=== PATIENT | male | born 1955 | race Caucasian/White ===

== ENCOUNTER 2023-04-03 13:41 | Emergency (ER) | payer OTHER, MEDICARE, SELFPAY ==
[2023-04-03 13:55] VITALS: BP 111/74; PULSE 86; RESP 26; TEMP 36.7; O2SAT 94; BMI 28.8
--- NOTE | 2023-04-03 14:08 | ECG_ITS ---
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1955 Requested By: Order Number: [id number] Reading MD: LOUISE MAURER Measurements Intervals [place] Rate: 92 P: 45 OK: 224 QRS: -87 QRSD: 134 T: 36 QT: 374 QTc: 424 Interpretive Statements 1100 Sinus rhythm 72030 Cannot rule out atrial flutter 2231 First degree AV block 2450 Right bundle branch block 2630 Left anterior fascicular block 5220 Possible left ventricular hypertrophy 6220 Possible left atrial enlargement Consistent with trifascicular block 0102 ARTIFACT PRESENT 9150 abnormal ECG No previous ECG available for comparison Electronically Signed On 04-03-2023 22:50:52 EDT by LOUISE MAURER
--- NOTE | 2023-04-03 14:08 | XR_ITS ---
The [address] [address] Patient Name: EVGENY DELGADO MRN: [id number] date: 1955 Sex: M Assigned Patient Location: ER Current Patient Location: ER Accession/Order Number: [id number] Exam Date: 04/03/2023 14:18 Report Date: 04/03/2023 14:58 At the request of: ANALY YOU Procedure: XR chest 1V EXAMINATION: XR chest 1V HISTORY: Shortness of breath COMPARISON: No relevant comparison available. TECHNIQUE: AP portable FINDINGS: LUNGS: No significant pulmonary parenchymal abnormalities. VASCULATURE: No increased pulmonary vasculature. PLEURA: No pneumothorax, effusion, or pleural thickening. Moderate elevation the right hemidiaphragm CARDIAC: No cardiomegaly or cardiac silhouette abnormality. MEDIASTINUM: No visible mass or adenopathy. BONES: No fracture or visible bone lesion. OTHER: Negative. IMPRESSION: Stable elevation of the right hemidiaphragm Clear lungs Electronically authenticated by: NAIMA VANEGAS Date: 04/03/2023 14:58
--- NOTE | 2023-04-03 14:11 | ED.SOB1 ---
Documented by User: RAUL Vincent 04/03/23 15:59 HPI - SOB/Dyspnea General Chief Complaint: Shortness of Breath/Dyspnea Stated Complaint: SHORTNESS OF BREATH Time Seen by Provider: 04/03/23 13:57 Source: patient and family Mode of arrival: walk-in Limitations: no limitations History of Present Illness HPI Narrative: Patient is a 68-year-old male history of muscular dystrophy, congestive heart failure who presents to the emergency department with his for a four day history of shortness of breath, chest congestion and sputum production. He was started on an antibiotic by his PCP without being seen in the office and has been taking doxycycline twice a day for last three days. He denies fevers, chest pain. He has had yellow sputum production with coughing and minimal soreness in the chest with coughing only. No sick contacts in the home. He states he has no appointment with a screwhead stoner and polisher in [place] at [facility] in two days for evaluation of his aortic valve which was recently diagnosed as severe stenosis. He had a heart catheterization last fall that was unremarkable. His feels his legs are swollen in the last several days. He takes 20 mg of Lasix daily. Related Data Home Medications Medication Instructions Recorded Confirmed allopurinol 300 mg tablet mg 04/03/23 aspirin 81 mg tablet,delayed mg 04/03/23 release atorvastatin 40 mg tablet mg 04/03/23 doxycycline hyclate 100 mg capsule mg 04/03/23 furosemide 20 mg tablet mg 04/03/23 glyburide micronized 3 mg tablet mg 04/03/23 metformin 500 mg tablet mg 04/03/23 metoprolol succinate 50 mg mg PO 04/03/23 tablet,extended release 24 hr omeprazole 20 mg capsule,delayed mg 04/03/23 release sacubitril 24 mg-valsartan 26 mg 1 tab PO BID 04/03/23 04/03/23 tablet (Entresto) Allergies Allergy/AdvReac Type Severity Reaction Status Date / Time acetaminophen [From Vicodin] Allergy Verified 04/03/23 14:14 Cephalosporins Allergy Verified 04/03/23 14:14 ciprofloxacin [From Cipro] Allergy Verified 04/03/23 14:14 hydrocodone [From Vicodin] Allergy Verified 04/03/23 14:14 levofloxacin Allergy Verified 04/03/23 14:14 oseltamivir [From Tamiflu] Allergy Verified 04/03/23 14:14 oxycodone Allergy Verified 04/03/23 14:14 Penicillins Allergy Verified 04/03/23 14:14 sitagliptin [From Januvia] Allergy Verified 04/03/23 14:14 Review of Systems ROS Constitutional Denies: fever or chills Cardiovascular Denies: chest pain Respiratory Reports: shortness of breath and cough Gastrointestinal Denies: nausea or vomiting Integumentary/Breast Denies: rash PFSH PFSH Social History Smoking status: Former smoker Exam Constitutional Vital Signs - 24 hr 04/03/23 13:55 Temperature 98.1 F Pulse Rate [Monitor] 86 Respiratory Rate 26 H Blood Pressure [Left Arm] 111/74 Pulse Oximetry 94 L Oxygen Delivery Method Room Air Common normals: no apparent distress Orientation/consciousness: Yes awake HENMT Common normals: normocephalic Respiratory Common normals: normal respiratory effort (Patient in no respiratory distress, breathing and speaking easily) Effort & inspection: able to speak in complete sentences (Scattered rhonchi, no wheezing) Cardio Common normals: regular rate and regular rhythm GI Common normals: soft to palpation and non-tender Extremity General: atrophy (Atrophy bilaterally of the legs with splints in place) and edema (1+ pitting pedal edema to the bilateral legs) Neuro Common normals: no focal motor deficits Psych Common normals: mental status grossly normal and thought process normal Course Vital Signs Vital signs: Vital Signs Temperature 98.1 F 04/03/23 13:55 Pulse Rate 86 04/03/23 13:55 Respiratory Rate 26 H 04/03/23 13:55 Blood Pressure 111/74 04/03/23 13:55 Pulse Oximetry 94 L 04/03/23 13:55 Oxygen Delivery Method Room Air 04/03/23 13:55 Temperature 98.1 F 04/03/23 13:55 Pulse Rate 86 04/03/23 13:55 Respiratory Rate 26 H 04/03/23 13:55 Blood Pressure 111/74 04/03/23 13:55 Pulse Oximetry 94 L 04/03/23 13:55 Oxygen Delivery Method Room Air 04/03/23 13:55 MDM - SOB/Dyspnea MDM Narrative Medical decision making narrative: Patient had no complaints of pain or nausea in the Emergency Room with stable oxygen saturation. Full cardiac workup with BNP, chest x-ray was ordered and the patient was not found to have any type of acute cardiopulmonary process, BUN is stable, improved from previous. BNP is normal. No EKG changes noted at this time. Patient was reevaluated by attending physician, chest x-ray shows no evidence of acute process, patient with no tachycardia or hypoxia in the Emergency Room. Was recommended that he increase his Lasix to 40 mg daily for the next three days and follow-up with cardiology as scheduled. Return to the emergency department if symptoms change or worsen Medical Records Attestation: I reviewed the patient's medical records. Lab Data Attestation: I reviewed the patient's lab results. Labs: Lab Results 04/03/23 04/03/23 Range/Units 14:10 14:30 WBC 9.8 (4.0-11.0) 10^3/uL RBC 4.69 L (4.70-6.10) 10^6/uL Hgb 15.1 (14.0-18.0) g/dL Hct 47.8 (42.0-54.0) % MCV 101.9 H (80.0-94.0) fL MCH 32.2 (25.9-34.0) pg MCHC 31.6 (29.9-35.2) g/dL RDW 13.6 (11.0-15.0) % Plt Count 195 (150-450) 10^3/uL MPV 10.5 (9.5-13.5) fL Neut % (Auto) 74.3 (43.0-75.0) % Lymph % (Auto) 18.2 L (20.5-60.0) % [place] % (Auto) 6.0 (1.7-12.0) % Eos % (Auto) 1.0 (0.9-7.0) % Baso % (Auto) 0.2 (0.2-2.0) % Neut # (Auto) 7.3 H (1.4-6.5) 10^3/uL Lymph # (Auto) 1.8 (1.2-3.8) 10^3/uL [place] # (Auto) 0.6 (0.3-0.8) 10^3/uL Eos # (Auto) 0.1 (0.0-0.7) 10^3/uL Baso # (Auto) 0.0 (0.0-0.1) 10^3/uL Abs Immat Gran (auto) 0.03 (0.00-0.03) 10^3/uL Imm/Tot Granulo (auto) 0.3 (0.0-0.5) % PT 10.7 (9.0-11.6) sec INR 1.01 APTT 29.0 (22.3-36.2) sec Sodium 139 (136-145) mmol/L Potassium 4.1 (3.5-5.1) mmol/L Chloride 98 (98-107) mmol/L Carbon Dioxide 33.2 H (21.0-32.0) mmol/L Anion Gap 11.9 BUN 28.0 H (7.0-18.0) mg/dL Creatinine 0.75 (0.70-1.30) mg/dL Est GFR ( Amer) >60 (>=60) Est GFR (Non-Af Amer) >60 (>=60) BUN/Creatinine Ratio 37.3 Glucose 176 H (74-106) mg/dL Calcium 9.2 (8.5-10.1) mg/dL Total Bilirubin 0.8 (0.2-1.0) mg/dL AST 21 (15-37) U/L ALT 33 (16-63) U/L Alkaline Phosphatase 112 (46-116) U/L Troponin I High Sens 8.7 (4.0-76.1) pg/mL NT-Pro-B Natriuret Pep 147.0 (<=900.0) pg/mL Total Protein 7.9 (6.4-8.2) g/dL Albumin 3.5 (3.4-5.0) g/dL Globulin 4.4 g/dL Albumin/Globulin Ratio 0.8 Urine Color Lt. yellow (YELLOW) Urine Clarity Clear (CLEAR) Urine pH 5.5 (5.0-9.0) Ur Specific [place] 1.020 (1.005-1.025) Urine Protein Negative (NEG/TRACE) mg/dL Urine Glucose (UA) Negative (NEGATIVE) mg/dL Urine Ketones Negative (NEGATIVE) mg/dL Urine Occult Blood Negative (NEGATIVE) Urine Nitrite Negative (NEGATIVE) Urine Bilirubin Negative (NEGATIVE) Urine Urobilinogen 0.2 (0.2-1.0) EU/dL Ur Leukocyte Esterase Negative (NEGATIVE) Imaging Data Chest x-ray: Attestation: I personally reviewed and interpreted this imaging study as follows: Radiologist's impression: EVGENY DELGADO MRN: [id number] date: 1955 Sex: M Assigned Patient Location: ER Current Patient Location: ER Accession/Order Number: [id number] Exam Date: 04/03/2023 14:18 Report Date: 04/03/2023 14:58 At the request of: ANALY YOU Procedure: XR chest 1V EXAMINATION: XR chest 1V HISTORY: Shortness of breath COMPARISON: No relevant comparison available. TECHNIQUE: AP portable FINDINGS: LUNGS: No significant pulmonary parenchymal abnormalities. VASCULATURE: No increased pulmonary vasculature. PLEURA: No pneumothorax, effusion, or pleural thickening. Moderate elevation the right hemidiaphragm CARDIAC: No cardiomegaly or cardiac silhouette abnormality. MEDIASTINUM: No visible mass or adenopathy. BONES: No fracture or visible bone lesion. OTHER: Negative. IMPRESSION: Stable elevation of the right hemidiaphragm Clear lungs Electronically authenticated by: NAIMA VANEGAS Date: 04/03/2023 14:58 ECG Data Attestation: I personally reviewed and interpreted this ECG as follows: (Normal sinus rhythm at a rate of ninety-two, first-degree AV block and no acute ST elevation. No ectopy. EKG compared to 06/25/22 with no change. EKG reviewed by attending physician) ECG interpretation date: 04/03/23 ECG interpretation time: 15:57 Discharge Plan Discharge Chief Complaint: Shortness of Breath/Dyspnea Clinical Impression: Acute dyspnea Time of Disposition Decision: 15:58 Condition: Good Prescriptions / Home Meds: No Action atorvastatin 40 mg tablet metformin 500 mg tablet doxycycline hyclate 100 mg capsule metoprolol succinate 50 mg tablet extended release 24 hr PO aspirin 81 mg tablet,delayed release (DR/EC) omeprazole 20 mg capsule,delayed release(DR/EC) allopurinol 300 mg tablet furosemide 20 mg tablet glyburide micronized 3 mg tablet Entresto 24-26 mg tablet 1 tab PO BID Additional Instructions: Take 40mg of Lasix for 3 days Stand Alone Forms: Portal Instructions Referrals: MARCO JOSEPH [Primary Care Provider] - 1 week Documented by User: Ian Ruelas 04/03/23 16:04 HPI - SOB/Dyspnea General Chief Complaint: Shortness of Breath/Dyspnea Stated Complaint: SHORTNESS OF BREATH Time Seen by Provider: 04/03/23 13:57 Related Data Home Medications Medication Instructions Recorded Confirmed allopurinol 300 mg tablet mg 04/03/23 aspirin 81 mg tablet,delayed mg 04/03/23 release atorvastatin 40 mg tablet mg 04/03/23 doxycycline hyclate 100 mg capsule mg 04/03/23 furosemide 20 mg tablet mg 04/03/23 glyburide micronized 3 mg tablet mg 04/03/23 metformin 500 mg tablet mg 04/03/23 metoprolol succinate 50 mg mg PO 04/03/23 tablet,extended release 24 hr omeprazole 20 mg capsule,delayed mg 04/03/23 release sacubitril 24 mg-valsartan 26 mg 1 tab PO BID 04/03/23 04/03/23 tablet (Entresto) Allergies Allergy/AdvReac Type Severity Reaction Status Date / Time acetaminophen [From Vicodin] Allergy Verified 04/03/23 14:14 Cephalosporins Allergy Verified 04/03/23 14:14 ciprofloxacin [From Cipro] Allergy Verified 04/03/23 14:14 hydrocodone [From Vicodin] Allergy Verified 04/03/23 14:14 levofloxacin Allergy Verified 04/03/23 14:14 oseltamivir [From Tamiflu] Allergy Verified 04/03/23 14:14 oxycodone Allergy Verified 04/03/23 14:14 Penicillins Allergy Verified 04/03/23 14:14 sitagliptin [From Januvia] Allergy Verified 04/03/23 14:14 PFSH PFSH Social History Smoking status: Former smoker Exam Constitutional Vital Signs - 24 hr 04/03/23 13:55 Temperature 98.1 F Pulse Rate [Monitor] 86 Respiratory Rate 26 H Blood Pressure [Left Arm] 111/74 Pulse Oximetry 94 L Oxygen Delivery Method Room Air Course Vital Signs Vital signs: Vital Signs Temperature 98.1 F 04/03/23 13:55 Pulse Rate 86 04/03/23 13:55 Respiratory Rate 26 H 04/03/23 13:55 Blood Pressure 111/74 04/03/23 13:55 Pulse Oximetry 94 L 04/03/23 13:55 Oxygen Delivery Method Room Air 04/03/23 13:55 Temperature 98.1 F 04/03/23 13:55 Pulse Rate 86 04/03/23 13:55 Respiratory Rate 26 H 04/03/23 13:55 Blood Pressure 111/74 04/03/23 13:55 Pulse Oximetry 94 L 04/03/23 13:55 Oxygen Delivery Method Room Air 04/03/23 13:55 MDM - SOB/Dyspnea MDM Narrative Medical decision making narrative: Patient had no complaints of pain or nausea in the Emergency Room with stable oxygen saturation. Full cardiac workup with BNP, chest x-ray was ordered and the patient was not found to have any type of acute cardiopulmonary process, BUN is stable, improved from previous. BNP is normal. No EKG changes noted at this time. Patient was reevaluated by attending physician, chest x-ray shows no evidence of acute process, patient with no tachycardia or hypoxia in the Emergency Room. Was recommended that he increase his Lasix to 40 mg daily for the next three days and follow-up with cardiology as scheduled. Return to the emergency department if symptoms change or worsen For this patient encounter I reviewed the mid-level provider?s documentation, medical decision-making and treatment plan, and I personally spent time with this patient. Shared APC visit, physician attestation: [id number]: This visit was performed by both a physician and an APC. I personally evaluated and examined the patient. I performed all aspects of MDM as documented. Lab Data Labs: Lab Results 04/03/23 04/03/23 Range/Units 14:10 14:30 WBC 9.8 (4.0-11.0) 10^3/uL RBC 4.69 L (4.70-6.10) 10^6/uL Hgb 15.1 (14.0-18.0) g/dL Hct 47.8 (42.0-54.0) % MCV 101.9 H (80.0-94.0) fL MCH 32.2 (25.9-34.0) pg MCHC 31.6 (29.9-35.2) g/dL RDW 13.6 (11.0-15.0) % Plt Count 195 (150-450) 10^3/uL MPV 10.5 (9.5-13.5) fL Neut % (Auto) 74.3 (43.0-75.0) % Lymph % (Auto) 18.2 L (20.5-60.0) % [place] % (Auto) 6.0 (1.7-12.0) % Eos % (Auto) 1.0 (0.9-7.0) % Baso % (Auto) 0.2 (0.2-2.0) % Neut # (Auto) 7.3 H (1.4-6.5) 10^3/uL Lymph # (Auto) 1.8 (1.2-3.8) 10^3/uL [place] # (Auto) 0.6 (0.3-0.8) 10^3/uL Eos # (Auto) 0.1 (0.0-0.7) 10^3/uL Baso # (Auto) 0.0 (0.0-0.1) 10^3/uL Abs Immat Gran (auto) 0.03 (0.00-0.03) 10^3/uL Imm/Tot Granulo (auto) 0.3 (0.0-0.5) % PT 10.7 (9.0-11.6) sec INR 1.01 APTT 29.0 (22.3-36.2) sec Sodium 139 (136-145) mmol/L Potassium 4.1 (3.5-5.1) mmol/L Chloride 98 (98-107) mmol/L Carbon Dioxide 33.2 H (21.0-32.0) mmol/L Anion Gap 11.9 BUN 28.0 H (7.0-18.0) mg/dL Creatinine 0.75 (0.70-1.30) mg/dL Est GFR ( Amer) >60 (>=60) Est GFR (Non-Af Amer) >60 (>=60) BUN/Creatinine Ratio 37.3 Glucose 176 H (74-106) mg/dL Calcium 9.2 (8.5-10.1) mg/dL Total Bilirubin 0.8 (0.2-1.0) mg/dL AST 21 (15-37) U/L ALT 33 (16-63) U/L Alkaline Phosphatase 112 (46-116) U/L Troponin I High Sens 8.7 (4.0-76.1) pg/mL NT-Pro-B Natriuret Pep 147.0 (<=900.0) pg/mL Total Protein 7.9 (6.4-8.2) g/dL Albumin 3.5 (3.4-5.0) g/dL Globulin 4.4 g/dL Albumin/Globulin Ratio 0.8 Urine Color Lt. yellow (YELLOW) Urine Clarity Clear (CLEAR) Urine pH 5.5 (5.0-9.0) Ur Specific [place] 1.020 (1.005-1.025) Urine Protein Negative (NEG/TRACE) mg/dL Urine Glucose (UA) Negative (NEGATIVE) mg/dL Urine Ketones Negative (NEGATIVE) mg/dL Urine Occult Blood Negative (NEGATIVE) Urine Nitrite Negative (NEGATIVE) Urine Bilirubin Negative (NEGATIVE) Urine Urobilinogen 0.2 (0.2-1.0) EU/dL Ur Leukocyte Esterase Negative (NEGATIVE) Discharge Plan Discharge Chief Complaint: Shortness of Breath/Dyspnea Clinical Impression: Acute dyspnea Time of Disposition Decision: 15:58 Condition: Good Prescriptions / Home Meds: No Action atorvastatin 40 mg tablet metformin 500 mg tablet doxycycline hyclate 100 mg capsule metoprolol succinate 50 mg tablet extended release 24 hr PO aspirin 81 mg tablet,delayed release (DR/EC) omeprazole 20 mg capsule,delayed release(DR/EC) allopurinol 300 mg tablet furosemide 20 mg tablet glyburide micronized 3 mg tablet Entresto 24-26 mg tablet 1 tab PO BID Additional Instructions: Take 40mg of Lasix for 3 days Stand Alone Forms: Portal Instructions Referrals: MARCO JOSEPH [Primary Care Provider] - 1 week
[2023-04-03 14:21] LABS: Basophils Percent Auto 0.2 % (0.2-2.0); Eosinophils Absolute Auto 0.1 10^3/uL (0.0-0.7); Hematocrit 47.8 % (42.0-54.0); Hemoglobin 15.1 g/dL (14.0-18.0); Immature Granulocytes Abs Auto 0.03 10^3/uL (0.00-0.03); Immature Granulocytes Pct Auto 0.3 % (0.0-0.5); Lymphocytes Absolute Auto 1.8 10^3/uL (1.2-3.8); Lymphocytes Percent Auto 18.2 % (20.5-60.0); Mean Corpuscular HGB Conc 31.6 g/dL (29.9-35.2); Mean Corpuscular Hemoglobin 32.2 pg (25.9-34.0); Mean Corpuscular Volume 101.9 fL (80.0-94.0); Mean Platelet Volume 10.5 fL (9.5-13.5); Monocytes Absolute Auto 0.6 10^3/uL (0.3-0.8); Neutrophils Absolute Auto 7.3 10^3/uL (1.4-6.5); Neutrophils Percent Auto 74.3 % (43.0-75.0); Platelet Count 195 10^3/uL (150-450); Red Blood Count 4.69 10^6/uL (4.70-6.10); Red Cell Distribution Width 13.6 % (11.0-15.0); White Blood Count 9.8 10^3/uL (4.0-11.0)
[2023-04-03 14:41] LABS: Alanine Aminotransferase 33 U/L (16-63); Albumin Globulin Ratio 0.8; Albumin Level 3.5 g/dL (3.4-5.0); Alkaline Phosphatase 112 U/L (46-116); Anion Gap 11.9; Aspartate Amino Transferase 21 U/L (15-37); BUN Creatinine Ratio 37.3; Bilirubin Total 0.8 mg/dL (0.2-1.0); Calcium 9.2 mg/dL (8.5-10.1); Carbon Dioxide 33.2 mmol/L (21.0-32.0); Chloride 98 mmol/L (98-107); Estimated GFR (African America >60 (>=60); Estimated GFR (Non-African Ame >60 (>=60); Globulin 4.4 g/dL; Glucose 176 mg/dL (74-106); Potassium 4.1 mmol/L (3.5-5.1); Sodium 139 mmol/L (136-145); Total Protein 7.9 g/dL (6.4-8.2); Troponin I High Sensitivity 8.7 pg/mL (4.0-76.1)
[2023-04-03 14:47] LABS: Bilirubin Urine NEGATIVE (NEGATIVE); Blood Urine NEGATIVE (NEGATIVE); Clarity Urine CLEAR (CLEAR); Color Urine LT. YELLOW (YELLOW); Glucose Urine UA NEGATIVE (NEGATIVE); Ketones Urine NEGATIVE (NEGATIVE); Leukocyte Esterase Urine NEGATIVE (NEGATIVE); Nitrite Urine NEGATIVE (NEGATIVE); Protein Urine NEGATIVE (NEG/TRACE); Urobilinogen Urine 0.2 EU/dL (0.2-1.0); pH Urine 5.5 (5.0-9.0)
[2023-04-03 14:51] LABS: Urine Microscopic Indicated NO
[2023-04-03 14:55] LABS: INR 1.01; Prothrombin Time 10.7 sec (9.0-11.6)
== END 2023-04-03 16:28 | disposition home or self-care (01) ==
PROVIDERS: Physician Assistant; Emergency Provider Emergency Medicine; PCP Family Medicine
DX: R06.00 Dyspnea, unspecified (principal); G71.00 Muscular dystrophy, unspecified; I50.9 Heart failure, unspecified; I35.0 Nonrheumatic aortic (valve) stenosis; Z79.899 Other long term (current) drug therapy; Z79.82 Long term (current) use of aspirin; Z79.84 Long term (current) use of oral hypoglycemic drugs; Z87.891 Personal history of nicotine dependence
CPT/HCPCS: 36415; 71045; 80053; 81003; 83880; 84484; 85025; 85610; 85730; 93005; 99285

== ENCOUNTER 2023-04-26 16:21 | Outpatient (OUT) | payer OTHER, MEDICARE, SELFPAY ==
--- NOTE | 2023-04-26 16:23 | XR_ITS ---
The [address] [address] Patient Name: EVGENY DELGADO MRN: [id number] date: 1955 Sex: M Assigned Patient Location: RAD Current Patient Location: RAD Accession/Order Number: [id number] Exam Date: 04/26/2023 16:30 Report Date: 04/26/2023 16:44 At the request of: NON-STAFF PHYSICIAN Procedure: XR chest 2V EXAM: XR chest 2V HISTORY: Decreased breath sounds R06.89 COMPARISON: 06/25/2022 TECHNIQUE: Upright PA and lateral chest x-ray FINDINGS: The heart is not enlarged and the vasculature is not distended. A small amount of atelectasis or scarring is seen at the left lung base. There is been interval clearing of the right lung base. No acute infiltrate, effusion or pneumothorax is identified. The osseous structures are grossly intact. XR/XR chest 2V IMPRESSION: No apparent acute infiltrate or evidence of cardiac decompensation. There has been interval improvement of aeration at the right lung base, and interval development of linear atelectasis or scarring at the left lung base. Electronically authenticated by: ASHKAN SANCHEZ Date: 04/26/2023 16:44
== END 2023-04-26 16:22 | disposition home or self-care (01) ==
LOC: RAD 16:21
PROVIDERS: PCP Family Medicine
DX: R06.89 Other abnormalities of breathing (principal)
CPT/HCPCS: 71046

== ENCOUNTER 2023-05-26 13:06 | Outpatient (OUT) | payer OTHER, MEDICARE, SELFPAY ==
--- NOTE | 2023-05-26 13:12 | FL_ITS ---
The [address] [address] Patient Name: EVGENY DELGADO MRN: [id number] date: 1955 Sex: M [facility] Accession/Order Number: [id number] Exam Date: 05/26/2023 13:20 Report Date: 05/26/2023 15:04 At the request of: FIDE MOORE Procedure: FL fluoroscopy <1hr EXAMINATION: FL fluoroscopy <1hr HISTORY: J98.6 ; elevated right hemidiaphragm, decreased breath sounds COMPARISON: XR chest 04/26/2023 FLUOROSCOPY TIME: Fluoro time measures 35 seconds and 1 images were obtained. TECHNIQUE: Standard level fluoroscopic mode of operation utilized. FINDINGS: Very little movement of either diaphragm during rapid inspiration (sniff), but there does appear to be abnormal paradoxical movement of the right diaphragm. FL/FL fluoroscopy <1hr IMPRESSION: 1. Very little movement of either diaphragm, but suspect abnormal movement of right diaphragm which would suggest paralysis. Electronically authenticated by: MARCO CHA Date: 05/26/2023 15:04
== END 2023-05-26 13:07 | disposition home or self-care (01) ==
LOC: FL 13:07
PROVIDERS: PCP Family Medicine; Visit Provider Internal Medicine
DX: J98.6 Disorders of diaphragm (principal)
CPT/HCPCS: 76000

== ENCOUNTER 2023-05-30 11:09 | Outpatient (OUT) | payer OTHER, MEDICARE, SELFPAY ==
--- NOTE | 2023-05-18 | RT_ITS ---
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 Findings were considered accurate and reproducible. Both pre- and post-bronchodilator values utilized for spirometry. Spirometry and DLCO were done at [place] [facility] in [facility] 04/19/2023 and are available for comparison. Spirometry (based on pre-bronchodilator values): -FEV1/FVC: Normal @ 88% -FEV1: Moderately reduced @ 54% (1.69L) -FVC: Very severely reduced @ 46% (1.92L) -There is no significant bronchodilator response. -MVV: Reduced @ 48% Lung volumes by plethysmography: -RV: Normal @ 87% -TLC: Severely reduced @ 58% Diffusion capacity: -DLCO: Severe reduction @ 47% when corrected for Hb 15.1g/dL Flow-volume loop: -Severe restrictive pattern Comparison from 04/19/2023 @ [place]: -Spirometry: FEV1 40% (1.34L) and FVC 37% (1.64L) -DLCO: 46% Impressions: -Severe restriction on spirometry, confirmed with severely reduced TLC. Reduced MVV suggests neuromuscular fatigue. Severe diffusion impairment. When compared to prior spirometry 1 month ago, there is mild improvement; DLCO unchanged. Overall study would correlate with history of muscular dystrophy - reduced DLCO may indicate concomitant cardiopulmonary vascular or interstitial lung component. Clinical correlation required. Electronically Signed On 05-18-2023 15:27:56 EDT by Nelson Church
[2023-05-18 13:20] LABS: ABG PCO2 49.9 mmHg (35.0-45.0); Allen Test POSITIVE (POSITIVE); HCO3 ABG 32.5 mmol/L (22.0-26.0); O2 Mode RA; Oxygen Saturation ABG 91.1 %; PO2 ABG 59.6 mmHg (80.0-100.0); Puncture Site RR; pH ABG 7.422 (7.350-7.450)
[2023-05-18 14:20] VITALS: PULSE 92; O2SAT 96
[2023-05-18] MEDS: ALBUTEROL SULFATE 2.5 MG/3 ML VIAL NEB IH (14:20)
== END 2023-05-30 11:10 | disposition home or self-care (01) ==
LOC: CARD 11:09
PROVIDERS: PCP Family Medicine; Visit Provider Internal Medicine
DX: J96.12 Chronic respiratory failure with hypercapnia (principal); J96.11 Chronic respiratory failure with hypoxia; R06.02 Shortness of breath; G71.02 Facioscapulohumeral muscular dystrophy
CPT/HCPCS: 36600; 82805; 94060; 94726; 94729

== ENCOUNTER 2023-11-07 14:22 | Outpatient (OUT) | payer OTHER, MEDICARE, SELFPAY ==
[2023-11-07 15:28] LABS: Estimated Average Glucose 180 mg/dL; Glycohemoglobin A1C 7.9 % (4.5-6.2)
== END 2023-11-07 14:23 | disposition home or self-care (01) ==
LOC: LAB 14:22
PROVIDERS: PCP Family Medicine; Visit Provider Family Medicine
DX: E11.8 Type 2 diabetes mellitus with unspecified complications (principal)
CPT/HCPCS: 36415; 83036

== ENCOUNTER 2024-03-07 10:42 | Outpatient (OUT) | payer OTHER, MEDICARE, SELFPAY ==
[2024-03-07 12:21] LABS: Estimated Average Glucose 183 mg/dL
== END 2024-03-07 10:43 | disposition home or self-care (01) ==
LOC: LAB 10:42
PROVIDERS: PCP Family Medicine; Visit Provider Family Medicine
DX: E11.8 Type 2 diabetes mellitus with unspecified complications (principal)
CPT/HCPCS: 36415; 83036

== ENCOUNTER 2024-07-17 10:43 | Outpatient (OUT) | payer OTHER, MEDICARE, SELFPAY ==
--- OUTSIDE RECORDS SUMMARY | 2024-07-17 11:00 | XMS_ITS | CCD ---
Author Organization [facility] Care Team Providers Care Well Puller Name Role Phone Unavailable Primary Care Provider UnavailPAYAL Garcia Attending Unavailable MARCO BOSCH Primary Care Unavailable GEORGE NIETO Referring Unavailable ANDI LICEA Admitting Unavailable DO Marco Bosch Primary Care Provider MD George Nieto Attending Provider HIRO, DR LARA Primary Care Unavailable GAURAV, DR FABIAN Parada Consulting Unavailable LAMBERTO ., DR PLEITEZ Attending Unavailable LAMBERTO ., DR PLEITEZ Admitting Unavailable HOY ., DR PLEITEZ Consulting Unavailable GUERITA MAJOR Consulting Unavailable FALVO, JULIOCESAR Consulting Unavailable HIRO, DR LARA Primary Care Unavailable AYNA, DR CAROL Alcaraz Attending Unavailable KWAME ., DR GEORGE Angel Consulting Unavailable ANYA, DR CAROL Alcaraz Admitting Unavailable STARLA, DR MARCO Parada Consulting Unavailable ANYA, DR CAROL Alcaraz Consulting Unavailable SYLVIA ., DR SANCHEZ Consulting Unavailable DEVYN AGUILAR Consulting Unavailable BETHANY SHAW Consulting Unavailable HIRO, DR LARA Primary Care Unavailable STEPHEN KENNEDY Consulting Unavailable STEPHEN KENNEDY Attending Unavailable STEPHEN KENNEDY Admitting Unavailable HIRO, DR LARA Primary Care Unavailable MOHAN CAM Consulting Unavailable MOHAN CAM Attending Unavailable MOHAN CAM Admitting Unavailable HIRO, DR LARA Attending Unavailable HIRO, DR LARA Admitting Unavailable HIRO, DR LARA Primary Care Unavailable OKLAUNION, DR NAIMA Resendiz Consulting Unavailable HIRO, DR LARA Consulting Unavailable HIRO, DR LARA Primary Care Unavailable MISC, DR RYAN Admitting Unavailable MISC, DR RYAN Consulting Unavailable MISC, DR RYAN Attending Unavailable HIRO, DR LARA Primary Care Unavailable HIRO, DR LARA Consulting Unavailable IHRO, DR LARA Attending Unavailable HIRO, DR LARA Admitting Unavailable HIRO, DR LARA Primary Care Unavailable HIRO, DR LARA Consulting Unavailable HIRO, DR LARA Attending Unavailable HIRO, DR LARA Admitting Unavailable HIRO, DR LARA Primary Care Unavailable MOUKARBEL, DR WHITE Admitting Unavailable MOUKARBEL, DR WHITE Consulting Unavailable MOUKARBEL, DR WHITE Attending Unavailable HIRO, DR LARA Consulting Unavailable HIRO, DR LARA Attending Unavailable HIRO, DR LARA Admitting Unavailable HIRO, DR LARA Primary Care Unavailable DORINA, MOHAN Attending Unavailable GISELLE, STEPHEN Attending Unavailable RENE, CHRISTOPHER Attending Unavailable STEPHEN KENNEDY Attending Unavailable DORINA, MOHAN Admitting Unavailable DORINA, MOHAN Attending Unavailable DORINA, MOHAN Referring Unavailable DORINA, MOHAN Referring Unavailable HIRO, MARCO Primary Care Unavailable LOUISA CAICEDO Referring Unavailable HIRO, MARCO Primary Care Unavailable KIRILL, CHUCHO Referring Unavailable HIRO, MARCO Primary Care Unavailable KVNG ALEMAN Consulting Unavailable OFELIA, RATIKA Admitting Unavailable OFELIA, RATIKA Attending Unavailable MONE CASILLAS Consulting Unavailable BALJINDER HUNG Consulting Unavailable CODY BOURNE Consulting Unavailable CHARLY TOWNSEND Consulting Unavailable SUMANTH PERKINS Consulting Unavailable OFELIA, RATIKA Consulting Unavailable HUSEINI, LOO Consulting Unavailable JESSIE MOHYODIT Admitting Unavailable ASHANTI BENITEZ Attending Unavailable HIRO, MARCO Primary Care Unavailable NELLY MELGOZA Consulting Unavaila ble CHARLY TOWNSEND Consulting Unavailable KIRILL, AMTHERESER Consulting Unavailable Hiro, Marco Primary Care Unavailable Triston Perez Attending Unavailable Triston Perez Admitting Unavailable Marco Bosch Attending Unavailable Marco Bosch P Primary Care Unavailable Hiro, Marco P Attending Unavailable Hiro, Marco P Primary Care Unavailable Hiro, Marco P Primary Care Unavailable Hiro, Marco P Attending Unavailable Hiro, Marco P Attending Unavailable Hiro, Marco P Primary Care Unavailable Hiro, Marco P Attending Unavailable Hiro, Marco P Primary Care Unavailable Hiro, Marco P Attending Unavailable Hiro, Marco P Primary Care Unavailable Allergies Allergy Classification Reported Allergen(s) Allergy Type Date of Onset Reaction(s) Facility (2 sources) Acetaminophen / HYDROcodone; Translations: [HYDROCODONE-ACETAM INOPHEN] Drug Allergy 5 Unknown [facility] Work Phone: (3 sources) acetohydroxamic acid Drug Allergy 3 Unknown [facility] Work Phone: [phone] (3 sources) Cephalosporins (Antibiotic); Translations: [CEPHALOSPORINS] Drug Allergy 3 Shortness of Breath [facility] Work Phone: [phone] (1 source) cyclobenzaprine Drug Allergy 7 Unknown [facility] Work Phone: [phone] (2 sources) levoFLOXacin; Translations: [LEVOFLOXACIN] Drug Allergy 7 Hives [facility] Work Phone: [phone] (2 sources) loracarbef; Translations: [LORACARBEF] Drug Allergy 3 Shortness of Breath [facility] Work Phone: [phone] (2 sources) Oseltamivir; Translations: [OSELTAMIVIR] Drug Allergy 7 Unknown [facility] Work Phone: [phone] (2 sources) oxyCODONE; Translations: [OXYCODONE] Drug Allergy 3 Shortness of Breath [facility] Work Phone: [phone] (3 sources) Penicillins; Translations: [PENICILLINS] Drug Allergy 3 Shortness of Breath [facility] Work Phone: [phone] (2 sources) SITagliptin; Translations: [SITAGLIPTIN] Drug Allergy 7 [facility] Work Phone: [phone] (1 source) traMADol Drug Allergy 7 Other: See Comments [facility] Work Phone: [phone] (2 sources) Acetaminophen / HYDROcodone Drug Allergy 5 [facility] Repository (2 sources) Cephalosporins (Antibiotic) Drug allergy (disorder) 3 [facility] Repository (1 source) Ciprofloxacin Drug Allergy 2 [facility] Repository (2 sources) guaiFENesin; Translations: [Mucinex] Drug Allergy 2 [facility] Repository (2 sources) levoFLOXacin Drug Allergy 2 [facility] Repository (2 sources) loracarbef Drug Allergy 3 [facility] Repository (2 sources) oxyCODONE Drug Allergy 3 [facility] Repository (2 sources) Penicillins Drug allergy (disorder) 3 [facility] Repository (3 sources) SITagliptin; Translations: [Januvia] Drug Allergy 1 [facility] Repository (1 source) Acetaminophen Drug Allergy 3 [facility] Repository (1 source) acetoHEXAMIDE Drug Allergy 3 [facility] Repository (1 source) Cephalosporins (Antibiotic) Drug allergy (disorder) 3 [facility] Repository (1 source) cyclobenzaprine Drug Allergy 3 [facility] Repository (1 source) guaiFENesin Drug Allergy 3 [facility] Repository (2 sources) hydroCHLOROthiazide ; Translations: [hydroCHLOROthiazid e] Drug Allergy 3 [facility] Repository (1 source) HYDROcodone Drug Allergy 3 [facility] Repository (1 source) levoFLOXacin Drug Allergy 3 [facility] Repository (1 source) loracarbef Drug Allergy 3 [facility] Repository (1 source) Oseltamivir Drug Allergy 3 [facility] Repository (1 source) oxyCODONE Drug Allergy 3 [facility] Repository (1 source) Penicillins Drug allergy (disorder) 3 [facility] Repository (1 source) SITagliptin Drug Allergy 3 [facility] Repository (1 source) traMADol Drug Allergy 3 [facility] Repository (1 source) cyclobenzaprine; Translations: [Flexeril] Drug Allergy [facility] Repository (1 source) levoFLOXacin; Translations: [Levaquin] Drug Allergy [facility] Repository (1 source) Oseltamivir; Translations: [Tamiflu] Drug Allergy [facility] Repository (1 source) oxyCODONE; Translations: [OxyCODONE Hydrochloride] Drug Allergy [facility] Repository (1 source) traMADol; Translations: [Ultram] Drug Allergy [facility] Repository Medications Current Medications Medication Drug Class(es) Dates Sig (Normalized) Sig (Original) azelastine hydrochloride 0.137 mg/actuat metered dose nasal spray (1 source) Histamine-1 Receptor Antagonist Start: 02-09-2022 End: 02-16-2022 take 1 spray(s) nasal route twice daily azelastine (ASTELIN) 0.1% nasal spray Indications: URI, acute Use 1 [place] in each nostril twice daily for 7 days. 30 mL 0 02/09/2022 02/16/2022 Active Comment on above: Use 1 [place] in each nostril twice daily for 7 days. fluticasone propionate 0.05 mg/actuat metered dose nasal spray (1 source) Corticosteroid Start: 02-09-2022 End: 2022 take 1 spray(s) nasal route once daily at bedtime fluticasone (FLONASE) 50 mcg/actuation nasal spray Indications: URI, acute Use 1 [place] in each nostril daily at bedtime for 10 days. 9.9 mL 0 02/09/2022 2022 Active Comment on above: Use 1 [place] in each nostril daily at bedtime for 10 days. Completed/Discontinued Medications Medication Drug Class(es) Dates Sig (Normalized) Sig (Original) allopurinol 300 mg oral tablet (1 source) Xanthine Oxidase Inhibitor Start: 12-01-2021 allopurinol (ZYLOPRIM) 300 mg tablet aspirin 81 mg delayed release oral tablet (1 source) Platelet Aggregation Inhibitor, Nonsteroidal Anti-inflammatory Drug aspirin, enteric coated (ASPIRIN, ENTERIC COATED) 81 mg EC tablet Take 81 mg by mouth. 0 Active Comment on above: Take 81 mg by mouth. benzonatate 100 mg oral capsule (1 source) Non-narcotic Antitussive Start: 12-20-2021 take 1-2 capsules by mouth three times daily as needed for cough benzonatate (TESSALON PERLES) 100 mg capsule Indications: Acute respiratory infection Take 1-2 capsules by mouth three times daily as needed for cough. 20 capsule 0 12/20/2021 Active Comment on above: Take 1-2 capsules by mouth three times daily as needed for cough. chondroitin sulfates 400 mg / glucosamine hydrochloride 500 mg oral tablet (1 source) Glucosamine-Clark d roitin 500-400 mg tablet Take 1 tablet by mouth. 0 Active Comment on above: Take 1 tablet by liz th. Dextromethorphan / guaiFENesin (1 source) Uncompetitive S-srqnoh-W-aspartat e Receptor Antagonist, Sigma-1 Agonist Start: 02-09-2022 DM-GG/chlorph-DM- acetaminophen (CORICIDIN HBP DAY-NIGHT) 10-200 mg(dy)/2 -15-500 mg(nt) TCSq Indications: cough , nasal congestion , rhinorrhea Per box instructions 0 02/09/2022 Active Comment on above: Per box instructions glyBURIDE 1.5 mg oral tablet (1 source) Sulfonylurea glyBURIDE micronized (GLYNASE) 1.5 mg tablet Take 1.5 mg by mouth. 0 Active Comment on above: Take 1.5 mg by mouth . losartan potassium 50 mg oral tablet (1 source) Angiotensin 2 Receptor Trish Start: 12-06-2021 losartan (COZAAR) 50 mg tablet metFORMIN hydrochloride 500 mg oral tablet (1 source) Biguanide Start: 12-13-2021 metFORMIN (GLUCOPHAGE) 500 mg tablet Multivitamin capsule (1 source) take 1 capsule by mouth once daily Multivitamin capsule Take 1 capsule by mouth once daily. 0 Active Comment on above: Take 1 capsule by mo [facility] once daily. omeprazole 20 mg delayed release oral capsule (1 source) Proton Pump Inhibitor Start: 12-09-2021 omeprazole (PRILOSEC) 20 mg capsule potassium citrate 10 meq extended release oral tablet (1 source) Start: 10-31-2021 potassium citrate ER (UROCIT-K) 10 mEq (1,080 mg) simvastatin 40 mg oral tablet (1 source) HMG-CoA Reductase Inhibitor Start: 12-06-2021 simvastatin (ZOCOR) 40 mg tablet sulfamethoxazole 800 mg / trimethoprim 160 mg oral tablet (1 source) Dihydrofolate Reductase Inhibitor Antibacterial, Sulfonamide Antimicrobial Start: 10-27-2021 take 1 tablet by mouth twice daily sulfamethoxazole- trimethoprim (BACTRIM DS,SEPTRA DS) 800-160 mg per tablet Take 1 tablet by mouth twice daily. 0 10/27/2021 Active Comment on above: Take 1 tablet by liz th twice daily. Problems Active Problems Problem Classification Problem Date Documented Date Episodic/Chronic Acute myocardial infarction (1 source) Non-ST elevation (NSTEMI) myocardial infarction; Translations: [Non-ST elevation (NSTEMI) myocardial infarction] Onset: 3 Chronic Anxiety disorders (1 source) Anxiety disorder, unspecified; Translations: [Anxiety disorder, unspecified] Onset: 3 Chronic Cancer of prostate (1 source) Malignant tumor of prostate; Translations: [Malignant neoplasm of prostate] Onset: 7 12-20-2021 Chronic Cardiac and circulatory congenital anomalies (3 sources) Congenital insufficiency of aortic valve; Translations: [CONGENITAL INSUFFICNCY AORTIC VALVE] Onset: 2 Chronic Cardiac dysrhythmias (3 sources) Unspecified atrial fibrillation; Translations: [Ventricular tachycardia] Onset: 2 Chronic Congestive heart failure; nonhypertensive (10 sources) Chronic systolic (congestive) heart failure; Translations: [Chronic combined systolic (congestive) and diastolic (congestive) heart failure] Onset: 2 Chronic Coronary atherosclerosis and other heart disease (4 sources) Atherosclerotic heart disease of [place] coronary artery without angina pectoris; Translations: [Coronary arteriosclerosis] Onset: 3 Chronic Diabetes mellitus without complication (6 sources) Type 2 diabetes mellitus; Translations: [Type 2 diabetes mellitus without complications] Onset: 1 12-20-2021 Chronic Diseases of white blood cells (1 source) Elevated white blood cell count, unspecified; Translations: [ELEVATED WHITE BLOOD CELL COUNT UNS] Onset: 2 Chronic Disorders of lipid metabolism (1 source) Pure hypercholesterolemia; Translations: [Pure hypercholesterolemia, unspecified] Onset: 1 12-20-2021 Chronic Esophageal disorders (2 sources) Gastroesophageal reflux disease; Translations: [Gastro-esophageal reflux disease without esophagitis] Onset: 1 12-20-2021 Chronic Essential hypertension (5 sources) Essential hypertension; Translations: [Essential (primary) hypertension] Onset: 1 12-20-2021 Chronic Heart valve disorders (6 sources) Nonrheumatic aortic (valve) stenosis; Translations: [Rheumatic disorders of both mitral and aortic valves] Onset: 2 Chronic Hypertension with complications and secondary hypertension (4 sources) Hypertensive heart disease with heart failure; Translations: [HTN HEART DISEASE W/HEART FAIL] Onset: 2 Chronic Other lower respiratory disease (5 sources) Dyspnea, unspecified; Translations: [DYSPNEA UNSPECIFIED] Onset: 2 Episodic Other lower respiratory disease (1 source) Other abnormalities of breathing; Translations: [Other abnormalities of breathing] Onset: 3 Episodic Other lower respiratory disease (1 source) Shortness of breath; Translations: [Shortness of breath] Onset: 3 Episodic Other nervous system disorders (1 source) Facioscapulohumeral muscular dystrophy; 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] Onset: 1 12-20-2021 Chronic Other nervous system disorders (2 sources) Muscular dystrophy, unspecified; Translations: [MUSCULAR DYSTROPHY UNSPECIFIED] Onset: 2 Chronic Other nervous system disorders (1 source) Facioscapulohumeral muscular dystrophy; 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 MUSC DYSTROPHY] Onset: 2 Chronic Other nutritional; endocrine; and metabolic disorders (1 source) Hypomagnesemia; Translations: [Hypomagnesemia] Onset: 3 Chronic Other upper respiratory infections (1 source) Acute upper respiratory infection; Translations: [Acute upper respiratory infection, unspecified] Episodic Heidi-; endo-; and myocarditis; cardiomyopathy (except that caused by tuberculosis or sexually transmitted disease) (4 sources) Other cardiomyopathies; Translations: [Dilated cardiomyopathy] Onset: 2 Chronic Residual codes; unclassified (1 source) Localized edema; Translations: [Localized edema] Onset: 3 Episodic Respiratory failure; insufficiency; arrest (adult) (3 sources) Chronic respiratory failure, unspecified whether with hypoxia or hypercapnia; Translations: [Chronic respiratory failure with hypoxia] Onset: 3 Chronic Transient cerebral ischemia (1 source) Cerebral ischemia; Translations: [Transient cerebral ischemic attack, unspecified] Onset: 1 12-20-2021 Chronic Unclassified (1 source) CONTACT W/AND (SUSP) EXPOS COVID-19; Translations: [CONTACT W/AND (SUSP) EXPOS COVID-19] Onset: 2 Unclassified (1 source) VENTRICULAR TACHYCARDIA UNSPECIFIED; Translations: [VENTRICULAR TACHYCARDIA UNSPECIFIED] Onset: 2 Unclassified (1 source) PERSONAL HISTORY OF COVID-19; Translations: [PERSONAL HISTORY OF COVID-19] Onset: 2 Unclassified (3 sources) COUGH, UNSPECIFIED; Translations: [COUGH, UNSPECIFIED] Onset: 2 Unclassified (2 sources) Valve Disorder; Translations: [Valve Disorder] Onset: 3 Unclassified (1 source) Other ventricular tachycardia; Translations: [Other ventricular tachycardia] Onset: 2 Past or Other Problems Problem Classification Problem Date Documented Da te Episodic/Chronic Acute and unspecified renal failure (1 source) Acute kidney failure, unspecified; Translations: [ACUTE KIDNEY FAILURE UNSPECIFIED] Onset: 07-01-2022 Episodic Blindness and vision defects (1 source) Diplopia; Translations: [Diplopia] Onset: 05-23-2021 12-20-2021 Episodic Calculus of urinary tract (1 source) Kidney stone; Translations: [Calculus of kidney] Onset: 12-12-2016 12-20-2021 Episodic Fluid and electrolyte disorders (11 sources) Dehydration; Translations: [Hypo-osmolality and hyponatremia] Onset: 05-10-2022 Episodic Other aftercare (1 source) Long-term current use of aspirin; Translations: [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 aspirin] Onset: 05-25-2021 12-20-2021 Episodic Other aftercare (1 source) Long-term current use of oral hypoglycemic medication; Translations: [[facility] (current) use of oral hypoglycemic drugs] Onset: 05-25-2021 12-20-2021 Episodic Other aftercare (1 source) Long-term current use of drug therapy; Translations: [Other [facility] (current) drug therapy] Onset: 05-25-2021 12-20-2021 Episodic Other aftercare (1 source) [facility] (current) use of aspirin; Translations: [BACON SLICER CURRENT USE OF ASPIRIN] Onset: 07-01-2022 Episodic Other aftercare (1 source) [facility] (current) use of insulin; Translations: [JAIL CURRENT USE OF INSULIN] Onset: 07-01-2022 Episodic Other aftercare (1 source) 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 oral hypoglycemic drugs; Translations: [JAIL USE ORAL HYPOGLYCEMIC DX] Onset: 07-01-2022 Episodic Other aftercare (1 source) Other middle or intermediate school principal (current) drug therapy; Translations: [OTH BACON SLICER CURRENT DRUG THERAPY] Onset: 07-01-2022 Episodic Other circulatory disease (1 source) Hypotension, unspecified; Translations: [HYPOTENSION UNSPECIFIED] Onset: 05-25-2022 Episodic Other lower respiratory disease (1 source) Disorders of diaphragm; Translations: [DISORDERS OF DIAPHRAGM] Onset: 05-25-2022 Episodic Other screening for suspected conditions (not mental disorders or infectious disease) (1 source) Raised prostate specific antigen; Translations: [Elevated prostate specific antigen [PSA]] Onset: 03-07-2018 12-20-2021 Episodic Respiratory failure; insufficiency; arrest (adult) (1 source) Acute respiratory failure with hypoxia; Translations: [ACUTE RESPIRATORY FAIL W/HYPOXIA] Onset: 05-25-2022 Episodic Screening and history of mental health and substance abuse codes (2 sources) H/O: drug dependency; Translations: [Personal history of nicotine dependence] Onset: 05-25-2021 12-20-2021 Episodic Unclassified (1 source) COUGH, UNSPECIFIED; Translations: [COUGH, UNSPECIFIED] Onset: 06-22-2022 Unclassified (1 source) Other ventricular tachycardia; Translations: [Other ventricular tachycardia] Onset: 09-01-2022 Results Test Name Value Interpretation Reference Range Facility Patient Provided Health Data on 04-26-2024 Patient Provided Health Data [id number]#[id number] [facility] - Other Lab [facility] - Other Lab Results [id number] [facility] Outside Records [id number] [facility] - Other Lab Results [id number]. 00OTGTIFF Normal [facility] 09-13-2023 Outside Records [id number]#1.0 0[facility] B-Type Natriuretic Peptideon 06-20-2023 Natriuretic peptide B (Bld) [Mass/Vol] 14.0 pg/mL Normal 5-100 [facility] Comment on above: Result Comment: PERF ORMED BY: [place] [address] PATHOLOGIST ROLLER SETTER LUIS KHANNA M.D. Performed By: #### P TT, BNP, BMP, PT, HS TROP, HEPATIC, CK, CBC #### [facility] [address] [place] [address] Basic Metabolic Panelon Anion gap [Moles/Vol] 11.4 mmol/L Normal 6.0-15.0 [facility] Comment on above: Performed By: #### P TT, BNP, BMP, PT, HS TROP, HEPATIC, CK, CBC #### [facility] [address] [place] [address] Calcium [Mass/Vol] 9.3 mg/dL Normal 8.6-10.[address] [facility] Comment on above: Performed By: #### P TT, BNP, BMP, PT, HS TROP, HEPATIC, CK, CBC #### [facility] [address] [place] [address] [place] Chloride [Moles/Vol] 97 mmol/L Low 98-107 [facility] Comment on above: Performed By: #### P TT, BNP, BMP, PT, HS TROP, HEPATIC, CK, CBC #### [address] CO2 [Moles/Vol] 35.5 mmol/L High 21.0-31.0 [facility] Comment on above: Performed By: #### P TT, BNP, BMP, PT, HS TROP, HEPATIC, CK, CBC #### [facility] [address] Creatinine [Mass/Vol] 0.46 mg/dL Low 0.70-1.30 [facility] Comment on above: Performed By: #### P TT, BNP, BMP, PT, HS TROP, HEPATIC, CK, CBC #### [facility] [address] Creatinine Clr Calc Pharmacy 95.70 [facility] Comment on above: Result Comment: PERF ORMED BY: [place] [address] PATHOLOGIST ROLLER SETTER LUIS KHANNA M.D. Performed By: #### P TT, BNP, BMP, PT, HS TROP, HEPATIC, CK, CBC #### [address] GFR/1.73 sq M.predicted MDRD (S/P/Bld) [Vol rate/Area] mL/min/{1.73_m2} [facility] Comment on above: Performed By: #### P TT, BNP, BMP, PT, HS TROP, HEPATIC, CK, CBC #### [address] Glucose [Mass/Vol] 225 mg/dL High 70-[address] [facility] Comment on above: Result Comment: [place] Glucose Reference Range is dependent on time and content of last meal. Glucose of more than 200 mg/dL in a nonstressed, ambulatory subject supports the diagnosis of Diabetes Mellitus. ADA recommended reference range Performed By: #### P TT, BNP, BMP, PT, HS TROP, HEPATIC, CK, CBC #### [facility] [address] Potassium [Moles/Vol] 3.9 mmol/L Normal 3.5-5.1 [facility] Comment on above: Performed By: #### P TT, BNP, BMP, PT, HS TROP, HEPATIC, CK, CBC #### [address] Sodium [Moles/Vol] 140 mmol/L Normal 136-[address] [facility] Comment on above: Performed By: #### P TT, BNP, BMP, PT, HS TROP, HEPATIC, CK, CBC #### [address] Urea nitrogen [Mass/Vol] 15 mg/dL Normal 7-25 [facility] Comment on above: Performed By: #### P TT, BNP, BMP, PT, HS TROP, HEPATIC, CK, CBC #### [address] Complete Blood Count Auto Di ffon 06-20-2023 Basophils (Bld) [#/Vol] 0.1 10*3/uL Normal 0.0-0.2 [facility] Comment on above: Result Comment: PERF ORMED BY: [place] [address] PATHOLOGIST ROLLER SETTER LUIS KHANNA M.D. Performed By: #### P TT, BNP, BMP, PT, HS TROP, HEPATIC, CK, CBC #### [address] Basophils/100 WBC (Bld) 0.6 % Normal . [facility] Comment on above: Performed By: #### P TT, BNP, BMP, PT, HS TROP, HEPATIC, CK, CBC #### [address] Eosinophils (Bld) [#/Vol] 0.1 10*3/uL Normal 0.0-0.45 [facility] Comment on above: Performed By: #### P TT, BNP, BMP, PT, HS TROP, HEPATIC, CK, CBC #### [address] Eosinophils/100 WBC (Bld) 0.7 % Normal . [facility] Comment on above: Performed By: #### P TT, BNP, BMP, PT, HS TROP, HEPATIC, CK, CBC #### [address] Erythrocyte distribution width (RBC) [Ratio] 15.7 % High 12.0-14.8 [facility] Comment on above: Performed By: #### P TT, BNP, BMP, PT, HS TROP, HEPATIC, CK, CBC #### [address] Hematocrit (Bld) [Volume fraction] 44.3 % Normal 38.8-50.0 [facility] Comment on above: Performed By: #### P TT, BNP, BMP, PT, HS TROP, HEPATIC, CK, CBC #### [address] Hemoglobin (Bld) [Mass/Vol] 14.2 g/dL Normal 13.0-17.0 [facility] Comment on above: Performed By: #### P TT, BNP, BMP, PT, HS TROP, HEPATIC, CK, CBC #### [address] Lymphocytes (Bld) [#/Vol] 1.5 10*3/uL Normal 1.00-4.8 [facility] Comment on above: Performed By: #### P TT, BNP, BMP, PT, HS TROP, HEPATIC, CK, CBC #### [address] Lymphocytes/100 WBC (Bld) 15.8 % Normal . [facility] Comment on above: Performed By: #### P TT, BNP, BMP, PT, HS TROP, HEPATIC, CK, CBC #### [address] MCH (RBC) [Entitic mass] 30.2 pg Normal 27.5-35.2 [facility] Comment on above: Performed By: #### P TT, BNP, BMP, PT, HS TROP, HEPATIC, CK, CBC #### [address] MCV (RBC) [Entitic vol] 94.3 fL Normal 83.5-101 [facility] Comment on above: Performed By: #### P TT, BNP, BMP, PT, HS TROP, HEPATIC, CK, CBC #### [address] Mean Corpuscular HGB Conc 32.1 g/dL Low 32.5-35.6 [facility] Comment on above: Performed By: #### P TT, BNP, BMP, PT, HS TROP, HEPATIC, CK, CBC #### [address] Monocytes (Bld) [#/Vol] 0.6 10*3/uL Normal 0.0-0.8 [facility] Comment on above: Performed By: #### P TT, BNP, BMP, PT, HS TROP, HEPATIC, CK, CBC #### [address] Monocytes/100 WBC (Bld) 18.00 % Normal 0.00-20.00 [facility] Comment on above: Performed By: #### P TT, BNP, BMP, PT, HS TROP, HEPATIC, CK, CBC #### [address] Monocytes/100 WBC (Bld) 6.2 % Normal . [facility] Comment on above: Performed By: #### P TT, BNP, BMP, PT, HS TROP, HEPATIC, CK, CBC #### [address] Neutrophils (Bld) [#/Vol] 7.1 10*3/uL Normal 1.8-7.7 [facility] Comment on above: Performed By: #### P TT, BNP, BMP, PT, HS TROP, HEPATIC, CK, CBC #### [address] Neutrophils/100 WBC (Bld) 76.7 % Normal . [facility] Comment on above: Performed By: #### P TT, BNP, BMP, PT, HS TROP, HEPATIC, CK, CBC #### [address] NRBC% 0.1 /100{WBC} Normal 0-0.5 [facility] Comment on above: Performed By: #### P TT, BNP, BMP, PT, HS TROP, HEPATIC, CK, CBC #### [facility] [address] Platelet mean volume (Bld) [Entitic vol] 8.4 fL Normal 6.6-10.1 [facility] Comment on above: Performed By: #### P TT, BNP, BMP, PT, HS TROP, HEPATIC, CK, CBC #### [facility] [address] Platelets (Bld) [#/Vol] 260 10*3/uL Normal 150-450 [facility] Comment on above: Performed By: #### P TT, BNP, BMP, PT, HS TROP, HEPATIC, CK, CBC #### [address] RBC (Bld) [#/Vol] 4.70 10*6/uL Normal 3.90-5.60 [facility] Comment on above: Performed By: #### P TT, BNP, BMP, PT, HS TROP, HEPATIC, CK, CBC #### [address] WBC (Bld) [#/Vol] 9.3 10*3/uL Normal 4.1-10.[address] [facility] Comment on above: Performed By: #### P TT, BNP, BMP, PT, HS TROP, HEPATIC, CK, CBC #### [address] Creatine Kinaseon 06-20-2023 CK [Catalytic activity/Vol] 76 U/L Normal 30-223 [facility] Comment on above: Performed By: #### P TT, BNP, BMP, PT, HS TROP, HEPATIC, CK, CBC #### [address] ECG 12 lead ECGon 06-20-2023 ECG 12 lead ECG [facility] Main [place] [address] [place] [address] Electrocardiograph Report Signed Patient: Evgeny Delgado MR#: [id number] : 1955 Acct:[id number] Age/Sex: 68 / M ADM Date: 06/20/23 Loc: ER Room: Type: [facility] ER Attending Dr: Ordering Provider: Triston Perez DO Date of Service: 06/20/2303/07/1601 ECG/ECG 12 lead ECG: Shortness of Breath/Dyspnea Copies to: Test Reason : Blood Pressure : 142/076 mmHG Vent. Rate : 089 BPM Atrial Rate : 089 BPM P-R Int : 210 ms QRS Dur : 142 ms QT Int : 388 ms P-R-T Axes : 047 -79 055 degrees QTc Int : 472 ms Sinus rhythm with 1st degree AV block Right bundle branch block Left anterior fascicular block Bifascicular block Left ventricular hypertrophy with repolarization abnormality Possible Lateral infarct , age undetermined Abnormal ECG No previous ECGs available Confirmed by Triston Perez DO ([id number]) on 06/20/2023 6:51:22 PM Referred By: Electronically Signed By:Triston Perez DO Transcribed By: MUS Signed By Triston Perez DO 3 1851 [facility] Hepatic Panelon 06-20-2023 Albumin [Mass/Vol] 3.8 g/dL Normal 3.5-5.[address] [facility] Comment on above: Performed By: #### P TT, BNP, BMP, PT, HS TROP, HEPATIC, CK, CBC #### [facility] [address] Albumin/Globulin [Mass ratio] 1.4 {ratio} Normal [facility] Comment on above: Performed By: #### P TT, BNP, BMP, PT, HS TROP, HEPATIC, CK, CBC #### [facility] [address] [place] [id number] [place] ALP [Catalytic activity/Vol] 84 U/L Normal 34-104 [facility] Comment on above: Performed By: #### P TT, BNP, BMP, PT, HS TROP, HEPATIC, CK, CBC #### [facility] [address] [place] [id number] [place] ALT [Catalytic activity/Vol] 21 U/L Normal 7-52 [facility] Comment on above: Performed By: #### P TT, BNP, BMP, PT, HS TROP, HEPATIC, CK, CBC #### [facility] [address] AST [Catalytic activity/Vol] 20 U/L Normal 13-39 [facility] Comment on above: Performed By: #### P TT, BNP, BMP, PT, HS TROP, HEPATIC, CK, CBC #### [facility] [address] Bilirubin [Mass/Vol] 0.7 mg/dL Normal 0.3-1.0 [facility] Comment on above: Performed By: #### P TT, BNP, BMP, PT, HS TROP, HEPATIC, CK, CBC #### [address] Bilirubin,Indirect 0.5 mg/dL Normal [facility] Comment on above: Performed By: #### P TT, BNP, BMP, PT, HS TROP, HEPATIC, CK, CBC #### [address] Bilirubin.indirect [Mass/Vol] 0.20 mg/dL High 0.03-0.18 [facility] Comment on above: Performed By: #### P TT, BNP, BMP, PT, HS TROP, HEPATIC, CK, CBC #### [address] Globulin (S) [Mass/Vol] 2.7 g/dL Normal [facility] Comment on above: Performed By: #### P TT, BNP, BMP, PT, HS TROP, HEPATIC, CK, CBC #### [address] Protein [Mass/Vol] 6.5 g/dL Normal 6.4-8.[address] [facility] Comment on above: Performed By: #### P TT, BNP, BMP, PT, HS TROP, HEPATIC, CK, CBC #### [address] Partial Thromboplastin Timeo n 06-20-2023 aPTT Coag (Bld) [Time] 28.3 s Normal 25.1-36.5 [facility] Comment on above: Result Comment: PERF ORMED BY: [place] [address] PATHOLOGIST ROLLER SETTER LUIS KHANNA M.D. Performed By: #### P TT, BNP, BMP, PT, HS TROP, HEPATIC, CK, CBC #### [facility] [address] [place] [address] [place] Prothrombin Time INRon 06-20 INR Coag (PPP) [Relative time] 1.0 {INR} Normal [facility] Comment on above: Result Comment: INR Therapeutic Range A) Pre- and Peroperative OAT started two weeks before surgery. NOT HIP SURGERY: 1.5 - 2.5 HIP SURGERY: 2 - 3 B) Primary and secondary prevention of venous THROMBOSIS: 2 - 3 C) Active venous thrombosis, pulmonary embolism and prevention of recurrent venous thrombosis: 2 - 3 D) Prevention of arterial thromboembolism including patients with mechanical heart valves: 3 - 4.5 Performed By: #### P TT, BNP, BMP, PT, HS TROP, HEPATIC, CK, CBC #### [facility] [address] PT Coag (PPP) [Time] 11.9 s Normal 9.0-12.9 [facility] Comment on above: Performed By: #### P TT, BNP, BMP, PT, HS TROP, HEPATIC, CK, CBC #### [place] [id number] [facility] Troponin I High Sensitivityo n 06-20-2023 Troponin I High Sensitivity 6.9 pg/mL Normal 0.0-20.0 [facility] Comment on above: Result Comment: PERF ORMED BY: [place] [address] PATHOLOGIST ROLLER SETTER LUIS KHANNA M.D. Performed By: #### P TT, BNP, BMP, PT, HS TROP, HEPATIC, CK, CBC #### [address] [address] [facility] XR chest 1V portableon 06-20 XR chest 1V portable [facility] Main [place] [address] [place] [id number] XRay Report Signed Patient: Evgeny Delgado MR#: [id number] : 1955 Acct:[id number] Age/Sex: 68 / M ADM Date: 06/20/23 Loc: ER Room: Type: PRE ER Attending Dr: Copies to: Triston Perez DO Ordering Provider: Triston Perez DO Date of Service: 06/20/23 XR/XR chest 1V portable: Shortness of Breath/Dyspnea SINGLE VIEW CHEST CLINICAL HISTORY: Shortness of breath and weakness. COMPARISON: None FINDINGS: Heart appears normal in size. Right middle lobe atelectasis/scarring. No consolidation pneumothorax pleural effusion or free air. XR/XR chest 1V portable IMPRESSION: RIGHT MIDDLE LOBE ATELECTASIS/SCARRING. NO CONSOLIDATION TO SUGGEST PNEUMONIA. Impression dictated by: Chirag Best Jr.OIndy06/20/2023 5:23 PM Dictation Location: [facility] Transcribed By: [facility] 06/20/23 172 Dictated By: Quinn Manuel Jr, DO 06/20/23 1722 Signed By: 06/20/23 1723 [facility] PULMONARY FUNCTIONon 023 [address] [id number] PULMONARY FUNCTION PATIENT NAME: EVGENY DELGADO : 1955 MED REC NO: [id number] ROOM: 2007 ACCOUNT NO: [id number] ADMIT DATE: 04/09/2023 PROVIDER: Sumanth Perkins DATE OF PROCEDURE: 04/19/2023 Spirometry does not show any obstructive ventilatory defect and has an FEV1 of 1.34 liters and FVC of 1.64 liters. Lung volumes show slow vital capacity that is decreased at 31% predicted. Diffusion capacity is normal at 114% predicted. Flow-volume loop does not show any obstructive ventilatory pattern. IMPRESSION: The patient does not have any obstructive ventilatory defect and it is possible the patient may have a restrictive ventilatory defect, but lung volumes were not done. The patient's FEV1 is 1.34 liters and FVC is 1.64 liters. SUMANTH PERKINS [id number] Doc#: [id number] CC: Normal [facility] Basic Metab w/rfx MGon 04-20 Anion gap [Moles/Vol] 10 mmol/L Normal 9-17 [facility] Comment on above: Performed By: #### Cooper MEDINA, HEPXA #### [address] [address] Clerical Office: Reggie Chavez MD Calcium [Mass/Vol] 9.0 mg/dL Normal 8.6-10.4 [facility] Comment on above: Performed By: #### Cooper MEDINA, HEPXA #### [address] [address] Clerical Office: Reggie Chavez MD Chloride [Moles/Vol] 93 mmol/L Low 98-107 [facility] Comment on above: Performed By: #### Cooper MEDINA, HEPXA #### [address] [address] Clerical Office: Reggie Chavez MD CO2 [Moles/Vol] 30 mmol/L Normal 20-31 [facility] Comment on above: Performed By: #### Cooper MEDINA, HEPXA #### [facility] [employer] [address] [place] [address] Clerical Office: Reggie Chavez MD Creatinine [Mass/Vol] 0.45 mg/dL Low 0.70-1.20 [facility] Comment on above: Performed By: #### Cooper KWANE, HEPXA #### [facility] [employer] [address] [place] [address] Clerical Office: Reggie Chavez MD GFR/1.73 sq M.predicted among non-blacks MDRD (S/P/Bld) [Vol rate/Area] mL/min/{1.73_m2} Normal >60 [facility] Comment on above: Result Comment: These results are not intended for use in patients <18 years of age. eGFR results are calculated without a race factor using the 2020 CKD-EPI equation. Careful clinical correlation is recommended, particularly when comparing to results calculated using previous equations. The CKD-EPI equation is less accurate in patients with extremes of muscle mass, extra-renal metabolism of creatine, excessive creatine ingestion, or following therapy that affects renal tubular secretion. Performed By: #### D ADAM HEPXA #### [facility] [address] [place] [address] Clerical Office: Reggie Chavez MD Glucose [Mass/Vol] 161 mg/dL High 70-99 [facility] Comment on above: Performed By: #### Cooper ADAM HEPXA #### [facility] [employer] [address] [place] [address] Clerical Office: Reggie Chavez MD Potassium [Moles/Vol] 5.5 mmol/L High 3.7-5.3 [facility] Comment on above: Result Comment: SPEC IMEN MODERATELY HEMOLYZED, RESULTS MAY BE ADVERSELY AFFECTED Performed By: #### Cooper ADAM, HEPXA #### [facility] [employer] [address] [place] [address] Clerical Office: Reggie Chavez MD Sodium [Moles/Vol] 133 mmol/L Low 135-144 [facility] Comment on above: Performed By: #### Cooper ADAM HEPXA #### [facility] [employer] [address] [place] [address] Clerical Office: Reggie Chavez MD Urea nitrogen [Mass/Vol] 20 mg/dL Normal 8-23 [facility] Comment on above: Performed By: #### Cooper ADAM, HEPXA #### [facility] [address] [place] [address] Clerical Office: Reggie Chavez MD CBC with Diffon 04-20-2023 Abs. Basophil 0.04 k/uL Normal 0.00-0.20 [facility] Comment on above: Performed By: #### Cooper ADAM, HEPXA #### [address] [address] Clerical Office: Reggie Chavez MD Abs.Imm.Granulocyte 0.12 k/uL Normal 0.00-0.30 [facility] Comment on above: Performed By: #### D ADAM, HEPXA #### [place] [address] Clerical Office: Reggie Chavez MD Abs.Neutrophil (Seg) 6.32 k/uL Normal 1.50-8.10 [facility] Comment on above: Performed By: #### Cooper ADAM, HEPXA #### [place] [address] Clerical Office: Reggie Chavez MD Basophils/100 WBC (Bld) 0 % Normal 0-2 [facility] Comment on above: Performed By: #### Cooper ADAM, HEPXA #### [address] [address] Clerical Office: Reggie Chavez MD Eosinophils (Bld) [#/Vol] 0.13 10*3/uL Normal 0.00-0.44 [facility] Comment on above: Performed By: #### Cooper KWANE, HEPXA #### [address] [address] Clerical Office: Reggie Chavez MD Eosinophils/100 WBC (Bld) 1 % Normal 1-4 [facility] Comment on above: Performed By: #### Cooper ADAM, HEPXA #### [address] [address] Clerical Office: Reggie Chavez MD Erythrocyte distribution width (RBC) [Ratio] 13.4 % Normal 11.8-14.4 [facility] Comment on above: Performed By: #### D ADAM, HEPXA #### [facility] [address] [place] [address] Clerical Office: Reggie Chavez MD Hematocrit (Bld) [Volume fraction] 38.6 % Low 40.7-50.3 [facility] Comment on above: Performed By: #### D ADAM, HEPXA #### [facility] [address] [place] [address] Clerical Office: Reggie Chavez MD Hemoglobin (Bld) [Mass/Vol] 12.8 g/dL Low 13.0-17.0 [facility] Comment on above: Performed By: #### D ADAM, HEPXA #### [facility] [employer] [address] [place] [address] Clerical Office: Reggie Chavez MD Immature granulocytes/100 WBC (Bld) 1 % High 0 [facility] Comment on above: Performed By: #### D ADAM, HEPXA #### [address] [address] Clerical Office: Reggie Chavez MD Lymphocytes (Bld) [#/Vol] 1.66 10*3/uL Normal 1.10-3.70 [facility] Comment on above: Performed By: #### Cooper ADAM, HEPXA #### [address] [address] Clerical Office: Reggie Chavez MD Lymphocytes/100 WBC (Bld) 18 % Low 24-43 [facility] Comment on above: Performed By: #### D ADAM, HEPXA #### [facility] [employer] [address] [place] [address] Clerical Office: Reggie Chavez MD MCH (RBC) [Entitic mass] 33.0 pg Normal 25.2-33.5 [facility] Comment on above: Performed By: #### D ADAM, HEPXA #### [address] [address] Clerical Office: Reggie Chavez MD MCHC (RBC) [Mass/Vol] 33.2 g/dL Normal 28.4-34.8 [facility] Comment on above: Performed By: #### D ADAM, HEPXA #### [address] [address] Clerical Office: Reggie Chavez MD MCV (RBC) [Entitic vol] 99.5 fL Normal 82.6-102.9 [facility] Comment on above: Performed By: #### D ADAM, HEPXA #### [address] [address] Clerical Office: Reggie Chavez MD Monocytes (Bld) [#/Vol] 0.73 10*3/uL Normal 0.10-1.20 [facility] Comment on above: Performed By: #### D ADAM, HEPXA #### [address] [address] Clerical Office: Reggie Chavez MD Monocytes/100 WBC (Bld) 8 % Normal 3-12 [facility] Comment on above: Performed By: #### D ADAM, HEPXA #### [address] [address] Clerical Office: Reggie Chavez MD Neutrophil (Seg) 70 % High 36-65 [facility] Comment on above: Performed By: #### D ADAM, HEPXA #### [address] [address] Clerical Office: Reggie Chavez MD NRBC Automated 0.0 per 100 WBC Normal 0.0 [facility] Comment on above: Performed By: #### D ADAM, HEPXA #### [address] [address] Clerical Office: Reggie Chavez MD Platelet mean volume (Bld) [Entitic vol] 11.1 fL Normal 8.1-13.5 [facility] Comment on above: Performed By: #### Cooper MEDINA, HEPXA #### [facility] [address] [place] [address] Clerical Office: Reggie Chavez MD Platelets (Bld) [#/Vol] 192 10*3/uL Normal 138-453 [facility] Comment on above: Performed By: #### Cooper MEDINA, HEPXA #### [address] [address] Clerical Office: Reggie Chavez MD RBC (Bld) [#/Vol] 3.88 10*6/uL Low 4.21-5.77 [facility] Comment on above: Performed By: #### Cooper MEDINA HEPXA #### [address] [address] Clerical Office: Reggie Chavez MD WBC (Bld) [#/Vol] 9.0 10*3/uL Normal 3.5-11.3 [facility] Comment on above: Performed By: #### Cooper MEDINA, HEPXA #### [address] [address] Clerical Office: Reggie Chavez MD K (Potassium)/rfx MGon 04-20 Potassium [Moles/Vol] 4.5 mmol/L Normal 3.7-5.3 [facility] Comment on above: Performed By: #### R EJEC #### [address] [address] Clerical Office: Reggie Chavez MD Basic Metab w/rfx MGon 04-19 Anion gap [Moles/Vol] 13 mmol/L Normal 9-17 [facility] Comment on above: Performed By: #### U JV, UAX #### [facility] [employer] [address] [place] [address] Clerical Office: Reggie Chavez MD Calcium [Mass/Vol] 9.5 mg/dL Normal 8.6-10.4 [facility] Comment on above: Performed By: #### U JV, UAX #### [facility] [address] [place] [address] Clerical Office: Reggie Chavez MD Chloride [Moles/Vol] 93 mmol/L Low 98-107 [facility] Comment on above: Performed By: #### U VJ, UAX #### [facility] [employer] [address] [place] [address] Clerical Office: Reggie Chavez MD CO2 [Moles/Vol] 29 mmol/L Normal 20-31 [facility] Comment on above: Performed By: #### U JV, UAX #### [facility] [employer] [address] [place] [address] Clerical Office: Reggie Chavez MD Creatinine [Mass/Vol] 0.51 mg/dL Low 0.70-1.20 [facility] Comment on above: Performed By: #### U JV, UAX #### [address] [address] Clerical Office: Reggie Chavez MD GFR/1.73 sq M.predicted among non-blacks MDRD (S/P/Bld) [Vol rate/Area] mL/min/{1.73_m2} Normal >60 [facility] Comment on above: Result Comment: These results are not intended for use in patients <18 years of age. eGFR results are calculated without a race factor using the 2020 CKD-EPI equation. Careful clinical correlation is recommended, particularly when comparing to results calculated using previous equations. The CKD-EPI equation is less accurate in patients with extremes of muscle mass, extra-renal metabolism of creatine, excessive creatine ingestion, or following therapy that affects renal tubular secretion. Performed By: #### U JV, UAX #### [facility] [employer] [address] [place] [address] Clerical Office: Reggie Chavez MD Glucose [Mass/Vol] 225 mg/dL High 70-99 [facility] Comment on above: Performed By: #### U JV, UAX #### [facility] [address] [place] [address] Clerical Office: Reggie Chavez MD Potassium [Moles/Vol] 4.4 mmol/L Normal 3.7-5.3 [facility] Comment on above: Performed By: #### U JV, UAX #### [facility] [address] [place] [address] Clerical Office: Reggie Chavez MD Sodium [Moles/Vol] 135 mmol/L Normal 135-144 [facility] Comment on above: Performed By: #### U JV, UAX #### [facility] [address] [place] [address] Clerical Office: Reggie Chavez MD Urea nitrogen [Mass/Vol] 17 mg/dL Normal 8-23 [facility] Comment on above: Performed By: #### U JV, UAX #### [facility] [address] [place] [address] Clerical Office: Reggie Chavez MD FL ESOPHAGRAMon 04-19-2023 [place] ESOPHAGRAM EXAMINATION: DOUBLE CONTRAST ESOPHAGRAM 04/19/2023 1:52 pm TECHNIQUE: Double contrast esophagram was performed with barium and air contrast. FLUOROSCOPY DOSE AND TYPE: Radiation Exposure Index: DAP [id number], COMPARISON: None HISTORY: ORDERING SYSTEM PROVIDED HISTORY: esophageal reflux r/o stricture TECHNOLOGIST PROVIDED HISTORY: esophageal reflux r/o stricture Should a barium tablet be used, if available?->Yes Reason for Exam: R/O STRICTURE 1.3MINFT FINDINGS: The esophagus is of normal caliber. Diffuse tertiary contractions. No focal lesions. No evidence for stricture. Barium pill was given. 1 swallowed this passes promptly into the stomach. The gastroesophageal junction is normal. There is no evidence for reflux seen. IMPRESSION: Diffuse tertiary contractions. No evidence for esophageal stricture. Interpreted by: Charly Johnson MD Signed by: Charly Johnson MD 04/19/23 Final result Normal [facility] XR CHEST PORTABLEon 04-19-20 XR CHEST PORTABLE EXAMINATION: ONE XRAY VIEW OF THE CHEST 04/19/2023 1:52 pm COMPARISON: Two-view chest from 04/09/2023 HISTORY: ORDERING SYSTEM PROVIDED HISTORY: cough TECHNOLOGIST PROVIDED HISTORY: cough Reason for Exam: cough/ AP erect FINDINGS: Overlying ECG monitor leads and gown snaps. Residual contrast in the stomach. Elevated right hemidiaphragm. Cardiomediastinal shadow stable. Some basilar atelectasis or scarring, improved on the left. No new pulmonary or large pleural abnormality. No pneumothorax. Bones unchanged. IMPRESSION: Contrast in the stomach, likely from recent modified barium swallow. Improved atelectasis left base. Persistent elevation right hemidiaphragm. No acute finding. Interpreted by: Venancio Barcenas MD Signed by: Venancio Barcenas MD 04/19/23 Final result Normal [facility] Troponinon 04-18-2023 Troponin, High Sens 147 ng/L Critically high 0-22 [facility] [facility] Comment on above: Result Comment: High Sensitivity Troponin values cannot be compared with other Troponin methodologies. Previous Alert Value Reported Performed By: #### R EJEC #### [facility] [employer] [address] [place] [address] [phone] Clerical Office: Reggie Chavez MD UA w/Reflex Cultureon 2022 Bilirubin, SemiQt,Ur Negative Normal NEG [facility] Comment on above: Performed By: #### U JV, UAX #### [facility] [employer] [address] [place] [address] [phone] Clerical Office: Reggie Chavez MD Blood, Urine Negative Normal NEG [facility] Comment on above: Performed By: #### U JV, UAX #### [facility] [employer] [address] [place] [address] [phone] Clerical Office: Reggie Chavez MD Clarity (U) Clear Normal CLEAR [facility] Comment on above: Performed By: #### U JV, UAX #### [facility] [address] [place] [phone] Clerical Office: Reggie Chavez MD Color (U) Yellow Normal YEL [facility] Comment on above: Performed By: #### U JV, UAX #### [facility] [address] [place] [phone] Clerical Office: Reggie Chavez MD Comment Microscopic exam not performed based on chemical results unless requested in Normal [facility] Comment on above: Result Comment: orig inal order. Performed By: #### U JV, UAX #### [facility] [address] [place] [address] Clerical Office: Reggie Chavez MD Glucose Ql (U) Negative Normal NEG [facility] Comment on above: Performed By: #### U JV, UAX #### [facility] [employer] [address] [place] [phone] Clerical Office: Reggie Chavez MD Ketones Ql (U) Negative Normal NEG [facility] Comment on above: Performed By: #### U JV, UAX #### [facility] [employer] [address] [place] [address] Clerical Office: Reggie Chavez MD Leukocyte esterase Test strip Ql (U) Negative Normal NEG [facility] Comment on above: Performed By: #### U JV, UAX #### [facility] [employer] [address] [place] [phone] Clerical Office: Reggie Chavez MD Nitrite,Ur Negative Normal NEG [facility] Comment on above: Performed By: #### U JV, UAX #### [facility] [employer] [address] [place] [phone] Clerical Office: Reggie Chavez MD PH,Ur 7.0 Normal 5.0-8.0 [facility] Comment on above: Performed By: #### U JV, UAX #### [address] [address] Clerical Office: Reggie Chavez MD Protein Ql (U) Negative Normal NEG [facility] Comment on above: Performed By: #### U JV, UAX #### [address] [address] Clerical Office: Reggie Chavez MD Spec. [place],Ur 1.010 Normal 1.005-1.030 [facility] Comment on above: Performed By: #### U JV, UAX #### [address] [address] Clerical Office: Reggie Chavez MD Urobilinogen,Ur Normal Normal NORM [facility] Comment on above: Performed By: #### U JV, UAX #### [address] [address] Clerical Office: Reggie Chavez MD Urinalysis,Microon 3 Casts 0 TO 2 HYALINE Normal 0-8 [facility] Comment on above: Result Comment: Refe rence range defined for non-centrifuged specimen. Performed By: #### U JV, UAX #### [address] [address] Clerical Office: Reggie Chavez MD Epithelial cells LM Ql (Urine sed) None Normal 0-5 [facility] Comment on above: Performed By: #### U JV, UAX #### [address] [address] Clerical Office: Reggie Chavez MD Urine RBC's 0 TO 2 Normal 0-4 [facility] Comment on above: Result Comment: Refe rence range defined for non-centrifuged specimen. Performed By: #### U JV, UAX #### [address] [address] Clerical Office: Reggie Chavez MD Urine WBC's None Normal 0-5 [facility] Comment on above: Performed By: #### U JV, UAX #### [address] [address] Clerical Office: Reggie Chavez MD Basic Metabolic Profon 04-17 Anion gap [Moles/Vol] 12 mmol/L Normal 9-17 [facility] Comment on above: Performed By: #### D ADAM, HEPXA #### [address] [address] Clerical Office: Reggie Chavez MD Calcium [Mass/Vol] 9.2 mg/dL Normal 8.6-10.4 [facility] Comment on above: Performed By: #### D ADAM, HEPXA #### [address] [address] Clerical Office: Reggie Chavez MD Chloride [Moles/Vol] 97 mmol/L Low 98-107 [facility] Comment on above: Performed By: #### D ADAM, HEPXA #### [address] [address] Clerical Office: Reggie Chavez MD CO2 [Moles/Vol] 29 mmol/L Normal 20-31 [facility] Comment on above: Performed By: #### D ADAM, HEPXA #### [address] [address] Clerical Office: Reggie Chavez MD Creatinine [Mass/Vol] 0.47 mg/dL Low 0.70-1.20 [facility] Comment on above: Performed By: #### D ADAM, HEPXA #### [address] [address] Clerical Office: Reggie Chavez MD GFR/1.73 sq M.predicted among non-blacks MDRD (S/P/Bld) [Vol rate/Area] mL/min/{1.73_m2} Normal >60 [facility] Comment on above: Result Comment: These results are not intended for use in patients <18 years of age. eGFR results are calculated without a race factor using the 2020 CKD-EPI equation. Careful clinical correlation is recommended, particularly when comparing to results calculated using previous equations. The CKD-EPI equation is less accurate in patients with extremes of muscle mass, extra-renal metabolism of creatine, excessive creatine ingestion, or following therapy that affects renal tubular secretion. Performed By: #### D ADAM, HEPXA #### [employer] [address] [place] [phone] Clerical Office: Reggie Chavez MD Glucose [Mass/Vol] 136 mg/dL High 70-99 [facility] Comment on above: Performed By: #### D ADAM, HEPXA #### [employer] [address] [place] [address] Clerical Office: Reggie Chavez MD Potassium [Moles/Vol] 4.8 mmol/L Normal 3.7-5.3 [facility] Comment on above: Performed By: #### D ADAM, HEPXA #### [facility] [employer] [address] [place] [address] Clerical Office: Reggie Chavez MD Sodium [Moles/Vol] 138 mmol/L Normal 135-144 [facility] Comment on above: Performed By: #### D ADAM, HEPXA #### [facility] [address] [place] [address] Clerical Office: Reggie Chavez MD Urea nitrogen [Mass/Vol] 16 mg/dL Normal 8-23 [facility] Comment on above: Performed By: #### D ADAM, HEPXA #### [facility] [address] [place] [address] Clerical Office: Reggie Chavez MD CBC with Diffon 04-17-2023 Abs. Basophil 0.04 k/uL Normal 0.00-0.20 [facility] Comment on above: Performed By: #### Cooper MEDINA, HEPXA #### [address] [address] Clerical Office: Reggie Chavez MD Abs.Imm.Granulocyte 0.10 k/uL Normal 0.00-0.30 [facility] Comment on above: Performed By: #### Cooper ADAM, HEPXA #### [address] [address] Clerical Office: Reggie Chavez MD Abs.Neutrophil (Seg) 4.20 k/uL Normal 1.50-8.10 [facility] Comment on above: Performed By: #### Cooper MEDINA, HEPXA #### [address] [address] Clerical Office: Reggie Chavez MD Basophils/100 WBC (Bld) 1 % Normal 0-2 [facility] Comment on above: Performed By: #### Cooper MEDINA, HEPXA #### [address] [address] Clerical Office: Reggie Chavez MD Eosinophils (Bld) [#/Vol] 0.12 10*3/uL Normal 0.00-0.44 [facility] Comment on above: Performed By: #### Cooper ADAM, HEPXA #### [address] [address] Clerical Office: Reggie Chavez MD Eosinophils/100 WBC (Bld) 2 % Normal 1-4 [facility] Comment on above: Performed By: #### Cooper ADAM, HEPXA #### [facility] [employer] [address] [place] [address] Clerical Office: Reggie Chavez MD Erythrocyte distribution width (RBC) [Ratio] 13.2 % Normal 11.8-14.4 [facility] Comment on above: Performed By: #### D ADAM, HEPXA #### [address] [address] Clerical Office: Reggie Chavez MD Hematocrit (Bld) [Volume fraction] 42.0 % Normal 40.7-50.3 [facility] Comment on above: Performed By: #### D ADAM, HEPXA #### [address] [address] Clerical Office: Reggie Chavez MD Hemoglobin (Bld) [Mass/Vol] 12.9 g/dL Low 13.0-17.0 [facility] Comment on above: Performed By: #### D ADAM, HEPXA #### [address] [address] Clerical Office: Reggie Chavez MD Immature granulocytes/100 WBC (Bld) 2 % High 0 [facility] Comment on above: Performed By: #### D ADAM, HEPXA #### [address] [address] Clerical Office: Reggie Chavez MD Lymphocytes (Bld) [#/Vol] 1.46 10*3/uL Normal 1.10-3.70 [facility] Comment on above: Performed By: #### D ADAM, HEPXA #### [address] [address] Clerical Office: Reggie Chavez MD Lymphocytes/100 WBC (Bld) 23 % Low 24-43 [facility] Comment on above: Performed By: #### D ADAM, HEPXA #### [address] [address] Clerical Office: Reggie Chavez MD MCH (RBC) [Entitic mass] 33.2 pg Normal 25.2-33.5 [facility] Comment on above: Performed By: #### D ADAM, HEPXA #### [address] [address] Clerical Office: Reggie Chavez MD MCHC (RBC) [Mass/Vol] 30.7 g/dL Normal 28.4-34.8 [facility] Comment on above: Performed By: #### D ADAM, HEPXA #### [address] [address] Clerical Office: Reggie Chavez MD MCV (RBC) [Entitic vol] 108.0 fL High 82.6-102.9 [facility] Comment on above: Performed By: #### D ADAM, HEPXA #### [address] [address] Clerical Office: Reggie Chavez MD Monocytes (Bld) [#/Vol] 0.43 10*3/uL Normal 0.10-1.20 [facility] Comment on above: Performed By: #### D ADAM, HEPXA #### [address] [address] Clerical Office: Reggie Chavez MD Monocytes/100 WBC (Bld) 7 % Normal 3-12 [facility] Comment on above: Performed By: #### D ADAM, HEPXA #### [address] [address] Clerical Office: Reggie Chavez MD Neutrophil (Seg) 65 % Normal 36-65 [facility] Comment on above: Performed By: #### D ADAM, HEPXA #### [address] [address] Clerical Office: Reggie Chavez MD NRBC Automated 0.0 per 100 WBC Normal 0.0 [facility] Comment on above: Performed By: #### D ADAM, HEPXA #### [address] [place] [address] Clerical Office: Reggie Chavez MD Platelet mean volume (Bld) [Entitic vol] 10.4 fL Normal 8.1-13.5 [facility] Comment on above: Performed By: #### D ADAM, HEPXA #### [address] [address] Clerical Office: Reggie Chavez MD Platelets (Bld) [#/Vol] 185 10*3/uL Normal 138-453 [facility] Comment on above: Performed By: #### D ADAM, HEPXA #### [address] [address] Clerical Office: Reggie Chavez MD RBC (Bld) [#/Vol] 3.89 10*6/uL Low 4.21-5.77 [facility] Comment on above: Performed By: #### Cooper ADAM, HEPXA #### [address] [address] Clerical Office: Reggie Chavez MD RBC morphology finding Nom (Bld) MACROCYTOSIS PRESENT Normal [facility] Comment on above: Performed By: #### Cooper ADAM, HEPXA #### [address] [address] Clerical Office: Reggie Chavez MD WBC (Bld) [#/Vol] 6.4 10*3/uL Normal 3.5-11.3 [facility] Comment on above: Performed By: #### D ADAM, HEPXA #### [address] [address] Clerical Office: Reggie Chavez MD K (Potassium)on 04-17-2023 Potassium [Moles/Vol] 4.8 mmol/L Normal 3.7-5.3 [facility] Comment on above: Performed By: #### R EJEC #### [address] [place] [address] Clerical Office: Reggie Chavez MD Magnesiumon 04-17-2023 Magnesium [Mass/Vol] 1.6 mg/dL Normal 1.6-2.6 [facility] Comment on above: Performed By: #### R EJEC #### [address] [address] Clerical Office: Reggie Chavez MD Magnesium [Mass/Vol] 1.7 mg/dL Normal 1.6-2.6 [facility] Comment on above: Performed By: #### D ADAM, HEPXA #### [address] [address] Clerical Office: Reggie Chavez MD Thyroid Stim. Horm.on 2022 Thyroid Stim. Horm. 1.83 uIU/mL Normal 0.30-5.00 [facility] Comment on above: Performed By: #### R EJEC #### [address] [address] Clerical Office: Reggie Chavez MD Troponinon 04-17-2023 Troponin, High Sens 146 ng/L Critically high 0-22 [facility] Comment on above: Result Comment: High Sensitivity Troponin values cannot be compared with other Troponin methodologies. Performed By: #### R EJEC #### [address] [address] Clerical Office: Reggie Chavez MD Basic Metabolic Profon 04-15 Anion gap [Moles/Vol] 8 mmol/L Low 9-17 [facility] Comment on above: Performed By: #### B C #### [address] [address] Clerical Office: Reggie Chavez MD Calcium [Mass/Vol] 9.3 mg/dL Normal 8.6-10.4 [facility] Comment on above: Performed By: #### B C #### [address] [address] Clerical Office: Reggie Chavez MD Chloride [Moles/Vol] 95 mmol/L Low 98-107 [facility] Comment on above: Performed By: #### B C #### [facility] [address] [place] [address] Clerical Office: Reggie Chavez MD CO2 [Moles/Vol] 34 mmol/L High 20-31 [facility] Comment on above: Performed By: #### B C #### [address] [address] Clerical Office: Reggie Chavez MD Creatinine [Mass/Vol] 0.40 mg/dL Low 0.70-1.20 [facility] Comment on above: Performed By: #### B C #### [address] [address] Clerical Office: Reggie Chavez MD GFR/1.73 sq M.predicted among non-blacks MDRD (S/P/Bld) [Vol rate/Area] mL/min/{1.73_m2} Normal >60 [facility] Comment on above: Result Comment: These results are not intended for use in patients <18 years of age. eGFR results are calculated without a race factor using the 2020 CKD-EPI equation. Careful clinical correlation is recommended, particularly when comparing to results calculated using previous equations. The CKD-EPI equation is less accurate in patients with extremes of muscle mass, extra-renal metabolism of creatine, excessive creatine ingestion, or following therapy that affects renal tubular secretion. Performed By: #### B C #### [address] [address] Clerical Office: Reggie Chavez MD Glucose [Mass/Vol] 141 mg/dL High 70-99 [facility] Comment on above: Performed By: #### B C #### [address] [address] Clerical Office: Reggie Chavez MD Potassium [Moles/Vol] 4.7 mmol/L Normal 3.7-5.3 [facility] Comment on above: Performed By: #### B C #### [address] [address] Clerical Office: Reggie Chavez MD Sodium [Moles/Vol] 137 mmol/L Normal 135-144 [facility] Comment on above: Performed By: #### B C #### [place] [address] Clerical Office: Reggie Chavez MD Urea nitrogen [Mass/Vol] 18 mg/dL Normal 8-23 [facility] Comment on above: Performed By: #### B C #### [place] [address] Clerical Office: Reggie Chavez MD CBC with Diffon 04-15-2023 Abs. Basophil <0.03 Normal 0.00-0.20 [facility] Comment on above: Performed By: #### B C #### [place] [address] Clerical Office: Reggie Chavez MD Abs.Imm.Granulocyte 0.08 k/uL Normal 0.00-0.30 [facility] Comment on above: Performed By: #### B C #### [place] [address] Clerical Office: Reggie Chavez MD Abs.Neutrophil (Seg) 4.31 k/uL Normal 1.50-8.10 [facility] Comment on above: Performed By: #### B C #### [address] [address] Clerical Office: Reggie Chavez MD Basophils/100 WBC (Bld) 0 % Normal 0-2 [facility] Comment on above: Performed By: #### B C #### [address] [address] Clerical Office: Reggie Chavez MD Eosinophils (Bld) [#/Vol] 0.09 10*3/uL Normal 0.00-0.44 [facility] Comment on above: Performed By: #### B C #### [address] [address] Clerical Office: Reggie Chavez MD Eosinophils/100 WBC (Bld) 1 % Normal 1-4 [facility] Comment on above: Performed By: #### B C #### [address] [address] Clerical Office: Reggie Chavez MD Erythrocyte distribution width (RBC) [Ratio] 13.0 % Normal 11.8-14.4 [facility] Comment on above: Performed By: #### B C #### [address] [address] Clerical Office: Reggie Chavez MD Hematocrit (Bld) [Volume fraction] 41.5 % Normal 40.7-50.3 [facility] Comment on above: Performed By: #### B C #### [address] [address] Clerical Office: Reggie Chavez MD Hemoglobin (Bld) [Mass/Vol] 13.1 g/dL Normal 13.0-17.0 [facility] Comment on above: Performed By: #### B C #### [address] [address] Clerical Office: Reggie Chavez MD Immature granulocytes/100 WBC (Bld) 1 % High 0 [facility] Comment on above: Performed By: #### B C #### [address] [address] Clerical Office: Reggie Chavez MD Lymphocytes (Bld) [#/Vol] 1.41 10*3/uL Normal 1.10-3.70 [facility] Comment on above: Performed By: #### B C #### [address] [address] Clerical Office: Reggie Chavez MD Lymphocytes/100 WBC (Bld) 22 % Low 24-43 [facility] Comment on above: Performed By: #### B C #### [address] [address] Clerical Office: Reggie Chavez MD MCH (RBC) [Entitic mass] 33.2 pg Normal 25.2-33.5 [facility] Comment on above: Performed By: #### B C #### [address] [address] Clerical Office: Reggie Chavez MD MCHC (RBC) [Mass/Vol] 31.6 g/dL Normal 28.4-34.8 [facility] Comment on above: Performed By: #### B C #### [address] [address] Clerical Office: Reggie Chavez MD MCV (RBC) [Entitic vol] 105.1 fL High 82.6-102.9 [facility] Comment on above: Performed By: #### B C #### [address] [address] Clerical Office: Reggie Chavez MD Monocytes (Bld) [#/Vol] 0.41 10*3/uL Normal 0.10-1.20 [facility] Comment on above: Performed By: #### B C #### [address] [address] Clerical Office: Reggie Chavez MD Monocytes/100 WBC (Bld) 7 % Normal 3-12 [facility] Comment on above: Performed By: #### B C #### [address] [address] Clerical Office: Reggie Chavez MD Neutrophil (Seg) 69 % High 36-65 [facility] Comment on above: Performed By: #### B C #### [address] [address] Clerical Office: Reggie Chavez MD NRBC Automated 0.0 per 100 WBC Normal 0.0 [facility] Comment on above: Performed By: #### B C #### [address] [address] Clerical Office: Reggie Chavez MD Platelet mean volume (Bld) [Entitic vol] 10.3 fL Normal 8.1-13.5 [facility] Comment on above: Performed By: #### B C #### [address] [address] Clerical Office: Reggie Chavez MD Platelets (Bld) [#/Vol] 191 10*3/uL Normal 138-453 [facility] Comment on above: Performed By: #### B C #### [address] [address] Clerical Office: Reggie Chavez MD RBC (Bld) [#/Vol] 3.95 10*6/uL Low 4.21-5.77 [facility] Comment on above: Performed By: #### B C #### [address] [address] Clerical Office: Reggie Chavez MD RBC morphology finding Nom (Bld) MACROCYTOSIS PRESENT Normal [facility] Comment on above: Performed By: #### B C #### [address] [address] Clerical Office: Reggie Chavez MD WBC (Bld) [#/Vol] 6.3 10*3/uL Normal 3.5-11.3 [facility] Comment on above: Performed By: #### B C #### [address] [address] Clerical Office: Reggie Chavez MD Magnesiumon 04-15-2023 Magnesium [Mass/Vol] 1.8 mg/dL Normal 1.6-2.6 [facility] Comment on above: Performed By: #### B C #### [address] [id number] Clerical Office: Reggie Chavez MD Cult,Bloodon 04-14-2023 Cult,Blood Specimen Description .BLOOD Special Requests RT FOREARM 10 ML Culture NO GROWTH 5 DAYS Report Status FINAL 04/14/2023 Normal [facility] Comment on above: Performed By: #### R EJEC #### [address] [address] Clerical Office: Reggie Chavez MD Cult,Blood Specimen Description .BLOOD Special Requests LEFT WRIST 10 ML Culture NO GROWTH 5 DAYS Report Status FINAL 04/14/2023 Normal [facility] Comment on above: Performed By: #### B C #### [address] [address] Clerical Office: Reggie Chavez MD FL MODIFIED BARIUM SWALLOW W VIDEOon 04-14-2023 FL MODIFIED BARIUM SWALLOW W VIDEO EXAMINATION: MODIFIED BARIUM SWALLOW WAS PERFORMED IN CONJUNCTION WITH SPEECH PATHOLOGY SERVICES TECHNIQUE: Under fluoroscopic evaluation cineradiography/videor adiography recordings were performed in conjunction with the speech-language pathologist ([employer]IC[employer] TESTING). Various liquid, solid and/or semi-solid barium preparations were used to assess swallowing function. FLUOROSCOPY DOSE AND TYPE: Radiation Exposure Index: DAP [id number], COMPARISON: None HISTORY: ORDERING SYSTEM PROVIDED HISTORY: failed bedside swallow study TECHNOLOGIST PROVIDED HISTORY: failed bedside swallow study Reason for Exam: failed bedside swallow study FINDINGS: Patient given nectar thick liquid, thin liquid, puree, soft solid and cookie. No evidence of laryngeal penetration or aspiration. Minimal pooling in the vallecula. IMPRESSION: Swallowing mechanism grossly within normal limits without evidence of aspiration. Please see separate speech pathology report for full discussion of findings and recommendations. Interpreted by: Charly Johnson MD Signed by: Charly Johnson MD 04/14/23 Final result Normal [facility] Basic Metabolic Profon 04-13 Anion gap [Moles/Vol] 9 mmol/L Normal 9-17 [facility] Comment on above: Performed By: #### V BG #### [address] [address] Clerical Office: Reggie Chavez MD Calcium [Mass/Vol] 9.2 mg/dL Normal 8.6-10.4 [facility] Comment on above: Performed By: #### V BG #### [place] [address] Clerical Office: Reggie Chavez MD Chloride [Moles/Vol] 95 mmol/L Low 98-107 [facility] Comment on above: Performed By: #### V BG #### [address] [address] Clerical Office: Reggie Chavez MD CO2 [Moles/Vol] 30 mmol/L Normal 20-31 [facility] Comment on above: Performed By: #### V BG #### [address] [address] Clerical Office: Reggie Chavez MD Creatinine [Mass/Vol] 0.43 mg/dL Low 0.70-1.20 [facility] Comment on above: Performed By: #### V BG #### [address] [address] Clerical Office: Reggie Chavez MD GFR/1.73 sq M.predicted among non-blacks MDRD (S/P/Bld) [Vol rate/Area] mL/min/{1.73_m2} Normal >60 [facility] Comment on above: Result Comment: These results are not intended for use in patients <18 years of age. eGFR results are calculated without a race factor using the 2020 CKD-EPI equation. Careful clinical correlation is recommended, particularly when comparing to results calculated using previous equations. The CKD-EPI equation is less accurate in patients with extremes of muscle mass, extra-renal metabolism of creatine, excessive creatine ingestion, or following therapy that affects renal tubular secretion. Performed By: #### V BG #### [facility] [employer] [address] [place] [address] Clerical Office: Reggie Chavez MD Glucose [Mass/Vol] 139 mg/dL High 70-99 [facility] Comment on above: Performed By: #### V BG #### [address] [address] Clerical Office: Reggie Chavez MD Potassium [Moles/Vol] 4.6 mmol/L Normal 3.7-5.3 [facility] Comment on above: Performed By: #### V BG #### [address] [address] Clerical Office: Reggie Chavez MD Sodium [Moles/Vol] 134 mmol/L Low 135-144 [facility] Comment on above: Performed By: #### V BG #### [address] [address] Clerical Office: Reggie Chavez MD Urea nitrogen [Mass/Vol] 32 mg/dL High 8-23 [facility] Comment on above: Performed By: #### V BG #### [address] [address] Clerical Office: Reggie Chavez MD CBC with Diffon 04-13-2023 Abs. Basophil 0.03 k/uL Normal 0.00-0.20 [facility] Comment on above: Performed By: #### V BG #### [address] [address] Clerical Office: Reggie Chavez MD Abs.Imm.Granulocyte 0.07 k/uL Normal 0.00-0.30 [facility] Comment on above: Performed By: #### V BG #### [address] [address] Clerical Office: Reggie Chavez MD Abs.Neutrophil (Seg) 5.52 k/uL Normal 1.50-8.10 [facility] Comment on above: Performed By: #### V BG #### [address] [address] Clerical Office: Reggie Chavez MD Basophils/100 WBC (Bld) 0 % Normal 0-2 [facility] Comment on above: Performed By: #### V BG #### [place] [address] Clerical Office: Reggie Chavez MD Eosinophils (Bld) [#/Vol] 0.12 10*3/uL Normal 0.00-0.44 [facility] Comment on above: Performed By: #### V BG #### [address] [address] Clerical Office: Reggie Chavez MD Eosinophils/100 WBC (Bld) 2 % Normal 1-4 [facility] Comment on above: Performed By: #### V BG #### [address] [address] Clerical Office: Reggie Chavez MD Erythrocyte distribution width (RBC) [Ratio] 13.2 % Normal 11.8-14.4 [facility] Comment on above: Performed By: #### V BG #### [address] [address] Clerical Office: Reggie Chavez MD Hematocrit (Bld) [Volume fraction] 43.3 % Normal 40.7-50.3 [facility] Comment on above: Performed By: #### V BG #### [address] [address] Clerical Office: Reggie Chavez MD Hemoglobin (Bld) [Mass/Vol] 13.5 g/dL Normal 13.0-17.0 [facility] Comment on above: Performed By: #### V BG #### [place] [address] Clerical Office: Reggie Chavez MD Immature granulocytes/100 WBC (Bld) 1 % High 0 [facility] Comment on above: Performed By: #### V BG #### [place] [address] Clerical Office: Reggie Chavez MD Lymphocytes (Bld) [#/Vol] 1.67 10*3/uL Normal 1.10-3.70 [facility] Comment on above: Performed By: #### V BG #### [place] [address] Clerical Office: Reggie Chavez MD Lymphocytes/100 WBC (Bld) 21 % Low 24-43 [facility] Comment on above: Performed By: #### V BG #### [place] [address] Clerical Office: Reggie Chavez MD MCH (RBC) [Entitic mass] 32.8 pg Normal 25.2-33.5 [facility] Comment on above: Performed By: #### V BG #### [place] [address] Clerical Office: Reggie Chavez MD MCHC (RBC) [Mass/Vol] 31.2 g/dL Normal 28.4-34.8 [facility] Comment on above: Performed By: #### V BG #### [address] [place] [address] Clerical Office: Reggie Chavez MD MCV (RBC) [Entitic vol] 105.4 fL High 82.6-102.9 [facility] Comment on above: Performed By: #### V BG #### [address] [address] Clerical Office: Reggie Chavez MD Monocytes (Bld) [#/Vol] 0.46 10*3/uL Normal 0.10-1.20 [facility] Comment on above: Performed By: #### V BG #### [place] [address] Clerical Office: Reggie Chavez MD Monocytes/100 WBC (Bld) 6 % Normal 3-12 [facility] Comment on above: Performed By: #### V BG #### [place] [address] Clerical Office: Reggie Chavez MD Neutrophil (Seg) 70 % High 36-65 [facility] Comment on above: Performed By: #### V BG #### [address] [address] Clerical Office: Reggie Chavez MD NRBC Automated 0.0 per 100 WBC Normal 0.0 [facility] Comment on above: Performed By: #### V BG #### [place] [address] Clerical Office: Reggie Chavez MD Platelet mean volume (Bld) [Entitic vol] 10.6 fL Normal 8.1-13.5 [facility] Comment on above: Performed By: #### V BG #### [address] [address] Clerical Office: Reggie Chavez MD Platelets (Bld) [#/Vol] 189 10*3/uL Normal 138-453 [facility] Comment on above: Performed By: #### V BG #### [address] [address] Clerical Office: Reggie Chavez MD RBC (Bld) [#/Vol] 4.11 10*6/uL Low 4.21-5.77 [facility] Comment on above: Performed By: #### V BG #### [address] [address] Clerical Office: Reggie Chavez MD RBC morphology finding Nom (Bld) MACROCYTOSIS PRESENT Normal [facility] Comment on above: Performed By: #### V BG #### [address] [address] Clerical Office: Reggie Chavez MD WBC (Bld) [#/Vol] 7.9 10*3/uL Normal 3.5-11.3 [facility] Comment on above: Performed By: #### V BG #### [address] [address] Clerical Office: Reggie Chavez MD Magnesiumon 04-13-2023 Magnesium [Mass/Vol] 1.9 mg/dL Normal 1.6-2.6 [facility] Comment on above: Performed By: #### V BG #### [address] [address] Clerical Office: Reggie Chavez MD Basic Metabolic Profon 04-12 Anion gap [Moles/Vol] 9 mmol/L Normal 9-17 [facility] Comment on above: Performed By: #### U JV, UAX #### [address] [address] Clerical Office: Reggie Chavez MD Calcium [Mass/Vol] 9.5 mg/dL Normal 8.6-10.4 [facility] Comment on above: Performed By: #### U JV, UAX #### [facility] [address] [place] [address] Clerical Office: Reggie Chavez MD Chloride [Moles/Vol] 93 mmol/L Low 98-107 [facility] Comment on above: Performed By: #### U JV, UAX #### [facility] [address] [place] [address] Clerical Office: Reggie Chavez MD CO2 [Moles/Vol] 36 mmol/L High 20-31 [facility] Comment on above: Performed By: #### U JV, UAX #### [facility] [address] [place] [address] Clerical Office: Reggie Chavez MD Creatinine [Mass/Vol] 0.61 mg/dL Low 0.70-1.20 [facility] Comment on above: Performed By: #### U JV, UAX #### [facility] [address] [place] [address] Clerical Office: Reggie Chavez MD GFR/1.73 sq M.predicted among non-blacks MDRD (S/P/Bld) [Vol rate/Area] mL/min/{1.73_m2} Normal >60 [facility] Comment on above: Result Comment: These results are not intended for use in patients <18 years of age. eGFR results are calculated without a race factor using the 2020 CKD-EPI equation. Careful clinical correlation is recommended, particularly when comparing to results calculated using previous equations. The CKD-EPI equation is less accurate in patients with extremes of muscle mass, extra-renal metabolism of creatine, excessive creatine ingestion, or following therapy that affects renal tubular secretion. Performed By: #### U JV, UAX #### [facility] [employer] [facility] [place] [address] Clerical Office: Reggie Chavez MD Glucose [Mass/Vol] 132 mg/dL High 70-99 [facility] Comment on above: Performed By: #### U JV, UAX #### [address] [address] Clerical Office: Reggie Chavez MD Potassium [Moles/Vol] 4.4 mmol/L Normal 3.7-5.3 [facility] Comment on above: Performed By: #### U JV, UAX #### [address] [address] Clerical Office: Reggie Chavez MD Sodium [Moles/Vol] 138 mmol/L Normal 135-144 [facility] Comment on above: Performed By: #### U JV, UAX #### [address] [address] Clerical Office: Reggie Chavez MD Urea nitrogen [Mass/Vol] 31 mg/dL High 8-23 [facility] Comment on above: Performed By: #### U JV, UAX #### [address] [address] Clerical Office: Reggie Chavez MD CBC with Diffon 04-12-2023 Abs. Basophil 0.03 k/uL Normal 0.00-0.20 [facility] Comment on above: Performed By: #### U JV, UAX #### [address] [address] Clerical Office: Reggie Chavez MD Abs.Imm.Granulocyte 0.09 k/uL Normal 0.00-0.30 [facility] Comment on above: Performed By: #### U JV, UAX #### [address] [address] Clerical Office: Reggie Chavez MD Abs.Neutrophil (Seg) 6.42 k/uL Normal 1.50-8.10 [facility] Comment on above: Performed By: #### U JV, UAX #### [facility] [employer] [address] [place] [address] Clerical Office: Reggie Chavez MD Basophils/100 WBC (Bld) 0 % Normal 0-2 [facility] Comment on above: Performed By: #### U JV, UAX #### [address] [address] Clerical Office: Reggie Chavez MD Eosinophils (Bld) [#/Vol] 0.14 10*3/uL Normal 0.00-0.44 [facility] Comment on above: Performed By: #### U JV, UAX #### [address] [address] Clerical Office: Reggie Chavez MD Eosinophils/100 WBC (Bld) 2 % Normal 1-4 [facility] Comment on above: Performed By: #### U JV, UAX #### [address] [address] Clerical Office: Reggie Chavez MD Erythrocyte distribution width (RBC) [Ratio] 13.2 % Normal 11.8-14.4 [facility] Comment on above: Performed By: #### U JV, UAX #### [address] [address] Clerical Office: Reggie Chavez MD Hematocrit (Bld) [Volume fraction] 44.7 % Normal 40.7-50.3 [facility] Comment on above: Performed By: #### U JV, UAX #### [facility] [employer] [address] [place] [address] Clerical Office: Reggie Chavez MD Hemoglobin (Bld) [Mass/Vol] 14.0 g/dL Normal 13.0-17.0 [facility] Comment on above: Performed By: #### U JV, UAX #### [facility] [employer] [address] [place] [address] Clerical Office: Reggie Chavez MD Immature granulocytes/100 WBC (Bld) 1 % High 0 [facility] Comment on above: Performed By: #### U JV, UAX #### [place] [address] Clerical Office: Reggie Chavez MD Lymphocytes (Bld) [#/Vol] 1.49 10*3/uL Normal 1.10-3.70 [facility] Comment on above: Performed By: #### U JV, UAX #### [place] [address] Clerical Office: Reggie Chavez MD Lymphocytes/100 WBC (Bld) 17 % Low 24-43 [facility] Comment on above: Performed By: #### U JV, UAX #### [place] [address] Clerical Office: Reggie Chavez MD MCH (RBC) [Entitic mass] 32.9 pg Normal 25.2-33.5 [facility] Comment on above: Performed By: #### U JV, UAX #### [place] [address] Clerical Office: Reggie Chavez MD MCHC (RBC) [Mass/Vol] 31.3 g/dL Normal 28.4-34.8 [facility] Comment on above: Performed By: #### U JV, UAX #### [place] [address] Clerical Office: Reggie Chavez MD MCV (RBC) [Entitic vol] 105.2 fL High 82.6-102.9 [facility] Comment on above: Performed By: #### U JV, UAX #### [place] [address] Clerical Office: Reggie Chavez MD Monocytes (Bld) [#/Vol] 0.58 10*3/uL Normal 0.10-1.20 [facility] Comment on above: Performed By: #### U JV, UAX #### [address] [address] Clerical Office: Reggie Chavez MD Monocytes/100 WBC (Bld) 7 % Normal 3-12 [facility] Comment on above: Performed By: #### U JV, UAX #### [address] [address] Clerical Office: Reggie Chavez MD Neutrophil (Seg) 73 % High 36-65 [facility] Comment on above: Performed By: #### U JV, UAX #### [address] [address] Clerical Office: Reggie Chavez MD NRBC Automated 0.0 per 100 WBC Normal 0.0 [facility] Comment on above: Performed By: #### U JV, UAX #### [address] [address] Clerical Office: Reggie Chavez MD Platelet mean volume (Bld) [Entitic vol] 10.3 fL Normal 8.1-13.5 [facility] Comment on above: Performed By: #### U JV, UAX #### [address] [address] Clerical Office: Reggie Chavez MD Platelets (Bld) [#/Vol] 186 10*3/uL Normal 138-453 [facility] Comment on above: Performed By: #### U JV, UAX #### [address] [address] Clerical Office: Reggie Chavez MD RBC (Bld) [#/Vol] 4.25 10*6/uL Normal 4.21-5.77 [facility] Comment on above: Performed By: #### U JV, UAX #### [address] [address] Clerical Office: Reggie Chavez MD RBC morphology finding Nom (Bld) MACROCYTOSIS PRESENT Normal [facility] Comment on above: Performed By: #### U JV, UAX #### [facility] [address] [place] [address] Clerical Office: Reggie Chavez MD WBC (Bld) [#/Vol] 8.8 10*3/uL Normal 3.5-11.3 [facility] Comment on above: Performed By: #### U JV, UAX #### [facility] [address] [place] [address] Clerical Office: Reggie Chavez MD Magnesiumon 04-12-2023 Magnesium [Mass/Vol] 2.1 mg/dL Normal 1.6-2.6 [facility] Comment on above: Performed By: #### U JV, UAX #### [facility] [address] [place] [address] Clerical Office: Reggie Chavez MD Basic Metabolic Profon 04-11 Anion gap [Moles/Vol] 9 mmol/L Normal 9-17 [facility] Comment on above: Performed By: #### U JV, UAX #### [facility] [address] [place] [address] Clerical Office: Reggie Chavez MD Calcium [Mass/Vol] 9.5 mg/dL Normal 8.6-10.4 [facility] Comment on above: Performed By: #### U JV, UAX #### [facility] [address] [place] [address] Clerical Office: Reggie Chavez MD Chloride [Moles/Vol] 95 mmol/L Low 98-107 [facility] Comment on above: Performed By: #### U JV, UAX #### [facility] [address] [place] [address] Clerical Office: Reggie Chavez MD CO2 [Moles/Vol] 34 mmol/L High 20-31 [facility] Comment on above: Performed By: #### U JV, UAX #### [facility] [address] [place] [address] Clerical Office: Reggie Chavez MD Creatinine [Mass/Vol] 0.47 mg/dL Low 0.70-1.20 [facility] Comment on above: Performed By: #### U JV, UAX #### [facility] [address] [place] [address] Clerical Office: Reggie Chavez MD GFR/1.73 sq M.predicted among non-blacks MDRD (S/P/Bld) [Vol rate/Area] mL/min/{1.73_m2} Normal >60 [facility] Comment on above: Result Comment: These results are not intended for use in patients <18 years of age. eGFR results are calculated without a race factor using the 2020 CKD-EPI equation. Careful clinical correlation is recommended, particularly when comparing to results calculated using previous equations. The CKD-EPI equation is less accurate in patients with extremes of muscle mass, extra-renal metabolism of creatine, excessive creatine ingestion, or following therapy that affects renal tubular secretion. Performed By: #### U JV, UAX #### [address] [address] Clerical Office: Reggie Chavez MD Glucose [Mass/Vol] 210 mg/dL High 70-99 [facility] Comment on above: Performed By: #### U JV, UAX #### [facility] [address] [place] [address] Clerical Office: Reggie Chavez MD Potassium [Moles/Vol] 4.1 mmol/L Normal 3.7-5.3 [facility] Comment on above: Performed By: #### U JV, UAX #### [facility] [address] [place] [address] Clerical Office: Reggie Chavze MD Sodium [Moles/Vol] 138 mmol/L Normal 135-144 [facility] Comment on above: Performed By: #### U JV, UAX #### [address] [address] Clerical Office: Reggie Chavez MD Urea nitrogen [Mass/Vol] 23 mg/dL Normal 8-23 [facility] Comment on above: Performed By: #### U JV, UAX #### [address] [address] Clerical Office: Reggie Chavez MD CBC with Diffon 04-11-2023 Abs. Basophil <0.03 Normal 0.00-0.20 [facility] Comment on above: Performed By: #### U JV, UAX #### [address] [address] Clerical Office: Reggie Chavez MD Abs.Imm.Granulocyte 0.08 k/uL Normal 0.00-0.30 [facility] Comment on above: Performed By: #### U JV, UAX #### [address] [address] Clerical Office: Reggie Chavez MD Abs.Neutrophil (Seg) 9.24 k/uL High 1.50-8.10 [facility] Comment on above: Performed By: #### U JV, UAX #### [address] [address] Clerical Office: Reggie Chavez MD Basophils/100 WBC (Bld) 0 % Normal 0-2 [facility] Comment on above: Performed By: #### U JV, UAX #### [address] [address] Clerical Office: Reggie Chavez MD Eosinophils (Bld) [#/Vol] 0.08 10*3/uL Normal 0.00-0.44 [facility] Comment on above: Performed By: #### U JV, UAX #### [facility] [employer] [address] [place] [address] Clerical Office: Reggie Chavez MD Eosinophils/100 WBC (Bld) 1 % Normal 1-4 [facility] Comment on above: Performed By: #### U JV, UAX #### [facility] [employer] [address] [place] [address] Clerical Office: Reggie Chavez MD Erythrocyte distribution width (RBC) [Ratio] 13.3 % Normal 11.8-14.4 [facility] Comment on above: Performed By: #### U JV, UAX #### [facility] [employer] [address] [place] [address] Clerical Office: Reggie Chavez MD Hematocrit (Bld) [Volume fraction] 43.7 % Normal 40.7-50.3 [facility] Comment on above: Performed By: #### U JV, UAX #### [facility] [employer] [address] [place] [address] Clerical Office: Reggie Chavez MD Hemoglobin (Bld) [Mass/Vol] 13.7 g/dL Normal 13.0-17.0 [facility] Comment on above: Performed By: #### U JV, UAX #### [facility] [employer] [address] [place] [address] Clerical Office: Reggie Chavez MD Immature granulocytes/100 WBC (Bld) 1 % High 0 [facility] Comment on above: Performed By: #### U JV, UAX #### [facility] [employer] [address] [place] [address] Clerical Office: Reggie Chavez MD Lymphocytes (Bld) [#/Vol] 1.17 10*3/uL Normal 1.10-3.70 [facility] Comment on above: Performed By: #### U JV, UAX #### [address] [address] Clerical Office: Reggie Chavez MD Lymphocytes/100 WBC (Bld) 11 % Low 24-43 [facility] Comment on above: Performed By: #### U JV, UAX #### [place] [address] Clerical Office: Reggie Chavez MD MCH (RBC) [Entitic mass] 32.5 pg Normal 25.2-33.5 [facility] Comment on above: Performed By: #### U JV, UAX #### [place] [address] Clerical Office: Reggie Chavez MD MCHC (RBC) [Mass/Vol] 31.4 g/dL Normal 28.4-34.8 [facility] Comment on above: Performed By: #### U JV, UAX #### [place] [address] Clerical Office: Reggie Chavez MD MCV (RBC) [Entitic vol] 103.8 fL High 82.6-102.9 [facility] Comment on above: Performed By: #### U JV, UAX #### [place] [address] Clerical Office: Reggie Chavez MD Monocytes (Bld) [#/Vol] 0.58 10*3/uL Normal 0.10-1.20 [facility] Comment on above: Performed By: #### U JV, UAX #### [place] [address] Clerical Office: Reggie Chavez MD Monocytes/100 WBC (Bld) 5 % Normal 3-12 [facility] Comment on above: Performed By: #### U JV, UAX #### [address] [address] Clerical Office: Reggie Chavez MD Neutrophil (Seg) 82 % High 36-65 [facility] Comment on above: Performed By: #### U JV, UAX #### [facility] [address] [place] [address] Clerical Office: Reggie Chavez MD NRBC Automated 0.0 per 100 WBC Normal 0.0 [facility] Comment on above: Performed By: #### U JV, UAX #### [facility] [address] [place] [address] Clerical Office: Reggie Chavez MD Platelet mean volume (Bld) [Entitic vol] 10.4 fL Normal 8.1-13.5 [facility] Comment on above: Performed By: #### U JV, UAX #### [address] [address] Clerical Office: Reggie Chavez MD Platelets (Bld) [#/Vol] 217 10*3/uL Normal 138-453 [facility] Comment on above: Performed By: #### U JV, UAX #### [address] [address] Clerical Office: Reggie Chavez MD RBC (Bld) [#/Vol] 4.21 10*6/uL Normal 4.21-5.77 [facility] Comment on above: Performed By: #### U JV, UAX #### [address] [address] Clerical Office: Reggie Chavez MD RBC morphology finding Nom (Bld) MACROCYTOSIS PRESENT Normal [facility] Comment on above: Performed By: #### U JV, UAX #### [facility] [address] [place] [address] Clerical Office: Reggie Chavez MD WBC (Bld) [#/Vol] 11.2 10*3/uL Normal 3.5-11.3 [facility] Comment on above: Performed By: #### U JV, UAX #### [address] [address] Clerical Office: Reggie Chavez MD Magnesiumon 04-11-2023 Magnesium [Mass/Vol] 1.7 mg/dL Normal 1.6-2.6 [facility] Comment on above: Performed By: #### U JV, UAX #### [address] [address] Clerical Office: Reggie Chavez MD CBCon 04-10-2023 Erythrocyte distribution width (RBC) [Ratio] 13.2 % Normal 11.8-14.4 [facility] Comment on above: Performed By: #### V BG #### [address] [address] Clerical Office: Reggie Chavez MD Hematocrit (Bld) [Volume fraction] 44.6 % Normal 40.7-50.3 [facility] Comment on above: Performed By: #### V BG #### [address] [address] Clerical Office: Reggie Chavez MD Hemoglobin (Bld) [Mass/Vol] 14.1 g/dL Normal 13.0-17.0 [facility] Comment on above: Performed By: #### V BG #### [address] [address] Clerical Office: Reggie Chavez MD MCH (RBC) [Entitic mass] 32.9 pg Normal 25.2-33.5 [facility] Comment on above: Performed By: #### V BG #### [address] [address] Clerical Office: Reggie Chavez MD MCHC (RBC) [Mass/Vol] 31.6 g/dL Normal 28.4-34.8 [facility] [facility] Comment on above: Performed By: #### V BG #### [place] [address] Clerical Office: Reggie Chavez MD MCV (RBC) [Entitic vol] 104.0 fL High 82.6-102.9 [facility] Comment on above: Performed By: #### V BG #### [place] [address] Clerical Office: Reggie Chavez MD NRBC Automated 0.0 per 100 WBC Normal 0.0 [facility] Comment on above: Performed By: #### V BG #### [place] [address] Clerical Office: Reggie Chavez MD Platelet mean volume (Bld) [Entitic vol] 10.1 fL Normal 8.1-13.5 [facility] Comment on above: Performed By: #### V BG #### [place] [address] Clerical Office: Reggie Chavez MD Platelets (Bld) [#/Vol] 198 10*3/uL Normal 138-453 [facility] Comment on above: Performed By: #### V BG #### [place] [address] Clerical Office: Reggie Chavez MD RBC (Bld) [#/Vol] 4.29 10*6/uL Normal 4.21-5.77 [facility] Comment on above: Performed By: #### V BG #### [address] [address] Clerical Office: Reggie Chavez MD WBC (Bld) [#/Vol] 8.1 10*3/uL Normal 3.5-11.3 [facility] Comment on above: Performed By: #### V BG #### [address] [address] Clerical Office: Reggie Chavez MD Comp Metabolic Pr/rfx MGon 0 - Albumin [Mass/Vol] 3.3 g/dL Low 3.5-5.2 [facility] Comment on above: Performed By: #### V BG #### [address] [address] Clerical Office: Reggie Chavez MD Albumin/Glob Ratio 1.1 Normal 1.0-2.5 [facility] Comment on above: Performed By: #### V BG #### [address] [address] Clerical Office: Reggie Chavez MD Alkaline Phos 103 U/L Normal 40-129 [facility] Comment on above: Performed By: #### V BG #### [address] [address] Clerical Office: Reggie Chavez MD ALT [Catalytic activity/Vol] 22 U/L Normal 5-41 [facility] Comment on above: Performed By: #### V BG #### [address] [address] Clerical Office: Reggie Chavez MD Anion gap [Moles/Vol] 6 mmol/L Low 9-17 [facility] Comment on above: Performed By: #### V BG #### [address] [address] Clerical Office: Reggie Chavez MD AST [Catalytic activity/Vol] 18 U/L Normal <40 [facility] Comment on above: Performed By: #### V BG #### [address] [address] Clerical Office: Reggie Chavez MD Bilirubin [Mass/Vol] 0.5 mg/dL Normal 0.3-1.2 [facility] Comment on above: Performed By: #### V BG #### [address] [address] Clerical Office: Reggie Chavez MD Calcium [Mass/Vol] 9.3 mg/dL Normal 8.6-10.4 [facility] Comment on above: Performed By: #### V BG #### [address] [address] Clerical Office: Reggie Chavez MD Chloride [Moles/Vol] 94 mmol/L Low 98-107 [facility] Comment on above: Performed By: #### V BG #### [address] [address] Clerical Office: Reggie Chavez MD CO2 [Moles/Vol] 40 mmol/L High 20-31 [facility] Comment on above: Performed By: #### V BG #### [address] [address] Clerical Office: Reggie Chavez MD Creatinine [Mass/Vol] 0.62 mg/dL Low 0.70-1.20 [facility] Comment on above: Performed By: #### V BG #### [address] [address] Clerical Office: Reggie Chavez MD GFR/1.73 sq M.predicted among non-blacks MDRD (S/P/Bld) [Vol rate/Area] mL/min/{1.73_m2} Normal >60 [facility] Comment on above: Result Comment: These results are not intended for use in patients <18 years of age. eGFR results are calculated without a race factor using the 2020 CKD-EPI equation. Careful clinical correlation is recommended, particularly when comparing to results calculated using previous equations. The CKD-EPI equation is less accurate in patients with extremes of muscle mass, extra-renal metabolism of creatine, excessive creatine ingestion, or following therapy that affects renal tubular secretion. Performed By: #### V BG #### [facility] [address] [place] [address] Clerical Office: Reggie Chavez MD Glucose [Mass/Vol] 135 mg/dL High 70-99 [facility] Comment on above: Performed By: #### V BG #### [facility] [employer] [address] [place] [address] Clerical Office: Reggie Chavez MD Potassium [Moles/Vol] 4.2 mmol/L Normal 3.7-5.3 [facility] Comment on above: Performed By: #### V BG #### [facility] [employer] [address] [place] [address] Clerical Office: Reggie Chavez MD Protein [Mass/Vol] 6.2 g/dL Low 6.4-8.3 [facility] Comment on above: Performed By: #### V BG #### [facility] [employer] [address] [place] [address] Clerical Office: Reggie Chavez MD Sodium [Moles/Vol] 140 mmol/L Normal 135-144 [facility] Comment on above: Performed By: #### V BG #### [facility] [employer] [address] [place] [address] Clerical Office: Reggie Chavez MD Urea nitrogen [Mass/Vol] 27 mg/dL High 8-23 [facility] Comment on above: Performed By: #### V BG #### [facility] [address] [place] [address] Clerical Office: Reggie Chavez MD Magnesiumon 04-10-2023 Magnesium [Mass/Vol] 1.6 mg/dL Normal 1.6-2.6 [facility] Comment on above: Performed By: #### V BG #### [facility] [employer] [address] [place] [address] Clerical Office: Reggie Chavez MD Troponinon 04-10-2023 Troponin, High Sens 133 ng/L Critically high 0-22 [facility] Comment on above: Result Comment: High Sensitivity Troponin values cannot be compared with other Troponin methodologies. Previous Alert Value Reported Performed By: #### D ADAM, HEPXA #### [address] [address] Clerical Office: Reggie Chavez MD Venous Blood Gaseson 023 Body Temp. 37.0 Normal [facility] Comment on above: Performed By: #### V BG #### [address] [address] Clerical Office: Reggie Chavez MD Carboxy Hgb 0.0 % Normal 0-5 [facility] Comment on above: Result Comment: Reference Range: Non-Smokers 0-2% Average Smoker 2-4% Heavy Smoker <10% Performed By: #### V BG #### [address] [address] Clerical Office: Reggie Chavez MD FIO2 INFORMATION NOT PROVIDED Normal [facility] Comment on above: Performed By: #### V BG #### [address] [address] Clerical Office: Reggie Chavez MD HCO3 (Bld) [Moles/Vol] 38.8 mmol/L High 24-30 [facility] Comment on above: Performed By: #### V BG #### [address] [address] Clerical Office: Reggie Chavez MD Oxygen saturation in Blood 62.6 % Normal 60.0-85.0 [facility] Comment on above: Performed By: #### V BG #### [address] [address] Clerical Office: Reggie Chavez MD pCO2 71.1 mm Hg High 39-55 [facility] Comment on above: Performed By: #### V BG #### [address] [address] Clerical Office: Reggie Chavez MD pH (Bld) 7.355 [pH] Normal 7.320-7.420 [facility] Comment on above: Performed By: #### V BG #### [address] [address] Clerical Office: Reggie Chavez MD pO2 33.4 mm Hg Normal 30-50 [facility] Comment on above: Performed By: #### V BG #### [address] [address] Clerical Office: Reggie Chavez MD Positive Base Excess 10.2 mmol/L High 0.0-2.0 [facility] Comment on above: Performed By: #### V BG #### [address] [address] Clerical Office: Reggie Chavez MD Vitamin D 25 OHon 04-10-2023 Vitamin D 25 [place] 36.7 ng/mL Normal >29.9 [facility] Comment on above: Result Comment: Reference Range: Vitamin D status Range Deficiency <20 ng/mL Mild Deficiency 20-30 ng/mL Sufficiency 30-100 ng/mL Toxicity >100 ng/mL Performed By: #### V BG #### [address] [address] Clerical Office: Reggie Chavez MD Brain Natri. Peptideon 04-09 Natriuretic peptide B (Bld) [Mass/Vol] 76 pg/mL Normal <300 [facility] Comment on above: Result Comment: An age-independent cutoff point of 300 pg/ml has a 98% negative predictive value excluding acute heart failure. Performed By: #### D ADAM, HEPXA #### [address] [address] Clerical Office: Reggie Chavez MD CBC with Diffon 04-09-2023 Abs. Basophil 0.03 k/uL Normal 0.00-0.20 [facility] Comment on above: Performed By: #### H EPXA #### [address] [address] Clerical Office: Reggie Chavez MD Abs.Imm.Granulocyte 0.10 k/uL Normal 0.00-0.30 [facility] Comment on above: Performed By: #### H EPXA #### [address] [address] Clerical Office: Reggie Chavez MD Abs.Neutrophil (Seg) 7.68 k/uL Normal 1.50-8.10 [facility] Comment on above: Performed By: #### H EPXA #### [address] [address] Clerical Office: Reggie Chavez MD Basophils/100 WBC (Bld) 0 % Normal 0-2 [facility] Comment on above: Performed By: #### H EPXA #### [address] [address] Clerical Office: Reggie Chavez MD Eosinophils (Bld) [#/Vol] 0.10 10*3/uL Normal 0.00-0.44 [facility] Comment on above: Performed By: #### H EPXA #### [address] [address] Clerical Office: Reggie Chavez MD Eosinophils/100 WBC (Bld) 1 % Normal 1-4 [facility] Comment on above: Performed By: #### H EPXA #### [address] [address] Clerical Office: Reggie Chavez MD Erythrocyte distribution width (RBC) [Ratio] 13.2 % Normal 11.8-14.4 [facility] Comment on above: Performed By: #### H EPXA #### [address] [address] Clerical Office: Reggie Chavez MD Hematocrit (Bld) [Volume fraction] 48.3 % Normal 40.7-50.3 [facility] Comment on above: Performed By: #### H EPXA #### [address] [address] Clerical Office: Reggie Chavez MD Hemoglobin (Bld) [Mass/Vol] 15.6 g/dL Normal 13.0-17.0 [facility] Comment on above: Performed By: #### H EPXA #### [address] [address] Clerical Office: Reggie Chavez MD Immature granulocytes/100 WBC (Bld) 1 % High 0 [facility] Comment on above: Performed By: #### H EPXA #### [address] [address] Clerical Office: Reggei Chavez MD Lymphocytes (Bld) [#/Vol] 1.95 10*3/uL Normal 1.10-3.70 [facility] Comment on above: Performed By: #### H EPXA #### [address] [address] Clerical Office: Reggie Chavez MD Lymphocytes/100 WBC (Bld) 19 % Low 24-43 [facility] Comment on above: Performed By: #### H EPXA #### [address] [address] Clerical Office: Reggie Chavez MD MCH (RBC) [Entitic mass] 33.0 pg Normal 25.2-33.5 [facility] Comment on above: Performed By: #### H EPXA #### [address] [address] Clerical Office: Reggie Chavez MD MCHC (RBC) [Mass/Vol] 32.3 g/dL Normal 28.4-34.8 [facility] Comment on above: Performed By: #### H EPXA #### [address] [address] Clerical Office: Reggie Chavez MD MCV (RBC) [Entitic vol] 102.1 fL Normal 82.6-102.9 [facility] Comment on above: Performed By: #### H EPXA #### [address] [address] Clerical Office: Reggie Chavez MD Monocytes (Bld) [#/Vol] 0.61 10*3/uL Normal 0.10-1.20 [facility] Comment on above: Performed By: #### H EPXA #### [address] [address] Clerical Office: Reggie Chavez MD Monocytes/100 WBC (Bld) 6 % Normal 3-12 [facility] Comment on above: Performed By: #### H EPXA #### [address] [address] Clerical Office: Reggie Chavez MD Neutrophil (Seg) 73 % High 36-65 [facility] Comment on above: Performed By: #### H EPXA #### [address] [address] Clerical Office: Reggie Chavez MD NRBC Automated 0.0 per 100 WBC Normal 0.0 [facility] Comment on above: Performed By: #### H EPXA #### [address] [address] Clerical Office: Reggie Chavez MD Platelet mean volume (Bld) [Entitic vol] 10.6 fL Normal 8.1-13.5 [facility] Comment on above: Performed By: #### H EPXA #### [address] [address] Clerical Office: Reggie Chavez MD Platelets (Bld) [#/Vol] 214 10*3/uL Normal 138-453 [facility] Comment on above: Performed By: #### H EPXA #### [address] [address] Clerical Office: Reggie Chavez MD RBC (Bld) [#/Vol] 4.73 10*6/uL Normal 4.21-5.77 [facility] Comment on above: Performed By: #### H EPXA #### [address] [address] Clerical Office: Reggie Chavez MD WBC (Bld) [#/Vol] 10.5 10*3/uL Normal 3.5-11.3 [facility] Comment on above: Performed By: #### H EPXA #### [address] [address] Clerical Office: Reggie Chavez MD Comp Metabolic Profon 2022 Albumin [Mass/Vol] 3.8 g/dL Normal 3.5-5.2 [facility] Comment on above: Performed By: #### Cooper ADAM, HEPXA #### [address] [address] Clerical Office: Reggie Chavez MD Albumin/Glob Ratio 1.2 Normal 1.0-2.5 [facility] Comment on above: Performed By: #### Cooper MEDINA, HEPXA #### [facility] [employer] [address] [place] [address] Clerical Office: Reggie Chavez MD Alkaline Phos 117 U/L Normal 40-129 [facility] Comment on above: Performed By: #### D ADAM, HEPXA #### [facility] [place] [address] Clerical Office: Reggie Chavez MD ALT [Catalytic activity/Vol] 27 U/L Normal 5-41 [facility] Comment on above: Performed By: #### D ADAM, HEPXA #### [facility] [address] [place] [address] Clerical Office: Reggie Chavez MD Anion gap [Moles/Vol] 11 mmol/L Normal 9-17 [facility] Comment on above: Performed By: #### D ADAM, HEPXA #### [facility] [address] [place] [address] Clerical Office: Reggie Chavez MD AST [Catalytic activity/Vol] 22 U/L Normal <40 [facility] Comment on above: Performed By: #### D ADAM, HEPXA #### [facility] [address] [place] [address] Clerical Office: Reggie Chavez MD Bilirubin [Mass/Vol] 0.6 mg/dL Normal 0.3-1.2 [facility] Comment on above: Performed By: #### D ADAM, HEPXA #### [facility] [address] [place] [address] Clerical Office: Reggie Chavez MD Calcium [Mass/Vol] 9.7 mg/dL Normal 8.6-10.4 [facility] Comment on above: Performed By: #### D ADAM, HEPXA #### [facility] [address] [place] [address] Clerical Office: Reggie Chavez MD Chloride [Moles/Vol] 92 mmol/L Low 98-107 [facility] Comment on above: Performed By: #### D ADAM, HEPXA #### [facility] [address] [place] [address] Clerical Office: Reggie Chavez MD CO2 [Moles/Vol] 35 mmol/L High 20-31 [facility] Comment on above: Performed By: #### Cooper MEDINA, HEPXA #### [facility] [address] [place] [address] Clerical Office: Reggie Chavez MD Creatinine [Mass/Vol] 0.55 mg/dL Low 0.70-1.20 [facility] Comment on above: Performed By: #### Cooper ADAM, HEPXA #### [facility] [address] [place] [address] Clerical Office: Reggie Chavez MD GFR/1.73 sq M.predicted among non-blacks MDRD (S/P/Bld) [Vol rate/Area] mL/min/{1.73_m2} Normal >60 [facility] Comment on above: Result Comment: These results are not intended for use in patients <18 years of age. eGFR results are calculated without a race factor using the 2020 CKD-EPI equation. Careful clinical correlation is recommended, particularly when comparing to results calculated using previous equations. The CKD-EPI equation is less accurate in patients with extremes of muscle mass, extra-renal metabolism of creatine, excessive creatine ingestion, or following therapy that affects renal tubular secretion. Performed By: #### Cooper MEDINA HEPXA #### [address] [address] Clerical Office: Reggie Chavez MD Glucose [Mass/Vol] 141 mg/dL High 70-99 [facility] Comment on above: Performed By: #### Cooper MEDINA HEPXA #### [facility] [employer] [address] [place] [address] Clerical Office: Reggie Chavez MD Potassium [Moles/Vol] 4.1 mmol/L Normal 3.7-5.3 [facility] Comment on above: Performed By: #### Cooper MEDINA HEPXA #### [facility] [employer] [address] [place] [address] Clerical Office: Reggie Chavez MD Protein [Mass/Vol] 7.0 g/dL Normal 6.4-8.3 [facility] Comment on above: Performed By: #### Cooper ADAM, HEPXA #### [facility] [address] [place] [address] Clerical Office: Reggie Chavez MD Sodium [Moles/Vol] 138 mmol/L Normal 135-144 [facility] Comment on above: Performed By: #### D ADAM, HEPXA #### [facility] [address] [place] [address] Clerical Office: Reggie Chavez MD Urea nitrogen [Mass/Vol] 33 mg/dL High 8-23 [facility] Comment on above: Performed By: #### Cooper MEDINA, HEPXA #### [facility] [address] [place] [address] Clerical Office: Reggie Chavez MD Lactate, Sepsison 04-09-2023 Lactic Acid,Sep Wbld 2.1 mmol/L High 0.5-1.9 [facility] Comment on above: Performed By: #### V BG #### [facility] [employer] [address] [place] [address] Clerical Office: Reggie Chavez MD Lactic Acid,Sep Wbld 2.5 mmol/L High 0.5-1.9 [facility] Comment on above: Performed By: #### H EPXA #### [facility] [employer] [address] [place] [address] Clerical Office: Reggie Chavez MD Magnesiumon 04-09-2023 Magnesium [Mass/Vol] 1.5 mg/dL Low 1.6-2.6 [facility] Comment on above: Performed By: #### U JV, UAX #### [facility] [address] [place] [address] Clerical Office: Reggie Chavez MD Specimen Rejectionon 023 Reason for rejection Unable to perform testing: Specimen contaminated. Normal [facility] Comment on above: Performed By: #### R EJEC #### [address] [address] Clerical Office: Reggie Chavez MD Source of sample .BLOOD Normal [facility] Comment on above: Performed By: #### R EJEC #### [address] [address] Clerical Office: Reggie Chavez MD Test ordered BNP, CP, TROPI [facility] Comment on above: Performed By: #### R EJEC #### [address] [address] Clerical Office: Reggie Chavez MD Reason for rejection Unable to perform testing: Specimen hemolyzed. Normal [facility] Comment on above: Performed By: #### H EPXA #### [address] [address] Clerical Office: Reggie Chavez MD Source of sample .BLOOD Normal [facility] Comment on above: Performed By: #### H EPXA #### [address] [address] Clerical Office: Reggie Chavez MD Test ordered BNP,CP,TROPI [facility] Comment on above: Performed By: #### H EPXA #### [address] [address] Clerical Office: Reggie Chavez MD Troponinon 04-09-2023 Troponin, High Sens 148 ng/L Critically high 0-22 [facility] Comment on above: Result Comment: High Sensitivity Troponin values cannot be compared with other Troponin methodologies. Previous Alert Value Reported Performed By: #### U JV, UAX #### [address] [address] Clerical Office: Reggie Chavez MD Troponin, High Sens 155 ng/L Critically high 0-22 [facility] Comment on above: Result Comment: High Sensitivity Troponin values cannot be compared with other Troponin methodologies. Performed By: #### D ADAM, HEPXA #### [address] [address] Clerical Office: Reggie Chavez MD UA w/Reflex Cultureon 2022 Bilirubin, SemiQt,Ur Negative Normal NEG [facility] Comment on above: Performed By: #### U JV, UAX #### [address] [address] Clerical Office: Reggie Chavez MD Blood, Urine Negative Normal NEG [facility] Comment on above: Performed By: #### U JV, UAX #### [address] [address] Clerical Office: Reggie Chavez MD Clarity (U) Clear Normal CLEAR [facility] Comment on above: Performed By: #### U JV, UAX #### [address] [address] Clerical Office: Reggie Chavez MD Color (U) Yellow Normal YEL [facility] Comment on above: Performed By: #### U JV, UAX #### [address] [address] Clerical Office: Reggie Chavez MD Comment Microscopic exam not performed based on chemical results unless requested in Normal [facility] Comment on above: Result Comment: orig inal order. Performed By: #### U JV, UAX #### [address] [address] Clerical Office: Reggie Chavez MD Glucose Ql (U) Negative Normal NEG [facility] Comment on above: Performed By: #### U JV, UAX #### [address] [address] Clerical Office: Reggie Chavez MD Ketones Ql (U) Negative Normal NEG [facility] Comment on above: Performed By: #### U JV, UAX #### [address] [address] Clerical Office: Reggie Chavez MD Leukocyte esterase Test strip Ql (U) Negative Normal NEG [facility] Comment on above: Performed By: #### U JV, UAX #### [address] [address] Clerical Office: Reggie Chavez MD Nitrite,Ur Negative Normal NEG [facility] Comment on above: Performed By: #### U JV, UAX #### [address] [address] Clerical Office: Reggie Chavez MD PH,Ur 5.5 Normal 5.0-8.0 [facility] Comment on above: Performed By: #### U JV, UAX #### [address] [address] Clerical Office: Reggie Chavez MD Protein Ql (U) Negative Normal NEG [facility] Comment on above: Performed By: #### U JV, UAX #### [address] [address] Clerical Office: Reggie Chavez MD Spec. [place],Ur 1.014 Normal 1.005-1.030 [facility] Comment on above: Performed By: #### U JV, UAX #### [address] [address] Clerical Office: Reggie Chavez MD Urobilinogen,Ur Normal Normal NORM [facility] Comment on above: Performed By: #### U JV, UAX #### [address] [place], [place] [address] Clerical Office: Reggie Chavez MD XR CHEST (2 VW)on 04-09-2023 XR CHEST (2 VW) EXAMINATION: TWO XRAY VIEWS OF THE CHEST 04/09/2023 10:17 am COMPARISON: 04/05/2033 HISTORY: ORDERING SYSTEM PROVIDED HISTORY: SOB TECHNOLOGIST PROVIDED HISTORY: SOB FINDINGS: Chronic elevation of left hemidiaphragm. Interval development of discoid atelectasis in the left lower lobe and small left pleural effusion..The cardiac size is normal.. Pulmonary vascularity appears normal. There is mild ectasia of the thoracic aorta. Compression fracture of what appears to be T7 body with 60% loss of normal height..The hilar structures are normal. IMPRESSION: Interval development of left basal atelectasis and small left pleural effusion Compression fracture of what appears to be T7 body. Interpreted by: Fred Mcgovern MD Signed by: Fred Mcgovern MD 04/09/23 Final result Normal [facility] Basic Metab w/rfx MGon 04-08 Anion gap [Moles/Vol] 11 mmol/L Normal 9-17 [facility] Comment on above: Performed By: #### H EPXA #### [facility] [employer] [address] [place] [address] Clerical Office: Reggie Chavez MD Calcium [Mass/Vol] 9.2 mg/dL Normal 8.6-10.4 [facility] Comment on above: Performed By: #### H EPXA #### [facility] [employer] [address] [place] [address] Clerical Office: Reggie Chavez MD Chloride [Moles/Vol] 97 mmol/L Low 98-107 [facility] Comment on above: Performed By: #### H EPXA #### [facility] [employer] [address] [place] [address] Clerical Office: Reggie Chavez MD CO2 [Moles/Vol] 30 mmol/L Normal 20-31 [facility] Comment on above: Performed By: #### H EPXA #### [facility] [employer] [address] [place] [address] Clerical Office: Reggie Chavez MD Creatinine [Mass/Vol] 0.58 mg/dL Low 0.70-1.20 [facility] Comment on above: Performed By: #### H EPXA #### [address] [address] Clerical Office: Reggie Chavez MD GFR/1.73 sq M.predicted among non-blacks MDRD (S/P/Bld) [Vol rate/Area] mL/min/{1.73_m2} Normal >60 [facility] Comment on above: Result Comment: These results are not intended for use in patients <18 years of age. eGFR results are calculated without a race factor using the 2020 CKD-EPI equation. Careful clinical correlation is recommended, particularly when comparing to results calculated using previous equations. The CKD-EPI equation is less accurate in patients with extremes of muscle mass, extra-renal metabolism of creatine, excessive creatine ingestion, or following therapy that affects renal tubular secretion. Performed By: #### H EPXA #### [facility] [employer] [address] [place] [address] Clerical Office: Reggie Chavez MD Glucose [Mass/Vol] 165 mg/dL High 70-99 [facility] Comment on above: Performed By: #### H EPXA #### [facility] [employer] [address] [place] [address] Clerical Office: Reggie Chavez MD Potassium [Moles/Vol] 4.3 mmol/L Normal 3.7-5.3 [facility] Comment on above: Performed By: #### H EPXA #### [facility] [employer] [address] [place] [address] Clerical Office: Reggei Chavez MD Sodium [Moles/Vol] 138 mmol/L Normal 135-144 [facility] Comment on above: Performed By: #### H EPXA #### [facility] [address] [place] [address] Clerical Office: Reggie Chavez MD Urea nitrogen [Mass/Vol] 30 mg/dL High 06-07 [facility] Comment on above: Performed By: #### H EPXA #### [facility] [employer] [address] [place] [address] Clerical Office: Reggie Chavez MD Hemoglobin A1Con 04-08-2023 Glucose [Mass/Vol] 171 mg/dL Normal [facility] Comment on above: Result Comment: The ADA and AACC recommend providing the estimated average glucose result to permit better patient understanding of their HBA1c result. Performed By: #### H EPXA #### [facility] [employer] [address] [place] [address] Clerical Office: Reggie Chavez MD HbA1c (Bld) [Mass fraction] 7.6 % High 4.0-6.0 [facility] Comment on above: Performed By: #### H EPXA #### [facility] [employer] [address] [place] [address] Clerical Office: Reggie Chavez MD CBCon 7 Erythrocyte distribution width (RBC) [Ratio] 13.2 % Normal 11.8-14.4 [facility] Comment on above: Performed By: #### H EPXA #### [facility] [employer] [address] [place] [address] Clerical Office: Reggie Chavez MD Hematocrit (Bld) [Volume fraction] 47.5 % Normal 40.7-50.3 [facility] Comment on above: Performed By: #### H EPXA #### [facility] [employer] [address] [place] [address] Clerical Office: Reggie Chavez MD Hemoglobin (Bld) [Mass/Vol] 14.4 g/dL Normal 13.0-17.0 [facility] Comment on above: Performed By: #### H EPXA #### [address] [address] Clerical Office: Reggie Chavez MD MCH (RBC) [Entitic mass] 33.1 pg Normal 25.2-33.5 [facility] Comment on above: Performed By: #### H EPXA #### [address] [address] Clerical Office: Reggie Chavez MD MCHC (RBC) [Mass/Vol] 30.3 g/dL Normal 28.4-34.8 [facility] Comment on above: Performed By: #### H EPXA #### [address] [address] Clerical Office: Reggie Chavez MD MCV (RBC) [Entitic vol] 109.2 fL High 82.6-102.9 [facility] Comment on above: Performed By: #### H EPXA #### [address] [address] Clerical Office: Reggie Chavez MD NRBC Automated 0.0 per 100 WBC Normal 0.0 [facility] Comment on above: Performed By: #### H EPXA #### [address] [address] Clerical Office: Reggie Chavez MD Platelet mean volume (Bld) [Entitic vol] 10.0 fL Normal 8.1-13.5 [facility] Comment on above: Performed By: #### H EPXA #### [address] [address] Clerical Office: Reggie Chavez MD Platelets (Bld) [#/Vol] 202 10*3/uL Normal 138-453 [facility] Comment on above: Performed By: #### H EPXA #### [address] [address] Clerical Office: Reggie Chavez MD RBC (Bld) [#/Vol] 4.35 10*6/uL Normal 4.21-5.77 [facility] Comment on above: Performed By: #### H EPXA #### [facility] [address] [place] [address] Clerical Office: Reggie Chavez MD WBC (Bld) [#/Vol] 8.5 10*3/uL Normal 3.5-11.3 [facility] Comment on above: Performed By: #### H EPXA #### [facility] [place] [address] Clerical Office: Reggie Chavez MD Creatine Kinaseon 04-07-2023 CK [Catalytic activity/Vol] 69 U/L Normal 39-308 [facility] Comment on above: Performed By: #### H EPXA #### [facility] [address] [place] [address] Clerical Office: Reggie Chavez MD D-Dimer Teston 04-07-2023 D-Dimer Test 0.27 ug/mL FEU Normal 0.00-0.57 [facility] Comment on above: Result Comment: When combined with a low clinical probability, a D dimer value of <0.50 ug/mL FEU is considered negative for DVT and PE (negative predictive value of 98%, sensitivity of 97%). If this test is not being used to help rule out DVT and PE, then the following reference range should be utilized: 0.00 - 0.57 ug/mL FEU. The D-Dimer assay is intended for use as an aid in the diagnosis of venous thromboembolism (DVT and PE) and the results should be interpreted in conjunction with the patient's medical history, clinical presentation, and other findings. Elevated levels of D-dimer activity can be seen in any state of coagulation activation and is not recommended in patients with therapeutic dose anticoagulant therapy for >24 hours, fibrinolytic therapy within the previous 7 days, trauma or surgery within the previous 4 weeks, disseminated malignancies, aortic aneurysm, sepsis, severe infections, pneumonia, severe skin infections, liver cirrhosis, advanced age, coronary disease, diabetes, and . A very low percentage of patients with DVT may yield D-dimer results below the cutoff of 0.5 ug/mL FEU. This is known to be more prevalent in patients with distal DVT. Performed By: #### D ADAM, HEPXA #### [facility] [address] [place] [address] Clerical Office: Reggie Chavez MD Hemoglobin A1Con 04-07-2023 Glucose [Mass/Vol] 180 mg/dL Normal [facility] Comment on above: Result Comment: The ADA and AACC recommend providing the estimated average glucose result to permit better patient understanding of their HBA1c result. Performed By: #### R EJEC #### [facility] [employer] [address] [place] [address] Clerical Office: Reggie Chavez MD HbA1c (Bld) [Mass fraction] 7.9 % High 4.0-6.0 [facility] Comment on above: Performed By: #### R EJEC #### [facility] [address] [place] [address] Clerical Office: Reggie Chavez MD Heparin Anti-Xaon 6 Heparin Anti-Xa <0.10 Normal [facility] Comment on above: Performed By: #### D ADAM, HEPXA #### [facility] [address] [place] [address] Clerical Office: Reggie Chavez MD Heparin Anti-Xa 0.60 IU/L Normal [facility] Comment on above: Performed By: #### U JV, UAX #### [facility] [employer] [address] [place] [address] Clerical Office: Reggie Chavez MD Heparin Anti-Xa 0.29 IU/L Normal [facility] Comment on above: Performed By: #### H EPXA #### [facility] [employer] [address] [place] [address] Clerical Office: Reggie Chavez MD CBCon 04-06-2023 Erythrocyte distribution width (RBC) [Ratio] 13.3 % Normal 11.8-14.4 [facility] Comment on above: Performed By: #### V BG #### [address] [address] Clerical Office: Reggie Chavez MD Hematocrit (Bld) [Volume fraction] 44.8 % Normal 40.7-50.3 [facility] Comment on above: Performed By: #### V BG #### [address] [address] Clerical Office: Reggie Chavez MD Hemoglobin (Bld) [Mass/Vol] 14.2 g/dL Normal 13.0-17.0 [facility] Comment on above: Performed By: #### V BG #### [address] [address] Clerical Office: Reggie Chavez MD MCH (RBC) [Entitic mass] 32.5 pg Normal 25.2-33.5 [facility] Comment on above: Performed By: #### V BG #### [address] [address] Clerical Office: Reggie Chavez MD MCHC (RBC) [Mass/Vol] 31.7 g/dL Normal 28.4-34.8 [facility] Comment on above: Performed By: #### V BG #### [address] [address] Clerical Office: Reggie Chavze MD MCV (RBC) [Entitic vol] 102.5 fL Normal 82.6-102.9 [facility] Comment on above: Performed By: #### V BG #### [address] [address] Clerical Office: Reggie Chavez MD NRBC Automated 0.0 per 100 WBC Normal 0.0 [facility] Comment on above: Performed By: #### V BG #### [address] [address] Clerical Office: Reggie Chavez MD Platelet mean volume (Bld) [Entitic vol] 10.3 fL Normal 8.1-13.5 [facility] Comment on above: Performed By: #### V BG #### [address] [address] Clerical Office: Reggie Chavez MD Platelets (Bld) [#/Vol] 188 10*3/uL Normal 138-453 [facility] Comment on above: Performed By: #### V BG #### [address] [address] Clerical Office: Reggie Chavez MD RBC (Bld) [#/Vol] 4.37 10*6/uL Normal 4.21-5.77 [facility] Comment on above: Performed By: #### V BG #### [address] [address] Clerical Office: Reggie Chavez MD WBC (Bld) [#/Vol] 8.1 10*3/uL Normal 3.5-11.3 [facility] Comment on above: Performed By: #### V BG #### [place] [address] Clerical Office: Reggie Chavez MD Erythrocyte distribution width (RBC) [Ratio] 13.2 % Normal 11.8-14.4 [facility] Comment on above: Performed By: #### R EJEC #### [address] [address] Clerical Office: Reggie Chavez MD Hematocrit (Bld) [Volume fraction] 47.4 % Normal 40.7-50.3 [facility] Comment on above: Performed By: #### R EJEC #### [address] [address] Clerical Office: Reggie Chavez MD Hemoglobin (Bld) [Mass/Vol] 15.0 g/dL Normal 13.0-17.0 [facility] Comment on above: Performed By: #### R EJEC #### [address] [address] Clerical Office: Reggie Chavez MD MCH (RBC) [Entitic mass] 32.7 pg Normal 25.2-33.5 [facility] Comment on above: Performed By: #### R EJEC #### [address] [address] Clerical Office: Reggie Chavez MD MCHC (RBC) [Mass/Vol] 31.6 g/dL Normal 28.4-34.8 [facility] Comment on above: Performed By: #### R EJEC #### [address] [address] Clerical Office: Reggie Chavez MD MCV (RBC) [Entitic vol] 103.3 fL High 82.6-102.9 [facility] Comment on above: Performed By: #### R EJEC #### [address] [address] Clerical Office: Reggie Chavez MD NRBC Automated 0.0 per 100 WBC Normal 0.0 [facility] Comment on above: Performed By: #### R EJEC #### [address] [address] Clerical Office: Reggie Chavez MD Platelet mean volume (Bld) [Entitic vol] 10.4 fL Normal 8.1-13.5 [facility] Comment on above: Performed By: #### R EJEC #### [address] [address] Clerical Office: Reggie Chavez MD Platelets (Bld) [#/Vol] 211 10*3/uL Normal 138-453 [facility] Comment on above: Performed By: #### R EJEC #### [address] [address] Clerical Office: Reggie Chavez MD RBC (Bld) [#/Vol] 4.59 10*6/uL Normal 4.21-5.77 [facility] Comment on above: Performed By: #### R EJEC #### [address] [address] Clerical Office: Reggie Chavez MD WBC (Bld) [#/Vol] 8.7 10*3/uL Normal 3.5-11.3 [facility] Comment on above: Performed By: #### R EJEC #### [address] [address] Clerical Office: Reggie Chavez MD Comp Metabolic Pr/rfx MGon 0 - Albumin [Mass/Vol] 3.7 g/dL Normal 3.5-5.2 [facility] Comment on above: Performed By: #### C MPX #### [address] [address] Clerical Office: Reggie Chavez MD Albumin/Glob Ratio 1.2 Normal 1.0-2.5 [facility] Comment on above: Performed By: #### C MPX #### [address] [address] Clerical Office: Reggie Chavez MD Alkaline Phos 107 U/L Normal 40-129 [facility] Comment on above: Performed By: #### C MPX #### [address] [address] Clerical Office: Reggie Chavez MD ALT [Catalytic activity/Vol] 22 U/L Normal 5-41 [facility] Comment on above: Performed By: #### C MPX #### [address] [address] Clerical Office: Reggie Chavez MD Bilirubin [Mass/Vol] 0.5 mg/dL Normal 0.3-1.2 [facility] Comment on above: Performed By: #### C MPX #### [address] [address] Clerical Office: Reggie Chavez MD Protein [Mass/Vol] 6.8 g/dL Normal 6.4-8.3 [facility] Comment on above: Performed By: #### C MPX #### [address] [address] Clerical Office: Reggie Chavez MD Anion gap [Moles/Vol] 12 mmol/L Normal 9-17 [facility] Comment on above: Performed By: #### C MPX #### [address] [address] Clerical Office: Reggie Chavez MD AST [Catalytic activity/Vol] 24 U/L Normal <40 [facility] Comment on above: Performed By: #### C MPX #### [address] [address] Clerical Office: Reggie Chavez MD Calcium [Mass/Vol] 8.9 mg/dL Normal 8.6-10.4 [facility] Comment on above: Performed By: #### C MPX #### [address] [address] Clerical Office: Reggie Chavez MD Chloride [Moles/Vol] 98 mmol/L Normal 98-107 [facility] Comment on above: Performed By: #### C MPX #### [address] [address] Clerical Office: Reggie Chavez MD CO2 [Moles/Vol] 30 mmol/L Normal 20-31 [facility] Comment on above: Performed By: #### C MPX #### [address] [address] Clerical Office: Reggie Chavez MD Creatinine [Mass/Vol] 0.34 mg/dL Low 0.70-1.20 [facility] Comment on above: Performed By: #### C MPX #### [address] [address] Clerical Office: Reggie Chavez MD GFR/1.73 sq M.predicted among non-blacks MDRD (S/P/Bld) [Vol rate/Area] mL/min/{1.73_m2} Normal >60 [facility] Comment on above: Result Comment: These results are not intended for use in patients <18 years of age. eGFR results are calculated without a race factor using the 2020 CKD-EPI equation. Careful clinical correlation is recommended, particularly when comparing to results calculated using previous equations. The CKD-EPI equation is less accurate in patients with extremes of muscle mass, extra-renal metabolism of creatine, excessive creatine ingestion, or following therapy that affects renal tubular secretion. Performed By: #### C MPX #### [address] [address] Clerical Office: Reggie Chavez MD Glucose [Mass/Vol] 215 mg/dL High 70-99 [facility] Comment on above: Performed By: #### C MPX #### [address] [address] Clerical Office: Reggie Chavez MD Potassium [Moles/Vol] 4.0 mmol/L Normal 3.7-5.3 [facility] Comment on above: Result Comment: SPEC IMEN SLIGHTLY HEMOLYZED, RESULTS MAY BE ADVERSELY AFFECTED. Performed By: #### C MPX #### [address] [place] [address] Clerical Office: Reggie Chavez MD Sodium [Moles/Vol] 140 mmol/L Normal 135-144 [facility] Comment on above: Performed By: #### C MPX #### [address] [address] Clerical Office: Reggie Chavez MD Urea nitrogen [Mass/Vol] 18 mg/dL Normal 8-23 [facility] Comment on above: Performed By: #### C MPX #### [address] [address] Clerical Office: Reggie Chavez MD Heparin Anti-Xaon 04-06-2023 Heparin Anti-Xa 0.36 IU/L Normal [facility] Comment on above: Performed By: #### D ADAM, HEPXA #### [address] [address] Clerical Office: Reggie Chavez MD Heparin Anti-Xa 0.46 IU/L Normal [facility] Comment on above: Performed By: #### U JV, UAX #### [address] [address] Clerical Office: Reggie Chavez MD Lactic Acidon 04-06-2023 Lactic Acid,Whole Bl 1.0 mmol/L Normal 0.7-2.1 [facility] Comment on above: Performed By: #### H EPXA #### [address] [address] Clerical Office: Reggie Chavez MD Phosphorus, Inorg.on 023 Phosphorus, Inorg. 3.2 mg/dL Normal 2.5-4.5 [facility] Comment on above: Performed By: #### H EPXA #### [address] [address] Clerical Office: Reggie Chavez MD Procalcitoninon 04-06-2023 Procalcitonin 0.06 ng/mL Normal <0.09 [facility] Comment on above: Result Comment: Suspected Sepsis: <0.50 ng/mL Low likelihood of sepsis. 0.50-2.00 ng/mL Increased likelihood of sepsis. Antibiotics encouraged. >2.00 ng/mL High risk of sepsis/shock. Antibiotics strongly encouraged. Suspected Lower Resp Tract Infections: <0.24 ng/mL Low likelihood of bacterial infection. >0.24 ng/mL Increased likelihood of bacterial infection. Antibiotics encouraged. With successful antibiotic therapy, PCT levels should decrease rapidly. (Half-life of 24 to 36 hours.) Procalcitonin values from samples collected within the first 6 hours of systemic infection may still be low. Retesting may be indicated. Values from day 1 and day 4 can be entered into the Change in Procalcitonin Calculator (www.ijtcdd-vui-rhleqmdlwk.Intelen) to determine the patient's Mortality Risk Prognosis In healthy neonates, plasma Procalcitonin (PCT) concentrations increase gradually after , reaching peak values at about 24 hours of age then decrease to normal values below 0.5 ng/mL by 48-72 hours of age. Performed By: #### R EJEC #### [employer] [address] [place] [address] Clerical Office: Reggie Chavez MD Resp Viral Panelon 3 Adenovirus Not detected Normal [facility] Comment on above: Performed By: #### U JV, UAX #### [employer] [address] [place] [address] Clerical Office: MD Percy Anderson.parapertussis Not detected Normal [facility] Comment on above: Performed By: #### U JV, UAX #### [employer] [address] [place] [address] Clerical Office: Reggie Chavez MD Bordetella pertussis Not detected Normal [facility] Comment on above: Performed By: #### U JV, UAX #### [facility] [address] [place] [address] Clerical Office: Reggie Chavez MD Chlamyd.pneumoniae Not detected Normal [facility] Comment on above: Performed By: #### U JV, UAX #### [facility] [address] [place] [address] Clerical Office: Reggie Chavez MD Coronavirus 229E Not detected Normal [facility] Comment on above: Performed By: #### U JV, UAX #### [facility] [address] [place] [address] Clerical Office: Reggie Chavez MD Coronavirus HKU1 Not detected [facility] Comment on above: Performed By: #### U JV, UAX #### [facility] [employer] [address] [place] [address] Clerical Office: Reggie Chavez MD Coronavirus NL63 Not detected [facility] Comment on above: Performed By: #### U JV, UAX #### [facility] [employer] [address] [place] [address] Clerical Office: Reggie Chavez MD Coronavirus OC43 Not detected [facility] Comment on above: Performed By: #### U JV, UAX #### [facility] [employer] [address] [place] [address] Clerical Office: Reggie Chavez MD Human Metapneumo Not detected [facility] Comment on above: Performed By: #### U JV, UAX #### [facility] [employer] [address] [place] [address] Clerical Office: Reggie Chavez MD Influenza A Not detected [facility] Comment on above: Performed By: #### U JV, UAX #### [facility] [address] [place] [address] Clerical Office: Reggie Chavez MD Influenza B Not detected Normal [facility] Comment on above: Performed By: #### U JV, UAX #### [address] [address] Clerical Office: Reggie Chavez MD Mycoplas.pneumoniae Not detected Normal [facility] Comment on above: Result Comment: Perf ormed by multiplexed nucleic acid assay. Performed By: #### U JV, UAX #### [address] [address] Clerical Office: Reggie Chavez MD Parainfluenza [address] [facility] Comment on above: Performed By: #### U JV, UAX #### [address] [address] Clerical Office: Reggie Chavez MD Parainfluenza [address] [facility] Comment on above: Performed By: #### U JV, UAX #### [address] [address] Clerical Office: Reggie Chavez MD Parainfluenza [address] [facility] Comment on above: Performed By: #### U JV, UAX #### [address] [address] Clerical Office: Reggie Chavez MD Parainfluenza [address] [facility] Comment on above: Performed By: #### U JV, UAX #### [address] [address] Clerical Office: Reggie Chavez MD Resp Syncytial Virus Not detected Normal [facility] Comment on above: Performed By: #### U JV, UAX #### [address] [address] Clerical Office: Reggie Chavez MD Rhino/Enterovirus Detected Abnormal [facility] Comment on above: Performed By: #### U JV, UAX #### [address] [address] Clerical Office: Reggie Chavez MD SARS-CoV-2 (COVID-19) RNA ZACHARIAH+probe Ql (Unsp spec) Not detected [facility] [facility] Comment on above: Performed By: #### [facility] [place] #### [address] [address] Clerical Office: Reggie Chavez MD TSH w/reflex to FT4on 2022 Thyroid Stim. Horm. 2.31 uIU/mL Normal 0.30-5.00 [facility] Comment on above: Performed By: #### H EPXA #### [address] [address] Clerical Office: Reggie Chavez MD APTTon 04-05-2023 aPTT Coag (Bld) [Time] 27.1 s Normal 23.0-36.5 [facility] Comment on above: Result Comment: IV Heparin Therapy Range: 66.0-92.0 sec Performed By: #### B C #### [address] [address] Clerical Office: Reggie Chavez MD Basic Metabolic Profon 04-05 Anion gap [Moles/Vol] 15 mmol/L Normal 9-17 [facility] Comment on above: Performed By: #### U [facility], [place] #### [address] [address] Clerical Office: Reggie Chavez MD Calcium [Mass/Vol] 9.5 mg/dL Normal 8.6-10.4 [facility] [place] Comment on above: Performed By: #### U JV, [place] #### [facility] [address] [place] [address] Clerical Office: Reggie Chavez MD Chloride [Moles/Vol] 95 mmol/L Low 98-107 [facility] Comment on above: Performed By: #### U JV, [place] #### [facility] [address] [place] [address] Clerical Office: Reggie Chavez MD CO2 [Moles/Vol] 31 mmol/L Normal 20-31 [facility] Comment on above: Performed By: #### U JV, [place] #### [facility] [address] [place] [address] Clerical Office: Reggie Chavez MD Creatinine [Mass/Vol] 0.53 mg/dL Low 0.70-1.20 [facility] Comment on above: Performed By: #### U JV, [place] #### [address] [address] Clerical Office: Reggie Chavez MD GFR/1.73 sq M.predicted among non-blacks MDRD (S/P/Bld) [Vol rate/Area] mL/min/{1.73_m2} Normal >60 [facility] [place] Comment on above: Result Comment: These results are not intended for use in patients <18 years of age. eGFR results are calculated without a race factor using the 2020 CKD-EPI equation. Careful clinical correlation is recommended, particularly when comparing to results calculated using previous equations. The CKD-EPI equation is less accurate in patients with extremes of muscle mass, extra-renal metabolism of creatine, excessive creatine ingestion, or following therapy that affects renal tubular secretion. Performed By: #### U JV, [place] #### [facility] [address] [place] [address] Clerical Office: Reggie Chavez MD Glucose [Mass/Vol] 203 mg/dL High 70-99 [facility] [place] Comment on above: Performed By: #### U JV, [place] #### [facility] [address] [place] [address] Clerical Office: Reggie Chavez MD Potassium [Moles/Vol] 4.4 mmol/L Normal 3.7-5.3 [facility] Comment on above: Performed By: #### U JV, [place] #### [facility] [address] [place] [address] Clerical Office: Reggie Chavez MD Sodium [Moles/Vol] 141 mmol/L Normal 135-144 [facility] [place] Comment on above: Performed By: #### U JV, [place] #### [facility] [address] [place] [address] Clerical Office: Reggie Chavez MD Urea nitrogen [Mass/Vol] 24 mg/dL High 8-23 [facility] Comment on above: Performed By: #### U JV, [place] #### [facility] [address] [place] [address] Clerical Office: Reggie Chavez MD Brain Natri. Peptideon 04-05 Natriuretic peptide B (Bld) [Mass/Vol] 143 pg/mL Normal <300 [facility] [place] Comment on above: Result Comment: An age-independent cutoff point of 300 pg/ml has a 98% negative predictive value excluding acute heart failure. Performed By: #### U JV, [place] #### [facility] [address] [place] [address] Clerical Office: Reggie Chavez MD CBC with Diffon 04-05-2023 Abs. Basophil 0.03 k/uL Normal 0.00-0.20 [facility] Comment on above: Performed By: #### U JV, [place] #### [facility] [address] [place] [address] Clerical Office: Reggie Chavez MD Abs.Imm.Granulocyte 0.06 k/uL Normal 0.00-0.30 [facility] Comment on above: Performed By: #### U JV, [place] #### [place] [address] Clerical Office: Reggie Chavez MD Abs.Neutrophil (Seg) 6.08 k/uL Normal 1.50-8.10 [facility] Comment on above: Performed By: #### U JV, [place] #### [place] [address] Clerical Office: Reggie Chavez MD Basophils/100 WBC (Bld) 0 % Normal 0-2 [facility] Comment on above: Performed By: #### U JV, [place] #### [place] [address] Clerical Office: Reggie Chavez MD Eosinophils (Bld) [#/Vol] 0.12 10*3/uL Normal 0.00-0.44 [facility] [place] Comment on above: Performed By: #### U JV, [place] #### [place] [address] Clerical Office: Reggie Chavez MD Eosinophils/100 WBC (Bld) 1 % Normal 1-4 [facility] [place] Comment on above: Performed By: #### U JV, [place] #### [place] [address] Clerical Office: Reggie Chavez MD Erythrocyte distribution width (RBC) [Ratio] 13.2 % Normal 11.8-14.4 [facility] [place] Comment on above: Performed By: #### U JV, [place] #### [place] [address] Clerical Office: Reggie Chavez MD Hematocrit (Bld) [Volume fraction] 48.0 % Normal 40.7-50.3 [facility] [place] Comment on above: Performed By: #### U JV, [place] #### [address] [address] Clerical Office: Reggie Chavez MD Hemoglobin (Bld) [Mass/Vol] 15.4 g/dL Normal 13.0-17.0 [facility] Comment on above: Performed By: #### U JV, [place] #### [address] [address] Clerical Office: Reggie Chavez MD Immature granulocytes/100 WBC (Bld) 1 % High 0 [facility] [place] Comment on above: Performed By: #### U JV, [place] #### [address] [address] Clerical Office: Reggie Chavez MD Lymphocytes (Bld) [#/Vol] 1.53 10*3/uL Normal 1.10-3.70 [facility] [place] Comment on above: Performed By: #### U JV, [place] #### [address] [address] Clerical Office: Reggie Chavez MD Lymphocytes/100 WBC (Bld) 18 % Low 24-43 [facility] [place] Comment on above: Performed By: #### U JV, [place] #### [address] [address] Clerical Office: Reggie Chavez MD MCH (RBC) [Entitic mass] 33.2 pg Normal 25.2-33.5 [facility] [place] Comment on above: Performed By: #### U JV, [place] #### [address] [address] Clerical Office: Reggie Chavez MD MCHC (RBC) [Mass/Vol] 32.1 g/dL Normal 28.4-34.8 [facility] Comment on above: Performed By: #### U JV, [place] #### [address] [place] [address] Clerical Office: Reggie Chavez MD MCV (RBC) [Entitic vol] 103.4 fL High 82.6-102.9 [facility] [place] Comment on above: Performed By: #### U JV, [place] #### [address] [address] Clerical Office: Reggie Chavez MD Monocytes (Bld) [#/Vol] 0.65 10*3/uL Normal 0.10-1.20 [facility] Comment on above: Performed By: #### U JV, [place] #### [address] [address] Clerical Office: Reggie Chavez MD Monocytes/100 WBC (Bld) 8 % Normal 3-12 [facility] [place] Comment on above: Performed By: #### U JV, [place] #### [address] [address] Clerical Office: Reggie Chavez MD Neutrophil (Seg) 72 % High 36-65 [facility] Comment on above: Performed By: #### U JV, [place] #### [address] [address] Clerical Office: Reggie Chavez MD NRBC Automated 0.0 per 100 WBC Normal 0.0 [facility] [place] Comment on above: Performed By: #### U JV, [place] #### [address] [address] Clerical Office: Reggie Chavez MD Platelet mean volume (Bld) [Entitic vol] 10.3 fL Normal 8.1-13.5 [facility] [place] Comment on above: Performed By: #### U JV, [place] #### [address] [address] Clerical Office: Reggie Chavez MD Platelets (Bld) [#/Vol] 219 10*3/uL Normal 138-453 [facility] [place] Comment on above: Performed By: #### U JV, U[place] #### [facility] [address] [place] [address] Clerical Office: Reggie Chavez MD RBC (Bld) [#/Vol] 4.64 10*6/uL Normal 4.21-5.77 [facility] Comment on above: Performed By: #### U JV, U[place] #### [facility] [address] [place] [address] Clerical Office: Reggie Chavez MD RBC morphology finding Nom (Bld) MACROCYTOSIS PRESENT Normal [facility] Comment on above: Performed By: #### U JV, [place] #### [facility] [facility] [address] [place] [address] Clerical Office: Reggie Chavez MD WBC (Bld) [#/Vol] 8.5 10*3/uL Normal 3.5-11.3 [facility] Comment on above: Performed By: #### U JV, [place] #### [address] [address] Clerical Office: Reggie Chavez MD Heparin Anti-Xaon 04-05-2023 Heparin Anti-Xa <0.10 Normal [facility] Comment on above: Performed By: #### B C #### [facility] [address] [place] [address] Clerical Office: Reggie Chavez MD Magnesiumon 04-05-2023 Magnesium [Mass/Vol] 1.1 mg/dL Low 1.6-2.6 [facility] Comment on above: Performed By: #### B C #### [facility] [address] [place] [address] Clerical Office: Reggie Chavez MD PTon 04-05-2023 INR Coag (PPP) [Relative time] 1.0 {INR} Normal [facility] Comment on above: Result Comment: Therapeutic Range: Moderate Anticoagulant Intensity: INR = 2.0-3.0 High Anticoagulant Intensity: INR = 2.5-3.5 Performed By: #### B C #### [address] [address] Clerical Office: Reggie Chavez MD PT Coag (PPP) [Time] 12.9 s Normal 11.7-14.9 [facility] Comment on above: Performed By: #### B C #### [facility] [address] [place] [address] Clerical Office: Reggie Chavez MD Resp Viral Panelon 3 Source: .NASOPHARYNGEAL SWAB Normal [facility] Comment on above: Performed By: #### U JV, U[place] #### [facility] [address] [place] [address] Clerical Office: eRggie Chavez MD Troponinon 04-05-2023 Troponin, High Sens 110 ng/L Critically high 0-22 [facility] [place] Comment on above: Result Comment: High Sensitivity Troponin values cannot be compared with other Troponin methodologies. Performed By: #### V BG #### [address] [address] Clerical Office: Reggie Chavez MD Troponin, High Sens 122 ng/L Critically high 0-22 [facility] Comment on above: Result Comment: High Sensitivity Troponin values cannot be compared with other Troponin methodologies. Performed By: #### B C #### [address] [address] Clerical Office: Reggie Chavez MD XR CHEST PORTABLEon 04-05-20 XR CHEST PORTABLE EXAMINATION: ONE XRAY VIEW OF THE CHEST 04/05/2023 7:20 pm COMPARISON: None. HISTORY: Acute cough and shortness of breath. FINDINGS: Normal cardiomediastinal silhouette. Mild bibasilar atelectasis. No significant pleural effusion. No pneumothorax. IMPRESSION: Mild bibasilar atelectasis. Interpreted by: Glenna Bethea MD Signed by: Glenna Bethea MD 04/05/23 Final result Normal [facility] Orders Onlyon 03-20-2023 Orders Only [id number] Evgeny Delgado 1955 M Date Provider Department Center 03/20/2023 Angel[facility]ENTONLAI [facility] Family History Problem Relation Age of Onset Other Father Family Status - Relation Status Age at Father Normal [facility] CBC AUTO DIFFon 02-27-2023 BASO # 0.0 103/ul Normal 0.0-0.1 [facility] Comment on above: Performed By: #### P OCGLUC #### [facility] [address] [address] [address] Raymond Walsh Basophils/100 WBC (Bld) 0.4 % Normal 0.2-2.0 [facility] Comment on above: Performed By: #### P OCGLUC #### [facility] [address] [address] [address] Raymond Walsh EO # 0.2 103/ul Normal 0.0-0.7 [facility] Comment on above: Performed By: #### P OCGLUC #### [facility] [address] [address] [address] Raymond Walsh Eosinophils/100 WBC (Bld) 1.7 % Normal 0.9-7.0 [facility] Comment on above: Performed By: #### P OCGLUC #### [facility] [address] [address] [address] Raymond Walsh Erythrocyte distribution width (RBC) [Ratio] 14.6 % Normal 11.0-15.0 [facility] Comment on above: Performed By: #### P OCGLUC #### [facility] [address] [address] [address] Raymond Walsh Hematocrit (Bld) [Volume fraction] 49.5 % Normal 42.0-54.0 [facility] Comment on above: Performed By: #### P OCGLUC #### [facility] [address] [address] [address] Raymond Walsh Hemoglobin (Bld) [Mass/Vol] 15.9 g/dL Normal 14.0-18.0 [facility] Comment on above: Performed By: #### P OCGLUC #### [facility] [address] [address] [address] Raymond Walsh IG # 0.06 10e3/ul Critically high 0.00-0.03 [facility] Comment on above: Performed By: #### P OCGLUC #### [facility] [address] [address] [address] Raymond Walsh IG % 0.6 % Critically high 0.0-0.5 [facility] Comment on above: Performed By: #### P OCGLUC #### [facility] [address] [address] [address] Raymond Walsh LYMPH # 1.8 103/ul Normal 1.2-3.8 [facility] Comment on above: Performed By: #### P OCGLUC #### [facility] [address] [address] [address] Raymond Walsh Lymphocytes/100 WBC (Bld) 18.8 % Critically low 20.5-60.0 [facility] Comment on above: Performed By: #### P OCGLUC #### [facility] [address] [place] [address] Dr. Raymond Walsh MANUAL DIFF REQ NO Normal [facility] Comment on above: Performed By: #### P OCGLUC #### [facility] [address] [address] [address] Raymond Walsh MCH (RBC) [Entitic mass] 32.3 pg Normal 25.9-34.0 [facility] Comment on above: Performed By: #### P OCGLUC #### [facility] [address] [address] [address] Raymond Walsh MCHC (RBC) [Mass/Vol] 32.1 g/dL Normal 29.9-35.2 [facility] Comment on above: Performed By: #### P OCGLUC #### [facility] [address] [address] [address] Raymond Walsh MCV (RBC) [Entitic vol] 100.6 fL Critically high 80.0-94.0 [facility] Comment on above: Performed By: #### P OCGLUC #### [facility] [address] [place] [address] Dr. Raymond Walsh MONO # 0.5 103/ul Normal 0.3-0.8 [facility] Comment on above: Performed By: #### P OCGLUC #### [facility] [address] [place] [address] Dr. Raymond Walsh Monocytes/100 WBC (Bld) 5.5 % Normal 1.7-12.0 [facility] Comment on above: Performed By: #### P OCGLUC #### [facility] [address] [place] [address] Dr. Raymond Walsh NEUT # 7.0 103/ul Critically high 1.4-6.5 [facility] Comment on above: Performed By: #### P OCGLUC #### [facility] [address] [place] [address] Dr. Raymond Walsh Neutrophils/100 WBC (Bld) 73.0 % Normal 43.0-75.0 [facility] Comment on above: Performed By: #### P OCGLUC #### [facility] [address] [place] [address] Dr. Raymond Walsh Platelet mean volume (Bld) [Entitic vol] 10.0 fL Normal 9.5-13.5 [facility] Comment on above: Performed By: #### P OCGLUC #### [facility] [address] [place] [address] Dr. Raymond Walsh PLT 201 103/ul Normal 150-450 [facility] Comment on above: Performed By: #### P OCGLUC #### [facility] [address] [place] [address] Dr. Raymond Walsh RBC 4.92 106/ul Normal 4.70-6.10 [facility] Comment on above: Performed By: #### P OCGLUC #### [facility] [address] [address] [address] Raymond Walsh WBC 9.6 103/ul Normal 4.0-11.0 [facility] Comment on above: Performed By: #### P OCGLUC #### [facility] [address] [address] [address] Raymond Walsh Office Visiton 02-27-2023 Follow-up visit [id number] Evgeny Delgado 1955 M Date Provider Department Center 02/27/2023 CHRISTOPHER GOLDMAN [facility] Family History Problem Relation Age of Onset Other Father Family Status - Relation Status Age at Father Level of Service:96558 AR OFFICE/OUTPATIENT ESTABLISHED HIGH MDM 40-54 MIN Reason for Visit and Comments: Coronary Artery Disease [187] Congestive Heart Failure [127] Valve Disorder [3372] Normal [facility] PROF CHEM 8 (BAS METB)on Anion gap [Moles/Vol] 11.0 mmol/L Normal [facility] Comment on above: Performed By: #### C BC #### [facility] [address] [place] [address] Dr. Raymond Walsh Calcium [Mass/Vol] 9.6 mg/dL Normal 8.5-10.1 [facility] Comment on above: Performed By: #### C BC #### [facility] [address] [address] [address] Raymond Walsh Chloride [Moles/Vol] 100 mmol/L Normal 98-107 [facility] Comment on above: Performed By: #### C BC #### [facility] [address] [address] [address] Raymond Walsh CO2 [Moles/Vol] 36.4 mmol/L Critically high 21.0-32.0 [facility] Comment on above: Performed By: #### C BC #### [facility] [address] [address] [address] Raymond Walsh Creatinine [Mass/Vol] 0.66 mg/dL Critically low 0.70-1.30 [facility] Comment on above: Performed By: #### C BC #### [facility] [address] [address] [address] Raymond Walsh EGFR-AF SAMOAN >60 Normal >=60 [facility] Comment on above: Performed By: #### C BC #### [facility] [address] [address] [address] Raymond Walsh EGFR-NON AF SAMOAN >60 Normal >=60 [facility] Comment on above: Performed By: #### C BC #### [facility] [address] [address] [address] Raymond Walsh Glucose [Mass/Vol] 160 mg/dL Critically high 74-106 [facility] Comment on above: Performed By: #### C BC #### [facility] [address] [place] [address] Dr. Raymond Walsh Potassium [Moles/Vol] 4.4 mmol/L Normal 3.5-5.1 [facility] Comment on above: Performed By: #### C BC #### [facility] [address] [address] [address] Raymond Walsh Sodium [Moles/Vol] 143 mmol/L Normal 136-145 [facility] Comment on above: Performed By: #### C BC #### [facility] [address] [place] [address] Dr. Raymond Walsh Urea nitrogen [Mass/Vol] 23.0 mg/dL Critically high 7.0-18.0 [facility] Comment on above: Performed By: #### C BC #### [facility] [address] [place] [address] Dr. Raymond Walsh Urea nitrogen/Creatinine [Mass ratio] 34.8 mg/mg Normal [facility] Comment on above: Performed By: #### C BC #### [facility] [address] [place] [address] Dr. Raymond Walsh GLYCOHEMOGLOBIN A1Con 2022 ADA RECOMMENDATION SEE BELOW Normal [facility] Comment on above: Result Comment: ADA RECOMMENDED LIMIT 4.0 - 6.0 ADA THERAPEUTIC TARGET < 7.0 ACTION SUGGESTED > 7.0 Performed By: #### C MP, BNP #### [facility] [address] [place], [place] [address] Dr. Raymond Walsh Glucose [Mass/Vol] 174 mg/dL Normal [facility] Comment on above: Performed By: #### C MP, BNP #### [facility] [address] [place], [place] [address] Dr. Raymond Walsh HbA1c (Bld) [Mass fraction] 7.7 % Critically high 4.5-6.2 [facility] Comment on above: Performed By: #### C MP, BNP #### [facility] [address] [place], [place] [address] Dr. Raymond Walsh ECHOCARDIO M/2D COMPLETEon 0 01-18-2023 ECHOCARDIO M/2D COMPLETE Patient: EVGENY DELGADO Exam Date: 01/18/2023 : 1955 Gender:M Ordering : STEPHEN KENNEDY [facility] Admission #: [id number] Family : DR MARCO BOSCH M.D. Order #: [id number] CLICK HERE TO VIEW EXAM ECHOCARDIOGRAM REPORT PROCEDURE: CARDIO PULMONARY ECHOCARDIO M/2D COMP INDICATIONS: Chronic systolic heart failure COMPARISON: None. DESCRIPTION: COMPLETE ECHOCARDIOGRAM Real-time transthoracic echocardiography with 2D, M-mode, spectral and color flow Doppler performed. QUALITY: Technical quality was adequate. 69 203# 130/78 HR 82 LEFT VENTRICLE: Normal chamber size. Mild concentric left ventricular hypertrophy. Global left ventricular systolic function is normal. No regional wall motion abnormality. LV EF: Visual estimation of left ventricular ejection fraction is 60%. DIASTOLIC: Diastolic function is indeterminate. ATRIAL SEPTUM: LEFT ATRIUM: Normal chamber size. RIGHT ATRIUM: Normal chamber size. RIGHT VENTRICLE: Normal chamber size. Normal right ventricular systolic function. TRICUSPID VALVE: Normal mobility and thickness. No stenosis with trivial regurgitation. No evidence of pulmonary hypertension. RVSP 28 mmHg MITRAL VALVE: Normal mobility and thickness. No evidence of mitral valve stenosis. No mitral regurgitation. AORTIC VALVE: Unable to rule out bicuspid aortic valve. Severely calcified aortic valve. Severely diminished mobility. Doppler velocity suggest severe aortic valve stenosis. Peak velocity 4.5 m/s, mean gradient 44.5 mmHg. DVI 0.2 LATOYA 0.9 cm?. No aortic regurgitation. AORTIC ROOT: Normal diameter and appearance. PULMONIC VALVE: Normal thickness and mobility. No stenosis. Trivial regurgitation. PERICARDIUM: No evidence of pericardial effusion. IVC: Collapses with inspirations. IVC normal in size. PLEURA: CONCLUSION: 1. Mild concentric left ventricular hypertrophy. Normal left ventricular systolic function. LVEF is 60%. 2. Normal right ventricular size and systolic function. 3. Unable to rule out bicuspid aortic valve. 4. Severe aortic valve stenosis. 5. Normal right-sided pressures. 6. A transesophageal echocardiogram can provide better assessment of the aortic valve. Adult Echocardiography Procedure Report Left Ventricle Left Atrium Mitral Valve Right Ventricle Aorta Aortic Valve AoV Area (Peak Escobar): 0.89 cm2, 1.01 cm2, 0.89 cm2, 1.01 cm2, 0.89 cm2, 0.89 cm2, 0.89 cm2, 0.89 cm2 AoV Area (VTI): 0.64 cm2, 0.78 cm2 Peak Velocity(Antegrade Flow): 4.51 m/s, 4.51 m/s Peak Gradient(Antegrade Flow): 81.36 mm[Hg], 81.36 mm[Hg] Mean Velocity(Antegrade Flow): 3.10 m/s Mean Gradient(Antegrade Flow): 44.48 mm[Hg] Velocity Time Integral: 101.96 cm Tricuspid Valve Peak Velocity (Regurgitant Flow): 2.50 m/s Peak Velocity: 0.42 m/s Pulmonic Valve Peak Velocity: 0.85 m/s, 0.85 m/s Right Atrium Dictated by: Christopher Carreon M.D. on 01/19/2023 at 18:47 Approved by: Christopher Carreon M.D. on 01/19/2023 at 18:52 Normal [facility] Office Visiton 12-21-2022 Follow-up visit [id number] Evgeny Delgado 1955 M [facility] Provider Department Center 12/21/2022 STEPHEN EWING [facility] Family History Problem Relation Age of Onset Other Father Family Status - Relation Status Age at Father Level of Service:25321 AR OFFICE/OUTPATIENT ESTABLISHED MOD MDM 30-39 MIN Reason for Visit and Comments: Coronary Artery Disease [187] Congestive Heart Failure [127] Hypertension [082770] Valve Disorder [3372] Normal [facility] Orders Onlyon 12-21-2022 Orders Only [id number] Evgeny Delgado 1955 M Date Provider Department Center 12/21/2022 895-NITA DAVIS REBECCA Barreto Family History Problem Relation Age of Onset Other Father Family Status - Relation Status Age at Father Normal [facility] Follow-Upon 09-01-2022 Follow-Up [id number] Evgeny Delgado 1955 M Date Provider Department Center 09/01/2022 Karlie-STEPHEN KENNEDY [facility] Family History Problem Relation Age of Onset Other Father Family Status - Relation Status Age at Father Level of Service:66568 AR OFFICE/OUTPATIENT ESTABLISHED MOD MDM 30-39 MIN Reason for Visit and Comments: Congestive Heart Failure [127] Normal [facility] DSon 08-08-2022 DS Admission Admitted 08/08/2022 for EP study for Paroxysmal ventricular tachycardia Discharge Diagnosis Paroxysmal ventricular tachycardia Discharge Disposition Stable Discharge Medications Your medication list CONTINUE taking these medications Instructions Last Dose Given Next Dose Due allopurinol 300 mg tablet Commonly known as: Zyloprim aspirin 81 mg EC tablet atorvastatin 40 mg tablet Commonly known as: Lipitor Entresto 24-26 mg tablet Generic drug: sacubitriL-valsartan glyBURIDE micronized 6 mg tablet Commonly known as: Glynase metFORMIN 500 mg tablet Commonly known as: Glucophage metoprolol succinate XL 25 mg 24 hr tablet Commonly known as: Toprol-XL omeprazole [address] capsule Commonly known as: PriLOSEC Activity Bed rest x 2 hrs from sheath removal. , No strenous activity x 24hrs Diet Patient currently has no discharge diet orders Allergies Cephalosporins, Januvia [sitagliptin], Levofloxacin, Lorabid [loracarbef], Oxycodone, Penicillins, Tamiflu [oseltamivir], and Vicodin [hydrocodone-acetamino phen] Hospital Course COMPREHENSIVE EP STUDY PROCEDURE NOTE DATE OF PROCEDURE: 08/08/2022 PERFORMING PHYSICIAN: Dr. Mohan Cam SUB PRIOR: None INDICATIONS FOR PROCEDURE: 1. History of NSVT. 2. Cardiomyopathy CONSENT: Patient LOCATION: EP Lab PROCEDURAL SEDATION: Versed and Fentanyl. Monitoring: Cardiac telemetry, Blood pressure, continuous pulse oxymetry. Moderate sedation was administered by the sedation nurse under my supervision. Intraprocedural face to face sedation time: 52min. FLUOROSCOPY: 6min 32sec/ 61mGray PREPARATION: Preoperative antibiotics was administered. PROCEDURES PERFORMED: 1. Ultrasound guided vascular access for 5Fx1 venous sheaths as documented below in procedure note and image stored in PACS. 2. Comprehensive EP study which includes right atrial recording and pacing, His bundle recording and right ventricular recording and pacing. INDICATION: 67 year old with past medical history of Facioscapulohumeral muscular dystrophy, nonischemic cardiomyopathy on a recent echo, bicuspid aortic valve, diabetes mellitus type 2, hypertension was recently admitted to [facility] for heart failure symptoms. He was treated with diuretics and subsequently cardiac cath was done to evaluate his low EF of 45% which did not reveal any singificant CAD. His pulmonary capillary wedge pressures was 20 mmHg and started on diuretics and subsequently discharged. He had an event monitor that was placed which revealed nonsustained ventricular tachycardia and so was brought for EP study for risk stratification. PROCEDURE NOTE: The risks, benefits and alternatives of the procedure were discussed with the patient and family who agreed to proceed. Please refer to my office consult note for details of the discussion and of indications. Patient was brought to the EP lab in the post absorptive state. A procedural pause was performed verifying the patient, the procedure. The right groin was prepped and draped in the usual sterile fashion. Preoperative antibiotics was administered. Ultrasound was used to image the right femoral veins and it was noted to be patent and this was used for vessel entry as noted below. After infiltration with 1% lidocaine, 2 venous sheath was placed in the right. Details of cathetersplaced as follows. RFV: 5Fx1 RV and then to His and then RV EP Cath: Trip Shelton/Tez Once catheter was in position, baseline intervals were noted as follows AH: 123ms, HV 57ms. 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 Baseline right ventricular programmed stimulation showed evidence of VA conduction. I performed VEST using 600ms and 400ms drive train. Singles, doubles and triple extra stimuli was introduced with no evidence of any ventricular tachycardia from RV apex as well as RVOT. Patient was noted to have sinus tachycardia and so atrial pacing was performed at 480ms drive train. No tachycardia could be induced. The patient appeared to tolerate the procedure well and was returned to his room in stable condition. No complications were immediately observed. AHms 123 HVms 57 VERPms 600/220, VA condunction+ AV Wenkebach ms 380 AH jump ms NA AVNERP ms 480/290 AERP ms 480/200 EBL: 15cc SPECIMEN REMOVED: None IMPRESSION: 1. EP study with ano no inducible VT 2. No inducible tachycardia RECOMMENDATIONS: 1 Follow up with EP as needed. Mohan Cam MD Cardiac Electrophysiology Pertinent Physical Exam At Time of Discharge Physical Exam Lab Results Labs Reviewed - No data to display Issues Requiring Follow-Up Groin precautions Outpatient Follow-Up Future Appointments Date Time Provider Department Center 08/08/2022 6:05 PM [facility] CV EKG/[facility]OM [facility] 09/01/2022 1:40 PM Stephen Kennedy NP CARD [facility] Test Results Pending At Discharge Normal [facility] CBC AUTO DIFFon 08-05-2022 BASO # 0.0 103/ul Normal 0.0-0.1 [facility] Comment on above: Performed By: #### C BC #### [facility] [address] [place] [address] Dr. Raymond Walsh Basophils/100 WBC (Bld) 0.4 % Normal 0.2-2.0 [facility] Comment on above: Performed By: #### C BC #### [facility] [address] [place] [address] Dr. Raymond Walsh EO # 0.2 103/ul Normal 0.0-0.7 [facility] Comment on above: Performed By: #### C BC #### [facility] [address] [place] [address] Dr. Raymond Walsh Eosinophils/100 WBC (Bld) 1.6 % Normal 0.9-7.0 [facility] Comment on above: Performed By: #### C BC #### [facility] [address] [place] [address] Dr. Raymond Walsh Erythrocyte distribution width (RBC) [Ratio] 18.1 % Critically high 11.0-15.0 [facility] Comment on above: Performed By: #### C BC #### [facility] [address] [place] [address] Dr. Raymond Walsh Hematocrit (Bld) [Volume fraction] 43.3 % Normal 42.0-54.0 [facility] Comment on above: Performed By: #### C BC #### [facility] [address] [place] [address] Dr. Raymond Walsh Hemoglobin (Bld) [Mass/Vol] 13.4 g/dL Critically low 14.0-18.0 [facility] Comment on above: Performed By: #### C BC #### [facility] [address] [place] [address] Dr. Raymond Walsh IG # 0.06 10e3/ul Critically high 0.00-0.03 [facility] Comment on above: Performed By: #### C BC #### [facility] [address] [place] [address] Dr. Raymond Walsh IG % 0.7 % Critically high 0.0-0.5 [facility] Comment on above: Performed By: #### C BC #### [facility] [address] [place] [address] Dr. Raymond Walsh LYMPH # 1.7 103/ul Normal 1.2-3.8 [facility] Comment on above: Performed By: #### C BC #### [facility] [address] [place] [address] Dr. Raymond Walsh Lymphocytes/100 WBC (Bld) 18.6 % Critically low 20.5-60.0 [facility] Comment on above: Performed By: #### C BC #### [facility] [address] [place] [address] Dr. Raymond Walsh MANUAL DIFF REQ NO Normal [facility] Comment on above: Performed By: #### C BC #### [facility] [address] [place] [address] Dr. Raymond Walsh MCH (RBC) [Entitic mass] 30.9 pg Normal 25.9-34.0 [facility] Comment on above: Performed By: #### C BC #### [facility] [address] [place] [address] Dr. Raymond Walsh MCHC (RBC) [Mass/Vol] 30.9 g/dL Normal 29.9-35.2 [facility] Comment on above: Performed By: #### C BC #### [facility] [address] [place] [address] Dr. Raymond Walsh MCV (RBC) [Entitic vol] 99.8 fL Critically high 80.0-94.0 [facility] Comment on above: Performed By: #### C BC #### [facility] [address] [place] [address] Dr. Raymond Walsh MONO # 0.6 103/ul Normal 0.3-0.8 [facility] Comment on above: Performed By: #### C BC #### [facility] [address] [place] [address] Dr. Raymond Walsh Monocytes/100 WBC (Bld) 6.1 % Normal 1.7-12.0 [facility] Comment on above: Performed By: #### C BC #### [facility] [address] [place] [address] Dr. Raymond Walsh NEUT # 6.6 103/ul Critically high 1.4-6.5 [facility] Comment on above: Performed By: #### C BC #### [facility] [address] [place] [address] Dr. Raymond Walsh Neutrophils/100 WBC (Bld) 72.6 % Normal 43.0-75.0 [facility] Comment on above: Performed By: #### C BC #### [facility] [address] [place] [address] Dr. Raymond Walsh Platelet mean volume (Bld) [Entitic vol] 10.2 fL Normal 9.5-13.5 [facility] Comment on above: Performed By: #### C BC #### [facility] [address] [place] [address] Dr. Raymond Walsh PLT 232 103/ul Normal 150-450 [facility] Comment on above: Performed By: #### C BC #### [facility] [address] [place] [address] Dr. Raymond Walsh RBC 4.34 106/ul Critically low 4.70-6.[address] [facility] Comment on above: Performed By: #### C BC #### [facility] [address] [place], [place] [address] Dr. Raymond Walsh WBC 9.1 103/ul Normal 4.0-11.0 [facility] Comment on above: Performed By: #### C BC #### [facility] [address] [place], [place] [address] Dr. Raymond Walsh Covid-19 PCR ([facility])on 07-17 SARS-CoV-2 (COVID-19) RNA ZACHARIAH+probe Ql (Unsp spec) Not detected Normal NOT DETECTED [facility] Comment on above: Result Comment: This test is not yet approved or cleared by the [place] FDA. When there are no FDA-approved or cleared tests available, and other criteria are met, FDA can make tests available under an emergency access mechanism called an Emergency Use Authorization (EUA). The EUA for this test is supported by the [place] of Health and Human Service's (HHS's) declaration that circumstances exist to justify the emergency use of in vitro diagnostics for the detection and/or diagnosis of the virus that causes COVID-19. This EUA will remain in effect (meaning this test can be used) for the duration of the COVID-19 declaration justifying emergency of IVDs, unless it is terminated or revoked by FDA (after which the test may no longer be used). When diagnostic testing is negative, the possibility of a false negative should be considered in the context of a patient's recent exposures and the presence of clinical signs and symptoms consistent with SARS-CoV-2. Performed By: #### C VDTBH #### [facility] [address] [place] [address] [address] [address] Raymond Walsh PROF CHEM 8 (BAS METB)on Anion gap [Moles/Vol] 9.7 mmol/L Normal [facility] Comment on above: Performed By: #### C VDTBH #### [facility] [address] [place], [place] [address] Dr. Raymond Walsh Calcium [Mass/Vol] 9.1 mg/dL Normal 8.5-10.1 [facility] Comment on above: Performed By: #### C VDTBH #### [facility] [address] [place] [address] [address] Raymond Walsh Chloride [Moles/Vol] 101 mmol/L Normal 98-107 [facility] Comment on above: Performed By: #### C VDTBH #### [facility] [address] [address] [address] Raymond Walsh CO2 [Moles/Vol] 34.0 mmol/L Critically high 21.0-32.0 [facility] Comment on above: Performed By: #### C VDTBH #### [facility] [address] [address] [address] Raymond Walsh Creatinine [Mass/Vol] 0.56 mg/dL Critically low 0.70-1.30 [facility] Comment on above: Performed By: #### C VDTBH #### [facility] [address] [place] [address] Dr. Raymond Walsh EGFR-AF SAMOAN >60 Normal >=60 [facility] Comment on above: Performed By: #### C VDTBH #### [facility] [address] [place] [address] Dr. Raymond Walsh EGFR-NON AF SAMOAN >60 Normal >=60 [facility] Comment on above: Performed By: #### C VDTBH #### [facility] [address] [place] [address] Dr. Raymond Walsh Glucose [Mass/Vol] 165 mg/dL Critically high 74-106 [facility] Comment on above: Performed By: #### C VDTBH #### [facility] [address] [place] [address] Dr. Raymond Waslh Potassium [Moles/Vol] 4.7 mmol/L Normal 3.5-5.1 [facility] Comment on above: Performed By: #### C VDTBH #### [facility] [address] [address] [address] Raymond Walsh Sodium [Moles/Vol] 140 mmol/L Normal 136-145 [facility] Comment on above: Performed By: #### C VDTBH #### [facility] [address] [address] [address] Raymond Walsh Urea nitrogen [Mass/Vol] 15.0 mg/dL Normal 7.0-18.0 [facility] Comment on above: Performed By: #### C VDTBH #### [facility] [address] [address] [address] Raymond Walsh Urea nitrogen/Creatinine [Mass ratio] 26.8 mg/mg Normal [facility] Comment on above: Performed By: #### C VDTBH #### [facility] [address] [address] [address] Raymond Walsh PROTIMEon 08-05-2022 INR Coag (PPP) [Relative time] 1.02 {INR} Normal [facility] Comment on above: Performed By: #### P OCGLUC #### [facility] [address] [place] [address] Dr. Raymond Walsh INR GUIDELINES SEE BELOW Normal [facility] Comment on above: Result Comment: EDUARDO RED INR: 2.0 - 3.0 CONDITIONS NOT LISTED BELOW 2.5 - 3.5 FOR PROSTHETIC HEART VALVE REPLACEMENT 2.5 - 3.5 RECURRENT THROMBOSIS Performed By: #### P OCGLUC #### [facility] [address] [place] [address] Dr. Raymond Walsh PT Coag (PPP) [Time] 11.0 s Normal 9.0-11.6 [facility] Comment on above: Performed By: #### P OCGLUC #### [facility] [address] [address] [address] Raymond Walsh Orders Onlyon 08-04-2022 Orders Only [id number] Evgeny Delgado 1955 M Date Provider Department Center 08/04/2022 KVNG ROMAN [facility] C Family History Problem Relation Age of Onset Other Father Family Status - Relation Status Age at Father Normal [facility] Orders Onlyon 08-03-2022 Orders Only [id number] Evgeny Delgado 1955 M Date Provider Department Center 08/03/2022 BRADY MARTINEZ [facility] Family History Problem Relation Age of Onset Other Father Family Status - Relation Status Age at Father Normal [facility] Orders Onlyon 07-29-2022 Orders Only [id number] Evgeny Delgado 1955 M Date Provider Department Center 07/29/2022 EVELIN VALDEZ [facility] C Family History Problem Relation Age of Onset Other Father Family Status - Relation Status Age at Father Normal [facility] Office Visiton 07-05-2022 Follow-up visit [id number] Evgeny Delgado 1955 M Date Provider Department Center 07/05/2022 Dipti-MOHAN CAM [facility] Family History Problem Relation Age of Onset Other Father Family Status - Relation Status Age at Father Level of Service:18325 AR OFFICE/OUTPATIENT NEW HIGH MDM 60-74 MINUTES Normal [facility] BNPon 06-27-2022 Natriuretic peptide B (Bld) [Mass/Vol] 219.0 pg/mL Normal <=900.0 [facility] Comment on above: Performed By: #### C MP, BNP #### [facility] [address] [place] [address] Dr. Raymond Walsh CBC AUTO DIFFon 06-27-2022 BASO # 0.0 103/ul Normal 0.0-0.1 [facility] Comment on above: Performed By: #### S PUTGS #### [facility] [address] [place] [address] Dr. Raymond Walsh Basophils/100 WBC (Bld) 0.4 % Normal 0.2-2.0 [facility] Comment on above: Performed By: #### S PUTGS #### [facility] [address] [place] [address] Dr. Raymond Walsh EO # 0.1 103/ul Normal 0.0-0.7 [facility] Comment on above: Performed By: #### S PUTGS #### [facility] [address] [place] [address] Dr. Raymond Walsh Eosinophils/100 WBC (Bld) 1.1 % Normal 0.9-7.0 [facility] Comment on above: Performed By: #### S PUTGS #### [facility] [address] [place] [address] Dr. Raymond Walsh Erythrocyte distribution width (RBC) [Ratio] 15.3 % Critically high 11.0-15.0 [facility] Comment on above: Performed By: #### S PUTGS #### [facility] [address] [place] [address] Dr. Raymond Walsh Hematocrit (Bld) [Volume fraction] 44.4 % Normal 42.0-54.0 [facility] Comment on above: Performed By: #### S PUTGS #### [facility] [address] [place] [address] Dr. Raymond Walsh Hemoglobin (Bld) [Mass/Vol] 14.2 g/dL Normal 14.0-18.0 [facility] Comment on above: Performed By: #### S PUTGS #### [facility] [address] [place] [address] Dr. Raymond Walsh IG # 0.24 10e3/ul Critically high 0.00-0.03 [facility] Comment on above: Performed By: #### S PUTGS #### [facility] [address] [place] [address] Dr. Raymond Walsh IG % 2.5 % Critically high 0.0-0.5 [facility] Comment on above: Performed By: #### S PUTGS #### [facility] [address] [place] [address] Dr. Raymond Walsh LYMPH # 2.7 103/ul Normal 1.2-3.8 [facility] Comment on above: Performed By: #### S PUTGS #### [facility] [address] [place] [address] Dr. Raymond Walsh Lymphocytes/100 WBC (Bld) 27.4 % Normal 20.5-60.0 [facility] Comment on above: Performed By: #### S PUTGS #### [facility] [address] [place] [address] Dr. Raymond Walsh MANUAL DIFF REQ NO Normal [facility] Comment on above: Performed By: #### S PUTGS #### [facility] [address] [address] [address] Raymond Walsh MCH (RBC) [Entitic mass] 30.8 pg Normal 25.9-34.0 [facility] Comment on above: Performed By: #### S PUTGS #### [facility] [address] [address] [address] Raymond Walsh MCHC (RBC) [Mass/Vol] 32.0 g/dL Normal 29.9-35.2 [facility] Comment on above: Performed By: #### S PUTGS #### [facility] [address] [place] [address] Dr. Raymond Walsh MCV (RBC) [Entitic vol] 96.3 fL Critically high 80.0-94.0 [facility] Comment on above: Performed By: #### S PUTGS #### [facility] [address] [place] [address] Dr. Raymond Walsh MONO # 0.7 103/ul Normal 0.3-0.8 [facility] Comment on above: Performed By: #### S PUTGS #### [facility] [address] [place] [address] Dr. Raymond Walsh Monocytes/100 WBC (Bld) 6.9 % Normal 1.7-12.0 [facility] Comment on above: Performed By: #### S PUTGS #### [facility] [address] [place] [address] Dr. Raymond Walsh NEUT # 6.0 103/ul Normal 1.4-6.5 [facility] Comment on above: Performed By: #### S PUTGS #### [facility] [address] [place] [address] Dr. Raymond Walsh Neutrophils/100 WBC (Bld) 61.7 % Normal 43.0-75.0 [facility] Comment on above: Performed By: #### S PUTGS #### [facility] [address] [place] [address] Dr. Raymond Walsh Platelet mean volume (Bld) [Entitic vol] 9.8 fL Normal 9.5-13.5 [facility] Comment on above: Performed By: #### S PUTGS #### [facility] [address] [place], [place] [address] Dr. Raymond Walsh PLT 221 103/ul Normal 150-450 [facility] Comment on above: Performed By: #### S PUTGS #### [facility] [address] [place], [place] [address] Dr. Raymond Walsh RBC 4.61 106/ul Critically low 4.70-6.10 [facility] Comment on above: Performed By: #### S PUTGS #### [facility] [address] [place], [place] [address] Dr. Raymond Walsh WBC 9.7 103/ul Normal 4.0-11.0 [facility] Comment on above: Performed By: #### S PUTGS #### [facility] [address] [place], [place] [address] HEAD WO CONon 06-27-2022 CT HEAD WO CON EXAM: CT HEAD WO CON CLINICAL INDICATION: HEADACHE COMPARISON: CT head 05/23/2021 TECHNIQUE: Axial CT images of the brain were obtained without contrast. Coronal and sagittal reformats were obtained. Dose reduction techniques were achieved by using automated exposure control and/or adjustment of mA and/or kV according to patient size and/or use of iterative reconstruction technique. FINDINGS: No intracranial hemorrhage, extra-axial fluid collection, hydrocephalus, midline shift, or acute large vessel territory infarction. No other mass effect. Minimal periventricular hypoattenuation is likely on the basis of chronic microvascular angiopathic changes. Mild symmetric global volume loss without lobar predominance. Commensurate prominence of the ventricular system. Basal cisterns are patent. No calvarial fracture. Normal soft tissues. Paranasal sinuses and mastoid air cells are well-aerated. IMPRESSION: No acute intracranial process. No substantial change since 05/23/2021. Electronically authenticated by: JULIOCESAR EUBANKS Date: 2022-06-27 09:48 Normal [facility] POINT OF CARE GLUCOSEon 06-16 Glucose [Mass/Vol] 225 mg/dL Critically high 74-106 [facility] Comment on above: Performed By: #### C MP, BNP #### [facility] [address] [place] [address] Dr. Raymond Walsh Glucose [Mass/Vol] 84 mg/dL Normal 74-106 [facility] Comment on above: Performed By: #### P OCGLUC #### [facility] [address] [place] [address] Dr. Raymond Walsh PROF 14(COMP METB)on 022 Albumin [Mass/Vol] 3.2 g/dL Critically low 3.4-5.0 [facility] Comment on above: Performed By: #### C MP, BNP #### [facility] [address] [place] [address] Dr. Raymond Walsh Albumin/Globulin [Mass ratio] 1.0 {ratio} Normal [facility] Comment on above: Performed By: #### C MP, BNP #### [facility] [address] [place] [address] Dr. Raymond Walsh ALP [Catalytic activity/Vol] 105 U/L Normal 46-116 [facility] Comment on above: Performed By: #### C MP, BNP #### [facility] [address] [place] [address] Dr. Raymond Walsh ALT [Catalytic activity/Vol] 56 U/L Normal 16-63 [facility] Comment on above: Performed By: #### C MP, BNP #### [facility] [address] [place] [address] Dr. Raymond Walsh Anion gap [Moles/Vol] 8.4 mmol/L Normal [facility] Comment on above: Performed By: #### C MP, BNP #### [facility] [address] [place] [address] Dr. Raymond Walsh AST [Catalytic activity/Vol] 25 U/L Normal 15-37 [facility] Comment on above: Performed By: #### C MP, BNP #### [facility] [address] [place] [address] Dr. Raymond Walsh Bilirubin [Mass/Vol] 0.5 mg/dL Normal 0.2-1.0 [facility] Comment on above: Performed By: #### C MP, BNP #### [facility] [address] [address] [address] Raymond Walsh Calcium [Mass/Vol] 9.3 mg/dL Normal 8.5-10.1 [facility] Comment on above: Performed By: #### C MP, BNP #### [facility] [address] [address] [address] Raymond Walsh Chloride [Moles/Vol] 97 mmol/L Critically low 98-107 [facility] Comment on above: Performed By: #### C MP, BNP #### [facility] [address] [address] [address] Raymond Walsh CO2 [Moles/Vol] 33.1 mmol/L Critically high 21.0-32.0 [facility] Comment on above: Performed By: #### C MP, BNP #### [facility] [address] [place] [address] Dr. Raymond Walsh Creatinine [Mass/Vol] 0.80 mg/dL Normal 0.70-1.30 [facility] Comment on above: Performed By: #### C MP, BNP #### [facility] [address] [place] [address] Dr. Raymond Walsh EGFR-AF SAMOAN >60 Normal >=60 [facility] Comment on above: Performed By: #### C MP, BNP #### [facility] [address] [place] [address] Dr. Raymond Walsh EGFR-NON AF SAMOAN >60 Normal >=60 [facility] Comment on above: Performed By: #### C MP, BNP #### [facility] [address] [place] [address] Dr. Raymond Walsh Globulin (S) [Mass/Vol] 3.3 g/dL Normal [facility] Comment on above: Performed By: #### C MP, BNP #### [facility] [address] [place] [address] Dr. Raymond Walsh Glucose [Mass/Vol] 98 mg/dL Normal 74-106 [facility] Comment on above: Performed By: #### C MP, BNP #### [facility] [address] [place] [address] Dr. Raymond Walsh Potassium [Moles/Vol] 4.5 mmol/L Normal 3.5-5.1 [facility] Comment on above: Performed By: #### C MP, BNP #### [facility] [address] [place] [address] Dr. Raymond Walsh Protein [Mass/Vol] 6.5 g/dL Normal 6.4-8.2 [facility] Comment on above: Performed By: #### C MP, BNP #### [facility] [address] [place] [address] Dr. Raymond Walsh Sodium [Moles/Vol] 134 mmol/L Critically low 136-145 [facility] Comment on above: Performed By: #### C MP, BNP #### [facility] [address] [place] [address] Dr. Raymond Walsh Urea nitrogen [Mass/Vol] 42.0 mg/dL Critically high 7.0-18.0 [facility] Comment on above: Performed By: #### C MP, BNP #### [facility] [address] [place] [address] Dr. Raymond Walsh Urea nitrogen/Creatinine [Mass ratio] 52.5 mg/mg Normal [facility] Comment on above: Performed By: #### C MP, BNP #### [facility] [address] [place] [address] Dr. Raymond Walsh BNPon 06-26-2022 Natriuretic peptide B (Bld) [Mass/Vol] 550.0 pg/mL Normal <=900.0 [facility] Comment on above: Performed By: #### C MP, BNP #### [facility] [address] [place] [address] Dr. Raymond Walsh Natriuretic peptide B (Bld) [Mass/Vol] 508.0 pg/mL Normal <=900.0 [facility] Comment on above: Performed By: #### S PUTGS #### [facility] [address] [place] [address] Dr. Raymond Walsh CARDIAC FABIAN 3-6on 2 CK [Catalytic activity/Vol] 138 U/L Normal 39-308 [facility] Comment on above: Performed By: #### P OCGLUC #### [facility] [address] [place] [address] Dr. Raymond Walsh CK.MB [Mass/Vol] 7.50 ng/mL Critically high <=3.60 [facility] Comment on above: Performed By: #### P OCGLUC #### [facility] [address] [place] [address] Dr. Raymond Walsh HSTROP 12.6 pg/mL Normal 4.0-76.1 [facility] Comment on above: Result Comment: CUT- OFF POINTS HAVE BEEN ESTABLISHED BASED ON THE FOURTH UNIVERSAL DEFINITIONS OF MYOCARDIAL INFARCTION. THE UPPER REFERENCE LIMIT (URL) OF TROPONIN, DEFINED THE 99TH PERCENTILE OF cTnI DISTRIBUTION IN A REFERENCE POPULATION, HAS BEEN CONFIRMED THE DECISION THRESHOLD FOR CA DIAGNOSIS. Performed By: #### P OCGLUC #### [facility] [address] [place] [address] Dr. Raymond Walsh CK [Catalytic activity/Vol] 124 U/L Normal 39-308 [facility] Comment on above: Performed By: #### P OCGLUC #### [facility] [address] [place] [address] Dr. Raymond Walsh CK.MB [Mass/Vol] 7.35 ng/mL Critically high <=3.60 [facility] Comment on above: Performed By: #### P OCGLUC #### [facility] [address] [place] [address] Dr. Raymond Walsh HSTROP 11.8 pg/mL Normal 4.0-76.1 [facility] Comment on above: Result Comment: CUT- OFF POINTS HAVE BEEN ESTABLISHED BASED ON THE FOURTH UNIVERSAL DEFINITIONS OF MYOCARDIAL INFARCTION. THE UPPER REFERENCE LIMIT (URL) OF TROPONIN, DEFINED THE 99TH PERCENTILE OF cTnI DISTRIBUTION IN A REFERENCE POPULATION, HAS BEEN CONFIRMED THE DECISION THRESHOLD FOR CA DIAGNOSIS. Performed By: #### P OCGLUC #### [facility] [address] [place] [address] Dr. Raymond Walsh CBC AUTO DIFFon 06-26-2022 BASO # 0.1 103/ul Normal 0.0-0.1 [facility] Comment on above: Performed By: #### C MP, BNP #### [facility] [address] [place] [address] Dr. Raymond Walsh Basophils/100 WBC (Bld) 0.4 % Normal 0.2-2.0 [facility] Comment on above: Performed By: #### C MP, BNP #### [facility] [address] [place] [address] Dr. Raymond Walsh EO # 0.0 103/ul Normal 0.0-0.7 [facility] Comment on above: Performed By: #### C MP, BNP #### [facility] [address] [place] [address] Dr. Raymond Walsh Eosinophils/100 WBC (Bld) 0.1 % Critically low 0.9-7.0 [facility] Comment on above: Performed By: #### C MP, BNP #### [facility] [address] [place] [address] Dr. Raymond Walsh Erythrocyte distribution width (RBC) [Ratio] 15.2 % Critically high 11.0-15.0 [facility] Comment on above: Performed By: #### C MP, BNP #### [facility] [address] [place] [address] Dr. Raymond Walsh Hematocrit (Bld) [Volume fraction] 51.6 % Normal 42.0-54.0 [facility] Comment on above: Performed By: #### C MP, BNP #### [facility] [address] [place] [address] Dr. Raymond Walsh Hemoglobin (Bld) [Mass/Vol] 16.7 g/dL Normal 14.0-18.0 [facility] Comment on above: Performed By: #### C MP, BNP #### [facility] [address] [place] [address] Dr. Raymond Walsh IG # 0.41 10e3/ul Critically high 0.00-0.03 [facility] Comment on above: Performed By: #### C MP, BNP #### [facility] [address] [place] [address] Dr. Raymond Walsh IG % 2.9 % Critically high 0.0-0.[address] [facility] Comment on above: Performed By: #### C MP, BNP #### [facility] [address] [place] [address] Dr. Raymond Walsh LYMPH # 2.3 103/ul Normal 1.2-3.8 [facility] Comment on above: Performed By: #### C MP, BNP #### [facility] [address] [place] [address] Dr. Raymond Walsh Lymphocytes/100 WBC (Bld) 16.1 % Critically low 20.5-60.0 [facility] Comment on above: Performed By: #### C MP, BNP #### [facility] [address] [place] [address] Dr. Raymond Walsh MANUAL DIFF REQ NO Normal [facility] Comment on above: Performed By: #### C MP, BNP #### [facility] [address] [place] [address] Dr. Raymond Walsh MCH (RBC) [Entitic mass] 30.4 pg Normal 25.9-34.0 [facility] Comment on above: Performed By: #### C MP, BNP #### [facility] [address] [place] [address] Dr. Raymond Walsh MCHC (RBC) [Mass/Vol] 32.4 g/dL Normal 29.9-35.2 [facility] Comment on above: Performed By: #### C MP, BNP #### [facility] [address] [place] [address] Dr. Raymond Walsh MCV (RBC) [Entitic vol] 93.8 fL Normal 80.0-94.0 [facility] Comment on above: Performed By: #### C MP, BNP #### [facility] [address] [place] [address] Dr. Raymond Walsh MONO # 1.1 103/ul Critically high 0.3-0.[address] [facility] Comment on above: Performed By: #### C MP, BNP #### [facility] [address] [place] [address] Dr. Raymond Walsh Monocytes/100 WBC (Bld) 7.5 % Normal 1.7-12.0 [facility] Comment on above: Performed By: #### C MP, BNP #### [facility] [address] [place] [address] Dr. Raymond Walsh NEUT # 10.3 103/ul Critically high 1.4-6.5 [facility] Comment on above: Performed By: #### C MP, BNP #### [facility] [address] [place] [address] Dr. Raymond Walsh Neutrophils/100 WBC (Bld) 73.0 % Normal 43.0-75.0 [facility] Comment on above: Performed By: #### C MP, BNP #### [facility] [address] [place] [address] Dr. Raymond Walsh Platelet mean volume (Bld) [Entitic vol] 9.8 fL Normal 9.5-13.5 [facility] Comment on above: Performed By: #### C MP, BNP #### [facility] [address] [place] [address] Dr. Raymond Walsh PLT 273 103/ul Normal 150-450 [facility] Comment on above: Performed By: #### C MP, BNP #### [facility] [address] [place] [address] Dr. Raymond Walsh RBC 5.50 106/ul Normal 4.70-6.10 [facility] Comment on above: Performed By: #### C MP, BNP #### [facility] [address] [place] [address] Dr. Raymond Walsh WBC 14.1 103/ul Critically high 4.0-11.0 [facility] Comment on above: Performed By: #### C MP, BNP #### [facility] [address] [place] [address] Dr. Raymond Walsh BASO # 0.0 103/ul Normal 0.0-0.1 [facility] Comment on above: Performed By: #### C MP, BNP #### [facility] [address] [place] [address] Dr. Raymond Walsh Basophils/100 WBC (Bld) 0.2 % Normal 0.2-2.0 [facility] Comment on above: Performed By: #### C MP, BNP #### [facility] [address] [place] [address] Dr. Raymond Walsh EO # 0.0 103/ul Normal 0.0-0.7 [facility] Comment on above: Performed By: #### C MP, BNP #### [facility] [address] [place] [address] Dr. Raymond Walsh Eosinophils/100 WBC (Bld) 0.0 % Critically low 0.9-7.0 [facility] Comment on above: Performed By: #### C MP, BNP #### [facility] [address] [place] [address] Dr. Raymond Walsh Erythrocyte distribution width (RBC) [Ratio] 15.3 % Critically high 11.0-15.0 [facility] Comment on above: Performed By: #### C MP, BNP #### [facility] [address] [place] [address] Dr. Raymond Walsh Hematocrit (Bld) [Volume fraction] 49.6 % Normal 42.0-54.0 [facility] Comment on above: Performed By: #### C MP, BNP #### [facility] [address] [place] [address] Dr. Raymond Walsh Hemoglobin (Bld) [Mass/Vol] 16.4 g/dL Normal 14.0-18.0 [facility] Comment on above: Performed By: #### C MP, BNP #### [facility] [address] [place] [address] Dr. Raymond Walsh IG # 0.23 10e3/ul Critically high 0.00-0.03 [facility] Comment on above: Performed By: #### C MP, BNP #### [facility] [address] [place] [address] Dr. Raymond Walsh IG % 1.8 % Critically high 0.0-0.5 [facility] Comment on above: Performed By: #### C MP, BNP #### [facility] [address] [address] [address] Raymond Walsh LYMPH # 1.2 103/ul Normal 1.2-3.8 [facility] Comment on above: Performed By: #### C MP, BNP #### [facility] [address] [place] [address] Dr. Raymond Walsh Lymphocytes/100 WBC (Bld) 9.0 % Critically low 20.5-60.0 [facility] Comment on above: Performed By: #### C MP, BNP #### [facility] [address] [place] [address] Dr. Raymond Walsh MANUAL DIFF REQ NO Normal [facility] Comment on above: Performed By: #### C MP, BNP #### [facility] [address] [place] [address] Dr. Raymond Walsh MCH (RBC) [Entitic mass] 30.4 pg Normal 25.9-34.0 [facility] Comment on above: Performed By: #### C MP, BNP #### [facility] [address] [place] [address] Dr. Raymond Walsh MCHC (RBC) [Mass/Vol] 33.1 g/dL Normal 29.9-35.2 [facility] Comment on above: Performed By: #### C MP, BNP #### [facility] [address] [place] [address] Dr. Raymond Walsh MCV (RBC) [Entitic vol] 91.9 fL Normal 80.0-94.0 [facility] Comment on above: Performed By: #### C MP, BNP #### [facility] [address] [place] [address] Dr. Raymond Walsh MONO # 0.3 103/ul Normal 0.3-0.8 [facility] Comment on above: Performed By: #### C MP, BNP #### [facility] [address] [place] [address] Dr. Raymond Walsh Monocytes/100 WBC (Bld) 2.5 % Normal 1.7-12.0 [facility] Comment on above: Performed By: #### C MP, BNP #### [facility] [address] [place] [address] Dr. Raymond Walsh NEUT # 11.3 103/ul Critically high 1.4-6.5 [facility] Comment on above: Performed By: #### C MP, BNP #### [facility] [address] [place] [address] Dr. Raymond Walsh Neutrophils/100 WBC (Bld) 86.5 % Critically high 43.0-75.0 [facility] Comment on above: Performed By: #### C MP, BNP #### [facility] [address] [place] [address] Dr. Raymond Walsh Platelet mean volume (Bld) [Entitic vol] 9.7 fL Normal 9.5-13.5 [facility] Comment on above: Performed By: #### C MP, BNP #### [facility] [address] [place] [address] Dr. Raymond Walsh PLT 278 103/ul Normal 150-450 [facility] Comment on above: Performed By: #### C MP, BNP #### [facility] [address] [place] [address] Dr. Raymond Walsh RBC 5.40 106/ul Normal 4.70-6.10 [facility] Comment on above: Performed By: #### C MP, BNP #### [facility] [address] [place] [address] Dr. Raymond Walsh WBC 13.0 103/ul Critically high 4.0-11.0 [facility] Comment on above: Performed By: #### C MP, BNP #### [facility] [address] [place] [address] Dr. Raymond Walsh CULTURE SPUTUMon 06-26-2022 CULTURE SPUTUM Culture Observations : NORMAL RESPIRATORY GEOVANNA. Normal [facility] Comment on above: Performed By: #### P OCGLUC #### [facility] [address] [place] [address] Dr. Raymond Walsh CULTURE URINEon 06-26-2022 CULTURE URINE Culture Observations : NO GROWTH. Normal [facility] Comment on above: Performed By: #### P OCGLUC #### [facility] [address] [place] [address] Dr. Raymond Walsh [facility]16 SARS-CoV-2 (COVID-19) RNA ZACHARIAH+probe Ql (Unsp spec) Not detected Normal NOT DETECTED [facility] Comment on above: Result Comment: When diagnostic testing is negative, the possibility of a false negative should be considered in the context of a patient's recent exposures and the presence of clinical signs and symptoms consistent with SARS-CoV-2. This test is not yet approved or cleared by the [place] FDA. When there are no FDA-approved or cleared tests available, and other criteria are met, FDA can make tests available under an emergency access mechanism called an Emergency Use Authorization (EUA). The EUA for this test is supported by the [place] of Health and Human Service's declaration that circumstances exist to justify the emergency use of in vitro diagnostics for the detection and/or diagnosis of the virus that causes COVID-19. This EUA will remain in effect for the duration of the COVID-19 declaration justifying emergency of IVDs, unless it is terminated or revoked by the FDA (after which the test may no longer be used). Performed By: #### C MP, BNP #### [facility] [address] [place] [address] Dr. Raymond Walsh ER URINE PROFILEon 2 Bilirubin Ql (U) Negative Normal NEGATIVE [facility] Comment on above: Performed By: #### S PUTGS #### [facility] [address] [place] [address] Dr. Raymond Walsh Clarity (U) CLEAR Normal CLEAR [facility] Comment on above: Performed By: #### S PUTGS #### [facility] [address] [place] [address] Dr. Raymond Walsh Color (U) YELLOW Normal YELLOW [facility] Comment on above: Performed By: #### S PUTGS #### [facility] [address] [place] [address] Dr. Raymond Walsh ERUAHD A micrscopic examination will be performed if indicated. Normal [facility] Comment on above: Performed By: #### S PUTGS #### [facility] [address] [address] [address] Raymond Walsh Glucose Ql (U) Negative Normal NEGATIVE [facility] Comment on above: Performed By: #### S PUTGS #### [facility] [address] [address] [address] Raymond Walsh Hemoglobin Ql (U) Negative Normal NEGATIVE [facility] Comment on above: Performed By: #### S PUTGS #### [facility] [address] [place] [address] Dr. Raymond Walsh Ketones Ql (U) 15 mg/dl Abnormal NEGATIVE [facility] Comment on above: Performed By: #### S PUTGS #### [facility] [address] [place] [address] Dr. Raymond Walsh LEUKOCYTES Negative Normal NEGATIVE [facility] Comment on above: Performed By: #### S PUTGS #### [facility] [address] [place] [address] Dr. Raymond Walsh Nitrite Ql (U) Negative Normal NEGATIVE [facility] Comment on above: Performed By: #### S PUTGS #### [facility] [address] [place] [address] Dr. Raymond Walsh pH (U) 8.0 [pH] Normal 5-9 [facility] Comment on above: Performed By: #### S PUTGS #### [facility] [address] [place] [address] Dr. Raymond Walsh SPEC GRAVITY 1.015 Normal 1.005-<=1.02 5 [facility] Comment on above: Performed By: #### S PUTGS #### [facility] [address] [place] [address] Dr. Raymond Walsh UA PROTEIN Negative Normal NEGATIVE/ TRACE [facility] Comment on above: Performed By: #### S PUTGS #### [facility] [address] [place] [address] Dr. Raymond Walsh UR MICRO IND NOT INDICATED Normal [facility] Comment on above: Performed By: #### S PUTGS #### [facility] [address] [place] [address] Dr. Raymond Walsh Urobilinogen Qn (U) 4 {Flower'U}/dL Abnormal 0.2 - 1.0 [facility] Comment on above: Performed By: #### S PUTGS #### [facility] [address] [place] [address] Dr. Raymond Walsh LACTATE/LACTIC ACIDon 2021 Lactate [Moles/Vol] 1.8 mmol/L Normal 0.4-1.9 [facility] Comment on above: Performed By: #### C BC #### [facility] [address] [place] [address] Dr. Raymond Walsh POINT OF CARE GLUCOSEon 06-16 Glucose [Mass/Vol] 180 mg/dL Critically high -106 [facility] Comment on above: Performed By: #### C MP, BNP #### [facility] [address] [place] [address] Dr. Raymond Walsh Glucose [Mass/Vol] 184 mg/dL Critically high -106 [facility] Comment on above: Performed By: #### P OCGLUC #### [facility] [address] [place] [address] Dr. Raymond Walsh Glucose [Mass/Vol] 132 mg/dL Critically high [facility]106 [facility] Comment on above: Performed By: #### C MP, BNP #### [facility] [address] [place] [address] Dr. Raymond Walsh PROF 14(COMP METB)on 022 Albumin [Mass/Vol] 3.9 g/dL Normal 3.4-5.0 [facility] Comment on above: Performed By: #### C MP, BNP #### [facility] [address] [place] [address] Dr. Raymond Walsh Albumin/Globulin [Mass ratio] 0.9 {ratio} Normal [facility] Comment on above: Performed By: #### C MP, BNP #### [facility] [address] [place] [address] Dr. Raymond Walsh ALP [Catalytic activity/Vol] 127 U/L Critically high 46-116 [facility] Comment on above: Performed By: #### C MP, BNP #### [facility] [address] [place] [address] Dr. Raymond Walsh ALT [Catalytic activity/Vol] 66 U/L Critically high 16-63 [facility] Comment on above: Performed By: #### C MP, BNP #### [facility] [address] [place] [address] Dr. Raymond Walsh Anion gap [Moles/Vol] 13.5 mmol/L Normal [facility] Comment on above: Performed By: #### C MP, BNP #### [facility] [address] [place] [address] Dr. Raymond Walsh AST [Catalytic activity/Vol] 33 U/L Normal 15-37 [facility] Comment on above: Performed By: #### C MP, BNP #### [facility] [address] [place] [address] Dr. Raymond Walsh Bilirubin [Mass/Vol] 0.6 mg/dL Normal 0.2-1.0 [facility] Comment on above: Performed By: #### C MP, BNP #### [facility] [address] [place] [address] Dr. Raymond Walsh Calcium [Mass/Vol] 10.5 mg/dL Critically high 8.5-10.1 [facility] Comment on above: Performed By: #### C MP, BNP #### [facility] [address] [place] [address] Dr. Raymond Walsh Chloride [Moles/Vol] 91 mmol/L Critically low 98-107 [facility] Comment on above: Performed By: #### C MP, BNP #### [facility] [address] [place] [address] Dr. Raymond Walsh CO2 [Moles/Vol] 34.8 mmol/L Critically high 21.0-32.0 [facility] Comment on above: Performed By: #### C MP, BNP #### [facility] [address] [place] [address] Dr. Raymond Walsh Creatinine [Mass/Vol] 1.17 mg/dL Normal 0.70-1.30 [facility] Comment on above: Performed By: #### C MP, BNP #### [facility] [address] [place] [address] Dr. Raymond Walsh EGFR-AF SAMOAN >60 Normal >=60 [facility] Comment on above: Performed By: #### C MP, BNP #### [facility] [address] [place] [address] Dr. Raymond Walsh EGFR-NON AF SAMOAN >60 Normal >=60 [facility] Comment on above: Performed By: #### C MP, BNP #### [facility] [address] [place] [address] Dr. Raymond Walsh Globulin (S) [Mass/Vol] 4.3 g/dL Normal [facility] Comment on above: Performed By: #### C MP, BNP #### [facility] [address] [place] [address] Dr. Raymond Walsh Glucose [Mass/Vol] 88 mg/dL Normal 74-106 [facility] Comment on above: Performed By: #### C MP, BNP #### [facility] [address] [place] [address] Dr. Raymond Walsh Potassium [Moles/Vol] 5.3 mmol/L Critically high 3.5-5.1 [facility] Comment on above: Performed By: #### C MP, BNP #### [facility] [address] [place] [address] Dr. Raymond Walsh Protein [Mass/Vol] 8.2 g/dL Normal 6.4-8.2 [facility] Comment on above: Performed By: #### C MP, BNP #### [facility] Laboratory [address] [place] [address] Dr. Raymond Walsh Sodium [Moles/Vol] 134 mmol/L Critically low 136-145 [facility] Comment on above: Performed By: #### C MP, BNP #### [facility] [address] [place] [address] Dr. Raymond Walsh Urea nitrogen [Mass/Vol] 60.0 mg/dL Critically high 7.0-18.0 [facility] Comment on above: Performed By: #### C MP, BNP #### [facility] [address] [place] [address] Dr. Raymond Walsh Urea nitrogen/Creatinine [Mass ratio] 51.3 mg/mg Normal [facility] Comment on above: Performed By: #### C MP, BNP #### [facility] [address] [place] [address] Dr. Raymond Walsh Albumin [Mass/Vol] 3.9 g/dL Normal 3.4-5.0 [facility] Comment on above: Performed By: #### C VDTBH #### [facility] [address] [place] [address] Dr. Raymond Walsh Albumin/Globulin [Mass ratio] 1.0 {ratio} Normal [facility] Comment on above: Performed By: #### C VDTBH #### [facility] [address] [place] [address] Dr. Raymond Walsh ALP [Catalytic activity/Vol] 129 U/L Critically high 46-116 [facility] Comment on above: Performed By: #### C VDTBH #### [facility] [address] [place] [address] Dr. Raymond Walsh ALT [Catalytic activity/Vol] 66 U/L Critically high 16-63 [facility] Comment on above: Performed By: #### C VDTBH #### [facility] [address] [place] [address] Dr. Raymond Walsh Anion gap [Moles/Vol] 14.7 mmol/L Normal [facility] Comment on above: Performed By: #### C VDTBH #### [facility] [address] [place] [address] Dr. Raymond Walsh AST [Catalytic activity/Vol] 30 U/L Normal 15-37 [facility] Comment on above: Performed By: #### C VDTBH #### [facility] [address] [place] [address] Dr. Raymond Walsh Bilirubin [Mass/Vol] 0.7 mg/dL Normal 0.2-1.0 [facility] Comment on above: Performed By: #### C VDTBH #### [facility] [address] [place] [address] Dr. Raymond Walsh Calcium [Mass/Vol] 10.2 mg/dL Critically high 8.5-10.1 [facility] Comment on above: Performed By: #### C VDTBH #### [facility] [address] [place] [address] Dr. Raymond Walsh Chloride [Moles/Vol] 87 mmol/L Critically low 98-107 [facility] Comment on above: Performed By: #### C VDTBH #### [facility] [address] [place] [address] Dr. Raymond Walsh CO2 [Moles/Vol] 31.3 mmol/L Normal 21.0-32.0 [facility] Comment on above: Performed By: #### C VDTBH #### [facility] [address] [place] [address] Dr. Raymond Walsh Creatinine [Mass/Vol] 1.40 mg/dL Critically high 0.70-1.30 [facility] Comment on above: Performed By: #### C VDTBH #### [facility] [address] [place] [address] Dr. Raymond Walsh EGFR-AF SAMOAN >60 Normal >=60 [facility] Comment on above: Performed By: #### C VDTBH #### [facility] [address] [place] [address] Dr. Raymond Walsh EGFR-NON AF SAMOAN 51 mL/min/1.73m2 Critically low >=60 [facility] Comment on above: Performed By: #### C VDTBH #### [facility] [address] [place] [address] Dr. Raymond Walsh Globulin (S) [Mass/Vol] 4.1 g/dL Normal [facility] Comment on above: Performed By: #### C VDTBH #### [facility] [address] [place] [address] Dr. Raymond Walsh Glucose [Mass/Vol] 284 mg/dL Critically high 74-106 [facility] Comment on above: Performed By: #### C VDTBH #### [facility] [address] [place] [address] Dr. Raymond Walsh Potassium [Moles/Vol] 6.0 mmol/L Critically high 3.5-5.1 [facility] Comment on above: Performed By: #### C VDTBH #### [facility] [address] [place] [address] Dr. Raymond Walsh Protein [Mass/Vol] 8.0 g/dL Normal 6.4-8.2 [facility] Comment on above: Performed By: #### C VDTBH #### [facility] [address] [place] [address] Dr. Raymond Walsh Sodium [Moles/Vol] 127 mmol/L Critically low 136-145 [facility] Comment on above: Performed By: #### C VDTBH #### [facility] [address] [place] [address] Dr. Raymond Walsh Urea nitrogen [Mass/Vol] 60.0 mg/dL Critically high 7.0-18.0 [facility] Comment on above: Performed By: #### C VDTBH #### [facility] [address] [place] [address] Dr. Raymond Walsh Urea nitrogen/Creatinine [Mass ratio] 42.9 mg/mg [facility] Comment on above: Performed By: #### C VDTBH #### [facility] [address] [place] [address] Dr. Raymond Walsh SPUTUM GRAM STAINon 06-26-20 22 COMMENTS Normal [facility] Comment on above: Performed By: #### S PUTGS #### [facility] [address] [place] [address] Dr. Raymond Walsh DIPHTHEROIDS Normal [facility] Comment on above: Performed By: #### S PUTGS #### [facility] [address] [place] [address] Dr. Raymond Walsh EPITHELIALS <25 Normal [facility] Comment on above: Performed By: #### S PUTGS #### [facility] [address] [address] [address] Raymond Walsh FUNGAL ELEMENTS Normal [facility] Comment on above: Performed By: #### S PUTGS #### [facility] [address] [address] [address] Raymond Walsh GRAM NEG BACILLI Normal [facility] Comment on above: Performed By: #### S PUTGS #### [facility] [address] [address] [address] Raymond Walsh GRAM NEG DIPPLOCOCCI Normal [facility] Comment on above: Performed By: #### S PUTGS #### [facility] [address] [address] [address] Raymond Walsh GRAM POS BACILLI Normal [facility] Comment on above: Performed By: #### S PUTGS #### [facility] [address] [address] [address] Raymond Walsh GRAM POSITIVE COCCI MANY Normal [facility] Comment on above: Performed By: #### S PUTGS #### [facility] [address] [address] [address] Raymond Walsh WBC (Bld) [#/Vol] 10*3/uL Normal [facility] Comment on above: Performed By: #### S PUTGS #### [facility] [address] [address] [address] Raymond Walsh XR CHEST 1 Von 06-26-2022 XR CHEST 1 V EXAM: XR CHEST 1 V HISTORY: COUGH COMPARISON: Chest x-ray 06/22/2022 TECHNIQUE: Single frontal view chest x-ray FINDINGS: Mild bibasilar linear lung opacities reflect atelectasis/scar, less likely infiltrates. Mild right hemidiaphragm elevation. Borderline prominent heart size. Heart monitor device, unchanged. No lobar consolidation, large pleural effusions, pneumothorax, or acute bony abnormality. IMPRESSION: Mild bibasilar linear lung opacities reflect atelectasis/scar, less likely infiltrates. Correlate clinically. Mild right hemidiaphragm elevation, similar to prior exam. Electronically authenticated by: GUERITA MAJOR Date: 2022-06-25 23:21 Normal [facility] Abstracton 06-22-2022 Abstract [id number] Evgeny Delgado 1955 M Date Provider Department Center 06/22/2022 NITA BULL [facility] Family History Problem Relation Age of Onset Other Father Family Status - Relation Status Age at Father Normal [facility] XR CHEST 2 Von 06-22-2022 XR CHEST 2 V EXAMINATION: XR CHES T 2 V HISTORY: Cough COMPARISON: 05/20/2022 TECHNIQUE: pa/lat FINDINGS: LUNGS: No significant pulmonary parenchymal abnormalities. VASCULATURE: No increased pulmonary vasculature. PLEURA: No pneumothorax, effusion, or pleural thickening. Elevated right hemidiaphragm, stable CARDIAC: No cardiomegaly or cardiac silhouette abnormality. MEDIASTINUM: No visible mass or adenopathy. Implanted electronic device BONES: No fracture or visible bone lesion. OTHER: Negative. IMPRESSION: No acute disease. Electronically authenticated by: NAIMA VANEGAS Date: 2022-06-22 18:32 Normal [facility] PROF CHEM 8 (BAS METB)on Anion gap [Moles/Vol] 12.1 mmol/L Normal [facility] Comment on above: Performed By: #### P OCGLUC #### [facility] [address] [address] [address] Raymond Walsh Calcium [Mass/Vol] 9.9 mg/dL Normal 8.5-10.1 [facility] Comment on above: Performed By: #### P OCGLUC #### [facility] [address] [address] [address] Raymond Walsh Chloride [Moles/Vol] 90 mmol/L Critically low 98-107 [facility] Comment on above: Performed By: #### P OCGLUC #### [facility] [address] [address] [address] Raymond Walsh CO2 [Moles/Vol] 37.6 mmol/L Critically high 21.0-32.0 [facility] Comment on above: Performed By: #### P OCGLUC #### [facility] [address] [address] [address] Raymond Walsh Creatinine [Mass/Vol] 1.19 mg/dL Normal 0.70-1.30 [facility] Comment on above: Performed By: #### P OCGLUC #### [facility] [address] [address] [address] Raymond Walsh EGFR-AF SAMOAN >60 Normal >=60 [facility] Comment on above: Performed By: #### P OCGLUC #### [facility] [address] [address] [address] Raymond Walsh EGFR-NON AF SAMOAN >60 Normal >=60 [facility] Comment on above: Performed By: #### P OCGLUC #### [facility] [address] [address] [address] Raymond Walsh Glucose [Mass/Vol] 141 mg/dL Critically high 74-106 [facility] Comment on above: Performed By: #### P OCGLUC #### [facility] [address] [address] [address] Raymond Walsh Potassium [Moles/Vol] 4.7 mmol/L Normal 3.5-5.1 [facility] Comment on above: Performed By: #### P OCGLUC #### [facility] [address] [address] [address] Raymond Walsh Sodium [Moles/Vol] 135 mmol/L Critically low 136-145 [facility] Comment on above: Performed By: #### P OCGLUC #### [facility] [address] [address] [address] Raymond Walsh Urea nitrogen [Mass/Vol] 41.0 mg/dL Critically high 7.0-18.0 [facility] Comment on above: Performed By: #### P OCGLUC #### [facility] [address] [address] [address] Raymond Walsh Urea nitrogen/Creatinine [Mass ratio] 34.5 mg/mg Normal [facility] Comment on above: Performed By: #### P OCGLUC #### [facility] [address] [address] [address] Raymond Walsh BASIC METABOLIC PANELon 08 Calcium [Mass/Vol] 8.6 mg/dL Normal 8.6-10.3 [facility] Comment on above: Order Comment: No: D o not add to previous draw Performed By: #### 5 0608 #### [facility] [address] [place] [address], [facility] Chloride [Moles/Vol] 89 mmol/L Low 98-107 [facility] Comment on above: Order Comment: No: D o not add to previous draw Performed By: #### 5 0608 #### [facility] [address] [place] [address], [facility] CO2 [Moles/Vol] 42 mmol/L High 21-31 [facility] Comment on above: Order Comment: No: D o not add to previous draw Performed By: #### 5 0608 #### [facility] [address] [place] [address], [facility] Creatinine [Mass/Vol] 0.66 mg/dL Low 0.70-1.30 [facility] Comment on above: Order Comment: No: D o not add to previous draw Performed By: #### 5 0608 #### [facility] [address] GFR/1.73 sq M.predicted among non-blacks MDRD (S/P/Bld) [Vol rate/Area] mL/min/{1.73_m2} Normal >60 [facility] Comment on above: Order Comment: No: D o not add to previous draw Result Comment: The [facility]'s estimated glomerular filtration rate (eGFR) will no longer include consideration of race in its calculation. The National Kid[employer]'s eGFR Task Force developed new recommendations for the estimation of the glomerular filtration rate in the [place] They recommend immediate implementation of the new equation refit without the race variable in all laboratories because the calculation does not include race. In addition to not including race in the calculation and reporting, it included diversity in its development, and has acceptable performance characteristics and potential consequences that do not disproportionately affect any one group of individuals. Performed By: #### 5 [id number] #### [facility] [address] [place] [address], [facility] Glucose [Mass/Vol] 116 mg/dL High 70-100 [facility] Comment on above: Order Comment: No: D o not add to previous draw Performed By: #### 5 0608 #### [facility] [address] [place] [address], [facility] Potassium [Moles/Vol] 4.0 mmol/L Normal 3.5-5.1 [facility] Comment on above: Order Comment: No: D o not add to previous draw Performed By: #### 5 0608 #### [facility] [address] [place] [address], [facility] Sodium [Moles/Vol] 136 mmol/L Normal 136-145 [facility] Comment on above: Order Comment: No: D o not add to previous draw Performed By: #### 5 0608 #### [facility] [address] [place] [address], [facility] Urea nitrogen [Mass/Vol] 33 mg/dL High 7-25 [facility] Comment on above: Order Comment: No: D o not add to previous draw Performed By: #### 5 0608 #### [facility] [address] [place] [address], [facility] CBC COMPLETE BLOOD COUNTon 0 - Erythrocyte distribution width (RBC) [Ratio] 14.5 % Normal 11.5-15.0 [facility] Comment on above: Order Comment: If no t done in ED No: Do not add to previous draw Performed By: #### 4 0422, [id number] #### [facility] [address] [place] [address], [facility] Hematocrit (Bld) [Volume fraction] 47.7 % Normal 39.0-50.0 [facility] Comment on above: Order Comment: If no t done in ED No: Do not add to previous draw Performed By: #### 4 [id number], [id number] #### [facility] [address] [place] [address], [facility] Hemoglobin (Bld) [Mass/Vol] 14.3 g/dL Normal 13.0-17.0 [facility] Comment on above: Order Comment: If no t done in ED No: Do not add to previous draw Performed By: #### 4 [id number], 18235 #### [facility] [address] [place] [address], [facility] MCH (RBC) [Entitic mass] 29.5 pg Normal 27.0-33.0 [facility] Comment on above: Order Comment: If no t done in ED No: Do not add to previous draw Performed By: #### 4 [id number], 86632 #### [facility] [address] [place] [address], [facility] MCHC (RBC) [Mass/Vol] 30.0 g/dL Low 32.0-35.0 [facility] Comment on above: Order Comment: If no t done in ED No: Do not add to previous draw Performed By: #### 4 [id number], [id number] #### [facility] [address] [place] [address], [facility] MCV (RBC) [Entitic vol] 98.6 fL High 82.0-98.0 [facility] Comment on above: Order Comment: If no t done in ED No: Do not add to previous draw Performed By: #### 4 [id number], 50450 #### [facility] [address] [place] [address], [facility] Nucleated RBC/100 WBC (Bld) [Ratio] 0 % Normal 0-0 [facility] Comment on above: Order Comment: If no t done in ED No: Do not add to previous draw Performed By: #### 4 4344, 61256 #### [facility] [address] [place] [address], [facility] PLAT CNT 185 10*3/uL Normal 150-400 [facility] Comment on above: Order Comment: If no t done in ED No: Do not add to previous draw Performed By: #### 4 [id number], 06229 #### [facility] [address] [place] [address], [facility] RBC (Bld) [#/Vol] 4.84 10*6/uL Normal 4.20-5.70 [facility] Comment on above: Order Comment: If no t done in ED No: Do not add to previous draw Performed By: #### 4 [id number], 74963 #### [facility] [address] [place] [address], [facility] WBC (Bld) [#/Vol] 9.31 10*3/uL Normal 4.00-10.60 [facility] Comment on above: Order Comment: If no t done in ED No: Do not add to previous draw Performed By: #### 4 [id number], 71269 #### [facility] [address] [place] [address], [facility] POC GLUCOSE LABon 05-26-2022 Glucose [Mass/Vol] 155 mg/dL High 70-100 [facility] Comment on above: Performed By: #### 0 0071 #### [facility] [address] [place] [address], [facility] Glucose [Mass/Vol] 221 mg/dL High 70-100 [facility] Comment on above: Performed By: #### 4 [id number], 71659 #### [facility] [address] [facility] [place] [address], [facility] Glucose [Mass/Vol] 118 mg/dL High 70-100 [facility] Comment on above: Performed By: #### 8 [id number] ####[facility] [facility] [place] [address], [facility] BASIC METABOLIC PANELon 05-16 Calcium [Mass/Vol] 8.7 mg/dL Normal 8.6-10.3 [facility] Comment on above: Order Comment: This order is a replacement of the rejected order with accession number [id number]. Performed By: #### 0 0071 #### [facility] [address] Chloride [Moles/Vol] 89 mmol/L Low 98-107 [facility] Comment on above: Order Comment: This order is a replacement of the rejected order with accession number [id number]. Performed By: #### 0 0071 #### [facility] [address] [facility] CO2 [Moles/Vol] 43 mmol/L High 21-31 [facility] Comment on above: Order Comment: This order is a replacement of the rejected order with accession number [id number]. Performed By: #### 0 0071 #### [facility] [address] Creatinine [Mass/Vol] 0.55 mg/dL Low 0.70-1.30 [facility] Comment on above: Order Comment: This order is a replacement of the rejected order with accession number [id number]. Performed By: #### 0 0071 #### [facility] [address] GFR/1.73 sq M.predicted among non-blacks MDRD (S/P/Bld) [Vol rate/Area] mL/min/{1.73_m2} Normal >60 [facility] Comment on above: Order Comment: This order is a replacement of the rejected order with accession number [id number]. Result Comment: The [facility]'s estimated glomerular filtration rate (eGFR) will no longer include consideration of race in its calculation. The National Kid[employer] Foundation's eGFR Task Force developed new recommendations for the estimation of the glomerular filtration rate in the [place] They recommend immediate implementation of the new equation refit without the race variable in all laboratories because the calculation does not include race. In addition to not including race in the calculation and reporting, it included diversity in its development, and has acceptable performance characteristics and potential consequences that do not disproportionately affect any one group of individuals. Performed By: #### 0 0071 #### [facility] [address] [place] [address], [facility] Glucose [Mass/Vol] 117 mg/dL High 70-100 [facility] Comment on above: Order Comment: This order is a replacement of the rejected order with accession number [id number]. Performed By: #### 0 0071 #### [facility] [address] [place] [address], [facility] Potassium [Moles/Vol] 4.2 mmol/L Normal 3.5-5.1 [facility] Comment on above: Order Comment: This order is a replacement of the rejected order with accession number [id number]. Performed By: #### 0 0071 #### [facility] [address] [place] [address], [facility] Sodium [Moles/Vol] 137 mmol/L Normal 136-145 [facility] Comment on above: Order Comment: This order is a replacement of the rejected order with accession number [id number]. Performed By: #### 0 0071 #### [facility] [address] [place] [address], [facility] Urea nitrogen [Mass/Vol] 24 mg/dL Normal 7-25 [facility] Comment on above: Order Comment: This order is a replacement of the rejected order with accession number [id number]. Performed By: #### 0 0071 #### [facility] [address] [place] [address], [facility] CBC COMPLETE BLOOD COUNTon 0 8- Erythrocyte distribution width (RBC) [Ratio] 14.4 % Normal 11.5-15.0 [facility] Comment on above: Order Comment: If no t done in ED No: Do not add to previous draw Performed By: #### 4 [id number], 81658 #### [facility] [address] [place] [id number], [facility] Hematocrit (Bld) [Volume fraction] 48.5 % Normal 39.0-50.0 [facility] Comment on above: Order Comment: If no t done in ED No: Do not add to previous draw Performed By: #### 4 [id number], [id number] #### [facility] [address] [place] [address], [facility] Hemoglobin (Bld) [Mass/Vol] 14.4 g/dL Normal 13.0-17.0 [facility] Comment on above: Order Comment: If no t done in ED No: Do not add to previous draw Performed By: #### 4 [id number], 73478 #### [facility] [address] [place] [address], [facility] MCH (RBC) [Entitic mass] 29.5 pg Normal 27.0-33.0 [facility] Comment on above: Order Comment: If no t done in ED No: Do not add to previous draw Performed By: #### 4 43, 33977 #### [facility] [address] [place] [address], [place] MCHC (RBC) [Mass/Vol] 29.7 g/dL Low 32.0-35.0 [facility] Comment on above: Order Comment: If no t done in ED No: Do not add to previous draw Performed By: #### 4 43, 13265 #### [facility] [address] [place] [address], [facility] MCV (RBC) [Entitic vol] 99.4 fL High 82.0-98.0 [facility] Comment on above: Order Comment: If no t done in ED No: Do not add to previous draw Performed By: #### 4 [id number], 01395 #### [facility] [address] [place] [address], [place] Nucleated RBC/100 WBC (Bld) [Ratio] 0 % Normal 0-0 [facility] Comment on above: Order Comment: If no t done in ED No: Do not add to previous draw Performed By: #### 4 4396, [id number] #### [facility] [address] [place] [address], [facility] PLAT CNT 190 10*3/uL Normal 150-400 [facility] Comment on above: Order Comment: If no t done in ED No: Do not add to previous draw Performed By: #### 4 4396, [id number] #### [facility] [address] [place] [address], [facility] RBC (Bld) [#/Vol] 4.88 10*6/uL Normal 4.20-5.70 [facility] Comment on above: Order Comment: If no t done in ED No: Do not add to previous draw Performed By: #### 4 4396, [id number] #### [facility] [address] [place] [address], [facility] WBC (Bld) [#/Vol] 9.95 10*3/uL Normal 4.00-10.60 [facility] Comment on above: Order Comment: If no t done in ED No: Do not add to previous draw Performed By: #### 4 4396, 51640 #### [facility] [address] [facility] [place] [address], [facility] Cardiovascular Lab Reporton 05-25-2022 Cardiovascular Lab Report [facility] Patient Name: [facility] Evgeny MR #: [id number] Department of Physician: Seun Lowe M.D. Division of Service Date: 05/24/2022 Cardiology Birthdate: 1955 Adult Cardiovascular Room #: 3AB [id number] Services [facility] [address] [place], [place] [address] Cardiovascular Laboratory Report FINAL IMPRESSION: 1. Ijym-yg-wxhbuyun three-vessel coronary artery disease. 2. Mildly reduced global left ventricular systolic function by noninvasive imaging. 3. Mildly elevated right-sided heart pressures and moderately elevated wedge pressure consistent with biventricular congestive failure. 4. Normal cardiac output/cardiac index. RECOMMENDATIONS: 1. Consider alternate etiologies for the patient's heart failure with reduced ejection fraction. 2. Aggressive cardiovascular risk factor modification. 3. Optimal medical therapy for coronary artery disease, should include aspirin, high-intensity statin therapy, beta-trish, and angiotensin-converting enzyme inhibitor. 4. For elevated filling pressures and dyspnea, would suggest diuresis, strict inputs and outputs and daily weights. 5. Further recommendations deferred to the inpatient services. PROCEDURES: Ultrasound-guided access to the right common femoral artery, ultrasound-guided access to right common femoral vein, limited femoral angiography, bilateral selective coronary angiography, right heart catheterization. METHODS: After risks, benefits, and alternatives were explained, written informed consent was obtained. The patient was prepped and draped in usual sterile fashion over the right groin. Using 1% lidocaine solution, local infiltration anesthesia was achieved. Using a modified Seldinger technique, a micropuncture kit and under ultrasound guidance access to the right common femoral artery was obtained. A 6-Tongan 11 cm sheath was inserted without difficulty. Angiography via the inner cannula of the sheaths had been performed prior to upsizing. This was repeated over the vein. A 6-Tongan 11 cm sheath was advanced in. A Stevenson catheter was used for right heart catheterization measuring pressures in the right atrium, right ventricle, pulmonary artery, and pulmonary capillary wedge positions. Oxygen saturations were obtained and cardiac output/cardiac index was calculated using the modified Elysia principle. The Stevenson catheter was removed. Bilateral selective coronary angiography was performed using JL4 and JR4 catheters. After reviewing the images, it was elected to conclude the procedure. All catheters were removed. The femoral sheath was to be removed with application of manual pressure to achieve optimal hemostasis given the high bifurcation. Overall, the patient tolerated the procedure well. There were no overt complications. He was to be transferred to the holding area in stable condition. FINDINGS: Hemodynamics. 1. AO: 110/74. 2. RA: 4. 3. RV: 42/0, 4. 4. PA: 42/16 (28). 5. PCWP: 20. 6. TPG 8. 7. Cardiac output: 6.57/cardiac index 3.19. LEFT VENTRICULOGRAPHY: This was not performed. Ejection fraction is noted to be 40% to 45% by noninvasive imaging. CORONARY ARTERIES: Left main coronary artery: This arises from the left coronary cusp. It bifurcates into the left anterior descending and left circumflex coronary arteries. It is free of significant stenosis. Left anterior descending coronary artery: It shows mild plaque and luminal irregularities throughout. There is a short vessel that stop shy of the apex. The diagonal branches show caliber reduction. Left circumflex coronary artery: This shows mild plaque and luminal irregularities. Right coronary artery: This is a large dominant vessel giving rise to the posterior descending and posterolateral branches. It shows a proximal 40% stenosis followed by significant ectasia throughout the mid and distal portion. The posterior descending shows a mid vessel 40% to 50% stenosis. The vessel extends out into the inferoapex. Limited femoral angiography: Shows a high bifurcation. Manual pressure was held for hemostasis. INDICATIONS: New onset heart failure with mid range ejection fraction. Electronically Signed by: Anuj Gracia M.D. 06/02/2022 09:56 A Anuj Gracia M.D. Date Dict: 05/24/2022/12:02 P/Anuj Gracia M.D. Date Trans: 05/25/2022 03:41 A/tonio [id number] cc: Chirag Ragsdale [address] [place] [id number] George Nieto M.D. [address] [place] [id number] Normal [facility] POC GLUCOSE LABon 05-25-2022 Glucose [Mass/Vol] 185 mg/dL High 70-100 [facility] Comment on above: Performed By: #### 8 [id number] ####[facility] [facility] [place] [address], [facility] Glucose [Mass/Vol] 184 mg/dL High 70-100 [facility] Comment on above: Performed By: #### 5 0608 #### [facility] [address] [facility] [place] [address], [place] Glucose [Mass/Vol] 171 mg/dL High 70-100 [facility] Comment on above: Performed By: #### 8 5499 ####[facility] [place] [address], [place] Glucose [Mass/Vol] 123 mg/dL High 70-100 [facility] Comment on above: Performed By: #### 0 0071 #### [facility] [address] [place] [address], [facility] BASIC METABOLIC PANELon 08-0 Calcium [Mass/Vol] 9.0 mg/dL Normal 8.6-10.3 [facility] Comment on above: Order Comment: No: D o not add to previous draw Performed By: #### 0 0071, 91420 #### [facility] [address] [place] [address], [place] Chloride [Moles/Vol] 90 mmol/L Low 98-107 [facility] Comment on above: Order Comment: No: D o not add to previous draw Performed By: #### 0 0071, 71200 #### [facility] [address] [place] [address], [place] CO2 [Moles/Vol] 43 mmol/L High 21-31 [facility] Comment on above: Order Comment: No: D o not add to previous draw Performed By: #### 0 0071, 39923 #### [facility] [address] [place] [address], [place] Creatinine [Mass/Vol] 0.51 mg/dL Low 0.70-1.30 [facility] Comment on above: Order Comment: No: D o not add to previous draw Performed By: #### 0 0071, 75375 #### [facility] [address] [place] [address], [place] GFR/1.73 sq M.predicted among non-blacks MDRD (S/P/Bld) [Vol rate/Area] mL/min/{1.73_m2} Normal >60 [facility] Comment on above: Order Comment: No: D o not add to previous draw Result Comment: [facility]'s estimated glomerular filtration rate (eGFR) will no longer include consideration of race in its calculation. The National Kid[employer]'s eGFR Task Force developed new recommendations for the estimation of the glomerular filtration rate in the [place] They recommend immediate implementation of the new equation refit without the race variable in all laboratories because the calculation does not include race. In addition to not including race in the calculation and reporting, it included diversity in its development, and has acceptable performance characteristics and potential consequences that do not disproportionately affect any one group of individuals. Performed By: #### 0 0071, 67295 #### [facility] [address] [place] [address], [facility] Glucose [Mass/Vol] 104 mg/dL High 70-100 [facility] Comment on above: Order Comment: No: D o not add to previous draw Performed By: #### 0 0071, 49400 #### [facility] [address] [place] [address], [facility] Potassium [Moles/Vol] 4.3 mmol/L Normal 3.5-5.1 [facility] Comment on above: Order Comment: No: D o not add to previous draw Performed By: #### 0 0071, 36413 #### [facility] [address] [place] [address], [facility] Sodium [Moles/Vol] 139 mmol/L Normal 136-145 [facility] Comment on above: Order Comment: No: D o not add to previous draw Performed By: #### 0 0071, 98841 #### [facility] [address] [place] [address], [facility] Urea nitrogen [Mass/Vol] 28 mg/dL High 7-25 [facility] Comment on above: Order Comment: No: D o not add to previous draw Performed By: #### 0 0071, 49140 #### [facility] [address] [place] [address], [place] CBC W/DIFFon 05-24-2022 ABS IMM GRANS 0.1 10*3/uL Normal 0.0-0.2 [facility] Comment on above: Order Comment: No: D o not add to previous draw Performed By: #### 5 0103 #### [facility] [address] [place] [address], [facility] ABS NEUTROPHILS 6.9 10*3/uL Normal 1.6-7.6 [facility] Comment on above: Order Comment: No: D o not add to previous draw Performed By: #### 5 0103 #### [facility] [address] [place] [address], [facility] Basophils (Bld) [#/Vol] 0.0 10*3/uL Normal 0.0-0.2 [facility] Comment on above: Order Comment: No: D o not add to previous draw Performed By: #### 5 0103 #### [facility] [address] [place] [address], [facility] Basophils/100 WBC (Bld) 0.4 % Normal 0.0-1.0 [facility] Comment on above: Order Comment: No: D o not add to previous draw Performed By: #### 5 0103 #### [facility] [address] [place] [address], [facility] Eosinophils (Bld) [#/Vol] 0.2 10*3/uL Normal 0.0-0.5 [facility] Comment on above: Order Comment: No: D o not add to previous draw Performed By: #### 5 0103 #### [facility] [address] [place] [id number], [facility] Eosinophils/100 WBC (Bld) 1.6 % Normal 0.0-6.0 [facility] Comment on above: Order Comment: No: D o not add to previous draw Performed By: #### 5 0103 #### [facility] [address] [place] [address], [facility] Erythrocyte distribution width (RBC) [Ratio] 14.8 % Normal 11.5-15.0 [facility] Comment on above: Order Comment: No: D o not add to previous draw Performed By: #### 5 0103 #### [facility] [address] [place] [address], [facility] Hematocrit (Bld) [Volume fraction] 48.9 % Normal 39.0-50.0 [facility] Comment on above: Order Comment: No: D o not add to previous draw Performed By: #### 5 3 #### [facility] [address] [place] [id number], [facility] Hemoglobin (Bld) [Mass/Vol] 14.6 g/dL Normal 13.0-17.0 [facility] Comment on above: Order Comment: No: D o not add to previous draw Performed By: #### 5 3 #### [facility] [address] [place] [address], [facility] IMMATURE GRANS 0.5 % Normal 0.0-1.0 [facility] Comment on above: Order Comment: No: D o not add to previous draw Performed By: #### 5 3 #### [facility] [address] [facility] [place] [address], [facility] Lymphocytes (Bld) [#/Vol] 1.5 10*3/uL Normal 1.2-4.0 [facility] Comment on above: Order Comment: No: D o not add to previous draw Performed By: #### 5 3 #### [facility] [address] [facility] [place] [address], [facility] Lymphocytes/100 WBC (Bld) 16.2 % Low 20.0-45.0 [facility] Comment on above: Order Comment: No: D o not add to previous draw Performed By: #### 5 3 #### [facility] [address] [place] [id number], [facility] MCH (RBC) [Entitic mass] 29.4 pg Normal 27.0-33.0 [facility] Comment on above: Order Comment: No: D o not add to previous draw Performed By: #### 5 0103 #### [facility] [address] [place] [address], [facility] MCHC (RBC) [Mass/Vol] 29.9 g/dL Low 32.0-35.0 [facility] Comment on above: Order Comment: No: D o not add to previous draw Performed By: #### 5 0103 #### [facility] [address] [place] [id number], [facility] MCV (RBC) [Entitic vol] 98.4 fL High 82.0-98.0 [facility] Comment on above: Order Comment: No: D o not add to previous draw Performed By: #### 5 0103 #### [facility] [address] [facility] [place] [address], [facility] Monocytes (Bld) [#/Vol] 0.7 10*3/uL Normal 0.1-1.0 [facility] Comment on above: Order Comment: No: D o not add to previous draw Performed By: #### 5 0103 #### [facility] [address] [place] [address], [facility] MONOS 7.6 % Normal 5.0-12.0 [facility] Comment on above: Order Comment: No: D o not add to previous draw Performed By: #### 5 0103 #### [facility] [address] [facility] [address], [facility] Neutrophils/100 WBC (Bld) 73.7 % High 40.0-72.0 [facility] Comment on above: Order Comment: No: D o not add to previous draw Performed By: #### 5 0103 #### [facility] [address] [place] [id number], [facility] Nucleated RBC/100 WBC (Bld) [Ratio] 0 % Normal 0-0 [facility] Comment on above: Order Comment: No: D o not add to previous draw Performed By: #### 5 3 #### [facility] [address] [place] [id number], [facility] PLAT CNT 184 10*3/uL Normal 150-400 [facility] Comment on above: Order Comment: No: D o not add to previous draw Performed By: #### 5 102 #### [facility] [address] [place] [address], [facility] RBC (Bld) [#/Vol] 4.97 10*6/uL Normal 4.20-5.70 [facility] Comment on above: Order Comment: No: D o not add to previous draw Performed By: #### 5 102 #### [facility] [address] [place] [address], [facility] WBC (Bld) [#/Vol] 9.37 10*3/uL Normal 4.00-10.60 [facility] Comment on above: Order Comment: No: D o not add to previous draw Performed By: #### 5 102 #### [facility] [address] [facility] [place] [id number], [facility] MAGNESIUM BLOODon 05-24-2022 Magnesium [Mass/Vol] 1.8 mg/dL Low 1.9-2.7 [facility] Comment on above: Performed By: #### 0 0071, 72112 #### [facility] [address] [place] [address], [facility] POC GLUCOSE LABon 05-24-2022 Glucose [Mass/Vol] 156 mg/dL High 70-100 [facility] Comment on above: Performed By: #### 0 0071 #### [facility] [address] [place] [address], [facility] Glucose [Mass/Vol] 158 mg/dL High 70-100 [facility] Comment on above: Performed By: #### 0 0071 #### [facility] [address] [place] [address], [place] Glucose [Mass/Vol] 92 mg/dL Normal 70-100 [facility] Comment on above: Performed By: #### 0 0071 #### [facility] [address] [place] [address], [place] Glucose [Mass/Vol] 107 mg/dL High 70-100 [facility] Comment on above: Performed By: #### 0 0071 #### [facility] [address] [place] [address], [place] BASIC METABOLIC PANELon 08-0 -2021 Calcium [Mass/Vol] 9.8 mg/dL Normal 8.6-10.3 [facility] Comment on above: Order Comment: No: D o not add to previous draw Performed By: #### 0 0071, 69604 #### [facility] [address] [place] [address], [place] Chloride [Moles/Vol] 89 mmol/L Low 98-107 [facility] Comment on above: Order Comment: No: D o not add to previous draw Performed By: #### 0 0071, 74813 #### [facility] [address] [place] [address], [place] CO2 [Moles/Vol] 42 mmol/L High 21-31 [facility] Comment on above: Order Comment: No: D o not add to previous draw Performed By: #### 0 0071, 47436 #### [facility] [address] [place] [address], [place] Creatinine [Mass/Vol] 0.55 mg/dL Low 0.70-1.30 [facility] Comment on above: Order Comment: No: D o not add to previous draw Performed By: #### 0 0071, 31930 #### [facility] [address] [place] [address], [place] GFR/1.73 sq M.predicted among non-blacks MDRD (S/P/Bld) [Vol rate/Area] mL/min/{1.73_m2} Normal >60 [facility] Comment on above: Order Comment: No: D o not add to previous draw Result Comment: [facility]'s estimated glomerular filtration rate (eGFR) will no longer include consideration of race in its calculation. The [employer] Kid[employer]'s eGFR Task Force developed new recommendations for the estimation of the glomerular filtration rate in the [place] They recommend immediate implementation of the new equation refit without the race variable in all laboratories because the calculation does not include race. In addition to not including race in the calculation and reporting, it included diversity in its development, and has acceptable performance characteristics and potential consequences that do not disproportionately affect any one group of individuals. Performed By: #### 0 0071, 47658 #### [facility] [address] [place] [address], [facility] Glucose [Mass/Vol] 132 mg/dL High 70-100 [facility] Comment on above: Order Comment: No: D o not add to previous draw Performed By: #### 0 0071, 45749 #### [facility] [address] [place] [address], [place] Potassium [Moles/Vol] 4.4 mmol/L Normal 3.5-5.1 [facility] Comment on above: Order Comment: No: D o not add to previous draw Performed By: #### 0 0071, 05698 #### [facility] [address] [place] [address], [place] Sodium [Moles/Vol] 139 mmol/L Normal 136-145 [facility] Comment on above: Order Comment: No: D o not add to previous draw Performed By: #### 0 0071, 51537 #### [facility] [address] [place] [address], [place] Urea nitrogen [Mass/Vol] 24 mg/dL Normal 7-25 [facility] Comment on above: Order Comment: No: D o not add to previous draw Performed By: #### 0 0071, 12648 #### [facility] [address] [place] [address], [facility] CBC W/DIFFon 05-23-2022 ABS IMM GRANS 0.1 10*3/uL Normal 0.0-0.2 [facility] Comment on above: Order Comment: No: D o not add to previous draw Performed By: #### 5 0608 #### [facility] [address] [facility] [place] [address], [facility] ABS NEUTROPHILS 7.8 10*3/uL High 1.6-7.6 [facility] Comment on above: Order Comment: No: D o not add to previous draw Performed By: #### 5 0608 #### [facility] [address] [place] [address], [facility] Basophils (Bld) [#/Vol] 0.1 10*3/uL Normal 0.0-0.2 [facility] Comment on above: Order Comment: No: D o not add to previous draw Performed By: #### 5 0608 #### [facility] [address] [place] [address], [facility] Basophils/100 WBC (Bld) 0.5 % Normal 0.0-1.0 [facility] Comment on above: Order Comment: No: D o not add to previous draw Performed By: #### 5 0608 #### [facility] [address] [place] [address], [facility] Eosinophils (Bld) [#/Vol] 0.2 10*3/uL Normal 0.0-0.5 [facility] Comment on above: Order Comment: No: D o not add to previous draw Performed By: #### 5 0608 #### [facility] [address] [place] [address], [facility] Eosinophils/100 WBC (Bld) 1.5 % Normal 0.0-6.0 [facility] Comment on above: Order Comment: No: D o not add to previous draw Performed By: #### 5 0608 #### [facility] [address] [place] [address], [facility] Erythrocyte distribution width (RBC) [Ratio] 14.7 % Normal 11.5-15.0 [facility] Comment on above: Order Comment: No: D o not add to previous draw Performed By: #### 5 0608 #### [facility] [address] [place] [address], [facility] Hematocrit (Bld) [Volume fraction] 54.3 % High 39.0-50.0 [facility] Comment on above: Order Comment: No: D o not add to previous draw Performed By: #### 5 0608 #### [facility] [address] [place] [address], [facility] Hemoglobin (Bld) [Mass/Vol] 15.9 g/dL Normal 13.0-17.0 [facility] Comment on above: Order Comment: No: D o not add to previous draw Performed By: #### 5 [id number] #### [facility] [address] [place] [place] [address], [facility] IMMATURE GRANS 0.6 % Normal 0.0-1.0 [facility] Comment on above: Order Comment: No: D o not add to previous draw Performed By: #### 5 [id number] #### [facility] [address] [place] [address], [facility] Lymphocytes (Bld) [#/Vol] 2.1 10*3/uL Normal 1.2-4.0 The [facility] Comment on above: Order Comment: No: D o not add to previous draw Performed By: #### 5 [id number] #### [facility] [address] [place] [address], [facility] Lymphocytes/100 WBC (Bld) 18.7 % Low 20.0-45.0 The [facility] Comment on above: Order Comment: No: D o not add to previous draw Performed By: #### 5 [id number] #### [facility] [address] [place] [id number], [facility] MCH (RBC) [Entitic mass] 29.2 pg Normal 27.0-33.0 [facility] Comment on above: Order Comment: No: D o not add to previous draw Performed By: #### 5 [id number] #### [facility] [address] [place] [id number], [facility] MCHC (RBC) [Mass/Vol] 29.3 g/dL Low 32.0-35.0 The [facility] Comment on above: Order Comment: No: D o not add to previous draw Performed By: #### 5 [id number] #### [facility] [address] [place] [id number], [facility] MCV (RBC) [Entitic vol] 99.6 fL High 82.0-98.0 [facility] Comment on above: Order Comment: No: D o not add to previous draw Performed By: #### 5 [id number] #### [facility] [address] [place] [address], [facility] Monocytes (Bld) [#/Vol] 0.9 10*3/uL Normal 0.1-1.0 The [facility] Comment on above: Order Comment: No: D o not add to previous draw Performed By: #### 5 [id number] #### [facility] [address] [facility] [address], [facility] MONOS 7.7 % Normal 5.0-12.0 [facility] Comment on above: Order Comment: No: D o not add to previous draw Performed By: #### 5 [id number] #### [facility] [address] [address], [facility] Neutrophils/100 WBC (Bld) 71.0 % Normal 40.0-72.0 [facility] Comment on above: Order Comment: No: D o not add to previous draw Performed By: #### 5 [id number] #### [facility] [address] [place] [address], [facility] Nucleated RBC/100 WBC (Bld) [Ratio] 0 % Normal 0-0 [facility] Comment on above: Order Comment: No: D o not add to previous draw Performed By: #### 5 [id number] #### [facility] [address] [place] [address], [facility] PLAT CNT 209 10*3/uL Normal 150-400 [facility] Comment on above: Order Comment: No: D o not add to previous draw Performed By: #### 5 [id number] #### [facility] [address] [facility] [address], [facility] RBC (Bld) [#/Vol] 5.45 10*6/uL Normal 4.20-5.70 [facility] Comment on above: Order Comment: No: D o not add to previous draw Performed By: #### 5 [id number] #### [facility] [address] [place] [address], [facility] WBC (Bld) [#/Vol] 10.99 10*3/uL High 4.00-10.60 [facility] Comment on above: Order Comment: No: D o not add to previous draw Performed By: #### 5 [id number] #### [facility] [address] [place] [address], [facility] MAGNESIUM BLOODon 05-23-2022 Magnesium [Mass/Vol] 1.4 mg/dL Low 1.9-2.7 [facility] Comment on above: Order Comment: No: D o not add to previous draw Performed By: #### 0 [id number], [id number] #### [facility] [address] [facility] [place] [address], [facility] POC GLUCOSE LABon 05-23-2022 Glucose [Mass/Vol] 180 mg/dL High 70-100 The [facility] Comment on above: Performed By: #### 8 [id number] ####[facility] [facility] [place] [address], [place] Glucose [Mass/Vol] 125 mg/dL High 70-100 The [facility] Comment on above: Performed By: #### 0 0071 #### [facility] [address] [place] [address], [place] Glucose [Mass/Vol] 142 mg/dL High 70-100 The [facility] Comment on above: Performed By: #### 8 [id number] ####[facility] [place] [address], [place] Glucose [Mass/Vol] 123 mg/dL High 70-100 The [facility] Comment on above: Performed By: #### 8 [id number] ####[facility] [place] [address], [place] BASIC METABOLIC PANELon 08-0 -2021 Calcium [Mass/Vol] 9.1 mg/dL Normal 8.6-10.3 [facility] Comment on above: Order Comment: No: D o not add to previous draw Performed By: #### 5 [id number] #### [facility] [address] [place] [address], [place] Chloride [Moles/Vol] 94 mmol/L Low 98-107 The [facility] Comment on above: Order Comment: No: D o not add to previous draw Performed By: #### 5 [id number] #### [facility] [address] [place] [address], [place] CO2 [Moles/Vol] 37 mmol/L High 21-31 The [facility] Comment on above: Order Comment: No: D o not add to previous draw Performed By: #### 5 [id number] #### [facility] [address] [place] [address], [place] Creatinine [Mass/Vol] 0.52 mg/dL Low 0.70-1.30 The [facility] Comment on above: Order Comment: No: D o not add to previous draw Performed By: #### 5 [id number] #### [facility] [address] [place] [address], [facility] GFR/1.73 sq M.predicted among non-blacks MDRD (S/P/Bld) [Vol rate/Area] mL/min/{1.73_m2} Normal >60 The [facility] Comment on above: Order Comment: No: D o not add to previous draw Result Comment: The [facility]'s estimated glomerular filtration rate (eGFR) will no longer include consideration of race in its calculation. The [employer]'s eGFR Task Force developed new recommendations for the estimation of the glomerular filtration rate in the [place] They recommend immediate implementation of the new equation refit without the race variable in all laboratories because the calculation does not include race. In addition to not including race in the calculation and reporting, it included diversity in its development, and has acceptable performance characteristics and potential consequences that do not disproportionately affect any one group of individuals. Performed By: #### 5 [id number] #### [facility] [address] [place] [address], [facility] Glucose [Mass/Vol] 132 mg/dL High 70-100 The [facility] Comment on above: Order Comment: No: D o not add to previous draw Performed By: #### 5 0608 #### [facility] [address] [place] [address], [facility] Potassium [Moles/Vol] 4.8 mmol/L Normal 3.5-5.1 [facility] Comment on above: Order Comment: No: D o not add to previous draw Performed By: #### 5 0608 #### [facility] [address] [place] [address], [place] Sodium [Moles/Vol] 137 mmol/L Normal 136-145 [facility] Comment on above: Order Comment: No: D o not add to previous draw Performed By: #### 5 0608 #### [facility] [address] [place] [address], [place] Urea nitrogen [Mass/Vol] 19 mg/dL Normal 7-25 [facility] Comment on above: Order Comment: No: D o not add to previous draw Performed By: #### 5 0608 #### [facility] [address] [place] [address], [facility] CBC COMPLETE BLOOD COUNTon 0 05-22-2022 Erythrocyte distribution width (RBC) [Ratio] 14.8 % Normal 11.5-15.0 [facility] Comment on above: Order Comment: No: D o not add to previous draw Performed By: #### 5 [id number] #### [facility] [address] [place] [id number], [facility] Hematocrit (Bld) [Volume fraction] 48.5 % Normal 39.0-50.0 [facility] Comment on above: Order Comment: No: D o not add to previous draw Performed By: #### 5 0608 #### [facility] [address] [place] [address], [facility] Hemoglobin (Bld) [Mass/Vol] 14.5 g/dL Normal 13.0-17.0 [facility] Comment on above: Order Comment: No: D o not add to previous draw Performed By: #### 5 0608 #### [facility] [address] [place] [address], [facility] MCH (RBC) [Entitic mass] 30.0 pg Normal 27.0-33.0 [facility] Comment on above: Order Comment: No: D o not add to previous draw Performed By: #### 5 [id number] #### [facility] [address] [place] [id number], [facility] MCHC (RBC) [Mass/Vol] 29.9 g/dL Low 32.0-35.0 [facility] Comment on above: Order Comment: No: D o not add to previous draw Performed By: #### 5 [id number] #### [facility] [address] [place] [address], [facility] MCV (RBC) [Entitic vol] 100.2 fL High 82.0-98.0 [facility] Comment on above: Order Comment: No: D o not add to previous draw Performed By: #### 5 [id number] #### [facility] [address] [facility] [place] [address], [facility] Nucleated RBC/100 WBC (Bld) [Ratio] 0 % Normal 0-0 [facility] Comment on above: Order Comment: No: D o not add to previous draw Performed By: #### 5 [id number] #### [facility] [address] [facility] [place] [address], [facility] PLAT CNT 161 10*3/uL Normal 150-400 [facility] Comment on above: Order Comment: No: D o not add to previous draw Performed By: #### 5 0608 #### [facility] [address] [place] [address], [facility] RBC (Bld) [#/Vol] 4.84 10*6/uL Normal 4.20-5.70 [facility] Comment on above: Order Comment: No: D o not add to previous draw Performed By: #### 5 [id number] #### [facility] [address] [facility] [place] [address], [facility] WBC (Bld) [#/Vol] 7.91 10*3/uL Normal 4.00-10.60 [facility] Comment on above: Order Comment: No: D o not add to previous draw Performed By: #### 5 0608 #### [facility] [address] [place] [address], [facility] LIPID PROFILEon 05-22-2022 Cholesterol [Mass/Vol] 118 mg/dL Low 120-200 Th e [facility] Comment on above: Order Comment: No: D o not add to previous draw Result Comment: CHOL ESTEROL REFERENCE RANGE: 20 YEARS AND OLDER CARDIOVASCULAR RISK Less than 200 mg/dl Low Risk 200 to 239 mg/dl Borderline Risk 240 mg/dl and greater High Risk Performed By: #### 5 [id number] #### [facility] [address] [place] [address], [place] Cholesterol in HDL [Mass/Vol] 35 mg/dL Normal 23-92 [facility] Comment on above: Order Comment: No: D o not add to previous draw Result Comment: Slig ht variation in normal range could be due to gender and/or age. HDL CHOLESTEROL REFERENCE RANGE: 20 years and older Cardiovascular Risk > or =60 mg/dL Desirable 40 TO 59 mg/dL Low Risk <40 mg/dL High Risk Performed By: #### 5 [id number] #### [facility] [address] [place] [address], [facility] Cholesterol in LDL [Mass/Vol] 50 mg/dL Normal 0-130 The [facility] Comment on above: Order Comment: No: D o not add to previous draw Result Comment: LDL IS A CALCULATION LDL IS ONLY VALID IF THE TRIG IS LESS THAN 400. Performed By: #### 5 [id number] #### [facility] [address] [facility] [place] [address], [facility] Cholesterol.total/Chol esterol in HDL [Mass ratio] 3.4 {ratio} Normal .0-4.5 [facility] Comment on above: Order Comment: No: D o not add to previous draw Performed By: #### 5 [id number] #### [facility] [address] [place] [address], [place] NON-HDL CHOLESTEROL 83 mg/dL Normal The [facility] Comment on above: Order Comment: No: D o not add to previous draw Performed By: #### 5 0608 #### [facility] [address] [place] [address], [place] Triglyceride [Mass/Vol] 164 mg/dL High 40-149 The [facility] Comment on above: Order Comment: No: D o not add to previous draw Result Comment: TRIG LYCERIDE REFERENCE RANGE: 20 YEARS AND OLDER CARDIOVASCULAR RISK LESS THAN 150 mg/dl LOW RISK 150 TO 199 mg/dl BORDERLINE RISK 200 mg/dl AND GREATER HIGH RISK Performed By: #### 5 0608 #### [facility] [address] [place] [address], [place] VLDL CHOL 33 mg/dL Normal 0-40 [facility] Comment on above: Order Comment: No: D o not add to previous draw Performed By: #### 5 0608 #### [facility] [address] [place] [address], [place] MAGNESIUM BLOODon 05-22-2022 Magnesium [Mass/Vol] 1.2 mg/dL Critically low 1.9-2.7 [facility] Comment on above: Order Comment: No: D o not add to previous draw Performed By: #### 5 0608 #### [facility] [address] [place] [address], [place] PHOSPHORUS BLOODon 2 Phosphate [Mass/Vol] 3.4 mg/dL Normal 2.5-5.0 [facility] Comment on above: Order Comment: No: D o not add to previous draw Performed By: #### 5 0608 #### [facility] [address] [place] [address], [place] POC GLUCOSE LABon 05-22-2022 Glucose [Mass/Vol] 240 mg/dL High 70-100 [facility] Comment on above: Performed By: #### 0 0071 #### [facility] [address] [place] [address], [place] Glucose [Mass/Vol] 153 mg/dL High 70-100 [facility] Comment on above: Performed By: #### 8 [id number] ####[facility] [place] [address], [place] Glucose [Mass/Vol] 214 mg/dL High 70-100 [facility] Comment on above: Performed By: #### 0 0071 #### [facility] [address] [place] [address], [place] Glucose [Mass/Vol] 136 mg/dL High 70-100 [facility] Comment on above: Performed By: #### 8 [id number] ####[facility] [facility] BNP (B-TYPE NATRIURETIC PEPT JAI)on 05-21-2022 Natriuretic peptide B (Bld) [Mass/Vol] 52 pg/mL Normal 0-100 [facility] Comment on above: Order Comment: No: D o not add to previous draw Result Comment: Give n the appropriate clinical setting a BNP result of >100 pg/mL indicates congestive heart failure. Performed By: #### 5 [id number] #### [facility] [address] [facility]. [address] CBC AUTO DIFFon 05-21-2022 BASO # 0.0 103/ul Normal 0.0-0.1 [facility] Comment on above: Performed By: #### P OCGLUC #### [facility] [address] [place] [address] [address] Raymond Walsh Basophils/100 WBC (Bld) 0.4 % Normal 0.2-2.0 [facility] Comment on above: Performed By: #### P OCGLUC #### [facility] [address] [place] [address] [address] Raymond Walsh EO # 0.1 103/ul Normal 0.0-0.7 [facility] Comment on above: Performed By: #### P OCGLUC #### [facility] [address] [place] [address] [address] Raymond Walsh Eosinophils/100 WBC (Bld) 1.5 % Normal 0.9-7.0 [facility] Comment on above: Performed By: #### P OCGLUC #### [facility] [address] [address] [address] Raymond Walsh Erythrocyte distribution width (RBC) [Ratio] 14.6 % Normal 11.0-15.0 [facility] Comment on above: Performed By: #### P OCGLUC #### [facility] [address] [address] [address] Raymond Walsh Hematocrit (Bld) [Volume fraction] 47.6 % Normal 42.0-54.0 [facility] Comment on above: Performed By: #### P OCGLUC #### [facility] [address] [address] [address] Raymond Walsh Hemoglobin (Bld) [Mass/Vol] 14.2 g/dL Normal 14.0-18.0 [facility] Comment on above: Performed By: #### P OCGLUC #### [facility] [address] [place] [address] Dr. Raymond Walsh IG # 0.05 10e3/ul Critically high 0.00-0.03 [facility] Comment on above: Performed By: #### P OCGLUC #### [facility] [address] [place] [address] Dr. Raymond Walsh IG % 0.6 % Critically high 0.0-0.5 [facility] Comment on above: Performed By: #### P OCGLUC #### [facility] [address] [place] [address] Dr. Raymond Walsh LYMPH # 1.6 103/ul Normal 1.2-3.8 [facility] Comment on above: Performed By: #### P OCGLUC #### [facility] [address] [place] [address] Dr. Raymond Walhs Lymphocytes/100 WBC (Bld) 19.9 % Critically low 20.5-60.0 [facility] Comment on above: Performed By: #### P OCGLUC #### [facility] [address] [place] [address] Dr. Raymond Walsh MANUAL DIFF REQ NO Normal [facility] Comment on above: Performed By: #### P OCGLUC #### [facility] [address] [place] [address] [address] Raymond Walsh MCH (RBC) [Entitic mass] 29.6 pg Normal 25.9-34.0 [facility] Comment on above: Performed By: #### P OCGLUC #### [facility] [address] [place] [address] Dr. Raymond Walsh MCHC (RBC) [Mass/Vol] 29.8 g/dL Critically low 29.9-35.2 [facility] Comment on above: Performed By: #### P OCGLUC #### [facility] [address] [place] [address] [address] Raymond Walsh MCV (RBC) [Entitic vol] 99.4 fL Critically high 80.0-94.0 [facility] Comment on above: Performed By: #### P OCGLUC #### [facility] [address] [place] [address] Dr. Raymond Walsh MONO # 0.7 103/ul Normal 0.3-0.8 [facility] Comment on above: Performed By: #### P OCGLUC #### [facility] [address] [place] [address] Dr. Raymond Walsh Monocytes/100 WBC (Bld) 8.1 % Normal 1.7-12.0 [facility] Comment on above: Performed By: #### P OCGLUC #### [facility] [address] [place] [address] Dr. Raymond Walsh NEUT # 5.6 103/ul Normal 1.4-6.5 [facility] Comment on above: Performed By: #### P OCGLUC #### [facility] [address] [place] [address] Dr. Raymond Walsh Neutrophils/100 WBC (Bld) 69.5 % Normal 43.0-75.0 [facility] Comment on above: Performed By: #### P OCGLUC #### [facility] [address] [place] [address] Dr. Raymond Walsh Platelet mean volume (Bld) [Entitic vol] 10.5 fL Normal 9.5-13.5 [facility] Comment on above: Performed By: #### P OCGLUC #### [facility] [address] [place] [address] Dr. Raymond Walsh PLT 173 103/ul Normal 150-450 [facility] Comment on above: Performed By: #### P OCGLUC #### [facility] [address] [place] [address] Dr. Raymond Walsh RBC 4.79 106/ul Normal 4.70-6.10 [facility] Comment on above: Performed By: #### P OCGLUC #### [facility] [address] [place], [place] [address] Dr. Raymond Walsh WBC 8.0 103/ul Normal 4.0-11.0 [facility] Comment on above: Performed By: #### P OCGLUC #### [facility] [address] [place], [place] [address] Dr. Raymond Walsh FREE T4on 05-21-2022 Free T4 [Mass/Vol] 1.01 ng/dL Normal 0.71-1.85 [facility] Comment on above: Order Comment: If no t done in ED No: Do not add to previous draw Performed By: #### 4 [id number], [id number] #### [facility] [address] [facility] [place] [place] [address], [facility] HEMOGLOBIN A1Con 05-21-2022 Glucose [Moles/Vol] 194 mmol/L Normal [facility] Comment on above: Order Comment: If no t done in EDNo: Do not add to previous draw Performed By: #### 8 [id number], 70051 ####[facility] [facility] [place] [address], [facility] HbA1c (Bld) [Mass fraction] 8.4 % High 4.0-6.0 [facility] Comment on above: Order Comment: If no t done in EDNo: Do not add to previous draw Performed By: #### 8 [id number], [id number] ####[facility] [facility] [place] [address], [facility] POC GLUCOSE LABon 05-21-2022 Glucose [Mass/Vol] 194 mg/dL High 70-100 [facility] Comment on above: Performed By: #### 8 [id number] ####[facility] [facility] [place] [address], [facility] Glucose [Mass/Vol] 142 mg/dL High 70-100 [facility] Comment on above: Performed By: #### 0 0071 #### [facility] [address] [facility]. [address] POC SARS COV2 ANTIGEN NEGATI VEon 05-21-2022 POC SARS COV2 ANTIGEN NEG Negative Normal NEGATIVE [facility] Comment on above: Result Comment: Nega tive results should be treated as presumptive and confirmation with a molecular assay, if necessary, for patient management, may be performed. Negative results do not rule out SARS-CoV-2 infection and not should be used as the sole basis for treatment or patient management decisions, including infection control decisions. Negative results should be considered in the context of a patient's recent exposures, history, and the presence of clinical signs and symptoms consistent with COVID-19. The [employer] COVID-19 Antigen Rapid Test Cassette is a rapid chromatographic immunoassay intended for the qualitative detection of the nucleocapsid protein antigen from SARS-CoV-2 in direct nasopharyngeal swab (CRYSTAL MOUNTER) specimens from individuals who are suspected of COVID-19 by their healthcare provider within the first six days of symptom onset. Testing is limited to laboratories certified under the Clinical Laboratory Improvement Amendments of 1988 (CLIA), 42 U.S.C. ???263a, that meet the requirements to perform moderate complexity, high complexity, or waived tests. This test is authorized for use at the Point of Care (POC), i.e., in patient care settings operating under a CLIA Certificate of Waiver, Certificate of Compliance, or Certificate of Accreditation. Performed By: #### 5 [id number] #### [facility] [address] [facility]. [place] [id number], [facility] PROF 14(COMP METB)on 022 Albumin [Mass/Vol] 3.0 g/dL Critically low 3.4-5.0 Th e [facility] Comment on above: Performed By: #### C VDTBH #### [facility] [address] [place] [address] Dr. Raymond Walsh Albumin/Globulin [Mass ratio] 0.9 {ratio} Normal [facility] Comment on above: Performed By: #### C VDTBH #### [facility] [address] [place], [place] [address] Dr. Raymond Walsh ALP [Catalytic activity/Vol] 77 U/L Normal 46-116 [facility] Comment on above: Performed By: #### C VDTBH #### [facility] [address] [address] [address] Raymond Walsh ALT [Catalytic activity/Vol] 21 U/L Normal 16-63 [facility] Comment on above: Performed By: #### C VDTBH #### [facility] [address] [address] [address] Raymond Walsh Anion gap [Moles/Vol] 7.4 mmol/L Normal [facility] Comment on above: Performed By: #### C VDTBH #### [facility] [address] [address] [address] Raymond Walsh AST [Catalytic activity/Vol] 15 U/L Normal 15-37 [facility] Comment on above: Performed By: #### C VDTBH #### [facility] [address] [address] [address] Raymond Walsh Bilirubin [Mass/Vol] 0.6 mg/dL Normal 0.2-1.0 [facility] Comment on above: Performed By: #### C VDTBH #### [facility] [address] [address] [address] Raymond Walsh Calcium [Mass/Vol] 9.1 mg/dL Normal 8.5-10.1 [facility] Comment on above: Performed By: #### C VDTBH #### [facility] [address] [address] [address] Raymond Walsh Chloride [Moles/Vol] 100 mmol/L Normal 98-107 [facility] Comment on above: Performed By: #### C VDTBH #### [facility] [address] [address] [address] Raymond Walsh CO2 [Moles/Vol] 39.5 mmol/L Critically high 21.0-32.0 [facility] Comment on above: Performed By: #### C VDTBH #### [facility] [address] [address] [address] Raymond Walsh Creatinine [Mass/Vol] 0.55 mg/dL Critically low 0.70-1.30 [facility] Comment on above: Performed By: #### C VDTBH #### [facility] [address] [address] [address] Raymond Walsh EGFR-AF SAMOAN >60 Normal >=60 [facility] Comment on above: Performed By: #### C VDTBH #### [facility] [address] [address] [address] Raymond Walsh EGFR-NON AF SAMOAN >60 Normal >=60 [facility] Comment on above: Performed By: #### C VDTBH #### [facility] [address] [address] [address] Raymond Walsh Globulin (S) [Mass/Vol] 3.2 g/dL Normal [facility] Comment on above: Performed By: #### C VDTBH #### [facility] [address] [address] [address] Raymond Walsh Glucose [Mass/Vol] 110 mg/dL Critically high 74-106 [facility] Comment on above: Performed By: #### C VDTBH #### [facility] [address] [address] [address] Raymond Walsh Potassium [Moles/Vol] 4.9 mmol/L Normal 3.5-5.1 [facility] Comment on above: Performed By: #### C VDTBH #### [facility] [address] [address] [address] Raymond Walsh Protein [Mass/Vol] 6.2 g/dL Critically low 6.4-8.2 [facility] Comment on above: Performed By: #### C VDTBH #### [facility] [address] [address] [address] Raymond Walsh Sodium [Moles/Vol] 142 mmol/L Normal 136-145 [facility] Comment on above: Performed By: #### C VDTBH #### [facility] [address] [address] [address] Raymond Walsh Urea nitrogen [Mass/Vol] 25.0 mg/dL Critically high 7.0-18.0 [facility] Comment on above: Performed By: #### C VDTBH #### [facility] [address] [place] [address] Dr. Raymond Walsh Urea nitrogen/Creatinine [Mass ratio] 45.5 mg/mg Normal [facility] Comment on above: Performed By: #### C VDTBH #### [facility] [address] [place] [address] Dr. Raymond Walsh TSH3on 05-21-2022 TSH 3RD GENERATION 2.89 uIU/mL Normal 0.34-5.60 [facility] Comment on above: Order Comment: If no t done in ED No: Do not add to previous draw Performed By: #### 4 [id number] #### [facility] [address] [place] [address], [facility] CBC AUTO DIFFon 05-20-2022 BASO # 0.0 103/ul Normal 0.0-0.1 [facility] Comment on above: Performed By: #### S PUTGS #### [facility] [address] [place] [address] Dr. Raymond Walsh Basophils/100 WBC (Bld) 0.2 % Normal 0.2-2.0 [facility] Comment on above: Performed By: #### S PUTGS #### [facility] [address] [place] [address] Dr. Raymond Walsh EO # 0.2 103/ul Normal 0.0-0.7 [facility] Comment on above: Performed By: #### S PUTGS #### [facility] [address] [place] [address] Dr. Raymond Walsh Eosinophils/100 WBC (Bld) 1.5 % Normal 0.9-7.0 [facility] Comment on above: Performed By: #### S PUTGS #### [facility] [address] [place] [address] Dr. Raymond Walsh Erythrocyte distribution width (RBC) [Ratio] 14.8 % Normal 11.0-15.0 [facility] Comment on above: Performed By: #### S PUTGS #### [facility] [address] [address] [address] Raymond Walsh Hematocrit (Bld) [Volume fraction] 46.5 % Normal 42.0-54.0 [facility] Comment on above: Performed By: #### S PUTGS #### [facility] [address] [address] [address] Raymond Walsh Hemoglobin (Bld) [Mass/Vol] 13.9 g/dL Critically low 14.0-18.0 [facility] Comment on above: Performed By: #### S PUTGS #### [facility] [address] [address] [address] Raymond Walsh IG # 0.05 10e3/ul Critically high 0.00-0.03 [facility] Comment on above: Performed By: #### S PUTGS #### [facility] [address] [place] [address] Dr. Raymond Walsh IG % 0.5 % Normal 0.0-0.5 [facility] Comment on above: Performed By: #### S PUTGS #### [facility] [address] [address] [address] Raymond Walsh LYMPH # 1.6 103/ul Normal 1.2-3.8 [facility] Comment on above: Performed By: #### S PUTGS #### [facility] [address] [place] [address] Dr. Raymond Walsh Lymphocytes/100 WBC (Bld) 16.5 % Critically low 20.5-60.0 [facility] Comment on above: Performed By: #### S PUTGS #### [facility] [address] [address] [address] Raymond Wlash MANUAL DIFF REQ NO Normal [facility] Comment on above: Performed By: #### S PUTGS #### [facility] [address] [place] [address] Dr. Raymond Walsh MCH (RBC) [Entitic mass] 29.6 pg Normal 25.9-34.0 [facility] Comment on above: Performed By: #### S PUTGS #### [facility] [address] [address] [address] Raymond Walsh MCHC (RBC) [Mass/Vol] 29.9 g/dL Normal 29.9-35.2 [facility] Comment on above: Performed By: #### S PUTGS #### [facility] [address] [address] [address] Raymond Walsh MCV (RBC) [Entitic vol] 99.1 fL Critically high 80.0-94.0 [facility] Comment on above: Performed By: #### S PUTGS #### [facility] [address] [address] [address] Raymond Walsh MONO # 0.7 103/ul Normal 0.3-0.8 [facility] Comment on above: Performed By: #### S PUTGS #### [facility] [address] [place] [address] Dr. Raymond Walsh Monocytes/100 WBC (Bld) 6.9 % Normal 1.7-12.0 [facility] Comment on above: Performed By: #### S PUTGS #### [facility] [address] [place] [address] Dr. Raymond Walsh NEUT # 7.2 103/ul Critically high 1.4-6.5 [facility] Comment on above: Performed By: #### S PUTGS #### [facility] [address] [place] [address] Dr. Raymond Walsh Neutrophils/100 WBC (Bld) 74.4 % Normal 43.0-75.0 [facility] Comment on above: Performed By: #### S PUTGS #### [facility] [address] [address] [address] Raymond Walsh Platelet mean volume (Bld) [Entitic vol] 10.2 fL Normal 9.5-13.5 [facility] Comment on above: Performed By: #### S PUTGS #### [facility] [address] [address] [address] Raymond Walsh PLT 170 103/ul Normal 150-450 [facility] Comment on above: Performed By: #### S PUTGS #### [facility] [address] [address] [address] Raymond Walsh RBC 4.69 106/ul Critically low 4.70-6.[address] [facility] Comment on above: Performed By: #### S PUTGS #### [facility] [address] [address] [address] Raymond Walsh WBC 9.7 103/ul Normal 4.0-11.0 [facility] Comment on above: Performed By: #### S PUTGS #### [facility] [address] [address] [address] Raymond Walsh LAB TESTINGon 05-20-2022 RECV HEADER SEE SCANNED REPORT I N HPF Normal [facility] Comment on above: Performed By: #### C BC #### [facility] [address] [address] [address] Raymond Walsh REV FROM REF LAB 05/20/22 [facility] Comment on above: Performed By: #### C BC #### [facility] [address] [address] [address] Raymond Walsh SENT TO REF LAB 05/20/22 Normal [facility] Comment on above: Performed By: #### C BC #### [facility] [address] [address] [address] Raymond Walsh No Panel InformationOrdered By: George Nieto on 05-20-2022 D-Dimer Quantitative (PE/DVT) < 200 ng/mL 0-243 [facility] Comment on above: The reference range for D-dimer is <243 ng/mL D-dimer units. D-dimer results must be used in conjunction with a clinical pretest probability (PTP) assessment model for deep vein thrombosis (DVT) and pulmonary embolism (PE). Results <230 ng/mL d-dimer units can be used as a negative predictor in patients with low or moderate probability for DVT/PE. Results above the exclusion threshold of 230 ng/ml D-dimer units for DVT/PE may indicate the need for further diagnostic testing. D-Dimer can be increased in hospitalized patients due to co-morbid conditions. POINT OF CARE GLUCOSEon - Glucose [Mass/Vol] 238 mg/dL Critically high 74-106 [facility] Comment on above: Performed By: #### P OCGLUC #### [facility] [address] [place] [address] Dr. Raymond Walsh Glucose [Mass/Vol] 125 mg/dL Critically high -106 [facility] Comment on above: Performed By: #### C MP, BNP #### [facility] [address] [address] [address] Raymond Walsh Glucose [Mass/Vol] 184 mg/dL Critically high -106 [facility] Comment on above: Performed By: #### P OCGLUC #### [facility] [address] [place] [address] Dr. Raymond Walsh Glucose [Mass/Vol] 108 mg/dL Critically high -106 [facility] Comment on above: Performed By: #### P OCGLUC #### [facility] [address] [place] [address] Dr. Raymond Walsh Glucose [Mass/Vol] 58 mg/dL Critically low 74-106 [facility] Comment on above: Performed By: #### S PUTGS #### [facility] [address] [place] [address] Dr. Raymond Walsh PROF 14(COMP METB)on 022 Albumin [Mass/Vol] 2.9 g/dL Critically low 3.4-5.0 [facility] Comment on above: Performed By: #### C MP #### [facility] [address] [place] [address] Dr. Raymond Walsh Albumin/Globulin [Mass ratio] 0.9 {ratio} Normal [facility] Comment on above: Performed By: #### C MP #### [facility] [address] [place] [address] Dr. Raymond Walsh ALP [Catalytic activity/Vol] 76 U/L Normal 46-116 [facility] Comment on above: Performed By: #### C MP #### [facility] [address] [place] [address] Dr. Raymond Walsh ALT [Catalytic activity/Vol] 17 U/L Normal 16-63 [facility] Comment on above: Performed By: #### C MP #### [facility] [address] [address] [address] Raymond Walsh Anion gap [Moles/Vol] 6.1 mmol/L Normal [facility] Comment on above: Performed By: #### C MP #### [facility] [address] [address] [address] Raymond Walsh AST [Catalytic activity/Vol] 15 U/L Normal 15-37 [facility] Comment on above: Performed By: #### C MP #### [facility] [address] [address] [address] Raymond Walsh Bilirubin [Mass/Vol] 0.6 mg/dL Normal 0.2-1.0 [facility] Comment on above: Performed By: #### C MP #### [facility] [address] [address] [address] Raymond Walsh Calcium [Mass/Vol] 9.3 mg/dL Normal 8.5-10.1 [facility] Comment on above: Performed By: #### C MP #### [facility] [address] [address] [address] Raymond Walsh Chloride [Moles/Vol] 99 mmol/L Normal 98-107 [facility] Comment on above: Performed By: #### C MP #### [facility] [address] [address] [address] Raymond Walsh CO2 [Moles/Vol] 36.4 mmol/L Critically high 21.0-32.0 [facility] Comment on above: Performed By: #### C MP #### [facility] [address] [address] [address] Raymond Walsh Creatinine [Mass/Vol] 0.61 mg/dL Critically low 0.70-1.30 [facility] Comment on above: Performed By: #### C MP #### [facility] [address] [address] [address] Raymond Walsh EGFR-AF SAMOAN >60 Normal >=60 [facility] Comment on above: Performed By: #### C MP #### [facility] [address] [address] [address] Raymond Walsh EGFR-NON AF SAMOAN >60 Normal >=60 [facility] Comment on above: Performed By: #### C MP #### [facility] [address] [address] [address] Raymond Walsh Globulin (S) [Mass/Vol] 3.1 g/dL Normal [facility] Comment on above: Performed By: #### C MP #### [facility] [address] [address] [address] Raymond Walsh Glucose [Mass/Vol] 62 mg/dL Critically low 74-106 [facility] Comment on above: Performed By: #### C MP #### [facility] [address] [place] [address] Dr. Raymond Walsh Potassium [Moles/Vol] 4.5 mmol/L Normal 3.5-5.1 [facility] Comment on above: Performed By: #### C MP #### [facility] [address] [place] [address] Dr. Raymond Walsh Protein [Mass/Vol] 6.0 g/dL Critically low 6.4-8.2 [facility] Comment on above: Performed By: #### C MP #### [facility] [address] [address] [address] Raymond Walsh Sodium [Moles/Vol] 137 mmol/L Normal 136-145 [facility] Comment on above: Performed By: #### C MP #### [facility] [address] [address] [address] Raymond Walsh Urea nitrogen [Mass/Vol] 34.0 mg/dL Critically high 7.0-18.0 [facility] Comment on above: Performed By: #### C MP #### [facility] [address] [place] [address] Dr. Raymond Walsh Urea nitrogen/Creatinine [Mass ratio] 55.7 mg/mg Normal [facility] Comment on above: Performed By: #### C MP #### [facility] [address] [address] [address] Raymond Walsh XR CHEST 2 Von 05-20-2022 XR CHEST 2 V EXAMINATION: XR CHES T 2 V HISTORY: SHORTNESS OF BREATH COMPARISON: XR chest 05/17/2022, 04/05/2018 FINDINGS: LUNGS: Stable elevation of right hemidiaphragm. No convincing infiltrates. VASCULATURE: No increased pulmonary vasculature. PLEURA: No pneumothorax, effusion, or pleural thickening. CARDIAC: No cardiomegaly or cardiac silhouette abnormality. MEDIASTINUM: No visible mass or adenopathy. BONES: No fracture or visible bone lesion. OTHER: Negative. IMPRESSION: 1. No acute cardiopulmonary process. 2. Stable, chronic elevation of right hemidiaphragm. Electronically authenticated by: MARCO CHA Date: 2022-05-20 09:59 Normal [facility] BNPon 05-19-2022 Natriuretic peptide B (Bld) [Mass/Vol] 485.0 pg/mL Normal <=900.0 [facility] Comment on above: Performed By: #### S PUTGS #### [facility] [address] [place] [address] Dr. Raymond Walsh CBC AUTO DIFFon 05-19-2022 BASO # 0.0 103/ul Normal 0.0-0.1 [facility] Comment on above: Performed By: #### C BC #### [facility] [address] [place] [address] Dr. Raymond Walsh Basophils/100 WBC (Bld) 0.3 % Normal 0.2-2.0 [facility] Comment on above: Performed By: #### C BC #### [facility] [address] [place] [address] Dr. Raymnod Walsh EO # 0.2 103/ul Normal 0.0-0.7 [facility] Comment on above: Performed By: #### C BC #### [facility] [address] [place] [address] Dr. Raymond Walsh Eosinophils/100 WBC (Bld) 1.6 % Normal 0.9-7.0 [facility] Comment on above: Performed By: #### C BC #### [facility] [address] [place] [address] Dr. Raymond Walsh Erythrocyte distribution width (RBC) [Ratio] 14.7 % Normal 11.0-15.0 [facility] Comment on above: Performed By: #### C BC #### [facility] [address] [place] [address] Dr. Raymond Walsh Hematocrit (Bld) [Volume fraction] 53.6 % Normal 42.0-54.0 [facility] Comment on above: Performed By: #### C BC #### [facility] [address] [place] [address] Dr. Raymond Walsh Hemoglobin (Bld) [Mass/Vol] 15.4 g/dL Normal 14.0-18.0 [facility] Comment on above: Performed By: #### C BC #### [facility] [address] [place] [address] Dr. Raymond Walsh IG # 0.07 10e3/ul Critically high 0.00-0.03 [facility] Comment on above: Performed By: #### C BC #### [facility] [address] [place] [address] Dr. Raymond Walsh IG % 0.6 % Critically high 0.0-0.5 [facility] Comment on above: Performed By: #### C BC #### [facility] [address] [place] [address] Dr. Raymond Walsh LYMPH # 1.5 103/ul Normal 1.2-3.8 [facility] Comment on above: Performed By: #### C BC #### [facility] [address] [place] [address] Dr. Raymond Walsh Lymphocytes/100 WBC (Bld) 13.9 % Critically low 20.5-60.0 [facility] Comment on above: Performed By: #### C BC #### [facility] [address] [place] [address] Dr. Raymond Walsh MANUAL DIFF REQ NO Normal [facility] Comment on above: Performed By: #### C BC #### [facility] [address] [place] [address] Dr. Raymond Walsh MCH (RBC) [Entitic mass] 29.4 pg Normal 25.9-34.0 [facility] Comment on above: Performed By: #### C BC #### [facility] [address] [place] [address] Dr. Raymond Walsh MCHC (RBC) [Mass/Vol] 28.7 g/dL Critically low 29.9-35.2 [facility] Comment on above: Performed By: #### C BC #### [facility] [address] [address] [address] Raymond Walsh MCV (RBC) [Entitic vol] 102.3 fL Critically high 80.0-94.0 [facility] Comment on above: Performed By: #### C BC #### [facility] [address] [place] [address] Dr. Raymond Walsh MONO # 0.8 103/ul Normal 0.3-0.8 [facility] Comment on above: Performed By: #### C BC #### [facility] [address] [place] [address] Dr. Raymond Walsh Monocytes/100 WBC (Bld) 6.9 % Normal 1.7-12.0 [facility] Comment on above: Performed By: #### C BC #### [facility] [address] [place] [address] Dr. Raymond Walsh NEUT # 8.4 103/ul Critically high 1.4-6.[address] [facility] Comment on above: Performed By: #### C BC #### [facility] [address] [place] [address] Dr. Raymond Walsh Neutrophils/100 WBC (Bld) 76.7 % Critically high 43.0-75.0 [facility] Comment on above: Performed By: #### C BC #### [facility] [address] [place] [address] Dr. Raymond Walsh Platelet mean volume (Bld) [Entitic vol] 10.3 fL Normal 9.5-13.5 [facility] Comment on above: Performed By: #### C BC #### [facility] [address] [place] [address] Dr. Raymond Walsh PLT 206 103/ul Normal 150-450 [facility] Comment on above: Performed By: #### C BC #### [facility] [address] [address] [address] Raymond Walsh RBC 5.24 106/ul Normal 4.70-6.10 [facility] Comment on above: Performed By: #### C BC #### [facility] [address] [address] [address] Raymond Walsh WBC 11.0 103/ul Normal 4.0-11.0 [facility] Comment on above: Performed By: #### C BC #### [facility] [address] [place] [address] Dr. Raymond Walsh POINT OF CARE GLUCOSEon Glucose [Mass/Vol] 127 mg/dL Critically high 74-106 [facility] Comment on above: Performed By: #### S PUTGS #### [facility] [address] [place] [address] Dr. Raymond Walsh Glucose [Mass/Vol] 89 mg/dL Normal 74-106 [facility] Comment on above: Performed By: #### C VDTB #### [facility] [address] [place] [address] Dr. Raymond Walsh Glucose [Mass/Vol] 171 mg/dL Critically high 74-106 [facility] Comment on above: Performed By: #### C MP, BNP #### [facility] [address] [place] [address] Dr. Raymond Walsh PROF 14(COMP METB)on 022 Albumin [Mass/Vol] 3.3 g/dL Critically low 3.4-5.0 [facility] Comment on above: Performed By: #### S PUTGS #### [facility] [address] [place] [address] Dr. Raymond Walsh Albumin/Globulin [Mass ratio] 0.9 {ratio} Normal [facility] Comment on above: Performed By: #### S PUTGS #### [facility] [address] [place] [address] Dr. Raymond Walsh ALP [Catalytic activity/Vol] 80 U/L Normal 46-116 [facility] Comment on above: Performed By: #### S PUTGS #### [facility] [address] [place] [address] Dr. Raymond Walsh ALT [Catalytic activity/Vol] 25 U/L Normal 16-63 [facility] Comment on above: Performed By: #### S PUTGS #### [facility] [address] [address] [address] Raymond Walsh Anion gap [Moles/Vol] 6.0 mmol/L Normal [facility] Comment on above: Performed By: #### S PUTGS #### [facility] [address] [place] [address] Dr. Raymond Walsh AST [Catalytic activity/Vol] 17 U/L Normal 15-37 [facility] Comment on above: Performed By: #### S PUTGS #### [facility] [address] [place] [address] Dr. Raymond Walsh Bilirubin [Mass/Vol] 0.5 mg/dL Normal 0.2-1.0 [facility] Comment on above: Performed By: #### S PUTGS #### [facility] [address] [place] [address] Dr. Raymond Walsh Calcium [Mass/Vol] 9.3 mg/dL Normal 8.5-10.1 [facility] Comment on above: Performed By: #### S PUTGS #### [facility] [address] [place] [address] Dr. Raymond Walsh Chloride [Moles/Vol] 97 mmol/L Critically low 98-107 [facility] Comment on above: Performed By: #### S PUTGS #### [facility] [address] [place] [address] Dr. Raymond Walsh CO2 [Moles/Vol] 42.0 mmol/L Critically high 21.0-32.0 [facility] Comment on above: Performed By: #### S PUTGS #### [facility] Laboratory [address] [place] [address] Dr. Raymond Walsh Creatinine [Mass/Vol] 0.88 mg/dL Normal 0.70-1.30 [facility] Comment on above: Performed By: #### S PUTGS #### [facility] [address] [address] [address] Raymond Walsh EGFR-AF SAMOAN >60 Normal >=60 [facility] Comment on above: Performed By: #### S PUTGS #### [facility] [address] [address] [address] Raymond Walsh EGFR-NON AF SAMOAN >60 Normal >=60 [facility] Comment on above: Performed By: #### S PUTGS #### [facility] [address] [address] [address] Raymond Walsh Globulin (S) [Mass/Vol] 3.6 g/dL Normal [facility] Comment on above: Performed By: #### S PUTGS #### [facility] [address] [address] [address] Raymond Walsh Glucose [Mass/Vol] 107 mg/dL Critically high 74-106 [facility] Comment on above: Performed By: #### S PUTGS #### [facility] [address] [address] [address] Raymond Walsh Potassium [Moles/Vol] 5.0 mmol/L Normal 3.5-5.1 [facility] Comment on above: Performed By: #### S PUTGS #### [facility] [address] [address] [address] Raymond Walsh Protein [Mass/Vol] 6.9 g/dL Normal 6.4-8.2 [facility] Comment on above: Performed By: #### S PUTGS #### [facility] [address] [address] [address] Raymond Walsh Sodium [Moles/Vol] 140 mmol/L Normal 136-145 [facility] Comment on above: Performed By: #### S PUTGS #### [facility] [address] [address] [address] Raymond Walsh Urea nitrogen [Mass/Vol] 41.0 mg/dL Critically high 7.0-18.0 [facility] Comment on above: Performed By: #### S PUTGS #### [facility] [address] [place] [address] Dr. Raymond Walsh Urea nitrogen/Creatinine [Mass ratio] 46.6 mg/mg Normal [facility] Comment on above: Performed By: #### S PUTGS #### [facility] [address] [place] [address] Dr. Raymond Walsh CBC AUTO DIFFon 05-18-2022 BASO # 0.0 103/ul Normal 0.0-0.1 [facility] Comment on above: Performed By: #### C BC #### [facility] [address] [place] [address] Dr. Raymond Walsh Basophils/100 WBC (Bld) 0.4 % Normal 0.2-2.0 [facility] Comment on above: Performed By: #### C BC #### [facility] [address] [place] [address] Dr. Raymond Walsh EO # 0.2 103/ul Normal 0.0-0.7 [facility] Comment on above: Performed By: #### C BC #### [facility] [address] [place] [address] Dr. Raymond Walsh Eosinophils/100 WBC (Bld) 1.6 % Normal 0.9-7.0 [facility] Comment on above: Performed By: #### C BC #### [facility] [address] [place] [address] Dr. Raymond Walsh Erythrocyte distribution width (RBC) [Ratio] 15.3 % Critically high 11.0-15.0 [facility] Comment on above: Performed By: #### C BC #### [facility] [address] [place] [address] Dr. Raymond Walsh Hematocrit (Bld) [Volume fraction] 56.1 % Critically high 42.0-54.0 [facility] Comment on above: Performed By: #### C BC #### [facility] [address] [place] [address] Dr. Raymond Walsh Hemoglobin (Bld) [Mass/Vol] 16.4 g/dL Normal 14.0-18.0 [facility] Comment on above: Performed By: #### C BC #### [facility] [address] [place] [address] Dr. Raymond Walsh IG # 0.06 10e3/ul Critically high 0.00-0.03 [facility] Comment on above: Performed By: #### C BC #### [facility] [address] [place] [address] Dr. Raymond Walsh IG % 0.6 % Critically high 0.0-0.5 [facility] Comment on above: Performed By: #### C BC #### [facility] [address] [place] [address] Dr. Raymond Walsh LYMPH # 1.8 103/ul Normal 1.2-3.8 [facility] Comment on above: Performed By: #### C BC #### [facility] [address] [place] [address] Dr. Raymond Walsh Lymphocytes/100 WBC (Bld) 16.3 % Critically low 20.5-60.0 [facility] Comment on above: Performed By: #### C BC #### [facility] [address] [place] [address] Dr. Raymond Walsh MANUAL DIFF REQ NO Normal [facility] Comment on above: Performed By: #### C BC #### [facility] [address] [place] [address] Dr. Raymond Walsh MCH (RBC) [Entitic mass] 29.3 pg Normal 25.9-34.0 [facility] Comment on above: Performed By: #### C BC #### [facility] [address] [place] [address] Dr. Raymond Walsh MCHC (RBC) [Mass/Vol] 29.2 g/dL Critically low 29.9-35.2 [facility] Comment on above: Performed By: #### C BC #### [facility] [address] [place] [address] Dr. Raymond Walsh MCV (RBC) [Entitic vol] 100.4 fL Critically high 80.0-94.0 [facility] Comment on above: Performed By: #### C BC #### [facility] [address] [place] [address] Dr. Raymond Walsh MONO # 0.7 103/ul Normal 0.3-0.8 [facility] Comment on above: Performed By: #### C BC #### [facility] [address] [place] [address] Dr. Raymond Walsh Monocytes/100 WBC (Bld) 6.3 % Normal 1.7-12.0 [facility] Comment on above: Performed By: #### C BC #### [facility] [address] [place] [address] Dr. Raymond Walsh NEUT # 8.1 103/ul Critically high 1.4-6.5 [facility] Comment on above: Performed By: #### C BC #### [facility] [address] [place] [address] Dr. Raymond Walsh Neutrophils/100 WBC (Bld) 74.8 % Normal 43.0-75.0 [facility] Comment on above: Performed By: #### C BC #### [facility] [address] [place] [address] Dr. Raymond Walsh Platelet mean volume (Bld) [Entitic vol] 10.3 fL Normal 9.5-13.5 [facility] Comment on above: Performed By: #### C BC #### [facility] [address] [place] [address] Dr. Raymond Walsh PLT 216 103/ul Normal 150-450 [facility] Comment on above: Performed By: #### C BC #### [facility] [address] [place] [address] Dr. Raymond Walsh RBC 5.59 106/ul Normal 4.70-6.10 [facility] Comment on above: Performed By: #### C BC #### [facility] [address] [place] [address] Dr. Raymond Walsh WBC 10.8 103/ul Normal 4.0-11.0 [facility] Comment on above: Performed By: #### C #### [facility] [address] [address] [address] Raymond Walsh ECHOCARDIO M/2D COMPLETEon 0 05-18-2022 ECHOCARDIO M/2D COMPLETE Patient: EVGENY DELGADO Exam Date: 05/18/2022 : 1955 Gender:M Ordering : DR GEORGE NIETO . Admission #: [id number] Family : Order #: [id number] CLICK HERE TO VIEW EXAM ECHOCARDIOGRAM REPORT PROCEDURE: CARDIO PULMONARY ECHOCARDIO M/2D COMP INDICATIONS: CHF, elevated BNP, pulmonary muscular dystrophy COMPARISON: None. DESCRIPTION: COMPLETE ECHOCARDIOGRAM Real-time transthoracic echocardiography with 2D, M-mode, spectral and color flow Doppler performed. QUALITY: Technical quality was limited. 70 203# BP 101/67 LEFT VENTRICLE: Normal chamber size. Abnormal septal motion due to RV pressure or volume overload. Global hypokinesis. LV EF: Mildly reduced left ventricular ejection fraction, (45%). DIASTOLIC: ATRIAL SEPTUM: LEFT ATRIUM: Normal chamber size. RIGHT ATRIUM: Normal chamber size. RIGHT VENTRICLE: Normal chamber size. Decreased right ventricular systolic function. TRICUSPID VALVE: Normal mobility and thickness. No stenosis with trivial regurgitation. MITRAL VALVE: Mildly thickened with normal mobility. No evidence of mitral valve stenosis. Mild mitral annular calcification. No mitral regurgitation. AORTIC VALVE: The aortic valve appears bicuspid. It is heavily calcified with moderately diminished mobility. Doppler velocity suggest moderate aortic valve stenosis. Mean gradient 24 mmHg. DVI 0.3. LATOYA 1.3 cm2. No aortic regurgitation. AORTIC ROOT: Normal diameter and appearance. PULMONIC VALVE: Not well visualized. No stenosis. No regurgitation. PERICARDIUM: No evidence of pericardial effusion. IVC: IVC is normal in size, does not collapse. PLEURA: CONCLUSION: 1. Technically limited study with poor sound transmission. 2. Left ventricular systolic function appears mildly reduced. LVEF is around 45%. 3. The right ventricular systolic function appears mildly reduced. 4. The aortic valve is likely bicuspid and heavily calcific. Moderate aortic valve stenosis is seen. Dictated by: Christopher Carreon M.D. on 05/18/2022 at 16:57 Approved by: Christopher Carreon M.D. on 05/18/2022 at 17:09 Normal [facility] FREE T3on 05-18-2022 FREE T3 2.21 pg/mlL Normal 2.18-3.98 [facility] Comment on above: Performed By: #### C VDTBH #### [facility] [address] [address] [address] Raymond Walsh FREE T4on 05-18-2022 Free T4 [Mass/Vol] 1.10 ng/dL Normal 0.76-1.46 [facility] Comment on above: Performed By: #### C VDTBH #### [facility] [address] [address] [address] Raymond Walsh LIPID PROFILEon 05-18-2022 CHOL-HDL RATIO NORM SEE BELOW Normal [facility] Comment on above: Result Comment: 3.3 - 4.4 LOW RISK 4.4 - 7.1 AVERAGE RISK 7.1 - 11.0 MODERATE RISK >11.0 HIGH RISK Performed By: #### C MP, BNP #### [facility] [address] [place] [address] Dr. Raymond Walsh Cholesterol [Mass/Vol] 154 mg/dL Normal <=200 [facility] Comment on above: Performed By: #### C MP, BNP #### [facility] [address] [place] [address] Dr. Raymond Walsh Cholesterol in HDL [Mass/Vol] 48 mg/dL Normal 40-60 [facility] Comment on above: Performed By: #### C MP, BNP #### [facility] [address] [address] [address] Raymond Walsh Cholesterol in LDL [Mass/Vol] 55.6 mg/dL Normal [facility] Comment on above: Performed By: #### C MP, BNP #### [facility] [address] [place] [address] Dr. Raymond Walsh Cholesterol.total/Chol esterol in HDL [Mass ratio] 3.2 {ratio} Normal [facility] Comment on above: Performed By: #### C MP, BNP #### [facility] [address] [address] [address] Raymond Walsh HDL NORMAL > or = 60 mg/dl - LO W CARDIOVASCULAR RISK <40 mg/dl - HIGH CARDIOVASCULAR RISK Normal [facility] Comment on above: Performed By: #### C MP, BNP #### [facility] [address] [address] [address] Raymond Walsh LDL CALC NORMAL SEE BELOW Normal [facility] Comment on above: Result Comment: <100 mg/dl OPTIMAL 100 - 129 mg/dl NEAR OR ABOVE OPTIMAL 130 - 159 mg/dl BORDERLINE HIGH 160 - 189 mg/dl HIGH >190 mg/dl VERY HIGH Performed By: #### C MP, BNP #### [facility] [address] [address] [address] Raymond Walsh Triglyceride [Mass/Vol] 252 mg/dL Critically high <=150 [facility] Comment on above: Performed By: #### C MP, BNP #### [facility] [address] [place] [address] Dr. Raymond Walsh VLDL CALC 50.4 mg/dL Normal [facility] Comment on above: Performed By: #### C MP, BNP #### [facility] [address] [place] [address] Dr. Raymond Walsh MAGNESIUMon 05-18-2022 Magnesium [Mass/Vol] 1.4 mg/dL Critically low 1.8-2.4 [facility] Comment on above: Performed By: #### C MP, BNP #### [facility] [address] [place] [address] Dr. Raymond Walsh POINT OF CARE GLUCOSEon 08-0 Glucose [Mass/Vol] 152 mg/dL Critically high 74-106 [facility] Comment on above: Performed By: #### C MP, BNP #### [facility] [address] [address] [address] Raymond Walsh Glucose [Mass/Vol] 140 mg/dL Critically high -106 [facility] Comment on above: Performed By: #### S PUTGS #### [facility] [address] [address] [address] Raymond Walsh Glucose [Mass/Vol] 190 mg/dL Critically high -106 [facility] Comment on above: Performed By: #### C MP, BNP #### [facility] [address] [address] [address] Raymond Walsh Glucose [Mass/Vol] 146 mg/dL Critically high 74-106 [facility] Comment on above: Performed By: #### P OCGLUC #### [facility] [address] [address] [address] Raymond Walsh Glucose [Mass/Vol] 145 mg/dL Critically high 74-106 [facility] Comment on above: Performed By: #### P OCGLUC #### [facility] [address] [place] [address] Dr. Raymond Walsh PROF 14(COMP METB)on 022 Albumin [Mass/Vol] 3.7 g/dL Normal 3.4-5.0 [facility] Comment on above: Performed By: #### C BC #### [facility] [address] [place] [address] Dr. Raymond Walsh Albumin/Globulin [Mass ratio] 1.1 {ratio} Normal [facility] Comment on above: Performed By: #### C BC #### [facility] [address] [place] [address] Dr. Raymond Walsh ALP [Catalytic activity/Vol] 90 U/L Normal 46-116 [facility] Comment on above: Performed By: #### C BC #### [facility] [address] [place] [address] Dr. Raymond Walsh ALT [Catalytic activity/Vol] 25 U/L Normal 16-63 [facility] Comment on above: Performed By: #### C BC #### [facility] [address] [place] [address] Dr. Raymond Walsh Anion gap [Moles/Vol] 10.7 mmol/L Normal [facility] Comment on above: Performed By: #### C BC #### [facility] [address] [place] [address] Dr. Raymond Walsh AST [Catalytic activity/Vol] 20 U/L Normal 15-37 [facility] Comment on above: Performed By: #### C BC #### [facility] [address] [address] [address] Raymond Walsh Bilirubin [Mass/Vol] 0.5 mg/dL Normal 0.2-1.0 [facility] Comment on above: Performed By: #### C BC #### [facility] [address] [address] [address] Raymond Walsh Calcium [Mass/Vol] 9.4 mg/dL Normal 8.5-10.1 [facility] Comment on above: Performed By: #### C BC #### [facility] [address] [address] [address] Raymond Walsh Chloride [Moles/Vol] 99 mmol/L Normal 98-107 [facility] Comment on above: Performed By: #### C BC #### [facility] [address] [place] [address] Dr. Raymond Walsh CO2 [Moles/Vol] 39.2 mmol/L Critically high 21.0-32.0 [facility] Comment on above: Performed By: #### C BC #### [facility] [address] [place] [address] Dr. Raymond Walsh Creatinine [Mass/Vol] 0.63 mg/dL Critically low 0.70-1.30 [facility] Comment on above: Performed By: #### C BC #### [facility] [address] [place] [address] Dr. Raymond Walsh EGFR-AF SAMOAN >60 Normal >=60 [facility] Comment on above: Performed By: #### C BC #### [facility] [address] [place] [address] Dr. Raymond Walsh EGFR-NON AF SAMOAN >60 Normal >=60 [facility] Comment on above: Performed By: #### C BC #### [facility] [address] [place] [address] Dr. Raymond Walsh Globulin (S) [Mass/Vol] 3.4 g/dL Normal [facility] Comment on above: Performed By: #### C BC #### [facility] [address] [place] [address] Dr. Raymond Walsh Glucose [Mass/Vol] 171 mg/dL Critically high 74-106 [facility] Comment on above: Performed By: #### C BC #### [facility] [address] [address] [address] Raymond Walsh Potassium [Moles/Vol] 4.9 mmol/L Normal 3.5-5.1 [facility] Comment on above: Performed By: #### C BC #### [facility] [address] [place] [address] Dr. Raymond Walsh Protein [Mass/Vol] 7.1 g/dL Normal 6.4-8.2 [facility] Comment on above: Performed By: #### C BC #### [facility] [address] [place] [address] Dr. Raymond Walsh Sodium [Moles/Vol] 144 mmol/L Normal 136-145 [facility] Comment on above: Performed By: #### C BC #### [facility] [address] [place] [address] Dr. Raymond Walsh Urea nitrogen [Mass/Vol] 25.0 mg/dL Critically high 7.0-18.0 [facility] Comment on above: Performed By: #### C BC #### [facility] [address] [place] [address] Dr. Raymond Walsh Urea nitrogen/Creatinine [Mass ratio] 39.7 mg/mg Normal [facility] Comment on above: Performed By: #### C BC #### [facility] [address] [place] [address] Dr. Raymond Walsh TSHon 05-18-2022 TSH 4.933 uIU/mL Critically high 0.358-3.740 [facility] Comment on above: Performed By: #### C VDTBH #### [facility] [address] [place] [address] Dr. Raymond Walsh BNPon 05-17-2022 Natriuretic peptide B (Bld) [Mass/Vol] 1307.0 pg/mL Critically high <=900.0 [facility] Comment on above: Performed By: #### C VDTBH #### [facility] [address] [address] [address] Raymond Walsh CBC AUTO DIFFon 05-17-2022 BASO # 0.0 103/ul Normal 0.0-0.1 [facility] Comment on above: Performed By: #### P OCGLUC #### [facility] [address] [address] [address] Raymond Walsh Basophils/100 WBC (Bld) 0.4 % Normal 0.2-2.0 [facility] Comment on above: Performed By: #### P OCGLUC #### [facility] [address] [place] [address] Dr. Raymond Walsh EO # 0.1 103/ul Normal 0.0-0.7 [facility] Comment on above: Performed By: #### P OCGLUC #### [facility] [address] [place] [address] Dr. Raymond Walsh Eosinophils/100 WBC (Bld) 1.0 % Normal 0.9-7.0 [facility] Comment on above: Performed By: #### P OCGLUC #### [facility] [address] [place] [address] Dr. Raymond Walsh Erythrocyte distribution width (RBC) [Ratio] 15.1 % Critically high 11.0-15.0 [facility] Comment on above: Performed By: #### P OCGLUC #### [facility] [address] [place] [address] Dr. Raymond Walsh Hematocrit (Bld) [Volume fraction] 52.0 % Normal 42.0-54.0 [facility] Comment on above: Performed By: #### P OCGLUC #### [facility] [address] [place] [address] Dr. Raymond Walsh Hemoglobin (Bld) [Mass/Vol] 15.4 g/dL Normal 14.0-18.0 [facility] Comment on above: Performed By: #### P OCGLUC #### [facility] [address] [place] [address] Dr. Raymond Walsh IG # 0.07 10e3/ul Critically high 0.00-0.03 [facility] Comment on above: Performed By: #### P OCGLUC #### [facility] [address] [address] [address] Raymond Walsh IG % 0.6 % Critically high 0.0-0.5 [facility] Comment on above: Performed By: #### P OCGLUC #### [facility] [address] [address] [address] Raymond Walsh LYMPH # 1.5 103/ul Normal 1.2-3.8 [facility] Comment on above: Performed By: #### P OCGLUC #### [facility] [address] [address] [address] Raymond Walsh Lymphocytes/100 WBC (Bld) 14.0 % Critically low 20.5-60.0 [facility] Comment on above: Performed By: #### P OCGLUC #### [facility] [address] [address] [address] Raymond Walsh MANUAL DIFF REQ NO Normal [facility] Comment on above: Performed By: #### P OCGLUC #### [facility] [address] [address] [address] Raymond Walsh MCH (RBC) [Entitic mass] 29.2 pg Normal 25.9-34.0 [facility] Comment on above: Performed By: #### P OCGLUC #### [facility] [address] [address] [address] Raymond Walsh MCHC (RBC) [Mass/Vol] 29.6 g/dL Critically low 29.9-35.2 [facility] Comment on above: Performed By: #### P OCGLUC #### [facility] [address] [address] [address] Raymond Walsh MCV (RBC) [Entitic vol] 98.7 fL Critically high 80.0-94.0 [facility] Comment on above: Performed By: #### P OCGLUC #### [facility] [address] [address] [address] Raymond Walsh MONO # 0.8 103/ul Normal 0.3-0.8 [facility] Comment on above: Performed By: #### P OCGLUC #### [facility] [address] [address] [address] Raymond Walsh Monocytes/100 WBC (Bld) 6.9 % Normal 1.7-12.0 [facility] Comment on above: Performed By: #### P OCGLUC #### [facility] [address] [address] [address] Raymond Walsh NEUT # 8.4 103/ul Critically high 1.4-6.[address] [facility] Comment on above: Performed By: #### P OCGLUC #### [facility] [address] [address] [address] Raymond Walsh Neutrophils/100 WBC (Bld) 77.1 % Critically high 43.0-75.0 [facility] Comment on above: Performed By: #### P OCGLUC #### [facility] [address] [place] [address] Dr. Raymond Walsh Platelet mean volume (Bld) [Entitic vol] 10.4 fL Normal 9.5-13.5 [facility] Comment on above: Performed By: #### P OCGLUC #### [facility] [address] [address] [address] Raymond Walsh PLT 219 103/ul Normal 150-450 [facility] Comment on above: Performed By: #### P OCGLUC #### [facility] [address] [place] [address] Dr. Raymond Walsh RBC 5.27 106/ul Normal 4.70-6.10 [facility] Comment on above: Performed By: #### P OCGLUC #### [facility] [address] [place] [address] Dr. Raymond Walsh Covid-19 PCR ([facility])on SARS-CoV-2 (COVID-19) RNA ZACHARIAH+probe Ql (Unsp spec) Not detected Normal NOT DETECTED [facility] Comment on above: Result Comment: When diagnostic testing is negative, the possibility of a false negative should be considered in the context of a patient's recent exposures and the presence of clinical signs and symptoms consistent with SARS-CoV-2. This test is not yet approved or cleared by the [place] FDA. When there are no FDA-approved or cleared tests available, and other criteria are met, FDA can make tests available under an emergency access mechanism called an Emergency Use Authorization (EUA). The EUA for this test is supported by the [place] of Health and Human Service's declaration that circumstances exist to justify the emergency use of in vitro diagnostics for the detection and/or diagnosis of the virus that causes COVID-19. This EUA will remain in effect for the duration of the COVID-19 declaration justifying emergency of IVDs, unless it is terminated or revoked by the FDA (after which the test may no longer be used). Performed By: #### P OCGLUC #### [facility] [address] [place] [address] Dr. Raymond Walsh POINT OF CARE GLUCOSEon Glucose [Mass/Vol] 148 mg/dL Critically high 74-106 [facility] Comment on above: Performed By: #### C MP, BNP #### [facility] [address] [place] [address] Dr. Raymond Walsh PROF CHEM 8 (BAS METB)on Anion gap [Moles/Vol] 11.0 mmol/L Normal [facility] Comment on above: Performed By: #### C VDTBH #### [facility] [address] [place] [address] Dr. Raymond Walsh Calcium [Mass/Vol] 9.5 mg/dL Normal 8.5-10.1 [facility] Comment on above: Performed By: #### C VDTBH #### [facility] [address] [place] [address] Dr. Raymond Walsh Chloride [Moles/Vol] 100 mmol/L Normal 98-107 [facility] Comment on above: Performed By: #### C VDTBH #### [facility] [address] [place] [address] Dr. Raymond Walsh CO2 [Moles/Vol] 35.5 mmol/L Critically high 21.0-32.0 [facility] Comment on above: Performed By: #### C VDTBH #### [facility] [address] [address] [address] Raymond Walsh Creatinine [Mass/Vol] 0.76 mg/dL Normal 0.70-1.30 [facility] Comment on above: Performed By: #### C VDTBH #### [facility] [address] [address] [address] Raymond Walsh EGFR-AF SAMOAN >60 Normal >=60 [facility] Comment on above: Performed By: #### C VDTBH #### [facility] [address] [address] [address] Raymond Walsh EGFR-NON AF SAMOAN >60 Normal >=60 [facility] Comment on above: Performed By: #### C VDTBH #### [facility] [address] [address] [address] Raymond Walsh Glucose [Mass/Vol] 187 mg/dL Critically high 74-106 [facility] Comment on above: Performed By: #### C VDTBH #### [facility] [address] [address] [address] Raymond Walsh Potassium [Moles/Vol] 4.5 mmol/L Normal 3.5-5.1 [facility] Comment on above: Performed By: #### C VDTBH #### [facility] [address] [place] [address] Dr. Raymond Walsh Sodium [Moles/Vol] 142 mmol/L Normal 136-145 [facility] Comment on above: Performed By: #### C VDTBH #### [facility] [address] [address] [address] Raymond Walsh Urea nitrogen [Mass/Vol] 26.0 mg/dL Critically high 7.0-18.0 [facility] Comment on above: Performed By: #### C VDTBH #### [facility] [address] [address] [address] Raymond Walsh Urea nitrogen/Creatinine [Mass ratio] 34.2 mg/mg Normal [facility] Comment on above: Performed By: #### C VDTBH #### [facility] [address] [address] [address] Raymond Walsh TROPONIN, HIGH SENSITIVITYon 05-17-2022 HSTROP 38.5 pg/mL Normal 4.0-76.1 [facility] Comment on above: Result Comment: CUT- OFF POINTS HAVE BEEN ESTABLISHED BASED ON THE FOURTH UNIVERSAL DEFINITIONS OF MYOCARDIAL INFARCTION. THE UPPER REFERENCE LIMIT (URL) OF TROPONIN, DEFINED THE 99TH PERCENTILE OF cTnI DISTRIBUTION IN A REFERENCE POPULATION, HAS BEEN CONFIRMED THE DECISION THRESHOLD FOR CA DIAGNOSIS. Performed By: #### C VDTB #### [facility] [address] [address] [address] Raymond Walsh XR CHEST 1 Von 05-17-2022 XR CHEST 1 V EXAM: XR CHEST 1 V COMPARISON: None available. CLINICAL INDICATION: Shortness of breath. FINDINGS: Cardiac silhouette borderline enlarged. Mediastinal contours within normal limits. Elevation of the right hemidiaphragm with right basilar atelectasis/scarring. No focal consolidation. No overt pulmonary edema or significant pleural effusions. No pneumothorax. IMPRESSION: 1. No radiographic evidence of acute cardiopulmonary abnormality. 2. Borderline enlarged cardiac silhouette. 3. Elevation of the right hemidiaphragm with right basilar atelectasis/scarring. Electronically authenticated by: DEVYN AGUILAR Date: 2022-05-17 16:46 Normal [facility] POTASSIUMon 05-10-2022 Potassium [Moles/Vol] 4.6 mmol/L Normal 3.5-5.1 [facility] Comment on above: Performed By: #### S PUTGS #### [facility] [address] [place] [address] Dr. Raymond Walsh GLYCOHEMOGLOBIN A1Con 2021 ADA RECOMMENDATION SEE BELOW Normal [facility] Comment on above: Result Comment: ADA RECOMMENDED LIMIT 4.0 - 6.0 ADA THERAPEUTIC TARGET < 7.0 ACTION SUGGESTED > 7.0 Performed By: #### C MP, BNP #### [facility] [address] [address] [address] Raymond Walsh Glucose [Mass/Vol] 180 mg/dL Normal [facility] Comment on above: Performed By: #### C MP, BNP #### [facility] [address] [address] [address] Raymond Walsh HbA1c (Bld) [Mass fraction] 7.9 % Critically high 4.5-6.2 [facility] Comment on above: Performed By: #### C MP, BNP #### [facility] [address] [address] [address] Raymond Walsh LIPID PROFILEon 04-21-2022 CHOL-HDL RATIO NORM SEE BELOW Normal [facility] Comment on above: Result Comment: 3.3 - 4.4 LOW RISK 4.4 - 7.1 AVERAGE RISK 7.1 - 11.0 MODERATE RISK >11.0 HIGH RISK Performed By: #### C MP, BNP #### [facility] [address] [place] [address] Dr. Raymond Walsh Cholesterol [Mass/Vol] 144 mg/dL Normal <=200 [facility] Comment on above: Performed By: #### C MP, BNP #### [facility] [address] [place] [address] Dr. Raymond Walsh Cholesterol in HDL [Mass/Vol] 46 mg/dL Normal 40-60 [facility] Comment on above: Performed By: #### C MP, BNP #### [facility] [address] [place] [address] Dr. Raymond Walsh Cholesterol in LDL [Mass/Vol] 69.0 mg/dL Normal [facility] Comment on above: Performed By: #### C MP, BNP #### [facility] [address] [address] [address] Raymond Walsh Cholesterol.total/Chol esterol in HDL [Mass ratio] 3.1 {ratio} Normal [facility] Comment on above: Performed By: #### C MP, BNP #### [facility] [address] [place] [address] Dr. Raymond Walsh HDL NORMAL > or = 60 mg/dl - LO W CARDIOVASCULAR RISK <40 mg/dl - HIGH CARDIOVASCULAR RISK Normal [facility] Comment on above: Performed By: #### C MP, BNP #### [facility] [address] [place] [address] Dr. Raymond Walsh LDL CALC NORMAL SEE BELOW Normal [facility] Comment on above: Result Comment: <100 mg/dl OPTIMAL 100 - 129 mg/dl NEAR OR ABOVE OPTIMAL 130 - 159 mg/dl BORDERLINE HIGH 160 - 189 mg/dl HIGH >190 mg/dl VERY HIGH Performed By: #### C MP, BNP #### [facility] [address] [place] [address] Dr. Raymond Walsh Triglyceride [Mass/Vol] 145 mg/dL Normal <=150 [facility] Comment on above: Performed By: #### C MP, BNP #### [facility] [address] [address] [address] Raymond Walsh VLDL CALC 29.0 mg/dL Normal [facility] Comment on above: Performed By: #### C MP, BNP #### [facility] [address] [place] [address] Dr. Raymond Walsh PROF 14(COMP METB)on 022 Albumin [Mass/Vol] 3.5 g/dL Normal 3.4-5.0 [facility] Comment on above: Performed By: #### C MP, BNP #### [facility] [address] [place] [address] Dr. Raymond Walsh Albumin/Globulin [Mass ratio] 0.9 {ratio} Normal [facility] Comment on above: Performed By: #### C MP, BNP #### [facility] [address] [place] [address] Dr. Raymond Walsh ALP [Catalytic activity/Vol] 84 U/L Normal 46-116 [facility] Comment on above: Performed By: #### C MP, BNP #### [facility] [address] [place] [address] Dr. Raymond Walsh ALT [Catalytic activity/Vol] 27 U/L Normal 16-63 [facility] Comment on above: Performed By: #### C MP, BNP #### [facility] [address] [address] [address] Raymond Walsh Anion gap [Moles/Vol] 8.1 mmol/L Normal [facility] Comment on above: Performed By: #### C MP, BNP #### [facility] [address] [address] [address] Raymond Walsh AST [Catalytic activity/Vol] 31 U/L Normal 15-37 [facility] Comment on above: Performed By: #### C MP, BNP #### [facility] [address] [address] [address] Raymond Walsh Bilirubin [Mass/Vol] 0.8 mg/dL Normal 0.2-1.0 [facility] Comment on above: Performed By: #### C MP, BNP #### [facility] [address] [address] [address] Raymond Walsh Calcium [Mass/Vol] 9.6 mg/dL Normal 8.5-10.1 [facility] Comment on above: Performed By: #### C MP, BNP #### [facility] [address] [place] [address] Dr. Raymond Walsh Chloride [Moles/Vol] 99 mmol/L Normal 98-107 [facility] Comment on above: Performed By: #### C MP, BNP #### [facility] [address] [address] [address] Raymond Walsh CO2 [Moles/Vol] 35.7 mmol/L Critically high 21.0-32.0 [facility] Comment on above: Performed By: #### C MP, BNP #### [facility] [address] [place] [address] Dr. Raymond Walsh Creatinine [Mass/Vol] 0.49 mg/dL Critically low 0.70-1.30 [facility] Comment on above: Performed By: #### C MP, BNP #### [facility] [address] [place] [address] Dr. Raymond Walsh EGFR-AF SAMOAN >60 Normal >=60 [facility] Comment on above: Performed By: #### C MP, BNP #### [facility] [address] [address] [address] Raymond Walsh EGFR-NON AF SAMOAN >60 Normal >=60 [facility] Comment on above: Performed By: #### C MP, BNP #### [facility] [address] [address] [address] Raymond Walsh Globulin (S) [Mass/Vol] 3.9 g/dL Normal [facility] Comment on above: Performed By: #### C MP, BNP #### [facility] [address] [address] [address] Raymond Walsh Glucose [Mass/Vol] 173 mg/dL Critically high 74-106 [facility] Comment on above: Performed By: #### C MP, BNP #### [facility] [address] [place] [address] Dr. Raymond Walsh Potassium [Moles/Vol] 5.8 mmol/L Critically high 3.5-5.1 [facility] Comment on above: Performed By: #### C MP, BNP #### [facility] [address] [place] [address] Dr. Raymond Walsh Protein [Mass/Vol] 7.4 g/dL Normal 6.4-8.2 [facility] Comment on above: Performed By: #### C MP, BNP #### [facility] [address] [place] [address] Dr. Raymond Walsh Sodium [Moles/Vol] 137 mmol/L Normal 136-145 [facility] Comment on above: Performed By: #### C MP, BNP #### [facility] [address] [place] [address] Dr. Raymond Waslh Urea nitrogen [Mass/Vol] 19.0 mg/dL Critically high 7.0-18.0 [facility] Comment on above: Performed By: #### C MP, BNP #### [facility] [address] [place] [address] Dr. Raymond Walsh Urea nitrogen/Creatinine [Mass ratio] 38.8 mg/mg Normal [facility] Comment on above: Performed By: #### C MP, BNP #### [facility] [address] [place] [address] Dr. Raymond Walsh Encounters Encounter Date Encounter Type Care Provider Facility Start: 07-16-2024 ambulatory Marco Bosch [facility] ty:[facility] Start: 07-09-2024 End: 07-09-2024 ambulatory Marco Bosch Facility: [facility] Start: 03-12-2024 End: 03-12-2024 ambulatory Marco Bosch Facility: [facility] Start: 11-09-2023 End: 11-09-2023 ambulatory Marco Bosch Facility: [facility] Start: 08-01-2023 End: 08-01-2023 ambulatory Marco Bosch Facility: [facility] Start: 07-26-2023 ambulatory Marco Bosch Facili ty: [facility] Start: 06-20-2023 End: 06-20-2023 Emergency department patient visit Marco Bosch Facility:[facility] Start: 04-26-2023 End: 04-27-2023 ambulatory [facility] Start: 04-26-2023 End: 04-26-2023 ambulatory [facility] Start: 04-09-2023 End: 04-20-2023 Evaluation and management of inpatient [facility] Start: 04-05-2023 End: 04-08-2023 ambulatory JULIET ROMAN [facility] Start: 02-27-2023 End: 02-28-[address] MARCO BOSCH Facility:[facility] Start: 02-09-2023 End: 02-10-[address] MARCO BOSCH Facility:[facility] Start: 01-18-2023 End: 01-19-[address] MARCO BOSCH Facility:[facility] Start: 12-21-2022 End: 12-21-2022 ambulatory [facility] Start: 09-01-2022 ambulatory [facility] Start: 08-10-2022 Encounter for preprocedural laboratory examination MOHAN CAM [facility] Start: 08-08-2022 ambulatory [facility] Start: 08-08-2022 End: 08-08-2022 ambulatory [facility] Start: 08-05-2022 End: 08-06-[address] MARCO BOSCH Facility:[facility] Start: 08-05-2022 End: 08-06-2022 Encounter for preprocedural laboratory examination DR MARCO BOSCH Facility:[facility] Start: 07-05-2022 End: 07-05-2022 ambulatory MOHAN CAM [facility] Start: 06-26-2022 End: 06-27-[address] MARCO BOSCH Facility:[facility] Start: 06-22-2022 End: 06-23-[address] MARCO BOSCH Facility:[facility] Start: 05-30-2022 End: 05-31-[address] MARCO BOSCH Facility:[facility] Start: 05-21-2022 End: 05-26-2022 Evaluation and management of inpatient PAYAL GAMBLE Facility:[facility] Start: 05-20-2022 End: 05-20-2022 Departed Referred DO Marco Bosch Work Phone: [facility] [place] Start: 05-19-2022 End: 05-21-2022 Evaluation and management of inpatient DR MARCO BOSCH Facility:[facility] Start: 05-10-2022 End: 05-11-[address] MARCO BOSCH Facility:[facility] Start: 04-21-2022 End: 04-22-[address] MARCO BOSCH Facility:[facility] Start: 02-09-2022 End: 02-09-2022 ambulatory Ebonie Rodriguezarturo EPPS Work Phone: Telemedicine Comment on above: URI, acute (Primary Dx) Start: 02-09-2022 End: 02-09-2022 Telemedicine consultation with patient Ebonie Keyes APRRICA Work Phone: [facility] Plan of Treatment Date Care Activity Detail Author Start: 09-07-2030 Urine microalbumin profile DTA P,TDAP,TD (2 - Td or Tdap) [facility] Start: 04-22-2024 PROSTATE CANCER SCRE ENING DISCUSSION PROSTATE CANCER SCREENING DISCUSSION [facility] Start: 06-16-2022 Influenza vaccination INFLUENZA (Sea son Ended) [facility] Start: 10-16-2021 ADVANCE DIRECTIVE DISCUSSION ADVANCE DIRECTIVE DISCUSSION [facility] Start: 02-20-2020 PNEUMOVAX AGE 65 AND OVER WITH 5YR LOOKBACK (#1) PNEUMOVAX AGE 65 AND OVER WITH 5YR LOOKBACK (#1) [facility] Start: 07-24-2017 SHINGRIX VACCINE (2 of 3) SHINGRIX V ACCINE (2 of 3) [facility] Start: 02-20-2000 COLOGUARD (FIT-DNA) COLOGUARD (FIT-D NA) [facility] Start: 02-20-2000 Colonoscopy COLONOSCOPY [facility] Start: 02-20-2000 COLORECTAL CANCER SCREENING COLORECTAL CANCER SCREENING [facility] Start: 02-20-[address] COLONOGRAPHY [facility] Start: 02-20-2000 FECAL OCCULT BLOOD FECAL OCCULT BLOO D [facility] Start: 02-20-2000 SIGMOIDOSCOPY SIGMOIDOSCOPY [facility] Start: 1973 ANNUAL PCP TEAM DIRECTOR CRAFT C[facility] [place] DISEASE VISIT ANNUAL PCP TEAM CHRONIC DISEASE VISIT [facility] Start: 1973 BP CONTROLLED (<130/80) BP CONTROLLE D (<130/80) [facility] Start: 1973 Hepatitis B surface antibody level LDL CHOLESTEROL [facility] Start: 1973 HEPATITIS C SCREENING HEPATITIS C SC REENING [facility] Start: 1967 Adult depression scr eening assessment DEPRESSION SCREENING [facility] Start: 1965 3 comp foot exam completed DIABETIC FOOT EXAM [facility] Start: 1965 Hepatitis B screening URINE AL BUMIN:CREATININE RATIO [facility] Start: 1965 Hepatitis C antibody , confirmatory test DILATED RETINAL EXAM [facility] Start: 02-20-1960 Hemoglobin A1c/Hemoglobin.total in Blood HBA1C [facility] Immunizations Immunization Date Immunization Notes Care Provider Fa miguel angel 09-29-2021 COVID-19 vaccine, ag e 12+ yr (PFIZER-BIONTECH - PURPLE TOP) Ebonie Keyes APRN.INTERNET PROJECT MANAGER Work Phone: [facility] Work Phone: 01-07-2021 COVID-19 vaccine, ag e 12+ yr (PFIZER-BIONTECH - PURPLE TOP) Ebonie Keyes APRN.INTERNET PROJECT MANAGER Work Phone: [facility] Work Phone: 12-17-2020 COVID-19 vaccine, ag e 12+ yr (PFIZER-BIONTECH - PURPLE TOP) Ebonie Keyes APRN.CNP Work Phone: [facility] Work Phone: 09-07-2020 influenza, injectabl e, quadrivalent, contains preservative Ebonie Digennaro WARP KNITTING MACHINE OPERATOR.[facility] Work Phone: [facility] Work Phone: 09-07-2020 tetanus toxoid, redu manuel diphtheria toxoid, and acellular pertussis vaccine, adsorbed Ebonie Digennaro WARP KNITTING MACHINE OPERATOR.[facility] Work Phone: [facility] Work Phone: 08-07-2019 influenza, injectabl e, quadrivalent, preservative free Ebonie Digennaro WARP KNITTING MACHINE OPERATOR.[facility] Work Phone: [facility] Work Phone: 08-27-2018 influenza, injectabl e, quadrivalent, preservative free Ebonie Digennaro WARP KNITTING MACHINE OPERATOR.[facility] Work Phone: [facility] Work Phone: 08-21-2017 influenza, injectabl e, quadrivalent, preservative free Ebonie Digennaro WARP KNITTING MACHINE OPERATOR.[facility] Work Phone: [facility] Work Phone: 05-29-2017 zoster vaccine, live Ebonie D igennaro WARP KNITTING MACHINE OPERATOR.[facility] Work Phone: [facility] Work Phone: 08-15-2016 influenza, injectabl e, quadrivalent, preservative free Ebonie Digennaro WARP KNITTING MACHINE OPERATOR.[facility] Work Phone: [facility] Work Phone: 09-15-2015 influenza, seasonal, injectable, preservative free Ebonie Digennaro WARP KNITTING MACHINE OPERATOR.[facility] Work Phone: [facility] Work Phone: 09-15-2015 pneumococcal conjuga te vaccine, 13 valent Ebonie Digennaro WARP KNITTING MACHINE OPERATOR.[facility] Work Phone: [facility] Work Phone: 07-16-2014 influenza virus vacc ine, unspecified formulation Ebonie Digennaro WARP KNITTING MACHINE OPERATOR.[facility] Work Phone: [facility] Work Phone: 07-31-2012 influenza virus vacc ine, unspecified formulation Ebonie Digennaro WARP KNITTING MACHINE OPERATOR.INTERNET PROJECT MANAGER Work Phone: [facility] Work Phone: 07-07-2009 influenza virus vacc ine, unspecified formulation Ebonie Digennaro WARP KNITTING MACHINE OPERATOR.INTERNET PROJECT MANAGER Work Phone: [facility] Work Phone: 08-26-2008 influenza virus vacc ine, unspecified formulation Ebonie Digennaro WARP KNITTING MACHINE OPERATOR.[facility] Work Phone: [facility] Work Phone: 08-26-2008 pneumococcal polysaccharide vaccine, 23 valent Ebonie Digennaro WARP KNITTING MACHINE OPERATOR.[facility] Work Phone: [facility] Work Phone: 08-17-1999 pneumococcal conjuga te vaccine, 7 valent Ebonie Digennaro WARP KNITTING MACHINE OPERATOR.[facility] Work Phone: [facility] Work Phone: Payers Date Payer Category Payer Self-pay 2023 Unknown [id number] 2018 Unknown MMO MMO [employer] [id number] 2018-Present [phone] [address] [place] [address] O [id number] 1959 Medicare [id number] 1959 Unknown [id number] 1955 Unknown [id number] [id number]8 1955 Unknown [id number] 2.16.840.1.636002.3.579.2.718 1955 Unknown [id number] 2.16.840.1.413227.3.579.2.718 1955 Unknown [id number] 2.16.840.1.347784.3.579.2.71 1955 Unknown [id number] 2.16.840.1.739010.3.579.2. 1955 Unknown [id number] 2.16.840.1.282143.3.579.2. 1955 Unknown [id number] 2.16.840.1.144644.3.579.2.647 1955 Unknown [id number] 2.16.840.1.324027.3.579.2.59 1955 Unknown [id number] 2.16.840.1.016258.3.579.2.59 1955 Unknown [id number] 2.16.840.1.994750.3.579.2.593 1955 Unknown [id number] 2.16.840.1.980373.3.579.2. 1955 Unknown [id number] 2.16.840.1.506562.3.579.2.593 1955 Unknown [id number] 2.16.840.1.253473.3.579.2.593 1955 Unknown [id number] 2.16.840.1.446195.3.579.2.593 1955 Unknown [id number] 2.16.840.1.381761.3.579.2.593 1955 Unknown [id number] 2.16.840.1.354608.3.579.2.593 1955 Unknown [id number] 2.16.840.1.718733.3.579.2.59 1955 Unknown [id number] 2.16.840.1.859947.3.579.2.175 1955 Unknown [id number] 2.16.840.1.000427.3.579.2.175 1955 Unknown [id number] 2.16.840.1.174783.3.579.2.175 1955 Unknown [id number] 2.16.840.1.895764.3.579.2.175 Unknown [id number] 2.16.840.1.930988.3.579.2.531 Social History Date Type Detail Facility Tobacco smoking status UTIS Tobacco smoking consumption unknown [facility] Start: 1955 Sex Assigned At Not on file C [facility] Start: 1955 Sex Assigned At Male F [facility] Clinical Notes 12-20-2021 to 07-08-2024 Patient InstructionsHejuana Keyes APRN.INTERNET PROJECT MANAGER - 02/09/2022 2:00 PM EDT Note Date & Type Note Facility 07-08-2024 Note - From: Day Yi RN ([facility] ([facility])) To: Marco Bosch DO; Sent: 07/08/2024 07:40:12 EDT Subject: FW: Medication Management Due Date/Time: 07/09/2024 02:08:00 EDT Caller Name: EVGENY DELGADO; Caller Number: , -------- From: [facility] To: Marco Bosch DO Sent: July 08, 2024 1:08:42 AM CDT Subject: Medication Management Due: July 09, 2024 12:05:35 AM CDT On Hold Pending Signature Drug: citalopram (citalopram 20 mg oral tablet), TAKE 1 TABLET DAILY Quantity: 90 tab(s) Days Supply: 0 Refills: 3 Substitutions Allowed Notes from Pharmacy: Dispensed Drug: citalopram (citalopram 20 mg oral tablet), TAKE 1 TABLET DAILY Quantity: 90 tab(s) Days Supply: 0 Refills: 3 Substitutions Allowed Notes from Pharmacy: -------- From: Marco Bosch DO To: [facility] Sent: 07/08/2024 07:53:52 EDT Subject: FW: Medication Management Submitted: Complete:citalopram (CeleXA 20 mg oral tablet) Signed by Marco Bosch DO 07/08/2024 07:53:00 EDT Approved with modifications: citalopram (CITALOPRAM HYDROBROMIDE TABS 20MG) TAKE 1 TABLET DAILY Qty: 90 tab(s) Days Supply: 0 Refills: 3 Substitutions Allowed Route To Pharmacy - [facility] 06-13-2024 Note - From: Day Yi RN ([facility] ([facility])) To: Marco Bosch DO; Sent: 06/13/2024 13:13:32 EDT Subject: Med Management Caller Name: EVGENY DELGADO; Caller Number: , Caller is: ( ) Patient ( ) Mother ( ) Father ( X ) Pharmacy ( ) Other: Pharmacy to route Rx to: [facility] Patient's Provider: Reviewed Allergies: ( ) Yes ( ) No Pharmacy: [facility] Comments: 1. Name of Medication: ATORVASTATIN 40MG DAILY Dosage: Dispense: ( ) New ( ) Refill Comment: 2. Name of Medication: Dosage: Dispense: ( ) New ( ) Refill Comment: 3. Name of Medication: Dosage: Dispense: ( ) New ( ) Refill Comment: 4. Name of Medication: Dosage: Dispense: ( ) New ( ) Refill Comment: ( ) OK to leave message on voice mail ( ) Patient told to expect return call: ( ) today ( ) tomorrow ( ) next work day ( ) Patient's email ( ) Other: Call back phone # now: until: Call back phone # later: Submitted: Order:atorvastatin (atorvastatin 40 mg oral tablet) 1 tab(s) Oral Daily Qty: 90 tab(s) Refills: 3 Substitutions Allowed Route To Pharmacy - [facility] Signed by Marco Bosch DO 06/13/2024 13:30:00 EDT [facility] 06-03-2024 Note - From: Day Yi RN ([facility] ([facility])) To: Marco Bosch DO; Sent: 06/03/2024 07:33:36 EDT Subject: FW: Medication Management Due Date/Time: 06/04/2024 02:14:00 EDT Caller Name: EVGENY DELGADO; Caller Number: H , -------- From: [facility] To: Marco Bosch DO Sent: June 03, 2024 1:14:56 AM CDT Subject: Medication Management Due: June 04, 2024 1:05:56 AM CDT On Hold Pending Signature Drug: midodrine (midodrine 10 mg oral tablet), TAKE 1 TABLET THREE TIMES A DAY Quantity: 270 tab(s) Days Supply: 0 Refills: 3 Substitutions Allowed Notes from Pharmacy: Dispensed Drug: midodrine (midodrine 10 mg oral tablet), TAKE 1 TABLET THREE TIMES A DAY Quantity: 270 tab(s) Days Supply: 0 Refills: 3 Substitutions Allowed Notes from Pharmacy: -------- From: Marco Bosch DO To: [facility] Sent: 06/03/2024 07:35:36 EDT Subject: FW: Medication Management Submitted: Complete:midodrine (midodrine 10 mg oral tablet) Signed by Marco Bosch DO 06/03/2024 07:35:00 EDT Approved with modifications: midodrine (MIDODRINE HCL TABS 10MG) TAKE 1 TABLET THREE TIMES A DAY Qty: 270 tab(s) Days Supply: 0 Refills: 3 Substitutions Allowed Route To Pharmacy - [facility] 04-23-2024 Note - From: Day Yi RN ([facility] ([facility] To: Marco Bosch DO; Sent: 04/23/2024 09:57:04 EDT Subject: Med Management Caller Name: EVGENY DELGADO; Caller Number: , M Caller is: ( X ) Patient ( ) Mother ( ) Father ( ) Pharmacy ( ) Other: Pharmacy to route Rx [facility] Patient's Provider: Reviewed Allergies: ( ) Yes ( ) No Pharmacy: [facility] Comments: 1. Name of Medication: XANAX 0.5MG Dosage: Dispense: ( ) New ( ) Refill Comment: 2. Name of Medication: Dosage: Dispense: ( ) New ( ) Refill Comment: 3. Name of Medication: Dosage: Dispense: ( ) New ( ) Refill Comment: 4. Name of Medication: Dosage: Dispense: ( ) New ( ) Refill Comment: ( ) OK to leave message on voice mail ( ) Patient told to expect return call: ( ) today ( ) tomorrow ( ) next work day ( ) Patient's email ( ) Other: Call back phone # now: until: Call back phone # later: Submitted: Order:ALPRAZolam (ALPRAZolam 0.5 mg oral tablet) 1 tab(s) PO HS 30 day supply Qty: 30 tab(s) Refills: 3 Substitutions Allowed Route To Pharmacy - [id number] Signed by Marco Bosch DO 04/23/2024 10:05:00 EDT [facility] 04-15-2024 Note - From: Day Yi RN ([facility] ([facility] To: Marco Bosch DO; Sent: 04/15/2024 07:17:01 EDT Subject: FW: Medication Management Due Date/Time: 04/16/2024 01:27:00 EDT Caller Name: EVGENY DELGADON; Caller Number: Lizet , Duy -------- From: [facility] To: Marco Bosch DO Sent: April 15, 2024 12:27:49 AM CDT Subject: Medication Management Due: April 16, 2024 12:02:32 AM CDT On Hold Pending [facility] Drug: allopurinol (allopurinol 300 mg oral tablet), TAKE 1 TABLET DAILY Quantity: 90 tab(s) Days Supply: 0 Refills: 3 Substitutions Allowed Notes from Pharmacy: Dispensed Drug: allopurinol (allopurinol 300 mg oral tablet), TAKE 1 TABLET DAILY Quantity: 90 tab(s) Days Supply: 0 Refills: 3 Substitutions Allowed Notes from Pharmacy: -------- From: Marco Bosch DO To: [facility] Sent: 04/15/2024 07:28:35 EDT Subject: FW: Medication Management Submitted: Complete:allopurinol (allopurinol 300 mg oral tablet) Signed by Marco Bosch DO 04/15/2024 07:28:00 EDT Approved with modifications: allopurinol (ALLOPURINOL TABS 300MG) TAKE 1 TABLET DAILY Qty: 90 tab(s) Days Supply: 0 Refills: 3 Substitutions Allowed Route To Pharmacy - [facility] 04-04-2024 Note - From: Silvia Khan MA ([facility] ([facility])) To: Marco Bosch DO; Sent: 04/04/2024 12:55:17 EDT Subject: FW: Medication Management Due Date/Time: 04/05/2024 12:03:00 EDT Caller Name: EVGENY DELGADO; Caller Number: , -------- From: [id number] To: Marco Bosch DO Sent: April 04, 2024 11:03:52 AM CDT Subject: Medication Management Due: April 05, 2024 12:06:54 AM CDT On Hold Pending [facility]: sacubitril-valsartan (Entresto 24 mg-26 mg oral tablet), 0.5 tab PO BID Quantity: 90 tab(s) Days Supply: 0 Refills: 2 Substitutions Allowed Notes from Pharmacy: Dispensed Drug: sacubitril-valsartan (Entresto 24 mg-26 mg oral tablet), TAKE 1/2 (ONE-HALF) OF A TABLET BY MOUTH TWICE DAILY Quantity: 90 tab(s) Days Supply: 90 Refills: 3 Substitutions Allowed Notes from Pharmacy: -------- From: Marco Bosch DO To: [id number] Sent: 04/04/2024 12:56:44 EDT Subject: FW: Medication Management Submitted: Complete:sacubitril-valsartan (Entresto 24 mg-26 mg oral tablet) Signed by Marco Bosch DO 04/04/2024 12:56:00 EDT Approved with modifications: sacubitril-valsartan (Entresto 24 mg-26 mg tablet) TAKE 1/2 (ONE-HALF) OF A TABLET BY MOUTH TWICE DAILY Qty: 90 tab(s) Days Supply: 90 Refills: 3 Substitutions Allowed Route To Pharmacy - [facility] #[id number] [facility] 02-15-2024 Note - From: Day Yi RN ([facility] ([facility])) To: Shannon Brambila CNP; Sent: 02/15/2024 07:31:24 EDT Subject: FW: Medication Management Due Date/Time: 02/16/2024 03:04:00 EDT Caller Name: EVGENY DELGADO; Caller Number: , Patient matched by Day Yi RN on 02/15/2024 07:31:12 EDT -------- From: [facility] To: Marco Bosch DO Sent: February 15, 2024 2:04:30 AM CDT Subject: Medication Management Due: February 16, 2024 12:03:59 AM CDT On Hold Pending [facility] Drug: pantoprazole (pantoprazole 40 mg oral delayed release tablet), TAKE 1 TABLET EVERY DAY Quantity: 90 tab(s) Days Supply: 0 Refills: 3 Substitutions Allowed Notes from Pharmacy: Dispensed Drug: pantoprazole (pantoprazole 40 mg oral delayed release tablet), TAKE 1 TABLET EVERY DAY Quantity: 90 tab(s) Days Supply: 90 Refills: 3 Substitutions Allowed Notes from Pharmacy: On Hold Pending [facility]: tamsulosin (Flomax 0.4 mg oral capsule), TAKE 2 CAPSULES EVERY DAY Quantity: 180 cap(s) Days Supply: 0 Refills: 3 Substitutions Allowed Notes from Pharmacy: Dispensed Drug: tamsulosin (tamsulosin 0.4 mg oral capsule), TAKE 2 CAPSULES EVERY DAY Quantity: 180 cap(s) Days Supply: 90 Refills: 3 Substitutions Allowed Notes from Pharmacy: -------- From: Shannon Brambila APRN, CNP To: [facility] Sent: 02/15/2024 10:46:17 EDT Subject: FW: Medication Management Submitted: Complete:tamsulosin (Flomax 0.4 mg oral capsule) Signed by Shannon Brambila APRN, CNP 02/15/2024 10:46:00 EDT Submitted: Complete:pantoprazole (pantoprazole 40 mg oral delayed release tablet) Signed by Shannon Brambila APRN, CNP 02/15/2024 10:46:00 EDT Approved with modifications: pantoprazole (PANTOPRAZOLE SODIUM 40 MG Tablet Delayed Release) TAKE 1 TABLET EVERY DAY Qty: 90 tab(s) Days Supply: 90 Refills: 3 Substitutions Allowed Route To Pharmacy [facility] Signed by Shannon Brambila APRN, CNP Approved with modifications: tamsulosin (TAMSULOSIN HYDROCHLORIDE 0.4 MG Capsule) TAKE 2 CAPSULES EVERY DAY Qty: 180 cap(s) Days Supply: 90 Refills: 3 Substitutions Allowed Route To Pharmacy - [facility] Signed by Shannon Brambila APRN, CNP [facility] 12-21-2023 Note - From: Day Yi RN ([facility] ([facility])) To: Marco Bosch DO; Sent: 12/21/2023 16:20:15 EST Subject: Med Management Caller Name: EVGENY DELGADO; Caller Number: , Caller is: ( X ) Patient ( ) Mother ( ) Father ( ) Pharmacy ( ) Other: Pharmacy to route Rx [facility]: [facility] Patient's Provider: Reviewed Allergies: ( ) Yes ( ) No Pharmacy: [facility] Comments: 1. Name of Medication: XANAX 0.5MG Dosage: Dispense: ( ) New ( ) Refill Comment: 2. Name of Medication: Dosage: Dispense: ( ) New ( ) Refill Comment: 3. Name of Medication: Dosage: Dispense: ( ) New ( ) Refill Comment: 4. Name of Medication: Dosage: Dispense: ( ) New ( ) Refill Comment: ( ) OK to leave message on voice mail ( ) Patient told to expect return call: ( ) today ( ) tomorrow ( ) next work day ( ) Patient's email ( ) Other: Call back phone # now: until: Call back phone # later: Submitted: Order:ALPRAZolam (ALPRAZolam 0.5 mg oral tablet) 1 tab(s) PO HS 30 day supply Qty: 30 tab(s) Refills: 3 Substitutions Allowed Route To Pharmacy - [facility] #[id number] Signed by Marco Bosch DO 12/21/2023 16:40:00 EST [facility] 12-04-2023 Note - From: Day Yi RN ([facility] ([facility] To: Shannon Brambila CNP; Sent: 12/04/2023 08:26:55 EST Subject: FW: Medication Management Due Date/Time: 12/04/2023 03:13:00 EST Caller Name: EVGENY DELGADO FERNANDO; Caller Number: H , M Patient matched by Day Yi RN on 12/04/2023 08:26:44 EST -------- From: [facility] To: Marco Bosch DO Sent: December 02, 2023 2:13:48 AM PERSONAL INSURANCE ADVISOR Subject: Medication Management Due: December 03, 2023 1:04:53 AM PERSONAL INSURANCE ADVISOR On Hold Pending [facility] Drug: furosemide (furosemide 20 mg oral tablet), TAKE 1 TABLET EVERY DAY Quantity: 90 tab(s) Days Supply: 0 Refills: 3 Substitutions Allowed Notes from Pharmacy: Dispensed Drug: furosemide (furosemide 20 mg oral tablet), TAKE 1 TABLET EVERY DAY Quantity: 90 tab(s) Days Supply: 90 Refills: 3 Substitutions Allowed Notes from Pharmacy: -------- From: Shannon Brambila APRN, CNP To: [facility] Sent: 12/04/2023 10:17:18 EST Subject: FW: Medication Management Submitted: Complete:furosemide (furosemide 20 mg oral tablet) Signed by Shannon Brambila APRN, CNP 12/04/2023 10:17:00 EST Approved with modifications: furosemide (FUROSEMIDE 20 MG Tablet) TAKE 1 TABLET EVERY DAY Qty: 90 tab(s) Days Supply: 90 Refills: 3 Substitutions Allowed Route To Pharmacy - [facility] Signed by Shannon Brambila APRN, CNP [facility] 08-14-2023 Note - From: Day Yi ([facility] ([facility])) To: Marco Bosch DO; Sent: 08/14/2023 14:14:56 EDT Subject: Med Management Caller Name: EVGENY DELGADO; Caller Number: , M Caller is: ( X ) Patient ( ) Mother ( ) Father ( ) Pharmacy ( ) Other: Pharmacy to route Rx to: [facility] Patient's Provider: Reviewed Allergies: ( ) Yes ( ) No Pharmacy: [facility] Comments: [facility] 1. Name of Medication: ALPRAZOLAM 0.5 Dosage: Dispense: ( ) New ( ) Refill Comment: 2. Name of Medication: Dosage: Dispense: ( ) New ( ) Refill Comment: 3. Name of Medication: Dosage: Dispense: ( ) New ( ) Refill Comment: 4. Name of Medication: Dosage: Dispense: ( ) New ( ) Refill Comment: ( ) OK to leave message on voice mail ( ) Patient told to expect return call: ( ) today ( ) tomorrow ( ) next work day ( ) Patient's email ( ) Other: Call back phone # now: until: Call back phone # later: Submitted: Order:ALPRAZolam (ALPRAZolam 0.5 mg oral tablet) 1 tab(s) PO HS Qty: 30 tab(s) Refills: 3 Substitutions Allowed Route To Pharmacy - [id number] Signed by Marco Bosch DO 08/14/2023 14:29:00 [facility] 02-27-2023 Note [facility] Subjective Evgeny Delgado is a 68 y.o. year old male patient being seen for severe aortic valve stenosis seen on echo last month per Pati Kennedy CNP. Denies chest pain. C/o new SOB with exertion and fatigue. Patient Active Problem List Diagnosis Acute systolic heart failure (CMS/HCC) Mitral valve stenosis and aortic valve stenosis Bicuspid aortic valve Carcinoma of prostate (CMS/HCC) Essential hypertension Macular dystrophy Nonischemic congestive cardiomyopathy (CMS/HCC) Diabetes mellitus type II, non insulin dependent (CMS/HCC) Paroxysmal ventricular tachycardia (CMS/HCC) Acute renal insufficiency Back pain CAD in [place] artery CHF (congestive heart failure) (CMS/HCC) Constipation COVID Dependent edema Diplopia Elevated PSA Erectile dysfunction Facioscapulohumeral muscular dystrophy (CMS/HCC) Gastroesophageal reflux disease Hyperkalemia Hyperlipidemia Hyponatremia Kidney stone FDC (current) use of aspirin FDC (current) use of oral hypoglycemic drugs FDC current use of therapeutic drug Muscular dystrophy (CMS/HCC) Personal history of nicotine dependence Physical deconditioning Prostate cancer (CMS/HCC) Pure hypercholesterolemia, unspecified Shortness of breath Transient cerebral ischemic attack, unspecified Family History Problem Relation Name Age of Onset Other (abdominal aortic aneurysm) Father Social History Tobacco Use Smoking status: Former Types: Cigarettes Smokeless tobacco: Never Substance Use Topics Alcohol use: Not Currently Drug use: Never HPI Evgeny is seen in follow-up. He is a 68-year-old man with history of coronary artery disease, nonischemic cardiomyopathy diagnosed in May 2022 when he was admitted with systolic heart failure with mildly reduced ejection fraction and cardiac catheterization showing nonobstructive coronary artery disease, bicuspid aortic valve, hypertension and hyperlipidemia, nonsustained ventricular tachycardia status post EP study for paroxysmal VT that showed no inducible tachycardia. He has prior history of reduced ejection fraction at 45%. Cardiac catheterization at that time showed mild to moderate coronary artery disease. He is maintained on medical therapy for heart failure. Recent echocardiogram showed ejection fraction to be in the normal range. He has muscular dystrophy and uses braces in the legs and a walker to assist with ambulation. today he is seen in follow-up. He denies chest pain and syncope. He reports that he has been having significant shortness of breath on [id number] exertion. NYHA class II-III. He has no leg edema. No palpitations. Review of Systems Constitutional: Positive for malaise/fatigue. Cardiovascular: Positive for dyspnea on exertion. Musculoskeletal: Positive for back pain and muscle weakness. All other systems reviewed and are negative. Objective Visit Vitals BP 126/82 (BP Location: Left arm, Patient Position: Sitting) Pulse 90 Ht 1.778 m (5' 10 ) Wt 92.1 kg (203 lb) SpO2 97% BMI 29.13 kg/m??? Smoking Status Former BSA 2.13 m??? Physical Exam Constitutional: Appearance: He is well-developed. He is not ill-appearing. HENT: Head: Normocephalic and atraumatic. Nose: Nose normal. Eyes: General: No scleral icterus. Pupils: Pupils are equal, round, and reactive to light. Neck: Thyroid: No thyromegaly. Vascular: No JVD. Cardiovascular: Rate and Rhythm: Normal rate and regular rhythm. Pulses: Radial pulses are 2+ on the right side and 2+ on the left side. Heart sounds: Murmur heard. Systolic (RUSB) murmur is present with a grade of 3/6. No friction rub. No gallop. Pulmonary: Effort: Pulmonary effort is normal. No respiratory distress. Breath sounds: Normal breath sounds. No wheezing or rales. Chest: Chest wall: No tenderness. Abdominal: General: Bowel sounds are normal. There is no distension. Palpations: Abdomen is soft. Tenderness: There is no abdominal tenderness. Musculoskeletal: General: No swelling. Cervical back: Neck supple. Right lower le+ Pitting Edema present. Left lower le+ Pitting Edema present. Comments: Braces in the legs noted. Uses a walker to assist with ambulation Skin: General: Skin is warm and dry. Neurological: General: No focal deficit present. Mental Status: He is alert and oriented to person, place, and time. Psychiatric: Mood and Affect: Mood normal. Behavior: Behavior is cooperative. Judgment: Judgment normal. Allergies Allergies Allergen Reactions Cephalosporins Januvia [Sitagliptin] Levofloxacin Lorabid [Loracarbef] Oxycodone Penicillins Tamiflu [Oseltamivir] Vicodin [Hydrocodone-Acetaminophen] Medications Current Outpatient Medications: allopurinol (Zyloprim) 300 mg tablet, Take 300 mg by mouth in the morning., Disp: , Rfl: aspirin 81 mg EC tablet, Take (more content not included)... [facility] 12-21-2022 Note Cardiovascular Medic [facility] SUBJECTIVE Chief Complaint Patient presents with Coronary Artery Disease Congestive Heart Failure Hypertension Valve Disorder Evgeny Delgado is a 67 y.o. male here for follow-up. HPI PMHx: CAD, NICM, bicuspid aortic valve, HTN, and HLD; NSVT s/p EP study for paroxysmal VT He has been feeling well. At his last visit, he was advised to increase his Toprol to 25mg BID. He did not do this because we had recently decreased the dose d/t hypotension. He states his BP at home has been well controlled running 120s/70s. He had some issues with leg swelling and his PCP started him on lasix 20mg daily. Leg swelling now resolved. He denies CP, dyspnea, orthopnea, PND, dizziness/LH, palpitations. Patient Active Problem List Diagnosis Acute systolic heart failure (CMS/HCC) Mitral valve stenosis and aortic valve stenosis Bicuspid aortic valve Carcinoma of prostate (CMS/HCC) Essential hypertension Macular dystrophy Nonischemic congestive cardiomyopathy (CMS/HCC) Diabetes mellitus type II, non insulin dependent (CMS/HCC) Paroxysmal ventricular tachycardia Acute renal insufficiency Back pain CAD in [place] artery CHF (congestive heart failure) (CMS/HCC) Constipation COVID Dependent edema Diplopia Elevated PSA Erectile dysfunction Facioscapulohumeral muscular dystrophy (CMS/HCC) Gastroesophageal reflux disease Hyperkalemia Hyperlipidemia Hyponatremia Kidney stone 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 Muscular dystrophy (CMS/HCC) Personal history of nicotine dependence Physical deconditioning Prostate cancer (CMS/HCC) Pure hypercholesterolemia, unspecified Shortness of breath Transient cerebral ischemic attack, unspecified Past Medical History: Diagnosis Date Cancer (CMS/HCC) CHF (congestive heart failure) (CMS/HCC) Coronary artery disease Diabetes mellitus (CMS/HCC) Heart valve disease Hyperlipidemia Hypertension Nonischemic cardiomyopathy (CMS/HCC) Family History Problem Relation Name Age of Onset Other (abdominal aortic aneurysm) Father Social History Tobacco Use Smoking status: Former Types: Cigarettes Smokeless tobacco: Never Substance Use Topics Alcohol use: Not Currently Drug use: Never Allergies Allergen Reactions Cephalosporins Januvia [Sitagliptin] Levofloxacin Lorabid [Loracarbef] Oxycodone Penicillins Tamiflu [Oseltamivir] Vicodin [Hydrocodone-Acetaminophen] ROS Musculoskeletal: Positive for back pain and muscle weakness. All other systems reviewed and are negative. OBJECTIVE Visit Vitals BP 123/78 (BP Location: Left arm, Patient Position: Sitting) Pulse 93 Ht 1.778 m (5' 10 ) Wt 92.1 kg (203 lb) SpO2 94% BMI 29.13 kg/m??? Smoking Status Former BSA 2.13 m??? Medications: Current Outpatient Medications: allopurinol (Zyloprim) 300 mg tablet, Take 300 mg by mouth in the morning., Disp: , Rfl: aspirin 81 mg EC tablet, Take 81 mg by mouth in the morning., Disp: , Rfl: atorvastatin (Lipitor) 40 mg tablet, Take 40 mg by mouth at bedtime., Disp: , Rfl: furosemide (Lasix) 20 mg tablet, Take 20 mg by mouth in the morning., Disp: , Rfl: glyBURIDE micronized (Glynase) 6 mg tablet, Take 3 mg by mouth once daily as directed., Disp: , Rfl: metFORMIN (Glucophage) 500 mg tablet, Take 1,000 mg by mouth with breakfast and with evening meal., Disp: , Rfl: metoprolol succinate XL (Toprol-XL) 25 mg 24 hr tablet, Take 25 mg by mouth in the morning. Do not crush or chew., Disp: , Rfl: omeprazole (PriLOSEC) [address] capsule, Take 20 mg by mouth before breakfast. Do not crush or chew., Disp: , Rfl: sacubitriL-valsartan (Entresto) 24-26 mg tablet, Take 1 tablet by mouth in the morning and at bedtime., Disp: 180 tablet, Rfl: 3 Physical Exam Constitutional: Appearance: Normal appearance. He is normal weight. Comments: Ambulates with walker HENT: Head: Normocephalic and atraumatic. Right Ear: External ear normal. Left Ear: External ear normal. Eyes: Extraocular Movements: Extraocular movements intact. Pupils: Pupils are equal, round, and reactive to light. Neck: Vascular: No carotid bruit. Cardiovascular: Rate and Rhythm: Normal rate and regular rhythm. Pulses: Normal pulses. Heart sounds: Normal heart sounds. Pulmonary: Effort: Pulmonary effort is normal. Breath sounds: Normal breath sounds. Abdominal: General: Bowel sounds are normal. Palpations: Abdomen is soft. Musculoskeletal: General: Normal range of motion. Cervical back: Neck supple. Right lower leg: No edema. Left lower leg: No edema. Skin: General: Skin is warm and dry. Neurological: General: No focal deficit present. Mental Status: He is alert and oriented to person, place, and time. Psychiatric: Mood and Affect: Mood normal. Behavior: Behavior normal (more content not included)... [facility] 12-21-2022 Note Patient here for 3 m o follow up valve disorder, NICM, and hypertension. Metoprolol was increased at last visit in Aug 2022, but he said he did not make the increase. PCP put him on lasix a few weeks ago he said for LE edema. Has not had recent labs. He denies chest pain, SOB, and palpitations. LE edema has resolved he says. Review of Systems Musculoskeletal: Positive for back pain and muscle weakness. All other systems reviewed and are negative. [facility] 09-01-2022 Note Subjective Evgeny Delgado is a 67 y.o. year old male patient with CAD, NICM, bicuspid aortic valve, HTN, and HLD seen in follow-up s/p EP study for paroxysmal VT. He reports he has been doing quite well, weighs himself daily with stable weights. He has occasionally taken Lasix PRN for ankle edema. Denies chest pain, palpitations, orthopnea, PELLETIER, or PND. Patient Active Problem List Diagnosis Acute systolic heart failure (CMS/HCC) Mitral valve stenosis and aortic valve stenosis Bicuspid aortic valve Carcinoma of prostate (CMS/HCC) Essential hypertension Macular dystrophy Nonischemic congestive cardiomyopathy (CMS/HCC) Diabetes mellitus type II, non insulin dependent (CMS/HCC) Paroxysmal ventricular tachycardia Family History Problem Relation Name Age of Onset Other (abdominal aortic aneurysm) Father Social History Tobacco Use Smoking status: Former Types: Cigarettes Smokeless tobacco: Never Substance Use Topics Alcohol use: Not Currently Drug use: Never Review of Systems Constitutional: Negative. Cardiovascular: Positive for dyspnea on exertion and leg swelling. Negative for chest pain, near-syncope, orthopnea, palpitations, paroxysmal nocturnal dyspnea and syncope. Respiratory: Negative. Endocrine: Negative. Musculoskeletal: Positive for back pain and muscle weakness. Genitourinary: Negative. Neurological: Negative. Psychiatric/Behavioral: Negative. Objective Visit Vitals BP 118/76 (BP Location: Left arm, Patient Position: Sitting) Pulse 82 Ht 1.778 m (5' 10 ) Wt 89.4 kg (197 lb) SpO2 99% BMI 28.27 kg/m??? Smoking Status Former BSA 2.1 m??? Physical Exam General: Awake, alert, NAD Neck: No elevated JVP. No carotid bruit Pulm: Breath sounds clear to ascultation bilaterally with no wheeze, crackles or rhonchi Cards: Regular rate and rhythm, S1, S2. No S3 or S4 gallop. Murmur: grade II/ PARISH Abd: Soft, Nontender, physiologic bowel sounds are present Extr: Lower extremity edema: 1+, leg braces on Skin: warm, dry, well perfused Neuro: A&Ox3, No gross deficits Allergies Allergies Allergen Reactions Cephalosporins Januvia [Sitagliptin] Levofloxacin Lorabid [Loracarbef] Oxycodone Penicillins Tamiflu [Oseltamivir] Vicodin [Hydrocodone-Acetaminophen] Medications Current Outpatient Medications: allopurinol (Zyloprim) 300 mg tablet, Take 300 mg by mouth in the morning., Disp: , Rfl: aspirin 81 mg EC tablet, Take 81 mg by mouth in the morning., Disp: , Rfl: atorvastatin (Lipitor) 40 mg tablet, Take 40 mg by mouth at bedtime., Disp: , Rfl: glyBURIDE micronized (Glynase) 6 mg tablet, Take 3 mg by mouth once daily as directed., Disp: , Rfl: metFORMIN (Glucophage) 500 mg tablet, Take 1,000 mg by mouth with breakfast and with evening meal., Disp: , Rfl: metoprolol succinate XL (Toprol-XL) 25 mg 24 hr tablet, Take 25 mg by mouth in the morning. Do not crush or chew., Disp: , Rfl: omeprazole (PriLOSEC) [address] capsule, Take 20 mg by mouth before breakfast. Do not crush or chew., Disp: , Rfl: sacubitriL-valsartan (Entresto) 24-26 mg tablet, Take 1 tablet by mouth in the morning and at bedtime., Disp: 180 tablet, Rfl: 3 Recent Labs Most recent labs reviewed- unremarkable Imaging and other tests TTE: 05/18/2022 Limited study with poor sound transmission LV systolic function appears mildly reduced. LVEF is around 45% RV systolic function appears mildly reduced Aortic valve is likely bicuspid and heavily calcified. Mod aortic stenosis Left and Right Heart Catheterization: 05/24/2022 Hemodynamics AO: 110/74, RA: 4, RV: 42/0 (4), PA: 42/16 (28), PCWP: 20, PPD 8, CO: 6.57, CI: 3.19 LM: No sig stenois LAD/LCX: mild plaque and luminal irregularities throughout RCA: Dominant; proximal 40% stenosis, PDA mid vessel 40-50% stenosis Event Monitor: 06/06-07/07 NSVT on many occassions No patient triggered events PVC <1% burden EP Study: 1. EP study with ano no inducible VT 2. No inducible tachycardia Assessment/Plan Diagnoses and all orders for this visit: Bicuspid aortic valve Non-ischemic cardiomyopathy (CMS/HCC) - sacubitriL-valsartan (Entresto) 24-26 mg tablet; Take 1 tablet by mouth in the morning and at bedtime. Paroxysmal ventricular tachycardia Essential hypertension Nonischemic congestive cardiomyopathy (CMS/HCC) Mitral valve stenosis and aortic valve stenosis NICM NYHA class II -Compensated, we discussed titration of medications to target GDMT -His Spironolactone was previously discontinued due to hyperkalemia -He has also failed to tolerate higher dose Metoprolol XL due to labile Bps -He is overall hesitant to medication changes -Agreeable to increasing Metoprolol to 50 mg and monitoring BP BID, he will call within the next several days to update us -Consider addition of SGLT2i at follow-up, previous use inhibited by cost -Continue Entresto 24/26mg BID -We discussed cardiac (more content not included)... [facility] 09-01-2022 Note Patient here for fol low up EP study. Review of Systems Musculoskeletal: Positive for back pain and muscle weakness. All other systems reviewed and are negative. [facility] 08-08-2022 Note COMPREHENSIVE EP VEL DY PROCEDURE NOTE DATE OF PROCEDURE: 08/08/2022 PERFORMING PHYSICIAN: Dr. Mohan Cam SUB PRIOR: None INDICATIONS FOR PROCEDURE: 1. History of NSVT. 2. Cardiomyopathy CONSENT: Patient LOCATION: EP Lab PROCEDURAL SEDATION: Versed and Fentanyl. Monitoring: Cardiac telemetry, Blood pressure, continuous pulse oxymetry. Moderate sedation was administered by the sedation nurse under my supervision. Intraprocedural face to face sedation time: 52min. FLUOROSCOPY: 6min 32sec/ 61mGray PREPARATION: Preoperative antibiotics was administered. PROCEDURES PERFORMED: 1. Ultrasound guided vascular access for 5Fx1 venous sheaths as documented below in procedure note and image stored in PACS. 2. Comprehensive EP study which includes right atrial recording and pacing, His bundle recording and right ventricular recording and pacing. INDICATION: 67 year old with past medical history of Facioscapulohumeral muscular dystrophy, nonischemic cardiomyopathy on a recent echo, bicuspid aortic valve, diabetes mellitus type 2, hypertension was recently admitted to [facility] for heart failure symptoms. He was treated with diuretics and subsequently cardiac cath was done to evaluate his low EF of 45% which did not reveal any singificant CAD. His pulmonary capillary wedge pressures was 20 mmHg and started on diuretics and subsequently discharged. He had an event monitor that was placed which revealed nonsustained ventricular tachycardia and so was brought for EP study for risk stratification. PROCEDURE NOTE: The risks, benefits and alternatives of the procedure were discussed with the patient and family who agreed to proceed. Please refer to my office consult note for details of the discussion and of indications. Patient was brought to the EP lab in the post absorptive state. A procedural pause was performed verifying the patient, the procedure. The right groin was prepped and draped in the usual sterile fashion. Preoperative antibiotics was administered. Ultrasound was used to image the right femoral veins and it was noted to be patent and this was used for vessel entry as noted below. After infiltration with 1% lidocaine, 2 venous sheath was placed in the right. Details of cathetersplaced as follows. RFV: 5Fx1 RV and then to His and then RV EP Cath: Trip Shelton/Tez Once catheter was in position, baseline intervals were noted as follows AH: 123ms, HV 57ms. 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 Baseline right ventricular programmed stimulation showed evidence of VA conduction. I performed VEST using 600ms and 400ms drive train. Singles, doubles and triple extra stimuli was introduced with no evidence of any ventricular tachycardia from RV apex as well as RVOT. Patient was noted to have sinus tachycardia and so atrial pacing was performed at 480ms drive train. No tachycardia could be induced. The patient appeared to tolerate the procedure well and was returned to his room in stable condition. No complications were immediately observed. AHms 123 HVms 57 VERPms 600/220, VA condunction+ AV Wenkebach ms 380 AH jump ms NA AVNERP ms 480/290 AERP ms 480/200 EBL: 15cc SPECIMEN REMOVED: None IMPRESSION: 1. EP study with ano no inducible VT 2. No inducible tachycardia RECOMMENDATIONS: 1 Follow up with EP as needed. Mohan Cam MD Cardiac Electrophysiology [facility] 08-08-2022 Note Patient: Evgeny bob Procedure Information Date/Time: 08/08/22 1330 Procedure: Electrophysiology procedure - non sustained VT Location: [facility] 1 EP / [facility] (Cath) Providers: Mohan Cam MD Clinical information reviewed: Physical Exam Airway Mallampati: II TM distance: >3 FB Neck ROM: full Cardiovascular Dental Pulmonary Abdominal Anesthesia Plan ASA 2 CSE Anesthetic plan and risks discussed with patient. Use of blood products discussed with patient who. Additional Equipment Requests [facility] 08-08-2022 Note [place] Cardiology Consul t Note Reason for Consultation: NSVT HPI: Evgeny Delgado is a 67 y.o. year old with past medical history of Facioscapulohumeral muscular dystrophy, nonischemic cardiomyopathy on a recent echo, bicuspid aortic valve, diabetes mellitus type 2, hypertension was recently admitted to [facility] for heart failure symptoms. He was treated with diuretics and subsequently cardiac cath was done to evaluate his low EF of 45% which did not reveal any singificant CAD. His pulmonary capillary wedge pressures was 20 mmHg and started on diuretics and subsequently discharged. He had an event monitor that was placed which revealed nonsustained ventricular tachycardia BMP 05/30/22: Cr. 1.19, BUN 41, K 4.7, GFR >60 PMH: 1. Acute systolic heart failure with reduced ejection fraction. 2. Nonischemic cardiomyopathy. 3. Moderate aortic stenosis. 4. Bicuspid aortic valve. 5. Type 2 diabetes mellitus. 6. Hypertension. 7. Dyslipidemia. 8. Muscular dystrophy. 9. Prostate cancer. PMH: No past medical history on file. PSH: Past Surgical History: Procedure Laterality Date CARDIAC CATHETERIZATION LITHOTRIPSY MUSCLE BIOPSY THYROID SURGERY SH: Social Determinants of Health Tobacco Use: Medium Risk Smoking Tobacco Use: Former Smokeless Tobacco Use: Never Alcohol Use: Not on file Financial Resource Strain: Not on file Food Insecurity: Not on file Transportation Needs: Not on file Physical Activity: Not on file Stress: Not on file Social Connections: Not on file Intimate Partner Violence: Not on file Depression: Not on file Housing Stability: Not on file Meds: No current facility-administered medications on file prior to encounter. Current Outpatient Medications on File Prior to Encounter Medication Sig Dispense Refill allopurinol (Zyloprim) 300 mg tablet Take 300 mg by mouth in the morning. aspirin 81 mg EC tablet Take 81 mg by mouth in the morning. atorvastatin (Lipitor) 40 mg tablet Take 40 mg by mouth in the morning. glyBURIDE micronized (Glynase) 6 mg tablet Take 3 mg by mouth once daily as directed. metFORMIN (Glucophage) 500 mg tablet Take 1,000 mg by mouth with breakfast and with evening meal. metoprolol succinate XL (Toprol-XL) 25 mg 24 hr tablet Take 25 mg by mouth in the morning. Do not crush or chew. omeprazole (PriLOSEC) [address] capsule Take 20 mg by mouth before breakfast. Do not crush or chew. sacubitriL-valsartan (Entresto) 24-26 mg tablet Take 1 tablet by mouth in the morning and at bedtime. ROS: Cardio Basic Cardiovascular Symptoms: no lightheadedness, no leg edema, no syncope, no orthopnea, no PND, no claudication, Constitutional Constitutional: no fever, no night sweats, no significant weight gain, no significant weight loss, no exercise intolerance Eyes Eyes: no dry eyes, no irritation, no vision change ENMT Ears: no difficulty hearing, no ear pain Nose: no frequent nosebleeds, Mouth/Throat: no sore throat, no bleeding gums, no snoring, no dry mouth, no mouth ulcers, no oral abnormalities, no teeth problems Respiratory Respiratory: no cough, no wheezing, no coughing up blood, no sleep apnea Musculoskeletal Musculoskeletal: no muscle aches, no muscle weakness, joint pain+, no back pain, no swelling in the extremities Integumentary Skin no rash, no ulcer, no varicosities, no discoloration, no pruritus Neurologic Neurologic: no loss of consciousness, no weakness, no numbness, no seizures, no dizziness, no headaches Psychiatric Psych: no depression, feeling safe in relationship, no alcohol abuse, Hematologic/Lymphatic Hematologic/Lymphatic no swollen glands, no bruising Physical Exam: Constitutional General Appearance: well-nourished, well-developed, appears stated age Level of Distress: comfortable Psychiatric Mental Status: alert, normal affect Orientation: oriented to time, place, and person Insight: good judgement Eyes Lids and Conjunctivae: non-injected, no xanthelasma ENMT Ears: no lesions on external ear Nose: no lesions on external nose Oropharynx: no cyanosis, no pallor Neck Neck: supple, trachea midline Carotid Arteries: bilateral normal upstroke, no bruits Jugular Veins: normal jugular venous pressure Thyroid: not enlarged Lungs Respiratory Effort: unlabored Chest Exam: normal curvature, no thoracic deformity Auscultation: clear, no wheezing, no rales, no rhonchi Cardiovascular Rate And Rhythm: regular Heart Sounds: normal S1, normal s2, no gallop Systolic Murmur: not heard Diastolic Murmur: not heard Extremities: no cyanosis, no edema, no peripheral signs of emboli Peripheral Pulses Radial Pulse: normal Abdomen Inspection and Palpation: soft, non distended, no bruit, non tender Musculoskeletal Inspection: no joint swelling Neurologic Gait: normal gait Skin Inspection and Palpation: warm and dry Nails: no clubbing Labs: @LABRESULTS@ EKG: (more content not included)... [facility] 07-05-2022 Note [place] Cardiology Consul t Note Reason for Consultation: NSVT HPI: Evgeny Delgado is a 67 y.o. year old with past medical history of Facioscapulohumeral muscular dystrophy, nonischemic cardiomyopathy on a recent echo, bicuspid aortic valve, diabetes mellitus type 2, hypertension was recently admitted to [facility] for heart failure symptoms. He was treated with diuretics and subsequently cardiac cath was done to evaluate his low EF of 45% which did not reveal any singificant CAD. His pulmonary capillary wedge pressures was 20 mmHg and started on diuretics and subsequently discharged. He had an event monitor that was placed which revealed nonsustained ventricular tachycardia BMP 05/30/22: Cr. 1.19, BUN 41, K 4.7, GFR >60 PMH: No past medical history on file. 1. Acute systolic heart failure with reduced ejection fraction. 2. Nonischemic cardiomyopathy. 3. Moderate aortic stenosis. 4. Bicuspid aortic valve. 5. Type 2 diabetes mellitus. 6. Hypertension. 7. Dyslipidemia. 8. Muscular dystrophy. 9. Prostate cancer. PSH: Past Surgical History: Procedure Laterality Date CARDIAC CATHETERIZATION LITHOTRIPSY MUSCLE BIOPSY THYROID SURGERY SH: Social Determinants of Health Tobacco Use: Medium Risk Smoking Tobacco Use: Former Smokeless Tobacco Use: Never Alcohol Use: Not on file Financial Resource Strain: Not on file Food Insecurity: Not on file Transportation Needs: Not on file Physical Activity: Not on file Stress: Not on file Social Connections: Not on file Intimate Partner Violence: Not on file Depression: Not on file Housing Stability: Not on file Meds: Current Outpatient Medications on File Prior to Visit Medication Sig Dispense Refill allopurinol (Zyloprim) 300 mg tablet Take 300 mg by mouth in the morning. aspirin 81 mg EC tablet Take 81 mg by mouth in the morning. atorvastatin (Lipitor) 40 mg tablet Take 40 mg by mouth in the morning. furosemide (Lasix) 40 mg tablet Take 40 mg by mouth in the morning and at bedtime. glyBURIDE micronized (Glynase) 6 mg tablet Take 6 mg by mouth with breakfast and with evening meal. metFORMIN (Glucophage) 500 mg tablet Take 1,000 mg by mouth with breakfast and with evening meal. metoprolol succinate XL (Toprol-XL) 25 mg 24 hr tablet Take 25 mg by mouth in the morning. Do not crush or chew. metoprolol succinate XL (Toprol-XL) 50 mg 24 hr tablet Take 50 mg by mouth in the morning. Do not crush or chew. nirmatrelvir-ritonavir (Paxlovid, EUA,) 300 mg (150 mg x 2)-100 mg tablets,dose pack Take by mouth. omeprazole (PriLOSEC) [address] capsule Take 20 mg by mouth before breakfast. Do not crush or chew. potassium chloride CR (Klor-Con M10) 10 mEq ER tablet Take 10 mEq by mouth in the morning. Do not crush or chew. sacubitriL-valsartan (Entresto) 24-26 mg tablet Take 1 tablet by mouth in the morning and at bedtime. spironolactone (Aldactone) 25 mg tablet Take by mouth in the morning. No current facility-administered medications on file prior to visit. ROS: Cardio Basic Cardiovascular Symptoms: no lightheadedness, no leg edema, no syncope, no orthopnea, no PND, no claudication, Constitutional Constitutional: no fever, no night sweats, no significant weight gain, no significant weight loss, no exercise intolerance Eyes Eyes: no dry eyes, no irritation, no vision change ENMT Ears: no difficulty hearing, no ear pain Nose: no frequent nosebleeds, Mouth/Throat: no sore throat, no bleeding gums, no snoring, no dry mouth, no mouth ulcers, no oral abnormalities, no teeth problems Respiratory Respiratory: no cough, no wheezing, no coughing up blood, no sleep apnea Musculoskeletal Musculoskeletal: swelling in the extremities+, weakness from dystrophy Integumentary Skin no rash, no ulcer, no varicosities, no discoloration, no pruritus Neurologic Neurologic: muscle weakness that is chronic Psychiatric Psych: no depression, feeling safe in relationship, no alcohol abuse, Hematologic/Lymphatic Hematologic/Lymphatic no swollen glands, no bruising Physical Exam: Constitutional General Appearance: well-nourished, well-developed, appears stated age Level of Distress: comfortable Psychiatric Mental Status: alert, normal affect Orientation: oriented to time, place, and person Insight: good judgement Eyes Lids and Conjunctivae: non-injected, no xanthelasma ENMT Ears: no lesions on external ear Nose: no lesions on external nose Oropharynx: no cyanosis, no pallor Neck Neck: supple, trachea midline Carotid Arteries: bilateral normal upstroke, no bruits Jugular Veins: normal jugular venous pressure Thyroid: not enlarged Lungs Respiratory Effort: unlabored Chest Exam: normal curvature, no thoracic deformity Auscultation: clear, no wheezing, no rales, no rhonchi Cardiovascular Rate And Rhythm: regular Heart Sounds: normal S1, normal s2, no gallop Systolic Murmur: not heard Diastolic Mu (more content not included)... [facility] 05-26-2022 Note MR#: [id number] I [facility] Pt. Name: Evgeny Delgado Admitted: 05/21/2022 Discharged: 05/26/2022 Date of : 1955 Physician: Payal Gamble MD DISCHARGE SUMMARY FINAL DIAGNOSES: 1. Acute systolic heart failure with reduced ejection fraction. 2. Nonischemic cardiomyopathy. 3. Moderate aortic stenosis. 4. Bicuspid aortic valve. 5. Type 2 diabetes mellitus. 6. Hypertension. 7. Dyslipidemia. 8. Muscular dystrophy. 9. Prostate cancer. HISTORY OF PRESENT ILLNESS AND HOSPITALIZATION COURSE: The patient is a 67-year-old male. He presented initially to [facility] with complaints of increased lower extremity swelling and increased shortness of breath. These symptoms started on him a month ago prior to his presentation. He was seen by his PCP who recommended for him to be evaluated in the ER. The patient was having orthopnea and paroxysmal nocturnal dyspnea. Evaluation in the emergency department over there was compatible with congestive heart failure. The patient has no history of congestive heart failure. Cardiology was consulted and they recommended a transfer to our facility for further evaluation. The patient was admitted to the step-down unit. He was seen by the Cardiology Services. He was started on IV Lasix. He was having good urine output and improving with that. His ejection fraction as per the echocardiogram done at [facility] showing an EF of 40 to 45%. Cardiology did leave and right heart catheterization on him on May 24, which showed mild coronary artery disease. Not requiring stents. His pulmonary capillary wedge pressure was found to be 20. The patient was continued on IV diuretics. On the day of the discharge, he was put on oral Lasix. He was evaluated for oxygen supplement at home. The patient agrees to that. Cardiology evaluated him on the day of the discharge, and they were agreeable on the discharge. They scheduled him for Heart failure Clinic appointment on June 02, 2022. The patient was educated about his new diagnosis and the need for close followup about with the Heart Clinic. He was discharged home in stable condition on June 02, 2022. PHYSICAL EXAM ON DAY OF DISCHARGE: As follows: GENERAL: He is alert male and nontoxic appearing. HEENT: Pupils round, reactive to light. Extraocular movements intact. Mucous membranes moist. NECK: Supple. No JVD. No LAD. HEART: S1, S2. Regular rate and rhythm. No murmurs. ABDOMEN: Soft, nontender, nondistended. Positive bowel sounds. MEDICATIONS ON DISCHARGE: As per the medication reconciliation list. INSTRUCTIONS ON DISCHARGE: He was instructed to seek medical attention if he develop any worsening of his symptoms including increased shortness of breath and to keep his appointment with Cardiology. TIME OF DISCHARGE: 45 minutes. Electronically Signed by: Payal Gamble MD 05/27/2022 01:50 P __ Payal Gamble MD Date Dict: 05/26/2022/12:52 P/Payal Gamble MD Date Trans: 05/26/2022 07:35 P/tonio [id number] cc: Chirag Ragsdale [address] [place] [id number] George Nieto M.D. [address] [place] [id number] [facility] 02-09-2022 Note HNO ID: [id number] Author: Ebonie Keyes APRN.INTERNET PROJECT MANAGER Service: ? Author Type: Nurse Practitioner Type: Progress Notes Filed: 02/09/2022 2:12 PM Note Text: Telemedicine Visit - Distance Health Virtual Visit Note Patient seen on [employer] platform. Location of patient: [place] History of Present Illness Evgeny Delgado is a 66 year old year old male who presents for the past 5 days with symptoms that are:gradually worsening. Ear pain, sore throat, sinus congestion, PND, minor sxs Sat but progressed and worsened on Monday Taking benadryl, otc cough drops, tylenol Sinus drainage is clear, cough worse at night when laying down COVID tested: no COVID VACCINE: yes Symptoms include: See above Oral intake: ok Tobacco use: No Second hand smoke exposure: No Recent exposure to strep:No Sick contacts: no Recent travel: no OTC meds/remedies that patient has tried: see above . No past medical history on file. No past surgical history on file. No family history on file. Social History Tobacco Use - Smoking status: Not on file - Smokeless tobacco: Not on file Substance Use Topics - Alcohol use: Not on file - Drug use: Not on file Current Outpatient Medications Medication Sig - sulfamethoxazole-trimethoprim (BACTRIM DS,SEPTRA DS) 800-160 mg per tablet Take 1 tablet by mouth twice daily. - simvastatin (ZOCOR) 40 mg tablet - potassium citrate ER (UROCIT-K) 10 mEq (1,080 mg) - omeprazole (PRILOSEC) 20 mg capsule - Multivitamin capsule Take 1 capsule by mouth once daily. - metFORMIN (GLUCOPHAGE) 500 mg tablet - losartan (COZAAR) 50 mg tablet - glyBURIDE micronized (GLYNASE) 1.5 mg tablet Take 1.5 mg by mouth. - Glucosamine-Chondroitin 500-400 mg tablet Take 1 tablet by mouth. - aspirin, enteric coated (ASPIRIN, ENTERIC COATED) 81 mg EC tablet Take 81 mg by mouth. - allopurinol (ZYLOPRIM) 300 mg tablet - benzonatate (TESSALON PERLES) 100 mg capsule Take 1-2 capsules by mouth three times daily as needed for cough. No current facility-administered medications for this visit. ALLERGIES Allergen Reactions - Cephalosporins Shortness of Breath - Loracarbef Shortness of Breath - Oxycodone Shortness of Breath - Penicillins Shortness of Breath - Acetohydroxamic Acid Unknown - Cyclobenzaprine Unknown constipation - Hydrocodone-Acetami* Unknown - Levofloxacin Hives - Oseltamivir Unknown Excess fluid loss - Sitagliptin Hives - Tramadol Other: See Comments constipation Video Exam (Examination performed via Video enabled technology) General appearance Alert, oriented, pleasant, in NAD: Yes Ill appearing: No Lethargic appearing: No HEENT Eyes: Sclera clear :Yes Conjunctiva without erythema :Yes Frontal sinus tenderness by self palpation;No Maxillary sinus tenderness by self palpation :No Ears: Tragus / outer ear tenderness by self palpation :No Tender cervical adenopathy by self palpation :No Oropharynx: unable to visualize PULMONARY Respiratory distress: No Coughing noted: No Audible wheezing noted: No ====== Sinusitis: >3-4 days: Worsening after 3-4 days , lasting 5-6 days: yes >10 days not improving: Fever > or equal to 102 or worsening fever : no; temp Purulent nasal discharge no Worsening nasal discharge after initial improvement of URI: Facial pain no Day time cough: no ASSESSMENT/PLAN: 1. URI, acute - ICD9: 465.9, ICD10: J06.9 - Discussed viral etiology and rationale for treatment. - Symptomatic treatment with prn analgesia - Supportive care with fluids and rest - The patient may also use OTC decongestants prn, warm salt water gargles, throat lozenges and/or OTC throat spray as needed, nasal saline gtts and suction prn and Steroid nasal spray . - Follow up in 3-5 days if symptoms persist or sooner if worsening of symptoms Ebonie Keyes APRN.CNP - Reviewed OTC medications and supplements to help w/ sxs - Encouraged good hydration, handwashing and use of humidified air - Encouraged REST - Red flags discussed for need for in person care - All questions answered Ebonie Keyes APRN.CNP If you let us know who your primary care provider is, we will send them a notification of today?s visit through our electronic medical records system. Since not all providers have access to our notifications, we strongly encourage you to share the following record of today?s visit with your primary care provider at your next visit. This will help in providing you the best care. [facility] 02-09-2022 Instructions Ebonie Keyes APRN.INTERNET PROJECT MANAGER - 02/09/2022 2:11 PM EDT Images from the original note were not included. Adult Sinusitis Patient Education What is Sinusitis? Sinusitis [[id number]] is inflammation of the sinuses or swelling of the lining of the sinus cavity or nose. During an infection the sinuses become blocked with fluid causing swelling of the lining of the sinuses. Symptoms: (viral and bacterial infections) Stuffy nose Runny nose Postnasal drip Fever Toothache Headache Tiredness Cough Sore throat Face and head pressure and or pain Common causes: 98% of sinus infections are viral caused by viruses. Risk Factors of Sinusitis Include: Allergies, air pollution, indoor humidity and outdoor temperature changes, andstructural changes in the nose may contribute to sinus pain, pressure and congestion. When to get help? Temperature greater than 100.4 F Symptoms lasting more than 10 days or worsening symptoms greater than 7-10 days. If you do not improve or worsen after a course of antibiotics, you should be re-examined. Diagnosis and Treatment: Your healthcare provider will ask a number of questions about your symptoms and how long they have occurred. If symptoms of sinusitis persist greater than 10 days, it is possible you have a bacterial sinus infection and an antibiotic is prescribed. If it is viral, antibiotics will not help. You may be instructed to take [id number] medications for symptoms. including fever reducers acetaminophen or ibuprofen, nasal saline spray, cough and cold preparations and decongestants as prescribed by the physician, nurse practitioner or physician materials assistant. Self-Care and Prevention: Rest Fluids for hydration Good hand washing Humidifier Avoid smoking and exposure to second hand smoke Avoid sick contacts UPPER RESPIRATORY INFECTIONS Most cases are caused by viruses and most cases are mild, temporary, and harmless. Symptoms can last 2 to 3 weeks and can include: nasal congestion, sore throat, coughing, muscles aches, headaches, nausea, diarrhea, fatigue and fever. Now that you have been examined, if you are not feeling better within 2-3 weeks, please call back. In the meantime, please: 1. Drink plenty of fluids. 2. Get lots of rest. 3. Avoid dehydrants such as caffeine and alcohol. 4. Nasal saline is an effective decongestant and be used frequently throughout the day. 5. To loosen phlegm and help coughing, drink plenty of fluids and using a humidifier. 6. For sore throats, it is ok to use cough drops, throat sprays, or gargling warm salt water. 7. Always cover your mouth when you cough or sneeze, and wash your hands frequently. Avoid crowded areas like shopping centers, movies while you are sick so you don't bead picker a different virus, or infect others. 8. Avoid exposure to cigarettes or fumes. 9. Avoid irritants such as potpourri, dust, perfumes, scented candles and scented sprays 10. Air conditioning is an effective allergen and irritant avoidance strategy in the spring, summer and fall. 11. Honey is an effective cough suppressant. Try one tsp two to three times per day. The below information is from prescribersletter.Intelen: Antibiotics Will rarely help an upper respiratory infections. Antibiotics lead to more resistant infections that are harder to treat. There is little to no benefit to taking antibiotics for most acute upper respiratory tract infections. documented in this encounter [facility] 02-09-2022 History of Present illness Narrative Telemedicine Visit - Distance Health Virtual Visit Note Patient seen on [employer] platform. Location of patient: [place] History of Present Illness Evgeny Delgado is a 66 year old year old male who presents for the past 5 days with symptoms that are:gradually worsening. Ear pain, sore throat, sinus congestion, PND, minor sxs Sat but progressed and worsened on Monday Taking benadryl, otc cough drops, tylenol Sinus drainage is clear, cough worse at night when laying down COVID tested: no COVID VACCINE: yes Symptoms include: See above Oral intake: ok Tobacco use: No Second hand smoke exposure: No Recent exposure to strep:No Sick contacts: no Recent travel: no OTC meds/remedies that patient has tried: see above . No past medical history on file. No past surgical history on file. No family history on file. Social History Tobacco Use Smoking status: Not on file Smokeless tobacco: Not on file Substance Use Topics Alcohol use: Not on file Drug use: Not on file Current Outpatient Medications Medication Sig sulfamethoxazole-trimethoprim (BACTRIM DS,SEPTRA DS) 800-160 mg per tablet Take 1 tablet by mouth twice daily. simvastatin (ZOCOR) 40 mg tablet potassium citrate ER (UROCIT-K) 10 mEq (1,080 mg) omeprazole (PRILOSEC) 20 mg capsule Multivitamin capsule Take 1 capsule by mouth once daily. metFORMIN (GLUCOPHAGE) 500 mg tablet losartan (COZAAR) 50 mg tablet glyBURIDE micronized (GLYNASE) 1.5 mg tablet Take 1.5 mg by mouth. Glucosamine-Chondroitin 500-400 mg tablet Take 1 tablet by mouth. aspirin, enteric coated (ASPIRIN, ENTERIC COATED) 81 mg EC tablet Take 81 mg by mouth. allopurinol (ZYLOPRIM) 300 mg tablet benzonatate (TESSALON PERLES) 100 mg capsule Take 1-2 capsules by mouth three times daily as needed for cough. No current facility-administered medications for this visit. ALLERGIES Allergen Reactions Cephalosporins Shortness of Breath Loracarbef Shortness of Breath Oxycodone Shortness of Breath Penicillins Shortness of Breath Acetohydroxamic Acid Unknown Cyclobenzaprine Unknown constipation Hydrocodone-Acetami* Unknown Levofloxacin Hives Oseltamivir Unknown Excess fluid loss Sitagliptin Hives Tramadol Other: See Comments constipation Video Exam (Examination performed via Video enabled technology) General appearance Alert, oriented, pleasant, in NAD: Yes Ill appearing: No Lethargic appearing: No HEENT Eyes: Sclera clear :Yes Conjunctiva without erythema :Yes Frontal sinus tenderness by self palpation;No Maxillary sinus tenderness by self palpation :No Ears: Tragus / outer ear tenderness by self palpation :No Tender cervical adenopathy by self palpation :No Oropharynx: unable to visualize PULMONARY Respiratory distress: No Coughing noted: No Audible wheezing noted: No ====== Sinusitis: >3-4 days: Worsening after 3-4 days , lasting 5-6 days: yes >10 days not improving: Fever > or equal to 102 or worsening fever : no; temp Purulent nasal discharge no Worsening nasal discharge after initial improvement of URI: Facial pain no Day time cough: no ASSESSMENT/PLAN: 1. URI, acute - ICD9: 465.9, ICD10: J06.9 - Discussed viral etiology and rationale for treatment. - Symptomatic treatment with prn analgesia - Supportive care with fluids and rest - The patient may also use OTC decongestants prn, warm salt water gargles, throat lozenges and/or OTC throat spray as needed, nasal saline gtts and suction prn and Steroid nasal spray . - Follow up in 3-5 days if symptoms persist or sooner if worsening of symptoms Ebonie Keyes APRN.CNP - Reviewed OTC medications and supplements to help w/ sxs - Encouraged good hydration, handwashing and use of humidified air - Encouraged REST - Red flags discussed for need for in person care - All questions answered Ebonie Keyes APRN.CNP If you let us know who your primary care provider is, we will send them a notification of today s visit through our electronic medical records system. Since not all providers have access to our notifications, we strongly encourage you to share the following record of today s visit with your primary care provider at your next visit. This will help in providing you the best care. documented in this encounter [facility] 12-20-2021 Note HNO ID: [id number] Author: Jeanette Abdul APRN.LEYV Service: ? Author Type: Nurse Practitioner Type: Progress Notes Filed: 12/20/2021 7:01 PM Note Text: Telemedicine Visit - Distance Health Virtual Visit Note Patient seen on [employer] platform. Location of patient: [place] History of Present Illness Evgeny Delgado is a 66 year old year old male who presents for the past 1 week with symptoms that are:constant and gradually worsening. Symptoms include: Positive for Cough, Nasal congestion, Face pain/pressure, Headache and Sore throat, Negative for Fever, Chills/Sweats, SOB, Wheezing and Otalgia Oral intake: does not report decreased appetite or fluid intake Tobacco use: No Second hand smoke exposure: No Recent exposure to strep:No Sick contacts: No Recent travel: No OTC meds/remedies that patient has tried: Tylenol Denies concern for COVID-19 Patient COVID vaccinated? Yes, + booster. Current Outpatient Medications Medication Sig - sulfamethoxazole-trimethoprim (BACTRIM DS,SEPTRA DS) 800-160 mg per tablet Take 1 tablet by mouth twice daily. - simvastatin (ZOCOR) 40 mg tablet - potassium citrate ER (UROCIT-K) 10 mEq (1,080 mg) - omeprazole (PRILOSEC) 20 mg capsule - Multivitamin capsule Take 1 capsule by mouth once daily. - metFORMIN (GLUCOPHAGE) 500 mg tablet - losartan (COZAAR) 50 mg tablet - glyBURIDE micronized (GLYNASE) 1.5 mg tablet Take 1.5 mg by mouth. - Glucosamine-Chondroitin 500-400 mg tablet Take 1 tablet by mouth. - aspirin, enteric coated (ASPIRIN, ENTERIC COATED) 81 mg EC tablet Take 81 mg by mouth. - allopurinol (ZYLOPRIM) 300 mg tablet - azithromycin (ZITHROMAX) 250 mg tablet Take 2 tablets by mouth once daily for 1 day, THEN 1 tablet once daily for 4 days. - benzonatate (TESSALON PERLES) 100 mg capsule Take 1-2 capsules by mouth three times daily as needed for cough. No current facility-administered medications for this visit. ALLERGIES Allergen Reactions - Cephalosporins Shortness of Breath - Loracarbef Shortness of Breath - Oxycodone Shortness of Breath - Penicillins Shortness of Breath - Acetohydroxamic Acid Unknown - Cyclobenzaprine Unknown constipation - Hydrocodone-Acetami* Unknown - Levofloxacin Hives - Oseltamivir Unknown Excess fluid loss - Sitagliptin Hives - Tramadol Other: See Comments constipation Video Exam (Examination performed via Video enabled technology) General appearance: Alert, oriented, pleasant, in NAD :Yes Ill appearing :No Lethargic appearing :No Eyes: Sclera clear :Yes Conjunctiva without erythema :Yes Ears: Tragus / outer ear tenderness by self palpation :No Oropharynx: MMM Frontal sinus tenderness by self palpation;No Maxillary sinus tenderness by self palpation :Yes Tender cervical adenopathy by self palpation :No Respiratory distress :No Coughing noted :Yes Audible wheezing noted :No Centor Criteria - Age (2-14=+1, 15-44=0, >=45 -1): -1 - Tonsillar exudates: 0 - Tender anterior cervical adenopathy: 0 - Fever by history (>38 or 100.4): 0 - Absence of cough: 0 0 points- probability of strep is 1-2.5% 1 point- probability of strep is 5-10% 2 points- probability of strep is 11-17% 3 points- probability of strep is 28-35% 4 points- probability of strep is 51-53% ASSESSMENT/PLAN: 1. Acute respiratory infection - ICD9: 519.8, ICD10: J22 - Begin treatment with Azithromycin 500mg PO on day 1, then 250mg PO daily on days 2-5. - Tessalon Perles 100-200mg PO TID PRN cough. - Discussed medication dosage, usage, goals of therapy, and side effects. - Please follow up in-person if your symptoms persist or worsen. - Red Flag symptoms/when to seek in-person care discussed with the patient. Patient verbalized understanding. - AZITHROMYCIN 250 MG TABLET - BENZONATATE 100 MG CAPSULE -[email or web address].org/pat ient-[email or web address]/. This link shares information about when antibiotics may help and when they may not. - Red flags discussed for need for in person care - All questions answered Jeanette Abdul APRN.CNP If you let us know who your primary care provider is, we will send them a notification of today?s visit through our electronic medical records system. Since not all providers have access to our notifications, we strongly encourage you to share the following record of today?s visit with your primary care provider at your next visit. This will help in providing you the best care. If you do not have an established Primary Care physician and would like to continue care with a [facility] Primary Care physician, please ask your provider to place a Establish Primary Care order. Use [employer] to manage your care, wherever you are, 08/05, on your mobile device or computer. [employer] connects you to [employer] so you can access all your health information in one place and also schedule and request vir (more content not included)... [facility] Evaluation note Diagnosis URI, acute- Primary Acute upper respiratory infections of unspecified site [facility] Work Phone: Summary Purpose Family History No Family History Records FoundNo Family History Records FoundNo Family History Records FoundNo Family History Records FoundNo Family History Records FoundNo Family History Records FoundNo Family History Records Found Advance Directives No Advanced Directives Records Found Advance Directive Response Recorded Date/ Time Advance Directives No May 24 022 6:29pm Chief Complaint and Reason for Visit Chief Complaint shortness of breath, chf exacerbation Additional Source Comments Source Comments (unrecognize d section and content) In the event this informatio n is protected by the Federal Confidentiality of Alcohol and Drug Abuse Patient Records regulations: The Federal rules restrict any use of the information to criminally investigate or prosecute any alcohol or drug abuse patient.[facility] Reason for Visit (unrecogniz ed section and content) Reason Comments Upper Respiratory Infection (unrecognized sect ion and content) No Status Records FoundNo Status Records FoundNo Status Records FoundNo Status Records FoundNo Status Records FoundNo Status Records FoundNo Status Records Found INFORMATION SOURCE (unrecogn ized section and content) DATE CREATED AUTHOR 02/12/2022 [facility] DATE CREATED AUTHOR AUTHOR'S ORGANIZ ATION 06/08/2022 [facility] DATE CREATED AUTHOR AUTHOR'S ORGANIZ ATION 03/01/2023 [facility] DATE CREATED AUTHOR AUTHOR'S ORGANIZ ATION 03/27/2023 [facility] DATE CREATED AUTHOR AUTHOR'S ORGANIZ ATION 05/02/2023 [facility] DATE CREATED AUTHOR AUTHOR'S ORGANIZ ATION 07/03/2023 [facility] DATE CREATED AUTHOR AUTHOR'S ORGANIZ ATION 07/15/2024 [facility] Care Teams (unrecognized sec tion and content) Team Status: Inactive Member Role Status Dates Marco Bosch DO Primary Care Provider Active George Nieto MD Attending Provider Active Team Status: Active Member Role Status Dates Marco Bosch DO Primary Care Provider Active Goals (unrecognized section and content) Goals may be documented in a n alternate section FOR RECORDS PERTAINING TO PATIENTS WHO ARE OR HAVE BEEN ENROLLED IN A CHEMICAL DEPENDENCY/SUBSTANCEABUSE PROGRAM, SOME INFORMATION MAY BE OMITTED. This clinical summary was aggregated from multiple sources. Caution should be exercised in using it in the provision of clinical care. This summary normalizes information from multiple sources, and as a consequence, information in this document may materially change the coding, format and clinical context of patient data. In addition, data may be omitted in some cases. CLINICAL DECISIONS SHOULD BE BASED ON THE PRIMARY CLINICAL RECORDS. [employer] provides no warranty or guarantee of the accuracy or completeness of information in this document.
[2024-07-17 12:45] LABS: Alanine Aminotransferase 31 U/L (16-63); Albumin Globulin Ratio 1.1; Albumin Level 3.4 g/dL (3.4-5.0); Alkaline Phosphatase 81 U/L (46-116); Anion Gap 9.4; Aspartate Amino Transferase 15 U/L (15-37); BUN Creatinine Ratio 31.9; Bilirubin Total 1.2 mg/dL (0.2-1.0); Calcium 9.4 mg/dL (8.5-10.1); Carbon Dioxide 36.6 mmol/L (21.0-32.0); Chloride 97 mmol/L (98-107); Estimated GFR (African America >60 (>=60 mL/min/1.73m^2); Estimated GFR (Non-African Ame >60 (>=60 mL/min/1.73m^2); Globulin 3.2 g/dL; Glucose 201 mg/dL (74-106); Sodium 139 mmol/L (136-145); Total Protein 6.6 g/dL (6.4-8.2)
== END 2024-07-17 10:44 | disposition home or self-care (01) ==
LOC: LAB 10:43
PROVIDERS: PCP Family Medicine; Visit Provider Family Medicine
DX: E11.8 Type 2 diabetes mellitus with unspecified complications (principal)
CPT/HCPCS: 36415; 80053

== ENCOUNTER 2024-09-30 13:20 | Outpatient (OUT) | payer OTHER, MEDICARE, SELFPAY ==
[2024-09-30 13:41] LABS: Hemoglobin 15.1 g/dL (14.0-18.0)
--- NOTE | 2024-09-30 14:43 | RT_ITS ---
[facility] Test Date: 2024-09-30 Pat Name: EVGENY DELGADO Department: Room: - Gender: Male Polymerization Helper: Pablo Curran RRT : 1955 Requested By: Nelson Church Order Number: [id number] Reading MD: Nelson Church Interpretive Statements Pulmonary function testing was completed according to ATS criteria. Findings were considered accurate and reproducible. Both pre- and post-bronchodilator values utilized for spirometry. Spirometry (based on pre-bronchodilator values): -FEV1/FVC: Normal @ 85% -FEV1: Reduced @ 56% -FVC: Very severely reduced @ 48% -There is no significant bronchodilator response. Lung volumes by plethysmography (based on pre-bronchodilator values): -RV: Normal @ 116% -TLC: Mildly reduced @ 71% Diffusion capacity: -DLCO: Severe reduction @ 47% when corrected for Hb 15.1g/dL Flow-volume loop: -Severe restrictive pattern Impressions: -Spirometry suggests severe restriction, confirmed with reduced TLC. Severe diffusion impairment. Overall study is compatible with restrictive lung disease. Clinical correlation required. Electronically Signed On 10-01-2024 14:59:42 EST by Nelson Church
[2024-09-30] MEDS: ALBUTEROL SULFATE 2.5 MG/3 ML VIAL NEB IH (14:45)
== END 2024-09-30 13:21 | disposition home or self-care (01) ==
LOC: CARD 13:21
PROVIDERS: PCP Family Medicine; Visit Provider Internal Medicine
DX: G71.02 Facioscapulohumeral muscular dystrophy (principal); J98.6 Disorders of diaphragm
CPT/HCPCS: 36415; 85018; 94060; 94726; 94729

== ENCOUNTER 2024-12-25 10:54 | Outpatient (OUT) | payer OTHER, MEDICARE, SELFPAY ==
[2024-12-25 11:20] LABS: Estimated Average Glucose 183 mg/dL
== END 2024-12-25 10:55 | disposition home or self-care (01) ==
LOC: LAB 10:54
PROVIDERS: PCP Family Medicine; Visit Provider Family Medicine
DX: E11.8 Type 2 diabetes mellitus with unspecified complications (principal)
CPT/HCPCS: 36415; 83036

== ENCOUNTER 2025-04-03 21:20 | Inpatient (IN) | payer MEDICARE, OTHER, SELFPAY ==
--- OUTSIDE RECORDS SUMMARY | 2025-04-03 21:27 | XMS_ITS | CCD ---
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 Tender Name Role Phone Unavailable Primary Care Provider UnavailPAYAL Garcia Attending Unavailable MARCO BOSCH Primary Care Unavailable GEORGE NIETO Referring Unavailable ANDI LICEA Admitting Unavailable DO Marco Bosch Primary Care Provider MD George Nieto Attending Provider [phone] HIRO, DR LARA Primary Care Unavailable GAURAV, DR FABIAN Parada Consulting Unavailable LAMBERTO ., DR PLEITEZ Attending Unavailable LAMBERTO ., DR PLEITEZ Admitting Unavailable HOY ., DR PLEITEZ Consulting Unavailable GUERITA MAJOR Consulting Unavailable FALVO, JULIOCESAR Consulting Unavailable HIRO, DR LARA Primary Care Unavailable ANYA, DR CAROL Alcaraz Attending Unavailable KWAME ., [...] Unavailable HIRO, DR LARA Primary Care Unavailable [place], DR NAIMA Resendiz Consulting Unavailable HIRO, DR [...] Primary Care Unavailable DORINA, MOHAN Attending Unavailable STEPHEN KENNEDY Attending Unavailable RENE, CHRISTOPHER Attending Unavailable STEPHEN KENNEDY Attending Unavailable MOHAN CAM Admitting Unavailable DORINA, MOHAN Attending Unavailable DORINA, MOHAN Referring Unavailable DORINA, MOHAN Referring Unavailable HIRO, MARCO Primary Care Unavailable LOUISA CAICEDO Referring Unavailable HIRO, MARCO Primary Care Unavailable CHUCHO ROY Referring Unavailable HIRO, MARCO Primary Care Unavailable KVNG ALEMAN Consulting Unavailable OFELIA, RATIKA Admitting Unavailable OFELIA, RATIKA Attending Unavailable MONE CASILLAS Consulting Unavailable BALJINDER HUNG Consulting Unavailable CODY BOURNE Consulting Unavailable CHARLY TOWNSEND Consulting Unavailable THAISSUMANTH WALKER Consulting Unavailable OFELIA, RATIKA Consulting Unavailable HUSEINI, LOO Consulting Unavailable JESSIE MOHAMMNATHAN Admitting Unavailable ASHANTI BENITEZ Attending Unavailable HIRO, MARCO Primary Care Unavailable JILLIAN MELGOZA Consulting Unavaila ble CHARLY TOWNSEND Consulting Unavailable FERNANDA ROYEER Consulting Unavailable Marco Bosch Primary Care Unavailable Triston Perez Attending Unavailable Triston Perez Admitting Unavailable Marco Bosch MD Primary Care Provider [phone] Marco Bosch MD Primary Care Provider [phone] FABIAN ROOT Attending Unavailable FABIAN ROOT Referring Unavailable MARCO BOSCH Primary Care Unavailable MARCO BOSCH Primary Care Unavailable ARLETH MILLIGAN Admitting Unavailable ARLETH MILLIGAN Attending Unavailable TY RUSSELL Consulting Unavailable Marco Bosch Primary Care Unavailable Marco Bosch Attending Unavailable Marco Bosch Primary Care Unavailable Marco Bosch Attending Unavailable Marco Bosch Primary Care Unavailable Marco Bosch Attending Unavailable Marco Bosch Attending Unavailable Marco Bosch P Primary Care Unavailable Marco Bosch Attending Unavailable Marco Bosch Primary Care Unavailable Marco Bosch Primary Care Unavailable Marco Bosch Attending Unavailable Marco Bosch Primary Care Unavailable Marco Bosch Attending Unavailable Allergies Allergy Classification Reported Allergen(s) Allergy Type Date of Onset Reaction(s) Facility (4 sources) Acetaminophen / HYDROcodone; Translations: [HYDROCODONE-ACETAMINO PHEN] Drug Allergy 01-20-20 15 Unknown [facility] Work Phone: (5 sources) acetohydroxamic acid Drug Allergy 10-15-20 13 Unknown, Other (See Comments) [facility] Work Phone: (5 sources) Cephalosporins (Antibiotic); Translations: [CEPHALOSPORINS] Drug Allergy 10-15-20 13 Shortness of Breath [facility] Work Phone: (3 sources) cyclobenzaprine Drug Allergy 12-13-19 17 Unknown, Other (See Comments) [facility] Work Phone: [phone] (4 sources) levoFLOXacin; Translations: [LEVOFLOXACIN] Drug Allergy 12-13-19 17 [facility] Work Phone: (4 sources) loracarbef; Translations: [LORACARBEF] Drug Allergy 10-15-20 13 Shortness of Breath [facility] Work Phone: (2 sources) Oseltamivir; Translations: [OSELTAMIVIR] Drug Allergy 12-13-19 17 Unknown [facility] Work Phone: (4 sources) oxyCODONE; Translations: [OXYCODONE] Drug Allergy 10-15-20 13 Shortness of Breath [facility] Work Phone: [phone] (3 sources) Penicillins; Translations: [PENICILLINS] Drug Allergy 10-15-20 13 Shortness of Breath [facility] Work Phone: (4 sources) SITagliptin; Translations: [SITAGLIPTIN] Drug Allergy 12-13-19 17 [facility] Work Phone: [phone] (3 sources) traMADol Drug Allergy 12-13-19 17 Other: See Comments [facility] Work Phone: (2 sources) Acetaminophen / HYDROcodone Drug Allergy 01-20-20 15 [facility] Rep[facility] (2 sources) Cephalosporins (Antibiotic) Drug allergy (disorder) 10-15-20 13 [facility] (1 source) Ciprofloxacin Drug Allergy 05-21-20 22 [facility] (2 sources) guaiFENesin; Translations: [Mucinex] Drug Allergy 05-21-20 22 [facility] (2 sources) levoFLOXacin Drug Allergy 05-21-20 22 [facility] (2 sources) loracarbef Drug Allergy 10-15-20 13 [facility] (2 sources) oxyCODONE Drug Allergy 10-15-20 13 [facility] (2 sources) Penicillins Drug allergy (disorder) 10-15-20 13 [facility] (3 sources) SITagliptin; Translations: [Januvia] Drug Allergy 05-23-20 21 [facility] (1 source) Acetaminophen Drug Allergy 06-20-20 [facility] Repository (1 source) acetoHEXAMIDE Drug Allergy 06-20-20 [facility] Repository (1 source) Cephalosporins (Antibiotic) Drug allergy (disorder) 06-20-20 [facility] Rep[facility] (1 source) cyclobenzaprine Drug Allergy 06-20-20 [facility] Rep[facility] (1 source) guaiFENesin Drug Allergy 06-20-20 [facility] Repository (2 sources) hydroCHLOROthiazide; Translations: [hydroCHLOROthiazide] Drug Allergy 06-20-20 [facility] Rep[facility] (1 source) HYDROcodone Drug Allergy 06-20-20 [facility] (1 source) levoFLOXacin Drug Allergy 06-20-20 [facility] (1 source) loracarbef Drug Allergy 06-20-20 [facility] Rep[facility] (1 source) Oseltamivir Drug Allergy 06-20-20 [facility] Rep[facility] (1 source) oxyCODONE Drug Allergy 06-20-20 [facility] (1 source) Penicillins Drug allergy (disorder) 06-20-20 23 [facility] Rep[facility] (1 source) SITagliptin Drug Allergy 06-20-20 23 [facility] (1 source) traMADol Drug Allergy 06-20-20 23 [facility] (1 source) guaiFENesin Drug Allergy 04-05-20 23 Shortness Of Breath [facility] (2 sources) hydroCHLOROthiazide Drug Allergy 04-05-20 23 [facility] (2 sources) Oseltamivir Drug Allergy 12-13-19 17 [facility] (2 sources) Penicillins Propensity to adverse reactions to drug 10-15-20 13 Shortness Of Breath [facility] (1 source) cyclobenzaprine; Translations: [Flexeril] Drug Allergy [facility] Repository (1 source) levoFLOXacin; Translations: [Levaquin] Drug Allergy [facility] Rep[facility] (1 source) Oseltamivir; Translations: [Tamiflu] Drug Allergy [facility] Rep[facility] (1 source) oxyCODONE; Translations: [OxyCODONE Hydrochloride] Drug Allergy [facility] Repository (1 source) traMADol; Translations: [Ultram] Drug Allergy [facility] Rep[facility] Medications Current Medications Medication Drug Class(es) Dates Sig (Normalized) Sig (Original) albuterol 0.83 mg/ml inhalation solution (3 sources) beta2-Adrenergic Agonist Start: 02-10-2025 albuterol 0.833 mg/ml / ipratropium bromide 0.167 mg/ml inhalation solution (5 sources) Anticholinergic, beta2-Adrenergic Agonist Start: 02-11-2025 End: 02-28-2025 allopurinol 300 mg oral tablet (4 sources) Xanthine Oxidase Inhibitor Start: 12-01-2021 ALPRAZolam 0.5 mg oral tablet (4 sources) Benzodiazepine Start: 02-11-2025 Start: 02-10-2025 End: 02-10-2025 Start: 08-24-2023 Start: 08-24-2023 take 1 tablet by liz th at bedtime ALPRAZolam (XANAX) 0.5 MG tablet Take 1 tablet by mouth. at bedtime. 08/24/2023 Active aspirin 81 mg delayed release oral tablet (4 sources) Platelet Aggregation Inhibitor, Nonsteroidal Anti-inflammatory Drug Start: 02-11-2025 Start: 06-06-2022 Start: 06-06-2022 Aspirin 81 MG CAPS 81 mg 06/06/2022 Active aspirin, enteric coated (ASPIRIN, ENTERIC COATED) 81 mg EC tablet Take 81 mg by mouth. 0 Active Comment on above: Take 81 mg by mouth. atorvastatin 40 mg oral tablet (3 sources) HMG-CoA Reductase Inhibitor Start: 2 azelastine hydrochloride 0.137 mg/actuat metered dose nasal spray (1 source) Histamine-1 Receptor Antagonist Start: 2 End: 2 take 1 spray(s) nasal route twice daily azelastine (ASTELIN) 0.1% nasal spray Indications: URI, acute Use 1 Kendrick in each nostril twice daily for 7 days. 30 mL 0 02/09/2022 02/16/2022 Active Comment on above: Use 1 Kendrick in each nostril twice daily for 7 days. benzocaine 6 mg / menthol 10 mg oral lozenge (1 source) Standardized Chemical Allergen Start: 5 cetirizine hydrochloride 10 mg oral tablet (2 sources) Histamine-1 Receptor Antagonist Start: 5 Start: 2025 citalopram 20 mg oral tablet (4 sources) Serotonin Reuptake Inhibitor Start: 02-14-2025 Start: 02-11-2025 Start: 08-01-2023 End: 02-13-2025 Start: 08-01-2023 citalopram (CE ANNIKA) 20 MG tablet 08/01/2023 Active dapagliflozin 10 mg oral tab let (2 sources) Sodium-Glucose Cotransporter 2 Inhibitor Start: 04-20-2023 12 hr dextromethorphan hydrobromide 30 mg / guaiFENesin 600 mg extended release oral tablet (3 sources) Uncompetitive B-ewqtgj-R-aspartate Receptor Antagonist, Sigma-1 Agonist Start: 02-16-2025 Start: 02-09-2022 DM-GG/chlorph- DM-acetaminophen (CORICIDIN HBP DAY-NIGHT) 10- 200 mg(dy)/2 -15-500 mg(nt) TCSq Indications: cough , nasal congestion , rhinorrhea Per box instructions 0 02/09/2022 Active Comment on above: Per box instructions Drug or medicament (substance) (1 source) empagliflozin 10 mg oral tablet (1 source) Sodium-Glucose Cotransporter 2 Inhibitor Start: 02-12-20 0.4 ml enoxaparin sodium 100 mg/ml prefilled syringe (1 source) Low Molecular Weight Heparin Start: 02-12-20 fluticasone propionate 0.05 mg/actuat metered dose nasal spray (1 source) Corticosteroid Start: 02-10-20 End: 02-20-20 take 1 spray(s) nasal route once daily at bedtime fluticasone (FLONASE) 50 mcg/actuation nasal spray Indications: URI, acute Use 1 Kendrick in each nostril daily at bedtime for 10 days. 9.9 mL 0 02/09/2022 2022 Active Comment on above: Use 1 Kendrick in each nostril daily at bedtime for 10 days. glipiZIDE 5 mg oral tablet (3 sources) Sulfonylurea Start: 02-12-20 Start: 08-19-2024 Start: 08-19-2024 glipiZIDE (GLU COTROL XL) 2.5 MG extended release tablet 1 tablet 08/19/2024 Active ipratropium bromide 0.021 mg /actuat metered dose nasal spray (3 sources) Anticholinergic Start: 02-11-2025 take 2 spray(s) nasal route twic e daily ipratropium (ATROVENT) 0.03 % nasal spray instill 2 (TWO) sprays IN EACH NOSTRIL TWICE DAILY FOR 30 DAYS Active 24 hr metoprolol succinate 2 5 mg extended release oral tablet (3 sources) beta-Adrenergic Trish Start: 04-09-2023 midodrine hydrochloride 5 mg oral tablet (3 sources) alpha-Adrenergic Agonist Start: 02-11-2025 Start: 04-20-2023 Multiple Vitamin (MULTIVITAMIN ADULT PO) (1 source) take 1 capsule by mouth once daily Multiple Vitamin (MULTIVITAMIN ADULT PO) Take 1 capsule by mouth daily Active ondansetron 4 mg disintegrating oral tablet (1 source) Serotonin-3 Receptor Antagonist Start: 02-11-20 pantoprazole 40 mg delayed release oral tablet (3 sources) Proton Pump Inhibitor Start: 04-21-20 23 polyethylene glycol 3350 31097 mg powder for oral solution (1 source) Osmotic Laxative Start: 02-11-20 sacubitril 24 mg / valsartan 26 mg oral tablet (3 sources) Angiotensin 2 Receptor Trish Start: 04-20-20 Start: 04-20-2023 take 24-26 mg by liz th once sacubitril-valsartan (ENTRESTO) 24-26 MG per tablet Take 0.5 tablets by mouth 2 times daily 60 tablet 1 04/20/2023 Active sodium chloride 0.111 meq/ml nasal spray (2 sources) Start: 02-16-2025 Start: 02-11-2025 tamsulosin hydrochloride 0.4 mg oral capsule (3 sources) alpha-Adrenergic Trish Start: 02-11-2025 Start: 04-21-2023 therapeutic multivitamin-minerals 1 tablet (1 source) Start: 02-11-2025 traZODone hydrochloride 50 m g oral tablet (2 sources) Serotonin Reuptake Inhibitor Start: 02-11-2025 (2 sources) Start: 02-10-2025 [Order 1 Start ] Name: acetaminophen (TYLENOL) tablet 650 mg Signed Summary: 650 mg, Oral, EVERY 6 HOURS PRN, Starting on Mon02/10/25 at 2359, Until Discontinued, Pain Mild (1-3), allowed for higher pain score per patient request, Fever, For temp greater than 100.4 F (38 C), Maximum dose of acetaminophen is 4000 mg from all sources in 24 hours. [Order 1 End] [Order 2 Start] Name: acetaminophen (TYLENOL) suppository 650 mg Signed Summary: 650 mg, Rectal, EVERY 6 HOURS PRN, Starting on Mon02/10/25 at 2359, Until Discontinued, Pain Mild (1-3), allowed for higher pain score per patient request, Fever, For temp greater than 100.4 F (38 C), Administer if oral route cannot be used. [Order 2 End] Start: 02-10-2025 [Order 1 Start ] Name: potassium chloride (KLOR-CON M) extended release tablet 40 mEq Signed Summary: 40 mEq, Oral, PRN, Starting on Mon02/10/25 at 2359, Until Discontinued, Potassium Replacement, May give alternative linked oral order (ordered as effervescent, packet, or liquid solution) if patient unable to tolerate tablet. K Lab Replacement Action 3.1 to 3.5 40 mEq ORAL x 1 Under 3.1 Refer to IV replacement protocol Recheck K level in AM. Protocol not for use in patients with CrCl less than 30 mL/min. Do not crush, chew, or suck on tablet. Tablet may also be broken in half and each half swallowed separately. [Order 1 End] [Order 2 Start] Name: potassium bicarb-citric acid (EFFER-K) effervescent tablet 40 mEq Signed Summary: 40 mEq, Oral, PRN, Starting on Mon02/10/25 at 2359, Until Discontinued, Per Potassium Replacement Protocol, Administer as alternative if patient unable to tolerate oral tablet. K Lab Replacement Action 3.1 to 3.5 40 mEq ORAL x 1 Under 3.1 Refer to IV replacement protocol Recheck K level in AM. Protocol not for use in patients with CrCl less than 30 mL/min. Do not chew or crush. Dissolve flavored tablets completely in 3 to 4 ounces of cold water; unflavored tablets may be dissolved in 3 to 4 ounces of cold juice. Patient to sip slowly over a 5 to 10 minute period. May further dilute if GI adverse effects occur. [Order 2 End] Completed/Discontinued Medications Medication Drug Class(es) Dates Sig (Normalized) Sig (Original) benzonatate 100 mg oral capsule (1 source) [...] Comment on above: Take 1 tablet by . furosemide 20 mg oral tablet (4 sources) Loop Diuretic Start: 02-11-2025 End: 02-28-2025 Start: 04-20-2023 glyBURIDE 1.5 mg oral tablet (1 source) Sulfonylurea glyBURIDE micron ized (GLYNASE) 1.5 mg tablet Take 1.5 mg by mouth. 0 Active Comment on above: Take 1.5 mg by mouth . hydrocortisone 10 mg/ml topical cream (2 sources) Corticosteroid Start: 02-13-2025 End: 02-20-2025 Start: 02-11-2025 losartan potassium 50 mg oral tablet (1 [...] on above: Take 1 capsule by mo [facility] once daily. omeprazole 20 mg delayed [...] on above: Take 1 tablet by liz twice daily. (1 source) Start: 02-10-2025 End: 02-10-2025 Problems Active Problems Problem Classification Problem Date Documented Date Episodic/Chronic Acute myocardial infarction (3 sources) Non-ST elevation (NSTEMI) myocardial infarction; Translations: [Myocardial infarction] Onset: 3 04-09-2023 Chronic Anxiety disorders (1 source) Anxiety disorder, [...] Onset: 2 Chronic Congestive heart failure; nonhypertensive (17 sources) Chronic systolic (congestive) heart failure; Translations: [Chronic combined systolic (congestive) and diastolic (congestive) heart failure] Onset: 2 Chronic Coronary atherosclerosis and other heart disease (4 sources) Atherosclerotic heart disease of [place] coronary artery without angina pectoris; Translations: [Coronary arteriosclerosis] Onset: 3 Chronic Diabetes mellitus without complication (9 sources) Type 2 diabetes mellitus; Translations: [Type [...] Onset: 1 12-20-2021 Chronic Heart valve disorders (9 sources) Nonrheumatic aortic (valve) stenosis; Translations: [Rheumatic disorders of both mitral and aortic valves] Onset: 2 Chronic Heart valve disorders (2 sources) Heart murmur; Translations: [Cardiac murmur, unspecified] Onset: 5 12-16-2024 Episodic Hypertension with complications and secondary hypertension (4 [...] 1 12-20-2021 Chronic Other nervous system disorders (3 sources) Muscular dystrophy, unspecified; Translations: [MUSCULAR DYSTROPHY UNSPECIFIED] Onset: 2 Chronic Other nervous system disorders (1 source) Facioscapulohumeral muscular dystrophy; 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 MUSC DYSTROPHY] Onset: 2 Chronic Other nervous system disorders (4 sources) Muscular dystrophy; Translations: [Muscular dystrophy, unspecified] Onset: 3 04-11-2023 Chronic Other nutritional; endocrine; and metabolic disorders [...] 3 Episodic Respiratory failure; insufficiency; arrest (adult) (9 sources) Chronic respiratory failure, unspecified whether with hypoxia or hypercapnia; Translations: [Chronic respiratory failure with hypoxia] Onset: 3 04-26-2023 Chronic Respiratory failure; insufficiency; arrest (adult) (7 sources) Acute respiratory failure with hypoxia; Translations: [Acute hypoxemic and hypercapnic respiratory failure] Onset: 2 04-11-2023 Episodic Transient cerebral ischemia (1 source) Cerebral ischemia; [...] source) Long-term current use of aspirin; Translations: [FCI (current) use of aspirin] Onset: 05-25-2021 12-20-2021 Episodic Other aftercare (1 source) Long-term current use of oral hypoglycemic medication; Translations: [FCI (current) use of oral hypoglycemic drugs] Onset: 05-25-2021 12-20-2021 Episodic Other aftercare (1 source) Long-term current use of drug therapy; Translations: [Other terminal system operator (current) drug therapy] Onset: 05-25-2021 12-20-2021 Episodic Other aftercare (1 source) [employer]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; Translations: [RETIREMENT CURRENT USE OF ASPIRIN] Onset: 07-01-2022 Episodic Other aftercare (1 source) [facility] (current) use of insulin; Translations: [RETIREMENT CURRENT USE OF INSULIN] Onset: 07-01-2022 Episodic Other aftercare (1 source) [facility] (current) use of oral hypoglycemic drugs; Translations: [RETIREMENT USE ORAL HYPOGLYCEMIC DX] Onset: 07-01-2022 Episodic Other aftercare (1 source) Other terminal system operator (current) drug therapy; Translations: [OTH RETIREMENT CURRENT DRUG THERAPY] Onset: 07-01-2022 Episodic Other circulatory disease (1 source) Hypotension, unspecified; Translations: [HYPOTENSION UNSPECIFIED] Onset: 05-25-2022 Episodic Other fractures (2 sources) Fracture of seventh thoracic vertebra; Translations: [Wedge compression fracture of T7-T8 vertebra, initial encounter for closed fracture] Onset: 04-11-2023 04-11-2023 Episodic Other gastrointestinal disorders (2 sources) Dysphagia; Translations: [Dysphagia, unspecified] Onset: 04-19-2023 04-19-2023 Episodic Other lower respiratory disease (1 source) Disorders of diaphragm; Translations: [DISORDERS OF DIAPHRAGM] Onset: 05-25-2022 Episodic Other lower respiratory disease (2 sources) Dyspnea; Translations: [Dyspnea, unspecified] Onset: 04-10-2023 04-11-2023 Episodic Other screening for suspected conditions (not mental disorders or infectious disease) (1 source) Raised prostate specific antigen; Translations: [Elevated prostate specific antigen [PSA]] Onset: 03-07-2018 12-20-2021 Episodic Screening and history of mental health and substance abuse codes (2 sources) H/O: drug dependency; Translations: [Personal history of nicotine dependence] Onset: 05-25-2021 12-20-2021 Episodic Unclassified (1 source) COUGH, UNSPECIFIED; Translations: [COUGH, UNSPECIFIED] Onset: 06-22-2022 Unclassified (1 source) Other ventricular tachycardia; Translations: [Other ventricular tachycardia] Onset: 09-01-2022 Results Test Name Value Interpretation Reference Range Facility Controlled Substances [facility] 03-21-2025 Controlled Substances Agreements [id number] 0OTGTIFF [facility] Outside [facility] 03-07-2025 Outside Records [id number]. 00OTGTIFF [facility] 03-03-2025 Outside Records [id number] 0[facility] Outside Records [id number] 0OT[facility] Arterial Blood Gaseson 02-20 Ethan Test YES Normal [facility] Comment on above: Performed By: #### A BG #### [facility] [address] [place], [place] [id number] Instructional Manager: Naima Faith MD Body Temp. 37.0 [facility] Comment on above: Performed By: #### A BG #### [facility] [address] [place] [address] Instructional Manager: Naima Faith MD FIO2 28 [facility] Comment on above: Performed By: #### A BG #### [facility] [address] [place] [address] Instructional Manager: Naima Faith MD HCO3 (Bld) [Moles/Vol] 36.3 mmol/L High 22-26 [facility] Comment on above: Performed By: #### A BG #### [facility] [address] [place], [place] [id number] Instructional Manager: Naima Faith MD O2 Device/Flow/% ROOM AIR [facility] Comment on above: Performed By: #### A BG #### [facility] [address] [place], [place] [id number] Instructional Manager: Naima Faith MD Oxygen (Bld) [Partial pressure] 88.0 mm[Hg] Normal 80.0-100.0 [facility] Comment on above: Performed By: #### A BG #### [facility] [address] [place] [address] Instructional Manager: Naima Faith MD Oxygen saturation in Blood 96.2 % Normal 95-98 [facility] Comment on above: Performed By: #### A BG #### [facility] [address] [place] [address] Instructional Manager: Naima Faith MD pCO2 64.6 mmHg Critically high 35-45 [facility] Comment on above: Performed By: #### A BG #### [facility] [address] [place] [address] Instructional Manager: Naima Faith MD pCO2 Adj'd for Temp 64.6 Critically high 35.0-45.0 [facility] Comment on above: Performed By: #### A BG #### [facility] [address] [place] [address] Instructional Manager: Naima Faith MD pH (Bld) 7.368 [pH] Normal 7.35-7.45 [facility] Comment on above: Performed By: #### A BG #### [facility] [address] [place] [address] Dr[address] [place], [place] [id number] Instructional Manager: Naima Faith MD pH Adjst'd for Temp. 7.368 Normal 7.350-7.450 [facility] Comment on above: Performed By: #### A BG #### [address] [place], [place] [id number] Instructional Manager: Naima Faith MD pO2 Adjst'd for Temp 88.0 mmHg Normal 80.0-100.0 [facility] Comment on above: Performed By: #### A BG #### [facility] [address] [place] [address] Instructional Manager: Naima Faith MD Positive Base Excess 8.4 mmol/L High 0.0-2.0 [facility] Comment on above: Performed By: #### A BG #### [facility] [address] [place] [address] Instructional Manager: Naima Faith MD Site Drawn Right Radial Artery Normal [facility] Comment on above: Performed By: #### A BG #### [facility] [address] [place] [address] Instructional Manager: Naima Faith MD Text for Respiratory Called to RN on 02/20/2025 at 05:[address] [facility] Comment on above: Performed By: #### A BG #### [facility] [address] [place] [address] Instructional Manager: Naima Faith MD Blood Gas, Arterialon 2024 Arterial patency Wrist artery --pre arterial puncture YES [facility] Body site Right Radial Artery [facility] HCO3 (Bld) [Moles/Vol] 36.3 mmol/L High 22 - 26 mmol/L [facility] Interpretation and review of laboratory results Abnormal [facility] Oxygen gas flow Oxygen delivery system ROOM AIR [facility] Oxygen saturation in Blood 96.2 % 95 - 98 % [facility] Oxygen/Inspired gas Respiratory system --on ventilator 28 [facility] pCO2, Art, Temp Adj 64.6 Critically high 35.0 - 45.0 [facility] pCO2, Arterial 64.6 Critically high [facility] pH, Art, Temp Adj 7.368 7.350 - 7.450 [facility] pH, Arterial 7.368 7.35 - 7.45 [facility] pO2, Art, Temp Adj 88 [facility] pO2, Arterial 88 [facility] Positive Base Excess, Art 8.4 mmol/L High 0.0 - 2.0 mmol/L [facility] Text for Respiratory Called to RN on 02/20/2025 at 05:[address] [facility] Arterial Blood Gaseson 02-19 Ethan Test YES [facility] Comment on above: Performed By: #### C DP, CP, TROPI, BNP #### [facility] [address] [place] [address] Instructional Manager: Naima Faith MD Body Temp. 37.0 [facility] Comment on above: Performed By: #### C DP, CP, TROPI, BNP #### [facility] [address] [place], [place] [id number] Instructional Manager: Naima Faith MD FIO2 28 [facility] Comment on above: Performed By: #### C DP, CP, TROPI, BNP #### [facility] [address] [place], [place] [id number] Instructional Manager: Naima Faith MD HCO3 (Bld) [Moles/Vol] 38.9 mmol/L High 22-26 [facility] Comment on above: Performed By: #### C DP, CP, TROPI, BNP #### [facility] [address] [place] [address] Instructional Manager: Naima Faith MD O2 Device/Flow/% Cannula [facility] Comment on above: Performed By: #### C DP, CP, TROPI, BNP #### [facility] [address] [place], [place] [id number] Instructional Manager: Naima Faith MD Oxygen (Bld) [Partial pressure] 69.9 mm[Hg] Low 80.0-100.0 [facility] Comment on above: Performed By: #### C DP, CP, TROPI, BNP #### [facility] [address] [place] [address] Instructional Manager: Naima Faith MD Oxygen saturation in Blood 91.8 % Low 95-98 [facility] Comment on above: Performed By: #### C DP, CP, TROPI, BNP #### [facility] [address] [place], [place] [id number] Instructional Manager: Naima Faith MD pCO2 77.6 mmHg Critically high 35-45 [facility] Comment on above: Performed By: #### C DP, CP, TROPI, BNP #### [address] [place], [place] [address]683 Instructional Manager: Naima Faith MD pCO2 Adj'd for Temp 77.6 Critically high 35.0-45.0 [facility] Comment on above: Performed By: #### C DP, CP, TROPI, BNP #### [address] [place], [facility] Instructional Manager: Naima Faith MD pH (Bld) 7.318 [pH] Low 7.35-7.45 [facility] Comment on above: Performed By: #### C DP, CP, TROPI, BNP #### [address] [place], [place] [address]183 Instructional Manager: Naima Faith MD pH Adjst'd for Temp. 7.318 Low 7.350-7.450 [facility] Comment on above: Performed By: #### C DP, CP, TROPI, BNP #### [address] [place], [place] [id number] Instructional Manager: Naima Faith MD pO2 Adjst'd for Temp 69.9 mmHg Low 80.0-100.0 [facility] Comment on above: Performed By: #### C DP, CP, TROPI, BNP #### [address] [place], [place] [id number] Instructional Manager: Naima Faith MD Positive Base Excess 9.3 mmol/L High 0.0-2.0 [facility] Comment on above: Performed By: #### C DP, CP, TROPI, BNP #### [address] [place] [address] Instructional Manager: Naima Faith MD Site Drawn Right Radial Artery Normal [facility] Comment on above: Performed By: #### C DP, CP, TROPI, BNP #### [facility] [address] [place] [address] Instructional Manager: Naima Faith MD Text for Respiratory Called to PROVIDER on 11/22/2024 at 06:[address] [facility] Comment on above: Performed By: #### C DP, CP, TROPI, BNP #### [facility] [address] [place] [address] Instructional Manager: Naima Faith MD Basic Metab w/rfx MGon 02-19 Anion gap [Moles/Vol] 5 mmol/L Low 9-16 [facility] Comment on above: Performed By: #### C DP, CP, TROPI, BNP #### [address] [place] [address] Instructional Manager: Naima Faith MD BUN/CRE Ratio 30 High 9-20 [facility] Comment on above: Performed By: #### C DP, CP, TROPI, BNP #### [facility] [address] [place] [address] [place] [place], [place] [id number] Instructional Manager: Naima Faith MD Calcium [Mass/Vol] 8.6 mg/dL Normal 8.6-10.4 [facility] Comment on above: Performed By: #### C DP, CP, TROPI, BNP #### [address] [place] [address] Instructional Manager: Naima Faith MD Chloride [Moles/Vol] 100 mmol/L Normal 98-107 [facility] Comment on above: Performed By: #### C DP, CP, TROPI, BNP #### [facility] [address] [place] [address] [place] [address] Instructional Manager: Naima Faith MD CO2 [Moles/Vol] 36 mmol/L High 20-31 [facility] Comment on above: Performed By: #### C DP, CP, TROPI, BNP #### [facility] [address] [place] [address] [place] [place], [place] [id number] Instructional Manager: Naima Faith MD Creatinine [Mass/Vol] 0.5 mg/dL Low 0.70-1.20 [facility] Comment on above: Performed By: #### C DP, CP, TROPI, BNP #### [facility] [address] [place] [id number] Instructional Manager: Naima Faith MD GFR/1.73 sq M.predicted among non-blacks MDRD (S/P/Bld) [Vol rate/Area] mL/min/{1.73_m2} Normal >60 [facility] Comment on above: Result Comment: These results [...] renal tubular secretion. Performed By: #### C DP, CP, TROPI, BNP #### [facility] [address] [place] [address] Instructional Manager: Naima Faith MD Glucose [Mass/Vol] 121 mg/dL High 74-99 [facility] Comment on above: Performed By: #### C DP, CP, TROPI, BNP #### [facility] [address] [place], [facility] Instructional Manager: Naima Faith MD Potassium [Moles/Vol] 4.1 mmol/L Normal 3.7-5.3 [facility] Comment on above: Performed By: #### C DP, CP, TROPI, BNP #### [facility] [address] [place] [address] Instructional Manager: Naima Faith MD Sodium [Moles/Vol] 141 mmol/L Normal 136-145 [facility] Comment on above: Performed By: #### C DP, CP, TROPI, BNP #### [facility] [address] [place] [address] Instructional Manager: Naima Faith MD Urea nitrogen [Mass/Vol] 15 mg/dL Normal 8-23 [facility] Comment on above: Performed By: #### C CARLOS, RYAN, TROPI, BNP #### [facility] [address] [place] [address] Instructional Manager: Naima Faith MD Basic Metabolic Panel w/ Ref kwabena to MGon 2025 Anion gap [Moles/Vol] 5 mmol/L Low 9 - 16 mmol/L [facility] Calcium [Mass/Vol] 8.6 mg/dL 8.6 - 10. 4 mg/dL [facility] Chloride [Moles/Vol] 100 mmol/L 98 - 10 7 mmol/L [facility] CO2 [Moles/Vol] 36 mmol/L High 20 - 31 mmol/L [facility] Creatinine [Mass/Vol] 0.5 mg/dL Low 0.70 - 1.20 mg/dL [facility] Est, Glom Filt Rate - PINF [facility] Glucose [Mass/Vol] 121 mg/dL High 74 - 99 mg/dL [facility] Interpretation and review of laboratory results Abnormal [facility] Potassium [Moles/Vol] 4.1 mmol/L 3.7 - 5.3 mmol/L [facility] Sodium [Moles/Vol] 141 mmol/L 136 - 145 mmol/L [facility] Urea nitrogen [Mass/Vol] 15 mg/dL 8 - 23 mg/dL [facility] Urea nitrogen/Creatinine [Mass ratio] 30 mg/mg High 9 - [address] [facility] Blood Gas, Arterialon 2024 Arterial patency Wrist artery --pre arterial puncture YES [facility] Body site Right Radial Artery [facility] HCO3 (Bld) [Moles/Vol] 38.9 mmol/L High 22 - 26 mmol/L [facility] Interpretation and review of laboratory results Abnormal [facility] Oxygen gas flow Oxygen delivery system Cannula [facility] Oxygen saturation in Blood 91.8 % Low 95 - 98 % [facility] Oxygen/Inspired gas Respiratory system --on ventilator 28 [facility] pCO2, Art, Temp Adj 77.6 Critically high 35.0 - 45.0 [facility] pCO2, Arterial 77.6 Critically high [facility] pH, Art, Temp Adj 7.318 Low 7.350 - 7.450 [facility] pH, Arterial 7.318 Low 7.35 - 7.45 [facility] pO2, Art, Temp Adj 69.9 Low [facility] pO2, Arterial 69.9 Low [facility] Positive Base Excess, Art 9.3 mmol/L High 0.0 - 2.0 mmol/L [facility] Text for Respiratory Called to PROVIDER on 11/22/2024 at 06:[address] [facility] CBC with Auto Differentialon 2025 Basophils (Bld) [#/Vol] 0.07 10*3/uL [facility] Basophils/100 WBC (Bld) 1 % 0 - 2 % [facility] Eosinophils (Bld) [#/Vol] 0.14 10*3/uL [facility] Eosinophils/100 WBC (Bld) 2 % 1 - 4 % [facility] Erythrocyte distribution width (RBC) [Ratio] 19 % High 11.8 - 14.4 % [facility] Hematocrit (Bld) [Volume fraction] 43.5 % 40.7 - 50.3 % [facility] Hemoglobin (Bld) [Mass/Vol] 12.1 g/dL Low 13.0 - 17.0 g/dL [facility] Immature granulocytes (Bld) [#/Vol] 0.07 10*3/uL [facility] Immature granulocytes/100 WBC (Bld) 1 % High 0 [facility] Interpretation and review of laboratory results Abnormal [facility] Lymphocytes/100 WBC (Bld) 19 % Low 24 - 43 % [facility] Lymphocytes/100 WBC (Bld) 1.33 % [facility] MCH (RBC) [Entitic mass] 25 pg Low 25.2 - 33.5 pg [facility] MCHC (RBC) [Mass/Vol] 27.8 g/dL Low 28.4 - 34.8 g/dL [facility] MCV (RBC) [Entitic vol] 89.9 fL 82.6 - 102.9 fL [facility] Monocytes/100 WBC (Bld) 8 % 3 - 12 % [facility] Monocytes/100 WBC (Bld) 0.56 % [facility] Morphology Gustavo (Bld) [Interp] Platelet scan shows Normal Platelets [facility] Morphology Gustavo (Bld) [Interp] POIKILOCYTOSIS PRESENT [facility] Neutrophils/100 WBC (Bld) 69 % High 36 - 65 % [facility] Nucleated RBC/100 WBC (Bld) [Ratio] 0 % 0.0 per 100 WBC [facility] Platelet mean volume (Bld) [Entitic vol] 10.3 fL 8.1 - 13.5 fL [facility] Platelets (Bld) [#/Vol] 154 10*3/uL [facility] RBC (Bld) [#/Vol] 4.84 10*6/uL 4.21 - 5.7 7 m/uL [facility] Segmented neutrophils/100 WBC (Bld) 4.83 % [facility] WBC other (Bld) [#/Vol] [address] [facility] CBC with Diffon 2025 Abs. Basophil 0.07 k/uL Normal 0.00-0.20 [facility] Comment on above: Performed By: #### C DP, CP, TROPI, BNP #### [facility] [address] [place] [address] Instructional Manager: Naima Faith MD Abs.Imm.Granulocyte 0.07 k/uL Normal 0.00-0.30 [facility] Comment on above: Performed By: #### C DP, CP, TROPI, BNP #### [facility] [place] [address] Instructional Manager: Naima Faith MD Abs.Neutrophil (Seg) 4.83 k/uL Normal 1.50-8.10 [facility] Comment on above: Performed By: #### C DP, CP, TROPI, BNP #### [address] [place] [id number] Instructional Manager: Naima Faith MD Basophils/100 WBC (Bld) 1 % Normal 0-2 [facility] Comment on above: Performed By: #### C DP, CP, TROPI, BNP #### [address] [place] [address] Instructional Manager: Naima Faith MD Eosinophils (Bld) [#/Vol] 0.14 10*3/uL Normal 0.00-0.44 [facility] Comment on above: Performed By: #### C DP, CP, TROPI, BNP #### [address] [place], [facility] Instructional Manager: Naima Faith MD Eosinophils/100 WBC (Bld) 2 % Normal 1-4 [facility] Comment on above: Performed By: #### C DP, CP, TROPI, BNP #### [address] [place] [id number] Instructional Manager: Naima Faith MD Immature granulocytes/100 WBC (Bld) 1 % High 0 [facility] Comment on above: Performed By: #### C DP, CP, TROPI, BNP #### [address] [place] [id number] Instructional Manager: Naima Faith MD Lymphocytes (Bld) [#/Vol] 1.33 10*3/uL Normal 1.10-3.70 [facility] Comment on above: Performed By: #### C DP, CP, TROPI, BNP #### [address] [place], [facility] Instructional Manager: Naima Faith MD Lymphocytes/100 WBC (Bld) 19 % Low 24-43 [facility] Comment on above: Performed By: #### C DP, CP, TROPI, BNP #### [facility] [address] [place], [facility] Instructional Manager: Naima Faith MD Monocytes (Bld) [#/Vol] 0.56 10*3/uL Normal 0.10-1.20 [facility] Comment on above: Performed By: #### C DP, CP, TROPI, BNP #### [address] [place] [address] Instructional Manager: Naima Faith MD Monocytes/100 WBC (Bld) 8 % Normal 3-12 [facility] Comment on above: Performed By: #### C DP, CP, TROPI, BNP #### [address] [place], [place] [address] Instructional Manager: Naima Faith MD Morphology Gustavo (Bld) [Interp] Platelet scan shows Normal Platelets Normal [facility] Comment on above: Result Comment: POIK ILOCYTOSIS PRESENT Performed By: #### C DP, CP, TROPI, BNP #### [address] [place] [address] Instructional Manager: Naima Faith MD Neutrophil (Seg) 69 % High 36-65 [facility] Comment on above: Performed By: #### C DP, CP, TROPI, BNP #### [address] [place], [facility] Instructional Manager: Naima Faith MD Erythrocyte distribution width (RBC) [Ratio] 19.0 % High 11.8-14.4 [facility] Comment on above: Performed By: #### C DP, CP, TROPI, BNP #### [address] [place] [address] Instructional Manager: Naima Faith MD Hematocrit (Bld) [Volume fraction] 43.5 % Normal 40.7-50.3 [facility] Comment on above: Performed By: #### C DP, CP, TROPI, BNP #### [address] [place] [id number] Instructional Manager: Naima Faith MD Hemoglobin (Bld) [Mass/Vol] 12.1 g/dL Low 13.0-17.0 [facility] Comment on above: Performed By: #### C DP, CP, TROPI, BNP #### [address] [place] [address] Instructional Manager: Naima Faith MD MCH (RBC) [Entitic mass] 25.0 pg Low 25.2-33.5 [facility] Comment on above: Performed By: #### C DP, CP, TROPI, BNP #### [address] [place] [id number] Instructional Manager: Naima Faith MD MCHC (RBC) [Mass/Vol] 27.8 g/dL Low 28.4-34.8 [facility] Comment on above: Performed By: #### C DP, CP, TROPI, BNP #### [address] [place] [address] Instructional Manager: Naima Faith MD MCV (RBC) [Entitic vol] 89.9 fL Normal 82.6-102.9 [facility] Comment on above: Performed By: #### C DP, CP, TROPI, BNP #### [address] [place] [phone] Instructional Manager: Naima Faith MD NRBC Automated 0.0 per [address] [facility] Comment on above: Performed By: #### C DP, CP, TROPI, BNP #### [address] [place], [facility] Instructional Manager: Naima Faith MD Platelet mean volume (Bld) [Entitic vol] 10.3 fL Normal 8.1-13.5 [facility] Comment on above: Performed By: #### C DP, CP, TROPI, BNP #### [address] [place], [facility] Instructional Manager: Naima Faith MD Platelets (Bld) [#/Vol] 154 10*3/uL Normal 138-453 [facility] Comment on above: Performed By: #### C DP, CP, TROPI, BNP #### [address] [place], [facility] Instructional Manager: Naima Faith MD RBC (Bld) [#/Vol] 4.84 10*6/uL Normal 4.21-5.77 [facility] Comment on above: Performed By: #### C DP, CP, TROPI, BNP #### [address] [place], [place] [address] Instructional Manager: Naima Faith MD WBC (Bld) [#/Vol] 7.0 10*3/uL Normal 3.5-11.3 [facility] Comment on above: Performed By: #### C DP, CP, TROPI, BNP #### [address] [place], [place] [address] Instructional Manager: Naima Faith MD Arterial Blood Gaseson 02-18 Ethan Test YES Normal [facility] Comment on above: Performed By: #### C DP, CP, TROPI, BNP #### [address] [place], [facility] Instructional Manager: Naima Faith MD Body Temp. 37.[address] [facility] Comment on above: Performed By: #### C DP, CP, TROPI, BNP #### [address] [place], [place] 0776183 Instructional Manager: Naima Faith MD FIO2 [address] [facility] Comment on above: Performed By: #### C DP, CP, TROPI, BNP #### [facility] [address] [place], [place] [id number] Instructional Manager: Naima Faith MD HCO3 (Bld) [Moles/Vol] 39.1 mmol/L High 22-26 [facility] Comment on above: Performed By: #### C DP, CP, TROPI, BNP #### [facility] [address] [place], [place] [id number] Instructional Manager: Naima Faith MD O2 Device/Flow/% BIPAP Normal [facility] Comment on above: Performed By: #### C DP, CP, TROPI, BNP #### [address] [place], [place] 1486783 Instructional Manager: Naima Faith MD Oxygen (Bld) [Partial pressure] 93.7 mm[Hg] Normal 80.0-100.0 [facility] Comment on above: Performed By: #### C DP, CP, TROPI, BNP #### [facility] [address] [place], [place] [id number] Instructional Manager: Naima Faith MD Oxygen saturation in Blood 96.5 % Normal 95-98 [facility] Comment on above: Performed By: #### C DP, CP, TROPI, BNP #### [facility] [address] [place], [place] [id number] Instructional Manager: Naima Faith MD pCO2 72.7 mmHg Critically high 35-45 [facility] Comment on above: Performed By: #### C DP, CP, TROPI, BNP #### [facility] [address] [place], [place] [id number] Instructional Manager: Naima Faith MD pCO2 Adj'd for Temp 72.7 Critically high 35.0-45.0 [facility] Comment on above: Performed By: #### C DP, CP, TROPI, BNP #### [address] [place] [address] Instructional Manager: Naima Faith MD pH (Bld) 7.348 [pH] Low 7.35-7.45 [facility] Comment on above: Performed By: #### C DP, CP, TROPI, BNP #### [address] [place], [place] [id number] Instructional Manager: Naima Faith MD pH Adjst'd for Temp. 7.348 Low 7.350-7.450 [facility] Comment on above: Performed By: #### C DP, CP, TROPI, BNP #### [address] [place], [facility] Instructional Manager: Naima Faith MD pO2 Adjst'd for Temp 93.7 mmHg Normal 80.0-100.0 [facility] Comment on above: Performed By: #### C DP, CP, TROPI, BNP #### [address] [place], [place] [id number] Instructional Manager: Naima Faith MD Positive Base Excess 10.1 mmol/L High 0.0-2.0 [facility] Comment on above: Performed By: #### C DP, CP, TROPI, BNP #### [address] [place] [address] Instructional Manager: Naima Faith MD Site Drawn Right Radial Artery [facility] Comment on above: Performed By: #### C DP, CP, TROPI, BNP #### [address] [place] [address] Instructional Manager: Naima Faith MD Text for Respiratory Called to RN on 02/18/2025 at 05:49 [facility] Comment on above: Performed By: #### C DP, CP, TROPI, BNP #### [facility] [address] [place] [address] Instructional Manager: Naima Faith MD Blood Gas, Arterialon 2024 Arterial patency Wrist artery --pre arterial puncture YES [facility] Body site Right Radial Artery [facility] HCO3 (Bld) [Moles/Vol] 39.1 mmol/L High 22 - 26 mmol/L [facility] Interpretation and review of laboratory results Abnormal [facility] Oxygen gas flow Oxygen delivery system BIPAP [facility] Oxygen saturation in Blood 96.5 % 95 - 98 % [facility] Oxygen/Inspired gas Respiratory system --on ventilator 28 [facility] pCO2, Art, Temp Adj 72.7 Critically high 35.0 - 45.0 [facility] pCO2, Arterial 72.7 Critically high [facility] pH, Art, Temp Adj 7.348 Low 7.350 - 7.450 [facility] pH, Arterial 7.348 Low 7.35 - 7.45 [facility] pO2, Art, Temp Adj 93.7 [facility] pO2, Arterial 93.7 [facility] Positive Base Excess, Art 10.1 mmol/L High 0.0 - 2.0 mmol/L [facility] Text for Respiratory Called to RN on 02/18/2025 at 05:[address] [facility] Arterial Blood Gaseson 02-17 Ethan Test YES Normal [facility] Comment on above: Performed By: #### C DP, CP, TROPI, BNP #### [facility] [address] [place] [address] Instructional Manager: Naima Faith MD Body Temp. 37.0 [facility] Comment on above: Performed By: #### C DP, CP, TROPI, BNP #### [facility] [address] [place] [address] Instructional Manager: Naima Faith MD FIO2 [address] [facility] Comment on above: Performed By: #### C DP, CP, TROPI, BNP #### [facility] [address] [place], [place] [id number] Instructional Manager: Naima Faith MD HCO3 (Bld) [Moles/Vol] 27.3 mmol/L High 22-26 [facility] Comment on above: Performed By: #### C DP, CP, TROPI, BNP #### [facility] [address] [place], [place] 1099483 Instructional Manager: Naima Faith MD O2 Device/Flow/% BIPAP [facility] Comment on above: Performed By: #### C DP, CP, TROPI, BNP #### [address] [place], [place] [id number] Instructional Manager: Naima Faith MD Oxygen (Bld) [Partial pressure] 86.4 mm[Hg] Normal 80.0-100.0 [facility] Comment on above: Performed By: #### C DP, CP, TROPI, BNP #### [address] [place], [place] [id number] Instructional Manager: Naima Faith MD Oxygen saturation in Blood 97.6 % Normal 95-98 [facility] Comment on above: Performed By: #### C DP, CP, TROPI, BNP #### [facility] [address] [place], [place] 0259683 Instructional Manager: Naima Faith MD pCO2 32.1 mmHg Low 35-45 [facility] Comment on above: Performed By: #### C DP, CP, TROPI, BNP #### [facility] [address] [place], [place] [id number] Instructional Manager: Naima Faith MD pCO2 Adj'd for Temp 32.1 Low 35.0-45.0 [facility] Comment on above: Performed By: #### C DP, CP, TROPI, BNP #### [address] [place] [id number] Instructional Manager: Naima Faith MD pH (Bld) 7.548 [pH] High 7.35-7.45 [facility] Comment on above: Performed By: #### C DP, CP, TROPI, BNP #### [address] [place], [place] [id number] Instructional Manager: Naima Faith MD pH Adjst'd for Temp. 7.548 Critically high 7.350-7.[address] [facility] Comment on above: Performed By: #### C DP, CP, TROPI, BNP #### [address] [place], [facility] Instructional Manager: Naima Faith MD pO2 Adjst'd for Temp 86.4 mmHg Normal 80.0-100.0 [facility] Comment on above: Performed By: #### C DP, CP, TROPI, BNP #### [address] [place], [facility] Instructional Manager: Naima Faith MD Positive Base Excess 5.4 mmol/L High 0.0-2.0 [facility] Comment on above: Performed By: #### C DP, CP, TROPI, BNP #### [address] [place], [facility] Instructional Manager: Naima Faith MD Site Drawn Left Radial Artery Normal [facility] Comment on above: Performed By: #### C DP, CP, TROPI, BNP #### [address] [place] [address] Instructional Manager: Naima Faith MD Blood Gas, Arterialon 2024 Arterial patency Wrist artery --pre arterial puncture YES [facility] Body site Left Radial Artery [facility] HCO3 (Bld) [Moles/Vol] 27.3 mmol/L High 22 - 26 mmol/L [facility] Interpretation and review of laboratory results Abnormal [facility] Oxygen gas flow Oxygen delivery system BIPAP [facility] Oxygen saturation in Blood 97.6 % 95 - 98 % [facility] Oxygen/Inspired gas Respiratory system --on ventilator 28 [facility] pCO2, Art, Temp Adj 32.1 Low 35.0 - 45.0 [facility] pCO2, Arterial 32.1 Low [facility] pH, Art, Temp Adj 7.548 Critically high 7.350 - 7.450 [facility] pH, Arterial 7.548 High 7.35 - 7.45 [facility] pO2, Art, Temp Adj 86.4 [facility] pO2, Arterial 86.4 [facility] Positive Base Excess, Art 5.4 mmol/L High 0.0 - 2.0 mmol/L [facility] Rad - Other Radiology Report on 02-17-2025 Rad - Other Radiology Report [id number] [facility] Arterial Blood Gaseson 02-16 Ethan Test YES [facility] Comment on above: Performed By: #### C DP, CP, TROPI, BNP #### [facility] [address] [place] [address] Instructional Manager: Naima Faith MD Body Temp. 37.0 [facility] Comment on above: Performed By: #### C DP, CP, TROPI, BNP #### [facility] [address] [place] [address] Instructional Manager: Naima Faith MD FIO2 28 [facility] Comment on above: Performed By: #### C DP, CP, TROPI, BNP #### [facility] [address] [place] [address] Instructional Manager: Naima Faith MD HCO3 (Bld) [Moles/Vol] 39.5 mmol/L High 22-26 [facility] Comment on above: Performed By: #### C DP, CP, TROPI, BNP #### [facility] [address] [place] [address] [place], [place] [id number] Instructional Manager: Naima Faith MD O2 Device/Flow/% Cannula Normal [facility] Comment on above: Performed By: #### C DP, CP, TROPI, BNP #### [address] [place], [place] [id number] Instructional Manager: Naima Faith MD Oxygen (Bld) [Partial pressure] 64.9 mm[Hg] Low 80.0-100.0 [facility] Comment on above: Performed By: #### C DP, CP, TROPI, BNP #### [facility] [address] [place] [address] [place] [place], [place] [id number] Instructional Manager: Naima Faith MD Oxygen saturation in Blood 89.6 % Low 95-98 [facility] Comment on above: Performed By: #### C DP, CP, TROPI, BNP #### [address] [place], [place] [id number] Instructional Manager: Naima Faith MD pCO2 81.3 mmHg Critically high 35-45 [facility] Comment on above: Performed By: #### C DP, CP, TROPI, BNP #### [facility] [address] [place] [address] [place] [place], [place] [id number] Instructional Manager: Naima Faith MD pCO2 Adj'd for Temp 81.3 Critically high 35.0-45.0 [facility] Comment on above: Performed By: #### C DP, CP, TROPI, BNP #### [address] [place], [place] [id number] Instructional Manager: Naima Faith MD pH (Bld) 7.304 [pH] Low 7.35-7.45 [facility] Comment on above: Performed By: #### C DP, CP, TROPI, BNP #### [facility] [address] [place] [address] [place] [place], [place] [id number] Instructional Manager: Naima Faith MD pH Adjst'd for Temp. 7.304 Low 7.350-7.450 [facility] Comment on above: Performed By: #### C DP, CP, TROPI, BNP #### [facility] [address] [place] [address] [place] [place], [place] [id number] Instructional Manager: Naima Faith MD pO2 Adjst'd for Temp 64.9 mmHg Low 80.0-100.0 [facility] Comment on above: Performed By: #### C DP, CP, TROPI, BNP #### [address] [place], [facility] Instructional Manager: Naima Faith MD Positive Base Excess 9.4 mmol/L High 0.0-2.0 [facility] Comment on above: Performed By: #### C DP, CP, TROPI, BNP #### [address] [place], [facility] Instructional Manager: Naima Faith MD Site Drawn Right Radial Artery [facility] Comment on above: Performed By: #### C DP, CP, TROPI, BNP #### [address] [place], [facility] Instructional Manager: Naima Faith MD Text for Respiratory Called to RN on 02/16/2025 at 06:18 [facility] Comment on above: Performed By: #### C DP, CP, TROPI, BNP #### [address] [place] [address] Instructional Manager: Naima Faith MD Blood Gas, Arterialon 2024 Arterial patency Wrist artery --pre arterial puncture YES [facility] Body site Right Radial Artery [facility] HCO3 (Bld) [Moles/Vol] 39.5 mmol/L High 22 - 26 mmol/L [facility] Interpretation and review of laboratory results Abnormal [facility] Oxygen gas flow Oxygen delivery system Cannula [facility] Oxygen saturation in Blood 89.6 % Low 95 - 98 % [facility] Oxygen/Inspired gas Respiratory system --on ventilator 28 [facility] pCO2, Art, Temp Adj 81.3 Critically high 35.0 - 45.0 [facility] pCO2, Arterial 81.3 Critically high [facility] pH, Art, Temp Adj 7.304 Low 7.350 - 7.450 [facility] pH, Arterial 7.304 Low 7.35 - 7.45 [facility] pO2, Art, Temp Adj 64.9 Low [facility] pO2, Arterial 64.9 Low [facility] Positive Base Excess, Art 9.4 mmol/L High 0.0 - 2.0 mmol/L [facility] Text for Respiratory Called to RN on 02/16/2025 at 06:[address] [facility] PFT Reporton 02-16-[address] [facility] XR CHEST (2 VW)on 02-16-2025 XR CHEST (2 VW) EXAMINATION: TWO XRAY VIEWS OF THE CHEST 02/16/2025 1:15 pm COMPARISON: 02/10/2025. HISTORY: ORDERING SYSTEM PROVIDED HISTORY: shortness of breath TECHNOLOGIST PROVIDED HISTORY: shortness of breath FINDINGS: The cardiac silhouette is mildly enlarged and stable. Aortic vascular calcification. Linear band of atelectasis in the right infrahilar region with elevation of the right hemidiaphragm. No acute infiltrate, pleural fluid or evidence of overt failure. IMPRESSION: No acute cardiopulmonary disease. Stable subsegmental atelectasis on the right. Interpreted by: Naima Valenzuela MD Signed by: Naima Valenzuela MD 02/16/[address] [facility] XR Chest 2 Viewson MHPN RIS CONSOLIDATED MHPN RIS CONSOLIDATED [facility] Radiology Study observation (narrative) [facility] XR Chest 2 ViewsOrdered By: Naima Valenzuela on 02-16-2025 [facility] Work Phone: Arterial Blood Gaseson 02-15 Ethan Test YES Normal [facility] Comment on above: Performed By: #### A BG #### [facility] [address] [place], [place] [id number] Instructional Manager: Naima Faith MD Body Temp. 37.0 [facility] Comment on above: Performed By: #### A BG #### [facility] [address] [place] [id number] Instructional Manager: Naima Faith MD Carboxy Hgb 1.9 % Normal 0.0-5.0 [facility] Comment on above: Performed By: #### A BG #### [facility] [address] [place] [id number] Instructional Manager: Naima Faith MD FIO2 [address] [facility] Comment on above: Performed By: #### A BG #### [facility] [address] [place] [address] Instructional Manager: Naima Faith MD HCO3 (Bld) [Moles/Vol] 40.2 mmol/L High 22-26 [facility] Comment on above: Performed By: #### A BG #### [facility] [address] [place] [address] Instructional Manager: Naima Faith MD Methemoglobin 0.3 % Normal 0.0-1.9 [facility] Comment on above: Performed By: #### A BG #### [facility] [address] [place] [address] Instructional Manager: Naima Faith MD O2 Device/Flow/% Cannula Normal [facility] Comment on above: Performed By: #### A BG #### [facility] [address] [place] [address] Instructional Manager: Naima Faith MD Oxygen (Bld) [Partial pressure] 66.0 mm[Hg] Low 80.0-100.0 [facility] Comment on above: Performed By: #### A BG #### [facility] [address] [place] [address] [place] [place], [place] [id number] Instructional Manager: Naima Faith MD Oxygen saturation in Blood 91.2 % Low 95-98 [facility] Comment on above: Performed By: #### A BG #### [address] [place], [place] 8455783 Instructional Manager: Naima Faith MD Oxyhemoglobin 89.2 % Low 95.0-98.0 [facility] Comment on above: Performed By: #### A BG #### [address] [place] [facility] Instructional Manager: Naima Faith MD pCO2 85.6 mmHg Critically high 35-45 [facility] Comment on above: Performed By: #### A BG #### [address] [place], [facility] Instructional Manager: Naima Faith MD pCO2 Adj'd for Temp 85.6 Critically high 35.0-45.0 [facility] Comment on above: Performed By: #### A BG #### [address] [place], [place] 1495483 Instructional Manager: Naima Faith MD pH (Bld) 7.290 [pH] Low 7.35-7.45 [facility] Comment on above: Performed By: #### A BG #### [address] [place] [address] Instructional Manager: Naima Faith MD pH Adjst'd for Temp. 7.290 Critically low 7.350-7.450 [facility] Comment on above: Performed By: #### A BG #### [facility] [address] [place] [address] Instructional Manager: Naima Faith MD pO2 Adjst'd for Temp 66.0 mmHg Low 80.0-100.0 [facility] Comment on above: Performed By: #### A BG #### [facility] [address] [place] [address] [place] [address] Instructional Manager: Naima Faith MD Positive Base Excess 10.1 mmol/L High 0.0-2.0 [facility] Comment on above: Performed By: #### A BG #### [address] [place] [address] Instructional Manager: Naima Faith MD Site Drawn Right Brachial Artery Normal [facility] Comment on above: Performed By: #### A BG #### [address] [place] [address] Instructional Manager: Naima Faith MD Text for Respiratory Called to RN on 02/15/2025 at 06:[address] [facility] Comment on above: Performed By: #### A BG #### [address] [place] [address] Instructional Manager: Naima Faith MD Total Hb 13.6 g/dl Normal 12.0-16.0 [facility] Comment on above: Performed By: #### A BG #### [facility] [address] [place] [address] [place] [address] Instructional Manager: Naima Faith MD Basic Metab w/rfx MGon 02-15 Anion gap [Moles/Vol] 9 mmol/L Normal 9-16 [facility] Comment on above: Performed By: #### C DP, CP, TROPI, BNP #### [address] [place] [address] Instructional Manager: Naima Faith MD BUN/CRE Ratio 32 High 9-20 [facility] Comment on above: Performed By: #### C DP, CP, TROPI, BNP #### [facility] [address] [place] [address] Instructional Manager: Naima Faith MD Calcium [Mass/Vol] 8.7 mg/dL Normal 8.6-10.4 [facility] Comment on above: Performed By: #### C DP, CP, TROPI, BNP #### [facility] [address] [place] [address] Instructional Manager: Naima Faith MD Chloride [Moles/Vol] 96 mmol/L Low 98-107 [facility] Comment on above: Performed By: #### C DP, CP, TROPI, BNP #### [facility] [address] [place] [address] [place] [address] Instructional Manager: Naima Faith MD CO2 [Moles/Vol] 36 mmol/L High 20-31 [facility] Comment on above: Performed By: #### C DP, CP, TROPI, BNP #### [facility] [address] [place] [address] [place] [address] Instructional Manager: Naima Faith MD Creatinine [Mass/Vol] 0.5 mg/dL Low 0.70-1.20 [facility] Comment on above: Performed By: #### C DP, CP, TROPI, BNP #### [facility] [address] [place] [address] Instructional Manager: Naima Faith MD GFR/1.73 sq M.predicted among non-blacks MDRD (S/P/Bld) [Vol rate/Area] mL/min/{1.73_m2} Normal >60 [facility] Comment on above: Result Comment: These results [...] renal tubular secretion. Performed By: #### C DP, CP, TROPI, BNP #### [address] [place], [place] [id number] Instructional Manager: Naima Faith MD Glucose [Mass/Vol] 122 mg/dL High 74-99 [facility] Comment on above: Performed By: #### C DP, CP, TROPI, BNP #### [facility] [address] [place], [place] [id number] Instructional Manager: Naima Faith MD Potassium [Moles/Vol] 4.0 mmol/L Normal 3.7-5.3 [facility] Comment on above: Performed By: #### C DP, CP, TROPI, BNP #### [address] [place], [place] 0822983 Instructional Manager: Naima Faith MD Sodium [Moles/Vol] 141 mmol/L Normal 136-145 [facility] Comment on above: Performed By: #### C DP, CP, TROPI, BNP #### [address] [place], [place] 0802583 Instructional Manager: Naima Faith MD Urea nitrogen [Mass/Vol] 16 mg/dL Normal 8-23 [facility] Comment on above: Performed By: #### C DP, CP, TROPI, BNP #### [address] [place], [place] [id number] Instructional Manager: Naima Faith MD Basic Metabolic Panel w/ Ref kwabena to MGon 02-15-2025 Anion gap [Moles/Vol] 9 mmol/L 9 - 16 mmol/L [facility] Calcium [Mass/Vol] 8.7 mg/dL 8.6 - 10. 4 mg/dL [facility] Chloride [Moles/Vol] 96 mmol/L Low 98 - 10 7 mmol/L [facility] CO2 [Moles/Vol] 36 mmol/L High 20 - 31 mmol/L [facility] Creatinine [Mass/Vol] 0.5 mg/dL Low 0.70 - 1.20 mg/dL [facility] Est, Glom Filt Rate - PINF [facility] Glucose [Mass/Vol] 122 mg/dL High 74 - 99 mg/dL [facility] Interpretation and review of laboratory results Abnormal [facility] Potassium [Moles/Vol] 4 mmol/L 3.7 - 5.3 mmol/L [facility] Sodium [Moles/Vol] 141 mmol/L 136 - 145 mmol/L [facility] Urea nitrogen [Mass/Vol] 16 mg/dL 8 - 23 mg/dL [facility] Urea nitrogen/Creatinine [Mass ratio] 32 mg/mg High 9 - [address] [facility] Blood Gas, Arterialon 2024 Arterial patency Wrist artery --pre arterial puncture YES [facility] Body site Right Brachial Artery [facility] Carboxyhemoglobin (Bld) [Mass fraction] 1.9 % 0.0 - 5.0 % [facility] HCO3 (Bld) [Moles/Vol] 40.2 mmol/L High 22 - 26 mmol/L [facility] Hemoglobin (Bld) [Mass/Vol] 13.6 g/dL 12.0 - 16.0 g/dl [facility] Interpretation and review of laboratory results Abnormal [facility] Methemoglobin 0.3 % 0.0 - 1.9 % [facility] Oxygen gas flow Oxygen delivery system Cannula [facility] Oxygen saturation in Blood 91.2 % Low 95 - 98 % [facility] Oxygen/Inspired gas Respiratory system --on ventilator 28 [facility] Oxyhemoglobin (Bld) [Mass fraction] 89.2 % Low 95.0 - 98.0 % [facility] pCO2, Art, Temp Adj 85.6 Critically high 35.0 - 45.0 [facility] pCO2, Arterial 85.6 Critically high [facility] pH, Art, Temp Adj 7.29 Critically low 7.350 - 7.450 [facility] pH, Arterial 7.29 Low 7.35 - 7.45 [facility] pO2, Art, Temp Adj 66 Low [facility] pO2, Arterial 66 Low [facility] Positive Base Excess, Art 10.1 mmol/L High 0.0 - 2.0 mmol/L [facility] Text for Respiratory Called to RN on 02/15/2025 at 06:[address] [facility] CBC auto differentialon 050 Basophils (Bld) [#/Vol] 0 10*3/uL [facility] Basophils/100 WBC (Bld) 0 % 0 - 2 % [facility] Eosinophils (Bld) [#/Vol] 0.12 10*3/uL [facility] Eosinophils/100 WBC (Bld) 2 % 1 - 4 % [facility] Erythrocyte distribution width (RBC) [Ratio] 18.5 % High 11.8 - 14.4 % [facility] Hematocrit (Bld) [Volume fraction] 45.6 % 40.7 - 50.3 % [facility] Hemoglobin (Bld) [Mass/Vol] 12.7 g/dL Low 13.0 - 17.0 g/dL [facility] Immature granulocytes (Bld) [#/Vol] 0.06 10*3/uL [facility] Immature granulocytes/100 WBC (Bld) 1 % High 0 [facility] Interpretation and review of laboratory results Abnormal [facility] Lymphocytes/100 WBC (Bld) 22 % Low 24 - 43 % [facility] Lymphocytes/100 WBC (Bld) 1.32 % [facility] MCH (RBC) [Entitic mass] 25 pg Low 25.2 - 33.5 pg [facility] MCHC (RBC) [Mass/Vol] 27.9 g/dL Low 28.4 - 34.8 g/dL [facility] MCV (RBC) [Entitic vol] 89.9 fL 82.6 - 102.9 fL [facility] Monocytes/100 WBC (Bld) 6 % 3 - 12 % [facility] Monocytes/100 WBC (Bld) 0.36 % [facility] Morphology Gustavo (Bld) [Interp] Normal [facility] Neutrophils/100 WBC (Bld) 69 % High 36 - 65 % [facility] Nucleated RBC/100 WBC (Bld) [Ratio] 0 % 0.0 per 100 WBC [facility] Platelet mean volume (Bld) [Entitic vol] 10.7 fL 8.1 - 13.5 fL [facility] Platelets (Bld) [#/Vol] 151 10*3/uL [facility] RBC (Bld) [#/Vol] 5.07 10*6/uL 4.21 - 5.7 7 m/uL [facility] Segmented neutrophils/100 WBC (Bld) 4.14 % [facility] WBC other (Bld) [#/Vol] [address] [facility] CBC with Diffon 02-15-2025 Abs. Basophil 0.00 k/uL Normal 0.0-0.2 [facility] Comment on above: Performed By: #### C DP, CP, TROPI, BNP #### [facility] [address] [place] [address] [place] [id number] Instructional Manager: Naima Faith MD Abs.Imm.Granulocyte 0.06 k/uL Normal 0.00-0.30 [facility] Comment on above: Performed By: #### C DP, CP, TROPI, BNP #### [facility] [address] [place] [address] [place], [place] [phone] Instructional Manager: Naima Faith MD Abs.Neutrophil (Seg) 4.14 k/uL Normal 1.50-8.10 [facility] Comment on above: Performed By: #### C DP, CP, TROPI, BNP #### [address] [place] [address] Instructional Manager: aNima Faith MD Basophils/100 WBC (Bld) 0 % Normal 0-2 [facility] Comment on above: Performed By: #### C DP, CP, TROPI, BNP #### [facility] [address] [address] Instructional Manager: Naima Faith MD Eosinophils (Bld) [#/Vol] 0.12 10*3/uL Normal 0.00-0.44 [facility] Comment on above: Performed By: #### C DP, CP, TROPI, BNP #### [facility] [address] [place] [address] Instructional Manager: Naima Faith MD Eosinophils/100 WBC (Bld) 2 % Normal 1-4 [facility] Comment on above: Performed By: #### C DP, CP, TROPI, BNP #### [address] [place] [address] Instructional Manager: Naima Faith MD Immature granulocytes/100 WBC (Bld) 1 % High 0 [facility] Comment on above: Performed By: #### C DP, CP, TROPI, BNP #### [address] [place] [address] Instructional Manager: Naima Faith MD Lymphocytes (Bld) [#/Vol] 1.32 10*3/uL Normal 1.10-3.70 [facility] Comment on above: Performed By: #### C DP, CP, TROPI, BNP #### [facility] [address] [place], [place] [address] Instructional Manager: Naima Faith MD Lymphocytes/100 WBC (Bld) 22 % Low 24-43 [facility] Comment on above: Performed By: #### C DP, CP, TROPI, BNP #### [facility] [address] [place] [id number] Instructional Manager: Naima Faith MD Monocytes (Bld) [#/Vol] 0.36 10*3/uL Normal 0.10-1.20 [facility] Comment on above: Performed By: #### C DP, CP, TROPI, BNP #### [facility] [address] [place], [place] [id number] Instructional Manager: Naima Faith MD Monocytes/100 WBC (Bld) 6 % Normal 3-12 [facility] Comment on above: Performed By: #### C DP, CP, TROPI, BNP #### [facility] [address] [place], [place] [phone] Instructional Manager: Naima Faith MD Morphology Gustavo (Bld) [Interp] Normal Normal [facility] Comment on above: Performed By: #### C DP, CP, TROPI, BNP #### [address] [place], [facility] Instructional Manager: Naima Faith MD Neutrophil (Seg) 69 % High 36-65 [facility] Comment on above: Performed By: #### C DP, CP, TROPI, BNP #### [address] [place], [place] [id number] Instructional Manager: Naima Faith MD Erythrocyte distribution width (RBC) [Ratio] 18.5 % High 11.8-14.4 [facility] Comment on above: Performed By: #### C DP, CP, TROPI, BNP #### [address] [place], [facility] Instructional Manager: Naima Faith MD Hematocrit (Bld) [Volume fraction] 45.6 % Normal 40.7-50.3 [facility] Comment on above: Performed By: #### C DP, CP, TROPI, BNP #### [address] [place], [place] [id number] Instructional Manager: Naima Faith MD Hemoglobin (Bld) [Mass/Vol] 12.7 g/dL Low 13.0-17.0 [facility] Comment on above: Performed By: #### C DP, CP, TROPI, BNP #### [facility] [address] [place], [place] [address] Instructional Manager: Naima Faith MD MCH (RBC) [Entitic mass] 25.0 pg Low 25.2-33.5 [facility] Comment on above: Performed By: #### C DP, CP, TROPI, BNP #### [address] [place] [address] Instructional Manager: Naima Faith MD MCHC (RBC) [Mass/Vol] 27.9 g/dL Low 28.4-34.8 [facility] Comment on above: Performed By: #### C DP, CP, TROPI, BNP #### [address] [place] [address] Instructional Manager: Naima Faith MD MCV (RBC) [Entitic vol] 89.9 fL Normal 82.6-102.9 [facility] Comment on above: Performed By: #### C DP, CP, TROPI, BNP #### [address] [place] [address] Instructional Manager: Naima Faith MD NRBC Automated 0.0 per [address] [facility] Comment on above: Performed By: #### C DP, CP, TROPI, BNP #### [address] [address] [place], [place] [address] Instructional Manager: Naima Faith MD Platelet mean volume (Bld) [Entitic vol] 10.7 fL Normal 8.1-13.5 [facility] Comment on above: Performed By: #### C DP, CP, TROPI, BNP #### [address] [place], [facility]83 Instructional Manager: Naima Faith MD Platelets (Bld) [#/Vol] 151 10*3/uL Normal 138-453 [facility] Comment on above: Performed By: #### C DP, CP, TROPI, BNP #### [facility] [address] [place], [facility]83 Instructional Manager: Naima Faith MD RBC (Bld) [#/Vol] 5.07 10*6/uL Normal 4.21-5.77 [facility] Comment on above: Performed By: #### C DP, CP, TROPI, BNP #### [facility] [address] [place], [facility]83 Instructional Manager: Naima Faith MD WBC (Bld) [#/Vol] 6.0 10*3/uL Normal 3.5-11.3 [facility] Comment on above: Performed By: #### C DP, CP, TROPI, BNP #### [facility] [address] [place] [address] Dr. Schmitt, [facility] Instructional Manager: Naima Faith MD Arterial Blood Gaseson 02-14 Ethan Test YES Normal [facility] Comment on above: Performed By: #### C DP, CP, TROPI, BNP #### [facility] [address] [place] [address] Dr. Schmitt, [facility] ( Instructional Manager: Naima Faith MD Body Temp. 37.0 [facility] Comment on above: Performed By: #### C DP, CP, TROPI, BNP #### [facility] [address] [place], [facility] ( Instructional Manager: Naima Faith MD FIO2 [address] [facility] Comment on above: Performed By: #### C DP, CP, TROPI, BNP #### [facility] [address] [place], [facility]83 Instructional Manager: Naima Faith MD HCO3 (Bld) [Moles/Vol] 39.0 mmol/L High 22-26 [facility] Comment on above: Performed By: #### C DP, CP, TROPI, BNP #### [facility] [address] [place], [place] [id number] Instructional Manager: Naima Faith MD O2 Device/Flow/% BIPAP Normal [facility] Comment on above: Performed By: #### C DP, CP, TROPI, BNP #### [facility] [address] [place], [place] [id number] Instructional Manager: Naima Faith MD Oxygen (Bld) [Partial pressure] 129.5 mm[Hg] High 80.0-100.0 [facility] Comment on above: Performed By: #### C DP, CP, TROPI, BNP #### [address] [place], [place] [id number] Instructional Manager: Naima Faith MD Oxygen saturation in Blood 98.3 % High 95-98 [facility] Comment on above: Performed By: #### C DP, CP, TROPI, BNP #### [address] [place], [place] [id number] Instructional Manager: Naima Faith MD pCO2 74.2 mmHg Critically high 35-45 [facility] Comment on above: Performed By: #### C DP, CP, TROPI, BNP #### [address] [place], [place] 686[address]83 Instructional Manager: Naima Faith MD pCO2 Adj'd for Temp 74.2 Critically high 35.0-45.0 [facility] Comment on above: Performed By: #### C DP, CP, TROPI, BNP #### [address] [place], [place] [id number] Instructional Manager: Naima Faith MD pH (Bld) 7.339 [pH] Low 7.35-7.45 [facility] Comment on above: Performed By: #### C DP, CP, TROPI, BNP #### [address] [place], [place] 134[address]83 Instructional Manager: Naima Faith MD pH Adjst'd for Temp. 7.339 Low 7.350-7.450 [facility] Comment on above: Performed By: #### C DP, CP, TROPI, BNP #### [facility] [address] [place] [address] Dr. [place], [place] [id number] Instructional Manager: Naima Faith MD pO2 Adjst'd for Temp 129.5 mmHg High 80.0-100.0 [facility] Comment on above: Performed By: #### C DP, CP, TROPI, BNP #### [facility] [address] [place] [address] Dr. [place], [place] [id number] Instructional Manager: Naima Faith MD Positive Base Excess 9.8 mmol/L High 0.0-2.0 [facility] Comment on above: Performed By: #### C DP, CP, TROPI, BNP #### [facility] [address] [place] [address] Dr. [place]mitt, [place] [id number] Instructional Manager: Naima Faith MD Site Drawn Right Radial Artery Normal [facility] Comment on above: Performed By: #### C DP, CP, TROPI, BNP #### [address] [place] [address] Instructional Manager: Naima Faith MD Text for Respiratory Called to RN on 02/14/2025 at 06:07 Normal [facility] Comment on above: Performed By: #### C DP, CP, TROPI, BNP #### [facility] [address] [place] [address] [place] [address] Instructional Manager: Naima Faith MD Basic Metab w/rfx MGon 02-14 Anion gap [Moles/Vol] 6 mmol/L Low 9-16 [facility] Comment on above: Performed By: #### C DP, BMPX #### [facility] [address] [place] [address] [place] [address] Instructional Manager: Naima Faith MD BUN/CRE Ratio 32 High 9-20 [facility] Comment on above: Performed By: #### C DP, BMPX #### [facility] [address] [place] [address] Instructional Manager: Naima Faith MD Calcium [Mass/Vol] 9.0 mg/dL Normal 8.6-10.4 [facility] Comment on above: Performed By: #### C DP, BMPX #### [facility] [address] [place] [address] Instructional Manager: Naima Faith MD Chloride [Moles/Vol] 96 mmol/L Low 98-107 [facility] Comment on above: Performed By: #### C DP, BMPX #### [facility] [address] [place] [address] Instructional Manager: Naima Faith MD CO2 [Moles/Vol] 38 mmol/L High 20-31 [facility] Comment on above: Performed By: #### C DP, BMPX #### [facility] [address] [place] [address] Instructional Manager: Naima Faith MD Creatinine [Mass/Vol] 0.5 mg/dL Low 0.70-1.20 [facility] Comment on above: Performed By: #### C DP, BMPX #### [facility] [address] [place] [address] Instructional Manager: Naima Faith MD GFR/1.73 sq M.predicted among non-blacks MDRD (S/P/Bld) [Vol rate/Area] mL/min/{1.73_m2} Normal >60 [facility] Comment on above: Result Comment: These results [...] renal tubular secretion. Performed By: #### C DP, BMPX #### [facility] [address] [place] [address] [place] [address] Instructional Manager: Naima Faith MD Glucose [Mass/Vol] 109 mg/dL High 74-99 [facility] Comment on above: Performed By: #### C DP, BMPX #### [address] [place], [place] [id number] Instructional Manager: Naima Faith MD Potassium [Moles/Vol] 4.6 mmol/L Normal 3.7-5.3 [facility] Comment on above: Result Comment: Spec imen hemolysis has exceeded the interference as defined by Gold. Value may be falsely increased. Suggest recollection if clinically indicated. Performed By: #### C DP, BMPX #### [address] [place], [place] [id number] Instructional Manager: Naima Faith MD Sodium [Moles/Vol] 140 mmol/L Normal 136-145 [facility] Comment on above: Performed By: #### C DP, BMPX #### [address] [place] [address] Instructional Manager: Naima Faith MD Urea nitrogen [Mass/Vol] 16 mg/dL Normal 8-23 [facility] Comment on above: Performed By: #### C DP, BMPX #### [address] [place] [address] Instructional Manager: Naima Faith MD Basic Metabolic Panel w/ Ref kwabena to MGon 02-14-2025 Anion gap [Moles/Vol] 6 mmol/L Low 9 - 16 mmol/L [facility] Calcium [Mass/Vol] 9 mg/dL 8.6 - 10. 4 mg/dL [facility] Chloride [Moles/Vol] 96 mmol/L Low 98 - 10 7 mmol/L [facility] CO2 [Moles/Vol] 38 mmol/L High 20 - 31 mmol/L [facility] Creatinine [Mass/Vol] 0.5 mg/dL Low 0.70 - 1.20 mg/dL [facility] Est, Glom Filt Rate - PINF [facility] Glucose [Mass/Vol] 109 mg/dL High 74 - 99 mg/dL [facility] Interpretation and review of laboratory results Abnormal [facility] Potassium [Moles/Vol] 4.6 mmol/L 3.7 - 5.3 mmol/L [facility] Sodium [Moles/Vol] 140 mmol/L 136 - 145 mmol/L [facility] Urea nitrogen [Mass/Vol] 16 mg/dL 8 - 23 mg/dL [facility] Urea nitrogen/Creatinine [Mass ratio] 32 mg/mg High 9 - [address] [facility] Blood Gas, Arterialon 2024 Arterial patency Wrist artery --pre arterial puncture YES [facility] Body site Right Radial Artery [facility] HCO3 (Bld) [Moles/Vol] 39 mmol/L High 22 - 26 mmol/L [facility] Interpretation and review of laboratory results Abnormal [facility] Oxygen gas flow Oxygen delivery system BIPAP [facility] Oxygen/Inspired gas Respiratory system --on ventilator 32 [facility] pCO2, Art, Temp Adj 74.2 Critically high 35.0 - 45.0 [facility] pCO2, Arterial 74.2 Critically high [facility] pH, Art, Temp Adj 7.339 Low 7.350 - 7.450 [facility] pH, Arterial 7.339 Low 7.35 - 7.45 [facility] pO2, Art, Temp Adj 129.5 High [facility] pO2, Arterial 129.5 High [facility] Positive Base Excess, Art 9.8 mmol/L High 0.0 - 2.0 mmol/L [facility] CBC auto differentialon 05-0 Basophils (Bld) [#/Vol] 0 10*3/uL [facility] Basophils/100 WBC (Bld) 0 % 0 - 2 % [facility] Eosinophils (Bld) [#/Vol] 0.12 10*3/uL [facility] Eosinophils/100 WBC (Bld) 2 % 1 - 4 % [facility] Erythrocyte distribution width (RBC) [Ratio] 18.7 % High 11.8 - 14.4 % [facility] Hematocrit (Bld) [Volume fraction] 48.3 % 40.7 - 50.3 % [facility] Hemoglobin (Bld) [Mass/Vol] 13.5 g/dL 13.0 - 17.0 g/dL [facility] Immature granulocytes (Bld) [#/Vol] 0.06 10*3/uL [facility] Immature granulocytes/100 WBC (Bld) 1 % High 0 [facility] Interpretation and review of laboratory results Abnormal [facility] Lymphocytes/100 WBC (Bld) 21 % Low 24 - 43 % [facility] Lymphocytes/100 WBC (Bld) 1.24 % [facility] MCH (RBC) [Entitic mass] 24.7 pg Low 25.2 - 33.5 pg [facility] MCHC (RBC) [Mass/Vol] 28 g/dL Low 28.4 - 34.8 g/dL [facility] MCV (RBC) [Entitic vol] 88.5 fL 82.6 - 102.9 fL [facility] Monocytes/100 WBC (Bld) 7 % 3 - 12 % [facility] Monocytes/100 WBC (Bld) 0.41 % [facility] Morphology Gustavo (Bld) [Interp] Normal [facility] Neutrophils/100 WBC (Bld) 69 % High 36 - 65 % [facility] Nucleated RBC/100 WBC (Bld) [Ratio] 0 % 0.0 per 100 WBC [facility] Platelet mean volume (Bld) [Entitic vol] 10.2 fL 8.1 - 13.5 fL [facility] Platelets (Bld) [#/Vol] 135 10*3/uL Low [facility] RBC (Bld) [#/Vol] 5.46 10*6/uL 4.21 - 5.7 7 m/uL [facility] Segmented neutrophils/100 WBC (Bld) 4.07 % [facility] WBC other (Bld) [#/Vol] 5.[address] [facility] CBC with Diffon 02-14-2025 Abs. Basophil 0.00 k/uL Normal 0.0-0.2 [facility] Comment on above: Performed By: #### C DP, BMPX #### [facility] [address] [place] [address] Instructional Manager: Naima Faith MD Abs.Imm.Granulocyte 0.06 k/uL Normal 0.00-0.30 [facility] Comment on above: Performed By: #### C DP, BMPX #### [address] [place], [facility]83 Instructional Manager: Naima Faith MD Abs.Neutrophil (Seg) 4.07 k/uL Normal 1.50-8.10 [facility] Comment on above: Performed By: #### C DP, BMPX #### [address] [place], [place] [id number] Instructional Manager: Naima Faith MD Basophils/100 WBC (Bld) 0 % Normal 0-2 [facility] Comment on above: Performed By: #### C DP, BMPX #### [facility] [address] [place] [address] Dr. [place], [facility]83 Instructional Manager: Naima Faith MD Eosinophils (Bld) [#/Vol] 0.12 10*3/uL Normal 0.00-0.44 [facility] Comment on above: Performed By: #### C DP, BMPX #### [address] [place], [place] [id number] Instructional Manager: Naima Faith MD Eosinophils/100 WBC (Bld) 2 % Normal 1-4 [facility] Comment on above: Performed By: #### C DP, BMPX #### [facility] [address] [place], [place] [id number] Instructional Manager: Naima Faith MD Immature granulocytes/100 WBC (Bld) 1 % High 0 [facility] Comment on above: Performed By: #### C DP, BMPX #### [facility] [address] [place], [facility]83 Instructional Manager: Naima Faith MD Lymphocytes (Bld) [#/Vol] 1.24 10*3/uL Normal 1.10-3.70 [facility] Comment on above: Performed By: #### C DP, BMPX #### [facility] [address] [place] [address] Instructional Manager: Niama Faith MD Lymphocytes/100 WBC (Bld) 21 % Low 24-43 [facility] Comment on above: Performed By: #### C DP, BMPX #### [facility] [address] [place] [address] Dr. [place], [place] 9773983 Instructional Manager: Naima Faith MD Monocytes (Bld) [#/Vol] 0.41 10*3/uL Normal 0.10-1.20 [facility] Comment on above: Performed By: #### C DP, BMPX #### [facility] [address] [place], [facility] Instructional Manager: Naima Faith MD Monocytes/100 WBC (Bld) 7 % Normal 3-12 [facility] Comment on above: Performed By: #### C DP, BMPX #### [facility] [address] [place] [address] Instructional Manager: Naima Faith MD Morphology Gustavo (Bld) [Interp] Normal Normal [facility] Comment on above: Performed By: #### C DP, BMPX #### [facility] [address] [place], [place] 1614783 Instructional Manager: Naima Faith MD Neutrophil (Seg) 69 % High 36-65 [facility] Comment on above: Performed By: #### C DP, BMPX #### [facility] [address] [place], [place] 8983483 Instructional Manager: Naima Faith MD Erythrocyte distribution width (RBC) [Ratio] 18.7 % High 11.8-14.4 [facility] Comment on above: Performed By: #### C DP, BMPX #### [facility] [address] [place], [place] 6502083 Instructional Manager: Naima Faith MD Hematocrit (Bld) [Volume fraction] 48.3 % Normal 40.7-50.3 [facility] Comment on above: Performed By: #### C DP, BMPX #### [address] [place], [place] 3956783 Instructional Manager: Naima Faith MD Hemoglobin (Bld) [Mass/Vol] 13.5 g/dL Normal 13.0-17.0 [facility] Comment on above: Performed By: #### C DP, BMPX #### [address] [place], [place] 0081583 Instructional Manager: Naima Faith MD MCH (RBC) [Entitic mass] 24.7 pg Low 25.2-33.5 [facility] Comment on above: Performed By: #### C DP, BMPX #### [facility] [address] [place] [address] Dr. [place], [place] [id number] Instructional Manager: Naima Faith MD MCHC (RBC) [Mass/Vol] 28.0 g/dL Low 28.4-34.8 [facility] Comment on above: Performed By: #### C DP, BMPX #### [facility] [address] [place] [address] Instructional Manager: Naima Faith MD MCV (RBC) [Entitic vol] 88.5 fL Normal 82.6-102.9 [facility] Comment on above: Performed By: #### C DP, BMPX #### [address] [place], [place] 9212383 Instructional Manager: Naima Faith MD NRBC Automated 0.0 per [address] [facility] Comment on above: Performed By: #### C DP, BMPX #### [address] [place], [place] [id number] Instructional Manager: Naima Faith MD Platelet mean volume (Bld) [Entitic vol] 10.2 fL Normal 8.1-13.5 [facility] Comment on above: Performed By: #### C DP, BMPX #### [address] [place], [place] 1032983 Instructional Manager: Naima Faith MD Platelets (Bld) [#/Vol] 135 10*3/uL Low 138-453 [facility] Comment on above: Performed By: #### C DP, BMPX #### [address] [place], [place] 9593283 Instructional Manager: Naima Faith MD RBC (Bld) [#/Vol] 5.46 10*6/uL Normal 4.21-5.77 [facility] Comment on above: Performed By: #### C DP, BMPX #### [address] [place] [address] Instructional Manager: Naima Faith MD WBC (Bld) [#/Vol] 5.9 10*3/uL Normal 3.5-11.3 [facility] Comment on above: Performed By: #### C DP, BMPX #### [address] [place] [address] Instructional Manager: Naima Faith MD EKG Rhythm Stripon [facility] Arterial Blood Gaseson 02-13 Ethan Test YES [facility] Comment on above: Performed By: #### C DP, CP, TROPI, BNP #### [facility] [address] [place], [place] 3182883 Instructional Manager: Naima Faith MD Body Temp. 37.0 [facility] Comment on above: Performed By: #### C DP, CP, TROPI, BNP #### [facility] [address] [place], [place] 4195583 Instructional Manager: Naima Faith MD FIO2 24 [facility] Comment on above: Performed By: #### C DP, CP, TROPI, BNP #### [facility] [address] [place], [place] 1564983 Instructional Manager: Naima Faith MD HCO3 (Bld) [Moles/Vol] 39.5 mmol/L High 22-26 [facility] Comment on above: Performed By: #### C DP, CP, TROPI, BNP #### [facility] [address] [place], [place] 0629083 Instructional Manager: Naima Faith MD O2 Device/Flow/% Cannula [facility] Comment on above: Performed By: #### C DP, CP, TROPI, BNP #### [facility] [address] [place] [address] Instructional Manager: Naima Faith MD Oxygen (Bld) [Partial pressure] 63.4 mm[Hg] Low 80.0-100.0 [facility] Comment on above: Performed By: #### C DP, CP, TROPI, BNP #### [facility] [address] [place], [place] 9630183 Instructional Manager: Naima Faith MD Oxygen saturation in Blood 90.5 % Low 95-98 [facility] Comment on above: Performed By: #### C DP, CP, TROPI, BNP #### [address] [place], [place] 052[address]83 Instructional Manager: Naima Faith MD pCO2 71.6 mmHg Critically high 35-45 [facility] Comment on above: Performed By: #### C DP, CP, TROPI, BNP #### [address] [place] [address] Instructional Manager: Naima Faith MD pCO2 Adj'd for Temp 71.6 Critically high 35.0-45.0 [facility] Comment on above: Performed By: #### C DP, CP, TROPI, BNP #### [address] [place], [place] 3165583 Instructional Manager: Naima Faith MD pH (Bld) 7.359 [pH] Normal 7.35-7.45 [facility] Comment on above: Performed By: #### C DP, CP, TROPI, BNP #### [address] [place], [place] 1334383 Instructional Manager: Naima Faith MD pH Adjst'd for Temp. 7.359 Normal 7.350-7.450 [facility] Comment on above: Performed By: #### C DP, CP, TROPI, BNP #### [address] [place], [place] 4661483 Instructional Manager: Naima Faith MD pO2 Adjst'd for Temp 63.4 mmHg Low 80.0-100.0 [facility] Comment on above: Performed By: #### C DP, CP, TROPI, BNP #### [address] [place] [address] Instructional Manager: Naima Faith MD Positive Base Excess 10.6 mmol/L High 0.0-2.0 [facility] Comment on above: Performed By: #### C DP, CP, TROPI, BNP #### [facility] [address] [place], [place] [id number] Instructional Manager: Naima Faith MD Site Drawn Right Radial Artery [facility] Comment on above: Performed By: #### C DP, CP, TROPI, BNP #### [facility] [address] [place], [place] [id number] Instructional Manager: Naima Faith MD Text for Respiratory Called to PROVIDER on 02/13/2025 at 10:14 [facility] Comment on above: Performed By: #### C DP, CP, TROPI, BNP #### [address] [place] [address] Instructional Manager: Naima Faith MD Basic Metab w/rfx MGon 02-13 Anion gap [Moles/Vol] 7 mmol/L Low 9-16 [facility] Comment on above: Performed By: #### C DP, CP, TROPI, BNP #### [facility] [address] [place] [address] Dr. [place], [place] [id number] Instructional Manager: Naima Faith MD BUN/CRE Ratio 28 High 9-20 [facility] Comment on above: Performed By: #### C DP, CP, TROPI, BNP #### [address] [place] [address] Instructional Manager: Naima Faith MD Calcium [Mass/Vol] 9.1 mg/dL Normal 8.6-10.4 [facility] Comment on above: Performed By: #### C DP, CP, TROPI, BNP #### [facility] [address] [place] [address] Instructional Manager: Naima Faith MD Chloride [Moles/Vol] 96 mmol/L Low 98-107 [facility] Comment on above: Performed By: #### C DP, CP, TROPI, BNP #### [facility] [address] [place] [address] Dr. [place], [place] [id number] Instructional Manager: Naima Faith MD CO2 [Moles/Vol] 36 mmol/L High 20-31 [facility] Comment on above: Performed By: #### C DP, CP, TROPI, BNP #### [facility] [address] [place], [place] 9636583 Instructional Manager: Naima Faith MD Creatinine [Mass/Vol] 0.5 mg/dL Low 0.70-1.20 [facility] Comment on above: Performed By: #### C DP, CP, TROPI, BNP #### [address] [place] [address] Instructional Manager: Naima Faith MD GFR/1.73 sq M.predicted among non-blacks MDRD (S/P/Bld) [Vol rate/Area] mL/min/{1.73_m2} Normal >60 [facility] Comment on above: Result Comment: These results [...] renal tubular secretion. Performed By: #### C DP, CP, TROPI, BNP #### [address] [place] [address] Instructional Manager: Naima Faith MD Glucose [Mass/Vol] 117 mg/dL High 74-99 [facility] Comment on above: Performed By: #### C DP, CP, TROPI, BNP #### [facility] [address] [place] [address] Instructional Manager: Naima Faith MD Potassium [Moles/Vol] 4.4 mmol/L Normal 3.7-5.3 [facility] Comment on above: Performed By: #### C DP, CP, TROPI, BNP #### [facility] [address] [place] [address] Instructional Manager: Naima Faith MD Sodium [Moles/Vol] 139 mmol/L Normal 136-145 [facility] Comment on above: Performed By: #### C DP, CP, TROPI, BNP #### [facility] [address] [place] [address] Instructional Manager: Naima Faith MD Urea nitrogen [Mass/Vol] 14 mg/dL Normal 8-23 [facility] Comment on above: Performed By: #### C DP, CP, TROPI, BNP #### [facility] [address] [place] [address] Instructional Manager: Naima Faith MD Basic Metabolic Panel w/ Ref kwabena to MGon 02-13-2025 Anion gap [Moles/Vol] 7 mmol/L Low 9 - 16 mmol/L [facility] Calcium [Mass/Vol] 9.1 mg/dL 8.6 - 10. 4 mg/dL [facility] Chloride [Moles/Vol] 96 mmol/L Low 98 - 10 7 mmol/L [facility] CO2 [Moles/Vol] 36 mmol/L High 20 - 31 mmol/L [facility] Creatinine [Mass/Vol] 0.5 mg/dL Low 0.70 - 1.20 mg/dL [facility] Est, Glom Filt Rate - PINF [facility] Glucose [Mass/Vol] 117 mg/dL High 74 - 99 mg/dL [facility] Interpretation and review of laboratory results Abnormal [facility] Potassium [Moles/Vol] 4.4 mmol/L 3.7 - 5.3 mmol/L [facility] Sodium [Moles/Vol] 139 mmol/L 136 - 145 mmol/L [facility] Urea nitrogen [Mass/Vol] 14 mg/dL 8 - 23 mg/dL [facility] Urea nitrogen/Creatinine [Mass ratio] 28 mg/mg High 9 - [address] [facility] Blood Gas, Arterialon 2024 Arterial patency Wrist artery --pre arterial puncture YES [facility] Body site Right Radial Artery [facility] HCO3 (Bld) [Moles/Vol] 39.5 mmol/L High 22 - 26 mmol/L [facility] Interpretation and review of laboratory results Abnormal [facility] Oxygen gas flow Oxygen delivery system Cannula [facility] Oxygen saturation in Blood 90.5 % Low 95 - 98 % [facility] Oxygen/Inspired gas Respiratory system --on ventilator 24 [facility] pCO2, Art, Temp Adj 71.6 Critically high 35.0 - 45.0 [facility] pCO2, Arterial 71.6 Critically high [facility] pH, Art, Temp Adj 7.359 7.350 - 7.450 [facility] pH, Arterial 7.359 7.35 - 7.45 [facility] pO2, Art, Temp Adj 63.4 Low [facility] pO2, Arterial 63.4 Low [facility] Positive Base Excess, Art 10.6 mmol/L High 0.0 - 2.0 mmol/L [facility] Text for Respiratory Called to PROVIDER on 02/13/2025 at 10:[address] [facility] CBC auto differentialon Basophils (Bld) [#/Vol] 0.07 10*3/uL [facility] Basophils/100 WBC (Bld) 1 % 0 - 2 % [facility] Eosinophils (Bld) [#/Vol] 0.13 10*3/uL [facility] Eosinophils/100 WBC (Bld) 2 % 1 - 4 % [facility] Erythrocyte distribution width (RBC) [Ratio] 18.1 % High 11.8 - 14.4 % [facility] Hematocrit (Bld) [Volume fraction] 49.6 % 40.7 - 50.3 % [facility] Hemoglobin (Bld) [Mass/Vol] 14 g/dL 13.0 - 17.0 g/dL [facility] Immature granulocytes (Bld) [#/Vol] 0.07 10*3/uL [facility] Immature granulocytes/100 WBC (Bld) 1 % High 0 [facility] Interpretation and review of laboratory results Abnormal [facility] Lymphocytes/100 WBC (Bld) 28 % 24 - 43 % [facility] Lymphocytes/100 WBC (Bld) 1.85 % [facility] MCH (RBC) [Entitic mass] 25 pg Low 25.2 - 33.5 pg [facility] MCHC (RBC) [Mass/Vol] 28.2 g/dL Low 28.4 - 34.8 g/dL [facility] MCV (RBC) [Entitic vol] 88.7 fL 82.6 - 102.9 fL [facility] Monocytes/100 WBC (Bld) 7 % 3 - 12 % [facility] Monocytes/100 WBC (Bld) 0.46 % [facility] Morphology Gustavo (Bld) [Interp] HYPOCHROMIA PRESENT [facility] Neutrophils/100 WBC (Bld) 61 % 36 - 65 % [facility] Nucleated RBC/100 WBC (Bld) [Ratio] 0 % 0.0 per 100 WBC [facility] Platelet mean volume (Bld) [Entitic vol] 10.1 fL 8.1 - 13.5 fL [facility] Platelets (Bld) [#/Vol] 144 10*3/uL [facility] RBC (Bld) [#/Vol] 5.59 10*6/uL 4.21 - 5.7 7 m/uL [facility] Segmented neutrophils/100 WBC (Bld) 4.02 % [facility] WBC other (Bld) [#/Vol] 6.[address] [facility] CBC with Diffon 02-13-2025 Abs. Basophil 0.07 k/uL Normal 0.0-0.2 [facility] Comment on above: Performed By: #### C DP, CP, TROPI, BNP #### [facility] [address] [place] [address] Instructional Manager: Naima Faith MD Abs.Imm.Granulocyte 0.07 k/uL Normal 0.00-0.30 [facility] Comment on above: Performed By: #### C DP, CP, TROPI, BNP #### [address] [place] [address] Instructional Manager: Naima Faith MD Abs.Neutrophil (Seg) 4.02 k/uL Normal 1.50-8.10 [facility] Comment on above: Performed By: #### C DP, CP, TROPI, BNP #### [address] [place] [address] Instructional Manager: Naima Faith MD Basophils/100 WBC (Bld) 1 % Normal 0-2 [facility] Comment on above: Performed By: #### C DP, CP, TROPI, BNP #### [address] [place], [place] [address] Instructional Manager: Naima Faith MD Eosinophils (Bld) [#/Vol] 0.13 10*3/uL Normal 0.00-0.44 [facility] Comment on above: Performed By: #### C DP, CP, TROPI, BNP #### [address] [place] [address] Instructional Manager: Naima Faith MD Eosinophils/100 WBC (Bld) 2 % Normal 1-4 [facility] Comment on above: Performed By: #### C DP, CP, TROPI, BNP #### [address] [place] [address] Instructional Manager: Naima Faith MD Immature granulocytes/100 WBC (Bld) 1 % High 0 [facility] Comment on above: Performed By: #### C DP, CP, TROPI, BNP #### [address] [place], [place] [id number] Instructional Manager: Naima Faith MD Lymphocytes (Bld) [#/Vol] 1.85 10*3/uL Normal 1.10-3.70 [facility] Comment on above: Performed By: #### C DP, CP, TROPI, BNP #### [facility] [address] [place] [address] Instructional Manager: Naima Faith MD Lymphocytes/100 WBC (Bld) 28 % Normal 24-43 [facility] Comment on above: Performed By: #### C DP, CP, TROPI, BNP #### [facility] [address] [place] [address] Instructional Manager: Naima Faith MD Monocytes (Bld) [#/Vol] 0.46 10*3/uL Normal 0.10-1.20 [facility] Comment on above: Performed By: #### C DP, CP, TROPI, BNP #### [address] [place] [address] Instructional Manager: Naima Faith MD Monocytes/100 WBC (Bld) 7 % Normal 3-12 [facility] Comment on above: Performed By: #### C DP, CP, TROPI, BNP #### [address] [place] [address] Instructional Manager: Naima Faith MD Morphology Gustavo (Bld) [Interp] HYPOCHROMIA Normal [facility] Comment on above: Result Comment: PRES ENT Performed By: #### C DP, CP, TROPI, BNP #### [facility] [address] [place] [address] Instructional Manager: Naima Faith MD Neutrophil (Seg) 61 % Normal 36-65 [facility] Comment on above: Performed By: #### C DP, CP, TROPI, BNP #### [facility] [address] [place] [address] Instructional Manager: Naima Faith MD Erythrocyte distribution width (RBC) [Ratio] 18.1 % High 11.8-14.4 [facility] Comment on above: Performed By: #### C DP, CP, TROPI, BNP #### [address] [place] [id number] Instructional Manager: Naima Faith MD Hematocrit (Bld) [Volume fraction] 49.6 % Normal 40.7-50.3 [facility] Comment on above: Performed By: #### C DP, CP, TROPI, BNP #### [address] [place] [id number] Instructional Manager: Naima Faith MD Hemoglobin (Bld) [Mass/Vol] 14.0 g/dL Normal 13.0-17.0 [facility] Comment on above: Performed By: #### C DP, CP, TROPI, BNP #### [address] [place] [address] Instructional Manager: Naima Faith MD MCH (RBC) [Entitic mass] 25.0 pg Low 25.2-33.5 [facility] Comment on above: Performed By: #### C DP, CP, TROPI, BNP #### [address] [place] [id number] Instructional Manager: Naima Faith MD MCHC (RBC) [Mass/Vol] 28.2 g/dL Low 28.4-34.8 [facility] Comment on above: Performed By: #### C DP, CP, TROPI, BNP #### [address] [place] [id number] Instructional Manager: Naima Faith MD MCV (RBC) [Entitic vol] 88.7 fL Normal 82.6-102.9 [facility] Comment on above: Performed By: #### C DP, CP, TROPI, BNP #### [address] [place] [id number] Instructional Manager: Naima Faith MD NRBC Automated 0.0 per [address] [facility] Comment on above: Performed By: #### C DP, CP, TROPI, BNP #### [facility] [address] [place] [id number] Instructional Manager: Naima Faith MD Platelet mean volume (Bld) [Entitic vol] 10.1 fL Normal 8.1-13.5 [facility] Comment on above: Performed By: #### C DP, CP, TROPI, BNP #### [address] [place] [address] Instructional Manager: Naima Faith MD Platelets (Bld) [#/Vol] 144 10*3/uL Normal 138-453 [facility] Comment on above: Performed By: #### C DP, CP, TROPI, BNP #### [address] [place], [place] [address] Instructional Manager: Naima Faith MD RBC (Bld) [#/Vol] 5.59 10*6/uL Normal 4.21-5.77 [facility] Comment on above: Performed By: #### C DP, CP, TROPI, BNP #### [address] [place], [facility] Instructional Manager: Naima Faith MD WBC (Bld) [#/Vol] 6.6 10*3/uL Normal 3.5-11.3 [facility] Comment on above: Performed By: #### C DP, CP, TROPI, BNP #### [address] [place], [facility] Instructional Manager: Naima Faith MD CT CHEST PULMONARY EMBOLISM W CONTRASTon 02-13-2025 CT CHEST PULMONARY EMBOLISM W CONTRAST EXAMINATION: CTA OF THE CHEST 02/10/2025 5:37 pm TECHNIQUE: CTA of the chest was performed after the administration of intravenous contrast. Multiplanar reformatted images are provided for review. MIP images are provided for review. Automated exposure control, iterative reconstruction, and/or weight based adjustment of the mA/kV was utilized to reduce the radiation dose to as low as reasonably achievable. COMPARISON: None. HISTORY: ORDERING SYSTEM PROVIDED HISTORY: dyspnea, PE TECHNOLOGIST PROVIDED HISTORY: dyspnea, PE Decision Support Exception - unselect if not a suspected or confirmed emergency medical condition->Emergency Medical Condition (MA) FINDINGS: Pulmonary Arteries: Pulmonary arteries are adequately opacified for evaluation. No evidence of intraluminal filling defect to suggest pulmonary embolism. Main pulmonary artery is normal in caliber. Mediastinum: The heart size within normal limits. Coronary arterial calcifications. The thoracic aorta is normal caliber with mild atherosclerosis. The esophagus is unremarkable. No pathologically enlarged adenopathy. Lungs/pleura: Elevation of the right hemidiaphragm. Mild right basilar atelectasis versus scarring. No other focal consolidation, pleural effusion or pneumothorax. The central airways are patent. Upper Abdomen: High-density material within the gallbladder. Lobular liver contour. Small hiatal hernia. Soft Tissues/Bones: Age-indeterminate T6 compression deformity but likely chronic. No other acute bone or soft tissue abnormality. IMPRESSION: 1. No evidence of pulmonary embolism or acute pulmonary abnormality. 2. Age-indeterminate T6 compression deformity, but likely chronic. 3. Gallbladder stones versus sludge. 4. Lobular liver contour, raising suspicion for cirrhosis or chronic liver disease. Interpreted by: Gretchen Shaw MD Signed by: Gretchen Shaw MD 02/13/[address] [facility] MHPN RIS CONSOLIDATED PN RIS CONSOLIDATED [facility] CT CHEST PULMONARY EMBOLISM W CONTRASTOrdered By: Gretchen Shaw on 02-13-2025 [facility] Work Phone: EKG Rhythm Stripon [facility] Rad - CT Reporton 02-13-2025 Rad - CT Report [id number] Normal [facility] Arterial Blood Gaseson 02-12 Ethan Test YES Normal [facility] Comment on above: Performed By: #### C DP, CP, TROPI, BNP #### [facility] [address] [place], [place] [id number] Instructional Manager: Naima Faith MD Body Temp. 37.0 [facility] Comment on above: Performed By: #### C DP, CP, TROPI, BNP #### [facility] [address] [place], [facility] Instructional Manager: Naima Faith MD FIO2 34 [facility] Comment on above: Performed By: #### C DP, CP, TROPI, BNP #### [address] [place], [facility] Instructional Manager: Naima Faith MD HCO3 (Bld) [Moles/Vol] 34.1 mmol/L High 22-26 [facility] Comment on above: Performed By: #### C DP, CP, TROPI, BNP #### [address] [place], [facility] Instructional Manager: Naima Faith MD O2 Device/Flow/% HEATED HIGH FLOW [facility] Comment on above: Performed By: #### C DP, CP, TROPI, BNP #### [address] [place], [facility] Instructional Manager: Naima Faith MD Oxygen (Bld) [Partial pressure] 80.8 mm[Hg] Normal 80.0-100.0 [facility] Comment on above: Performed By: #### C DP, CP, TROPI, BNP #### [facility] [address] [place] [address] Dr. [place], [facility] Instructional Manager: Naima Faith MD Oxygen saturation in Blood 94.9 % Low 95-98 [facility] Comment on above: Performed By: #### C DP, CP, TROPI, BNP #### [address] [place], [facility] Instructional Manager: Naima Faith MD pCO2 65.4 mmHg Critically high 35-45 [facility] Comment on above: Performed By: #### C DP, CP, TROPI, BNP #### [address] [place] [address] Instructional Manager: Naima Faith MD pCO2 Adj'd for Temp 65.4 Critically high 35.0-45.0 [facility] Comment on above: Performed By: #### C DP, CP, TROPI, BNP #### [facility] [address] [place] [address] Dr[address] [place], [place] [id number] Instructional Manager: Naima Faith MD pH (Bld) 7.335 [pH] Low 7.35-7.45 [facility] Comment on above: Performed By: #### C DP, CP, TROPI, BNP #### [address] [place], [place] [id number] Instructional Manager: Naima Faith MD pH Adjst'd for Temp. 7.335 Low 7.350-7.450 [facility] Comment on above: Performed By: #### C DP, CP, TROPI, BNP #### [address] [place], [place] 1640383 Instructional Manager: Naima Faith MD pO2 Adjst'd for Temp 80.8 mmHg Normal 80.0-100.0 [facility] Comment on above: Performed By: #### C DP, CP, TROPI, BNP #### [facility] [address] [place] [address] Dr. [place], [place] [id number] Instructional Manager: Naima Faith MD Positive Base Excess 5.8 mmol/L High 0.0-2.0 [facility] Comment on above: Performed By: #### C DP, CP, TROPI, BNP #### [address] [place], [place] [id number] Instructional Manager: Naima Faith MD Site Drawn Right Brachial Artery Normal [facility] Comment on above: Performed By: #### C DP, CP, TROPI, BNP #### [facility] [address] [place] [address] [place] [address] Instructional Manager: Naima Faith MD Text for Respiratory Called to RN on 02/12/2025 at 07:24 Normal [facility] Comment on above: Performed By: #### C DP, CP, TROPI, BNP #### [facility] [address] [place] [address] [place] [address] Instructional Manager: Naima Faith MD Basic Metab w/rfx MGon 02-12 Anion gap [Moles/Vol] 8 mmol/L Low 9-16 [facility] Comment on above: Performed By: #### C DP, CP, TROPI, BNP #### [facility] [address] [place] [address] Dr[address] [place], [place] [id number] Instructional Manager: Naima Faith MD BUN/CRE Ratio 30 High 9-20 [facility] Comment on above: Performed By: #### C DP, CP, TROPI, BNP #### [address] [place], [place] [id number] Instructional Manager: Naima Faith MD Calcium [Mass/Vol] 9.0 mg/dL Normal 8.6-10.4 [facility] Comment on above: Performed By: #### C DP, CP, TROPI, BNP #### [facility] [address] [place] [address] Dr[address] [place], [place] [id number] Instructional Manager: Naima Faith MD Chloride [Moles/Vol] 96 mmol/L Low 98-107 [facility] Comment on above: Performed By: #### C DP, CP, TROPI, BNP #### [facility] [address] [place] [address] [place] [address] Instructional Manager: Naima Faith MD CO2 [Moles/Vol] 37 mmol/L High 20-31 [facility] Comment on above: Performed By: #### C DP, CP, TROPI, BNP #### [facility] [address] [place] [address] Instructional Manager: Naima Faith MD Creatinine [Mass/Vol] 0.5 mg/dL Low 0.70-1.20 [facility] Comment on above: Performed By: #### C DP, CP, TROPI, BNP #### [facility] [address] [place] [address] Instructional Manager: Naima Faith MD GFR/1.73 sq M.predicted among non-blacks MDRD (S/P/Bld) [Vol rate/Area] mL/min/{1.73_m2} Normal >60 [facility] Comment on above: Result Comment: These results [...] renal tubular secretion. Performed By: #### C DP, CP, TROPI, BNP #### [facility] [address] [place] [address] Instructional Manager: Naima Faith MD Glucose [Mass/Vol] 121 mg/dL High 74-99 [facility] Comment on above: Performed By: #### C DP, CP, TROPI, BNP #### [facility] [address] [place] [address] Instructional Manager: Naima Faith MD Potassium [Moles/Vol] 4.2 mmol/L Normal 3.7-5.3 [facility] Comment on above: Performed By: #### C DP, CP, TROPI, BNP #### [facility] [address] [place] [address] Instructional Manager: Naima Faith MD Sodium [Moles/Vol] 141 mmol/L Normal 136-145 [facility] Comment on above: Performed By: #### C DP, RYAN, TROPI, BNP #### [facility] [address] [place], [place] [id number] Instructional Manager: Naima Faith MD Urea nitrogen [Mass/Vol] 15 mg/dL Normal 8-23 [facility] Comment on above: Performed By: #### C CARLOS, RYAN, TROPI, BNP #### [facility] [address] [place] [address] Instructional Manager: Naima Faith MD Basic Metabolic Panel w/ Ref kwabena to MGon 02-12-2025 Anion gap [Moles/Vol] 8 mmol/L Low 9 - 16 mmol/L [facility] Calcium [Mass/Vol] 9 mg/dL 8.6 - 10. 4 mg/dL [facility] Chloride [Moles/Vol] 96 mmol/L Low 98 - 10 7 mmol/L [facility] CO2 [Moles/Vol] 37 mmol/L High 20 - 31 mmol/L [facility] Creatinine [Mass/Vol] 0.5 mg/dL Low 0.70 - 1.20 mg/dL [facility] Est, Glom Filt Rate - PINF [facility] Glucose [Mass/Vol] 121 mg/dL High 74 - 99 mg/dL [facility] Interpretation and review of laboratory results Abnormal [facility] Potassium [Moles/Vol] 4.2 mmol/L 3.7 - 5.3 mmol/L [facility] Sodium [Moles/Vol] 141 mmol/L 136 - 145 mmol/L [facility] Urea nitrogen [Mass/Vol] 15 mg/dL 8 - 23 mg/dL [facility] Urea nitrogen/Creatinine [Mass ratio] 30 mg/mg High 9 - [address] [facility] Blood Gas, Arterialon 2024 Arterial patency Wrist artery --pre arterial puncture YES [facility] Body site Right Brachial Artery [facility] Interpretation and review of laboratory results Abnormal [facility] Oxygen gas flow Oxygen delivery system HEATED HIGH FLOW [facility] Oxygen/Inspired gas Respiratory system --on ventilator 34 [facility] pCO2, Art, Temp Adj 65.4 Critically high 35.0 - 45.0 [facility] pCO2, Arterial 65.4 Critically high [facility] pH, Art, Temp Adj 7.335 Low 7.350 - 7.450 [facility] pH, Arterial 7.335 Low 7.35 - 7.45 [facility] pO2, Art, Temp Adj 80.8 [facility] pO2, Arterial 80.8 [facility] Positive Base Excess, Art 5.8 mmol/L High 0.0 - 2.0 mmol/L [facility] CBC auto differentialon 3 0 Basophils (Bld) [#/Vol] 0.06 10*3/uL [facility] Basophils/100 WBC (Bld) 1 % 0 - 2 % [facility] Eosinophils (Bld) [#/Vol] 0.13 10*3/uL [facility] Eosinophils/100 WBC (Bld) 2 % 1 - 4 % [facility] Erythrocyte distribution width (RBC) [Ratio] 18 % High 11.8 - 14.4 % [facility] Hematocrit (Bld) [Volume fraction] 45.9 % 40.7 - 50.3 % [facility] Hemoglobin (Bld) [Mass/Vol] 12.9 g/dL Low 13.0 - 17.0 g/dL [facility] Immature granulocytes (Bld) [#/Vol] 0.06 10*3/uL [facility] Immature granulocytes/100 WBC (Bld) 1 % High 0 [facility] Interpretation and review of laboratory results Abnormal [facility] Lymphocytes/100 WBC (Bld) 25 % 24 - 43 % [facility] Lymphocytes/100 WBC (Bld) 1.6 % [facility] MCH (RBC) [Entitic mass] 25 pg Low 25.2 - 33.5 pg [facility] MCHC (RBC) [Mass/Vol] 28.1 g/dL Low 28.4 - 34.8 g/dL [facility] MCV (RBC) [Entitic vol] 89.1 fL 82.6 - 102.9 fL [facility] Monocytes/100 WBC (Bld) 8 % 3 - 12 % [facility] Monocytes/100 WBC (Bld) 0.51 % [facility] Morphology Gustavo (Bld) [Interp] HYPOCHROMIA PRESENT [facility] Neutrophils/100 WBC (Bld) 63 % 36 - 65 % [facility] Nucleated RBC/100 WBC (Bld) [Ratio] 0 % 0.0 per 100 WBC [facility] Platelet mean volume (Bld) [Entitic vol] 10.6 fL 8.1 - 13.5 fL [facility] Platelets (Bld) [#/Vol] 161 10*3/uL [facility] RBC (Bld) [#/Vol] 5.15 10*6/uL 4.21 - 5.7 7 m/uL [facility] Segmented neutrophils/100 WBC (Bld) 4.04 % [facility] WBC other (Bld) [#/Vol] 6.[address] [facility] CBC with Diffon 02-12-2025 Abs. Basophil 0.06 k/uL Normal 0.00-0.20 [facility] Comment on above: Performed By: #### C RYAN GONZALEZ, TROPI, BNP #### [facility] [address] [place] [address] Dr. [place], [facility] Instructional Manager: Naima Faith MD Abs.Imm.Granulocyte 0.06 k/uL Normal 0.00-0.30 [facility] Comment on above: Performed By: #### C RYAN GONZALEZ, TROPI, BNP #### [facility] [address] [place] [address] [place] [address] Instructional Manager: Naima Faith MD Abs.Neutrophil (Seg) 4.04 k/uL Normal 1.50-8.10 [facility] Comment on above: Performed By: #### C DP, CP, TROPI, BNP #### [facility] [address] [address] Instructional Manager: Naima Faith MD Basophils/100 WBC (Bld) 1 % Normal 0-2 [facility] Comment on above: Performed By: #### C DP, CP, TROPI, BNP #### [facility] [address] [address] Instructional Manager: Naima Faith MD Eosinophils (Bld) [#/Vol] 0.13 10*3/uL Normal 0.00-0.44 [facility] Comment on above: Performed By: #### C DP, CP, TROPI, BNP #### [address] [place] [address] Instructional Manager: Naima Faith MD Eosinophils/100 WBC (Bld) 2 % Normal 1-4 [facility] Comment on above: Performed By: #### C DP, CP, TROPI, BNP #### [address] [place] [address] Instructional Manager: Naima Faith MD Immature granulocytes/100 WBC (Bld) 1 % High 0 [facility] Comment on above: Performed By: #### C DP, CP, TROPI, BNP #### [address] [place] [address] Instructional Manager: Naima Faith MD Lymphocytes (Bld) [#/Vol] 1.60 10*3/uL Normal 1.10-3.70 [facility] Comment on above: Performed By: #### C DP, CP, TROPI, BNP #### [facility] [address] [address] Instructional Manager: Naima Faith MD Lymphocytes/100 WBC (Bld) 25 % Normal 24-43 [facility] Comment on above: Performed By: #### C DP, CP, TROPI, BNP #### [facility] [address] [place] [address] Instructional Manager: Naima Faith MD Monocytes (Bld) [#/Vol] 0.51 10*3/uL Normal 0.10-1.20 [facility] Comment on above: Performed By: #### C DP, CP, TROPI, BNP #### [address] [place], [place] [address] Instructional Manager: Naima Faith MD Monocytes/100 WBC (Bld) 8 % Normal 3-12 [facility] Comment on above: Performed By: #### C DP, CP, TROPI, BNP #### [address] [place] [address] Instructional Manager: Naima Faith MD Morphology Gustavo (Bld) [Interp] HYPOCHROMIA Normal [facility] Comment on above: Result Comment: PRES ENT Performed By: #### C DP, CP, TROPI, BNP #### [address] [place], [facility] Instructional Manager: Naima Faith MD Neutrophil (Seg) 63 % Normal 36-65 [facility] Comment on above: Performed By: #### C DP, CP, TROPI, BNP #### [address] [place], [place] [address] Instructional Manager: Naima Faith MD Erythrocyte distribution width (RBC) [Ratio] 18.0 % High 11.8-14.4 [facility] Comment on above: Performed By: #### C DP, CP, TROPI, BNP #### [address] [place], [facility] Instructional Manager: Naima Faith MD Hematocrit (Bld) [Volume fraction] 45.9 % Normal 40.7-50.3 [facility] Comment on above: Performed By: #### C DP, CP, TROPI, BNP #### [address] [place], [facility] Instructional Manager: Naima Faith MD Hemoglobin (Bld) [Mass/Vol] 12.9 g/dL Low 13.0-17.0 [facility] Comment on above: Performed By: #### C DP, CP, TROPI, BNP #### [address] [place], [place] [address] Instructional Manager: Naima Faith MD MCH (RBC) [Entitic mass] 25.0 pg Low 25.2-33.5 [facility] Comment on above: Performed By: #### C DP, CP, TROPI, BNP #### [address] [place] [id number] Instructional Manager: Naima Faith MD MCHC (RBC) [Mass/Vol] 28.1 g/dL Low 28.4-34.8 [facility] Comment on above: Performed By: #### C DP, CP, TROPI, BNP #### [address] [place], [facility] Instructional Manager: Naima Faith MD MCV (RBC) [Entitic vol] 89.1 fL Normal 82.6-102.9 [facility] Comment on above: Performed By: #### C DP, CP, TROPI, BNP #### [address] [place], [facility] Instructional Manager: Naima Faith MD NRBC Automated 0.0 per [address] [facility] Comment on above: Performed By: #### C DP, CP, TROPI, BNP #### [address] [place] [id number] Instructional Manager: Naima Faith MD Platelet mean volume (Bld) [Entitic vol] 10.6 fL Normal 8.1-13.5 [facility] Comment on above: Performed By: #### C DP, CP, TROPI, BNP #### [facility] [address] [place], [place] [id number] Instructional Manager: Naima Faith MD Platelets (Bld) [#/Vol] 161 10*3/uL Normal 138-453 [facility] Comment on above: Performed By: #### C DP, CP, TROPI, BNP #### [facility] [address] [place], [place] [id number] Instructional Manager: Naima Faith MD RBC (Bld) [#/Vol] 5.15 10*6/uL Normal 4.21-5.77 [facility] Comment on above: Performed By: #### C DP, CP, TROPI, BNP #### [facility] [address] [place], [place] [id number] Instructional Manager: Naima Faith MD WBC (Bld) [#/Vol] 6.4 10*3/uL Normal 3.5-11.3 [facility] Comment on above: Performed By: #### C DP, CP, TROPI, BNP #### [facility] [address] [place], [place] [id number] Instructional Manager: Naima Faith MD EKG 12 [place] 02-12-2025 Atrial Rate 70 BPM [facility] P Ripley 44 degrees [facility] P-R Interval 240 ms [facility] Q-T Interval 420 ms [facility] QRS Duration 152 ms [facility] QTc Calculation (Bazett) 453 ms [facility] R Ripley -87 degrees [facility] T Ripley 3 degrees [facility] Ventricular Rate 70 [facility] RADIOLOGY [facility] EKG Rhythm Stripon [facility] Arterial Blood Gaseson 02-11 Ethan Test NOT APPLICABLE Normal [facility] Comment on above: Performed By: #### C DP, CP, TROPI, BNP #### [facility] [address] [place], [place] [id number] Instructional Manager: Naima Faith MD Body Temp. 37.0 [facility] Comment on above: Performed By: #### C DP, CP, TROPI, BNP #### [facility] [address] [place], [place] [id number] Instructional Manager: Naima Faith MD FIO2 23 [facility] Comment on above: Performed By: #### C DP, CP, TROPI, BNP #### [address] [place], [place] [id number] Instructional Manager: Naima Faith MD HCO3 (Bld) [Moles/Vol] 34.5 mmol/L High 22-26 [facility] Comment on above: Performed By: #### C DP, CP, TROPI, BNP #### [facility] [address] [place] [address] Dr. [place], [place] [id number] Instructional Manager: Naima Faith MD O2 Device/Flow/% Cannula [facility] Comment on above: Performed By: #### C DP, CP, TROPI, BNP #### [address] [place], [place] 9592483 Instructional Manager: Naima Faith MD Oxygen (Bld) [Partial pressure] 73.1 mm[Hg] Low 80.0-100.0 [facility] Comment on above: Performed By: #### C DP, CP, TROPI, BNP #### [facility] [address] [place] [address] Dr. [place], [place] [id number] Instructional Manager: Naima Faith MD Oxygen saturation in Blood 93.4 % Low 95-98 [facility] Comment on above: Performed By: #### C DP, CP, TROPI, BNP #### [address] [place] [id number] Instructional Manager: Naima Faith MD pCO2 64.9 mmHg Critically high 35-45 [facility] Comment on above: Performed By: #### C DP, CP, TROPI, BNP #### [facility] [address] [place], [place] [id number] Instructional Manager: Naima Faith MD pCO2 Adj'd for Temp 64.9 Critically high 35.0-45.0 [facility] Comment on above: Performed By: #### C DP, CP, TROPI, BNP #### [address] [place], [place] 2679283 Instructional Manager: Naima Faith MD pH (Bld) 7.343 [pH] Low 7.35-7.45 [facility] Comment on above: Performed By: #### C DP, CP, TROPI, BNP #### [address] [place], [place] 6382483 Instructional Manager: Naima Faith MD pH Adjst'd for Temp. 7.343 Low 7.350-7.450 [facility] Comment on above: Performed By: #### C DP, CP, TROPI, BNP #### [address] [place], [place] 5342683 Instructional Manager: Naima Faith MD pO2 Adjst'd for Temp 73.1 mmHg Low 80.0-100.0 [facility] Comment on above: Performed By: #### C DP, CP, TROPI, BNP #### [address] [place], [place] [id number] Instructional Manager: Naima Faith MD Positive Base Excess 6.3 mmol/L High 0.0-2.0 [facility] Comment on above: Performed By: #### C DP, CP, TROPI, BNP #### [address] [place], [place] [id number] Instructional Manager: Naima Faith MD Set Rate 1 [facility] Comment on above: Performed By: #### C DP, CP, TROPI, BNP #### [facility] [address] [place] [address] Instructional Manager: Naima Faith MD Site Drawn Right Radial Artery [facility] Comment on above: Performed By: #### C DP, CP, TROPI, BNP #### [facility] [address] [place] [address] Instructional Manager: Naima Faith MD Text for Respiratory Called to RN on 02/11/2025 at 12:02 [facility] Comment on above: Performed By: #### C DP, CP, TROPI, BNP #### [facility] [address] [place] [address] [place] [address] Instructional Manager: Naima Faith MD Basic Metab w/rfx MGon 02-11 Anion gap [Moles/Vol] 5 mmol/L Low 9-16 [facility] Comment on above: Performed By: #### C DP, CP, TROPI, BNP #### [address] [place] [address] Instructional Manager: Naima Faith MD BUN/CRE Ratio 35 High 9-20 [facility] Comment on above: Performed By: #### C DP, CP, TROPI, BNP #### [facility] [address] [place] [address] Instructional Manager: Naima Faith MD Calcium [Mass/Vol] 8.7 mg/dL Normal 8.6-10.4 [facility] Comment on above: Performed By: #### C DP, CP, TROPI, BNP #### [facility] [address] [place] [address] [place] [address] Instructional Manager: Naima Faith MD Chloride [Moles/Vol] 96 mmol/L Low 98-107 [facility] Comment on above: Performed By: #### C DP, CP, TROPI, BNP #### [facility] [address] [place], [place] 0145983 Instructional Manager: Naima Faith MD CO2 [Moles/Vol] 39 mmol/L High 20-31 [facility] Comment on above: Performed By: #### C DP, CP, TROPI, BNP #### [facility] [address] [place], [place] [id number] Instructional Manager: Naima Faith MD Creatinine [Mass/Vol] 0.4 mg/dL Low 0.70-1.20 [facility] Comment on above: Performed By: #### C DP, CP, TROPI, BNP #### [facility] [address] [place], [place] [id number] Instructional Manager: Naima Faith MD GFR/1.73 sq M.predicted among non-blacks MDRD (S/P/Bld) [Vol rate/Area] mL/min/{1.73_m2} Normal >60 [facility] Comment on above: Result Comment: These results [...] renal tubular secretion. Performed By: #### C DP, CP, TROPI, BNP #### [facility] [address] [place], [place] [id number] Instructional Manager: Naima Faith MD Glucose [Mass/Vol] 107 mg/dL High 74-99 [facility] Comment on above: Performed By: #### C DP, CP, TROPI, BNP #### [facility] [address] [place], [place] 1373583 Instructional Manager: Naima Faith MD Potassium [Moles/Vol] 3.9 mmol/L Normal 3.7-5.3 [facility] Comment on above: Performed By: #### C DP, CP, TROPI, BNP #### [facility] [address] [place] [address] Instructional Manager: Naima Faith MD Sodium [Moles/Vol] 140 mmol/L Normal 136-145 [facility] Comment on above: Performed By: #### C DP, CP, TROPI, BNP #### [facility] [address] [place] [address] Instructional Manager: Naima Faith MD Urea nitrogen [Mass/Vol] 14 mg/dL Normal 8-23 [facility] Comment on above: Performed By: #### C CARLOS CP, TROPI, BNP #### [facility] [address] [place] [address] Instructional Manager: Naima Faith MD Basic Metabolic Panel w/ Ref kwabena to MGon 02-11-2025 Anion gap [Moles/Vol] 5 mmol/L Low 9 - 16 mmol/L [facility] Calcium [Mass/Vol] 8.7 mg/dL 8.6 - 10. 4 mg/dL [facility] Chloride [Moles/Vol] 96 mmol/L Low 98 - 10 7 mmol/L [facility] CO2 [Moles/Vol] 39 mmol/L High 20 - 31 mmol/L [facility] Creatinine [Mass/Vol] 0.4 mg/dL Low 0.70 - 1.20 mg/dL [facility] Est, Glom Filt Rate - PINF [facility] Glucose [Mass/Vol] 107 mg/dL High 74 - 99 mg/dL [facility] Interpretation and review of laboratory results Abnormal [facility] Potassium [Moles/Vol] 3.9 mmol/L 3.7 - 5.3 mmol/L [facility] Sodium [Moles/Vol] 140 mmol/L 136 - 145 mmol/L [facility] Urea nitrogen [Mass/Vol] 14 mg/dL 8 - 23 mg/dL [facility] Urea nitrogen/Creatinine [Mass ratio] 35 mg/mg High 9 - [address] [facility] Blood Gas, Arterialon 2024 Arterial patency Wrist artery --pre arterial puncture NOT APPLICABLE [facility] Body site Right Radial Artery [facility] HCO3 (Bld) [Moles/Vol] 34.5 mmol/L High 22 - 26 mmol/L [facility] Interpretation and review of laboratory results Abnormal [facility] Oxygen gas flow Oxygen delivery system Cannula [facility] Oxygen gas flow setting Oxymiser 1 [facility] Oxygen saturation in Blood 93.4 % Low 95 - 98 % [facility] Oxygen/Inspired gas Respiratory system --on ventilator 23 [facility] pCO2, Art, Temp Adj 64.9 Critically high 35.0 - 45.0 [facility] pCO2, Arterial 64.9 Critically high [facility] pH, Art, Temp Adj 7.343 Low 7.350 - 7.450 [facility] pH, Arterial 7.343 Low 7.35 - 7.45 [facility] pO2, Art, Temp Adj 73.1 Low [facility] pO2, Arterial 73.1 Low [facility] Positive Base Excess, Art 6.3 mmol/L High 0.0 - 2.0 mmol/L [facility] Text for Respiratory Called to RN on 02/11/2025 at 12:[address] [facility] Blood Gas, Venouson 02-12-20 25 Arterial patency Wrist artery --pre arterial puncture NOT APPLICABLE [facility] HCO3 (Bld) [Moles/Vol] 41.4 mmol/L High 24.0 - 30.0 mmol/L [facility] Interpretation and review of laboratory results Abnormal [facility] Oxygen gas flow Oxygen delivery system Cannula [facility] Oxygen gas flow setting Oxymiser 1 [facility] Oxygen saturation in Blood 59.9 % Low 60.0 - 85.0 % [facility] Oxygen/Inspired gas Respiratory system --on ventilator 23 [facility] pCO2, Galo 82 Critically high [facility] pCO2, Galo, Temp Adj 82 High [facility] pH, Galo 7.321 7.32 - 7.42 [facility] pH, Galo, Temp Adj 7.321 7.320 - 7.420 [facility] PO2, Galo 35.3 [facility] pO2, Galo, Temp Adj 35.3 [facility] [place] Positive Base Excess, Galo 11.3 mmol/L High 0.0 - 2.0 mmol/L [facility] Text for Respiratory Called to RN on 02/11/2025 at 09:[address] [facility] Arterial patency Wrist artery --pre arterial puncture NOT APPLICABLE [facility] HCO3 (Bld) [Moles/Vol] 39.8 mmol/L High 24.0 - 30.0 mmol/L [facility] Interpretation and review of laboratory results Abnormal [facility] Oxygen gas flow Oxygen delivery system BIPAP [facility] Oxygen saturation in Blood 96.2 % High 60.0 - 85.0 % [facility] Oxygen/Inspired gas Respiratory system --on ventilator 28 [facility] pCO2, Galo 76.1 Critically high Bon [facility] pCO2, Galo, Temp Adj 76.1 High Bon [facility] pH, Galo 7.336 7.32 - 7.42 [facility] pH, Galo, Temp Adj 7.336 7.320 - 7.420 [facility] PO2, Galo 92.2 High [facility] pO2, Galo, Temp Adj 92.2 High [facility] [place] Positive Base Excess, Galo 10.4 mmol/L High 0.0 - 2.0 mmol/L [facility] Text for Respiratory Called to RN on 02/11/2025 at 05:[address] [facility] CBC auto differentialon 01-15 Basophils (Bld) [#/Vol] 0 10*3/uL [facility] Basophils/100 WBC (Bld) 0 % 0 - 2 % [facility] Eosinophils (Bld) [#/Vol] 0.06 10*3/uL [facility] Eosinophils/100 WBC (Bld) 1 % 1 - 4 % [facility] Erythrocyte distribution width (RBC) [Ratio] 17.6 % High 11.8 - 14.4 % [facility] Hematocrit (Bld) [Volume fraction] 45.7 % 40.7 - 50.3 % [facility] Hemoglobin (Bld) [Mass/Vol] 12.8 g/dL Low 13.0 - 17.0 g/dL [facility] Immature granulocytes (Bld) [#/Vol] 0.06 10*3/uL [facility] Immature granulocytes/100 WBC (Bld) 1 % High 0 [facility] Interpretation and review of laboratory results Abnormal [facility] Lymphocytes/100 WBC (Bld) 24 % 24 - 43 % [facility] Lymphocytes/100 WBC (Bld) 1.54 % [facility] MCH (RBC) [Entitic mass] 24.8 pg Low 25.2 - 33.5 pg [facility] MCHC (RBC) [Mass/Vol] 28 g/dL Low 28.4 - 34.8 g/dL [facility] MCV (RBC) [Entitic vol] 88.4 fL 82.6 - 102.9 fL [facility] Monocytes/100 WBC (Bld) 8 % 3 - 12 % [facility] Monocytes/100 WBC (Bld) 0.51 % [facility] Morphology Gustavo (Bld) [Interp] HYPOCHROMIA PRESENT [facility] Neutrophils/100 WBC (Bld) 66 % High 36 - 65 % [facility] Nucleated RBC/100 WBC (Bld) [Ratio] 0 % 0.0 per 100 WBC [facility] Platelet mean volume (Bld) [Entitic vol] 10.1 fL 8.1 - 13.5 fL [facility] Platelets (Bld) [#/Vol] 166 10*3/uL [facility] RBC (Bld) [#/Vol] 5.17 10*6/uL 4.21 - 5.7 7 m/uL [facility] Segmented neutrophils/100 WBC (Bld) 4.23 % [facility] WBC other (Bld) [#/Vol] 6.[address] [facility] CBC with Diffon 02-11-2025 Abs. Basophil 0.00 k/uL Normal 0.0-0.2 [facility] Comment on above: Performed By: #### C DP, CP, TROPI, BNP #### [facility] [address] [place] [address] Instructional Manager: Naima Faith MD Abs.Imm.Granulocyte 0.06 k/uL Normal 0.00-0.30 [facility] Comment on above: Performed By: #### C DP, CP, TROPI, BNP #### [address] [place] [address] Instructional Manager: Naima Faith MD Abs.Neutrophil (Seg) 4.23 k/uL Normal 1.50-8.10 [facility] Comment on above: Performed By: #### C DP, CP, TROPI, BNP #### [address] [place], [place] [address] Instructional Manager: Naima Faith MD Basophils/100 WBC (Bld) 0 % Normal 0-2 [facility] Comment on above: Performed By: #### C DP, CP, TROPI, BNP #### [address] [place], [place] [address] Instructional Manager: Naima Faith MD Eosinophils (Bld) [#/Vol] 0.06 10*3/uL Normal 0.00-0.44 [facility] Comment on above: Performed By: #### C DP, CP, TROPI, BNP #### [facility] [address] [place], [facility] Instructional Manager: Naima Faith MD Eosinophils/100 WBC (Bld) 1 % Normal 1-4 [facility] Comment on above: Performed By: #### C DP, CP, TROPI, BNP #### [facility] [address] [place], [place] [address] Instructional Manager: Naima Faith MD Immature granulocytes/100 WBC (Bld) 1 % High 0 [facility] Comment on above: Performed By: #### C DP, CP, TROPI, BNP #### [facility] [address] [place], [place] [address] Instructional Manager: Naima Faith MD Lymphocytes (Bld) [#/Vol] 1.54 10*3/uL Normal 1.10-3.70 [facility] Comment on above: Performed By: #### C DP, CP, TROPI, BNP #### [address] [place] [address] Instructional Manager: Naima Faith MD Lymphocytes/100 WBC (Bld) 24 % Normal 24-43 [facility] Comment on above: Performed By: #### C DP, CP, TROPI, BNP #### [address] [place], [place] [address] Instructional Manager: Naima Faith MD Monocytes (Bld) [#/Vol] 0.51 10*3/uL Normal 0.10-1.20 [facility] Comment on above: Performed By: #### C DP, CP, TROPI, BNP #### [address] [place], [place] [address] Instructional Manager: Naima Faith MD Monocytes/100 WBC (Bld) 8 % Normal 3-12 [facility] Comment on above: Performed By: #### C DP, CP, TROPI, BNP #### [facility] [address] [place], [place] [address] Instructional Manager: Naima Faith MD Morphology Gustavo (Bld) [Interp] HYPOCHROMIA Normal [facility] Comment on above: Result Comment: PRES ENT Performed By: #### C DP, CP, TROPI, BNP #### [facility] [address] [place] [address] Instructional Manager: Naima Faith MD Neutrophil (Seg) 66 % High 36-65 [facility] Comment on above: Performed By: #### C DP, CP, TROPI, BNP #### [facility] [address] [place], [facility] Instructional Manager: Naima Faith MD Erythrocyte distribution width (RBC) [Ratio] 17.6 % High 11.8-14.4 [facility] Comment on above: Performed By: #### C DP, CP, TROPI, BNP #### [address] [place], [place] [id number] Instructional Manager: Naima Faith MD Hematocrit (Bld) [Volume fraction] 45.7 % Normal 40.7-50.3 [facility] Comment on above: Performed By: #### C DP, CP, TROPI, BNP #### [address] [place], [place] [id number] Instructional Manager: Naima Faith MD Hemoglobin (Bld) [Mass/Vol] 12.8 g/dL Low 13.0-17.0 [facility] Comment on above: Performed By: #### C DP, CP, TROPI, BNP #### [address] [place], [facility] Instructional Manager: Naima Faith MD MCH (RBC) [Entitic mass] 24.8 pg Low 25.2-33.5 [facility] Comment on above: Performed By: #### C DP, CP, TROPI, BNP #### [address] [place], [place] [id number] Instructional Manager: Naima Faith MD MCHC (RBC) [Mass/Vol] 28.0 g/dL Low 28.4-34.8 [facility] Comment on above: Performed By: #### C DP, CP, TROPI, BNP #### [address] [place], [facility] Instructional Manager: Naiam Faith MD MCV (RBC) [Entitic vol] 88.4 fL Normal 82.6-102.9 [facility] Comment on above: Performed By: #### C DP, CP, TROPI, BNP #### [address] [place], [place] [address] Instructional Manager: Naima Faith MD NRBC Automated 0.0 per [address] [facility] Comment on above: Performed By: #### C DP, CP, TROPI, BNP #### [address] [place], [facility] Instructional Manager: Naima Faith MD Platelet mean volume (Bld) [Entitic vol] 10.1 fL Normal 8.1-13.5 [facility] Comment on above: Performed By: #### C DP, CP, TROPI, BNP #### [address] [place], [place] [address] Instructional Manager: Naima Faith MD Platelets (Bld) [#/Vol] 166 10*3/uL Normal 138-453 [facility] Comment on above: Performed By: #### C DP, CP, TROPI, BNP #### [address] [place], [place] [address] Instructional Manager: Naima Faith MD RBC (Bld) [#/Vol] 5.17 10*6/uL Normal 4.21-5.77 [facility] Comment on above: Performed By: #### C DP, CP, TROPI, BNP #### [address] [place], [place] [id number] Instructional Manager: Naima Faith MD WBC (Bld) [#/Vol] 6.4 10*3/uL Normal 3.5-11.3 [facility] Comment on above: Performed By: #### C DP, CP, TROPI, BNP #### [facility] [address] [place] [address] Instructional Manager: Naima Faith MD EKG 12 [place] 02-11-2025 Atrial Rate 78 BPM [facility] P Ripley 27 degrees [facility] P-R Interval 228 ms [facility] Q-T Interval 418 ms [facility] QRS Duration 146 ms [facility] QTc Calculation (Bazett) 476 ms [facility] R [place] 269 degrees [facility] T [place]iple[place] -16 degrees [facility] Ventricular Rate 78 BPM [facility] MHPN [facility] RADIOLOGY [facility] EKG Rhythm Stripon 5 [facility] Outside Recordson 02-11-2025 Outside Records [id number] [facility] Report on 02-11-2025 Rad - Other Radiology Report [id number] [facility] 5 Adenovirus Not detected Normal [facility] Comment on above: Performed By: #### C DP, CP, TROPI, BNP #### [facility] [address] [address] [place], [place] [id number] Instructional Manager: MD Percy Tee.[email or web address] Not detected Normal [facility] Comment on above: Performed By: #### C DP, CP, TROPI, BNP #### [facility] [address] [place] [address] Instructional Manager: Naima Sturtz, MD Bordetella pertussis Not detected Normal [facility] Comment on above: Performed By: #### C DP, CP, TROPI, BNP #### [address] [place] [address] Instructional Manager: Naima Faith MD Chlamyd.pneumoniae Not detected [facility] Comment on above: Performed By: #### C DP, CP, TROPI, BNP #### [address] [place] [address] Instructional Manager: Naima Faith MD Coronavirus 229E Not detected [facility] Comment on above: Performed By: #### C DP, CP, TROPI, BNP #### [address] [place] [address] Instructional Manager: Naima Faith MD Coronavirus HKU1 Not detected [facility] Comment on above: Performed By: #### C DP, CP, TROPI, BNP #### [address] [place] [address] Instructional Manager: Naima Faith MD Coronavirus NL63 Not detected [facility] Comment on above: Performed By: #### C DP, CP, TROPI, BNP #### [address] [place] [address] Instructional Manager: Naima Faith MD Coronavirus OC43 Not detected [facility] Comment on above: Performed By: #### C DP, CP, TROPI, BNP #### [address] [place] [address] Instructional Manager: Naima Faith MD Human Metapneumo Not detected [facility] Comment on above: Performed By: #### C DP, CP, TROPI, BNP #### [address] [place] [address] Instructional Manager: Naima Faith MD Influenza A Not detected Normal [facility] Comment on above: Performed By: #### C DP, CP, TROPI, BNP #### [address] [place] [address] Instructional Manager: Naima Faith MD Influenza B Not detected Normal [facility] Comment on above: Performed By: #### C DP, CP, TROPI, BNP #### [address] [place] [address] Instructional Manager: Naima Faith MD Mycoplas.pneumoniae Not detected [facility] Comment on above: Result Comment: Perf ormed by multiplexed nucleic acid assay. Performed By: #### C DP, CP, TROPI, BNP #### [address] [place], [place] 9[address]83 Instructional Manager: Naima Faith MD Parainfluenza 1 Not detected [facility] Comment on above: Performed By: #### C DP, CP, TROPI, BNP #### [address] [place] [address] Instructional Manager: Naima Faith MD Parainfluenza 2 Not detected [facility] Comment on above: Performed By: #### C DP, CP, TROPI, BNP #### [address] [place] [address] Instructional Manager: Naima Faith MD Parainfluenza 3 Not detected [facility] Comment on above: Performed By: #### C DP, CP, TROPI, BNP #### [address] [place] [address] Instructional Manager: Naima Faith MD Parainfluenza 4 Not detected [facility] Comment on above: Performed By: #### C DP, CP, TROPI, BNP #### [facility] [address] [place] [address] [place] [address] Instructional Manager: Naima Faith MD Resp Syncytial Virus Not detected Normal [facility] Comment on above: Performed By: #### C DP, CP, TROPI, BNP #### [facility] [address] [place] [address] [place] [address] Instructional Manager: Naima Faith MD Rhino/Enterovirus Not detected Normal [facility] Comment on above: Performed By: #### C DP, CP, TROPI, BNP #### [facility] [address] [place] [address] [place] [address] Instructional Manager: Naima Faith MD SARS-CoV-2 (COVID-19) RNA ZACHARIAH+probe Ql (Unsp spec) Not detected Normal [facility] Comment on above: Performed By: #### C DP, CP, TROPI, BNP #### [address] [place] [address] Instructional Manager: Naima Faith MD Respiratory Panel, Molecular , with COVID-19 (Restricted: peds pts or suitable admitted adults)on 02-11-2025 Adenovirus DNA ZACHARIAH+non-probe Ql (Nph) Not detected Not Detected [facility] B. parapertussis [id number] DNA ZACHARIAH+non-probe Ql (Nph) Not detected Not Detected [facility] B. pertussis DNA ZACHARIAH+probe Ql (Unsp spec) Not detected Not Detected [facility] C. pneumoniae DNA ZACHARIAH+non-probe Ql (Nph) Not detected Not Detected [facility] FLUAV RNA ZACHARIAH+non-probe Ql (Nph) Not detected Not Detected [facility] FLUBV RNA ZACHARIAH+non-probe Ql (Nph) Not detected Not Detected [facility] HCoV 229E RNA ZACHARIAH+non-probe Ql (Nph) Not detected Not Detected [facility] HCoV HKU1 RNA ZACHARIAH+non-probe Ql (Nph) Not detected Not Detected [facility] HCoV NL63 RNA ZACHARIAH+non-probe Ql (Nph) Not detected Not Detected [facility] HCoV OC43 RNA ZACHARIAH+non-probe Ql (Nph) Not detected Not Detected [facility] hMPV RNA ZACHARIAH+non-probe Ql (Nph) Not detected Not Detected [facility] M. pneumoniae DNA ZACHARIAH+non-probe Ql (Nph) Not detected Not Detected [facility] Parainfluenza virus 1 RNA ZACHARIAH+non-probe Ql (Nph) Not detected Not Detected [facility] Parainfluenza virus 2 RNA ZACHARIAH+non-probe Ql (Nph) Not detected Not Detected [facility] Parainfluenza virus 3 RNA ZACHARIAH+non-probe Ql (Nph) Not detected Not Detected [facility] Parainfluenza virus 4 RNA ZACHARIAH+non-probe Ql (Nph) Not detected Not Detected [facility] Rhinovirus+Enteroviru s RNA ZACHARIAH+non-probe Ql (Nph) Not detected Not Detected [facility] RSV RNA ZACHARIAH+non-probe Ql (Nph) Not detected Not Detected [facility] SARS-CoV-2 (COVID-19) RNA ZACHARIAH+non-probe Ql (Nph) Not detected Not Detected [facility] Specimen Description .NASOPHARYNGEAL SWAB [facility] Venous Blood Gaseson 025 Ethan Test NOT APPLICABLE [facility] Comment on above: Performed By: #### C DP, CP, TROPI, BNP #### [facility] [address] [place], [facility] Instructional Manager: Naima Faith MD Body Temp. 37.0 [facility] Comment on above: Performed By: #### C DP, CP, TROPI, BNP #### [facility] [address] [place] [address] Instructional Manager: Naima Faith MD [facility] 23 [facility] Comment on above: Performed By: #### C DP, CP, TROPI, BNP #### [facility] [address] [place] [address] [place] [place], [place] [id number] Instructional Manager: Naima Faith MD HCO3 (Bld) [Moles/Vol] 41.4 mmol/L High 24.0-30.0 [facility] Comment on above: Performed By: #### C DP, CP, TROPI, BNP #### [address] [place], [place] [id number] Instructional Manager: Naima Faith MD O2 Device/Flow/% Cannula Normal [facility] Comment on above: Performed By: #### C DP, CP, TROPI, BNP #### [address] [place], [place] 3870683 Instructional Manager: Naima Faith MD Oxygen saturation in Blood 59.9 % Low 60.0-85.0 [facility] Comment on above: Performed By: #### C DP, CP, TROPI, BNP #### [address] [place], [place] 3124783 Instructional Manager: Naima Faith MD pCO2 82.0 mm Hg Critically high 39-55 [facility] Comment on above: Performed By: #### C DP, CP, TROPI, BNP #### [address] [place], [place] 554[address]83 Instructional Manager: Naima Faith MD Pco2 Adj'd for Temp. 82.0 mmHg High 39.0-55.0 [facility] Comment on above: Performed By: #### C DP, CP, TROPI, BNP #### [address] [place], [place] 7816683 Instructional Manager: Naima Faith MD pH (Bld) 7.321 [pH] Normal 7.32-7.42 [facility] Comment on above: Performed By: #### C DP, CP, TROPI, BNP #### [address] [place] 8[address]83 Instructional Manager: Naima Faith MD pH Adjst'd for Temp. 7.321 Normal 7.320-7.420 [facility] Comment on above: Performed By: #### C DP, CP, TROPI, BNP #### [address] [place], [place] 0707883 Instructional Manager: Naima Faith MD pO2 35.3 mm Hg Normal 30.0-50.0 [facility] Comment on above: Performed By: #### C DP, CP, TROPI, BNP #### [address] [place], [place] 734[address]83 Instructional Manager: Naima Faith MD pO2 Adj'd for Temp. 35.3 mmHg Normal 30.0-50.0 [facility] Comment on above: Performed By: #### C DP, CP, TROPI, BNP #### [address] [place], [place] [id number] Instructional Manager: Naima Faith MD Positive Base Excess 11.3 mmol/L High 0.0-2.0 [facility] Comment on above: Performed By: #### C DP, CP, TROPI, BNP #### [address] [place], [place] 3613383 Instructional Manager: Naima Faith MD Set Rate 1 [facility] Comment on above: Performed By: #### C DP, CP, TROPI, BNP #### [address] [place], [place] 747[address]83 Instructional Manager: Naima Faith MD Text for Respiratory Called to RN on 02/11/2025 at 09:07 [facility] Comment on above: Performed By: #### C DP, CP, TROPI, BNP #### [address] [place], [place] 188[address]83 Instructional Manager: Naima Faith MD Ethan Test NOT APPLICABLE [facility] Comment on above: Performed By: #### C DP, CP, TROPI, BNP #### [facility] [address] [place], [place] [id number] Instructional Manager: Naima Faith MD Body Temp. 37.0 [facility] Comment on above: Performed By: #### C DP, CP, TROPI, BNP #### [facility] [address] [place], [facility] Instructional Manager: Naima Faith MD FIO2 28 [facility] Comment on above: Performed By: #### C DP, CP, TROPI, BNP #### [address] [place], [facility] Instructional Manager: Naima Faith MD HCO3 (Bld) [Moles/Vol] 39.8 mmol/L High 24.0-30.0 [facility] Comment on above: Performed By: #### C DP, CP, TROPI, BNP #### [address] [place], [facility] Instructional Manager: Naima Faith MD O2 Device/Flow/% BIPAP [facility] Comment on above: Performed By: #### C DP, CP, TROPI, BNP #### [address] [place], [facility] Instructional Manager: Naima Faith MD Oxygen saturation in Blood 96.2 % High 60.0-85.0 [facility] Comment on above: Performed By: #### C DP, CP, TROPI, BNP #### [address] [place], [facility] Instructional Manager: Naima Faith MD pCO2 76.1 mm Hg Critically high 39-55 [facility] Comment on above: Performed By: #### C DP, CP, TROPI, BNP #### [address] [place], [facility] Instructional Manager: Naima Faith MD Pco2 Adj'd for Temp. 76.1 mmHg High 39.0-55.0 [facility] Comment on above: Performed By: #### C DP, CP, TROPI, BNP #### [facility] [address] [place] [address] [place] [place], [place] [phone] Instructional Manager: Naima Faith MD pH (Bld) 7.336 [pH] Normal 7.32-7.42 [facility] Comment on above: Performed By: #### C DP, CP, TROPI, BNP #### [address] [place], [place] 24[address]83 Instructional Manager: Naima Faith MD pH Adjst'd for Temp. 7.336 Normal 7.320-7.420 [facility] Comment on above: Performed By: #### C DP, CP, TROPI, BNP #### [address] [place], [place] 8375383 Instructional Manager: Naima Faith MD pO2 92.2 mm Hg High 30.0-50.0 [facility] Comment on above: Performed By: #### C DP, CP, TROPI, BNP #### [address] [place], [place] 350[address]83 Instructional Manager: Naima Faith MD pO2 Adj'd for Temp. 92.2 mmHg High 30.0-50.0 [facility] Comment on above: Performed By: #### C DP, CP, TROPI, BNP #### [address] [place], [place] 859[address]83 Instructional Manager: Naima Faith MD Positive Base Excess 10.4 mmol/L High 0.0-2.0 [facility] Comment on above: Performed By: #### C DP, CP, TROPI, BNP #### [address] [place] 8126183 Instructional Manager: Naima Faith MD Text for Respiratory Called to RN on 02/11/2025 at 05:22 [facility] Comment on above: Performed By: #### C DP, CP, TROPI, BNP #### [facility] [address] [place] [address] Instructional Manager: Naima Faith MD Arterial Blood Gaseson 02-10 Ethan Test YES [facility] Comment on above: Performed By: #### C DP, CP, TROPI, BNP #### [facility] [address] [place] [address] Instructional Manager: Naima Faith MD Body Temp. 37.0 [facility] Comment on above: Performed By: #### C DP, CP, TROPI, BNP #### [facility] [address] [place] [address] Instructional Manager: Naima Faith MD FIO2 28 [facility] Comment on above: Performed By: #### C DP, CP, TROPI, BNP #### [facility] [address] [place] [address] Instructional Manager: Naima Faith MD HCO3 (Bld) [Moles/Vol] 43.4 mmol/L High 22-26 [facility] Comment on above: Performed By: #### C DP, CP, TROPI, BNP #### [facility] [address] [place] [address] Instructional Manager: Naima Faith MD O2 Device/Flow/% Cannula [facility] Comment on above: Performed By: #### C DP, CP, TROPI, BNP #### [facility] [address] [place] [address] Instructional Manager: Naima Faith MD Oxygen (Bld) [Partial pressure] 66.6 mm[Hg] Low 80.0-100.0 [facility] Comment on above: Performed By: #### C DP, CP, TROPI, BNP #### [facility] [address] [place], [facility] Instructional Manager: Naima Faith MD Oxygen saturation in Blood 92.2 % Low 95-98 [facility] Comment on above: Performed By: #### C DP, CP, TROPI, BNP #### [address] [place], [facility] Instructional Manager: Naima Faith MD pCO2 73.5 mmHg Critically high 35-45 [facility] Comment on above: Performed By: #### C DP, CP, TROPI, BNP #### [address] [place], [facility] Instructional Manager: Naima Faith MD pCO2 Adj'd for Temp 73.5 Critically high 35.0-45.0 [facility] Comment on above: Performed By: #### C DP, CP, TROPI, BNP #### [address] [place], [facility] Instructional Manager: Naima Faith MD pH (Bld) 7.389 [pH] Normal 7.35-7.45 [facility] Comment on above: Performed By: #### C DP, CP, TROPI, BNP #### [address] [place], [place] [address] Instructional Manager: Naima Faith MD pH Adjst'd for Temp. 7.389 Normal 7.350-7.450 [facility] Comment on above: Performed By: #### C DP, CP, TROPI, BNP #### [address] [place], [place] 8811483 Instructional Manager: Naima Faith MD pO2 Adjst'd for Temp 66.6 mmHg Low 80.0-100.0 [facility] Comment on above: Performed By: #### C DP, CP, TROPI, BNP #### [facility] [address] [place] [address] Instructional Manager: Naima Faith MD Positive Base Excess 14.4 mmol/L High 0.0-2.0 [facility] Comment on above: Performed By: #### C DP, CP, TROPI, BNP #### [facility] [address] [place] [address] Instructional Manager: Naima Faith MD Site Drawn Left Brachial Artery [facility] Comment on above: Performed By: #### C DP, CP, TROPI, BNP #### [facility] [address] [place] [address] Instructional Manager: Naima Faith MD Text for Respiratory Called to PROVIDER on 02/10/2025 at 21:02 [facility] Comment on above: Performed By: #### C DP, CP, TROPI, BNP #### [address] [place] [address] Instructional Manager: Naima Faith MD Blood Gas, Arterialon 2024 Arterial patency Wrist artery --pre arterial puncture YES [facility] Body site Left Brachial Artery [facility] HCO3 (Bld) [Moles/Vol] 43.4 mmol/L High 22 - 26 mmol/L [facility] Interpretation and review of laboratory results Abnormal [facility] Oxygen gas flow Oxygen delivery system Cannula [facility] Oxygen saturation in Blood 92.2 % Low 95 - 98 % [facility] Oxygen/Inspired gas Respiratory system --on ventilator 28 [facility] pCO2, Art, Temp Adj 73.5 Critically high 35.0 - 45.0 [facility] pCO2, Arterial 73.5 Critically high [facility] pH, Art, Temp Adj 7.389 7.350 - 7.450 [facility] pH, Arterial 7.389 7.35 - 7.45 [facility] pO2, Art, Temp Adj 66.6 Low [facility] pO2, Arterial 66.6 Low [facility] Positive Base Excess, Art 14.4 mmol/L High 0.0 - 2.0 mmol/L [facility] Text for Respiratory Called to PROVIDER on 02/10/2025 at 21:[address] [facility] Blood Gas, Venouson 02-11-20 25 Arterial patency Wrist artery --pre arterial puncture NO [facility] HCO3 (Bld) [Moles/Vol] 38.2 mmol/L High 24.0 - 30.0 mmol/L [facility] Interpretation and review of laboratory results Abnormal [facility] Oxygen gas flow Oxygen delivery system BIPAP [facility] Oxygen saturation in Blood 74 % 60.0 - 85.0 % [facility] Oxygen/Inspired gas Respiratory system --on ventilator 28 [facility] pCO2, Galo 62 Critically high [facility] pCO2, Galo, Temp Adj 62 High [facility] pH, Galo 7.408 7.32 - 7.42 [facility] pH, Galo, Temp Adj 7.408 7.320 - 7.420 [facility] PO2, Galo 40.2 [facility] pO2, Galo, Temp Adj 40.2 [facility] Positive Base Excess, Galo 10.8 mmol/L High 0.0 - 2.0 mmol/L [facility] Text for Respiratory Called to PROVIDER on 02/10/2025 at 23:[address] [facility] Arterial patency Wrist artery --pre arterial puncture NOT APPLICABLE [facility] HCO3 (Bld) [Moles/Vol] 40.5 mmol/L High 24.0 - 30.0 mmol/L [facility] Interpretation and review of laboratory results Abnormal [facility] Oxygen saturation in Blood 43.3 % Low 60.0 - 85.0 % [facility] Oxygen/Inspired gas Respiratory system --on ventilator 21 [facility] pCO2, Galo 72 Critically high [facility] pCO2, Galo, Temp Adj 72 High [facility] pH, Galo 7.368 7.32 - 7.42 [facility] pH, Galo, Temp Adj 7.368 7.320 - 7.420 [facility] PO2, Galo 26 Low [facility] pO2, Galo, Temp Adj 26 Low [facility] Positive Base Excess, Galo 11.7 mmol/L High 0.0 - 2.0 mmol/L [facility] Text for Respiratory Called to PROVIDER on 02/10/2025 at 16:[address] [facility] Brain Natri. Peptideon 02-10 Natriuretic peptide B (Bld) [Mass/Vol] 147 pg/mL High 0-125 [facility] Comment on above: Performed By: #### C DP, CP, TROPI, BNP #### [facility] [address] [place] [address] Instructional Manager: Naima Faith MD Brain Natriuretic Peptideon 02-10-2025 Natriuretic peptide B (Bld) [Mass/Vol] 147 pg/mL High 0 - 125 pg/mL [facility] CBC with Auto Differentialon 02-10-2025 Basophils (Bld) [#/Vol] 0 10*3/uL [facility] Erythrocyte distribution width (RBC) [Ratio] 18.2 % High 11.8 - 14.4 % [facility] Hematocrit (Bld) [Volume fraction] 53 % High 40.7 - 50.3 % [facility] Hemoglobin (Bld) [Mass/Vol] 14.6 g/dL 13.0 - 17.0 g/dL [facility] Immature granulocytes (Bld) [#/Vol] 0.07 10*3/uL [facility] Interpretation and review of laboratory results Abnormal [facility] Lymphocytes/100 WBC (Bld) 1.28 % [facility] MCH (RBC) [Entitic mass] 24.6 pg Low 25.2 - 33.5 pg [facility] MCHC (RBC) [Mass/Vol] 27.5 g/dL Low 28.4 - 34.8 g/dL [facility] MCV (RBC) [Entitic vol] 89.2 fL 82.6 - 102.9 fL [facility] Monocytes/100 WBC (Bld) 0.5 % [facility] Morphology Gustavo (Bld) [Interp] HYPOCHROMIA PRESENT [facility] Neutrophils/100 WBC (Bld) 73 % High 36 - 65 % [facility] Nucleated RBC/100 WBC (Bld) [Ratio] 0 % 0.0 per 100 WBC [facility] Platelet mean volume (Bld) [Entitic vol] 9.4 fL 8.1 - 13.5 fL [facility] Platelets (Bld) [#/Vol] 162 10*3/uL [facility] RBC (Bld) [#/Vol] 5.94 10*6/uL High 4.21 - 5.7 7 m/uL [facility] Segmented neutrophils/100 WBC (Bld) 5.18 % [facility] WBC other (Bld) [#/Vol] 7.[address] [facility] CBC with Diffon 02-10-2025 Abs. Basophil 0.00 k/uL Normal 0.00-0.20 [facility] Comment on above: Performed By: #### C DP, CP, TROPI, BNP #### [address] [place] [address] Instructional Manager: Naima Faith MD Abs.Imm.Granulocyte 0.07 k/uL Normal 0.00-0.30 [facility] Comment on above: Performed By: #### C DP, CP, TROPI, BNP #### [address] [place], [place] [id number] Instructional Manager: Naima Faith MD Abs.Neutrophil (Seg) 5.18 k/uL Normal 1.50-8.10 [facility] Comment on above: Performed By: #### C DP, CP, TROPI, BNP #### [address] [place], [place] [id number] Instructional Manager: Naima Faith MD Basophils/100 WBC (Bld) 0 % Normal 0-2 [facility] Comment on above: Performed By: #### C DP, CP, TROPI, BNP #### [address] [place] [id number] Instructional Manager: Naima Faith MD Eosinophils (Bld) [#/Vol] 0.07 10*3/uL Normal 0.00-0.44 [facility] Comment on above: Performed By: #### C DP, CP, TROPI, BNP #### [address] [place] [id number] Instructional Manager: Naima Faith MD Eosinophils/100 WBC (Bld) 1 % Normal 1-4 [facility] Comment on above: Performed By: #### C DP, CP, TROPI, BNP #### [address] [place] [id number] Instructional Manager: Naima Faith MD Immature granulocytes/100 WBC (Bld) 1 % High 0 [facility] Comment on above: Performed By: #### C DP, CP, TROPI, BNP #### [address] [place] [id number] Instructional Manager: Naima Faith MD Lymphocytes (Bld) [#/Vol] 1.28 10*3/uL Normal 1.10-3.70 [facility] Comment on above: Performed By: #### C DP, CP, TROPI, BNP #### [address] [place], [facility] Instructional Manager: Naima Faith MD Lymphocytes/100 WBC (Bld) 18 % Low 24-43 [facility] Comment on above: Performed By: #### C DP, CP, TROPI, BNP #### [address] [place], [place] [id number] Instructional Manager: Naima Faith MD Monocytes (Bld) [#/Vol] 0.50 10*3/uL Normal 0.10-1.20 [facility] Comment on above: Performed By: #### C DP, CP, TROPI, BNP #### [address] [place], [place] [id number] Instructional Manager: Naima Faith MD Monocytes/100 WBC (Bld) 7 % Normal 3-12 [facility] Comment on above: Performed By: #### C DP, CP, TROPI, BNP #### [address] [place], [place] [address]459883 Instructional Manager: Naima Faith MD Morphology Gustavo (Bld) [Interp] HYPOCHROMIA Normal [facility] Comment on above: Result Comment: PRES ENT Performed By: #### C DP, CP, TROPI, BNP #### [address] [place], [place] [id number] Instructional Manager: Naima Faith MD Neutrophil (Seg) 73 % High 36-65 [facility] Comment on above: Performed By: #### C DP, CP, TROPI, BNP #### [address] [place], [place] [id number] Instructional Manager: Naima Faith MD Erythrocyte distribution width (RBC) [Ratio] 18.2 % High 11.8-14.4 [facility] Comment on above: Performed By: #### C DP, CP, TROPI, BNP #### [address] [place] [address] Instructional Manager: Naima Faith MD Hematocrit (Bld) [Volume fraction] 53.0 % High 40.7-50.3 [facility] Comment on above: Performed By: #### C DP, CP, TROPI, BNP #### [address] [place], [place] 7071683 Instructional Manager: Naima Faith MD Hemoglobin (Bld) [Mass/Vol] 14.6 g/dL Normal 13.0-17.0 [facility] Comment on above: Performed By: #### C DP, CP, TROPI, BNP #### [address] [place] [address] Instructional Manager: Naima Faith MD MCH (RBC) [Entitic mass] 24.6 pg Low 25.2-33.5 [facility] Comment on above: Performed By: #### C DP, CP, TROPI, BNP #### [address] [place] [id number] Instructional Manager: Naima Faith MD MCHC (RBC) [Mass/Vol] 27.5 g/dL Low 28.4-34.8 [facility] Comment on above: Performed By: #### C DP, CP, TROPI, BNP #### [address] [place] [address] Instructional Manager: Naima Faith MD MCV (RBC) [Entitic vol] 89.2 fL Normal 82.6-102.9 [facility] Comment on above: Performed By: #### C DP, CP, TROPI, BNP #### [address] [place] [id number] Instructional Manager: Naima Faith MD NRBC Automated 0.0 per [address] [facility] Comment on above: Performed By: #### C DP, CP, TROPI, BNP #### [address] [place] [id number] Instructional Manager: Naima Faith MD Platelet mean volume (Bld) [Entitic vol] 9.4 fL Normal 8.1-13.5 [facility] Comment on above: Performed By: #### C DP, CP, TROPI, BNP #### [address] [place] [address] Instructional Manager: Naima Faith MD Platelets (Bld) [#/Vol] 162 10*3/uL Normal 138-453 [facility] Comment on above: Performed By: #### C DP, CP, TROPI, BNP #### [address] [place] [address] Instructional Manager: Naima Faith MD RBC (Bld) [#/Vol] 5.94 10*6/uL High 4.21-5.77 [facility] Comment on above: Performed By: #### C DP, CP, TROPI, BNP #### [address] [place], [place] [id number] Instructional Manager: Naima Faith MD WBC (Bld) [#/Vol] 7.1 10*3/uL Normal 3.5-11.3 [facility] Comment on above: Performed By: #### C DP, CP, TROPI, BNP #### [address] [place], [facility] Instructional Manager: Naima Faith MD CT CHEST PULMONARY EMBOLISM W CONTRASTon 02-10-2025 Radiology Study observation (narrative) [facility] Comp Metabolic Profon 2024 Albumin [Mass/Vol] 4.3 g/dL Normal 3.5-5.2 [facility] Comment on above: Performed By: #### C DP, CP, TROPI, BNP #### [address] [place], [facility] ( Instructional Manager: Naima Faith MD Albumin/Glob Ratio 1.8 Normal 1.0-2.5 [facility] Comment on above: Performed By: #### C DP, CP, TROPI, BNP #### [address] [place] [address] Instructional Manager: Naima Faith MD Alkaline Phos 96 U/L Normal 40-129 [facility] Comment on above: Performed By: #### C DP, CP, TROPI, BNP #### [address] [place], [place] [id number] Instructional Manager: Naima Faith MD ALT [Catalytic activity/Vol] 21 U/L Normal 10-50 [facility] Comment on above: Performed By: #### C DP, CP, TROPI, BNP #### [facility] [address] [place], [place] 0853783 Instructional Manager: Naima Faith MD Anion gap [Moles/Vol] 8 mmol/L Low 9-16 [facility] Comment on above: Performed By: #### C DP, CP, TROPI, BNP #### [address] [place], [place] [id number] Instructional Manager: Naima Faith MD AST [Catalytic activity/Vol] 24 U/L Normal 10-50 [facility] Comment on above: Performed By: #### C DP, CP, TROPI, BNP #### [facility] [address] [place] [address] [place], [place] [id number] Instructional Manager: Naima Faith MD Bilirubin [Mass/Vol] 0.7 mg/dL Normal 0.00-1.20 [facility] Comment on above: Performed By: #### C DP, CP, TROPI, BNP #### [address] [place], [place] 1354383 Instructional Manager: Naima Faith MD BUN/CRE Ratio 28 High 9-20 [facility] Comment on above: Performed By: #### C DP, CP, TROPI, BNP #### [facility] [address] [place] [address] [place] [place], [place] 1353983 Instructional Manager: Naima Faith MD Calcium [Mass/Vol] 9.5 mg/dL Normal 8.6-10.4 [facility] Comment on above: Performed By: #### C DP, CP, TROPI, BNP #### [facility] [address] [place] [address] [place] [place], [place] 0666783 Instructional Manager: Naima Faith MD Chloride [Moles/Vol] 91 mmol/L Low 98-107 [facility] Comment on above: Performed By: #### C DP, CP, TROPI, BNP #### [facility] [address] [place] [address] Instructional Manager: Naima Faith MD CO2 [Moles/Vol] 41 mmol/L Critically high 20-31 [facility] Comment on above: Performed By: #### C DP, CP, TROPI, BNP #### [facility] [address] [place] [address] Instructional Manager: Naima Faith MD Creatinine [Mass/Vol] 0.5 mg/dL Low 0.70-1.20 [facility] Comment on above: Performed By: #### C DP, CP, TROPI, BNP #### [facility] [address] [place] [address] Instructional Manager: Naima Faith MD GFR/1.73 sq M.predicted among non-blacks MDRD (S/P/Bld) [Vol rate/Area] mL/min/{1.73_m2} Normal >60 [facility] Comment on above: Result Comment: These results [...] renal tubular secretion. Performed By: #### C DP, CP, TROPI, BNP #### [facility] [address] [place] [address] Instructional Manager: Naima Faith MD Glucose [Mass/Vol] 182 mg/dL High 74-99 [facility] Comment on above: Performed By: #### C DP, CP, TROPI, BNP #### [facility] [address] [place] [address] [place] [address] Instructional Manager: Naima Faith MD Potassium [Moles/Vol] 4.6 mmol/L Normal 3.7-5.3 [facility] Comment on above: Performed By: #### C DP, CP, TROPI, BNP #### [address] [place] [address] Instructional Manager: Naima Faith MD Protein [Mass/Vol] 6.7 g/dL Normal 6.6-8.7 [facility] Comment on above: Performed By: #### C DP, CP, TROPI, BNP #### [address] [place] [address] Instructional Manager: Naima Faith MD Sodium [Moles/Vol] 140 mmol/L Normal 136-145 [facility] Comment on above: Performed By: #### C DP, CP, TROPI, BNP #### [address] [place] [address] Instructional Manager: Naima Faith MD Urea nitrogen [Mass/Vol] 14 mg/dL Normal 8-23 [facility] Comment on above: Performed By: #### C DP, CP, TROPI, BNP #### [address] [place] [address] Instructional Manager: Naima Faith MD Comprehensive Metabolic Pane [facility] 02-10-2025 Albumin [Mass/Vol] 4.3 g/dL 3.5 - 5.2 g/dL [facility] Albumin/Globulin [Mass ratio] 1.8 {ratio} 1.0 - 2.5 [facility] ALP [Catalytic activity/Vol] 96 U/L 40 - 129 U/L [facility] ALT [Catalytic activity/Vol] 21 U/L 10 - 50 U/L [facility] Anion gap [Moles/Vol] 8 mmol/L Low 9 - 16 mmol/L [facility] AST [Catalytic activity/Vol] 24 U/L 10 - 50 U/L [facility] Bilirubin [Mass/Vol] 0.7 mg/dL 0.00 - 1.20 mg/dL [facility] Calcium [Mass/Vol] 9.5 mg/dL 8.6 - 10. 4 mg/dL [facility] Chloride [Moles/Vol] 91 mmol/L Low 98 - 10 7 mmol/L [facility] CO2 [Moles/Vol] 41 mmol/L Critically high 20 - 31 mmol/L [facility] Creatinine [Mass/Vol] 0.5 mg/dL Low 0.70 - 1.20 mg/dL [facility] Est, Glom Filt Rate - PINF [facility] Glucose [Mass/Vol] 182 mg/dL High 74 - 99 mg/dL [facility] Potassium [Moles/Vol] 4.6 mmol/L 3.7 - 5.3 mmol/L [facility] Protein [Mass/Vol] 6.7 g/dL 6.6 - 8.7 g/dL [facility] Sodium [Moles/Vol] 140 mmol/L 136 - 145 mmol/L [facility] Urea nitrogen [Mass/Vol] 14 mg/dL 8 - 23 mg/dL [facility] Urea nitrogen/Creatinine [Mass ratio] 28 mg/mg High 9 - 20 [facility] D-Dimer Teston 02-10-2025 D-Dimer Test 0.35 ug/mL FEU Normal 0.00-0.59 [facility] Comment on above: Result Comment: When combined with a low clinical probability, a D dimer value of <0.50 ug/mL FEU is considered negative for DVT and PE (negative predictive value of 98%, sensitivity of 97%). If this test is not being used to help rule out DVT and PE, then the following reference range should be utilized: 0.00 - 0.59 ug/mL FEU. The D-Dimer assay is intended [...] with distal DVT. Performed By: #### D ADAM #### [facility] [address] [place] [address] [place] [address] Instructional Manager: Naima Faith MD D-Dimer, Quantitativeon 01-15 Fibrin D-dimer FEU (PPP) [Mass/Vol] 0.[address] [facility] No Panel Informationon 02-10 Interpretation and review of laboratory results Abnormal [facility] Portable XR Chest AP single viewon 02-10-2025 MHPN RIS CONSOLIDATED PN RIS CONSOLIDATED [facility] Radiology Study observation (narrative) [facility] Portable XR Chest AP single viewOrdered By: Rayray Mares on 02-10-2025 [facility] Work Phone: Resp Viral Panelon Source: .NASOPHARYNGEAL SWAB Normal [facility] Comment on above: Performed By: #### C DP, CP, TROPI, BNP #### [address] [place] [address] Instructional Manager: Naima Faith MD Troponinon 02-10-2025 Interpretation and review of laboratory results Abnormal [facility] Troponin I.cardiac High sensitivity method [Mass/Vol] 131 ng/L Critically high 0 - 22 ng/L [facility] Troponin, High Sens 131 ng/L Critically high 0-22 [facility] Comment on above: Result Comment: High Sensitivity Troponin values cannot be compared with other Troponin methodologies. Performed By: #### C DP, CP, TROPI, BNP #### [facility] [address] [place] [address] Instructional Manager: Naima Faith MD Troponin I.cardiac High sensitivity method [Mass/Vol] 149 ng/L Critically high 0 - 22 ng/L [facility] Troponin, High Sens 149 ng/L Critically high 0-22 [facility] Comment on above: Result Comment: High Sensitivity Troponin values cannot be compared with other Troponin methodologies. Performed By: #### C DP, CP, TROPI, BNP #### [facility] [address] [place], [place] 8953483 Instructional Manager: Naima Faith MD Venous Blood Gaseson 025 Ethan Test NO [facility] Comment on above: Performed By: #### C DP, CP, TROPI, BNP #### [address] [place], [place] 5924583 Instructional Manager: Naima Faith MD Body Temp. 37.0 [facility] Comment on above: Performed By: #### C DP, CP, TROPI, BNP #### [address] [place], [place] [id number] Instructional Manager: Naima Faith MD [facility] 28 [facility] Comment on above: Performed By: #### C DP, CP, TROPI, BNP #### [facility] [address] [place] [address] [place], [place] 2600083 Instructional Manager: Naima Faith MD HCO3 (Bld) [Moles/Vol] 38.2 mmol/L High 24.0-30.0 [facility] Comment on above: Performed By: #### C DP, CP, TROPI, BNP #### [facility] [address] [place] [address] Instructional Manager: Naima Faith MD O2 Device/Flow/% BIPAP [facility] Comment on above: Performed By: #### C DP, CP, TROPI, BNP #### [address] [place], [place] 7850383 Instructional Manager: Naima Faith MD Oxygen saturation in Blood 74.0 % Normal 60.0-85.0 [facility] Comment on above: Performed By: #### C DP, CP, TROPI, BNP #### [address] [place], [place] 1649083 Instructional Manager: Naima Faith MD pCO2 62.0 mm Hg Critically high 39-55 [facility] Comment on above: Performed By: #### C DP, CP, TROPI, BNP #### [address] [place], [place] 8144683 Instructional Manager: Naima Faith MD Pco2 Adj'd for Temp. 62.0 mmHg High 39.0-55.0 [facility] Comment on above: Performed By: #### C DP, CP, TROPI, BNP #### [address] [place], [place] 7408683 Instructional Manager: Naima Faith MD pH (Bld) 7.408 [pH] Normal 7.32-7.42 [facility] Comment on above: Performed By: #### C DP, CP, TROPI, BNP #### [address] [place], [place] 5354183 Instructional Manager: Naima Faith MD pH Adjst'd for Temp. 7.408 Normal 7.320-7.420 [facility] Comment on above: Performed By: #### C DP, CP, TROPI, BNP #### [address] [place], [place] 2549583 Instructional Manager: Naima Faith MD pO2 40.2 mm Hg Normal 30.0-50.0 [facility] Comment on above: Performed By: #### C DP, CP, TROPI, BNP #### [address] [place] [address] Instructional Manager: Naima Faith MD pO2 Adj'd for Temp. 40.2 mmHg Normal 30.0-50.0 [facility] Comment on above: Performed By: #### C DP, CP, TROPI, BNP #### [facility] [address] [place], [facility] Instructional Manager: Naima Faith MD Positive Base Excess 10.8 mmol/L High 0.0-2.0 [facility] Comment on above: Performed By: #### C DP, CP, TROPI, BNP #### [address] [place] [id number] Instructional Manager: Naima Faith MD Text for Respiratory Called to PROVIDER on 02/10/2025 at 23:07 [facility] Comment on above: Performed By: #### C DP, CP, TROPI, BNP #### [address] [place], [facility] Instructional Manager: Naima Faith MD Ethan Test NOT APPLICABLE [facility] Comment on above: Performed By: #### V BG #### [address] [place], [facility] Instructional Manager: Naima Faith MD Body Temp. 37.0 [facility] Comment on above: Performed By: #### V BG #### [facility] [address] [place], [facility] Instructional Manager: Naima Faith MD FIO2 21 [facility] Comment on above: Performed By: #### V BG #### [facility] [address] [place], [place] [id number] Instructional Manager: Naima Faith MD HCO3 (Bld) [Moles/Vol] 40.5 mmol/L High 24.0-30.0 [facility] Comment on above: Performed By: #### V BG #### [facility] [address] [place], [place] 1561083 Instructional Manager: Naima Faith MD Oxygen saturation in Blood 43.3 % Low 60.0-85.0 [facility] Comment on above: Performed By: #### V BG #### [facility] [address] [place], [place] 7103183 Instructional Manager: Naima Faith MD pCO2 72.0 mm Hg Critically high 39-55 [facility] Comment on above: Performed By: #### V BG #### [facility] [address] [place] [address] Instructional Manager: Naima Faith MD Pco2 Adj'd for Temp. 72.0 mmHg High 39.0-55.0 [facility] Comment on above: Performed By: #### V BG #### [facility] [address] [place], [place] 1611183 Instructional Manager: Naima Faith MD pH (Bld) 7.368 [pH] Normal 7.32-7.42 [facility] Comment on above: Performed By: #### V BG #### [address] [place], [place] 3137383 Instructional Manager: Naima Faith MD pH Adjst'd for Temp. 7.368 Normal 7.320-7.420 [facility] Comment on above: Performed By: #### V BG #### [facility] [address] [place], [place] 1854983 Instructional Manager: Naima Faith MD pO2 26.0 mm Hg Low 30.0-50.0 [facility] Comment on above: Performed By: #### V BG #### [facility] [address] [place] [address] Instructional Manager: Naima Faith MD pO2 Adj'd for Temp. 26.0 mmHg Low 30.0-50.0 [facility] Comment on above: Performed By: #### V BG #### [facility] [address] [place] [address] Instructional Manager: Naima Faith MD Positive Base Excess 11.7 mmol/L High 0.0-2.0 [facility] Comment on above: Performed By: #### V BG #### [facility] [address] [place], [place] 1688883 Instructional Manager: Naima Faith MD Text for Respiratory Called to PROVIDER on 02/10/2025 at 16:[address] [facility] Comment on above: Performed By: #### V BG #### [facility] [address] [place] [address] Instructional Manager: Naima Faith MD XR CHEST PORTABLEon 02-11-20 XR CHEST PORTABLE EXAMINATION: ONE XRAY VIEW OF THE CHEST 02/10/2025 4:29 pm COMPARISON: None. HISTORY: ORDERING SYSTEM PROVIDED HISTORY: dyspnea TECHNOLOGIST PROVIDED HISTORY: dyspnea FINDINGS: Lines and tubes: None The lungs are clear. Heart size is normal. IMPRESSION: No acute cardiopulmonary process. Interpreted by: Rayray Mares MD Signed by: Rayray Mares MD 02/10/25 CC Recipients: Raymundo Lugo, DO - Fax (authorizing provider) Final result Normal [facility] - Other Lab [facility] - Other Lab Results [id number] .[id number] Normal [facility] Cardiac echo study Procedure Ordered By: Jaciel Sparrow on 12-16-2024 Aortic Sinus Valsalva 3.3 cm [employer] Phone: Aortic Sinus Valsalva Index 1.59 cm/m2 [employer] Phone: AV Area by Peak Velocity 0.7 cm2 [employer] Phone: AV Area by VTI 0.7 cm2 [employer] Phone: AV Cusp Mmode 0.8 cm [facility] [employer] Work Phone: AV Mean Gradient 37 mmHg [facility] [employer] Work Phone: AV Mean Velocity 2.9 m/s [facility] [employer] Work Phone: AV Peak Gradient 63 mmHg [facility] Work Phone: AV Peak Velocity 4.0 m/s [facility] Work Phone: AV Velocity Ratio 0.18 [facility] [employer] Phone: AV VTI 105.0 cm [facility] [employer] Phone: LATOYA/BSA Peak Velocity 0.3 cm2/m2 [facility] [employer] Phone: LATOYA/BSA VTI 0.3 cm2/m2 [employer] Phone: Body surface area Derived from formula 2.11 m2 [employer] Phone: E/E' Lateral 8.01 [employer] Phone: EF 3D 56 % [employer] Phone: EF Physician 60 % [employer] Phone: Fractional Shortening 2D 28 % 28 - 44 % [employer] Phone: Interpretation and review of laboratory results Abnormal [employer] Phone: IVSd 1.1 cm Abnormal 0.6 - 1.0 cm [employer] Phone: LV E' Lateral Velocity 7.62 cm/s [employer] Phone: LV EDV A4C 86 mL [employer] Phone: LV EDV Index A4C 41 mL/m2 [facility] [employer] Work Phone: LV Ejection Fraction A4C 56 % [facility] [employer] Phone: LV ESV A4C 38 mL [facility] [employer] Work Phone: LV ESV Index A4C 18 mL/m2 [facility] [employer] Phone: LV Mass 2D 173.6 g 88 - 224 g [employer] Phone: LV Mass 2D Index 83.5 g/m2 49 - 115 g/m2 [facility] [employer] Work Phone: LV RWT Ratio 0.56 [employer] Phone: LVIDd 4.3 cm 4.2 - 5.9 cm [employer] Phone: LVIDd Index 2.07 cm/m2 [employer] Phone: LVIDs 3.1 cm [employer] Phone: LVIDs Index 1.49 cm/m2 [employer] Phone: LVOT Area 3.1 cm2 [employer] Phone: LVOT Diameter 2.0 cm [employer] Phone: LVOT Mean Gradient 1 mmHg [facility] [employer] Work Phone: LVOT Peak Gradient 2 mmHg Bon [employer] Work Phone: LVOT Peak Velocity 0.7 m/s [facility] [employer] Work Phone: LVOT Stroke Volume Index 24.3 mL/m2 [employer] Phone: LVOT SV 50.6 ml [employer] Phone: LVOT VTI 16.1 cm [employer] Phone: LVOT:AV VTI Index 0.15 [facility] [employer] Phone: LVPWd 1.2 cm Abnormal 0.6 - 1.0 cm [employer] Work Phone: MV A Velocity 0.74 m/s [employer] Work Phone: MV E Velocity 0.61 m/s [employer] Work Phone: MV E Wave Deceleration Time 209.0 ms [employer] Work Phone: MV E/A 0.82 [employer] Work Phone: PV Max Velocity 0.9 m/s Jean Paul [employer] Work Phone: PV Peak Gradient 3 mmHg Jean Paul [employer] Work Phone: [facility] [employer] Phone: Cardiac echo study Procedure on 12-16-2024 Left Ventricle: Norm al left ventricular systolic function with a visually estimated EF of 55 - 60%. Left ventricle size is normal. Mildly increased wall thickness. Normal wall motion. Grade I diastolic dysfunction with normal LAP. Right Ventricle: Right ventricle size is normal. Normal systolic function. Aortic Valve: Calcified cusps. Likely bicuspid aortic valve with fusion of the left and coronary cusps. Moderate to severe stenosis of the aortic valve. AV mean gradient is 37 mmHg. AV peak gradient is 63 mmHg. AV area by continuity VTI is 0.7 cm . Aorta: Normal sized aortic root. Pericardium: The pericardium is normal. No pericardial effusion. Left Ventricle Normal left ventricular systolic function with a visually estimated EF of 55 - 60%. Left ventricle size is normal. Mildly increased wall thickness. Normal wall motion. Grade I diastolic dysfunction with normal LAP. Right Ventricle Right ventricle size is normal. Normal systolic function. Left Atrium Left atrium size is normal. Right Atrium Right atrium size is normal. IVC/SVC IVC diameter is less than or equal to 21 mm and decreases greater than 50% during inspiration; therefore the estimated right atrial pressure is normal (~3 mmHg). IVC size is normal. Mitral Valve Valve structure is normal. No regurgitation. No stenosis noted. Tricuspid Valve Valve structure is normal. No regurgitation. No stenosis noted. Aortic Valve Calcified cusps. Likely bicuspid aortic valve with fusion of the left and coronary cusps. No regurgitation. Moderate to severe stenosis of the aortic valve. AV mean gradient is 37 mmHg. AV peak gradient is 63 mmHg. AV area by continuity VTI is 0.7 cm . Pulmonic Valve The pulmonic valve visualization is suboptimal but appears to be functioning normally. Physiologically normal regurgitation. No stenosis noted. Ascending Aorta Normal sized aortic root. Pericardium The pericardium is normal. No pericardial effusion. Study Details Image quality: technically difficult. No contrast was given. [facility] Radiology Study observation (narrative) [facility] Outside [facility] 10-03-2024 Outside Records [id number]. [facility] - Other Lab Results [id number]. [facility] 07-23-2024 Outside Records [id number] [facility] Patient Provided Health Data on 04-26-2024 Patient Provided Health Data [id number] [facility] B-Type Natriuretic Peptideon 06-20-2023 Natriuretic peptide B (Bld) [Mass/Vol] 14.0 pg/mL Normal 5-100 [facility] Comment on above: Result Comment: PERF ORMED BY: [place] [address] PATHOLOGIST PRODUCT MARKETING EXECUTIVE LUIS KHANNA M.D. Performed By: #### P TT, BNP, BMP, PT, HS TROP, HEPATIC, CK, CBC #### [address] Basic Metabolic Panelon Anion gap [Moles/Vol] 11.4 mmol/L Normal 6.0-15.0 [facility] Comment on above: Performed By: #### P TT, BNP, BMP, PT, HS TROP, HEPATIC, CK, CBC #### [facility] [address] Calcium [Mass/Vol] 9.3 mg/dL Normal 8.6-10.3 [facility] Comment on above: Performed By: #### P TT, BNP, BMP, PT, HS TROP, HEPATIC, CK, CBC #### [facility] [address] Chloride [Moles/Vol] 97 mmol/L Low 98-107 [facility] Comment on above: Performed By: #### P TT, BNP, BMP, PT, HS TROP, HEPATIC, CK, CBC #### [address] CO2 [Moles/Vol] 35.5 mmol/L High 21.0-31.0 [place] [facility] Comment on above: Performed By: #### P TT, BNP, BMP, PT, HS TROP, HEPATIC, CK, CBC #### [address] Creatinine [Mass/Vol] 0.46 mg/dL Low 0.70-1.30 [facility] Comment on above: Performed By: #### P TT, BNP, BMP, PT, HS TROP, HEPATIC, CK, CBC #### [address] Creatinine Clr Calc Pharmacy 95.70 [facility] Comment on above: Result Comment: PERF ORMED BY: [place] [address] PATHOLOGIST PRODUCT MARKETING EXECUTIVE LUIS KHANNA M.D. Performed By: #### P TT, BNP, BMP, PT, HS TROP, HEPATIC, CK, CBC #### [address] GFR/1.73 sq M.predicted MDRD (S/P/Bld) [Vol rate/Area] mL/min/{1.73_m2} [facility] Comment on above: Performed By: #### P TT, BNP, BMP, PT, HS TROP, HEPATIC, CK, CBC #### [place] [id number] [place] Glucose [Mass/Vol] 225 mg/dL High 70-100 [facility] Comment on above: Result Comment: [facility] Glucose Reference Range is dependent on time and content of last meal. Glucose of more than 200 mg/dL in a nonstressed, ambulatory subject supports the diagnosis of Diabetes Mellitus. ADA recommended reference range Performed By: #### P TT, BNP, BMP, PT, HS TROP, HEPATIC, CK, CBC #### [address] Potassium [Moles/Vol] 3.9 mmol/L Normal 3.5-5.1 [facility] Comment on above: Performed By: #### P TT, BNP, BMP, PT, HS TROP, HEPATIC, CK, CBC #### [address] Sodium [Moles/Vol] 140 mmol/L Normal 136-145 [facility] Comment on above: Performed By: #### P TT, BNP, BMP, PT, HS TROP, HEPATIC, CK, CBC #### [address] Urea nitrogen [Mass/Vol] 15 mg/dL Normal 7-25 [facility] Comment on above: Performed By: #### P TT, BNP, BMP, PT, HS TROP, HEPATIC, CK, CBC #### [address] Complete Blood Count Auto Di ffon 06-20-2023 Basophils (Bld) [#/Vol] 0.1 10*3/uL Normal 0.0-0.2 [facility] Comment on above: Result Comment: PERF ORMED BY: [place] [address] PATHOLOGIST PRODUCT MARKETING EXECUTIVE LUIS KHANNA M.D. Performed By: #### P TT, BNP, BMP, PT, HS TROP, HEPATIC, CK, CBC #### [address] Basophils/100 WBC (Bld) 0.6 % Normal . [facility] Comment on above: Performed By: #### P TT, BNP, BMP, PT, HS TROP, HEPATIC, CK, CBC #### [address] Eosinophils (Bld) [#/Vol] 0.1 10*3/uL Normal 0.0-0.45 [facility] Comment on above: Performed By: #### P TT, BNP, BMP, PT, HS TROP, HEPATIC, CK, CBC #### [address] Eosinophils/100 WBC (Bld) 0.7 % Normal . [facility] Comment on above: Performed By: #### P TT, BNP, BMP, PT, HS TROP, HEPATIC, CK, CBC #### [address] Erythrocyte distribution width (RBC) [Ratio] 15.7 % High 12.0-14.8 [facility] Comment on above: Performed By: #### P TT, BNP, BMP, PT, HS TROP, HEPATIC, CK, CBC #### [address] Hematocrit (Bld) [Volume fraction] 44.3 % Normal 38.8-50.0 [facility] Comment on above: Performed By: #### P TT, BNP, BMP, PT, HS TROP, HEPATIC, CK, CBC #### [address] Hemoglobin (Bld) [Mass/Vol] 14.2 g/dL Normal 13.0-17.0 [facility] Comment on above: Performed By: #### P TT, BNP, BMP, PT, HS TROP, HEPATIC, CK, CBC #### [address] Lymphocytes (Bld) [#/Vol] 1.5 10*3/uL Normal 1.00-4.8 [facility] Comment on above: Performed By: #### P TT, BNP, BMP, PT, HS TROP, HEPATIC, CK, CBC #### [address] Lymphocytes/100 WBC (Bld) 15.8 % Normal . [facility] Comment on above: Performed By: #### P TT, BNP, BMP, PT, HS TROP, HEPATIC, CK, CBC #### [address] MCH (RBC) [Entitic mass] 30.2 pg Normal 27.5-35.2 [facility] Comment on above: Performed By: #### P TT, BNP, BMP, PT, HS TROP, HEPATIC, CK, CBC #### [address] MCV (RBC) [Entitic vol] 94.3 fL Normal 83.5-101 [facility] Comment on above: Performed By: #### P TT, BNP, BMP, PT, HS TROP, HEPATIC, CK, CBC #### [address] Mean Corpuscular HGB Conc 32.1 g/dL Low 32.5-35.6 [facility] Comment on above: Performed By: #### P TT, BNP, BMP, PT, HS TROP, HEPATIC, CK, CBC #### [address] Monocytes (Bld) [#/Vol] 0.6 10*3/uL Normal 0.0-0.8 [facility] Comment on above: Performed By: #### P TT, BNP, BMP, PT, HS TROP, HEPATIC, CK, CBC #### [address] Monocytes/100 WBC (Bld) 18.00 % Normal 0.00-20.00 [facility] Comment on above: Performed By: #### P TT, BNP, BMP, PT, HS TROP, HEPATIC, CK, CBC #### [address] Monocytes/100 WBC (Bld) 6.2 % Normal . [facility] Comment on above: Performed By: #### P TT, BNP, BMP, PT, HS TROP, HEPATIC, CK, CBC #### [address] [place] [address] [place] Neutrophils (Bld) [#/Vol] 7.1 10*3/uL Normal 1.8-7.7 [facility] Comment on above: Performed By: #### P TT, BNP, BMP, PT, HS TROP, HEPATIC, CK, CBC #### [facility] [address] Neutrophils/100 WBC (Bld) 76.7 % Normal . [facility] Comment on above: Performed By: #### P TT, BNP, BMP, PT, HS TROP, HEPATIC, CK, CBC #### [facility] [address] NRBC% 0.1 /100{WBC} Normal 0-0.5 [facility] Comment on above: Performed By: #### P TT, BNP, BMP, PT, HS TROP, HEPATIC, CK, CBC #### [address] Platelet mean volume (Bld) [Entitic vol] 8.4 fL Normal 6.6-10.1 [facility] Comment on above: Performed By: #### P TT, BNP, BMP, PT, HS TROP, HEPATIC, CK, CBC #### [address] Platelets (Bld) [#/Vol] 260 10*3/uL Normal 150-450 [facility] Comment on above: Performed By: #### P TT, BNP, BMP, PT, HS TROP, HEPATIC, CK, CBC #### [address] RBC (Bld) [#/Vol] 4.70 10*6/uL Normal 3.90-5.60 [facility] Comment on above: Performed By: #### P TT, BNP, BMP, PT, HS TROP, HEPATIC, CK, CBC #### [address] WBC (Bld) [#/Vol] 9.3 10*3/uL Normal 4.1-10.5 [facility] Comment on above: Performed By: #### P TT, BNP, BMP, PT, HS TROP, HEPATIC, CK, CBC #### [facility] [address] [place] [address] Creatine Kinaseon 06-20-2023 CK [Catalytic activity/Vol] 76 U/L Normal 30-223 [facility] Comment on above: Performed By: #### P TT, BNP, BMP, PT, HS TROP, HEPATIC, CK, CBC #### [facility] [address] ECG 12 lead ECGon 06-20-2023 ECG 12 lead ECG [facility] [place] [address] [place] [address] Electrocardiograph Report Signed Patient: Evgeny Delgado MR#: [id number] : 1955 Acct:[id number] Age/Sex: 68 / M ADM Date: 06/20/23 Loc: ER Room: Type: [facility] ER Attending Dr: Ordering Provider: [...] ECGs available Confirmed by Triston Perez DO ([id number]) on 06/20/2023 6:51:22 PM Referred By: Electronically Signed By:Triston Perez DO Transcribed By: MUS Signed By Triston Perez DO 3 [phone] [facility] Hepatic Panelon 06-20-2023 Albumin [Mass/Vol] 3.8 g/dL Normal 3.5-5.7 [facility] Comment on above: Performed By: #### P TT, BNP, BMP, PT, HS TROP, HEPATIC, CK, CBC #### [facility] [address] Albumin/Globulin [Mass ratio] 1.4 {ratio} Normal [facility] Comment on above: Performed By: #### P TT, BNP, BMP, PT, HS TROP, HEPATIC, CK, CBC #### [address] ALP [Catalytic activity/Vol] 84 U/L Normal 34-104 [facility] Comment on above: Performed By: #### P TT, BNP, BMP, PT, HS TROP, HEPATIC, CK, CBC #### [address] ALT [Catalytic activity/Vol] 21 U/L Normal 7-52 [facility] Comment on above: Performed By: #### P TT, BNP, BMP, PT, HS TROP, HEPATIC, CK, CBC #### [address] AST [Catalytic activity/Vol] 20 U/L Normal 13-39 [facility] Comment on above: Performed By: #### P TT, BNP, BMP, PT, HS TROP, HEPATIC, CK, CBC #### [address] Bilirubin [Mass/Vol] 0.7 mg/dL Normal 0.3-1.0 [facility] Comment on above: Performed By: #### P TT, BNP, BMP, PT, HS TROP, HEPATIC, CK, CBC #### [address] Bilirubin,Indirect 0.5 mg/dL Normal [facility] Comment on above: Performed By: #### P TT, BNP, BMP, PT, HS TROP, HEPATIC, CK, CBC #### [address] Bilirubin.indirect [Mass/Vol] 0.20 mg/dL High 0.03-0.18 [facility] Comment on above: Performed By: #### P TT, BNP, BMP, PT, HS TROP, HEPATIC, CK, CBC #### [facility] [address] Globulin (S) [Mass/Vol] 2.7 g/dL Normal [facility] Comment on above: Performed By: #### P TT, BNP, BMP, PT, HS TROP, HEPATIC, CK, CBC #### [facility] [address] Protein [Mass/Vol] 6.5 g/dL Normal 6.4-8.9 [facility] Comment on above: Performed By: #### P TT, BNP, BMP, PT, HS TROP, HEPATIC, CK, CBC #### [address] Partial Thromboplastin Timeo n 06-20-2023 aPTT Coag (Bld) [Time] 28.3 s Normal 25.1-36.5 [facility] Comment on above: Result Comment: PERF ORMED BY: [place] [address] PATHOLOGIST PRODUCT MARKETING EXECUTIVE LUIS KHANNA M.D. Performed By: #### P TT, BNP, BMP, PT, HS TROP, HEPATIC, CK, CBC #### [address] Prothrombin Time INRon 06-20 INR Coag (PPP) [Relative time] 1.0 {INR} Normal [facility] Comment on above: Result Comment: INR [...] PT, HS TROP, HEPATIC, CK, CBC #### [address] PT Coag (PPP) [Time] 11.9 s Normal 9.0-12.9 [facility] Comment on above: Performed By: #### P TT, BNP, BMP, PT, HS TROP, HEPATIC, CK, CBC #### [facility] [address] Troponin I High Sensitivityo n 06-20-2023 Troponin I High Sensitivity 6.9 pg/mL Normal 0.0-20.0 [facility] Comment on above: Result Comment: PERF ORMED BY: [place] [address] PATHOLOGIST PRODUCT MARKETING EXECUTIVE LUIS KHANNA M.D. Performed By: #### P TT, BNP, BMP, PT, HS TROP, HEPATIC, CK, CBC #### [facility] [address] [place] [address] XR chest 1V portableon 06-20 XR chest 1V portable [facility] [place] [address] [place] [address] XRay Report Signed Patient: Evgeny Delgado MR#: [id number] : 1955 Acct:[id number] Age/Sex: 68 / M ADM Date: 06/20/23 [...] CONSOLIDATION TO SUGGEST PNEUMONIA. Impression dictated by: Quinn Manuel Jr., D.OIndy06/20/2023 5:23 PM Dictation Location: [place] [address] Transcribed By: [facility] 06/20/231722 Dictated By: Quinn Manuel Jr, DO 06/20/231721 Signed By: 06/20/231722 Normal [facility] PULMONARY FUNCTIONon 023 PULMONARY FUNCTION [address] [place] [address] PULMONARY FUNCTION PATIENT NAME: EVGENY DELGADO : 1955 MED REC NO: [id number] ROOM: 2007 ACCOUNT NO: [id number] ADMIT DATE: 04/09/2023 PROVIDER: Sumanth Perkins DATE [...] and FVC is 1.64 liters. SUMANTH PERKINS /[id number] Doc#: [id number] CC: Normal [facility] Basic Metab w/rfx MGon 04-20 Anion gap [Moles/Vol] 10 mmol/L Normal 9-17 [facility] Comment on above: Performed By: #### Cooper ADAM, HEPXA #### [facility] [employer] [address] [place] [address] [phone] Instructional Manager: Reggie Chavez MD Calcium [Mass/Vol] 9.0 mg/dL Normal 8.6-10.4 [facility] Comment on above: Performed By: #### D ADAM, HEPXA #### [facility] [address] [place] [phone] Instructional Manager: Reggie Chavez MD Chloride [Moles/Vol] 93 mmol/L Low 98-107 [facility] Comment on above: Performed By: #### D ADAM, HEPXA #### [facility] [employer] [address] [place] [address] [phone] Instructional Manager: Reggie Chavez MD CO2 [Moles/Vol] 30 mmol/L Normal 20-31 [facility] Comment on above: Performed By: #### Cooper ADAM, HEPXA #### [facility] [address] [place] [address] [phone] Instructional Manager: Reggie Chavez MD Creatinine [Mass/Vol] 0.45 mg/dL Low 0.70-1.20 [facility] Comment on above: Performed By: #### Cooper ADAM, HEPXA #### [facility] [employer] [address] [place] [address] Instructional Manager: Reggie Chavez MD GFR/1.73 sq M.predicted among non-blacks MDRD (S/P/Bld) [Vol rate/Area] mL/min/{1.73_m2} Normal >60 [facility] Comment on above: Result Comment: These results [...] renal tubular secretion. Performed By: #### Cooper ADAM, HEPXA #### [facility] [address] [place] [address] [phone] Instructional Manager: Reggie Chavez MD Glucose [Mass/Vol] 161 mg/dL High 70-99 [facility] Comment on above: Performed By: #### Cooper ADAM, HEPXA #### [facility] [address] [place] [phone] Instructional Manager: Reggie Chavez MD Potassium [Moles/Vol] 5.5 mmol/L High 3.7-5.3 [facility] Comment on above: Result Comment: SPEC IMEN MODERATELY HEMOLYZED, RESULTS MAY BE ADVERSELY AFFECTED Performed By: #### Cooper ADAM, HEPXA #### [employer] [address] [place] [phone] Instructional Manager: Reggie Chavez MD Sodium [Moles/Vol] 133 mmol/L Low 135-144 [facility] Comment on above: Performed By: #### D ADAM, HEPXA #### [address] [address] Instructional Manager: Reggie Chavez MD Urea nitrogen [Mass/Vol] 20 mg/dL Normal 8-23 [facility] Comment on above: Performed By: #### D ADAM, HEPXA #### [address] [address] Instructional Manager: Reggie Chavez MD CBC with Diffon 04-20-2023 Abs. Basophil 0.04 k/uL Normal 0.00-0.20 [facility] Comment on above: Performed By: #### Cooper ADAM, HEPXA #### [address] [address] Instructional Manager: Reggie Chavez MD Abs.Imm.Granulocyte 0.12 k/uL Normal 0.00-0.30 [facility] Comment on above: Performed By: #### D ADAM, HEPXA #### [address] [address] Instructional Manager: Reggie Chavez MD Abs.Neutrophil (Seg) 6.32 k/uL Normal 1.50-8.10 [facility] Comment on above: Performed By: #### D ADAM, HEPXA #### [address] [address] Instructional Manager: Reggie Chavez MD Basophils/100 WBC (Bld) 0 % Normal 0-2 [facility] Comment on above: Performed By: #### D ADAM, HEPXA #### [address] [address] Instructional Manager: Reggie Chavez MD Eosinophils (Bld) [#/Vol] 0.13 10*3/uL Normal 0.00-0.44 [facility] Comment on above: Performed By: #### D ADAM, HEPXA #### [facility] [address] [place] [address] Instructional Manager: Reggie Chavez MD Eosinophils/100 WBC (Bld) 1 % Normal 1-4 [facility] Comment on above: Performed By: #### D ADAM, HEPXA #### [facility] [address] [place] [phone] Instructional Manager: Reggie Chavez MD Erythrocyte distribution width (RBC) [Ratio] 13.4 % Normal 11.8-14.4 [facility] Comment on above: Performed By: #### D ADAM, HEPXA #### [address] [address] Instructional Manager: Reggie Chavez MD Hematocrit (Bld) [Volume fraction] 38.6 % Low 40.7-50.3 [facility] Comment on above: Performed By: #### D ADAM, HEPXA #### [address] [address] Instructional Manager: Reggie Chavez MD Hemoglobin (Bld) [Mass/Vol] 12.8 g/dL Low 13.0-17.0 [facility] Comment on above: Performed By: #### D ADAM, HEPXA #### [facility] [employer] [address] [place] [phone] Instructional Manager: Reggie Chavez MD Immature granulocytes/100 WBC (Bld) 1 % High 0 [facility] Comment on above: Performed By: #### D ADAM, HEPXA #### [facility] [employer] [address] [place] [phone] Instructional Manager: Reggie Chavez MD Lymphocytes (Bld) [#/Vol] 1.66 10*3/uL Normal 1.10-3.70 [facility] Comment on above: Performed By: #### D ADAM, HEPXA #### [address] [address] Instructional Manager: Reggie Chavez MD Lymphocytes/100 WBC (Bld) 18 % Low 24-43 [facility] Comment on above: Performed By: #### D ADAM, HEPXA #### [address] [address] Instructional Manager: Reggie Chavez MD MCH (RBC) [Entitic mass] 33.0 pg Normal 25.2-33.5 [facility] Comment on above: Performed By: #### Cooper ADAM, HEPXA #### [address] [address] Instructional Manager: Reggie Chavez MD MCHC (RBC) [Mass/Vol] 33.2 g/dL Normal 28.4-34.8 [facility] Comment on above: Performed By: #### Cooper ADAM, HEPXA #### [address] [address] Instructional Manager: Reggie Chavez MD MCV (RBC) [Entitic vol] 99.5 fL Normal 82.6-102.9 [facility] Comment on above: Performed By: #### Cooper ADAM, HEPXA #### [address] [address] Instructional Manager: Reggie Chavez MD Monocytes (Bld) [#/Vol] 0.73 10*3/uL Normal 0.10-1.20 [facility] Comment on above: Performed By: #### D ADAM, HEPXA #### [address] [address] Instructional Manager: Reggie Chavez MD Monocytes/100 WBC (Bld) 8 % Normal 3-12 [facility] Comment on above: Performed By: #### D ADAM, HEPXA #### [address] [address] Instructional Manager: Reggie Chavez MD Neutrophil (Seg) 70 % High 36-65 [facility] Comment on above: Performed By: #### D ADAM, HEPXA #### [address] [address] Instructional Manager: Reggie Chavez MD NRBC Automated 0.0 per 100 WBC Normal 0.0 [facility] Comment on above: Performed By: #### D ADAM, HEPXA #### [address] [address] Instructional Manager: Reggie Chavez MD Platelet mean volume (Bld) [Entitic vol] 11.1 fL Normal 8.1-13.5 [facility] Comment on above: Performed By: #### D ADAM, HEPXA #### [address] [address] Instructional Manager: Reggie Chavez MD Platelets (Bld) [#/Vol] 192 10*3/uL Normal 138-453 [facility] Comment on above: Performed By: #### Cooper ADAM, HEPXA #### [address] [address] Instructional Manager: Reggie Chavez MD RBC (Bld) [#/Vol] 3.88 10*6/uL Low 4.21-5.77 [facility] Comment on above: Performed By: #### D ADAM, HEPXA #### [address] [address] Instructional Manager: Reggie Chavez MD WBC (Bld) [#/Vol] 9.0 10*3/uL Normal 3.5-11.3 [facility] Comment on above: Performed By: #### D ADAM, HEPXA #### [facility] [employer] [address] [place] [address] Instructional Manager: Reggie Chavez MD K (Potassium)/rfx MGon 04-20 Potassium [Moles/Vol] 4.5 mmol/L Normal 3.7-5.3 [facility] Comment on above: Performed By: #### R EJEC #### [facility] [employer] [address] [place] [phone] Instructional Manager: Reggie Chavez MD Basic Metab w/rfx MGon 04-19 Anion gap [Moles/Vol] 13 mmol/L Normal 9-17 [facility] Comment on above: Performed By: #### U JV, UAX #### [address] [address] Instructional Manager: Reggie Chavez MD Calcium [Mass/Vol] 9.5 mg/dL Normal 8.6-10.4 [facility] Comment on above: Performed By: #### U JV, UAX #### [address] [address] Instructional Manager: Reggie Chavez MD Chloride [Moles/Vol] 93 mmol/L Low 98-107 [facility] Comment on above: Performed By: #### U JV, UAX #### [facility] [employer] [address] [place] [address] Instructional Manager: Reggie Chavez MD CO2 [Moles/Vol] 29 mmol/L Normal 20-31 [facility] Comment on above: Performed By: #### U JV, UAX #### [facility] [employer] [address] [place] [address] Instructional Manager: Reggie Chavez MD Creatinine [Mass/Vol] 0.51 mg/dL Low 0.70-1.20 [facility] Comment on above: Performed By: #### U JV, UAX #### [facility] [employer] [address] [place] [phone] Instructional Manager: Reggie Cahvez MD GFR/1.73 sq M.predicted among non-blacks MDRD (S/P/Bld) [Vol rate/Area] mL/min/{1.73_m2} Normal >60 [facility] Comment on above: Result Comment: These results [...] Performed By: #### U JV, UAX #### [address] [address] Instructional Manager: Reggie Chavez MD Glucose [Mass/Vol] 225 mg/dL High 70-99 [facility] Comment on above: Performed By: #### U JV, UAX #### [address] [address] Instructional Manager: Reggie Chavez MD Potassium [Moles/Vol] 4.4 mmol/L Normal 3.7-5.3 [facility] Comment on above: Performed By: #### U JV, UAX #### [facility] [employer] [address] [place] [phone] Instructional Manager: Reggie Chavez MD Sodium [Moles/Vol] 135 mmol/L Normal 135-144 [facility] Comment on above: Performed By: #### U JV, UAX #### [facility] [employer] [address] [place] [address] Instructional Manager: Reggie Chavez MD Urea nitrogen [Mass/Vol] 17 mg/dL Normal 8-23 [facility] Comment on above: Performed By: #### U JV, UAX #### [facility] [employer] [facility] [place] [address] Instructional Manager: Reggie Chavez MD FL ESOPHAGRAMon 04-19-2023 FL ESOPHAGRAM EXAMINATION: DOUBLE CONTRAST ESOPHAGRAM 04/19/2023 1:52 pm TECHNIQUE: Double contrast esophagram was performed with barium and air contrast. FLUOROSCOPY DOSE AND TYPE: Radiation Exposure Index: DAP [id number], COMPARISON: None HISTORY: ORDERING SYSTEM PROVIDED HISTORY: [...] Charly Johnson MD 04/19/23 Final result Normal [facility] XR CHEST PORTABLEon 04-19-20 XR CHEST PORTABLE [...] Venancio Barcenas MD 04/19/23 Final result Normal [facility] Troponinon 04-18-2023 Troponin, High Sens 147 ng/L Critically high 0-22 [facility] Comment on above: Result Comment: High Sensitivity Troponin values cannot be compared with other Troponin methodologies. Previous Alert Value Reported Performed By: #### R EJEC #### [address] [address] Instructional Manager: Reggie Chavez MD UA w/Reflex Cultureon 2022 Bilirubin, SemiQt,Ur Negative Normal NEG [facility] Comment on above: Performed By: #### U JV, UAX #### [address] [address] Instructional Manager: Reggie Chavez MD Blood, Urine Negative Normal NEG [facility] Comment on above: Performed By: #### U JV, UAX #### [facility] [employer] [address] [place] [address] Instructional Manager: Reggie Chavez MD Clarity (U) Clear Normal CLEAR [facility] Comment on above: Performed By: #### U JV, UAX #### [facility] [employer] [address] [place] [address] Instructional Manager: Reggie Chavez MD Color (U) Yellow Normal YEL [facility] Comment on above: Performed By: #### U JV, UAX #### [facility] [employer] [address] [place] [phone] Instructional Manager: Reggie Chavez MD Comment Microscopic exam not performed based on chemical results unless requested in Normal [facility] Comment on above: Result Comment: orig inal order. Performed By: #### U JV, UAX #### [facility] [employer] [address] [place] [phone] Instructional Manager: Reggie Chavez MD Glucose Ql (U) Negative Normal NEG [facility] Comment on above: Performed By: #### U JV, UAX #### [facility] [employer] [address] [place] [phone] Instructional Manager: Reggie Chavez MD Ketones Ql (U) Negative Normal NEG [facility] Comment on above: Performed By: #### U JV, UAX #### [address] [address] Instructional Manager: Reggie Chavez MD Leukocyte esterase Test strip Ql (U) Negative Normal NEG [facility] Comment on above: Performed By: #### U JV, UAX #### [address] [address] Instructional Manager: Reggie Chavez MD Nitrite,Ur Negative Normal NEG [facility] Comment on above: Performed By: #### U JV, UAX #### [address] [address] Instructional Manager: Reggie Chavez MD PH,Ur 7.0 Normal 5.0-8.0 [facility] Comment on above: Performed By: #### U JV, UAX #### [address] [address] Instructional Manager: Reggie Chavez MD Protein Ql (U) Negative Normal NEG [facility] Comment on above: Performed By: #### U JV, UAX #### [address] [address] Instructional Manager: Reggie Chavez MD Spec. [place],Ur 1.010 Normal 1.005-1.030 [facility] Comment on above: Performed By: #### U JV, UAX #### [address] [address] Instructional Manager: Reggie Chavez MD Urobilinogen,Ur Normal Normal NORM [facility] Comment on above: Performed By: #### U JV, UAX #### [address] [address] Instructional Manager: Reggie Chavez MD Urinalysis,Microon 3 Casts 0 TO 2 HYALINE Normal 0-8 [facility] Comment on above: Result Comment: Refe rence range defined for non-centrifuged specimen. Performed By: #### U JV, UAX #### [address] [address] Instructional Manager: Reggie Chavez MD Epithelial cells LM Ql (Urine sed) None Normal 0-5 [facility] Comment on above: Performed By: #### U JV, UAX #### [address] [address] Instructional Manager: Reggie Chavez MD Urine RBC's 0 TO 2 Normal 0-4 [facility] Comment on above: Result Comment: Refe rence range defined for non-centrifuged specimen. Performed By: #### U JV, UAX #### [address] [address] Instructional Manager: Reggie Chavez MD Urine WBC's None Normal 0-5 [facility] Comment on above: Performed By: #### U JV, UAX #### [address] [address] Instructional Manager: Reggie Chavez MD Basic Metabolic Profon 04-17 Anion gap [Moles/Vol] 12 mmol/L Normal 9-17 [facility] Comment on above: Performed By: #### Cooper MEDINA HEPXA #### [address] [address] Instructional Manager: Reggie Chavez MD Calcium [Mass/Vol] 9.2 mg/dL Normal 8.6-10.4 [facility] Comment on above: Performed By: #### Cooper MEDINA HEPXA #### [address] [address] Instructional Manager: Reggie Chavez MD Chloride [Moles/Vol] 97 mmol/L Low 98-107 [facility] Comment on above: Performed By: #### Cooper MEDINA HEPXA #### [facility] [place] [address] Instructional Manager: Reggie Chavez MD CO2 [Moles/Vol] 29 mmol/L Normal 20-31 [facility] Comment on above: Performed By: #### Cooper MEDINA, HEPXA #### [facility] [address] [place] [address] Instructional Manager: Reggie Chavez MD Creatinine [Mass/Vol] 0.47 mg/dL Low 0.70-1.20 [facility] Comment on above: Performed By: #### Cooper MEDINA HEPXA #### [facility] [employer] [address] [place] [address] Instructional Manager: Reggie Chavez MD GFR/1.73 sq M.predicted among non-blacks MDRD (S/P/Bld) [Vol rate/Area] mL/min/{1.73_m2} Normal >60 [facility] Comment on above: Result Comment: These results [...] Performed By: #### Cooper MEDINA HEPXA #### [facility] [employer] [address] [place] [address] Instructional Manager: Reggie Chavez MD Glucose [Mass/Vol] 136 mg/dL High 70-99 [facility] Comment on above: Performed By: #### Cooper MEDINA HEPXA #### [facility] [address] [place] [address] Instructional Manager: Reggie Chavez MD Potassium [Moles/Vol] 4.8 mmol/L Normal 3.7-5.3 [facility] Comment on above: Performed By: #### D ADAM, HEPXA #### [facility] [address] [place] [address] Instructional Manager: Reggie Chavez MD Sodium [Moles/Vol] 138 mmol/L Normal 135-144 [facility] Comment on above: Performed By: #### D ADAM, HEPXA #### [address] [address] Instructional Manager: Reggie Chavez MD Urea nitrogen [Mass/Vol] 16 mg/dL Normal 8-23 [facility] Comment on above: Performed By: #### D ADAM, HEPXA #### [facility] [employer] [address] [place] [address] Instructional Manager: Reggie Chavez MD CBC with Diffon 04-17-2023 Abs. Basophil 0.04 k/uL Normal 0.00-0.20 [facility] Comment on above: Performed By: #### D ADAM, HEPXA #### [address] [address] Instructional Manager: Reggie Chavez MD Abs.Imm.Granulocyte 0.10 k/uL Normal 0.00-0.30 [facility] Comment on above: Performed By: #### Cooper ADAM, HEPXA #### [address] [address] Instructional Manager: Reggie Chavez MD Abs.Neutrophil (Seg) 4.20 k/uL Normal 1.50-8.10 [facility] Comment on above: Performed By: #### D ADAM, HEPXA #### [facility] [employer] [address] [place] [address] Instructional Manager: Reggie Chavez MD Basophils/100 WBC (Bld) 1 % Normal 0-2 [facility] Comment on above: Performed By: #### D ADAM, HEPXA #### [facility] [employer] [address] [place] [address] Instructional Manager: Reggie Chavez MD Eosinophils (Bld) [#/Vol] 0.12 10*3/uL Normal 0.00-0.44 [facility] Comment on above: Performed By: #### D ADAM, HEPXA #### [facility] [address] [place] [address] Instructional Manager: Reggie Chavez MD Eosinophils/100 WBC (Bld) 2 % Normal 1-4 [facility] Comment on above: Performed By: #### D ADAM, HEPXA #### [address] [address] Instructional Manager: Reggie Chavez MD Erythrocyte distribution width (RBC) [Ratio] 13.2 % Normal 11.8-14.4 [facility] Comment on above: Performed By: #### D ADAM, HEPXA #### [address] [address] Instructional Manager: Reggie Chavez MD Hematocrit (Bld) [Volume fraction] 42.0 % Normal 40.7-50.3 [facility] Comment on above: Performed By: #### D ADAM, HEPXA #### [facility] [employer] [address] [place] [address] Instructional Manager: Reggie Chavez MD Hemoglobin (Bld) [Mass/Vol] 12.9 g/dL Low 13.0-17.0 [facility] Comment on above: Performed By: #### D ADAM, HEPXA #### [address] [address] Instructional Manager: Reggie Chavez MD Immature granulocytes/100 WBC (Bld) 2 % High 0 [facility] Comment on above: Performed By: #### D ADAM, HEPXA #### [facility] [employer] [address] [place] [address] Instructional Manager: Reggie Chavez MD Lymphocytes (Bld) [#/Vol] 1.46 10*3/uL Normal 1.10-3.70 [facility] Comment on above: Performed By: #### Cooper ADAM, HEPXA #### [facility] [place] [address] Instructional Manager: Reggie Chavez MD Lymphocytes/100 WBC (Bld) 23 % Low 24-43 [facility] Comment on above: Performed By: #### D ADAM, HEPXA #### [facility] [address] [place] [address] Instructional Manager: Reggie Chavez MD MCH (RBC) [Entitic mass] 33.2 pg Normal 25.2-33.5 [facility] Comment on above: Performed By: #### Cooper ADAM, HEPXA #### [address] [address] Instructional Manager: Reggie Chavez MD MCHC (RBC) [Mass/Vol] 30.7 g/dL Normal 28.4-34.8 [facility] Comment on above: Performed By: #### Cooper ADAM, HEPXA #### [address] [address] Instructional Manager: Reggie Chavez MD MCV (RBC) [Entitic vol] 108.0 fL High 82.6-102.9 [facility] Comment on above: Performed By: #### Cooper ADAM, HEPXA #### [facility] [address] [place] [address] Instructional Manager: Reggie Chavez MD Monocytes (Bld) [#/Vol] 0.43 10*3/uL Normal 0.10-1.20 [facility] Comment on above: Performed By: #### Cooper ADAM, HEPXA #### [address] [address] Instructional Manager: Reggie Chavez MD Monocytes/100 WBC (Bld) 7 % Normal 3-12 [facility] Comment on above: Performed By: #### Cooper ADAM, HEPXA #### [address] [address] Instructional Manager: Reggie Chavez MD Neutrophil (Seg) 65 % Normal 36-65 [facility] Comment on above: Performed By: #### D ADAM, HEPXA #### [address] [address] Instructional Manager: Reggie Chavez MD NRBC Automated 0.0 per 100 WBC Normal 0.0 [facility] Comment on above: Performed By: #### Cooper ADAM, HEPXA #### [address] [address] Instructional Manager: Reggie Chavez MD Platelet mean volume (Bld) [Entitic vol] 10.4 fL Normal 8.1-13.5 [facility] Comment on above: Performed By: #### Cooper ADAM, HEPXA #### [address] [address] Instructional Manager: Reggie Chavez MD Platelets (Bld) [#/Vol] 185 10*3/uL Normal 138-453 [facility] Comment on above: Performed By: #### Copoer ADAM, HEPXA #### [address] [address] Instructional Manager: Reggie Chavez MD RBC (Bld) [#/Vol] 3.89 10*6/uL Low 4.21-5.77 [facility] Comment on above: Performed By: #### D ADAM, HEPXA #### [address] [address] Instructional Manager: Reggie Chavez MD RBC morphology finding Nom (Bld) MACROCYTOSIS PRESENT Normal [facility] Comment on above: Performed By: #### D ADAM HEPXA #### [facility] [address] [place] [address] Instructional Manager: Reggie Chavez MD WBC (Bld) [#/Vol] 6.4 10*3/uL Normal 3.5-11.3 [facility] Comment on above: Performed By: #### Cooper MEDINA HEPXA #### [facility] [address] [place] [address] Instructional Manager: Reggie Chavez MD K (Potassium)on 04-17-2023 Potassium [Moles/Vol] 4.8 mmol/L Normal 3.7-5.3 [facility] Comment on above: Performed By: #### R EJEC #### [address] [address] Instructional Manager: Reggie Chavez MD Magnesiumon 04-17-2023 Magnesium [Mass/Vol] 1.6 mg/dL Normal 1.6-2.6 [facility] Comment on above: Performed By: #### R EJEC #### [facility] [address] [place] [address] Instructional Manager: Reggie Chavez MD Magnesium [Mass/Vol] 1.7 mg/dL Normal 1.6-2.6 [facility] Comment on above: Performed By: #### Cooper MEDINA HEPXA #### [facility] [address] [place] [address] Instructional Manager: Reggie Chavez MD Thyroid Stim. Horm.on 2022 Thyroid Stim. Horm. 1.83 uIU/mL Normal 0.30-5.00 [facility] Comment on above: Performed By: #### R EJEC #### [facility] [address] [place] [address] Instructional Manager: Reggie Chavez MD Troponinon 07-03-2023 Troponin, High Sens 146 ng/L Critically high 0-22 [facility] Comment on above: Result Comment: High Sensitivity Troponin values cannot be compared with other Troponin methodologies. Performed By: #### R EJEC #### [address] [address] Instructional Manager: Reggie Chavez MD Basic Metabolic Profon 04-15 Anion gap [Moles/Vol] 8 mmol/L Low 9-17 [facility] Comment on above: Performed By: #### B C #### [address] [address] Instructional Manager: Reggie Chavez MD Calcium [Mass/Vol] 9.3 mg/dL Normal 8.6-10.4 [facility] Comment on above: Performed By: #### B C #### [address] [address] Instructional Manager: Reggie Chavez MD Chloride [Moles/Vol] 95 mmol/L Low 98-107 [facility] Comment on above: Performed By: #### B C #### [address] [address] Instructional Manager: Reggie Chavez MD CO2 [Moles/Vol] 34 mmol/L High 20-31 [facility] Comment on above: Performed By: #### B C #### [address] [address] Instructional Manager: Reggie Chavez MD Creatinine [Mass/Vol] 0.40 mg/dL Low 0.70-1.20 [facility] Comment on above: Performed By: #### B C #### [address] [address] Instructional Manager: Reggie Chavez MD GFR/1.73 sq M.predicted among non-blacks MDRD (S/P/Bld) [Vol rate/Area] mL/min/{1.73_m2} Normal >60 [facility] Comment on above: Result Comment: These results [...] secretion. Performed By: #### B C #### [address] [address] Instructional Manager: Reggie Chavez MD Glucose [Mass/Vol] 141 mg/dL High 70-99 [facility] Comment on above: Performed By: #### B C #### [address] [address] Instructional Manager: Reggie Chavez MD Potassium [Moles/Vol] 4.7 mmol/L Normal 3.7-5.3 [facility] Comment on above: Performed By: #### B C #### [address] [address] Instructional Manager: Reggie Chavez MD Sodium [Moles/Vol] 137 mmol/L Normal 135-144 [facility] Comment on above: Performed By: #### B C #### [address] [address] Instructional Manager: Reggie Chavez MD Urea nitrogen [Mass/Vol] 18 mg/dL Normal 8-23 [facility] Comment on above: Performed By: #### B C #### [address] [address] Instructional Manager: Reggie Chavez MD CBC with Diffon 04-15-2023 Abs. Basophil <0.03 Normal 0.00-0.20 [facility] Comment on above: Performed By: #### B C #### [address] [place] [address] Instructional Manager: Reggie Chavez MD Abs.Imm.Granulocyte 0.08 k/uL Normal 0.00-0.30 [facility] Comment on above: Performed By: #### B C #### [address] [address] Instructional Manager: Reggie Chavez MD Abs.Neutrophil (Seg) 4.31 k/uL Normal 1.50-8.10 [facility] Comment on above: Performed By: #### B C #### [address] [address] Instructional Manager: Reggie Chavez MD Basophils/100 WBC (Bld) 0 % Normal 0-2 [facility] Comment on above: Performed By: #### B C #### [place] [address] Instructional Manager: Reggie Chavez MD Eosinophils (Bld) [#/Vol] 0.09 10*3/uL Normal 0.00-0.44 [facility] Comment on above: Performed By: #### B C #### [address] [address] Instructional Manager: Reggie Chavez MD Eosinophils/100 WBC (Bld) 1 % Normal 1-4 [facility] Comment on above: Performed By: #### B C #### [address] [address] Instructional Manager: Reggie Chavez MD Erythrocyte distribution width (RBC) [Ratio] 13.0 % Normal 11.8-14.4 [facility] Comment on above: Performed By: #### B C #### [address] [address] Instructional Manager: Reggie Chavez MD Hematocrit (Bld) [Volume fraction] 41.5 % Normal 40.7-50.3 [facility] Comment on above: Performed By: #### B C #### [address] [address] Instructional Manager: Reggie Chavez MD Hemoglobin (Bld) [Mass/Vol] 13.1 g/dL Normal 13.0-17.0 [facility] Comment on above: Performed By: #### B C #### [address] [address] Instructional Manager: Reggie Chavez MD Immature granulocytes/100 WBC (Bld) 1 % High 0 [facility] Comment on above: Performed By: #### B C #### [address] [address] Instructional Manager: Reggie Chavez MD Lymphocytes (Bld) [#/Vol] 1.41 10*3/uL Normal 1.10-3.70 [facility] Comment on above: Performed By: #### B C #### [address] [address] Instructional Manager: Reggie Chavez MD Lymphocytes/100 WBC (Bld) 22 % Low 24-43 [facility] Comment on above: Performed By: #### B C #### [address] [address] Instructional Manager: Reggie Chavez MD MCH (RBC) [Entitic mass] 33.2 pg Normal 25.2-33.5 [facility] Comment on above: Performed By: #### B C #### [place] [address] Instructional Manager: Reggie Chavez MD MCHC (RBC) [Mass/Vol] 31.6 g/dL Normal 28.4-34.8 [facility] Comment on above: Performed By: #### B C #### [address] [address] Instructional Manager: Reggie Chavez MD MCV (RBC) [Entitic vol] 105.1 fL High 82.6-102.9 [facility] Comment on above: Performed By: #### B C #### [address] [address] Instructional Manager: Reggie Chavez MD Monocytes (Bld) [#/Vol] 0.41 10*3/uL Normal 0.10-1.20 [facility] Comment on above: Performed By: #### B C #### [place] [address] Instructional Manager: Reggie Chavez MD Monocytes/100 WBC (Bld) 7 % Normal 3-12 [facility] Comment on above: Performed By: #### B C #### [place] [address] Instructional Manager: Reggie Chavez MD Neutrophil (Seg) 69 % High 36-65 [facility] Comment on above: Performed By: #### B C #### [address] [address] Instructional Manager: Reggie Chavez MD NRBC Automated 0.0 per 100 WBC Normal 0.0 [facility] Comment on above: Performed By: #### B C #### [place] [address] Instructional Manager: Reggie Chavez MD Platelet mean volume (Bld) [Entitic vol] 10.3 fL Normal 8.1-13.5 [facility] Comment on above: Performed By: #### B C #### [place] [address] Instructional Manager: Reggie Chavez MD Platelets (Bld) [#/Vol] 191 10*3/uL Normal 138-453 [facility] Comment on above: Performed By: #### B C #### [address] [address] Instructional Manager: Reggie Chavez MD RBC (Bld) [#/Vol] 3.95 10*6/uL Low 4.21-5.77 [facility] Comment on above: Performed By: #### B C #### [address] [address] Instructional Manager: Reggie Chavez MD RBC morphology finding Nom (Bld) MACROCYTOSIS PRESENT Normal [facility] Comment on above: Performed By: #### B C #### [address] [address] Instructional Manager: Reggie Chavez MD WBC (Bld) [#/Vol] 6.3 10*3/uL Normal 3.5-11.3 [facility] Comment on above: Performed By: #### B C #### [address] [address] Instructional Manager: Reggie Chavez MD Magnesiumon 04-15-2023 Magnesium [Mass/Vol] 1.8 mg/dL Normal 1.6-2.6 [facility] Comment on above: Performed By: #### B C #### [address] [address] Instructional Manager: Reggie Chavez MD Cult,Bloodon 04-14-2023 Cult,Blood Specimen Description .BLOOD Special Requests RT FOREARM 10 ML Culture NO GROWTH 5 DAYS Report Status FINAL 04/14/2023 [facility] Comment on above: Performed By: #### R EJEC #### [address] [address] Instructional Manager: Reggie Chavez MD Cult,Blood Specimen Description .BLOOD Special Requests LEFT WRIST 10 ML Culture NO GROWTH 5 DAYS Report Status FINAL 04/14/2023 Normal [facility] Comment on above: Performed By: #### B C #### [address] [address] Instructional Manager: Reggie Chavez MD FL MODIFIED BARIUM SWALLOW W VIDEOon 04-14-2023 [place] MODIFIED BARIUM SWALLOW W VIDEO EXAMINATION: MODIFIED BARIUM SWALLOW WAS PERFORMED IN CONJUNCTION WITH [employer]ECH PATHOLOGY SERVICES TECHNIQUE: Under fluoroscopic evaluation cineradiography/videor adiography recordings were performed in conjunction with the speech-language pathologist ([employer]). Various liquid, solid and/or semi-solid barium preparations were used to assess swallowing function. FLUOROSCOPY DOSE AND TYPE: Radiation Exposure Index: DAP [id number], COMPARISON: None HISTORY: ORDERING SYSTEM PROVIDED HISTORY: [...] Charly Johnson MD 04/14/23 Final result Normal [facility] Basic Metabolic Profon 04-13 Anion gap [Moles/Vol] 9 mmol/L Normal 9-17 [facility] Comment on above: Performed By: #### V BG #### [address] [address] Instructional Manager: Reggie Chavez MD Calcium [Mass/Vol] 9.2 mg/dL Normal 8.6-10.4 [facility] Comment on above: Performed By: #### V BG #### [address] [address] Instructional Manager: Reggie Chavez MD Chloride [Moles/Vol] 95 mmol/L Low 98-107 [facility] Comment on above: Performed By: #### V BG #### [address] [address] Instructional Manager: Reggie Chavez MD CO2 [Moles/Vol] 30 mmol/L Normal 20-31 [facility] Comment on above: Performed By: #### V BG #### [facility] [address] [place] [address] Instructional Manager: Reggie Chavez MD Creatinine [Mass/Vol] 0.43 mg/dL Low 0.70-1.20 [facility] Comment on above: Performed By: #### V BG #### [address] [address] Instructional Manager: Reggie Chavez MD GFR/1.73 sq M.predicted among non-blacks MDRD (S/P/Bld) [Vol rate/Area] mL/min/{1.73_m2} Normal >60 [facility] Comment on above: Result Comment: These results [...] secretion. Performed By: #### V BG #### [address] [address] Instructional Manager: Reggie Chavez MD Glucose [Mass/Vol] 139 mg/dL High 70-99 [facility] Comment on above: Performed By: #### V BG #### [facility] [employer] [address] [place] [address] Instructional Manager: Reggie Chavez MD Potassium [Moles/Vol] 4.6 mmol/L Normal 3.7-5.3 [facility] Comment on above: Performed By: #### V BG #### [facility] [address] [place] [address] Instructional Manager: Reggie Chavez MD Sodium [Moles/Vol] 134 mmol/L Low 135-144 [facility] Comment on above: Performed By: #### V BG #### [place] [address] Instructional Manager: Reggie Chavez MD Urea nitrogen [Mass/Vol] 32 mg/dL High 8-23 [facility] Comment on above: Performed By: #### V BG #### [place] [address] Instructional Manager: Reggie Chavez MD CBC with Diffon 04-13-2023 Abs. Basophil 0.03 k/uL Normal 0.00-0.20 [facility] Comment on above: Performed By: #### V BG #### [place] [address] Instructional Manager: Reggie Chavez MD Abs.Imm.Granulocyte 0.07 k/uL Normal 0.00-0.30 [facility] Comment on above: Performed By: #### V BG #### [place] [address] Instructional Manager: Reggie Chavez MD Abs.Neutrophil (Seg) 5.52 k/uL Normal 1.50-8.10 [facility] Comment on above: Performed By: #### V BG #### [place] [address] Instructional Manager: Reggie Chavez MD Basophils/100 WBC (Bld) 0 % Normal 0-2 [facility] Comment on above: Performed By: #### V BG #### [place] [address] Instructional Manager: Reggie Chavez MD Eosinophils (Bld) [#/Vol] 0.12 10*3/uL Normal 0.00-0.44 [facility] Comment on above: Performed By: #### V BG #### [address] [address] Instructional Manager: Reggie Chavez MD Eosinophils/100 WBC (Bld) 2 % Normal 1-4 [facility] Comment on above: Performed By: #### V BG #### [address] [address] Instructional Manager: Reggie Chavez MD Erythrocyte distribution width (RBC) [Ratio] 13.2 % Normal 11.8-14.4 [facility] Comment on above: Performed By: #### V BG #### [address] [address] Instructional Manager: Reggie Chavez MD Hematocrit (Bld) [Volume fraction] 43.3 % Normal 40.7-50.3 [facility] Comment on above: Performed By: #### V BG #### [address] [address] Instructional Manager: Reggie Chavez MD Hemoglobin (Bld) [Mass/Vol] 13.5 g/dL Normal 13.0-17.0 [facility] Comment on above: Performed By: #### V BG #### [address] [address] Instructional Manager: Reggie Chavez MD Immature granulocytes/100 WBC (Bld) 1 % High 0 [facility] Comment on above: Performed By: #### V BG #### [address] [address] Instructional Manager: Reggie Chavez MD Lymphocytes (Bld) [#/Vol] 1.67 10*3/uL Normal 1.10-3.70 [facility] Comment on above: Performed By: #### V BG #### [address] [address] Instructional Manager: Reggie Chavez MD Lymphocytes/100 WBC (Bld) 21 % Low 24-43 [facility] Comment on above: Performed By: #### V BG #### [place] [address] Instructional Manager: Reggie Chavez MD MCH (RBC) [Entitic mass] 32.8 pg Normal 25.2-33.5 [facility] Comment on above: Performed By: #### V BG #### [place] [address] Instructional Manager: Reggie Chavez MD MCHC (RBC) [Mass/Vol] 31.2 g/dL Normal 28.4-34.8 [facility] Comment on above: Performed By: #### V BG #### [place] [address] Instructional Manager: Reggie Chavez MD MCV (RBC) [Entitic vol] 105.4 fL High 82.6-102.9 [facility] Comment on above: Performed By: #### V BG #### [place] [address] Instructional Manager: Reggie Chavez MD Monocytes (Bld) [#/Vol] 0.46 10*3/uL Normal 0.10-1.20 [facility] Comment on above: Performed By: #### V BG #### [place] [address] Instructional Manager: Reggie Chavez MD Monocytes/100 WBC (Bld) 6 % Normal 3-12 [facility] Comment on above: Performed By: #### V BG #### [place] [address] Instructional Manager: Reggie Chavez MD Neutrophil (Seg) 70 % High 36-65 [facility] Comment on above: Performed By: #### V BG #### [address] [address] Instructional Manager: Reggie Chavez MD NRBC Automated 0.0 per 100 WBC Normal 0.0 [facility] Comment on above: Performed By: #### V BG #### [address] [address] Instructional Manager: Reggie Chavez MD Platelet mean volume (Bld) [Entitic vol] 10.6 fL Normal 8.1-13.5 [facility] Comment on above: Performed By: #### V BG #### [address] [address] Instructional Manager: Reggie Chavez MD Platelets (Bld) [#/Vol] 189 10*3/uL Normal 138-453 [facility] Comment on above: Performed By: #### V BG #### [address] [address] Instructional Manager: Reggie Chavez MD RBC (Bld) [#/Vol] 4.11 10*6/uL Low 4.21-5.77 [facility] Comment on above: Performed By: #### V BG #### [address] [address] Instructional Manager: Reggie Chavez MD RBC morphology finding Nom (Bld) MACROCYTOSIS PRESENT Normal [facility] Comment on above: Performed By: #### V BG #### [address] [address] Instructional Manager: Reggie Chavez MD WBC (Bld) [#/Vol] 7.9 10*3/uL Normal 3.5-11.3 [facility] Comment on above: Performed By: #### V BG #### [address] [address] Instructional Manager: Reggie Chavez MD Magnesiumon 04-13-2023 Magnesium [Mass/Vol] 1.9 mg/dL Normal 1.6-2.6 [facility] Comment on above: Performed By: #### V BG #### [facility] [employer] [address] [place] [address] Instructional Manager: Reggie Chavez MD Basic Metabolic Profon 04-12 Anion gap [Moles/Vol] 9 mmol/L Normal 9-17 [facility] Comment on above: Performed By: #### U JV, UAX #### [facility] [employer] [address] [place] [address] Instructional Manager: Reggie Chavez MD Calcium [Mass/Vol] 9.5 mg/dL Normal 8.6-10.4 [facility] Comment on above: Performed By: #### U JV, UAX #### [facility] [employer] [address] [place] [address] Instructional Manager: Reggie Chavez MD Chloride [Moles/Vol] 93 mmol/L Low 98-107 [facility] Comment on above: Performed By: #### U JV, UAX #### [facility] [employer] [address] [place] [address] Instructional Manager: Reggie Chavez MD CO2 [Moles/Vol] 36 mmol/L High 20-31 [facility] Comment on above: Performed By: #### U JV, UAX #### [facility] [employer] [address] [place] [address] Instructional Manager: Reggie Chavez MD Creatinine [Mass/Vol] 0.61 mg/dL Low 0.70-1.20 [facility] Comment on above: Performed By: #### U JV, UAX #### [facility] [employer] [address] [place] [address] Instructional Manager: Reggie Chavez MD GFR/1.73 sq M.predicted among non-blacks MDRD (S/P/Bld) [Vol rate/Area] mL/min/{1.73_m2} Normal >60 [facility] Comment on above: Result Comment: These results [...] Performed By: #### U JV, UAX #### [facility] [employer] [address] [place] [address] Instructional Manager: Reggie Chavez MD Glucose [Mass/Vol] 132 mg/dL High 70-99 [facility] Comment on above: Performed By: #### U JV, UAX #### [address] [address] Instructional Manager: Reggie Chavez MD Potassium [Moles/Vol] 4.4 mmol/L Normal 3.7-5.3 [facility] Comment on above: Performed By: #### U JV, UAX #### [address] [address] Instructional Manager: Reggie Chavez MD Sodium [Moles/Vol] 138 mmol/L Normal 135-144 [facility] Comment on above: Performed By: #### U JV, UAX #### [facility] [employer] [address] [place] [address] Instructional Manager: Reggie Chavez MD Urea nitrogen [Mass/Vol] 31 mg/dL High 8-23 [facility] Comment on above: Performed By: #### U JV, UAX #### [address] [address] Instructional Manager: Reggie Chavez MD CBC with Diffon 04-12-2023 Abs. Basophil 0.03 k/uL Normal 0.00-0.20 [facility] Comment on above: Performed By: #### U JV, UAX #### [address] [address] Instructional Manager: Reggie Chavez MD Abs.Imm.Granulocyte 0.09 k/uL Normal 0.00-0.30 [facility] Comment on above: Performed By: #### U JV, UAX #### [place] [address] Instructional Manager: Reggie Chavez MD Abs.Neutrophil (Seg) 6.42 k/uL Normal 1.50-8.10 [facility] Comment on above: Performed By: #### U JV, UAX #### [place] [address] Instructional Manager: Reggie Chavez MD Basophils/100 WBC (Bld) 0 % Normal 0-2 [facility] Comment on above: Performed By: #### U JV, UAX #### [place] [address] Instructional Manager: Reggie Chavez MD Eosinophils (Bld) [#/Vol] 0.14 10*3/uL Normal 0.00-0.44 [facility] Comment on above: Performed By: #### U JV, UAX #### [place] [address] Instructional Manager: Reggie Chavez MD Eosinophils/100 WBC (Bld) 2 % Normal 1-4 [facility] Comment on above: Performed By: #### U JV, UAX #### [place] [address] Instructional Manager: Reggie Chavez MD Erythrocyte distribution width (RBC) [Ratio] 13.2 % Normal 11.8-14.4 [facility] Comment on above: Performed By: #### U JV, UAX #### [address] [address] Instructional Manager: Reggie Chavez MD Hematocrit (Bld) [Volume fraction] 44.7 % Normal 40.7-50.3 [facility] Comment on above: Performed By: #### U JV, UAX #### [address] [address] Instructional Manager: Reggie Chavez MD Hemoglobin (Bld) [Mass/Vol] 14.0 g/dL Normal 13.0-17.0 [facility] Comment on above: Performed By: #### U JV, UAX #### [address] [address] Instructional Manager: Reggie Chavez MD Immature granulocytes/100 WBC (Bld) 1 % High 0 [facility] Comment on above: Performed By: #### U JV, UAX #### [address] [address] Instructional Manager: Reggie Chavez MD Lymphocytes (Bld) [#/Vol] 1.49 10*3/uL Normal 1.10-3.70 [facility] Comment on above: Performed By: #### U VJ, UAX #### [address] [address] Instructional Manager: Reggie Chavez MD Lymphocytes/100 WBC (Bld) 17 % Low 24-43 [facility] Comment on above: Performed By: #### U JV, UAX #### [address] [address] Instructional Manager: Reggie Chavez MD MCH (RBC) [Entitic mass] 32.9 pg Normal 25.2-33.5 [facility] Comment on above: Performed By: #### U JV, UAX #### [address] [address] Instructional Manager: Reggie Chavez MD MCHC (RBC) [Mass/Vol] 31.3 g/dL Normal 28.4-34.8 [facility] Comment on above: Performed By: #### U JV, UAX #### [address] [address] Instructional Manager: Reggie Chavez MD MCV (RBC) [Entitic vol] 105.2 fL High 82.6-102.9 [facility] Comment on above: Performed By: #### U JV, UAX #### [address] [address] Instructional Manager: Reggie Chavez MD Monocytes (Bld) [#/Vol] 0.58 10*3/uL Normal 0.10-1.20 [facility] Comment on above: Performed By: #### U JV, UAX #### [address] [address] Instructional Manager: Reggie Chavez MD Monocytes/100 WBC (Bld) 7 % Normal 3-12 [facility] Comment on above: Performed By: #### U JV, UAX #### [address] [address] Instructional Manager: Reggie Chavez MD Neutrophil (Seg) 73 % High 36-65 [facility] Comment on above: Performed By: #### U JV, UAX #### [address] [address] Instructional Manager: Reggie Chavez MD NRBC Automated 0.0 per 100 WBC Normal 0.0 [facility] Comment on above: Performed By: #### U JV, UAX #### [address] [address] Instructional Manager: Reggie Chavez MD Platelet mean volume (Bld) [Entitic vol] 10.3 fL Normal 8.1-13.5 [facility] Comment on above: Performed By: #### U JV, UAX #### [address] [address] Instructional Manager: Reggie Chavez MD Platelets (Bld) [#/Vol] 186 10*3/uL Normal 138-453 [facility] Comment on above: Performed By: #### U JV, UAX #### [address] [address] Instructional Manager: Reggie Chavez MD RBC (Bld) [#/Vol] 4.25 10*6/uL Normal 4.21-5.77 [facility] Comment on above: Performed By: #### U JV, UAX #### [address] [address] Instructional Manager: Reggie Chavez MD RBC morphology finding Nom (Bld) MACROCYTOSIS PRESENT Normal [facility] Comment on above: Performed By: #### U JV, UAX #### [address] [address] Instructional Manager: Reggie Chavez MD WBC (Bld) [#/Vol] 8.8 10*3/uL Normal 3.5-11.3 [facility] Comment on above: Performed By: #### U JV, UAX #### [address] [address] Instructional Manager: Reggie Chavez MD Magnesiumon 04-12-2023 Magnesium [Mass/Vol] 2.1 mg/dL Normal 1.6-2.6 [facility] Comment on above: Performed By: #### U JV, UAX #### [facility] [address] [place] [address] Instructional Manager: Reggie Chavez MD Basic Metabolic Profon 04-11 Anion gap [Moles/Vol] 9 mmol/L Normal 9-17 [facility] Comment on above: Performed By: #### U JV, UAX #### [facility] [address] [place] [address] Instructional Manager: Reggie Chavez MD Calcium [Mass/Vol] 9.5 mg/dL Normal 8.6-10.4 [facility] Comment on above: Performed By: #### U JV, UAX #### [facility] [address] [place] [address] Instructional Manager: Reggie Chavez MD Chloride [Moles/Vol] 95 mmol/L Low 98-107 [facility] Comment on above: Performed By: #### U JV, UAX #### [facility] [address] [place] [address] Instructional Manager: Reggie Chavez MD CO2 [Moles/Vol] 34 mmol/L High 20-31 [facility] Comment on above: Performed By: #### U JV, UAX #### [facility] [address] [place] [address] Instructional Manager: Reggie Chavez MD Creatinine [Mass/Vol] 0.47 mg/dL Low 0.70-1.20 [facility] Comment on above: Performed By: #### U JV, UAX #### [address] [address] Instructional Manager: Reggie Chavez MD GFR/1.73 sq M.predicted among non-blacks MDRD (S/P/Bld) [Vol rate/Area] mL/min/{1.73_m2} Normal >60 [facility] Comment on above: Result Comment: These results [...] Performed By: #### U JV, UAX #### [address] [address] Instructional Manager: Reggie Chavez MD Glucose [Mass/Vol] 210 mg/dL High 70-99 [facility] Comment on above: Performed By: #### U JV, UAX #### [place] [address] Instructional Manager: Reggie Chavez MD Potassium [Moles/Vol] 4.1 mmol/L Normal 3.7-5.3 [facility] Comment on above: Performed By: #### U JV, UAX #### [place] [address] Instructional Manager: Reggie Chavez MD Sodium [Moles/Vol] 138 mmol/L Normal 135-144 [facility] Comment on above: Performed By: #### U JV, UAX #### [place] [address] Instructional Manager: Reggie Chavez MD Urea nitrogen [Mass/Vol] 23 mg/dL Normal 8-23 [facility] Comment on above: Performed By: #### U JV, UAX #### [place] [address] Instructional Manager: Reggie Chavez MD CBC with Diffon 04-11-2023 Abs. Basophil <0.03 Normal 0.00-0.20 [facility] Comment on above: Performed By: #### U JV, UAX #### [place] [address] Instructional Manager: Reggie Chavez MD Abs.Imm.Granulocyte 0.08 k/uL Normal 0.00-0.30 [facility] Comment on above: Performed By: #### U JV, UAX #### [address] [address] Instructional Manager: Reggie Chavez MD Abs.Neutrophil (Seg) 9.24 k/uL High 1.50-8.10 [facility] Comment on above: Performed By: #### U JV, UAX #### [address] [address] Instructional Manager: Reggie Chavez MD Basophils/100 WBC (Bld) 0 % Normal 0-2 [facility] Comment on above: Performed By: #### U JV, UAX #### [address] [address] Instructional Manager: Reggie Chavez MD Eosinophils (Bld) [#/Vol] 0.08 10*3/uL Normal 0.00-0.44 [facility] Comment on above: Performed By: #### U JV, UAX #### [address] [address] Instructional Manager: Reggie Chavez MD Eosinophils/100 WBC (Bld) 1 % Normal 1-4 [facility] Comment on above: Performed By: #### U JV, UAX #### [address] [address] Instructional Manager: Reggie Chavez MD Erythrocyte distribution width (RBC) [Ratio] 13.3 % Normal 11.8-14.4 [facility] Comment on above: Performed By: #### U JV, UAX #### [address] [address] Instructional Manager: Reggie Chavez MD Hematocrit (Bld) [Volume fraction] 43.7 % Normal 40.7-50.3 [facility] Comment on above: Performed By: #### U JV, UAX #### [address] [address] Instructional Manager: Reggie Chavez MD Hemoglobin (Bld) [Mass/Vol] 13.7 g/dL Normal 13.0-17.0 [facility] Comment on above: Performed By: #### U JV, UAX #### [address] [address] Instructional Manager: Reggie Chavez MD Immature granulocytes/100 WBC (Bld) 1 % High 0 [facility] Comment on above: Performed By: #### U JV, UAX #### [address] [address] Instructional Manager: Reggie Chavez MD Lymphocytes (Bld) [#/Vol] 1.17 10*3/uL Normal 1.10-3.70 [facility] Comment on above: Performed By: #### U JV, UAX #### [address] [address] Instructional Manager: Reggie Chavez MD Lymphocytes/100 WBC (Bld) 11 % Low 24-43 [facility] Comment on above: Performed By: #### U JV, UAX #### [address] [address] Instructional Manager: Reggie Chavez MD MCH (RBC) [Entitic mass] 32.5 pg Normal 25.2-33.5 [facility] Comment on above: Performed By: #### U JV, UAX #### [address] [address] Instructional Manager: Reggie Chavez MD MCHC (RBC) [Mass/Vol] 31.4 g/dL Normal 28.4-34.8 [facility] Comment on above: Performed By: #### U JV, UAX #### [address] [address] Instructional Manager: Reggie Chavez MD MCV (RBC) [Entitic vol] 103.8 fL High 82.6-102.9 [facility] Comment on above: Performed By: #### U JV, UAX #### [address] [address] Instructional Manager: Reggie Chavez MD Monocytes (Bld) [#/Vol] 0.58 10*3/uL Normal 0.10-1.20 [facility] Comment on above: Performed By: #### U JV, UAX #### [address] [address] Instructional Manager: Reggie Chavez MD Monocytes/100 WBC (Bld) 5 % Normal 3-12 [facility] Comment on above: Performed By: #### U JV, UAX #### [address] [address] Instructional Manager: Reggie Chavez MD Neutrophil (Seg) 82 % High 36-65 [facility] Comment on above: Performed By: #### U JV, UAX #### [address] [address] Instructional Manager: Reggie Chavez MD NRBC Automated 0.0 per 100 WBC Normal 0.0 [facility] Comment on above: Performed By: #### U JV, UAX #### [address] [address] Instructional Manager: Reggie Chavez MD Platelet mean volume (Bld) [Entitic vol] 10.4 fL Normal 8.1-13.5 [facility] Comment on above: Performed By: #### U JV, UAX #### [address] [address] Instructional Manager: Reggie Chavez MD Platelets (Bld) [#/Vol] 217 10*3/uL Normal 138-453 [facility] Comment on above: Performed By: #### U JV, UAX #### [facility] [address] [place] [address] Instructional Manager: Reggie Chavez MD RBC (Bld) [#/Vol] 4.21 10*6/uL Normal 4.21-5.77 [facility] Comment on above: Performed By: #### U JV, UAX #### [facility] [address] [place] [address] Instructional Manager: Reggie Chavez MD RBC morphology finding Nom (Bld) MACROCYTOSIS PRESENT Normal [facility] Comment on above: Performed By: #### U JV, UAX #### [facility] [address] [place] [address] Instructional Manager: Reggie Chavez MD WBC (Bld) [#/Vol] 11.2 10*3/uL Normal 3.5-11.3 [facility] Comment on above: Performed By: #### U JV, UAX #### [facility] [employer] [address] [place] [address] Instructional Manager: Reggie Chavez MD Magnesiumon 04-11-2023 Magnesium [Mass/Vol] 1.7 mg/dL Normal 1.6-2.6 [facility] Comment on above: Performed By: #### U JV, UAX #### [address] [address] Instructional Manager: Reggie Chavez MD CBCon 04-10-2023 Erythrocyte distribution width (RBC) [Ratio] 13.2 % Normal 11.8-14.4 [facility] Comment on above: Performed By: #### V BG #### [address] [address] Instructional Manager: Reggie Chavez MD Hematocrit (Bld) [Volume fraction] 44.6 % Normal 40.7-50.3 [facility] Comment on above: Performed By: #### V BG #### [address] [address] Instructional Manager: Reggie Chavez MD Hemoglobin (Bld) [Mass/Vol] 14.1 g/dL Normal 13.0-17.0 [facility] Comment on above: Performed By: #### V BG #### [address] [address] Instructional Manager: Reggie Chavez MD MCH (RBC) [Entitic mass] 32.9 pg Normal 25.2-33.5 [facility] Comment on above: Performed By: #### V BG #### [address] [address] Instructional Manager: Reggie Chavez MD MCHC (RBC) [Mass/Vol] 31.6 g/dL Normal 28.4-34.8 [facility] Comment on above: Performed By: #### V BG #### [address] [address] Instructional Manager: Reggie Chavez MD MCV (RBC) [Entitic vol] 104.0 fL High 82.6-102.9 [facility] Comment on above: Performed By: #### V BG #### [address] [address] Instructional Manager: Reggie Chavez MD NRBC Automated 0.0 per 100 WBC Normal 0.0 [facility] Comment on above: Performed By: #### V BG #### [address] [address] Instructional Manager: Reggie Chavez MD Platelet mean volume (Bld) [Entitic vol] 10.1 fL Normal 8.1-13.5 [facility] Comment on above: Performed By: #### V BG #### [address] [address] Instructional Manager: Reggie Chavez MD Platelets (Bld) [#/Vol] 198 10*3/uL Normal 138-453 [facility] Comment on above: Performed By: #### V BG #### [address] [address] Instructional Manager: Reggie Chavez MD RBC (Bld) [#/Vol] 4.29 10*6/uL Normal 4.21-5.77 [facility] Comment on above: Performed By: #### V BG #### [address] [address] Instructional Manager: Reggie Chavez MD WBC (Bld) [#/Vol] 8.1 10*3/uL Normal 3.5-11.3 [facility] Comment on above: Performed By: #### V BG #### [address] [address] Instructional Manager: Reggie Chavez MD Comp Metabolic Pr/rfx MGon 0 - Albumin [Mass/Vol] 3.3 g/dL Low 3.5-5.2 [facility] Comment on above: Performed By: #### V BG #### [address] [address] Instructional Manager: Reggie Chavez MD Albumin/Glob Ratio 1.1 Normal 1.0-2.5 [facility] Comment on above: Performed By: #### V BG #### [address] [address] Instructional Manager: Reggie Chavez MD Alkaline Phos 103 U/L Normal 40-129 [facility] Comment on above: Performed By: #### V BG #### [address] [address] Instructional Manager: Reggie Chavez MD ALT [Catalytic activity/Vol] 22 U/L Normal 5-41 [facility] Comment on above: Performed By: #### V BG #### [facility] [address] [place] [address] Instructional Manager: Reggie Chavez MD Anion gap [Moles/Vol] 6 mmol/L Low 9-17 [facility] Comment on above: Performed By: #### V BG #### [address] [address] Instructional Manager: Reggie Chavez MD AST [Catalytic activity/Vol] 18 U/L Normal <40 [facility] Comment on above: Performed By: #### V BG #### [address] [address] Instructional Manager: Reggie Chavez MD Bilirubin [Mass/Vol] 0.5 mg/dL Normal 0.3-1.2 [facility] Comment on above: Performed By: #### V BG #### [address] [address] Instructional Manager: Reggie Chavez MD Calcium [Mass/Vol] 9.3 mg/dL Normal 8.6-10.4 [facility] Comment on above: Performed By: #### V BG #### [address] [address] Instructional Manager: Reggie Chavez MD Chloride [Moles/Vol] 94 mmol/L Low 98-107 [facility] Comment on above: Performed By: #### V BG #### [address] [address] Instructional Manager: Reggie Chavez MD CO2 [Moles/Vol] 40 mmol/L High 20-31 [facility] Comment on above: Performed By: #### V BG #### [address] [address] Instructional Manager: Reggie Chavez MD Creatinine [Mass/Vol] 0.62 mg/dL Low 0.70-1.20 [facility] Comment on above: Performed By: #### V BG #### [place] [address] Instructional Manager: Reggie Chavez MD GFR/1.73 sq M.predicted among non-blacks MDRD (S/P/Bld) [Vol rate/Area] mL/min/{1.73_m2} Normal >60 [facility] Comment on above: Result Comment: These results [...] secretion. Performed By: #### V BG #### [place] [address] Instructional Manager: Reggie Chavez MD Glucose [Mass/Vol] 135 mg/dL High 70-99 [facility] Comment on above: Performed By: #### V BG #### [address] [address] Instructional Manager: Reggie Chavez MD Potassium [Moles/Vol] 4.2 mmol/L Normal 3.7-5.3 [facility] Comment on above: Performed By: #### V BG #### [facility] [address] [place] [address] Instructional Manager: Reggie Chavez MD Protein [Mass/Vol] 6.2 g/dL Low 6.4-8.3 [facility] Comment on above: Performed By: #### V BG #### [address] [address] Instructional Manager: Reggie Chavez MD Sodium [Moles/Vol] 140 mmol/L Normal 135-144 [facility] Comment on above: Performed By: #### V BG #### [address] [address] Instructional Manager: Reggie Chavez MD Urea nitrogen [Mass/Vol] 27 mg/dL High 8- [facility] Comment on above: Performed By: #### V BG #### [address] [address] Instructional Manager: Reggie Chavez MD Magnesiumon 04-10-2023 Magnesium [Mass/Vol] 1.6 mg/dL Normal 1.6-2.6 [facility] Comment on above: Performed By: #### V BG #### [address] [address] Instructional Manager: Reggie Chavez MD Troponinon 04-10-2023 Troponin, High Sens 133 ng/L Critically high 0-22 [facility] Comment on above: Result Comment: High Sensitivity Troponin values cannot be compared with other Troponin methodologies. Previous Alert Value Reported Performed By: #### D ADAM, HEPXA #### [address] [address] Instructional Manager: Reggie Chavez MD Venous Blood Gaseson 023 Body Temp. 37.0 Normal [facility] Comment on above: Performed By: #### V BG #### [address] [address] Instructional Manager: Reggie Chavez MD Carboxy Hgb 0.0 % Normal 0-5 [facility] Comment on above: Result Comment: Reference Range: Non-Smokers 0-2% Average Smoker 2-4% Heavy Smoker <10% Performed By: #### V BG #### [address] [address] Instructional Manager: Reggie Chavez MD FIO2 INFORMATION NOT PROVIDED Normal [facility] Comment on above: Performed By: #### V BG #### [facility] [employer] [address] [place] [address] Instructional Manager: Reggie Chavez MD HCO3 (Bld) [Moles/Vol] 38.8 mmol/L High 24-30 [facility] Comment on above: Performed By: #### V BG #### [address] [address] Instructional Manager: Reggie Chavez MD Oxygen saturation in Blood 62.6 % Normal 60.0-85.0 [facility] Comment on above: Performed By: #### V BG #### [facility] [employer] [address] [place] [address] Instructional Manager: Reggie Chavez MD pCO2 71.1 mm Hg High 39-55 [facility] Comment on above: Performed By: #### V BG #### [address] [address] Instructional Manager: Reggie Chavez MD pH (Bld) 7.355 [pH] Normal 7.320-7.420 [facility] Comment on above: Performed By: #### V BG #### [address] [address] Instructional Manager: Reggie Chavez MD pO2 33.4 mm Hg Normal 30-50 [facility] Comment on above: Performed By: #### V BG #### [address] [address] Instructional Manager: Reggie Chavez MD Positive Base Excess 10.2 mmol/L High 0.0-2.0 [facility] Comment on above: Performed By: #### V BG #### [facility] [employer] [address] [place] [address] Instructional Manager: Reggie Chavez MD Vitamin D 25 OHon 04-10-2023 Vitamin D 25 OH 36.7 ng/mL Normal >29.9 [facility] Comment on above: Result Comment: Reference Range: Vitamin D status Range Deficiency <20 ng/mL Mild Deficiency 20-30 ng/mL Sufficiency 30-100 ng/mL Toxicity >100 ng/mL Performed By: #### V BG #### [address] [address] Instructional Manager: Reggie Chavez MD Brain Natri. Peptideon 04-09 Natriuretic peptide B (Bld) [Mass/Vol] 76 pg/mL Normal <300 [facility] Comment on above: Result Comment: An age-independent cutoff point of 300 pg/ml has a 98% negative predictive value excluding acute heart failure. Performed By: #### D ADAM, HEPXA #### [address] [address] Instructional Manager: Reggie Chavez MD CBC with Diffon 04-09-2023 Abs. Basophil 0.03 k/uL Normal 0.00-0.20 [facility] Comment on above: Performed By: #### H EPXA #### [address] [address] Instructional Manager: Reggie Chavez MD Abs.Imm.Granulocyte 0.10 k/uL Normal 0.00-0.30 [facility] Comment on above: Performed By: #### H EPXA #### [address] [address] Instructional Manager: Reggie Chavez MD Abs.Neutrophil (Seg) 7.68 k/uL Normal 1.50-8.10 [facility] Comment on above: Performed By: #### H EPXA #### [address] [address] Instructional Manager: Reggie Chavez MD Basophils/100 WBC (Bld) 0 % Normal 0-2 [facility] Comment on above: Performed By: #### H EPXA #### [address] [address] Instructional Manager: Reggie Chavez MD Eosinophils (Bld) [#/Vol] 0.10 10*3/uL Normal 0.00-0.44 [facility] Comment on above: Performed By: #### H EPXA #### [address] [address] Instructional Manager: Reggie Chavez MD Eosinophils/100 WBC (Bld) 1 % Normal 1-4 [facility] Comment on above: Performed By: #### H EPXA #### [address] [address] Instructional Manager: Reggie Chavez MD Erythrocyte distribution width (RBC) [Ratio] 13.2 % Normal 11.8-14.4 [facility] Comment on above: Performed By: #### H EPXA #### [place] [address] Instructional Manager: Reggie Chavez MD Hematocrit (Bld) [Volume fraction] 48.3 % Normal 40.7-50.3 [facility] Comment on above: Performed By: #### H EPXA #### [address] [address] Instructional Manager: Reggie Chavez MD Hemoglobin (Bld) [Mass/Vol] 15.6 g/dL Normal 13.0-17.0 [facility] Comment on above: Performed By: #### H EPXA #### [address] [address] Instructional Manager: Reggie Chavez MD Immature granulocytes/100 WBC (Bld) 1 % High 0 [facility] Comment on above: Performed By: #### H EPXA #### [address] [address] Instructional Manager: Reggie Chavez MD Lymphocytes (Bld) [#/Vol] 1.95 10*3/uL Normal 1.10-3.70 [facility] Comment on above: Performed By: #### H EPXA #### [address] [address] Instructional Manager: Reggie Chavez MD Lymphocytes/100 WBC (Bld) 19 % Low 24-43 [facility] Comment on above: Performed By: #### H EPXA #### [place] [address] Instructional Manager: Reggie Chavez MD MCH (RBC) [Entitic mass] 33.0 pg Normal 25.2-33.5 [facility] Comment on above: Performed By: #### H EPXA #### [place] [address] Instructional Manager: Reggie Chavez MD MCHC (RBC) [Mass/Vol] 32.3 g/dL Normal 28.4-34.8 [facility] Comment on above: Performed By: #### H EPXA #### [place] [address] Instructional Manager: Reggie Chavez MD MCV (RBC) [Entitic vol] 102.1 fL Normal 82.6-102.9 [facility] Comment on above: Performed By: #### H EPXA #### [place] [address] Instructional Manager: Reggie Chavez MD Monocytes (Bld) [#/Vol] 0.61 10*3/uL Normal 0.10-1.20 [facility] Comment on above: Performed By: #### H EPXA #### [place] [address] Instructional Manager: Reggie Chavez MD Monocytes/100 WBC (Bld) 6 % Normal 3-12 [facility] Comment on above: Performed By: #### H EPXA #### [address] [address] Instructional Manager: Reggie Chavez MD Neutrophil (Seg) 73 % High 36-65 [facility] Comment on above: Performed By: #### H EPXA #### [address] [address] Instructional Manager: Reggie Chavez MD NRBC Automated 0.0 per 100 WBC Normal 0.0 [facility] Comment on above: Performed By: #### H EPXA #### [address] [address] Instructional Manager: Reggie Chavez MD Platelet mean volume (Bld) [Entitic vol] 10.6 fL Normal 8.1-13.5 [facility] Comment on above: Performed By: #### H EPXA #### [address] [address] Instructional Manager: Reggie Chavez MD Platelets (Bld) [#/Vol] 214 10*3/uL Normal 138-453 [facility] Comment on above: Performed By: #### H EPXA #### [address] [address] Instructional Manager: Reggie Chavez MD RBC (Bld) [#/Vol] 4.73 10*6/uL Normal 4.21-5.77 [facility] Comment on above: Performed By: #### H EPXA #### [address] [address] Instructional Manager: Reggie Chavez MD WBC (Bld) [#/Vol] 10.5 10*3/uL Normal 3.5-11.3 [facility] Comment on above: Performed By: #### H EPXA #### [address] [address] Instructional Manager: Reggie Chavez MD Comp Metabolic Profon 2022 Albumin [Mass/Vol] 3.8 g/dL Normal 3.5-5.2 [facility] Comment on above: Performed By: #### Cooper ADAM, HEPXA #### [address] [address] Instructional Manager: Reggie Chavez MD Albumin/Glob Ratio 1.2 Normal 1.0-2.5 [facility] Comment on above: Performed By: #### Cooper ADAM, HEPXA #### [facility] [address] [place] [address] Instructional Manager: Reggie Chavez MD Alkaline Phos 117 U/L Normal 40-129 [facility] Comment on above: Performed By: #### Cooper KWANE, HEPXA #### [address] [address] Instructional Manager: Reggie Chavez MD ALT [Catalytic activity/Vol] 27 U/L Normal 5-41 [facility] Comment on above: Performed By: #### Cooper MEDINA, HEPXA #### [address] [address] Instructional Manager: Reggie Chavez MD Anion gap [Moles/Vol] 11 mmol/L Normal 9-17 [facility] Comment on above: Performed By: #### Cooper ADAM, HEPXA #### [facility] [address] [place] [address] Instructional Manager: Reggie Chavez MD AST [Catalytic activity/Vol] 22 U/L Normal <40 [facility] Comment on above: Performed By: #### D ADAM, HEPXA #### [address] [address] Instructional Manager: Reggie Chavez MD Bilirubin [Mass/Vol] 0.6 mg/dL Normal 0.3-1.2 [facility] Comment on above: Performed By: #### D ADAM, HEPXA #### [facility] [address] [place] [address] Instructional Manager: Reggie Chavez MD Calcium [Mass/Vol] 9.7 mg/dL Normal 8.6-10.4 [facility] Comment on above: Performed By: #### D ADAM, HEPXA #### [facility] [address] [place] [address] Instructional Manager: Reggie Chavez MD Chloride [Moles/Vol] 92 mmol/L Low 98-107 [facility] Comment on above: Performed By: #### D ADAM, HEPXA #### [facility] [address] [place] [address] Instructional Manager: Reggie Chavez MD CO2 [Moles/Vol] 35 mmol/L High 20-31 [facility] Comment on above: Performed By: #### D ADAM, HEPXA #### [facility] [address] [place] [address] Instructional Manager: Reggie Chavez MD Creatinine [Mass/Vol] 0.55 mg/dL Low 0.70-1.20 [facility] Comment on above: Performed By: #### D ADAM, HEPXA #### [address] [address] Instructional Manager: Reggie Chavez MD GFR/1.73 sq M.predicted among non-blacks MDRD (S/P/Bld) [Vol rate/Area] mL/min/{1.73_m2} Normal >60 [facility] Comment on above: Result Comment: These results [...] renal tubular secretion. Performed By: #### Cooper MEDINA, HEPXA #### [facility] [employer] [address] [place] [address] Instructional Manager: Reggie Chavez MD Glucose [Mass/Vol] 141 mg/dL High 70-99 [facility] Comment on above: Performed By: #### D ADAM, HEPXA #### [facility] [address] [place] [address] Instructional Manager: Reggie Chavez MD Potassium [Moles/Vol] 4.1 mmol/L Normal 3.7-5.3 [facility] Comment on above: Performed By: #### Cooper MEDINA, HEPXA #### [facility] [employer] [address] [place] [address] Instructional Manager: Reggie Chavez MD Protein [Mass/Vol] 7.0 g/dL Normal 6.4-8.3 [facility] Comment on above: Performed By: #### Cooper MEDINA, HEPXA #### [facility] [employer] [address] [place] [address] Instructional Manager: Reggie Chavez MD Sodium [Moles/Vol] 138 mmol/L Normal 135-144 [facility] Comment on above: Performed By: #### Cooper MEDINA, HEPXA #### [facility] [employer] [address] [place] [address] Instructional Manager: Reggie Chavez MD Urea nitrogen [Mass/Vol] 33 mg/dL High 8-23 [facility] Comment on above: Performed By: #### Cooper MEDINA, HEPXA #### [facility] [employer] [address] [place] [address] Instructional Manager: Reggie Chavez MD Lactate, Sepsison 04-09-2023 Lactic Acid,Sep Wbld 2.1 mmol/L High 0.5-1.9 [facility] Comment on above: Performed By: #### V BG #### [address] [address] Instructional Manager: Reggie Chavez MD Lactic Acid,Sep Wbld 2.5 mmol/L High 0.5-1.9 [facility] Comment on above: Performed By: #### H EPXA #### [address] [address] Instructional Manager: Reggie Chavez MD Magnesiumon 04-09-2023 Magnesium [Mass/Vol] 1.5 mg/dL Low 1.6-2.6 [facility] Comment on above: Performed By: #### U JV, UAX #### [address] [address] Instructional Manager: Reggie Chavez MD Specimen Rejectionon 037 Reason for rejection Unable to perform testing: Specimen contaminated. Normal [facility] Comment on above: Performed By: #### R EJEC #### [address] [address] Instructional Manager: Reggie Chavez MD Source of sample .BLOOD Normal [facility] Comment on above: Performed By: #### R EJEC #### [address] [address] Instructional Manager: Reggie Chavez MD Test ordered BNP, CP, TROPI Normal [facility] Comment on above: Performed By: #### R EJEC #### [address] [address] Instructional Manager: Reggie Chavez MD Reason for rejection Unable to perform testing: Specimen hemolyzed. [facility] Comment on above: Performed By: #### H EPXA #### [address] [address] Instructional Manager: Reggie Chavez MD Source of sample .BLOOD Normal [facility] Comment on above: Performed By: #### H EPXA #### [facility] [employer] [address] [place] [address] Instructional Manager: Reggie Chavez MD Test ordered BNP,CP,TROPI Normal [facility] Comment on above: Performed By: #### H EPXA #### [address] [address] Instructional Manager: Reggie Chavez MD Troponinon 8 Troponin, High Sens 148 ng/L Critically high 0-22 [facility] Comment on above: Result Comment: High Sensitivity Troponin values cannot be compared with other Troponin methodologies. Previous Alert Value Reported Performed By: #### U JV, UAX #### [address] [address] Instructional Manager: Reggie Chavez MD Troponin, High Sens 155 ng/L Critically high 0-22 [facility] Comment on above: Result Comment: High Sensitivity Troponin values cannot be compared with other Troponin methodologies. Performed By: #### D ADAM, HEPXA #### [address] [address] Instructional Manager: Reggie Chavez MD UA w/Reflex Cultureon 5 Bilirubin, SemiQt,Ur Negative Normal NEG [facility] Comment on above: Performed By: #### U JV, UAX #### [facility] [employer] [address] [place] [address] Instructional Manager: Reggie Chavez MD Blood, Urine Negative Normal NEG [facility] Comment on above: Performed By: #### U JV, UAX #### [facility] [employer] [address] [place] [address] Instructional Manager: Reggie Chavez MD Clarity (U) Clear Normal CLEAR [facility] Comment on above: Performed By: #### U JV, UAX #### [facility] [address] [place] [address] Instructional Manager: Reggie Chavez MD Color (U) Yellow Normal YEL [facility] Comment on above: Performed By: #### U JV, UAX #### [facility] [address] [place] [address] Instructional Manager: Reggie Chavez MD Comment Microscopic exam not performed based on chemical results unless requested in Normal [facility] Comment on above: Result Comment: orig inal order. Performed By: #### U JV, UAX #### [facility] [address] [place] [address] Instructional Manager: Reggie Chavez MD Glucose Ql (U) Negative Normal NEG [facility] Comment on above: Performed By: #### U JV, UAX #### [address] [address] Instructional Manager: Reggie Chavez MD Ketones Ql (U) Negative Normal NEG [facility] Comment on above: Performed By: #### U JV, UAX #### [address] [address] Instructional Manager: Reggie Chavez MD Leukocyte esterase Test strip Ql (U) Negative Normal NEG [facility] Comment on above: Performed By: #### U JV, UAX #### [address] [address] Instructional Manager: Reggie Chavez MD Nitrite,Ur Negative Normal NEG [facility] Comment on above: Performed By: #### U JV, UAX #### [address] [address] Instructional Manager: Reggie Chavez MD PH,Ur 5.5 Normal 5.0-8.0 [facility] Comment on above: Performed By: #### U JV, UAX #### [facility] [address] [place] [address] Instructional Manager: Reggie Chavez MD Protein Ql (U) Negative Normal NEG [facility] Comment on above: Performed By: #### U JV, UAX #### [facility] [address] [place] [address] Instructional Manager: Reggie Chavez MD Spec. [place],Ur 1.014 Normal 1.005-1.030 [facility] Comment on above: Performed By: #### U JV, UAX #### [facility] [address] [place] [address] Instructional Manager: Reggie Chavez MD Urobilinogen,Ur Normal Normal NORM [facility] Comment on above: Performed By: #### U JV, UAX #### [address] [address] Instructional Manager: Reggie Chavez MD XR CHEST (2 VW)on [...] Fred Mcgovern MD 04/09/23 Final result Normal [facility] Basic Metab w/rfx MGon 04-08 Anion gap [Moles/Vol] 11 mmol/L Normal 9-17 [facility] Comment on above: Performed By: #### H EPXA #### [address] [address] Instructional Manager: Reggie Chavez MD Calcium [Mass/Vol] 9.2 mg/dL Normal 8.6-10.4 [facility] Comment on above: Performed By: #### H EPXA #### [facility] [address] [place] [address] Instructional Manager: Reggie Chavez MD Chloride [Moles/Vol] 97 mmol/L Low 98-107 [facility] Comment on above: Performed By: #### H EPXA #### [facility] [address] [place] [address] Instructional Manager: Reggie Chavez MD CO2 [Moles/Vol] 30 mmol/L Normal 20-31 [facility] Comment on above: Performed By: #### H EPXA #### [address] [address] Instructional Manager: Reggie Chavez MD Creatinine [Mass/Vol] 0.58 mg/dL Low 0.70-1.20 [facility] Comment on above: Performed By: #### H EPXA #### [address] [address] Instructional Manager: Reggie Chavez MD GFR/1.73 sq M.predicted among non-blacks MDRD (S/P/Bld) [Vol rate/Area] mL/min/{1.73_m2} Normal >60 [facility] Comment on above: Result Comment: These results [...] secretion. Performed By: #### H EPXA #### [address] [address] Instructional Manager: Reggie Chavez MD Glucose [Mass/Vol] 165 mg/dL High 70-99 [facility] Comment on above: Performed By: #### H EPXA #### [facility] [address] [place] [address] Instructional Manager: Reggie Chavez MD Potassium [Moles/Vol] 4.3 mmol/L Normal 3.7-5.3 [facility] Comment on above: Performed By: #### H EPXA #### [address] [address] Instructional Manager: Reggie Chavez MD Sodium [Moles/Vol] 138 mmol/L Normal 135-144 [facility] Comment on above: Performed By: #### H EPXA #### [address] [address] Instructional Manager: Reggie Chavez MD Urea nitrogen [Mass/Vol] 30 mg/dL High - [facility] Comment on above: Performed By: #### H EPXA #### [address] [address] Instructional Manager: Reggie Chavez MD Hemoglobin A1Con 04-08-2023 Glucose [Mass/Vol] 171 mg/dL Normal [facility] Comment on above: Result Comment: The ADA and AACC recommend providing the estimated average glucose result to permit better patient understanding of their HBA1c result. Performed By: #### H EPXA #### [address] [address] Instructional Manager: Reggie Chavez MD HbA1c (Bld) [Mass fraction] 7.6 % High 4.0-6.0 [facility] Comment on above: Performed By: #### H EPXA #### [facility] [address] [place] [address] Instructional Manager: Reggie Chavez MD CBCon 04-07-2023 Erythrocyte distribution width (RBC) [Ratio] 13.2 % Normal 11.8-14.4 [facility] Comment on above: Performed By: #### H EPXA #### [address] [address] Instructional Manager: Reggie Chavez MD Hematocrit (Bld) [Volume fraction] 47.5 % Normal 40.7-50.3 [facility] Comment on above: Performed By: #### H EPXA #### [address] [address] Instructional Manager: Reggie Chavez MD Hemoglobin (Bld) [Mass/Vol] 14.4 g/dL Normal 13.0-17.0 [facility] Comment on above: Performed By: #### H EPXA #### [address] [address] Instructional Manager: Reggie Chavez MD MCH (RBC) [Entitic mass] 33.1 pg Normal 25.2-33.5 [facility] Comment on above: Performed By: #### H EPXA #### [address] [address] Instructional Manager: Reggie Chavez MD MCHC (RBC) [Mass/Vol] 30.3 g/dL Normal 28.4-34.8 [facility] Comment on above: Performed By: #### H EPXA #### [address] [address] Instructional Manager: Reggie Chavez MD MCV (RBC) [Entitic vol] 109.2 fL High 82.6-102.9 [facility] Comment on above: Performed By: #### H EPXA #### [address] [address] Instructional Manager: Reggie Chavez MD NRBC Automated 0.0 per 100 WBC Normal 0.0 [facility] Comment on above: Performed By: #### H EPXA #### [address] [address] Instructional Manager: Reggie Chavez MD Platelet mean volume (Bld) [Entitic vol] 10.0 fL Normal 8.1-13.5 [facility] Comment on above: Performed By: #### H EPXA #### [address] [address] Instructional Manager: Reggie Chavez MD Platelets (Bld) [#/Vol] 202 10*3/uL Normal 138-453 [facility] Comment on above: Performed By: #### H EPXA #### [address] [address] Instructional Manager: Reggie Chavez MD RBC (Bld) [#/Vol] 4.35 10*6/uL Normal 4.21-5.77 [facility] Comment on above: Performed By: #### H EPXA #### [address] [address] Instructional Manager: Reggie Chavez MD WBC (Bld) [#/Vol] 8.5 10*3/uL Normal 3.5-11.3 [facility] Comment on above: Performed By: #### H EPXA #### [address] [address] Instructional Manager: Reggie Chavez MD Creatine Kinaseon 04-07-2023 CK [Catalytic activity/Vol] 69 U/L Normal 39-308 [facility] Comment on above: Performed By: #### H EPXA #### [address] [address] Instructional Manager: Reggie Chavez MD D-Dimer Teston 04-07-2023 D-Dimer Test 0.27 ug/mL FEU Normal 0.00-0.57 [facility] Comment on above: Result Comment: When combined [...] Performed By: #### D ADAM, HEPXA #### [facility] [address] [place] [phone] Instructional Manager: Reggie Chavez MD Hemoglobin A1Con 04-07-2023 Glucose [Mass/Vol] 180 mg/dL Normal [facility] Comment on above: Result Comment: The ADA and AACC recommend providing the estimated average glucose result to permit better patient understanding of their HBA1c result. Performed By: #### R EJEC #### [facility] [address] [place] [address] [phone] Instructional Manager: Reggie Chavez MD HbA1c (Bld) [Mass fraction] 7.9 % High 4.0-6.0 [facility] Comment on above: Performed By: #### R EJEC #### [employer] [facility] [address] [place] [address] Instructional Manager: Reggie Chavez MD Heparin Anti-Xaon 04-07-2023 Heparin Anti-Xa <0.10 Normal [facility] Comment on above: Performed By: #### D ADAM, HEPXA #### [address] [address] Instructional Manager: Reggie Chavez MD Heparin Anti-Xa 0.60 IU/L Normal [facility] Comment on above: Performed By: #### U JV, UAX #### [address] [address] Instructional Manager: Reggie Chavez MD Heparin Anti-Xa 0.29 IU/L Normal [facility] Comment on above: Performed By: #### H EPXA #### [address] [address] Instructional Manager: Reggie Chavez MD CBCon 04-06-2023 Erythrocyte distribution width (RBC) [Ratio] 13.3 % Normal 11.8-14.4 [facility] Comment on above: Performed By: #### V BG #### [address] [address] Instructional Manager: Reggie Chavez MD Hematocrit (Bld) [Volume fraction] 44.8 % Normal 40.7-50.3 [facility] Comment on above: Performed By: #### V BG #### [address] [address] Instructional Manager: Reggie Chavez MD Hemoglobin (Bld) [Mass/Vol] 14.2 g/dL Normal 13.0-17.0 [facility] Comment on above: Performed By: #### V BG #### [address] [address] Instructional Manager: Reggie Chavez MD MCH (RBC) [Entitic mass] 32.5 pg Normal 25.2-33.5 [facility] Comment on above: Performed By: #### V BG #### [address] [address] Instructional Manager: Reggie hCavez MD MCHC (RBC) [Mass/Vol] 31.7 g/dL Normal 28.4-34.8 [facility] Comment on above: Performed By: #### V BG #### [address] [address] Instructional Manager: Reggie Chavez MD MCV (RBC) [Entitic vol] 102.5 fL Normal 82.6-102.9 [facility] Comment on above: Performed By: #### V BG #### [address] [address] Instructional Manager: Reggie Chavez MD NRBC Automated 0.0 per 100 WBC Normal 0.0 [facility] Comment on above: Performed By: #### V BG #### [address] [address] Instructional Manager: Reggie Chavez MD Platelet mean volume (Bld) [Entitic vol] 10.3 fL Normal 8.1-13.5 [facility] Comment on above: Performed By: #### V BG #### [address] [address] Instructional Manager: Reggie Chavez MD Platelets (Bld) [#/Vol] 188 10*3/uL Normal 138-453 [facility] Comment on above: Performed By: #### V BG #### [address] [address] Instructional Manager: Reggie Chavez MD RBC (Bld) [#/Vol] 4.37 10*6/uL Normal 4.21-5.77 [facility] Comment on above: Performed By: #### V BG #### [address] [address] Instructional Manager: Reggie Chavez MD WBC (Bld) [#/Vol] 8.1 10*3/uL Normal 3.5-11.3 [facility] Comment on above: Performed By: #### V BG #### [address] [address] Instructional Manager: Reggie Chavez MD Erythrocyte distribution width (RBC) [Ratio] 13.2 % Normal 11.8-14.4 [facility] Comment on above: Performed By: #### R EJEC #### [address] [address] Instructional Manager: Reggie Chavez MD Hematocrit (Bld) [Volume fraction] 47.4 % Normal 40.7-50.3 [facility] Comment on above: Performed By: #### R EJEC #### [address] [address] Instructional Manager: Reggie Chavez MD Hemoglobin (Bld) [Mass/Vol] 15.0 g/dL Normal 13.0-17.0 [facility] Comment on above: Performed By: #### R EJEC #### [address] [address] Instructional Manager: Reggie Chavez MD MCH (RBC) [Entitic mass] 32.7 pg Normal 25.2-33.5 [facility] Comment on above: Performed By: #### R EJEC #### [address] [address] Instructional Manager: Reggie Chavez MD MCHC (RBC) [Mass/Vol] 31.6 g/dL Normal 28.4-34.8 [facility] Comment on above: Performed By: #### R EJEC #### [address] [address] Instructional Manager: Reggie Chavez MD MCV (RBC) [Entitic vol] 103.3 fL High 82.6-102.9 [facility] Comment on above: Performed By: #### R EJEC #### [address] [address] Instructional Manager: Reggie Chavez MD NRBC Automated 0.0 per 100 WBC Normal 0.0 [facility] Comment on above: Performed By: #### R EJEC #### [address] [address] Instructional Manager: Reggie Chavez MD Platelet mean volume (Bld) [Entitic vol] 10.4 fL Normal 8.1-13.5 [facility] Comment on above: Performed By: #### R EJEC #### [address] [address] Instructional Manager: Reggie Chavez MD Platelets (Bld) [#/Vol] 211 10*3/uL Normal 138-453 [facility] Comment on above: Performed By: #### R EJEC #### [address] [address] Instructional Manager: Reggie Chavez MD RBC (Bld) [#/Vol] 4.59 10*6/uL Normal 4.21-5.77 [facility] Comment on above: Performed By: #### R EJEC #### [address] [address] Instructional Manager: Reggie Chavez MD WBC (Bld) [#/Vol] 8.7 10*3/uL Normal 3.5-11.3 [facility] Comment on above: Performed By: #### R EJEC #### [address] [address] Instructional Manager: Reggie Chavez MD Comp Metabolic Pr/rfx MGon 0 04-06-2023 Albumin [Mass/Vol] 3.7 g/dL Normal 3.5-5.2 [facility] Comment on above: Performed By: #### C MPX #### [address] [address] Instructional Manager: Reggie Chavez MD Albumin/Glob Ratio 1.2 Normal 1.0-2.5 [facility] Comment on above: Performed By: #### C MPX #### [address] [address] Instructional Manager: Reggie Chavez MD Alkaline Phos 107 U/L Normal 40-129 [facility] Comment on above: Performed By: #### C MPX #### [address] [address] Instructional Manager: Reggie Chavez MD ALT [Catalytic activity/Vol] 22 U/L Normal 5-41 [facility] Comment on above: Performed By: #### C MPX #### [address] [address] Instructional Manager: Reggie Chavez MD Bilirubin [Mass/Vol] 0.5 mg/dL Normal 0.3-1.2 [facility] Comment on above: Performed By: #### C MPX #### [address] [address] Instructional Manager: Reggie Chavez MD Protein [Mass/Vol] 6.8 g/dL Normal 6.4-8.3 [facility] Comment on above: Performed By: #### C MPX #### [address] [address] Instructional Manager: Reggie Chavez MD Anion gap [Moles/Vol] 12 mmol/L Normal 9-17 [facility] Comment on above: Performed By: #### C MPX #### [address] [address] Instructional Manager: Reggie Chavez MD AST [Catalytic activity/Vol] 24 U/L Normal <40 [facility] Comment on above: Performed By: #### C MPX #### [address] [address] Instructional Manager: Reggie Chavez MD Calcium [Mass/Vol] 8.9 mg/dL Normal 8.6-10.4 [facility] Comment on above: Performed By: #### C MPX #### [address] [address] Instructional Manager: Reggie Chavez MD Chloride [Moles/Vol] 98 mmol/L Normal 98-107 [facility] Comment on above: Performed By: #### C MPX #### [address] [address] Instructional Manager: Reggie Chavez MD CO2 [Moles/Vol] 30 mmol/L Normal 20-31 [facility] Comment on above: Performed By: #### C MPX #### [address] [address] Instructional Manager: Reggie Chavez MD Creatinine [Mass/Vol] 0.34 mg/dL Low 0.70-1.20 [facility] Comment on above: Performed By: #### C MPX #### [address] [address] Instructional Manager: Reggie Chavez MD GFR/1.73 sq M.predicted among non-blacks MDRD (S/P/Bld) [Vol rate/Area] mL/min/{1.73_m2} Normal >60 [facility] Comment on above: Result Comment: These results [...] secretion. Performed By: #### C MPX #### [address] [address] Instructional Manager: Reggie Chavez MD Glucose [Mass/Vol] 215 mg/dL High 70-99 [facility] Comment on above: Performed By: #### C MPX #### [address] [address] Instructional Manager: Reggie Chavez MD Potassium [Moles/Vol] 4.0 mmol/L Normal 3.7-5.3 [facility] Comment on above: Result Comment: SPEC IMEN SLIGHTLY HEMOLYZED, RESULTS MAY BE ADVERSELY AFFECTED. Performed By: #### C MPX #### [address] [address] Instructional Manager: Reggie Chavez MD Sodium [Moles/Vol] 140 mmol/L Normal 135-144 [facility] Comment on above: Performed By: #### C MPX #### [address] [address] Instructional Manager: Reggie Chavez MD Urea nitrogen [Mass/Vol] 18 mg/dL Normal 8-23 [facility] Comment on above: Performed By: #### C MPX #### [address] [address] Instructional Manager: Reggie Chavez MD Heparin Anti-Xaon 04-06-2023 Heparin Anti-Xa 0.36 IU/L Normal [facility] Comment on above: Performed By: #### D ADAM, HEPXA #### [address] [address] Instructional Manager: Reggie Chavez MD Heparin Anti-Xa 0.46 IU/L Normal [facility] Comment on above: Performed By: #### U JV, UAX #### [address] [place] [address] Instructional Manager: Reggie Chavez MD Lactic Acidon 04-06-2023 Lactic Acid,Whole Bl 1.0 mmol/L Normal 0.7-2.1 [facility] Comment on above: Performed By: #### H EPXA #### [facility] [employer] [facility] [place] [address] Instructional Manager: Reggie Chavez MD Phosphorus, Inorg.on 023 Phosphorus, Inorg. 3.2 mg/dL Normal 2.5-4.5 [facility] Comment on above: Performed By: #### H EPXA #### [facility] [employer] [facility] [place] [address] Instructional Manager: Reggie Chavez MD Procalcitoninon 04-06-2023 Procalcitonin 0.06 ng/mL Normal <0.09 [facility] Comment on above: Result Comment: Suspected Sepsis: [...] entered into the Change in Procalcitonin Calculator ([email or web address]) to determine the patient's Mortality Risk Prognosis In healthy neonates, plasma Procalcitonin (PCT) concentrations increase gradually after , reaching peak values at about 24 hours of age then decrease to normal values below 0.5 ng/mL by 48-72 hours of age. Performed By: #### R EJEC #### [facility] [employer] [address] [place] [address] Instructional Manager: Reggie Chavez MD Resp Viral Panelon 3 Adenovirus Not detected Normal [facility] Comment on above: Performed By: #### U JV, UAX #### [facility] [address] [place] [address] Instructional Manager: MD Percy Anderson.parapertussis Not detected Normal [facility] Comment on above: Performed By: #### U JV, UAX #### [facility] [address] [place] [address] Instructional Manager: Reggie Chavez MD Bordetella pertussis Not detected Normal [facility] Comment on above: Performed By: #### U JV, UAX #### [facility] [address] [place] [address] Instructional Manager: Reggie Chavez MD Chlamyd.pneumoniae Not detected Normal [facility] Comment on above: Performed By: #### U JV, UAX #### [facility] [address] [place] [address] Instructional Manager: Reggie Chavez MD Coronavirus 229E Not detected Normal [facility] Comment on above: Performed By: #### U JV, UAX #### [facility] [address] [place] [address] Instructional Manager: Reggie Chavez MD Coronavirus HKU1 Not detected Normal [facility] Comment on above: Performed By: #### U JV, UAX #### [facility] [address] [place] [address] Instructional Manager: Reggie Chavez MD Coronavirus NL63 Not detected [facility] Comment on above: Performed By: #### U JV, UAX #### [facility] [address] [place] [address] Instructional Manager: Reggie Chavez MD Coronavirus OC43 Not detected Normal [facility] Comment on above: Performed By: #### U JV, UAX #### [facility] [address] [place] [address] Instructional Manager: Reggie Chavez MD Human Metapneumo Not detected Normal [facility] Comment on above: Performed By: #### U JV, UAX #### [facility] [address] [place] [address] Instructional Manager: Reggie Chavez MD Influenza A Not detected [facility] Comment on above: Performed By: #### U JV, UAX #### [facility] [address] [place] [address] Instructional Manager: Reggie Chavez MD Influenza B Not detected Normal [facility] Comment on above: Performed By: #### U JV, UAX #### [facility] [employer] [address] [place] [address] Instructional Manager: Reggie Chavez MD Mycoplas.pneumoniae Not detected Normal [facility] Comment on above: Result Comment: Perf ormed by multiplexed nucleic acid assay. Performed By: #### U JV, UAX #### [facility] [address] [place] [address] Instructional Manager: Reggie Chavez MD Parainfluenza 1 Not detected Normal [facility] Comment on above: Performed By: #### U JV, UAX #### [facility] [address] [place] [address] Instructional Manager: Reggie Chavez MD Parainfluenza 2 Not detected Normal [facility] Comment on above: Performed By: #### U JV, UAX #### [facility] [address] [place] [address] Instructional Manager: Reggie Chavez MD Parainfluenza 3 Not detected Normal [facility] Comment on above: Performed By: #### U JV, UAX #### [facility] [address] [place] [address] Instructional Manager: Reggie Chavez MD Parainfluenza 4 Not detected Normal [facility] Comment on above: Performed By: #### U JV, UAX #### [address] [address] Instructional Manager: Reggie Chavez MD Resp Syncytial Virus Not detected Normal [facility] Comment on above: Performed By: #### U JV, UAX #### [address] [address] Instructional Manager: Reggie Chavez MD Rhino/Enterovirus Detected Abnormal [facility] Comment on above: Performed By: #### U JV, UAX #### [address] [address] Instructional Manager: Reggie Chavez MD SARS-CoV-2 (COVID-19) RNA ZACHARIAH+probe Ql (Unsp spec) Not detected Normal [facility] Comment on above: Performed By: #### U JV, UAX #### [address] [address] Instructional Manager: Reggie Chavez MD TSH w/reflex to FT4on 2022 Thyroid Stim. Horm. 2.31 uIU/mL Normal 0.30-5.00 [facility] Comment on above: Performed By: #### H EPXA #### [address] [address] Instructional Manager: Reggie Chavez MD APTTon 04-05-2023 aPTT Coag (Bld) [Time] 27.1 s Normal 23.0-36.5 [facility] Comment on above: Result Comment: IV Heparin Therapy Range: 66.0-92.0 sec Performed By: #### B C #### [address] [address] Instructional Manager: Reggie Chavez MD Basic Metabolic Profon 04-05 Anion gap [Moles/Vol] 15 mmol/L Normal 9-17 [facility] Comment on above: Performed By: #### U JV, UAX #### [facility] [employer] [address] [place] [address] Instructional Manager: Reggie Chavez MD Calcium [Mass/Vol] 9.5 mg/dL Normal 8.6-10.4 [facility] Comment on above: Performed By: #### U JV, UAX #### [facility] [employer] [address] [place] [address] Instructional Manager: Reggie Chavez MD Chloride [Moles/Vol] 95 mmol/L Low 98-107 [facility] Comment on above: Performed By: #### U JV, UAX #### [facility] [employer] [address] [place] [address] Instructional Manager: Reggie Chavez MD CO2 [Moles/Vol] 31 mmol/L Normal 20-31 [facility] Comment on above: Performed By: #### U JV, UAX #### [facility] [employer] [address] [place] [address] Instructional Manager: Reggie Chavez MD Creatinine [Mass/Vol] 0.53 mg/dL Low 0.70-1.20 [facility] Comment on above: Performed By: #### U JV, UAX #### [facility] [employer] [address] [place] [address] Instructional Manager: Reggie Chavez MD GFR/1.73 sq M.predicted among non-blacks MDRD (S/P/Bld) [Vol rate/Area] mL/min/{1.73_m2} Normal >60 [facility] Comment on above: Result Comment: These results [...] Performed By: #### U JV, UAX #### [facility] [address] [place] [address] Instructional Manager: Reggie Chavez MD Glucose [Mass/Vol] 203 mg/dL High 70-99 [facility] Comment on above: Performed By: #### U JV, UAX #### [facility] [employer] [address] [place] [address] Instructional Manager: Reggie Chavez MD Potassium [Moles/Vol] 4.4 mmol/L Normal 3.7-5.3 [facility] Comment on above: Performed By: #### U JV, UAX #### [facility] [address] [place] [address] Instructional Manager: Reggie Chavez MD Sodium [Moles/Vol] 141 mmol/L Normal 135-144 [facility] Comment on above: Performed By: #### U JV, UAX #### [facility] [address] [place] [address] Instructional Manager: Reggie Chavez MD Urea nitrogen [Mass/Vol] 24 mg/dL High 8-23 [facility] Comment on above: Performed By: #### U JV, UAX #### [facility] [employer] [address] [place] [address] Instructional Manager: Reggie Chavez MD Brain Natri. Peptideon 06-21 -2023 Natriuretic peptide B (Bld) [Mass/Vol] 143 pg/mL Normal <300 [facility] Comment on above: Result Comment: An age-independent cutoff point of 300 pg/ml has a 98% negative predictive value excluding acute heart failure. Performed By: #### U JV, UAX #### [address] [address] Instructional Manager: Reggie Chavez MD CBC with Diffon 04-05-2023 Abs. Basophil 0.03 k/uL Normal 0.00-0.20 [facility] Comment on above: Performed By: #### U JV, UAX #### [address] [address] Instructional Manager: Reggie Chavez MD Abs.Imm.Granulocyte 0.06 k/uL Normal 0.00-0.30 [facility] Comment on above: Performed By: #### U JV, UAX #### [facility] [employer] [address] [place] [address] Instructional Manager: Reggie Chavez MD Abs.Neutrophil (Seg) 6.08 k/uL Normal 1.50-8.10 [facility] Comment on above: Performed By: #### U JV, UAX #### [facility] [employer] [address] [place] [address] Instructional Manager: Reggie Chavez MD Basophils/100 WBC (Bld) 0 % Normal 0-2 [facility] Comment on above: Performed By: #### U JV, UAX #### [facility] [employer] [address] [place] [address] Instructional Manager: Reggie Chavez MD Eosinophils (Bld) [#/Vol] 0.12 10*3/uL Normal 0.00-0.44 [facility] Comment on above: Performed By: #### U JV, UAX #### [facility] [employer] [address] [place] [address] Instructional Manager: Reggie Chavez MD Eosinophils/100 WBC (Bld) 1 % Normal 1-4 [facility] Comment on above: Performed By: #### U JV, UAX #### [address] [address] Instructional Manager: Reggie Chavez MD Erythrocyte distribution width (RBC) [Ratio] 13.2 % Normal 11.8-14.4 [facility] Comment on above: Performed By: #### U JV, UAX #### [facility] [employer] [address] [place] [address] Instructional Manager: Reggie Chavez MD Hematocrit (Bld) [Volume fraction] 48.0 % Normal 40.7-50.3 [facility] Comment on above: Performed By: #### U JV, UAX #### [address] [address] Instructional Manager: Reggie Chavez MD Hemoglobin (Bld) [Mass/Vol] 15.4 g/dL Normal 13.0-17.0 [facility] Comment on above: Performed By: #### U JV, UAX #### [address] [address] Instructional Manager: Reggie Chavez MD Immature granulocytes/100 WBC (Bld) 1 % High 0 [facility] Comment on above: Performed By: #### U JV, UAX #### [address] [address] Instructional Manager: Reggie Chavez MD Lymphocytes (Bld) [#/Vol] 1.53 10*3/uL Normal 1.10-3.70 [facility] Comment on above: Performed By: #### U JV, UAX #### [facility] [employer] [address] [place] [address] Instructional Manager: Reggie Chavez MD Lymphocytes/100 WBC (Bld) 18 % Low 24-43 [facility] Comment on above: Performed By: #### U JV, UAX #### [address] [address] Instructional Manager: Reggie Chavez MD MCH (RBC) [Entitic mass] 33.2 pg Normal 25.2-33.5 [facility] Comment on above: Performed By: #### U JV, UAX #### [place] [address] Instructional Manager: Reggie Chavez MD MCHC (RBC) [Mass/Vol] 32.1 g/dL Normal 28.4-34.8 [facility] Comment on above: Performed By: #### U JV, UAX #### [place] [address] Instructional Manager: Reggie Chavez MD MCV (RBC) [Entitic vol] 103.4 fL High 82.6-102.9 [facility] Comment on above: Performed By: #### U JV, UAX #### [place] [address] Instructional Manager: Reggie Chavez MD Monocytes (Bld) [#/Vol] 0.65 10*3/uL Normal 0.10-1.20 [facility] Comment on above: Performed By: #### U JV, UAX #### [place] [address] Instructional Manager: Reggie Chavez MD Monocytes/100 WBC (Bld) 8 % Normal 3-12 [facility] Comment on above: Performed By: #### U JV, UAX #### [place] [address] Instructional Manager: Reggie Chavez MD Neutrophil (Seg) 72 % High 36-65 [facility] Comment on above: Performed By: #### U JV, UAX #### [address] [address] Instructional Manager: Reggie Chavez MD NRBC Automated 0.0 per 100 WBC Normal 0.0 [facility] Comment on above: Performed By: #### U JV, UAX #### [address] [address] Instructional Manager: Reggie Chavez MD Platelet mean volume (Bld) [Entitic vol] 10.3 fL Normal 8.1-13.5 [facility] Comment on above: Performed By: #### U JV, UAX #### [address] [address] Instructional Manager: Reggie Chavez MD Platelets (Bld) [#/Vol] 219 10*3/uL Normal 138-453 [facility] Comment on above: Performed By: #### U JV, UAX #### [address] [address] Instructional Manager: Reggie Chavez MD RBC (Bld) [#/Vol] 4.64 10*6/uL Normal 4.21-5.77 [facility] Comment on above: Performed By: #### U JV, UAX #### [address] [address] Instructional Manager: Reggie Chavez MD RBC morphology finding Nom (Bld) MACROCYTOSIS PRESENT Normal [facility] Comment on above: Performed By: #### U JV, UAX #### [address] [address] Instructional Manager: Reggie Chavez MD WBC (Bld) [#/Vol] 8.5 10*3/uL Normal 3.5-11.3 [facility] Comment on above: Performed By: #### U JV, UAX #### [facility] [employer] [address] [place] [address] Instructional Manager: Reggie Chavez MD Heparin Anti-Xaon 04-05-2023 Heparin Anti-Xa <0.10 Normal [facility] Comment on above: Performed By: #### B C #### [address] [address] Instructional Manager: Reggie Chavez MD Magnesiumon 04-05-2023 Magnesium [Mass/Vol] 1.1 mg/dL Low 1.6-2.6 [facility] Comment on above: Performed By: #### B C #### [address] [address] Instructional Manager: Reggie Chavez MD PTon 04-05-2023 INR Coag (PPP) [Relative time] 1.0 {INR} Normal [facility] Comment on above: Result Comment: Therapeutic Range: Moderate Anticoagulant Intensity: INR = 2.0-3.0 High Anticoagulant Intensity: INR = 2.5-3.5 Performed By: #### B C #### [address] [address] Instructional Manager: Reggie Chavez MD PT Coag (PPP) [Time] 12.9 s Normal 11.7-14.9 [facility] Comment on above: Performed By: #### B C #### [address] [address] Instructional Manager: Reggie Chavez MD Resp Viral Panelon 3 Source: .NASOPHARYNGEAL SWAB Normal [facility] Comment on above: Performed By: #### U JV, UAX #### [address] [address] Instructional Manager: Reggie Chavez MD Troponinon 04-05-2023 Troponin, High Sens 110 ng/L Critically high 0-22 [facility] Comment on above: Result Comment: High Sensitivity Troponin values cannot be compared with other Troponin methodologies. Performed By: #### V BG #### [facility] [employer] [address] [place] [address] Instructional Manager: Reggie Chavez MD Troponin, High Sens 122 ng/L Critically high 0-22 [facility] Comment on above: Result Comment: High Sensitivity Troponin values cannot be compared with other Troponin methodologies. Performed By: #### B C #### [place] [address] [place], [place] [id number] Instructional Manager: Reggie Chavez MD XR CHEST PORTABLEon 04-05-20 XR CHEST PORTABLE EXAMINATION: ONE XRAY VIEW OF THE CHEST 04/05/2023 7:20 pm COMPARISON: None. HISTORY: Acute cough and shortness of breath. FINDINGS: Normal cardiomediastinal silhouette. Mild bibasilar atelectasis. No significant pleural effusion. No pneumothorax. IMPRESSION: Mild bibasilar atelectasis. Interpreted by: Glenna Bethea MD Signed by: Glenna Bethea MD 04/05/23 Final result Normal [facility] Orders Onlyon 03-20-2023 Orders Only [id number] Evgeny Delgado 1955 M Date Provider Department Center 03/20/2023 LAI [facility]ARD [facility] CARD [place] Heart[facility]AS Family History Problem Relation Age of Onset Other Father Family Status - Relation Status Age at Father Normal [facility] CBC AUTO DIFFon 02-27-2023 BASO # 0.0 103/ul Normal 0.0-0.1 [facility] Comment on above: Performed By: #### P OCGLUC #### [facility] [address] [address] [address] Raymond Walsh Basophils/100 WBC (Bld) 0.4 % Normal 0.2-2.0 [facility] Comment on above: Performed By: #### P OCGLUC #### [facility] [address] [place] [address] Dr. Raymond Walsh EO # 0.2 103/ul Normal 0.0-0.7 [facility] Comment on above: Performed By: #### P OCGLUC #### [facility] [address] [address] [address] Raymond Walsh Eosinophils/100 WBC (Bld) 1.7 % Normal 0.9-7.0 [facility] Comment on above: Performed By: #### P OCGLUC #### [facility] [address] [address] [address] Raymond Walsh Erythrocyte distribution width (RBC) [Ratio] 14.6 % Normal 11.0-15.0 [facility] Comment on above: Performed By: #### P OCGLUC #### [facility] [address] [address] [address] Raymond Walsh Hematocrit (Bld) [Volume fraction] 49.5 % Normal 42.0-54.0 [facility] Comment on above: Performed By: #### P OCGLUC #### [facility] [address] [place] [address] Dr. Raymond Walsh Hemoglobin (Bld) [Mass/Vol] 15.9 g/dL Normal 14.0-18.0 [facility] Comment on above: Performed By: #### P OCGLUC #### [facility] [address] [address] [address] Raymond Walsh IG # 0.06 10e3/ul Critically high 0.00-0.03 [facility] Comment on above: Performed By: #### P OCGLUC #### [facility] [address] [address] [address] Raymond Walsh IG % 0.6 % Critically high 0.0-0.5 [facility] Comment on above: Performed By: #### P OCGLUC #### [facility] [address] [place] [address] Dr. Raymond Walsh LYMPH # 1.8 103/ul Normal 1.2-3.8 [facility] Comment on above: Performed By: #### P OCGLUC #### [facility] [address] [address] [address] Raymond Walsh Lymphocytes/100 WBC (Bld) 18.8 % Critically low 20.5-60.0 [facility] Comment on above: Performed By: #### P OCGLUC #### [facility] [address] [address] [address] Raymond Walsh MANUAL DIFF REQ NO Normal [facility] Comment on above: Performed By: #### P OCGLUC #### [facility] [address] [address] [address] Raymond Walsh MCH (RBC) [Entitic mass] 32.3 pg Normal 25.9-34.0 [facility] Comment on above: Performed By: #### P OCGLUC #### [facility] [address] [address] [address] Raymond Walsh MCHC (RBC) [Mass/Vol] 32.1 g/dL Normal 29.9-35.2 [facility] Comment on above: Performed By: #### P OCGLUC #### [facility] [address] [place] [address] Dr. Raymond Walsh MCV (RBC) [Entitic vol] 100.6 fL Critically high 80.0-94.0 [facility] Comment on above: Performed By: #### P OCGLUC #### [facility] [address] [place] [address] Dr. Raymond Walsh MONO # 0.5 103/ul Normal 0.3-0.8 [facility] Comment on above: Performed By: #### P OCGLUC #### [facility] [address] [place] [address] Dr. Raymond Walsh Monocytes/100 WBC (Bld) 5.5 % Normal 1.7-12.0 [facility] Comment on above: Performed By: #### P OCGLUC #### [facility] [address] [place] [address] Dr. Raymond Walsh NEUT # 7.0 103/ul Critically high 1.4-6.5 [facility] Comment on above: Performed By: #### P OCGLUC #### [facility] [address] [place] [address] Dr. Raymond Walsh Neutrophils/100 WBC (Bld) 73.0 % Normal 43.0-75.0 [facility] Comment on above: Performed By: #### P OCGLUC #### [facility] [address] [address] [address] Raymond Walsh Platelet mean volume (Bld) [Entitic vol] 10.0 fL Normal 9.5-13.5 [facility] Comment on above: Performed By: #### P OCGLUC #### [facility] [address] [address] [address] Raymond Walsh PLT 201 103/ul Normal 150-450 [facility] Comment on above: Performed By: #### P OCGLUC #### [facility] [address] [address] [address] Raymond Walsh RBC 4.92 106/ul Normal 4.70-6.10 [facility] Comment on above: Performed By: #### P OCGLUC #### [facility] [address] [address] [address] Raymond Walsh WBC 9.6 103/ul Normal 4.0-11.0 [facility] Comment on above: Performed By: #### P OCGLUC #### [facility] [address] [address] [address] Raymond Walsh Office Visiton 02-27-2023 Follow-up visit [id number] Evgeny Delgado 1955 M Date Provider Department Center 02/27/2023 CHRISTOPHER GOLDMAN [facility] Family History Problem Relation Age of Onset Other Father Family Status - Relation Status Age at Father Level of Service:47758 [place] OFFICE/OUTPATIENT ESTABLISHED HIGH MDM 40-54 MIN Reason for Visit and Comments: Coronary Artery Disease [187] Congestive Heart Failure [127] Valve Disorder [3372] Normal [facility] PROF CHEM 8 (BAS METB)on Anion gap [Moles/Vol] 11.0 mmol/L Normal [facility] Comment on above: Performed By: #### C BC #### [facility] [address] [address] [address] Raymond Walsh Calcium [Mass/Vol] 9.6 mg/dL Normal 8.5-10.1 [facility] Comment on above: Performed By: #### C BC #### [facility] [address] [address] [address] Raymond Walsh Chloride [Moles/Vol] 100 mmol/L Normal 98-107 [facility] Comment on above: Performed By: #### C BC #### [facility] [address] [address] [address] Raymond Walsh CO2 [Moles/Vol] 36.4 mmol/L Critically high 21.0-32.0 [facility] Comment on above: Performed By: #### C BC #### [facility] [address] [address] [address] Raymond Walsh Creatinine [Mass/Vol] 0.66 mg/dL Critically low 0.70-1.30 [facility] Comment on above: Performed By: #### C BC #### [facility] [address] [place] [address] Dr. Raymond Walsh EGFR-AF BURMESE >60 Normal >=60 [facility] Comment on above: Performed By: #### C BC #### [facility] [address] [place] [address] Dr. Raymond Walsh EGFR-NON AF BURMESE >60 Normal >=60 [facility] Comment on above: Performed By: #### C BC #### [facility] [address] [place] [address] Dr. Raymond Walsh Glucose [Mass/Vol] 160 mg/dL Critically high 74-106 [facility] Comment on above: Performed By: #### C BC #### [facility] [address] [place] [address] Dr. Raymond Walsh Potassium [Moles/Vol] 4.4 mmol/L Normal 3.5-5.1 [facility] Comment on above: Performed By: #### C BC #### [facility] [address] [place] [address] Dr. Raymond Walsh Sodium [Moles/Vol] 143 mmol/L Normal 136-145 [facility] Comment on above: Performed By: #### C BC #### [facility] [address] [place] [address] Dr. Raymond Walsh Urea nitrogen [Mass/Vol] 23.0 mg/dL Critically high 7.0-18.0 [facility] Comment on above: Performed By: #### C BC #### [facility] [address] [address] [address] Raymond Walsh Urea nitrogen/Creatinine [Mass ratio] 34.8 mg/mg Normal [facility] Comment on above: Performed By: #### C BC #### [facility] [address] [address] [address] Raymond Walsh GLYCOHEMOGLOBIN A1Con 2022 ADA RECOMMENDATION SEE BELOW Normal [facility] Comment on above: Result Comment: ADA RECOMMENDED LIMIT 4.0 - 6.0 ADA THERAPEUTIC TARGET < 7.0 ACTION SUGGESTED > 7.0 Performed By: #### C MP, BNP #### [facility] [address] [place] [address] Dr. Raymond Walsh Glucose [Mass/Vol] 174 mg/dL Normal [facility] Comment on above: Performed By: #### C MP, BNP #### [facility] [address] [place] [address] Dr. Raymond Walsh HbA1c (Bld) [Mass fraction] 7.7 % Critically high 4.5-6.2 [facility] Comment on above: Performed By: #### C MP, BNP #### [facility] [address] [place] [address] Dr. Raymond Walsh ECHOCARDIO M/2D COMPLETEon 0 01-18-2023 ECHOCARDIO M/2D COMPLETE Patient: EVGENY DELGADO Exam Date: 01/18/2023 : 1955 Gender:M Ordering : STEPHEN KENNEDY [facility] Admission #: [id number] Family : DR MARCO BOSCH M.D. Order #: [id number] CLICK HERE TO VIEW EXAM ECHOCARDIOGRAM REPORT [...] Christopher Carreon M.D. on 01/19/2023 at 18:52 [facility] Office Visiton 12-21-2022 Follow-up visit [id number] Azael Delgadoall 1955 M Date Provider Department Center 12/21/2022 STEPHEN EWING Family History Problem Relation Age of Onset Other Father Family Status - Relation Status Age at Father Level of Service:95827 [place] OFFICE/OUTPATIENT ESTABLISHED MOD MDM 30-39 MIN Reason for Visit and Comments: Coronary Artery Disease [187] Congestive Heart Failure [127] Hypertension [513254] Valve Disorder [3372] [facility] Orders Onlyon 12-21-2022 Orders Only [id number] Evgeny Delgado 1955 M Date Provider Department Center 12/21/2022 NITA BULL Family History Problem Relation Age of Onset Other Father Family Status - Relation Status Age at Father [facility] Follow-Upon 09-01-2022 Follow-Up [id number] Azael Delgadoall 1955 M Date Provider Department Center 09/01/2022 STEPHEN EWING Family History Problem Relation Age of Onset Other Father Family Status - Relation Status Age at Father Level of Service:25614 [place] OFFICE/OUTPATIENT ESTABLISHED MOD MDM 30-39 MIN Reason for Visit and Comments: Congestive Heart Failure [127] Normal [facility] DSon 08-08-2022 DS Admission Admitted 08/08/2022 for [...] PROCEDURE: 08/08/2022 PERFORMING PHYSICIAN: Dr. Mohan Cam ANESTHESIOLOGIST ASSISTANT: None INDICATIONS FOR PROCEDURE: 1. History of [...] type 2, hypertension was recently admitted to [facility] for heart failure symptoms. He was [...] Time Provider Department Center 08/08/2022 6:05 PM [facility] CV EKG/[facility] [place] [facility] 09/01/2022 1:40 PM Stephen Kennedy NP CARD [facility] Test Results Pending At Discharge Normal [facility] CBC AUTO DIFFon 08-05-2022 BASO # 0.0 103/ul Normal 0.0-0.1 [facility] Comment on above: Performed By: #### C BC #### [facility] [address] [address] [address] Raymond Walsh Basophils/100 WBC (Bld) 0.4 % Normal 0.2-2.0 [facility] Comment on above: Performed By: #### C BC #### [facility] [address] [address] [address] Raymond Walsh EO # 0.2 103/ul Normal 0.0-0.7 [facility] Comment on above: Performed By: #### C BC #### [facility] [address] [address] [address] Raymond Walsh Eosinophils/100 WBC (Bld) 1.6 % Normal 0.9-7.0 [facility] Comment on above: Performed By: #### C BC #### [facility] [address] [address] [address] Raymond Walsh Erythrocyte distribution width (RBC) [Ratio] 18.1 % Critically high 11.0-15.0 [facility] Comment on above: Performed By: #### C BC #### [facility] [address] [place] [address] Dr. Raymond Walsh Hematocrit (Bld) [Volume fraction] 43.3 % Normal 42.0-54.0 [facility] Comment on above: Performed By: #### C BC #### [facility] [address] [place] [address] Dr. Raymond Walsh Hemoglobin (Bld) [Mass/Vol] 13.4 g/dL Critically low 14.0-18.0 [facility] Comment on above: Performed By: #### C BC #### [facility] [address] [place] [address] Dr. Raymond Walsh IG # 0.06 10e3/ul Critically high 0.00-0.03 [facility] Comment on above: Performed By: #### C BC #### [facility] [address] [place] [address] Dr. Raymond Walsh IG % 0.7 % Critically high 0.0-0.5 [facility] Comment on above: Performed By: #### C BC #### [facility] [address] [place] [address] Dr. Raymond Walsh LYMPH # 1.7 103/ul Normal 1.2-3.8 [facility] Comment on above: Performed By: #### C BC #### [facility] [address] [place] [address] Dr. Raymond Walsh Lymphocytes/100 WBC (Bld) 18.6 % Critically low 20.5-60.0 [facility] Comment on above: Performed By: #### C BC #### [facility] [address] [place] [address] Dr. Raymond Walsh MANUAL DIFF REQ NO Normal [facility] Comment on above: Performed By: #### C BC #### [facility] [address] [place] [address] Dr. Raymond Walsh MCH (RBC) [Entitic mass] 30.9 pg Normal 25.9-34.0 [facility] Comment on above: Performed By: #### C BC #### [facility] [address] [place] [address] Dr. Raymond Walsh MCHC (RBC) [Mass/Vol] 30.9 g/dL Normal 29.9-35.2 [facility] Comment on above: Performed By: #### C BC #### [facility] [address] [place] [address] Dr. Raymond Walsh MCV (RBC) [Entitic vol] 99.8 fL Critically high 80.0-94.0 [facility] Comment on above: Performed By: #### C BC #### [facility] [address] [place] [address] Dr. Raymond Walsh MONO # 0.6 103/ul Normal 0.3-0.8 [facility] Comment on above: Performed By: #### C BC #### [facility] [address] [place] [address] Dr. Raymond Walsh Monocytes/100 WBC (Bld) 6.1 % Normal 1.7-12.0 [facility] Comment on above: Performed By: #### C BC #### [facility] [address] [place] [address] Dr. Raymond Walsh NEUT # 6.6 103/ul Critically high 1.4-6.5 [facility] Comment on above: Performed By: #### C BC #### [facility] [address] [place] [address] Dr. Raymond Walsh Neutrophils/100 WBC (Bld) 72.6 % Normal 43.0-75.0 [facility] Comment on above: Performed By: #### C BC #### [facility] [address] [place] [address] Dr. Raymond Walsh Platelet mean volume (Bld) [Entitic vol] 10.2 fL Normal 9.5-13.5 [facility] Comment on above: Performed By: #### C BC #### [facility] [address] [address] [address] Raymond Walsh PLT 232 103/ul Normal 150-450 [facility] Comment on above: Performed By: #### C BC #### [facility] [address] [place] [address] Dr. Raymond Walsh RBC 4.34 106/ul Critically low 4.70-6.10 [facility] Comment on above: Performed By: #### C BC #### [facility] [address] [place] [address] Dr. Raymond Walsh WBC 9.1 103/ul Normal 4.0-11.0 [facility] Comment on above: Performed By: #### C BC #### [facility] [address] [place] [address] Dr. Raymond Walsh [facility]17 SARS-CoV-2 (COVID-19) RNA ZACHARIAH+probe Ql (Unsp spec) Not detected Normal NOT DETECTED [facility] Comment on above: Result Comment: This test is not yet approved or cleared by the [place] FDA. When there are no FDA-approved or cleared tests available, and other criteria are met, FDA can make tests available under an emergency access mechanism called an Emergency Use Authorization (EUA). The EUA for this test is supported by the [employer] of Health and Human Service's (HHS's) declaration [...] SARS-CoV-2. Performed By: #### C VDTBH #### [facility] [address] [place] [address] Dr. Raymond Walsh PROF CHEM 8 (BAS METB)on Anion gap [Moles/Vol] 9.7 mmol/L Normal [facility] Comment on above: Performed By: #### C VDTBH #### [facility] [address] [place] [address] Dr. Raymond Walsh Calcium [Mass/Vol] 9.1 mg/dL Normal 8.5-10.1 [facility] Comment on above: Performed By: #### C VDTBH #### [facility] [address] [place] [address] Dr. Raymond Walsh Chloride [Moles/Vol] 101 mmol/L Normal 98-107 [facility] Comment on above: Performed By: #### C VDTBH #### [facility] [address] [place] [address] Dr. Raymond Walsh CO2 [Moles/Vol] 34.0 mmol/L Critically high 21.0-32.0 [facility] Comment on above: Performed By: #### C VDTBH #### [facility] [address] [place] [address] Dr. Raymond Walsh Creatinine [Mass/Vol] 0.56 mg/dL Critically low 0.70-1.30 [facility] Comment on above: Performed By: #### C VDTBH #### [facility] [address] [place] [address] Dr. Raymond Walsh EGFR-AF BURMESE >60 Normal >=60 [facility] Comment on above: Performed By: #### C VDTBH #### [facility] [address] [place] [address] Dr. Raymond Walsh EGFR-NON AF BURMESE >60 Normal >=60 [facility] Comment on above: Performed By: #### C VDTBH #### [facility] [address] [address] [address] Raymond Walsh Glucose [Mass/Vol] 165 mg/dL Critically high 74-[address] [facility] Comment on above: Performed By: #### C VDTBH #### [facility] [address] [address] [address] Raymond Walsh Potassium [Moles/Vol] 4.7 mmol/L Normal 3.5-5.1 [facility] Comment on above: Performed By: #### C VDTBH #### [facility] [address] [address] [address] Raymond Walsh Sodium [Moles/Vol] 140 mmol/L Normal 136-145 [facility] Comment on above: Performed By: #### C VDTBH #### [facility] [address] [address] [address] Raymond Walsh Urea nitrogen [Mass/Vol] 15.0 mg/dL Normal 7.0-18.0 [facility] Comment on above: Performed By: #### C VDTBH #### [facility] [address] [address] [address] Raymond Walsh Urea nitrogen/Creatinine [Mass ratio] 26.8 mg/mg Normal [facility] Comment on above: Performed By: #### C VDTBH #### [facility] [address] [address] [address] Raymond Walsh PROTIMEon 08-05-2022 INR Coag (PPP) [Relative time] 1.02 {INR} Normal [facility] Comment on above: Performed By: #### P OCGLUC #### [facility] [address] [address] [address] Raymond Walsh INR GUIDELINES SEE BELOW Normal [facility] Comment on above: Result Comment: EDUARDO RED INR: 2.0 - 3.0 CONDITIONS NOT LISTED BELOW 2.5 - 3.5 FOR PROSTHETIC HEART VALVE REPLACEMENT 2.5 - 3.5 RECURRENT THROMBOSIS Performed By: #### P OCGLUC #### [facility] [address] [place] [address] Dr. Raymond Walsh PT Coag (PPP) [Time] 11.0 s Normal 9.0-11.6 [facility] Comment on above: Performed By: #### P OCGLUC #### [facility] [address] [place] [address] Dr. Raymond Walsh Orders Onlyon 08-04-2022 Orders Only [id number] Evgeny Delgado 1955 M Date Provider Department Center 08/04/2022 Black-KVNG TELLO [facility] C Family History Problem Relation Age of Onset Other Father Family Status - Relation Status Age at Father Normal [facility] Orders Onlyon 08-03-2022 Orders Only [id number] Evgeny Delgado 1955 M Date Provider Department Center 08/03/2022 BRADY MARTINEZ [facility] C Family History Problem Relation Age of Onset Other Father Family Status - Relation Status Age at Father Normal [facility] Orders Onlyon 07-29-2022 Orders Only [id number] Evgeny Delgado 1955 M Date Provider Department Center 07/29/2022 EVELIN VALDEZ [facility] C Family History Problem Relation Age of Onset Other Father Family Status - Relation Status Age at Father Normal [facility] Office Visiton 07-05-2022 Follow-up visit [id number] Evgeny Delgado 1955 M Date Provider Department Center 07/05/2022 MOHAN LUNSFORD [facility] Family History Problem Relation Age of Onset Other Father Family Status - Relation Status Age at Father Level of Service:64485 [place] OFFICE/OUTPATIENT NEW HIGH MDM 60-74 MINUTES Normal [facility] BNPon 06-27-2022 Natriuretic peptide B (Bld) [Mass/Vol] 219.0 pg/mL Normal <=900.0 [facility] Comment on above: Performed By: #### C MP, BNP #### [facility] [address] [place] [address] Dr. Raymond Walsh CBC AUTO DIFFon 06-27-2022 BASO # 0.0 103/ul Normal 0.0-0.1 [facility] Comment on above: Performed By: #### S PUTGS #### [facility] [address] [place] [address] Dr. Raymond Walsh Basophils/100 WBC (Bld) 0.4 % Normal 0.2-2.0 [facility] Comment on above: Performed By: #### S PUTGS #### [facility] [address] [place] [address] Dr. Raymond Walsh EO # 0.1 103/ul Normal 0.0-0.7 [facility] Comment on above: Performed By: #### S PUTGS #### [facility] [address] [place] [address] Dr. Raymond Walsh Eosinophils/100 WBC (Bld) 1.1 % Normal 0.9-7.0 [facility] Comment on above: Performed By: #### S PUTGS #### [facility] [address] [place] [address] Dr. Raymond Walsh Erythrocyte distribution width (RBC) [Ratio] 15.3 % Critically high 11.0-15.0 [facility] Comment on above: Performed By: #### S PUTGS #### [facility] [address] [place] [address] Dr. Raymond Walsh Hematocrit (Bld) [Volume fraction] 44.4 % Normal 42.0-54.0 [facility] Comment on above: Performed By: #### S PUTGS #### [facility] [address] [place] [address] Dr. Raymond Walsh Hemoglobin (Bld) [Mass/Vol] 14.2 g/dL Normal 14.0-18.0 [facility] Comment on above: Performed By: #### S PUTGS #### [facility] [address] [place] [address] Dr. Raymond Walsh IG # 0.24 10e3/ul Critically high 0.00-0.03 [facility] Comment on above: Performed By: #### S PUTGS #### [facility] [address] [place] [address] Dr. Raymond Walsh IG % 2.5 % Critically high 0.0-0.5 [facility] Comment on above: Performed By: #### S PUTGS #### [facility] [address] [place] [address] Dr. Raymond Walsh LYMPH # 2.7 103/ul Normal 1.2-3.8 [facility] Comment on above: Performed By: #### S PUTGS #### [facility] [address] [place] [address] Dr. Raymond Walsh Lymphocytes/100 WBC (Bld) 27.4 % Normal 20.5-60.0 [facility] Comment on above: Performed By: #### S PUTGS #### [facility] [address] [place] [address] Dr. Raymond Walsh MANUAL DIFF REQ NO Normal [facility] Comment on above: Performed By: #### S PUTGS #### [facility] [address] [place] [address] Dr. Raymond Walsh MCH (RBC) [Entitic mass] 30.8 pg Normal 25.9-34.0 [facility] Comment on above: Performed By: #### S PUTGS #### [facility] [address] [place] [address] Dr. Raymond Walsh MCHC (RBC) [Mass/Vol] 32.0 g/dL Normal 29.9-35.2 [facility] Comment on above: Performed By: #### S PUTGS #### [facility] [address] [place] [address] Dr. Raymond Walsh MCV (RBC) [Entitic vol] 96.3 fL Critically high 80.0-94.0 [facility] Comment on above: Performed By: #### S PUTGS #### [facility] [address] [place] [address] Dr. Raymond Walsh MONO # 0.7 103/ul Normal 0.3-0.8 [facility] Comment on above: Performed By: #### S PUTGS #### [facility] [address] [place] [address] Dr. Raymond Walsh Monocytes/100 WBC (Bld) 6.9 % Normal 1.7-12.0 [facility] Comment on above: Performed By: #### S PUTGS #### [facility] [address] [place] [address] Dr. Raymond Walsh NEUT # 6.0 103/ul Normal 1.4-6.5 [facility] Comment on above: Performed By: #### S PUTGS #### [facility] [address] [place] [address] Dr. Raymond Walsh Neutrophils/100 WBC (Bld) 61.7 % Normal 43.0-75.0 [facility] Comment on above: Performed By: #### S PUTGS #### [facility] [address] [place] [address] Dr. Raymond Walsh Platelet mean volume (Bld) [Entitic vol] 9.8 fL Normal 9.5-13.5 [facility] Comment on above: Performed By: #### S PUTGS #### [facility] [address] [place] [address] Dr. Raymond Walsh PLT 221 103/ul Normal 150-450 [facility] Comment on above: Performed By: #### S PUTGS #### [facility] [address] [place] [address] Dr. Raymond Walsh RBC 4.61 106/ul Critically low 4.70-6.10 [facility] Comment on above: Performed By: #### S PUTGS #### [facility] [address] [place] [address] Dr. Raymond Walsh WBC 9.7 103/ul Normal 4.0-11.0 [facility] Comment on above: Performed By: #### S PUTGS #### [facility] [address] [place] [address] HEAD WO CONon [...] by: JULIOCESAR EUBANKS Date: 2022-06-27 09:48 Normal [facility] POINT OF CARE GLUCOSEon 06-16 Glucose [Mass/Vol] 225 mg/dL Critically high 74-[address] [facility] Comment on above: Performed By: #### C MP, BNP #### [facility] [address] [place] [address] Dr. Raymond Walsh Glucose [Mass/Vol] 84 mg/dL Normal 74-106 [facility] Comment on above: Performed By: #### P OCGLUC #### [facility] [address] [address] [address] Raymond Walsh PROF 14(COMP METB)on 022 Albumin [Mass/Vol] 3.2 g/dL Critically low 3.4-5.0 [facility] Comment on above: Performed By: #### C MP, BNP #### [facility] [address] [place] [address] Dr. Raymond Walsh Albumin/Globulin [Mass ratio] 1.0 {ratio} Normal [facility] Comment on above: Performed By: #### C MP, BNP #### [facility] [address] [address] [address] Raymond Walsh ALP [Catalytic activity/Vol] 105 U/L Normal 46-116 [facility] Comment on above: Performed By: #### C MP, BNP #### [facility] [address] [address] [address] Raymond Walsh ALT [Catalytic activity/Vol] 56 U/L Normal 16-63 [facility] Comment on above: Performed By: #### C MP, BNP #### [facility] [address] [address] [address] Raymond Walsh Anion gap [Moles/Vol] 8.4 mmol/L Normal [facility] Comment on above: Performed By: #### C MP, BNP #### [facility] [address] [address] [address] Raymond Walsh AST [Catalytic activity/Vol] 25 U/L Normal 15-37 [facility] Comment on above: Performed By: #### C MP, BNP #### [facility] [address] [address] [address] Raymond Walsh Bilirubin [Mass/Vol] 0.5 mg/dL Normal 0.2-1.0 [facility] Comment on above: Performed By: #### C MP, BNP #### [facility] [address] [address] [address] Raymond Walsh Calcium [Mass/Vol] 9.3 mg/dL Normal 8.5-10.1 [facility] Comment on above: Performed By: #### C MP, BNP #### [facility] [address] [address] [address] Raymond Walsh Chloride [Moles/Vol] 97 mmol/L Critically low 98-107 [facility] Comment on above: Performed By: #### C MP, BNP #### [facility] [address] [address] [address] Raymond Walsh CO2 [Moles/Vol] 33.1 mmol/L Critically high 21.0-32.0 [facility] Comment on above: Performed By: #### C MP, BNP #### [facility] [address] [address] [address] Raymond Walsh Creatinine [Mass/Vol] 0.80 mg/dL Normal 0.70-1.30 [facility] Comment on above: Performed By: #### C MP, BNP #### [facility] [address] [address] [address] Raymond Walsh EGFR-AF BURMESE >60 Normal >=60 [facility] Comment on above: Performed By: #### C MP, BNP #### [facility] [address] [address] [address] Raymond Walsh EGFR-NON AF BURMESE >60 Normal >=60 [facility] Comment on above: Performed By: #### C MP, BNP #### [facility] [address] [address] [address] Raymond Walsh Globulin (S) [Mass/Vol] 3.3 g/dL Normal [facility] Comment on above: Performed By: #### C MP, BNP #### [facility] [address] [address] [address] Raymond Walsh Glucose [Mass/Vol] 98 mg/dL Normal 74-106 [facility] Comment on above: Performed By: #### C MP, BNP #### [facility] [address] [address] [address] Raymond Walsh Potassium [Moles/Vol] 4.5 mmol/L Normal 3.5-5.1 [facility] Comment on above: Performed By: #### C MP, BNP #### [facility] [address] [address] [address] Raymond Walsh Protein [Mass/Vol] 6.5 g/dL Normal 6.4-8.2 [facility] Comment on above: Performed By: #### C MP, BNP #### [facility] [address] [address] [address] Raymond Walsh Sodium [Moles/Vol] 134 mmol/L Critically low 136-145 [facility] Comment on above: Performed By: #### C MP, BNP #### [facility] [address] [address] [address] Raymond Walsh Urea nitrogen [Mass/Vol] 42.0 mg/dL Critically high 7.0-18.0 [facility] Comment on above: Performed By: #### C MP, BNP #### [facility] [address] [address] [address] Raymond Walsh Urea nitrogen/Creatinine [Mass ratio] 52.5 mg/mg Normal [facility] Comment on above: Performed By: #### C MP, BNP #### [facility] [address] [place] [address] Dr. Raymond Walsh BNPon 06-26-2022 Natriuretic peptide B (Bld) [Mass/Vol] 550.0 pg/mL Normal <=900.0 [facility] Comment on above: Performed By: #### C MP, BNP #### [facility] [address] [place] [address] Dr. Raymond Walsh Natriuretic peptide B (Bld) [Mass/Vol] 508.0 pg/mL Normal <=900.0 [facility] Comment on above: Performed By: #### S PUTGS #### [facility] [address] [place] [address] Dr. Raymond Walsh CARDIAC FABIAN 3-6on 2 CK [Catalytic activity/Vol] 138 U/L Normal 39-308 [facility] Comment on above: Performed By: #### P OCGLUC #### [facility] [address] [place] [address] Dr. Raymond Walsh CK.MB [Mass/Vol] 7.50 ng/mL Critically high <=3.60 [facility] Comment on above: Performed By: #### P OCGLUC #### [facility] [address] [place] [address] Dr. Raymond Walsh HSTROP 12.6 pg/mL Normal 4.0-76.1 [facility] Comment on above: Result Comment: CUT- OFF POINTS HAVE BEEN ESTABLISHED BASED ON THE FOURTH UNIVERSAL DEFINITIONS OF MYOCARDIAL INFARCTION. THE UPPER REFERENCE LIMIT (URL) OF TROPONIN, DEFINED THE 99TH PERCENTILE OF cTnI DISTRIBUTION IN A REFERENCE POPULATION, HAS BEEN CONFIRMED THE DECISION THRESHOLD FOR IN DIAGNOSIS. Performed By: #### P OCGLUC #### [facility] [address] [place] [address] Dr. Raymond Walsh CK [Catalytic activity/Vol] 124 U/L Normal 39-308 [facility] Comment on above: Performed By: #### P OCGLUC #### [facility] [address] [place] [address] Dr. Raymond Walsh CK.MB [Mass/Vol] 7.35 ng/mL Critically high <=3.60 [facility] Comment on above: Performed By: #### P OCGLUC #### [facility] [address] [place] [address] Dr. Raymond Walsh HSTROP 11.8 pg/mL Normal 4.0-76.1 [facility] Comment on above: Result Comment: CUT- OFF POINTS HAVE BEEN ESTABLISHED BASED ON THE FOURTH UNIVERSAL DEFINITIONS OF MYOCARDIAL INFARCTION. THE UPPER REFERENCE LIMIT (URL) OF TROPONIN, DEFINED THE 99TH PERCENTILE OF cTnI DISTRIBUTION IN A REFERENCE POPULATION, HAS BEEN CONFIRMED THE DECISION THRESHOLD FOR IN DIAGNOSIS. Performed By: #### P OCGLUC #### [facility] [address] [place] [address] Dr. Raymond Walsh CBC AUTO DIFFon 06-26-2022 BASO # 0.1 103/ul Normal 0.0-0.1 [facility] Comment on above: Performed By: #### C MP, BNP #### [facility] [address] [place] [address] Dr. Raymond Walsh Basophils/100 WBC (Bld) 0.4 % Normal 0.2-2.0 [facility] Comment on above: Performed By: #### C MP, BNP #### [facility] [address] [place] [address] Dr. Raymond Walsh EO # 0.0 103/ul Normal 0.0-0.7 [facility] Comment on above: Performed By: #### C MP, BNP #### [facility] [address] [place] [address] Dr. Raymond Walsh Eosinophils/100 WBC (Bld) 0.1 % Critically low 0.9-7.0 [facility] Comment on above: Performed By: #### C MP, BNP #### [facility] [address] [place] [address] Dr. Raymond Walsh Erythrocyte distribution width (RBC) [Ratio] 15.2 % Critically high 11.0-15.0 [facility] Comment on above: Performed By: #### C MP, BNP #### [facility] [address] [place] [address] Dr. Raymond Walsh Hematocrit (Bld) [Volume fraction] 51.6 % Normal 42.0-54.0 [facility] Comment on above: Performed By: #### C MP, BNP #### [facility] [address] [place] [address] Dr. aRymond Walsh Hemoglobin (Bld) [Mass/Vol] 16.7 g/dL Normal 14.0-18.0 [facility] Comment on above: Performed By: #### C MP, BNP #### [facility] [address] [address] [address] Raymond Walsh IG # 0.41 10e3/ul Critically high 0.00-0.03 [facility] Comment on above: Performed By: #### C MP, BNP #### [facility] [address] [address] [address] Raymond Walsh IG % 2.9 % Critically high 0.0-0.5 [facility] Comment on above: Performed By: #### C MP, BNP #### [facility] [address] [place] [address] Dr. Raymond Walsh LYMPH # 2.3 103/ul Normal 1.2-3.8 [facility] Comment on above: Performed By: #### C MP, BNP #### [facility] [address] [address] [address] Raymond Walsh Lymphocytes/100 WBC (Bld) 16.1 % Critically low 20.5-60.0 [facility] Comment on above: Performed By: #### C MP, BNP #### [facility] [address] [address] [address] Raymond Walsh MANUAL DIFF REQ NO Normal [facility] Comment on above: Performed By: #### C MP, BNP #### [facility] [address] [address] [address] Raymond Walsh MCH (RBC) [Entitic mass] 30.4 pg Normal 25.9-34.0 [facility] Comment on above: Performed By: #### C MP, BNP #### [facility] [address] [place] [address] Dr. Raymond Walsh MCHC (RBC) [Mass/Vol] 32.4 g/dL Normal 29.9-35.2 [facility] Comment on above: Performed By: #### C MP, BNP #### [facility] [address] [place] [address] Dr. Raymond Walsh MCV (RBC) [Entitic vol] 93.8 fL Normal 80.0-94.0 [facility] Comment on above: Performed By: #### C MP, BNP #### [facility] [address] [place] [address] Dr. Ramyond Walsh MONO # 1.1 103/ul Critically high 0.3-0.8 [facility] Comment on above: Performed By: #### C MP, BNP #### [facility] [address] [place] [address] Dr. Raymond Walsh Monocytes/100 WBC (Bld) 7.5 % Normal 1.7-12.0 [facility] Comment on above: Performed By: #### C MP, BNP #### [facility] [address] [place] [address] Dr. Raymond Walsh NEUT # 10.3 103/ul Critically high 1.4-6.5 [facility] Comment on above: Performed By: #### C MP, BNP #### [facility] [address] [place] [address] Dr. Raymond Walsh Neutrophils/100 WBC (Bld) 73.0 % Normal 43.0-75.0 [facility] Comment on above: Performed By: #### C MP, BNP #### [facility] [address] [place] [address] Dr. Raymond Walsh Platelet mean volume (Bld) [Entitic vol] 9.8 fL Normal 9.5-13.5 [facility] Comment on above: Performed By: #### C MP, BNP #### [facility] [address] [place] [address] Dr. Raymond Walsh PLT 273 103/ul Normal 150-450 [facility] Comment on above: Performed By: #### C MP, BNP #### [facility] [address] [address] [address] Raymond Walsh RBC 5.50 106/ul Normal 4.70-6.10 [facility] Comment on above: Performed By: #### C MP, BNP #### [facility] [address] [address] [address] Raymond Walsh WBC 14.1 103/ul Critically high 4.0-11.0 [facility] Comment on above: Performed By: #### C MP, BNP #### [facility] [address] [address] [address] Raymond Walsh BASO # 0.0 103/ul Normal 0.0-0.1 [facility] Comment on above: Performed By: #### C MP, BNP #### [facility] [address] [place] [address] Dr. Raymond Walsh Basophils/100 WBC (Bld) 0.2 % Normal 0.2-2.0 [facility] Comment on above: Performed By: #### C MP, BNP #### [facility] [address] [place] [address] Dr. Raymond Walsh EO # 0.0 103/ul Normal 0.0-0.7 [facility] Comment on above: Performed By: #### C MP, BNP #### [facility] [address] [place] [address] Dr. Raymond Walsh Eosinophils/100 WBC (Bld) 0.0 % Critically low 0.9-7.0 [facility] Comment on above: Performed By: #### C MP, BNP #### [facility] [address] [place] [address] Dr. Raymond Walsh Erythrocyte distribution width (RBC) [Ratio] 15.3 % Critically high 11.0-15.0 [facility] Comment on above: Performed By: #### C MP, BNP #### [facility] [address] [place] [address] Dr. Raymond Walsh Hematocrit (Bld) [Volume fraction] 49.6 % Normal 42.0-54.0 [facility] Comment on above: Performed By: #### C MP, BNP #### [facility] [address] [address] [address] Raymond Walsh Hemoglobin (Bld) [Mass/Vol] 16.4 g/dL Normal 14.0-18.0 [facility] Comment on above: Performed By: #### C MP, BNP #### [facility] [address] [address] [address] Raymond Walsh IG # 0.23 10e3/ul Critically high 0.00-0.03 [facility] Comment on above: Performed By: #### C MP, BNP #### [facility] [address] [place] [address] Dr. Raymond Walsh IG % 1.8 % Critically high 0.0-0.5 [facility] Comment on above: Performed By: #### C MP, BNP #### [facility] [address] [place] [address] Dr. Raymond Walsh LYMPH # 1.2 103/ul Normal 1.2-3.8 [facility] Comment on above: Performed By: #### C MP, BNP #### [facility] [address] [place] [address] Dr. Raymond Walsh Lymphocytes/100 WBC (Bld) 9.0 % Critically low 20.5-60.0 [facility] Comment on above: Performed By: #### C MP, BNP #### [facility] [address] [place] [address] Dr. Raymond Walsh MANUAL DIFF REQ NO Normal [facility] Comment on above: Performed By: #### C MP, BNP #### [facility] [address] [place] [address] Dr. Raymond Walsh MCH (RBC) [Entitic mass] 30.4 pg Normal 25.9-34.0 [facility] Comment on above: Performed By: #### C MP, BNP #### [facility] [address] [place] [address] Dr. Raymond Walsh MCHC (RBC) [Mass/Vol] 33.1 g/dL Normal 29.9-35.2 [facility] Comment on above: Performed By: #### C MP, BNP #### [facility] [address] [address] [address] Raymond Walsh MCV (RBC) [Entitic vol] 91.9 fL Normal 80.0-94.0 [facility] Comment on above: Performed By: #### C MP, BNP #### [facility] [address] [place] [address] Dr. Raymond Walsh MONO # 0.3 103/ul Normal 0.3-0.8 [facility] Comment on above: Performed By: #### C MP, BNP #### [facility] [address] [place] [address] Dr. Raymond Walsh Monocytes/100 WBC (Bld) 2.5 % Normal 1.7-12.0 [facility] Comment on above: Performed By: #### C MP, BNP #### [facility] [address] [place] [address] Dr. Raymond Walsh NEUT # 11.3 103/ul Critically high 1.4-6.5 [facility] Comment on above: Performed By: #### C MP, BNP #### [facility] [address] [place] [address] Dr. Raymond Walsh Neutrophils/100 WBC (Bld) 86.5 % Critically high 43.0-75.0 [facility] Comment on above: Performed By: #### C MP, BNP #### [facility] [address] [place] [address] Dr. Raymond Walsh Platelet mean volume (Bld) [Entitic vol] 9.7 fL Normal 9.5-13.5 [facility] Comment on above: Performed By: #### C MP, BNP #### [facility] [address] [place] [address] Dr. Raymond Walsh PLT 278 103/ul Normal 150-450 [facility] Comment on above: Performed By: #### C MP, BNP #### [facility] [address] [place] [address] Dr. Raymond Walsh RBC 5.40 106/ul Normal 4.70-6.10 [facility] Comment on above: Performed By: #### C MP, BNP #### [facility] [address] [address] [address] Raymond Walsh WBC 13.0 103/ul Critically high 4.0-11.0 [facility] Comment on above: Performed By: #### C MP, BNP #### [facility] [address] [address] [address] Raymond Walsh CULTURE SPUTUMon 06-26-2022 CULTURE SPUTUM Culture Observations : NORMAL RESPIRATORY GEOVANNA. Normal [facility] Comment on above: Performed By: #### P OCGLUC #### [facility] [address] [address] [address] Raymond Walsh CULTURE URINEon 06-26-2022 CULTURE URINE Culture Observations : NO GROWTH. Normal [facility] Comment on above: Performed By: #### P OCGLUC #### [facility] [address] [address] [address] Raymond Walsh [facility] SARS-CoV-2 (COVID-19) RNA ZACHARIAH+probe Ql (Unsp spec) Not detected Normal NOT DETECTED [facility] Comment on above: Result Comment: When diagnostic [...] for this test is supported by the [employer] of [employer] and Human Service's declaration that [...] Performed By: #### C MP, BNP #### [facility] [address] [address] [address] Raymond AGUILAR URINE PROFILEon 2 Bilirubin Ql (U) Negative Normal NEGATIVE [facility] Comment on above: Performed By: #### S PUTGS #### [facility] [address] [place] [address] Dr. Raymond Walsh Clarity (U) CLEAR Normal CLEAR [facility] Comment on above: Performed By: #### S PUTGS #### [facility] [address] [place] [address] Dr. Raymond Walsh Color (U) YELLOW Normal YELLOW [facility] Comment on above: Performed By: #### S PUTGS #### [facility] [address] [place] [address] Dr. Raymond ALVAREZ A micrscopic examination will be performed if indicated. Normal [facility] Comment on above: Performed By: #### S PUTGS #### [facility] [address] [place] [address] Dr. Raymond Walsh Glucose Ql (U) Negative Normal NEGATIVE [facility] Comment on above: Performed By: #### S PUTGS #### [facility] [address] [place] [address] Dr. Raymond Walsh Hemoglobin Ql (U) Negative Normal NEGATIVE [facility] Comment on above: Performed By: #### S PUTGS #### [facility] [address] [place] [address] Dr. Raymond Walsh Ketones Ql (U) 15 mg/dl Abnormal NEGATIVE [facility] Comment on above: Performed By: #### S PUTGS #### [facility] [address] [place] [address] Dr. Raymond Walsh LEUKOCYTES Negative Normal NEGATIVE [facility] Comment on above: Performed By: #### S PUTGS #### [facility] [address] [place] [address] Dr. Raymond Walsh Nitrite Ql (U) Negative Normal NEGATIVE [facility] Comment on above: Performed By: #### S PUTGS #### [facility] [address] [place] [address] Dr. Raymond Walsh pH (U) 8.0 [pH] Normal 5-9 [facility] Comment on above: Performed By: #### S PUTGS #### [facility] [address] [place] [address] Dr. Raymond Walsh SPEC GRAVITY 1.015 Normal 1.005-<=1.02 5 [facility] Comment on above: Performed By: #### S PUTGS #### [facility] [address] [place] [address] Dr. Raymond Walsh UA PROTEIN Negative Normal NEGATIVE/ TRACE [facility] Comment on above: Performed By: #### S PUTGS #### [facility] [address] [place] [address] Dr. Raymond Walsh UR MICRO IND NOT INDICATED Normal [facility] Comment on above: Performed By: #### S PUTGS #### [facility] [address] [place] [address] Dr. Raymond Walsh Urobilinogen Qn (U) 4 {Flower'U}/dL Abnormal 0.2 - 1.0 [facility] Comment on above: Performed By: #### S PUTGS #### [facility] [address] [place] [address] Dr. Raymond Walsh LACTATE/LACTIC ACIDon 2021 Lactate [Moles/Vol] 1.8 mmol/L Normal 0.4-1.9 [facility] Comment on above: Performed By: #### C BC #### [facility] [address] [place] [address] Dr. Raymond Walsh POINT OF CARE GLUCOSEon 06-16 Glucose [Mass/Vol] 180 mg/dL Critically high 74-106 [facility] Comment on above: Performed By: #### C MP, BNP #### [facility] [address] [place] [address] Dr. Raymond Walsh Glucose [Mass/Vol] 184 mg/dL Critically high 74-106 [facility] Comment on above: Performed By: #### P OCGLUC #### [facility] [address] [place] [address] Dr. Raymond Walsh Glucose [Mass/Vol] 132 mg/dL Critically high 74-106 [facility] Comment on above: Performed By: #### C MP, BNP #### [facility] [address] [place] [address] Dr. Raymond Walsh PROF 14(COMP METB)on 022 Albumin [Mass/Vol] 3.9 g/dL Normal 3.4-5.0 [facility] Comment on above: Performed By: #### C MP, BNP #### [facility] [address] [place] [address] Dr. Raymond Walsh Albumin/Globulin [Mass ratio] 0.9 {ratio} Normal [facility] Comment on above: Performed By: #### C MP, BNP #### [facility] [address] [place] [address] Dr. Raymond Walsh ALP [Catalytic activity/Vol] 127 U/L Critically high 46-116 [facility] Comment on above: Performed By: #### C MP, BNP #### [facility] [address] [place] [address] Dr. Raymond Walsh ALT [Catalytic activity/Vol] 66 U/L Critically high 16-63 [facility] Comment on above: Performed By: #### C MP, BNP #### [facility] [address] [place] [address] Dr. Raymond Walsh Anion gap [Moles/Vol] 13.5 mmol/L Normal [facility] Comment on above: Performed By: #### C MP, BNP #### [facility] [address] [place] [address] Dr. Raymond Walsh AST [Catalytic activity/Vol] 33 U/L Normal 15-37 [facility] Comment on above: Performed By: #### C MP, BNP #### [facility] [address] [place] [address] Dr. Raymond Walsh Bilirubin [Mass/Vol] 0.6 mg/dL Normal 0.2-1.0 [facility] Comment on above: Performed By: #### C MP, BNP #### [facility] [address] [place] [address] Dr. Raymond Walsh Calcium [Mass/Vol] 10.5 mg/dL Critically high 8.5-10.1 [facility] Comment on above: Performed By: #### C MP, BNP #### [facility] [address] [place] [address] Dr. Raymond Walsh Chloride [Moles/Vol] 91 mmol/L Critically low 98-107 [facility] Comment on above: Performed By: #### C MP, BNP #### [facility] [address] [place] [address] Dr. Raymond Walsh CO2 [Moles/Vol] 34.8 mmol/L Critically high 21.0-32.0 [facility] Comment on above: Performed By: #### C MP, BNP #### [facility] [address] [place] [address] Dr. Raymond Walsh Creatinine [Mass/Vol] 1.17 mg/dL Normal 0.70-1.30 [facility] Comment on above: Performed By: #### C MP, BNP #### [facility] [address] [place] [address] Dr. Raymond Walsh EGFR-AF BURMESE >60 Normal >=60 [facility] Comment on above: Performed By: #### C MP, BNP #### [facility] [address] [place] [address] Dr. Raymond Walsh EGFR-NON AF BURMESE >60 Normal >=60 [facility] Comment on above: Performed By: #### C MP, BNP #### [facility] [address] [place] [address] Dr. Raymond Walsh Globulin (S) [Mass/Vol] 4.3 g/dL Normal [facility] Comment on above: Performed By: #### C MP, BNP #### [facility] [address] [place] [address] Dr. Raymond Walsh Glucose [Mass/Vol] 88 mg/dL Normal 74-106 [facility] Comment on above: Performed By: #### C MP, BNP #### [facility] [address] [place] [address] Dr. Raymond Walsh Potassium [Moles/Vol] 5.3 mmol/L Critically high 3.5-5.1 [facility] Comment on above: Performed By: #### C MP, BNP #### [facility] [address] [place] [address] Dr. Raymond Walsh Protein [Mass/Vol] 8.2 g/dL Normal 6.4-8.2 [facility] Comment on above: Performed By: #### C MP, BNP #### [facility] [address] [place] [address] Dr. Raymond Walsh Sodium [Moles/Vol] 134 mmol/L Critically low 136-145 [facility] Comment on above: Performed By: #### C MP, BNP #### [facility] [address] [place] [address] Dr. Raymond Walsh Urea nitrogen [Mass/Vol] 60.0 mg/dL Critically high 7.0-18.0 [facility] Comment on above: Performed By: #### C MP, BNP #### [facility] [address] [place] [address] Dr. Raymond Walsh Urea nitrogen/Creatinine [Mass ratio] 51.3 mg/mg Normal [facility] Comment on above: Performed By: #### C MP, BNP #### [facility] [address] [place] [address] Dr. Raymond Walsh Albumin [Mass/Vol] 3.9 g/dL Normal 3.4-5.0 [facility] Comment on above: Performed By: #### C VDTBH #### [facility] [address] [place] [address] Dr. Raymond Walsh Albumin/Globulin [Mass ratio] 1.0 {ratio} Normal [facility] Comment on above: Performed By: #### C VDTBH #### [facility] [address] [place] [address] Dr. Raymond Walsh ALP [Catalytic activity/Vol] 129 U/L Critically high 46-116 [facility] Comment on above: Performed By: #### C VDTBH #### [facility] [address] [place] [address] Dr. Raymond Walsh ALT [Catalytic activity/Vol] 66 U/L Critically high 16-63 [facility] Comment on above: Performed By: #### C VDTBH #### [facility] [address] [address] [address] Raymond Walsh Anion gap [Moles/Vol] 14.7 mmol/L Normal Th e [facility] Comment on above: Performed By: #### C VDTBH #### [facility] [address] [address] [address] Raymond Walsh AST [Catalytic activity/Vol] 30 U/L Normal 15-37 [facility] Comment on above: Performed By: #### C VDTBH #### [facility] [address] [place] [address] Dr. Raymond Walsh Bilirubin [Mass/Vol] 0.7 mg/dL Normal 0.2-1.0 [facility] Comment on above: Performed By: #### C VDTBH #### [facility] [address] [place] [address] Dr. Raymond Walsh Calcium [Mass/Vol] 10.2 mg/dL Critically high 8.5-10.1 [facility] Comment on above: Performed By: #### C VDTBH #### [facility] [address] [place] [address] Dr. Raymond Walsh Chloride [Moles/Vol] 87 mmol/L Critically low 98-107 [facility] Comment on above: Performed By: #### C VDTBH #### [facility] [address] [place] [address] Dr. Raymond Walsh CO2 [Moles/Vol] 31.3 mmol/L Normal 21.0-32.0 [facility] Comment on above: Performed By: #### C VDTBH #### [facility] [address] [place] [address] Dr. Raymond Walsh Creatinine [Mass/Vol] 1.40 mg/dL Critically high 0.70-1.30 [facility] Comment on above: Performed By: #### C VDTBH #### [facility] [address] [address] [address] Raymond Walsh EGFR-AF BURMESE >60 Normal >=60 [facility] Comment on above: Performed By: #### C VDTBH #### [facility] [address] [address] [address] Raymond Walsh EGFR-NON AF BURMESE 51 mL/min/1.73m2 Critically low >=60 [facility] Comment on above: Performed By: #### C VDTBH #### [facility] [address] [address] [address] Raymond Walsh Globulin (S) [Mass/Vol] 4.1 g/dL Normal [facility] Comment on above: Performed By: #### C VDTBH #### [facility] [address] [place] [address] Dr. Raymond Walsh Glucose [Mass/Vol] 284 mg/dL Critically high 74-[address] [facility] Comment on above: Performed By: #### C VDTBH #### [facility] [address] [address] [address] Raymond Walsh Potassium [Moles/Vol] 6.0 mmol/L Critically high 3.5-5.1 [facility] Comment on above: Performed By: #### C VDTBH #### [facility] [address] [place] [address] Dr. Raymond Walsh Protein [Mass/Vol] 8.0 g/dL Normal 6.4-8.2 [facility] Comment on above: Performed By: #### C VDTBH #### [facility] [address] [place] [address] Dr. Raymond Walsh Sodium [Moles/Vol] 127 mmol/L Critically low 136-145 [facility] Comment on above: Performed By: #### C VDTBH #### [facility] [address] [place] [address] Dr. Raymond Walsh Urea nitrogen [Mass/Vol] 60.0 mg/dL Critically high 7.0-18.0 [facility] Comment on above: Performed By: #### C VDTBH #### [facility] [address] [address] [address] Raymond Walsh Urea nitrogen/Creatinine [Mass ratio] 42.9 mg/mg Normal [facility] Comment on above: Performed By: #### C VDTBH #### [facility] [address] [address] [address] Raymond Walsh SPUTUM GRAM STAINon 06-26-20 COMMENTS Normal [facility] Comment on above: Performed By: #### S PUTGS #### [facility] [address] [address] [address] Raymond Walsh DIPHTHEROIDS Normal [facility] Comment on above: Performed By: #### S PUTGS #### [facility] [address] [address] [address] Raymond Walsh EPITHELIALS <25 [facility] Comment on above: Performed By: #### S PUTGS #### [facility] [address] [address] [address] Raymond Walsh FUNGAL ELEMENTS Normal [facility] Comment on above: Performed By: #### S PUTGS #### [facility] [address] [address] [address] Raymond Walsh GRAM NEG BACILLI Normal [facility] Comment on above: Performed By: #### S PUTGS #### [facility] [address] [address] [address] Raymond Walsh GRAM NEG DIPPLOCOCCI Normal [facility] Comment on above: Performed By: #### S PUTGS #### [facility] [address] [address] [address] Raymond Walsh GRAM POS BACILLI Normal [facility] Comment on above: Performed By: #### S PUTGS #### [facility] [address] [address] [address] Raymond Walsh GRAM POSITIVE COCCI MANY Normal [facility] Comment on above: Performed By: #### S PUTGS #### [facility] [address] [address] [address] Raymond Walsh WBC (Bld) [#/Vol] 10*3/uL Normal [facility] Comment on above: Performed By: #### S PUTGS #### [facility] [address] [address] [address] Raymond Walsh XR CHEST 1 Von [...] by: GUERITA MAJOR Date: 2022-06-25 23:21 Normal [facility] Abstracton 06-22-2022 Abstract [id number] Evgeny Delgado 1955 M Date Provider Department Center 06/22/2022 NITA BULL [facility] Family History Problem Relation Age of Onset Other Father Family Status - Relation Status Age at Father Normal [facility] XR CHEST 2 Von 06-22-2022 XR CHEST [...] by: NAIMA VANEGAS Date: 2022-06-22 18:32 Normal [facility] PROF CHEM 8 (BAS METB)on Anion gap [Moles/Vol] 12.1 mmol/L Normal [facility] Comment on above: Performed By: #### P OCGLUC #### [facility] [address] [address] [address] Raymond Walsh Calcium [Mass/Vol] 9.9 mg/dL Normal 8.5-10.1 [facility] Comment on above: Performed By: #### P OCGLUC #### [facility] [address] [address] [address] Raymond Walsh Chloride [Moles/Vol] 90 mmol/L Critically low 98-107 [facility] Comment on above: Performed By: #### P OCGLUC #### [facility] [address] [address] [address] Raymond Walsh CO2 [Moles/Vol] 37.6 mmol/L Critically high 21.0-32.0 [facility] Comment on above: Performed By: #### P OCGLUC #### [facility] [address] [address] [address] Raymond Walsh Creatinine [Mass/Vol] 1.19 mg/dL Normal 0.70-1.30 [facility] Comment on above: Performed By: #### P OCGLUC #### [facility] [address] [address] [address] Raymond Walsh EGFR-AF BURMESE >60 Normal >=60 [facility] Comment on above: Performed By: #### P OCGLUC #### [facility] [address] [address] [address] Raymond Walsh EGFR-NON AF BURMESE >60 Normal >=60 [facility] Comment on above: Performed By: #### P OCGLUC #### [facility] [address] [address] [address] Raymond Walsh Glucose [Mass/Vol] 141 mg/dL Critically high 74-106 [facility] Comment on above: Performed By: #### P OCGLUC #### [facility] [address] [address] [address] Raymond Walsh Potassium [Moles/Vol] 4.7 mmol/L Normal 3.5-5.1 [facility] Comment on above: Performed By: #### P OCGLUC #### [facility] [address] [address] [address] Raymond Walsh Sodium [Moles/Vol] 135 mmol/L Critically low 136-145 [facility] Comment on above: Performed By: #### P OCGLUC #### [facility] [address] [address] [address] Raymond Walsh Urea nitrogen [Mass/Vol] 41.0 mg/dL Critically high 7.0-18.0 [facility] Comment on above: Performed By: #### P OCGLUC #### [facility] [address] [address] [address] Raymond Walsh Urea nitrogen/Creatinine [Mass ratio] 34.5 mg/mg Normal [facility] Comment on above: Performed By: #### P OCGLUC #### [facility] [address] [address] [address] Raymond Walsh BASIC METABOLIC PANELon 05-16 Calcium [Mass/Vol] 8.6 mg/dL Normal 8.6-10.3 [facility] Comment on above: Order Comment: No: D o not add to previous draw Performed By: #### 5 [id number] #### [facility] [address] [place] [address], [place] Chloride [Moles/Vol] 89 mmol/L Low 98-107 [facility] Comment on above: Order Comment: No: D o not add to previous draw Performed By: #### 5 0608 #### [facility] [address] [place] [address], [place] CO2 [Moles/Vol] 42 mmol/L High 21-31 [facility] Comment on above: Order Comment: No: D o not add to previous draw Performed By: #### 5 0608 #### [facility] [address] [place] [address], [place] Creatinine [Mass/Vol] 0.66 mg/dL Low 0.70-1.30 [facility] Comment on above: Order Comment: No: D o not add to previous draw Performed By: #### 5 0608 #### [facility] [address] [place] [address], [place] GFR/1.73 sq M.predicted among non-blacks MDRD (S/P/Bld) [Vol rate/Area] mL/min/{1.73_m2} Normal >60 [facility] Comment on above: Order Comment: No: D o not add to previous draw Result Comment: [facility]'s estimated glomerular filtration rate (eGFR) will no [...] individuals. Performed By: #### 5 0608 #### [facility] [address] [place] [address], [facility] Glucose [Mass/Vol] 116 mg/dL High 70-100 [facility] Comment on above: Order Comment: No: D o not add to previous draw Performed By: #### 5 0608 #### [facility] [address] [place] [address], [facility] Potassium [Moles/Vol] 4.0 mmol/L Normal 3.5-5.1 [facility] Comment on above: Order Comment: No: D o not add to previous draw Performed By: #### 5 0608 #### [facility] [address] [place] [address], [place] Sodium [Moles/Vol] 136 mmol/L Normal 136-145 [facility] Comment on above: Order Comment: No: D o not add to previous draw Performed By: #### 5 0608 #### [facility] [address] [place] [address], [facility] Urea nitrogen [Mass/Vol] 33 mg/dL High 7-25 [facility] Comment on above: Order Comment: No: D o not add to previous draw Performed By: #### 5 0608 #### [facility] [address] [place] [address], [facility] CBC COMPLETE BLOOD COUNTon 0 05-26-2022 Erythrocyte distribution width (RBC) [Ratio] 14.5 % Normal 11.5-15.0 [facility] Comment on above: Order Comment: If no t done in ED No: Do not add to previous draw Performed By: #### 4 [id number], [id number] #### [facility] [address] [place] [address], [facility] Hematocrit (Bld) [Volume fraction] 47.7 % Normal 39.0-50.0 [facility] Comment on above: Order Comment: If no t done in ED No: Do not add to previous draw Performed By: #### 4 [id number], [id number] #### [facility] [address] [place] [address], [facility] Hemoglobin (Bld) [Mass/Vol] 14.3 g/dL Normal 13.0-17.0 [facility] Comment on above: Order Comment: If no t done in ED No: Do not add to previous draw Performed By: #### 4 [id number], [id number] #### [facility] [address] [place] [address], [facility] MCH (RBC) [Entitic mass] 29.5 pg Normal 27.0-33.0 [facility] Comment on above: Order Comment: If no t done in ED No: Do not add to previous draw Performed By: #### 4 [id number], [id number] #### [facility] [address] [place] [address], [place] MCHC (RBC) [Mass/Vol] 30.0 g/dL Low 32.0-35.0 [facility] Comment on above: Order Comment: If no t done in ED No: Do not add to previous draw Performed By: #### 4 [id number], [id number] #### [facility] [address] [place] [address], [facility] MCV (RBC) [Entitic vol] 98.6 fL High 82.0-98.0 [facility] Comment on above: Order Comment: If no t done in ED No: Do not add to previous draw Performed By: #### 4 [id number], [id number] #### [facility] [address] [place] [id number], [facility] Nucleated RBC/100 WBC (Bld) [Ratio] 0 % Normal 0-0 [facility] Comment on above: Order Comment: If no t done in ED No: Do not add to previous draw Performed By: #### 4 [id number], [id number] #### [facility] [address] [place] [address], [facility] PLAT CNT 185 10*3/uL Normal 150-400 [facility] Comment on above: Order Comment: If no t done in ED No: Do not add to previous draw Performed By: #### 4 [id number], [id number] #### [facility] [address] [place] [address], [facility] RBC (Bld) [#/Vol] 4.84 10*6/uL Normal 4.20-5.70 [facility] Comment on above: Order Comment: If no t done in ED No: Do not add to previous draw Performed By: #### 4 [id number], [id number] #### [facility] [address] [place] [address], [facility] WBC (Bld) [#/Vol] 9.31 10*3/uL Normal 4.00-10.60 [facility] Comment on above: Order Comment: If no t done in ED No: Do not add to previous draw Performed By: #### 4 [id number], [id number] #### [facility] [address] [place] [id number], [facility] POC GLUCOSE LABon 05-26-2022 Glucose [Mass/Vol] 155 mg/dL High 70-100 [facility] Comment on above: Performed By: #### 0 0071 #### [facility] [address] [place] [address], [place] Glucose [Mass/Vol] 221 mg/dL High 70-100 [facility] Comment on above: Performed By: #### 4 [id number], [id number] #### [facility] [address] [place] [address], [place] Glucose [Mass/Vol] 118 mg/dL High 70-100 [facility] Comment on above: Performed By: #### 8 [id number] ####[facility] [place] [address], [facility] BASIC METABOLIC PANELon 08- Calcium [Mass/Vol] 8.7 mg/dL Normal 8.6-10.3 [facility] Comment on above: Order Comment: This order is a replacement of the rejected order with accession number [id number]. Performed By: #### 0 0071 #### [facility] [address] [place] [address], [place] Chloride [Moles/Vol] 89 mmol/L Low 98-107 [facility] Comment on above: Order Comment: This order is a replacement of the rejected order with accession number [id number]. Performed By: #### 0 0071 #### [facility] [address] [place] [address], [place] CO2 [Moles/Vol] 43 mmol/L High 21-31 [facility] Comment on above: Order Comment: This order is a replacement of the rejected order with accession number [id number]. Performed By: #### 0 0071 #### [facility] [address] [place] [address], [place] Creatinine [Mass/Vol] 0.55 mg/dL Low 0.70-1.30 [facility] Comment on above: Order Comment: This order is a replacement of the rejected order with accession number [id number]. Performed By: #### 0 0071 #### [facility] [address] [place] [address], [facility] GFR/1.73 sq M.predicted among non-blacks MDRD (S/P/Bld) [Vol rate/Area] mL/min/{1.73_m2} Normal >60 [facility] Comment on above: Order Comment: This order is a replacement of the rejected order with accession number [id number]. Result Comment: [facility]'s estimated glomerular filtration rate (eGFR) will no [...] individuals. Performed By: #### 0 0071 #### [facility] [facility] [address] [place] [address], [facility] Glucose [Mass/Vol] 117 mg/dL High 70-100 [facility] Comment on above: Order Comment: This order is a replacement of the rejected order with accession number [id number]. Performed By: #### 0 0071 #### [facility] [address] [place] [address], [facility] Potassium [Moles/Vol] 4.2 mmol/L Normal 3.5-5.1 [facility] Comment on above: Order Comment: This order is a replacement of the rejected order with accession number [id number]. Performed By: #### 0 0071 #### [facility] [address] [id number], [facility] Sodium [Moles/Vol] 137 mmol/L Normal 136-[address] Comment on above: Order Comment: This order is a replacement of the rejected order with accession number [id number]. Performed By: #### 0 0071 #### [facility] [address] [place] [address], [facility] Urea nitrogen [Mass/Vol] 24 mg/dL Normal 7-25 [facility] Comment on above: Order Comment: This order is a replacement of the rejected order with accession number [id number]. Performed By: #### 0 0071 #### [facility] [address] [place] [address], [facility] CBC COMPLETE BLOOD COUNTon 0 05-25-2022 Erythrocyte distribution width (RBC) [Ratio] 14.4 % Normal 11.5-15.0 [facility] Comment on above: Order Comment: If no t done in ED No: Do not add to previous draw Performed By: #### 4 7074, 63198 #### [facility] [address] [place] [address], [facility] Hematocrit (Bld) [Volume fraction] 48.5 % Normal 39.0-50.0 [facility] Comment on above: Order Comment: If no t done in ED No: Do not add to previous draw Performed By: #### 4 3597, 75507 #### [facility] [address] [place] [address], [place] Hemoglobin (Bld) [Mass/Vol] 14.4 g/dL Normal 13.0-17.0 [facility] Comment on above: Order Comment: If no t done in ED No: Do not add to previous draw Performed By: #### 4 0538, 35117 #### [facility] [address] [place] [address], [place] MCH (RBC) [Entitic mass] 29.5 pg Normal 27.0-33.0 [facility] Comment on above: Order Comment: If no t done in ED No: Do not add to previous draw Performed By: #### 4 1364, 80910 #### [facility] [address] [place] [address], [place] MCHC (RBC) [Mass/Vol] 29.7 g/dL Low 32.0-35.0 [facility] Comment on above: Order Comment: If no t done in ED No: Do not add to previous draw Performed By: #### 4 4396, 67217 #### [facility] [address] [place] [id number], [facility] MCV (RBC) [Entitic vol] 99.4 fL High 82.0-98.0 [facility] Comment on above: Order Comment: If no t done in ED No: Do not add to previous draw Performed By: #### 4 4396, 83291 #### [facility] [address] [place] [address], [facility] Nucleated RBC/100 WBC (Bld) [Ratio] 0 % Normal 0-0 [facility] Comment on above: Order Comment: If no t done in ED No: Do not add to previous draw Performed By: #### 4 4396, 22346 #### [facility] [address] [place] [address], [facility] PLAT CNT 190 10*3/uL Normal 150-400 The [facility] Comment on above: Order Comment: If no t done in ED No: Do not add to previous draw Performed By: #### 4 4396, 21851 #### [facility] [address] [place] [address], [facility] RBC (Bld) [#/Vol] 4.88 10*6/uL Normal 4.20-5.70 The [facility] Comment on above: Order Comment: If no t done in ED No: Do not add to previous draw Performed By: #### 4 4396, 40289 #### [facility] [address] [place] [id number], [place] WBC (Bld) [#/Vol] 9.95 10*3/uL Normal 4.00-10.60 The [facility] Comment on above: Order Comment: If no t done in ED No: Do not add to previous draw Performed By: #### 4 4396, 19308 #### [facility] [address] [place] [address], [facility] Cardiovascular Lab Reporton 05-25-2022 Cardiovascular Lab Report [facility] MR #: [id number] Department of Physician: Seun Lowe M.D. Division of Service Date: 05/24/2022 Cardiology Birthdate: 1955 Adult Cardiovascular Room #: 3AB 527022 Services [facility] [address] [place], [place] [address] Cardiovascular Laboratory Report FINAL IMPRESSION: 1. Quwu-[id number] three-vessel coronary artery disease. 2. Mildly reduced [...] right common femoral artery was obtained. A 6-Emirati 11 cm sheath was inserted without difficulty. Angiography via the inner cannula of the sheaths had been performed prior to upsizing. This was repeated over the vein. A 6-Emirati 11 cm sheath was advanced in. A [...] P/Anuj Gracia M.D. Date Trans: 05/25/2022 03:41 A/mmo [id number] cc: Chirag Ragsdale [facility] [address] George Nieto M.D. [address] [place] [id number] Normal [facility] POC GLUCOSE LABon 05-25-2022 Glucose [Mass/Vol] 185 mg/dL High 70-100 [facility] Comment on above: Performed By: #### 8 5499 ####[facility] [place] [address], [place] Glucose [Mass/Vol] 184 mg/dL High 70-100 [facility] Comment on above: Performed By: #### 5 0608 #### [facility] [address] [place] [address], [place] Glucose [Mass/Vol] 171 mg/dL High 70-100 [facility] Comment on above: Performed By: #### 8 5499 ####[facility] [place] [place] [address], [place] Glucose [Mass/Vol] 123 mg/dL High 70-100 [facility] Comment on above: Performed By: #### 0 0071 #### [facility] [address] [place] [address], [place] BASIC METABOLIC PANELon Calcium [Mass/Vol] 9.0 mg/dL Normal 8.6-10.3 [facility] Comment on above: Order Comment: No: D o not add to previous draw Performed By: #### 0 0071, 54516 #### [facility] [address] [place] [address], [place] Chloride [Moles/Vol] 90 mmol/L Low 98-107 [facility] Comment on above: Order Comment: No: D o not add to previous draw Performed By: #### 0 0071, 96317 #### [facility] [address] [place] [address], [facility] CO2 [Moles/Vol] 43 mmol/L High 21-31 [facility] Comment on above: Order Comment: No: D o not add to previous draw Performed By: #### 0 0071, 84574 #### [facility] [address] [place] [address], [facility] Creatinine [Mass/Vol] 0.51 mg/dL Low 0.70-1.30 [facility] Comment on above: Order Comment: No: D o not add to previous draw Performed By: #### 0 0071, 82261 #### [facility] [address] [place] [address], [facility] GFR/1.73 sq M.predicted among non-blacks MDRD (S/P/Bld) [Vol rate/Area] mL/min/{1.73_m2} Normal >60 [facility] Comment on above: Order Comment: No: D o not add to previous draw Result Comment: [facility]'s estimated glomerular filtration rate (eGFR) will no [...] of individuals. Performed By: #### 0 0071, 53117 #### [facility] [address] [place] [address], [facility] Glucose [Mass/Vol] 104 mg/dL High 70-100 [facility] Comment on above: Order Comment: No: D o not add to previous draw Performed By: #### 0 0071, 93225 #### [facility] [address] Potassium [Moles/Vol] 4.3 mmol/L Normal 3.5-5.1 [facility] Comment on above: Order Comment: No: D o not add to previous draw Performed By: #### 0 0071, 37566 #### [facility] [address] [place] [address], [facility] Sodium [Moles/Vol] 139 mmol/L Normal 136-145 [facility] Comment on above: Order Comment: No: D o not add to previous draw Performed By: #### 0 0071, 36707 #### [facility] [address] Urea nitrogen [Mass/Vol] 28 mg/dL High 7-25 [facility] Comment on above: Order Comment: No: D o not add to previous draw Performed By: #### 0 0071, 56926 #### [facility] [address] [place] [address], [facility] CBC W/DIFFon 05-24-2022 ABS IMM GRANS 0.1 10*3/uL Normal 0.0-0.2 The [facility] Comment on above: Order Comment: No: D o not add to previous draw Performed By: #### 5 3 #### [facility] [address] [place] [address], [facility] ABS NEUTROPHILS 6.9 10*3/uL Normal 1.6-7.6 The [facility] Comment on above: Order Comment: No: D o not add to previous draw Performed By: #### 5 0103 #### [facility] [address] [place] [address], [facility] Basophils (Bld) [#/Vol] 0.0 10*3/uL Normal 0.0-0.2 [facility] Comment on above: Order Comment: No: D o not add to previous draw Performed By: #### 5 0103 #### [facility] [address] [place] [address], [facility] Basophils/100 WBC (Bld) 0.4 % Normal 0.0-1.0 [facility] Comment on above: Order Comment: No: D o not add to previous draw Performed By: #### 5 0103 #### [facility] [address] [place] [address], [facility] Eosinophils (Bld) [#/Vol] 0.2 10*3/uL Normal 0.0-0.5 [facility] Comment on above: Order Comment: No: D o not add to previous draw Performed By: #### 5 3 #### [facility] [address] [place] [address], [facility] Eosinophils/100 WBC (Bld) 1.6 % Normal 0.0-6.0 [facility] Comment on above: Order Comment: No: D o not add to previous draw Performed By: #### 5 3 #### [facility] [address] [place] [address], [facility] Erythrocyte distribution width (RBC) [Ratio] 14.8 % Normal 11.5-15.0 [facility] Comment on above: Order Comment: No: D o not add to previous draw Performed By: #### 5 3 #### [facility] [address] [place] [address], [facility] Hematocrit (Bld) [Volume fraction] 48.9 % Normal 39.0-50.0 [facility] Comment on above: Order Comment: No: D o not add to previous draw Performed By: #### 5 0103 #### [facility] [address] [place] [address], [facility] Hemoglobin (Bld) [Mass/Vol] 14.6 g/dL Normal 13.0-17.0 [facility] Comment on above: Order Comment: No: D o not add to previous draw Performed By: #### 5 3 #### [facility] [address] [place] [address], [facility] IMMATURE GRANS 0.5 % Normal 0.0-1.0 [facility] Comment on above: Order Comment: No: D o not add to previous draw Performed By: #### 5 0103 #### [facility] [address] [place] [id number], [facility] Lymphocytes (Bld) [#/Vol] 1.5 10*3/uL Normal 1.2-4.0 [facility] Comment on above: Order Comment: No: D o not add to previous draw Performed By: #### 5 0103 #### [facility] [address] [facility] [place] [place] [address], [facility] Lymphocytes/100 WBC (Bld) 16.2 % Low 20.0-45.0 [facility] Comment on above: Order Comment: No: D o not add to previous draw Performed By: #### 5 0103 #### [facility] [address] [place] [place] [address], [facility] MCH (RBC) [Entitic mass] 29.4 pg Normal 27.0-33.0 [facility] Comment on above: Order Comment: No: D o not add to previous draw Performed By: #### 5 0103 #### [facility] [address] [place] [id number], [facility] MCHC (RBC) [Mass/Vol] 29.9 g/dL Low 32.0-35.0 [facility] Comment on above: Order Comment: No: D o not add to previous draw Performed By: #### 5 0103 #### [facility] [address] [place] [address], [facility] MCV (RBC) [Entitic vol] 98.4 fL High 82.0-98.0 [facility] Comment on above: Order Comment: No: D o not add to previous draw Performed By: #### 5 0103 #### [facility] [address] [place] [address], [facility] Monocytes (Bld) [#/Vol] 0.7 10*3/uL Normal 0.1-1.0 [facility] Comment on above: Order Comment: No: D o not add to previous draw Performed By: #### 5 0103 #### [facility] [address] [place] [address], [facility] MONOS 7.6 % Normal 5.0-12.0 [facility] Comment on above: Order Comment: No: D o not add to previous draw Performed By: #### 5 0103 #### [facility] [address] [place] [id number], [facility] Neutrophils/100 WBC (Bld) 73.7 % High 40.0-72.0 [facility] Comment on above: Order Comment: No: D o not add to previous draw Performed By: #### 5 0103 #### [facility] [address] [place] [id number], [facility] Nucleated RBC/100 WBC (Bld) [Ratio] 0 % Normal 0-0 [facility] Comment on above: Order Comment: No: D o not add to previous draw Performed By: #### 5 0103 #### [facility] [address] [place] [address], [place] PLAT CNT 184 10*3/uL Normal 150-400 The [facility] Comment on above: Order Comment: No: D o not add to previous draw Performed By: #### 5 0103 #### [facility] [address] [place] [address], [place] RBC (Bld) [#/Vol] 4.97 10*6/uL Normal 4.20-5.70 [facility] Comment on above: Order Comment: No: D o not add to previous draw Performed By: #### 5 0103 #### [facility] [address] [place] [address], [facility] WBC (Bld) [#/Vol] 9.37 10*3/uL Normal 4.00-10.[address] [facility] Comment on above: Order Comment: No: D o not add to previous draw Performed By: #### 5 0103 #### [facility] [address] [place] [address], [facility] MAGNESIUM BLOODon 05-24-2022 Magnesium [Mass/Vol] 1.8 mg/dL Low 1.9-2.7 [facility] Comment on above: Performed By: #### 0 0071, 76007 #### [facility] [address] [place] [address], [facility] POC GLUCOSE LABon 05-24-2022 Glucose [Mass/Vol] 156 mg/dL High 70-100 [facility] Comment on above: Performed By: #### 0 0071 #### [facility] [address] [place] [address], [facility] Glucose [Mass/Vol] 158 mg/dL High 70-100 [facility] Comment on above: Performed By: #### 0 0071 #### [facility] [address] [place] [address], [facility] Glucose [Mass/Vol] 92 mg/dL Normal 70-100 [facility] Comment on above: Performed By: #### 0 0071 #### [facility] [address] [place] [address], [facility] Glucose [Mass/Vol] 107 mg/dL High 70-100 [facility] Comment on above: Performed By: #### 0 0071 #### [facility] [address] [place] [address], [facility] BASIC METABOLIC PANELon Calcium [Mass/Vol] 9.8 mg/dL Normal 8.6-10.3 [facility] Comment on above: Order Comment: No: D o not add to previous draw Performed By: #### 0 0071, 64432 #### [facility] [address] [place] [address], [facility] Chloride [Moles/Vol] 89 mmol/L Low 98-107 [facility] Comment on above: Order Comment: No: D o not add to previous draw Performed By: #### 0 0071, 37133 #### [facility] [address] [place] [address], [facility] CO2 [Moles/Vol] 42 mmol/L High 21-31 The [facility] Comment on above: Order Comment: No: D o not add to previous draw Performed By: #### 0 0071, 33719 #### [facility] [address] [place] [address], [facility] Creatinine [Mass/Vol] 0.55 mg/dL Low 0.70-1.30 [facility] Comment on above: Order Comment: No: D o not add to previous draw Performed By: #### 0 0071, 82720 #### [facility] [address] [place] [address], [facility] GFR/1.73 sq M.predicted among non-blacks MDRD (S/P/Bld) [Vol rate/Area] mL/min/{1.73_m2} Normal >60 [facility] Comment on above: Order Comment: No: D o not add to previous draw Result Comment: [facility]'s estimated glomerular filtration rate (eGFR) will no [...] of individuals. Performed By: #### 0 0071, 85413 #### [facility] [address] [place] [address], [facility] Glucose [Mass/Vol] 132 mg/dL High 70-100 [facility] Comment on above: Order Comment: No: D o not add to previous draw Performed By: #### 0 0071, 69266 #### [facility] [address] [place] [address], [facility] Potassium [Moles/Vol] 4.4 mmol/L Normal 3.5-5.1 [facility] Comment on above: Order Comment: No: D o not add to previous draw Performed By: #### 0 0071, 14640 #### [facility] [address] [place] [address], [facility] Sodium [Moles/Vol] 139 mmol/L Normal 136-145 [facility] Comment on above: Order Comment: No: D o not add to previous draw Performed By: #### 0 0071, 00820 #### [facility] [address] [place] [address], [facility] Urea nitrogen [Mass/Vol] 24 mg/dL Normal 7-25 [facility] Comment on above: Order Comment: No: D o not add to previous draw Performed By: #### 0 0071, 32789 #### [facility] [address] [facility] [place] [address], [facility] CBC W/DIFFon 05-23-2022 ABS IMM GRANS 0.1 10*3/uL Normal 0.0-0.2 The [facility] Comment on above: Order Comment: No: D o not add to previous draw Performed By: #### 5 0608 #### [facility] [address] [place] [address], [facility] ABS NEUTROPHILS 7.8 10*3/uL High 1.6-7.6 The [facility] Comment on above: Order Comment: No: D o not add to previous draw Performed By: #### 5 0608 #### [facility] [address] [place] [address], [facility] Basophils (Bld) [#/Vol] 0.1 10*3/uL Normal 0.0-0.2 [facility] Comment on above: Order Comment: No: D o not add to previous draw Performed By: #### 5 0608 #### [facility] [address] [place] [address], [facility] Basophils/100 WBC (Bld) 0.5 % Normal 0.0-1.0 [facility] Comment on above: Order Comment: No: D o not add to previous draw Performed By: #### 5 0608 #### [facility] [address] [place] [address], [facility] Eosinophils (Bld) [#/Vol] 0.2 10*3/uL Normal 0.0-0.5 [facility] Comment on above: Order Comment: No: D o not add to previous draw Performed By: #### 5 0608 #### [facility] [address] [place] [address], [facility] Eosinophils/100 WBC (Bld) 1.5 % Normal 0.0-6.0 [facility] Comment on above: Order Comment: No: D o not add to previous draw Performed By: #### 5 0608 #### [facility] [address] [facility] [place] [address], [facility] Erythrocyte distribution width (RBC) [Ratio] 14.7 % Normal 11.5-15.0 [facility] Comment on above: Order Comment: No: D o not add to previous draw Performed By: #### 5 0608 #### [facility] [address] [place] [address], [facility] Hematocrit (Bld) [Volume fraction] 54.3 % High 39.0-50.0 [facility] Comment on above: Order Comment: No: D o not add to previous draw Performed By: #### 5 0608 #### [facility] [address] [place] [address], [facility] Hemoglobin (Bld) [Mass/Vol] 15.9 g/dL Normal 13.0-17.0 [facility] Comment on above: Order Comment: No: D o not add to previous draw Performed By: #### 5 0608 #### [facility] [address] [place] [id number], [facility] IMMATURE GRANS 0.6 % Normal 0.0-1.0 The [facility] Comment on above: Order Comment: No: D o not add to previous draw Performed By: #### 5 0608 #### [facility] [address] [facility] [place] [place] [address], [facility] Lymphocytes (Bld) [#/Vol] 2.1 10*3/uL Normal 1.2-4.0 [facility] Comment on above: Order Comment: No: D o not add to previous draw Performed By: #### 5 0608 #### [facility] [address] [facility] [place] [address], [facility] Lymphocytes/100 WBC (Bld) 18.7 % Low 20.0-45.0 [facility] Comment on above: Order Comment: No: D o not add to previous draw Performed By: #### 5 0608 #### [facility] [address] [facility] [place] [place] [address], [facility] MCH (RBC) [Entitic mass] 29.2 pg Normal 27.0-33.0 [facility] Comment on above: Order Comment: No: D o not add to previous draw Performed By: #### 5 0608 #### [facility] [address] [place] [address], [facility] MCHC (RBC) [Mass/Vol] 29.3 g/dL Low 32.0-35.0 [facility] Comment on above: Order Comment: No: D o not add to previous draw Performed By: #### 5 0608 #### [facility] [address] [place] [id number], [facility] MCV (RBC) [Entitic vol] 99.6 fL High 82.0-98.0 [facility] Comment on above: Order Comment: No: D o not add to previous draw Performed By: #### 5 [id number] #### [facility] [address] [place] [address], [facility] Monocytes (Bld) [#/Vol] 0.9 10*3/uL Normal 0.1-1.0 [facility] Comment on above: Order Comment: No: D o not add to previous draw Performed By: #### 5 [id number] #### [facility] [address] [place] [id number], [facility] MONOS 7.7 % Normal 5.0-12.0 [facility] Comment on above: Order Comment: No: D o not add to previous draw Performed By: #### 5 [id number] #### [facility] [address] [place] [id number], [facility] Neutrophils/100 WBC (Bld) 71.0 % Normal 40.0-72.0 [facility] Comment on above: Order Comment: No: D o not add to previous draw Performed By: #### 5 [id number] #### [facility] [address] [place] [id number], [facility] Nucleated RBC/100 WBC (Bld) [Ratio] 0 % Normal 0-0 [facility] Comment on above: Order Comment: No: D o not add to previous draw Performed By: #### 5 [id number] #### [facility] [address] [place] [id number], [place] PLAT CNT 209 10*3/uL Normal 150-400 [facility] Comment on above: Order Comment: No: D o not add to previous draw Performed By: #### 5 [id number] #### [facility] [address] [place] [address], [place] RBC (Bld) [#/Vol] 5.45 10*6/uL Normal 4.20-5.[address] [facility] [address] Comment on above: Order Comment: No: D o not add to previous draw Performed By: #### 5 [id number] #### [facility] [address] [place] [address], [place] WBC (Bld) [#/Vol] 10.99 10*3/uL High 4.00-10.60 [facility] Comment on above: Order Comment: No: D o not add to previous draw Performed By: #### 5 [id number] #### [facility] [address] [place] [address], [place] MAGNESIUM BLOODon 05-23-2022 Magnesium [Mass/Vol] 1.4 mg/dL Low 1.9-2.7 [facility] Comment on above: Order Comment: No: D o not add to previous draw Performed By: #### 0 [id number], [id number] #### [facility] [address] [place] [address], [place] POC GLUCOSE LABon 05-23-2022 Glucose [Mass/Vol] 180 mg/dL High 70-100 [facility] Comment on above: Performed By: #### 8 [id number] ####[facility] [place] [address], [place] Glucose [Mass/Vol] 125 mg/dL High 70-100 [facility] Comment on above: Performed By: #### 0 0071 #### [facility] [address] [place] [address], [place] Glucose [Mass/Vol] 142 mg/dL High 70-100 [facility] Comment on above: Performed By: #### 8 [id number] ####[facility] [place] [address], [place] Glucose [Mass/Vol] 123 mg/dL High 70-100 [facility] Comment on above: Performed By: #### 8 [id number] ####[facility] [place] [address], [facility] BASIC METABOLIC PANELon 08-0 Calcium [Mass/Vol] 9.1 mg/dL Normal 8.6-10.3 [facility] Comment on above: Order Comment: No: D o not add to previous draw Performed By: #### 5 [id number] #### [facility] [address] [place] [address], [facility] Chloride [Moles/Vol] 94 mmol/L Low 98-107 [facility] Comment on above: Order Comment: No: D o not add to previous draw Performed By: #### 5 [id number] #### [facility] [address] [place] [address], [facility] CO2 [Moles/Vol] 37 mmol/L High 21-31 The [facility] Comment on above: Order Comment: No: D o not add to previous draw Performed By: #### 5 [id number] #### [facility] [address] [place] [address], [facility] Creatinine [Mass/Vol] 0.52 mg/dL Low 0.70-1.30 [facility] Comment on above: Order Comment: No: D o not add to previous draw Performed By: #### 5 [id number] #### [facility] [address] [place] [address], [facility] GFR/1.73 sq M.predicted among non-blacks MDRD (S/P/Bld) [Vol rate/Area] mL/min/{1.73_m2} Normal >60 [facility] Comment on above: Order Comment: No: D o not add to previous draw Result Comment: [facility]'s estimated glomerular filtration rate (eGFR) will no [...] individuals. Performed By: #### 5 [id number] #### [facility] [address] [place] [address], [facility] Glucose [Mass/Vol] 132 mg/dL High 70-100 [facility] Comment on above: Order Comment: No: D o not add to previous draw Performed By: #### 5 [id number] #### [facility] [address] [place] [address], [facility] Potassium [Moles/Vol] 4.8 mmol/L Normal 3.5-5.1 [facility] Comment on above: Order Comment: No: D o not add to previous draw Performed By: #### 5 0608 #### [facility] [address] [place] [address], [facility] Sodium [Moles/Vol] 137 mmol/L Normal 136-145 [facility] Comment on above: Order Comment: No: D o not add to previous draw Performed By: #### 5 0608 #### [facility] [address] [place] [address], [facility] Urea nitrogen [Mass/Vol] 19 mg/dL Normal 7-25 [facility] Comment on above: Order Comment: No: D o not add to previous draw Performed By: #### 5 [id number] #### [facility] [address] [place] [address], [facility] CBC COMPLETE BLOOD COUNTon 0 05-22-2022 Erythrocyte distribution width (RBC) [Ratio] 14.8 % Normal 11.5-15.0 [facility] Comment on above: Order Comment: No: D o not add to previous draw Performed By: #### 5 [id number] #### [facility] [address] Hematocrit (Bld) [Volume fraction] 48.5 % Normal 39.0-50.0 [facility] Comment on above: Order Comment: No: D o not add to previous draw Performed By: #### 5 [id number] #### [facility] [address] [place] [address], [facility] Hemoglobin (Bld) [Mass/Vol] 14.5 g/dL Normal 13.0-17.0 [facility] Comment on above: Order Comment: No: D o not add to previous draw Performed By: #### 5 [id number] #### [facility] [address] MCH (RBC) [Entitic mass] 30.0 pg Normal 27.0-33.0 [facility] Comment on above: Order Comment: No: D o not add to previous draw Performed By: #### 5 [id number] #### [facility] [address] [facility] [address] MCHC (RBC) [Mass/Vol] 29.9 g/dL Low 32.0-35.0 [facility] Comment on above: Order Comment: No: D o not add to previous draw Performed By: #### 5 [id number] #### [facility] [address] [place] [address], [facility] MCV (RBC) [Entitic vol] 100.2 fL High 82.0-98.0 [facility] Comment on above: Order Comment: No: D o not add to previous draw Performed By: #### 5 [id number] #### [facility] [address] [place] [address], [facility] Nucleated RBC/100 WBC (Bld) [Ratio] 0 % Normal 0-0 [facility] Comment on above: Order Comment: No: D o not add to previous draw Performed By: #### 5 [id number] #### [facility] [address] PLAT CNT 161 10*3/uL Normal 150-400 [facility] Comment on above: Order Comment: No: D o not add to previous draw Performed By: #### 5 [id number] #### [facility] [address] [place] [address], [facility] RBC (Bld) [#/Vol] 4.84 10*6/uL Normal 4.20-5.70 [facility] Comment on above: Order Comment: No: D o not add to previous draw Performed By: #### 5 [id number] #### [facility] [address] [place] [address], [facility] WBC (Bld) [#/Vol] 7.91 10*3/uL Normal 4.00-10.60 [facility] Comment on above: Order Comment: No: D o not add to previous draw Performed By: #### 5 [id number] #### [facility] [address] LIPID PROFILEon 05-22-2022 Cholesterol [Mass/Vol] 118 mg/dL Low 120-200 [facility] Comment on above: Order Comment: No: D o not add to previous draw Result Comment: CHOL ESTEROL REFERENCE RANGE: 20 YEARS AND OLDER CARDIOVASCULAR RISK Less than 200 mg/dl Low Risk 200 to 239 mg/dl Borderline Risk 240 mg/dl and greater High Risk Performed By: #### 5 0608 #### [facility] [address] Cholesterol in HDL [Mass/Vol] 35 mg/dL Normal 23-92 [facility] Comment on above: Order Comment: No: D o not add to previous draw Result Comment: Slig ht variation in normal range could be due to gender and/or age. HDL CHOLESTEROL REFERENCE RANGE: 20 years and older Cardiovascular Risk > or =60 mg/dL Desirable 40 TO 59 mg/dL Low Risk <40 mg/dL High Risk Performed By: #### 5 [id number] #### [facility] [address] [place] [address], [facility] Cholesterol in LDL [Mass/Vol] 50 mg/dL Normal 0-130 [facility] Comment on above: Order Comment: No: D o not add to previous draw Result Comment: LDL IS A CALCULATION LDL IS ONLY VALID IF THE TRIG IS LESS THAN 400. Performed By: #### 5 [id number] #### [facility] [address] [place] [address], [facility] Cholesterol.total/Cho lesterol in HDL [Mass ratio] 3.4 {ratio} Normal .0-4.5 [facility] Comment on above: Order Comment: No: D o not add to previous draw Performed By: #### 5 [id number] #### [facility] [address] [facility] [place] [address], [facility] NON-HDL CHOLESTEROL 83 mg/dL Normal The [facility] Comment on above: Order Comment: No: D o not add to previous draw Performed By: #### 5 [id number] #### [facility] [address] [facility] [place] [address], [facility] Triglyceride [Mass/Vol] 164 mg/dL High 40-149 [facility] Comment on above: Order Comment: No: D o not add to previous draw Result Comment: TRIG LYCERIDE REFERENCE RANGE: 20 YEARS AND OLDER CARDIOVASCULAR RISK LESS THAN 150 mg/dl LOW RISK 150 TO 199 mg/dl BORDERLINE RISK 200 mg/dl AND GREATER HIGH RISK Performed By: #### 5 [id number] #### [facility] [address] [facility] [place] [address], [facility] VLDL CHOL 33 mg/dL Normal 0-40 [facility] Comment on above: Order Comment: No: D o not add to previous draw Performed By: #### 5 [id number] #### [facility] [address] [place] [address], [facility] MAGNESIUM BLOODon 05-22-2022 Magnesium [Mass/Vol] 1.2 mg/dL Critically low 1.9-2.7 [facility] Comment on above: Order Comment: No: D o not add to previous draw Performed By: #### 5 0608 #### [facility] [address] [place] [address], [place] PHOSPHORUS BLOODon 2 Phosphate [Mass/Vol] 3.4 mg/dL Normal 2.5-5.0 [facility] Comment on above: Order Comment: No: D o not add to previous draw Performed By: #### 5 0608 #### [facility] [address] [place] [address], [place] POC GLUCOSE LABon 05-22-2022 Glucose [Mass/Vol] 240 mg/dL High 70-100 [facility] Comment on above: Performed By: #### 0 0071 #### [facility] [address] [place] [address], [place] Glucose [Mass/Vol] 153 mg/dL High 70-100 [facility] Comment on above: Performed By: #### 8 [id number] ####[facility] [place] [address], [place] Glucose [Mass/Vol] 214 mg/dL High 70-100 [facility] Comment on above: Performed By: #### 0 0071 #### [facility] [address] [place] [address], [place] Glucose [Mass/Vol] 136 mg/dL High 70-100 [facility] Comment on above: Performed By: #### 8 [id number] ####[facility] [place] [address], [place] BNP (B-TYPE NATRIURETIC PEPT JAI)on 05-21-2022 Natriuretic peptide B (Bld) [Mass/Vol] 52 pg/mL Normal 0-100 [facility] Comment on above: Order Comment: No: D o not add to previous draw Result Comment: Give n the appropriate clinical setting a BNP result of >100 pg/mL indicates congestive heart failure. Performed By: #### 5 [id number] #### [facility] [address] [place] [address], [facility] CBC AUTO DIFFon 05-21-2022 BASO # 0.0 103/ul Normal 0.0-0.1 [facility] Comment on above: Performed By: #### P OCGLUC #### [facility] [address] [place] [address] [address] Raymond Walsh Basophils/100 WBC (Bld) 0.4 % Normal 0.2-2.0 [facility] Comment on above: Performed By: #### P OCGLUC #### [facility] [address] [place] [address] [address] Raymond Walsh EO # 0.1 103/ul Normal 0.0-0.7 [facility] Comment on above: Performed By: #### P OCGLUC #### [facility] [address] [place] [address] [address] Raymond Walsh Eosinophils/100 WBC (Bld) 1.5 % Normal 0.9-7.0 [facility] Comment on above: Performed By: #### P OCGLUC #### [facility] [address] [place] [address] [address] Raymond Walsh Erythrocyte distribution width (RBC) [Ratio] 14.6 % Normal 11.0-15.0 [facility] Comment on above: Performed By: #### P OCGLUC #### [facility] [address] [place] [address] [address] Raymond Walsh Hematocrit (Bld) [Volume fraction] 47.6 % Normal 42.0-54.0 [facility] Comment on above: Performed By: #### P OCGLUC #### [facility] [address] [place] [address] [address] Raymond Walsh Hemoglobin (Bld) [Mass/Vol] 14.2 g/dL Normal 14.0-18.0 [facility] Comment on above: Performed By: #### P OCGLUC #### [facility] [address] [address] [address] Raymond Walsh IG # 0.05 10e3/ul Critically high 0.00-0.03 [facility] Comment on above: Performed By: #### P OCGLUC #### [facility] [address] [place] [address] [address] Raymond Walsh IG % 0.6 % Critically high 0.0-0.5 [facility] Comment on above: Performed By: #### P OCGLUC #### [facility] [address] [place] [address] [address] Raymond Walsh LYMPH # 1.6 103/ul Normal 1.2-3.8 [facility] Comment on above: Performed By: #### P OCGLUC #### [facility] [address] [place] [address] [address] Raymond Walsh Lymphocytes/100 WBC (Bld) 19.9 % Critically low 20.5-60.0 [facility] Comment on above: Performed By: #### P OCGLUC #### [facility] [address] [place] [address] [address] Raymond Walsh MANUAL DIFF REQ NO Normal [facility] Comment on above: Performed By: #### P OCGLUC #### [facility] [address] [place] [address] [address] Raymond Walsh MCH (RBC) [Entitic mass] 29.6 pg Normal 25.9-34.0 [facility] Comment on above: Performed By: #### P OCGLUC #### [facility] [address] [place] [address] [address] Raymond Walsh MCHC (RBC) [Mass/Vol] 29.8 g/dL Critically low 29.9-35.2 [facility] Comment on above: Performed By: #### P OCGLUC #### [facility] [address] [place] [address] [address] Raymond Walsh MCV (RBC) [Entitic vol] 99.4 fL Critically high 80.0-94.0 [facility] Comment on above: Performed By: #### P OCGLUC #### [facility] [address] [place] [address] [address] Raymond Walsh MONO # 0.7 103/ul Normal 0.3-0.8 [facility] Comment on above: Performed By: #### P OCGLUC #### [facility] [address] [place] [address] [address] Raymond Walsh Monocytes/100 WBC (Bld) 8.1 % Normal 1.7-12.0 [facility] Comment on above: Performed By: #### P OCGLUC #### [facility] [address] [place] [address] [address] Raymond Walsh NEUT # 5.6 103/ul Normal 1.4-6.5 [facility] Comment on above: Performed By: #### P OCGLUC #### [facility] [address] [place] [address] Dr. Raymond Walsh Neutrophils/100 WBC (Bld) 69.5 % Normal 43.0-75.0 [facility] Comment on above: Performed By: #### P OCGLUC #### [facility] [address] [place] [address] Dr. Raymond Walsh Platelet mean volume (Bld) [Entitic vol] 10.5 fL Normal 9.5-13.5 [facility] Comment on above: Performed By: #### P OCGLUC #### [facility] [address] [place] [address] Dr. Raymond Walsh PLT 173 103/ul Normal 150-450 [facility] Comment on above: Performed By: #### P OCGLUC #### [facility] [address] [place] [address] Dr. Raymond Walsh RBC 4.79 106/ul Normal 4.70-6.10 [facility] Comment on above: Performed By: #### P OCGLUC #### [facility] [address] [place] [address] Dr. Raymond Walsh WBC 8.0 103/ul Normal 4.0-11.0 [facility] Comment on above: Performed By: #### P OCGLUC #### [facility] [address] [place] [address] Dr. Raymond Walsh FREE T4on 05-21-2022 Free T4 [Mass/Vol] 1.01 ng/dL Normal 0.71-1.85 [facility] Comment on above: Order Comment: If no t done in ED No: Do not add to previous draw Performed By: #### 4 [id number], [id number] #### [facility] [address] [place] [address], [place] HEMOGLOBIN A1Con 05-21-2022 Glucose [Moles/Vol] 194 mmol/L Normal [facility] Comment on above: Order Comment: If no t done in EDNo: Do not add to previous draw Performed By: #### 8 [id number], [id number] ####[facility] [place] [address], [facility] HbA1c (Bld) [Mass fraction] 8.4 % High 4.0-6.0 [facility] Comment on above: Order Comment: If no t done in EDNo: Do not add to previous draw Performed By: #### 8 [id number], [id number] ####[facility] [place] [address], [facility] POC GLUCOSE LABon 05-21-2022 Glucose [Mass/Vol] 194 mg/dL High 70-100 [facility] Comment on above: Performed By: #### 8 [id number] ####[facility] [place] [address], [place] Glucose [Mass/Vol] 142 mg/dL High 70-100 [facility] Comment on above: Performed By: #### 0 0071 #### [facility] [address] [place] [address], [place] POC SARS COV2 ANTIGEN NEGATI VEon 05-21-2022 POC SARS COV2 ANTIGEN NEG Negative Normal NEGATIVE [facility] Comment on above: Result Comment: Nega tive [...] antigen from SARS-CoV-2 in direct nasopharyngeal swab (MAIL INSERTER) specimens from individuals who are suspected of [...] Accreditation. Performed By: #### 5 [id number] #### [address] [place] [address], [facility] PROF 14(COMP METB)on 022 Albumin [Mass/Vol] 3.0 g/dL Critically low 3.4-5.0 [facility] Comment on above: Performed By: #### C VDTBH #### [facility] [address] [place] [address] Dr. Raymond Walsh Albumin/Globulin [Mass ratio] 0.9 {ratio} Normal [facility] Comment on above: Performed By: #### C VDTBH #### [facility] [address] [place] [address] Dr. Raymond Walsh ALP [Catalytic activity/Vol] 77 U/L Normal 46-116 [facility] Comment on above: Performed By: #### C VDTBH #### [facility] [address] [place] [address] Dr. Raymond Walsh ALT [Catalytic activity/Vol] 21 U/L Normal 16-63 [facility] Comment on above: Performed By: #### C VDTBH #### [facility] [address] [place] [address] Dr. Raymond Walsh Anion gap [Moles/Vol] 7.4 mmol/L Normal [facility] Comment on above: Performed By: #### C VDTBH #### [facility] [address] [place] [address] Dr. Raymond Walsh AST [Catalytic activity/Vol] 15 U/L Normal 15-37 [facility] Comment on above: Performed By: #### C VDTBH #### [facility] [address] [place] [address] Dr. Raymond Walsh Bilirubin [Mass/Vol] 0.6 mg/dL Normal 0.2-1.0 [facility] Comment on above: Performed By: #### C VDTBH #### [facility] [address] [place] [address] Dr. Raymond Walsh Calcium [Mass/Vol] 9.1 mg/dL Normal 8.5-10.1 [facility] Comment on above: Performed By: #### C VDTBH #### [facility] [address] [place] [address] Dr. Raymond Walsh Chloride [Moles/Vol] 100 mmol/L Normal 98-107 [facility] Comment on above: Performed By: #### C VDTBH #### [facility] [address] [place] [address] Dr. Raymond Walsh CO2 [Moles/Vol] 39.5 mmol/L Critically high 21.0-32.0 [facility] Comment on above: Performed By: #### C VDTBH #### [facility] [address] [place] [address] Dr. Raymond Walsh Creatinine [Mass/Vol] 0.55 mg/dL Critically low 0.70-1.30 [facility] Comment on above: Performed By: #### C VDTBH #### [facility] [address] [place] [address] Dr. Raymond Walsh EGFR-AF BURMESE >60 Normal >=60 [facility] Comment on above: Performed By: #### C VDTBH #### [facility] [address] [place] [address] Dr. Raymond Walsh EGFR-NON AF BURMESE >60 Normal >=60 [facility] Comment on above: Performed By: #### C VDTBH #### [facility] [address] [place] [address] Dr. Raymond Walsh Globulin (S) [Mass/Vol] 3.2 g/dL Normal [facility] Comment on above: Performed By: #### C VDTBH #### [facility] [address] [place] [address] Dr. Raymond Walsh Glucose [Mass/Vol] 110 mg/dL Critically high 74-106 [facility] Comment on above: Performed By: #### C VDTBH #### [facility] [address] [place] [address] Dr. Raymond Walsh Potassium [Moles/Vol] 4.9 mmol/L Normal 3.5-5.1 [facility] Comment on above: Performed By: #### C VDTBH #### [facility] [address] [place] [address] Dr. Raymond Walsh Protein [Mass/Vol] 6.2 g/dL Critically low 6.4-8.2 [facility] Comment on above: Performed By: #### C VDTBH #### [facility] [address] [place] [address] Dr. Raymond Walsh Sodium [Moles/Vol] 142 mmol/L Normal 136-145 [facility] Comment on above: Performed By: #### C VDTBH #### [facility] [address] [place] [address] Dr. Raymond Walsh Urea nitrogen [Mass/Vol] 25.0 mg/dL Critically high 7.0-18.0 [facility] Comment on above: Performed By: #### C VDTBH #### [facility] [address] [place] [address] Dr. Raymond Walsh Urea nitrogen/Creatinine [Mass ratio] 45.5 mg/mg Normal [facility] Comment on above: Performed By: #### C VDTBH #### [facility] [address] [place] [address] Dr. Raymond Walsh TSH3on 05-21-2022 TSH 3RD GENERATION 2.89 uIU/mL Normal 0.34-5.60 [facility] Comment on above: Order Comment: If no t done in ED No: Do not add to previous draw Performed By: #### [id number] #### [facility] [address] [place] [address], [facility] CBC AUTO DIFFon 05-20-2022 BASO # 0.0 103/ul Normal 0.0-0.1 [facility] Comment on above: Performed By: #### S PUTGS #### [facility] [address] [address] [address] Raymond Walsh Basophils/100 WBC (Bld) 0.2 % Normal 0.2-2.0 [facility] Comment on above: Performed By: #### S PUTGS #### [facility] [address] [address] [address] Raymond Walsh EO # 0.2 103/ul Normal 0.0-0.7 [facility] Comment on above: Performed By: #### S PUTGS #### [facility] [address] [address] [address] Raymond Walsh Eosinophils/100 WBC (Bld) 1.5 % Normal 0.9-7.0 [facility] Comment on above: Performed By: #### S PUTGS #### [facility] [address] [address] [address] Raymond Walsh Erythrocyte distribution width (RBC) [Ratio] 14.8 % Normal 11.0-15.0 [facility] Comment on above: Performed By: #### S PUTGS #### [facility] [address] [address] [address] Raymond Walsh Hematocrit (Bld) [Volume fraction] 46.5 % Normal 42.0-54.0 [facility] Comment on above: Performed By: #### S PUTGS #### [facility] [address] [address] [address] Raymond Walsh Hemoglobin (Bld) [Mass/Vol] 13.9 g/dL Critically low 14.0-18.0 [facility] Comment on above: Performed By: #### S PUTGS #### [facility] [address] [address] [address] Raymond Walsh IG # 0.05 10e3/ul Critically high 0.00-0.03 [facility] Comment on above: Performed By: #### S PUTGS #### [facility] [address] [address] [address] Raymond Walsh IG % 0.5 % Normal 0.0-0.5 [facility] Comment on above: Performed By: #### S PUTGS #### [facility] [address] [address] [address] Raymond Walsh LYMPH # 1.6 103/ul Normal 1.2-3.8 [facility] Comment on above: Performed By: #### S PUTGS #### [facility] [address] [place] [address] Dr. Raymond Walsh Lymphocytes/100 WBC (Bld) 16.5 % Critically low 20.5-60.0 [facility] Comment on above: Performed By: #### S PUTGS #### [facility] [address] [address] [address] Raymond Walsh MANUAL DIFF REQ NO Normal [facility] Comment on above: Performed By: #### S PUTGS #### [facility] [address] [address] [address] Raymond Walsh MCH (RBC) [Entitic mass] 29.6 pg Normal 25.9-34.0 [facility] Comment on above: Performed By: #### S PUTGS #### [facility] [address] [address] [address] Raymond Walsh MCHC (RBC) [Mass/Vol] 29.9 g/dL Normal 29.9-35.2 [facility] Comment on above: Performed By: #### S PUTGS #### [facility] [address] [address] [address] Raymond Walsh MCV (RBC) [Entitic vol] 99.1 fL Critically high 80.0-94.0 [facility] Comment on above: Performed By: #### S PUTGS #### [facility] [address] [address] [address] Rayomnd Walsh MONO # 0.7 103/ul Normal 0.3-0.8 [facility] Comment on above: Performed By: #### S PUTGS #### [facility] [address] [address] [address] Raymond Walsh Monocytes/100 WBC (Bld) 6.9 % Normal 1.7-12.0 [facility] Comment on above: Performed By: #### S PUTGS #### [facility] [address] [address] [address] Raymond Walsh NEUT # 7.2 103/ul Critically high 1.4-6.5 [facility] Comment on above: Performed By: #### S PUTGS #### [facility] [address] [place] [address] Dr. Raymond Walsh Neutrophils/100 WBC (Bld) 74.4 % Normal 43.0-75.0 [facility] Comment on above: Performed By: #### S PUTGS #### [facility] [address] [place] [address] Dr. Raymond Walsh Platelet mean volume (Bld) [Entitic vol] 10.2 fL Normal 9.5-13.5 [facility] Comment on above: Performed By: #### S PUTGS #### [facility] [address] [address] [address] Raymond Walsh PLT 170 103/ul Normal 150-450 [facility] Comment on above: Performed By: #### S PUTGS #### [facility] [address] [address] [address] Raymond Walsh RBC 4.69 106/ul Critically low 4.70-6.10 [facility] Comment on above: Performed By: #### S PUTGS #### [facility] [address] [address] [address] Raymond Walsh WBC 9.7 103/ul Normal 4.0-11.0 [facility] Comment on above: Performed By: #### S PUTGS #### [facility] [address] [address] [address] Raymond Walsh LAB TESTINGon 05-20-2022 RECV HEADER SEE SCANNED REPORT I N HPF [facility] Comment on above: Performed By: #### C BC #### [facility] [address] [address] [address] Raymond Walsh REV FROM REF LAB 05/20/22 [facility] Comment on above: Performed By: #### C BC #### [facility] [address] [address] [address] Raymond Walsh SENT TO REF LAB 05/20/22 [facility] Comment on above: Performed By: #### C BC #### [facility] [address] [address] [address] Raymond Walsh No Panel InformationOrdered By: George Nieto on 05-20-2022 D-Dimer Quantitative (PE/DVT) < 200 ng/mL 0-243 [facility] Comment on above: The reference range [...] to co-morbid conditions. POINT OF CARE GLUCOSEon 08 Glucose [Mass/Vol] 238 mg/dL Critically high 74-106 [facility] Comment on above: Performed By: #### P OCGLUC #### [facility] [address] [place] [address] Dr. Raymond Walsh Glucose [Mass/Vol] 125 mg/dL Critically high 74-106 [facility] Comment on above: Performed By: #### C MP, BNP #### [facility] [address] [place] [address] Dr. Raymond Walsh Glucose [Mass/Vol] 184 mg/dL Critically high 74-106 [facility] Comment on above: Performed By: #### P OCGLUC #### [facility] [address] [place] [address] Dr. Raymond Walsh Glucose [Mass/Vol] 108 mg/dL Critically high 74-106 [facility] Comment on above: Performed By: #### P OCGLUC #### [facility] [address] [place] [address] Dr. Raymond Walsh Glucose [Mass/Vol] 58 mg/dL Critically low 74-106 [facility] Comment on above: Performed By: #### S PUTGS #### [facility] [address] [place] [address] Dr. Raymond Walsh PROF 14(COMP METB)on 022 Albumin [Mass/Vol] 2.9 g/dL Critically low 3.4-5.0 [facility] Comment on above: Performed By: #### C MP #### [facility] [address] [place] [address] Dr. Raymond Walsh Albumin/Globulin [Mass ratio] 0.9 {ratio} Normal [facility] Comment on above: Performed By: #### C MP #### [facility] [address] [place] [address] Dr. Raymond Walsh ALP [Catalytic activity/Vol] 76 U/L Normal 46-116 [facility] Comment on above: Performed By: #### C MP #### [facility] [address] [place] [address] Dr. Raymond Walsh ALT [Catalytic activity/Vol] 17 U/L Normal 16-63 [facility] Comment on above: Performed By: #### C MP #### [facility] [address] [place] [address] Dr. Raymond Walsh Anion gap [Moles/Vol] 6.1 mmol/L Normal [facility] Comment on above: Performed By: #### C MP #### [facility] [address] [place] [address] Dr. Raymond Walsh AST [Catalytic activity/Vol] 15 U/L Normal 15-37 [facility] Comment on above: Performed By: #### C MP #### [facility] [address] [address] [address] Raymond Walsh Bilirubin [Mass/Vol] 0.6 mg/dL Normal 0.2-1.0 [facility] Comment on above: Performed By: #### C MP #### [facility] [address] [address] [address] Raymond Walsh Calcium [Mass/Vol] 9.3 mg/dL Normal 8.5-10.1 [facility] Comment on above: Performed By: #### C MP #### [facility] [address] [place] [address] Dr. Raymond Walsh Chloride [Moles/Vol] 99 mmol/L Normal 98-107 [facility] Comment on above: Performed By: #### C MP #### [facility] [address] [place] [address] Dr. Raymond Walsh CO2 [Moles/Vol] 36.4 mmol/L Critically high 21.0-32.0 [facility] Comment on above: Performed By: #### C MP #### [facility] [address] [place] [address] Dr. Raymond Walsh Creatinine [Mass/Vol] 0.61 mg/dL Critically low 0.70-1.30 [facility] Comment on above: Performed By: #### C MP #### [facility] [address] [place] [address] Dr. Raymond Walsh EGFR-AF BURMESE >60 Normal >=60 [facility] Comment on above: Performed By: #### C MP #### [facility] [address] [place] [address] Dr. Raymond Walsh EGFR-NON AF BURMESE >60 Normal >=60 [facility] Comment on above: Performed By: #### C MP #### [facility] [address] [place] [address] Dr. Raymond Walsh Globulin (S) [Mass/Vol] 3.1 g/dL Normal [facility] Comment on above: Performed By: #### C MP #### [facility] [address] [address] [address] Raymond Walsh Glucose [Mass/Vol] 62 mg/dL Critically low 74-106 [facility] Comment on above: Performed By: #### C MP #### [facility] [address] [address] [address] Raymond Walsh Potassium [Moles/Vol] 4.5 mmol/L Normal 3.5-5.1 [facility] Comment on above: Performed By: #### C MP #### [facility] [address] [address] [address] Raymond Walsh Protein [Mass/Vol] 6.0 g/dL Critically low 6.4-8.2 [facility] Comment on above: Performed By: #### C MP #### [facility] [address] [address] [address] Raymond Walsh Sodium [Moles/Vol] 137 mmol/L Normal 136-145 [facility] Comment on above: Performed By: #### C MP #### [facility] [address] [address] [address] Raymond Walsh Urea nitrogen [Mass/Vol] 34.0 mg/dL Critically high 7.0-18.0 [facility] Comment on above: Performed By: #### C MP #### [facility] [address] [address] [address] Raymond Walsh Urea nitrogen/Creatinine [Mass ratio] 55.7 mg/mg Normal [facility] Comment on above: Performed By: #### C MP #### [facility] [address] [address] [address] Raymond Walsh XR CHEST 2 Von [...] MARCO CHA Date: 2022-05-20 09:59 Normal [facility] BNPon 05-19-2022 Natriuretic peptide B (Bld) [Mass/Vol] 485.0 pg/mL Normal <=900.0 [facility] Comment on above: Performed By: #### S PUTGS #### [facility] [address] [place] [address] Dr. Raymond Walsh CBC AUTO DIFFon 05-19-2022 BASO # 0.0 103/ul Normal 0.0-0.1 [facility] Comment on above: Performed By: #### C BC #### [facility] [address] [place] [address] Dr. Raymond Walsh Basophils/100 WBC (Bld) 0.3 % Normal 0.2-2.0 [facility] Comment on above: Performed By: #### C BC #### [facility] [address] [place] [address] Dr. Raymond Walsh EO # 0.2 103/ul Normal 0.0-0.7 [facility] Comment on above: Performed By: #### C BC #### [facility] [address] [place] [address] Dr. Raymond Walsh Eosinophils/100 WBC (Bld) 1.6 % Normal 0.9-7.0 [facility] Comment on above: Performed By: #### C BC #### [facility] [address] [place] [address] Dr. Raymond Walsh Erythrocyte distribution width (RBC) [Ratio] 14.7 % Normal 11.0-15.0 [facility] Comment on above: Performed By: #### C BC #### [facility] [address] [place] [address] Dr. Raymond Walsh Hematocrit (Bld) [Volume fraction] 53.6 % Normal 42.0-54.0 [facility] Comment on above: Performed By: #### C BC #### [facility] [address] [address] [address] Raymond Walsh Hemoglobin (Bld) [Mass/Vol] 15.4 g/dL Normal 14.0-18.0 [facility] Comment on above: Performed By: #### C BC #### [facility] [address] [address] [address] Raymond Walsh IG # 0.07 10e3/ul Critically high 0.00-0.03 [facility] Comment on above: Performed By: #### C BC #### [facility] [address] [address] [address] Raymond Walsh IG % 0.6 % Critically high 0.0-0.5 [facility] Comment on above: Performed By: #### C BC #### [facility] [address] [place] [address] Dr. Raymond Walsh LYMPH # 1.5 103/ul Normal 1.2-3.8 [facility] Comment on above: Performed By: #### C BC #### [facility] [address] [place] [address] Dr. Raymond Walsh Lymphocytes/100 WBC (Bld) 13.9 % Critically low 20.5-60.0 [facility] Comment on above: Performed By: #### C BC #### [facility] [address] [place] [address] Dr. Raymond Walsh MANUAL DIFF REQ NO Normal [facility] Comment on above: Performed By: #### C BC #### [facility] [address] [address] [address] Raymond Walsh MCH (RBC) [Entitic mass] 29.4 pg Normal 25.9-34.0 [facility] Comment on above: Performed By: #### C BC #### [facility] [address] [place] [address] Dr. Raymond Walsh MCHC (RBC) [Mass/Vol] 28.7 g/dL Critically low 29.9-35.2 [facility] Comment on above: Performed By: #### C BC #### [facility] [address] [id number] Raymond Walsh MCV (RBC) [Entitic vol] 102.3 fL Critically high 80.0-94.0 [facility] Comment on above: Performed By: #### C BC #### [facility] [address] [address] [address] Raymond Walsh MONO # 0.8 103/ul Normal 0.3-0.8 [facility] Comment on above: Performed By: #### C BC #### [facility] [address] [address] [address] Raymond Walsh Monocytes/100 WBC (Bld) 6.9 % Normal 1.7-12.0 [facility] Comment on above: Performed By: #### C BC #### [facility] [address] [place] [address] Dr. Raymond Walsh NEUT # 8.4 103/ul Critically high 1.4-6.5 [facility] Comment on above: Performed By: #### C BC #### [facility] [address] [place] [address] Dr. Raymond Walsh Neutrophils/100 WBC (Bld) 76.7 % Critically high 43.0-75.0 [facility] Comment on above: Performed By: #### C BC #### [facility] [address] [place] [address] Dr. Raymond Walsh Platelet mean volume (Bld) [Entitic vol] 10.3 fL Normal 9.5-13.5 [facility] Comment on above: Performed By: #### C BC #### [facility] [address] [place] [address] Dr. Raymond Walsh PLT 206 103/ul Normal 150-450 [facility] Comment on above: Performed By: #### C BC #### [facility] [address] [place] [address] Dr. Raymond Walsh RBC 5.24 106/ul Normal 4.70-6.10 [facility] Comment on above: Performed By: #### C BC #### [facility] [address] [place] [address] Dr. Raymond Walsh WBC 11.0 103/ul Normal 4.0-11.0 [facility] Comment on above: Performed By: #### C BC #### [facility] [address] [place] [address] Dr. Raymond Walsh POINT OF CARE GLUCOSEon 08 Glucose [Mass/Vol] 127 mg/dL Critically high 74-106 [facility] Comment on above: Performed By: #### S PUTGS #### [facility] [address] [place] [address] Dr. Raymond Walsh Glucose [Mass/Vol] 89 mg/dL Normal 74-106 [facility] Comment on above: Performed By: #### C VDTBH #### [facility] [address] [place] [address] Dr. Raymond Walsh Glucose [Mass/Vol] 171 mg/dL Critically high 74-106 [facility] Comment on above: Performed By: #### C MP, BNP #### [facility] [address] [place] [address] Dr. Raymond Walsh PROF 14(COMP METB)on 022 Albumin [Mass/Vol] 3.3 g/dL Critically low 3.4-5.0 [facility] Comment on above: Performed By: #### S PUTGS #### [facility] [address] [place] [address] Dr. Raymond Walsh Albumin/Globulin [Mass ratio] 0.9 {ratio} Normal [facility] Comment on above: Performed By: #### S PUTGS #### [facility] [address] [place] [address] Dr. Raymond Walsh ALP [Catalytic activity/Vol] 80 U/L Normal 46-116 [facility] Comment on above: Performed By: #### S PUTGS #### [facility] [address] [place] [address] Dr. Raymond Walsh ALT [Catalytic activity/Vol] 25 U/L Normal 16-63 [facility] Comment on above: Performed By: #### S PUTGS #### [facility] [address] [address] [address] Raymond Walsh Anion gap [Moles/Vol] 6.0 mmol/L Normal [facility] Comment on above: Performed By: #### S PUTGS #### [facility] [address] [address] [address] Raymond Walsh AST [Catalytic activity/Vol] 17 U/L Normal 15-37 [facility] Comment on above: Performed By: #### S PUTGS #### [facility] [address] [address] [address] Raymond Walsh Bilirubin [Mass/Vol] 0.5 mg/dL Normal 0.2-1.0 [facility] Comment on above: Performed By: #### S PUTGS #### [facility] [address] [place] [address] Dr. Raymond Walsh Calcium [Mass/Vol] 9.3 mg/dL Normal 8.5-10.1 [facility] Comment on above: Performed By: #### S PUTGS #### [facility] [address] [place] [address] Dr. Raymond Walsh Chloride [Moles/Vol] 97 mmol/L Critically low 98-107 [facility] Comment on above: Performed By: #### S PUTGS #### [facility] [address] [place] [address] Dr. Raymond Walsh CO2 [Moles/Vol] 42.0 mmol/L Critically high 21.0-32.0 [facility] Comment on above: Performed By: #### S PUTGS #### [facility] [address] [place] [address] Dr. Raymond Walsh Creatinine [Mass/Vol] 0.88 mg/dL Normal 0.70-1.30 [facility] Comment on above: Performed By: #### S PUTGS #### [facility] [address] [place] [address] Dr. Raymond Walsh EGFR-AF BURMESE >60 Normal >=60 [facility] Comment on above: Performed By: #### S PUTGS #### [facility] [address] [place] [address] Dr. Raymond Walsh EGFR-NON AF BURMESE >60 Normal >=60 [facility] Comment on above: Performed By: #### S PUTGS #### [facility] [address] [place] [address] Dr. Raymond Walsh Globulin (S) [Mass/Vol] 3.6 g/dL Normal [facility] Comment on above: Performed By: #### S PUTGS #### [facility] [address] [address] [address] Raymond Walsh Glucose [Mass/Vol] 107 mg/dL Critically high 74-[address] [facility] Comment on above: Performed By: #### S PUTGS #### [facility] [address] [place] [address] Dr. Raymond Walsh Potassium [Moles/Vol] 5.0 mmol/L Normal 3.5-5.1 [facility] Comment on above: Performed By: #### S PUTGS #### [facility] [address] [place] [address] Dr. Raymond Walsh Protein [Mass/Vol] 6.9 g/dL Normal 6.4-8.2 [facility] Comment on above: Performed By: #### S PUTGS #### [facility] [address] [place] [address] Dr. Raymond Walsh Sodium [Moles/Vol] 140 mmol/L Normal 136-145 [facility] Comment on above: Performed By: #### S PUTGS #### [facility] [address] [address] [address] Raymond Walsh Urea nitrogen [Mass/Vol] 41.0 mg/dL Critically high 7.0-18.0 [facility] Comment on above: Performed By: #### S PUTGS #### [facility] [address] [place] [address] Dr. Raymond Walsh Urea nitrogen/Creatinine [Mass ratio] 46.6 mg/mg Normal [facility] Comment on above: Performed By: #### S PUTGS #### [facility] [address] [place] [address] Dr. Raymond Walsh CBC AUTO DIFFon 05-18-2022 BASO # 0.0 103/ul Normal 0.0-0.1 [facility] Comment on above: Performed By: #### C BC #### [facility] [address] [address] [address] Raymond Walsh Basophils/100 WBC (Bld) 0.4 % Normal 0.2-2.0 [facility] Comment on above: Performed By: #### C BC #### [facility] [address] [address] [address] Raymond Walsh EO # 0.2 103/ul Normal 0.0-0.7 [facility] Comment on above: Performed By: #### C BC #### [facility] [address] [place] [address] Dr. Raymond Walsh Eosinophils/100 WBC (Bld) 1.6 % Normal 0.9-7.0 [facility] Comment on above: Performed By: #### C BC #### [facility] [address] [place] [address] Dr. Raymond Walsh Erythrocyte distribution width (RBC) [Ratio] 15.3 % Critically high 11.0-15.0 [facility] Comment on above: Performed By: #### C BC #### [facility] [address] [place] [address] Dr. Raymond Walsh Hematocrit (Bld) [Volume fraction] 56.1 % Critically high 42.0-54.0 [facility] Comment on above: Performed By: #### C BC #### [facility] [address] [place] [address] Dr. Raymond Walsh Hemoglobin (Bld) [Mass/Vol] 16.4 g/dL Normal 14.0-18.0 [facility] Comment on above: Performed By: #### C BC #### [facility] [address] [place] [address] Dr. Raymond Walsh IG # 0.06 10e3/ul Critically high 0.00-0.03 [facility] Comment on above: Performed By: #### C BC #### [facility] [address] [place] [address] Dr. Raymond Walsh IG % 0.6 % Critically high 0.0-0.5 [facility] Comment on above: Performed By: #### C BC #### [facility] [address] [place] [address] Dr. Raymond Walsh LYMPH # 1.8 103/ul Normal 1.2-3.8 [facility] Comment on above: Performed By: #### C BC #### [facility] [address] [place] [address] Dr. Raymond Walsh Lymphocytes/100 WBC (Bld) 16.3 % Critically low 20.5-60.0 [facility] Comment on above: Performed By: #### C BC #### [facility] [address] [place] [address] Dr. Raymond Walsh MANUAL DIFF REQ NO Normal [facility] Comment on above: Performed By: #### C BC #### [facility] [address] [place] [address] Dr. Raymond Walsh MCH (RBC) [Entitic mass] 29.3 pg Normal 25.9-34.0 [facility] Comment on above: Performed By: #### C BC #### [facility] [address] [place] [address] Dr. Raymond Walsh MCHC (RBC) [Mass/Vol] 29.2 g/dL Critically low 29.9-35.2 [facility] Comment on above: Performed By: #### C BC #### [facility] [address] [place] [address] Dr. Raymond Walsh MCV (RBC) [Entitic vol] 100.4 fL Critically high 80.0-94.0 [facility] Comment on above: Performed By: #### C BC #### [facility] [address] [place] [address] Dr. Raymond Walsh MONO # 0.7 103/ul Normal 0.3-0.8 [facility] Comment on above: Performed By: #### C BC #### [facility] [address] [place] [address] Dr. Raymond Walsh Monocytes/100 WBC (Bld) 6.3 % Normal 1.7-12.0 [facility] Comment on above: Performed By: #### C BC #### [facility] [address] [place] [address] Dr. Raymond Walsh NEUT # 8.1 103/ul Critically high 1.4-6.5 [facility] Comment on above: Performed By: #### C BC #### [facility] [address] [place] [address] Dr. Raymond Walsh Neutrophils/100 WBC (Bld) 74.8 % Normal 43.0-75.0 [facility] Comment on above: Performed By: #### C BC #### [facility] [address] [place] [address] Dr. Raymond Walsh Platelet mean volume (Bld) [Entitic vol] 10.3 fL Normal 9.5-13.5 [facility] Comment on above: Performed By: #### C BC #### [facility] [address] [place] [address] Dr. Raymond Walsh PLT 216 103/ul Normal 150-450 [facility] Comment on above: Performed By: #### C BC #### [facility] [address] [place] [address] Dr. Raymond Walsh RBC 5.59 106/ul Normal 4.70-6.10 [facility] Comment on above: Performed By: #### C BC #### [facility] [address] [place] [address] Dr. Raymond Walsh WBC 10.8 103/ul Normal 4.0-11.0 [facility] Comment on above: Performed By: #### C BC #### [facility] [address] [place] [address] Dr. Raymond Walsh ECHOCARDIO M/2D COMPLETEon 0 05-18-2022 ECHOCARDIO M/2D COMPLETE Patient: EVGENY DELGADO Exam Date: 05/18/2022 : 1955 Gender:M Ordering : DR GEORGE NIETO . Admission #: [id number] Family : Order #: [id number] CLICK HERE TO VIEW EXAM ECHOCARDIOGRAM REPORT [...] Carreon M.D. on 05/18/2022 at 17:09 Normal [facility] FREE T3on 05-18-2022 FREE T3 2.21 pg/mlL Normal 2.18-3.98 [facility] Comment on above: Performed By: #### C [facility] #### [facility] [address] [place] [address] Dr. Raymond Walsh FREE T4on 05-18-2022 Free T4 [Mass/Vol] 1.10 ng/dL Normal 0.76-1.46 [facility] Comment on above: Performed By: #### C VDTBH #### [facility] [address] [address] [address] Raymond Walsh LIPID PROFILEon 05-18-2022 CHOL-HDL RATIO NORM SEE BELOW Normal [facility] Comment on above: Result Comment: 3.3 - 4.4 LOW RISK 4.4 - 7.1 AVERAGE RISK 7.1 - 11.0 MODERATE RISK >11.0 HIGH RISK Performed By: #### C MP, BNP #### [facility] [address] [address] [address] Raymond Walsh Cholesterol [Mass/Vol] 154 mg/dL Normal <=200 [facility] Comment on above: Performed By: #### C MP, BNP #### [facility] [address] [address] [address] Raymond Walsh Cholesterol in HDL [Mass/Vol] 48 mg/dL Normal 40-60 [facility] Comment on above: Performed By: #### C MP, BNP #### [facility] [address] [address] [address] Raymond Walsh Cholesterol in LDL [Mass/Vol] 55.6 mg/dL Normal [facility] Comment on above: Performed By: #### C MP, BNP #### [facility] [address] [address] [address] Raymond Walsh Cholesterol.total/Cho lesterol in HDL [Mass ratio] 3.2 {ratio} Normal [facility] Comment on above: Performed By: #### C MP, BNP #### [facility] [address] [address] [address] Raymond Walsh HDL NORMAL > or = 60 mg/dl - LO W CARDIOVASCULAR RISK <40 mg/dl - HIGH CARDIOVASCULAR RISK Normal [facility] Comment on above: Performed By: #### C MP, BNP #### [facility] [address] [address] [address] Raymond Walsh LDL CALC NORMAL SEE BELOW Normal [facility] Comment on above: Result Comment: <100 mg/dl OPTIMAL 100 - 129 mg/dl NEAR OR ABOVE OPTIMAL 130 - 159 mg/dl BORDERLINE HIGH 160 - 189 mg/dl HIGH >190 mg/dl VERY HIGH Performed By: #### C MP, BNP #### [facility] [address] [address] [address] Raymond Walsh Triglyceride [Mass/Vol] 252 mg/dL Critically high <=150 [facility] Comment on above: Performed By: #### C MP, BNP #### [facility] [address] [place] [address] Dr. Raymond Walsh VLDL CALC 50.4 mg/dL Normal [facility] Comment on above: Performed By: #### C MP, BNP #### [facility] [address] [address] [address] Raymond Walsh MAGNESIUMon 05-18-2022 Magnesium [Mass/Vol] 1.4 mg/dL Critically low 1.8-2.4 [facility] Comment on above: Performed By: #### C MP, BNP #### [facility] [address] [place] [address] Dr. Raymond Walsh POINT OF CARE GLUCOSEon Glucose [Mass/Vol] 152 mg/dL Critically high [address] [place] [address] Comment on above: Performed By: #### C MP, BNP #### [facility] [address] [place] [address] Dr. Raymond Walsh Glucose [Mass/Vol] 140 mg/dL Critically high [address] [place] [address] Comment on above: Performed By: #### S PUTGS #### [facility] [address] [place] [address] Dr. Raymond Walsh Glucose [Mass/Vol] 190 mg/dL Critically high -106 [facility] Comment on above: Performed By: #### C MP, BNP #### [facility] [address] [place] [address] Dr. Raymond Walsh Glucose [Mass/Vol] 146 mg/dL Critically high [address] [place] [address] Comment on above: Performed By: #### P OCGLUC #### [facility] [address] [place] [address] Dr. Raymond Walsh Glucose [Mass/Vol] 145 mg/dL Critically high [facility] Comment on above: Performed By: #### P OCGLUC #### [facility] [address] [place] [address] Dr. Raymond Walsh PROF 14(COMP METB)on 022 Albumin [Mass/Vol] 3.7 g/dL Normal 3.4-5.0 [facility] Comment on above: Performed By: #### C BC #### [facility] [address] [place] [address] Dr. Raymond Walsh Albumin/Globulin [Mass ratio] 1.1 {ratio} Normal [facility] Comment on above: Performed By: #### C BC #### [facility] [address] [place] [address] Dr. Raymond Walsh ALP [Catalytic activity/Vol] 90 U/L Normal 46-116 [facility] Comment on above: Performed By: #### C BC #### [facility] [address] [place] [address] Dr. Raymond Walsh ALT [Catalytic activity/Vol] 25 U/L Normal 16-63 [facility] Comment on above: Performed By: #### C BC #### [facility] [address] [place] [address] Dr. Raymond Walsh Anion gap [Moles/Vol] 10.7 mmol/L Normal [facility] Comment on above: Performed By: #### C BC #### [facility] [address] [place] [address] Dr. Raymond Walsh AST [Catalytic activity/Vol] 20 U/L Normal 15-37 [facility] Comment on above: Performed By: #### C BC #### [facility] [address] [place] [address] Dr. Raymond Walsh Bilirubin [Mass/Vol] 0.5 mg/dL Normal 0.2-1.0 [facility] Comment on above: Performed By: #### C BC #### [facility] [address] [place] [address] Dr. Raymond Walsh Calcium [Mass/Vol] 9.4 mg/dL Normal 8.5-10.1 [facility] Comment on above: Performed By: #### C BC #### [facility] [address] [address] [address] Raymond Walsh Chloride [Moles/Vol] 99 mmol/L Normal 98-107 [facility] Comment on above: Performed By: #### C BC #### [facility] [address] [address] [address] Raymond Walsh CO2 [Moles/Vol] 39.2 mmol/L Critically high 21.0-32.0 [facility] Comment on above: Performed By: #### C BC #### [facility] [address] [address] [address] Raymond Walsh Creatinine [Mass/Vol] 0.63 mg/dL Critically low 0.70-1.30 [facility] Comment on above: Performed By: #### C BC #### [facility] [address] [place] [address] Dr. Raymond Walsh EGFR-AF BURMESE >60 Normal >=60 [facility] Comment on above: Performed By: #### C BC #### [facility] [address] [place] [address] Dr. Raymond Walsh EGFR-NON AF BURMESE >60 Normal >=60 [facility] Comment on above: Performed By: #### C BC #### [facility] [address] [place] [address] Dr. Raymond Walsh Globulin (S) [Mass/Vol] 3.4 g/dL Normal [facility] Comment on above: Performed By: #### C BC #### [facility] [address] [place] [address] Dr. Raymond Walsh Glucose [Mass/Vol] 171 mg/dL Critically high 74-106 [facility] Comment on above: Performed By: #### C BC #### [facility] [address] [place] [address] Dr. Raymond Walsh Potassium [Moles/Vol] 4.9 mmol/L Normal 3.5-5.1 [facility] Comment on above: Performed By: #### C BC #### [facility] [address] [place] [address] Dr. Raymond Walsh Protein [Mass/Vol] 7.1 g/dL Normal 6.4-8.2 [facility] Comment on above: Performed By: #### C BC #### [facility] [address] [place] [address] Dr. Raymond Walsh Sodium [Moles/Vol] 144 mmol/L Normal 136-145 [facility] Comment on above: Performed By: #### C BC #### [facility] [address] [place] [address] Dr. Raymond Walsh Urea nitrogen [Mass/Vol] 25.0 mg/dL Critically high 7.0-18.0 [facility] Comment on above: Performed By: #### C BC #### [facility] [address] [place] [address] Dr. Raymond Walsh Urea nitrogen/Creatinine [Mass ratio] 39.7 mg/mg Normal [facility] Comment on above: Performed By: #### C BC #### [facility] [address] [place] [address] Dr. Raymond Walsh TSHon 05-18-2022 TSH 4.933 uIU/mL Critically high 0.358-3.740 [facility] Comment on above: Performed By: #### C VDTBH #### [facility] [address] [place] [address] Dr. Raymond Walsh BNPon 05-17-2022 Natriuretic peptide B (Bld) [Mass/Vol] 1307.0 pg/mL Critically high <=900.0 [facility] Comment on above: Performed By: #### C VDTBH #### [facility] [address] [place] [address] Dr. Raymond Walsh CBC AUTO DIFFon 05-17-2022 BASO # 0.0 103/ul Normal 0.0-0.1 [facility] Comment on above: Performed By: #### P OCGLUC #### [facility] [address] [place] [address] Dr. Raymond Walsh Basophils/100 WBC (Bld) 0.4 % Normal 0.2-2.0 [facility] Comment on above: Performed By: #### P OCGLUC #### [facility] [address] [address] [address] Raymond Walsh EO # 0.1 103/ul Normal 0.0-0.7 [facility] Comment on above: Performed By: #### P OCGLUC #### [facility] [address] [place] [address] Dr. Raymond Walsh Eosinophils/100 WBC (Bld) 1.0 % Normal 0.9-7.0 [facility] Comment on above: Performed By: #### P OCGLUC #### [facility] [address] [place] [address] Dr. Raymond Walsh Erythrocyte distribution width (RBC) [Ratio] 15.1 % Critically high 11.0-15.0 [facility] Comment on above: Performed By: #### P OCGLUC #### [facility] [address] [place] [address] Dr. Raymond Walsh Hematocrit (Bld) [Volume fraction] 52.0 % Normal 42.0-54.0 [facility] Comment on above: Performed By: #### P OCGLUC #### [facility] [address] [place] [address] Dr. Raymond Walsh Hemoglobin (Bld) [Mass/Vol] 15.4 g/dL Normal 14.0-18.0 [facility] Comment on above: Performed By: #### P OCGLUC #### [facility] [address] [place] [address] Dr. Raymond Walsh IG # 0.07 10e3/ul Critically high 0.00-0.03 [facility] Comment on above: Performed By: #### P OCGLUC #### [facility] [address] [place] [address] Dr. Raymond Walsh IG % 0.6 % Critically high 0.0-0.5 [facility] Comment on above: Performed By: #### P OCGLUC #### [facility] [address] [place] [address] Dr. Raymond Walsh LYMPH # 1.5 103/ul Normal 1.2-3.8 [facility] Comment on above: Performed By: #### P OCGLUC #### [facility] [address] [address] [address] Raymond Walsh Lymphocytes/100 WBC (Bld) 14.0 % Critically low 20.5-60.0 [facility] Comment on above: Performed By: #### P OCGLUC #### [facility] [address] [address] [address] Raymond Walsh MANUAL DIFF REQ NO Normal [facility] Comment on above: Performed By: #### P OCGLUC #### [facility] [address] [address] [address] Raymond Walsh MCH (RBC) [Entitic mass] 29.2 pg Normal 25.9-34.0 [facility] Comment on above: Performed By: #### P OCGLUC #### [facility] [address] [place] [address] Dr. Raymond Walsh MCHC (RBC) [Mass/Vol] 29.6 g/dL Critically low 29.9-35.2 [facility] Comment on above: Performed By: #### P OCGLUC #### [facility] [address] [place] [address] Dr. Raymond Walsh MCV (RBC) [Entitic vol] 98.7 fL Critically high 80.0-94.0 [facility] Comment on above: Performed By: #### P OCGLUC #### [facility] [address] [place] [address] Dr. Raymond Walsh MONO # 0.8 103/ul Normal 0.3-0.8 [facility] Comment on above: Performed By: #### P OCGLUC #### [facility] [address] [place] [address] Dr. Raymond Walsh Monocytes/100 WBC (Bld) 6.9 % Normal 1.7-12.0 [facility] Comment on above: Performed By: #### P OCGLUC #### [facility] [address] [place] [address] Dr. Raymond Walsh NEUT # 8.4 103/ul Critically high 1.4-6.5 [facility] Comment on above: Performed By: #### P OCGLUC #### [facility] [address] [place] [address] Dr. Raymond Walsh Neutrophils/100 WBC (Bld) 77.1 % Critically high 43.0-75.0 [facility] Comment on above: Performed By: #### P OCGLUC #### [facility] [address] [place] [address] Dr. Raymond Walsh Platelet mean volume (Bld) [Entitic vol] 10.4 fL Normal 9.5-13.5 [facility] Comment on above: Performed By: #### P OCGLUC #### [facility] [address] [place] [address] Dr. Raymond Walsh PLT 219 103/ul Normal 150-450 [facility] Comment on above: Performed By: #### P OCGLUC #### [facility] [address] [place] [address] Dr. Raymond Walsh RBC 5.27 106/ul Normal 4.70-6.10 [facility] Comment on above: Performed By: #### P OCGLUC #### [facility] [address] [place] [address] Dr. Raymond Walsh Covid-19 PCR ([facility])on SARS-CoV-2 (COVID-19) RNA ZACHARIAH+probe Ql (Unsp spec) Not detected Normal NOT DETECTED [facility] Comment on above: Result Comment: When diagnostic [...] for this test is supported by the [employer] of Health and Human Service's declaration that [...] used). Performed By: #### P OCGLUC #### [facility] [address] [place] [address] Dr. Raymond Walsh POINT OF CARE GLUCOSEon 08 Glucose [Mass/Vol] 148 mg/dL Critically high 74-106 [facility] Comment on above: Performed By: #### C MP, BNP #### [facility] [address] [address] [address] Raymond Walsh PROF CHEM 8 (BAS METB)on Anion gap [Moles/Vol] 11.0 mmol/L Normal [facility] Comment on above: Performed By: #### C VDTBH #### [facility] [address] [address] [address] Raymond Walsh Calcium [Mass/Vol] 9.5 mg/dL Normal 8.5-10.1 [facility] Comment on above: Performed By: #### C VDTBH #### [facility] [address] [address] [address] Raymond Walsh Chloride [Moles/Vol] 100 mmol/L Normal 98-107 [facility] Comment on above: Performed By: #### C VDTBH #### [facility] [address] [address] [address] Raymond Walsh CO2 [Moles/Vol] 35.5 mmol/L Critically high 21.0-32.0 [facility] Comment on above: Performed By: #### C VDTBH #### [facility] [address] [address] [address] Raymond Walsh Creatinine [Mass/Vol] 0.76 mg/dL Normal 0.70-1.30 [facility] Comment on above: Performed By: #### C VDTBH #### [facility] [address] [place] [address] Dr. Raymond Walsh EGFR-AF BURMESE >60 Normal >=60 [facility] Comment on above: Performed By: #### C VDTBH #### [facility] [address] [address] [address] Raymond Walsh EGFR-NON AF BURMESE >60 Normal >=60 [facility] Comment on above: Performed By: #### C VDTBH #### [facility] [address] [address] [address] Raymond Walsh Glucose [Mass/Vol] 187 mg/dL Critically high 74-[address] [facility] Comment on above: Performed By: #### C VDTBH #### [facility] [address] [address] [address] Raymond Walsh Potassium [Moles/Vol] 4.5 mmol/L Normal 3.5-5.1 [facility] Comment on above: Performed By: #### C VDTBH #### [facility] [address] [address] [address] Raymond Walsh Sodium [Moles/Vol] 142 mmol/L Normal 136-145 [facility] Comment on above: Performed By: #### C VDTBH #### [facility] [address] [address] [address] Raymond Walsh Urea nitrogen [Mass/Vol] 26.0 mg/dL Critically high 7.0-18.0 [facility] Comment on above: Performed By: #### C VDTBH #### [facility] [address] [address] [address] Raymond Walsh Urea nitrogen/Creatinine [Mass ratio] 34.2 mg/mg Normal [facility] Comment on above: Performed By: #### C VDTBH #### [facility] [address] [address] [address] Raymond Walsh TROPONIN, HIGH SENSITIVITYon 05-17-2022 HSTROP 38.5 pg/mL Normal 4.0-76.1 [facility] Comment on above: Result Comment: CUT- OFF POINTS HAVE BEEN ESTABLISHED BASED ON THE FOURTH UNIVERSAL DEFINITIONS OF MYOCARDIAL INFARCTION. THE UPPER REFERENCE LIMIT (URL) OF TROPONIN, DEFINED THE 99TH PERCENTILE OF cTnI DISTRIBUTION IN A REFERENCE POPULATION, HAS BEEN CONFIRMED THE DECISION THRESHOLD FOR IN DIAGNOSIS. Performed By: #### C VDTB #### [facility] [address] [address] [address] Raymond Walsh XR CHEST 1 Von [...] by: DEVYN AGUILAR Date: 2022-05-17 16:46 Normal [facility] POTASSIUMon 05-10-2022 Potassium [Moles/Vol] 4.6 mmol/L Normal 3.5-5.1 [facility] Comment on above: Performed By: #### S PUTGS #### [facility] [address] [address] [address] Raymond Walsh GLYCOHEMOGLOBIN A1Con 2021 ADA RECOMMENDATION SEE BELOW Normal [facility] Comment on above: Result Comment: ADA RECOMMENDED LIMIT 4.0 - 6.0 ADA THERAPEUTIC TARGET < 7.0 ACTION SUGGESTED > 7.0 Performed By: #### C MP, BNP #### [facility] [address] [address] [address] Raymond Walsh Glucose [Mass/Vol] 180 mg/dL Normal [facility] Comment on above: Performed By: #### C MP, BNP #### [facility] [address] [address] [address] Raymond Walsh HbA1c (Bld) [Mass fraction] 7.9 % Critically high 4.5-6.2 [facility] Comment on above: Performed By: #### C MP, BNP #### [facility] [address] [address] [address] Raymond Walsh LIPID PROFILEon 04-21-2022 CHOL-HDL RATIO NORM SEE BELOW Normal [facility] Comment on above: Result Comment: 3.3 - 4.4 LOW RISK 4.4 - 7.1 AVERAGE RISK 7.1 - 11.0 MODERATE RISK >11.0 HIGH RISK Performed By: #### C MP, BNP #### [facility] [address] [address] [address] Raymond Walsh Cholesterol [Mass/Vol] 144 mg/dL Normal <=200 [facility] Comment on above: Performed By: #### C MP, BNP #### [facility] [address] [address] [address] Raymond Walsh Cholesterol in HDL [Mass/Vol] 46 mg/dL Normal 40-60 [facility] Comment on above: Performed By: #### C MP, BNP #### [facility] [address] [address] [address] Raymond Walsh Cholesterol in LDL [Mass/Vol] 69.0 mg/dL Normal [facility] Comment on above: Performed By: #### C MP, BNP #### [facility] [address] [address] [address] Raymond Walsh Cholesterol.total/Cho lesterol in HDL [Mass ratio] 3.1 {ratio} Normal [facility] Comment on above: Performed By: #### C MP, BNP #### [facility] [facility] [address] [place] [address] Dr. Raymond Walsh HDL NORMAL > or = 60 mg/dl - LO W CARDIOVASCULAR RISK <40 mg/dl - HIGH CARDIOVASCULAR RISK Normal [facility] Comment on above: Performed By: #### C MP, BNP #### [facility] [address] [address] [address] Raymond Walsh LDL CALC NORMAL SEE BELOW Normal [facility] Comment on above: Result Comment: <100 mg/dl OPTIMAL 100 - 129 mg/dl NEAR OR ABOVE OPTIMAL 130 - 159 mg/dl BORDERLINE HIGH 160 - 189 mg/dl HIGH >190 mg/dl VERY HIGH Performed By: #### C MP, BNP #### [facility] [address] [address] [address] Raymond Walsh Triglyceride [Mass/Vol] 145 mg/dL Normal <=150 [facility] Comment on above: Performed By: #### C MP, BNP #### [facility] [address] [address] [address] Raymond Walsh VLDL CALC 29.0 mg/dL Normal [facility] Comment on above: Performed By: #### C MP, BNP #### [facility] [address] [address] [address] Raymond Walsh PROF 14(COMP METB)on 022 Albumin [Mass/Vol] 3.5 g/dL Normal 3.4-5.0 [facility] Comment on above: Performed By: #### C MP, BNP #### [facility] [address] [address] [address] Raymond Walsh Albumin/Globulin [Mass ratio] 0.9 {ratio} Normal [facility] Comment on above: Performed By: #### C MP, BNP #### [facility] [address] [place] [address] Dr. Raymond Walsh ALP [Catalytic activity/Vol] 84 U/L Normal 46-116 [facility] Comment on above: Performed By: #### C MP, BNP #### [facility] [address] [address] [address] Raymond Walsh ALT [Catalytic activity/Vol] 27 U/L Normal 16-63 [facility] Comment on above: Performed By: #### C MP, BNP #### [facility] [address] [address] [address] Raymond Walsh Anion gap [Moles/Vol] 8.1 mmol/L Normal [facility] Comment on above: Performed By: #### C MP, BNP #### [facility] [address] [place] [address] Dr. Raymond Walsh AST [Catalytic activity/Vol] 31 U/L Normal 15-37 [facility] Comment on above: Performed By: #### C MP, BNP #### [facility] [address] [address] [address] Raymond Walsh Bilirubin [Mass/Vol] 0.8 mg/dL Normal 0.2-1.0 [facility] Comment on above: Performed By: #### C MP, BNP #### [facility] [address] [address] [address] Raymond Walsh Calcium [Mass/Vol] 9.6 mg/dL Normal 8.5-10.1 [facility] Comment on above: Performed By: #### C MP, BNP #### [facility] [address] [address] [address] Raymond Walsh Chloride [Moles/Vol] 99 mmol/L Normal 98-107 [facility] Comment on above: Performed By: #### C MP, BNP #### [facility] [address] [address] [address] Raymond Walsh CO2 [Moles/Vol] 35.7 mmol/L Critically high 21.0-32.0 [facility] Comment on above: Performed By: #### C MP, BNP #### [facility] [address] [place] [address] Dr. Raymond Walsh Creatinine [Mass/Vol] 0.49 mg/dL Critically low 0.70-1.30 [facility] Comment on above: Performed By: #### C MP, BNP #### [facility] [address] [place] [address] Dr. Raymond Walsh EGFR-AF BURMESE >60 Normal >=60 [facility] Comment on above: Performed By: #### C MP, BNP #### [facility] [address] [place] [address] Dr. Raymond Walsh EGFR-NON AF BURMESE >60 Normal >=60 [facility] Comment on above: Performed By: #### C MP, BNP #### [facility] [address] [place] [address] Dr. Raymond Walsh Globulin (S) [Mass/Vol] 3.9 g/dL Normal [facility] Comment on above: Performed By: #### C MP, BNP #### [facility] [address] [address] [address] Raymond Walsh Glucose [Mass/Vol] 173 mg/dL Critically high 74-106 [facility] Comment on above: Performed By: #### C MP, BNP #### [facility] [address] [address] [address] Raymond Walsh Potassium [Moles/Vol] 5.8 mmol/L Critically high 3.5-5.1 [facility] Comment on above: Performed By: #### C MP, BNP #### [facility] [address] [address] [address] Raymond Walsh Protein [Mass/Vol] 7.4 g/dL Normal 6.4-8.2 [facility] Comment on above: Performed By: #### C MP, BNP #### [facility] [address] [address] [address] Raymond Walsh Sodium [Moles/Vol] 137 mmol/L Normal 136-145 [facility] Comment on above: Performed By: #### C MP, BNP #### [facility] [address] [address] [address] Raymond Walsh Urea nitrogen [Mass/Vol] 19.0 mg/dL Critically high 7.0-18.0 [facility] Comment on above: Performed By: #### C MP, BNP #### [facility] [address] [address] [address] Raymond Walsh Urea nitrogen/Creatinine [Mass ratio] 38.8 mg/mg Normal [facility] Comment on above: Performed By: #### C MP, BNP #### [facility] [address] [address] [address] Raymond Walsh Vital Signs Date Time Vital Sign Value Performing Clinician Twila atkinson 02-28-2025 12:00-0400 Body temperature 98.29 [degF] Sony French MD Work Phone: [facility] 02-28-2025 12:00-0400 Diastolic blood pressure 69 mm[Hg] Sony French MD Work Phone: [facility] 02-28-2025 12:00-0400 Heart rate 76 /min Sony French MD Work Phone: [facility] 02-28-2025 12:00-0400 Respiratory rate 16 /min Sony French MD Work Phone: [facility] [employer] 02-28-2025 12:00-0400 SaO2% (BldA) [Mass fraction] 96 % Sony French MD Work Phone: [facility] [employer] 02-28-2025 12:00-0400 Systolic blood pressure 108 mm[Hg] [facility] MD [facility] 02-28-2025 05:16-0400 Body mass index (BMI) [Ratio] 30.63 kg/m2 Sony French MD Work [facility] 02-28-2025 05:16-0400 Body weight 94.12 kg Sony French MD Work [facility] 02-20-2025 05:36-0400 Body temperature 37 Sony French MD Work Phone[facility] 2025 06:42-0400 Body temperature 37 Sony French MD Work [facility] 02-18-2025 12:35-0400 Body height 175.3 cm Sony French MD [facility] 02-18-2025 05:52-0400 Body temperature 37 Sony French MD [facility] 02-17-2025 15:10-0400 Body temperature 37 Sony French MD Work Phone: [facility] [employer] 02-16-2025 06:19-0400 Body temperature 37 Sony French MD Work Phone: [facility] [employer] 02-15-2025 06:37-0400 Body temperature 37 Sony French MD Work Phone: [facility] [employer] 02-14-2025 06:11-0400 Body temperature 37 Sony French MD Work Phone: [facility] [employer] 02-13-2025 10:16-0400 Body temperature 37 Sony French MD Work Phone: [facility] [employer] 02-12-2025 07:26-0400 Body temperature 37 Sony French MD Work Phone: [facility] [employer] 02-11-2025 12:03-0400 Body temperature 37 Sony French MD Work Phone: [facility] [employer] 02-11-2025 09:08-0400 Body temperature 37 Sony French MD Work Phone: [facility] [employer] 02-11-2025 05:22-0400 Body temperature 37 Sony French MD Work Phone: [facility] [employer] 02-10-2025 23:07-0400 Body temperature 37 Sony French MD Work Phone: [facility] [employer] 02-10-2025 21:02-0400 Body temperature 37 Sony French MD Work Phone: [facility] [employer] 02-10-2025 16:28-0400 Body temperature 37 Sony French MD Work Phone: [facility] [employer] 12-16-2024 15:17-0500 Body height 177.8 cm Fabian Root MD Work Phone: [facility] [employer] 12-16-2024 15:17-0500 Body mass index (BMI) [Ratio] 28.55 kg/m2 Fabian Root MD Work Phone: [facility] [employer] 12-16-2024 15:17-0500 Body weight 90.27 kg Fabian Root MD Work Phone: [facility] [employer] 12-16-2024 15:17-0500 Diastolic blood pressure 80 mm[Hg] Fabian Root MD Work Phone: [facility] 12-16-2024 15:17-0500 Systolic blood pressure 128 mm[Hg] Fabian Root MD Work Phone: [facility] Encounters Encounter Date Encounter Type Care Provider Facility Start: 03-20-2025 ambulatory Marco Bosch Facili ty:[facility] Start: 02-20-2025 End: 02-20-2025 ambulatory Marco Bosch [facility] Start: 02-10-2025 End: 02-28-2025 Evaluation and management of inpatient Sony French MD Work Phone: [facility] Start: 12-16-2024 End: 12-18-2024 ambulatory FABIAN ROOT [facility] Start: 12-16-2024 End: 12-18-2024 Subsequent hospital visit by physician Fabian Root MD Work Phone: [facility] Comment on above: Heart murmur Start: 12-09-2024 ambulatory Marco Flores Hiro Facili ty:[facility] Start: 12-03-2024 ambulatory Marco Flores Hiro Willisi ty:[facility] Start: 08-19-2024 End: 08-19-2024 ambulatory Marco Bosch Facility: [facility] Start: 07-16-2024 End: 07-16-2024 ambulatory Marco Flores Hiro Facility: [facility] Start: 07-09-2024 End: 07-09-2024 ambulatory Marco Bosch Facility: [facility] Start: 06-20-2023 End: 06-20-2023 Emergency department patient visit Marco Bosch Facility:[facility] Start: 04-26-2023 End: 04-27-2023 ambulatory MARCO [facility] Start: 04-26-2023 End: 04-26-2023 ambulatory MARCO [facility] Start: 04-09-2023 End: 04-20-2023 Evaluation and management of inpatient MARCO [facility] Start: 04-05-2023 End: 04-08-2023 ambulatory JULIET ROMAN [facility] Start: 02-27-2023 End: 02-28-[address] MARCO BOSCH Facility:[facility] Start: 02-09-2023 End: 02-10-[address] MARCO BOSCH Facility:[facility] Start: 01-18-2023 End: 01-19-[address] MARCO BOSCH Facility:[facility] Start: 12-21-2022 End: 12-21-2022 ambulatory [facility] Start: 09-01-2022 ambulatory [facility] Start: 08-10-2022 Encounter for preprocedural laboratory examination [facility] Start: 08-08-2022 ambulatory [facility] Start: 08-08-2022 End: 08-08-2022 ambulatory [facility] Start: 08-05-2022 End: 08-06-[address] MARCO BOSCH Facility:[facility] Start: 08-05-2022 End: 08-06-2022 Encounter for preprocedural laboratory examination DR MARCO BOSCH Facility:[facility] Start: 07-05-2022 End: 07-05-2022 ambulatory [facility] Start: 06-26-2022 End: 06-27-[address] MARCO BOSCH Facility:[facility] Start: 06-22-2022 End: 06-23-[address] MARCO BOSCH Facility:[facility] Start: 05-30-2022 End: 05-31-[address] MARCO BOSCH Facility:[facility] Start: 05-21-2022 End: 05-26-2022 Evaluation and management of inpatient PAYAL ARMIJOUR Facility:[facility] Start: 05-20-2022 End: 05-20-2022 Departed Referred DO Marco Bosch Work Phone: [facility] Start: 05-19-2022 End: 05-21-2022 Evaluation and management of inpatient DR MARCO BOSCH Facility:[facility] Start: 05-10-2022 End: 07-27-[address] MARCO BOSCH Facility:[facility] Start: 04-21-2022 End: 04-22-[address] MARCO BOSCH Facility:[facility] Start: 02-09-2022 End: 02-09-2022 ambulatory Ebonie Keyes LORENA.BIOMETRICS SPECIALIST Work Phone: Telemedicine Comment on above: URI, acute (Primary Dx) Start: 02-09-2022 End: 02-09-2022 Telemedicine consultation with patient Ebonie Keyes IT NETWORK ADMINISTRATOR.BIOMETRICS SPECIALIST Work Phone: [facility] Procedures Date Procedure Procedure Detail Performing Clinician Start: 02-20-2025 BLOOD GAS, ARTERIAL Mar k Den Avery MD Work Phone: Start: 2025 BLOOD GAS, ARTERIAL Chr matt Milligan MD Work Phone: Start: 2025 BASIC METABOLIC PANE L W/ REFLEX TO MG FOR LOW K Jillian Johnson IT NETWORK ADMINISTRATOR - BIOMETRICS SPECIALIST Work Phone: Start: 2025 Blood count complete auto&auto difrntl wbc Jillian Johnson IT NETWORK ADMINISTRATOR - BIOMETRICS SPECIALIST Work Phone: Start: 02-18-2025 BLOOD GAS, ARTERIAL Chr matt Milligan MD Work Phone: Start: 02-17-2025 BLOOD GAS, ARTERIAL Trino Milligan MD Work Phone: Start: 02-16-2025 Radiologic exam ches t 2 views Arleth Milligan MD Work Phone: Start: 02-16-2025 BLOOD GAS, ARTERIAL Trino Milligan MD Work Phone: Start: 02-15-2025 BLOOD GAS, ARTERIAL Trino Milligan MD Work Phone: Start: 02-15-2025 BASIC METABOLIC PANE L W/ REFLEX TO MG FOR LOW K Jillian Johnson IT NETWORK ADMINISTRATOR - BIOMETRICS SPECIALIST Work Phone: Start: 02-15-2025 Blood count complete auto&auto difrntl wbc Jillian Johnson IT NETWORK ADMINISTRATOR - BIOMETRICS SPECIALIST Work Phone: Start: 02-14-2025 BASIC METABOLIC PANE L W/ REFLEX TO MG FOR LOW K Jillian Crystalter IT NETWORK ADMINISTRATOR - BIOMETRICS SPECIALIST Work Phone: Start: 02-14-2025 Blood count complete auto&auto difrntl wbc [facility] Work Phone: Start: 02-14-2025 BLOOD GAS, ARTERIAL Chr dontatopher Cooper Milligan MD Work Phone: Start: 02-14-2025 Rhythm ecg 1-3 leads w/interpretation & report Unknown Provider Result Start: 02-13-2025 End: 02-13-2025 Rhythm ecg 1-3 leads w/interpretation & report Unknown Provider Result Start: 02-13-2025 BLOOD GAS, ARTERIAL Chr matt Milligan MD Work Phone: Start: 02-13-2025 HOME O2 EVAL (DESATU RATION SCREEN) [facility]ian [facility] Work Phone: Start: 02-13-2025 BASIC METABOLIC PANE L W/ REFLEX TO MG FOR LOW K Jillian [facility] Work Phone: Start: 02-13-2025 Blood count complete auto&auto difrntl wbc [facility]ian [facility] Work Phone: Start: 02-13-2025 PULMONARY FUNCTION T EST REPORT Ty Russell MD Work Phone: Start: 02-12-2025 PULSE OXIMETRY, OVERNIGHT Jillian [facility] Work Phone: Start: 02-12-2025 BLOOD GAS, ARTERIAL Chr matt Milligan MD Work Phone: Start: 02-12-2025 End: 02-12-2025 Ecg routine ecg w/least 12 lds i&r only Silvia Fletcher IT NETWORK ADMINISTRATOR - [facility] Work Phone: Start: 02-12-2025 BASIC METABOLIC PANE L W/ REFLEX TO MG FOR LOW K Jillian Alcaraz [facility] IT NETWORK ADMINISTRATOR - [facility] Work Phone: Start: 02-12-2025 Blood count complete auto&auto difrntl wbc Jillian [facility] Work Phone: Start: 02-12-2025 Rhythm ecg 1-3 leads w/interpretation & report Unknown Provider Result Start: 02-11-2025 BLOOD GAS, ARTERIAL Chr matt Milligan MD Work Phone: Start: 02-11-2025 Blood gases any combination ph pco2 po2 co2 hco3 Arleth Milligan MD Work Phone: Start: 02-11-2025 End: 02-11-2025 Rhythm ecg 1-3 leads w/interpretation & report Unknown Provider Result Start: 02-11-2025 Blood gases any combination ph pco2 po2 co2 hco3 Arleth Milligan MD Work Phone: Start: 02-11-2025 BASIC METABOLIC PANE L W/ REFLEX TO MG FOR LOW K Jillian Alcaraz [facility] Work Phone: Start: 02-11-2025 Blood count complete auto&auto difrntl wbc Jillian Alcaraz [facility] Work Phone: Start: 02-11-2025 Rhythm ecg 1-3 leads w/interpretation & report Unknown Provider Result Start: 02-10-2025 Blood gases any combination ph pco2 po2 co2 hco3 Arianne Ryan Dumont MD Work Phone: Start: 02-10-2025 BLOOD GAS, ARTERIAL Gaetano is Ryan Dumont MD Work Phone: Start: 02-10-2025 Assay of troponin quantitative Sony French MD Work Phone: Start: 02-10-2025 RESPIRATORY PANEL, MOLECULAR, WITH COVID-19 Sony French MD Work Phone: Start: 02-10-2025 Ct thorax w/contrast material Sony French MD Work Phone: Start: 02-10-2025 Radiologic exam ches t single view Sony French MD Work Phone: Start: 02-10-2025 Blood gases any combination ph pco2 po2 co2 hco3 Sony French MD Work Phone: Start: 02-10-2025 Comprehensive metabo lic panel Sony French MD Work Phone: Start: 02-10-2025 Ecg routine ecg w/le ast 12 lds i&r only Sony French MD Work Phone: Start: 12-16-2024 Echo tthrc r-t 2d w/wom-mode compl spec&colr d Fabian Root MD Work Phone: Plan of Treatment Date Care Activity Detail Author Start: 09-07-2030 DTaP/Tdap/Td vaccine (2 - Td or Tdap) DTaP/Tdap/Td vaccine (2 - Td or Tdap) [facility] Start: 09-07-2030 Urine microalbumin profile DTAP,TDAP,TD (2 - Td or Tdap) [facility] Start: 09-07-2030 [facility] Start: 2026 [facility] Start: 04-08-2025 End: 04-08-2025 ambulatory [facility] Start: 04-08-2025 End: 04-08-2025 Patient encounter procedure 04/08/2025 2:00 PM EDT Office Visit [facility] [address] [place] [id number] Fabian Root MD [facility] [address] [address] [place] [facility] Raiza Schmitt Comment on above: 6 [place] Start: 06-16-2024 COVID-19 Vaccine () COVID-19 Vaccine () [employer] Start: 06-16-2024 [employer] Start: 04-22-2024 PROSTATE CANCER SCREENING DISCUSSION PROSTATE CANCER SCREENING DISCUSSION [facility] Start: 04-20-2024 GFR test (Diabetes, CKD 3-4, OR last GFR 15-59) GFR test (Diabetes, CKD 3-4, OR last GFR 15-59) [facility] [employer] Start: 04-06-2024 Hemoglobin A1c measurement [facility] Start: 09-11-2023 Annual Wellness Visi t (Medicare) Annual Wellness Visit (Medicare) [facility] Start: 09-11-2023 [employer] Start: 06-16-2022 Influenza vaccination INFLUENZ A (Season Ended) [facility] Start: 10-16-2021 ADVANCE DIRECTIVE DISCUSSION ADVANCE DIRECTIVE DISCUSSION [facility] Start: 02-20-2020 PNEUMOVAX AGE 65 AND OVER WITH 5YR LOOKBACK (#1) PNEUMOVAX AGE 65 AND OVER WITH 5YR LOOKBACK (#1) [facility] Start: 07-24-2017 Shingles vaccine (2 of 3) Shingles vaccine (2 of 3) [facility] [employer] Start: 07-24-2017 SHINGRIX VACCINE (2 of 3) SHINGRIX VACCINE (2 of 3) [facility] Start: 07-24-2017 [employer] Start: 02-20-2000 COLOGUARD (FIT-DNA) COLOGUARD (FIT-D NA) [facility] Start: 02-20-2000 Colonoscopy COLONOSCOPY [facility] Start: 02-20-2000 COLORECTAL CANCER SCREENING COLORECTAL CANCER SCREENING [facility] Start: 02-20-[address] COLONOGRAPHY [facility] Start: 02-20-2000 FECAL OCCULT BLOOD FECAL OCCULT BLOO D [facility] Start: 02-20-2000 Screening for malign ant neoplasm of colon [facility] Start: 02-20-2000 SIGMOIDOSCOPY SIGMOIDOSCOPY [facility] Start: 1973 ANNUAL PCP TEAM FLOOR MANAGER SAWYER DISEASE VISIT ANNUAL PCP TEAM CHRONIC DISEASE VISIT [facility] Start: 1973 BP CONTROLLED (<130/80) BP CONTROLLE D (<130/80) [facility] Start: 1973 Glaucoma screening [facility] Start: 1973 Hepatitis B surface antibody level LDL CHOLESTEROL [facility] Start: 1973 HEPATITIS C SCREENING HEPATITIS C SC REENING [facility] Start: 1973 Hepatitis C [facility] Start: 1973 Urine screening for protein [facility] Start: 1967 Adult depression screening assessment DEPRESSION SCREENING [facility] Start: 1967 Depression Screen Depression Screen [facility] Start: 1967 [facility] Start: 1965 3 comp foot exam completed DIABETIC FOOT EXAM [facility] Start: 1965 Diabetic foot examination [facility] Start: 1965 Hepatitis B screening URINE ALBUMIN:CREATININE RATIO [facility] Start: 1965 Hepatitis C antibody , confirmatory test DILATED RETINAL EXAM [facility] Start: 1965 Lipid panel [facility] Start: 02-20-1960 Hemoglobin A1c/Hemoglobin.total in Blood HBA1C [facility] End: 03-01-2025 Basic metabolic 2000 panel - Serum or Plasma [facility] End: 02-14-2025 Blood Gas, Arterial [facility] End: 03-01-2025 CBC W Auto Differential panel - Blood [facility] Continuous positive airway pressure ventilation treatment [facility] Nasal Cannula Oxygen [facility] Oxygen therapy [Mini mum Data Set] [facility] Positive Expiratory Pressure Therapy [facility] Vibratory Airway Clearance [facility] Immunizations Immunization Date Immunization Notes Care Provider Norma michelle 09-29-2021 COVID-19 vaccine, ag e 12+ yr (PFIZER-BIONTECH - PURPLE TOP) Ebonie Keyes APRN.BIOMETRICS SPECIALIST Work Phone: [facility] Work Phone: 01-07-2021 COVID-19 vaccine, ag e 12+ yr (PFIZER-BIONTECH - PURPLE TOP) Ebonie Keyes APRN.BIOMETRICS SPECIALIST Work Phone: [facility] Work Phone: 12-17-2020 COVID-19 vaccine, ag e 12+ yr (PFIZER-BIONTECH - PURPLE TOP) Ebonie Digennaro IT NETWORK ADMINISTRATOR.[facility] Work Phone: [facility] Work Phone: 09-07-2020 influenza, injectabl e, quadrivalent, contains preservative Ebonie Digennaro IT NETWORK ADMINISTRATOR.[facility] Work Phone: [facility] Work Phone: 09-07-2020 tetanus toxoid, redu manuel diphtheria toxoid, and acellular pertussis vaccine, adsorbed Ebonie Digennaro IT NETWORK ADMINISTRATOR.[facility] Work Phone: [facility] Work Phone: 08-07-2019 influenza, injectabl e, quadrivalent, preservative free Ebonie Digennaro IT NETWORK ADMINISTRATOR.[facility] Work Phone: [facility] Work Phone: 08-27-2018 influenza, injectabl e, quadrivalent, preservative free Ebonie Digennaro IT NETWORK ADMINISTRATOR.[facility] Work Phone: [facility] Work Phone: 08-21-2017 influenza, injectabl e, quadrivalent, preservative free Ebonie Digennaro IT NETWORK ADMINISTRATOR.[facility] Work Phone: [facility] Work Phone: 05-29-2017 zoster vaccine, live Ebonie D igennaro IT NETWORK ADMINISTRATOR.[facility] Work Phone: [facility] Work Phone: 08-15-2016 influenza, injectabl e, quadrivalent, preservative free Ebonie Digennaro IT NETWORK ADMINISTRATOR.[facility] Work Phone: [facility] Work Phone: 09-15-2015 influenza, seasonal, injectable, preservative free Ebonie Digennaro IT NETWORK ADMINISTRATOR.[facility] Work Phone: [facility] Work Phone: 09-15-2015 pneumococcal conjuga te vaccine, 13 valent Ebonie Digennaro IT NETWORK ADMINISTRATOR.[facility] Work Phone: [facility] Work Phone: 07-16-2014 influenza virus vacc ine, unspecified formulation Ebonie Digennaro IT NETWORK ADMINISTRATOR.[facility] Work Phone: [facility] Work Phone: 07-31-2012 influenza virus vacc ine, unspecified formulation Ebonie Digennaro IT NETWORK ADMINISTRATOR.BIOMETRICS SPECIALIST Work Phone: [facility] Work Phone: 07-07-2009 influenza virus vacc ine, unspecified formulation Ebonie Digennaro IT NETWORK ADMINISTRATOR.BIOMETRICS SPECIALIST Work Phone: [facility] Work Phone: 08-26-2008 influenza virus vacc ine, unspecified formulation Ebonie Digennaro IT NETWORK ADMINISTRATOR.[facility] Work Phone: [facility] Work Phone: 08-26-2008 pneumococcal polysaccharide vaccine, 23 valent Ebonie Digennaro IT NETWORK ADMINISTRATOR.[facility] Work Phone: [facility] Work Phone: 08-17-1999 pneumococcal conjuga te vaccine, 7 valent Ebonie Digennaro IT NETWORK ADMINISTRATOR.[facility] Work Phone: [facility] Work Phone: Payers Date Payer Category Payer Self-pay 2023 Unknown [id number] 2018 Unknown MMO MMO [employer] [id number] 2018-Present [phone] [address] [place] [address] O [id number] 1959 Medicare [id number] 1959 Unknown [id number] 1955 Unknown [id number] 2..840.1.251029.3.579.2.718 1955 Unknown [id number] .840.1.117500.3.579.2.718 1955 Unknown [id number] 2.16.840.1.429623.3.579.2.718 1955 Unknown [id number] 2.16.840.1.941838.3.579.2.71 1955 Unknown [id number] 2.16.840.1.120325.3.579.2. 1955 Unknown [id number] 2.16.840.1.926683.3.579.2.71 1955 Unknown [id number] 2.16.840.1.725671.3.579.2.71 1955 Unknown [id number] 2.16.840.1.014569.3.579.2.647 1955 Unknown [id number] 2.16.840.1.568580.3.579.2.59 1955 Unknown [id number] 2.16.840.1.876177.3.579.2.59 1955 Unknown [id number] 2.16.840.1.814585.3.579.2.59 1955 Unknown [id number] 2.16.840.1.317414.3.579.2.593 1955 Unknown [id number] 2.16.840.1.024485.3.579.2.59 1955 Unknown [id number] 2.16.840.1.232420.3.579.2.593 1955 Unknown [id number] 2.16.840.1.260169.3.579.2.59 1955 Unknown [id number] 2.16.840.1.916639.3.579.2.593 1955 Unknown [id number] 2.16.840.1.899980.3.579.2.59 1955 Unknown [id number] 2.16.840.1.878562.3.579.2.593 1955 Unknown [id number] 2.16.840.1.159216.3.579.2.175 1955 Unknown [id number] 2.16.840.1.617039.3.579.2.175 1955 Unknown [id number] 2.16.840.1.845389.3.579.2.175 1955 Unknown [id number] 2.16.840.1.033664.3.579.2.175 1955 Unknown [id number] 2.16.840.1.844594.3.579.2.173 1955 Unknown [id number] 2.16.840.1.847538.3.579.2.173 Unknown [id number] 2.16.840.1.261317.3.579.2.531 Social History Date Type Detail Facility [facility] Start: 1955 Sex Assigned At Not on file [facility] Start: 1955 Sex Assigned At Male F [facility] Start: 04-06-2023 Tobacco smoking stat [facility] Never smoked tobacco [employer] Work Phone: Start: 04-06-2023 Tobacco use and exposure Smokeless tobacco non-user [employer] Start: 09-17-2024 End: 2025 Alcoholic beverage intake Lifetime non-drinker (finding) [employer] Start: 09-17-2024 End: 02-11-2025 History of Social function [employer] Start: 09-17-2024 End: 02-11-2025 Tobacco use panel [employer] Read-Only, Retired: Physical Abuse Denies [employer] Has the electric, Giv.to, [place], or water [employer] threatened to shut off services in your home in past 12Mo No [employer] How often to you hav e a drink containing alcohol? Never [employer] [facility] [employer] (I/We) worried wheth er (my/our) food would run out before (I/we) got money to buy more. Never true Jean Paul Delgadillo [employer] Start: 06-24-2022 Sex Male (finding) Jean Paul [facility] [employer] Functional Status Date Assessment Result Facility Jean Paul bingham [employer] Clinical Notes 12-20-2021 to 02-28-2025 Drea Huff RN - 02/28/2025 6:43 PM EDSilvia Clay, PHILLY - 02/28/2025 2:43 PM Henna Ga LACQUER SIZER - 02/28/2025 1:[address], LD - 02/28/2025 12:20 PM EDTDischarge Instr - Diet Note Date & Type Note Facility 02-28-2025 History of Present illness Narrative Discharge instructions reviewed with the patient including medication changes in detail. Education regarding side effects were addressed along with labs and appointments. All questions and concerns were answered. Unit number provided to the patient should they come up with any questions once they are home. Patient verbalizes understanding of instructions. All personal belonging are with patient. Physical Therapy Facility/Department: [facility] Daily Treatment Note NAME: Evgeny Delgado : 1955 Date of Service: 02/28/2025 Discharge Recommendations: Continue to assess pending progress Patient Diagnosis(es): The primary encounter diagnosis was Acute respiratory failure with hypoxia and hypercapnia (HCC). Diagnoses of Muscular dystrophies (HCC), Chronic diastolic heart failure (HCC), and Chronic respiratory failure with hypoxia and hypercapnia (HCC) were also pertinent to this visit. Assessment Assessment: Transfers: IND. Gait wiht WW 95ftx1 wiht no noted LOB and good line amnagement of O2 line. Seated exercises B LE x20. STS x10 Activity Tolerance: Patient tolerated treatment well Plan Physical Therapy Plan General Plan: 2 times a day 7 days a week Specific Instructions for Next Treatment: 1x per week on weekends and holidays Current Treatment Recommendations: Strengthening;ROM;Balance training;Functional mobility training;Transfer training;Gait training;Stair training;Home exercise program;Safety education & training;Patient/Caregiver education & training;Equipment evaluation, education, & procurement;Positioning;Therapeuti c activities Restrictions Restrictions/Precautions Restrictions/Precautions: General Precautions, Fall Risk Required Braces or Orthoses?: Yes Required Braces or Orthoses Right Lower Extremity Brace: Ankle Foot Orthotics Left Lower Extremity Brace: Dinorah Foot Orthotics Subjective Subjective Subjective: Pt. in restroom upon arrival with call llight on, agreeable to therapy at this time. Pain: denies Objective Bed Mobility Training Bed Mobility Training: No Transfer Training Transfer Training: Yes Overall Level of Assistance: Independent Interventions: Verbal cues Sit to Stand: Independent Stand to Sit: Independent Gait Gait Training: Yes Overall Level of Assistance: Independent Distance (ft): 95 Feet Assistive Device: Walker, rollator Interventions: Verbal cues Speed/Diane: Slow Step Length: Left shortened;Right shortened Swing Pattern: Left asymmetrical;Right asymmetrical Gait Abnormalities: Hip hike;Foot drop PT Exercises Exercise Treatment: Seated exercises B LE x20. STS x10 Other Specialty Interventions Other Treatments/Modalities: standing urinal use Safety Devices Type of Devices: All fall risk precautions in place;Call light within reach;Left in chair Goals Short Term Goals Time Frame for Short Term Goals: 20 visits Short Term Goal 1: Patient will tolerate 20-30' ther-ex in order to increase endurance and ease ADLS Short Term Goal 2: Patient will ascend/descend 4 steps with handrail with supervision assistance in order to safely enter/exit the home Short Term Goal 3: Patient will complete bed mobility and transfers independently in order to return to PLOF Short Term Goal 4: Patient will ambulate 200 feet with rollator with supervision assistance in order to return to PLOF Education Patient Education Education Given To: Patient Education Provided: Role of Therapy;Plan of Care;Home Exercise Program Education Method: Verbal Barriers to Learning: None Education Outcome: Verbalized understanding Therapy Time Individual Concurrent Group Co-treatment Time In 1256 Time Out 1319 Minutes 23 Silvia Stearns PTA Cosigned by Rob Rojas PT at 02/28/2025 3:22 PM EDT A home oxygen evaluation has been completed. [x]Patient is an inpatient. It is expected that the patient will be discharged within the next 48 hours. Qualified provider to write order for home prescription if patient qualifies. If patient is active, arrange for Home Medical supplier to assess for Oxygen Conserving Device per pulse oximetry. []Patient is an outpatient. Results will be faxed to the ordering provider. Qualified provider to write order for home prescription if patient qualifies and arranges for home oxygen. Patient was placed on room air for 10 minutes. SpO2 was 84 % on room air at rest. Applied 2 lpm Nasal cannula for keep SpO2 >90%. Acutal SpO2 on 2 lpm nasal cannula was 97%. Patient qualifies for home oxygen. Comprehensive Nutrition Assessment Type and Reason for Visit: Reassess Nutrition Recommendations/Plan: Continue current diet. 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 Meal intakes are good. Nutrition Related Findings: Active bowel sounds, + 3 pitting RLE, + 2 pitting LLE Wound Type: None Current Nutrition Intake & Therapies: Average Meal Intake: 76-100% Average Supplements Intake: None Ordered ADULT DIET; Regular Anthropometric Measures: Height: 175.3 cm (5' 9.02 ) [place] Body Weight (IBW): 160 lbs (73 kg) Admission Body Weight: 89.8 kg (198 lb) Current Body Weight: 94.1 kg (207 lb 7.3 oz), 125.9 % IBW. Weight Source: Bed scale Current BMI (kg/m2): 30.6 Usual Body Weight: 90.3 kg (199 lb) (in December and 198# at admission) % Weight Change (Calculated): 3.6 Weight Adjustment For: No Adjustment BMI Categories: Obese Class 1 (BMI 30.0-34.9) Estimated Daily Nutrient Needs: Energy Requirements Based On: Kcal/kg Weight Used for Energy Requirements: Current Energy (kcal/day): 9635-7100 (18-22kcal/kg) Weight Used for Protein Requirements: [place] Protein (g/day): 87-102 (1.2-1.4 g/kg) Method Used for Fluid Requirements: 1 ml/kcal Fluid (ml/day): 1999 Lab Results Component Value Date/Time LABA1C 7.6 04/06/2023 08:43 AM Nutrition Diagnosis: Limited adherence to nutrition-related recommendations related to endocrine dysfunction as evidenced by lab values, other (Diet) Nutrition Interventions: Food and/or Nutrient Delivery: Continue Current Diet Nutrition Education/Counseling: Education/Counseling declined Coordination of Nutrition Care: Continue to monitor while inpatient Plan of Care discussed with: patient Goals: Goals: Meet at least 75% of estimated needs, PO intake 75% or greater Type of Goal: Continue current goal Previous Goal Met: Progressing toward Goal(s) Nutrition Monitoring and Evaluation: Behavioral-Environmental Outcomes: Readiness for Change, Beliefs and Attitudes Food/Nutrient Intake Outcomes: Food and Nutrient Intake Physical Signs/Symptoms Outcomes: Biochemical Data, Fluid Status or Edema, Weight Discharge Planning: Continue current diet [address], [place] Contact: [phone] RESPIRATORY ASSESSMENT PROTOCOL Patient Name: Evgeny Delgado Room#: 0328/0328-01 : 1955 Admitting diagnosis: Acute on chronic respiratory failure with hypoxia and hypercapnia (HCC) [J96.21, J96.22] Medical History: Past Medical History: Diagnosis Date Aortic stenosis CHF (congestive heart failure) (HCC) Diabetes mellitus (HCC) FSHD (facioscapulohumeral muscular dystrophy) (HCC) HFrEF (heart failure with reduced ejection fraction) (HCC) HLD (hyperlipidemia) HTN (hypertension) Nonischemic cardiomyopathy (HCC) PATIENT ASSESSMENT LABORATORY DATA Hematology: Lab Results Component Value Date/Time WBC 7.0 2025 05:45 AM RBC 4.84 2025 05:45 AM HGB 12.1 2025 05:45 AM HCT 43.5 2025 05:45 AM PLT 154 2025 05:45 AM Chemistry: Lab Results Component Value Date/Time PHART 7.368 02/20/2025 05:32 AM UKB9WUX 64.6 02/20/2025 05:32 AM PO2ART 88.0 02/20/2025 05:32 AM [id number] 96.2 02/20/2025 05:32 AM RHN9TEX 36.3 02/20/2025 05:32 AM PBEA 8.4 02/20/2025 05:32 AM VITALS Pulse: 70 Respirations: 16 BP: (!) 91/58 SpO2: 97 % O2 Device: Nasal cannula Temp: 97.9 F (36.6 C) SKIN COLOR [x] Normal [] Pale [] Dusky [] Cyanotic RESPIRATORY PATTERN [x] Normal [] Dyspnea [] Romel-Byrd [] Kussmaul [] Biots AMBULATORY [] Yes [] No [x] With Assistance PEAK FLOW Predicted: Personal Best: Patient Acuity 0 1 2 3 4 Score Level of Consciousness (LOC) [x] Alert & Oriented or Pt normal LOC [] Confused;follows directions [] Confused & uncooper-ative [] Obtunded [] Comatose 0 Respiratory Rate (RR) [x] Reg. rate & pattern. 12 - 20 bpm [] Increased RR. Greater than 20 bpm [] SOB w/ exertion or RR greater than 24 bpm [] Access- ory muscle use at rest. Abn. resp. [] SOB at rest. 0 Bilateral Breath Sounds (BBS) [] Clear [] Diminish-ed bases [x] Diminish-ed t/o, or rales [] Sporadic, scattered wheezes or rhonchi [] Persistentwheezes and, or absent BBS 2 Cough [x] Strong, effective, & non-prod. [] Effective & prod. Less than 25 ml (2 TBSP) over past 24 hrs [] Ineffective & non-prod to less than 25 ML over past 24 hrs [] Ineffective and, or greater than 25 ml sputum prod. past 24 hrs. [] Nonspon- taneous; Requires suctioning 0 Pulmonary History (PULM HX) [] No smoking and no chronic pulmonary history [] Former smoker. Quit over 12 mos. ago [] Current smoker or quit w/ in 12 mos [] Pulm. History and, or 20 pk/yr smoking hx [x] Admitted w/ acute pulm. dx and, or has been admitted w/ pulm. dx 2 or more times over past 12 mos 4 Surgical History this Admit (SURG HX) [x] No surgery [] General surgery [] Lower abdominal [] Thoracic or upper abdominal [] Thoracic w/ pulm. disease 0 Chest X-Ray (CXR)/CT Scan [] Clear or not applicable [] Not available [x] Atelectasis or pleural effusions [] Localized infiltrate or pulm. edema [] Con-solidated Infiltrates, bilateral, or in more than 1 lobe 2 TOTAL ACUITY: 8 CARE PLAN If Acuity Level is 2, 3, or 4 in any of the following: [x] BILATERAL BREATH SOUNDS (BBS) [x] PULMONARY HISTORY (PULM HX) [] Respiratory Rate (RR) Goal: Improve respiratory functions in patients with airway disease and decrease WOB [x] AEROSOL PROTOCOL Total Acuity: 14-28 [] Secondary Assessment in 24 hrs Total Acuity: 9-13 [] Secondary Assessment in 24 hrs Total Acuity: 4-8 [x] Secondary Assessment in 24 hrs Total Acuity: 0-3 [] Secondary Assessment in 48 hrs HHN AEROSOL THERAPY with [physician-ordered bronchodilator(s)] q 4 & Albuterol PRN q2 hrs. Breath-Actuated Neb if BBS Acuity = 4, and pt. can use MP. Notify physician if condition deteriorates. HHN AEROSOL THERAPY with [physician-ordered bronchodilator(s)] QID and Albuterol PRN q4 hrs. Breath-Actuated Neb if BBS Acuity = 4, and pt. can use MP. Notify physician if condition deteriorates. MDI THERAPY with 2 actuations of [physician-ordered bronchodilator(s)] via spacer TID Albuterol and PRN q4 hrs. If unable to utilize MDI: HHN [physician-ordered bronchodilator(s)] TID and Albuterol PRN q4 hrs. Notify physician if condition deteriorates. MDI THERAPY with [physician-ordered bronchodilator(s)] via spacer TID PRN. If unable to utilize MDI: HHN [physician-ordered bronchodilator(s)] TID PRN. Notify physician if condition deteriorates. If Acuity Level is 2, 3, or 4 in any of the following: [] COUGH [] SURGICAL HISTORY (SURG HX) [x] CHEST XRAY (CXR) Goal: Improvement in sputum mobilization in patients with ineffective airway clearance. Reverse atelectasis. [x] Bronchopulmonary Hygiene Protocol Total Acuity: 14-28 [] Secondary Assessment in 24 hrs Total Acuity: 9-13 [] Secondary Assessment in 24 hrs Total Acuity: 4-8 [x] Secondary Assessment in 24 hrs Total Acuity: 0-3 [] Secondary Assessment in 48 hrs METANEB QID with [physician-ordered bronchodilator(s)] if CXR Acuity = 4; otherwise: PD&P, Oscillatory Therapy, or Vest QID & PRN AND PEP QID & PRN NT Sxn PRN for ineffective cough METANEB QID with [physician-ordered bronchodilator(s)] if CXR Acuity = 4; otherwise: PD&P, Oscillatory Therapy or Vest QID & PRN AND PEP QID & PRN NT Sxn PRN for ineffective cough PD&P, Oscillatory Therapy, or Vest TID & PRN AND PEP TID & PRN Instruct patient to self-perform IS q1hr WA If Acuity Level is 2 or above in the following: [] PULMONARY HISTORY (PULM HX) Goal: Assist patient in quitting smoking to slow or stop the progression of lung disease. [] Smoking Cessation Protocol SMOKING CESSATION EDUCATION provided according to policy RT_201: (fabian with an X) ____Yes ____ No ____ NA Smoking Cessation Booklet given: ____Yes ____No ____Patient Refused Physical Therapy Facility/Department: [facility] Daily Treatment Note NAME: Evgeny Delgado : 1955 Date of Service: 02/28/2025 Discharge Recommendations: Continue to assess pending progress Patient Diagnosis(es): The primary encounter diagnosis was Acute respiratory failure with hypoxia and hypercapnia (HCC). Diagnoses of Muscular dystrophies (HCC), Chronic diastolic heart failure (HCC), and Chronic respiratory failure with hypoxia and hypercapnia (HCC) were also pertinent to this visit. Assessment Assessment: Transfers: Mod I/ IND. Supine and seated exercises B LE x20. Gait with WW, Mod I 95ftx1 with no noted LOB and good line management with gait. Activity Tolerance: Patient tolerated treatment well Plan Physical Therapy Plan General Plan: 2 times a day 7 days a week Specific Instructions for Next Treatment: 1x per week on weekends and holidays Current Treatment Recommendations: Strengthening;ROM;Balance training;Functional mobility training;Transfer training;Gait training;Stair training;Home exercise program;Safety education & training;Patient/Caregiver education & training;Equipment evaluation, education, & procurement;Positioning;Therapeuti c activities Restrictions Restrictions/Precautions Restrictions/Precautions: General Precautions, Fall Risk Required Braces or Orthoses?: Yes Required Braces or Orthoses Right Lower Extremity Brace: Ankle Foot Orthotics Left Lower Extremity Brace: Dinorah Foot Orthotics Subjective Subjective Subjective: Pt in chair upon arrival, agreeable to therapy at this time. Pain: LBP does not rate Objective Bed Mobility Training Bed Mobility Training: No Transfer Training Transfer Training: Yes Overall Level of Assistance: Modified independent;Independent Interventions: Verbal cues Sit to Stand: Modified independent;Independent Stand to Sit: Modified independent;Independent Gait Gait Training: Yes Overall Level of Assistance: Modified independent;Independent Distance (ft): 95 Feet Assistive Device: Walker, rollator Interventions: Verbal cues Speed/Diane: Slow Step Length: Left shortened;Right shortened Swing Pattern: Left asymmetrical;Right asymmetrical Gait Abnormalities: Hip hike;Foot drop PT Exercises Exercise Treatment: Reclined and seated exercises B LE x20 Other Specialty Interventions Other Treatments/Modalities: standing urinal use Safety Devices Type of Devices: All fall risk precautions in place;Call light within reach;Nurse notified (pt. in restroom) Goals Short Term Goals Time Frame for Short Term Goals: 20 visits Short Term Goal 1: Patient will tolerate 20-30' ther-ex in order to increase endurance and ease ADLS Short Term Goal 2: Patient will ascend/descend 4 steps with handrail with supervision assistance in order to safely enter/exit the home Short Term Goal 3: Patient will complete bed mobility and transfers independently in order to return to PLOF Short Term Goal 4: Patient will ambulate 200 feet with rollator with supervision assistance in order to return to PLOF Education Patient Education Education Given To: Patient Education Provided: Role of Therapy;Plan of Care;Home Exercise Program Education Method: Verbal Barriers to Learning: None Education Outcome: Verbalized understanding Therapy Time Individual Concurrent Group Co-treatment Time In 0830 Time Out 0857 Minutes 27 Silvia Stearns PTA Cosigned by Lee Mendez PT at 02/28/2025 10:46 AM EDT Images from the original note were not included. 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 male sitting up in chair on 2L of oxygen. No distress or complaints. No other complaints. Updated that we are in contact with his work place and insurance companies for approval. Also updated him to those individuals within our organization that are assisting as well . ROS: Constitutional: negative for fevers, and negative for chills. Respiratory: negative for shortness of breath, negative for cough, and negative for wheezing Cardiovascular: negative for chest pain, and negative for palpitations Gastrointestinal: negative for abdominal pain, negative for nausea,negative for vomiting, negative for diarrhea, and negative for constipation All other systems were reviewed with the patient and are negative unless otherwise stated in HPI. OBJECTIVE: VITAL SIGNS: Patient Vitals for the past 8 hrs: BP Temp Temp src Pulse Resp SpO2 Weight 02/28/25 0730 (!) 91/58 97.9 F (36.6 C) Temporal 70 16 93 % -- 02/28/25 0516 -- -- -- -- -- -- 94.1 kg (207 lb 8 oz) Temp: 97.9 F (36.6 C) Temp range: Temp Av.1 F (36.7 C) Min: 97.9 F (36.6 C) Max: 98.3 F (36.8 C) BP: (!) 91/58 BP Range: Systolic (24hrs), Av , Min:91 , Max:124 Diastolic (24hrs), Av, Min:58, Max:72 Pulse: 70 Pulse Range: Pulse Av.3 Min: 70 Max: 76 Respirations: 16 Resp Range: Resp Av Min: 16 Max: 16 SpO2: 93 % on supplemental O2 SpO2 range: SpO2 Av.5 % Min: 93 % Max: 94 % Weight Wt Readings from Last 3 Encounters: 02/28/25 94.1 kg (207 lb 8 oz) 12/16/24 90.3 kg (199 lb) 09/17/24 90.3 kg (199 lb) Body mass index is 30.63 kg/m . 24HR INTAKE/OUTPUT: Intake/Output Summary (Last 24 hours) at 02/28/2025 0916 Last data filed at 02/28/2025 0730 Gross per 24 hour Intake 540 ml Output 2700 ml Net -2160 ml Date 02/28/25 0000 - 02/28/25 2359 Shift [id number] 4306-7535 1753-1765 24 Hour Total INTAKE P.O. 300 300 Shift Total(mL/kg) 300(3.3) 300(3.3) OUTPUT Urine(mL/kg/hr) 800(1.1) 800 Shift Total(mL/kg) 800(8.8) 800(8.8) Weight (kg) 90.9 90.9 90.9 90.9 PHYSICAL EXAM: GEN: Awake and following commands: [] No [x] Yes MENTAL STATUS: alert and oriented x3. DISTRESS: Acute respiratory distress: [x] No [] Yes EYES: EOMI, pupils equal NECK: Supple. No lymphadenopathy. No carotid bruit CVS: regular rate and rhythm, 2/6 systolic murmur PULM: diminished but clear, no acute respiratory distress ABD: Bowels sounds normal. Abdomen is soft. No distention. no tenderness to palpation. EXT: Slight edema bilaterally but right > left . No calf tenderness. NEURO: Moves all extremities. Motor and sensory are grossly intact SKIN: No rashes. No skin lesions. DATA: Complete Blood Count: Latest Reference Range & Units 02/19/25 05:45 WBC 3.5 - 11.3 k/uL 7.0 RBC 4.21 - 5.77 m/uL 4.84 Hemoglobin Quant 13.0 - 17.0 g/dL 12.1 (L) Hematocrit 40.7 - 50.3 % 43.5 MCV 82.6 - 102.9 fL 89.9 MCH 25.2 - 33.5 pg 25.0 (L) MCHC 28.4 - 34.8 g/dL 27.8 (L) MPV 8.1 - 13.5 fL 10.3 RDW 11.8 - 14.4 % 19.0 (H) Platelet Count 138 - 453 k/uL 154 Neutrophils % 36 - 65 % 69 (H) Lymphocyte % 24 - 43 % 19 (L) Monocytes % 3 - 12 % 8 Eosinophils % 1 - 4 % 2 Basophils % 0 - 2 % 1 Neutrophils Absolute 1.50 - 8.10 k/uL 4.83 Lymphocytes Absolute 1.10 - 3.70 k/uL 1.33 Monocytes Absolute 0.10 - 1.20 k/uL 0.56 Eosinophils Absolute 0.00 - 0.44 k/uL 0.14 Basophils Absolute 0.00 - 0.20 k/uL 0.07 Immature Granulocytes % 0 % 1 (H) Morphology Platelet scan shows Normal Platelets POIKILOCYTOSIS PRESENT Immature Granulocytes Absolute 0.00 - 0.30 k/uL 0.07 NRBC Automated 0.0 per 100 WBC 0.0 (L): Data is abnormally low (H): Data is abnormally high Latest Reference Range & Units 02/10/25 16:18 02/11/25 05:08 02/12/25 05:05 02/13/25 06:12 02/14/25 06:35 02/15/25 06:00 02/19/25 05:45 WBC 3.5 - 11.3 k/uL 7.1 6.4 6.4 6.6 5.9 6.0 7.0 RBC 4.21 - 5.77 m/uL 5.94 (H) 5.17 5.15 5.59 5.46 5.07 4.84 Hemoglobin Quant 13.0 - 17.0 g/dL 14.6 12.8 (L) 12.9 (L) 14.0 13.5 12.7 (L) 12.1 (L) Hematocrit 40.7 - 50.3 % 53.0 (H) 45.7 45.9 49.6 48.3 45.6 43.5 MCV 82.6 - 102.9 fL 89.2 88.4 89.1 88.7 88.5 89.9 89.9 MCH 25.2 - 33.5 pg 24.6 (L) 24.8 (L) 25.0 (L) 25.0 (L) 24.7 (L) 25.0 (L) 25.0 (L) MCHC 28.4 - 34.8 g/dL 27.5 (L) 28.0 (L) 28.1 (L) 28.2 (L) 28.0 (L) 27.9 (L) 27.8 (L) MPV 8.1 - 13.5 fL 9.4 10.1 10.6 10.1 10.2 10.7 10.3 RDW 11.8 - 14.4 % 18.2 (H) 17.6 (H) 18.0 (H) 18.1 (H) 18.7 (H) 18.5 (H) 19.0 (H) Platelet Count 138 - 453 k/uL 162 166 161 144 135 (L) 151 154 Neutrophils % 36 - 65 % 73 (H) 66 (H) 63 61 69 (H) 69 (H) 69 (H) Lymphocyte % 24 - 43 % 18 (L) 24 25 28 21 (L) 22 (L) 19 (L) Monocytes % 3 - 12 % 7 8 8 7 7 6 8 Eosinophils % 1 - 4 % 1 1 2 2 2 2 2 Basophils % 0 - 2 % 0 0 1 1 0 0 1 Neutrophils Absolute 1.50 - 8.10 k/uL 5.18 4.23 4.04 4.02 4.07 4.14 4.83 Lymphocytes Absolute 1.10 - 3.70 k/uL 1.28 1.54 1.60 1.85 1.24 1.32 1.33 Monocytes Absolute 0.10 - 1.20 k/uL 0.50 0.51 0.51 0.46 0.41 0.36 0.56 Eosinophils Absolute 0.00 - 0.44 k/uL 0.07 0.06 0.13 0.13 0.12 0.12 0.14 Basophils Absolute 0.00 - 0.20 k/uL 0.00 0.00 0.06 0.07 0.00 0.00 0.07 Immature Granulocytes % 0 % 1 (H) 1 (H) 1 (H) 1 (H) 1 (H) 1 (H) 1 (H) Morphology HYPOCHROMIA PRESENT HYPOCHROMIA PRESENT HYPOCHROMIA PRESENT HYPOCHROMIA PRESENT Normal Normal Platelet scan shows Normal Platelets POIKILOCYTOSIS PRESENT Immature Granulocytes Absolute 0.00 - 0.30 k/uL 0.07 0.06 0.06 0.07 0.06 0.06 0.07 NRBC Automated 0.0 per 100 WBC 0.0 0.0 0.0 0.0 0.0 0.0 0.0 (H): Data is abnormally high (L): Data is abnormally low Latest Reference Range & Units 02/10/25 16:18 02/10/25 18:53 Troponin, High Sensitivity 0 - 22 ng/L 149 (HH) 131 (HH) (HH): Data is critically high Latest Reference Range & Units 02/10/25 16:18 NT Pro-BNP 0 - 125 pg/mL 147 (H) (H): Data is abnormally high Comprehensive Metabolic Profile: Latest Reference Range & Units 02/19/25 05:45 Sodium 136 - 145 mmol/L 141 Potassium 3.7 - 5.3 mmol/L 4.1 Chloride 98 - 107 mmol/L 100 CARBON DIOXIDE 20 - 31 mmol/L 36 (H) BUN,BUNPL 8 - 23 mg/dL 15 Creatinine 0.70 - 1.20 mg/dL 0.5 (L) Bun/Cre 9 - 20 30 (H) Anion Gap 9 - 16 mmol/L 5 (L) Est, Glom Filt Rate >60 mL/min/1.73m2 >90 Glucose 74 - 99 mg/dL 121 (H) Calcium 8.6 - 10.4 mg/dL 8.6 (H): Data is abnormally high (L): Data is abnormally low Latest Reference Range & Units 02/10/25 16:18 02/10/25 18:53 02/11/25 05:08 02/12/25 05:05 02/13/25 06:12 02/14/25 06:35 02/15/25 06:00 02/19/25 05:45 Sodium 136 - 145 mmol/L 140 140 141 139 140 141 141 Potassium 3.7 - 5.3 mmol/L 4.6 3.9 4.2 4.4 4.6 4.0 4.1 Chloride 98 - 107 mmol/L 91 (L) 96 (L) 96 (L) 96 (L) 96 (L) 96 (L) 100 CARBON DIOXIDE 20 - 31 mmol/L 41 (HH) 39 (H) 37 (H) 36 (H) 38 (H) 36 (H) 36 (H) BUN,BUNPL 8 - 23 mg/dL 14 14 15 14 16 16 15 Creatinine 0.70 - 1.20 mg/dL 0.5 (L) 0.4 (L) 0.5 (L) 0.5 (L) 0.5 (L) 0.5 (L) 0.5 (L) Bun/Cre 9 - 20 28 (H) 35 (H) 30 (H) 28 (H) 32 (H) 32 (H) 30 (H) Anion Gap 9 - 16 mmol/L 8 (L) 5 (L) 8 (L) 7 (L) 6 (L) 9 5 (L) Est, Glom Filt Rate >60 mL/min/1.73m2 >90 >90 >90 >90 >90 >90 >90 Glucose 74 - 99 mg/dL 182 (H) 107 (H) 121 (H) 117 (H) 109 (H) 122 (H) 121 (H) Calcium 8.6 - 10.4 mg/dL 9.5 8.7 9.0 9.1 9.0 8.7 8.6 Albumin/Globulin Ratio 1.0 - 2.5 1.8 Total Protein 6.6 - 8.7 g/dL 6.7 Troponin, High Sensitivity 0 - 22 ng/L 149 (HH) 131 (HH) NT Pro-BNP 0 - 125 pg/mL 147 (H) Albumin 3.5 - 5.2 g/dL 4.3 Alkaline Phosphatase 40 - 129 U/L 96 ALT 10 - 50 U/L 21 AST 10 - 50 U/L 24 Total Bilirubin 0.00 - 1.20 mg/dL 0.7 (HH): Data is critically high (L): Data is abnormally low (H): Data is abnormally high ABGs: Latest Reference Range & Units 02/19/25 06:39 02/20/25 05:32 pH, Arterial 7.35 - 7.45 7.318 (L) 7.368 pH, Art, Temp Adj 7.350 - 7.450 7.318 (L) 7.368 pCO2, Art, Temp Adj 35.0 - 45.0 77.6 (HH) 64.6 (HH) pCO2, Arterial 35 - 45 mmHg 77.6 (HH) 64.6 (HH) pO2, Art, Temp Adj 80.0 - 100.0 mmHg 69.9 (L) 88.0 pO2, Arterial 80.0 - 100.0 mmHg 69.9 (L) 88.0 HCO3, Arterial 22 - 26 mmol/L 38.9 (H) 36.3 (H) Positive Base Excess, Art 0.0 - 2.0 mmol/L 9.3 (H) 8.4 (H) O2 Sat, Arterial 95 - 98 % 91.8 (L) 96.2 Pt Temp 37.0 37.0 Sample Site Right Radial Artery Right Radial Artery O2 Device/Flow/% Cannula ROOM AIR Text for Respiratory Called to PROVIDER on 11/22/2024 at 06:42 Called to RN on 02/20/2025 at 05:34 (HH): Data is critically high (L): Data is abnormally low (H): Data is abnormally high (H): Data is abnormally high Latest Reference Range & Units 02/17/25 15:08 02/18/25 05:45 pH, Arterial 7.35 - 7.45 7.548 (H) 7.348 (L) pH, Art, Temp Adj 7.350 - 7.450 7.548 (HH) 7.348 (L) pCO2, Art, Temp Adj 35.0 - 45.0 32.1 (L) 72.7 (HH) pCO2, Arterial 35 - 45 mmHg 32.1 (L) 72.7 (HH) pO2, Art, Temp Adj 80.0 - 100.0 mmHg 86.4 93.7 pO2, Arterial 80.0 - 100.0 mmHg 86.4 93.7 HCO3, Arterial 22 - 26 mmol/L 27.3 (H) 39.1 (H) Positive Base Excess, Art 0.0 - 2.0 mmol/L 5.4 (H) 10.1 (H) O2 Sat, Arterial 95 - 98 % 97.6 96.5 Pt Temp 37.0 37.0 Sample Site Left Radial Artery Right Radial Artery O2 Device/Flow/% BIPAP BIPAP Text for Respiratory Called to RN on 02/18/2025 at 05:49 (HH): Data is critically high (H): Data is abnormally high (L): Data is abnormally low Latest Reference Range & Units 02/15/25 06:32 02/16/25 06:15 pH, Arterial 7.35 - 7.45 7.290 (L) 7.304 (L) pH, Art, Temp Adj 7.350 - 7.450 7.290 (LL) 7.304 (L) pCO2, Art, Temp Adj 35.0 - 45.0 85.6 (HH) 81.3 (HH) pCO2, Arterial 35 - 45 mmHg 85.6 (HH) 81.3 (HH) pO2, Art, Temp Adj 80.0 - 100.0 mmHg 66.0 (L) 64.9 (L) pO2, Arterial 80.0 - 100.0 mmHg 66.0 (L) 64.9 (L) HCO3, Arterial 22 - 26 mmol/L 40.2 (H) 39.5 (H) Positive Base Excess, Art 0.0 - 2.0 mmol/L 10.1 (H) 9.4 (H) O2 Sat, Arterial 95 - 98 % 91.2 (L) 89.6 (L) Pt Temp 37.0 37.0 Sample Site Right Brachial Artery Right Radial Artery O2 Device/Flow/% Cannula Cannula Text for Respiratory Called to RN on 02/15/2025 at 06:35 Called to RN on 02/16/2025 at 06:18 (LL): Data is critically low (HH): Data is critically high (L): Data is abnormally low (H): Data is abnormally high Latest Reference Range & Units 02/13/25 10:10 02/14/25 06:05 pH, Arterial 7.35 - 7.45 7.359 7.339 (L) pH, Art, Temp Adj 7.350 - 7.450 7.359 7.339 (L) pCO2, Art, Temp Adj 35.0 - 45.0 71.6 (HH) 74.2 (HH) pCO2, Arterial 35 - 45 mmHg 71.6 (HH) 74.2 (HH) pO2, Art, Temp Adj 80.0 - 100.0 mmHg 63.4 (L) 129.5 (H) pO2, Arterial 80.0 - 100.0 mmHg 63.4 (L) 129.5 (H) HCO3, Arterial 22 - 26 mmol/L 39.5 (H) 39.0 (H) Positive Base Excess, Art 0.0 - 2.0 mmol/L 10.6 (H) 9.8 (H) O2 Sat, Arterial 95 - 98 % 90.5 (L) 98.3 (H) (HH): Data is critically high (L): Data is abnormally low (H): Data is abnormally high Latest Reference Range & Units 02/11/25 09:04 02/11/25 11:59 02/12/25 07:21 pH, Arterial 7.35 - 7.45 7.343 (L) 7.335 (L) pH, Art, Temp Adj 7.350 - 7.450 7.343 (L) 7.335 (L) pCO2, Art, Temp Adj 35.0 - 45.0 64.9 (HH) 65.4 (HH) pCO2, Arterial 35 - 45 mmHg 64.9 (HH) 65.4 (HH) pO2, Art, Temp Adj 80.0 - 100.0 mmHg 73.1 (L) 80.8 pO2, Arterial 80.0 - 100.0 mmHg 73.1 (L) 80.8 HCO3, Arterial 22 - 26 mmol/L 34.5 (H) 34.1 (H) Positive Base Excess, Art 0.0 - 2.0 mmol/L 6.3 (H) 5.8 (H) O2 Sat, Arterial 95 - 98 % 93.4 (L) 94.9 (L) pH, Galo 7.32 - 7.42 7.321 pH, Galo, Temp Adj 7.320 - 7.420 7.321 pCO2, Galo 39 - 55 mm Hg 82.0 (HH) pO2, Galo 30.0 - 50.0 mm Hg 35.3 pO2, Galo, Temp Adj 30.0 - 50.0 mmHg 35.3 Bicarbonate, Venous 24.0 - 30.0 mmol/L 41.4 (H) Positive Base Excess, Galo 0.0 - 2.0 mmol/L 11.3 (H) O2 Saturation Venous 60.0 - 85.0 % 59.9 (L) Pt Temp 37.0 37.0 37.0 Sample Site Right Radial Artery Right Brachial Artery Set Rate 1 1 O2 Device/Flow/% Cannula Cannula HEATED HIGH FLOW Text for Respiratory Called to RN on 02/11/2025 at 09:07 Called to RN on 02/11/2025 at 12:02 Called to RN on 02/12/2025 at 07:24 (HH): Data is critically high (L): Data is abnormally low (H): Data is abnormally high Latest Reference Range & Units 02/10/25 16:26 02/10/25 21:01 02/10/25 23:05 02/11/25 05:20 pH, Arterial 7.35 - 7.45 7.389 pH, Art, Temp Adj 7.350 - 7.450 7.389 pCO2, Art, Temp Adj 35.0 - 45.0 73.5 (HH) pCO2, Arterial 35 - 45 mmHg 73.5 (HH) pO2, Art, Temp Adj 80.0 - 100.0 mmHg 66.6 (L) pO2, Arterial 80.0 - 100.0 mmHg 66.6 (L) HCO3, Arterial 22 - 26 mmol/L 43.4 (H) Positive Base Excess, Art 0.0 - 2.0 mmol/L 14.4 (H) O2 Sat, Arterial 95 - 98 % 92.2 (L) pH, Galo 7.32 - 7.42 7.368 7.408 7.336 pH, Galo, Temp Adj 7.320 - 7.420 7.368 7.408 7.336 pCO2, Galo 39 - 55 mm Hg 72.0 (HH) 62.0 (HH) 76.1 (HH) pO2, Galo 30.0 - 50.0 mm Hg 26.0 (L) 40.2 92.2 (H) pO2, Galo, Temp Adj 30.0 - 50.0 mmHg 26.0 (L) 40.2 92.2 (H) Bicarbonate, Venous 24.0 - 30.0 mmol/L 40.5 (H) 38.2 (H) 39.8 (H) Positive Base Excess, Galo 0.0 - 2.0 mmol/L 11.7 (H) 10.8 (H) 10.4 (H) O2 Saturation Venous 60.0 - 85.0 % 43.3 (L) 74.0 96.2 (H) Pt Temp 37.0 37.0 37.0 37.0 Sample Site Left Brachial Artery O2 Device/Flow/% Cannula BIPAP BIPAP Text for Respiratory Called to PROVIDER on 02/10/2025 at 16:28 Called to PROVIDER on 02/10/2025 at 21:02 Called to PROVIDER on 02/10/2025 at 23:07 Called to RN on 02/11/2025 at 05:22 (HH): Data is critically high (L): Data is abnormally low (H): Data is abnormally high Radiology/Imaging: XR CHEST (2 VW) Final Result No acute cardiopulmonary disease. Stable subsegmental atelectasis on the right. CT CHEST PULMONARY EMBOLISM W CONTRAST Final Result 1. No evidence of pulmonary embolism or acute pulmonary abnormality. 2. Age-indeterminate T6 compression deformity, but likely chronic. 3. Gallbladder stones versus sludge. 4. Lobular liver contour, raising suspicion for cirrhosis or chronic liver disease. XR CHEST PORTABLE Final Result No acute cardiopulmonary process. ASSESSMENT / PLAN: Primary Problem(s): Acute respiratory failure with hypoxia and hypercapnia (HCC) Differential diagnoses: Pneumonia, viral illness, COPD exacerbation, CHF Condition is an acute or chronic illness or injury that poses threat to life or bodily function Condition is stable Treatment plan: Appreciate pulmonology Discussed with Dr. Perkins/Dr Russell/Dr Cheek Recommendations: BiPAP, intubation, palliative care. Trilogy at home-Discussed with DR Russell. Settings: Cancel-Mas Pressure Support-14 cwp, Min PS 8 cwp, Max EPAP 8 cwp, Mi EPAP 4 cwp, TV 400-500 ml, RR 10 with 1L of Oxygen 02/17/2025-Will reach out to Pulm--ABGs worsening despite changes RT has made Changed to BiPAP 09/20 with a backup rate 12. May go up to an IPAP of 14. Clock if this does not work then only other option is tracheostomy, ventilator for palliative care Now qualifies for 2L of oxygen. I did call and spoke with his Barrel Loader, Dr Church at [place] and discussed his case on 02/17/2025. Likely related to MD due to no infectious process 02/24/2025-SS continues to work with Ins. Resubmitted for appeals and awaiting. 02/25/2025-SS has talked with Ins and work place working with them for approval 02/27/2025-SS continue to work with Insurances. Will involve Ethics and Risk today for assistance. Filled out new paperwork for BiPAP and submitted today Current settings 02/06 with 28% / 2 L 02/28/2025-Continue to await Insurances. Administration here and Ethics continuing to assist with SS. Respiratory viral panel-negative Monitor labs and replace electrolytes Nocturnal Pulse oximetry completed Imaging: no further imaging studies ordered today Medications: Continue nebs Completed Zpak Continue Zyrtec Medication Monitoring / High Risk Medications: none Chronic diastolic CHF Condition is a chronic stable condition Treatment plan: Monitor labs and replace electrolytes I&O, daily weights Imaging: no further imaging studies ordered today Last echo from 12/16/2024 showed an EF of 55 to 60%, mildly increased wall thickness, grade 1 diastolic dysfunction with normal LAP, moderate to severe aortic stenosis Medications: Continue Entresto Continue Toprol-XL Increase oral Lasix Nutrition status: Well developed, well nourished with no malnutrition I/O Daily Weight Nutritional Supplements as tolerated Fish Culturist consult initiated MALNUTRITION ASSESSMENT AND PLAN The following was documented by the Dietitian: Malnutrition Assessment Context of Malnutrition: Acute Illness (02/11/25823) Acute Illness - Energy Intake : No decrease in energy intake (02/11/25823) Acute Illness - Weight Loss : No weight loss (02/11/25823) Acute Illness - Body Fat Loss: No body fat loss (02/11/25823) Acute Illness - Muscle Mass Loss: No muscle mass loss (02/11/25823) Acute Illness - Fluid Accumulation : Moderate to Severe (02/11/25823) Acute Illness - Fluid Accumulation Location: Extremities (02/11/25823) Acute Illness - Hatchery Laborer Strength: Not Performed (02/11/25823) Acute Illness - Malnutrition Score: 7 (02/11/25823) Malnutrition Status: No malnutrition (02/11/25823) I agree with the dietitian's malnutrition assessment. Medical Nutrition Therapy: continue current nutrition therapy Hospital Prophylaxis: DVT: Lovenox Stress Ulcer: PPI Disposition: Shared decision making: All test results, treatment options and disposition options were discussed with the patient today Social determinants of health that may impact management: none Code status: Full Code Disposition: Discharge plan is home vs LTAC Unavoidable Day MIPS Advanced Care Planning documentation: [x] I have confirmed that the patient's Advance Care Plan is present, Code Status is documented, or surrogate decision maker is listed in the patient's medical record [If yes , STOP HERE] [] The patient's Advance Care Plan is NOT present because: [] I confirmed today that the patient does not wish or was not able to name a surrogate decision maker or provide and advance care plan. [] Hospice care is currently being provided or has been provided within the calendar year. [] I did NOT confirm today the presence of an Advance Care Plan or surrogate decision maker documented within the patient's medical record. [DOES NOT SATISFY MIPS PERFORMANCE] LORENA Brown CNP , LORENA-MAIL INSERTER-C 02/28/2025 9:16 AM FACE TO FACE: Patient qualified for home O2. Discussed with patient the medical necessity of home O2. Patient voiced understanding and agreement. LORENA Brown CNP, LORENA, MAIL INSERTER-C 02/28/2025, 9:16 AM This patient has Chronic Respiratory Failure secondary to Muscular Dystrophy, requiring noninvasive ventilation therapy in the home to maintain or optimize an acceptable PCO2 level. If the PCO2 level is not managed, this could cause harm or even . This could also reduce respiratory readmissions. BiPAP has proven to be ineffective in maintaining the patients PCO2 levels, now requiring noninvasive therapy. Cosigned by Arleth Milligan MD at 02/28/2025 2:22 PM EDT Associated attestation - Arleth Milligan MD - 02/28/2025 2:22 PM EDT Arleth Milligan M.D. Internal Medicine PA/MAIL INSERTER Attestation Note Patient: Evgeny Delgado Date of Admission: 02/10/2025 4:04 PM Date of Evaluation: 02/28/2025 I personally evaluated and examined the patient [id number] in conjunction with the PA/MAIL INSERTER and agree with the management and dispostition of the patient. Please see the PA/MAIL INSERTER's note for full details. My jeffries findings are: SUBJECTIVE: Evgeny Delgado is a 70 y.o. male who was seen today along with Jillian Plascencia CNP for follow up of Acute respiratory failure with hypoxia and hypercapnia (HCC). He is feeling better today. He denies and cough or SOB. He has been ambulating well. He denies fever or chills and has been afebrile. We discussed the need for home non invasive ventilation due to his high CO2 levels and the fact that going home without a non-invasive ventilator would likely result in his return to ER for respiratory failure / confusion due to hypercapnia. Pt is aware. OBJECTIVE: Vitals: Temp: 97.9 F (36.6 C) BP: 109/63 Respirations: 16 Pulse: 70 SpO2: 97 % on 1 Lpm nasal cannula Weight Wt Readings from Last 3 Encounters: 02/28/25 94.1 kg (207 lb 8 oz) 12/16/24 90.3 kg (199 lb) 09/17/24 90.3 kg (199 lb) Body mass index is 30.63 kg/m . 24HR INTAKE/OUTPUT: Intake/Output Summary (Last 24 hours) at 02/28/2025 1422 Last data filed at 02/28/2025 0930 Gross per 24 hour Intake 540 ml Output 2100 ml Net -1560 ml Exam: GEN: Awake, alert and oriented x 3. EYES: EOMI, pupils equal NECK: Supple. No lymphadenopathy. No carotid bruit CVS: regular rate and rhythm, 2/6 systolic murmur PULM: CTA, no wheezes, rales or rhonchi, no acute respiratory distress ABD: Bowels sounds normal. Abdomen is soft. No distention. no tenderness to palpation. EXT: no edema bilaterally . No calf tenderness. NEURO: Moves all extremities. Motor and sensory are grossly intact SKIN: No rashes. No skin lesions. DATA: Latest Reference Range & Units 02/15/25 06:32 02/16/25 06:15 02/17/25 15:08 02/18/25 05:45 pH, Arterial 7.35 - 7.45 7.290 (L) 7.304 (L) 7.548 (H) 7.348 (L) pH, Art, Temp Adj 7.350 - 7.450 7.290 (LL) 7.304 (L) 7.548 (HH) 7.348 (L) pCO2, Art, Temp Adj 35.0 - 45.0 85.6 (HH) 81.3 (HH) 32.1 (L) 72.7 (HH) pCO2, Arterial 35 - 45 mmHg 85.6 (HH) 81.3 (HH) 32.1 (L) 72.7 (HH) pO2, Art, Temp Adj 80.0 - 100.0 mmHg 66.0 (L) 64.9 (L) 86.4 93.7 pO2, Arterial 80.0 - 100.0 mmHg 66.0 (L) 64.9 (L) 86.4 93.7 HCO3, Arterial 22 - 26 mmol/L 40.2 (H) 39.5 (H) 27.3 (H) 39.1 (H) Positive Base Excess, Art 0.0 - 2.0 mmol/L 10.1 (H) 9.4 (H) 5.4 (H) 10.1 (H) O2 Sat, Arterial 95 - 98 % 91.2 (L) 89.6 (L) 97.6 96.5 Microbiology / Cultures: Results No results found for the last 336 hours. Imaging Data: CT CHEST PULMONARY EMBOLISM W CONTRAST Result Date: 02/10/2025 EXAMINATION: CTA OF THE CHEST 02/10/2025 5:37 pm TECHNIQUE: CTA of the chest was performed after the administration of intravenous contrast. Multiplanar reformatted images are provided for review. MIP images are provided for review. Automated exposure control, iterative reconstruction, and/or weight based adjustment of the mA/kV was utilized to reduce the radiation dose to as low as reasonably achievable. COMPARISON: None. HISTORY: ORDERING SYSTEM PROVIDED HISTORY: dyspnea, PE TECHNOLOGIST PROVIDED HISTORY: dyspnea, PE Decision Support Exception - unselect if not a suspected or confirmed emergency medical condition->Emergency Medical Condition (MA) FINDINGS: Pulmonary Arteries: Pulmonary arteries are adequately opacified for evaluation. No evidence of intraluminal filling defect to suggest pulmonary embolism. Main pulmonary artery is normal in caliber. Mediastinum: The heart size within normal limits. Coronary arterial calcifications. The thoracic aorta is normal caliber with mild atherosclerosis. The esophagus is unremarkable. No pathologically enlarged adenopathy. Lungs/pleura: Elevation of the right hemidiaphragm. Mild right basilar atelectasis versus scarring. No other focal consolidation, pleural effusion or pneumothorax. The central airways are patent. Upper Abdomen: High-density material within the gallbladder. Lobular liver contour. Small hiatal hernia. Soft Tissues/Bones: Age-indeterminate T6 compression deformity but likely chronic. No other acute bone or soft tissue abnormality. 1. No evidence of pulmonary embolism or acute pulmonary abnormality. 2. Age-indeterminate T6 compression deformity, but likely chronic. 3. Gallbladder stones versus sludge. 4. Lobular liver contour, raising suspicion for cirrhosis or chronic liver disease. XR CHEST PORTABLE Result Date: 02/10/2025 EXAMINATION: ONE XRAY VIEW OF THE CHEST 02/10/2025 4:29 pm COMPARISON: None. HISTORY: ORDERING SYSTEM PROVIDED HISTORY: dyspnea TECHNOLOGIST PROVIDED HISTORY: dyspnea FINDINGS: Lines and tubes: None The lungs are clear. Heart size is normal. No acute cardiopulmonary process. ASSESSMENT: Principal Problem: Acute respiratory failure with hypoxia and hypercapnia (HCC) Active Problems: Nonrheumatic aortic valve stenosis Muscular dystrophies (HCC) Type 2 diabetes mellitus, without long-term current use of insulin (HCC) Chronic diastolic heart failure (HCC) Resolved Problems: * No resolved hospital problems. * PLAN: I agree with the assessment, plan and medical decision making documentation as outlined by APC: Treatment plan: Pulm consult appreciated Recommends NIV at home due to continued CO2 retention from muscular dystrophy Per SS insurance denied Trilogy NIV however pt is unsafe to be home without this tx due to severe hypercanpia Labs: Trend ABGs Medications: Continue Entresto, Toprol, Lasix Nutrition status: Well developed, well nourished with no malnutrition Fish Culturist consult appreciated Monitor daily weights Monitor daily I/O's Medication monitoring / High risk medications: none Disposition: Discharge plan is pending availability of NIV delivery Per SS not a candidate for LTAC or [facility] SHARED APC VISIT, PHYSICIAN ATTESTATION: [id number] I personally performed a substantive part of the MDM during the patient's visit. I personally evaluated and examined the patient. I personally made or approved the documented management plan and acknowledge its risk of complications. Test interpretation: My independent EKG interpretation: Normal sinus rhythm with first degree AV block and RBBB My independent imaging interpretation: CXR shows no acute process Management and/or test interpretation discussed with LEVY Drummond MD, M.D. 02/28/2025 2:22 PM Wing Commander to bedside to complete morning assessment. Upon entry to room, pt alert up to chair, respirations even while on 2L nasal cannula. Vitals obtained and assessment completed, see flow sheet for details. Pt denies needs from securities underwriter at this time. Call light in reach. Care ongoing. RESPIRATORY ASSESSMENT PROTOCOL Patient Name: Evgeny Delgado Room#: 0328/0328-01 : 1955 Admitting diagnosis: Acute on chronic respiratory failure with hypoxia and hypercapnia (HCC) [J96.21, J96.22] Medical History: Past Medical History: Diagnosis Date Aortic stenosis CHF (congestive heart failure) (HCC) Diabetes mellitus (HCC) FSHD (facioscapulohumeral muscular dystrophy) (HCC) HFrEF (heart failure with reduced ejection fraction) (HCC) HLD (hyperlipidemia) HTN (hypertension) Nonischemic cardiomyopathy (HCC) PATIENT ASSESSMENT LABORATORY DATA Hematology: Lab Results Component Value Date/Time WBC 7.0 2025 05:45 AM RBC 4.84 2025 05:45 AM HGB 12.1 2025 05:45 AM HCT 43.5 2025 05:45 AM PLT 154 2025 05:45 AM Chemistry: Lab Results Component Value Date/Time PHART 7.368 02/20/2025 05:32 AM [id number] 64.6 02/20/2025 05:32 AM PO2ART 88.0 02/20/2025 05:32 AM [id number] 96.2 02/20/2025 05:32 AM [id number] 36.3 02/20/2025 05:32 AM PBEA 8.4 02/20/2025 05:32 AM VITALS Pulse: 75 Respirations: 18 BP: 124/72 SpO2: 94 % O2 Device: Nasal cannula Temp: 98.4 F (36.9 C) SKIN COLOR [x] Normal [] Pale [] Dusky [] Cyanotic RESPIRATORY PATTERN [x] Normal [] Dyspnea [] Romel-Byrd [] Kussmaul [] Biots AMBULATORY [x] Yes [] No [] With Assistance Patient Acuity 0 1 2 3 4 Score Level of Consciousness (LOC) [x] Alert & Oriented or Pt normal LOC [] Confused;follows directions [] Confused & uncooper-ative [] Obtunded [] Comatose 0 Respiratory Rate (RR) [x] Reg. rate & pattern. 12 - 20 bpm [] Increased RR. Greater than 20 bpm [] SOB w/ exertion or RR greater than 24 bpm [] Access- ory muscle use at rest. Abn. resp. [] SOB at rest. 0 Bilateral Breath Sounds (BBS) [] Clear [] Diminish-ed bases [x] Diminish-ed t/o, or rales [] Sporadic, scattered wheezes or rhonchi [] Persistentwheezes and, or absent BBS 2 Cough [] Strong, effective, & non-prod. [x] Effective & prod. Less than 25 ml (2 TBSP) over past 24 hrs [] Ineffective & non-prod to less than 25 ML over past 24 hrs [] Ineffective and, or greater than 25 ml sputum prod. past 24 hrs. [] Nonspon- taneous; Requires suctioning 1 Pulmonary History (PULM HX) [] No smoking and no chronic pulmonary history [] Former smoker. Quit over 12 mos. ago [] Current smoker or quit w/ in 12 mos [] Pulm. History and, or 20 pk/yr smoking hx [x] Admitted w/ acute pulm. dx and, or has been admitted w/ pulm. dx 2 or more times over past 12 mos 4 Surgical History this Admit (SURG HX) [x] No surgery [] General surgery [] Lower abdominal [] Thoracic or upper abdominal [] Thoracic w/ pulm. disease 0 Chest X-Ray (CXR)/CT Scan [] Clear or not applicable [] Not available [x] Atelectasis or pleural effusions [] Localized infiltrate or pulm. edema [] Con-solidated Infiltrates, bilateral, or in more than 1 lobe 2 TOTAL ACUITY: 9 CARE PLAN If Acuity Level is 2, 3, or 4 in any of the following: [x] BILATERAL BREATH SOUNDS (BBS) [x] PULMONARY HISTORY (PULM HX) [] Respiratory Rate (RR) Goal: Improve respiratory functions in patients with airway disease and decrease WOB [x] AEROSOL PROTOCOL Total Acuity: 14-28 [] Secondary Assessment in 24 hrs Total Acuity: 9-13 [x] Secondary Assessment in 24 hrs Total Acuity: 4-8 [] Secondary Assessment in 24 hrs Total Acuity: 0-3 [] Secondary Assessment in 48 hrs HHN AEROSOL THERAPY with [physician-ordered bronchodilator(s)] q 4 & Albuterol PRN q2 hrs. Breath-Actuated Neb if BBS Acuity = 4, and pt. can use MP. Notify physician if condition deteriorates. HHN AEROSOL THERAPY with [physician-ordered bronchodilator(s)] QID and Albuterol PRN q4 hrs. Breath-Actuated Neb if BBS Acuity = 4, and pt. can use MP. Notify physician if condition deteriorates. MDI THERAPY with 2 actuations of [physician-ordered bronchodilator(s)] via spacer TID Albuterol and PRN q4 hrs. If unable to utilize MDI: HHN [physician-ordered bronchodilator(s)] TID and Albuterol PRN q4 hrs. Notify physician if condition deteriorates. MDI THERAPY with [physician-ordered bronchodilator(s)] via spacer TID PRN. If unable to utilize MDI: HHN [physician-ordered bronchodilator(s)] TID PRN. Notify physician if condition deteriorates. If Acuity Level is 2, 3, or 4 in any of the following: [] COUGH [] SURGICAL HISTORY (SURG HX) [x] CHEST XRAY (CXR) Goal: Improvement in sputum mobilization in patients with ineffective airway clearance. Reverse atelectasis. [x] Bronchopulmonary Hygiene Protocol Total Acuity: 14-28 [] Secondary Assessment in 24 hrs Total Acuity: 9-13 [x] Secondary Assessment in 24 hrs Total Acuity: 4-8 [] Secondary Assessment in 24 hrs Total Acuity: 0-3 [] Secondary Assessment in 48 hrs METANEB QID with [physician-ordered bronchodilator(s)] if CXR Acuity = 4; otherwise: PD&P, Oscillatory Therapy, or Vest QID & PRN AND PEP QID & PRN NT Sxn PRN for ineffective cough METANEB QID with [physician-ordered bronchodilator(s)] if CXR Acuity = 4; otherwise: PD&P, Oscillatory Therapy or Vest QID & PRN AND PEP QID & PRN NT Sxn PRN for ineffective cough PD&P, Oscillatory Therapy, or Vest TID & PRN AND PEP TID & PRN Instruct patient to self-perform IS q1hr WA If Acuity Level is 2 or above in the following: [] PULMONARY HISTORY (PULM HX) Goal: Assist patient in quitting smoking to slow or stop the progression of lung disease. [] Smoking Cessation Protocol SMOKING CESSATION EDUCATION provided according to policy RT_201: (fabian with an X) ____Yes ____ No ____ NA Smoking Cessation Booklet given: ____Yes ____No ____Patient Refused Occupational Therapy Facility/Department: [facility] Daily Treatment Note NAME: Evgeny Delgado : 1955 Date of Service: 02/27/2025 Discharge Recommendations: Continue to assess pending progress Patient Diagnosis(es): The primary encounter diagnosis was Acute respiratory failure with hypoxia and hypercapnia (HCC). Diagnoses of Muscular dystrophies (HCC), Chronic diastolic heart failure (HCC), and Chronic respiratory failure with hypoxia and hypercapnia (HCC) were also pertinent to this visit. Assessment Activity Tolerance: Patient tolerated treatment well Discharge Recommendations: Continue to assess pending progress Plan Occupational Therapy Plan Times Per Day: Once a day Days Per Week: 7 Days Current Treatment Recommendations: Strengthening;Balance training;Endurance training;Functional mobility training;Patient/Caregiver education & training;Safety education & training;Self-Care / ADL;Equipment evaluation, education, & procurement;ROM Restrictions Standard; fall risk. Subjective Subjective Subjective: Pt sitting up in chair, agreeable to OT - UE therex and ADLs. Pain: Repoprts mild pain in back (2/10). Orientation Overall Orientation Status: Within Normal Limits Pain: denies Cognition Overall Cognitive Status: WNL Objective ADL Toileting: Stand by assistance Functional Mobility: Stand by assistance Functional Mobility Skilled Clinical Factors: SBA with rollator transfer to bathroom. Additional Comments: Pt able to utilize foot rest- elevating and depressing I'ly. OT Exercises Exercise Treatment: Pt seated in recliner completed BUE ther ex to increase strength needed for fxl tasks. Pt completed Red x 20 reps 1# free weight (biceps). Pt also completed B UE arc pass- R / L individually and then bilaterally. Pt completed single-digit manipulation of clothespin on to vertical pole, then removed from horizontal plane. Safety Devices Type of Devices: All fall risk precautions in place;Call light within reach;Left in chair Patient Education Education Given To: Patient Education Provided: Role of Therapy;Plan of Care;Home Exercise Program Education Method: Verbal Education Outcome: Verbalized understanding Goals Short Term Goals Time Frame for Short Term Goals: 21 visits Short Term Goal 1: Patient to be educated on d/c folder, AE/DME and home safety to ensure safe and indep return home. Short Term Goal 2: Patient to safely complete ADL routine c mod I c use of AE/DME as needed to ensure safe and independnet return home. Short Term Goal 3: Patient to engage in 15 minutes of ther ex/ther act c no more than 2 RB to improve strength and activity tolerance for ADL. AM-PAC - ADL Therapy Time Individual Concurrent Group Co-treatment Time In 1411 Time Out 1444 Minutes 33 Jesenia Medina OT Physical Therapy Facility/Department: [facility] Daily Treatment Note NAME: Evgeny Delgado : 1955 Date of Service: 02/27/2025 Discharge Recommendations: Continue to assess pending progress Patient Diagnosis(es): The primary encounter diagnosis was Acute respiratory failure with hypoxia and hypercapnia (HCC). Diagnoses of Muscular dystrophies (HCC), Chronic diastolic heart failure (HCC), and Chronic respiratory failure with hypoxia and hypercapnia (HCC) were also pertinent to this visit. Assessment Assessment: Transfers: Mod I/ IND. Seated exercises B LE x20. STS x6. Gait with WW, Mod I 80ftx1 with no noted LOB and good line management with gait. Activity Tolerance: Patient tolerated treatment well Plan Physical Therapy Plan General Plan: 2 times a day 7 days a week Specific Instructions for Next Treatment: 1x per week on weekends and holidays Current Treatment Recommendations: Strengthening;ROM;Balance training;Functional mobility training;Transfer training;Gait training;Stair training;Home exercise program;Safety education & training;Patient/Caregiver education & training;Equipment evaluation, education, & procurement;Positioning;Therapeuti c activities Restrictions Restrictions/Precautions Restrictions/Precautions: General Precautions, Fall Risk Required Braces or Orthoses?: Yes Required Braces or Orthoses Right Lower Extremity Brace: Ankle Foot Orthotics Left Lower Extremity Brace: Dinorah Foot Orthotics Subjective Subjective Subjective: Pt in chair upon arrival, agreeable to therapy at this time. Pain: denies Objective Bed Mobility Training Bed Mobility Training: No Balance Sitting: Intact Standing: Impaired Standing - Static: Occasional;Fair Standing - Dynamic: Constant support Transfer Training Transfer Training: Yes Overall Level of Assistance: Modified independent;Independent Interventions: Verbal cues Sit to Stand: Modified independent;Independent Stand to Sit: Modified independent;Independent Gait Training Right Side Weight Bearing: As tolerated Left Side Weight Bearing: As tolerated Gait Gait Training: Yes Left Side Weight Bearing: As tolerated Right Side Weight Bearing: As tolerated Overall Level of Assistance: Modified independent Distance (ft): 80 Feet Assistive Device: Walker, rollator Interventions: Verbal cues Speed/Diane: Slow Step Length: Left shortened;Right shortened Swing Pattern: Left asymmetrical;Right asymmetrical Gait Abnormalities: Hip hike;Foot drop PT Exercises Exercise Treatment: Seated exercises B LE x20. STS x6 Safety Devices Type of Devices: All fall risk precautions in place;Call light within reach;Chair alarm in place;Left in chair;Nurse notified Goals Short Term Goals Time Frame for Short Term Goals: 20 visits Short Term Goal 1: Patient will tolerate 20-30' ther-ex in order to increase endurance and ease ADLS Short Term Goal 2: Patient will ascend/descend 4 steps with handrail with supervision assistance in order to safely enter/exit the home Short Term Goal 3: Patient will complete bed mobility and transfers independently in order to return to PLOF Short Term Goal 4: Patient will ambulate 200 feet with rollator with supervision assistance in order to return to PLOF Education Patient Education Education Given To: Patient Education Provided: Role of Therapy;Plan of Care Education Method: Verbal Barriers to Learning: None Education Outcome: Verbalized understanding Therapy Time Individual Concurrent Group Co-treatment Time In 1041 Time Out 1106 Minutes 25 Silvia Stearns PTA Cosigned by Rob Rojas PT at 02/27/2025 12:28 PM EDT Images from the original note were not included. 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 male sitting up in chair on 2L of oxygen. No distress or complaints. No other complaints. Updated that we are in contact with his work place and insurance companies for approval. He does not want an LTAC. ROS: Constitutional: negative for fevers, and negative for chills. Respiratory: negative for shortness of breath, positive for cough, and negative for wheezing Cardiovascular: negative for chest pain, and negative for palpitations Gastrointestinal: negative for abdominal pain, negative for nausea,negative for vomiting, negative for diarrhea, and negative for constipation All other systems were reviewed with the patient and are negative unless otherwise stated in HPI. OBJECTIVE: VITAL SIGNS: Patient Vitals for the past 8 hrs: BP Temp Temp src Pulse Resp SpO2 Weight 02/27/25 0645 100/66 98.4 F (36.9 C) Temporal 68 18 94 % -- 02/27/25 0537 -- -- -- -- -- -- 92.7 kg (204 lb 5.9 oz) 02/27/25 0300 -- -- -- 64 17 94 % -- Temp: 98.4 F (36.9 C) Temp range: Temp Av.7 F (36.5 C) Min: 97 F (36.1 C) Max: 98.4 F (36.9 C) BP: 100/66 BP Range: Systolic (24hrs), Av , Min:90 , Max:111 Diastolic (24hrs), Av, Min:59, Max:67 Pulse: 68 Pulse Range: Pulse Av.4 Min: 64 Max: 73 Respirations: 18 Resp Range: Resp Av.4 Min: 16 Max: 18 SpO2: 94 % on supplemental O2 SpO2 range: SpO2 Av.8 % Min: 90 % Max: 97 % Weight Wt Readings from Last 3 Encounters: 02/27/25 92.7 kg (204 lb 5.9 oz) 12/16/24 90.3 kg (199 lb) 09/17/24 90.3 kg (199 lb) Body mass index is 30.17 kg/m . 24HR INTAKE/OUTPUT: Intake/Output Summary (Last 24 hours) at 02/27/2025 0835 Last data filed at 02/27/2025 0649 Gross per 24 hour Intake 580 ml Output 3425 ml Net -2845 ml Date 02/27/25 0000 - 02/27/25 2359 Shift [id number] [id number] 24 Hour Total INTAKE P.O. 100 100 Shift Total(mL/kg) 100(1.1) 100(1.1) OUTPUT Urine(mL/kg/hr) 800(1.1) 800 Shift Total(mL/kg) 800(8.8) 800(8.8) Weight (kg) 90.9 90.9 90.9 90.9 PHYSICAL EXAM: GEN: Awake and following commands: [] No [x] Yes MENTAL STATUS: alert and oriented x3. DISTRESS: Acute respiratory distress: [x] No [] Yes EYES: EOMI, pupils equal NECK: Supple. No lymphadenopathy. No carotid bruit CVS: regular rate and rhythm, 2/6 systolic murmur PULM: diminished but clear, no acute respiratory distress ABD: Bowels sounds normal. Abdomen is soft. No distention. no tenderness to palpation. EXT: Slight edema bilaterally but right > left . No calf tenderness. NEURO: Moves all extremities. Motor and sensory are grossly intact SKIN: No rashes. No skin lesions. DATA: Complete Blood Count: Latest Reference Range & Units 02/19/25 05:45 WBC 3.5 - 11.3 k/uL 7.0 RBC 4.21 - 5.77 m/uL 4.84 Hemoglobin Quant 13.0 - 17.0 g/dL 12.1 (L) Hematocrit 40.7 - 50.3 % 43.5 MCV 82.6 - 102.9 fL 89.9 MCH 25.2 - 33.5 pg 25.0 (L) MCHC 28.4 - 34.8 g/dL 27.8 (L) MPV 8.1 - 13.5 fL 10.3 RDW 11.8 - 14.4 % 19.0 (H) Platelet Count 138 - 453 k/uL 154 Neutrophils % 36 - 65 % 69 (H) Lymphocyte % 24 - 43 % 19 (L) Monocytes % 3 - 12 % 8 Eosinophils % 1 - 4 % 2 Basophils % 0 - 2 % 1 Neutrophils Absolute 1.50 - 8.10 k/uL 4.83 Lymphocytes Absolute 1.10 - 3.70 k/uL 1.33 Monocytes Absolute 0.10 - 1.20 k/uL 0.56 Eosinophils Absolute 0.00 - 0.44 k/uL 0.14 Basophils Absolute 0.00 - 0.20 k/uL 0.07 Immature Granulocytes % 0 % 1 (H) Morphology Platelet scan shows Normal Platelets POIKILOCYTOSIS PRESENT Immature Granulocytes Absolute 0.00 - 0.30 k/uL 0.07 NRBC Automated 0.0 per 100 WBC 0.0 (L): Data is abnormally low (H): Data is abnormally high Latest Reference Range & Units 02/10/25 16:18 02/11/25 05:08 02/12/25 05:05 02/13/25 06:12 02/14/25 06:35 02/15/25 06:00 02/19/25 05:45 WBC 3.5 - 11.3 k/uL 7.1 6.4 6.4 6.6 5.9 6.0 7.0 RBC 4.21 - 5.77 m/uL 5.94 (H) 5.17 5.15 5.59 5.46 5.07 4.84 Hemoglobin Quant 13.0 - 17.0 g/dL 14.6 12.8 (L) 12.9 (L) 14.0 13.5 12.7 (L) 12.1 (L) Hematocrit 40.7 - 50.3 % 53.0 (H) 45.7 45.9 49.6 48.3 45.6 43.5 MCV 82.6 - 102.9 fL 89.2 88.4 89.1 88.7 88.5 89.9 89.9 MCH 25.2 - 33.5 pg 24.6 (L) 24.8 (L) 25.0 (L) 25.0 (L) 24.7 (L) 25.0 (L) 25.0 (L) MCHC 28.4 - 34.8 g/dL 27.5 (L) 28.0 (L) 28.1 (L) 28.2 (L) 28.0 (L) 27.9 (L) 27.8 (L) MPV 8.1 - 13.5 fL 9.4 10.1 10.6 10.1 10.2 10.7 10.3 RDW 11.8 - 14.4 % 18.2 (H) 17.6 (H) 18.0 (H) 18.1 (H) 18.7 (H) 18.5 (H) 19.0 (H) Platelet Count 138 - 453 k/uL 162 166 161 144 135 (L) 151 154 Neutrophils % 36 - 65 % 73 (H) 66 (H) 63 61 69 (H) 69 (H) 69 (H) Lymphocyte % 24 - 43 % 18 (L) 24 25 28 21 (L) 22 (L) 19 (L) Monocytes % 3 - 12 % 7 8 8 7 7 6 8 Eosinophils % 1 - 4 % 1 1 2 2 2 2 2 Basophils % 0 - 2 % 0 0 1 1 0 0 1 Neutrophils Absolute 1.50 - 8.10 k/uL 5.18 4.23 4.04 4.02 4.07 4.14 4.83 Lymphocytes Absolute 1.10 - 3.70 k/uL 1.28 1.54 1.60 1.85 1.24 1.32 1.33 Monocytes Absolute 0.10 - 1.20 k/uL 0.50 0.51 0.51 0.46 0.41 0.36 0.56 Eosinophils Absolute 0.00 - 0.44 k/uL 0.07 0.06 0.13 0.13 0.12 0.12 0.14 Basophils Absolute 0.00 - 0.20 k/uL 0.00 0.00 0.06 0.07 0.00 0.00 0.07 Immature Granulocytes % 0 % 1 (H) 1 (H) 1 (H) 1 (H) 1 (H) 1 (H) 1 (H) Morphology HYPOCHROMIA PRESENT HYPOCHROMIA PRESENT HYPOCHROMIA PRESENT HYPOCHROMIA PRESENT Normal Normal Platelet scan shows Normal Platelets POIKILOCYTOSIS PRESENT Immature Granulocytes Absolute 0.00 - 0.30 k/uL 0.07 0.06 0.06 0.07 0.06 0.06 0.07 NRBC Automated 0.0 per 100 WBC 0.0 0.0 0.0 0.0 0.0 0.0 0.0 (H): Data is abnormally high (L): Data is abnormally low Latest Reference Range & Units 02/10/25 16:18 02/10/25 18:53 Troponin, High Sensitivity 0 - 22 ng/L 149 (HH) 131 (HH) (HH): Data is critically high Latest Reference Range & Units 02/10/25 16:18 NT Pro-BNP 0 - 125 pg/mL 147 (H) (H): Data is abnormally high Comprehensive Metabolic Profile: Latest Reference Range & Units 02/19/25 05:45 Sodium 136 - 145 mmol/L 141 Potassium 3.7 - 5.3 mmol/L 4.1 Chloride 98 - 107 mmol/L 100 CARBON DIOXIDE 20 - 31 mmol/L 36 (H) BUN,BUNPL 8 - 23 mg/dL 15 Creatinine 0.70 - 1.20 mg/dL 0.5 (L) Bun/Cre 9 - 20 30 (H) Anion Gap 9 - 16 mmol/L 5 (L) Est, Glom Filt Rate >60 mL/min/1.73m2 >90 Glucose 74 - 99 mg/dL 121 (H) Calcium 8.6 - 10.4 mg/dL 8.6 (H): Data is abnormally high (L): Data is abnormally low Latest Reference Range & Units 02/10/25 16:18 02/10/25 18:53 02/11/25 05:08 02/12/25 05:05 02/13/25 06:12 02/14/25 06:35 02/15/25 06:00 05/07/25 05:45 Sodium 136 - 145 mmol/L 140 140 141 139 140 141 141 Potassium 3.7 - 5.3 mmol/L 4.6 3.9 4.2 4.4 4.6 4.0 4.1 Chloride 98 - 107 mmol/L 91 (L) 96 (L) 96 (L) 96 (L) 96 (L) 96 (L) 100 CARBON DIOXIDE 20 - 31 mmol/L 41 (HH) 39 (H) 37 (H) 36 (H) 38 (H) 36 (H) 36 (H) BUN,BUNPL 8 - 23 mg/dL 14 14 15 14 16 16 15 Creatinine 0.70 - 1.20 mg/dL 0.5 (L) 0.4 (L) 0.5 (L) 0.5 (L) 0.5 (L) 0.5 (L) 0.5 (L) Bun/Cre 9 - 20 28 (H) 35 (H) 30 (H) 28 (H) 32 (H) 32 (H) 30 (H) Anion Gap 9 - 16 mmol/L 8 (L) 5 (L) 8 (L) 7 (L) 6 (L) 9 5 (L) Est, Glom Filt Rate >60 mL/min/1.73m2 >90 >90 >90 >90 >90 >90 >90 Glucose 74 - 99 mg/dL 182 (H) 107 (H) 121 (H) 117 (H) 109 (H) 122 (H) 121 (H) Calcium 8.6 - 10.4 mg/dL 9.5 8.7 9.0 9.1 9.0 8.7 8.6 Albumin/Globulin Ratio 1.0 - 2.5 1.8 Total Protein 6.6 - 8.7 g/dL 6.7 Troponin, High Sensitivity 0 - 22 ng/L 149 (HH) 131 (HH) NT Pro-BNP 0 - 125 pg/mL 147 (H) Albumin 3.5 - 5.2 g/dL 4.3 Alkaline Phosphatase 40 - 129 U/L 96 ALT 10 - 50 U/L 21 AST 10 - 50 U/L 24 Total Bilirubin 0.00 - 1.20 mg/dL 0.7 (HH): Data is critically high (L): Data is abnormally low (H): Data is abnormally high ABGs: Latest Reference Range & Units 02/19/25 06:39 02/20/25 05:32 pH, Arterial 7.35 - 7.45 7.318 (L) 7.368 pH, Art, Temp Adj 7.350 - 7.450 7.318 (L) 7.368 pCO2, Art, Temp Adj 35.0 - 45.0 77.6 (HH) 64.6 (HH) pCO2, Arterial 35 - 45 mmHg 77.6 (HH) 64.6 (HH) pO2, Art, Temp Adj 80.0 - 100.0 mmHg 69.9 (L) 88.0 pO2, Arterial 80.0 - 100.0 mmHg 69.9 (L) 88.0 HCO3, Arterial 22 - 26 mmol/L 38.9 (H) 36.3 (H) Positive Base Excess, Art 0.0 - 2.0 mmol/L 9.3 (H) 8.4 (H) O2 Sat, Arterial 95 - 98 % 91.8 (L) 96.2 Pt Temp 37.0 37.0 Sample Site Right Radial Artery Right Radial Artery O2 Device/Flow/% Cannula ROOM AIR Text for Respiratory Called to PROVIDER on 11/22/2024 at 06:42 Called to RN on 02/20/2025 at 05:34 (HH): Data is critically high (L): Data is abnormally low (H): Data is abnormally high (H): Data is abnormally high Latest Reference Range & Units 02/17/25 15:08 02/18/25 05:45 pH, Arterial 7.35 - 7.45 7.548 (H) 7.348 (L) pH, Art, Temp Adj 7.350 - 7.450 7.548 (HH) 7.348 (L) pCO2, Art, Temp Adj 35.0 - 45.0 32.1 (L) 72.7 (HH) pCO2, Arterial 35 - 45 mmHg 32.1 (L) 72.7 (HH) pO2, Art, Temp Adj 80.0 - 100.0 mmHg 86.4 93.7 pO2, Arterial 80.0 - 100.0 mmHg 86.4 93.7 HCO3, Arterial 22 - 26 mmol/L 27.3 (H) 39.1 (H) Positive Base Excess, Art 0.0 - 2.0 mmol/L 5.4 (H) 10.1 (H) O2 Sat, Arterial 95 - 98 % 97.6 96.5 Pt Temp 37.0 37.0 Sample Site Left Radial Artery Right Radial Artery O2 Device/Flow/% BIPAP BIPAP Text for Respiratory Called to RN on 02/18/2025 at 05:49 (HH): Data is critically high (H): Data is abnormally high (L): Data is abnormally low Latest Reference Range & Units 02/15/25 06:32 02/16/25 06:15 pH, Arterial 7.35 - 7.45 7.290 (L) 7.304 (L) pH, Art, Temp Adj 7.350 - 7.450 7.290 (LL) 7.304 (L) pCO2, Art, Temp Adj 35.0 - 45.0 85.6 (HH) 81.3 (HH) pCO2, Arterial 35 - 45 mmHg 85.6 (HH) 81.3 (HH) pO2, Art, Temp Adj 80.0 - 100.0 mmHg 66.0 (L) 64.9 (L) pO2, Arterial 80.0 - 100.0 mmHg 66.0 (L) 64.9 (L) HCO3, Arterial 22 - 26 mmol/L 40.2 (H) 39.5 (H) Positive Base Excess, Art 0.0 - 2.0 mmol/L 10.1 (H) 9.4 (H) O2 Sat, Arterial 95 - 98 % 91.2 (L) 89.6 (L) Pt Temp 37.0 37.0 Sample Site Right Brachial Artery Right Radial Artery O2 Device/Flow/% Cannula Cannula Text for Respiratory Called to RN on 02/15/2025 at 06:35 Called to RN on 02/16/2025 at 06:18 (LL): Data is critically low (HH): Data is critically high (L): Data is abnormally low (H): Data is abnormally high Latest Reference Range & Units 02/13/25 10:10 02/14/25 06:05 pH, Arterial 7.35 - 7.45 7.359 7.339 (L) pH, Art, Temp Adj 7.350 - 7.450 7.359 7.339 (L) pCO2, Art, Temp Adj 35.0 - 45.0 71.6 (HH) 74.2 (HH) pCO2, Arterial 35 - 45 mmHg 71.6 (HH) 74.2 (HH) pO2, Art, Temp Adj 80.0 - 100.0 mmHg 63.4 (L) 129.5 (H) pO2, Arterial 80.0 - 100.0 mmHg 63.4 (L) 129.5 (H) HCO3, Arterial 22 - 26 mmol/L 39.5 (H) 39.0 (H) Positive Base Excess, Art 0.0 - 2.0 mmol/L 10.6 (H) 9.8 (H) O2 Sat, Arterial 95 - 98 % 90.5 (L) 98.3 (H) (HH): Data is critically high (L): Data is abnormally low (H): Data is abnormally high Latest Reference Range & Units 02/11/25 09:04 02/11/25 11:59 02/12/25 07:21 pH, Arterial 7.35 - 7.45 7.343 (L) 7.335 (L) pH, Art, Temp Adj 7.350 - 7.450 7.343 (L) 7.335 (L) pCO2, Art, Temp Adj 35.0 - 45.0 64.9 (HH) 65.4 (HH) pCO2, Arterial 35 - 45 mmHg 64.9 (HH) 65.4 (HH) pO2, Art, Temp Adj 80.0 - 100.0 mmHg 73.1 (L) 80.8 pO2, Arterial 80.0 - 100.0 mmHg 73.1 (L) 80.8 HCO3, Arterial 22 - 26 mmol/L 34.5 (H) 34.1 (H) Positive Base Excess, Art 0.0 - 2.0 mmol/L 6.3 (H) 5.8 (H) O2 Sat, Arterial 95 - 98 % 93.4 (L) 94.9 (L) pH, Galo 7.32 - 7.42 7.321 pH, Galo, Temp Adj 7.320 - 7.420 7.321 pCO2, Galo 39 - 55 mm Hg 82.0 (HH) pO2, Galo 30.0 - 50.0 mm Hg 35.3 pO2, Galo, Temp Adj 30.0 - 50.0 mmHg 35.3 Bicarbonate, Venous 24.0 - 30.0 mmol/L 41.4 (H) Positive Base Excess, Galo 0.0 - 2.0 mmol/L 11.3 (H) O2 Saturation Venous 60.0 - 85.0 % 59.9 (L) Pt Temp 37.0 37.0 37.0 Sample Site Right Radial Artery Right Brachial Artery Set Rate 1 1 O2 Device/Flow/% Cannula Cannula HEATED HIGH FLOW Text for Respiratory Called to RN on 02/11/2025 at 09:07 Called to RN on 02/11/2025 at 12:02 Called to RN on 02/12/2025 at 07:24 (HH): Data is critically high (L): Data is abnormally low (H): Data is abnormally high Latest Reference Range & Units 02/10/25 16:26 02/10/25 21:01 02/10/25 23:05 02/11/25 05:20 pH, Arterial 7.35 - 7.45 7.389 pH, Art, Temp Adj 7.350 - 7.450 7.389 pCO2, Art, Temp Adj 35.0 - 45.0 73.5 (HH) pCO2, Arterial 35 - 45 mmHg 73.5 (HH) pO2, Art, Temp Adj 80.0 - 100.0 mmHg 66.6 (L) pO2, Arterial 80.0 - 100.0 mmHg 66.6 (L) HCO3, Arterial 22 - 26 mmol/L 43.4 (H) Positive Base Excess, Art 0.0 - 2.0 mmol/L 14.4 (H) O2 Sat, Arterial 95 - 98 % 92.2 (L) pH, Galo 7.32 - 7.42 7.368 7.408 7.336 pH, Galo, Temp Adj 7.320 - 7.420 7.368 7.408 7.336 pCO2, Galo 39 - 55 mm Hg 72.0 (HH) 62.0 (HH) 76.1 (HH) pO2, Galo 30.0 - 50.0 mm Hg 26.0 (L) 40.2 92.2 (H) pO2, Galo, Temp Adj 30.0 - 50.0 mmHg 26.0 (L) 40.2 92.2 (H) Bicarbonate, Venous 24.0 - 30.0 mmol/L 40.5 (H) 38.2 (H) 39.8 (H) Positive Base Excess, Galo 0.0 - 2.0 mmol/L 11.7 (H) 10.8 (H) 10.4 (H) O2 Saturation Venous 60.0 - 85.0 % 43.3 (L) 74.0 96.2 (H) Pt Temp 37.0 37.0 37.0 37.0 Sample Site Left Brachial Artery O2 Device/Flow/% Cannula BIPAP BIPAP Text for Respiratory Called to PROVIDER on 02/10/2025 at 16:28 Called to PROVIDER on 02/10/2025 at 21:02 Called to PROVIDER on 02/10/2025 at 23:07 Called to RN on 02/11/2025 at 05:22 (HH): Data is critically high (L): Data is abnormally low (H): Data is abnormally high Radiology/Imaging: XR CHEST (2 VW) Final Result No acute cardiopulmonary disease. Stable subsegmental atelectasis on the right. CT CHEST PULMONARY EMBOLISM W CONTRAST Final Result 1. No evidence of pulmonary embolism or acute pulmonary abnormality. 2. Age-indeterminate T6 compression deformity, but likely chronic. 3. Gallbladder stones versus sludge. 4. Lobular liver contour, raising suspicion for cirrhosis or chronic liver disease. XR CHEST PORTABLE Final Result No acute cardiopulmonary process. ASSESSMENT / PLAN: Primary Problem(s): Acute respiratory failure with hypoxia and hypercapnia (HCC) Differential diagnoses: Pneumonia, viral illness, COPD exacerbation, CHF Condition is an acute or chronic illness or injury that poses threat to life or bodily function Condition is stable Treatment plan: Appreciate pulmonology Discussed with Dr. Perkins/Dr Russell/Dr Cheek Recommendations: BiPAP, intubation, palliative care. Trilogy at home-Discussed with DR Russell. Settings: Cancel-Mas Pressure Support-14 cwp, Min PS 8 cwp, Max EPAP 8 cwp, Mi EPAP 4 cwp, TV 400-500 ml, RR 10 with 1L of Oxygen 02/17/2025-Will reach out to Pulm--ABGs worsening despite changes RT has made Changed to BiPAP 09/20 with a backup rate 12. May go up to an IPAP of 14. Clock if this does not work then only other option is tracheostomy, ventilator for palliative care Now qualifies for 2L of oxygen. I did call and spoke with his Barrel Loader, Dr Church at [place] and discussed his case on 02/17/2025. Likely related to MD due to no infectious process 02/24/2025-SS continues to work with Ins. Resubmitted for appeals and awaiting. 02/25/2025-SS has talked with Ins and work place working with them for approval 02/26/2025-SS continue to work with Insurances. Will involve Ethics and Risk today for assistance. Filled out new paperwork for BiPAP and submitted today Current settings 02/06 with 28% / 2 L Respiratory viral panel-negative Monitor labs and replace electrolytes Nocturnal Pulse oximetry completed Imaging: no further imaging studies ordered today Medications: Continue nebs Completed Zpak Continue Zyrtec Medication Monitoring / High Risk Medications: none Chronic diastolic CHF Condition is a chronic stable condition Treatment plan: Monitor labs and replace electrolytes I&O, daily weights Imaging: no further imaging studies ordered today Last echo from 12/16/2024 showed an EF of 55 to 60%, mildly increased wall thickness, grade 1 diastolic dysfunction with normal LAP, moderate to severe aortic stenosis Medications: Continue Entresto Continue Toprol-XL Continue Lasix Nutrition status: Well developed, well nourished with no malnutrition I/O Daily Weight Nutritional Supplements as tolerated Fish Culturist consult initiated MALNUTRITION ASSESSMENT AND PLAN The following was documented by the Dietitian: Malnutrition Assessment Context of Malnutrition: Acute Illness (02/11/25823) Acute Illness - Energy Intake : No decrease in energy intake (02/11/25823) Acute Illness - Weight Loss : No weight loss (02/11/25823) Acute Illness - Body Fat Loss: No body fat loss (02/11/25823) Acute Illness - Muscle Mass Loss: No muscle mass loss (02/11/25823) Acute Illness - Fluid Accumulation : Moderate to Severe (02/11/25823) Acute Illness - Fluid Accumulation Location: Extremities (02/11/25823) Acute Illness - Hatchery Laborer Strength: Not Performed (02/11/25823) Acute Illness - Malnutrition Score: 7 (02/11/25823) Malnutrition Status: No malnutrition (02/11/25823) I agree with the dietitian's malnutrition assessment. Medical Nutrition Therapy: continue current nutrition therapy Hospital Prophylaxis: DVT: Lovenox Stress Ulcer: PPI Disposition: Shared decision making: All test results, treatment options and disposition options were discussed with the patient today Social determinants of health that may impact management: none Code status: Full Code Disposition: Discharge plan is home vs LTAC Unavoidable Day MIPS Advanced Care Planning documentation: [x] I have confirmed that the patient's Advance Care Plan is present, Code Status is documented, or surrogate decision maker is listed in the patient's medical record [If yes , STOP HERE] [] The patient's Advance Care Plan is NOT present because: [] I confirmed today that the patient does not wish or was not able to name a surrogate decision maker or provide and advance care plan. [] Hospice care is currently being provided or has been provided within the calendar year. [] I did NOT confirm today the presence of an Advance Care Plan or surrogate decision maker documented within the patient's medical record. [DOES NOT SATISFY MIPS PERFORMANCE] LORENA Brown CNP , LORENA-MAIL INSERTER-C 02/27/2025 8:35 AM FACE TO FACE: Patient qualified for home O2. Discussed with patient the medical necessity of home O2. Patient voiced understanding and agreement. LORENA Brown CNP, LORENA, MAIL INSERTER-C 02/27/2025, 8:35 AM This patient has Chronic Respiratory Failure secondary to Muscular Dystrophy, requiring noninvasive ventilation therapy in the home to maintain or optimize an acceptable PCO2 level. If the PCO2 level is not managed, this could cause harm or even . This could also reduce respiratory readmissions. BiPAP has proven to be ineffective in maintaining the patients PCO2 levels, now requiring noninvasive therapy. Cosigned by Arleth Milligan MD at 02/27/2025 4:54 PM EDT Associated attestation - Arleth Milligan MD - 02/27/2025 4:54 PM EDT Arleth Milligan M.D. Internal Medicine PA/MAIL INSERTER Attestation Note Patient: Evgeny Delgado Date of Admission: 02/10/2025 4:04 PM Date of Evaluation: 02/27/2025 I personally evaluated and examined the patient [id number] in conjunction with the PA/MAIL INSERTER and agree with the management and dispostition of the patient. Please see the PA/MAIL INSERTER's note for full details. My jeffries findings are: SUBJECTIVE: Evgeny Delgado is a 70 y.o. male who was seen today along with Jillian Plascencia CNP for follow up of Acute respiratory failure with hypoxia and hypercapnia (HCC). He is feeling better today. He denies and cough or SOB. He has been ambulating well. He denies fever or chills and has been afebrile. We discussed the need for home non invasive ventilation due to his high CO2 levels and the fact that going home without a non-invasive ventilator would likely result in his return to ER for respiratory failure / confusion due to hypercapnia. Pt is aware. OBJECTIVE: Vitals: Temp: 98.4 F (36.9 C) BP: 109/63 Respirations: 18 Pulse: 75 SpO2: 94 % on 1 Lpm nasal cannula Weight Wt Readings from Last 3 Encounters: 02/27/25 92.7 kg (204 lb 5.9 oz) 12/16/24 90.3 kg (199 lb) 09/17/24 90.3 kg (199 lb) Body mass index is 30.17 kg/m . 24HR INTAKE/OUTPUT: Intake/Output Summary (Last 24 hours) at 02/27/2025 1654 Last data filed at 02/27/2025 1322 Gross per 24 hour Intake 340 ml Output 2700 ml Net -2360 ml Exam: GEN: Awake, alert and oriented x 3. EYES: EOMI, pupils equal NECK: Supple. No lymphadenopathy. No carotid bruit CVS: regular rate and rhythm, 2/6 systolic murmur PULM: CTA, no wheezes, rales or rhonchi, no acute respiratory distress ABD: Bowels sounds normal. Abdomen is soft. No distention. no tenderness to palpation. EXT: no edema bilaterally . No calf tenderness. NEURO: Moves all extremities. Motor and sensory are grossly intact SKIN: No rashes. No skin lesions. DATA: Latest Reference Range & Units 02/15/25 06:32 02/16/25 06:15 02/17/25 15:08 02/18/25 05:45 pH, Arterial 7.35 - 7.45 7.290 (L) 7.304 (L) 7.548 (H) 7.348 (L) pH, Art, Temp Adj 7.350 - 7.450 7.290 (LL) 7.304 (L) 7.548 (HH) 7.348 (L) pCO2, Art, Temp Adj 35.0 - 45.0 85.6 (HH) 81.3 (HH) 32.1 (L) 72.7 (HH) pCO2, Arterial 35 - 45 mmHg 85.6 (HH) 81.3 (HH) 32.1 (L) 72.7 (HH) pO2, Art, Temp Adj 80.0 - 100.0 mmHg 66.0 (L) 64.9 (L) 86.4 93.7 pO2, Arterial 80.0 - 100.0 mmHg 66.0 (L) 64.9 (L) 86.4 93.7 HCO3, Arterial 22 - 26 mmol/L 40.2 (H) 39.5 (H) 27.3 (H) 39.1 (H) Positive Base Excess, Art 0.0 - 2.0 mmol/L 10.1 (H) 9.4 (H) 5.4 (H) 10.1 (H) O2 Sat, Arterial 95 - 98 % 91.2 (L) 89.6 (L) 97.6 96.5 Microbiology / Cultures: Results No results found for the last 336 hours. Imaging Data: CT CHEST PULMONARY EMBOLISM W CONTRAST Result Date: 02/10/2025 EXAMINATION: CTA OF THE CHEST 02/10/2025 5:37 pm TECHNIQUE: CTA of the chest was performed after the administration of intravenous contrast. Multiplanar reformatted images are provided for review. MIP images are provided for review. Automated exposure control, iterative reconstruction, and/or weight based adjustment of the mA/kV was utilized to reduce the radiation dose to as low as reasonably achievable. COMPARISON: None. HISTORY: ORDERING SYSTEM PROVIDED HISTORY: dyspnea, PE TECHNOLOGIST PROVIDED HISTORY: dyspnea, PE Decision Support Exception - unselect if not a suspected or confirmed emergency medical condition->Emergency Medical Condition (MA) FINDINGS: Pulmonary Arteries: Pulmonary arteries are adequately opacified for evaluation. No evidence of intraluminal filling defect to suggest pulmonary embolism. Main pulmonary artery is normal in caliber. Mediastinum: The heart size within normal limits. Coronary arterial calcifications. The thoracic aorta is normal caliber with mild atherosclerosis. The esophagus is unremarkable. No pathologically enlarged adenopathy. Lungs/pleura: Elevation of the right hemidiaphragm. Mild right basilar atelectasis versus scarring. No other focal consolidation, pleural effusion or pneumothorax. The central airways are patent. Upper Abdomen: High-density material within the gallbladder. Lobular liver contour. Small hiatal hernia. Soft Tissues/Bones: Age-indeterminate T6 compression deformity but likely chronic. No other acute bone or soft tissue abnormality. 1. No evidence of pulmonary embolism or acute pulmonary abnormality. 2. Age-indeterminate T6 compression deformity, but likely chronic. 3. Gallbladder stones versus sludge. 4. Lobular liver contour, raising suspicion for cirrhosis or chronic liver disease. XR CHEST PORTABLE Result Date: 02/10/2025 EXAMINATION: ONE XRAY VIEW OF THE CHEST 02/10/2025 4:29 pm COMPARISON: None. HISTORY: ORDERING SYSTEM PROVIDED HISTORY: dyspnea TECHNOLOGIST PROVIDED HISTORY: dyspnea FINDINGS: Lines and tubes: None The lungs are clear. Heart size is normal. No acute cardiopulmonary process. ASSESSMENT: Principal Problem: Acute respiratory failure with hypoxia and hypercapnia (HCC) Active Problems: Nonrheumatic aortic valve stenosis Muscular dystrophies (HCC) Type 2 diabetes mellitus, without long-term current use of insulin (HCC) Chronic diastolic heart failure (HCC) Resolved Problems: * No resolved hospital problems. * PLAN: I agree with the assessment, plan and medical decision making documentation as outlined by APC: Treatment plan: Pulm consult appreciated Recommends NIV at home due to continued CO2 retention from muscular dystrophy Per SS insurance denied Trilogy NIV however pt is unsafe to be home without this tx due to severe hypercanpia Labs: Trend ABGs Medications: Continue Entresto, Toprol, Lasix Nutrition status: Well developed, well nourished with no malnutrition Fish Culturist consult appreciated Monitor daily weights Monitor daily I/O's Medication monitoring / High risk medications: none Disposition: Discharge plan is pending availability of NIV delivery Per SS not a candidate for LTAC or [facility] SHARED APC VISIT, PHYSICIAN ATTESTATION: [id number] I personally performed a substantive part of the MDM during the patient's visit. I personally evaluated and examined the patient. I personally made or approved the documented management plan and acknowledge its risk of complications. Test interpretation: My independent EKG interpretation: Normal sinus rhythm with first degree AV block and RBBB My independent imaging interpretation: CXR shows no acute process Management and/or test interpretation discussed with LEVY Drummond MD , Destiny 02/27/2025 4:54 PM Physical Therapy Facility/Department: [facility] Daily Treatment Note NAME: Evgeny Delgado : 1955 Date of Service: 02/27/2025 Discharge Recommendations: Continue to assess pending progress Patient Diagnosis(es): The primary encounter diagnosis was Acute respiratory failure with hypoxia and hypercapnia (HCC). Diagnoses of Muscular dystrophies (HCC), Chronic diastolic heart failure (HCC), and Chronic respiratory failure with hypoxia and hypercapnia (HCC) were also pertinent to this visit. Assessment Assessment: Pt tranfers: modInd. Pt completed reclined B LE exer x20 in all available planes of motion. Therapist assisting pt with donning and doffing shoes and braces on B LEs. Pt ambulating with rollator, gait belt, SUP/modInd with slowed cadance and some lumbar discomfort x150 ft with standing rest break at 75 ft. Plan Physical Therapy Plan General Plan: 2 times a day 7 days a week Specific Instructions for Next Treatment: 1x per week on weekends and holidays Current Treatment Recommendations: Strengthening;ROM;Balance training;Functional mobility training;Transfer training;Gait training;Stair training;Home exercise program;Safety education & training;Patient/Caregiver education & training;Equipment evaluation, education, & procurement;Positioning;Therapeuti c activities Restrictions Restrictions/Precautions Restrictions/Precautions: General Precautions, Fall Risk Required Braces or Orthoses?: Yes Required Braces or Orthoses Right Lower Extremity Brace: Ankle Foot Orthotics Left Lower Extremity Brace: Dinorah Foot Orthotics Subjective Subjective Subjective: Pt in chair upon arrival, agreeable to therapy at this time. Pain: denies Objective Bed Mobility Training Bed Mobility Training: No Balance Sitting: Intact Standing: Impaired Standing - Static: Occasional;Fair Standing - Dynamic: Constant support Transfer Training Transfer Training: Yes Overall Level of Assistance: Modified independent;Independent Interventions: Verbal cues Sit to Stand: Modified independent;Independent Stand to Sit: Modified independent;Independent Gait Training Right Side Weight Bearing: As tolerated Left Side Weight Bearing: As tolerated Gait Gait Training: Yes Left Side Weight Bearing: As tolerated Right Side Weight Bearing: As tolerated Overall Level of Assistance: Supervision;Modified independent Distance (ft): 150 Feet Assistive Device: Walker, rollator;Gait belt (B AFO and shoes donned) Interventions: Verbal cues Speed/Diane: Slow Step Length: Left shortened;Right shortened Swing Pattern: Left asymmetrical;Right asymmetrical Gait Abnormalities: Hip hike;Foot drop PT Exercises Exercise Treatment: Reclined exercises B LE x20. Safety Devices Type of Devices: All fall risk precautions in place;Call light within reach;Chair alarm in place;Gait belt;Left in chair Goals Short Term Goals Time Frame for Short Term Goals: 20 visits Short Term Goal 1: Patient will tolerate 20-30' ther-ex in order to increase endurance and ease ADLS Short Term Goal 2: Patient will ascend/descend 4 steps with handrail with supervision assistance in order to safely enter/exit the home Short Term Goal 3: Patient will complete bed mobility and transfers independently in order to return to PLOF Short Term Goal 4: Patient will ambulate 200 feet with rollator with supervision assistance in order to return to PLOF Education Patient Education Education Given To: Patient Education Provided: Role of Therapy;Plan of Care Education Provided Comments: hand placement for transfers for increasing pt safety. Education Method: Verbal Barriers to Learning: None Education Outcome: Verbalized understanding Therapy Time Individual Concurrent Group Co-treatment Time In 0710 Time Out 0740 Minutes 30 Timed Code Treatment Minutes: 30 Minutes Isabel Guallpa PTA Cosigned by Rob Rojas PT at 02/27/2025 8:54 AM EDT Pt resting in chair, denies needs at this time. Vitals and assessment completed. Call light in reach RESPIRATORY ASSESSMENT PROTOCOL Patient Name: Evgeny Delgado Room#: 0328/0328-01 : 1955 Admitting diagnosis: Acute on chronic respiratory failure with hypoxia and hypercapnia ([facility]) [J96.21, J96.22] Medical History: Past Medical History: Diagnosis Date Aortic stenosis CHF (congestive heart failure) ([facility]) Diabetes mellitus ([facility]) FSHD (facioscapulohumeral muscular dystrophy) ([facility]) HFrEF (heart failure with reduced ejection fraction) ([facility]) HLD (hyperlipidemia) HTN (hypertension) Nonischemic cardiomyopathy ([facility]) PATIENT ASSESSMENT LABORATORY DATA Hematology: Lab Results Component Value Date/Time WBC 7.0 2025 05:45 AM RBC 4.84 2025 05:45 AM HGB 12.1 2025 05:45 AM HCT 43.5 2025 05:45 AM PLT 154 2025 05:45 AM Chemistry: Lab Results Component Value Date/Time PHART 7.368 02/20/2025 05:32 AM [id number] 64.6 02/20/2025 05:32 AM PO2ART 88.0 02/20/2025 05:32 AM [id number] 96.2 02/20/2025 05:32 AM [id number] 36.3 02/20/2025 05:32 AM PBEA 8.4 02/20/2025 05:32 AM VITALS Pulse: 68 Respirations: 18 BP: 105/61 SpO2: 94 % O2 Device: Nasal cannula Temp: 97 F (36.1 C) SKIN COLOR [x] Normal [] Pale [] Dusky [] Cyanotic RESPIRATORY PATTERN [x] Normal [] Dyspnea [] Romel-Byrd [] Kussmaul [] Biots AMBULATORY [x] Yes [] No [] With Assistance Patient Acuity 0 1 2 3 4 Score Level of Consciousness (LOC) [x] Alert & Oriented or Pt normal LOC [] Confused;follows directions [] Confused & uncooper-ative [] Obtunded [] Comatose 0 Respiratory Rate (RR) [x] Reg. rate & pattern. 12 - 20 bpm [] Increased RR. Greater than 20 bpm [] SOB w/ exertion or RR greater than 24 bpm [] Access- ory muscle use at rest. Abn. resp. [] SOB at rest. 0 Bilateral Breath Sounds (BBS) [] Clear [] Diminish-ed bases [x] Diminish-ed t/o, or rales [] Sporadic, scattered wheezes or rhonchi [] Persistentwheezes and, or absent BBS 2 Cough [] Strong, effective, & non-prod. [x] Effective & prod. Less than 25 ml (2 TBSP) over past 24 hrs [] Ineffective & non-prod to less than 25 ML over past 24 hrs [] Ineffective and, or greater than 25 ml sputum prod. past 24 hrs. [] Nonspon- taneous; Requires suctioning 1 Pulmonary History (PULM HX) [] No smoking and no chronic pulmonary history [] Former smoker. Quit over 12 mos. ago [] Current smoker or quit w/ in 12 mos [] Pulm. History and, or 20 pk/yr smoking hx [x] Admitted w/ acute pulm. dx and, or has been admitted w/ pulm. dx 2 or more times over past 12 mos 4 Surgical History this Admit (SURG HX) [x] No surgery [] General surgery [] Lower abdominal [] Thoracic or upper abdominal [] Thoracic w/ pulm. disease 0 Chest X-Ray (CXR)/CT Scan [] Clear or not applicable [] Not available [x] Atelectasis or pleural effusions [] Localized infiltrate or pulm. edema [] Con-solidated Infiltrates, bilateral, or in more than 1 lobe 2 TOTAL ACUITY: 9 CARE PLAN If Acuity Level is 2, 3, or 4 in any of the following: [x] BILATERAL BREATH SOUNDS (BBS) [x] PULMONARY HISTORY (PULM HX) [] Respiratory Rate (RR) Goal: Improve respiratory functions in patients with airway disease and decrease WOB [x] AEROSOL PROTOCOL Total Acuity: 14-28 [] Secondary Assessment in 24 hrs Total Acuity: 9-13 [x] Secondary Assessment in 24 hrs Total Acuity: 4-8 [] Secondary Assessment in 24 hrs Total Acuity: 0-3 [] Secondary Assessment in 48 hrs HHN AEROSOL THERAPY with [physician-ordered bronchodilator(s)] q 4 & Albuterol PRN q2 hrs. Breath-Actuated Neb if BBS Acuity = 4, and pt. can use MP. Notify physician if condition deteriorates. HHN AEROSOL THERAPY with [physician-ordered bronchodilator(s)] QID and Albuterol PRN q4 hrs. Breath-Actuated Neb if BBS Acuity = 4, and pt. can use MP. Notify physician if condition deteriorates. MDI THERAPY with 2 actuations of [physician-ordered bronchodilator(s)] via spacer TID Albuterol and PRN q4 hrs. If unable to utilize MDI: HHN [physician-ordered bronchodilator(s)] TID and Albuterol PRN q4 hrs. Notify physician if condition deteriorates. MDI THERAPY with [physician-ordered bronchodilator(s)] via spacer TID PRN. If unable to utilize MDI: HHN [physician-ordered bronchodilator(s)] TID PRN. Notify physician if condition deteriorates. If Acuity Level is 2, 3, or 4 in any of the following: [] COUGH [] SURGICAL HISTORY (SURG HX) [x] CHEST XRAY (CXR) Goal: Improvement in sputum mobilization in patients with ineffective airway clearance. Reverse atelectasis. [x] Bronchopulmonary Hygiene Protocol Total Acuity: 14-28 [] Secondary Assessment in 24 hrs Total Acuity: 9-13 [x] Secondary Assessment in 24 hrs Total Acuity: 4-8 [] Secondary Assessment in 24 hrs Total Acuity: 0-3 [] Secondary Assessment in 48 hrs METANEB QID with [physician-ordered bronchodilator(s)] if CXR Acuity = 4; otherwise: PD&P, Oscillatory Therapy, or Vest QID & PRN AND PEP QID & PRN NT Sxn PRN for ineffective cough METANEB QID with [physician-ordered bronchodilator(s)] if CXR Acuity = 4; otherwise: PD&P, Oscillatory Therapy or Vest QID & PRN AND PEP QID & PRN NT Sxn PRN for ineffective cough PD&P, Oscillatory Therapy, or Vest TID & PRN AND PEP TID & PRN Instruct patient to self-perform IS q1hr WA If Acuity Level is 2 or above in the following: [] PULMONARY HISTORY (PULM HX) Goal: Assist patient in quitting smoking to slow or stop the progression of lung disease. [] Smoking Cessation Protocol SMOKING CESSATION EDUCATION provided according to policy [id number]: (fabian with an X) ____Yes ____ No ____ NA Smoking Cessation Booklet given: ____Yes ____No ____Patient Refused Physical Therapy Facility/Department: [facility] Daily Treatment Note NAME: Evgeny Delgado : 1955 Date of Service: 02/26/2025 Discharge Recommendations: Continue to assess pending progress Patient Diagnosis(es): The primary encounter diagnosis was Acute respiratory failure with hypoxia and hypercapnia (HCC). Diagnoses of Muscular dystrophies (HCC), Chronic diastolic heart failure (HCC), and Chronic respiratory failure with hypoxia and hypercapnia (HCC) were also pertinent to this visit. Assessment Assessment: Recined and seated exercises B LE x20. Transfers:Mod I/IND. Gait with 4WW 15ftx1 with no noted LOB, steady diane and noted good safety wareness with O2 tubing. Pt. required RB d/t fatigue Activity Tolerance: Patient tolerated treatment well Plan Physical Therapy Plan General Plan: 2 times a day 7 days a week Specific Instructions for Next Treatment: 1x per week on weekends and holidays Current Treatment Recommendations: Strengthening;ROM;Balance training;Functional mobility training;Transfer training;Gait training;Stair training;Home exercise program;Safety education & training;Patient/Caregiver education & training;Equipment evaluation, education, & procurement;Positioning;Therapeuti c activities Restrictions Restrictions/Precautions Restrictions/Precautions: General Precautions, Fall Risk Required Braces or Orthoses?: Yes Required Braces or Orthoses Right Lower Extremity Brace: Ankle Foot Orthotics Left Lower Extremity Brace: Dinorah Foot Orthotics Subjective Subjective Subjective: Pt in chair upon arrival, agreeable to therapy at this time Pain: denies Objective Bed Mobility Training Bed Mobility Training: No Transfer Training Transfer Training: Yes Overall Level of Assistance: Modified independent;Independent Interventions: Verbal cues Sit to Stand: Modified independent;Independent Stand to Sit: Modified independent;Independent Gait Gait Training: Yes Overall Level of Assistance: Supervision;Modified independent Distance (ft): 15 Feet Assistive Device: Walker, rollator Interventions: Verbal cues Speed/Diane: Slow Step Length: Left shortened;Right shortened Swing Pattern: Left asymmetrical;Right asymmetrical Gait Abnormalities: Hip hike;Foot drop PT Exercises Exercise Treatment: Reclined and seated exercises B LE x20. Other Specialty Interventions Other Treatments/Modalities: standing urinal use Safety Devices Type of Devices: All fall risk precautions in place;Call light within reach;Nurse notified Goals Short Term Goals Time Frame for Short Term Goals: 20 visits Short Term Goal 1: Patient will tolerate 20-30' ther-ex in order to increase endurance and ease ADLS Short Term Goal 2: Patient will ascend/descend 4 steps with handrail with supervision assistance in order to safely enter/exit the home Short Term Goal 3: Patient will complete bed mobility and transfers independently in order to return to PLOF Short Term Goal 4: Patient will ambulate 200 feet with rollator with supervision assistance in order to return to PLOF Education Patient Education Education Given To: Patient Education Provided: Role of Therapy;Plan of Care Education Method: Verbal Barriers to Learning: None Education Outcome: Verbalized understanding Therapy Time Individual Concurrent Group Co-treatment Time In 1315 Time Out 1339 Minutes 24 Silvia Stearns PTA Cosigned by Lee Andrews PT at 02/26/2025 4:07 PM EDT Physical Therapy Facility/Department: [facility] Daily Treatment Note NAME: Evgeny Delgado : 1955 Date of Service: 02/26/2025 Discharge Recommendations: Continue to assess pending progress Patient Diagnosis(es): The primary encounter diagnosis was Acute respiratory failure with hypoxia and hypercapnia (HCC). Diagnoses of Muscular dystrophies (HCC), Chronic diastolic heart failure (HCC), and Chronic respiratory failure with hypoxia and hypercapnia (HCC) were also pertinent to this visit. Assessment Assessment: Recined and seated exercises B LE x20. STS x5. Transfers:Mod I/IND. Gait with 4WW 80ftx1,15ftx1 with no noted LOB, steady diane and noted good safety wareness with O2 tubing. Pt. required RB d/t fatigue Activity Tolerance: Patient tolerated treatment well Plan Physical Therapy Plan General Plan: 2 times a day 7 days a week Specific Instructions for Next Treatment: 1x per week on weekends and holidays Current Treatment Recommendations: Strengthening;ROM;Balance training;Functional mobility training;Transfer training;Gait training;Stair training;Home exercise program;Safety education & training;Patient/Caregiver education & training;Equipment evaluation, education, & procurement;Positioning;Therapeuti c activities Restrictions Restrictions/Precautions Restrictions/Precautions: General Precautions, Fall Risk Required Braces or Orthoses?: Yes Required Braces or Orthoses Right Lower Extremity Brace: Ankle Foot Orthotics Left Lower Extremity Brace: Dinorah Foot Orthotics Subjective Subjective Subjective: Pt in chair upon arrival, agreeable to therapy at this time Pain: denies Objective Bed Mobility Training Bed Mobility Training: No Transfer Training Transfer Training: Yes Overall Level of Assistance: Modified independent;Independent Interventions: Verbal cues Sit to Stand: Modified independent;Independent Stand to Sit: Modified independent;Independent Gait Gait Training: Yes Overall Level of Assistance: Supervision;Modified independent Distance (ft): 95 Feet Assistive Device: Walker, rollator Interventions: Verbal cues Speed/Diane: Slow Step Length: Left shortened;Right shortened Swing Pattern: Left asymmetrical;Right asymmetrical Gait Abnormalities: Hip hike;Foot drop PT Exercises Exercise Treatment: Reclined and seated exercises B LE x20. STS x5 Other Specialty Interventions Other Treatments/Modalities: standing urinal use Safety Devices Type of Devices: All fall risk precautions in place;Call light within reach;Nurse notified Goals Short Term Goals Time Frame for Short Term Goals: 20 visits Short Term Goal 1: Patient will tolerate 20-30' ther-ex in order to increase endurance and ease ADLS Short Term Goal 2: Patient will ascend/descend 4 steps with handrail with supervision assistance in order to safely enter/exit the home Short Term Goal 3: Patient will complete bed mobility and transfers independently in order to return to PLOF Short Term Goal 4: Patient will ambulate 200 feet with rollator with supervision assistance in order to return to PLOF Education Patient Education Education Given To: Patient Education Provided: Role of Therapy;Plan of Care Education Method: Verbal Barriers to Learning: None Education Outcome: Verbalized understanding Therapy Time Individual Concurrent Group Co-treatment Time In 0947 Time Out 1028 Minutes 41 Silvia Stearns PTA Cosigned by Lee Andrews PT at 02/26/2025 12:54 PM EDT Images from the original note were not included. IT NETWORK ADMINISTRATOR - Progress Note Patient - Evgeny Delgado Date of Admission - 02/10/2025 4:04 PM Date of Evaluation - 02/26/2025 Hospital Day - 16 SUBJECTIVE: The Evgeny Delgado is a 70 y.o. male sitting up in chair on 2L of oxygen. No distress or complaints. No other complaints. Updated that we are in contact with his work place and insurance companies for approval. He does not want an LTAC. ROS: Constitutional: negative for fevers, and negative for chills. Respiratory: negative for shortness of breath, positive for cough, and negative for wheezing Cardiovascular: negative for chest pain, and negative for palpitations Gastrointestinal: negative for abdominal pain, negative for nausea,negative for vomiting, negative for diarrhea, and negative for constipation All other systems were reviewed with the patient and are negative unless otherwise stated in HPI. OBJECTIVE: VITAL SIGNS: Patient Vitals for the past 8 hrs: BP Temp Temp src Pulse Resp SpO2 Weight 02/26/25 0700 97/63 (!) 96.6 F (35.9 C) Temporal 70 18 93 % -- 02/26/25 0522 -- -- -- -- -- 94 % -- 02/26/25 0453 -- -- -- -- -- -- 94 kg (207 lb 4.8 oz) 02/26/25 0259 -- -- -- 65 16 95 % -- Temp: (!) 96.6 F (35.9 C) Temp range: Temp Av.2 F (36.2 C) Min: 96.6 F (35.9 C) Max: 97.7 F (36.5 C) BP: 97/63 BP Range: Systolic (24hrs), Av , Min:93 , Max:106 Diastolic (24hrs), Av, Min:63, Max:66 Pulse: 70 Pulse Range: Pulse Av.8 Min: 65 Max: 74 Respirations: 18 Resp Range: Resp Av.3 Min: 16 Max: 18 SpO2: 93 % on supplemental O2 SpO2 range: SpO2 Av.1 % Min: 93 % Max: 97 % Weight Wt Readings from Last 3 Encounters: 02/26/25 94 kg (207 lb 4.8 oz) 12/16/24 90.3 kg (199 lb) 09/17/24 90.3 kg (199 lb) Body mass index is 30.6 kg/m . 24HR INTAKE/OUTPUT: Intake/Output Summary (Last 24 hours) at 02/26/2025916 Last data filed at 02/26/2025 0912 Gross per 24 hour Intake 240 ml Output 2950 ml Net -2710 ml Date 02/26/25 0000 - 02/26/25 2359 Shift [id number] 24 Hour Total INTAKE P.O. 240 240 Shift Total(mL/kg) 240(2.6) 240(2.6) OUTPUT Urine(mL/kg/hr) 600(0.8) 600 Shift Total(mL/kg) 600(6.6) 600(6.6) Weight (kg) 90.9 90.9 90.9 90.9 PHYSICAL EXAM: GEN: Awake and following commands: [] No [x] Yes MENTAL STATUS: alert and oriented x3. DISTRESS: Acute respiratory distress: [x] No [] Yes EYES: EOMI, pupils equal NECK: Supple. No lymphadenopathy. No carotid bruit CVS: regular rate and rhythm, 2/6 systolic murmur PULM: diminished but clear, no acute respiratory distress ABD: Bowels sounds normal. Abdomen is soft. No distention. no tenderness to palpation. EXT: Slight edema bilaterally but right > left . No calf tenderness. NEURO: Moves all extremities. Motor and sensory are grossly intact SKIN: No rashes. No skin lesions. DATA: Complete Blood Count: Latest Reference Range & Units 02/19/25 05:45 WBC 3.5 - 11.3 k/uL 7.0 RBC 4.21 - 5.77 m/uL 4.84 Hemoglobin Quant 13.0 - 17.0 g/dL 12.1 (L) Hematocrit 40.7 - 50.3 % 43.5 MCV 82.6 - 102.9 fL 89.9 MCH 25.2 - 33.5 pg 25.0 (L) MCHC 28.4 - 34.8 g/dL 27.8 (L) MPV 8.1 - 13.5 fL 10.3 RDW 11.8 - 14.4 % 19.0 (H) Platelet Count 138 - 453 k/uL 154 Neutrophils % 36 - 65 % 69 (H) Lymphocyte % 24 - 43 % 19 (L) Monocytes % 3 - 12 % 8 Eosinophils % 1 - 4 % 2 Basophils % 0 - 2 % 1 Neutrophils Absolute 1.50 - 8.10 k/uL 4.83 Lymphocytes Absolute 1.10 - 3.70 k/uL 1.33 Monocytes Absolute 0.10 - 1.20 k/uL 0.56 Eosinophils Absolute 0.00 - 0.44 k/uL 0.14 Basophils Absolute 0.00 - 0.20 k/uL 0.07 Immature Granulocytes % 0 % 1 (H) Morphology Platelet scan shows Normal Platelets POIKILOCYTOSIS PRESENT Immature Granulocytes Absolute 0.00 - 0.30 k/uL 0.07 NRBC Automated 0.0 per 100 WBC 0.0 (L): Data is abnormally low (H): Data is abnormally high Latest Reference Range & Units 02/10/25 16:18 02/11/25 05:08 02/12/25 05:05 02/13/25 06:12 02/14/25 06:35 02/15/25 06:00 02/19/25 05:45 WBC 3.5 - 11.3 k/uL 7.1 6.4 6.4 6.6 5.9 6.0 7.0 RBC 4.21 - 5.77 m/uL 5.94 (H) 5.17 5.15 5.59 5.46 5.07 4.84 Hemoglobin Quant 13.0 - 17.0 g/dL 14.6 12.8 (L) 12.9 (L) 14.0 13.5 12.7 (L) 12.1 (L) Hematocrit 40.7 - 50.3 % 53.0 (H) 45.7 45.9 49.6 48.3 45.6 43.5 MCV 82.6 - 102.9 fL 89.2 88.4 89.1 88.7 88.5 89.9 89.9 MCH 25.2 - 33.5 pg 24.6 (L) 24.8 (L) 25.0 (L) 25.0 (L) 24.7 (L) 25.0 (L) 25.0 (L) MCHC 28.4 - 34.8 g/dL 27.5 (L) 28.0 (L) 28.1 (L) 28.2 (L) 28.0 (L) 27.9 (L) 27.8 (L) MPV 8.1 - 13.5 fL 9.4 10.1 10.6 10.1 10.2 10.7 10.3 RDW 11.8 - 14.4 % 18.2 (H) 17.6 (H) 18.0 (H) 18.1 (H) 18.7 (H) 18.5 (H) 19.0 (H) Platelet Count 138 - 453 k/uL 162 166 161 144 135 (L) 151 154 Neutrophils % 36 - 65 % 73 (H) 66 (H) 63 61 69 (H) 69 (H) 69 (H) Lymphocyte % 24 - 43 % 18 (L) 24 25 28 21 (L) 22 (L) 19 (L) Monocytes % 3 - 12 % 7 8 8 7 7 6 8 Eosinophils % 1 - 4 % 1 1 2 2 2 2 2 Basophils % 0 - 2 % 0 0 1 1 0 0 1 Neutrophils Absolute 1.50 - 8.10 k/uL 5.18 4.23 4.04 4.02 4.07 4.14 4.83 Lymphocytes Absolute 1.10 - 3.70 k/uL 1.28 1.54 1.60 1.85 1.24 1.32 1.33 Monocytes Absolute 0.10 - 1.20 k/uL 0.50 0.51 0.51 0.46 0.41 0.36 0.56 Eosinophils Absolute 0.00 - 0.44 k/uL 0.07 0.06 0.13 0.13 0.12 0.12 0.14 Basophils Absolute 0.00 - 0.20 k/uL 0.00 0.00 0.06 0.07 0.00 0.00 0.07 Immature Granulocytes % 0 % 1 (H) 1 (H) 1 (H) 1 (H) 1 (H) 1 (H) 1 (H) Morphology HYPOCHROMIA PRESENT HYPOCHROMIA PRESENT HYPOCHROMIA PRESENT HYPOCHROMIA PRESENT Normal Normal Platelet scan shows Normal Platelets POIKILOCYTOSIS PRESENT Immature Granulocytes Absolute 0.00 - 0.30 k/uL 0.07 0.06 0.06 0.07 0.06 0.06 0.07 NRBC Automated 0.0 per 100 WBC 0.0 0.0 0.0 0.0 0.0 0.0 0.0 (H): Data is abnormally high (L): Data is abnormally low Latest Reference Range & Units 02/10/25 16:18 02/10/25 18:53 Troponin, High Sensitivity 0 - 22 ng/L 149 (HH) 131 (HH) (HH): Data is critically high Latest Reference Range & Units 02/10/25 16:18 NT Pro-BNP 0 - 125 pg/mL 147 (H) (H): Data is abnormally high Comprehensive Metabolic Profile: Latest Reference Range & Units 02/19/25 05:45 Sodium 136 - 145 mmol/L 141 Potassium 3.7 - 5.3 mmol/L 4.1 Chloride 98 - 107 mmol/L 100 CARBON DIOXIDE 20 - 31 mmol/L 36 (H) BUN,BUNPL 8 - 23 mg/dL 15 Creatinine 0.70 - 1.20 mg/dL 0.5 (L) Bun/Cre 9 - 20 30 (H) Anion Gap 9 - 16 mmol/L 5 (L) Est, Glom Filt Rate >60 mL/min/1.73m2 >90 Glucose 74 - 99 mg/dL 121 (H) Calcium 8.6 - 10.4 mg/dL 8.6 (H): Data is abnormally high (L): Data is abnormally low Latest Reference Range & Units 02/10/25 16:18 02/10/25 18:53 02/11/25 05:08 02/12/25 05:05 02/13/25 06:12 02/14/25 06:35 02/15/25 06:00 02/19/25 05:45 Sodium 136 - 145 mmol/L 140 140 141 139 140 141 141 Potassium 3.7 - 5.3 mmol/L 4.6 3.9 4.2 4.4 4.6 4.0 4.1 Chloride 98 - 107 mmol/L 91 (L) 96 (L) 96 (L) 96 (L) 96 (L) 96 (L) 100 CARBON DIOXIDE 20 - 31 mmol/L 41 (HH) 39 (H) 37 (H) 36 (H) 38 (H) 36 (H) 36 (H) BUN,BUNPL 8 - 23 mg/dL 14 14 15 14 16 16 15 Creatinine 0.70 - 1.20 mg/dL 0.5 (L) 0.4 (L) 0.5 (L) 0.5 (L) 0.5 (L) 0.5 (L) 0.5 (L) Bun/Cre 9 - 20 28 (H) 35 (H) 30 (H) 28 (H) 32 (H) 32 (H) 30 (H) Anion Gap 9 - 16 mmol/L 8 (L) 5 (L) 8 (L) 7 (L) 6 (L) 9 5 (L) Est, Glom Filt Rate >60 mL/min/1.73m2 >90 >90 >90 >90 >90 >90 >90 Glucose 74 - 99 mg/dL 182 (H) 107 (H) 121 (H) 117 (H) 109 (H) 122 (H) 121 (H) Calcium 8.6 - 10.4 mg/dL 9.5 8.7 9.0 9.1 9.0 8.7 8.6 Albumin/Globulin Ratio 1.0 - 2.5 1.8 Total Protein 6.6 - 8.7 g/dL 6.7 Troponin, High Sensitivity 0 - 22 ng/L 149 (HH) 131 (HH) NT Pro-BNP 0 - 125 pg/mL 147 (H) Albumin 3.5 - 5.2 g/dL 4.3 Alkaline Phosphatase 40 - 129 U/L 96 ALT 10 - 50 U/L 21 AST 10 - 50 U/L 24 Total Bilirubin 0.00 - 1.20 mg/dL 0.7 (HH): Data is critically high (L): Data is abnormally low (H): Data is abnormally high ABGs: Latest Reference Range & Units 02/19/25 06:39 02/20/25 05:32 pH, Arterial 7.35 - 7.45 7.318 (L) 7.368 pH, Art, Temp Adj 7.350 - 7.450 7.318 (L) 7.368 pCO2, Art, Temp Adj 35.0 - 45.0 77.6 (HH) 64.6 (HH) pCO2, Arterial 35 - 45 mmHg 77.6 (HH) 64.6 (HH) pO2, Art, Temp Adj 80.0 - 100.0 mmHg 69.9 (L) 88.0 pO2, Arterial 80.0 - 100.0 mmHg 69.9 (L) 88.0 HCO3, Arterial 22 - 26 mmol/L 38.9 (H) 36.3 (H) Positive Base Excess, Art 0.0 - 2.0 mmol/L 9.3 (H) 8.4 (H) O2 Sat, Arterial 95 - 98 % 91.8 (L) 96.2 Pt Temp 37.0 37.0 Sample Site Right Radial Artery Right Radial Artery O2 Device/Flow/% Cannula ROOM AIR Text for Respiratory Called to PROVIDER on 11/22/2024 at 06:42 Called to RN on 02/20/2025 at 05:34 (HH): Data is critically high (L): Data is abnormally low (H): Data is abnormally high (H): Data is abnormally high Latest Reference Range & Units 02/17/25 15:08 02/18/25 05:45 pH, Arterial 7.35 - 7.45 7.548 (H) 7.348 (L) pH, Art, Temp Adj 7.350 - 7.450 7.548 (HH) 7.348 (L) pCO2, Art, Temp Adj 35.0 - 45.0 32.1 (L) 72.7 (HH) pCO2, Arterial 35 - 45 mmHg 32.1 (L) 72.7 (HH) pO2, Art, Temp Adj 80.0 - 100.0 mmHg 86.4 93.7 pO2, Arterial 80.0 - 100.0 mmHg 86.4 93.7 HCO3, Arterial 22 - 26 mmol/L 27.3 (H) 39.1 (H) Positive Base Excess, Art 0.0 - 2.0 mmol/L 5.4 (H) 10.1 (H) O2 Sat, Arterial 95 - 98 % 97.6 96.5 Pt Temp 37.0 37.0 Sample Site Left Radial Artery Right Radial Artery O2 Device/Flow/% BIPAP BIPAP Text for Respiratory Called to RN on 02/18/2025 at 05:49 (HH): Data is critically high (H): Data is abnormally high (L): Data is abnormally low Latest Reference Range & Units 02/15/25 06:32 02/16/25 06:15 pH, Arterial 7.35 - 7.45 7.290 (L) 7.304 (L) pH, Art, Temp Adj 7.350 - 7.450 7.290 (LL) 7.304 (L) pCO2, Art, Temp Adj 35.0 - 45.0 85.6 (HH) 81.3 (HH) pCO2, Arterial 35 - 45 mmHg 85.6 (HH) 81.3 (HH) pO2, Art, Temp Adj 80.0 - 100.0 mmHg 66.0 (L) 64.9 (L) pO2, Arterial 80.0 - 100.0 mmHg 66.0 (L) 64.9 (L) HCO3, Arterial 22 - 26 mmol/L 40.2 (H) 39.5 (H) Positive Base Excess, Art 0.0 - 2.0 mmol/L 10.1 (H) 9.4 (H) O2 Sat, Arterial 95 - 98 % 91.2 (L) 89.6 (L) Pt Temp 37.0 37.0 Sample Site Right Brachial Artery Right Radial Artery O2 Device/Flow/% Cannula Cannula Text for Respiratory Called to RN on 02/15/2025 at 06:35 Called to RN on 02/16/2025 at 06:18 (LL): Data is critically low (HH): Data is critically high (L): Data is abnormally low (H): Data is abnormally high Latest Reference Range & Units 02/13/25 10:10 02/14/25 06:05 pH, Arterial 7.35 - 7.45 7.359 7.339 (L) pH, Art, Temp Adj 7.350 - 7.450 7.359 7.339 (L) pCO2, Art, Temp Adj 35.0 - 45.0 71.6 (HH) 74.2 (HH) pCO2, Arterial 35 - 45 mmHg 71.6 (HH) 74.2 (HH) pO2, Art, Temp Adj 80.0 - 100.0 mmHg 63.4 (L) 129.5 (H) pO2, Arterial 80.0 - 100.0 mmHg 63.4 (L) 129.5 (H) HCO3, Arterial 22 - 26 mmol/L 39.5 (H) 39.0 (H) Positive Base Excess, Art 0.0 - 2.0 mmol/L 10.6 (H) 9.8 (H) O2 Sat, Arterial 95 - 98 % 90.5 (L) 98.3 (H) (HH): Data is critically high (L): Data is abnormally low (H): Data is abnormally high Latest Reference Range & Units 02/11/25 09:04 02/11/25 11:59 02/12/25 07:21 pH, Arterial 7.35 - 7.45 7.343 (L) 7.335 (L) pH, Art, Temp Adj 7.350 - 7.450 7.343 (L) 7.335 (L) pCO2, Art, Temp Adj 35.0 - 45.0 64.9 (HH) 65.4 (HH) pCO2, Arterial 35 - 45 mmHg 64.9 (HH) 65.4 (HH) pO2, Art, Temp Adj 80.0 - 100.0 mmHg 73.1 (L) 80.8 pO2, Arterial 80.0 - 100.0 mmHg 73.1 (L) 80.8 HCO3, Arterial 22 - 26 mmol/L 34.5 (H) 34.1 (H) Positive Base Excess, Art 0.0 - 2.0 mmol/L 6.3 (H) 5.8 (H) O2 Sat, Arterial 95 - 98 % 93.4 (L) 94.9 (L) pH, Galo 7.32 - 7.42 7.321 pH, Galo, Temp Adj 7.320 - 7.420 7.321 pCO2, Galo 39 - 55 mm Hg 82.0 (HH) pO2, Galo 30.0 - 50.0 mm Hg 35.3 pO2, Galo, Temp Adj 30.0 - 50.0 mmHg 35.3 Bicarbonate, Venous 24.0 - 30.0 mmol/L 41.4 (H) Positive Base Excess, Galo 0.0 - 2.0 mmol/L 11.3 (H) O2 Saturation Venous 60.0 - 85.0 % 59.9 (L) Pt Temp 37.0 37.0 37.0 Sample Site Right Radial Artery Right Brachial Artery Set Rate 1 1 O2 Device/Flow/% Cannula Cannula HEATED HIGH FLOW Text for Respiratory Called to RN on 02/11/2025 at 09:07 Called to RN on 02/11/2025 at 12:02 Called to RN on 02/12/2025 at 07:24 (HH): Data is critically high (L): Data is abnormally low (H): Data is abnormally high Latest Reference Range & Units 02/10/25 16:26 02/10/25 21:01 02/10/25 23:05 02/11/25 05:20 pH, Arterial 7.35 - 7.45 7.389 pH, Art, Temp Adj 7.350 - 7.450 7.389 pCO2, Art, Temp Adj 35.0 - 45.0 73.5 (HH) pCO2, Arterial 35 - 45 mmHg 73.5 (HH) pO2, Art, Temp Adj 80.0 - 100.0 mmHg 66.6 (L) pO2, Arterial 80.0 - 100.0 mmHg 66.6 (L) HCO3, Arterial 22 - 26 mmol/L 43.4 (H) Positive Base Excess, Art 0.0 - 2.0 mmol/L 14.4 (H) O2 Sat, Arterial 95 - 98 % 92.2 (L) pH, Galo 7.32 - 7.42 7.368 7.408 7.336 pH, Galo, Temp Adj 7.320 - 7.420 7.368 7.408 7.336 pCO2, Galo 39 - 55 mm Hg 72.0 (HH) 62.0 (HH) 76.1 (HH) pO2, Galo 30.0 - 50.0 mm Hg 26.0 (L) 40.2 92.2 (H) pO2, Galo, Temp Adj 30.0 - 50.0 mmHg 26.0 (L) 40.2 92.2 (H) Bicarbonate, Venous 24.0 - 30.0 mmol/L 40.5 (H) 38.2 (H) 39.8 (H) Positive Base Excess, Galo 0.0 - 2.0 mmol/L 11.7 (H) 10.8 (H) 10.4 (H) O2 Saturation Venous 60.0 - 85.0 % 43.3 (L) 74.0 96.2 (H) Pt Temp 37.0 37.0 37.0 37.0 Sample Site Left Brachial Artery O2 Device/Flow/% Cannula BIPAP BIPAP Text for Respiratory Called to PROVIDER on 02/10/2025 at 16:28 Called to PROVIDER on 02/10/2025 at 21:02 Called to PROVIDER on 02/10/2025 at 23:07 Called to RN on 02/11/2025 at 05:22 (HH): Data is critically high (L): Data is abnormally low (H): Data is abnormally high Radiology/Imaging: XR CHEST (2 VW) Final Result No acute cardiopulmonary disease. Stable subsegmental atelectasis on the right. CT CHEST PULMONARY EMBOLISM W CONTRAST Final Result 1. No evidence of pulmonary embolism or acute pulmonary abnormality. 2. Age-indeterminate T6 compression deformity, but likely chronic. 3. Gallbladder stones versus sludge. 4. Lobular liver contour, raising suspicion for cirrhosis or chronic liver disease. XR CHEST PORTABLE Final Result No acute cardiopulmonary process. ASSESSMENT / PLAN: Primary Problem(s): Acute respiratory failure with hypoxia and hypercapnia (HCC) Differential diagnoses: Pneumonia, viral illness, COPD exacerbation, CHF Condition is an acute or chronic illness or injury that poses threat to life or bodily function Condition is stable Treatment plan: Appreciate pulmonology Discussed with Dr. Perkins/Dr Russell/Dr Cheek Recommendations: BiPAP, intubation, palliative care. Trilogy at home-Discussed with DR Russell. Settings: Cancel-Mas Pressure Support-14 cwp, Min PS 8 cwp, Max EPAP 8 cwp, Mi EPAP 4 cwp, TV 400-500 ml, RR 10 with 1L of Oxygen 02/17/2025-Will reach out to Pulm--ABGs worsening despite changes RT has made Changed to BiPAP 09/20 with a backup rate 12. May go up to an IPAP of 14. Clock if this does not work then only other option is tracheostomy, ventilator for palliative care Now qualifies for 2L of oxygen. I did call and spoke with his Barrel Loader, Dr Church at [place] and discussed his case on 02/17/2025. Likely related to MD due to no infectious process 02/24/2025-SS continues to work with Ins. Resubmitted for appeals and awaiting. 02/25/2025-SS has talked with Ins and work place working with them for approval Respiratory viral panel-negative Monitor labs and replace electrolytes Nocturnal Pulse oximetry completed Imaging: no further imaging studies ordered today Medications: Continue nebs Completed Zpak Continue Zyrtec Medication Monitoring / High Risk Medications: none Chronic diastolic CHF Condition is a chronic stable condition Treatment plan: Monitor labs and replace electrolytes I&O, daily weights Imaging: no further imaging studies ordered today Last echo from 12/16/2024 showed an EF of 55 to 60%, mildly increased wall thickness, grade 1 diastolic dysfunction with normal LAP, moderate to severe aortic stenosis Medications: Continue Entresto Continue Toprol-XL Continue Lasix Nutrition status: Well developed, well nourished with no malnutrition I/O Daily Weight Nutritional Supplements as tolerated Fish Culturist consult initiated MALNUTRITION ASSESSMENT AND PLAN The following was documented by the Dietitian: Malnutrition Assessment Context of Malnutrition: Acute Illness (02/11/25823) Acute Illness - Energy Intake : No decrease in energy intake (02/11/25823) Acute Illness - Weight Loss : No weight loss (02/11/25823) Acute Illness - Body Fat Loss: No body fat loss (02/11/25823) Acute Illness - Muscle Mass Loss: No muscle mass loss (02/11/25823) Acute Illness - Fluid Accumulation : Moderate to Severe (02/11/25823) Acute Illness - Fluid Accumulation Location: Extremities (02/11/25823) Acute Illness - Hatchery Laborer Strength: Not Performed (02/11/25823) Acute Illness - Malnutrition Score: 7 (02/11/25823) Malnutrition Status: No malnutrition (02/11/25823) I agree with the dietitian's malnutrition assessment. Medical Nutrition Therapy: continue current nutrition therapy T Hospital Prophylaxis: DVT: Lovenox Stress Ulcer: PPI Disposition: Shared decision making: All test results, treatment options and disposition options were discussed with the patient today Social determinants of health that may impact management: none Code status: Full Code Disposition: Discharge plan is home vs LTAC Unavoidable Day MIPS Advanced Care Planning documentation: [x] I have confirmed that the patient's Advance Care Plan is present, Code Status is documented, or surrogate decision maker is listed in the patient's medical record [If yes , STOP HERE] [] The patient's Advance Care Plan is NOT present because: [] I confirmed today that the patient does not wish or was not able to name a surrogate decision maker or provide and advance care plan. [] Hospice care is currently being provided or has been provided within the calendar year. [] I did NOT confirm today the presence of an Advance Care Plan or surrogate decision maker documented within the patient's medical record. [DOES NOT SATISFY MIPS PERFORMANCE] LORENA Brown CNP , FRANCHESKA-C 02/26/2025 9:17 AM FACE TO FACE: Patient qualified for home O2. Discussed with patient the medical necessity of home O2. Patient voiced understanding and agreement. LORENA Brown CNP, LORENA MAIL INSERTER-C 02/26/2025, 9:17 AM This patient has Chronic Respiratory Failure secondary to Muscular Dystrophy, requiring noninvasive ventilation therapy in the home to maintain or optimize an acceptable PCO2 level. If the PCO2 level is not managed, this could cause harm or even . This could also reduce respiratory readmissions. BiPAP has proven to be ineffective in maintaining the patients PCO2 levels, now requiring noninvasive therapy. Cosigned by Arleth Milligan MD at 02/26/2025 1:03 PM EDT Associated attestation - Arleth Milligan MD - 02/26/2025 1:03 PM EDT Arleth Milligan M.D. Internal Medicine PA/MAIL INSERTER Attestation Note Patient: Evgeny Delgado Date of Admission: 02/10/2025 4:04 PM Date of Evaluation: 02/26/2025 I personally evaluated and examined the patient [id number] in conjunction with the PA/MAIL INSERTER and agree with the management and dispostition of the patient. Please see the PA/MAIL INSERTER's note for full details. My jeffries findings are: SUBJECTIVE: Evgeny Delgado is a 70 y.o. male who was seen today along with Jillian Plascencia CNP for follow up of Acute respiratory failure with hypoxia and hypercapnia (HCC). He is feeling better today. He denies and cough or SOB. He has been ambulating well. He denies fever or chills and has been afebrile. We discussed the need for home non invasive ventilation due to his high CO2 levels and the fact that going home without a non-invasive ventilator would likely result in his return to ER for respiratory failure / confusion due to hypercapnia. Pt is aware. OBJECTIVE: Vitals: Temp: (!) 96.6 F (35.9 C) BP: 109/63 Respirations: 18 Pulse: 69 SpO2: 93 % on 1 Lpm nasal cannula Weight Wt Readings from Last 3 Encounters: 02/26/25 94 kg (207 lb 4.8 oz) 12/16/24 90.3 kg (199 lb) 09/17/24 90.3 kg (199 lb) Body mass index is 30.6 kg/m . 24HR INTAKE/OUTPUT: Intake/Output Summary (Last 24 hours) at 02/26/2025 1302 Last data filed at 02/26/2025 1037 Gross per 24 hour Intake 240 ml Output 3275 ml Net -3035 ml Exam: GEN: Awake, alert and oriented x 3. EYES: EOMI, pupils equal NECK: Supple. No lymphadenopathy. No carotid bruit CVS: regular rate and rhythm, 2/6 systolic murmur PULM: CTA, no wheezes, rales or rhonchi, no acute respiratory distress ABD: Bowels sounds normal. Abdomen is soft. No distention. no tenderness to palpation. EXT: no edema bilaterally . No calf tenderness. NEURO: Moves all extremities. Motor and sensory are grossly intact SKIN: No rashes. No skin lesions. DATA: Latest Reference Range & Units 02/15/25 06:32 02/16/25 06:15 02/17/25 15:08 02/18/25 05:45 pH, Arterial 7.35 - 7.45 7.290 (L) 7.304 (L) 7.548 (H) 7.348 (L) pH, Art, Temp Adj 7.350 - 7.450 7.290 (LL) 7.304 (L) 7.548 (HH) 7.348 (L) pCO2, Art, Temp Adj 35.0 - 45.0 85.6 (HH) 81.3 (HH) 32.1 (L) 72.7 (HH) pCO2, Arterial 35 - 45 mmHg 85.6 (HH) 81.3 (HH) 32.1 (L) 72.7 (HH) pO2, Art, Temp Adj 80.0 - 100.0 mmHg 66.0 (L) 64.9 (L) 86.4 93.7 pO2, Arterial 80.0 - 100.0 mmHg 66.0 (L) 64.9 (L) 86.4 93.7 HCO3, Arterial 22 - 26 mmol/L 40.2 (H) 39.5 (H) 27.3 (H) 39.1 (H) Positive Base Excess, Art 0.0 - 2.0 mmol/L 10.1 (H) 9.4 (H) 5.4 (H) 10.1 (H) O2 Sat, Arterial 95 - 98 % 91.2 (L) 89.6 (L) 97.6 96.5 Microbiology / Cultures: Results No results found for the last 336 hours. Imaging Data: CT CHEST PULMONARY EMBOLISM W CONTRAST Result Date: 02/10/2025 EXAMINATION: CTA OF THE CHEST 02/10/2025 5:37 pm TECHNIQUE: CTA of the chest was performed after the administration of intravenous contrast. Multiplanar reformatted images are provided for review. MIP images are provided for review. Automated exposure control, iterative reconstruction, and/or weight based adjustment of the mA/kV was utilized to reduce the radiation dose to as low as reasonably achievable. COMPARISON: None. HISTORY: ORDERING SYSTEM PROVIDED HISTORY: dyspnea, PE TECHNOLOGIST PROVIDED HISTORY: dyspnea, PE Decision Support Exception - unselect if not a suspected or confirmed emergency medical condition->Emergency Medical Condition (MA) FINDINGS: Pulmonary Arteries: Pulmonary arteries are adequately opacified for evaluation. No evidence of intraluminal filling defect to suggest pulmonary embolism. Main pulmonary artery is normal in caliber. Mediastinum: The heart size within normal limits. Coronary arterial calcifications. The thoracic aorta is normal caliber with mild atherosclerosis. The esophagus is unremarkable. No pathologically enlarged adenopathy. Lungs/pleura: Elevation of the right hemidiaphragm. Mild right basilar atelectasis versus scarring. No other focal consolidation, pleural effusion or pneumothorax. The central airways are patent. Upper Abdomen: High-density material within the gallbladder. Lobular liver contour. Small hiatal hernia. Soft Tissues/Bones: Age-indeterminate T6 compression deformity but likely chronic. No other acute bone or soft tissue abnormality. 1. No evidence of pulmonary embolism or acute pulmonary abnormality. 2. Age-indeterminate T6 compression deformity, but likely chronic. 3. Gallbladder stones versus sludge. 4. Lobular liver contour, raising suspicion for cirrhosis or chronic liver disease. XR CHEST PORTABLE Result Date: 02/10/2025 EXAMINATION: ONE XRAY VIEW OF THE CHEST 02/10/2025 4:29 pm COMPARISON: None. HISTORY: ORDERING SYSTEM PROVIDED HISTORY: dyspnea TECHNOLOGIST PROVIDED HISTORY: dyspnea FINDINGS: Lines and tubes: None The lungs are clear. Heart size is normal. No acute cardiopulmonary process. ASSESSMENT: Principal Problem: Acute respiratory failure with hypoxia and hypercapnia (HCC) Active Problems: Nonrheumatic aortic valve stenosis Muscular dystrophies (HCC) Type 2 diabetes mellitus, without long-term current use of insulin (HCC) Chronic diastolic heart failure (HCC) Resolved Problems: * No resolved hospital problems. * PLAN: I agree with the assessment, plan and medical decision making documentation as outlined by APC: Treatment plan: Pulm consult appreciated Recommends NIV at home due to continued CO2 retention from muscular dystrophy Per SS insurance denied Trilogy NIV however pt is unsafe to be home without this tx due to severe hypercanpia Labs: Trend ABGs Medications: Continue Entresto, Toprol, Lasix Nutrition status: Well developed, well nourished with no malnutrition Fish Culturist consult appreciated Monitor daily weights Monitor daily I/O's Medication monitoring / High risk medications: none Disposition: Discharge plan is pending availability of NIV delivery Per SS not a candidate for LTAC or [facility] SHARED APC VISIT, PHYSICIAN ATTESTATION: [id number] I personally performed a substantive part of the MDM during the patient's visit. I personally evaluated and examined the patient. I personally made or approved the documented management plan and acknowledge its risk of complications. Test interpretation: My independent EKG interpretation: Normal sinus rhythm with first degree AV block and RBBB My independent imaging interpretation: CXR shows no acute process Management and/or test interpretation discussed with LEVY Drummond MD, M.D. 02/26/2025 1:02 PM Pt resting in chair, denies needs at this time. Vitals and assessment completed. Call light and belongings in reach Patient states he doesn't want pill until 2200 after securities underwriter pulled medications, scanned and opened them, securities underwriter placed medications in locked drawer until ready to take. Patient sitting in bedside chair, assessment and vitals complete at this time, see flow sheet for documentation, patient denies pain at this time, all needs met, call light within reach. RESPIRATORY ASSESSMENT PROTOCOL Patient Name: Evgeny Delgado Room#: 0328/0328-01 : 1955 Admitting diagnosis: Acute on chronic respiratory failure with hypoxia and hypercapnia (HCC) [J96.21, J96.22] Medical History: Past Medical History: Diagnosis Date Aortic stenosis CHF (congestive heart failure) ([facility]) Diabetes mellitus (HCC) FSHD (facioscapulohumeral muscular dystrophy) (HCC) HFrEF (heart failure with reduced ejection fraction) ([facility]) HLD (hyperlipidemia) HTN (hypertension) Nonischemic cardiomyopathy ([facility]) PATIENT ASSESSMENT LABORATORY DATA Hematology: Lab Results Component Value Date/Time WBC 7.0 2025 05:45 AM RBC 4.84 2025 05:45 AM HGB 12.1 2025 05:45 AM HCT 43.5 2025 05:45 AM PLT 154 2025 05:45 AM Chemistry: Lab Results Component Value Date/Time PHART 7.368 02/20/2025 05:32 AM KDY2OUM 64.6 02/20/2025 05:32 AM PO2ART 88.0 02/20/2025 05:32 AM [id number] 96.2 02/20/2025 05:32 AM OFF6ZBW 36.3 02/20/2025 05:32 AM PBEA 8.4 02/20/2025 05:32 AM VITALS Pulse: 74 Respirations: 18 BP: 93/66 SpO2: 93 % O2 Device: Nasal cannula Temp: 97.3 F (36.3 C) SKIN COLOR [x] Normal [] Pale [] Dusky [] Cyanotic RESPIRATORY PATTERN [x] Normal [] Dyspnea [] Romel-Byrd [] Kussmaul [] Biots AMBULATORY [x] Yes [] No [] With Assistance Patient Acuity 0 1 2 3 4 Score Level of Consciousness (LOC) [x] Alert & Oriented or Pt normal LOC [] Confused;follows directions [] Confused & uncooper-ative [] Obtunded [] Comatose 0 Respiratory Rate (RR) [x] Reg. rate & pattern. 12 - 20 bpm [] Increased RR. Greater than 20 bpm [] SOB w/ exertion or RR greater than 24 bpm [] Access- ory muscle use at rest. Abn. resp. [] SOB at rest. 0 Bilateral Breath Sounds (BBS) [] Clear [] Diminish-ed bases [x] Diminish-ed t/o, or rales [] Sporadic, scattered wheezes or rhonchi [] Persistentwheezes and, or absent BBS 2 Cough [] Strong, effective, & non-prod. [x] Effective & prod. Less than 25 ml (2 TBSP) over past 24 hrs [] Ineffective & non-prod to less than 25 ML over past 24 hrs [] Ineffective and, or greater than 25 ml sputum prod. past 24 hrs. [] Nonspon- taneous; Requires suctioning 1 Pulmonary History (PULM HX) [] No smoking and no chronic pulmonary history [] Former smoker. Quit over 12 mos. ago [] Current smoker or quit w/ in 12 mos [] Pulm. History and, or 20 pk/yr smoking hx [x] Admitted w/ acute pulm. dx and, or has been admitted w/ pulm. dx 2 or more times over past 12 mos 4 Surgical History this Admit (SURG HX) [x] No surgery [] General surgery [] Lower abdominal [] Thoracic or upper abdominal [] Thoracic w/ pulm. disease 0 Chest X-Ray (CXR)/CT Scan [] Clear or not applicable [] Not available [x] Atelectasis or pleural effusions [] Localized infiltrate or pulm. edema [] Con-solidated Infiltrates, bilateral, or in more than 1 lobe 2 TOTAL ACUITY: 9 CARE PLAN If Acuity Level is 2, 3, or 4 in any of the following: [x] BILATERAL BREATH SOUNDS (BBS) [x] PULMONARY HISTORY (PULM HX) [] Respiratory Rate (RR) Goal: Improve respiratory functions in patients with airway disease and decrease WOB [x] AEROSOL PROTOCOL Total Acuity: 14-28 [] Secondary Assessment in 24 hrs Total Acuity: 9-13 [x] Secondary Assessment in 24 hrs Total Acuity: 4-8 [] Secondary Assessment in 24 hrs Total Acuity: 0-3 [] Secondary Assessment in 48 hrs HHN AEROSOL THERAPY with [physician-ordered bronchodilator(s)] q 4 & Albuterol PRN q2 hrs. Breath-Actuated Neb if BBS Acuity = 4, and pt. can use MP. Notify physician if condition deteriorates. HHN AEROSOL THERAPY with [physician-ordered bronchodilator(s)] QID and Albuterol PRN q4 hrs. Breath-Actuated Neb if BBS Acuity = 4, and pt. can use MP. Notify physician if condition deteriorates. MDI THERAPY with 2 actuations of [physician-ordered bronchodilator(s)] via spacer TID Albuterol and PRN q4 hrs. If unable to utilize MDI: HHN [physician-ordered bronchodilator(s)] TID and Albuterol PRN q4 hrs. Notify physician if condition deteriorates. MDI THERAPY with [physician-ordered bronchodilator(s)] via spacer TID PRN. If unable to utilize MDI: HHN [physician-ordered bronchodilator(s)] TID PRN. Notify physician if condition deteriorates. If Acuity Level is 2, 3, or 4 in any of the following: [] COUGH [] SURGICAL HISTORY (SURG HX) [x] CHEST XRAY (CXR) Goal: Improvement in sputum mobilization in patients with ineffective airway clearance. Reverse atelectasis. [x] Bronchopulmonary Hygiene Protocol Total Acuity: 14-28 [] Secondary Assessment in 24 hrs Total Acuity: 9-13 [x] Secondary Assessment in 24 hrs Total Acuity: 4-8 [] Secondary Assessment in 24 hrs Total Acuity: 0-3 [] Secondary Assessment in 48 hrs METANEB QID with [physician-ordered bronchodilator(s)] if CXR Acuity = 4; otherwise: PD&P, Oscillatory Therapy, or Vest QID & PRN AND PEP QID & PRN NT Sxn PRN for ineffective cough METANEB QID with [physician-ordered bronchodilator(s)] if CXR Acuity = 4; otherwise: PD&P, Oscillatory Therapy or Vest QID & PRN AND PEP QID & PRN NT Sxn PRN for ineffective cough PD&P, Oscillatory Therapy, or Vest TID & PRN AND PEP TID & PRN Instruct patient to self-perform IS q1hr WA If Acuity Level is 2 or above in the following: [] PULMONARY HISTORY (PULM HX) Goal: Assist patient in quitting smoking to slow or stop the progression of lung disease. [] Smoking Cessation Protocol SMOKING CESSATION EDUCATION provided according to policy RT_201: (fabian with an X) ____Yes ____ No ____ NA Smoking Cessation Booklet given: ____Yes ____No ____Patient Refused Physical Therapy Facility/Department: [facility] Daily Treatment Note NAME: Evgeny Delgado : 1955 Date of Service: 02/25/2025 Discharge Recommendations: Continue to assess pending progress Patient Diagnosis(es): The primary encounter diagnosis was Acute respiratory failure with hypoxia and hypercapnia (HCC). Diagnoses of Muscular dystrophies (HCC), Chronic diastolic heart failure (HCC), and Chronic respiratory failure with hypoxia and hypercapnia (HCC) were also pertinent to this visit. Assessment Assessment: Recined and seated exercises B LE x20. Standing sink exercises B LE x10. Transfers:Mod I/IND Activity Tolerance: Patient tolerated treatment well Plan Physical Therapy Plan General Plan: 2 times a day 7 days a week Specific Instructions for Next Treatment: 1x per week on weekends and holidays Current Treatment Recommendations: Strengthening;ROM;Balance training;Functional mobility training;Transfer training;Gait training;Stair training;Home exercise program;Safety education & training;Patient/Caregiver education & training;Equipment evaluation, education, & procurement;Positioning;Therapeuti c activities Restrictions Restrictions/Precautions Restrictions/Precautions: General Precautions, Fall Risk Required Braces or Orthoses?: Yes Required Braces or Orthoses Right Lower Extremity Brace: Ankle Foot Orthotics Left Lower Extremity Brace: Dinorah Foot Orthotics Subjective Subjective Subjective: Pt in chair upon arrival, agreeable to therapy at this time Pain: denies Objective Bed Mobility Training Bed Mobility Training: No Transfer Training Transfer Training: Yes Overall Level of Assistance: Modified independent;Independent Interventions: Verbal cues Sit to Stand: Modified independent;Independent Stand to Sit: Modified independent;Independent Gait Gait Training: No Overall Level of Assistance: Supervision Distance (ft): 30 Feet Assistive Device: Walker, rollator Interventions: Verbal cues Speed/Diane: Slow Step Length: Left shortened;Right shortened Swing Pattern: Left asymmetrical;Right asymmetrical Gait Abnormalities: Hip hike;Foot drop PT Exercises Exercise Treatment: Reclined and seated exercises B LE x20. Standing sink exercises B LE x10 Other Specialty Interventions Other Treatments/Modalities: standing urinal use Safety Devices Type of Devices: All fall risk precautions in place;Call light within reach;Left in chair Goals Short Term Goals Time Frame for Short Term Goals: 20 visits Short Term Goal 1: Patient will tolerate 20-30' ther-ex in order to increase endurance and ease ADLS Short Term Goal 2: Patient will ascend/descend 4 steps with handrail with supervision assistance in order to safely enter/exit the home Short Term Goal 3: Patient will complete bed mobility and transfers independently in order to return to PLOF Short Term Goal 4: Patient will ambulate 200 feet with rollator with supervision assistance in order to return to PLOF Education Patient Education Education Given To: Patient Education Provided: Role of Therapy;Plan of Care Education Method: Verbal Barriers to Learning: None Education Outcome: Verbalized understanding Therapy Time Individual Concurrent Group Co-treatment Time In 1401 Time Out 1428 Minutes 27 Silvia Stearns PTA Cosigned by Lee Mendez PT at 02/27/2025 8:21 AM EDT Physical Therapy Facility/Department: [facility] Daily Treatment Note NAME: Evgeny Delgado : 1955 Date of Service: 02/25/2025 Discharge Recommendations: Continue to assess pending progress Patient Diagnosis(es): The primary encounter diagnosis was Acute respiratory failure with hypoxia and hypercapnia (HCC). Diagnoses of Muscular dystrophies (HCC), Chronic diastolic heart failure (HCC), and Chronic respiratory failure with hypoxia and hypercapnia (HCC) were also pertinent to this visit. Assessment Assessment: Transfers: Elidia/IND. Gait 15ftx2 with 4WW, with standing urinal use. Pt completed seated B LE exer x15 with no concerns. Activity Tolerance: Patient tolerated treatment well Plan Physical Therapy Plan General Plan: 2 times a day 7 days a week Specific Instructions for Next Treatment: 1x per week on weekends and holidays Current Treatment Recommendations: Strengthening;ROM;Balance training;Functional mobility training;Transfer training;Gait training;Stair training;Home exercise program;Safety education & training;Patient/Caregiver education & training;Equipment evaluation, education, & procurement;Positioning;Therapeuti c activities Restrictions Restrictions/Precautions Restrictions/Precautions: General Precautions, Fall Risk Required Braces or Orthoses?: Yes Required Braces or Orthoses Right Lower Extremity Brace: Ankle Foot Orthotics Left Lower Extremity Brace: Dinorah Foot Orthotics Subjective Subjective Subjective: Pt in chair upon arrival, agreeable to therapy at this time Pain: denies Objective Bed Mobility Training Bed Mobility Training: No Transfer Training Transfer Training: Yes Overall Level of Assistance: Modified independent;Independent Interventions: Verbal cues Sit to Stand: Modified independent;Independent Stand to Sit: Modified independent;Independent Gait Gait Training: Yes Overall Level of Assistance: Supervision Distance (ft): 30 Feet Assistive Device: Walker, rollator Interventions: Verbal cues Speed/Diane: Slow Step Length: Left shortened;Right shortened Swing Pattern: Left asymmetrical;Right asymmetrical Gait Abnormalities: Hip hike;Foot drop PT Exercises Exercise Treatment: Seated B LE therex x 15 in all planes of motion Other Specialty Interventions Other Treatments/Modalities: standing urinal use Safety Devices Type of Devices: All fall risk precautions in place;Call light within reach;Left in chair Goals Short Term Goals Time Frame for Short Term Goals: 20 visits Short Term Goal 1: Patient will tolerate 20-30' ther-ex in order to increase endurance and ease ADLS Short Term Goal 2: Patient will ascend/descend 4 steps with handrail with supervision assistance in order to safely enter/exit the home Short Term Goal 3: Patient will complete bed mobility and transfers independently in order to return to PLOF Short Term Goal 4: Patient will ambulate 200 feet with rollator with supervision assistance in order to return to PLOF Education Patient Education Education Given To: Patient Education Provided: Role of Therapy;Plan of Care Education Method: Verbal Barriers to Learning: None Education Outcome: Verbalized understanding Therapy Time Individual Concurrent Group Co-treatment Time In 939 Time Out 1007 Minutes 27 Silvia Stearns PTA Cosigned by Lee Mendez PT at 02/25/2025 11:27 AM EDT Occupational Therapy Facility/Department: [facility] Daily Treatment Note NAME: Evgeny Delgado : 1955 Date of Service: 02/25/2025 Discharge Recommendations: Continue to assess pending progress Patient Diagnosis(es): The primary encounter diagnosis was Acute respiratory failure with hypoxia and hypercapnia (HCC). Diagnoses of Muscular dystrophies (HCC), Chronic diastolic heart failure (HCC), and Chronic respiratory failure with hypoxia and hypercapnia (HCC) were also pertinent to this visit. Assessment Activity Tolerance: Patient tolerated treatment well Discharge Recommendations: Continue to assess pending progress Plan Occupational Therapy Plan Times Per Day: Once a day Days Per Week: 7 Days Current Treatment Recommendations: Strengthening;Balance training;Endurance training;Functional mobility training;Patient/Caregiver education & training;Safety education & training;Self-Care / ADL;Equipment evaluation, education, & procurement;ROM Restrictions Restrictions/Precautions: General Precautions, Fall Risk Required Braces or Orthoses Right Lower Extremity Brace: Ankle Foot Orthotics Left Lower Extremity Brace: Dinorah Foot Orthotics Required Braces or Orthoses?: Yes Subjective Subjective Subjective: Pt reclined in chair, just finished with PT, agreeable to ther ex- ADLs previously completed Pain: Reports pain 2/10 in back. Objective OT Exercises Exercise Treatment: Pt seated in recliner completed BUE ther ex to increase strength needed for fxl tasks. pt completed Red digiflex x 20 reps x1 set yellow flex bar bends x 20 reps x3 variations and 1# free weight x 20 reps x 5 planes with limited B shoulder ROM Safety Devices Type of Devices: All fall risk precautions in place;Call light within reach;Chair alarm in place;Left in chair Patient Education Education Given To: Patient Education Provided: Role of Therapy;Plan of Care;Home Exercise Program Education Method: Demonstration;Verbal Barriers to Learning: None Education Outcome: Demonstrated understanding;Verbalized understanding Goals Short Term Goals Time Frame for Short Term Goals: 21 visits Short Term Goal 1: Patient to be educated on d/c folder, AE/DME and home safety to ensure safe and indep return home. Short Term Goal 2: Patient to safely complete ADL routine c mod I c use of AE/DME as needed to ensure safe and independnet return home. Short Term Goal 3: Patient to engage in 15 minutes of ther ex/ther act c no more than 2 RB to improve strength and activity tolerance for ADL. AM-PAC - ADL Therapy Time Individual Concurrent Group Co-treatment Time In 1008 Time Out 1024 Minutes 16 Yessy CHAVEZ 02/25/2025 Cosigned by Fauzia Mejia OTR/Anahi at 02/25/2025 12:46 PM EDT Comprehensive Nutrition Assessment Type and Reason for Visit: Reassess Nutrition Recommendations/Plan: Consider routine accuchecks on glipizide. Malnutrition Assessment: Malnutrition Status: No malnutrition (02/11/25 0824) Nutrition Assessment: Continued limited adherence to nutrition recommendations. PO intakes good and weight is up from admission even with lesser LE edema. Not currently on routine accuchecks on Glipizide but denies any symptoms of hypoglycemia. Continues to deny any nutrition related concerns. Nutrition Related Findings: active b/s. + soft formed bm. +1-2 BLE edema (improving) Wound Type: None Current Nutrition Intake & Therapies: Average Meal Intake: 76-100% Average Supplements Intake: None Ordered ADULT DIET; Regular Anthropometric Measures: Height: 175.3 cm (5' 9.02 ) [place] Body Weight (IBW): 160 lbs (73 kg) Admission Body Weight: 89.8 kg (198 lb) Current Body Weight: 93.5 kg (206 lb 1.6 oz), 125.9 % IBW. Weight Source: Bed scale Current BMI (kg/m2): 30.4 Usual Body Weight: 90.3 kg (199 lb) (in December and 198# at admission) % Weight Change (Calculated): 3.6 Weight Adjustment For: No Adjustment BMI Categories: Obese Class 1 (BMI 30.0-34.9) Estimated Daily Nutrient Needs: Energy Requirements Based On: Kcal/kg Weight Used for Energy Requirements: Current Energy (kcal/day): 8694-6302 (18-22kcal/kg) Weight Used for Protein Requirements: [place] Protein (g/day): 87-102 (1.2-1.4 g/kg) Method Used for Fluid Requirements: 1 ml/kcal Fluid (ml/day): 1999 Nutrition Diagnosis: Limited adherence to nutrition-related recommendations related to endocrine dysfunction as evidenced by lab values, other (Diet) Lab Results Component Value Date NA 141 2025 K 4.1 2025 CL 100 2025 CO2 36 (H) 2025 BUN 15 2025 CREATININE 0.5 (L) 2025 GLUCOSE 121 (H) 2025 CALCIUM 8.6 2025 BILITOT 0.7 02/10/2025 ALKPHOS 96 02/10/2025 AST 24 02/10/2025 ALT 21 02/10/2025 LABGLOM >90 2025 No results for input(s): POCGLU in the last 72 hours. Nutrition Interventions: Food and/or Nutrient Delivery: Continue Current Diet Nutrition Education/Counseling: Education/Counseling declined Coordination of Nutrition Care: Continue to monitor while inpatient Plan of Care discussed with: patient Goals: Goals: Meet at least 75% of estimated needs, PO intake 75% or greater Type of Goal: Continue current goal Previous Goal Met: Progressing toward Goal(s) Nutrition Monitoring and Evaluation: Behavioral-Environmental Outcomes: Readiness for Change, Beliefs and Attitudes Food/Nutrient Intake Outcomes: Food and Nutrient Intake Physical Signs/Symptoms Outcomes: Biochemical Data, Fluid Status or Edema, Weight Discharge Planning: Continue current diet Flex Andrews RD, LD Contact: [phone] Images from the original note were not included. IT NETWORK ADMINISTRATOR - Progress Note Patient - Evgeny Delgado Date of Admission - 02/10/2025 4:04 PM Date of Evaluation - 02/25/2025 Hospital Day - 15 SUBJECTIVE: The Evgeny Delgado is a 70 y.o. male sitting up in chair on 2L of oxygen. No distress or complaints. Discussed the need to go to an LTAC if Insurance is not approving the equipment. No other complaints ROS: Constitutional: negative for fevers, and negative for chills. Respiratory: negative for shortness of breath, positive for cough, and negative for wheezing Cardiovascular: negative for chest pain, and negative for palpitations Gastrointestinal: negative for abdominal pain, negative for nausea,negative for vomiting, negative for diarrhea, and negative for constipation All other systems were reviewed with the patient and are negative unless otherwise stated in HPI. OBJECTIVE: VITAL SIGNS: Patient Vitals for the past 8 hrs: BP Temp Temp src Pulse Resp SpO2 02/25/25 0704 102/64 97.3 F (36.3 C) Temporal 72 18 95 % 02/25/25 0525 -- -- -- -- -- 95 % 02/25/25 05 -- -- -- -- -- 95 % Temp: 97.3 F (36.3 C) Temp range: Temp Av.3 F (36.3 C) Min: 97.3 F (36.3 C) Max: 97.3 F (36.3 C) BP: 102/64 BP Range: Systolic (24hrs), Av , Min:99 , Max:128 Diastolic (24hrs), Av, Min:64, Max:68 Pulse: 72 Pulse Range: Pulse Av.7 Min: 72 Max: 90 Respirations: 18 Resp Range: Resp Av.2 Min: 18 Max: 20 SpO2: 95 % on supplemental O2 SpO2 range: SpO2 Av.6 % Min: 94 % Max: 98 % Weight Wt Readings from Last 3 Encounters: 02/24/25 93.5 kg (206 lb 1.6 oz) 12/16/24 90.3 kg (199 lb) 09/17/24 90.3 kg (199 lb) Body mass index is 30.42 kg/m . 24HR INTAKE/OUTPUT: Intake/Output Summary (Last 24 hours) at 02/25/2025 0812 Last data filed at 02/25/2025 0637 Gross per 24 hour Intake 950 ml Output 2975 ml Net -2024 ml Date 02/25/25 0000 - 02/25/25 2359 Shift [id number] 6220-6221 6528-9773 24 Hour Total INTAKE P.O. 350 350 Shift Total(mL/kg) 350(3.8) 350(3.8) OUTPUT Urine(mL/kg/hr) 1325(1.8) 1325 Shift Total(mL/kg) 1325(14.6) 1325(14.6) Weight (kg) 90.9 90.9 90.9 90.9 PHYSICAL EXAM: GEN: Awake and following commands: [] No [x] Yes MENTAL STATUS: alert and oriented x3. DISTRESS: Acute respiratory distress: [x] No [] Yes EYES: EOMI, pupils equal NECK: Supple. No lymphadenopathy. No carotid bruit CVS: regular rate and rhythm, 2/6 systolic murmur PULM: diminished but clear, no acute respiratory distress ABD: Bowels sounds normal. Abdomen is soft. No distention. no tenderness to palpation. EXT: no edema bilaterally . No calf tenderness. NEURO: Moves all extremities. Motor and sensory are grossly intact SKIN: No rashes. No skin lesions. DATA: Complete Blood Count: Latest Reference Range & Units 02/19/25 05:45 WBC 3.5 - 11.3 k/uL 7.0 RBC 4.21 - 5.77 m/uL 4.84 Hemoglobin Quant 13.0 - 17.0 g/dL 12.1 (L) Hematocrit 40.7 - 50.3 % 43.5 MCV 82.6 - 102.9 fL 89.9 MCH 25.2 - 33.5 pg 25.0 (L) MCHC 28.4 - 34.8 g/dL 27.8 (L) MPV 8.1 - 13.5 fL 10.3 RDW 11.8 - 14.4 % 19.0 (H) Platelet Count 138 - 453 k/uL 154 Neutrophils % 36 - 65 % 69 (H) Lymphocyte % 24 - 43 % 19 (L) Monocytes % 3 - 12 % 8 Eosinophils % 1 - 4 % 2 Basophils % 0 - 2 % 1 Neutrophils Absolute 1.50 - 8.10 k/uL 4.83 Lymphocytes Absolute 1.10 - 3.70 k/uL 1.33 Monocytes Absolute 0.10 - 1.20 k/uL 0.56 Eosinophils Absolute 0.00 - 0.44 k/uL 0.14 Basophils Absolute 0.00 - 0.20 k/uL 0.07 Immature Granulocytes % 0 % 1 (H) Morphology Platelet scan shows Normal Platelets POIKILOCYTOSIS PRESENT Immature Granulocytes Absolute 0.00 - 0.30 k/uL 0.07 NRBC Automated 0.0 per 100 WBC 0.0 (L): Data is abnormally low (H): Data is abnormally high Latest Reference Range & Units 02/10/25 16:18 02/11/25 05:08 02/12/25 05:05 02/13/25 06:12 02/14/25 06:35 02/15/25 06:00 02/19/25 05:45 WBC 3.5 - 11.3 k/uL 7.1 6.4 6.4 6.6 5.9 6.0 7.0 RBC 4.21 - 5.77 m/uL 5.94 (H) 5.17 5.15 5.59 5.46 5.07 4.84 Hemoglobin Quant 13.0 - 17.0 g/dL 14.6 12.8 (L) 12.9 (L) 14.0 13.5 12.7 (L) 12.1 (L) Hematocrit 40.7 - 50.3 % 53.0 (H) 45.7 45.9 49.6 48.3 45.6 43.5 MCV 82.6 - 102.9 fL 89.2 88.4 89.1 88.7 88.5 89.9 89.9 MCH 25.2 - 33.5 pg 24.6 (L) 24.8 (L) 25.0 (L) 25.0 (L) 24.7 (L) 25.0 (L) 25.0 (L) MCHC 28.4 - 34.8 g/dL 27.5 (L) 28.0 (L) 28.1 (L) 28.2 (L) 28.0 (L) 27.9 (L) 27.8 (L) MPV 8.1 - 13.5 fL 9.4 10.1 10.6 10.1 10.2 10.7 10.3 RDW 11.8 - 14.4 % 18.2 (H) 17.6 (H) 18.0 (H) 18.1 (H) 18.7 (H) 18.5 (H) 19.0 (H) Platelet Count 138 - 453 k/uL 162 166 161 144 135 (L) 151 154 Neutrophils % 36 - 65 % 73 (H) 66 (H) 63 61 69 (H) 69 (H) 69 (H) Lymphocyte % 24 - 43 % 18 (L) 24 25 28 21 (L) 22 (L) 19 (L) Monocytes % 3 - 12 % 7 8 8 7 7 6 8 Eosinophils % 1 - 4 % 1 1 2 2 2 2 2 Basophils % 0 - 2 % 0 0 1 1 0 0 1 Neutrophils Absolute 1.50 - 8.10 k/uL 5.18 4.23 4.04 4.02 4.07 4.14 4.83 Lymphocytes Absolute 1.10 - 3.70 k/uL 1.28 1.54 1.60 1.85 1.24 1.32 1.33 Monocytes Absolute 0.10 - 1.20 k/uL 0.50 0.51 0.51 0.46 0.41 0.36 0.56 Eosinophils Absolute 0.00 - 0.44 k/uL 0.07 0.06 0.13 0.13 0.12 0.12 0.14 Basophils Absolute 0.00 - 0.20 k/uL 0.00 0.00 0.06 0.07 0.00 0.00 0.07 Immature Granulocytes % 0 % 1 (H) 1 (H) 1 (H) 1 (H) 1 (H) 1 (H) 1 (H) Morphology HYPOCHROMIA PRESENT HYPOCHROMIA PRESENT HYPOCHROMIA PRESENT HYPOCHROMIA PRESENT Normal Normal Platelet scan shows Normal Platelets POIKILOCYTOSIS PRESENT Immature Granulocytes Absolute 0.00 - 0.30 k/uL 0.07 0.06 0.06 0.07 0.06 0.06 0.07 NRBC Automated 0.0 per 100 WBC 0.0 0.0 0.0 0.0 0.0 0.0 0.0 (H): Data is abnormally high (L): Data is abnormally low Latest Reference Range & Units 02/10/25 16:18 02/10/25 18:53 Troponin, High Sensitivity 0 - 22 ng/L 149 (HH) 131 (HH) (HH): Data is critically high Latest Reference Range & Units 02/10/25 16:18 NT Pro-BNP 0 - 125 pg/mL 147 (H) (H): Data is abnormally high Comprehensive Metabolic Profile: Latest Reference Range & Units 02/19/25 05:45 Sodium 136 - 145 mmol/L 141 Potassium 3.7 - 5.3 mmol/L 4.1 Chloride 98 - 107 mmol/L 100 CARBON DIOXIDE 20 - 31 mmol/L 36 (H) BUN,BUNPL 8 - 23 mg/dL 15 Creatinine 0.70 - 1.20 mg/dL 0.5 (L) Bun/Cre 9 - 20 30 (H) Anion Gap 9 - 16 mmol/L 5 (L) Est, Glom Filt Rate >60 mL/min/1.73m2 >90 Glucose 74 - 99 mg/dL 121 (H) Calcium 8.6 - 10.4 mg/dL 8.6 (H): Data is abnormally high (L): Data is abnormally low Latest Reference Range & Units 02/10/25 16:18 02/10/25 18:53 02/11/25 05:08 02/12/25 05:05 02/13/25 06:12 02/14/25 06:35 02/15/25 06:00 02/19/25 05:45 Sodium 136 - 145 mmol/L 140 140 141 139 140 141 141 Potassium 3.7 - 5.3 mmol/L 4.6 3.9 4.2 4.4 4.6 4.0 4.1 Chloride 98 - 107 mmol/L 91 (L) 96 (L) 96 (L) 96 (L) 96 (L) 96 (L) 100 CARBON DIOXIDE 20 - 31 mmol/L 41 (HH) 39 (H) 37 (H) 36 (H) 38 (H) 36 (H) 36 (H) BUN,BUNPL 8 - 23 mg/dL 14 14 15 14 16 16 15 Creatinine 0.70 - 1.20 mg/dL 0.5 (L) 0.4 (L) 0.5 (L) 0.5 (L) 0.5 (L) 0.5 (L) 0.5 (L) Bun/Cre 9 - 20 28 (H) 35 (H) 30 (H) 28 (H) 32 (H) 32 (H) 30 (H) Anion Gap 9 - 16 mmol/L 8 (L) 5 (L) 8 (L) 7 (L) 6 (L) 9 5 (L) Est, Glom Filt Rate >60 mL/min/1.73m2 >90 >90 >90 >90 >90 >90 >90 Glucose 74 - 99 mg/dL 182 (H) 107 (H) 121 (H) 117 (H) 109 (H) 122 (H) 121 (H) Calcium 8.6 - 10.4 mg/dL 9.5 8.7 9.0 9.1 9.0 8.7 8.6 Albumin/Globulin Ratio 1.0 - 2.5 1.8 Total Protein 6.6 - 8.7 g/dL 6.7 Troponin, High Sensitivity 0 - 22 ng/L 149 (HH) 131 (HH) NT Pro-BNP 0 - 125 pg/mL 147 (H) Albumin 3.5 - 5.2 g/dL 4.3 Alkaline Phosphatase 40 - 129 U/L 96 ALT 10 - 50 U/L 21 AST 10 - 50 U/L 24 Total Bilirubin 0.00 - 1.20 mg/dL 0.7 (HH): Data is critically high (L): Data is abnormally low (H): Data is abnormally high ABGs: Latest Reference Range & Units 02/19/25 06:39 02/20/25 05:32 pH, Arterial 7.35 - 7.45 7.318 (L) 7.368 pH, Art, Temp Adj 7.350 - 7.450 7.318 (L) 7.368 pCO2, Art, Temp Adj 35.0 - 45.0 77.6 (HH) 64.6 (HH) pCO2, Arterial 35 - 45 mmHg 77.6 (HH) 64.6 (HH) pO2, Art, Temp Adj 80.0 - 100.0 mmHg 69.9 (L) 88.0 pO2, Arterial 80.0 - 100.0 mmHg 69.9 (L) 88.0 HCO3, Arterial 22 - 26 mmol/L 38.9 (H) 36.3 (H) Positive Base Excess, Art 0.0 - 2.0 mmol/L 9.3 (H) 8.4 (H) O2 Sat, Arterial 95 - 98 % 91.8 (L) 96.2 Pt Temp 37.0 37.0 Sample Site Right Radial Artery Right Radial Artery O2 Device/Flow/% Cannula ROOM AIR Text for Respiratory Called to PROVIDER on 11/22/2024 at 06:42 Called to RN on 02/20/2025 at 05:34 (HH): Data is critically high (L): Data is abnormally low (H): Data is abnormally high (H): Data is abnormally high Latest Reference Range & Units 02/17/25 15:08 02/18/25 05:45 pH, Arterial 7.35 - 7.45 7.548 (H) 7.348 (L) pH, Art, Temp Adj 7.350 - 7.450 7.548 (HH) 7.348 (L) pCO2, Art, Temp Adj 35.0 - 45.0 32.1 (L) 72.7 (HH) pCO2, Arterial 35 - 45 mmHg 32.1 (L) 72.7 (HH) pO2, Art, Temp Adj 80.0 - 100.0 mmHg 86.4 93.7 pO2, Arterial 80.0 - 100.0 mmHg 86.4 93.7 HCO3, Arterial 22 - 26 mmol/L 27.3 (H) 39.1 (H) Positive Base Excess, Art 0.0 - 2.0 mmol/L 5.4 (H) 10.1 (H) O2 Sat, Arterial 95 - 98 % 97.6 96.5 Pt Temp 37.0 37.0 Sample Site Left Radial Artery Right Radial Artery O2 Device/Flow/% BIPAP BIPAP Text for Respiratory Called to RN on 02/18/2025 at 05:49 (HH): Data is critically high (H): Data is abnormally high (L): Data is abnormally low Latest Reference Range & Units 02/15/25 06:32 02/16/25 06:15 pH, Arterial 7.35 - 7.45 7.290 (L) 7.304 (L) pH, Art, Temp Adj 7.350 - 7.450 7.290 (LL) 7.304 (L) pCO2, Art, Temp Adj 35.0 - 45.0 85.6 (HH) 81.3 (HH) pCO2, Arterial 35 - 45 mmHg 85.6 (HH) 81.3 (HH) pO2, Art, Temp Adj 80.0 - 100.0 mmHg 66.0 (L) 64.9 (L) pO2, Arterial 80.0 - 100.0 mmHg 66.0 (L) 64.9 (L) HCO3, Arterial 22 - 26 mmol/L 40.2 (H) 39.5 (H) Positive Base Excess, Art 0.0 - 2.0 mmol/L 10.1 (H) 9.4 (H) O2 Sat, Arterial 95 - 98 % 91.2 (L) 89.6 (L) Pt Temp 37.0 37.0 Sample Site Right Brachial Artery Right Radial Artery O2 Device/Flow/% Cannula Cannula Text for Respiratory Called to RN on 02/15/2025 at 06:35 Called to RN on 02/16/2025 at 06:18 (LL): Data is critically low (HH): Data is critically high (L): Data is abnormally low (H): Data is abnormally high Latest Reference Range & Units 02/13/25 10:10 02/14/25 06:05 pH, Arterial 7.35 - 7.45 7.359 7.339 (L) pH, Art, Temp Adj 7.350 - 7.450 7.359 7.339 (L) pCO2, Art, Temp Adj 35.0 - 45.0 71.6 (HH) 74.2 (HH) pCO2, Arterial 35 - 45 mmHg 71.6 (HH) 74.2 (HH) pO2, Art, Temp Adj 80.0 - 100.0 mmHg 63.4 (L) 129.5 (H) pO2, Arterial 80.0 - 100.0 mmHg 63.4 (L) 129.5 (H) HCO3, Arterial 22 - 26 mmol/L 39.5 (H) 39.0 (H) Positive Base Excess, Art 0.0 - 2.0 mmol/L 10.6 (H) 9.8 (H) O2 Sat, Arterial 95 - 98 % 90.5 (L) 98.3 (H) (HH): Data is critically high (L): Data is abnormally low (H): Data is abnormally high Latest Reference Range & Units 02/11/25 09:04 02/11/25 11:59 02/12/25 07:21 pH, Arterial 7.35 - 7.45 7.343 (L) 7.335 (L) pH, Art, Temp Adj 7.350 - 7.450 7.343 (L) 7.335 (L) pCO2, Art, Temp Adj 35.0 - 45.0 64.9 (HH) 65.4 (HH) pCO2, Arterial 35 - 45 mmHg 64.9 (HH) 65.4 (HH) pO2, Art, Temp Adj 80.0 - 100.0 mmHg 73.1 (L) 80.8 pO2, Arterial 80.0 - 100.0 mmHg 73.1 (L) 80.8 HCO3, Arterial 22 - 26 mmol/L 34.5 (H) 34.1 (H) Positive Base Excess, Art 0.0 - 2.0 mmol/L 6.3 (H) 5.8 (H) O2 Sat, Arterial 95 - 98 % 93.4 (L) 94.9 (L) pH, Galo 7.32 - 7.42 7.321 pH, Galo, Temp Adj 7.320 - 7.420 7.321 pCO2, Galo 39 - 55 mm Hg 82.0 (HH) pO2, Galo 30.0 - 50.0 mm Hg 35.3 pO2, Galo, Temp Adj 30.0 - 50.0 mmHg 35.3 Bicarbonate, Venous 24.0 - 30.0 mmol/L 41.4 (H) Positive Base Excess, Galo 0.0 - 2.0 mmol/L 11.3 (H) O2 Saturation Venous 60.0 - 85.0 % 59.9 (L) Pt Temp 37.0 37.0 37.0 Sample Site Right Radial Artery Right Brachial Artery Set Rate 1 1 O2 Device/Flow/% Cannula Cannula HEATED HIGH FLOW Text for Respiratory Called to RN on 02/11/2025 at 09:07 Called to RN on 02/11/2025 at 12:02 Called to RN on 02/12/2025 at 07:24 (HH): Data is critically high (L): Data is abnormally low (H): Data is abnormally high Latest Reference Range & Units 02/10/25 16:26 02/10/25 21:01 02/10/25 23:05 02/11/25 05:20 pH, Arterial 7.35 - 7.45 7.389 pH, Art, Temp Adj 7.350 - 7.450 7.389 pCO2, Art, Temp Adj 35.0 - 45.0 73.5 (HH) pCO2, Arterial 35 - 45 mmHg 73.5 (HH) pO2, Art, Temp Adj 80.0 - 100.0 mmHg 66.6 (L) pO2, Arterial 80.0 - 100.0 mmHg 66.6 (L) HCO3, Arterial 22 - 26 mmol/L 43.4 (H) Positive Base Excess, Art 0.0 - 2.0 mmol/L 14.4 (H) O2 Sat, Arterial 95 - 98 % 92.2 (L) pH, Galo 7.32 - 7.42 7.368 7.408 7.336 pH, Galo, Temp Adj 7.320 - 7.420 7.368 7.408 7.336 pCO2, Galo 39 - 55 mm Hg 72.0 (HH) 62.0 (HH) 76.1 (HH) pO2, Galo 30.0 - 50.0 mm Hg 26.0 (L) 40.2 92.2 (H) pO2, Galo, Temp Adj 30.0 - 50.0 mmHg 26.0 (L) 40.2 92.2 (H) Bicarbonate, Venous 24.0 - 30.0 mmol/L 40.5 (H) 38.2 (H) 39.8 (H) Positive Base Excess, Galo 0.0 - 2.0 mmol/L 11.7 (H) 10.8 (H) 10.4 (H) O2 Saturation Venous 60.0 - 85.0 % 43.3 (L) 74.0 96.2 (H) Pt Temp 37.0 37.0 37.0 37.0 Sample Site Left Brachial Artery O2 Device/Flow/% Cannula BIPAP BIPAP Text for Respiratory Called to PROVIDER on 02/10/2025 at 16:28 Called to PROVIDER on 02/10/2025 at 21:02 Called to PROVIDER on 02/10/2025 at 23:07 Called to RN on 02/11/2025 at 05:22 (HH): Data is critically high (L): Data is abnormally low (H): Data is abnormally high Radiology/Imaging: XR CHEST (2 VW) Final Result No acute cardiopulmonary disease. Stable subsegmental atelectasis on the right. CT CHEST PULMONARY EMBOLISM W CONTRAST Final Result 1. No evidence of pulmonary embolism or acute pulmonary abnormality. 2. Age-indeterminate T6 compression deformity, but likely chronic. 3. Gallbladder stones versus sludge. 4. Lobular liver contour, raising suspicion for cirrhosis or chronic liver disease. XR CHEST PORTABLE Final Result No acute cardiopulmonary process. ASSESSMENT / PLAN: Primary Problem(s): Acute respiratory failure with hypoxia and hypercapnia (HCC) Differential diagnoses: Pneumonia, viral illness, COPD exacerbation, CHF Condition is an acute or chronic illness or injury that poses threat to life or bodily function Condition is stable Treatment plan: Appreciate pulmonology Discussed with Dr. Perkins/Dr Russell/Dr Cheek Recommendations: BiPAP, intubation, palliative care. Trilogy at home-Discussed with DR Russell. Settings: Cancel-Mas Pressure Support-14 cwp, Min PS 8 cwp, Max EPAP 8 cwp, Mi EPAP 4 cwp, TV 400-500 ml, RR 10 with 1L of Oxygen 02/17/2025-Will reach out to Pulm--ABGs worsening despite changes RT has made Changed to BiPAP 09/20 with a backup rate 12. May go up to an IPAP of 14. Clock if this does not work then only other option is tracheostomy, ventilator for palliative care Now qualifies for 2L of oxygen. I did call and spoke with his Barrel Loader, Dr Church at [place] and discussed his case on 02/17/2025. Likely related to MD due to no infectious process 02/24/2025-SS continues to work with Ins. Resubmitted for appeals and awaiting. Respiratory viral panel-negative Monitor labs and replace electrolytes Nocturnal Pulse oximetry completed Imaging: no further imaging studies ordered today Medications: Continue nebs Completed Zpak Continue Zyrtec Medication Monitoring / High Risk Medications: none Chronic diastolic CHF Condition is a chronic stable condition Treatment plan: Monitor labs and replace electrolytes I&O, daily weights Imaging: no further imaging studies ordered today Last echo from 12/16/2024 showed an EF of 55 to 60%, mildly increased wall thickness, grade 1 diastolic dysfunction with normal LAP, moderate to severe aortic stenosis Medications: Continue Entresto Continue Toprol-XL Continue Lasix Nutrition status: Well developed, well nourished with no malnutrition I/O Daily Weight Nutritional Supplements as tolerated Fish Culturist consult initiated MALNUTRITION ASSESSMENT AND PLAN The following was documented by the Dietitian: Malnutrition Assessment Context of Malnutrition: Acute Illness (02/11/25823) Acute Illness - Energy Intake : No decrease in energy intake (02/11/25823) Acute Illness - Weight Loss : No weight loss (02/11/25823) Acute Illness - Body Fat Loss: No body fat loss (02/11/25823) Acute Illness - Muscle Mass Loss: No muscle mass loss (02/11/25823) Acute Illness - Fluid Accumulation : Moderate to Severe (02/11/25823) Acute Illness - Fluid Accumulation Location: Extremities (02/11/25823) Acute Illness - Hatchery Laborer Strength: Not Performed (02/11/25823) Acute Illness - Malnutrition Score: 7 (02/11/25823) Malnutrition Status: No malnutrition (02/11/25823) I agree with the dietitian's malnutrition assessment. Medical Nutrition Therapy: continue current nutrition therapy [facility] Prophylaxis: DVT: Lovenox Stress Ulcer: PPI Disposition: Shared decision making: All test results, treatment options and disposition options were discussed with the patient today Social determinants of health that may impact management: none Code status: Full Code Disposition: Discharge plan is home vs LTAC Unavoidable Day MIPS Advanced Care Planning documentation: [x] I have confirmed that the patient's Advance Care Plan is present, Code Status is documented, or surrogate decision maker is listed in the patient's medical record [If yes , STOP HERE] [] The patient's Advance Care Plan is NOT present because: [] I confirmed today that the patient does not wish or was not able to name a surrogate decision maker or provide and advance care plan. [] Hospice care is currently being provided or has been provided within the calendar year. [] I did NOT confirm today the presence of an Advance Care Plan or surrogate decision maker documented within the patient's medical record. [DOES NOT SATISFY MIPS PERFORMANCE] LORENA Brown CNP , LORENA-PAULA-C 02/25/2025 8:12 AM FACE TO FACE: Patient qualified for home O2. Discussed with patient the medical necessity of home O2. Patient voiced understanding and agreement. LORENA Brown CNP, LORENA MAIL INSERTER-C 02/25/2025, 8:12 AM This patient has Chronic Respiratory Failure secondary to Muscular Dystrophy, requiring noninvasive ventilation therapy in the home to maintain or optimize an acceptable PCO2 level. If the PCO2 level is not managed, this could cause harm or even . This could also reduce respiratory readmissions. BiPAP has proven to be ineffective in maintaining the patients PCO2 levels, now requiring noninvasive therapy. Cosigned by Arleth Milligan MD at 02/25/2025 5:06 PM EDT Associated attestation - Arleth Milligan MD - 02/25/2025 5:06 PM EDT Arleth Milligan M.D. Internal Medicine PA/MAIL INSERTER Attestation Note Patient: Evgeny Delgado Date of Admission: 02/10/2025 4:04 PM Date of Evaluation: 02/25/2025 I personally evaluated and examined the patient [id number] in conjunction with the PA/MAIL INSERTER and agree with the management and dispostition of the patient. Please see the PA/MAIL INSERTER's note for full details. My jeffries findings are: SUBJECTIVE: Evgeny Delgado is a 70 y.o. male who was seen today along with Jillian Plascencia CNP for follow up of Acute respiratory failure with hypoxia and hypercapnia (HCC). He is feeling better today. He denies and cough or SOB. He denies fever or chills and has been afebrile. We discussed the need for home non invasive ventilation due to his high CO2 levels and the fact that going home without a non-invasive ventilator would likely result in his return to ER for respiratory failure / confusion due to hypercapnia. Pt is aware. I also discussed that he cannot stay in the hospital indefinitely while awaiting approval and recommended LTAC unit or SBU. Pt not happy with these choices and would rather stay in the hospital for as long as I can . OBJECTIVE: Vitals: Temp: 97.3 F (36.3 C) BP: 109/63 Respirations: 18 Pulse: 74 SpO2: 93 % on 1 Lpm nasal cannula Weight Wt Readings from Last 3 Encounters: 02/24/25 93.5 kg (206 lb 1.6 oz) 12/16/24 90.3 kg (199 lb) 09/17/24 90.3 kg (199 lb) Body mass index is 30.42 kg/m . 24HR INTAKE/OUTPUT: Intake/Output Summary (Last 24 hours) at 02/25/2025 1704 Last data filed at 02/25/2025 1534 Gross per 24 hour Intake 350 ml Output 2625 ml Net -2275 ml Exam: GEN: Awake, alert and oriented x 3. EYES: EOMI, pupils equal NECK: Supple. No lymphadenopathy. No carotid bruit CVS: regular rate and rhythm, 2/6 systolic murmur PULM: CTA, no wheezes, rales or rhonchi, no acute respiratory distress ABD: Bowels sounds normal. Abdomen is soft. No distention. no tenderness to palpation. EXT: no edema bilaterally . No calf tenderness. NEURO: Moves all extremities. Motor and sensory are grossly intact SKIN: No rashes. No skin lesions. DATA: Latest Reference Range & Units 02/15/25 06:32 02/16/25 06:15 02/17/25 15:08 02/18/25 05:45 pH, Arterial 7.35 - 7.45 7.290 (L) 7.304 (L) 7.548 (H) 7.348 (L) pH, Art, Temp Adj 7.350 - 7.450 7.290 (LL) 7.304 (L) 7.548 (HH) 7.348 (L) pCO2, Art, Temp Adj 35.0 - 45.0 85.6 (HH) 81.3 (HH) 32.1 (L) 72.7 (HH) pCO2, Arterial 35 - 45 mmHg 85.6 (HH) 81.3 (HH) 32.1 (L) 72.7 (HH) pO2, Art, Temp Adj 80.0 - 100.0 mmHg 66.0 (L) 64.9 (L) 86.4 93.7 pO2, Arterial 80.0 - 100.0 mmHg 66.0 (L) 64.9 (L) 86.4 93.7 HCO3, Arterial 22 - 26 mmol/L 40.2 (H) 39.5 (H) 27.3 (H) 39.1 (H) Positive Base Excess, Art 0.0 - 2.0 mmol/L 10.1 (H) 9.4 (H) 5.4 (H) 10.1 (H) O2 Sat, Arterial 95 - 98 % 91.2 (L) 89.6 (L) 97.6 96.5 Microbiology / Cultures: Results No results found for the last 336 hours. Imaging Data: CT CHEST PULMONARY EMBOLISM W CONTRAST Result Date: 02/10/2025 EXAMINATION: CTA OF THE CHEST 02/10/2025 5:37 pm TECHNIQUE: CTA of the chest was performed after the administration of intravenous contrast. Multiplanar reformatted images are provided for review. MIP images are provided for review. Automated exposure control, iterative reconstruction, and/or weight based adjustment of the mA/kV was utilized to reduce the radiation dose to as low as reasonably achievable. COMPARISON: None. HISTORY: ORDERING SYSTEM PROVIDED HISTORY: dyspnea, PE TECHNOLOGIST PROVIDED HISTORY: dyspnea, PE Decision Support Exception - unselect if not a suspected or confirmed emergency medical condition->Emergency Medical Condition (MA) FINDINGS: Pulmonary Arteries: Pulmonary arteries are adequately opacified for evaluation. No evidence of intraluminal filling defect to suggest pulmonary embolism. Main pulmonary artery is normal in caliber. Mediastinum: The heart size within normal limits. Coronary arterial calcifications. The thoracic aorta is normal caliber with mild atherosclerosis. The esophagus is unremarkable. No pathologically enlarged adenopathy. Lungs/pleura: Elevation of the right hemidiaphragm. Mild right basilar atelectasis versus scarring. No other focal consolidation, pleural effusion or pneumothorax. The central airways are patent. Upper Abdomen: High-density material within the gallbladder. Lobular liver contour. Small hiatal hernia. Soft Tissues/Bones: Age-indeterminate T6 compression deformity but likely chronic. No other acute bone or soft tissue abnormality. 1. No evidence of pulmonary embolism or acute pulmonary abnormality. 2. Age-indeterminate T6 compression deformity, but likely chronic. 3. Gallbladder stones versus sludge. 4. Lobular liver contour, raising suspicion for cirrhosis or chronic liver disease. XR CHEST PORTABLE Result Date: 02/10/2025 EXAMINATION: ONE XRAY VIEW OF THE CHEST 02/10/2025 4:29 pm COMPARISON: None. HISTORY: ORDERING SYSTEM PROVIDED HISTORY: dyspnea TECHNOLOGIST PROVIDED HISTORY: dyspnea FINDINGS: Lines and tubes: None The lungs are clear. Heart size is normal. No acute cardiopulmonary process. ASSESSMENT: Principal Problem: Acute respiratory failure with hypoxia and hypercapnia (HCC) Active Problems: Nonrheumatic aortic valve stenosis Muscular dystrophies (HCC) Type 2 diabetes mellitus, without long-term current use of insulin (HCC) Chronic diastolic heart failure (HCC) Resolved Problems: * No resolved hospital problems. * PLAN: I agree with the assessment, plan and medical decision making documentation as outlined by APC: Treatment plan: Pulm consult appreciated Recommends NIV at home due to continued CO2 retention from muscular dystrophy Per SS insurance denied Trilogy NIV however pt is unsafe to be home without this tx due to severe hypercanpia Labs: Trend ABGs Medications: Continue Entresto, Toprol, Lasix Nutrition status: Well developed, well nourished with no malnutrition Fish Culturist consult appreciated Monitor daily weights Monitor daily I/O's Medication monitoring / High risk medications: none Disposition: Discharge plan is pending availability of NIV delivery Discussed LTAC vs [facility]BU until Trilogy NIV machine can be approved SHARED APC VISIT, PHYSICIAN ATTESTATION: [id number] I personally performed a substantive part of the MDM during the patient's visit. I personally evaluated and examined the patient. I personally made or approved the documented management plan and acknowledge its risk of complications. Test interpretation: My independent EKG interpretation: Normal sinus rhythm with first degree AV block and RBBB My independent imaging interpretation: CXR shows no acute process Management and/or test interpretation discussed with LEVY Drummond MD , M.Cooper. 02/25/2025 5:04 PM Wing Commander to bedside to complete morning assessment. Upon entry to room, pt sitting up In chair, respirations even and unlabored while on room air. Vitals obtained and assessment completed, see flow sheet for details. Pt denies needs from securities underwriter at this time. Call light in reach. Chair alarm active. Care ongoing. Images from the original note were not included. IT NETWORK ADMINISTRATOR - Progress Note Patient - Evgeny Delgado Date of Admission - 02/10/2025 4:04 PM Date of Evaluation - 02/24/2025 Hospital Day - 14 SUBJECTIVE: The Evgeny Delgado is a 70 y.o. male sitting up in chair on 2L of oxygen. No distress or complaints. Continues to await equipment for home. He has been updated by social economist on what is occurring as far as getting the equipment. He does feel that the insurance company is taking away his right life. Patient reports his congestion is improved and he has completed the Z-Corbin. ROS: Constitutional: negative for fevers, and negative for chills. Respiratory: negative for shortness of breath, positive for cough, and negative for wheezing Cardiovascular: negative for chest pain, and negative for palpitations Gastrointestinal: negative for abdominal pain, negative for nausea,negative for vomiting, negative for diarrhea, and negative for constipation All other systems were reviewed with the patient and are negative unless otherwise stated in HPI. OBJECTIVE: VITAL SIGNS: Patient Vitals for the past 8 hrs: BP Pulse Resp SpO2 02/24/25 1520 -- -- 20 95 % 02/24/25 1211 120/66 88 -- -- 02/24/25 1005 -- 90 20 94 % 02/24/25 0911 100/64 79 -- -- Temp: 97.1 F (36.2 C) Temp range: Temp Av.5 F (36.4 C) Min: 97.1 F (36.2 C) Max: 97.8 F (36.6 C) BP: 120/66 BP Range: Systolic (24hrs), Av , Min:94 , Max:120 Diastolic (24hrs), Av, Min:61, Max:66 Pulse: 88 Pulse Range: Pulse Av.4 Min: 70 Max: 90 Respirations: 20 Resp Range: Resp Av Min: 16 Max: 20 SpO2: 95 % on supplemental O2 SpO2 range: SpO2 Av.1 % Min: 94 % Max: 98 % Weight Wt Readings from Last 3 Encounters: 02/24/25 93.5 kg (206 lb 1.6 oz) 12/16/24 90.3 kg (199 lb) 09/17/24 90.3 kg (199 lb) Body mass index is 30.42 kg/m . 24HR INTAKE/OUTPUT: Intake/Output Summary (Last 24 hours) at 02/24/2025 1602 Last data filed at 02/24/2025 1345 Gross per 24 hour Intake 1025 ml Output 2400 ml Net -1375 ml Date 02/24/25 0000 - 02/24/25 2359 Shift 3096-6951 9125-2543 6151-4278 24 Hour Total INTAKE P.O. 779 130 8939 Shift Total(mL/kg) 425(4.7) 600(6.6) 1025(11.3) OUTPUT Urine(mL/kg/hr) 500(0.7) 1100(1.5) 1600 Shift Total(mL/kg) 500(5.5) 1100(12.1) 1600(17.6) Weight (kg) 90.9 90.9 90.9 90.9 PHYSICAL EXAM: GEN: Awake and following commands: [] No [x] Yes MENTAL STATUS: alert and oriented x3. DISTRESS: Acute respiratory distress: [x] No [] Yes EYES: EOMI, pupils equal NECK: Supple. No lymphadenopathy. No carotid bruit CVS: regular rate and rhythm, no audible murmur PULM: diminished but clear, no acute respiratory distress ABD: Bowels sounds normal. Abdomen is soft. No distention. no tenderness to palpation. EXT: no edema bilaterally . No calf tenderness. NEURO: Moves all extremities. Motor and sensory are grossly intact SKIN: No rashes. No skin lesions. DATA: Complete Blood Count: Latest Reference Range & Units 02/10/25 16:18 02/11/25 05:08 02/12/25 05:05 02/13/25 06:12 02/14/25 06:35 02/15/25 06:00 02/19/25 05:45 WBC 3.5 - 11.3 k/uL 7.1 6.4 6.4 6.6 5.9 6.0 7.0 RBC 4.21 - 5.77 m/uL 5.94 (H) 5.17 5.15 5.59 5.46 5.07 4.84 Hemoglobin Quant 13.0 - 17.0 g/dL 14.6 12.8 (L) 12.9 (L) 14.0 13.5 12.7 (L) 12.1 (L) Hematocrit 40.7 - 50.3 % 53.0 (H) 45.7 45.9 49.6 48.3 45.6 43.5 MCV 82.6 - 102.9 fL 89.2 88.4 89.1 88.7 88.5 89.9 89.9 MCH 25.2 - 33.5 pg 24.6 (L) 24.8 (L) 25.0 (L) 25.0 (L) 24.7 (L) 25.0 (L) 25.0 (L) MCHC 28.4 - 34.8 g/dL 27.5 (L) 28.0 (L) 28.1 (L) 28.2 (L) 28.0 (L) 27.9 (L) 27.8 (L) MPV 8.1 - 13.5 fL 9.4 10.1 10.6 10.1 10.2 10.7 10.3 RDW 11.8 - 14.4 % 18.2 (H) 17.6 (H) 18.0 (H) 18.1 (H) 18.7 (H) 18.5 (H) 19.0 (H) Platelet Count 138 - 453 k/uL 162 166 161 144 135 (L) 151 154 Neutrophils % 36 - 65 % 73 (H) 66 (H) 63 61 69 (H) 69 (H) 69 (H) Lymphocyte % 24 - 43 % 18 (L) 24 25 28 21 (L) 22 (L) 19 (L) Monocytes % 3 - 12 % 7 8 8 7 7 6 8 Eosinophils % 1 - 4 % 1 1 2 2 2 2 2 Basophils % 0 - 2 % 0 0 1 1 0 0 1 Neutrophils Absolute 1.50 - 8.10 k/uL 5.18 4.23 4.04 4.02 4.07 4.14 4.83 Lymphocytes Absolute 1.10 - 3.70 k/uL 1.28 1.54 1.60 1.85 1.24 1.32 1.33 Monocytes Absolute 0.10 - 1.20 k/uL 0.50 0.51 0.51 0.46 0.41 0.36 0.56 Eosinophils Absolute 0.00 - 0.44 k/uL 0.07 0.06 0.13 0.13 0.12 0.12 0.14 Basophils Absolute 0.00 - 0.20 k/uL 0.00 0.00 0.06 0.07 0.00 0.00 0.07 Immature Granulocytes % 0 % 1 (H) 1 (H) 1 (H) 1 (H) 1 (H) 1 (H) 1 (H) Morphology HYPOCHROMIA PRESENT HYPOCHROMIA PRESENT HYPOCHROMIA PRESENT HYPOCHROMIA PRESENT Normal Normal Platelet scan shows Normal Platelets POIKILOCYTOSIS PRESENT Immature Granulocytes Absolute 0.00 - 0.30 k/uL 0.07 0.06 0.06 0.07 0.06 0.06 0.07 NRBC Automated 0.0 per 100 WBC 0.0 0.0 0.0 0.0 0.0 0.0 0.0 (H): Data is abnormally high (L): Data is abnormally low Latest Reference Range & Units 02/10/25 16:18 02/10/25 18:53 Troponin, High Sensitivity 0 - 22 ng/L 149 (HH) 131 (HH) (HH): Data is critically high Latest Reference Range & Units 02/10/25 16:18 NT Pro-BNP 0 - 125 pg/mL 147 (H) (H): Data is abnormally high Comprehensive Metabolic Profile: Latest Reference Range & Units 02/10/25 16:18 02/10/25 18:53 02/11/25 05:08 02/12/25 05:05 02/13/25 06:12 02/14/25 06:35 02/15/25 06:00 02/19/25 05:45 Sodium 136 - 145 mmol/L 140 140 141 139 140 141 141 Potassium 3.7 - 5.3 mmol/L 4.6 3.9 4.2 4.4 4.6 4.0 4.1 Chloride 98 - 107 mmol/L 91 (L) 96 (L) 96 (L) 96 (L) 96 (L) 96 (L) 100 CARBON DIOXIDE 20 - 31 mmol/L 41 (HH) 39 (H) 37 (H) 36 (H) 38 (H) 36 (H) 36 (H) BUN,BUNPL 8 - 23 mg/dL 14 14 15 14 16 16 15 Creatinine 0.70 - 1.20 mg/dL 0.5 (L) 0.4 (L) 0.5 (L) 0.5 (L) 0.5 (L) 0.5 (L) 0.5 (L) Bun/Cre 9 - 20 28 (H) 35 (H) 30 (H) 28 (H) 32 (H) 32 (H) 30 (H) Anion Gap 9 - 16 mmol/L 8 (L) 5 (L) 8 (L) 7 (L) 6 (L) 9 5 (L) Est, Glom Filt Rate >60 mL/min/1.73m2 >90 >90 >90 >90 >90 >90 >90 Glucose 74 - 99 mg/dL 182 (H) 107 (H) 121 (H) 117 (H) 109 (H) 122 (H) 121 (H) Calcium 8.6 - 10.4 mg/dL 9.5 8.7 9.0 9.1 9.0 8.7 8.6 Albumin/Globulin Ratio 1.0 - 2.5 1.8 Total Protein 6.6 - 8.7 g/dL 6.7 Troponin, High Sensitivity 0 - 22 ng/L 149 (HH) 131 (HH) NT Pro-BNP 0 - 125 pg/mL 147 (H) Albumin 3.5 - 5.2 g/dL 4.3 Alkaline Phosphatase 40 - 129 U/L 96 ALT 10 - 50 U/L 21 AST 10 - 50 U/L 24 Total Bilirubin 0.00 - 1.20 mg/dL 0.7 (HH): Data is critically high (L): Data is abnormally low (H): Data is abnormally high ABGs: Latest Reference Range & Units 02/19/25 06:39 02/20/25 05:32 pH, Arterial 7.35 - 7.45 7.318 (L) 7.368 pH, Art, Temp Adj 7.350 - 7.450 7.318 (L) 7.368 pCO2, Art, Temp Adj 35.0 - 45.0 77.6 (HH) 64.6 (HH) pCO2, Arterial 35 - 45 mmHg 77.6 (HH) 64.6 (HH) pO2, Art, Temp Adj 80.0 - 100.0 mmHg 69.9 (L) 88.0 pO2, Arterial 80.0 - 100.0 mmHg 69.9 (L) 88.0 HCO3, Arterial 22 - 26 mmol/L 38.9 (H) 36.3 (H) Positive Base Excess, Art 0.0 - 2.0 mmol/L 9.3 (H) 8.4 (H) O2 Sat, Arterial 95 - 98 % 91.8 (L) 96.2 Pt Temp 37.0 37.0 Sample Site Right Radial Artery Right Radial Artery O2 Device/Flow/% Cannula ROOM AIR Text for Respiratory Called to PROVIDER on 11/22/2024 at 06:42 Called to RN on 02/20/2025 at 05:34 (HH): Data is critically high (L): Data is abnormally low (H): Data is abnormally high (H): Data is abnormally high Latest Reference Range & Units 02/17/25 15:08 02/18/25 05:45 pH, Arterial 7.35 - 7.45 7.548 (H) 7.348 (L) pH, Art, Temp Adj 7.350 - 7.450 7.548 (HH) 7.348 (L) pCO2, Art, Temp Adj 35.0 - 45.0 32.1 (L) 72.7 (HH) pCO2, Arterial 35 - 45 mmHg 32.1 (L) 72.7 (HH) pO2, Art, Temp Adj 80.0 - 100.0 mmHg 86.4 93.7 pO2, Arterial 80.0 - 100.0 mmHg 86.4 93.7 HCO3, Arterial 22 - 26 mmol/L 27.3 (H) 39.1 (H) Positive Base Excess, Art 0.0 - 2.0 mmol/L 5.4 (H) 10.1 (H) O2 Sat, Arterial 95 - 98 % 97.6 96.5 Pt Temp 37.0 37.0 Sample Site Left Radial Artery Right Radial Artery O2 Device/Flow/% BIPAP BIPAP Text for Respiratory Called to RN on 02/18/2025 at 05:49 (HH): Data is critically high (H): Data is abnormally high (L): Data is abnormally low Latest Reference Range & Units 02/15/25 06:32 02/16/25 06:15 pH, Arterial 7.35 - 7.45 7.290 (L) 7.304 (L) pH, Art, Temp Adj 7.350 - 7.450 7.290 (LL) 7.304 (L) pCO2, Art, Temp Adj 35.0 - 45.0 85.6 (HH) 81.3 (HH) pCO2, Arterial 35 - 45 mmHg 85.6 (HH) 81.3 (HH) pO2, Art, Temp Adj 80.0 - 100.0 mmHg 66.0 (L) 64.9 (L) pO2, Arterial 80.0 - 100.0 mmHg 66.0 (L) 64.9 (L) HCO3, Arterial 22 - 26 mmol/L 40.2 (H) 39.5 (H) Positive Base Excess, Art 0.0 - 2.0 mmol/L 10.1 (H) 9.4 (H) O2 Sat, Arterial 95 - 98 % 91.2 (L) 89.6 (L) Pt Temp 37.0 37.0 Sample Site Right Brachial Artery Right Radial Artery O2 Device/Flow/% Cannula Cannula Text for Respiratory Called to RN on 02/15/2025 at 06:35 Called to RN on 02/16/2025 at 06:18 (LL): Data is critically low (HH): Data is critically high (L): Data is abnormally low (H): Data is abnormally high Latest Reference Range & Units 02/13/25 10:10 02/14/25 06:05 pH, Arterial 7.35 - 7.45 7.359 7.339 (L) pH, Art, Temp Adj 7.350 - 7.450 7.359 7.339 (L) pCO2, Art, Temp Adj 35.0 - 45.0 71.6 (HH) 74.2 (HH) pCO2, Arterial 35 - 45 mmHg 71.6 (HH) 74.2 (HH) pO2, Art, Temp Adj 80.0 - 100.0 mmHg 63.4 (L) 129.5 (H) pO2, Arterial 80.0 - 100.0 mmHg 63.4 (L) 129.5 (H) HCO3, Arterial 22 - 26 mmol/L 39.5 (H) 39.0 (H) Positive Base Excess, Art 0.0 - 2.0 mmol/L 10.6 (H) 9.8 (H) O2 Sat, Arterial 95 - 98 % 90.5 (L) 98.3 (H) (HH): Data is critically high (L): Data is abnormally low (H): Data is abnormally high Latest Reference Range & Units 02/11/25 09:04 02/11/25 11:59 02/12/25 07:21 pH, Arterial 7.35 - 7.45 7.343 (L) 7.335 (L) pH, Art, Temp Adj 7.350 - 7.450 7.343 (L) 7.335 (L) pCO2, Art, Temp Adj 35.0 - 45.0 64.9 (HH) 65.4 (HH) pCO2, Arterial 35 - 45 mmHg 64.9 (HH) 65.4 (HH) pO2, Art, Temp Adj 80.0 - 100.0 mmHg 73.1 (L) 80.8 pO2, Arterial 80.0 - 100.0 mmHg 73.1 (L) 80.8 HCO3, Arterial 22 - 26 mmol/L 34.5 (H) 34.1 (H) Positive Base Excess, Art 0.0 - 2.0 mmol/L 6.3 (H) 5.8 (H) O2 Sat, Arterial 95 - 98 % 93.4 (L) 94.9 (L) pH, Galo 7.32 - 7.42 7.321 pH, Galo, Temp Adj 7.320 - 7.420 7.321 pCO2, Galo 39 - 55 mm Hg 82.0 (HH) pO2, Galo 30.0 - 50.0 mm Hg 35.3 pO2, Galo, Temp Adj 30.0 - 50.0 mmHg 35.3 Bicarbonate, Venous 24.0 - 30.0 mmol/L 41.4 (H) Positive Base Excess, Galo 0.0 - 2.0 mmol/L 11.3 (H) O2 Saturation Venous 60.0 - 85.0 % 59.9 (L) Pt Temp 37.0 37.0 37.0 Sample Site Right Radial Artery Right Brachial Artery Set Rate 1 1 O2 Device/Flow/% Cannula Cannula HEATED HIGH FLOW Text for Respiratory Called to RN on 02/11/2025 at 09:07 Called to RN on 02/11/2025 at 12:02 Called to RN on 02/12/2025 at 07:24 (HH): Data is critically high (L): Data is abnormally low (H): Data is abnormally high Latest Reference Range & Units 02/10/25 16:26 02/10/25 21:01 02/10/25 23:05 02/11/25 05:20 pH, Arterial 7.35 - 7.45 7.389 pH, Art, Temp Adj 7.350 - 7.450 7.389 pCO2, Art, Temp Adj 35.0 - 45.0 73.5 (HH) pCO2, Arterial 35 - 45 mmHg 73.5 (HH) pO2, Art, Temp Adj 80.0 - 100.0 mmHg 66.6 (L) pO2, Arterial 80.0 - 100.0 mmHg 66.6 (L) HCO3, Arterial 22 - 26 mmol/L 43.4 (H) Positive Base Excess, Art 0.0 - 2.0 mmol/L 14.4 (H) O2 Sat, Arterial 95 - 98 % 92.2 (L) pH, Galo 7.32 - 7.42 7.368 7.408 7.336 pH, Galo, Temp Adj 7.320 - 7.420 7.368 7.408 7.336 pCO2, Galo 39 - 55 mm Hg 72.0 (HH) 62.0 (HH) 76.1 (HH) pO2, Galo 30.0 - 50.0 mm Hg 26.0 (L) 40.2 92.2 (H) pO2, Galo, Temp Adj 30.0 - 50.0 mmHg 26.0 (L) 40.2 92.2 (H) Bicarbonate, Venous 24.0 - 30.0 mmol/L 40.5 (H) 38.2 (H) 39.8 (H) Positive Base Excess, Galo 0.0 - 2.0 mmol/L 11.7 (H) 10.8 (H) 10.4 (H) O2 Saturation Venous 60.0 - 85.0 % 43.3 (L) 74.0 96.2 (H) Pt Temp 37.0 37.0 37.0 37.0 Sample Site Left Brachial Artery O2 Device/Flow/% Cannula BIPAP BIPAP Text for Respiratory Called to PROVIDER on 02/10/2025 at 16:28 Called to PROVIDER on 02/10/2025 at 21:02 Called to PROVIDER on 02/10/2025 at 23:07 Called to RN on 02/11/2025 at 05:22 (HH): Data is critically high (L): Data is abnormally low (H): Data is abnormally high Radiology/Imaging: XR CHEST (2 VW) Final Result No acute cardiopulmonary disease. Stable subsegmental atelectasis on the right. CT CHEST PULMONARY EMBOLISM W CONTRAST Final Result 1. No evidence of pulmonary embolism or acute pulmonary abnormality. 2. Age-indeterminate T6 compression deformity, but likely chronic. 3. Gallbladder stones versus sludge. 4. Lobular liver contour, raising suspicion for cirrhosis or chronic liver disease. XR CHEST PORTABLE Final Result No acute cardiopulmonary process. ASSESSMENT / PLAN: Primary Problem(s): Acute respiratory failure with hypoxia and hypercapnia (HCC) Differential diagnoses: Pneumonia, viral illness, COPD exacerbation, CHF Condition is an acute or chronic illness or injury that poses threat to life or bodily function Condition is stable Treatment plan: Appreciate pulmonology Discussed with Dr. Perkins/Dr Russell/Dr Cheek Recommendations: BiPAP, intubation, palliative care. Trilogy at home-Discussed with DR Russell. Settings: Cancel-Mas Pressure Support-14 cwp, Min PS 8 cwp, Max EPAP 8 cwp, Mi EPAP 4 cwp, TV 400-500 ml, RR 10 with 1L of Oxygen 02/17/2025-Will reach out to Pulm--ABGs worsening despite changes RT has made Changed to BiPAP 09/20 with a backup rate 12. May go up to an IPAP of 14. Clock if this does not work then only other option is tracheostomy, ventilator for palliative care Now qualifies for 2L of oxygen. I did call and spoke with his Barrel Loader, Dr Church at [place] and discussed his case on 02/17/2025. Likely related to MD due to no infectious process 02/24/2025-SS continues to work with Ins. Resubmitted for appeals and awaiting. Respiratory viral panel-negative Monitor labs and replace electrolytes Nocturnal Pulse oximetry completed Imaging: no further imaging studies ordered today Medications: Continue nebs Completed Zpak Continue Zyrtec Medication Monitoring / High Risk Medications: none Chronic diastolic CHF Condition is a chronic stable condition Treatment plan: Monitor labs and replace electrolytes I&O, daily weights Imaging: no further imaging studies ordered today Last echo from 12/16/2024 showed an EF of 55 to 60%, mildly increased wall thickness, grade 1 diastolic dysfunction with normal LAP, moderate to severe aortic stenosis Medications: Continue Entresto Continue Toprol-XL Continue Lasix Nutrition status: Well developed, well nourished with no malnutrition I/O Daily Weight Nutritional Supplements as tolerated Fish Culturist consult initiated MALNUTRITION ASSESSMENT AND PLAN The following was documented by the Dietitian: Malnutrition Assessment Context of Malnutrition: Acute Illness (02/11/25823) Acute Illness - Energy Intake : No decrease in energy intake (02/11/25823) Acute Illness - Weight Loss : No weight loss (02/11/25823) Acute Illness - Body Fat Loss: No body fat loss (02/11/25823) Acute Illness - Muscle Mass Loss: No muscle mass loss (02/11/25823) Acute Illness - Fluid Accumulation : Moderate to Severe (02/11/25823) Acute Illness - Fluid Accumulation Location: Extremities (02/11/25823) Acute Illness - Hatchery Laborer Strength: Not Performed (02/11/25823) Acute Illness - Malnutrition Score: 7 (02/11/25823) Malnutrition Status: No malnutrition (02/11/25823) I agree with the dietitian's malnutrition assessment. Medical Nutrition Therapy: continue current nutrition therapy Hospital Prophylaxis: DVT: Lovenox Stress Ulcer: PPI Disposition: Shared decision making: All test results, treatment options and disposition options were discussed with the patient today Social determinants of health that may impact management: none Code status: Full Code Disposition: Discharge plan is home Unavoidable Day MIPS Advanced Care Planning documentation: [x] I have confirmed that the patient's Advance Care Plan is present, Code Status is documented, or surrogate decision maker is listed in the patient's medical record [If yes , STOP HERE] [] The patient's Advance Care Plan is NOT present because: [] I confirmed today that the patient does not wish or was not able to name a surrogate decision maker or provide and advance care plan. [] Hospice care is currently being provided or has been provided within the calendar year. [] I did NOT confirm today the presence of an Advance Care Plan or surrogate decision maker documented within the patient's medical record. [DOES NOT SATISFY MIPS PERFORMANCE] LORENA Brown CNP , LORENA-PAULA-Abrahan 02/24/2025 4:02 PM FACE TO FACE: Patient qualified for home O2. Discussed with patient the medical necessity of home O2. Patient voiced understanding and agreement. LORENA Brown CNP, PAULA CARRILLO-C 02/24/2025, 4:02 PM This patient has Chronic Respiratory Failure secondary to Muscular Dystrophy, requiring noninvasive ventilation therapy in the home to maintain or optimize an acceptable PCO2 level. If the PCO2 level is not managed, this could cause harm or even . This could also reduce respiratory readmissions. BiPAP has proven to be ineffective in maintaining the patients PCO2 levels, now requiring noninvasive therapy. Cosigned by Fabian Avery MD at 02/25/2025 10:47 AM EDT Associated attestation - Fabian Avery MD - 02/25/2025 10:47 AM EDT Attending Supervising Physician s Attestation Statement I have personally evaluated and examined the patient [id number] in conjunction with the nurse practitioner. I agree with management and disposition of the patient. Examined and Reviewed plan of care with MAIL INSERTER. Directions and discussion about care and plans. Disposition including length of stay was reviewed. Nutritional status, advanced directive and old records reviewed. In addition, Consultations and pharmacy management including drug therapy was reviewed. Therapy goals along with occupational therapy was reviewed & integrated into management including disposition. The patient was seen examined with the nurse practitioner & all direct care was reviewed with the nurse practitioner at the bedside with the patient. Electronically signed by Fbaian Avery MD Occupational Therapy Facility/Department: [facility] Rehabilitation Occupational Therapy Daily Treatment Note Date: 02/24/25 Patient Name: Evgeny Delgado Room: 0328/0328-01 Account: [id number] : 1955 (70 y.o.) Gender: male Past Medical History: has a past medical history of Aortic stenosis, CHF (congestive heart failure) ([facility]), Diabetes mellitus (HCC), FSHD (facioscapulohumeral muscular dystrophy) ([facility]), HFrEF (heart failure with reduced ejection fraction) ([facility]), HLD (hyperlipidemia), HTN (hypertension), and Nonischemic cardiomyopathy ([facility]). Past Surgical History: has a past surgical history that includes Cardiac catheterization (Bilateral). Restrictions Restrictions/Precautions: General Precautions, Fall Risk Required Braces or Orthoses Right Lower Extremity Brace: Ankle Foot Orthotics Left Lower Extremity Brace: Dinorah Foot Orthotics Required Braces or Orthoses?: Yes Subjective Subjective: Pt reclined in chair, agreeable to ADL practice in bathroom and requests ROM to B UEs. Objective Cognition Overall Cognitive Status: WNL Orientation Overall Orientation Status: Within Normal Limits ADL CGA transfer with rollator to bathroom, managing O2 line with min A. Completed tooth-brushing wtih SBA, using sink for stability / balance support. OT Exercises Exercise Treatment: Pt seated in recliner completed BUE ther ex to increase strength needed for fxl tasks. Pt completed AROM to focus on tricep area to support sit-stand, but was unable to engage in resistive T-band (purple) ex. Complete PROM to B shoulders at pt's request. Educated pt on functional hand position for overhead reaching with AROM, PROM and A/AROM. Pt then attempted AROM with hands clasped at midline flexing shoulders to ~90 degrees with A needed for sustained stretch. . Assessment Assessment Activity Tolerance: Patient tolerated treatment well Plan Occupational Therapy Plan Times Per Day: Once a day Days Per Week: 7 Days Current Treatment Recommendations: Strengthening;Balance training;Endurance training;Functional mobility training;Patient/Caregiver education & training;Safety education & training;Self-Care / ADL;Equipment evaluation, education, & procurement;ROM Therapy Time Individual Concurrent Group Co-treatment Time In 1445 Time Out 1513 Minutes 28 Jesenia Medina OT Physical Therapy Facility/Department: [facility] Daily Treatment Note NAME: Evgeny Delgado : 1955 Date of Service: 02/24/2025 Discharge Recommendations: Continue to assess pending progress Patient Diagnosis(es): The primary encounter diagnosis was Acute respiratory failure with hypoxia and hypercapnia (HCC). Diagnoses of Muscular dystrophies (HCC), Chronic diastolic heart failure (HCC), and Chronic respiratory failure with hypoxia and hypercapnia (HCC) were also pertinent to this visit. Assessment Assessment: Transfers: Elidia. Gait 15ftx2 with 4WW, with standing urinal use. Pt completed reclined and seated B LE exer x15 with no concerns. Activity Tolerance: Patient tolerated treatment well Plan Physical Therapy Plan General Plan: 2 times a day 7 days a week Specific Instructions for Next Treatment: 1x per week on weekends and holidays Current Treatment Recommendations: Strengthening;ROM;Balance training;Functional mobility training;Transfer training;Gait training;Stair training;Home exercise program;Safety education & training;Patient/Caregiver education & training;Equipment evaluation, education, & procurement;Positioning;Therapeuti c activities Restrictions Restrictions/Precautions Restrictions/Precautions: General Precautions, Fall Risk Required Braces or Orthoses?: Yes Required Braces or Orthoses Right Lower Extremity Brace: Ankle Foot Orthotics Left Lower Extremity Brace: Dinorah Foot Orthotics Subjective Subjective Subjective: Pt in chair upon arrival, agreeable to therapy at this time Pain: denies Objective Bed Mobility Training Bed Mobility Training: No Balance Sitting: Intact Standing: Impaired Standing - Static: Occasional;Fair Standing - Dynamic: Constant support Transfer Training Transfer Training: Yes Overall Level of Assistance: Modified independent Interventions: Verbal cues Sit to Stand: Modified independent Stand to Sit: Modified independent Gait Training Right Side Weight Bearing: As tolerated Left Side Weight Bearing: As tolerated Gait Gait Training: Yes Left Side Weight Bearing: As tolerated Right Side Weight Bearing: As tolerated Overall Level of Assistance: Stand by assistance;Supervision Distance (ft): 30 Feet Assistive Device: Walker, rollator Interventions: Verbal cues Speed/Diane: Slow Step Length: Left shortened;Right shortened Swing Pattern: Left asymmetrical;Right asymmetrical Gait Abnormalities: Hip hike;Foot drop PT Exercises Exercise Treatment: Reclined and seated B LE therex x 15 in all planes of motion Other Specialty Interventions Other Treatments/Modalities: standing urinal use Safety Devices Type of Devices: All fall risk precautions in place;Call light within reach;Chair alarm in place;Left in chair Goals Short Term Goals Time Frame for Short Term Goals: 20 visits Short Term Goal 1: Patient will tolerate 20-30' ther-ex in order to increase endurance and ease ADLS Short Term Goal 2: Patient will ascend/descend 4 steps with handrail with supervision assistance in order to safely enter/exit the home Short Term Goal 3: Patient will complete bed mobility and transfers independently in order to return to PLOF Short Term Goal 4: Patient will ambulate 200 feet with rollator with supervision assistance in order to return to PLOF Education Patient Education Education Given To: Patient Education Provided: Role of Therapy;Plan of Care Education Method: Verbal Barriers to Learning: None Education Outcome: Verbalized understanding Therapy Time Individual Concurrent Group Co-treatment Time In 1309 Time Out 1334 Minutes 25 Silvia Stearns PTA Cosigned by Lee Andrews PT at 02/24/2025 3:31 PM EDT RESPIRATORY ASSESSMENT PROTOCOL Patient Name: Evgeny Delgado Room#: 0328/0328-01 : 1955 Admitting diagnosis: Acute on chronic respiratory failure with hypoxia and hypercapnia (HCC) [J96.21, J96.22] Medical History: Past Medical History: Diagnosis Date Aortic stenosis CHF (congestive heart failure) ([facility]) Diabetes mellitus (HCC) FSHD (facioscapulohumeral muscular dystrophy) ([facility]) HFrEF (heart failure with reduced ejection fraction) ([facility]) HLD (hyperlipidemia) HTN (hypertension) Nonischemic cardiomyopathy ([facility]) PATIENT ASSESSMENT LABORATORY DATA Hematology: Lab Results Component Value Date/Time WBC 7.0 2025 05:45 AM RBC 4.84 2025 05:45 AM HGB 12.1 2025 05:45 AM HCT 43.5 2025 05:45 AM PLT 154 2025 05:45 AM Chemistry: Lab Results Component Value Date/Time PHART 7.368 02/20/2025 05:32 AM [id number] 64.6 02/20/2025 05:32 AM PO2ART 88.0 02/20/2025 05:32 AM [id number] 96.2 02/20/2025 05:32 AM [id number] 36.3 02/20/2025 05:32 AM PBEA 8.4 02/20/2025 05:32 AM VITALS Pulse: 90 Respirations: 20 BP: 100/64 SpO2: 94 % O2 Device: Nasal cannula Temp: 97.1 F (36.2 C) SKIN COLOR [x] Normal [] Pale [] Dusky [] Cyanotic RESPIRATORY PATTERN [x] Normal [] Dyspnea [] Romel-Byrd [] Kussmaul [] Biots AMBULATORY [] Yes [] No [x] With Assistance Patient Acuity 0 1 2 3 4 Score Level of Consciousness (LOC) [x] Alert & Oriented or Pt normal LOC [] Confused;follows directions [] Confused & uncooper-ative [] Obtunded [] Comatose 0 Respiratory Rate (RR) [x] Reg. rate & pattern. 12 - 20 bpm [] Increased RR. Greater than 20 bpm [] SOB w/ exertion or RR greater than 24 bpm [] Access- ory muscle use at rest. Abn. resp. [] SOB at rest. 0 Bilateral Breath Sounds (BBS) [] Clear [] Diminish-ed bases [x] Diminish-ed t/o, or rales [] Sporadic, scattered wheezes or rhonchi [] Persistentwheezes and, or absent BBS 2 Cough [] Strong, effective, & non-prod. [x] Effective & prod. Less than 25 ml (2 TBSP) over past 24 hrs [] Ineffective & non-prod to less than 25 ML over past 24 hrs [] Ineffective and, or greater than 25 ml sputum prod. past 24 hrs. [] Nonspon- taneous; Requires suctioning 1 Pulmonary History (PULM HX) [] No smoking and no chronic pulmonary history [] Former smoker. Quit over 12 mos. ago [] Current smoker or quit w/ in 12 mos [] Pulm. History and, or 20 pk/yr smoking hx [x] Admitted w/ acute pulm. dx and, or has been admitted w/ pulm. dx 2 or more times over past 12 mos 4 Surgical History this Admit (SURG HX) [x] No surgery [] General surgery [] Lower abdominal [] Thoracic or upper abdominal [] Thoracic w/ pulm. disease 0 Chest X-Ray (CXR)/CT Scan [] Clear or not applicable [] Not available [x] Atelectasis or pleural effusions [] Localized infiltrate or pulm. edema [] Con-solidated Infiltrates, bilateral, or in more than 1 lobe 2 TOTAL ACUITY: 9 CARE PLAN If Acuity Level is 2, 3, or 4 in any of the following: [] BILATERAL BREATH SOUNDS (BBS) [x] PULMONARY HISTORY (PULM HX) [] Respiratory Rate (RR) Goal: Improve respiratory functions in patients with airway disease and decrease WOB [x] AEROSOL PROTOCOL Total Acuity: 14-28 [] Secondary Assessment in 24 hrs Total Acuity: 9-13 [x] Secondary Assessment in 24 hrs Total Acuity: 4-8 [] Secondary Assessment in 24 hrs Total Acuity: 0-3 [] Secondary Assessment in 48 hrs [facility]N AEROSOL THERAPY with [physician-ordered bronchodilator(s)] q 4 & Albuterol PRN q2 hrs. Breath-Actuated Neb if BBS Acuity = 4, and pt. can use MP. Notify physician if condition deteriorates. [facility]N AEROSOL THERAPY with [physician-ordered bronchodilator(s)] QID and Albuterol PRN q4 hrs. Breath-Actuated Neb if BBS Acuity = 4, and pt. can use MP. Notify physician if condition deteriorates. MDI THERAPY with 2 actuations of [physician-ordered bronchodilator(s)] via spacer TID Albuterol and PRN q4 hrs. If unable to utilize MDI: HHN [physician-ordered bronchodilator(s)] TID and Albuterol PRN q4 hrs. Notify physician if condition deteriorates. MDI THERAPY with [physician-ordered bronchodilator(s)] via spacer TID PRN. If unable to utilize MDI: HHN [physician-ordered bronchodilator(s)] TID PRN. Notify physician if condition deteriorates. If Acuity Level is 2, 3, or 4 in any of the following: [] COUGH [] SURGICAL HISTORY (SURG HX) [x] CHEST XRAY (CXR) Goal: Improvement in sputum mobilization in patients with ineffective airway clearance. Reverse atelectasis. [x] Bronchopulmonary Hygiene Protocol Total Acuity: 14-28 [] Secondary Assessment in 24 hrs Total Acuity: 9-13 [x] Secondary Assessment in 24 hrs Total Acuity: 4-8 [] Secondary Assessment in 24 hrs Total Acuity: 0-3 [] Secondary Assessment in 48 hrs METANEB QID with [physician-ordered bronchodilator(s)] if CXR Acuity = 4; otherwise: PD&P, Oscillatory Therapy, or Vest QID & PRN AND PEP QID & PRN NT Sxn PRN for ineffective cough METANEB QID with [physician-ordered bronchodilator(s)] if CXR Acuity = 4; otherwise: PD&P, Oscillatory Therapy or Vest QID & PRN AND PEP QID & PRN NT Sxn PRN for ineffective cough PD&P, Oscillatory Therapy, or Vest TID & PRN AND PEP TID & PRN Instruct patient to self-perform IS q1hr WA If Acuity Level is 2 or above in the following: [] PULMONARY HISTORY (PULM HX) Goal: Assist patient in quitting smoking to slow or stop the progression of lung disease. [] Smoking Cessation Protocol SMOKING CESSATION EDUCATION provided according to policy RT_201: (fabian with an X) ____Yes ____ No ____ NA Smoking Cessation Booklet given: ____Yes ____No ____Patient Refused Physical Therapy Facility/Department: [facility] Daily Treatment Note NAME: Evgeny Delgado : 1955 Date of Service: 02/24/2025 Discharge Recommendations: Continue to assess pending progress Patient Diagnosis(es): The primary encounter diagnosis was Acute respiratory failure with hypoxia and hypercapnia (HCC). Diagnoses of Muscular dystrophies (HCC), Chronic diastolic heart failure (HCC), and Chronic respiratory failure with hypoxia and hypercapnia (HCC) were also pertinent to this visit. Assessment Assessment: Transfers: Mod I with cues for hand placement to increase safety. Pt able to ambulate 150 ft with O2, gait belt, B brace/shoe donned, SUP/Elidia with standing rest break at 75 ft d/t fatigue. Pt completed reclined B LE exer x15 with no concerns. Activity Tolerance: Patient tolerated treatment well Plan Physical Therapy Plan General Plan: 2 times a day 7 days a week Specific Instructions for Next Treatment: 1x per week on weekends and holidays Restrictions Restrictions/Precautions Restrictions/Precautions: General Precautions, Fall Risk Required Braces or Orthoses?: Yes Required Braces or Orthoses Right Lower Extremity Brace: Ankle Foot Orthotics Left Lower Extremity Brace: Dinorah Foot Orthotics Subjective Subjective Subjective: Pt in chair upon arrival, agreeable to therapy at this time Pain: denies Objective Bed Mobility Training Bed Mobility Training: No Balance Sitting: Intact Standing: Impaired Standing - Static: Occasional;Fair Standing - Dynamic: Constant support Transfer Training Transfer Training: Yes Overall Level of Assistance: Modified independent Interventions: Verbal cues Sit to Stand: Modified independent Stand to Sit: Modified independent Gait Training Right Side Weight Bearing: As tolerated Left Side Weight Bearing: As tolerated Gait Gait Training: Yes Left Side Weight Bearing: As tolerated Right Side Weight Bearing: As tolerated Overall Level of Assistance: Modified independent Distance (ft): 150 Feet Assistive Device: Walker, rollator;Gait belt;Other (comment) (B shoe and AFO braces) Interventions: Verbal cues Speed/Diane: Slow Step Length: Left shortened;Right shortened Swing Pattern: Left asymmetrical;Right asymmetrical Gait Abnormalities: Hip hike;Foot drop PT Exercises Exercise Treatment: Reclined B LE therex x 15 in all planes of motion Safety Devices Type of Devices: All fall risk precautions in place;Call light within reach;Chair alarm in place;Left in chair;Gait belt Goals Short Term Goals Time Frame for Short Term Goals: 20 visits Short Term Goal 1: Patient will tolerate 20-30' ther-ex in order to increase endurance and ease ADLS Short Term Goal 2: Patient will ascend/descend 4 steps with handrail with supervision assistance in order to safely enter/exit the home Short Term Goal 3: Patient will complete bed mobility and transfers independently in order to return to [facility] Short Term Goal 4: Patient will ambulate 200 feet with rollator with supervision assistance in order to return to PLOF Education Patient Education Education Given To: Patient Education Provided: Role of Therapy;Plan of Care Education Method: Verbal Barriers to Learning: None Education Outcome: Verbalized understanding Therapy Time Individual Concurrent Group Co-treatment Time In 939 Time Out 1004 Minutes 24 Timed Code Treatment Minutes: 24 Minutes Isabel Guallpa PTA Cosigned by Lee Andrews PT at 02/24/2025 10:38 AM EDT Wing Commander to bedside to complete morning assessment. Upon entry to room, pt sitting up chair, respirations even and labored while on 2L of O2 via nasal cannula. Vitals obtained and assessment completed, see flow sheet for details. Pt denies needs from securities underwriter at this time. Call light in reach. Chair alarm active. Care ongoing. Occupational Therapy Facility/Department: [facility] Daily Treatment Note NAME: Evgeny Delgado : 1955 Date of Service: 02/23/2025 Discharge Recommendations: Continue to assess pending progress Patient Diagnosis(es): The primary encounter diagnosis was Acute respiratory failure with hypoxia and hypercapnia (HCC). Diagnoses of Muscular dystrophies (HCC), Chronic diastolic heart failure (HCC), and Chronic respiratory failure with hypoxia and hypercapnia (HCC) were also pertinent to this visit. Assessment Activity Tolerance: Patient tolerated treatment well Discharge Recommendations: Continue to assess pending progress Plan Occupational Therapy Plan Times Per Day: Once a day Days Per Week: 7 Days Current Treatment Recommendations: Strengthening;Balance training;Endurance training;Functional mobility training;Patient/Caregiver education & training;Safety education & training;Self-Care / ADL;Equipment evaluation, education, & procurement;ROM Restrictions Subjective Subjective Subjective: Pt reclinerd in chair, declined ADls but accepting of Therex Orientation Overall Orientation Status: Within Functional Limits Pain: denies Cognition Overall Cognitive Status: WFL Objective Vitals Bed Mobility Training Bed Mobility Training: No Transfer Training Transfer Training: Yes Overall Level of Assistance: Modified independent Interventions: Verbal cues Sit to Stand: Modified independent Stand to Sit: Modified independent Toilet Transfer: Modified independent Gait Gait Training: Yes Overall Level of Assistance: Modified independent Distance (ft): 50 Feet Assistive Device: Walker, rollator;Gait belt Interventions: Verbal cues Step Length: Left shortened;Right shortened Swing Pattern: Left asymmetrical;Right asymmetrical Gait Abnormalities: Hip hike;Foot drop OT Exercises Exercise Treatment: Pt seated in recliner completed BUE ther ex to increase strength needed for fxl tasks. Pt completed 1# free weight [id number] x all planes. RBs as needed due to fatigue. Safety Devices Type of Devices: All fall risk precautions in place;Call light within reach;Chair alarm in place;Left in chair Patient Education Education Given To: Patient Education Provided: Role of Therapy;Plan of Care;Home Exercise Program Education Method: Demonstration;Verbal Education Outcome: Demonstrated understanding;Verbalized understanding Goals Short Term Goals Time Frame for Short Term Goals: 21 visits Short Term Goal 1: Patient to be educated on d/c folder, AE/DME and home safety to ensure safe and indep return home. Short Term Goal 2: Patient to safely complete ADL routine c mod I c use of AE/DME as needed to ensure safe and independnet return home. Short Term Goal 3: Patient to engage in 15 minutes of ther ex/ther act c no more than 2 RB to improve strength and activity tolerance for ADL. AM-PAC - ADL Therapy Time Individual Concurrent Group Co-treatment Time In 934 Time Out 1000 Minutes BRANDY Frost Cosigned by Fauzia Mejia OTR/L at 02/25/2025 12:46 PM EDT Physical Therapy Facility/Department: [facility] Daily Treatment Note NAME: Evgeny Delgado : 1955 Date of Service: 02/23/2025 Discharge Recommendations: Continue to assess pending progress Patient Diagnosis(es): The primary encounter diagnosis was Acute respiratory failure with hypoxia and hypercapnia (HCC). Diagnoses of Muscular dystrophies (HCC), Chronic diastolic heart failure (HCC), and Chronic respiratory failure with hypoxia and hypercapnia (HCC) were also pertinent to this visit. Assessment Assessment: Transfers:Mod I. Pt ambulated 25ftx2 with 4WW and SUP/Elidia for safety. No LOB or unsteadiness noted. Pt completed seated and reclined B LE therex x 20 in all planes of motion. Standing urinal use at sink side. Activity Tolerance: Patient tolerated treatment well Plan Physical Therapy Plan General Plan: 2 times a day 7 days a week Specific Instructions for Next Treatment: 1x per week on weekends and holidays Current Treatment Recommendations: Strengthening;ROM;Balance training;Functional mobility training;Transfer training;Gait training;Stair training;Home exercise program;Safety education & training;Patient/Caregiver education & training;Equipment evaluation, education, & procurement;Positioning;Therapeuti c activities Restrictions Restrictions/Precautions Restrictions/Precautions: General Precautions, Fall Risk Required Braces or Orthoses?: Yes Required Braces or Orthoses Right Lower Extremity Brace: Ankle Foot Orthotics Left Lower Extremity Brace: Dinorah Foot Orthotics Subjective Subjective Subjective: Pt in chair upon arrival, agreeable to therapy at this time Pain: denies Objective Bed Mobility Training Bed Mobility Training: No Transfer Training Transfer Training: Yes Overall Level of Assistance: Modified independent Interventions: Verbal cues Sit to Stand: Modified independent Stand to Sit: Modified independent Toilet Transfer: Modified independent Gait Gait Training: Yes Overall Level of Assistance: Modified independent Distance (ft): 50 Feet Assistive Device: Walker, rollator;Gait belt Interventions: Verbal cues Step Length: Left shortened;Right shortened Swing Pattern: Left asymmetrical;Right asymmetrical Gait Abnormalities: Hip hike;Foot drop PT Exercises Exercise Treatment: seated and reclined B LE therex x 20 in all planes of motion Safety Devices Type of Devices: All fall risk precautions in place;Call light within reach;Chair alarm in place;Left in chair Goals Short Term Goals Time Frame for Short Term Goals: 20 visits Short Term Goal 1: Patient will tolerate 20-30' ther-ex in order to increase endurance and ease ADLS Short Term Goal 2: Patient will ascend/descend 4 steps with handrail with supervision assistance in order to safely enter/exit the home Short Term Goal 3: Patient will complete bed mobility and transfers independently in order to return to PLOF Short Term Goal 4: Patient will ambulate 200 feet with rollator with supervision assistance in order to return to PLOF Education Patient Education Education Given To: Patient Education Provided: Role of Therapy;Plan of Care;Home Exercise Program Education Method: Verbal Barriers to Learning: None Education Outcome: Verbalized understanding;Demonstrated understanding Therapy Time Individual Concurrent Group Co-treatment Time In 0840 Time Out 0909 Minutes 29 Gisell Kirk PTA Cosigned by Myrtle Jalloh PT at 02/24/2025 1:48 PM EDT Progress Note SUBJECTIVE: FU related to ambulating well. Denies shortness of breath OBJECTIVE: Vitals: TEMPERATURE: Current - Temp: 97.3 F (36.3 C); Max - Temp Av.8 F (36.6 C) Min: 97.3 F (36.3 C) Max: 98.6 F (37 C) RESPIRATIONS RANGE: Resp Av.4 Min: 18 Max: 20 PULSE RANGE: Pulse Av Min: 72 Max: 77 BLOOD PRESSURE RANGE: Systolic (24hrs), Av , Min:93 , Max:117 ; Diastolic (24hrs), Av, Min:58, Max:76 PULSE OXIMETRY RANGE: SpO2 Av.7 % Min: 93 % Max: 97 % 24HR INTAKE/OUTPUT: Intake/Output Summary (Last 24 hours) at 02/23/2025 0815 Last data filed at 02/23/2025 0509 Gross per 24 hour Intake 600 ml Output 1900 ml Net -1300 ml Exam: General: alert HEENT: Supple neck & negative Heart: Regular Lungs: clear to auscultation bilaterally & no retractions Abdomen: Normal & soft, No tenderness and BS normal Extremities: Right leg edema only Neuro: NonFocal Diagnostic Data: Lab Results Component Value Date WBC 7.0 2025 HGB 12.1 (L) 2025 PLT 154 2025 Lab Results Component Value Date BUN 15 2025 CREATININE 0.5 (L) 2025 NA 141 2025 K 4.1 2025 CALCIUM 8.6 2025 CL 100 2025 CO2 36 (H) 2025 LABGLOM >90 2025 Lab Results Component Value Date WBCUA None 04/18/2023 RBCUA 0 TO 2 04/18/2023 LEUKOCYTESUR NEGATIVE 04/18/2023 GLUCOSEU NEGATIVE 04/18/2023 KETUA NEGATIVE 04/18/2023 PROTEINU NEGATIVE 04/18/2023 HGBUR NEGATIVE 04/18/2023 CASTUA 04/18/2023 0 TO 2 HYALINE Reference range defined for non-centrifuged specimen. Lab Results Component Value Date CKTOTAL 69 04/06/2023 PROBNP 147 (H) 02/10/2025 CT CHEST PULMONARY EMBOLISM W CONTRAST Result Date: 02/13/2025 EXAMINATION: CTA OF THE CHEST 02/10/2025 5:37 pm TECHNIQUE: CTA of the chest was performed after the administration of intravenous contrast. Multiplanar reformatted images are provided for review. MIP images are provided for review. Automated exposure control, iterative reconstruction, and/or weight based adjustment of the mA/kV was utilized to reduce the radiation dose to as low as reasonably achievable. COMPARISON: None. HISTORY: ORDERING SYSTEM PROVIDED HISTORY: dyspnea, PE TECHNOLOGIST PROVIDED HISTORY: dyspnea, PE Decision Support Exception - unselect if not a suspected or confirmed emergency medical condition->Emergency Medical Condition (MA) FINDINGS: Pulmonary Arteries: Pulmonary arteries are adequately opacified for evaluation. No evidence of intraluminal filling defect to suggest pulmonary embolism. Main pulmonary artery is normal in caliber. Mediastinum: The heart size within normal limits. Coronary arterial calcifications. The thoracic aorta is normal caliber with mild atherosclerosis. The esophagus is unremarkable. No pathologically enlarged adenopathy. Lungs/pleura: Elevation of the right hemidiaphragm. Mild right basilar atelectasis versus scarring. No other focal consolidation, pleural effusion or pneumothorax. The central airways are patent. Upper Abdomen: High-density material within the gallbladder. Lobular liver contour. Small hiatal hernia. Soft Tissues/Bones: Age-indeterminate T6 compression deformity but likely chronic. No other acute bone or soft tissue abnormality. 1. No evidence of pulmonary embolism or acute pulmonary abnormality. 2. Age-indeterminate T6 compression deformity, but likely chronic. 3. Gallbladder stones versus sludge. 4. Lobular liver contour, raising suspicion for cirrhosis or chronic liver disease. XR CHEST PORTABLE Result Date: 02/10/2025 EXAMINATION: ONE XRAY VIEW OF THE CHEST 02/10/2025 4:29 pm COMPARISON: None. HISTORY: ORDERING SYSTEM PROVIDED HISTORY: dyspnea TECHNOLOGIST PROVIDED HISTORY: dyspnea FINDINGS: Lines and tubes: None The lungs are clear. Heart size is normal. No acute cardiopulmonary process. ASSESSMENT: Principal Problem: Acute respiratory failure with hypoxia and hypercapnia ([facility]) Active Problems: Nonrheumatic aortic valve stenosis Muscular dystrophies ([facility]) Type 2 diabetes mellitus, without long-term current use of insulin ([facility]) Chronic diastolic heart failure ([facility]) Resolved Problems: * No resolved hospital problems. * Patient Active Problem List Diagnosis Date Noted Dyspnea 04/10/2023 Nonrheumatic aortic valve stenosis 04/10/2023 Acute on chronic respiratory failure with hypoxia and hypercapnia ([facility]) 02/10/2025 Chronic diastolic heart failure ([facility]) 05/16/2023 Chronic respiratory failure ([facility]) 04/26/2023 Type 2 diabetes mellitus, without long-term current use of insulin ([facility]) 04/20/2023 Dysphagia 04/19/2023 Acute respiratory failure with hypoxia and hypercapnia ([facility]) 04/11/2023 HFrEF (heart failure with reduced ejection fraction) ([facility]) 04/11/2023 Closed wedge compression fracture of T7 vertebra ([facility]) 04/11/2023 Muscular dystrophies ([facility]) 04/11/2023 NSTEMI (non-ST elevated myocardial infarction) (HCC) 04/05/2023 PLAN: Continue BiPAP at night. Working with insurance. Nebs and respiratory treatments during the day Therapy Critical Care Time: 0 MIPS Advanced Care Planning documentation: [x] I have confirmed that the patient's Advance Care Plan is present, Code Status is documented, or surrogate decision maker is listed in the patient's medical record [If yes , STOP HERE] [] The patient's Advance Care Plan is NOT present because: [] I confirmed today that the patient does not wish or was not able to name a surrogate decision maker or provide and advance care plan. [] Hospice care is currently being provided or has been provided within the calendar year. [] I did NOT confirm today the presence of an Advance Care Plan or surrogate decision maker documented within the patient's medical record. [DOES NOT SATISFY MIPS PERFORMANCE] Fabian Avery MD , M.D. Patient awake, call light within reach, whiteboard updated, assessment and vitals initiated. Vitals and assessment completed at this time, see flowsheet for more details. Pt resting comfortably awake in chair with at bedside. Pt A&Ox4, on 2LNC at this time. Pt denies any SOB, denies any pain. All needs met at this time, call light within reach. Care ongoing. Occupational Therapy Facility/Department: [facility] Daily Treatment Note NAME: Evgeny Delgado : 1955 Date of Service: 02/22/2025 Discharge Recommendations: Continue to assess pending progress Patient Diagnosis(es): The primary encounter diagnosis was Acute respiratory failure with hypoxia and hypercapnia (HCC). Diagnoses of Muscular dystrophies (HCC), Chronic diastolic heart failure (HCC), and Chronic respiratory failure with hypoxia and hypercapnia (HCC) were also pertinent to this visit. Assessment Activity Tolerance: Patient tolerated treatment well Discharge Recommendations: Continue to assess pending progress Plan Occupational Therapy Plan Times Per Day: Once a day Days Per Week: 7 Days Current Treatment Recommendations: Strengthening;Balance training;Endurance training;Functional mobility training;Patient/Caregiver education & training;Safety education & training;Self-Care / ADL;Equipment evaluation, education, & procurement;ROM Restrictions General, fall risk Subjective Subjective Subjective: Pt asleep in chair, agreed to therex before breakfast came. Pain: denied Orientation Overall Orientation Status: Within Functional Limits Pain: denies Objective Vitals OT Exercises Exercise Treatment: Pt completed BUE ther ex to increase strength needed for fxl tasks. Pt completed red digiflex x20, yellow flex bar bends and twists x20, and 1# free weight x20 x all planes. Limited RUBEN shoulder ROM. Pt req RBs as needed secondary to fatigue. Safety Devices Type of Devices: All fall risk precautions in place;Call light within reach;Chair alarm in place;Left in chair Patient Education Education Given To: Patient Education Provided: Role of Therapy;Plan of Care;Home Exercise Program Education Method: Demonstration;Verbal Barriers to Learning: None Education Outcome: Demonstrated understanding;Verbalized understanding Goals Short Term Goals Time Frame for Short Term Goals: 21 visits Short Term Goal 1: Patient to be educated on d/c folder, AE/DME and home safety to ensure safe and indep return home. Short Term Goal 2: Patient to safely complete ADL routine c mod I c use of AE/DME as needed to ensure safe and independnet return home. Short Term Goal 3: Patient to engage in 15 minutes of ther ex/ther act c no more than 2 RB to improve strength and activity tolerance for ADL. AM-PAC - ADL Therapy Time Individual Concurrent Group Co-treatment Time In 0738 Time Out 0802 Minutes 24 BRANDY Alvarado Cosigned by Fauzia Mejia OTR/Anahi at 02/25/2025 12:46 PM EDT Physical Therapy Facility/Department: [facility] Daily Treatment Note NAME: Evgeny MCKEON: 1955 Date of Service: 02/22/2025 Discharge Recommendations: Continue to assess pending progress Patient Diagnosis(es): The primary encounter diagnosis was Acute respiratory failure with hypoxia and hypercapnia (HCC). Diagnoses of Muscular dystrophies (HCC), Chronic diastolic heart failure (HCC), and Chronic respiratory failure with hypoxia and hypercapnia (HCC) were also pertinent to this visit. Assessment Assessment: Transfers:Mod I. Pt ambulated 25ftx2 with 4WW and SUP/Elidia for safety. No LOB or unsteadiness noted. Pt completed reclined seated B LE therex x20 in all planes of motion. Activity Tolerance: Patient tolerated treatment well Plan Physical Therapy Plan General Plan: 2 times a day 7 days a week Specific Instructions for Next Treatment: 1x per week on weekends and holidays Current Treatment Recommendations: Strengthening;ROM;Balance training;Functional mobility training;Transfer training;Gait training;Stair training;Home exercise program;Safety education & training;Patient/Caregiver education & training;Equipment evaluation, education, & procurement;Positioning;Therapeuti c activities Restrictions Restrictions/Precautions Restrictions/Precautions: General Precautions, Fall Risk Required Braces or Orthoses?: Yes Required Braces or Orthoses Right Lower Extremity Brace: Ankle Foot Orthotics Left Lower Extremity Brace: Dinorah Foot Orthotics Subjective Subjective Subjective: Pt in chair upon arrival, agreeable to therapy at this time Pain: denies Objective Bed Mobility Training Bed Mobility Training: No Transfer Training Transfer Training: Yes Overall Level of Assistance: Modified independent Interventions: Verbal cues Sit to Stand: Modified independent Stand to Sit: Modified independent Gait Gait Training: Yes Overall Level of Assistance: Modified independent Distance (ft): 50 Feet Assistive Device: Walker, rollator;Gait belt Interventions: Verbal cues Speed/Diane: Slow Step Length: Left shortened;Right shortened Swing Pattern: Left asymmetrical;Right asymmetrical Gait Abnormalities: Hip hike;Foot drop PT Exercises Exercise Treatment: reclined seated B LE therex x20 in all planes of motion Safety Devices Type of Devices: Call light within reach;Left in chair;All fall risk precautions in place Goals Short Term Goals Time Frame for Short Term Goals: 20 visits Short Term Goal 1: Patient will tolerate 20-30' ther-ex in order to increase endurance and ease ADLS Short Term Goal 2: Patient will ascend/descend 4 steps with handrail with supervision assistance in order to safely enter/exit the home Short Term Goal 3: Patient will complete bed mobility and transfers independently in order to return to PLOF Short Term Goal 4: Patient will ambulate 200 feet with rollator with supervision assistance in order to return to PLOF Education Patient Education Education Given To: Patient Education Provided: Role of Therapy;Plan of Care;Home Exercise Program Education Method: Verbal Barriers to Learning: None Education Outcome: Verbalized understanding;Demonstrated understanding Therapy Time Individual Concurrent Group Co-treatment Time In 0710 Time Out 0733 Minutes 23 Gisell Kirk PTA Cosigned by Margarita Kramer PT at 02/22/2025 7:54 AM EDT Patient awake, in chair, call light within reach, whiteboard updated, assessment and vitals initiated. Progress Note SUBJECTIVE: FU related to ambulating well. Denies shortness of breath OBJECTIVE: Vitals: TEMPERATURE: Current - Temp: 97.6 F (36.4 C); Max - Temp Av.7 F (36.5 C) Min: 97.6 F (36.4 C) Max: 97.8 F (36.6 C) RESPIRATIONS RANGE: Resp Av Min: 18 Max: 20 PULSE RANGE: Pulse Av Min: 75 Max: 81 BLOOD PRESSURE RANGE: Systolic (24hrs), Av , Min:94 , Max:105 ; Diastolic (24hrs), Av, Min:60, Max:65 PULSE OXIMETRY RANGE: SpO2 Av % Min: 95 % Max: 98 % 24HR INTAKE/OUTPUT: Intake/Output Summary (Last 24 hours) at 02/22/2025 0612 Last data filed at 02/22/2025 0524 Gross per 24 hour Intake 940 ml Output 2400 ml Net -1460 ml Exam: General: alert HEENT: Supple neck & negative Heart: Regular Lungs: clear to auscultation bilaterally & no retractions Abdomen: Normal & soft, No tenderness and BS normal Extremities: No edema Neuro: NonFocal Diagnostic Data: Lab Results Component Value Date WBC 7.0 2025 HGB 12.1 (L) 2025 PLT 154 2025 Lab Results Component Value Date BUN 15 2025 CREATININE 0.5 (L) 2025 NA 141 2025 K 4.1 2025 CALCIUM 8.6 2025 CL 100 2025 CO2 36 (H) 2025 LABGLOM >90 2025 Lab Results Component Value Date WBCUA None 04/18/2023 RBCUA 0 TO 2 04/18/2023 LEUKOCYTESUR NEGATIVE 04/18/2023 GLUCOSEU NEGATIVE 04/18/2023 KETUA NEGATIVE 04/18/2023 PROTEINU NEGATIVE 04/18/2023 HGBUR NEGATIVE 04/18/2023 CASTUA 04/18/2023 0 TO 2 HYALINE Reference range defined for non-centrifuged specimen. Lab Results Component Value Date CKTOTAL 69 04/06/2023 PROBNP 147 (H) 02/10/2025 CT CHEST PULMONARY EMBOLISM W CONTRAST Result Date: 02/13/2025 EXAMINATION: CTA OF THE CHEST 02/10/2025 5:37 pm TECHNIQUE: CTA of the chest was performed after the administration of intravenous contrast. Multiplanar reformatted images are provided for review. MIP images are provided for review. Automated exposure control, iterative reconstruction, and/or weight based adjustment of the mA/kV was utilized to reduce the radiation dose to as low as reasonably achievable. COMPARISON: None. HISTORY: ORDERING SYSTEM PROVIDED HISTORY: dyspnea, PE TECHNOLOGIST PROVIDED HISTORY: dyspnea, PE Decision Support Exception - unselect if not a suspected or confirmed emergency medical condition->Emergency Medical Condition (MA) FINDINGS: Pulmonary Arteries: Pulmonary arteries are adequately opacified for evaluation. No evidence of intraluminal filling defect to suggest pulmonary embolism. Main pulmonary artery is normal in caliber. Mediastinum: The heart size within normal limits. Coronary arterial calcifications. The thoracic aorta is normal caliber with mild atherosclerosis. The esophagus is unremarkable. No pathologically enlarged adenopathy. Lungs/pleura: Elevation of the right hemidiaphragm. Mild right basilar atelectasis versus scarring. No other focal consolidation, pleural effusion or pneumothorax. The central airways are patent. Upper Abdomen: High-density material within the gallbladder. Lobular liver contour. Small hiatal hernia. Soft Tissues/Bones: Age-indeterminate T6 compression deformity but likely chronic. No other acute bone or soft tissue abnormality. 1. No evidence of pulmonary embolism or acute pulmonary abnormality. 2. Age-indeterminate T6 compression deformity, but likely chronic. 3. Gallbladder stones versus sludge. 4. Lobular liver contour, raising suspicion for cirrhosis or chronic liver disease. XR CHEST PORTABLE Result Date: 02/10/2025 EXAMINATION: ONE XRAY VIEW OF THE CHEST 02/10/2025 4:29 pm COMPARISON: None. HISTORY: ORDERING SYSTEM PROVIDED HISTORY: dyspnea TECHNOLOGIST PROVIDED HISTORY: dyspnea FINDINGS: Lines and tubes: None The lungs are clear. Heart size is normal. No acute cardiopulmonary process. ASSESSMENT: Principal Problem: Acute respiratory failure with hypoxia and hypercapnia (HCC) Active Problems: Nonrheumatic aortic valve stenosis Muscular dystrophies (HCC) Type 2 diabetes mellitus, without long-term current use of insulin (HCC) Chronic diastolic heart failure (HCC) Resolved Problems: * No resolved hospital problems. * Patient Active Problem List Diagnosis Date Noted Dyspnea 04/10/2023 Nonrheumatic aortic valve stenosis 04/10/2023 Acute on chronic respiratory failure with hypoxia and hypercapnia (HCC) 02/10/2025 Chronic diastolic heart failure (HCC) 05/16/2023 Chronic respiratory failure (HCC) 04/26/2023 Type 2 diabetes mellitus, without long-term current use of insulin (HCC) 04/20/2023 Dysphagia 04/19/2023 Acute respiratory failure with hypoxia and hypercapnia ([facility]) 04/11/2023 HFrEF (heart failure with reduced ejection fraction) ([facility]) 04/11/2023 Closed wedge compression fracture of T7 vertebra ([facility]) 04/11/2023 Muscular dystrophies ([facility]) 04/11/2023 NSTEMI (non-ST elevated myocardial infarction) ([facility]) 04/05/2023 PLAN: Continue BiPAP at night. Working with insurance. Nebs and respiratory treatments during the day Therapy Critical Care Time: 0 MIPS Advanced Care Planning documentation: [x] I have confirmed that the patient's Advance Care Plan is present, Code Status is documented, or surrogate decision maker is listed in the patient's medical record [If yes , STOP HERE] [] The patient's Advance Care Plan is NOT present because: [] I confirmed today that the patient does not wish or was not able to name a surrogate decision maker or provide and advance care plan. [] Hospice care is currently being provided or has been provided within the calendar year. [] I did NOT confirm today the presence of an Advance Care Plan or surrogate decision maker documented within the patient's medical record. [DOES NOT SATISFY MIPS PERFORMANCE] Fabian Avery MD , M.D. Vitals and assessment completed at this time, see flowsheet for more details. Pt resting comfortably in chair awake with in room at this time. Pt denies any SOB, remains on 2LNC. Pt A&Ox4. All needs met at this time, call light within reach. Care ongoing. Spiritual Services Interventions [id number] 02/21/2025 Jace Delgado 70 y.o. year old male Encounter Summary Encounter Overview/Reason: (P) Follow-up Service Provided For: (P) Patient Referral/Consult From: (P) Jeanna Last Encounter : (P) 02/21/25 Complexity of Encounter: (P) Moderate Begin Time: (P) 1500 End Time : (P) 1515 Total Time Calculated: (P) 15 min Spiritual/Emotional needs Type: (P) Spiritual Support Assessment/Intervention/Outcome Assessment: (P) Calm Intervention: (P) Discussed belief system/latter-day practices/logan, Discussed illness injury and it s impact Outcome: (P) Encouraged, Engaged in conversation Physical Therapy Facility/Department: [facility] Daily Treatment Note NAME: Evgeny Delgado : 1955 Date of Service: 02/21/2025 Discharge Recommendations: Continue to assess pending progress Patient Diagnosis(es): The primary encounter diagnosis was Acute respiratory failure with hypoxia and hypercapnia (HCC). Diagnoses of Muscular dystrophies (HCC), Chronic diastolic heart failure (HCC), and Chronic respiratory failure with hypoxia and hypercapnia (HCC) were also pertinent to this visit. Assessment Assessment: Transfers:Mod I. Gait with 4WW, SUP/Mod I 80ftx1 with no noted LOB.Seated exercises B LE x20. Standing sink exercises B LE x10. Activity Tolerance: Patient tolerated treatment well Plan Physical Therapy Plan General Plan: 2 times a day 7 days a week Specific Instructions for Next Treatment: 1x per week on weekends and holidays Current Treatment Recommendations: Strengthening;ROM;Balance training;Functional mobility training;Transfer training;Gait training;Stair training;Home exercise program;Safety education & training;Patient/Caregiver education & training;Equipment evaluation, education, & procurement;Positioning;Therapeuti c activities Restrictions Restrictions/Precautions Restrictions/Precautions: General Precautions, Fall Risk Required Braces or Orthoses?: Yes Required Braces or Orthoses Right Lower Extremity Brace: Ankle Foot Orthotics Left Lower Extremity Brace: Dinorah Foot Orthotics Subjective Subjective Subjective: Pt. up in chair with visitor present, agreeable to therapy at this time. Pain: denies Objective Bed Mobility Training Bed Mobility Training: No Transfer Training Transfer Training: Yes Overall Level of Assistance: Modified independent Interventions: Verbal cues Sit to Stand: Modified independent Stand to Sit: Modified independent Toilet Transfer: Modified independent Gait Gait Training: Yes Overall Level of Assistance: Modified independent Distance (ft): 80 Feet Assistive Device: Walker, rollator;Gait belt Interventions: Verbal cues Speed/Diane: Slow Step Length: Left shortened;Right shortened Swing Pattern: Left asymmetrical;Right asymmetrical Gait Abnormalities: Hip hike;Foot drop PT Exercises Exercise Treatment: Seated exercises B LE x20. Standing sink exercises B Le x10 Other Specialty Interventions Other Treatments/Modalities: standing urinal use Safety Devices Type of Devices: Call light within reach;Left in chair;All fall risk precautions in place Goals Short Term Goals Time Frame for Short Term Goals: 20 visits Short Term Goal 1: Patient will tolerate 20-30' ther-ex in order to increase endurance and ease ADLS Short Term Goal 2: Patient will ascend/descend 4 steps with handrail with supervision assistance in order to safely enter/exit the home Short Term Goal 3: Patient will complete bed mobility and transfers independently in order to return to PLOF Short Term Goal 4: Patient will ambulate 200 feet with rollator with supervision assistance in order to return to PLOF Education Patient Education Education Given To: Patient Education Provided: Role of Therapy;Plan of Care;Home Exercise Program Education Method: Verbal Barriers to Learning: None Education Outcome: Verbalized understanding;Demonstrated understanding Therapy Time Individual Concurrent Group Co-treatment Time In 1233 Time Out 1302 Minutes 29 Silvia Stearns PTA Cosigned by Lee Mendez PT at 02/21/2025 3:13 PM EDT Occupational Therapy Facility/Department: [facility] Daily Treatment Note NAME: Evgeny Delgado : 1955 Date of Service: 02/21/2025 Discharge Recommendations: Continue to assess pending progress Patient Diagnosis(es): The primary encounter diagnosis was Acute respiratory failure with hypoxia and hypercapnia (HCC). Diagnoses of Muscular dystrophies (HCC), Chronic diastolic heart failure (HCC), and Chronic respiratory failure with hypoxia and hypercapnia (HCC) were also pertinent to this visit. Assessment Activity Tolerance: Patient tolerated treatment well Discharge Recommendations: Continue to assess pending progress Plan Occupational Therapy Plan Times Per Day: Once a day Days Per Week: 7 Days Current Treatment Recommendations: Strengthening;Balance training;Endurance training;Functional mobility training;Patient/Caregiver education & training;Safety education & training;Self-Care / ADL;Equipment evaluation, education, & procurement;ROM Restrictions General, fall risk. Subjective Subjective: Pt sitting up in bedside chair upon arrival. Pt agreed to participate in therapy session. Pain: Pt had no complaints of pain. Objective Vitals Fxl mob: SBA using 4ww with 0 LOB. Toileting: SBA to stand to void, pt managed clothing. OT Exercises Exercise Treatment: Pt completed BUE ther ex to increase strength needed for fxl tasks. Pt completed red digiflex x20, yellow flex bar bends and twists x20, and 1# free weight x20 x all planes. Pt req RBs as needed secondary to fatigue. Safety Devices Type of Devices: Call light within reach;Left in chair;All fall risk precautions in place Patient Education Education Given To: Patient Education Provided: Role of Therapy;Plan of Care;Home Exercise Program Education Method: Verbal Barriers to Learning: None Education Outcome: Verbalized understanding Goals Short Term Goals Time Frame for Short Term Goals: 21 visits Short Term Goal 1: Patient to be educated on d/c folder, AE/DME and home safety to ensure safe and indep return home. Short Term Goal 2: Patient to safely complete ADL routine c mod I c use of AE/DME as needed to ensure safe and independnet return home. Short Term Goal 3: Patient to engage in 15 minutes of ther ex/ther act c no more than 2 RB to improve strength and activity tolerance for ADL. AM-PAC - ADL Therapy Time Individual Concurrent Group Co-treatment Time In 1120 Time Out 1143 Minutes 23 BRANDY Alvarado S/OTA Cosigned by Fauzia Mejia OTR/L at 02/21/2025 12:54 PM EDT Physical Therapy Facility/Department: [facility] Daily Treatment Note NAME: Evgeny Delgado : 1955 Date of Service: 02/21/2025 Discharge Recommendations: Continue to assess pending progress Patient Diagnosis(es): The primary encounter diagnosis was Acute respiratory failure with hypoxia and hypercapnia (HCC). Diagnoses of Muscular dystrophies (HCC), Chronic diastolic heart failure (HCC), and Chronic respiratory failure with hypoxia and hypercapnia (HCC) were also pertinent to this visit. Assessment Assessment: Transfers:Mod I. Gait with 4WW, SUP/Mod I 40ftx1,15ftx1 with no noted LOB. Reclined and seated exercises B LE x20.Stanidng urinal use. Activity Tolerance: Patient tolerated treatment well Plan Physical Therapy Plan General Plan: 2 times a day 7 days a week Specific Instructions for Next Treatment: 1x per week on weekends and holidays Current Treatment Recommendations: Strengthening;ROM;Balance training;Functional mobility training;Transfer training;Gait training;Stair training;Home exercise program;Safety education & training;Patient/Caregiver education & training;Equipment evaluation, education, & procurement;Positioning;Therapeuti c activities Restrictions Restrictions/Precautions Restrictions/Precautions: General Precautions, Fall Risk Required Braces or Orthoses?: Yes Required Braces or Orthoses Right Lower Extremity Brace: Ankle Foot Orthotics Left Lower Extremity Brace: Dinorah Foot Orthotics Subjective Subjective Subjective: Pt. up in chair upon arrival, agreeable to therapy at this time. Pain: denies Objective Bed Mobility Training Bed Mobility Training: No Transfer Training Transfer Training: Yes Overall Level of Assistance: Modified independent Interventions: Verbal cues Sit to Stand: Modified independent Stand to Sit: Modified independent Toilet Transfer: Modified independent Gait Gait Training: Yes Overall Level of Assistance: Modified independent Distance (ft): 55 Feet Assistive Device: Walker, rollator;Gait belt Interventions: Verbal cues Speed/Diane: Slow Step Length: Left shortened;Right shortened Swing Pattern: Left asymmetrical;Right asymmetrical Gait Abnormalities: Hip hike;Foot drop PT Exercises Exercise Treatment: Reclined and Seated exercises B LE x20. Other Specialty Interventions Other Treatments/Modalities: standing urinal use Safety Devices Type of Devices: Call light within reach;Left in chair;All fall risk precautions in place;Nurse notified Goals Short Term Goals Time Frame for Short Term Goals: 20 visits Short Term Goal 1: Patient will tolerate 20-30' ther-ex in order to increase endurance and ease ADLS Short Term Goal 2: Patient will ascend/descend 4 steps with handrail with supervision assistance in order to safely enter/exit the home Short Term Goal 3: Patient will complete bed mobility and transfers independently in order to return to PLOF Short Term Goal 4: Patient will ambulate 200 feet with rollator with supervision assistance in order to return to PLOF Education Patient Education Education Given To: Patient Education Provided: Role of Therapy;Plan of Care;Home Exercise Program Education Method: Verbal Barriers to Learning: None Education Outcome: Verbalized understanding;Demonstrated understanding Therapy Time Individual Concurrent Group Co-treatment Time In 0820 Time Out 0847 Minutes 27 Silvia Stearns PTA Cosigned by Lee Mendez PT at 02/21/2025 9:17 AM EDT Images from the original note were not included. IT NETWORK ADMINISTRATOR - Progress Note Patient - Evgeny Delgado Date of Admission - 02/10/2025 4:04 PM Date of Evaluation - 02/21/2025 Hospital Day - 11 SUBJECTIVE: The Evgeny Delgado is a 70 y.o. male sitting up in chair on 2L of oxygen. No distress or complaints. Continues to await equipment for home. ROS: Constitutional: negative for fevers, and negative for chills. Respiratory: negative for shortness of breath, positive for cough, and negative for wheezing Cardiovascular: negative for chest pain, and negative for palpitations Gastrointestinal: negative for abdominal pain, negative for nausea,negative for vomiting, negative for diarrhea, and negative for constipation All other systems were reviewed with the patient and are negative unless otherwise stated in HPI. OBJECTIVE: VITAL SIGNS: Patient Vitals for the past 8 hrs: BP Temp Temp src Pulse Resp SpO2 02/21/25 0630 97/62 97.2 F (36.2 C) Temporal 71 19 99 % Temp: 97.2 F (36.2 C) Temp range: Temp Av F (36.7 C) Min: 97.2 F (36.2 C) Max: 98.6 F (37 C) BP: 97/62 BP Range: Systolic (24hrs), Av , Min:96 , Max:103 Diastolic (24hrs), Av, Min:60, Max:62 Pulse: 71 Pulse Range: Pulse Av Min: 71 Max: 80 Respirations: 19 Resp Range: Resp Av.8 Min: 19 Max: 20 SpO2: 99 % on supplemental O2 SpO2 range: SpO2 Av.4 % Min: 94 % Max: 99 % Weight Wt Readings from Last 3 Encounters: 02/20/25 93.5 kg (206 lb 0.5 oz) 12/16/24 90.3 kg (199 lb) 09/17/24 90.3 kg (199 lb) Body mass index is 30.41 kg/m . 24HR INTAKE/OUTPUT: Intake/Output Summary (Last 24 hours) at 02/21/2025 07 Last data filed at 02/21/2025 0552 Gross per 24 hour Intake 770 ml Output 2000 ml Net -1230 ml Date 02/21/25 0000 - 02/21/25 2359 Shift 1058-2214 3999-1865 0253-4206 24 Hour Total INTAKE P.O. 50 50 Shift Total(mL/kg) 50(0.5) 50(0.5) OUTPUT Shift Total(mL/kg) Weight (kg) 90.9 90.9 90.9 90.9 PHYSICAL EXAM: GEN: Awake and following commands: [] No [x] Yes MENTAL STATUS: alert and oriented x3. DISTRESS: Acute respiratory distress: [x] No [] Yes EYES: EOMI, pupils equal NECK: Supple. No lymphadenopathy. No carotid bruit CVS: regular rate and rhythm, no audible murmur PULM: diminished but clear, no acute respiratory distress ABD: Bowels sounds normal. Abdomen is soft. No distention. no tenderness to palpation. EXT: no edema bilaterally . No calf tenderness. NEURO: Moves all extremities. Motor and sensory are grossly intact SKIN: No rashes. No skin lesions. DATA: Complete Blood Count: Latest Reference Range & Units 02/10/25 16:18 02/11/25 05:08 02/12/25 05:05 02/13/25 06:12 02/14/25 06:35 02/15/25 06:00 02/19/25 05:45 WBC 3.5 - 11.3 k/uL 7.1 6.4 6.4 6.6 5.9 6.0 7.0 RBC 4.21 - 5.77 m/uL 5.94 (H) 5.17 5.15 5.59 5.46 5.07 4.84 Hemoglobin Quant 13.0 - 17.0 g/dL 14.6 12.8 (L) 12.9 (L) 14.0 13.5 12.7 (L) 12.1 (L) Hematocrit 40.7 - 50.3 % 53.0 (H) 45.7 45.9 49.6 48.3 45.6 43.5 MCV 82.6 - 102.9 fL 89.2 88.4 89.1 88.7 88.5 89.9 89.9 MCH 25.2 - 33.5 pg 24.6 (L) 24.8 (L) 25.0 (L) 25.0 (L) 24.7 (L) 25.0 (L) 25.0 (L) MCHC 28.4 - 34.8 g/dL 27.5 (L) 28.0 (L) 28.1 (L) 28.2 (L) 28.0 (L) 27.9 (L) 27.8 (L) MPV 8.1 - 13.5 fL 9.4 10.1 10.6 10.1 10.2 10.7 10.3 RDW 11.8 - 14.4 % 18.2 (H) 17.6 (H) 18.0 (H) 18.1 (H) 18.7 (H) 18.5 (H) 19.0 (H) Platelet Count 138 - 453 k/uL 162 166 161 144 135 (L) 151 154 Neutrophils % 36 - 65 % 73 (H) 66 (H) 63 61 69 (H) 69 (H) 69 (H) Lymphocyte % 24 - 43 % 18 (L) 24 25 28 21 (L) 22 (L) 19 (L) Monocytes % 3 - 12 % 7 8 8 7 7 6 8 Eosinophils % 1 - 4 % 1 1 2 2 2 2 2 Basophils % 0 - 2 % 0 0 1 1 0 0 1 Neutrophils Absolute 1.50 - 8.10 k/uL 5.18 4.23 4.04 4.02 4.07 4.14 4.83 Lymphocytes Absolute 1.10 - 3.70 k/uL 1.28 1.54 1.60 1.85 1.24 1.32 1.33 Monocytes Absolute 0.10 - 1.20 k/uL 0.50 0.51 0.51 0.46 0.41 0.36 0.56 Eosinophils Absolute 0.00 - 0.44 k/uL 0.07 0.06 0.13 0.13 0.12 0.12 0.14 Basophils Absolute 0.00 - 0.20 k/uL 0.00 0.00 0.06 0.07 0.00 0.00 0.07 Immature Granulocytes % 0 % 1 (H) 1 (H) 1 (H) 1 (H) 1 (H) 1 (H) 1 (H) Morphology HYPOCHROMIA PRESENT HYPOCHROMIA PRESENT HYPOCHROMIA PRESENT HYPOCHROMIA PRESENT Normal Normal Platelet scan shows Normal Platelets POIKILOCYTOSIS PRESENT Immature Granulocytes Absolute 0.00 - 0.30 k/uL 0.07 0.06 0.06 0.07 0.06 0.06 0.07 NRBC Automated 0.0 per 100 WBC 0.0 0.0 0.0 0.0 0.0 0.0 0.0 (H): Data is abnormally high (L): Data is abnormally low Latest Reference Range & Units 02/10/25 16:18 02/10/25 18:53 Troponin, High Sensitivity 0 - 22 ng/L 149 (HH) 131 (HH) (HH): Data is critically high Latest Reference Range & Units 02/10/25 16:18 NT Pro-BNP 0 - 125 pg/mL 147 (H) (H): Data is abnormally high Comprehensive Metabolic Profile: Latest Reference Range & Units 02/10/25 16:18 02/10/25 18:53 02/11/25 05:08 02/12/25 05:05 02/13/25 06:12 02/14/25 06:35 02/15/25 06:00 02/19/25 05:45 Sodium 136 - 145 mmol/L 140 140 141 139 140 141 141 Potassium 3.7 - 5.3 mmol/L 4.6 3.9 4.2 4.4 4.6 4.0 4.1 Chloride 98 - 107 mmol/L 91 (L) 96 (L) 96 (L) 96 (L) 96 (L) 96 (L) 100 CARBON DIOXIDE 20 - 31 mmol/L 41 (HH) 39 (H) 37 (H) 36 (H) 38 (H) 36 (H) 36 (H) BUN,BUNPL 8 - 23 mg/dL 14 14 15 14 16 16 15 Creatinine 0.70 - 1.20 mg/dL 0.5 (L) 0.4 (L) 0.5 (L) 0.5 (L) 0.5 (L) 0.5 (L) 0.5 (L) Bun/Cre 9 - 20 28 (H) 35 (H) 30 (H) 28 (H) 32 (H) 32 (H) 30 (H) Anion Gap 9 - 16 mmol/L 8 (L) 5 (L) 8 (L) 7 (L) 6 (L) 9 5 (L) Est, Glom Filt Rate >60 mL/min/1.73m2 >90 >90 >90 >90 >90 >90 >90 Glucose 74 - 99 mg/dL 182 (H) 107 (H) 121 (H) 117 (H) 109 (H) 122 (H) 121 (H) Calcium 8.6 - 10.4 mg/dL 9.5 8.7 9.0 9.1 9.0 8.7 8.6 Albumin/Globulin Ratio 1.0 - 2.5 1.8 Total Protein 6.6 - 8.7 g/dL 6.7 Troponin, High Sensitivity 0 - 22 ng/L 149 (HH) 131 (HH) NT Pro-BNP 0 - 125 pg/mL 147 (H) Albumin 3.5 - 5.2 g/dL 4.3 Alkaline Phosphatase 40 - 129 U/L 96 ALT 10 - 50 U/L 21 AST 10 - 50 U/L 24 Total Bilirubin 0.00 - 1.20 mg/dL 0.7 (HH): Data is critically high (L): Data is abnormally low (H): Data is abnormally high ABGs: Latest Reference Range & Units 02/19/25 06:39 02/20/25 05:32 pH, Arterial 7.35 - 7.45 7.318 (L) 7.368 pH, Art, Temp Adj 7.350 - 7.450 7.318 (L) 7.368 pCO2, Art, Temp Adj 35.0 - 45.0 77.6 (HH) 64.6 (HH) pCO2, Arterial 35 - 45 mmHg 77.6 (HH) 64.6 (HH) pO2, Art, Temp Adj 80.0 - 100.0 mmHg 69.9 (L) 88.0 pO2, Arterial 80.0 - 100.0 mmHg 69.9 (L) 88.0 HCO3, Arterial 22 - 26 mmol/L 38.9 (H) 36.3 (H) Positive Base Excess, Art 0.0 - 2.0 mmol/L 9.3 (H) 8.4 (H) O2 Sat, Arterial 95 - 98 % 91.8 (L) 96.2 Pt Temp 37.0 37.0 Sample Site Right Radial Artery Right Radial Artery O2 Device/Flow/% Cannula ROOM AIR Text for Respiratory Called to PROVIDER on 11/22/2024 at 06:42 Called to RN on 02/20/2025 at 05:34 (HH): Data is critically high (L): Data is abnormally low (H): Data is abnormally high (H): Data is abnormally high Latest Reference Range & Units 02/17/25 15:08 02/18/25 05:45 pH, Arterial 7.35 - 7.45 7.548 (H) 7.348 (L) pH, Art, Temp Adj 7.350 - 7.450 7.548 (HH) 7.348 (L) pCO2, Art, Temp Adj 35.0 - 45.0 32.1 (L) 72.7 (HH) pCO2, Arterial 35 - 45 mmHg 32.1 (L) 72.7 (HH) pO2, Art, Temp Adj 80.0 - 100.0 mmHg 86.4 93.7 pO2, Arterial 80.0 - 100.0 mmHg 86.4 93.7 HCO3, Arterial 22 - 26 mmol/L 27.3 (H) 39.1 (H) Positive Base Excess, Art 0.0 - 2.0 mmol/L 5.4 (H) 10.1 (H) O2 Sat, Arterial 95 - 98 % 97.6 96.5 Pt Temp 37.0 37.0 Sample Site Left Radial Artery Right Radial Artery O2 Device/Flow/% BIPAP BIPAP Text for Respiratory Called to RN on 02/18/2025 at 05:49 (HH): Data is critically high (H): Data is abnormally high (L): Data is abnormally low Latest Reference Range & Units 02/15/25 06:32 05/04/25 06:15 pH, Arterial 7.35 - 7.45 7.290 (L) 7.304 (L) pH, Art, Temp Adj 7.350 - 7.450 7.290 (LL) 7.304 (L) pCO2, Art, Temp Adj 35.0 - 45.0 85.6 (HH) 81.3 (HH) pCO2, Arterial 35 - 45 mmHg 85.6 (HH) 81.3 (HH) pO2, Art, Temp Adj 80.0 - 100.0 mmHg 66.0 (L) 64.9 (L) pO2, Arterial 80.0 - 100.0 mmHg 66.0 (L) 64.9 (L) HCO3, Arterial 22 - 26 mmol/L 40.2 (H) 39.5 (H) Positive Base Excess, Art 0.0 - 2.0 mmol/L 10.1 (H) 9.4 (H) O2 Sat, Arterial 95 - 98 % 91.2 (L) 89.6 (L) Pt Temp 37.0 37.0 Sample Site Right Brachial Artery Right Radial Artery O2 Device/Flow/% Cannula Cannula Text for Respiratory Called to RN on 02/15/2025 at 06:35 Called to RN on 02/16/2025 at 06:18 (LL): Data is critically low (HH): Data is critically high (L): Data is abnormally low (H): Data is abnormally high Latest Reference Range & Units 02/13/25 10:10 02/14/25 06:05 pH, Arterial 7.35 - 7.45 7.359 7.339 (L) pH, Art, Temp Adj 7.350 - 7.450 7.359 7.339 (L) pCO2, Art, Temp Adj 35.0 - 45.0 71.6 (HH) 74.2 (HH) pCO2, Arterial 35 - 45 mmHg 71.6 (HH) 74.2 (HH) pO2, Art, Temp Adj 80.0 - 100.0 mmHg 63.4 (L) 129.5 (H) pO2, Arterial 80.0 - 100.0 mmHg 63.4 (L) 129.5 (H) HCO3, Arterial 22 - 26 mmol/L 39.5 (H) 39.0 (H) Positive Base Excess, Art 0.0 - 2.0 mmol/L 10.6 (H) 9.8 (H) O2 Sat, Arterial 95 - 98 % 90.5 (L) 98.3 (H) (HH): Data is critically high (L): Data is abnormally low (H): Data is abnormally high Latest Reference Range & Units 02/11/25 09:04 02/11/25 11:59 02/12/25 07:21 pH, Arterial 7.35 - 7.45 7.343 (L) 7.335 (L) pH, Art, Temp Adj 7.350 - 7.450 7.343 (L) 7.335 (L) pCO2, Art, Temp Adj 35.0 - 45.0 64.9 (HH) 65.4 (HH) pCO2, Arterial 35 - 45 mmHg 64.9 (HH) 65.4 (HH) pO2, Art, Temp Adj 80.0 - 100.0 mmHg 73.1 (L) 80.8 pO2, Arterial 80.0 - 100.0 mmHg 73.1 (L) 80.8 HCO3, Arterial 22 - 26 mmol/L 34.5 (H) 34.1 (H) Positive Base Excess, Art 0.0 - 2.0 mmol/L 6.3 (H) 5.8 (H) O2 Sat, Arterial 95 - 98 % 93.4 (L) 94.9 (L) pH, Galo 7.32 - 7.42 7.321 pH, Galo, Temp Adj 7.320 - 7.420 7.321 pCO2, Galo 39 - 55 mm Hg 82.0 (HH) pO2, Galo 30.0 - 50.0 mm Hg 35.3 pO2, Galo, Temp Adj 30.0 - 50.0 mmHg 35.3 Bicarbonate, Venous 24.0 - 30.0 mmol/L 41.4 (H) Positive Base Excess, Galo 0.0 - 2.0 mmol/L 11.3 (H) O2 Saturation Venous 60.0 - 85.0 % 59.9 (L) Pt Temp 37.0 37.0 37.0 Sample Site Right Radial Artery Right Brachial Artery Set Rate 1 1 O2 Device/Flow/% Cannula Cannula HEATED HIGH FLOW Text for Respiratory Called to RN on 02/11/2025 at 09:07 Called to RN on 02/11/2025 at 12:02 Called to RN on 02/12/2025 at 07:24 (HH): Data is critically high (L): Data is abnormally low (H): Data is abnormally high Latest Reference Range & Units 02/10/25 16:26 02/10/25 21:01 02/10/25 23:05 02/11/25 05:20 pH, Arterial 7.35 - 7.45 7.389 pH, Art, Temp Adj 7.350 - 7.450 7.389 pCO2, Art, Temp Adj 35.0 - 45.0 73.5 (HH) pCO2, Arterial 35 - 45 mmHg 73.5 (HH) pO2, Art, Temp Adj 80.0 - 100.0 mmHg 66.6 (L) pO2, Arterial 80.0 - 100.0 mmHg 66.6 (L) HCO3, Arterial 22 - 26 mmol/L 43.4 (H) Positive Base Excess, Art 0.0 - 2.0 mmol/L 14.4 (H) O2 Sat, Arterial 95 - 98 % 92.2 (L) pH, Galo 7.32 - 7.42 7.368 7.408 7.336 pH, Galo, Temp Adj 7.320 - 7.420 7.368 7.408 7.336 pCO2, Galo 39 - 55 mm Hg 72.0 (HH) 62.0 (HH) 76.1 (HH) pO2, Galo 30.0 - 50.0 mm Hg 26.0 (L) 40.2 92.2 (H) pO2, Galo, Temp Adj 30.0 - 50.0 mmHg 26.0 (L) 40.2 92.2 (H) Bicarbonate, Venous 24.0 - 30.0 mmol/L 40.5 (H) 38.2 (H) 39.8 (H) Positive Base Excess, Galo 0.0 - 2.0 mmol/L 11.7 (H) 10.8 (H) 10.4 (H) O2 Saturation Venous 60.0 - 85.0 % 43.3 (L) 74.0 96.2 (H) Pt Temp 37.0 37.0 37.0 37.0 Sample Site Left Brachial Artery O2 Device/Flow/% Cannula BIPAP BIPAP Text for Respiratory Called to PROVIDER on 02/10/2025 at 16:28 Called to PROVIDER on 02/10/2025 at 21:02 Called to PROVIDER on 02/10/2025 at 23:07 Called to RN on 02/11/2025 at 05:22 (HH): Data is critically high (L): Data is abnormally low (H): Data is abnormally high Radiology/Imaging: XR CHEST (2 VW) Final Result No acute cardiopulmonary disease. Stable subsegmental atelectasis on the right. CT CHEST PULMONARY EMBOLISM W CONTRAST Final Result 1. No evidence of pulmonary embolism or acute pulmonary abnormality. 2. Age-indeterminate T6 compression deformity, but likely chronic. 3. Gallbladder stones versus sludge. 4. Lobular liver contour, raising suspicion for cirrhosis or chronic liver disease. XR CHEST PORTABLE Final Result No acute cardiopulmonary process. ASSESSMENT / PLAN: Primary Problem(s): Acute respiratory failure with hypoxia and hypercapnia (HCC) Differential diagnoses: Pneumonia, viral illness, COPD exacerbation, CHF Condition is an acute or chronic illness or injury that poses threat to life or bodily function Condition is stable Treatment plan: Appreciate pulmonology Discussed with Dr. Perkins/Dr Russell/Dr Cheek Recommendations: BiPAP, intubation, palliative care. Trilogy at home-Discussed with DR Russell. Settings: Cancel-Mas Pressure Support-14 cwp, Min PS 8 cwp, Max EPAP 8 cwp, Mi EPAP 4 cwp, TV 400-500 ml, RR 10 with 1L of Oxygen 02/17/2025-Will reach out to Pulm--ABGs worsening despite changes RT has made Changed to BiPAP 12/6 with a backup rate 12. May go up to an IPAP of 14. Clock if this does not work then only other option is tracheostomy, ventilator for palliative care Now qualifies for 2L of oxygen. I did call and spoke with his Barrel Loader, Dr Church at [place] and discussed his case on 02/17/2025. Likely related to MD due to no infectious process Trend ABGs, no further VBG's Respiratory viral panel-negative Monitor labs and replace electrolytes Nocturnal Pulse oximetry completed Imaging: no further imaging studies ordered today Medications: Continue nebs Continue Zpak Continue Zyrtec Medication Monitoring / High Risk Medications: none Chronic diastolic CHF Condition is a chronic stable condition Treatment plan: Monitor labs and replace electrolytes I&O, daily weights Imaging: no further imaging studies ordered today Last echo from 12/16/2024 showed an EF of 55 to 60%, mildly increased wall thickness, grade 1 diastolic dysfunction with normal LAP, moderate to severe aortic stenosis Medications: Continue Entresto Continue Toprol-XL Continue Lasix Nutrition status: Well developed, well nourished with no malnutrition I/O Daily Weight Nutritional Supplements as tolerated Fish Culturist consult initiated MALNUTRITION ASSESSMENT AND PLAN The following was documented by the Dietitian: Malnutrition Assessment Context of Malnutrition: Acute Illness (02/11/25823) Acute Illness - Energy Intake : No decrease in energy intake (02/11/25823) Acute Illness - Weight Loss : No weight loss (02/11/25823) Acute Illness - Body Fat Loss: No body fat loss (02/11/25823) Acute Illness - Muscle Mass Loss: No muscle mass loss (02/11/25823) Acute Illness - Fluid Accumulation : Moderate to Severe (02/11/25823) Acute Illness - Fluid Accumulation Location: Extremities (02/11/25823) Acute Illness - Hatchery Laborer Strength: Not Performed (02/11/25823) Acute Illness - Malnutrition Score: 7 (02/11/25823) Malnutrition Status: No malnutrition (02/11/25823) I agree with the dietitian's malnutrition assessment. Medical Nutrition Therapy: continue current nutrition therapy [facility] Prophylaxis: DVT: Lovenox Stress Ulcer: PPI Disposition: Shared decision making: All test results, treatment options and disposition options were discussed with the patient today Social determinants of health that may impact management: none Code status: Full Code Disposition: Discharge plan is home Unavoidable Day MIPS Advanced Care Planning documentation: [x] I have confirmed that the patient's Advance Care Plan is present, Code Status is documented, or surrogate decision maker is listed in the patient's medical record [If yes , STOP HERE] [] The patient's Advance Care Plan is NOT present because: [] I confirmed today that the patient does not wish or was not able to name a surrogate decision maker or provide and advance care plan. [] Hospice care is currently being provided or has been provided within the calendar year. [] I did NOT confirm today the presence of an Advance Care Plan or surrogate decision maker documented within the patient's medical record. [DOES NOT SATISFY MIPS PERFORMANCE] Jillian Lissa LORENA Johnson - LEVY , IT NETWORK ADMINISTRATOR-MAIL INSERTER-C 02/21/2025 7:31 AM FACE TO FACE: Patient qualified for home O2. Discussed with patient the medical necessity of home O2. Patient voiced understanding and agreement. Jillian Lissa LORENA Johnson CNP, IT NETWORK ADMINISTRATOR, MAIL INSERTER-C 02/21/2025, 7:31 AM This patient has Chronic Respiratory Failure secondary to Muscular Dystrophy, requiring noninvasive ventilation therapy in the home to maintain or optimize an acceptable PCO2 level. If the PCO2 level is not managed, this could cause harm or even . This could also reduce respiratory readmissions. BiPAP has proven to be ineffective in maintaining the patients PCO2 levels, now requiring noninvasive therapy. Cosigned by Fabian Avery MD at 02/21/2025 1:26 PM EDT Associated attestation - Fabian Avery MD - 02/21/2025 1:26 PM EDT Attending Supervising Physician s Attestation Statement I have personally evaluated and examined the patient [id number] in conjunction with the nurse practitioner. I agree with management and disposition of the patient. Examined and Reviewed plan of care with MAIL INSERTER. Directions and discussion about care and plans. Disposition including length of stay was reviewed. Nutritional status, advanced directive and old records reviewed. In addition, Consultations and pharmacy management including drug therapy was reviewed. Therapy goals along with occupational therapy was reviewed & integrated into management including disposition. The patient was seen examined with the nurse practitioner & all direct care was reviewed with the nurse practitioner at the bedside with the patient. Electronically signed by Fabian Avery MD Wing Commander to bedside to complete morning assessment. Upon entry to room, pt alert up, respirations even while on 2L nasal cannula. Vitals obtained and assessment completed, see flow sheet for details. Pt denies needs from securities underwriter at this time. Call light in reach. Care ongoing. Patient assessment and vitals completed as charted. Patient A&OX4 and cooperative with assessment. Patient resting comfortably at this time, denies any pain at this time and denies any needs. Call light within patients reach and bed alarm on. Plan of care ongoing. RESPIRATORY ASSESSMENT PROTOCOL Patient Name: Evgeny Delgado Room#: 0328/0328-01 : 1955 Admitting diagnosis: Acute on chronic respiratory failure with hypoxia and hypercapnia (HCC) [J96.21, J96.22] Medical History: Past Medical History: Diagnosis Date Aortic stenosis CHF (congestive heart failure) ([facility]) Diabetes mellitus (HCC) FSHD (facioscapulohumeral muscular dystrophy) ([facility]) HFrEF (heart failure with reduced ejection fraction) ([facility]) HLD (hyperlipidemia) HTN (hypertension) Nonischemic cardiomyopathy ([facility]) PATIENT ASSESSMENT LABORATORY DATA Hematology: Lab Results Component Value Date/Time WBC 7.0 2025 05:45 AM RBC 4.84 2025 05:45 AM HGB 12.1 2025 05:45 AM HCT 43.5 2025 05:45 AM PLT 154 2025 05:45 AM Chemistry: Lab Results Component Value Date/Time PHART 7.368 02/20/2025 05:32 AM [id number] 64.6 02/20/2025 05:32 AM PO2ART 88.0 02/20/2025 05:32 AM [id number] 96.2 02/20/2025 05:32 AM RRT0MNV 36.3 02/20/2025 05:32 AM PBEA 8.4 02/20/2025 05:32 AM VITALS Pulse: 77 Respirations: 20 BP: 96/60 SpO2: 95 % O2 Device: Nasal cannula Temp: 98.6 F (37 C) SKIN COLOR [x] Normal [] Pale [] Dusky [] Cyanotic RESPIRATORY PATTERN [x] Normal [] Dyspnea [] Romel-Byrd [] Kussmaul [] Biots AMBULATORY [] Yes [] No [x] With Assistance Patient Acuity 0 1 2 3 4 Score Level of Consciousness (LOC) [x] Alert & Oriented or Pt normal LOC [] Confused;follows directions [] Confused & uncooper-ative [] Obtunded [] Comatose 0 Respiratory Rate (RR) [x] Reg. rate & pattern. 12 - 20 bpm [] Increased RR. Greater than 20 bpm [] SOB w/ exertion or RR greater than 24 bpm [] Access- ory muscle use at rest. Abn. resp. [] SOB at rest. 0 Bilateral Breath Sounds (BBS) [] Clear [] Diminish-ed bases [x] Diminish-ed t/o, or rales [] Sporadic, scattered wheezes or rhonchi [] Persistentwheezes and, or absent BBS 2 Cough [] Strong, effective, & non-prod. [x] Effective & prod. Less than 25 ml (2 TBSP) over past 24 hrs [] Ineffective & non-prod to less than 25 ML over past 24 hrs [] Ineffective and, or greater than 25 ml sputum prod. past 24 hrs. [] Nonspon- taneous; Requires suctioning 1 Pulmonary History (PULM HX) [] No smoking and no chronic pulmonary history [] Former smoker. Quit over 12 mos. ago [] Current smoker or quit w/ in 12 mos [] Pulm. History and, or 20 pk/yr smoking hx [x] Admitted w/ acute pulm. dx and, or has been admitted w/ pulm. dx 2 or more times over past 12 mos 4 Surgical History this Admit (SURG HX) [x] No surgery [] General surgery [] Lower abdominal [] Thoracic or upper abdominal [] Thoracic w/ pulm. disease 0 Chest X-Ray (CXR)/CT Scan [] Clear or not applicable [] Not available [x] Atelectasis or pleural effusions [] Localized infiltrate or pulm. edema [] Con-solidated Infiltrates, bilateral, or in more than 1 lobe 2 TOTAL ACUITY: 9 CARE PLAN If Acuity Level is 2, 3, or 4 in any of the following: [x] BILATERAL BREATH SOUNDS (BBS) [x] PULMONARY HISTORY (PULM HX) [] Respiratory Rate (RR) Goal: Improve respiratory functions in patients with airway disease and decrease WOB [x] AEROSOL PROTOCOL Total Acuity: 14-28 [] Secondary Assessment in 24 hrs Total Acuity: 9-13 [x] Secondary Assessment in 24 hrs Total Acuity: 4-8 [] Secondary Assessment in 24 hrs Total Acuity: 0-3 [] Secondary Assessment in 48 hrs HHN AEROSOL THERAPY with [physician-ordered bronchodilator(s)] q 4 & Albuterol PRN q2 hrs. Breath-Actuated Neb if BBS Acuity = 4, and pt. can use MP. Notify physician if condition deteriorates. HHN AEROSOL THERAPY with [physician-ordered bronchodilator(s)] QID and Albuterol PRN q4 hrs. Breath-Actuated Neb if BBS Acuity = 4, and pt. can use MP. Notify physician if condition deteriorates. MDI THERAPY with 2 actuations of [physician-ordered bronchodilator(s)] via spacer TID Albuterol and PRN q4 hrs. If unable to utilize MDI: HHN [physician-ordered bronchodilator(s)] TID and Albuterol PRN q4 hrs. Notify physician if condition deteriorates. MDI THERAPY with [physician-ordered bronchodilator(s)] via spacer TID PRN. If unable to utilize MDI: HHN [physician-ordered bronchodilator(s)] TID PRN. Notify physician if condition deteriorates. If Acuity Level is 2, 3, or 4 in any of the following: [] COUGH [] SURGICAL HISTORY (SURG HX) [x] CHEST XRAY (CXR) Goal: Improvement in sputum mobilization in patients with ineffective airway clearance. Reverse atelectasis. [x] Bronchopulmonary Hygiene Protocol Total Acuity: 14-28 [] Secondary Assessment in 24 hrs Total Acuity: 9-13 [x] Secondary Assessment in 24 hrs Total Acuity: 4-8 [] Secondary Assessment in 24 hrs Total Acuity: 0-3 [] Secondary Assessment in 48 hrs METANEB QID with [physician-ordered bronchodilator(s)] if CXR Acuity = 4; otherwise: PD&P, Oscillatory Therapy, or Vest QID & PRN AND PEP QID & PRN NT Sxn PRN for ineffective cough METANEB QID with [physician-ordered bronchodilator(s)] if CXR Acuity = 4; otherwise: PD&P, Oscillatory Therapy or Vest QID & PRN AND PEP QID & PRN NT Sxn PRN for ineffective cough PD&P, Oscillatory Therapy, or Vest TID & PRN AND PEP TID & PRN Instruct patient to self-perform IS q1hr WA If Acuity Level is 2 or above in the following: [] PULMONARY HISTORY (PULM HX) Goal: Assist patient in quitting smoking to slow or stop the progression of lung disease. [] Smoking Cessation Protocol SMOKING CESSATION EDUCATION provided according to policy RT_201: (fabian with an X) ____Yes ____ No ____ NA Smoking Cessation Booklet given: ____Yes ____No ____Patient Refused Physical Therapy Facility/Department: [facility] Daily Treatment Note NAME: Evgeny Delgado : 1955 Date of Service: 02/20/2025 Discharge Recommendations: Continue to assess pending progress Patient Diagnosis(es): The primary encounter diagnosis was Acute respiratory failure with hypoxia and hypercapnia (HCC). Diagnoses of Muscular dystrophies (HCC), Chronic diastolic heart failure (HCC), and Chronic respiratory failure with hypoxia and hypercapnia (HCC) were also pertinent to this visit. Assessment Assessment: Transfers: SUP/Mod I. Gait with 4WW, SUP/Mod I 90ftx1,30ftx1 with no noted LOB. Seated exercises B LE x20. STS x5. Stanidng urinal use. Activity Tolerance: Patient tolerated treatment well Plan Physical Therapy Plan General Plan: 2 times a day 7 days a week Specific Instructions for Next Treatment: 1x per week on weekends and holidays Current Treatment Recommendations: Strengthening;ROM;Balance training;Functional mobility training;Transfer training;Gait training;Stair training;Home exercise program;Safety education & training;Patient/Caregiver education & training;Equipment evaluation, education, & procurement;Positioning;Therapeuti c activities Restrictions Restrictions/Precautions Restrictions/Precautions: General Precautions, Fall Risk Required Braces or Orthoses?: Yes Required Braces or Orthoses Right Lower Extremity Brace: Ankle Foot Orthotics Left Lower Extremity Brace: Dinorah Foot Orthotics Subjective Subjective Subjective: Pt. up in chair upon arrival, agreeable to therapy at this time. Pain: denies Objective Bed Mobility Training Bed Mobility Training: No Transfer Training Transfer Training: Yes Overall Level of Assistance: Supervision;Modified independent Interventions: Verbal cues Sit to Stand: Supervision;Modified independent Stand to Sit: Supervision;Modified independent Toilet Transfer: Supervision Gait Gait Training: Yes Overall Level of Assistance: Supervision;Modified independent Distance (ft): 120 Feet Assistive Device: Walker, rollator;Gait belt Interventions: Verbal cues Speed/Diane: Slow Step Length: Left shortened;Right shortened Swing Pattern: Left asymmetrical;Right asymmetrical Gait Abnormalities: Hip hike;Foot drop PT Exercises Exercise Treatment: Seated exercises B LE x20. STS x5 Other Specialty Interventions Other Treatments/Modalities: standing urinal use Safety Devices Type of Devices: Call light within reach;Chair alarm in place;Left in chair;All fall risk precautions in place Goals Short Term Goals Time Frame for Short Term Goals: 20 visits Short Term Goal 1: Patient will tolerate 20-30' ther-ex in order to increase endurance and ease ADLS Short Term Goal 2: Patient will ascend/descend 4 steps with handrail with supervision assistance in order to safely enter/exit the home Short Term Goal 3: Patient will complete bed mobility and transfers independently in order to return to PLOF Short Term Goal 4: Patient will ambulate 200 feet with rollator with supervision assistance in order to return to PLOF Education Patient Education Education Given To: Patient Education Provided: Role of Therapy;Plan of Care;Home Exercise Program Education Method: Verbal Barriers to Learning: None Education Outcome: Verbalized understanding;Demonstrated understanding Therapy Time Individual Concurrent Group Co-treatment Time In 1246 Time Out 1312 Minutes 26 Silvia Stearns PTA Cosigned by Lee Mendez PT at 02/20/2025 3:43 PM EDT Removed IV to L AC due to it being there since 02/10, no complications at site besides a little erythema at insertion site. Dressing applied. Per Jillian LOCKETT, ok to leave IV out. Occupational Therapy Facility/Department: [facility] Daily Treatment Note NAME: Evgeny Delgado : 1955 Date of Service: 02/20/2025 Discharge Recommendations: Continue to assess pending progress Patient Diagnosis(es): The primary encounter diagnosis was Acute respiratory failure with hypoxia and hypercapnia (HCC). Diagnoses of Muscular dystrophies (HCC), Chronic diastolic heart failure (HCC), and Chronic respiratory failure with hypoxia and hypercapnia (HCC) were also pertinent to this visit. Assessment Activity Tolerance: Patient tolerated treatment well Discharge Recommendations: Continue to assess pending progress Plan Occupational Therapy Plan Times Per Day: Once a day Days Per Week: 7 Days Current Treatment Recommendations: Strengthening;Balance training;Endurance training;Functional mobility training;Patient/Caregiver education & training;Safety education & training;Self-Care / ADL;Equipment evaluation, education, & procurement;ROM Restrictions General, fall risk. Subjective Subjective: Pt sitting up in bedside chair upon arrival. Pt agreed to participate in therapy session. Pain: Pt had no complaints of pain. Objective Vitals OT Exercises Exercise Treatment: Pt completed BUE ther ex to increase strength needed for fxl tasks. Pt completed red digiflex x20, yellow flex bar bends and twists x20, and 1# free weight x20 x all planes. Pt req RBs as needed secondary to fatigue. Safety Devices Type of Devices: Call light within reach;Chair alarm in place;Left in chair;All fall risk precautions in place Patient Education Education Given To: Patient Education Provided: Role of Therapy;Plan of Care;Home Exercise Program Education Method: Verbal Barriers to Learning: None Education Outcome: Verbalized understanding Goals Short Term Goals Time Frame for Short Term Goals: 21 visits Short Term Goal 1: Patient to be educated on d/c folder, AE/DME and home safety to ensure safe and indep return home. Short Term Goal 2: Patient to safely complete ADL routine c mod I c use of AE/DME as needed to ensure safe and independnet return home. Short Term Goal 3: Patient to engage in 15 minutes of ther ex/ther act c no more than 2 RB to improve strength and activity tolerance for ADL. AM-PAC - ADL Therapy Time Individual Concurrent Group Co-treatment Time In 1044 Time Out 1108 Minutes 24 BRANDY Alvarado S/BRANDY Cosigned by Fauzia Mejia OTR/L at 02/21/2025 12:54 PM EDT Physical Therapy Facility/Department: [facility] Daily Treatment Note NAME: Evgeny Delgado : 1955 Date of Service: 02/20/2025 Discharge Recommendations: Continue to assess pending progress Patient Diagnosis(es): The primary encounter diagnosis was Acute respiratory failure with hypoxia and hypercapnia (HCC). Diagnoses of Muscular dystrophies (HCC), Chronic diastolic heart failure (HCC), and Chronic respiratory failure with hypoxia and hypercapnia (HCC) were also pertinent to this visit. Assessment Assessment: Transfers: SUP/Mod I. Gait with 4WW, SUP/Mod I [id number] with no noted LOB. Reclined and seated exercises B LE x20. Activity Tolerance: Patient tolerated treatment well Plan Physical Therapy Plan General Plan: 2 times a day 7 days a week Specific Instructions for Next Treatment: 1x per week on weekends and holidays Current Treatment Recommendations: Strengthening;ROM;Balance training;Functional mobility training;Transfer training;Gait training;Stair training;Home exercise program;Safety education & training;Patient/Caregiver education & training;Equipment evaluation, education, & procurement;Positioning;Therapeuti c activities Restrictions Restrictions/Precautions Restrictions/Precautions: General Precautions, Fall Risk Required Braces or Orthoses?: Yes Required Braces or Orthoses Right Lower Extremity Brace: Ankle Foot Orthotics Left Lower Extremity Brace: Dinorah Foot Orthotics Subjective Subjective Subjective: Pt. up in chair upon arrival, agreeable to therapy at this time. Pain: denies Objective Bed Mobility Training Bed Mobility Training: No Transfer Training Transfer Training: Yes Overall Level of Assistance: Supervision;Modified independent Interventions: Verbal cues Sit to Stand: Supervision;Modified independent Stand to Sit: Supervision;Modified independent Gait Gait Training: Yes Overall Level of Assistance: Supervision;Modified independent Assistive Device: Walker, rollator;Gait belt Interventions: Verbal cues Speed/Diane: Slow Step Length: Left shortened;Right shortened Swing Pattern: Left asymmetrical;Right asymmetrical Gait Abnormalities: Hip hike;Foot drop PT Exercises Exercise Treatment: Reclined and seated exercises B LE x20 Safety Devices Type of Devices: Call light within reach;Chair alarm in place;Left in chair;All fall risk precautions in place Goals Short Term Goals Time Frame for Short Term Goals: 20 visits Short Term Goal 1: Patient will tolerate 20-30' ther-ex in order to increase endurance and ease ADLS Short Term Goal 2: Patient will ascend/descend 4 steps with handrail with supervision assistance in order to safely enter/exit the home Short Term Goal 3: Patient will complete bed mobility and transfers independently in order to return to PLOF Short Term Goal 4: Patient will ambulate 200 feet with rollator with supervision assistance in order to return to PLOF Education Patient Education Education Given To: Patient Education Provided: Role of Therapy;Plan of Care;Home Exercise Program Education Method: Verbal Barriers to Learning: None Education Outcome: Verbalized understanding;Demonstrated understanding Therapy Time Individual Concurrent Group Co-treatment Time In 0718 Time Out 0749 Minutes 31 Silvia Stearns PTA Cosigned by Lee Mendez PT at 02/20/2025 8:42 AM EDT Images from the original note were not included. IT NETWORK ADMINISTRATOR - Progress Note Patient - Evgeny Delgado Date of Admission - 02/10/2025 4:04 PM Date of Evaluation - 02/20/2025 Hospital Day - 10 SUBJECTIVE: The Evgeny Delgado is a 70 y.o. male sitting up in chair on 2L of oxygen. No distress or complaints. Continues to await equipment for home. ROS: Constitutional: negative for fevers, and negative for chills. Respiratory: negative for shortness of breath, positive for cough, and negative for wheezing Cardiovascular: negative for chest pain, and negative for palpitations Gastrointestinal: negative for abdominal pain, negative for nausea,negative for vomiting, negative for diarrhea, and negative for constipation All other systems were reviewed with the patient and are negative unless otherwise stated in HPI. OBJECTIVE: VITAL SIGNS: Patient Vitals for the past 8 hrs: BP Temp Temp src Pulse Resp SpO2 Weight 02/20/25 0700 101/67 97.8 F (36.6 C) Temporal 75 18 95 % -- 02/20/25 0521 -- -- -- -- -- 97 % -- 02/20/25 0125 111/70 -- -- 63 16 97 % 93.5 kg (206 lb 0.5 oz) Temp: 97.8 F (36.6 C) Temp range: Temp Av.3 F (36.3 C) Min: 96.8 F (36 C) Max: 97.8 F (36.6 C) BP: 101/67 BP Range: Systolic (24hrs), Av , Min:97 , Max:111 Diastolic (24hrs), Av, Min:61, Max:70 Pulse: 75 Pulse Range: Pulse Av Min: 63 Max: 75 Respirations: 18 Resp Range: Resp Av.7 Min: 16 Max: 18 SpO2: 95 % on supplemental O2 SpO2 range: SpO2 Av.3 % Min: 94 % Max: 97 % Weight Wt Readings from Last 3 Encounters: 02/20/25 93.5 kg (206 lb 0.5 oz) 12/16/24 90.3 kg (199 lb) 09/17/24 90.3 kg (199 lb) Body mass index is 30.41 kg/m . 24HR INTAKE/OUTPUT: Intake/Output Summary (Last 24 hours) at 02/20/2025 0733 Last data filed at 02/20/2025 0726 Gross per 24 hour Intake 1540 ml Output 1325 ml Net 215 ml Date 02/20/25 0000 - 02/20/25 2359 Shift [id number] 9504-1089 4298-2526 24 Hour Total INTAKE P.O. 100 100 Shift Total(mL/kg) 100(1.1) 100(1.1) OUTPUT Urine(mL/kg/hr) 625 625 Shift Total(mL/kg) 625(6.9) 625(6.9) Weight (kg) 90.9 90.9 90.9 90.9 PHYSICAL EXAM: GEN: Awake and following commands: [] No [x] Yes MENTAL STATUS: alert and oriented x3. DISTRESS: Acute respiratory distress: [x] No [] Yes EYES: EOMI, pupils equal NECK: Supple. No lymphadenopathy. No carotid bruit CVS: regular rate and rhythm, no audible murmur PULM: diminished but clear, no acute respiratory distress ABD: Bowels sounds normal. Abdomen is soft. No distention. no tenderness to palpation. EXT: no edema bilaterally . No calf tenderness. NEURO: Moves all extremities. Motor and sensory are grossly intact SKIN: No rashes. No skin lesions. DATA: Complete Blood Count: Latest Reference Range & Units 02/10/25 16:18 02/11/25 05:08 02/12/25 05:05 02/13/25 06:12 02/14/25 06:35 02/15/25 06:00 02/19/25 05:45 WBC 3.5 - 11.3 k/uL 7.1 6.4 6.4 6.6 5.9 6.0 7.0 RBC 4.21 - 5.77 m/uL 5.94 (H) 5.17 5.15 5.59 5.46 5.07 4.84 Hemoglobin Quant 13.0 - 17.0 g/dL 14.6 12.8 (L) 12.9 (L) 14.0 13.5 12.7 (L) 12.1 (L) Hematocrit 40.7 - 50.3 % 53.0 (H) 45.7 45.9 49.6 48.3 45.6 43.5 MCV 82.6 - 102.9 fL 89.2 88.4 89.1 88.7 88.5 89.9 89.9 MCH 25.2 - 33.5 pg 24.6 (L) 24.8 (L) 25.0 (L) 25.0 (L) 24.7 (L) 25.0 (L) 25.0 (L) MCHC 28.4 - 34.8 g/dL 27.5 (L) 28.0 (L) 28.1 (L) 28.2 (L) 28.0 (L) 27.9 (L) 27.8 (L) MPV 8.1 - 13.5 fL 9.4 10.1 10.6 10.1 10.2 10.7 10.3 RDW 11.8 - 14.4 % 18.2 (H) 17.6 (H) 18.0 (H) 18.1 (H) 18.7 (H) 18.5 (H) 19.0 (H) Platelet Count 138 - 453 k/uL 162 166 161 144 135 (L) 151 154 Neutrophils % 36 - 65 % 73 (H) 66 (H) 63 61 69 (H) 69 (H) 69 (H) Lymphocyte % 24 - 43 % 18 (L) 24 25 28 21 (L) 22 (L) 19 (L) Monocytes % 3 - 12 % 7 8 8 7 7 6 8 Eosinophils % 1 - 4 % 1 1 2 2 2 2 2 Basophils % 0 - 2 % 0 0 1 1 0 0 1 Neutrophils Absolute 1.50 - 8.10 k/uL 5.18 4.23 4.04 4.02 4.07 4.14 4.83 Lymphocytes Absolute 1.10 - 3.70 k/uL 1.28 1.54 1.60 1.85 1.24 1.32 1.33 Monocytes Absolute 0.10 - 1.20 k/uL 0.50 0.51 0.51 0.46 0.41 0.36 0.56 Eosinophils Absolute 0.00 - 0.44 k/uL 0.07 0.06 0.13 0.13 0.12 0.12 0.14 Basophils Absolute 0.00 - 0.20 k/uL 0.00 0.00 0.06 0.07 0.00 0.00 0.07 Immature Granulocytes % 0 % 1 (H) 1 (H) 1 (H) 1 (H) 1 (H) 1 (H) 1 (H) Morphology HYPOCHROMIA PRESENT HYPOCHROMIA PRESENT HYPOCHROMIA PRESENT HYPOCHROMIA PRESENT Normal Normal Platelet scan shows Normal Platelets POIKILOCYTOSIS PRESENT Immature Granulocytes Absolute 0.00 - 0.30 k/uL 0.07 0.06 0.06 0.07 0.06 0.06 0.07 NRBC Automated 0.0 per 100 WBC 0.0 0.0 0.0 0.0 0.0 0.0 0.0 (H): Data is abnormally high (L): Data is abnormally low Latest Reference Range & Units 02/10/25 16:18 02/10/25 18:53 Troponin, High Sensitivity 0 - 22 ng/L 149 (HH) 131 (HH) (HH): Data is critically high Latest Reference Range & Units 02/10/25 16:18 NT Pro-BNP 0 - 125 pg/mL 147 (H) (H): Data is abnormally high Comprehensive Metabolic Profile: Latest Reference Range & Units 02/10/25 16:18 02/10/25 18:53 02/11/25 05:08 02/12/25 05:05 02/13/25 06:12 02/14/25 06:35 02/15/25 06:00 02/19/25 05:45 Sodium 136 - 145 mmol/L 140 140 141 139 140 141 141 Potassium 3.7 - 5.3 mmol/L 4.6 3.9 4.2 4.4 4.6 4.0 4.1 Chloride 98 - 107 mmol/L 91 (L) 96 (L) 96 (L) 96 (L) 96 (L) 96 (L) 100 CARBON DIOXIDE 20 - 31 mmol/L 41 (HH) 39 (H) 37 (H) 36 (H) 38 (H) 36 (H) 36 (H) BUN,BUNPL 8 - 23 mg/dL 14 14 15 14 16 16 15 Creatinine 0.70 - 1.20 mg/dL 0.5 (L) 0.4 (L) 0.5 (L) 0.5 (L) 0.5 (L) 0.5 (L) 0.5 (L) Bun/Cre 9 - 20 28 (H) 35 (H) 30 (H) 28 (H) 32 (H) 32 (H) 30 (H) Anion Gap 9 - 16 mmol/L 8 (L) 5 (L) 8 (L) 7 (L) 6 (L) 9 5 (L) Est, Glom Filt Rate >60 mL/min/1.73m2 >90 >90 >90 >90 >90 >90 >90 Glucose 74 - 99 mg/dL 182 (H) 107 (H) 121 (H) 117 (H) 109 (H) 122 (H) 121 (H) Calcium 8.6 - 10.4 mg/dL 9.5 8.7 9.0 9.1 9.0 8.7 8.6 Albumin/Globulin Ratio 1.0 - 2.5 1.8 Total Protein 6.6 - 8.7 g/dL 6.7 Troponin, High Sensitivity 0 - 22 ng/L 149 (HH) 131 (HH) NT Pro-BNP 0 - 125 pg/mL 147 (H) Albumin 3.5 - 5.2 g/dL 4.3 Alkaline Phosphatase 40 - 129 U/L 96 ALT 10 - 50 U/L 21 AST 10 - 50 U/L 24 Total Bilirubin 0.00 - 1.20 mg/dL 0.7 (HH): Data is critically high (L): Data is abnormally low (H): Data is abnormally high ABGs: Latest Reference Range & Units 02/19/25 06:39 02/20/25 05:32 pH, Arterial 7.35 - 7.45 7.318 (L) 7.368 pH, Art, Temp Adj 7.350 - 7.450 7.318 (L) 7.368 pCO2, Art, Temp Adj 35.0 - 45.0 77.6 (HH) 64.6 (HH) pCO2, Arterial 35 - 45 mmHg 77.6 (HH) 64.6 (HH) pO2, Art, Temp Adj 80.0 - 100.0 mmHg 69.9 (L) 88.0 pO2, Arterial 80.0 - 100.0 mmHg 69.9 (L) 88.0 HCO3, Arterial 22 - 26 mmol/L 38.9 (H) 36.3 (H) Positive Base Excess, Art 0.0 - 2.0 mmol/L 9.3 (H) 8.4 (H) O2 Sat, Arterial 95 - 98 % 91.8 (L) 96.2 Pt Temp 37.0 37.0 Sample Site Right Radial Artery Right Radial Artery O2 Device/Flow/% Cannula ROOM AIR Text for Respiratory Called to PROVIDER on 11/22/2024 at 06:42 Called to RN on 02/20/2025 at 05:34 (HH): Data is critically high (L): Data is abnormally low (H): Data is abnormally high (H): Data is abnormally high Latest Reference Range & Units 02/17/25 15:08 02/18/25 05:45 pH, Arterial 7.35 - 7.45 7.548 (H) 7.348 (L) pH, Art, Temp Adj 7.350 - 7.450 7.548 (HH) 7.348 (L) pCO2, Art, Temp Adj 35.0 - 45.0 32.1 (L) 72.7 (HH) pCO2, Arterial 35 - 45 mmHg 32.1 (L) 72.7 (HH) pO2, Art, Temp Adj 80.0 - 100.0 mmHg 86.4 93.7 pO2, Arterial 80.0 - 100.0 mmHg 86.4 93.7 HCO3, Arterial 22 - 26 mmol/L 27.3 (H) 39.1 (H) Positive Base Excess, Art 0.0 - 2.0 mmol/L 5.4 (H) 10.1 (H) O2 Sat, Arterial 95 - 98 % 97.6 96.5 Pt Temp 37.0 37.0 Sample Site Left Radial Artery Right Radial Artery O2 Device/Flow/% BIPAP BIPAP Text for Respiratory Called to RN on 02/18/2025 at 05:49 (HH): Data is critically high (H): Data is abnormally high (L): Data is abnormally low Latest Reference Range & Units 02/15/25 06:32 02/16/25 06:15 pH, Arterial 7.35 - 7.45 7.290 (L) 7.304 (L) pH, Art, Temp Adj 7.350 - 7.450 7.290 (LL) 7.304 (L) pCO2, Art, Temp Adj 35.0 - 45.0 85.6 (HH) 81.3 (HH) pCO2, Arterial 35 - 45 mmHg 85.6 (HH) 81.3 (HH) pO2, Art, Temp Adj 80.0 - 100.0 mmHg 66.0 (L) 64.9 (L) pO2, Arterial 80.0 - 100.0 mmHg 66.0 (L) 64.9 (L) HCO3, Arterial 22 - 26 mmol/L 40.2 (H) 39.5 (H) Positive Base Excess, Art 0.0 - 2.0 mmol/L 10.1 (H) 9.4 (H) O2 Sat, Arterial 95 - 98 % 91.2 (L) 89.6 (L) Pt Temp 37.0 37.0 Sample Site Right Brachial Artery Right Radial Artery O2 Device/Flow/% Cannula Cannula Text for Respiratory Called to RN on 02/15/2025 at 06:35 Called to RN on 02/16/2025 at 06:18 (LL): Data is critically low (HH): Data is critically high (L): Data is abnormally low (H): Data is abnormally high Latest Reference Range & Units 02/13/25 10:10 02/14/25 06:05 pH, Arterial 7.35 - 7.45 7.359 7.339 (L) pH, Art, Temp Adj 7.350 - 7.450 7.359 7.339 (L) pCO2, Art, Temp Adj 35.0 - 45.0 71.6 (HH) 74.2 (HH) pCO2, Arterial 35 - 45 mmHg 71.6 (HH) 74.2 (HH) pO2, Art, Temp Adj 80.0 - 100.0 mmHg 63.4 (L) 129.5 (H) pO2, Arterial 80.0 - 100.0 mmHg 63.4 (L) 129.5 (H) HCO3, Arterial 22 - 26 mmol/L 39.5 (H) 39.0 (H) Positive Base Excess, Art 0.0 - 2.0 mmol/L 10.6 (H) 9.8 (H) O2 Sat, Arterial 95 - 98 % 90.5 (L) 98.3 (H) (HH): Data is critically high (L): Data is abnormally low (H): Data is abnormally high Latest Reference Range & Units 02/11/25 09:04 02/11/25 11:59 02/12/25 07:21 pH, Arterial 7.35 - 7.45 7.343 (L) 7.335 (L) pH, Art, Temp Adj 7.350 - 7.450 7.343 (L) 7.335 (L) pCO2, Art, Temp Adj 35.0 - 45.0 64.9 (HH) 65.4 (HH) pCO2, Arterial 35 - 45 mmHg 64.9 (HH) 65.4 (HH) pO2, Art, Temp Adj 80.0 - 100.0 mmHg 73.1 (L) 80.8 pO2, Arterial 80.0 - 100.0 mmHg 73.1 (L) 80.8 HCO3, Arterial 22 - 26 mmol/L 34.5 (H) 34.1 (H) Positive Base Excess, Art 0.0 - 2.0 mmol/L 6.3 (H) 5.8 (H) O2 Sat, Arterial 95 - 98 % 93.4 (L) 94.9 (L) pH, Galo 7.32 - 7.42 7.321 pH, Galo, Temp Adj 7.320 - 7.420 7.321 pCO2, Galo 39 - 55 mm Hg 82.0 (HH) pO2, Galo 30.0 - 50.0 mm Hg 35.3 pO2, Galo, Temp Adj 30.0 - 50.0 mmHg 35.3 Bicarbonate, Venous 24.0 - 30.0 mmol/L 41.4 (H) Positive Base Excess, Galo 0.0 - 2.0 mmol/L 11.3 (H) O2 Saturation Venous 60.0 - 85.0 % 59.9 (L) Pt Temp 37.0 37.0 37.0 Sample Site Right Radial Artery Right Brachial Artery Set Rate 1 1 O2 Device/Flow/% Cannula Cannula HEATED HIGH FLOW Text for Respiratory Called to RN on 02/11/2025 at 09:07 Called to RN on 02/11/2025 at 12:02 Called to RN on 02/12/2025 at 07:24 (HH): Data is critically high (L): Data is abnormally low (H): Data is abnormally high Latest Reference Range & Units 02/10/25 16:26 02/10/25 21:01 02/10/25 23:05 02/11/25 05:20 pH, Arterial 7.35 - 7.45 7.389 pH, Art, Temp Adj 7.350 - 7.450 7.389 pCO2, Art, Temp Adj 35.0 - 45.0 73.5 (HH) pCO2, Arterial 35 - 45 mmHg 73.5 (HH) pO2, Art, Temp Adj 80.0 - 100.0 mmHg 66.6 (L) pO2, Arterial 80.0 - 100.0 mmHg 66.6 (L) HCO3, Arterial 22 - 26 mmol/L 43.4 (H) Positive Base Excess, Art 0.0 - 2.0 mmol/L 14.4 (H) O2 Sat, Arterial 95 - 98 % 92.2 (L) pH, Galo 7.32 - 7.42 7.368 7.408 7.336 pH, Galo, Temp Adj 7.320 - 7.420 7.368 7.408 7.336 pCO2, Galo 39 - 55 mm Hg 72.0 (HH) 62.0 (HH) 76.1 (HH) pO2, Galo 30.0 - 50.0 mm Hg 26.0 (L) 40.2 92.2 (H) pO2, Galo, Temp Adj 30.0 - 50.0 mmHg 26.0 (L) 40.2 92.2 (H) Bicarbonate, Venous 24.0 - 30.0 mmol/L 40.5 (H) 38.2 (H) 39.8 (H) Positive Base Excess, Galo 0.0 - 2.0 mmol/L 11.7 (H) 10.8 (H) 10.4 (H) O2 Saturation Venous 60.0 - 85.0 % 43.3 (L) 74.0 96.2 (H) Pt Temp 37.0 37.0 37.0 37.0 Sample Site Left Brachial Artery O2 Device/Flow/% Cannula BIPAP BIPAP Text for Respiratory Called to PROVIDER on 02/10/2025 at 16:28 Called to PROVIDER on 02/10/2025 at 21:02 Called to PROVIDER on 02/10/2025 at 23:07 Called to RN on 02/11/2025 at 05:22 (HH): Data is critically high (L): Data is abnormally low (H): Data is abnormally high Radiology/Imaging: XR CHEST (2 VW) Final Result No acute cardiopulmonary disease. Stable subsegmental atelectasis on the right. CT CHEST PULMONARY EMBOLISM W CONTRAST Final Result 1. No evidence of pulmonary embolism or acute pulmonary abnormality. 2. Age-indeterminate T6 compression deformity, but likely chronic. 3. Gallbladder stones versus sludge. 4. Lobular liver contour, raising suspicion for cirrhosis or chronic liver disease. XR CHEST PORTABLE Final Result No acute cardiopulmonary process. ASSESSMENT / PLAN: Primary Problem(s): Acute respiratory failure with hypoxia and hypercapnia (HCC) Differential diagnoses: Pneumonia, viral illness, COPD exacerbation, CHF Condition is an acute or chronic illness or injury that poses threat to life or bodily function Condition is stable Treatment plan: Appreciate pulmonology Discussed with Dr. Perkins/Dr Russell/Dr Cheek Recommendations: BiPAP, intubation, palliative care. Trilogy at home-Discussed with DR Russell. Settings: Cancel-Mas Pressure Support-14 cwp, Min PS 8 cwp, Max EPAP 8 cwp, Mi EPAP 4 cwp, TV 400-500 ml, RR 10 with 1L of Oxygen 02/17/2025-Will reach out to Pulm--ABGs worsening despite changes RT has made Changed to BiPAP 09/20 with a backup rate 12. May go up to an IPAP of 14. Clock if this does not work then only other option is tracheostomy, ventilator for palliative care Now qualifies for 2L of oxygen. I did call and spoke with his Barrel Loader, Dr Church at [place] and discussed his case on 02/17/2025. Likely related to MD due to no infectious process Trend ABGs, no further VBG's Respiratory viral panel-negative Monitor labs and replace electrolytes Nocturnal Pulse oximetry completed Imaging: no further imaging studies ordered today Medications: Continue nebs Continue Zpak Continue Zyrtec Medication Monitoring / High Risk Medications: none Chronic diastolic CHF Condition is a chronic stable condition Treatment plan: Monitor labs and replace electrolytes I&O, daily weights Imaging: no further imaging studies ordered today Last echo from 12/16/2024 showed an EF of 55 to 60%, mildly increased wall thickness, grade 1 diastolic dysfunction with normal LAP, moderate to severe aortic stenosis Medications: Continue Entresto Continue Toprol-XL Continue Lasix Nutrition status: Well developed, well nourished with no malnutrition I/O Daily Weight Nutritional Supplements as tolerated Fish Culturist consult initiated MALNUTRITION ASSESSMENT AND PLAN The following was documented by the Dietitian: Malnutrition Assessment Context of Malnutrition: Acute Illness (02/11/25823) Acute Illness - Energy Intake : No decrease in energy intake (02/11/25823) Acute Illness - Weight Loss : No weight loss (02/11/25823) Acute Illness - Body Fat Loss: No body fat loss (02/11/25823) Acute Illness - Muscle Mass Loss: No muscle mass loss (02/11/25823) Acute Illness - Fluid Accumulation : Moderate to Severe (02/11/25823) Acute Illness - Fluid Accumulation Location: Extremities (02/11/25823) Acute Illness - Hatchery Laborer Strength: Not Performed (02/11/25823) Acute Illness - Malnutrition Score: 7 (02/11/25823) Malnutrition Status: No malnutrition (02/11/25823) I agree with the dietitian's malnutrition assessment. Medical Nutrition Therapy: continue current nutrition therapy Hospital Prophylaxis: DVT: Lovenox Stress Ulcer: PPI Disposition: Shared decision making: All test results, treatment options and disposition options were discussed with the patient today Social determinants of health that may impact management: none Code status: Full Code Disposition: Discharge plan is home MIPS Advanced Care Planning documentation: [x] I have confirmed that the patient's Advance Care Plan is present, Code Status is documented, or surrogate decision maker is listed in the patient's medical record [If yes , STOP HERE] [] The patient's Advance Care Plan is NOT present because: [] I confirmed today that the patient does not wish or was not able to name a surrogate decision maker or provide and advance care plan. [] Hospice care is currently being provided or has been provided within the calendar year. [] I did NOT confirm today the presence of an Advance Care Plan or surrogate decision maker documented within the patient's medical record. [DOES NOT SATISFY MIPS PERFORMANCE] LORENA Brown CNP , LORENA-MAIL INSERTER-C 02/20/2025 7:33 AM FACE TO FACE: Patient qualified for home O2. Discussed with patient the medical necessity of home O2. Patient voiced understanding and agreement. LORENA Brown CNP, LORENA, MAIL INSERTER-C 02/20/2025, 7:33 AM This patient has Chronic Respiratory Failure secondary to Muscular Dystrophy, requiring noninvasive ventilation therapy in the home to maintain or optimize an acceptable PCO2 level. If the PCO2 level is not managed, this could cause harm or even . This could also reduce respiratory readmissions. BiPAP has proven to be ineffective in maintaining the patients PCO2 levels, now requiring noninvasive therapy. Cosigned by Fabian Avery MD at 02/20/2025 9:00 AM EDT Associated attestation - Fabian Avery MD - 02/20/2025 9:00 AM EDT Attending Supervising Physician s Attestation Statement I have personally evaluated and examined the patient [id number] in conjunction with the nurse practitioner. I agree with management and disposition of the patient. Examined and Reviewed plan of care with MAIL INSERTER. Directions and discussion about care and plans. Disposition including length of stay was reviewed. Nutritional status, advanced directive and old records reviewed. In addition, Consultations and pharmacy management including drug therapy was reviewed. Therapy goals along with occupational therapy was reviewed & integrated into management including disposition. The patient was seen examined with the nurse practitioner & all direct care was reviewed with the nurse practitioner at the bedside with the patient. Electronically signed by Fabian Avery MD Vitals and assessment completed at this time as charted. Pt resting in bed on 2L nasal cannula at 95% spo2. Has a weak moist cough, states it is productive in yellow/white appearance. Otherwise states he is feeling good. Edema noted in BLE. Lung sounds diminished. Pt denies other concerns. Fall precautions in place. Call light within reach. Pt is resting in bed with BIPAP in place at 18/6 %28. Remains a/o x4 and denies pain. Bed alarm on and call light in reach. Pt is up to chair with family at bedside. A/O x4 and denies pain. BLE edema noted and charted. VS and assessment complete. 2L nc maintained. Call light in reach. Physical Therapy Facility/Department: [facility] Daily Treatment Note NAME: Evgeny Delgado : 1955 Date of Service: 2025 Discharge Recommendations: Continue to assess pending progress Patient Diagnosis(es): The primary encounter diagnosis was Acute respiratory failure with hypoxia and hypercapnia (HCC). Diagnoses of Muscular dystrophies (HCC), Chronic diastolic heart failure (HCC), and Chronic respiratory failure with hypoxia and hypercapnia (HCC) were also pertinent to this visit. Assessment Assessment: Transfers: SUP/Mod I. Gait with 4WW, SUP/Mod I 90ftx1,15ftx1 with no noted LOB. Seated exercises B LE x20. Standing sink exercises B LE x10. Standing urinal us. Activity Tolerance: Patient tolerated treatment well Plan Physical Therapy Plan General Plan: 2 times a day 7 days a week Specific Instructions for Next Treatment: 1x per week on weekends and holidays Current Treatment Recommendations: Strengthening;ROM;Balance training;Functional mobility training;Transfer training;Gait training;Stair training;Home exercise program;Safety education & training;Patient/Caregiver education & training;Equipment evaluation, education, & procurement;Positioning;Therapeuti c activities Restrictions Restrictions/Precautions Restrictions/Precautions: General Precautions, Fall Risk Required Braces or Orthoses?: Yes Required Braces or Orthoses Right Lower Extremity Brace: Ankle Foot Orthotics Left Lower Extremity Brace: Dinorah Foot Orthotics Subjective Subjective Subjective: Pt. up in chair upon arrival, agreeable to therapy at this time. Pain: denies Objective Bed Mobility Training Bed Mobility Training: No Transfer Training Transfer Training: Yes Overall Level of Assistance: Supervision;Modified independent Interventions: Verbal cues Sit to Stand: Supervision;Modified independent Stand to Sit: Supervision;Modified independent Gait Gait Training: Yes Overall Level of Assistance: Supervision;Modified independent Distance (ft): 105 Feet Assistive Device: Walker, rollator;Gait belt Interventions: Safety awareness training Speed/Diane: Slow Step Length: Left shortened;Right shortened Swing Pattern: Left asymmetrical;Right asymmetrical Gait Abnormalities: Hip hike;Foot drop PT Exercises Exercise Treatment: Seated exercises B LE x20. Standing sink exercises B LE x10 Safety Devices Type of Devices: Call light within reach;Chair alarm in place;Left in chair;All fall risk precautions in place Goals Short Term Goals Time Frame for Short Term Goals: 20 visits Short Term Goal 1: Patient will tolerate 20-30' ther-ex in order to increase endurance and ease ADLS Short Term Goal 2: Patient will ascend/descend 4 steps with handrail with supervision assistance in order to safely enter/exit the home Short Term Goal 3: Patient will complete bed mobility and transfers independently in order to return to PLOF Short Term Goal 4: Patient will ambulate 200 feet with rollator with supervision assistance in order to return to PLOF Education Patient Education Education Given To: Patient Education Provided: Role of Therapy;Plan of Care;Home Exercise Program Education Method: Verbal Barriers to Learning: None Education Outcome: Verbalized understanding;Demonstrated understanding Therapy Time Individual Concurrent Group Co-treatment Time In 1103 Time Out 1137 Minutes 34 Silvia Stearns PTA Cosigned by Lee Andrews PT at 2025 3:24 PM EDT Occupational Therapy Facility/Department: [facility] Daily Treatment Note NAME: Egveny Delgado : 1955 Date of Service: 2025 Discharge Recommendations: Continue to assess pending progress Patient Diagnosis(es): The primary encounter diagnosis was Acute respiratory failure with hypoxia and hypercapnia (HCC). Diagnoses of Muscular dystrophies (HCC), Chronic diastolic heart failure (HCC), and Chronic respiratory failure with hypoxia and hypercapnia (HCC) were also pertinent to this visit. Assessment Activity Tolerance: Patient tolerated treatment well Discharge Recommendations: Continue to assess pending progress Plan Occupational Therapy Plan Times Per Day: Once a day Days Per Week: 7 Days Current Treatment Recommendations: Strengthening;Balance training;Endurance training;Functional mobility training;Patient/Caregiver education & training;Safety education & training;Self-Care / ADL;Equipment evaluation, education, & procurement;ROM Restrictions General, fall risk. Subjective Subjective: Pt sitting up in bedside chair upon arrival. Pt agreed to participate in therapy session. Pain: Pt had no complaints of pain. Objective Vitals OT Exercises Exercise Treatment: Pt completed BUE ther ex to increase strength needed for fxl tasks. Pt completed red digiflex x20, yellow flex bar bends and twists x20, and 1# free weight x20 x all planes. Pt req RBs as needed secondary to fatigue. Safety Devices Type of Devices: Call light within reach;Chair alarm in place;Left in chair;All fall risk precautions in place Patient Education Education Given To: Patient Education Provided: Role of Therapy;Plan of Care;Home Exercise Program Education Method: Verbal Barriers to Learning: None Education Outcome: Verbalized understanding Goals Short Term Goals Time Frame for Short Term Goals: 21 visits Short Term Goal 1: Patient to be educated on d/c folder, AE/DME and home safety to ensure safe and indep return home. Short Term Goal 2: Patient to safely complete ADL routine c mod I c use of AE/DME as needed to ensure safe and independnet return home. Short Term Goal 3: Patient to engage in 15 minutes of ther ex/ther act c no more than 2 RB to improve strength and activity tolerance for ADL. AM-PAC - ADL Therapy Time Individual Concurrent Group Co-treatment Time In 1258 Time Out 1322 Minutes 24 BRANDY Alvarado S/BRANDY Cosigned by Fauzia Mejia OTR/L at 02/21/2025 12:54 PM EDT Images from the original note were not included. IT NETWORK ADMINISTRATOR - Progress Note Patient - Evgeny Delgado Date of Admission - 02/10/2025 4:04 PM Date of Evaluation - 2025 Hospital Day - 9 SUBJECTIVE: The Evgeny Delgado is a 70 y.o. male sitting up in chair on 2L of oxygen. No distress or complaints. Continues to await equipment for home. ROS: Constitutional: negative for fevers, and negative for chills. Respiratory: negative for shortness of breath, positive for cough, and negative for wheezing Cardiovascular: negative for chest pain, and negative for palpitations Gastrointestinal: negative for abdominal pain, negative for nausea,negative for vomiting, negative for diarrhea, and negative for constipation All other systems were reviewed with the patient and are negative unless otherwise stated in HPI. OBJECTIVE: VITAL SIGNS: Patient Vitals for the past 8 hrs: BP Temp Temp src Pulse Resp SpO2 Weight 02/19/25 0628 -- -- -- -- -- 93 % -- 02/19/25 0618 109/66 97.9 F (36.6 C) Temporal 75 20 95 % -- 02/19/25 0604 -- -- -- -- -- -- 93.4 kg (206 lb) 02/19/25 0148 -- -- -- 74 18 92 % -- Temp: 97.9 F (36.6 C) Temp range: Temp Av.8 F (36.6 C) Min: 97.7 F (36.5 C) Max: 97.9 F (36.6 C) BP: 109/66 BP Range: Systolic (24hrs), Av , Min:99 , Max:109 Diastolic (24hrs), Av, Min:66, Max:87 Pulse: 75 Pulse Range: Pulse Av.5 Min: 72 Max: 77 Respirations: 20 Resp Range: Resp Av.7 Min: 18 Max: 20 SpO2: 93 % on supplemental O2 SpO2 range: SpO2 Av.9 % Min: 92 % Max: 98 % Weight Wt Readings from Last 3 Encounters: 02/19/25 93.4 kg (206 lb) 12/16/24 90.3 kg (199 lb) 09/17/24 90.3 kg (199 lb) Body mass index is 30.41 kg/m . 24HR INTAKE/OUTPUT: Intake/Output Summary (Last 24 hours) at 2025 0834 Last data filed at 2025 0604 Gross per 24 hour Intake 1080 ml Output 3475 ml Net -2395 ml Date 02/19/25 0000 - 02/19/25 2359 Shift [id number] 2586-8481 5191-9296 24 Hour Total INTAKE Shift Total(mL/kg) OUTPUT Urine(mL/kg/hr) 500(0.7) 500 Shift Total(mL/kg) 500(5.5) 500(5.5) Weight (kg) 90.9 90.9 90.9 90.9 PHYSICAL EXAM: GEN: Awake and following commands: [] No [x] Yes MENTAL STATUS: alert and oriented x3. DISTRESS: Acute respiratory distress: [x] No [] Yes EYES: EOMI, pupils equal NECK: Supple. No lymphadenopathy. No carotid bruit CVS: regular rate and rhythm, no audible murmur PULM: diminished but clear, no acute respiratory distress ABD: Bowels sounds normal. Abdomen is soft. No distention. no tenderness to palpation. EXT: no edema bilaterally . No calf tenderness. NEURO: Moves all extremities. Motor and sensory are grossly intact SKIN: No rashes. No skin lesions. DATA: Complete Blood Count: Latest Reference Range & Units 02/10/25 16:18 02/11/25 05:08 02/12/25 05:05 02/13/25 06:12 02/14/25 06:35 02/15/25 06:00 02/19/25 05:45 WBC 3.5 - 11.3 k/uL 7.1 6.4 6.4 6.6 5.9 6.0 7.0 RBC 4.21 - 5.77 m/uL 5.94 (H) 5.17 5.15 5.59 5.46 5.07 4.84 Hemoglobin Quant 13.0 - 17.0 g/dL 14.6 12.8 (L) 12.9 (L) 14.0 13.5 12.7 (L) 12.1 (L) Hematocrit 40.7 - 50.3 % 53.0 (H) 45.7 45.9 49.6 48.3 45.6 43.5 MCV 82.6 - 102.9 fL 89.2 88.4 89.1 88.7 88.5 89.9 89.9 MCH 25.2 - 33.5 pg 24.6 (L) 24.8 (L) 25.0 (L) 25.0 (L) 24.7 (L) 25.0 (L) 25.0 (L) MCHC 28.4 - 34.8 g/dL 27.5 (L) 28.0 (L) 28.1 (L) 28.2 (L) 28.0 (L) 27.9 (L) 27.8 (L) MPV 8.1 - 13.5 fL 9.4 10.1 10.6 10.1 10.2 10.7 10.3 RDW 11.8 - 14.4 % 18.2 (H) 17.6 (H) 18.0 (H) 18.1 (H) 18.7 (H) 18.5 (H) 19.0 (H) Platelet Count 138 - 453 k/uL 162 166 161 144 135 (L) 151 154 Neutrophils % 36 - 65 % 73 (H) 66 (H) 63 61 69 (H) 69 (H) 69 (H) Lymphocyte % 24 - 43 % 18 (L) 24 25 28 21 (L) 22 (L) 19 (L) Monocytes % 3 - 12 % 7 8 8 7 7 6 8 Eosinophils % 1 - 4 % 1 1 2 2 2 2 2 Basophils % 0 - 2 % 0 0 1 1 0 0 1 Neutrophils Absolute 1.50 - 8.10 k/uL 5.18 4.23 4.04 4.02 4.07 4.14 4.83 Lymphocytes Absolute 1.10 - 3.70 k/uL 1.28 1.54 1.60 1.85 1.24 1.32 1.33 Monocytes Absolute 0.10 - 1.20 k/uL 0.50 0.51 0.51 0.46 0.41 0.36 0.56 Eosinophils Absolute 0.00 - 0.44 k/uL 0.07 0.06 0.13 0.13 0.12 0.12 0.14 Basophils Absolute 0.00 - 0.20 k/uL 0.00 0.00 0.06 0.07 0.00 0.00 0.07 Immature Granulocytes % 0 % 1 (H) 1 (H) 1 (H) 1 (H) 1 (H) 1 (H) 1 (H) Morphology HYPOCHROMIA PRESENT HYPOCHROMIA PRESENT HYPOCHROMIA PRESENT HYPOCHROMIA PRESENT Normal Normal Platelet scan shows Normal Platelets POIKILOCYTOSIS PRESENT Immature Granulocytes Absolute 0.00 - 0.30 k/uL 0.07 0.06 0.06 0.07 0.06 0.06 0.07 NRBC Automated 0.0 per 100 WBC 0.0 0.0 0.0 0.0 0.0 0.0 0.0 (H): Data is abnormally high (L): Data is abnormally low Latest Reference Range & Units 02/10/25 16:18 02/10/25 18:53 Troponin, High Sensitivity 0 - 22 ng/L 149 (HH) 131 (HH) (HH): Data is critically high Latest Reference Range & Units 02/10/25 16:18 NT Pro-BNP 0 - 125 pg/mL 147 (H) (H): Data is abnormally high Comprehensive Metabolic Profile: Latest Reference Range & Units 02/10/25 16:18 02/10/25 18:53 02/11/25 05:08 02/12/25 05:05 02/13/25 06:12 02/14/25 06:35 02/15/25 06:00 02/19/25 05:45 Sodium 136 - 145 mmol/L 140 140 141 139 140 141 141 Potassium 3.7 - 5.3 mmol/L 4.6 3.9 4.2 4.4 4.6 4.0 4.1 Chloride 98 - 107 mmol/L 91 (L) 96 (L) 96 (L) 96 (L) 96 (L) 96 (L) 100 CARBON DIOXIDE 20 - 31 mmol/L 41 (HH) 39 (H) 37 (H) 36 (H) 38 (H) 36 (H) 36 (H) BUN,BUNPL 8 - 23 mg/dL 14 14 15 14 16 16 15 Creatinine 0.70 - 1.20 mg/dL 0.5 (L) 0.4 (L) 0.5 (L) 0.5 (L) 0.5 (L) 0.5 (L) 0.5 (L) Bun/Cre 9 - 20 28 (H) 35 (H) 30 (H) 28 (H) 32 (H) 32 (H) 30 (H) Anion Gap 9 - 16 mmol/L 8 (L) 5 (L) 8 (L) 7 (L) 6 (L) 9 5 (L) Est, Glom Filt Rate >60 mL/min/1.73m2 >90 >90 >90 >90 >90 >90 >90 Glucose 74 - 99 mg/dL 182 (H) 107 (H) 121 (H) 117 (H) 109 (H) 122 (H) 121 (H) Calcium 8.6 - 10.4 mg/dL 9.5 8.7 9.0 9.1 9.0 8.7 8.6 Albumin/Globulin Ratio 1.0 - 2.5 1.8 Total Protein 6.6 - 8.7 g/dL 6.7 Troponin, High Sensitivity 0 - 22 ng/L 149 (HH) 131 (HH) NT Pro-BNP 0 - 125 pg/mL 147 (H) Albumin 3.5 - 5.2 g/dL 4.3 Alkaline Phosphatase 40 - 129 U/L 96 ALT 10 - 50 U/L 21 AST 10 - 50 U/L 24 Total Bilirubin 0.00 - 1.20 mg/dL 0.7 (HH): Data is critically high (L): Data is abnormally low (H): Data is abnormally high ABGs: Latest Reference Range & Units 02/19/25 06:39 pH, Arterial 7.35 - 7.45 7.318 (L) pH, Art, Temp Adj 7.350 - 7.450 7.318 (L) pCO2, Art, Temp Adj 35.0 - 45.0 77.6 (HH) pCO2, Arterial 35 - 45 mmHg 77.6 (HH) pO2, Art, Temp Adj 80.0 - 100.0 mmHg 69.9 (L) pO2, Arterial 80.0 - 100.0 mmHg 69.9 (L) HCO3, Arterial 22 - 26 mmol/L 38.9 (H) Positive Base Excess, Art 0.0 - 2.0 mmol/L 9.3 (H) O2 Sat, Arterial 95 - 98 % 91.8 (L) Pt Temp 37.0 Sample Site Right Radial Artery O2 Device/Flow/% Cannula Text for Respiratory Called to PROVIDER on 11/22/2024 at 06:42 (HH): Data is critically high (L): Data is abnormally low (H): Data is abnormally high Latest Reference Range & Units 02/17/25 15:08 02/18/25 05:45 pH, Arterial 7.35 - 7.45 7.548 (H) 7.348 (L) pH, Art, Temp Adj 7.350 - 7.450 7.548 (HH) 7.348 (L) pCO2, Art, Temp Adj 35.0 - 45.0 32.1 (L) 72.7 (HH) pCO2, Arterial 35 - 45 mmHg 32.1 (L) 72.7 (HH) pO2, Art, Temp Adj 80.0 - 100.0 mmHg 86.4 93.7 pO2, Arterial 80.0 - 100.0 mmHg 86.4 93.7 HCO3, Arterial 22 - 26 mmol/L 27.3 (H) 39.1 (H) Positive Base Excess, Art 0.0 - 2.0 mmol/L 5.4 (H) 10.1 (H) O2 Sat, Arterial 95 - 98 % 97.6 96.5 Pt Temp 37.0 37.0 Sample Site Left Radial Artery Right Radial Artery O2 Device/Flow/% BIPAP BIPAP Text for Respiratory Called to RN on 02/18/2025 at 05:49 (HH): Data is critically high (H): Data is abnormally high (L): Data is abnormally low Latest Reference Range & Units 02/15/25 06:32 02/16/25 06:15 pH, Arterial 7.35 - 7.45 7.290 (L) 7.304 (L) pH, Art, Temp Adj 7.350 - 7.450 7.290 (LL) 7.304 (L) pCO2, Art, Temp Adj 35.0 - 45.0 85.6 (HH) 81.3 (HH) pCO2, Arterial 35 - 45 mmHg 85.6 (HH) 81.3 (HH) pO2, Art, Temp Adj 80.0 - 100.0 mmHg 66.0 (L) 64.9 (L) pO2, Arterial 80.0 - 100.0 mmHg 66.0 (L) 64.9 (L) HCO3, Arterial 22 - 26 mmol/L 40.2 (H) 39.5 (H) Positive Base Excess, Art 0.0 - 2.0 mmol/L 10.1 (H) 9.4 (H) O2 Sat, Arterial 95 - 98 % 91.2 (L) 89.6 (L) Pt Temp 37.0 37.0 Sample Site Right Brachial Artery Right Radial Artery O2 Device/Flow/% Cannula Cannula Text for Respiratory Called to RN on 02/15/2025 at 06:35 Called to RN on 02/16/2025 at 06:18 (LL): Data is critically low (HH): Data is critically high (L): Data is abnormally low (H): Data is abnormally high Latest Reference Range & Units 02/13/25 10:10 02/14/25 06:05 pH, Arterial 7.35 - 7.45 7.359 7.339 (L) pH, Art, Temp Adj 7.350 - 7.450 7.359 7.339 (L) pCO2, Art, Temp Adj 35.0 - 45.0 71.6 (HH) 74.2 (HH) pCO2, Arterial 35 - 45 mmHg 71.6 (HH) 74.2 (HH) pO2, Art, Temp Adj 80.0 - 100.0 mmHg 63.4 (L) 129.5 (H) pO2, Arterial 80.0 - 100.0 mmHg 63.4 (L) 129.5 (H) HCO3, Arterial 22 - 26 mmol/L 39.5 (H) 39.0 (H) Positive Base Excess, Art 0.0 - 2.0 mmol/L 10.6 (H) 9.8 (H) O2 Sat, Arterial 95 - 98 % 90.5 (L) 98.3 (H) (HH): Data is critically high (L): Data is abnormally low (H): Data is abnormally high Latest Reference Range & Units 02/11/25 09:04 02/11/25 11:59 02/12/25 07:21 pH, Arterial 7.35 - 7.45 7.343 (L) 7.335 (L) pH, Art, Temp Adj 7.350 - 7.450 7.343 (L) 7.335 (L) pCO2, Art, Temp Adj 35.0 - 45.0 64.9 (HH) 65.4 (HH) pCO2, Arterial 35 - 45 mmHg 64.9 (HH) 65.4 (HH) pO2, Art, Temp Adj 80.0 - 100.0 mmHg 73.1 (L) 80.8 pO2, Arterial 80.0 - 100.0 mmHg 73.1 (L) 80.8 HCO3, Arterial 22 - 26 mmol/L 34.5 (H) 34.1 (H) Positive Base Excess, Art 0.0 - 2.0 mmol/L 6.3 (H) 5.8 (H) O2 Sat, Arterial 95 - 98 % 93.4 (L) 94.9 (L) pH, Galo 7.32 - 7.42 7.321 pH, Galo, Temp Adj 7.320 - 7.420 7.321 pCO2, Galo 39 - 55 mm Hg 82.0 (HH) pO2, Galo 30.0 - 50.0 mm Hg 35.3 pO2, Galo, Temp Adj 30.0 - 50.0 mmHg 35.3 Bicarbonate, Venous 24.0 - 30.0 mmol/L 41.4 (H) Positive Base Excess, Galo 0.0 - 2.0 mmol/L 11.3 (H) O2 Saturation Venous 60.0 - 85.0 % 59.9 (L) Pt Temp 37.0 37.0 37.0 Sample Site Right Radial Artery Right Brachial Artery Set Rate 1 1 O2 Device/Flow/% Cannula Cannula HEATED HIGH FLOW Text for Respiratory Called to RN on 02/11/2025 at 09:07 Called to RN on 02/11/2025 at 12:02 Called to RN on 02/12/2025 at 07:24 (HH): Data is critically high (L): Data is abnormally low (H): Data is abnormally high Latest Reference Range & Units 02/10/25 16:26 02/10/25 21:01 02/10/25 23:05 02/11/25 05:20 pH, Arterial 7.35 - 7.45 7.389 pH, Art, Temp Adj 7.350 - 7.450 7.389 pCO2, Art, Temp Adj 35.0 - 45.0 73.5 (HH) pCO2, Arterial 35 - 45 mmHg 73.5 (HH) pO2, Art, Temp Adj 80.0 - 100.0 mmHg 66.6 (L) pO2, Arterial 80.0 - 100.0 mmHg 66.6 (L) HCO3, Arterial 22 - 26 mmol/L 43.4 (H) Positive Base Excess, Art 0.0 - 2.0 mmol/L 14.4 (H) O2 Sat, Arterial 95 - 98 % 92.2 (L) pH, Galo 7.32 - 7.42 7.368 7.408 7.336 pH, Galo, Temp Adj 7.320 - 7.420 7.368 7.408 7.336 pCO2, Galo 39 - 55 mm Hg 72.0 (HH) 62.0 (HH) 76.1 (HH) pO2, Galo 30.0 - 50.0 mm Hg 26.0 (L) 40.2 92.2 (H) pO2, Galo, Temp Adj 30.0 - 50.0 mmHg 26.0 (L) 40.2 92.2 (H) Bicarbonate, Venous 24.0 - 30.0 mmol/L 40.5 (H) 38.2 (H) 39.8 (H) Positive Base Excess, Galo 0.0 - 2.0 mmol/L 11.7 (H) 10.8 (H) 10.4 (H) O2 Saturation Venous 60.0 - 85.0 % 43.3 (L) 74.0 96.2 (H) Pt Temp 37.0 37.0 37.0 37.0 Sample Site Left Brachial Artery O2 Device/Flow/% Cannula BIPAP BIPAP Text for Respiratory Called to PROVIDER on 02/10/2025 at 16:28 Called to PROVIDER on 02/10/2025 at 21:02 Called to PROVIDER on 02/10/2025 at 23:07 Called to RN on 02/11/2025 at 05:22 (HH): Data is critically high (L): Data is abnormally low (H): Data is abnormally high Radiology/Imaging: XR CHEST (2 VW) Final Result No acute cardiopulmonary disease. Stable subsegmental atelectasis on the right. CT CHEST PULMONARY EMBOLISM W CONTRAST Final Result 1. No evidence of pulmonary embolism or acute pulmonary abnormality. 2. Age-indeterminate T6 compression deformity, but likely chronic. 3. Gallbladder stones versus sludge. 4. Lobular liver contour, raising suspicion for cirrhosis or chronic liver disease. XR CHEST PORTABLE Final Result No acute cardiopulmonary process. ASSESSMENT / PLAN: Primary Problem(s): Acute respiratory failure with hypoxia and hypercapnia (HCC) Differential diagnoses: Pneumonia, viral illness, COPD exacerbation, CHF Condition is an acute or chronic illness or injury that poses threat to life or bodily function Condition is stable Treatment plan: Appreciate pulmonology Discussed with Dr. Perkins/Dr Russell/Dr Cheek Recommendations: BiPAP, intubation, palliative care. Trilogy at home-Discussed with DR Russell. Settings: Cancel-Mas Pressure Support-14 cwp, Min PS 8 cwp, Max EPAP 8 cwp, Mi EPAP 4 cwp, TV 400-500 ml, RR 10 with 1L of Oxygen 02/17/2025-Will reach out to Pulm--ABGs worsening despite changes RT has made Changed to BiPAP 12/6 with a backup rate 12. May go up to an IPAP of 14. Clock if this does not work then only other option is tracheostomy, ventilator for palliative care Now qualifies for 2L of oxygen. I did call and spoke with his Barrel Loader, Dr Church at [place] and discussed his case on 02/17/2025. Likely related to MD due to no infectious process Trend ABGs, no further VBG's Respiratory viral panel-negative Monitor labs and replace electrolytes Nocturnal Pulse oximetry completed Imaging: no further imaging studies ordered today Medications: Continue nebs Start Zpak Start Zyrtec Medication Monitoring / High Risk Medications: none Chronic diastolic CHF Condition is a chronic stable condition Treatment plan: Monitor labs and replace electrolytes I&O, daily weights Imaging: no further imaging studies ordered today Last echo from 12/16/2024 showed an EF of 55 to 60%, mildly increased wall thickness, grade 1 diastolic dysfunction with normal LAP, moderate to severe aortic stenosis Medications: Continue Entresto Continue Toprol-XL Continue Lasix Nutrition status: Well developed, well nourished with no malnutrition I/O Daily Weight Nutritional Supplements as tolerated Fish Culturist consult initiated MALNUTRITION ASSESSMENT AND PLAN The following was documented by the Dietitian: Malnutrition Assessment Context of Malnutrition: Acute Illness (02/11/25823) Acute Illness - Energy Intake : No decrease in energy intake (02/11/25823) Acute Illness - Weight Loss : No weight loss (02/11/25823) Acute Illness - Body Fat Loss: No body fat loss (02/11/25823) Acute Illness - Muscle Mass Loss: No muscle mass loss (02/11/25823) Acute Illness - Fluid Accumulation : Moderate to Severe (02/11/25823) Acute Illness - Fluid Accumulation Location: Extremities (02/11/25823) Acute Illness - Hatchery Laborer Strength: Not Performed (02/11/25823) Acute Illness - Malnutrition Score: 7 (02/11/25823) Malnutrition Status: No malnutrition (02/11/25823) I agree with the dietitian's malnutrition assessment. Medical Nutrition Therapy: continue current nutrition therapy Hospital Prophylaxis: DVT: Lovenox Stress Ulcer: PPI Disposition: Shared decision making: All test results, treatment options and disposition options were discussed with the patient today Social determinants of health that may impact management: none Code status: Full Code Disposition: Discharge plan is home [facility] Advanced Care Planning documentation: [x] I have confirmed that the patient's Advance Care Plan is present, Code Status is documented, or surrogate decision maker is listed in the patient's medical record [If yes , STOP HERE] [] The patient's Advance Care Plan is NOT present because: [] I confirmed today that the patient does not wish or was not able to name a surrogate decision maker or provide and advance care plan. [] Hospice care is currently being provided or has been provided within the calendar year. [] I did NOT confirm today the presence of an Advance Care Plan or surrogate decision maker documented within the patient's medical record. [DOES NOT SATISFY MIPS PERFORMANCE] LORENA Brown CNP , FRANCHESKA-C 2025 8:34 AM FACE TO FACE: Patient qualified for home O2. Discussed with patient the medical necessity of home O2. Patient voiced understanding and agreement. LORENA Brown CNP, PAULA CARRILLO-C 2025, 8:34 AM This patient has Chronic Respiratory Failure secondary to Muscular Dystrophy, requiring noninvasive ventilation therapy in the home to maintain or optimize an acceptable PCO2 level. If the PCO2 level is not managed, this could cause harm or even . This could also reduce respiratory readmissions. BiPAP has proven to be ineffective in maintaining the patients PCO2 levels, now requiring noninvasive therapy. Cosigned by Arleth Milligan MD at 2025 8:33 PM EDT Associated attestation - Arleth Milligan MD - 2025 8:33 PM EDT Arleth Milligan M.D. Internal Medicine PA/MAIL INSERTER Attestation Note Patient: Evgeny Delgado Date of Admission: 02/10/2025 4:04 PM Date of Evaluation: 2025 I personally evaluated and examined the patient [id number] in conjunction with the PA/MAIL INSERTER and agree with the management and dispostition of the patient. Please see the PA/MAIL INSERTER's note for full details. My jeffries findings are: SUBJECTIVE: Evgeny Delgado is a 70 y.o. male who was seen today along with Jillian Plascencia CNP for follow up of Acute respiratory failure with hypoxia and hypercapnia (HCC). He is feeling better today. He denies and cough or SOB. He denies fever or chills and has been afebrile. We discussed home non invasive ventilation OBJECTIVE: Vitals: Temp: 96.8 F (36 C) BP: 109/63 Respirations: 16 Pulse: 75 SpO2: 97 % on 1 Lpm nasal cannula Weight Wt Readings from Last 3 Encounters: 02/19/25 93.4 kg (206 lb) 12/16/24 90.3 kg (199 lb) 09/17/24 90.3 kg (199 lb) Body mass index is 30.41 kg/m . 24HR INTAKE/OUTPUT: Intake/Output Summary (Last 24 hours) at 02/19/20252031 Last data filed at 2025 1440 Gross per 24 hour Intake 840 ml Output 1600 ml Net -760 ml Exam: GEN: Awake, alert and oriented x 3. EYES: EOMI, pupils equal NECK: Supple. No lymphadenopathy. No carotid bruit CVS: regular rate and rhythm, 2/6 systolic murmur PULM: CTA, no wheezes, rales or rhonchi, no acute respiratory distress ABD: Bowels sounds normal. Abdomen is soft. No distention. no tenderness to palpation. EXT: no edema bilaterally . No calf tenderness. NEURO: Moves all extremities. Motor and sensory are grossly intact SKIN: No rashes. No skin lesions. DATA: Latest Reference Range & Units 02/15/25 06:32 02/16/25 06:15 02/17/25 15:08 02/18/25 05:45 pH, Arterial 7.35 - 7.45 7.290 (L) 7.304 (L) 7.548 (H) 7.348 (L) pH, Art, Temp Adj 7.350 - 7.450 7.290 (LL) 7.304 (L) 7.548 (HH) 7.348 (L) pCO2, Art, Temp Adj 35.0 - 45.0 85.6 (HH) 81.3 (HH) 32.1 (L) 72.7 (HH) pCO2, Arterial 35 - 45 mmHg 85.6 (HH) 81.3 (HH) 32.1 (L) 72.7 (HH) pO2, Art, Temp Adj 80.0 - 100.0 mmHg 66.0 (L) 64.9 (L) 86.4 93.7 pO2, Arterial 80.0 - 100.0 mmHg 66.0 (L) 64.9 (L) 86.4 93.7 HCO3, Arterial 22 - 26 mmol/L 40.2 (H) 39.5 (H) 27.3 (H) 39.1 (H) Positive Base Excess, Art 0.0 - 2.0 mmol/L 10.1 (H) 9.4 (H) 5.4 (H) 10.1 (H) O2 Sat, Arterial 95 - 98 % 91.2 (L) 89.6 (L) 97.6 96.5 Microbiology / Cultures: Results Procedure Component Value Units Date/Time Respiratory Panel, Molecular, with COVID-19 (Restricted: peds pts or suitable admitted adults) [[id number]] Collected: 02/10/25 1853 Order Status: Completed Specimen: Nasopharyngeal Swab Updated: 02/11/25 0130 Specimen Description .NASOPHARYNGEAL SWAB Adenovirus PCR Not Detected Coronavirus 229E PCR Not Detected Coronavirus HKU1 PCR Not Detected Coronavirus NL63 PCR Not Detected Coronavirus OC43 PCR Not Detected SARS-CoV-2, PCR Not Detected Human Metapneumovirus PCR Not Detected Rhino/Enterovirus PCR Not Detected Influenza A by PCR Not Detected Influenza B by PCR Not Detected Parainfluenza 1 PCR Not Detected Parainfluenza 2 PCR Not Detected Parainfluenza 3 PCR Not Detected Parainfluenza 4 PCR Not Detected Resp Syncytial Virus PCR Not Detected Bordetella parapertussis by PCR Not Detected B Pertussis by PCR Not Detected Chlamydia pneumoniae By PCR Not Detected Mycoplasma pneumo by PCR Not Detected Comment: Performed by multiplexed nucleic acid assay. Imaging Data: CT CHEST PULMONARY EMBOLISM W CONTRAST Result Date: 02/10/2025 EXAMINATION: CTA OF THE CHEST 02/10/2025 5:37 pm TECHNIQUE: CTA of the chest was performed after the administration of intravenous contrast. Multiplanar reformatted images are provided for review. MIP images are provided for review. Automated exposure control, iterative reconstruction, and/or weight based adjustment of the mA/kV was utilized to reduce the radiation dose to as low as reasonably achievable. COMPARISON: None. HISTORY: ORDERING SYSTEM PROVIDED HISTORY: dyspnea, PE TECHNOLOGIST PROVIDED HISTORY: dyspnea, PE Decision Support Exception - unselect if not a suspected or confirmed emergency medical condition->Emergency Medical Condition (MA) FINDINGS: Pulmonary Arteries: Pulmonary arteries are adequately opacified for evaluation. No evidence of intraluminal filling defect to suggest pulmonary embolism. Main pulmonary artery is normal in caliber. Mediastinum: The heart size within normal limits. Coronary arterial calcifications. The thoracic aorta is normal caliber with mild atherosclerosis. The esophagus is unremarkable. No pathologically enlarged adenopathy. Lungs/pleura: Elevation of the right hemidiaphragm. Mild right basilar atelectasis versus scarring. No other focal consolidation, pleural effusion or pneumothorax. The central airways are patent. Upper Abdomen: High-density material within the gallbladder. Lobular liver contour. Small hiatal hernia. Soft Tissues/Bones: Age-indeterminate T6 compression deformity but likely chronic. No other acute bone or soft tissue abnormality. 1. No evidence of pulmonary embolism or acute pulmonary abnormality. 2. Age-indeterminate T6 compression deformity, but likely chronic. 3. Gallbladder stones versus sludge. 4. Lobular liver contour, raising suspicion for cirrhosis or chronic liver disease. XR CHEST PORTABLE Result Date: 02/10/2025 EXAMINATION: ONE XRAY VIEW OF THE CHEST 02/10/2025 4:29 pm COMPARISON: None. HISTORY: ORDERING SYSTEM PROVIDED HISTORY: dyspnea TECHNOLOGIST PROVIDED HISTORY: dyspnea FINDINGS: Lines and tubes: None The lungs are clear. Heart size is normal. No acute cardiopulmonary process. ASSESSMENT: Principal Problem: Acute respiratory failure with hypoxia and hypercapnia (HCC) Active Problems: Nonrheumatic aortic valve stenosis Muscular dystrophies (HCC) Type 2 diabetes mellitus, without long-term current use of insulin (HCC) Chronic diastolic heart failure (HCC) Resolved Problems: * No resolved hospital problems. * PLAN: I agree with the assessment, plan and medical decision making documentation as outlined by APC: Treatment plan: Pulm consult appreciated Recommends NIV at home due to continued CO2 retention from muscular dystrophy Per SS insurance denied Trilogy NIV however pt is unsafe to be home without this tx due to severe hypercanpia Labs: Trend ABGs Medications: Continue Entresto, Toprol, Lasix Nutrition status: Well developed, well nourished with no malnutrition Fish Culturist consult appreciated Monitor daily weights Monitor daily I/O's Medication monitoring / High risk medications: none Disposition: Discharge plan is pending availability of NIV delivery SHARED APC VISIT, PHYSICIAN ATTESTATION: [id number] I personally performed a substantive part of the MDM during the patient's visit. I personally evaluated and examined the patient. I personally made or approved the documented management plan and acknowledge its risk of complications. Test interpretation: My independent EKG interpretation: Normal sinus rhythm with first degree AV block and RBBB My independent imaging interpretation: CXR shows no acute process Management and/or test interpretation discussed with LEVY Drummond MD , M.D. 2025 8:32 PM Physical Therapy Facility/Department: [facility] Daily Treatment Note NAME: Evgeny Delgado : 1955 Date of Service: 2025 Discharge Recommendations: Continue to assess pending progress Patient Diagnosis(es): The primary encounter diagnosis was Acute respiratory failure with hypoxia and hypercapnia (HCC). Diagnoses of Muscular dystrophies (HCC), Chronic diastolic heart failure (HCC), and Chronic respiratory failure with hypoxia and hypercapnia (HCC) were also pertinent to this visit. Assessment Assessment: Transfers:SUP . Pt ambulated 80ftx1 with 4WW and SUP for safety. Slow cadance noted, no LOB or unsteadiness. Reclined and seated exercises b LE x20 with HEP review. Activity Tolerance: Patient tolerated treatment well Plan Physical Therapy Plan General Plan: 2 times a day 7 days a week Specific Instructions for Next Treatment: 1x per week on weekends and holidays Current Treatment Recommendations: Strengthening;ROM;Balance training;Functional mobility training;Transfer training;Gait training;Stair training;Home exercise program;Safety education & training;Patient/Caregiver education & training;Equipment evaluation, education, & procurement;Positioning;Therapeuti c activities Restrictions Restrictions/Precautions Restrictions/Precautions: General Precautions, Fall Risk Required Braces or Orthoses?: Yes Required Braces or Orthoses Right Lower Extremity Brace: Ankle Foot Orthotics Left Lower Extremity Brace: Dinorah Foot Orthotics Subjective Subjective Subjective: Pt. up in chair upon arrival, agreeable to therapy at this time. Pain: denies Objective Bed Mobility Training Bed Mobility Training: No Transfer Training Transfer Training: Yes Overall Level of Assistance: Supervision Interventions: Verbal cues Sit to Stand: Supervision Stand to Sit: Supervision Gait Gait Training: Yes Overall Level of Assistance: Supervision Assistive Device: Walker, rollator;Gait belt Interventions: Safety awareness training Step Length: Left shortened;Right shortened Swing Pattern: Left asymmetrical;Right asymmetrical Gait Abnormalities: Hip hike;Foot drop PT Exercises Exercise Treatment: Reclined and seated exercises B LE x20 Safety Devices Type of Devices: Call light within reach;Chair alarm in place;Left in chair;All fall risk precautions in place;Nurse notified Goals Short Term Goals Time Frame for Short Term Goals: 20 visits Short Term Goal 1: Patient will tolerate 20-30' ther-ex in order to increase endurance and ease ADLS Short Term Goal 2: Patient will ascend/descend 4 steps with handrail with supervision assistance in order to safely enter/exit the home Short Term Goal 3: Patient will complete bed mobility and transfers independently in order to return to PLOF Short Term Goal 4: Patient will ambulate 200 feet with rollator with supervision assistance in order to return to PLOF Education Patient Education Education Given To: Patient Education Provided: Role of Therapy;Plan of Care;Home Exercise Program Education Method: Verbal Barriers to Learning: None Education Outcome: Verbalized understanding;Demonstrated understanding Therapy Time Individual Concurrent Group Co-treatment Time In 723 Time Out 0753 Minutes 29 Silvia Stearns PTA Cosigned by Lee Andrews PT at 2025 9:30 AM EDT Entered patient's room for morning vital signs and head to toe assessment. Patient resting in the chair at this time. A&O x4, calm, and cooperative. Patient denies of pain at this time. Vital signs and head to toe assessment completed at this time, see flowsheets for more details. Patient on nasal cannula 2L a this time. Continuous SpO2 changed at this time. Patient reports a sore and dry throat, lozenge given at this time. Lung sounds are diminished with fine crackles noted in the LLL. Patient reports poor sleep at this time. Patient denies no more needs at this time. Call light within reach. Chair alarm on. Bed/chair wheels locked. Bed in lowest position. Images from the original note were not included. PULMONARY & CRITICAL CARE MEDICINE PROGRESS NOTE Telehealth evaluation- Audio/visual Patient: Evgeny Delgado Admit date: 02/10/2025 Primary Care Physician: Marco Bosch MD Consulting Physician: Arleth Milligan MD CODE Status: DNR-CCA LOS: 8 Evgeny Delgado, was evaluated through a synchronous (real-time) audio-video encounter. The patient (and/or guardian if applicable) is aware that this is a billable service, which includes applicable co-pays. This virtual visit was conducted with patient's (and/or legal guardian's) consent. Patient identification was verified, and a caregiver was present when appropriate. The patient was located at Facility (Appt Department): [facility] [address] [place] [address] Loc: [phone] The provider was located at Facility (Login Dept): [facility] [address] [place] [address] Yes, I confirm. Total time spent on this encounter: Not billed by time --Ronn Cheek MD on 02/18/2025 at 5:25 PM An electronic signature was used to authenticate this note. SUBJECTIVE CHIEF COMPLAINT/REASON FOR CONSULT:Shortness of Breath (Patient presents to the emergency department with complaint of increasing shortness of breath. Patient reports that he recently returned from [place] and has not felt right since. He has been checking his Spo2 levels at home with the lowest being in the 70's Has been using oxygen which has been making him feel better. ) HISTORY OF PRESENT ILLNESS: The patient is a 69 y.o. male with MD not on home o2 or NIV . Previously had Bipap which was dc . Follows with pulmonary near his home . After return from [place] has been feeling worse , SATs at home 70's , le edema , was using his son's o2 . No chest pain , no wheeze , no purulent sputum or hemoptysis . Vbg - hypercapnia - acute on chr . CTA no pe INTERVAL HISTORY: 02/18/2025 Used BiPAP overnight On NC Awake & alert REVIEW OF SYSTEMS: Review of Systems Constitutional: Positive for fatigue. Negative for fever. HENT: Negative for congestion and voice change. Eyes: Negative for visual disturbance. Respiratory: Positive for shortness of breath. Cardiovascular: Negative for chest pain and leg swelling. Gastrointestinal: Negative for abdominal pain, nausea and vomiting. Genitourinary: Negative for dysuria and urgency. Musculoskeletal: Negative for back pain and joint swelling. Skin: Negative for rash. Neurological: Positive for weakness. Hematological: Does not bruise/bleed easily. Psychiatric/Behavioral: Negative for agitation and confusion. OBJECTIVE VITAL SIGNS: LAST: BP 98/63 Pulse 75 Temp 97.2 F (36.2 C) (Temporal) Resp 20 Ht 1.753 m (5' 9.02 ) Wt 91.4 kg (201 lb 6.4 oz) SpO2 96% BMI 29.73 kg/m 8-24 HR RANGE: TEMP Temp Av.7 F (36.5 C) Min: 97.2 F (36.2 C) Max: 98.1 F (36.7 C) BP Systolic (24hrs), Av , Min:98 , Max:105 Diastolic (24hrs), Av, Min:63, Max:66 PULSE Pulse Av.6 Min: 73 Max: 75 RR Resp Av Min: 20 Max: 20 O2 SAT SpO2 Av % Min: 96 % Max: 96 % OXYGEN DELIVERY O2 Flow Rate (L/min) Av L/min Min: 2 L/min Max: 2 L/min Due to this being a TeleHealth encounter, evaluation of the following organ systems is limited: Vitals/Constitutional/EENT/Resp/CV /GI//MS/Neuro/Skin/Dmav-Qflfs-Ac m. SYSTEMIC EXAMINATION: General appearance - [] well appearing [x] overweight [] obese [] cachectic [x] comfortable [x] in no acute distress []chronically ill-appearing Mental status - [x] alert [x] oriented to person, place, and time [] anxious [x] normal mood Head- [x] atraumatic [x] normocephalic Eyes - [] pupils equal and reactive [x] extraocular eye movements intact [x] sclera anicteric Ears - [x] hearing grossly normal bilaterally [] bilateral TM's and external ear canals normal Nose - [] normal and patent [] no erythema [] discharge Mouth - [] mucous membranes moist [] pharynx normal without lesions [] erythematous [] exudate noted Mallampati Airway Score - [] I (soft palate, uvula, fauces, tonsillar pillars visible) [] II (soft palate, uvula, fauces visible) [] III (soft palate, base of uvula visible) [] IV (only hard palate visible) Neck - [x] supple [x] no abnormal swelling [] carotids upstroke normal bilaterally [] no JVD [] no bruit [x] normal range of motion Lymphatics - [] no palpable lymphadenopathy [] no hepatosplenomegaly Chest - [x]respiratory effort normal [] no chest wall tenderness [] increased AP diameter[] pectus noted [] scoliosis noted [x] no tachypnea, retraction or cyanosis [] clear to auscultation, no wheezes, rales or rhonchi, symmetric air entry [] wheezing noted [] rales noted []rhonchi noted [] decreased air entry noted bilaterally Heart - [] normal rate, [] regular rhythm [] irregularly irregular rhythm [] normal S1 [] normal S2 [] no murmurs, rubs, clicks or gallops [] S3 present [] S4 present [] systolic murmur [] diastolic murmur [] midsystolic click []pericardial rub present Abdomen - [] soft [] nontender [] nondistended [] no masses or organomegaly Neurological - [x] normal speech [x] no focal findings or movement disorder noted [x] no facial asymmetry [] cranial nerves II through XII intact [] DTR's normal and symmetric [] Babinski sign negative, [] motor and sensory grossly normal bilaterally [] normal muscle tone [x] no tremors [] strength 5/5 [] Romberg sign negative [x] normal gait and station Musculoskeletal - [x] no joint swelling [] no joint tenderness [] no deformity Extremities - [x] no clubbing or cyanosis, [x] no pedal edema [] pedal edema [] intact peripheral pulses Skin - [x] normal coloration and turgor [x] no rashes [x] no suspicious skin lesions noted DATA REVIEW Medications: Current Inpatient Scheduled Meds: ipratropium 0.5 mg-albuterol 2.5 mg 1 Dose Inhalation 4x Daily RT hydrocortisone Topical BID allopurinol 300 mg Oral Daily ALPRAZolam 0.5 mg Oral Nightly aspirin 81 mg Oral Daily atorvastatin 40 mg Oral Daily citalopram 20 mg Oral Daily empagliflozin 10 mg Oral Daily furosemide 20 mg Oral Daily glipiZIDE 2.5 mg Oral QAM AC ipratropium 2 spray Each Nostril BID metoprolol succinate 25 mg Oral Daily midodrine 10 mg Oral TID WC therapeutic multivitamin-minerals 1 tablet Oral Daily pantoprazole 40 mg Oral QAM AC sacubitril-valsartan 0.5 tablet Oral BID tamsulosin 0.8 mg Oral Daily sodium chloride flush 10 mL IntraVENous 2 times per day enoxaparin 40 mg SubCUTAneous Daily Continuous Infusions: sodium chloride INPUT/OUTPUT: In: 2480 [P.O.:2480] Out: 4925 [Urine:4925] Date 02/18/25 - 02/18/25 2359 Shift 5241-2919 2603-6569 3609-9333 24 Hour Total INTAKE P.O.(mL/kg/hr) 600(0.8) 600 Shift Total(mL/kg) 600(6.6) 600(6.6) OUTPUT Urine(mL/kg/hr) 800(1.1) 1900(2.6) 2700 Shift Total(mL/kg) 800(8.8) 1900(20.9) 2700(29.7) Weight (kg) 90.9 90.9 90.9 90.9 LABORATORY RESULTS: BLOOD GASES: No results for input(s): POCPH , POCPCO2 , POCPO2 , POCHCO3 , XDTM5HAM in the last 72 hours. COMPLETE BLOOD COUNTS: No results for input(s): WBC , HGB , HCT , MCV , PLT , MID , GRAN , LYMPHOPCT , MIDPERCENT , GRANULOCYTES , RBC , MCH , MCHC , RDW in the last 72 hours. Invalid input(s): LABLYMP , RELATIVEPERCENT C-REACTIVE PROTEIN: No results for input(s): CRP in the last 72 hours. LACTATE DEHYDROGENASE: No results for input(s): LDH in the last 72 hours. BASIC METABOLIC PROFILE: No results for input(s): NA , K , CL , CO2 , BUN , CREATININE , GLUCOSE , MG , PHOS in the last 72 hours. Invalid input(s): CA , IONCA LIVER FUNCTION TESTS: No results for input(s): LABALBU , ALT , AST , GGT , ALKPHOS , BILITOT in the last 72 hours. Invalid input(s): PROT COAGULATION PROFILE: No results for input(s): INR , PROTIME , APTT in the last 72 hours. D-DIMER: No results for input(s): DDIMER in the last 72 hours. LACTIC ACID: No results for input(s): LACTA in the last 72 hours. CARDIAC ENZYMES: No results for input(s): CKTOTAL , CKMB , CKMBINDEX , TROPONINI in the last 72 hours. Invalid input(s): TROPONIN , HSTROP BRAIN NATRIURETIC PEPTIDE/PRO-BRAIN NATRURETIC PEPTIDE: No results for input(s): BNP , PROBNP in the last 72 hours. TRIGLYCERIDES: No results for input(s): TRIG in the last 72 hours. MICROBIOLOGY RESULTS: URINE CULTURE: No components found for: CURINE BLOOD CULTURE: No components found for: CBLOOD , CFUNGUSBL SPUTUM CULTURE: No components found for: CSPUTUM No results for input(s): SPUTUM , SPECDESC , SPECIAL , CULTURE , STATUS , ORG , CDIFFTOXPCR , MPNEUM , MPNEUG , CAMPYLOBPCR , SALMONELLAPC , SHIGAPCR , SHIGELLAPCR , LACTOQL in the last 72 hours. Invalid input(s): CURINE , CBLOOD , CFUNGUSBL PATHOLOGY RESULTS: RADIOLOGY REPORTS: XR CHEST (2 VW) Final Result No acute cardiopulmonary disease. Stable subsegmental atelectasis on the right. CT CHEST PULMONARY EMBOLISM W CONTRAST Final Result 1. No evidence of pulmonary embolism or acute pulmonary abnormality. 2. Age-indeterminate T6 compression deformity, but likely chronic. 3. Gallbladder stones versus sludge. 4. Lobular liver contour, raising suspicion for cirrhosis or chronic liver disease. XR CHEST PORTABLE Final Result No acute cardiopulmonary process. ASSESSMENT AND PLAN PROBLEM LIST: Patient Active Problem List Diagnosis NSTEMI (non-ST elevated myocardial infarction) (HCC) Dyspnea Nonrheumatic aortic valve stenosis Acute respiratory failure with hypoxia and hypercapnia (HCC) HFrEF (heart failure with reduced ejection fraction) (HCC) Closed wedge compression fracture of T7 vertebra (HCC) Muscular dystrophies (HCC) Dysphagia Type 2 diabetes mellitus, without long-term current use of insulin (HCC) Chronic respiratory failure (HCC) Chronic diastolic heart failure (HCC) Acute on chronic respiratory failure with hypoxia and hypercapnia (HCC) ASSESSMENT: Acute hypoxic/hypercapnic respiratory failure Muscular dystrophies Chronic diastolic heart failure Type 2 diabetes mellitus Former smoker PLAN: I personally interviewed/examined the patient; reviewed interval history, interpreted all available radiographic and laboratory data at the time of service. Patient is hemodynamically stable Currently on nasal cannula @ O2 Flow Rate (L/min) Av L/min Min: 2 L/min Max: 2 L/min Continue supplemental oxygen to keep oxygen saturation >90% Continue nocturnal and as needed BiPAP Continue diuresis with lasix Encourage incentive spirometry/Acapella Maintain bronchopulmonary hygiene Aspiration precautions Continue bronchodilators DVT and stress ulcer prophylaxis Physical/occupational therapy The patient has chronic respiratory failure secondary to muscular dystrophies. In my professional opinion, this patient would benefit from NIV therapy with AVAPS-AE / IVAS-AE mode rather than Bilevel therapy, because of the advanced capability of these modes to provide a targeted Vt, adjustable EPAP and back up rate. A targeted Vt can only be accomplished with NPPV therapy. For this reason, Bilevel/BiPAP ST therapy has been considered, but NIV is more clinically appropriate. Without this therapy, the patient is likely to experience life threatening respiratory failure necessitating frequent readmissions. It was my pleasure to evaluate Evgeny Delgado today. I would like to thank you for allowing me to participate in the care of this patient. Please feel free to call with any further questions or concerns. We will continue to follow. Ronn Cheek MD Pulmonary and Critical Care Medicine 02/18/2025, 5:24 PM This note is created with the assistance of a speech recognition program. While intending to generate a document that actually reflects the content of the visit, the document can still have some errors including those of syntax and sound-alike substitutions which may escape proof reading. It such instances, actual meaning can be extrapolated by contextual diversion. Physical Therapy Facility/Department: [facility] Daily Treatment Note NAME: Evgeny Delgado : 1955 Date of Service: 02/18/2025 Discharge Recommendations: Continue to assess pending progress Patient Diagnosis(es): The primary encounter diagnosis was Acute respiratory failure with hypoxia and hypercapnia (HCC). Diagnoses of Muscular dystrophies (HCC), Chronic diastolic heart failure (HCC), and Chronic respiratory failure with hypoxia and hypercapnia (HCC) were also pertinent to this visit. Assessment Assessment: Transfers:SBA/SUP . Pt ambulated 80ftx1 with 4WW and SBA/SUP for safety. Slow cadance noted, no LOB or unsteadiness. Reclined and seated exercises b LE x20 with HEP review. Activity Tolerance: Patient tolerated treatment well Plan Physical Therapy Plan General Plan: 2 times a day 7 days a week Specific Instructions for Next Treatment: 1x per week on weekends and holidays Current Treatment Recommendations: Strengthening;ROM;Balance training;Functional mobility training;Transfer training;Gait training;Stair training;Home exercise program;Safety education & training;Patient/Caregiver education & training;Equipment evaluation, education, & procurement;Positioning;Therapeuti c activities Restrictions Restrictions/Precautions Restrictions/Precautions: General Precautions, Fall Risk Required Braces or Orthoses?: Yes Required Braces or Orthoses Right Lower Extremity Brace: Ankle Foot Orthotics Left Lower Extremity Brace: Dinorah Foot Orthotics Subjective Subjective Subjective: Pt. up in chair upon arrival, agreeable to therapy at this time. Reports just returnign to chair from restroom use. Pain: denies Objective Bed Mobility Training Bed Mobility Training: No Transfer Training Transfer Training: Yes Overall Level of Assistance: Stand by assistance;Supervision Interventions: Verbal cues Sit to Stand: Stand by assistance;Supervision Stand to Sit: Stand by assistance;Supervision Gait Gait Training: Yes Overall Level of Assistance: Stand by assistance;Supervision Distance (ft): 90 Feet Assistive Device: Walker, rollator;Gait belt Interventions: Safety awareness training Speed/Diane: Slow Step Length: Left shortened;Right shortened Swing Pattern: Left asymmetrical;Right asymmetrical Gait Abnormalities: Hip hike;Foot drop PT Exercises Exercise Treatment: Reclined and seated exercises B LE x20 Other Specialty Interventions Other Treatments/Modalities: standing urinal use Safety Devices Type of Devices: Call light within reach;Chair alarm in place;Left in chair;All fall risk precautions in place;Nurse notified Goals Short Term Goals Time Frame for Short Term Goals: 20 visits Short Term Goal 1: Patient will tolerate 20-30' ther-ex in order to increase endurance and ease ADLS Short Term Goal 2: Patient will ascend/descend 4 steps with handrail with supervision assistance in order to safely enter/exit the home Short Term Goal 3: Patient will complete bed mobility and transfers independently in order to return to PLOF Short Term Goal 4: Patient will ambulate 200 feet with rollator with supervision assistance in order to return to PLOF Education Patient Education Education Given To: Patient Education Provided: Role of Therapy;Plan of Care;Home Exercise Program Education Method: Verbal Barriers to Learning: None Education Outcome: Verbalized understanding;Demonstrated understanding Therapy Time Individual Concurrent Group Co-treatment Time In 1132 Time Out 1157 Minutes 25 Silvia Stearns PTA Cosigned by Lee Mendez PT at 02/18/2025 1:08 PM EDT Comprehensive Nutrition Assessment Type and Reason for Visit: Reassess Nutrition Recommendations/Plan: Continue current diet. Meet >75% of estimated needs. 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 Home diet consisted of poor carbohydrate intake, education denied. Reporting good PO intake. and Recommendation of an updated A1C test to show the possible increase in A1C and how to prevent it. Nutrition Related Findings: Active bowel sounds, +3 pitting RLE and +2 pitting LLE Wound Type: None Current Nutrition Intake & Therapies: Average Meal Intake: 76-100% Average Supplements Intake: None Ordered ADULT DIET; Regular Anthropometric Measures: Height: 175.3 cm (5' 9.02 ) [place] Body Weight (IBW): 160 lbs (73 kg) Admission Body Weight: 89.8 kg (198 lb) Current Body Weight: 91.4 kg (201 lb 8 oz), 125.9 % IBW. Weight Source: Bed scale Current BMI (kg/m2): 29.7 Usual Body Weight: 90.3 kg (199 lb) % Weight Change (Calculated): 1.3 Weight Adjustment For: No Adjustment BMI Categories: Overweight (BMI 25.0-29.9) Hematology:No results for input(s): WBC , HGB , HCT in the last 72 hours. Chemistry:No results for input(s): NA , K , CL , CO2 , GLUCOSE , BUN , CREATININE , MG , CALCIUM , CAION , PHOS in the last 72 hours. No results for input(s): LABALBU , LABA1C , X9XAUMU , FT4 , TSH , AST , ALT , LDH , GGT , ALKPHOS , BILITOT , AMMONIA , AMYLASE , LIPASE , LACTATE , CHOL , TRIG , HDL , LDLDIRECT , BNP , TROPONINI , CKTOTAL in the last 72 hours. Invalid input(s): PROT , P5ESIYB , LDLCALC , LABVLDL Estimated Daily Nutrient Needs: Energy Requirements Based On: Kcal/kg Weight Used for Energy Requirements: Current Energy (kcal/day): 2973-2935 (18-22kcal/kg) Weight Used for Protein Requirements: [place] Protein (g/day): 87-102 (1.2-1.4 g/kg) Method Used for Fluid Requirements: 1 ml/kcal Fluid (ml/day): 1999 Nutrition Diagnosis: Limited adherence to nutrition-related recommendations related to endocrine dysfunction as evidenced by lab values, other (Diet) Nutrition Interventions: Food and/or Nutrient Delivery: Continue Current Diet Nutrition Education/Counseling: Education/Counseling declined Coordination of Nutrition Care: Continue to monitor while inpatient Plan of Care discussed with: pt Goals: Goals: Meet at least 75% of estimated needs, PO intake 75% or greater Type of Goal: Continue current goal Previous Goal Met: No Progress toward Goal(s) Nutrition Monitoring and Evaluation: Behavioral-Environmental Outcomes: Readiness for Change, Knowledge or Skill Food/Nutrient Intake Outcomes: Food and Nutrient Intake Physical Signs/Symptoms Outcomes: Biochemical Data, Fluid Status or Edema, Weight Discharge Planning: Continue current diet Janey Brink Contact: [phone], LD at 02/18/2025 1:10 PM EDT RESPIRATORY ASSESSMENT PROTOCOL Patient Name: Evgeny Delgado Room#: 0328/0328-01 : 1955 Admitting diagnosis: Acute on chronic respiratory failure with hypoxia and hypercapnia (HCC) [J96.21, J96.22] Medical History: Past Medical History: Diagnosis Date Aortic stenosis CHF (congestive heart failure) ([facility]) Diabetes mellitus (HCC) FSHD (facioscapulohumeral muscular dystrophy) (HCC) HFrEF (heart failure with reduced ejection fraction) ([facility]) HLD (hyperlipidemia) HTN (hypertension) Nonischemic cardiomyopathy ([facility]) PATIENT ASSESSMENT LABORATORY DATA Hematology: Lab Results Component Value Date/Time WBC 6.0 02/15/2025 06:00 AM RBC 5.07 02/15/2025 06:00 AM HGB 12.7 02/15/2025 06:00 AM HCT 45.6 02/15/2025 06:00 AM PLT 151 02/15/2025 06:00 AM Chemistry: Lab Results Component Value Date/Time PHART 7.348 02/18/2025 05:45 AM JHM7ICO 72.7 02/18/2025 05:45 AM PO2ART 93.7 02/18/2025 05:45 AM [id number] 96.5 02/18/2025 05:45 AM CLS0EOD 39.1 02/18/2025 05:45 AM PBEA 10.1 02/18/2025 05:45 AM VITALS Pulse: 74 Respirations: 20 BP: 98/63 SpO2: 96 % O2 Device: Nasal cannula Temp: 97.2 F (36.2 C) SKIN COLOR [x] Normal [] Pale [] Dusky [] Cyanotic RESPIRATORY PATTERN [x] Normal [] Dyspnea [] Romel-Byrd [] Kussmaul [] Biots AMBULATORY [] Yes [] No [x] With Assistance Patient Acuity 0 1 2 3 4 Score Level of Consciousness (LOC) [x] Alert & Oriented or Pt normal LOC [] Confused;follows directions [] Confused & uncooper-ative [] Obtunded [] Comatose 0 Respiratory Rate (RR) [x] Reg. rate & pattern. 12 - 20 bpm [] Increased RR. Greater than 20 bpm [] SOB w/ exertion or RR greater than 24 bpm [] Access- ory muscle use at rest. Abn. resp. [] SOB at rest. 0 Bilateral Breath Sounds (BBS) [] Clear [] Diminish-ed bases [x] Diminish-ed t/o, or rales [] Sporadic, scattered wheezes or rhonchi [] Persistentwheezes and, or absent BBS 2 Cough [] Strong, effective, & non-prod. [x] Effective & prod. Less than 25 ml (2 TBSP) over past 24 hrs [] Ineffective & non-prod to less than 25 ML over past 24 hrs [] Ineffective and, or greater than 25 ml sputum prod. past 24 hrs. [] Nonspon- taneous; Requires suctioning 1 Pulmonary History (PULM HX) [] No smoking and no chronic pulmonary history [] Former smoker. Quit over 12 mos. ago [] Current smoker or quit w/ in 12 mos [] Pulm. History and, or 20 pk/yr smoking hx [x] Admitted w/ acute pulm. dx and, or has been admitted w/ pulm. dx 2 or more times over past 12 mos 4 Surgical History this Admit (SURG HX) [x] No surgery [] General surgery [] Lower abdominal [] Thoracic or upper abdominal [] Thoracic w/ pulm. disease 0 Chest X-Ray (CXR)/CT Scan [] Clear or not applicable [] Not available [x] Atelectasis or pleural effusions [] Localized infiltrate or pulm. edema [] Con-solidated Infiltrates, bilateral, or in more than 1 lobe 2 TOTAL ACUITY: 9 CARE PLAN If Acuity Level is 2, 3, or 4 in any of the following: [x] BILATERAL BREATH SOUNDS (BBS) [x] PULMONARY HISTORY (PULM HX) [] Respiratory Rate (RR) Goal: Improve respiratory functions in patients with airway disease and decrease WOB [x] AEROSOL PROTOCOL Total Acuity: 14-28 [] Secondary Assessment in 24 hrs Total Acuity: 9-13 [x] Secondary Assessment in 24 hrs Total Acuity: 4-8 [] Secondary Assessment in 24 hrs Total Acuity: 0-3 [] Secondary Assessment in 48 hrs HHN AEROSOL THERAPY with [physician-ordered bronchodilator(s)] q 4 & Albuterol PRN q2 hrs. Breath-Actuated Neb if BBS Acuity = 4, and pt. can use MP. Notify physician if condition deteriorates. HHN AEROSOL THERAPY with [physician-ordered bronchodilator(s)] QID and Albuterol PRN q4 hrs. Breath-Actuated Neb if BBS Acuity = 4, and pt. can use MP. Notify physician if condition deteriorates. MDI THERAPY with 2 actuations of [physician-ordered bronchodilator(s)] via spacer TID Albuterol and PRN q4 hrs. If unable to utilize MDI: HHN [physician-ordered bronchodilator(s)] TID and Albuterol PRN q4 hrs. Notify physician if condition deteriorates. MDI THERAPY with [physician-ordered bronchodilator(s)] via spacer TID PRN. If unable to utilize MDI: HHN [physician-ordered bronchodilator(s)] TID PRN. Notify physician if condition deteriorates. If Acuity Level is 2, 3, or 4 in any of the following: [] COUGH [] SURGICAL HISTORY (SURG HX) [x] CHEST XRAY (CXR) Goal: Improvement in sputum mobilization in patients with ineffective airway clearance. Reverse atelectasis. [x] Bronchopulmonary Hygiene Protocol Total Acuity: 14-28 [] Secondary Assessment in 24 hrs Total Acuity: 9-13 [x] Secondary Assessment in 24 hrs Total Acuity: 4-8 [] Secondary Assessment in 24 hrs Total Acuity: 0-3 [] Secondary Assessment in 48 hrs METANEB QID with [physician-ordered bronchodilator(s)] if CXR Acuity = 4; otherwise: PD&P, Oscillatory Therapy, or Vest QID & PRN AND PEP QID & PRN NT Sxn PRN for ineffective cough METANEB QID with [physician-ordered bronchodilator(s)] if CXR Acuity = 4; otherwise: PD&P, Oscillatory Therapy or Vest QID & PRN AND PEP QID & PRN NT Sxn PRN for ineffective cough PD&P, Oscillatory Therapy, or Vest TID & PRN AND PEP TID & PRN Instruct patient to self-perform IS q1hr WA If Acuity Level is 2 or above in the following: [] PULMONARY HISTORY (PULM HX) Goal: Assist patient in quitting smoking to slow or stop the progression of lung disease. [] Smoking Cessation Protocol SMOKING CESSATION EDUCATION provided according to policy RT_201: (fabian with an X) ____Yes ____ No ____ NA Smoking Cessation Booklet given: ____Yes ____No ____Patient Refused Occupational Therapy Facility/Department: [facility] Daily Treatment Note NAME: Evgeny Delgado : 1955 Date of Service: 02/18/2025 Discharge Recommendations: Continue to assess pending progress Patient Diagnosis(es): The primary encounter diagnosis was Acute respiratory failure with hypoxia and hypercapnia (HCC). Diagnoses of Muscular dystrophies (HCC), Chronic diastolic heart failure (HCC), and Chronic respiratory failure with hypoxia and hypercapnia (HCC) were also pertinent to this visit. Assessment Activity Tolerance: Patient tolerated treatment well Discharge Recommendations: Continue to assess pending progress Plan Occupational Therapy Plan Times Per Day: Once a day Days Per Week: 7 Days Current Treatment Recommendations: Strengthening;Balance training;Endurance training;Functional mobility training;Patient/Caregiver education & training;Safety education & training;Self-Care / ADL;Equipment evaluation, education, & procurement;ROM Restrictions Restrictions/Precautions Restrictions/Precautions: General Precautions;Fall Risk Required Braces or Orthoses Right Lower Extremity Brace: Ankle Foot Orthotics Left Lower Extremity Brace: Dinorah Foot Orthotics Subjective Subjective Subjective: Pt sitting up in bedside chair upon arrival. Pt agreed to participate in therapy session. Pt declined self care stating I want to wait until my gets here later . Pain: Pt had no complaints of pain. Objective Vitals OT Exercises Exercise Treatment: Pt completed BUE ther ex with 2# dumbbell x 7 planes x 15 reps x 1 set, yellow flex bar x 3 variations x 15 reps x 1 set to increase UE strength and endurance in order to ease completion of ADL tasks. Pt required RBs as needed secondary to fatigue. Safety Devices Type of Devices: Call light within reach;Chair alarm in place;Left in chair;All fall risk precautions in place;Nurse notified Patient Education Education Given To: Patient Education Provided: Role of Therapy;Plan of Care;Home Exercise Program Education Method: Verbal Barriers to Learning: None Education Outcome: Verbalized understanding Goals Short Term Goals Time Frame for Short Term Goals: 21 visits Short Term Goal 1: Patient to be educated on d/c folder, AE/DME and home safety to ensure safe and indep return home. Short Term Goal 2: Patient to safely complete ADL routine c mod I c use of AE/DME as needed to ensure safe and independnet return home. Short Term Goal 3: Patient to engage in 15 minutes of ther ex/ther act c no more than 2 RB to improve strength and activity tolerance for ADL. AM-PAC - ADL Therapy Time Individual Concurrent Group Co-treatment Time In 0920 Time Out 0937 Minutes 17 KATHY Garland Cosigned by Fauzia Mejia OTR/L at 02/18/2025 2:40 PM EDT Physical Therapy Facility/Department: [facility] Daily Treatment Note NAME: Evgeny Delgado : 1955 Date of Service: 02/18/2025 Discharge Recommendations: Continue to assess pending progress Patient Diagnosis(es): The primary encounter diagnosis was Acute respiratory failure with hypoxia and hypercapnia (HCC). Diagnoses of Muscular dystrophies (HCC), Chronic diastolic heart failure (HCC), and Chronic respiratory failure with hypoxia and hypercapnia (HCC) were also pertinent to this visit. Assessment Assessment: Transfers:SBA/SUP . Pt ambulated 80ftx1 with 4WW and SBA/SUP for safety. Slow cadance noted, no LOB or unsteadiness. Reclined and seated exercises b LE x20 with HEP review. Activity Tolerance: Patient tolerated treatment well Plan Physical Therapy Plan General Plan: 2 times a day 7 days a week Specific Instructions for Next Treatment: 1x per week on weekends and holidays Current Treatment Recommendations: Strengthening;ROM;Balance training;Functional mobility training;Transfer training;Gait training;Stair training;Home exercise program;Safety education & training;Patient/Caregiver education & training;Equipment evaluation, education, & procurement;Positioning;Therapeuti c activities Restrictions Restrictions/Precautions Restrictions/Precautions: General Precautions, Fall Risk Required Braces or Orthoses?: Yes Required Braces or Orthoses Right Lower Extremity Brace: Ankle Foot Orthotics Left Lower Extremity Brace: Dinorah Foot Orthotics Subjective Subjective Subjective: Pt. up in chair upon arrival, agreeable to therapy at this time. Pain: denies Objective Bed Mobility Training Bed Mobility Training: No Transfer Training Transfer Training: Yes Overall Level of Assistance: Stand by assistance;Supervision Interventions: Verbal cues Sit to Stand: Stand by assistance;Supervision Stand to Sit: Stand by assistance;Supervision Gait Gait Training: Yes Overall Level of Assistance: Stand by assistance;Supervision Distance (ft): 80 Feet Assistive Device: Walker, rollator;Gait belt Interventions: Safety awareness training Speed/Diane: Slow Step Length: Left shortened;Right shortened Swing Pattern: Left asymmetrical;Right asymmetrical Gait Abnormalities: Hip hike;Foot drop PT Exercises Exercise Treatment: Reclined and seated exercises B LE x20 Other Specialty Interventions Other Treatments/Modalities: standing urinal use Safety Devices Type of Devices: Call light within reach;Chair alarm in place;Left in chair;All fall risk precautions in place;Nurse notified Goals Short Term Goals Time Frame for Short Term Goals: 20 visits Short Term Goal 1: Patient will tolerate 20-30' ther-ex in order to increase endurance and ease ADLS Short Term Goal 2: Patient will ascend/descend 4 steps with handrail with supervision assistance in order to safely enter/exit the home Short Term Goal 3: Patient will complete bed mobility and transfers independently in order to return to PLOF Short Term Goal 4: Patient will ambulate 200 feet with rollator with supervision assistance in order to return to PLOF Education Patient Education Education Given To: Patient Education Provided: Role of Therapy;Plan of Care;Home Exercise Program Education Method: Verbal Barriers to Learning: None Education Outcome: Verbalized understanding;Demonstrated understanding Therapy Time Individual Concurrent Group Co-treatment Time In 0817 Time Out 0842 Minutes 25 Silvia Stearns PTA Cosigned by Lee Mendez, PT at 02/18/2025 9:34 AM EDT Images from the original note were not included. IT NETWORK ADMINISTRATOR - Progress Note Patient - Evgeny Delgado Date of Admission - 02/10/2025 4:04 PM Date of Evaluation - 02/18/2025 Hospital Day - 8 SUBJECTIVE: The Evgeny Delgado is a 69 y.o. male resting in bed no distress. On 2L of oxygen. Up on bedside no distress. Awaiting for equipment to arrive at home. Continue to adjust his settings. ROS: Constitutional: negative for fevers, and negative for chills. Respiratory: negative for shortness of breath, positive for cough, and negative for wheezing Cardiovascular: negative for chest pain, and negative for palpitations Gastrointestinal: negative for abdominal pain, negative for nausea,negative for vomiting, negative for diarrhea, and negative for constipation All other systems were reviewed with the patient and are negative unless otherwise stated in HPI. OBJECTIVE: VITAL SIGNS: Patient Vitals for the past 8 hrs: BP Temp Temp src Pulse Resp SpO2 Weight 02/18/25 0730 98/63 97.2 F (36.2 C) Temporal 73 18 98 % -- 02/18/25 0650 -- -- -- -- -- 97 % -- 02/18/25 0537 -- -- -- -- -- 97 % -- 02/18/25 0415 -- -- -- -- -- -- 91.4 kg (201 lb 6.4 oz) 02/18/25 0115 -- -- -- -- 18 95 % -- Temp: 97.2 F (36.2 C) Temp range: Temp Av.7 F (36.5 C) Min: 97.2 F (36.2 C) Max: 98.1 F (36.7 C) BP: 98/63 BP Range: Systolic (24hrs), Av , Min:98 , Max:105 Diastolic (24hrs), Av, Min:63, Max:66 Pulse: 73 Pulse Range: Pulse Av Min: 73 Max: 73 Respirations: 18 Resp Range: Resp Av.8 Min: 18 Max: 30 SpO2: 98 % on supplemental O2 SpO2 range: SpO2 Av.9 % Min: 95 % Max: 98 % Weight Wt Readings from Last 3 Encounters: 02/18/25 91.4 kg (201 lb 6.4 oz) 12/16/24 90.3 kg (199 lb) 09/17/24 90.3 kg (199 lb) Body mass index is 29.74 kg/m . 24HR INTAKE/OUTPUT: Intake/Output Summary (Last 24 hours) at 02/18/2025 0904 Last data filed at 02/18/2025 0859 Gross per 24 hour Intake 1080 ml Output 2425 ml Net -1345 ml Date 02/18/25 0000 - 02/18/25 2359 Shift [id number] [id number] 24 Hour Total INTAKE P.O. 360 360 Shift Total(mL/kg) 360(4) 360(4) OUTPUT Urine(mL/kg/hr) 800(1.1) 800 Shift Total(mL/kg) 800(8.8) 800(8.8) Weight (kg) 90.9 90.9 90.9 90.9 PHYSICAL EXAM: GEN: Awake and following commands: [] No [x] Yes MENTAL STATUS: alert and oriented x3. DISTRESS: Acute respiratory distress: [x] No [] Yes EYES: EOMI, pupils equal NECK: Supple. No lymphadenopathy. No carotid bruit CVS: regular rate and rhythm, no audible murmur PULM: clear diminished right base, no acute respiratory distress ABD: Bowels sounds normal. Abdomen is soft. No distention. no tenderness to palpation. EXT: trace edema LLE . No calf tenderness. NEURO: Moves all extremities. Motor and sensory are grossly intact SKIN: No rashes. No skin lesions. DATA: Complete Blood Count: No results for input(s): WBC , RBC , HGB , HCT , MCV , RDW , PLT , SEGS , NEUTROABS , LYMPHOPCT , LYMPHSABS , MONOPCT , BASOPCT , IMMGRAN in the last 72 hours. Invalid input(s): EOSRELPCT Recent Blood Glucose: No results for input(s): GLUCOSE in the last 72 hours. Comprehensive Metabolic Profile: No results for input(s): BUN , CREATININE , NA , K , CL , MG , PHOS , CALCIUM , ANIONGAP , CO2 , LABALBU , BILITOT , ALKPHOS , AST , ALT in the last 72 hours. Invalid input(s): PROT Urinalysis: Lab Results Component Value Date/Time NITRU NEGATIVE 04/18/2023 11:46 AM COLORU Yellow 04/18/2023 11:46 AM PHUR 7.0 04/18/2023 11:46 AM WBCUA None 04/18/2023 11:46 AM RBCUA 0 TO 2 04/18/2023 11:46 AM LEUKOCYTESUR NEGATIVE 04/18/2023 11:46 AM UROBILINOGEN Normal 04/18/2023 11:46 AM BILIRUBINUR NEGATIVE 04/18/2023 11:46 AM GLUCOSEU NEGATIVE 04/18/2023 11:46 AM KETUA NEGATIVE 04/18/2023 11:46 AM HgBA1c: Lab Results Component Value Date/Time LABA1C 7.6 04/06/2023 08:43 AM TSH: Lab Results Component Value Date/Time TSH 1.83 04/17/2023 08:18 PM Lactic Acid: No results found for: LACTA High Sensitivity Troponin: No results for input(s): TROPHS in the last 72 hours. Pro-BNP: Lab Results Component Value Date PROBNP 147 (H) 02/10/2025 D-Dimer: Lab Results Component Value Date DDIMER 0.35 02/10/2025 ABGs: Latest Reference Range & Units 02/17/25 15:08 02/18/25 05:45 pH, Arterial 7.35 - 7.45 7.548 (H) 7.348 (L) pH, Art, Temp Adj 7.350 - 7.450 7.548 (HH) 7.348 (L) pCO2, Art, Temp Adj 35.0 - 45.0 32.1 (L) 72.7 (HH) pCO2, Arterial 35 - 45 mmHg 32.1 (L) 72.7 (HH) pO2, Art, Temp Adj 80.0 - 100.0 mmHg 86.4 93.7 pO2, Arterial 80.0 - 100.0 mmHg 86.4 93.7 HCO3, Arterial 22 - 26 mmol/L 27.3 (H) 39.1 (H) Positive Base Excess, Art 0.0 - 2.0 mmol/L 5.4 (H) 10.1 (H) O2 Sat, Arterial 95 - 98 % 97.6 96.5 Pt Temp 37.0 37.0 Sample Site Left Radial Artery Right Radial Artery O2 Device/Flow/% BIPAP BIPAP Text for Respiratory Called to RN on 02/18/2025 at 05:49 (HH): Data is critically high (H): Data is abnormally high (L): Data is abnormally low Latest Reference Range & Units 02/15/25 06:32 02/16/25 06:15 pH, Arterial 7.35 - 7.45 7.290 (L) 7.304 (L) pH, Art, Temp Adj 7.350 - 7.450 7.290 (LL) 7.304 (L) pCO2, Art, Temp Adj 35.0 - 45.0 85.6 (HH) 81.3 (HH) pCO2, Arterial 35 - 45 mmHg 85.6 (HH) 81.3 (HH) pO2, Art, Temp Adj 80.0 - 100.0 mmHg 66.0 (L) 64.9 (L) pO2, Arterial 80.0 - 100.0 mmHg 66.0 (L) 64.9 (L) HCO3, Arterial 22 - 26 mmol/L 40.2 (H) 39.5 (H) Positive Base Excess, Art 0.0 - 2.0 mmol/L 10.1 (H) 9.4 (H) O2 Sat, Arterial 95 - 98 % 91.2 (L) 89.6 (L) Pt Temp 37.0 37.0 Sample Site Right Brachial Artery Right Radial Artery O2 Device/Flow/% Cannula Cannula Text for Respiratory Called to RN on 02/15/2025 at 06:35 Called to RN on 02/16/2025 at 06:18 (LL): Data is critically low (HH): Data is critically high (L): Data is abnormally low (H): Data is abnormally high Latest Reference Range & Units 02/13/25 10:10 02/14/25 06:05 pH, Arterial 7.35 - 7.45 7.359 7.339 (L) pH, Art, Temp Adj 7.350 - 7.450 7.359 7.339 (L) pCO2, Art, Temp Adj 35.0 - 45.0 71.6 (HH) 74.2 (HH) pCO2, Arterial 35 - 45 mmHg 71.6 (HH) 74.2 (HH) pO2, Art, Temp Adj 80.0 - 100.0 mmHg 63.4 (L) 129.5 (H) pO2, Arterial 80.0 - 100.0 mmHg 63.4 (L) 129.5 (H) HCO3, Arterial 22 - 26 mmol/L 39.5 (H) 39.0 (H) Positive Base Excess, Art 0.0 - 2.0 mmol/L 10.6 (H) 9.8 (H) O2 Sat, Arterial 95 - 98 % 90.5 (L) 98.3 (H) (HH): Data is critically high (L): Data is abnormally low (H): Data is abnormally high Latest Reference Range & Units 02/11/25 09:04 02/11/25 11:59 02/12/25 07:21 pH, Arterial 7.35 - 7.45 7.343 (L) 7.335 (L) pH, Art, Temp Adj 7.350 - 7.450 7.343 (L) 7.335 (L) pCO2, Art, Temp Adj 35.0 - 45.0 64.9 (HH) 65.4 (HH) pCO2, Arterial 35 - 45 mmHg 64.9 (HH) 65.4 (HH) pO2, Art, Temp Adj 80.0 - 100.0 mmHg 73.1 (L) 80.8 pO2, Arterial 80.0 - 100.0 mmHg 73.1 (L) 80.8 HCO3, Arterial 22 - 26 mmol/L 34.5 (H) 34.1 (H) Positive Base Excess, Art 0.0 - 2.0 mmol/L 6.3 (H) 5.8 (H) O2 Sat, Arterial 95 - 98 % 93.4 (L) 94.9 (L) pH, Galo 7.32 - 7.42 7.321 pH, Galo, Temp Adj 7.320 - 7.420 7.321 pCO2, Galo 39 - 55 mm Hg 82.0 (HH) pO2, Galo 30.0 - 50.0 mm Hg 35.3 pO2, Galo, Temp Adj 30.0 - 50.0 mmHg 35.3 Bicarbonate, Venous 24.0 - 30.0 mmol/L 41.4 (H) Positive Base Excess, Galo 0.0 - 2.0 mmol/L 11.3 (H) O2 Saturation Venous 60.0 - 85.0 % 59.9 (L) Pt Temp 37.0 37.0 37.0 Sample Site Right Radial Artery Right Brachial Artery Set Rate 1 1 O2 Device/Flow/% Cannula Cannula HEATED HIGH FLOW Text for Respiratory Called to RN on 02/11/2025 at 09:07 Called to RN on 02/11/2025 at 12:02 Called to RN on 02/12/2025 at 07:24 (HH): Data is critically high (L): Data is abnormally low (H): Data is abnormally high Latest Reference Range & Units 02/10/25 16:26 02/10/25 21:01 02/10/25 23:05 02/11/25 05:20 pH, Arterial 7.35 - 7.45 7.389 pH, Art, Temp Adj 7.350 - 7.450 7.389 pCO2, Art, Temp Adj 35.0 - 45.0 73.5 (HH) pCO2, Arterial 35 - 45 mmHg 73.5 (HH) pO2, Art, Temp Adj 80.0 - 100.0 mmHg 66.6 (L) pO2, Arterial 80.0 - 100.0 mmHg 66.6 (L) HCO3, Arterial 22 - 26 mmol/L 43.4 (H) Positive Base Excess, Art 0.0 - 2.0 mmol/L 14.4 (H) O2 Sat, Arterial 95 - 98 % 92.2 (L) pH, Galo 7.32 - 7.42 7.368 7.408 7.336 pH, Galo, Temp Adj 7.320 - 7.420 7.368 7.408 7.336 pCO2, Galo 39 - 55 mm Hg 72.0 (HH) 62.0 (HH) 76.1 (HH) pO2, Galo 30.0 - 50.0 mm Hg 26.0 (L) 40.2 92.2 (H) pO2, Galo, Temp Adj 30.0 - 50.0 mmHg 26.0 (L) 40.2 92.2 (H) Bicarbonate, Venous 24.0 - 30.0 mmol/L 40.5 (H) 38.2 (H) 39.8 (H) Positive Base Excess, Galo 0.0 - 2.0 mmol/L 11.7 (H) 10.8 (H) 10.4 (H) O2 Saturation Venous 60.0 - 85.0 % 43.3 (L) 74.0 96.2 (H) Pt Temp 37.0 37.0 37.0 37.0 Sample Site Left Brachial Artery O2 Device/Flow/% Cannula BIPAP BIPAP Text for Respiratory Called to PROVIDER on 02/10/2025 at 16:28 Called to PROVIDER on 02/10/2025 at 21:02 Called to PROVIDER on 02/10/2025 at 23:07 Called to RN on 02/11/2025 at 05:22 (HH): Data is critically high (L): Data is abnormally low (H): Data is abnormally high Radiology/Imaging: XR CHEST (2 VW) Final Result No acute cardiopulmonary disease. Stable subsegmental atelectasis on the right. CT CHEST PULMONARY EMBOLISM W CONTRAST Final Result 1. No evidence of pulmonary embolism or acute pulmonary abnormality. 2. Age-indeterminate T6 compression deformity, but likely chronic. 3. Gallbladder stones versus sludge. 4. Lobular liver contour, raising suspicion for cirrhosis or chronic liver disease. XR CHEST PORTABLE Final Result No acute cardiopulmonary process. ASSESSMENT / PLAN: Primary Problem(s): Acute respiratory failure with hypoxia and hypercapnia (HCC) Differential diagnoses: Pneumonia, viral illness, COPD exacerbation, CHF Condition is an acute or chronic illness or injury that poses threat to life or bodily function Condition is stable Treatment plan: Appreciate pulmonology Discussed with Dr. Perkins Recommendations: BiPAP, intubation, palliative care. Trilogy at home-Discussed with DR Russell. Settings: Cancel-Mas Pressure Support-14 cwp, Min PS 8 cwp, Max EPAP 8 cwp, Mi EPAP 4 cwp, TV 400-500 ml, RR 10 with 1L of Oxygen 02/17/2025-Will reach out to Pulm--ABGs worsening despite changes RT has made Changed to BiPAP 09/20 with a backup rate 12. May go up to an IPAP of 14. Clock if this does not work then only other option is tracheostomy, ventilator for palliative care Now qualifies for 2L of oxygen. I did call and spoke with his Barrel Loader, Dr Church at [place] and discussed his case on 02/17/2025. Likely related to MD due to no infectious process Trend ABGs, no further VBG's Respiratory viral panel-negative Monitor labs and replace electrolytes Nocturnal Pulse oximetry completed Imaging: no further imaging studies ordered today Medications: Continue nebs Medication Monitoring / High Risk Medications: none Chronic diastolic CHF Condition is a chronic stable condition Treatment plan: Monitor labs and replace electrolytes I&O, daily weights Imaging: no further imaging studies ordered today Last echo from 12/16/2024 showed an EF of 55 to 60%, mildly increased wall thickness, grade 1 diastolic dysfunction with normal LAP, moderate to severe aortic stenosis Medications: Continue Entresto Continue Toprol-XL Continue Lasix Nutrition status: Well developed, well nourished with no malnutrition I/O Daily Weight Nutritional Supplements as tolerated Fish Culturist consult initiated MALNUTRITION ASSESSMENT AND PLAN The following was documented by the Dietitian: Malnutrition Assessment Context of Malnutrition: Acute Illness (02/11/25823) Acute Illness - Energy Intake : No decrease in energy intake (02/11/25823) Acute Illness - Weight Loss : No weight loss (02/11/25823) Acute Illness - Body Fat Loss: No body fat loss (02/11/25823) Acute Illness - Muscle Mass Loss: No muscle mass loss (02/11/25823) Acute Illness - Fluid Accumulation : Moderate to Severe (02/11/25823) Acute Illness - Fluid Accumulation Location: Extremities (02/11/25823) Acute Illness - Hatchery Laborer Strength: Not Performed (02/11/25823) Acute Illness - Malnutrition Score: 7 (02/11/25823) Malnutrition Status: No malnutrition (02/11/25823) I agree with the dietitian's malnutrition assessment. Medical Nutrition Therapy: continue current nutrition therapy Hospital Prophylaxis: DVT: Lovenox Stress Ulcer: PPI Disposition: Shared decision making: All test results, treatment options and disposition options were discussed with the patient today Social determinants of health that may impact management: none Code status: Full Code Disposition: Discharge plan is home MIPS Advanced Care Planning documentation: [x] I have confirmed that the patient's Advance Care Plan is present, Code Status is documented, or surrogate decision maker is listed in the patient's medical record [If yes , STOP HERE] [] The patient's Advance Care Plan is NOT present because: [] I confirmed today that the patient does not wish or was not able to name a surrogate decision maker or provide and advance care plan. [] Hospice care is currently being provided or has been provided within the calendar year. [] I did NOT confirm today the presence of an Advance Care Plan or surrogate decision maker documented within the patient's medical record. [DOES NOT SATISFY [facility] PERFORMANCE] LORENA Brown CNP , LORENA-MAIL INSERTER-C 02/18/2025 9:04 AM FACE TO FACE: Patient qualified for home O2. Discussed with patient the medical necessity of home O2. Patient voiced understanding and agreement. LORENA Brown CNP, LORENA, MAIL INSERTER-C 02/18/2025, 9:04 AM This patient has Chronic Respiratory Failure secondary to Muscular Dystrophy, requiring noninvasive ventilation therapy in the home to maintain or optimize an acceptable PCO2 level. If the PCO2 level is not managed, this could cause harm or even . This could also reduce respiratory readmissions. BiPAP has proven to be ineffective in maintaining the patients PCO2 levels, now requiring noninvasive therapy. Cosigned by Arleth Milligan MD at 02/18/2025 2:46 PM EDT Associated attestation - Arleth Milligan MD - 02/18/2025 2:46 PM EDT Arleth Milligan M.D. Internal Medicine PA/MAIL INSERTER Attestation Note Patient: Evgeny Delgado Date of Admission: 02/10/2025 4:04 PM Date of Evaluation: 02/18/2025 I personally evaluated and examined the patient [id number] in conjunction with the PA/MAIL INSERTER and agree with the management and dispostition of the patient. Please see the PA/MAIL INSERTER's note for full details. My jeffries findings are: SUBJECTIVE: Evgeny Delgado is a 69 y.o. male who was seen today along with Jillian Plascencia CNP for follow up of Acute respiratory failure with hypoxia and hypercapnia (HCC). He is feeling better today. He denies and cough or SOB. He denies fever or chills and has been afebrile. We discussed home non invasive ventilation OBJECTIVE: Vitals: Temp: 97.2 F (36.2 C) BP: 109/63 Respirations: 20 Pulse: 74 SpO2: 96 % on 1 Lpm nasal cannula Weight Wt Readings from Last 3 Encounters: 02/18/25 91.4 kg (201 lb 6.4 oz) 12/16/24 90.3 kg (199 lb) 09/17/24 90.3 kg (199 lb) Body mass index is 29.73 kg/m . 24HR INTAKE/OUTPUT: Intake/Output Summary (Last 24 hours) at 02/18/2025 1444 Last data filed at 02/18/2025 1356 Gross per 24 hour Intake 960 ml Output 3925 ml Net -2965 ml Exam: GEN: Awake, alert and oriented x 3. EYES: EOMI, pupils equal NECK: Supple. No lymphadenopathy. No carotid bruit CVS: regular rate and rhythm, 2/6 systolic murmur PULM: CTA, no wheezes, rales or rhonchi, no acute respiratory distress ABD: Bowels sounds normal. Abdomen is soft. No distention. no tenderness to palpation. EXT: no edema bilaterally . No calf tenderness. NEURO: Moves all extremities. Motor and sensory are grossly intact SKIN: No rashes. No skin lesions. DATA: Latest Reference Range & Units 02/15/25 06:32 02/16/25 06:15 02/17/25 15:08 02/18/25 05:45 pH, Arterial 7.35 - 7.45 7.290 (L) 7.304 (L) 7.548 (H) 7.348 (L) pH, Art, Temp Adj 7.350 - 7.450 7.290 (LL) 7.304 (L) 7.548 (HH) 7.348 (L) pCO2, Art, Temp Adj 35.0 - 45.0 85.6 (HH) 81.3 (HH) 32.1 (L) 72.7 (HH) pCO2, Arterial 35 - 45 mmHg 85.6 (HH) 81.3 (HH) 32.1 (L) 72.7 (HH) pO2, Art, Temp Adj 80.0 - 100.0 mmHg 66.0 (L) 64.9 (L) 86.4 93.7 pO2, Arterial 80.0 - 100.0 mmHg 66.0 (L) 64.9 (L) 86.4 93.7 HCO3, Arterial 22 - 26 mmol/L 40.2 (H) 39.5 (H) 27.3 (H) 39.1 (H) Positive Base Excess, Art 0.0 - 2.0 mmol/L 10.1 (H) 9.4 (H) 5.4 (H) 10.1 (H) O2 Sat, Arterial 95 - 98 % 91.2 (L) 89.6 (L) 97.6 96.5 Microbiology / Cultures: Results Procedure Component Value Units Date/Time Respiratory Panel, Molecular, with COVID-19 (Restricted: peds pts or suitable admitted adults) [[id number]] Collected: 02/10/25 2156 Order Status: Completed Specimen: Nasopharyngeal Swab Updated: 02/11/25 0130 Specimen Description .NASOPHARYNGEAL SWAB Adenovirus PCR Not Detected Coronavirus 229E PCR Not Detected Coronavirus HKU1 PCR Not Detected Coronavirus NL63 PCR Not Detected Coronavirus OC43 PCR Not Detected SARS-CoV-2, PCR Not Detected Human Metapneumovirus PCR Not Detected Rhino/Enterovirus PCR Not Detected Influenza A by PCR Not Detected Influenza B by PCR Not Detected Parainfluenza 1 PCR Not Detected Parainfluenza 2 PCR Not Detected Parainfluenza 3 PCR Not Detected Parainfluenza 4 PCR Not Detected Resp Syncytial Virus PCR Not Detected Bordetella parapertussis by PCR Not Detected B Pertussis by PCR Not Detected Chlamydia pneumoniae By PCR Not Detected Mycoplasma pneumo by PCR Not Detected Comment: Performed by multiplexed nucleic acid assay. Imaging Data: CT CHEST PULMONARY EMBOLISM W CONTRAST Result Date: 02/10/2025 EXAMINATION: CTA OF THE CHEST 02/10/2025 5:37 pm TECHNIQUE: CTA of the chest was performed after the administration of intravenous contrast. Multiplanar reformatted images are provided for review. MIP images are provided for review. Automated exposure control, iterative reconstruction, and/or weight based adjustment of the mA/kV was utilized to reduce the radiation dose to as low as reasonably achievable. COMPARISON: None. HISTORY: ORDERING SYSTEM PROVIDED HISTORY: dyspnea, PE TECHNOLOGIST PROVIDED HISTORY: dyspnea, PE Decision Support Exception - unselect if not a suspected or confirmed emergency medical condition->Emergency Medical Condition (MA) FINDINGS: Pulmonary Arteries: Pulmonary arteries are adequately opacified for evaluation. No evidence of intraluminal filling defect to suggest pulmonary embolism. Main pulmonary artery is normal in caliber. Mediastinum: The heart size within normal limits. Coronary arterial calcifications. The thoracic aorta is normal caliber with mild atherosclerosis. The esophagus is unremarkable. No pathologically enlarged adenopathy. Lungs/pleura: Elevation of the right hemidiaphragm. Mild right basilar atelectasis versus scarring. No other focal consolidation, pleural effusion or pneumothorax. The central airways are patent. Upper Abdomen: High-density material within the gallbladder. Lobular liver contour. Small hiatal hernia. Soft Tissues/Bones: Age-indeterminate T6 compression deformity but likely chronic. No other acute bone or soft tissue abnormality. 1. No evidence of pulmonary embolism or acute pulmonary abnormality. 2. Age-indeterminate T6 compression deformity, but likely chronic. 3. Gallbladder stones versus sludge. 4. Lobular liver contour, raising suspicion for cirrhosis or chronic liver disease. XR CHEST PORTABLE Result Date: 02/10/2025 EXAMINATION: ONE XRAY VIEW OF THE CHEST 02/10/2025 4:29 pm COMPARISON: None. HISTORY: ORDERING SYSTEM PROVIDED HISTORY: dyspnea TECHNOLOGIST PROVIDED HISTORY: dyspnea FINDINGS: Lines and tubes: None The lungs are clear. Heart size is normal. No acute cardiopulmonary process. ASSESSMENT: Principal Problem: Acute respiratory failure with hypoxia and hypercapnia (HCC) Active Problems: Nonrheumatic aortic valve stenosis Muscular dystrophies (HCC) Type 2 diabetes mellitus, without long-term current use of insulin (HCC) Chronic diastolic heart failure (HCC) Resolved Problems: * No resolved hospital problems. * PLAN: I agree with the assessment, plan and medical decision making documentation as outlined by APC: Treatment plan: Pulm consult appreciated Recommends NIV at home due to continued CO2 retention from muscular dystrophy Per SS insurance denied Trilogy NIV however pt is unsafe to be home without this tx due to severe hypercanpia Labs: Trend ABGs Medications: Continue Entresto, Toprol, Lasix Nutrition status: Well developed, well nourished with no malnutrition Fish Culturist consult appreciated Monitor daily weights Monitor daily I/O's Medication monitoring / High risk medications: none Disposition: Discharge plan is pending availability of NIV delivery SHARED APC VISIT, PHYSICIAN ATTESTATION: [id number] I personally performed a substantive part of the MDM during the patient's visit. I personally evaluated and examined the patient. I personally made or approved the documented management plan and acknowledge its risk of complications. Test interpretation: My independent EKG interpretation: Normal sinus rhythm with first degree AV block and RBBB My independent imaging interpretation: CXR shows no acute process Management and/or test interpretation discussed with LEVY Drummond MD , M.D. 02/18/2025 2:44 PM Vitals and assessment completed at this time. Patient up to chair, A&O x4. No c/o pain. Lungs diminished, heart sounds normal. BLE edema noted, R<L. No needs at this time. Call light and bedside table in reach. Chair alarm on. Will continue to monitor RT called to pt's room due to Bipap alarming and SpO2 around 82%. RT observed pt sleeping and noted continual low tidal volumes of 50ml-120ml for approximately 1 min with minimal mask leak. Pt's tidal volume did return to approx 470 ml after pt was easily aroused with SpO2 around 95%. Patient A&O x4, calm, and cooperative. Vital signs and head to toe assessment completed at this time, see flowsheets for details. Patient was briefly educated on medications due tonight. Patient denies needs at this time. Call light within reach. Bedside table within reach, bed in lowest position, bed/chair wheels locked, and alarm is set. Care ongoing. RESPIRATORY ASSESSMENT PROTOCOL Patient Name: Evgeny Delgado Room#: 0328/0328-01 : 1955 Admitting diagnosis: Acute on chronic respiratory failure with hypoxia and hypercapnia ([facility]) [J96.21, J96.22] Medical History: Past Medical History: Diagnosis Date Aortic stenosis CHF (congestive heart failure) ([facility]) Diabetes mellitus ([facility]) FSHD (facioscapulohumeral muscular dystrophy) ([facility]) HFrEF (heart failure with reduced ejection fraction) ([facility]) HLD (hyperlipidemia) HTN (hypertension) Nonischemic cardiomyopathy ([facility]) PATIENT ASSESSMENT LABORATORY DATA Hematology: Lab Results Component Value Date/Time WBC 6.0 02/15/2025 06:00 AM RBC 5.07 02/15/2025 06:00 AM HGB 12.7 02/15/2025 06:00 AM HCT 45.6 02/15/2025 06:00 AM PLT 151 02/15/2025 06:00 AM Chemistry: Lab Results Component Value Date/Time PHART 7.548 02/17/2025 03:08 PM [id number] 32.1 02/17/2025 03:08 PM PO2ART 86.4 02/17/2025 03:08 PM [id number] 97.6 02/17/2025 03:08 PM OFR1UCB 27.3 02/17/2025 03:08 PM PBEA 5.4 02/17/2025 03:08 PM VITALS Pulse: 67 Respirations: 30 (anxious) BP: (!) 98/59 SpO2: 98 % O2 Device: Nasal cannula Temp: 98.2 F (36.8 C) SKIN COLOR [x] Normal [] Pale [] Dusky [] Cyanotic RESPIRATORY PATTERN [x] Normal [x] Dyspnea [] Romel-Byrd [] Kussmaul [] Biots AMBULATORY [] Yes [] No [x] With Assistance Patient Acuity 0 1 2 3 4 Score Level of Consciousness (LOC) [x] Alert & Oriented or Pt normal LOC [] Confused;follows directions [] Confused & uncooper-ative [] Obtunded [] Comatose 0 Respiratory Rate (RR) [x] Reg. rate & pattern. 12 - 20 bpm [] Increased RR. Greater than 20 bpm [] SOB w/ exertion or RR greater than 24 bpm [] Access- ory muscle use at rest. Abn. resp. [] SOB at rest. 0 Bilateral Breath Sounds (BBS) [] Clear [] Diminish-ed bases [x] Diminish-ed t/o, or rales [] Sporadic, scattered wheezes or rhonchi [] Persistentwheezes and, or absent BBS 2 Cough [] Strong, effective, & non-prod. [x] Effective & prod. Less than 25 ml (2 TBSP) over past 24 hrs [] Ineffective & non-prod to less than 25 ML over past 24 hrs [] Ineffective and, or greater than 25 ml sputum prod. past 24 hrs. [] Nonspon- taneous; Requires suctioning 1 Pulmonary History (PULM HX) [] No smoking and no chronic pulmonary history [] Former smoker. Quit over 12 mos. ago [] Current smoker or quit w/ in 12 mos [] Pulm. History and, or 20 pk/yr smoking hx [x] Admitted w/ acute pulm. dx and, or has been admitted w/ pulm. dx 2 or more times over past 12 mos 4 Surgical History this Admit (SURG HX) [x] No surgery [] General surgery [] Lower abdominal [] Thoracic or upper abdominal [] Thoracic w/ pulm. disease 0 Chest X-Ray (CXR)/CT Scan [] Clear or not applicable [] Not available [x] Atelectasis or pleural effusions [] Localized infiltrate or pulm. edema [] Con-solidated Infiltrates, bilateral, or in more than 1 lobe 2 TOTAL ACUITY: 9 CARE PLAN If Acuity Level is 2, 3, or 4 in any of the following: [x] BILATERAL BREATH SOUNDS (BBS) [x] PULMONARY HISTORY (PULM HX) [] Respiratory Rate (RR) Goal: Improve respiratory functions in patients with airway disease and decrease WOB [x] AEROSOL PROTOCOL Total Acuity: 14-28 [] Secondary Assessment in 24 hrs Total Acuity: 9-13 [x] Secondary Assessment in 24 hrs Total Acuity: 4-8 [] Secondary Assessment in 24 hrs Total Acuity: 0-3 [] Secondary Assessment in 48 hrs HHN AEROSOL THERAPY with [physician-ordered bronchodilator(s)] q 4 & Albuterol PRN q2 hrs. Breath-Actuated Neb if BBS Acuity = 4, and pt. can use MP. Notify physician if condition deteriorates. HHN AEROSOL THERAPY with [physician-ordered bronchodilator(s)] QID and Albuterol PRN q4 hrs. Breath-Actuated Neb if BBS Acuity = 4, and pt. can use MP. Notify physician if condition deteriorates. MDI THERAPY with 2 actuations of [physician-ordered bronchodilator(s)] via spacer TID Albuterol and PRN q4 hrs. If unable to utilize MDI: HHN [physician-ordered bronchodilator(s)] TID and Albuterol PRN q4 hrs. Notify physician if condition deteriorates. MDI THERAPY with [physician-ordered bronchodilator(s)] via spacer TID PRN. If unable to utilize MDI: HHN [physician-ordered bronchodilator(s)] TID PRN. Notify physician if condition deteriorates. If Acuity Level is 2, 3, or 4 in any of the following: [] COUGH [] SURGICAL HISTORY (SURG HX) [x] CHEST XRAY (CXR) Goal: Improvement in sputum mobilization in patients with ineffective airway clearance. Reverse atelectasis. [x] Bronchopulmonary Hygiene Protocol Total Acuity: 14-28 [] Secondary Assessment in 24 hrs Total Acuity: 9-13 [x] Secondary Assessment in 24 hrs Total Acuity: 4-8 [] Secondary Assessment in 24 hrs Total Acuity: 0-3 [] Secondary Assessment in 48 hrs METANEB QID with [physician-ordered bronchodilator(s)] if CXR Acuity = 4; otherwise: PD&P, Oscillatory Therapy, or Vest QID & PRN AND PEP QID & PRN NT Sxn PRN for ineffective cough METANEB QID with [physician-ordered bronchodilator(s)] if CXR Acuity = 4; otherwise: PD&P, Oscillatory Therapy or Vest QID & PRN AND PEP QID & PRN NT Sxn PRN for ineffective cough PD&P, Oscillatory Therapy, or Vest TID & PRN AND PEP TID & PRN Instruct patient to self-perform IS q1hr WA If Acuity Level is 2 or above in the following: [] PULMONARY HISTORY (PULM HX) Goal: Assist patient in quitting smoking to slow or stop the progression of lung disease. [] Smoking Cessation Protocol SMOKING CESSATION EDUCATION provided according to policy [id number]: (fabian with an X) ____Yes ____ No ____ NA Smoking Cessation Booklet given: ____Yes ____No ____Patient Refused Physical Therapy Facility/Department: [facility] Daily Treatment Note NAME: Evgeny Delgado : 1955 Date of Service: 02/18/2025 Discharge Recommendations: Continue to assess pending progress Patient Diagnosis(es): The primary encounter diagnosis was Acute respiratory failure with hypoxia and hypercapnia (HCC). Diagnoses of Muscular dystrophies (HCC), Chronic diastolic heart failure (HCC), and Chronic respiratory failure with hypoxia and hypercapnia (HCC) were also pertinent to this visit. Assessment Assessment: Transfers:SBA. Pt ambulated 80ftx, 92vls13 with 4WW and SBA for safety. Slow cadance noted, no LOB or unsteadiness. Seated exercises B LE x20. Standing urinal use. Activity Tolerance: Patient tolerated treatment well Plan Physical Therapy Plan General Plan: 2 times a day 7 days a week Specific Instructions for Next Treatment: 1x per week on weekends and holidays Current Treatment Recommendations: Strengthening;ROM;Balance training;Functional mobility training;Transfer training;Gait training;Stair training;Home exercise program;Safety education & training;Patient/Caregiver education & training;Equipment evaluation, education, & procurement;Positioning;Therapeuti c activities Restrictions Restrictions/Precautions Restrictions/Precautions: General Precautions, Fall Risk Required Braces or Orthoses?: Yes Required Braces or Orthoses Right Lower Extremity Brace: Ankle Foot Orthotics Left Lower Extremity Brace: Dinorah Foot Orthotics Subjective Subjective Subjective: Pt. in chair, just removed fromf bi-pap and agreeable to therapy at this time. Pain: denies Objective Bed Mobility Training Bed Mobility Training: No Transfer Training Transfer Training: Yes Overall Level of Assistance: Stand by assistance Interventions: Verbal cues Sit to Stand: Stand by assistance Stand to Sit: Stand by assistance Gait Gait Training: Yes Overall Level of Assistance: Stand by assistance Distance (ft): 95 Feet Assistive Device: Walker, rollator;Gait belt Interventions: Safety awareness training Speed/Diane: Slow Step Length: Left shortened;Right shortened Swing Pattern: Left asymmetrical;Right asymmetrical Gait Abnormalities: Hip hike;Foot drop PT Exercises Exercise Treatment: Seated exercises B LE x20 Other Specialty Interventions Other Treatments/Modalities: standing urinal use Safety Devices Type of Devices: Call light within reach;Chair alarm in place;Left in chair;All fall risk precautions in place Goals Short Term Goals Time Frame for Short Term Goals: 20 visits Short Term Goal 1: Patient will tolerate 20-30' ther-ex in order to increase endurance and ease ADLS Short Term Goal 2: Patient will ascend/descend 4 steps with handrail with supervision assistance in order to safely enter/exit the home Short Term Goal 3: Patient will complete bed mobility and transfers independently in order to return to PLOF Short Term Goal 4: Patient will ambulate 200 feet with rollator with supervision assistance in order to return to PLOF Education Patient Education Education Given To: Patient Education Provided: Role of Therapy;Plan of Care Education Method: Verbal Barriers to Learning: None Education Outcome: Verbalized understanding Therapy Time Individual Concurrent Group Co-treatment Time In 1450 Time Out 1519 Minutes 29 Silvia Stearns PTA Cosigned by Rob Rojas PT at 02/27/2025 7:42 AM EDT Occupational Therapy Facility/Department: [facility] Daily Treatment Note NAME: Evgeny Delgado : 1955 Date of Service: 02/17/2025 Discharge Recommendations: Continue to assess pending progress Patient Diagnosis(es): The primary encounter diagnosis was Acute respiratory failure with hypoxia and hypercapnia (HCC). Diagnoses of Muscular dystrophies (HCC), Chronic diastolic heart failure (HCC), and Chronic respiratory failure with hypoxia and hypercapnia (HCC) were also pertinent to this visit. Assessment Activity Tolerance: Patient tolerated treatment well Discharge Recommendations: Continue to assess pending progress Plan Occupational Therapy Plan Times Per Day: Once a day Days Per Week: 7 Days Current Treatment Recommendations: Strengthening;Balance training;Endurance training;Functional mobility training;Patient/Caregiver education & training;Safety education & training;Self-Care / ADL;Equipment evaluation, education, & procurement;ROM Restrictions Restrictions/Precautions Restrictions/Precautions: General Precautions;Fall Risk Required Braces or Orthoses Right Lower Extremity Brace: Ankle Foot Orthotics Left Lower Extremity Brace: Dinorah Foot Orthotics Subjective Subjective Subjective: Pt sitting up in bedside chair upon arrival. Pt agreed to participate in therapy session. Pain: Pt had no complaints of pain. Objective Vitals ADL Toileting: Stand by assistance Toileting Skilled Clinical Factors: SBA to complete heidi care and clothing mgmt. OT Exercises Exercise Treatment: Pt completed BUE ther ex with 1# dumbbell x 5 planes x 15 reps x 1 set to increase UE strength and endurance in order to ease completion of ADL tasks. Pt required RBs as needed secondary to fatigue. Safety Devices Type of Devices: Call light within reach;Chair alarm in place;Left in chair;All fall risk precautions in place Patient Education Education Given To: Patient Education Provided: Role of Therapy;Plan of Care;Home Exercise Program Education Method: Verbal Barriers to Learning: None Education Outcome: Verbalized understanding Goals Short Term Goals Time Frame for Short Term Goals: 21 visits Short Term Goal 1: Patient to be educated on d/c folder, AE/DME and home safety to ensure safe and indep return home. Short Term Goal 2: Patient to safely complete ADL routine c mod I c use of AE/DME as needed to ensure safe and independnet return home. Short Term Goal 3: Patient to engage in 15 minutes of ther ex/ther act c no more than 2 RB to improve strength and activity tolerance for ADL. AM-PAC - ADL Therapy Time Individual Concurrent Group Co-treatment Time In 7 Time Out 1342 Minutes 25 KATHY Garland Cosigned by Fauzia Mejia OTR/L at 02/18/2025 2:40 PM EDT Images from the original note were not included. Palliative Care Inpatient Patient: Evgeny Delgado Room: [address] [place] [address] Reason For Consult Goals of care evaluation Distress management Guidance and support Facilitate communications Assistance in coordinating care Code Status: DNR-CCA Impression: Evgeny Delgado is a 69 y.o. year old male has a past medical history of Aortic stenosis, CHF (congestive heart failure) ([facility]), Diabetes mellitus ([facility]), FSHD (facioscapulohumeral muscular dystrophy) ([facility]), HFrEF (heart failure with reduced ejection fraction) ([facility]), HLD (hyperlipidemia), HTN (hypertension), and Nonischemic cardiomyopathy ([facility]).. Currently hospitalized for the management of Respiratory failure. The Palliative Care Team is following to assist with patient support. Vital Signs BP (!) 98/59 Pulse 67 Temp 98.2 F (36.8 C) (Temporal) Resp 30 Comment: anxious Ht 1.753 m (5' 9 ) Wt 90.9 kg (200 lb 8 oz) SpO2 98% BMI 29.61 kg/m Patient Active Problem List Diagnosis NSTEMI (non-ST elevated myocardial infarction) ([facility]) Dyspnea Nonrheumatic aortic valve stenosis Acute respiratory failure with hypoxia and hypercapnia ([facility]) HFrEF (heart failure with reduced ejection fraction) ([facility]) Closed wedge compression fracture of T7 vertebra ([facility]) Muscular dystrophies ([facility]) Dysphagia Type 2 diabetes mellitus, without long-term current use of insulin ([facility]) Chronic respiratory failure ([facility]) Chronic diastolic heart failure ([facility]) Acute on chronic respiratory failure with hypoxia and hypercapnia ([facility]) Palliative Interaction: Evgeny is resting in the chair. Family member at bedside. Wing Commander present when BIOMETRICS SPECIALIST discuss that current treatment is not improving blood gasses and the plan to change settings and recheck gasses in a few hours. Egveny states that he does not want a ventilator at this time. He would like to continue with the current treatment plan and prays that his gasses will improve and he will be able to go home soon. Goals/Plan of care Validating patient/family distress Continued communication updates Palliative care office: [phone] Patient placed on BIPAP 12/6 28% per order. Patient only getting return Vt of 100-200s. Increased IPAP to 16, Vt now 400-500s. Patient appears anxious but says he is comfortable. [facility] Cardiopulmonary Services [address] [place] [address] Name: Evgeny Delgado : 1955 Diagnisis: Acute respiratory failure with hypoxia and hypercapnia (HCC) Height: 175.3 cm (5' 9 ) Weight - Scale: 90.9 kg (200 lb 8 oz) Home Oxygen? No A home oxygen evaluation has been completed. [x]Patient is an inpatient. It is expected that the patient will be discharged within the next 48 hours. Qualified provider to write order for home prescription if patient qualifies. If patient is active, arrange for Home Medical supplier to assess for Oxygen Conserving Device per pulse oximetry. []Patient is an outpatient. Results will be faxed to the ordering provider. Qualified provider to write order for home prescription if patient qualifies and arranges for home oxygen. Patient was placed on room air for 10 minutes. SpO2 was 84 % on room air at rest. Patients SpO2 was below 88% and qualified for home oxygen. Oxygen was applied at 2 lpm continuous via nasal cannula to maintain a SpO2 between 90-92% while at rest. Actual SpO2 was 91 %. Physical Therapy Facility/Department: [facility] Daily Treatment Note NAME: Evgeny [place] : 1955 Date of Service: 02/17/2025 Discharge Recommendations: Continue to assess pending progress Patient Diagnosis(es): The primary encounter diagnosis was Acute respiratory failure with hypoxia and hypercapnia (HCC). Diagnoses of Muscular dystrophies (HCC), Chronic diastolic heart failure (HCC), and Chronic respiratory failure with hypoxia and hypercapnia (HCC) were also pertinent to this visit. Assessment Assessment: Transfers:SBA/CGA. Pt ambulated 80ftx1 with 4WW and CGA/SBA for safety. Slow cadance noted, no LOB or unsteadiness. Pt. requried v/c to stay within walker with turns with fair carryover. Reclined and seated exercises B LE x20. Activity Tolerance: Patient tolerated treatment well Plan Physical Therapy Plan General Plan: 2 times a day 7 days a week Specific Instructions for Next Treatment: 1x per week on weekends and holidays Current Treatment Recommendations: Strengthening;ROM;Balance training;Functional mobility training;Transfer training;Gait training;Stair training;Home exercise program;Safety education & training;Patient/Caregiver education & training;Equipment evaluation, education, & procurement;Positioning;Therapeuti c activities Restrictions Restrictions/Precautions Restrictions/Precautions: General Precautions, Fall Risk Required Braces or Orthoses?: Yes Required Braces or Orthoses Right Lower Extremity Brace: Ankle Foot Orthotics Left Lower Extremity Brace: Dinorah Foot Orthotics Subjective Subjective Subjective: Pt. up in chair upon arrival, agreeable to therapy at this time. Pain: denies Objective Bed Mobility Training Bed Mobility Training: No Transfer Training Transfer Training: Yes Overall Level of Assistance: Stand by assistance Interventions: Verbal cues Sit to Stand: Stand by assistance Stand to Sit: Stand by assistance Gait Gait Training: Yes Overall Level of Assistance: Stand by assistance Distance (ft): 80 Feet Assistive Device: Walker, rollator;Gait belt Interventions: Safety awareness training Speed/Diane: Slow Step Length: Left shortened;Right shortened Swing Pattern: Left asymmetrical;Right asymmetrical Gait Abnormalities: Hip hike;Foot drop PT Exercises Exercise Treatment: reclined and seated exercises B LE x20 Safety Devices Type of Devices: Call light within reach;Chair alarm in place;Left in chair;All fall risk precautions in place Goals Short Term Goals Time Frame for Short Term Goals: 20 visits Short Term Goal 1: Patient will tolerate 20-30' ther-ex in order to increase endurance and ease ADLS Short Term Goal 2: Patient will ascend/descend 4 steps with handrail with supervision assistance in order to safely enter/exit the home Short Term Goal 3: Patient will complete bed mobility and transfers independently in order to return to PLOF Short Term Goal 4: Patient will ambulate 200 feet with rollator with supervision assistance in order to return to PLOF Education Patient Education Education Given To: Patient Education Provided: Role of Therapy;Plan of Care Education Method: Verbal Barriers to Learning: None Education Outcome: Verbalized understanding;Continued education needed Therapy Time Individual Concurrent Group Co-treatment Time In 0849 Time Out 0918 Minutes 29 Silvia Stearns PTA Cosigned by Lee Andrews PT at 02/17/2025 12:31 PM EDT IT NETWORK ADMINISTRATOR - Progress Note Patient - Evgeny Delgado Date of Admission - 02/10/2025 4:04 PM Date of Evaluation - 02/17/2025 Hospital Day - 7 SUBJECTIVE: The Evgeny Delgado is a 69 y.o. male resting in bed no distress. On 2L of oxygen. Up on bedside no distress. Awaiting for equipment to arrive at home. Less cough ROS: Constitutional: negative for fevers, and negative for chills. Respiratory: negative for shortness of breath, positive for cough, and negative for wheezing Cardiovascular: negative for chest pain, and negative for palpitations Gastrointestinal: negative for abdominal pain, negative for nausea,negative for vomiting, negative for diarrhea, and negative for constipation All other systems were reviewed with the patient and are negative unless otherwise stated in HPI. OBJECTIVE: VITAL SIGNS: Patient Vitals for the past 8 hrs: BP Temp Temp src Pulse Resp SpO2 Weight 02/17/25 0741 -- -- -- -- -- (!) 87 % -- 02/17/25 0714 (!) 98/59 98.2 F (36.8 C) Temporal 67 20 94 % -- 02/17/25 0526 -- -- -- -- -- -- 90.9 kg (200 lb 8 oz) 02/17/25 0400 -- -- -- -- -- 96 % -- 02/17/25 0200 -- -- -- -- -- 95 % -- 02/17/25 0050 -- -- -- -- -- 98 % -- Temp: 98.2 F (36.8 C) Temp range: Temp Av.2 F (36.8 C) Min: 98.1 F (36.7 C) Max: 98.2 F (36.8 C) BP: (!) 98/59 BP Range: Systolic (24hrs), Av , Min:98 , Max:99 Diastolic (24hrs), Av, Min:57, Max:59 Pulse: 67 Pulse Range: Pulse Av Min: 67 Max: 81 Respirations: 20 Resp Range: Resp Av Min: 18 Max: 20 SpO2: (!) 87 % on supplemental O2 SpO2 range: SpO2 Av % Min: 87 % Max: 98 % Weight Wt Readings from Last 3 Encounters: 02/17/25 90.9 kg (200 lb 8 oz) 12/16/24 90.3 kg (199 lb) 09/17/24 90.3 kg (199 lb) Body mass index is 29.61 kg/m . 24HR INTAKE/OUTPUT: Intake/Output Summary (Last 24 hours) at 02/17/2025 0816 Last data filed at 02/16/2025 2243 Gross per 24 hour Intake 240 ml Output 1450 ml Net -1210 ml PHYSICAL EXAM: GEN: Awake and following commands: [] No [x] Yes MENTAL STATUS: alert and oriented x3. DISTRESS: Acute respiratory distress: [x] No [] Yes EYES: EOMI, pupils equal NECK: Supple. No lymphadenopathy. No carotid bruit CVS: regular rate and rhythm, no audible murmur PULM: clear diminished right base, no acute respiratory distress ABD: Bowels sounds normal. Abdomen is soft. No distention. no tenderness to palpation. EXT: trace edema LLE . No calf tenderness. NEURO: Moves all extremities. Motor and sensory are grossly intact SKIN: No rashes. No skin lesions. DATA: Complete Blood Count: Recent Labs 02/15/25 0600 WBC 6.0 RBC 5.07 HGB 12.7* HCT 45.6 MCV 89.9 RDW 18.5* PLT 151 NEUTROABS 4.14 LYMPHOPCT 22* LYMPHSABS 1.32 MONOPCT 6 BASOPCT 0 IMMGRAN 1* Recent Blood Glucose: Recent Labs 02/15/25 0600 GLUCOSE 122* Comprehensive Metabolic Profile: Recent Labs 02/15/25 0600 BUN 16 CREATININE 0.5* NA 141 K 4.0 CL 96* CALCIUM 8.7 ANIONGAP 9 CO2 36* Urinalysis: Lab Results Component Value Date/Time NITRU NEGATIVE 04/18/2023 11:46 AM COLORU Yellow 04/18/2023 11:46 AM PHUR 7.0 04/18/2023 11:46 AM WBCUA None 04/18/2023 11:46 AM RBCUA 0 TO 2 04/18/2023 11:46 AM LEUKOCYTESUR NEGATIVE 04/18/2023 11:46 AM UROBILINOGEN Normal 04/18/2023 11:46 AM BILIRUBINUR NEGATIVE 04/18/2023 11:46 AM GLUCOSEU NEGATIVE 04/18/2023 11:46 AM KETUA NEGATIVE 04/18/2023 11:46 AM HgBA1c: Lab Results Component Value Date/Time LABA1C 7.6 04/06/2023 08:43 AM TSH: Lab Results Component Value Date/Time TSH 1.83 04/17/2023 08:18 PM Lactic Acid: No results found for: LACTA High Sensitivity Troponin: No results for input(s): TROPHS in the last 72 hours. Pro-BNP: Lab Results Component Value Date PROBNP 147 (H) 02/10/2025 D-Dimer: Lab Results Component Value Date DDIMER 0.35 02/10/2025 ABGs: Latest Reference Range & Units 02/15/25 06:32 02/16/25 06:15 pH, Arterial 7.35 - 7.45 7.290 (L) 7.304 (L) pH, Art, Temp Adj 7.350 - 7.450 7.290 (LL) 7.304 (L) pCO2, Art, Temp Adj 35.0 - 45.0 85.6 (HH) 81.3 (HH) pCO2, Arterial 35 - 45 mmHg 85.6 (HH) 81.3 (HH) pO2, Art, Temp Adj 80.0 - 100.0 mmHg 66.0 (L) 64.9 (L) pO2, Arterial 80.0 - 100.0 mmHg 66.0 (L) 64.9 (L) HCO3, Arterial 22 - 26 mmol/L 40.2 (H) 39.5 (H) Positive Base Excess, Art 0.0 - 2.0 mmol/L 10.1 (H) 9.4 (H) O2 Sat, Arterial 95 - 98 % 91.2 (L) 89.6 (L) Pt Temp 37.0 37.0 Sample Site Right Brachial Artery Right Radial Artery O2 Device/Flow/% Cannula Cannula Text for Respiratory Called to RN on 02/15/2025 at 06:35 Called to RN on 02/16/2025 at 06:18 (LL): Data is critically low (HH): Data is critically high (L): Data is abnormally low (H): Data is abnormally high Latest Reference Range & Units 02/13/25 10:10 02/14/25 06:05 pH, Arterial 7.35 - 7.45 7.359 7.339 (L) pH, Art, Temp Adj 7.350 - 7.450 7.359 7.339 (L) pCO2, Art, Temp Adj 35.0 - 45.0 71.6 (HH) 74.2 (HH) pCO2, Arterial 35 - 45 mmHg 71.6 (HH) 74.2 (HH) pO2, Art, Temp Adj 80.0 - 100.0 mmHg 63.4 (L) 129.5 (H) pO2, Arterial 80.0 - 100.0 mmHg 63.4 (L) 129.5 (H) HCO3, Arterial 22 - 26 mmol/L 39.5 (H) 39.0 (H) Positive Base Excess, Art 0.0 - 2.0 mmol/L 10.6 (H) 9.8 (H) O2 Sat, Arterial 95 - 98 % 90.5 (L) 98.3 (H) (HH): Data is critically high (L): Data is abnormally low (H): Data is abnormally high Latest Reference Range & Units 02/11/25 09:04 02/11/25 11:59 02/12/25 07:21 pH, Arterial 7.35 - 7.45 7.343 (L) 7.335 (L) pH, Art, Temp Adj 7.350 - 7.450 7.343 (L) 7.335 (L) pCO2, Art, Temp Adj 35.0 - 45.0 64.9 (HH) 65.4 (HH) pCO2, Arterial 35 - 45 mmHg 64.9 (HH) 65.4 (HH) pO2, Art, Temp Adj 80.0 - 100.0 mmHg 73.1 (L) 80.8 pO2, Arterial 80.0 - 100.0 mmHg 73.1 (L) 80.8 HCO3, Arterial 22 - 26 mmol/L 34.5 (H) 34.1 (H) Positive Base Excess, Art 0.0 - 2.0 mmol/L 6.3 (H) 5.8 (H) O2 Sat, Arterial 95 - 98 % 93.4 (L) 94.9 (L) pH, Galo 7.32 - 7.42 7.321 pH, Galo, Temp Adj 7.320 - 7.420 7.321 pCO2, Galo 39 - 55 mm Hg 82.0 (HH) pO2, Galo 30.0 - 50.0 mm Hg 35.3 pO2, Galo, Temp Adj 30.0 - 50.0 mmHg 35.3 Bicarbonate, Venous 24.0 - 30.0 mmol/L 41.4 (H) Positive Base Excess, Galo 0.0 - 2.0 mmol/L 11.3 (H) O2 Saturation Venous 60.0 - 85.0 % 59.9 (L) Pt Temp 37.0 37.0 37.0 Sample Site Right Radial Artery Right Brachial Artery Set Rate 1 1 O2 Device/Flow/% Cannula Cannula HEATED HIGH FLOW Text for Respiratory Called to RN on 02/11/2025 at 09:07 Called to RN on 02/11/2025 at 12:02 Called to RN on 02/12/2025 at 07:24 (HH): Data is critically high (L): Data is abnormally low (H): Data is abnormally high Latest Reference Range & Units 02/10/25 16:26 02/10/25 21:01 02/10/25 23:05 02/11/25 05:20 pH, Arterial 7.35 - 7.45 7.389 pH, Art, Temp Adj 7.350 - 7.450 7.389 pCO2, Art, Temp Adj 35.0 - 45.0 73.5 (HH) pCO2, Arterial 35 - 45 mmHg 73.5 (HH) pO2, Art, Temp Adj 80.0 - 100.0 mmHg 66.6 (L) pO2, Arterial 80.0 - 100.0 mmHg 66.6 (L) HCO3, Arterial 22 - 26 mmol/L 43.4 (H) Positive Base Excess, Art 0.0 - 2.0 mmol/L 14.4 (H) O2 Sat, Arterial 95 - 98 % 92.2 (L) pH, Galo 7.32 - 7.42 7.368 7.408 7.336 pH, Galo, Temp Adj 7.320 - 7.420 7.368 7.408 7.336 pCO2, Galo 39 - 55 mm Hg 72.0 (HH) 62.0 (HH) 76.1 (HH) pO2, Galo 30.0 - 50.0 mm Hg 26.0 (L) 40.2 92.2 (H) pO2, Galo, Temp Adj 30.0 - 50.0 mmHg 26.0 (L) 40.2 92.2 (H) Bicarbonate, Venous 24.0 - 30.0 mmol/L 40.5 (H) 38.2 (H) 39.8 (H) Positive Base Excess, Galo 0.0 - 2.0 mmol/L 11.7 (H) 10.8 (H) 10.4 (H) O2 Saturation Venous 60.0 - 85.0 % 43.3 (L) 74.0 96.2 (H) Pt Temp 37.0 37.0 37.0 37.0 Sample Site Left Brachial Artery O2 Device/Flow/% Cannula BIPAP BIPAP Text for Respiratory Called to PROVIDER on 02/10/2025 at 16:28 Called to PROVIDER on 02/10/2025 at 21:02 Called to PROVIDER on 02/10/2025 at 23:07 Called to RN on 02/11/2025 at 05:22 (HH): Data is critically high (L): Data is abnormally low (H): Data is abnormally high Radiology/Imaging: XR CHEST (2 VW) Final Result No acute cardiopulmonary disease. Stable subsegmental atelectasis on the right. CT CHEST PULMONARY EMBOLISM W CONTRAST Final Result 1. No evidence of pulmonary embolism or acute pulmonary abnormality. 2. Age-indeterminate T6 compression deformity, but likely chronic. 3. Gallbladder stones versus sludge. 4. Lobular liver contour, raising suspicion for cirrhosis or chronic liver disease. XR CHEST PORTABLE Final Result No acute cardiopulmonary process. ASSESSMENT / PLAN: Primary Problem(s): Acute respiratory failure with hypoxia and hypercapnia (HCC) Differential diagnoses: Pneumonia, viral illness, COPD exacerbation, CHF Condition is an acute or chronic illness or injury that poses threat to life or bodily function Condition is stable Treatment plan: Appreciate pulmonology Discussed with Dr. Perkins Recommendations: BiPAP, intubation, palliative care. Trilogy at home-Discussed with DR Russell. Settings: Cancel-Mas Pressure Support-14 cwp, Min PS 8 cwp, Max EPAP 8 cwp, Mi EPAP 4 cwp, TV 400-500 ml, RR 10 with 1L of Oxygen 02/17/2025-Will reach out to Pulm--ABGs worsening despite changes RT has made Changed to BiPAP 09/20 with a backup rate 12. May go up to an IPAP of 14. Clock if this does not work then only other option is tracheostomy, ventilator for palliative care Now qualifies for 2L of oxygen. I did call and spoke with his Barrel Loader, Dr Church at [place] and discussed his case. Likely related to MD due to no infectious process Off High Flow and Bipap Trend ABGs, no further VBG's Respiratory viral panel-negative Monitor labs and replace electrolytes Nocturnal Pulse oximetry completed Imaging: no further imaging studies ordered today Medications: Continue nebs Medication Monitoring / High Risk Medications: none Chronic diastolic CHF Condition is a chronic stable condition Treatment plan: Monitor labs and replace electrolytes I&O, daily weights Imaging: no further imaging studies ordered today Last echo from 12/16/2024 showed an EF of 55 to 60%, mildly increased wall thickness, grade 1 diastolic dysfunction with normal LAP, moderate to severe aortic stenosis Medications: Continue Entresto Continue Toprol-XL Continue Lasix Nutrition status: Well developed, well nourished with no malnutrition I/O Daily Weight Nutritional Supplements as tolerated Fish Culturist consult initiated MALNUTRITION ASSESSMENT AND PLAN The following was documented by the Dietitian: Malnutrition Assessment Context of Malnutrition: Acute Illness (02/11/25823) Acute Illness - Energy Intake : No decrease in energy intake (02/11/25823) Acute Illness - Weight Loss : No weight loss (02/11/25823) Acute Illness - Body Fat Loss: No body fat loss (02/11/25823) Acute Illness - Muscle Mass Loss: No muscle mass loss (02/11/25823) Acute Illness - Fluid Accumulation : Moderate to Severe (02/11/25823) Acute Illness - Fluid Accumulation Location: Extremities (02/11/25823) Acute Illness - Hatchery Laborer Strength: Not Performed (02/11/25823) Acute Illness - Malnutrition Score: 7 (02/11/25823) Malnutrition Status: No malnutrition (02/11/25823) I agree with the dietitian's malnutrition assessment. Medical Nutrition Therapy: continue current nutrition therapy Hospital Prophylaxis: DVT: Lovenox Stress Ulcer: PPI Disposition: Shared decision making: All test results, treatment options and disposition options were discussed with the patient today Social determinants of health that may impact management: none Code status: Full Code Disposition: Discharge plan is home [facility] Advanced Care Planning documentation: [x] I have confirmed that the patient's Advance Care Plan is present, Code Status is documented, or surrogate decision maker is listed in the patient's medical record [If yes , STOP HERE] [] The patient's Advance Care Plan is NOT present because: [] I confirmed today that the patient does not wish or was not able to name a surrogate decision maker or provide and advance care plan. [] Hospice care is currently being provided or has been provided within the calendar year. [] I did NOT confirm today the presence of an Advance Care Plan or surrogate decision maker documented within the patient's medical record. [DOES NOT SATISFY [facility] PERFORMANCE] Jillian Johnson APRN - LEVY , LORENA-MAIL INSERTER-C 02/17/2025 8:16 AM FACE TO FACE: Patient qualified for home O2. Discussed with patient the medical necessity of home O2. Patient voiced understanding and agreement. LORENA Brown CNP, LORENA, MAIL INSERTER-C 02/17/2025, 8:16 AM This patient has Chronic Respiratory Failure secondary to Muscular Dystrophy, requiring noninvasive ventilation therapy in the home to maintain or optimize an acceptable PCO2 level. If the PCO2 level is not managed, this could cause harm or even . This could also reduce respiratory readmissions. BiPAP has proven to be ineffective in maintaining the patients PCO2 levels, now requiring noninvasive therapy. Cosigned by Arleth Milligan MD at 02/17/2025 6:35 PM EDT Associated attestation - Arleth Milligan MD - 02/17/2025 6:35 PM EDT Arleth Milligan M.D. Internal Medicine PA/MAIL INSERTER Attestation Note Patient: Evgeny Delgado Date of Admission: 02/10/2025 4:04 PM Date of Evaluation: 02/17/2025 I personally evaluated and examined the patient [id number] in conjunction with the PA/MAIL INSERTER and agree with the management and dispostition of the patient. Please see the PA/MAIL INSERTER's note for full details. My jeffries findings are: SUBJECTIVE: Evgeny Delgado is a 69 y.o. male who was seen today along with Jillian Plascencia CNP for follow up of Acute respiratory failure with hypoxia and hypercapnia (HCC). He is feeling better today. He denies and cough or SOB. He denies fever or chills and has been afebrile. We discussed home non invasive ventilation OBJECTIVE: Vitals: Temp: 98.2 F (36.8 C) BP: 109/63 Respirations: 30 (anxious) Pulse: 67 SpO2: 98 % on 1 Lpm nasal cannula Weight Wt Readings from Last 3 Encounters: 02/17/25 90.9 kg (200 lb 8 oz) 12/16/24 90.3 kg (199 lb) 09/17/24 90.3 kg (199 lb) Body mass index is 29.61 kg/m . 24HR INTAKE/OUTPUT: Intake/Output Summary (Last 24 hours) at 02/17/2025 1834 Last data filed at 02/17/2025 1757 Gross per 24 hour Intake 1880 ml Output 2024 ml Net -145 ml Exam: GEN: Awake, alert and oriented x 3. EYES: EOMI, pupils equal NECK: Supple. No lymphadenopathy. No carotid bruit CVS: regular rate and rhythm, 2/6 systolic murmur PULM: CTA, no wheezes, rales or rhonchi, no acute respiratory distress ABD: Bowels sounds normal. Abdomen is soft. No distention. no tenderness to palpation. EXT: no edema bilaterally . No calf tenderness. NEURO: Moves all extremities. Motor and sensory are grossly intact SKIN: No rashes. No skin lesions. DATA: Complete Blood Count: Recent Labs 02/15/25 0600 WBC 6.0 RBC 5.07 HGB 12.7* HCT 45.6 MCV 89.9 RDW 18.5* PLT 151 Recent Labs 02/15/25 0600 NEUTROABS 4.14 LYMPHOPCT 22* LYMPHSABS 1.32 MONOPCT 6 BASOPCT 0 IMMGRAN 1* CMP: Recent Labs 02/15/25 0600 NA 141 K 4.0 CL 96* CO2 36* BUN 16 CREATININE 0.5* GLUCOSE 122* CALCIUM 8.7 High Sensitivity Troponin: No results for input(s): TROPHS in the last 72 hours. Reference Range 02/11/25 11:59 02/12/25 07:21 02/13/25 10:10 pH, Arterial 7.35 - 7.45 7.343 (L) 7.335 (L) 7.359 pH, Art, Temp Adj 7.350 - 7.450 7.343 (L) 7.335 (L) 7.359 pCO2, Art, Temp Adj 35.0 - 45.0 64.9 (HH) 65.4 (HH) 71.6 (HH) pCO2, Arterial 35 - 45 mmHg 64.9 (HH) 65.4 (HH) 71.6 (HH) pO2, Art, Temp Adj 80.0 - 100.0 mmHg 73.1 (L) 80.8 63.4 (L) pO2, Arterial 80.0 - 100.0 mmHg 73.1 (L) 80.8 63.4 (L) HCO3, Arterial 22 - 26 mmol/L 34.5 (H) 34.1 (H) 39.5 (H) Positive Base Excess, Art 0.0 - 2.0 mmol/L 6.3 (H) 5.8 (H) 10.6 (H) O2 Sat, Arterial 95 - 98 % 93.4 (L) 94.9 (L) 90.5 (L) Microbiology / Cultures: Results Procedure Component Value Units Date/Time Respiratory Panel, Molecular, with COVID-19 (Restricted: peds pts or suitable admitted adults) [[id number]] Collected: 02/10/25 2650 Order Status: Completed Specimen: Nasopharyngeal Swab Updated: 02/11/25129 Specimen Description .NASOPHARYNGEAL SWAB Adenovirus PCR Not Detected Coronavirus 229E PCR Not Detected Coronavirus HKU1 PCR Not Detected Coronavirus NL63 PCR Not Detected Coronavirus OC43 PCR Not Detected SARS-CoV-2, PCR Not Detected Human Metapneumovirus PCR Not Detected Rhino/Enterovirus PCR Not Detected Influenza A by PCR Not Detected Influenza B by PCR Not Detected Parainfluenza 1 PCR Not Detected Parainfluenza 2 PCR Not Detected Parainfluenza 3 PCR Not Detected Parainfluenza 4 PCR Not Detected Resp Syncytial Virus PCR Not Detected Bordetella parapertussis by PCR Not Detected B Pertussis by PCR Not Detected Chlamydia pneumoniae By PCR Not Detected Mycoplasma pneumo by PCR Not Detected Comment: Performed by multiplexed nucleic acid assay. Imaging Data: CT CHEST PULMONARY EMBOLISM W CONTRAST Result Date: 02/10/2025 EXAMINATION: CTA OF THE CHEST 02/10/2025 5:37 pm TECHNIQUE: CTA of the chest was performed after the administration of intravenous contrast. Multiplanar reformatted images are provided for review. MIP images are provided for review. Automated exposure control, iterative reconstruction, and/or weight based adjustment of the mA/kV was utilized to reduce the radiation dose to as low as reasonably achievable. COMPARISON: None. HISTORY: ORDERING SYSTEM PROVIDED HISTORY: dyspnea, PE TECHNOLOGIST PROVIDED HISTORY: dyspnea, PE Decision Support Exception - unselect if not a suspected or confirmed emergency medical condition->Emergency Medical Condition (MA) FINDINGS: Pulmonary Arteries: Pulmonary arteries are adequately opacified for evaluation. No evidence of intraluminal filling defect to suggest pulmonary embolism. Main pulmonary artery is normal in caliber. Mediastinum: The heart size within normal limits. Coronary arterial calcifications. The thoracic aorta is normal caliber with mild atherosclerosis. The esophagus is unremarkable. No pathologically enlarged adenopathy. Lungs/pleura: Elevation of the right hemidiaphragm. Mild right basilar atelectasis versus scarring. No other focal consolidation, pleural effusion or pneumothorax. The central airways are patent. Upper Abdomen: High-density material within the gallbladder. Lobular liver contour. Small hiatal hernia. Soft Tissues/Bones: Age-indeterminate T6 compression deformity but likely chronic. No other acute bone or soft tissue abnormality. 1. No evidence of pulmonary embolism or acute pulmonary abnormality. 2. Age-indeterminate T6 compression deformity, but likely chronic. 3. Gallbladder stones versus sludge. 4. Lobular liver contour, raising suspicion for cirrhosis or chronic liver disease. XR CHEST PORTABLE Result Date: 02/10/2025 EXAMINATION: ONE XRAY VIEW OF THE CHEST 02/10/2025 4:29 pm COMPARISON: None. HISTORY: ORDERING SYSTEM PROVIDED HISTORY: dyspnea TECHNOLOGIST PROVIDED HISTORY: dyspnea FINDINGS: Lines and tubes: None The lungs are clear. Heart size is normal. No acute cardiopulmonary process. ASSESSMENT: Principal Problem: Acute respiratory failure with hypoxia and hypercapnia (HCC) Active Problems: Nonrheumatic aortic valve stenosis Muscular dystrophies (HCC) Type 2 diabetes mellitus, without long-term current use of insulin (HCC) Chronic diastolic heart failure (HCC) Resolved Problems: * No resolved hospital problems. * PLAN: I agree with the assessment, plan and medical decision making documentation as outlined by APC: Treatment plan: Pulm consult appreciated Recommends NIV at home due to continued CO2 retention from muscular dystrophy Continue Entresto, Toprol, Lasix Nutrition status: Well developed, well nourished with no malnutrition Fish Culturist consult appreciated Monitor daily weights Monitor daily I/O's Medication monitoring / High risk medications: none Disposition: Discharge plan is pending availability of NIV delivery SHARED APC VISIT, PHYSICIAN ATTESTATION: [id number] I personally performed a substantive part of the MDM during the patient's visit. I personally evaluated and examined the patient. I personally made or approved the documented management plan and acknowledge its risk of complications. Test interpretation: My independent EKG interpretation: Normal sinus rhythm with first degree AV block and RBBB My independent imaging interpretation: CXR shows no acute process Management and/or test interpretation discussed with LEVY Drummond MD , M.D. 02/17/2025 6:34 PM Vitals and assessment completed at this time. Patient resting in bed, A&O x4. Lungs clear/diminished, heart sounds normal. BLE edema noted. No c/o pain. No needs at this time. Call light and bedside table in reach. Bed alarm on. Will continue to monitor Pt resting comfortably in bed with eyes closed. Respirations even and unlabored, no distress noted. Care ongoing. Vitals and assessment completed at this time, see flowsheet for more details. Pt resting comfortably in chair with in room. Pt A&Ox4, on 1LNC. Pt denies any SOB at this time. Pt complains of sore throat, see MAR. All needs met at this time, call light within reach. Care ongoing. RESPIRATORY ASSESSMENT PROTOCOL Patient Name: Evgeny Delgado Room#: 0328/0328-01 : 1955 Admitting diagnosis: Acute on chronic respiratory failure with hypoxia and hypercapnia (HCC) [J96.21, J96.22] Medical History: Past Medical History: Diagnosis Date Aortic stenosis CHF (congestive heart failure) ([facility]) Diabetes mellitus (HCC) FSHD (facioscapulohumeral muscular dystrophy) (HCC) HFrEF (heart failure with reduced ejection fraction) ([facility]) HLD (hyperlipidemia) HTN (hypertension) Nonischemic cardiomyopathy ([facility]) PATIENT ASSESSMENT LABORATORY DATA Hematology: Lab Results Component Value Date/Time WBC 6.0 02/15/2025 06:00 AM RBC 5.07 02/15/2025 06:00 AM HGB 12.7 02/15/2025 06:00 AM HCT 45.6 02/15/2025 06:00 AM PLT 151 02/15/2025 06:00 AM Chemistry: Lab Results Component Value Date/Time PHART 7.304 02/16/2025 06:15 AM XVA5HFA 81.3 02/16/2025 06:15 AM PO2ART 64.9 02/16/2025 06:15 AM K8FNKERK 89.6 02/16/2025 06:15 AM RFH5IEQ 39.5 02/16/2025 06:15 AM PBEA 9.4 02/16/2025 06:15 AM VITALS Pulse: 72 Respirations: 20 BP: 103/66 SpO2: 90 % O2 Device: Nasal cannula Temp: 97.8 F (36.6 C) SKIN COLOR [x] Normal [] Pale [] Dusky [] Cyanotic RESPIRATORY PATTERN [x] Normal [] Dyspnea [] Romel-Byrd [] Kussmaul [] Biots AMBULATORY [x] Yes [] No [x] With Assistance Patient Acuity 0 1 2 3 4 Score Level of Consciousness (LOC) [x] Alert & Oriented or Pt normal LOC [] Confused;follows directions [] Confused & uncooper-ative [] Obtunded [] Comatose 0 Respiratory Rate (RR) [x] Reg. rate & pattern. 12 - 20 bpm [] Increased RR. Greater than 20 bpm [] SOB w/ exertion or RR greater than 24 bpm [] Access- ory muscle use at rest. Abn. resp. [] SOB at rest. 0 Bilateral Breath Sounds (BBS) [] Clear [] Diminish-ed bases [x] Diminish-ed t/o, or rales [] Sporadic, scattered wheezes or rhonchi [] Persistentwheezes and, or absent BBS 2 Cough [] Strong, effective, & non-prod. [x] Effective & prod. Less than 25 ml (2 TBSP) over past 24 hrs [] Ineffective & non-prod to less than 25 ML over past 24 hrs [] Ineffective and, or greater than 25 ml sputum prod. past 24 hrs. [] Nonspon- taneous; Requires suctioning 1 Pulmonary History (PULM HX) [] No smoking and no chronic pulmonary history [] Former smoker. Quit over 12 mos. ago [] Current smoker or quit w/ in 12 mos [] Pulm. History and, or 20 pk/yr smoking hx [x] Admitted w/ acute pulm. dx and, or has been admitted w/ pulm. dx 2 or more times over past 12 mos 4 Surgical History this Admit (SURG HX) [x] No surgery [] General surgery [] Lower abdominal [] Thoracic or upper abdominal [] T [facility] 02-28-2025 Hospital Discharge instructions Beti Atkinson RN - 02/28/2025 5:32 PM EDT Activity as tolerated Beti Atkinson RN - 02/28/2025 5:32 PM EDT Good nutrition is important when healing from an illness, injury, or surgery. Follow any nutrition recommendations given to you during your hospital stay. If you were given an oral nutrition supplement while in the hospital, continue to take this supplement at home. You can take it with meals, in-between meals, and/or before bedtime. These supplements can be purchased at most local grocery stores, pharmacies, and chain [employer]-stores. If you have any questions about your diet or nutrition, call the hospital and ask for the dietitian. Regular diet The following attachments cannot be sent through Care Everywhere.Respiratory Failure: General Info (Citizen Of [place])documented in this encounter [facility] 02-28-2025 Hospital course Narrative Discharge Summary Evgeny Delgado : 1955 Admit date: 02/10/2025 Discharge date: 02/28/2025 Admitting Physician: Arleth Milligan MD Discharge Diagnoses: Principal Problem: Acute respiratory failure with hypoxia and hypercapnia (HCC) Active Problems: Nonrheumatic aortic valve stenosis Muscular dystrophies (HCC) Type 2 diabetes mellitus, without long-term current use of insulin (HCC) Chronic diastolic heart failure (HCC) Resolved Problems: * No resolved hospital problems. * Hospital Course: Evgeny Delgado is a 70 y.o. male admitted with acute respiratory failure with hypoxia and hypercapnia. He presented from home with complaints of shortness of breath. Patient stated he was checking his pulse oximetry at home and the lowest being in the 70s. Patient has extensive history including muscular dystrophy, CHF, type 2 diabetes, aortic stenosis and partially paralyzed diaphragm. Patient had went on a trip to [place] and not felt well patient found that he was hypoxic. He states that his son has oxygen at home so he had been using it. He reported it did help some but not a lot. He denied chest pain or swelling. He denied palpitations. He denied abdominal pain including nausea vomiting diarrhea. Patient stated that he does follow with pulmonology in [place]. He reported a few years back he did have a BiPAP at home however after some time his symptoms and improved and the machine was returned. Patient was evaluated and admitted and found to be hypoxic with hypercapnia. He was placed on BiPAP and gases were trended. CT of his chest was negative for pulmonary embolism he had no leukocytosis. Initial troponin was 141 and 131 which was chronic. BNP was 147. During patient's hospitalization cardiology and pulmonology were consulted labs monitored electrolytes replaced. ABGs were trended. Respiratory panel also was negative during his stay and nocturnal pulse oximetry was completed as well during his hospitalization. Patient was recommended to be discharged home with trilogy or BiPAP however upon initial discharge patient was denied by his insurance company. Patient remained in the hospital now for a total of 18 days awaiting on insurance due to appeals and multiple attempts to obtain a BiPAP machine to regulate his blood gases due to his muscular dystrophy and his partially paralyzed diaphragm. Patient overall is doing better. Patient did complete a Z-Corbin as well during his hospitalization. He was continued on his home medications and will continue on discharge. Patient has been approved as of today with his company for BiPAP at home with settings of 18/8 with 28% FiO2 or 2 L of oxygen. He did qualify for home oxygen as well at 2 L per nasal cannula continuously. Plan will be to discharge him today. He will follow-up with his it architect as well as primary care. Consultants: Dr. Cheek, pulmonology; Dr. Russell pulmonology; Dr Sparrow, Cardiology Procedures: none Complications: Insurance Denial for Bipap at home Discharge Condition: fair Exam: GEN: Awake and following commands: [] No [x] Yes MENTAL STATUS: alert and oriented x3. DISTRESS: Acute respiratory distress: [x] No [] Yes EYES: EOMI, pupils equal NECK: Supple. No lymphadenopathy. No carotid bruit CVS: regular rate and rhythm, 2/6 systolic murmur PULM: diminished but clear, no acute respiratory distress ABD: Bowels sounds normal. Abdomen is soft. No distention. no tenderness to palpation. EXT: Slight edema bilaterally but right > left . No calf tenderness. NEURO: Moves all extremities. Motor and sensory are grossly intact SKIN: No rashes. No skin lesions. Significant Diagnostic Studies: Lab Results Component Value Date WBC 7.0 2025 HGB 12.1 (L) 2025 PLT 154 2025 Lab Results Component Value Date BUN 15 2025 CREATININE 0.5 (L) 2025 NA 141 2025 K 4.1 2025 CALCIUM 8.6 2025 CL 100 2025 CO2 36 (H) 2025 LABGLOM >90 2025 Lab Results Component Value Date WBCUA None 04/18/2023 RBCUA 0 TO 2 04/18/2023 LEUKOCYTESUR NEGATIVE 04/18/2023 GLUCOSEU NEGATIVE 04/18/2023 KETUA NEGATIVE 04/18/2023 PROTEINU NEGATIVE 04/18/2023 HGBUR NEGATIVE 04/18/2023 CASTUA 04/18/2023 0 TO 2 HYALINE Reference range defined for non-centrifuged specimen. CT CHEST PULMONARY EMBOLISM W CONTRAST Result Date: 02/13/2025 EXAMINATION: CTA OF THE CHEST 02/10/2025 5:37 pm TECHNIQUE: CTA of the chest was performed after the administration of intravenous contrast. Multiplanar reformatted images are provided for review. MIP images are provided for review. Automated exposure control, iterative reconstruction, and/or weight based adjustment of the mA/kV was utilized to reduce the radiation dose to as low as reasonably achievable. COMPARISON: None. HISTORY: ORDERING SYSTEM PROVIDED HISTORY: dyspnea, PE TECHNOLOGIST PROVIDED HISTORY: dyspnea, PE Decision Support Exception - unselect if not a suspected or confirmed emergency medical condition->Emergency Medical Condition (MA) FINDINGS: Pulmonary Arteries: Pulmonary arteries are adequately opacified for evaluation. No evidence of intraluminal filling defect to suggest pulmonary embolism. Main pulmonary artery is normal in caliber. Mediastinum: The heart size within normal limits. Coronary arterial calcifications. The thoracic aorta is normal caliber with mild atherosclerosis. The esophagus is unremarkable. No pathologically enlarged adenopathy. Lungs/pleura: Elevation of the right hemidiaphragm. Mild right basilar atelectasis versus scarring. No other focal consolidation, pleural effusion or pneumothorax. The central airways are patent. Upper Abdomen: High-density material within the gallbladder. Lobular liver contour. Small hiatal hernia. Soft Tissues/Bones: Age-indeterminate T6 compression deformity but likely chronic. No other acute bone or soft tissue abnormality. 1. No evidence of pulmonary embolism or acute pulmonary abnormality. 2. Age-indeterminate T6 compression deformity, but likely chronic. 3. Gallbladder stones versus sludge. 4. Lobular liver contour, raising suspicion for cirrhosis or chronic liver disease. XR CHEST PORTABLE Result Date: 02/10/2025 EXAMINATION: ONE XRAY VIEW OF THE CHEST 02/10/2025 4:29 pm COMPARISON: None. HISTORY: ORDERING SYSTEM PROVIDED HISTORY: dyspnea TECHNOLOGIST PROVIDED HISTORY: dyspnea FINDINGS: Lines and tubes: None The lungs are clear. Heart size is normal. No acute cardiopulmonary process. Assessment and Plan: Patient Active Problem List Diagnosis Date Noted Dyspnea 04/10/2023 Nonrheumatic aortic valve stenosis 04/10/2023 Acute on chronic respiratory failure with hypoxia and hypercapnia ([facility]) 02/10/2025 Chronic diastolic heart failure ([facility]) 05/16/2023 Chronic respiratory failure ([facility]) 04/26/2023 Type 2 diabetes mellitus, without long-term current use of insulin ([facility]) 04/20/2023 Dysphagia 04/19/2023 Acute respiratory failure with hypoxia and hypercapnia ([facility]) 04/11/2023 HFrEF (heart failure with reduced ejection fraction) ([facility]) 04/11/2023 Closed wedge compression fracture of T7 vertebra ([facility]) 04/11/2023 Muscular dystrophies ([facility]) 04/11/2023 NSTEMI (non-ST elevated myocardial infarction) ([facility]) 04/05/2023 Discharge Medications: Medication List START taking these medications albuterol (2.5 MG/3ML) 0.083% nebulizer solution Commonly known as: PROVENTIL Take 3 mLs by nebulization every 4 hours as needed for Wheezing cetirizine 10 MG tablet Commonly known as: ZYRTEC Take 1 tablet by mouth daily Start taking on: March 01, 2025 ipratropium 0.5 mg-albuterol 2.5 mg 0.5-2.5 (3) MG/3ML Soln nebulizer solution Commonly known as: DUONEB Inhale 3 mLs into the lungs 3 times daily traZODone 50 MG tablet Commonly known as: DESYREL Take 1 tablet by mouth nightly as needed for Sleep CHANGE how you take these medications citalopram 20 MG tablet Commonly known as: CELEXA Take 1 tablet by mouth daily What changed: how much to take how to take this when to take this CONTINUE taking these medications allopurinol 300 MG tablet Commonly known as: ZYLOPRIM ALPRAZolam 0.5 MG tablet Commonly known as: XANAX Aspirin 81 MG Caps atorvastatin 40 MG tablet Commonly known as: LIPITOR dapagliflozin 10 MG tablet Commonly known as: Farxiga Take 1 tablet by mouth every morning dextromethorphan-guaiFENesin 30-600 MG per extended release tablet Commonly known as: MUCINEX DM furosemide 40 MG tablet Commonly known as: LASIX Take 0.5 tablets by mouth daily glipiZIDE 2.5 MG extended release tablet Commonly known as: GLUCOTROL XL ipratropium 0.03 % nasal spray Commonly known as: ATROVENT metoprolol succinate 25 MG extended release tablet Commonly known as: TOPROL XL Take 1 tablet by mouth daily midodrine 10 MG tablet Commonly known as: PROAMATINE Take 1 tablet by mouth 3 times daily (with meals) MULTIVITAMIN ADULT PO pantoprazole 40 MG tablet Commonly known as: PROTONIX Take 1 tablet by mouth every morning (before breakfast) sacubitril-valsartan 24-26 MG per tablet Commonly known as: ENTRESTO Take 0.5 tablets by mouth 2 times daily tamsulosin 0.4 MG capsule Commonly known as: FLOMAX Take 2 capsules by mouth daily ASK your doctor about these medications hydrocortisone 1 % cream Apply topically 2 times daily. Ask about: Should I take this medication? Where to Get Your Medications These medications were sent to [id number] - [place], [place] - [address] - P [phone] - F [phone] [place] [address] albuterol (2.5 MG/3ML) 0.083% nebulizer solution cetirizine 10 MG tablet citalopram 20 MG tablet hydrocortisone 1 % cream ipratropium 0.5 mg-albuterol 2.5 mg 0.5-2.5 (3) MG/3ML Soln nebulizer solution traZODone 50 MG tablet Patient Instructions: Activity: activity as tolerated Diet: regular diet Wound Care: none needed Other: na Disposition: Discharge to Home Follow up: Patient will be followed by Marco Bosch MD in 1-2 weeks CORE MEASURES on Discharge (if applicable) NORA/ARB in CHF: NA Statin in IN: NA ASA in IN: NA Statin in CVA: NA Antiplatelet in CVA: NA Total time spent on discharge services: 45 minutes Including the following activities: Evaluation and Management of patient Discussion with patient and/or surrogate about current care plan Coordination with Case Management and/or General Merchandise Manager Coordination of care with Consultants (if applicable) Coordination of care with Receiving Facility Physician (if applicable) Completion of DME forms (if applicable) Preparation of Discharge Summary Preparation of Medication Reconciliation Preparation of Discharge Prescriptions Signed: LORENA Brown CNP, LORENA, MAIL INSERTER-C 02/28/2025, 1:44 PM Please note that this chart was generated using voice recognition [employer] dictation software. Although every effort was made to ensure the accuracy of this automated binder selector, some errors in binder selector may have occurred. Cosigned by Arleth Milligan MD at 02/28/2025 2:26 PM EDT Associated attestation - Arleth Milligan MD - 02/28/2025 2:26 PM EDT Arleth Milligan M.D. Internal Medicine PA/MAIL INSERTER Discharge Summary Attestation Patient: Evgeny Delgado I personally evaluated and examined the patient [id number] in conjunction with the PA/MAIL INSERTER and agree with the management and dispostition of the patient. Please see the PA/MAIL INSERTER's note for full details. My jeffries findings are: Admission date: 02/10/2025 Discharge date: 02/28/2025 Discharge Diagnosis: Principal Problem: Acute respiratory failure with hypoxia and hypercapnia Active Problems: Muscular dystrophy affecting respiratory musculature Chronic diastolic heart failure Nonrheumatic aortic valve stenosis Type 2 diabetes mellitus, without long-term current use of insulin Exam: GEN: Awake, alert and oriented x 3. EYES: EOMI, pupils equal NECK: Supple. No lymphadenopathy. No carotid bruit CVS: regular rate and rhythm, 2/6 systolic murmur PULM: diminished in both bases but clear with no wheezes, rales or rhonchi, no acute respiratory distress ABD: Bowels sounds normal. Abdomen is soft. No distention. no tenderness to palpation. EXT: Trace edema bilaterally (slightly worse on right = chronic). No calf tenderness. NEURO: Moves all extremities. Motor and sensory are grossly intact SKIN: No rashes. No skin lesions. Disposition: Discharge to Home with BiPAP at 18/8 with 20% FiO Follow Up: Follow up with Marco Bosch MD in 1-2 weeks Total time spent on discharge services: 45 minutes Including the following activities: Evaluation and Management of patient Discussion with patient and/or surrogate about current care plan Coordination with Case Management and/or General Merchandise Manager Coordination of care with Consultants (if applicable) Coordination of care with Receiving Facility Physician (if applicable) Completion of DME forms (if applicable) Preparation of Discharge Summary Preparation of Medication Reconciliation Preparation of Discharge Prescriptions Arleth Milligan MD , M.D. 02/28/2025 2:26 PM documented in this encounter [facility] 12-25-2024 Note - From: Day Yi RN ([facility] To: Marco Bosch DO; Sent: 12/25/2024 14:41:17 EDT Subject: Med Management Caller Name: EVGENY DELGADO FERNANDO; Caller Number: Lizet , Duy Caller is: ( X ) Patient ( ) Mother ( ) Father ( ) Pharmacy ( ) Other: Pharmacy to route Rx to: [facility] Patient's Provider: Reviewed Allergies: ( ) Yes ( ) No Pharmacy: [facility] Comments: NO CSA ON FILE 1. Name of Medication: XANAX 0.5MG Dosage: [...] 3 Substitutions Allowed Route To Pharmacy - [id number] Signed by Marco Bosch DO 12/25/2024 14:47:00 EDT From: Marco Bosch DO To: [facility] ([facility]); Sent: 12/25/2024 14:48:23 EDT Subject: RE: Med Management Caller Name: EVGENY DELGADO FERNANDO; Caller Number: Lizet , Duy i did refill I just saw him three weeks ago, i don't want to bring him back again just to sign a CSA we need to figure out a way to flag this so when he returns in three months we can capture this. reminder placed 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 Subject: Medication Management Due: December 06, 2024 12:11:25 AM MACHINE OPERATOR HOP WORKER On Hold Pending Signature Drug: pantoprazole (pantoprazole [...] Pharmacy: -------- From: Marco Bosch DO To: [facility] Sent: 12/05/2024 07:31:56 EST Subject: FW: Medication Management Submitted: Complete:pantoprazole (pantoprazole 40 mg oral delayed release tablet) Signed by Marco Bosch DO 12/05/2024 07:31:00 EST Submitted: Complete:tamsulosin (tamsulosin 0.4 mg oral capsule) Signed by Marco Bosch DO 12/05/2024 07:31:00 EST Approved with modifications: pantoprazole (Pantoprazole Sodium Oral Tablet Delayed Release 40 MG) TAKE 1 TABLET EVERY DAY Qty: 90 tab(s) Days Supply: 90 Refills: 3 Substitutions Allowed Route To Pharmacy - [facility] Approved with modifications: tamsulosin (Tamsulosin HCl Oral Capsule 0.4 MG) TAKE 2 CAPSULES EVERY DAY Qty: 180 cap(s) Days Supply: 90 Refills: 3 Substitutions Allowed Route To Pharmacy - [facility] 11-04-2024 Note - From: Day Yi RN ([facility] ([facility])) To: Marco Bosch DO; Sent: 11/04/2024 13:43:38 EST Subject: Med Management Caller Name: EVGENY DELGADO; Caller Number: , Caller is: ( ) Patient ( ) Mother ( ) Father ( X ) Pharmacy ( ) Other: Pharmacy to route Rx to: [facility] Patient's Provider: Reviewed Allergies: ( ) Yes ( ) No Pharmacy: [facility] Comments: 90 DAY SUPPLY 1. Name of Medication: ALLOPURINOL 300MG DAILY 2. Name of Medication: CITALOPRAM 20MG DAILY 3. Name of Medication: FARXIGA 10MG DAILY 4. Name of Medication: MIDODRINE 10MG TID Submitted: Order:allopurinol (allopurinol 300 mg oral tablet) 1 tab(s) Oral Daily Qty: 90 tab(s) Days Supply: 0 Refills: 3 Substitutions Allowed Route To Pharmacy - [facility] Signed by Marco Bosch DO 11/04/2024 13:45:00 EST Submitted: Order:citalopram (citalopram 20 mg oral tablet) 1 tab(s) Oral Daily Qty: 90 tab(s) Refills: 3 Substitutions Allowed Route To Pharmacy - [facility] Signed by Marco Bosch DO 11/04/2024 13:45:00 EST Submitted: Order:midodrine (midodrine 10 mg oral tablet) 1 tab(s) Oral TID Qty: 270 tab(s) Days Supply: 0 Refills: 3 Substitutions Allowed Route To Pharmacy - [facility] Signed by Marco Bosch DO 11/04/2024 13:45:00 EST Submitted: Order:dapagliflozin (Farxiga 10 mg oral tablet) 1 tab(s) Oral Daily Qty: 90 tab(s) Days Supply: 0 Refills: 3 Substitutions Allowed Route To Pharmacy - [facility] Signed by Marco Bosch DO 11/04/2024 13:45:[address] [facility] 10-21-2024 Note - From: Day Yi RN ([facility] ([facility] To: Marco Bosch DO; Sent: 10/21/2024 13:56:17 EST Subject: Med Management Caller Name: EVGENY DELGADO; Caller Number: , Caller is: ( X ) Patient ( ) Mother ( ) Father ( ) Pharmacy ( ) Other: Pharmacy to route Rx to: [facility] Patient's Provider: Reviewed Allergies: ( ) Yes ( ) No Pharmacy: [facility] Comments: 1. Name of Medication: METOPROLOL SUCCINATE 25MG DAILY Dosage: Dispense: ( ) New ( [...] until: Call back phone # later: Submitted: Order:metoprolol (Toprol-XL 25 mg oral tablet, extended release) 1 tab(s) Oral Daily Qty: 90 tab(s) Refills: 3 Substitutions Allowed Route To Pharmacy - [facility] Signed by Marco Bosch DO 10/21/2024 14:15:[address] 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 WORKER On Hold Pending Signature Drug: furosemide (furosemide 20 mg oral tablet), TAKE 1 TABLET EVERY DAY Quantity: 90 tab(s) Days Supply: 0 Refills: 3 Substitutions Allowed Notes from Pharmacy: Dispensed Drug: furosemide (furosemide 20 mg oral tablet), TAKE 1 TABLET EVERY DAY Quantity: 90 tab(s) Days Supply: 90 Refills: 3 Substitutions Allowed Notes from Pharmacy: -------- From: Shannon Brambila APRN, CNP To: [facility] Sent: 09/23/2024 10:46:53 EST Subject: FW: Medication Management Submitted: Complete:furosemide (furosemide 20 mg oral tablet) Signed by Shannon Brambila APRN, CNP 09/23/2024 10:46:00 EST Approved with modifications: furosemide (Furosemide Oral Tablet 20 MG) TAKE 1 TABLET EVERY DAY Qty: 90 tab(s) Days Supply: 90 Refills: 3 Substitutions Allowed Route To Pharmacy - [facility] Signed by Shannon Brambila APRN, CNP [facility] 08-15-2024 Note - From: Day Yi RN ([facility] ([facility]) To: Marco Bosch DO; Sent: 08/15/2024 08:09:15 EDT Subject: FW: Medication Management Due Date/Time: 08/16/2024 08:05:00 EDT Caller Name: EVGENY DELGADO; Caller Number: , -------- From: [id number] To: Marco Bosch DO Sent: August 15, 2024 7:05:20 AM CDT Subject: Medication Management Due: August 16, 2024 12:08:13 AM CDT On Hold Pending Signature Drug: ALPRAZolam (ALPRAZolam 0.5 mg oral tablet), 1 tab(s) Oral HS,Instr:30 day supply Quantity: 30 tab(s) Days Supply: 0 Refills: 2 Substitutions Allowed Notes from Pharmacy: Dispensed Drug: ALPRAZolam (ALPRAZolam 0.5 mg oral tablet), TAKE 1 TABLET BY MOUTH AT BEDTIME Quantity: 30 tab(s) Days Supply: 30 Refills: 3 Substitutions Allowed Notes from Pharmacy: This prescription was filled on 07/26/2024. Any refills authorized will be placed on file. -------- Submitted: Order:ALPRAZolam (ALPRAZolam 0.5 mg oral tablet) 1 tab(s) PO HS 30 day supply Qty: 30 tab(s) Refills: 3 Substitutions Allowed Route To Pharmacy - [id number] Signed by Marco Bosch DO 08/15/2024 08:17:[address] [facility] 07-24-2024 Note Entered by Day Yi RN on July 24, 2024 07:40:33 EDT From: Day Yi RN To: [facility] Sent: 07/24/2024 07:40:33 EDT Subject: Medication Management Submitted: Complete:dapagliflozin (Farxiga 10 mg oral tablet) Signed by Day Yi RN 07/24/2024 07:40:00 EDT Approved with modifications: dapagliflozin (FARXIGA TABS 10MG) TAKE 1 TABLET DAILY Qty: 90 tab(s) Days Supply: 0 Refills: 3 Substitutions Allowed Route To Pharmacy - [facility] Signed by Day Yi RN -------- From: [facility] To: Marco Bosch DO Sent: July 24, 2024 12:30:17 AM CDT Subject: Medication Management Due: July 25, 2024 12:30:17 AM CDT On Hold Pending Signature Drug: dapagliflozin (Farxiga 10 mg oral tablet), TAKE 1 TABLET DAILY Quantity: 90 tab(s) Days Supply: 0 Refills: 3 Substitutions Allowed Notes from Pharmacy: Dispensed Drug: dapagliflozin (Farxiga 10 mg oral tablet), TAKE 1 TABLET DAILY Quantity: 90 tab(s) Days Supply: 0 Refills: 3 Substitutions Allowed Notes from Pharmacy: -------- [facility] 07-08-2024 Note - From: Day Yi RN ([facility] ([facility])) To: Marco Bosch DO; Sent: 07/08/2024 07:40:12 EDT Subject: FW: Medication Management Due Date/Time: 07/09/2024 02:08:00 EDT Caller Name: EVGENY DELGADON; Caller Number: Lizet , Duy -------- From: [facility] To: Marco Bosch DO Sent: [...] Pharmacy: -------- From: Marco Bosch DO To: [facility] Sent: 07/08/2024 07:53:52 EDT Subject: FW: Medication Management Submitted: Complete:citalopram (CeleXA 20 mg oral tablet) Signed by Marco Bosch DO 07/08/2024 07:53:00 EDT Approved with modifications: citalopram (CITALOPRAM HYDROBROMIDE TABS 20MG) TAKE 1 TABLET DAILY Qty: 90 tab(s) Days Supply: 0 Refills: 3 Substitutions Allowed Route To Pharmacy - [facility] 06-13-2024 Note - From: Day Yi RN ([facility] ([facility])) To: Marco Bosch DO; Sent: 06/13/2024 13:13:32 EDT Subject: Med Management Caller Name: EVGENY DELGADO; Caller Number: H , M Caller is: ( ) Patient ( ) Mother ( ) Father ( X ) Pharmacy ( ) Other: Pharmacy to route Rx to: [facility] Patient's Provider: Reviewed Allergies: ( ) Yes ( ) No Pharmacy: [facility] Comments: 1. Name of Medication: ATORVASTATIN 40MG [...] tab(s) Refills: 3 Substitutions Allowed Route To [facility] Mail Delivery Signed by Marco Bosch DO 06/13/2024 13:30:[address] [facility] 06-03-2024 Note - From: Day Yi RN ([facility] ([facility])) To: Marco Bosch DO; Sent: 06/03/2024 07:33:36 EDT Subject: FW: Medication Management Due Date/Time: 06/04/2024 02:14:00 EDT Caller Name: EVGENY DELGADO; Caller Number: , -------- From: [facility] To: Marco Bosch DO Sent: [...] Pharmacy: -------- From: Marco Bosch DO To: [facility] Sent: 06/03/2024 07:35:36 EDT Subject: FW: Medication Management Submitted: Complete:midodrine (midodrine 10 mg oral tablet) Signed by Marco Bosch DO 06/03/2024 07:35:00 EDT Approved with modifications: midodrine (MIDODRINE HCL TABS 10MG) TAKE 1 TABLET THREE TIMES A DAY Qty: 270 tab(s) Days Supply: 0 Refills: 3 Substitutions Allowed Route To Pharmacy - [facility] 04-23-2024 Note - From: Day iY RN ([facility] ([facility])) To: Marco Bosch DO; Sent: 04/23/2024 09:57:04 EDT Subject: Med Management Caller Name: EVGENY DELGADO; Caller Number: Lizet , M Caller is: ( X ) [...] 3 Substitutions Allowed Route To Pharmacy - [id number] Signed by Marco Bosch DO 04/23/2024 10:05:[address] [facility] 04-15-2024 Note - From: Day Yi RN ([facility] ([facility])) To: Marco Bosch DO; Sent: 04/15/2024 07:17:01 EDT Subject: FW: Medication Management Due Date/Time: 04/16/2024 01:27:00 EDT Caller Name: EVGENY DELGADO; Caller Number: Lizet , M -------- From: [facility] To: Marco Bosch DO Sent: [...] Pharmacy: -------- From: Marco Bosch DO To: [facility] Sent: 04/15/2024 07:28:35 EDT Subject: FW: Medication Management Submitted: Complete:allopurinol (allopurinol 300 mg oral tablet) Signed by Marco Bosch DO 04/15/2024 07:28:00 EDT Approved with modifications: allopurinol (ALLOPURINOL TABS 300MG) TAKE 1 TABLET DAILY Qty: 90 tab(s) Days Supply: 0 Refills: 3 Substitutions Allowed Route To Pharmacy - [facility] 04-04-2024 Note - From: Silvia Khan MA ([facility] ([facility])) To: Marco Bosch DO; Sent: 04/04/2024 12:55:17 EDT Subject: FW: Medication Management Due Date/Time: 04/05/2024 12:03:00 EDT Caller Name: EVGENY DELGADO; Caller Number: , -------- From: [id number] To: Marco Bosch DO Sent: April [...] Pharmacy: -------- From: Marco Bosch DO To: [id number] Sent: 04/04/2024 12:56:44 EDT Subject: FW: Medication Management Submitted: Complete:sacubitril-valsartan (Entresto 24 mg-26 mg oral tablet) Signed by Marco Bosch DO 04/04/2024 12:56:00 EDT Approved with modifications: sacubitril-valsartan (Entresto 24 mg-26 mg tablet) TAKE 1/2 (ONE-HALF) OF A TABLET BY MOUTH TWICE DAILY Qty: 90 tab(s) Days Supply: 90 Refills: 3 Substitutions Allowed Route To Pharmacy - [id number] 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 NYHA class II-III. He has no [...] EC tablet, Take (more content not included)... 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 drugs [facility] current use of therapeutic drug Muscular dystrophy ([facility]/HCC) Personal history of nicotine dependence Physical deconditioning Prostate cancer ([facility]/HCC) Pure hypercholesterolemia, unspecified Shortness of breath Transient cerebral ischemic attack, unspecified Past Medical History: Diagnosis Date Cancer ([facility]/HCC) CHF (congestive heart failure) ([facility]/HCC) Coronary artery disease Diabetes mellitus ([facility]/HCC) Heart valve disease Hyperlipidemia Hypertension Nonischemic cardiomyopathy ([facility]/HCC) Family History Problem Relation Name Age of [...] Behavior: Behavior normal (more content not included)... [facility] 12-21-2022 Note Patient here for 3 m [...] All other systems reviewed and are negative. [facility] 09-01-2022 Note Subjective Evgeny Delgado is a [...] -We discussed cardiac (more content not included)... [facility] 09-01-2022 Note Patient here for fol low up EP study. Review of Systems Musculoskeletal: Positive for back pain and muscle weakness. All other systems reviewed and are negative. [facility] 08-08-2022 Note COMPREHENSIVE EP VEL DY PROCEDURE NOTE DATE OF PROCEDURE: 08/08/2022 PERFORMING PHYSICIAN: Dr. Mohan Cam ANESTHESIOLOGIST ASSISTANT: None INDICATIONS FOR PROCEDURE: 1. History of [...] type 2, hypertension was recently admitted to [facility] for heart failure symptoms. He was [...] as needed. Mohan Cam MD Cardiac Electrophysiology [facility] 08-08-2022 Note Patient: Evgeny bob Procedure Information Date/Time: 08/08/22 1330 Procedure: Electrophysiology procedure - non sustained VT Location: [facility] STENOTYPIST 1 / [facility] (Cath) Providers: Mohan Cam MD Clinical information reviewed: Physical Exam Airway Mallampati: II TM distance: >3 FB Neck ROM: full Cardiovascular Dental Pulmonary Abdominal Anesthesia Plan ASA 2 CSE Anesthetic plan and risks discussed with patient. Use of blood products discussed with patient who. Additional Equipment Requests [facility] 08-08-2022 Note [place] Cardiology Consul t Note Reason for Consultation: NSVT HPI: Evgeny Delgado is a 67 y.o. year old with past medical history of Facioscapulohumeral muscular dystrophy, nonischemic cardiomyopathy on a recent echo, bicuspid aortic valve, diabetes mellitus type 2, hypertension was recently admitted to [facility] for heart failure symptoms. He was [...] Labs: @LABRESULTS@ EKG: (more content not included)... [facility] 07-05-2022 Note [place] Cardiology Consul t Note Reason for Consultation: NSVT HPI: Evgeny Delgado is a 67 y.o. year old with past medical history of Facioscapulohumeral muscular dystrophy, nonischemic cardiomyopathy on a recent echo, bicuspid aortic valve, diabetes mellitus type 2, hypertension was recently admitted to [facility] for heart failure symptoms. He was [...] heard Diastolic Mu (more content not included)... [facility] 05-26-2022 Note MR#: [id number] I [facility] Pt. Name: Evgeny Delgado Admitted: 05/21/2022 Discharged: [...] a 67-year-old male. He presented initially to [facility] with complaints of increased lower extremity swelling [...] fraction as per the echocardiogram done at [facility] showing an EF of 40 to 45%. [...] Gamble MD Date Trans: 05/26/2022 07:35 P/tonio [id number] cc: Chirag Ragsdale [address] [facility] [address] George Nieto M.D. [address] [place] [address], [facility] [id number] [facility] 02-09-2022 Note HNO ID: [id number] Author: Ebonie Keyes APRN.BIOMETRICS SPECIALIST Service: ? Author Type: Nurse Practitioner Type: Progress Notes Filed: 02/09/2022 2:12 PM Note Text: Telemedicine Visit - Distance Health Virtual Visit Note Patient seen on [employer] platform. Location of patient: [place] History of Present Illness Evgeny Delgado is [...] help in providing you the best care. [facility] 02-09-2022 Instructions Ebonie Keyes APRN.CNP - 02/09/2022 2:11 PM EDT Images from the original note were not included. Adult Sinusitis Patient Education What is Sinusitis? Sinusitis [zlwd-jsx-rqta-tis] is inflammation of the sinuses or swelling [...] help. You may be instructed to take swtl-wyr-mmtknpr medications for symptoms. including fever reducers acetaminophen or ibuprofen, nasal saline spray, cough and cold preparations and decongestants as prescribed by the physician, nurse practitioner or physician operations administrative assistant. 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 8. [...] per day. The below information is from [employer]: Antibiotics Will rarely help an upper respiratory infections. Antibiotics lead to more resistant infections that are harder to treat. There is little to no benefit to taking antibiotics for most acute upper respiratory tract infections. documented in this encounter [facility] 02-09-2022 History of Present illness Narrative Telemedicine Visit - Distance Health Virtual Visit Note Patient seen on [employer] platform. Location of patient: [place] History of Present Illness Evgeny Delgado is [...] the best care. documented in this encounter [facility] 12-20-2021 Note HNO ID: [id number] Author: Jeanette Abdul APRN.CNP Service: ? Author Type: Nurse Practitioner Type: Progress Notes Filed: 12/20/2021 7:01 PM Note Text: Telemedicine Visit - Distance Health Virtual Visit Note Patient seen on [facility] platform. Location of patient: [place] History of Present Illness Evgeny Delgado is [...] MG TABLET - BENZONATATE 100 MG CAPSULE -[email or web address] [email or web address] This link shares information about when antibiotics may help and when they may not. - Red flags discussed for need for in person care - All questions answered Jeanette Abdul APRN.BIOMETRICS SPECIALIST If you let us know who your [...] would like to continue care with a [facility] Primary Care physician, please ask your provider to place a Establish Primary Care order. Use [employer] to manage your care, wherever you are, 08/05, on your mobile device or computer. [employer] connects you to [employer] so you can access all your health information in one place and also schedule and request vir (more content not included)... [facility] Evaluation note Diagnosis URI, acute- Primary Acute upper respiratory infections of unspecified site documented in this encounter [facility] noteNo assessment information availableDoctors [facility] Work Phone: Evaluation note* Diagnosis Heart murmur Undiagnosed cardiac murmurs documented in this encounter [facility] note* Diagnosis Acute respiratory failure with hypoxia and hypercapnia (HCC)- Primary Acute respiratory failure with hypoxia and hypercapnia (HCC) Muscular dystrophies (HCC) Hereditary progressive muscular dystrophy Chronic diastolic heart failure (HCC) Chronic diastolic heart failure Chronic respiratory failure with hypoxia and hypercapnia (HCC) Chronic diastolic heart failure (HCC) Chronic diastolic heart failure Muscular dystrophies (HCC) Hereditary progressive muscular dystrophy Type 2 diabetes mellitus, without long-term current use of insulin (HCC) Nonrheumatic aortic valve stenosis Aortic valve disorders documented in this encounter [facility] Purpose Family History No Family History Records FoundNo Family History Records FoundNo Family History Records FoundNo Family History Records FoundNo Family History Records FoundNo Family History Records FoundNo Family History Records FoundNo Family History Records Found Advance Directives No Advanced Directives Records Found Advance Directive Response Recorded Date/ Time Advance Directives No May 24 6:29pm Date Activated Date Inactivated Comments 04/16/2023 10:37 PM 04/20/2023 8:43 PM Question Answer Comments Intubation/Re-intubation at the time of arrest: No Defibrillation/Cardioversion: Yes Chest Compressions: No Resuscitative Medications: Yes Date Activated Date Inactivated Comments 04/16/2023 10:37 PM 04/16/2023 10:37 PM Date Activated Date Inactivated Comments 04/09/2023 7:51 PM 04/16/2023 10:37 PM Date Activated Date Inactivated Comments 04/05/2023 9:26 PM 04/08/2023 5:11 PM Documents on File Type Date Recorded Patient Lead Data Architect Expl anation ACP-Do Not Resuscitate 02/11/2025 12:32 PM DNR-CCA ACP-Advance Directive 02/11/2025 12:30 PM Health Care Power of Wheel Buffer Date Activated Date Inactivated Comments 02/11/2025 12:33 PM Date Activated Date Inactivated Comments 02/10/2025 11:59 PM 02/11/2025 12:33 PM Date Activated Date Inactivated Comments 04/16/2023 10:37 PM 04/20/2023 8:43 PM Question Answer Comments Intubation/Re-intubation at the time of arrest: No Defibrillation/Cardioversion: Yes Chest Compressions: No Resuscitative Medications: Yes Date Activated Date Inactivated Comments 04/16/2023 10:37 PM 04/16/2023 10:37 PM Date Activated Date Inactivated Comments 04/09/2023 7:51 PM 04/16/2023 10:37 PM Healthcare Agents on File Name Relationship Healthcare Agent Relationship Communication Sherine Delgado Spouse Primary Decision Maker Lee Delgado Child Secondary Decision Maker Jaja Sheldon Child Supplemental ( Other) Decision Maker Chief Complaint and Reason for Visit Chief Complaint shortness of breath, chf exacerbation Reason for Referral Specialty Diagnoses / Procedures Referred By Contac t Referred To Contact Diagnoses Heart murmur Procedures Echo (TTE) complete (PRN contrast/bubble/strain/3D) NV ECHO TTHRC R-T 2D W/WOM-MODE COMPL SPEC&COLR D NV TTE W OR WO URBANO PINTO Mark F, MD [address] [place] [address] Referral ID Status Reason Start Date Expiration Date Visits Re quested Visits Authorized [id number] Closed 12/16/2024 12/16/2025 1 1 Additional Source Comments Source Comments (unrecognize d section and content) In the event this informatio n is protected by the Federal Confidentiality of Alcohol and Drug Abuse Patient Records regulations: The Federal rules restrict any use of the information to criminally investigate or prosecute any alcohol or drug abuse patient.[facility] Reason for Visit (unrecogniz ed section and content) Reason Comments Upper Respiratory Infection Specialty Diagnoses / Procedures Referred By Contac t Referred To Contact Diagnoses Heart murmur Procedures Echo (TTE) complete (PRN contrast/bubble/strain/3D) NV ECHO TTHRC R-T 2D W/WOM-MODE COMPL SPEC&COLR D NV TTE W OR WO URBANO PINTO Mark F, MD [address] [facility] [place] [id number] Referral ID Status Reason Start Date Expiration Date Visits Re quested Visits Authorized [id number] Closed 12/16/2024 12/16/2025 1 1 Reason Comments Shortness of Breath Patient presents to the emergency department with complaint of increasing shortness of breath. Patient reports that he recently returned from [place] and has not felt right since. He has been checking his Spo2 levels at home with the lowest being in the 70's Has been using oxygen which has been making him feel better. Specialty Diagnoses / Procedures Referred By Wiliam hayden Referred To Contact Diagnoses Acute on chronic respiratory failure with hypoxia and hypercapnia (HCC) Arleth Milligan MD [address] [place] [address] Phone: tel: fax: [facility] [address] [place] [address] Referral ID Status Reason Start Date Expiration Date Visits Re quested Visits Authorized [id number] 1 1 (unrecognized sect ion and content) No Status Records FoundNo Status Records FoundNo Status Records FoundNo Status Records FoundNo Status Records FoundNo Status Records FoundNo Status Records FoundNo Status Records Found INFORMATION SOURCE (unrecogn ized section and content) DATE CREATED AUTHOR 02/12/2022 [facility] DATE CREATED AUTHOR AUTHOR'S ORGANIZ ATION 06/08/2022 [facility] DATE CREATED AUTHOR AUTHOR'S ORGANIZ ATION 03/01/2023 [facility] DATE CREATED AUTHOR AUTHOR'S ORGANIZ ATION 03/27/2023 [facility] DATE CREATED AUTHOR AUTHOR'S ORGANIZ ATION 05/02/2023 [facility] DATE CREATED AUTHOR AUTHOR'S ORGANIZ ATION 07/03/2023 [facility] DATE CREATED AUTHOR AUTHOR'S ORGANIZ ATION 03/05/2025 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5 (3) MG/3ML SOLN nebulizer solutionIndicatio ns:Acute respiratory failure with hypoxia and hypercapnia (HCC),Muscular dystrophies (HCC) Inhale 3 mLs into the lungs 3 times daily 360 mL 3 02/28/2025 albuterol (PROVENTIL) (2.5 MG/3ML) 0.083% nebulizer solutionIndicatio ns:Acute respiratory failure with hypoxia and hypercapnia (HCC),Muscular dystrophies (HCC) Take 3 mLs by nebulization every 4 hours as needed for Wheezing 120 each 3 02/13/2025 traZODone (DESYREL) 50 MG tablet Take 1 tablet by mouth nightly as needed for Sleep 30 tablet 2 02/13/2025 citalopram (CELEXA) 20 MG tablet Take 1 tablet by mouth daily 30 tablet 3 02/14/2025 hydrocortisone 1 % cream Apply topically 2 times daily. 30 g 1 02/13/2025 Scheduled Active and Recently Administ ered Medications (unrecognized section and content) Medication Order 02/26/2025 02/27/2025 02/28/2025 allopurinol (ZYLOPRIM) tablet 300 mg 300 mg, Oral, DAILY, First dose on Mon02/11/25 at 0900, Until Discontinued 822 (Given - Provider: Flory Ibarra) 0808 (Given - Provider: Flory Ibarra) 0917 (Given - Provider: Drea Huff RN) ALPRAZolam (XANAX) tablet 0.5 mg 0.5 mg, Oral, Nightly, First dose on Mon02/11/25 at 2100, Until Discontinued 2153 (Given - Provider: Paul Newsome RN) 0 (Given - Provider: Eliza Perez RN) 2100 (Due) aspirin EC tablet 81 mg 81 mg, Oral, DAILY, First dose on Mon02/11/25 at 0900, Until Discontinued 822 (Given - Provider: Flory Ibarra) 08 (Given - Provider: Flory Ibarra) 0917 (Given - Provider: Drea Huff RN) atorvastatin (LIPITOR) tablet 40 mg 40 mg, Oral, DAILY, First dose on Mon02/11/25 at 0900, Until Discontinued 822 (Given - Provider: Flory Ibarra) 0808 (Given - Provider: Flory Ibarra) 0917 (Given - Provider: Drea Huff RN) cetirizine (ZYRTEC) tablet 10 mg 10 mg, Oral, DAILY, First dose on Mon02/19/25 at 0900, Until Discontinued 822 (Given - Provider: Flory Ibarra) 08 (Given - Provider: Flory Ibarra) 0918 (Given - Provider: Drea Huff RN) citalopram (CELEXA) tablet 20 mg 20 mg, Oral, DAILY, First dose on Mon02/11/25 at 0900, Until Discontinued 822 (Given - Provider: Flory Ibarra) 0809 (Given - Provider: Flory Ibarra) 0917 (Given - Provider: Drea Huff RN) empagliflozin (JARDIANCE) tablet 10 mg 10 mg, Oral, DAILY, First dose on Mon02/11/25 at 0900, Until Discontinued, Indication of Use: Heart Failure (preserved EF), Substituted for dapagliflozin (FARXIGA). Note: Discontinuation of therapy 3 days prior to surgery or major procedures is recommended given the risk for euglycemic diabetic ketoacidosis. 0823 (Given - Provider: Flory Ibarra) 08 (Given - Provider: Flory Ibarra) 09 (Given - Provider: Drea Huff RN) enoxaparin (LOVENOX) injection 40 mg 40 mg, SubCUTAneous, DAILY, First dose on Mon02/11/25 at 0900, Until Discontinued, Indication of Use: Prophylaxis-DVT/PE 822 (Given - Provider: Flory Ibarra) 08 (Given - Provider: Flory Ibarra) 09 (Given - Provider: Drea Huff RN) furosemide (LASIX) tablet 20 mg (CANCELED) 20 mg, Oral, DAILY, First dose on Mon02/11/25 at 0900, Until Discontinued 822 (Given - Provider: Flory Ibarra) 808 (Given - Provider: Flory Ibarra) furosemide (LASIX) tablet 40 mg 40 mg, Oral, DAILY, First dose (after last modification) on Mon02/28/25 at 0900, Until Discontinued 916 (Given - Provider: Drea Huff RN) glipiZIDE (GLUCOTROL) tablet 2.5 mg 2.5 mg, Oral, DAILY BEFORE BREAKFAST, First dose on Mon02/11/25 at 0700, Until Discontinued 07 (Given - Provider: Flory Ibarra) 0645 (Given - Provider: Flory Ibarra) 0708 (Given - Provider: Drea Huff RN) hydrocortisone 1 % cream Topical, 2 TIMES DAILY, First dose on Mon02/11/25 at 0900, Apply to left ankle. 08 (Not Given - Provider: Flory Ibarra - Reason: Patient/family refused)220 (Not Given - Provider: Paul Newsome RN - Reason: Patient/family refused) 08 (Not Given - Provider: Flory Ibarra - Reason: Patient/family refused)220 (Not Given - Provider: Eliza Perez RN - Reason: Patient/family refused) 09 (Not Given - Provider: Drea Huff RN - Reason: Patient/family refused)2100 (Due) ipratropium (ATROVENT) 0.03 % nasal spray 2 spray (Patient Supplied) 2 spray, Each Nostril, 2 TIMES DAILY, First dose on Mon02/11/25 at 0015, Until Discontinued 0829 (Given - Provider: Flory Ibarra)220 (Given - Provider: Paul Newsome RN) 08 (Given - Provider: Flory Ibarra)220 (Given - Provider: Eliza Perez, MELISSA) 09 (Given - Provider: Drea Huff, MELISSA)2099 (Due) ipratropium 0.5 mg-albuterol 2.5 mg (DUONEB) nebulizer solution 1 Dose (CANCELED) 1 Dose, Inhalation, 4 TIMES DAILY RESP, First dose (after last modification) on Mon02/14/25 at 2000, Until Discontinued, Initiate RT Bronchodilator Protocol: Yes - Inpatient Protocol 0522 (Given - Provider: Robert Reagan [facility])1115 (Given - Provider: Duane Aldana [facility])1622 (Given - Provider: Duane Aldana [facility]AC[facility] SIZER)2108 (Given - Provider: Valencia Olson [facility]) 0610 (Given - Provider: Duane Aldana [facility]ZER)1124 (Given - Provider: Duane Aldana [facility]ACQU[facility] SIZER)170 (Not Given - Provider: Karyn Patel [facility] - Reason: Patient not available - Comment: patient in the restroom at this time)2027 (Given - Provider: Shannon Oconnor [facility]) 0555 (Given - Provider: Shannon Oconnor [facility]ZER)1030 (Given - Provider: Liliane Rod [facility]) ipratropium 0.5 mg-albuterol 2.5 mg (DUONEB) nebulizer solution 1 Dose 1 Dose, Inhalation, 3 TIMES DAILY, First dose (after last modification) on Mon02/28/25 at 2100, Until Discontinued, Initiate RT Bronchodilator Protocol: Yes - Inpatient Protocol 2099 (Due) metoprolol succinate (TOPROL XL) extended release tablet 25 mg 25 mg, Oral, DAILY, First dose on Mon02/11/25 at 0900, Until Discontinued, Do not crush or chew. 0823 (Given - Provider: Flory Ibarra) 08 (Given - Provider: Flory Ibarra) 0917 (Given - Provider: Drea Huff, MELISSA) midodrine (PROAMATINE) tablet 10 mg 10 mg, Oral, 3 TIMES DAILY WITH MEALS, First dose on Mon02/11/25 at 0800, Until Discontinued 08 (Given - Provider: Flory Ibarra)1136 (Given - Provider: Flory Ibarra)1647 (Given - Provider: Flory Ibarra) 0808 (Given - Provider: Flory Ibarra)1203 (Given - Provider: Burt Hdz, MELISSA)1728 (Given - Provider: Burt Hdz, RN) 0918 (Given - Provider: Drea Huff RN)1205 (Given - Provider: Drea Huff RN)1648 (Given - Provider: Drea Huff RN) pantoprazole (PROTONIX) tablet 40 mg 40 mg, Oral, DAILY BEFORE BREAKFAST, First dose on Mon02/11/25 at 0700, Until Discontinued, Do not crush or break. 0703 (Given - Provider: Flory Ibarra) 0645 (Given - Provider: Flory Ibarra) 0708 (Given - Provider: Drea Huff RN) sacubitril-valsartan (ENTRESTO) 24-26 MG per tablet 0.5 tablet 0.5 tablet, Oral, 2 TIMES DAILY, First dose on Mon02/11/25 at 0015, Until Discontinued 822 (Given - Provider: Flory Ibarra)2153 (Given - Provider: Paul Newsome RN) 08 (Given - Provider: Flory Ibarra)2156 (Given - Provider: Eliza Perez, MELISSA) 09 (Given - Provider: Drea Huff, MELISSA)2100 (Due) sodium chloride flush 0.9 % injection 10 mL 10 mL, IntraVENous, EVERY 12 HOURS SCHEDULED (2 times per day), First dose on Mon02/11/25 at 0900, Until Discontinued 825 (Not Given - Provider: Flory Ibarra - Reason: Loss of IV access)2204 (Not Given - Provider: Paul Newsome RN - Reason: Loss of IV access) 813 (Not Given - Provider: Flory Ibarra - Reason: Loss of IV access)2200 (Not Given - Provider: Eliza Perez, MELISSA - Reason: Other) 09 (Not Given - Provider: Drea Huff RN - Reason: Loss of IV access)2100 (Due) tamsulosin (FLOMAX) capsule 0.8 mg 0.8 mg, Oral, DAILY, First dose on Mon02/11/25 at 0900, Until Discontinued, Do not crush or break. Give 30 minutes after a full meal to limit risk of orthostatic hypotension/falls. 0823 (Given - Provider: Flory Ibarra) 08 (Given - Provider: Flory Ibarra) 0917 (Given - Provider: Drea Huff, MELISSA) therapeutic multivitamin-minerals 1 tablet 1 tablet, Oral, DAILY, First dose on Mon02/11/25 at 0900, Until Discontinued 822 (Given - Provider: Flory Ibarra) 08 (Given - Provider: Flory Ibarra) 0918 (Given - Provider: Drea Huff, MELISSA) PRN Medication Order 02/26/2025 02/27/2025 02/28/2025 acetaminophen (TYLENOL) suppository 650 mg(Linked Group 1) 650 mg, Rectal, EVERY 6 HOURS PRN, Starting on Mon02/10/25 at 2359, Until Discontinued, Pain Mild (1-3), allowed for higher pain score per patient request, Fever, For temp greater than 100.4 F (38 C), Administer if oral route cannot be used. 1040 (See Alternative - Provider: Flory Ibarra) 1000 (See Alternative - Provider: Flory Ibarra)2158 (See Alternative - Provider: Eliza Perez, MELISSA) acetaminophen (TYLENOL) tablet 650 mg(Linked Group 1) 650 mg, Oral, EVERY 6 HOURS PRN, Starting on Mon02/10/25 at 2359, Until Discontinued, Pain Mild (1-3), allowed for higher pain score per patient request, Fever, For temp greater than 100.4 F (38 C), Maximum dose of acetaminophen is 4000 mg from all sources in 24 hours. 1040 (Given - Provider: Flory Ibarra) 1000 (Given - Provider: Flory Ibarra)2158 (Given - Provider: Eliza Perez, MELISSA) albuterol (PROVENTIL) (2.5 MG/3ML) 0.083% nebulizer solution 2.5 mg 2.5 mg, Nebulization, EVERY 4 HOURS PRN, Starting on Mon02/11/25 at 0109, Until Discontinued, Wheezing, Initiate RT Bronchodilator Protocol: Yes - Inpatient Protocol Benzocaine-Menthol (CEPACOL) 1 lozenge 1 lozenge, Oral, EVERY 2 HOURS PRN, Starting on 02/16/25 at 1221, Until Discontinued, Sore Throat dextromethorphan-guaiFEN esin (MUCINEX DM) 30-600 MG per extended release tablet 1 tablet 1 tablet, Oral, 2 TIMES DAILY PRN, Starting on 02/16/25 at 1220, Until Discontinued, Cough, Do not crush or break. 08 (Given - Provider: Flory Ibarra)2153 (Given - Provider: Paul Newsome RN) 08 (Given - Provider: Flory Ibarra)2199 (Given - Provider: Eliza Perez, MELISSA) 09 (Given - Provider: Drea Huff RN) ondansetron (ZOFRAN-ODT) disintegrating tablet 4 mg(Linked Group 2) 4 mg, Oral, EVERY 8 HOURS PRN, Starting on Mon02/10/25 at 2359, Until Discontinued, Nausea, Vomiting polyethylene glycol (GLYCOLAX) packet 17 g 17 g, Oral, DAILY PRN, Starting on Mon02/10/25 at 2359, Until Discontinued, Constipation, First line therapy for constipation potassium bicarb-citric acid (EFFER-K) effervescent tablet 40 mEq(Linked Group 3) 40 mEq, Oral, PRN, Starting on Mon02/10/25 at 2359, Until Discontinued, Per Potassium Replacement Protocol, Administer as alternative if patient unable to tolerate oral tablet. K Lab Replacement Action 3.1 to 3.5 40 mEq ORAL x 1 Under 3.1 Refer to IV replacement protocol Recheck K level in AM. Protocol not for use in patients with CrCl less than 30 mL/min. Do not chew or crush. Dissolve flavored tablets completely in 3 to 4 ounces of cold water; unflavored tablets may be dissolved in 3 to 4 ounces of cold juice. Patient to sip slowly over a 5 to 10 minute period. May further dilute if GI adverse effects occur. potassium chloride (KLOR-CON M) extended release tablet 40 mEq(Linked Group 3) 40 mEq, Oral, PRN, Starting on Mon02/10/25 at 2359, Until Discontinued, Potassium Replacement, May give alternative linked oral order (ordered as effervescent, packet, or liquid solution) if patient unable to tolerate tablet. K Lab Replacement Action 3.1 to 3.5 40 mEq ORAL x 1 Under 3.1 Refer to IV replacement protocol Recheck K level in AM. Protocol not for use in patients with CrCl less than 30 mL/min. Do not crush, chew, or suck on tablet. Tablet may also be broken in half and each half swallowed separately. sodium chloride (OCEAN, BABY AYR) nasal spray 1 spray 1 spray, Each Nostril, EVERY 4 HOURS PRN, Starting on Mon02/16/25 at 1222, Until Discontinued, Congestion 0829 (Given - Provider: Flory Ibarra)2203 (Given - Provider: Paul Newsome, RN) 0813 (Given - Provider: Flory Ibarra)2200 (Given - Provider: Eliza Perez, MELISSA) 0916 (Given - Provider: Drea Huff, MELISSA) traZODone (DESYREL) tablet 50 mg 50 mg, Oral, NIGHTLY PRN, Starting on Mon02/11/25 at 0322, Until Discontinued, Sleep 2153 (Given - Provider: Paul Newsome, MELISSA) 2200 (Given - Provider: Eliza Perez, MELISSA) Linked Groups Order Group 1: acetaminophen (TYLENOL) tablet 650 mgJump to med 650 mg, Oral, EVERY 6 HOURS PRN, Starting on Mon02/10/25 at 2359, Until Discontinued, Pain Mild (1-3), allowed for higher pain score per patient request, Fever, For temp greater than 100.4 F (38 C), Maximum dose of acetaminophen is 4000 mg from all sources in 24 hours. Or acetaminophen (TYLENOL) suppository 650 mgJump to med 650 mg, Rectal, EVERY 6 HOURS PRN, Starting on Mon02/10/25 at 2359, Until Discontinued, Pain Mild (1-3), allowed for higher pain score per patient request, Fever, For temp greater than 100.4 F (38 C), Administer if oral route cannot be used. Group 2: ondansetron (ZOFRAN-ODT) disintegrating tablet 4 mgJump to med 4 mg, Oral, EVERY 8 HOURS PRN, Starting on Mon02/10/25 at 2359, Until Discontinued, Nausea, Vomiting Or ondansetron (ZOFRAN) injection 4 mg (CANCELED) 4 mg, IntraVENous, EVERY 6 HOURS PRN, Starting on Mon02/10/25 at 2359, Until Mon02/28/25 at 0807, Nausea, Vomiting, Administer if oral route cannot be used. Group 3: potassium chloride (KLOR-CON M) extended release tablet 40 mEqJump to med 40 mEq, Oral, PRN, Starting on Mon02/10/25 at 2359, Until Discontinued, Potassium Replacement, May give alternative linked oral order (ordered as effervescent, packet, or liquid solution) if patient unable to tolerate tablet. K Lab Replacement Action 3.1 to 3.5 40 mEq ORAL x 1 Under 3.1 Refer to IV replacement protocol Recheck K level in AM. Protocol not for use in patients with CrCl less than 30 mL/min. Do not crush, chew, or suck on tablet. Tablet may also be broken in half and each half swallowed separately. Or potassium bicarb-citric acid (EFFER-K) effervescent tablet 40 mEqJump to med 40 mEq, Oral, PRN, Starting on Mon02/10/25 at 2359, Until Discontinued, Per Potassium Replacement Protocol, Administer as alternative if patient unable to tolerate oral tablet. K Lab Replacement Action 3.1 to 3.5 40 mEq ORAL x 1 Under 3.1 Refer to IV replacement protocol Recheck K level in AM. Protocol not for use in patients with CrCl less than 30 mL/min. Do not chew or crush. Dissolve flavored tablets completely in 3 to 4 ounces of cold water; unflavored tablets may be dissolved in 3 to 4 ounces of cold juice. Patient to sip slowly over a 5 to 10 minute period. May further dilute if GI adverse effects occur. Or potassium chloride 10 mEq/100 mL IVPB (Peripheral Line) (CANCELED) 10 mEq, IntraVENous, PRN, Starting on Mon02/10/25 at 2359, Until Mon02/28/25 at 0807, at 100 mL/hr, Potassium Replacement, K Lab Replacement Action 2.7 to 3.0 10 mEq IVPB x 6 doses (60 mEq Total) Under 2.7 CALL PROVIDER and administer 10 mEq IVPB x 6 doses (60 mEq Total) Infuse at 10 mEq/hr. Repeat Potassium lab 1 hour after final administration. Protocol not for use in patients with CrCl less than 30 mL/min. FOR RECORDS PERTAINING TO PATIENTS WHO ARE [...] BE BASED ON THE PRIMARY CLINICAL RECORDS. [facility] [employer] [facility] provides no warranty or guarantee of the accuracy or completeness of information in this document.
[2025-04-03 21:42] VITALS: BP 133/85; PULSE 89; TEMP 36.9; O2SAT 98
--- NOTE | 2025-04-03 21:48 | XR_ITS ---
The [address] [address] Patient Name: EVGENY DELGADO MRN: [id number] date: 1955 Sex: M Assigned Patient Location: ED.MAIN Current Patient Location: ED.MAIN Accession/Order Number: [id number] Exam Date: 04/03/2025 22:42 Report Date: 04/03/2025 22:43 At the request of: DORY CASILLAS DO Procedure: XR chest 2V XR chest 2V 04/03/2025 10:33 PM SIGNS AND SYMPTOMS: ^congestion PROTOCOL: Frontal and lateral radiographs of the chest COMPARISON: 02/16/2025 FINDINGS: The trachea is midline. The heart and mediastinal structures are within normal limits. The lung parenchyma is clear. The bony thorax is intact. Degenerative changes are noted in the shoulders and thoracic spine. XR/XR chest 2V IMPRESSION: No acute cardiopulmonary pathology. Impression dictated by: Arsh Flannery M.D. 04/03/2025 10:43 PM [facility] Electronically authenticated by: [id number] Y Date: 04/03/2025 22:43
[2025-04-03] MEDS: AZITHROMYCIN 500 MG in 0.9 % SODIUM CHLORIDE 250 ML 250 MG IV (22:50)
[2025-04-03 22:59] LABS: Basophils Absolute Auto 0.1 10^3/uL (0.0-0.1); Basophils Percent Auto 0.8 % (0.2-2.0); Eosinophils Absolute Auto 0.2 10^3/uL (0.0-0.7); Eosinophils Percent Auto 2.4 % (0.9-7.0); Hematocrit 48.3 % (42.0-54.0); Hemoglobin 14.4 g/dL (14.0-18.0); Immature Granulocytes Abs Auto 0.06 10^3/uL (0.00-0.03); Immature Granulocytes Pct Auto 0.9 % (0.0-0.5); Lymphocytes Absolute Auto 0.7 10^3/uL (1.2-3.8); Lymphocytes Percent Auto 10.7 % (20.5-60.0); Mean Corpuscular HGB Conc 29.8 g/dL (29.9-35.2); Mean Corpuscular Hemoglobin 27.1 pg (25.9-34.0); Mean Platelet Volume 10.2 fL (9.5-13.5); Monocytes Absolute Auto 0.5 10^3/uL (0.3-0.8); Monocytes Percent Auto 8.2 % (1.7-12.0); Neutrophils Absolute Auto 4.9 10^3/uL (1.4-6.5); Platelet Count 164 10^3/uL (150-450); Red Blood Count 5.31 10^6/uL (4.70-6.10); White Blood Count 6.4 10^3/uL (4.0-11.0)
[2025-04-03 23:08] LABS: Anion Gap 8.8; BUN Creatinine Ratio 32.7; Calcium 9.3 mg/dL (8.5-10.1); Carbon Dioxide 37.5 mmol/L (21.0-32.0); Chloride 100 mmol/L (98-107); Estimated GFR (African America >60 (>=60 mL/min/1.73m^2); Estimated GFR (Non-African Ame >60 (>=60 mL/min/1.73m^2); Glucose 160 mg/dL (74-106); Potassium 4.3 mmol/L (3.5-5.1); Sodium 142 mmol/L (136-145)
[2025-04-03 23:10] LABS: Influenza Virus A Antigen Negative; Influenza Virus B Antigen Negative; Internal Control Within Normal Limits; SARS-CoV-2 Ag NEGATIVE (NEGATIVE)
--- NOTE | 2025-04-03 23:11 | ED.GENADUL1 ---
HPI HPI - General Adult General Chief complaint: Upper Respiratory Infection Stated complaint: CONGESTION Time Seen by Provider: 04/03/25 21:48 Source: patient and family Mode of arrival: walk-in Limitations: no limitations History of Present Illness HPI narrative: The patient is a very pleasant 77-year-old male with a 55-year history of having muscular dystrophy. The patient is presenting to the emergency department today with significant congestion. His symptoms began over the weekend. He started feeling off. Then on Monday he developed a stuffy head, ear pain, throat pain, and thick mucus in his chest. He states everything seems to now have migrated into his chest. The problem is, the patient has a partially paralyzed diaphragm and has a very tiny hard time expectorating mucus. He has been taking Mucinex twice a day and when this episode started he doubled that. The patient states that it is a yellow productive sputum. He does see Dr. Bowles for pulmonology. He was started on doxycycline on April 01. He was told by Dr. Alegre that if his symptoms did not improve then he should return to the emergency department to be evaluated and possibly admitted. The patient recently had a complex hospitalization for 18 days for pneumonia. His states that he goes downhill very fast. The patient at home manages his shortness of breath by wearing oxygen 2 L at all times. The patient does wear BiPAP at night. The patient does DuoNeb treatments twice a day. The patient began taking the doxycycline but indeed has not felt better and feels more short of breath. Patient has a known history of aortic stenosis. This was very heavily investigated in a previous hospitalization. He had a JOHNY that said it was moderate in severity but at this point it is not where they are going to do a valve replacement. He was in the [facility] for 18 days when this was worked up. While hospitalized he was found to have an elevated CO2. Related Data Home Medications ?Medication ?Instructions ?Recorded ?Confirmed allopurinol 300 mg tablet 300 mg PO .once daily 04/03/23 04/03/25 aspirin 81 mg tablet,delayed 81 mg PO DAILY 04/03/23 04/03/25 release atorvastatin 40 mg tablet 40 mg PO DAILY 04/03/23 04/03/25 doxycycline hyclate 100 mg capsule 100 mg PO BID 04/03/23 04/03/25 furosemide 20 mg tablet 20 mg PO DAILY 04/03/23 04/03/25 glyburide micronized 3 mg tablet mg 04/03/23 Held on 04/03/25. Instructions: Doctor's Order sacubitril 24 mg-valsartan 26 mg 1 tab PO BID 04/03/23 04/03/25 tablet (Entresto) alprazolam 0.5 mg tablet 0.25 mg PO BEDTIME 04/03/25 04/03/25 cetirizine 10 mg tablet 10 mg PO DAILY 04/03/25 04/03/25 glipizide 2.5 mg tablet, extended 2.5 mg PO DAILY 04/03/25 04/03/25 release 24 hr ipratropium 0.5 mg-albuterol 3 mg 3 ml inhalation Q8H 04/03/25 04/03/25 (2.5 mg base)/3 mL nebulization soln ipratropium bromide 21 mcg (0.03 2 spray intranasal BID 04/03/25 04/03/25 %) nasal spray metoprolol succinate 25 mg 25 mg PO DAILY 04/03/25 04/03/25 tablet,extended release 24 hr midodrine 10 mg tablet 10 mg PO TID 04/03/25 04/03/25 pantoprazole 40 mg tablet,delayed 40 mg PO DAILY 04/03/25 04/03/25 release tamsulosin 0.4 mg capsule 0.8 mg PO DAILY 04/03/25 04/03/25 trazodone 50 mg tablet 50 mg PO BEDTIME 04/03/25 04/03/25 Allergies Allergy/AdvReac Type Severity Reaction Status Date / Time acetaminophen (From Vicodin) Allergy Mild Hives Verified 04/03/25 21:52 oseltamivir (From Tamiflu) Allergy Mild SOB Verified 04/03/25 21:52 oxycodone Allergy Mild Hives Verified 04/03/25 21:52 Cephalosporins Allergy SOB Verified 04/03/25 21:52 ciprofloxacin (From Cipro) Allergy Hives Verified 04/03/25 21:52 hydrocodone (From Vicodin) Allergy Hives Verified 04/03/25 21:52 levofloxacin Allergy Hives Verified 04/03/25 21:52 Penicillins Allergy Hives Verified 04/03/25 21:52 sitagliptin (From Januvia) Allergy SOB Verified 04/03/25 21:52 loracarbef (From Lorabid) AdvReac Intermediate Rash Verified 04/03/25 21:52 Review of Systems ROS Narrative 10 Systems were reviewed, and unless noted in the HPI, all other systems are reviewed, unremarkable, or noncontributory. PFSH [facility] Social History Smoking status: Former smoker Little interest or pleasure in doing things: not at all Feeling down, depressed, or hopeless: not at all Exam Narrative Exam Narrative: Prior to examining the patient, I have washed with hospital approved and provided Antiseptic Hand Raw Juice Weigher and have also applied gloves.? Prior to touching the patient, I asked for consent to examine the patient.? General: Alert and oriented, well nourished, moderate distress. Eye: PERRL, EOMI, normal conjunctiva. HENT: Normocephalic, normal hearing, moist oral mucosa, no scleral icterus, no sinus tenderness. Neck: Supple, non-tender, no carotid bruits, no JVD, no lymphadenopathy. Lungs: Audible lung sounds without a stethoscope. No end expiratory wheezing. Coarse breath sounds throughout worse on the left than the right, non-labored respiration. No retractions. Patient does have a very, very weak cough Heart: Normal rate, regular rhythm, no murmur, gallop or edema. Abdomen: Soft, non-tender, non-distended, normal bowel sounds, no masses. Musculoskeletal: Normal range of motion and strength, no tenderness or swelling. Skin: Skin is warm, dry and pink, no rashes or lesions. Neurologic: Awake, alert, and oriented X3, CN II-XII intact. Psychiatric: Cooperative, appropriate mood and affect.? Following the conclusion of the examination, I have washed my hands thoroughly after removing examination gloves. Constitutional Vital Signs, click to edit/add: Last Vital Signs Temp 98.4 F 04/03/25 21:42 Pulse 91 H 04/04/25 01:01 Resp 20 04/04/25 01:01 BP 133/85 04/03/25 21:42 Pulse Ox 93 L 04/04/25 01:01 O2 Del Method Nasal Cannula 04/04/25 01:01 O2 Flow Rate 2 04/04/25 01:01 Course Course Hospital Course: Patient is a 70-year-old male presents emergency room with his secondary to worsening difficulty in breathing. Clinically the patient has left-sided rhonchi that are much worse than the right. Patient has a weak cough. He has been on doxycycline for 5 doses and has not had any improvement. Reevaluation(s) Reevaluation #1: Patient was reevaluated and the patient is better. This is a very difficult patient as he is allergic to nearly every drug class. At this time the patient is going to be admitted for clinical pneumonia on the left side. No evidence of sepsis at this time. Time: 01:15 Consultations Consultation #1: I had an opportunity to speak with the admitting practitioner for the evening. She is aware that I am concerned that the patient has a left lower lobe pneumonia and definitely has septic complex history with a muscular dystrophy that he is going to be at significant risk at this time. Time: 01:15 Vital Signs Vital signs: Vital Signs Temperature 98.4 F 04/03/25 21:42 Pulse Rate 89 04/03/25 21:42 Respiratory Rate 20 04/03/25 21:42 Blood Pressure 133/85 04/03/25 21:42 Pulse Oximetry 98 04/03/25 21:42 Oxygen Delivery Method Nasal Cannula 04/03/25 21:42 Oxygen Delivery Flow Rate 2 04/03/25 21:42 Temperature 98.4 F 04/03/25 21:42 Pulse Rate 91 H 04/04/25 01:01 Respiratory Rate 20 04/04/25 01:01 Blood Pressure 133/85 04/03/25 21:42 Pulse Oximetry 93 L 04/04/25 01:01 Oxygen Delivery Method Nasal Cannula 04/04/25 01:01 Oxygen Delivery Flow Rate 2 04/04/25 01:01 Medical Decision Making MDM Narrative Medical decision making narrative: In summary, patient has muscular dystrophy. He requires 2 L O2 via nasal cannula at all times. He requires BiPAP at night. Patient has significant disease progression and has a very weak cough. Patient does see pulmonology who has been helpful in facilitating this gentlemen's care. Patient did not improve with doxycycline after 5 doses and presented to the emergency department for evaluation. While in the emergency department we gave the patient azithromycin for atypicals but otherwise the patient is allergic to all other medications. I discussed with the admitting team the possibility of using something like aztreonam to have a broad-spectrum coverage. Differential Diagnosis Differential Diagnosis: Pneumonia, bronchitis, pleural effusion, COPD exacerbation Medical Records Medical records reviewed: Yes I reviewed the patient's medical records Lab Data Lab results reviewed: Yes I reviewed the patient's lab results Labs: Lab Results 04/03/25 04/03/25 Range/Units 22:45 22:48 WBC 6.4 (4.0-11.0) 10^3/uL RBC 5.31 (4.70-6.10) 10^6/uL Hgb 14.4 (14.0-18.0) g/dL Hct 48.3 (42.0-54.0) % MCV 91.0 (80.0-94.0) fL MCH 27.1 (25.9-34.0) pg MCHC 29.8 L (29.9-35.2) g/dL RDW 22.0 H (11.0-15.0) % Plt Count 164 (150-450) 10^3/uL MPV 10.2 (9.5-13.5) fL Neut % (Auto) 77.0 H (43.0-75.0) % Lymph % (Auto) 10.7 L (20.5-60.0) % Garvin % (Auto) 8.2 (1.7-12.0) % Eos % (Auto) 2.4 (0.9-7.0) % Baso % (Auto) 0.8 (0.2-2.0) % Neut # (Auto) 4.9 (1.4-6.5) 10^3/uL Lymph # (Auto) 0.7 L (1.2-3.8) 10^3/uL Garvin # (Auto) 0.5 (0.3-0.8) 10^3/uL Eos # (Auto) 0.2 (0.0-0.7) 10^3/uL Baso # (Auto) 0.1 (0.0-0.1) 10^3/uL Abs Immat Gran (auto) 0.06 H (0.00-0.03) 10^3/uL Imm/Tot Granulo (auto) 0.9 H (0.0-0.5) % Sodium 142 (136-145) mmol/L Potassium 4.3 (3.5-5.1) mmol/L Chloride 100 (98-107) mmol/L Carbon Dioxide 37.5 H (21.0-32.0) mmol/L Anion Gap 8.8 BUN 18.0 (7.0-18.0) mg/dL Creatinine 0.55 L (0.70-1.30) mg/dL Est GFR ( Amer) >60 (>=60 mL/min/1.73m^2) Est GFR (Non-Af Amer) >60 (>=60 mL/min/1.73m^2) BUN/Creatinine Ratio 32.7 Glucose 160 H (74-106) mg/dL Calcium 9.3 (8.5-10.1) mg/dL Influenza Type A Ag Negative Influenza Type B Ag Negative SARS-CoV-2 Ag (CV2AG) Negative (NEGATIVE) Imaging Data Chest x-ray: Attestation: I have reviewed the pertinent imaging results. Radiologist's impression: ITS Impressions Chest X-Ray 04/03/25 21:48 IMPRESSION: No acute cardiopulmonary pathology. Impression dictated by: Arsh Flannery M.D. 04/03/2025 10:43 PM Dictation Location: [place] [address] Electronically authenticated by: [id number] Y Date: 04/03/2025 22:43 Discharge Plan Discharge Chief Complaint: Upper Respiratory Infection Clinical Impression: Left lower lobe pneumonia, Muscular dystrophy, Acute dyspnea Patient Disposition: Admitted to [facility], OBS Time of Disposition Decision: 01:38 Condition: Fair Prescriptions / Home Meds: No Action atorvastatin 40 mg tablet 40 mg PO DAILY doxycycline hyclate 100 mg capsule 100 mg PO BID aspirin 81 mg tablet,delayed release (DR/EC) 81 mg PO DAILY allopurinol 300 mg tablet 300 mg PO .once daily furosemide 20 mg tablet 20 mg PO DAILY glyburide micronized 3 mg tablet Entresto 24-26 mg tablet 1 tab PO BID alprazolam 0.5 mg tablet 0.25 mg PO BEDTIME metoprolol succinate 25 mg tablet extended release 24 hr 25 mg PO DAILY midodrine 10 mg tablet 10 mg PO TID glipizide 2.5 mg tablet extended release 24hr 2.5 mg PO DAILY ipratropium bromide 21 mcg (0.03 %) spray,non-aerosol 2 spray INTRANASAL BID ipratropium-albuterol 0.5 mg-3 mg(2.5 mg base)/3 mL solution for nebulization 3 ml INHALATION Q8H pantoprazole 40 mg tablet,delayed release (DR/EC) 40 mg PO DAILY tamsulosin 0.4 mg capsule 0.8 mg PO DAILY trazodone 50 mg tablet 50 mg PO BEDTIME cetirizine 10 mg tablet 10 mg PO DAILY Print Language: Azeri Referrals: MARCO JOSEPH [Primary Care Provider, Family Practice] - 1 week Procedures ED Procedure Instructions Procedures Procedures: Respiratory therapy was asked to aid in this gentlemen's care. She performed a PEP on him. Patient also received a DuoNeb treatment.
[2025-04-04] VITALS (18 sets, daily range): BP systolic 107–144; BP diastolic 64–83; PULSE 73–101; TEMP 36.7–37.6; O2SAT 90–96; BMI 30.4
[2025-04-04] MEDS: IPRATROPIUM/ALBUTEROL SULFATE 3 ML AMPUL.NEB IH ×4 (01:01→22:23)
[2025-04-04 03:08] LABS: C Reactive Protein 1.57 mg/dL (<=0.50)
--- OUTSIDE RECORDS SUMMARY | 2025-04-04 03:37 | XMS_ITS | CCD ---
Author Organization [facility] Care Team Providers Care Vest Front Presser Name Role Phone Unavailable Primary Care Provider UnavailPAYAL Garcia Attending Unavailable MARCO BOSCH Primary Care Unavailable GEORGE NIETO Referring Unavailable ANDI LICEA Admitting Unavailable DO Marco Bosch Primary Care Provider MD George Nieto Attending Provider HIRO, DR LARA Primary Care Unavailable GAURAV, DR FABIAN [employer] Unavailable LAMBERTO ., DR PLEITEZ Attending Unavailable LAMBETRO ., DR PLEITEZ Admitting Unavailable HOY ., [...] Unavailable HIRO, DR LARA Primary Care Unavailable CARLISLE, DR NAIMA [employer] Unavailable HIRO, DR [...] Unavailable Marco Bosch MD Primary Care Provider [phone] Marco Bosch MD Primary Care Provider FABIAN ROOT Attending Unavailable FABIAN ROOT Referring [...] [HYDROCODONE-ACETAMINO PHEN] Drug Allergy 01-20-20 15 Unknown [facility] Work Phone: (5 sources) acetohydroxamic acid Drug Allergy 10-15-20 13 Unknown, Other (See Comments) [facility] Work Phone: (5 sources) Cephalosporins (Antibiotic); Translations: [CEPHALOSPORINS] Drug Allergy 10-15-20 13 Shortness of Breath [facility] Work Phone: (3 sources) cyclobenzaprine Drug Allergy 12-13-19 17 Unknown, Other (See Comments) [facility] Work Phone: [phone] (4 sources) levoFLOXacin; Translations: [LEVOFLOXACIN] Drug Allergy 12-13-19 17 [facility] Work Phone: (4 sources) loracarbef; Translations: [LORACARBEF] Drug Allergy 10-15-20 13 Shortness of Breath [facility] Work Phone: (2 sources) Oseltamivir; Translations: [OSELTAMIVIR] Drug Allergy 12-13-19 17 Unknown [facility] Work Phone: (4 sources) oxyCODONE; Translations: [OXYCODONE] Drug Allergy 10-15-20 13 Shortness [facility] Breath [facility] Work Phone: [phone] (3 sources) Penicillins; Translations: [PENICILLINS] Drug Allergy 10-15-20 13 Shortness of Breath [facility] Work Phone: (4 sources) SITagliptin; Translations: [SITAGLIPTIN] Drug Allergy 12-13-19 17 [facility] Work Phone: [phone] (3 sources) traMADol Drug Allergy 12-13-19 17 Other: See Comments [facility] Work Phone: (2 sources) Acetaminophen / HYDROcodone Drug Allergy 01-20-20 15 [facility] (2 sources) Cephalosporins (Antibiotic) Drug allergy (disorder) 10-15-20 13 [facility] (1 source) Ciprofloxacin Drug Allergy 05-21-20 22 [facility] (2 sources) guaiFENesin; Translations: [Mucinex] Drug Allergy 05-21-20 22 [facility] (2 sources) levoFLOXacin Drug Allergy 05-21-20 22 [facility] (2 sources) loracarbef Drug Allergy 10-15-20 13 [facility] (2 sources) oxyCODONE Drug Allergy 10-15-20 13 [facility] (2 sources) Penicillins Drug allergy (disorder) 10-15-20 13 [facility] (3 sources) SITagliptin; Translations: [Januvia] Drug Allergy 05-23-20 21 [facility] (1 source) Acetaminophen Drug Allergy 06-20-20 [facility] Rep[facility] (1 source) acetoHEXAMIDE Drug Allergy 06-20-20 [facility] (1 source) Cephalosporins (Antibiotic) Drug allergy (disorder) 06-20-20 [facility] (1 source) cyclobenzaprine Drug Allergy 06-20-20 [facility] (1 source) guaiFENesin Drug Allergy 06-20-20 [facility] (2 sources) hydroCHLOROthiazide; Translations: [hydroCHLOROthiazide] Drug Allergy 06-20-20 [facility] (1 source) HYDROcodone Drug Allergy 06-20-20 [facility] (1 source) levoFLOXacin Drug Allergy 06-20-20 [facility] (1 source) loracarbef Drug Allergy 06-20-20 [facility] (1 source) Oseltamivir Drug Allergy 06-20-20 [facility] (1 source) oxyCODONE Drug Allergy 06-20-20 [facility] (1 source) Penicillins Drug allergy (disorder) 06-20-20 23 [facility] (1 source) SITagliptin Drug Allergy 06-20-20 23 [facility] (1 source) traMADol Drug Allergy 06-20-20 23 [facility] (1 source) guaiFENesin Drug Allergy 04-05-20 23 Shortness Of Breath [facility] (2 sources) hydroCHLOROthiazide Drug Allergy 04-05-20 23 [facility] (2 sources) Oseltamivir Drug Allergy 12-13-19 17 [facility] (2 sources) Penicillins Propensity to adverse reactions to drug 10-15-20 13 Shortness Of Breath [facility] (1 source) cyclobenzaprine; Translations: [Flexeril] Drug Allergy [facility] Rep[facility] (1 source) levoFLOXacin; Translations: [Levaquin] Drug Allergy [facility] (1 source) Oseltamivir; Translations: [Tamiflu] Drug Allergy [facility] (1 source) oxyCODONE; Translations: [OxyCODONE Hydrochloride] Drug Allergy [facility] (1 source) traMADol; Translations: [Ultram] Drug Allergy [facility] Medications Current Medications Medication Drug [...] nasal spray Indications: URI, acute Use 1 [place] in each nostril twice daily for 7 days. 30 mL 0 02/09/2022 02/16/2022 Active Comment on above: Use 1 [place] in each nostril twice daily for 7 [...] extended release oral tablet (3 sources) Uncompetitive R-ejytny-G-aspartate Receptor Antagonist, Sigma-1 Agonist Start: 02-16-2025 Start: [...] nasal spray Indications: URI, acute Use 1 [place] in each nostril daily at bedtime for 10 days. 9.9 mL 0 02/09/2022 2022 Active Comment on above: Use 1 [place] in each nostril daily at bedtime for [...] Inhibitor Start: 04-21-20 23 polyethylene glycol 3350 66335 mg powder for oral solution (1 source) [...] on above: Take 1 capsule by mo [facility] once daily. omeprazole 20 mg delayed release [...] disease (4 sources) Atherosclerotic heart disease of [place] coronary artery without angina pectoris; Translations: [Coronary [...] source) Long-term current use of aspirin; Translations: [care home (current) use of aspirin] Onset: 05-25-2021 12-20-2021 Episodic Other aftercare (1 source) Long-term current use of oral hypoglycemic medication; Translations: [care home (current) use of oral hypoglycemic drugs] Onset: 05-25-2021 12-20-2021 Episodic Other aftercare (1 source) Long-term current use of drug therapy; Translations: [Other remote computer terminal operator (current) drug therapy] Onset: 05-25-2021 12-20-2021 Episodic Other aftercare (1 source) 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; Translations: [NURSING HOME CURRENT USE OF ASPIRIN] Onset: 07-01-2022 Episodic Other aftercare (1 source) care home (current) use of insulin; Translations: [NURSING HOME CURRENT USE OF INSULIN] Onset: 07-01-2022 Episodic Other aftercare (1 source) care home (current) use of oral hypoglycemic drugs; Translations: [NURSING HOME USE ORAL HYPOGLYCEMIC DX] Onset: 07-01-2022 Episodic Other aftercare (1 source) Other remote computer terminal operator (current) drug therapy; Translations: [OTH NURSING HOME CURRENT DRUG THERAPY] Onset: 07-01-2022 Episodic Other [...] Value Interpretation Reference Range Facility Controlled Substances Critical [facility] hospital 03-21-2025 Controlled Substances Agreements [id number]#1.0 0OTGTIFF [facility] Outside Recordson 03-07-2025 Outside Records [id number]#1. 00OTGTIFF [facility] Outside Recordson 03-03-2025 Outside Records [id number] 11 [id number]#1.0 0OTGTIFF [facility] Outside Records [id number]#1.0 0OTGTIFF [facility] Arterial Blood Gaseson 02-20 Ethan Test YES Normal [facility] Comment on above: Performed By: #### A BG #### [facility] [address] [place], [place] [id number] Lens Molding Equipment Operator: Naima Faith MD Body Temp. 37.0 [facility] Comment on above: Performed By: #### A BG #### [facility] [address] [place] [address] Lens Molding Equipment Operator: Naima Faith MD FIO2 28 [facility] Comment on above: Performed By: #### A BG #### [facility] [address] [place] [address] Lens Molding Equipment Operator: Naima Faith MD HCO3 (Bld) [Moles/Vol] 36.3 mmol/L High 22-26 [facility] Comment on above: Performed By: #### A BG #### [facility] [address] [place], [place] [id number] Lens Molding Equipment Operator: Naima Faith MD O2 Device/Flow/% ROOM AIR [facility] Comment on above: Performed By: #### A BG #### [facility] [address] [place], [place] [id number] Lens Molding Equipment Operator: Naima Faith MD Oxygen (Bld) [Partial pressure] 88.0 mm[Hg] Normal 80.0-100.0 [facility] Comment on above: Performed By: #### A BG #### [facility] [address] [place] [address] Lens Molding Equipment Operator: Naima Faith MD Oxygen saturation in Blood 96.2 % Normal 95-98 [facility] Comment on above: Performed By: #### A BG #### [facility] [address] [place] [address] Lens Molding Equipment Operator: Naima Faith MD pCO2 64.6 mmHg Critically high 35-45 [facility] Comment on above: Performed By: #### A BG #### [facility] [address] [place] [address] Lens Molding Equipment Operator: Naima Faith MD pCO2 Adj'd for Temp 64.6 Critically high 35.0-45.0 [facility] Comment on above: Performed By: #### A BG #### [facility] [address] [place] [address] Lens Molding Equipment Operator: Naima Faith MD pH (Bld) 7.368 [pH] Normal 7.35-7.45 [facility] Comment on above: Performed By: #### A BG #### [facility] [address] [place] [address] [address] [place], [place] [id number] Lens Molding Equipment Operator: Naima Faith MD pH Adjst'd for Temp. 7.368 Normal 7.350-7.450 [facility] Comment on above: Performed By: #### A BG #### [address] [place], [place] [id number] Lens Molding Equipment Operator: Naima Faith MD pO2 Adjst'd for Temp 88.0 mmHg Normal 80.0-100.0 [facility] Comment on above: Performed By: #### A BG #### [facility] [address] [place] [address] Lens Molding Equipment Operator: Naima Faith MD Positive Base Excess 8.4 mmol/L High 0.0-2.0 [facility] Comment on above: Performed By: #### A BG #### [facility] [address] [place] [address] Lens Molding Equipment Operator: Naima Faith MD Site Drawn Right Radial Artery Normal [facility] Comment on above: Performed By: #### A BG #### [facility] [address] [place] [address] Lens Molding Equipment Operator: Naima Faith MD Text for Respiratory Called to RN on 02/20/2025 at 05:34 Normal [facility] Comment on above: Performed By: #### A BG #### [facility] [address] [place] [address] Lens Molding Equipment Operator: Naima Faith MD Blood Gas, Arterialon 2024 Arterial patency Wrist artery --pre arterial puncture YES [facility] Body site Right Radial Artery [facility] HCO3 (Bld) [Moles/Vol] 36.3 mmol/L High 22 - 26 mmol/L [facility] Interpretation and review of laboratory results Abnormal [facility] Oxygen gas flow Oxygen delivery system ROOM AIR [facility] Oxygen saturation in Blood 96.2 % 95 - 98 % [facility] Oxygen/Inspired gas Respiratory system --on ventilator 28 [facility] pCO2, Art, Temp Adj 64.6 Critically high 35.0 - 45.0 [facility] pCO2, Arterial 64.6 Critically high [facility] pH, Art, Temp Adj 7.368 7.350 - 7.450 [facility] pH, Arterial 7.368 7.35 - 7.45 [facility] pO2, Art, Temp Adj 88 [facility] pO2, Arterial 88 [facility] Positive Base Excess, Art 8.4 mmol/L High 0.0 - 2.0 mmol/L [facility] Text for Respiratory Called to RN on 02/20/2025 at 05:34 [facility] Arterial Blood Gaseson 02-19 Ethan Test YES [facility] Comment on above: Performed By: #### C DP, CP, TROPI, BNP #### [facility] [address] [place] [address] Lens Molding Equipment Operator: Naima Faith MD Body Temp. 37.0 [facility] Comment on above: Performed By: #### C DP, CP, TROPI, BNP #### [facility] [address] [place], [place] [id number] Lens Molding Equipment Operator: Naima Faith MD FIO2 28 [facility] Comment on above: Performed By: #### C DP, CP, TROPI, BNP #### [facility] [address] [place], [place] [phone] Lens Molding Equipment Operator: Naima Faith MD HCO3 (Bld) [Moles/Vol] 38.9 mmol/L High 22-26 [facility] Comment on above: Performed By: #### C DP, CP, TROPI, BNP #### [facility] [address] [place] [address] Lens Molding Equipment Operator: Naima Faith MD O2 Device/Flow/% Cannula [facility] Comment on above: Performed By: #### C DP, CP, TROPI, BNP #### [facility] [address] [place], [place] [id number] Lens Molding Equipment Operator: Naima Faith MD Oxygen (Bld) [Partial pressure] 69.9 mm[Hg] Low 80.0-100.0 [facility] Comment on above: Performed By: #### C DP, CP, TROPI, BNP #### [facility] [address] [place] [address] Lens Molding Equipment Operator: Naima Faith MD Oxygen saturation in Blood 91.8 % Low 95-98 [facility] Comment on above: Performed By: #### C DP, CP, TROPI, BNP #### [facility] [address] [place], [place] [id number] Lens Molding Equipment Operator: Naima Faith MD pCO2 77.6 mmHg Critically high 35-45 [facility] Comment on above: Performed By: #### C DP, CP, TROPI, BNP #### [address] [place], [place] [address] Lens Molding Equipment Operator: Naima Faith MD pCO2 Adj'd for Temp 77.6 Critically high 35.0-45.0 [facility] Comment on above: Performed By: #### C DP, CP, TROPI, BNP #### [address] [place], [facility]83 Lens Molding Equipment Operator: Naima Faith MD pH (Bld) 7.318 [pH] Low 7.35-7.45 [facility] Comment on above: Performed By: #### C DP, CP, TROPI, BNP #### [address] [place], [place] [id number] Lens Molding Equipment Operator: Naima Faith MD pH Adjst'd for Temp. 7.318 Low 7.350-7.450 [facility] Comment on above: Performed By: #### C DP, CP, TROPI, BNP #### [address] [place], [place] [phone] Lens Molding Equipment Operator: Naima Faith MD pO2 Adjst'd for Temp 69.9 mmHg Low 80.0-100.0 [facility] Comment on above: Performed By: #### C DP, CP, TROPI, BNP #### [address] [place], [place] [id number] Lens Molding Equipment Operator: Naima Faith MD Positive Base Excess 9.3 mmol/L High 0.0-2.0 [facility] Comment on above: Performed By: #### C DP, CP, TROPI, BNP #### [address] [place] [address] Lens Molding Equipment Operator: Naima Faith MD Site Drawn Right Radial Artery Normal [facility] Comment on above: Performed By: #### C DP, CP, TROPI, BNP #### [facility] [address] [place] [address] Lens Molding Equipment Operator: Naima Faith MD Text for Respiratory Called to PROVIDER on 11/22/2024 at 06:42 Normal [facility] Comment on above: Performed By: #### C DP, CP, TROPI, BNP #### [facility] [address] [place] [address] Lens Molding Equipment Operator: Naima Faith MD Basic Metab w/rfx MGon 02-19 Anion gap [Moles/Vol] 5 mmol/L Low 9-16 [facility] Comment on above: Performed By: #### C DP, CP, TROPI, BNP #### [address] [place] [address] Lens Molding Equipment Operator: Naima Faith MD BUN/CRE Ratio 30 High 9-20 [facility] Comment on above: Performed By: #### C DP, CP, TROPI, BNP #### [facility] [address] [place] [address] Dr[address] [place], [place] [phone] Lens Molding Equipment Operator: Naima Faith MD Calcium [Mass/Vol] 8.6 mg/dL Normal 8.6-10.4 [facility] Comment on above: Performed By: #### C DP, CP, TROPI, BNP #### [address] [place] [address] Lens Molding Equipment Operator: Naima Faith MD Chloride [Moles/Vol] 100 mmol/L Normal 98-107 [facility] Comment on above: Performed By: #### C DP, CP, TROPI, BNP #### [facility] [address] [place] [address] [place] [address] Lens Molding Equipment Operator: Naima Faith MD CO2 [Moles/Vol] 36 mmol/L High 20-31 [facility] Comment on above: Performed By: #### C DP, CP, TROPI, BNP #### [facility] [address] [place] [address] Dr[place], [place] [id number] Lens Molding Equipment Operator: Naima Faith MD Creatinine [Mass/Vol] 0.5 mg/dL Low 0.70-1.20 [facility] Comment on above: Performed By: #### C DP, CP, TROPI, BNP #### [facility] [address] [place] [id number] Lens Molding Equipment Operator: Naima Faith MD GFR/1.73 sq M.predicted among non-blacks MDRD (S/P/Bld) [Vol rate/Area] mL/min/{1.73_m2} Normal >60 [facility] Comment on above: Result Comment: These results [...] #### C DP, CP, TROPI, BNP #### [facility] [address] [place] [address] Lens Molding Equipment Operator: Naima Faith MD Glucose [Mass/Vol] 121 mg/dL High 74-99 [facility] Comment on above: Performed By: #### C DP, CP, TROPI, BNP #### [facility] [address] [place], [facility] Lens Molding Equipment Operator: Naima Faith MD Potassium [Moles/Vol] 4.1 mmol/L Normal 3.7-5.3 [facility] Comment on above: Performed By: #### C DP, CP, TROPI, BNP #### [facility] [address] [place] [address] Lens Molding Equipment Operator: Naima Faith MD Sodium [Moles/Vol] 141 mmol/L Normal 136-145 [facility] Comment on above: Performed By: #### C DP, CP, TROPI, BNP #### [facility] [address] [place] [address] Lens Molding Equipment Operator: Naima Faith MD Urea nitrogen [Mass/Vol] 15 mg/dL Normal 8-23 [facility] Comment on above: Performed By: #### C CARLOS, RYAN, TROPI, BNP #### [facility] [address] [place] [address] Lens Molding Equipment Operator: Naima Faiht MD Basic Metabolic Panel w/ Ref kwabena to MGon 2025 Anion gap [Moles/Vol] 5 mmol/L Low 9 - 16 mmol/L [facility] Calcium [Mass/Vol] 8.6 mg/dL 8.6 - 10. 4 mg/dL [facility] Chloride [Moles/Vol] 100 mmol/L 98 - 10 7 mmol/L [facility] CO2 [Moles/Vol] 36 mmol/L High 20 - 31 mmol/L [facility] Creatinine [Mass/Vol] 0.5 mg/dL Low 0.70 - 1.20 mg/dL [facility] Est, Glom Filt Rate - PINF [facility] Glucose [Mass/Vol] 121 mg/dL High 74 - 99 mg/dL [facility] Interpretation and review of laboratory results Abnormal [facility] Potassium [Moles/Vol] 4.1 mmol/L 3.7 - 5.3 mmol/L [facility] Sodium [Moles/Vol] 141 mmol/L 136 - 145 mmol/L [facility] Urea nitrogen [Mass/Vol] 15 mg/dL 8 - 23 mg/dL [facility] Urea nitrogen/Creatinine [Mass ratio] 30 mg/mg High 9 - 20 [facility] Blood Gas, Arterialon 2024 Arterial patency Wrist artery --pre arterial puncture YES [facility] Body site Right Radial Artery [facility] HCO3 (Bld) [Moles/Vol] 38.9 mmol/L High 22 - 26 mmol/L [facility] Interpretation and review of laboratory results Abnormal [facility] Oxygen gas flow Oxygen delivery system Cannula [facility] Oxygen saturation in Blood 91.8 % Low 95 - 98 % [facility] Oxygen/Inspired gas Respiratory system --on ventilator 28 [facility] pCO2, Art, Temp Adj 77.6 Critically high 35.0 - 45.0 [facility] pCO2, Arterial 77.6 Critically high [facility] pH, Art, Temp Adj 7.318 Low 7.350 - 7.450 [facility] pH, Arterial 7.318 Low 7.35 - 7.45 [facility] pO2, Art, Temp Adj 69.9 Low [facility] pO2, Arterial 69.9 Low [facility] Positive Base Excess, Art 9.3 mmol/L High 0.0 - 2.0 mmol/L [facility] Text for Respiratory Called to PROVIDER on 11/22/2024 at 06:42 [facility] CBC with Auto Differentialon 2025 Basophils (Bld) [#/Vol] 0.07 10*3/uL [facility] Basophils/100 WBC (Bld) 1 % 0 - 2 % [facility] Eosinophils (Bld) [#/Vol] 0.14 10*3/uL [facility] Eosinophils/100 WBC (Bld) 2 % 1 - 4 % [facility] Erythrocyte distribution width (RBC) [Ratio] 19 % High 11.8 - 14.4 % [facility] Hematocrit (Bld) [Volume fraction] 43.5 % 40.7 - 50.3 % [facility] Hemoglobin (Bld) [Mass/Vol] 12.1 g/dL Low 13.0 - 17.0 g/dL [facility] Immature granulocytes (Bld) [#/Vol] 0.07 10*3/uL [facility] Immature granulocytes/100 WBC (Bld) 1 % High 0 [facility] Interpretation and review of laboratory results Abnormal [facility] Lymphocytes/100 WBC (Bld) 19 % Low 24 - 43 % [facility] Lymphocytes/100 WBC (Bld) 1.33 % [facility] MCH (RBC) [Entitic mass] 25 pg Low 25.2 - 33.5 pg [facility] MCHC (RBC) [Mass/Vol] 27.8 g/dL Low 28.4 - 34.8 g/dL [facility] MCV (RBC) [Entitic vol] 89.9 fL 82.6 - 102.9 fL [facility] Monocytes/100 WBC (Bld) 8 % 3 - 12 % [facility] Monocytes/100 WBC (Bld) 0.56 % [facility] Morphology Gustavo (Bld) [Interp] Platelet scan shows Normal Platelets [facility] Morphology Gustavo (Bld) [Interp] POIKILOCYTOSIS PRESENT [facility] Neutrophils/100 WBC (Bld) 69 % High 36 - 65 % [facility] Nucleated RBC/100 WBC (Bld) [Ratio] 0 % 0.0 per 100 WBC [facility] Platelet mean volume (Bld) [Entitic vol] 10.3 fL 8.1 - 13.5 fL [facility] Platelets (Bld) [#/Vol] 154 10*3/uL [facility] RBC (Bld) [#/Vol] 4.84 10*6/uL 4.21 - 5.7 7 m/uL [facility] Segmented neutrophils/100 WBC (Bld) 4.83 % [facility] WBC other (Bld) [#/Vol] 7 [facility] CBC with Diffon 2025 Abs. Basophil 0.07 k/uL Normal 0.00-0.20 [facility] Comment on above: Performed By: #### C DP, CP, TROPI, BNP #### [facility] [address] [place] [address] [employer] Operator: Naima Faith MD Abs.Imm.Granulocyte 0.07 k/uL Normal 0.00-0.30 [facility] Comment on above: Performed By: #### C DP, CP, TROPI, BNP #### [facility] [place] [address] [employer] Operator: Naima Faith MD Abs.Neutrophil (Seg) 4.83 k/uL Normal 1.50-8.10 [facility] Comment on above: Performed By: #### C DP, CP, TROPI, BNP #### [address] [place] [id number] [employer] Operator: Naima Faith MD Basophils/100 WBC (Bld) 1 % Normal 0-2 [facility] Comment on above: Performed By: #### C DP, CP, TROPI, BNP #### [address] [place] [address] [employer] Operator: Naima Faith MD Eosinophils (Bld) [#/Vol] 0.14 10*3/uL Normal 0.00-0.44 [facility] Comment on above: Performed By: #### C DP, CP, TROPI, BNP #### [address] [place], [facility]83 [employer] Operator: Naima Faith MD Eosinophils/100 WBC (Bld) 2 % Normal 1-4 [facility] Comment on above: Performed By: #### C DP, CP, TROPI, BNP #### [address] [place] [id number] [employer] Operator: Naima Faith MD Immature granulocytes/100 WBC (Bld) 1 % High 0 [facility] Comment on above: Performed By: #### C DP, CP, TROPI, BNP #### [address] [place] [id number] [employer] Operator: Naima Faith MD Lymphocytes (Bld) [#/Vol] 1.33 10*3/uL Normal 1.10-3.70 [facility] Comment on above: Performed By: #### C DP, CP, TROPI, BNP #### [address] [place], [facility]83 [employer] Operator: Naima Faith MD Lymphocytes/100 WBC (Bld) 19 % Low 24-43 [facility] Comment on above: Performed By: #### C DP, CP, TROPI, BNP #### [facility] [address] [place], [facility]83 [employer] Operator: Naima Faith MD Monocytes (Bld) [#/Vol] 0.56 10*3/uL Normal 0.10-1.20 [facility] Comment on above: Performed By: #### C DP, CP, TROPI, BNP #### [address] [place] [address] [employer] Operator: Naima Faith MD Monocytes/100 WBC (Bld) 8 % Normal 3-12 [facility] Comment on above: Performed By: #### C DP, CP, TROPI, BNP #### [address] [place], [place] [address] [employer] Operator: Naima Faith MD Morphology Gustavo (Bld) [Interp] Platelet scan shows Normal Platelets Normal [facility] Comment on above: Result Comment: POIK ILOCYTOSIS PRESENT Performed By: #### C DP, CP, TROPI, BNP #### [address] [place] [address] [employer] Operator: Naima Faith MD Neutrophil (Seg) 69 % High 36-65 [facility] Comment on above: Performed By: #### C DP, CP, TROPI, BNP #### [address] [place], [facility]83 [employer] Operator: aNima Faith MD Erythrocyte distribution width (RBC) [Ratio] 19.0 % High 11.8-14.4 [facility] Comment on above: Performed By: #### C DP, CP, TROPI, BNP #### [address] [place] [address] [employer] Operator: Naima Faith MD Hematocrit (Bld) [Volume fraction] 43.5 % Normal 40.7-50.3 [facility] Comment on above: Performed By: #### C DP, CP, TROPI, BNP #### [address] [place] [id number] [employer] Operator: Naima Faith MD Hemoglobin (Bld) [Mass/Vol] 12.1 g/dL Low 13.0-17.0 [facility] Comment on above: Performed By: #### C DP, CP, TROPI, BNP #### [address] [place] [address] [employer] Equipment Operator: Naima Faith MD MCH (RBC) [Entitic mass] 25.0 pg Low 25.2-33.5 [facility] Comment on above: Performed By: #### C DP, CP, TROPI, BNP #### [address] [place] [id number] [employer] Operator: Naima Faith MD MCHC (RBC) [Mass/Vol] 27.8 g/dL Low 28.4-34.8 [facility] Comment on above: Performed By: #### C DP, CP, TROPI, BNP #### [address] [place] [address] [employer] M[employer] Equipment Operator: Naima Faith MD MCV (RBC) [Entitic vol] 89.9 fL Normal 82.6-102.9 [facility] Comment on above: Performed By: #### C DP, CP, TROPI, BNP #### [address] [place] [id number] [employer] Operator: Naima Faith MD NRBC Automated 0.0 per 100 WBC Normal 0.0 [facility] Comment on above: Performed By: #### C DP, CP, TROPI, BNP #### [address] [place], [facility]83 [employer] Operator: Naima Faith MD Platelet mean volume (Bld) [Entitic vol] 10.3 fL Normal 8.1-13.5 [facility] Comment on above: Performed By: #### C DP, CP, TROPI, BNP #### [address] [place], [facility]83 [employer] Equipment Operator: Naima Faith MD Platelets (Bld) [#/Vol] 154 10*3/uL Normal 138-453 [facility] Comment on above: Performed By: #### C DP, CP, TROPI, BNP #### [address] [place], [facility]83 [employer] Operator: Naima Faith MD RBC (Bld) [#/Vol] 4.84 10*6/uL Normal 4.21-5.77 [facility] Comment on above: Performed By: #### C DP, CP, TROPI, BNP #### [address] [place], [place] [address] [employer] Operator: Naima Faith MD WBC (Bld) [#/Vol] 7.0 10*3/uL Normal 3.5-11.3 [facility] Comment on above: Performed By: #### C DP, CP, TROPI, BNP #### [address] [place], [place] [address] [employer] Equipment Operator: Naima Faith MD Arterial Blood Gaseson 02-18 Ethan Test YES Normal [facility] Comment on above: Performed By: #### C DP, CP, TROPI, BNP #### [address] [place], [facility]83 [employer] Equipment Operator: Naima Faith MD Body Temp. 37.0 Normal [facility] Comment on above: Performed By: #### C DP, CP, TROPI, BNP #### [address] [place], [place] [id number] [employer] Equipment Operator: Naima Faith MD FIO2 28 Normal [facility] Comment on above: Performed By: #### C DP, CP, TROPI, BNP #### [facility] [address] [place], [place] [phone] [employer] Operator: Naima Faith MD HCO3 (Bld) [Moles/Vol] 39.1 mmol/L High 22-26 [facility] Comment on above: Performed By: #### C DP, CP, TROPI, BNP #### [facility] [address] [place], [place] [phone] [employer] Operator: Naima Faith MD O2 Device/Flow/% BIPAP Normal [facility] Comment on above: Performed By: #### C DP, CP, TROPI, BNP #### [address] [place], [place] [phone] [employer] Operator: Naima Faith MD Oxygen (Bld) [Partial pressure] 93.7 mm[Hg] Normal 80.0-100.0 [facility] Comment on above: Performed By: #### C DP, CP, TROPI, BNP #### [facility] [address] [place], [place] [phone] [employer] Operator: Naima Faith MD Oxygen saturation in Blood 96.5 % Normal 95-98 [facility] Comment on above: Performed By: #### C DP, CP, TROPI, BNP #### [facility] [address] [place], [place] [phone] [employer] Equipment Operator: Naima Faith MD pCO2 72.7 mmHg Critically high 35-45 [facility] Comment on above: Performed By: #### C DP, CP, TROPI, BNP #### [facility] [address] [place], [place] [phone] [employer] Equipment Operator: Naima Faith MD pCO2 Adj'd for Temp 72.7 Critically high 35.0-45.0 [facility] Comment on above: Performed By: #### C DP, CP, TROPI, BNP #### [address] [place] [address] [employer] Equipment Operator: Naima Faith MD pH (Bld) 7.348 [pH] Low 7.35-7.45 [facility] Comment on above: Performed By: #### C DP, CP, TROPI, BNP #### [address] [place], [place] [phone] [employer] Operator: Naima Faith MD pH Adjst'd for Temp. 7.348 Low 7.350-7.450 [facility] Comment on above: Performed By: #### C DP, CP, TROPI, BNP #### [address] [place], [facility]83 [employer] Equipment Operator: Naima Faith MD pO2 Adjst'd for Temp 93.7 mmHg Normal 80.0-100.0 [facility] Comment on above: Performed By: #### C DP, CP, TROPI, BNP #### [address] [place], [place] [phone] [employer] Equipment Operator: Naima Faith MD Positive Base Excess 10.1 mmol/L High 0.0-2.0 [facility] Comment on above: Performed By: #### C DP, CP, TROPI, BNP #### [address] [place] [address] L[employer] M[employer] Equipment Operator: Naima Faith MD Site Drawn Right Radial Artery [facility] Comment on above: Performed By: #### C DP, CP, TROPI, BNP #### [address] [place] [address] [employer] M[employer] Equipment Operator: Naima Faith MD Text for Respiratory Called to RN on 02/18/2025 at 05:49 [facility] Comment on above: Performed By: #### C DP, CP, TROPI, BNP #### [facility] [address] [place] [address] [employer] M[employer] Equipment Operator: Naima Faith MD Blood Gas, Arterialon 2024 Arterial patency Wrist artery --pre arterial puncture YES [facility] Body site Right Radial Artery [facility] HCO3 (Bld) [Moles/Vol] 39.1 mmol/L High 22 - 26 mmol/L [facility] Interpretation and review of laboratory results Abnormal [facility] Oxygen gas flow Oxygen delivery system BIPAP [facility] Oxygen saturation in Blood 96.5 % 95 - 98 % [facility] Oxygen/Inspired gas Respiratory system --on ventilator 28 [facility] pCO2, Art, Temp Adj 72.7 Critically high 35.0 - 45.0 [facility] pCO2, Arterial 72.7 Critically high [facility] pH, Art, Temp Adj 7.348 Low 7.350 - 7.450 [facility] pH, Arterial 7.348 Low 7.35 - 7.45 [facility] pO2, Art, Temp Adj 93.7 [facility] pO2, Arterial 93.7 [facility] Positive Base Excess, Art 10.1 mmol/L High 0.0 - 2.0 mmol/L [facility] Text for Respiratory Called to RN on 02/18/2025 at 05:49 [facility] Arterial Blood Gaseson 02-17 Ethan Test YES Normal [facility] Comment on above: Performed By: #### C DP, CP, TROPI, BNP #### [facility] [address] [place] [address] [employer] M[employer] Equipment Operator: Naima Faith MD Body Temp. 37.0 [facility] Comment on above: Performed By: #### C DP, CP, TROPI, BNP #### [facility] [address] [place] [address] [employer] M[employer] Equipment Operator: Naima Faith MD FIO2 28 Normal [facility] Comment on above: Performed By: #### C DP, CP, TROPI, BNP #### [facility] [address] [place], [place] [phone] [employer] Equipment Operator: Naima Faith MD HCO3 (Bld) [Moles/Vol] 27.3 mmol/L High 22-26 [facility] Comment on above: Performed By: #### C DP, CP, TROPI, BNP #### [facility] [address] [place], [place] [phone] [employer] Equipment Operator: Naima Faith MD O2 Device/Flow/% BIPAP [facility] Comment on above: Performed By: #### C DP, CP, TROPI, BNP #### [address] [place], [place] [phone] [employer] Equipment Operator: Naima Faith MD Oxygen (Bld) [Partial pressure] 86.4 mm[Hg] Normal 80.0-100.0 [facility] Comment on above: Performed By: #### C DP, CP, TROPI, BNP #### [address] [place], [place] [phone] [employer] Equipment Operator: Naima Faith MD Oxygen saturation in Blood 97.6 % Normal 95-98 [facility] Comment on above: Performed By: #### C DP, CP, TROPI, BNP #### [facility] [address] [place], [place] [phone] [employer] Equipment Operator: Naima Faith MD pCO2 32.1 mmHg Low 35-45 [facility] Comment on above: Performed By: #### C DP, CP, TROPI, BNP #### [facility] [address] [place], [place] [phone] [employer] Equipment Operator: Naiam Faith MD pCO2 Adj'd for Temp 32.1 Low 35.0-45.0 [facility] Comment on above: Performed By: #### C DP, CP, TROPI, BNP #### [address] [place], [place] 1234283 [employer] Operator: Naima Faith MD pH (Bld) 7.548 [pH] High 7.35-7.45 [facility] Comment on above: Performed By: #### C DP, CP, TROPI, BNP #### [address] [place], [place] 1015883 [employer] Equipment Operator: Naima Faith MD pH Adjst'd for Temp. 7.548 Critically high 7.350-7.45 0 [facility] Comment on above: Performed By: #### C DP, CP, TROPI, BNP #### [address] [place], [facility]83 L[employer] Equipment Operator: Naima Faith MD pO2 Adjst'd for Temp 86.4 mmHg Normal 80.0-100.0 [facility] Comment on above: Performed By: #### C DP, CP, TROPI, BNP #### [address] [place], [facility]83 [employer] Equipment Operator: Naima Faith MD Positive Base Excess 5.4 mmol/L High 0.0-2.0 [facility] Comment on above: Performed By: #### C DP, CP, TROPI, BNP #### [address] [place], [facility]83 L[employer] M[employer] Equipment Operator: Naima Faith MD Site Drawn Left Radial Artery Normal [facility] Comment on above: Performed By: #### C DP, CP, TROPI, BNP #### [address] [place] [address] L[employer] M[employer] Equipment Operator: Naima Faith MD Blood Gas, Arterialon 2024 Arterial patency Wrist artery --pre arterial puncture YES [facility] Body site Left Radial Artery [facility] HCO3 (Bld) [Moles/Vol] 27.3 mmol/L High 22 - 26 mmol/L [facility] Interpretation and review of laboratory results Abnormal [facility] Oxygen gas flow Oxygen delivery system BIPAP [facility] Oxygen saturation in Blood 97.6 % 95 - 98 % [facility] Oxygen/Inspired gas Respiratory system --on ventilator 28 [facility] pCO2, Art, Temp Adj 32.1 Low 35.0 - 45.0 [facility] pCO2, Arterial 32.1 Low [facility] pH, Art, Temp Adj 7.548 Critically high 7.350 - 7.450 [facility] pH, Arterial 7.548 High 7.35 - 7.45 [facility] pO2, Art, Temp Adj 86.4 [facility] pO2, Arterial 86.4 [facility] Positive Base Excess, Art 5.4 mmol/L High 0.0 - 2.0 mmol/L [facility] Rad - Other Radiology Report on 02-17-2025 Rad - Other Radiology Report [id number] [facility] Arterial Blood Gaseson 02-16 Ethan Test YES [facility] Comment on above: Performed By: #### C DP, CP, TROPI, BNP #### [facility] [address] [place] [address] [employer] Equipment Operator: Naima Faith MD Body Temp. 37.0 [facility] Comment on above: Performed By: #### C DP, CP, TROPI, BNP #### [facility] [address] [place] [address] [employer] Equipment Operator: Naima Faith MD FIO2 28 [facility] Comment on above: Performed By: #### C DP, CP, TROPI, BNP #### [facility] [address] [place] [address] [employer] Equipment Operator: Naima Faith MD HCO3 (Bld) [Moles/Vol] 39.5 mmol/L High 22-26 [facility] Comment on above: Performed By: #### C DP, CP, TROPI, BNP #### [facility] [address] [place] [address] [place], [place] [phone] [employer] Equipment Operator: Naima Faith MD O2 Device/Flow/% Cannula Normal [facility] Comment on above: Performed By: #### C DP, CP, TROPI, BNP #### [address] [place], [place] [phone] [employer] Equipment Operator: Naima Faith MD Oxygen (Bld) [Partial pressure] 64.9 mm[Hg] Low 80.0-100.0 [facility] Comment on above: Performed By: #### C DP, CP, TROPI, BNP #### [facility] [address] [place] [address] Dr. [place], [place] [phone] [employer] Equipment Operator: Naima Faith MD Oxygen saturation in Blood 89.6 % Low 95-98 [facility] Comment on above: Performed By: #### C DP, CP, TROPI, BNP #### [address] [place], [place] 2273783 [employer] Equipment Operator: Naima Faith MD pCO2 81.3 mmHg Critically high 35-45 [facility] Comment on above: Performed By: #### C DP, CP, TROPI, BNP #### [facility] [address] [place] [address] Dr. [place], [place] [phone] [employer] Equipment Operator: Naima Faith MD pCO2 Adj'd for Temp 81.3 Critically high 35.0-45.0 [facility] Comment on above: Performed By: #### C DP, CP, TROPI, BNP #### [address] [place], [place] [phone] [employer] Equipment Operator: Naima Faith MD pH (Bld) 7.304 [pH] Low 7.35-7.45 [facility] Comment on above: Performed By: #### C DP, CP, TROPI, BNP #### [facility] [address] [place] [address] Dr. [place], [place] [phone] [employer] Equipment Operator: Naima Faith MD pH Adjst'd for Temp. 7.304 Low 7.350-7.450 [facility] Comment on above: Performed By: #### C DP, CP, TROPI, BNP #### [facility] [address] [place] [address] Dr. [place], [place] [phone] [employer] Equipment Operator: Naima Faith MD pO2 Adjst'd for Temp 64.9 mmHg Low 80.0-100.0 [facility] Comment on above: Performed By: #### C DP, CP, TROPI, BNP #### [address] [place], [facility]83 [employer] Equipment Operator: Naima Faith MD Positive Base Excess 9.4 mmol/L High 0.0-2.0 [facility] Comment on above: Performed By: #### C DP, CP, TROPI, BNP #### [address] [place], [facility]83 L[employer] Equipment Operator: Naima Faith MD Site Drawn Right Radial Artery [facility] Comment on above: Performed By: #### C DP, CP, TROPI, BNP #### [address] [place], [facility]83 [employer] Equipment Operator: Naima Faith MD Text for Respiratory Called to RN on 02/16/2025 at 06:18 [facility] Comment on above: Performed By: #### C DP, CP, TROPI, BNP #### [address] [place] [address] [employer] Equipment Operator: Naima Faith MD Blood Gas, Arterialon 2024 Arterial patency Wrist artery --pre arterial puncture YES [facility] Body site Right Radial Artery [facility] HCO3 (Bld) [Moles/Vol] 39.5 mmol/L High 22 - 26 mmol/L [facility] Interpretation and review of laboratory results Abnormal [facility] Oxygen gas flow Oxygen delivery system Cannula [facility] Oxygen saturation in Blood 89.6 % Low 95 - 98 % [facility] Oxygen/Inspired gas Respiratory system --on ventilator 28 [facility] pCO2, Art, Temp Adj 81.3 Critically high 35.0 - 45.0 [facility] pCO2, Arterial 81.3 Critically high [facility] pH, Art, Temp Adj 7.304 Low 7.350 - 7.450 [facility] pH, Arterial 7.304 Low 7.35 - 7.45 [facility] pO2, Art, Temp Adj 64.9 Low [facility] pO2, Arterial 64.9 Low [facility] Positive Base Excess, Art 9.4 mmol/L High 0.0 - 2.0 mmol/L [facility] Text for Respiratory Called to RN on 02/16/2025 at 06:18 [facility] PFT Reporton 02-16-2025 [facility] XR CHEST (2 VW)on 02-16-2025 XR CHEST [...] Naima Valenzuela MD 02/16/25 Final result Normal [facility] XR Chest 2 Viewson MHPN RIS CONSOLIDATED MHPN RIS CONSOLIDATED [facility] Radiology Study observation (narrative) [facility] XR Chest 2 ViewsOrdered By: Naima Valenzuela on 02-16-2025 Jean Paul Elie [facility] Work Phone: Arterial Blood Gaseson 02-15 Ethan Test YES Normal [facility] Comment on above: Performed By: #### A BG #### [facility] [address] [place], [place] [phone] [employer] Equipment Operator: Naima Faith MD Body Temp. 37.0 [facility] Comment on above: Performed By: #### A BG #### [facility] [address] [place] [phone] [employer] Operator: Naima Faith MD Carboxy Hgb 1.9 % Normal 0.0-5.0 [facility] Comment on above: Performed By: #### A BG #### [facility] [address] [place] [phone] [employer] Equipment Operator: Naima Faith MD FIO2 28 Normal [facility] Comment on above: Performed By: #### A BG #### [facility] [address] [place] [address] [employer] Operator: Naima Faith MD HCO3 (Bld) [Moles/Vol] 40.2 mmol/L High 22-26 [facility] Comment on above: Performed By: #### A BG #### [facility] [address] [place] [address] [employer] Equipment Operator: Naima Faith MD Methemoglobin 0.3 % Normal 0.0-1.9 [facility] Comment on above: Performed By: #### A BG #### [facility] [address] [place] [address] [employer] M[employer] Equipment Operator: Naima Faith MD O2 Device/Flow/% Cannula Normal [facility] Comment on above: Performed By: #### A BG #### [facility] [address] [place] [address] [employer] M[employer] Equipment Operator: Naima Faith MD Oxygen (Bld) [Partial pressure] 66.0 mm[Hg] Low 80.0-100.0 [facility] Comment on above: Performed By: #### A BG #### [facility] [address] [place] [address] Dr. [place], [place] [phone] [employer] Equipment Operator: Naima Faith MD Oxygen saturation in Blood 91.2 % Low 95-98 [facility] Comment on above: Performed By: #### A BG #### [address] [place], [place] [phone] [employer] Equipment Operator: Naima Faith MD Oxyhemoglobin 89.2 % Low 95.0-98.0 [facility] Comment on above: Performed By: #### A BG #### [address] [place] [facility]83 L[employer] M[employer] Equipment Operator: Naima Faith MD pCO2 85.6 mmHg Critically high 35-45 [facility] Comment on above: Performed By: #### A BG #### [address] [place], [facility]83 L[employer] M[employer] Equipment Operator: Naima Faith MD pCO2 Adj'd for Temp 85.6 Critically high 35.0-45.0 [facility] Comment on above: Performed By: #### A BG #### [address] [place], [place] [phone] [employer] Operator: Naima Faith MD pH (Bld) 7.290 [pH] Low 7.35-7.45 [facility] Comment on above: Performed By: #### A BG #### [address] [place] [address] [employer] Operator: Naima Faith MD pH Adjst'd for Temp. 7.290 Critically low 7.350-7.450 [facility] Comment on above: Performed By: #### A BG #### [facility] [address] [place] [address] [employer] Equipment Operator: Naima Faith MD pO2 Adjst'd for Temp 66.0 mmHg Low 80.0-100.0 [facility] Comment on above: Performed By: #### A BG #### [facility] [address] [place] [address] [place] [address] [employer] Operator: Naima Faith MD Positive Base Excess 10.1 mmol/L High 0.0-2.0 [facility] Comment on above: Performed By: #### A BG #### [address] [place] [address] [employer] Equipment Operator: Naima Faith MD Site Drawn Right Brachial Artery Normal [facility] Comment on above: Performed By: #### A BG #### [address] [place] [address] L[employer] M[employer] Equipment Operator: Naima Faith MD Text for Respiratory Called to RN on 02/15/2025 at 06:35 Normal [facility] Comment on above: Performed By: #### A BG #### [address] [place] [address] [employer] Operator: Naima Faith MD Total Hb 13.6 g/dl Normal 12.0-16.0 [facility] Comment on above: Performed By: #### A BG #### [facility] [address] [place] [address] [place] [address] [employer] M[employer] Equipment Operator: Naima Faith MD Basic Metab w/rfx MGon 02-15 Anion gap [Moles/Vol] 9 mmol/L Normal 9-16 [facility] Comment on above: Performed By: #### C DP, CP, TROPI, BNP #### [address] [place] [address] [employer] Equipment Operator: Naima Faith MD BUN/CRE Ratio 32 High 9-20 [facility] Comment on above: Performed By: #### C DP, CP, TROPI, BNP #### [facility] [address] [place] [address] [employer] Equipment Operator: Naima Faith MD Calcium [Mass/Vol] 8.7 mg/dL Normal 8.6-10.4 [facility] Comment on above: Performed By: #### C DP, CP, TROPI, BNP #### [facility] [address] [place] [address] [employer] Operator: Naima Faith MD Chloride [Moles/Vol] 96 mmol/L Low 98-107 [facility] Comment on above: Performed By: #### C DP, CP, TROPI, BNP #### [facility] [address] [place] [address] [place] [address] [employer] Operator: Naima Faith MD CO2 [Moles/Vol] 36 mmol/L High 20-31 [facility] Comment on above: Performed By: #### C DP, CP, TROPI, BNP #### [facility] [address] [place] [address] [place] [address] [employer] Operator: Naima Faith MD Creatinine [Mass/Vol] 0.5 mg/dL Low 0.70-1.20 [facility] Comment on above: Performed By: #### C DP, CP, TROPI, BNP #### [facility] [address] [place] [address] [employer] Operator: Naima Faith MD GFR/1.73 sq M.predicted among non-blacks MDRD (S/P/Bld) [Vol rate/Area] mL/min/{1.73_m2} Normal >60 [facility] Comment on above: Result Comment: These results [...] #### C DP, CP, TROPI, BNP #### [address] [place], [place] [id number] [employer] Operator: Naima Faith MD Glucose [Mass/Vol] 122 mg/dL High 74-99 [facility] Comment on above: Performed By: #### C DP, CP, TROPI, BNP #### [facility] [address] [place], [place] [id number] [employer] Operator: Naima Faith MD Potassium [Moles/Vol] 4.0 mmol/L Normal 3.7-5.3 [facility] Comment on above: Performed By: #### C DP, CP, TROPI, BNP #### [address] [place], [place] [id number] [employer] Operator: Naima Faith MD Sodium [Moles/Vol] 141 mmol/L Normal 136-145 [facility] Comment on above: Performed By: #### C DP, CP, TROPI, BNP #### [address] [place], [place] [id number] [employer] Operator: Naima Faith MD Urea nitrogen [Mass/Vol] 16 mg/dL Normal 8-23 [facility] Comment on above: Performed By: #### C DP, CP, TROPI, BNP #### [address] [place], [place] [phone] [employer] Operator: Naima Faith MD Basic Metabolic Panel w/ Ref kwabena to MGon 02-15-2025 Anion gap [Moles/Vol] 9 mmol/L 9 - 16 mmol/L [facility] Calcium [Mass/Vol] 8.7 mg/dL 8.6 - 10. 4 mg/dL [facility] Chloride [Moles/Vol] 96 mmol/L Low 98 - 10 7 mmol/L [facility] CO2 [Moles/Vol] 36 mmol/L High 20 - 31 mmol/L [facility] Creatinine [Mass/Vol] 0.5 mg/dL Low 0.70 - 1.20 mg/dL [facility] Est, Glom Filt Rate - PINF [facility] Glucose [Mass/Vol] 122 mg/dL High 74 - 99 mg/dL [facility] Interpretation and review of laboratory results Abnormal [facility] Potassium [Moles/Vol] 4 mmol/L 3.7 - 5.3 mmol/L [facility] Sodium [Moles/Vol] 141 mmol/L 136 - 145 mmol/L [facility] Urea nitrogen [Mass/Vol] 16 mg/dL 8 - 23 mg/dL [facility] Urea nitrogen/Creatinine [Mass ratio] 32 mg/mg High 9 - 20 [facility] Blood Gas, Arterialon 2024 Arterial patency Wrist artery --pre arterial puncture YES [facility] Body site Right Brachial Artery [facility] Carboxyhemoglobin (Bld) [Mass fraction] 1.9 % 0.0 - 5.0 % [facility] HCO3 (Bld) [Moles/Vol] 40.2 mmol/L High 22 - 26 mmol/L [facility] Hemoglobin (Bld) [Mass/Vol] 13.6 g/dL 12.0 - 16.0 g/dl [facility] Interpretation and review of laboratory results Abnormal [facility] Methemoglobin 0.3 % 0.0 - 1.9 % [facility] Oxygen gas flow Oxygen delivery system Cannula [facility] Oxygen saturation in Blood 91.2 % Low 95 - 98 % [facility] Oxygen/Inspired gas Respiratory system --on ventilator 28 [facility] Oxyhemoglobin (Bld) [Mass fraction] 89.2 % Low 95.0 - 98.0 % [facility] pCO2, Art, Temp Adj 85.6 Critically high 35.0 - 45.0 [facility] pCO2, Arterial 85.6 Critically high [facility] pH, Art, Temp Adj 7.29 Critically low 7.350 - 7.450 [facility] pH, Arterial 7.29 Low 7.35 - 7.45 [facility] pO2, Art, Temp Adj 66 Low [facility] pO2, Arterial 66 Low [facility] Positive Base Excess, Art 10.1 mmol/L High 0.0 - 2.0 mmol/L [facility] Text for Respiratory Called to RN on 02/15/2025 at 06:35 [facility] CBC auto differentialon 050 Basophils (Bld) [#/Vol] 0 10*3/uL [facility] Basophils/100 WBC (Bld) 0 % 0 - 2 % [facility] Eosinophils (Bld) [#/Vol] 0.12 10*3/uL [facility] Eosinophils/100 WBC (Bld) 2 % 1 - 4 % [facility] Erythrocyte distribution width (RBC) [Ratio] 18.5 % High 11.8 - 14.4 % [facility] Hematocrit (Bld) [Volume fraction] 45.6 % 40.7 - 50.3 % [facility] Hemoglobin (Bld) [Mass/Vol] 12.7 g/dL Low 13.0 - 17.0 g/dL [facility] Immature granulocytes (Bld) [#/Vol] 0.06 10*3/uL [facility] Immature granulocytes/100 WBC (Bld) 1 % High 0 [facility] Interpretation and review of laboratory results Abnormal [facility] Lymphocytes/100 WBC (Bld) 22 % Low 24 - 43 % [facility] Lymphocytes/100 WBC (Bld) 1.32 % [facility] MCH (RBC) [Entitic mass] 25 pg Low 25.2 - 33.5 pg [facility] MCHC (RBC) [Mass/Vol] 27.9 g/dL Low 28.4 - 34.8 g/dL [facility] MCV (RBC) [Entitic vol] 89.9 fL 82.6 - 102.9 fL [facility] Monocytes/100 WBC (Bld) 6 % 3 - 12 % [facility] Monocytes/100 WBC (Bld) 0.36 % [facility] Morphology Gustavo (Bld) [Interp] Normal [facility] Neutrophils/100 WBC (Bld) 69 % High 36 - 65 % [facility] Nucleated RBC/100 WBC (Bld) [Ratio] 0 % 0.0 per 100 WBC [facility] Platelet mean volume (Bld) [Entitic vol] 10.7 fL 8.1 - 13.5 fL [facility] Platelets (Bld) [#/Vol] 151 10*3/uL [facility] RBC (Bld) [#/Vol] 5.07 10*6/uL 4.21 - 5.7 7 m/uL [facility] Segmented neutrophils/100 WBC (Bld) 4.14 % [facility] WBC other (Bld) [#/Vol] 6 [facility] CBC with Diffon 02-15-2025 Abs. Basophil 0.00 k/uL Normal 0.0-0.2 [facility] Comment on above: Performed By: #### C DP, CP, TROPI, BNP #### [facility] [address] [place] [address] [address] [place] [phone] [employer] Operator: Naima Faith MD Abs.Imm.Granulocyte 0.06 k/uL Normal 0.00-0.30 [facility] Comment on above: Performed By: #### C DP, CP, TROPI, BNP #### [facility] [address] [place] [address] [place] [place], [place] [phone] [employer] Operator: Naima Faith MD Abs.Neutrophil (Seg) 4.14 k/uL Normal 1.50-8.10 [facility] Comment on above: Performed By: #### C DP, CP, TROPI, BNP #### [address] [place] [address] [employer] Operator: Naima Faith MD Basophils/100 WBC (Bld) 0 % Normal 0-2 [facility] Comment on above: Performed By: #### C DP, CP, TROPI, BNP #### [facility] [address] [place] [address] [employer] Operator: Naima Faith MD Eosinophils (Bld) [#/Vol] 0.12 10*3/uL Normal 0.00-0.44 [facility] Comment on above: Performed By: #### C DP, CP, TROPI, BNP #### [facility] [address] [place] [address] [employer] Operator: Naima Faith MD Eosinophils/100 WBC (Bld) 2 % Normal 1-4 [facility] Comment on above: Performed By: #### C DP, CP, TROPI, BNP #### [address] [place] [address] [employer] Operator: Naima Faith MD Immature granulocytes/100 WBC (Bld) 1 % High 0 [facility] Comment on above: Performed By: #### C DP, CP, TROPI, BNP #### [address] [place] [address] [employer] Equipment Operator: Naima Faith MD Lymphocytes (Bld) [#/Vol] 1.32 10*3/uL Normal 1.10-3.70 [facility] Comment on above: Performed By: #### C DP, CP, TROPI, BNP #### [facility] [address] [place], [place] [address] [employer] Operator: Naima Faith MD Lymphocytes/100 WBC (Bld) 22 % Low 24-43 [facility] Comment on above: Performed By: #### C DP, CP, TROPI, BNP #### [facility] [address] [place] [id number] [employer] Operator: Naima Faith MD Monocytes (Bld) [#/Vol] 0.36 10*3/uL Normal 0.10-1.20 [facility] Comment on above: Performed By: #### C DP, CP, TROPI, BNP #### [facility] [address] [place], [place] [phone] [employer] Operator: Naima Faith MD Monocytes/100 WBC (Bld) 6 % Normal 3-12 [facility] Comment on above: Performed By: #### C DP, CP, TROPI, BNP #### [facility] [address] [place], [place] [phone] [employer] Operator: Naima Faith MD Morphology Gustavo (Bld) [Interp] Normal Normal [facility] Comment on above: Performed By: #### C DP, CP, TROPI, BNP #### [address] [place], [facility]83 [employer] Equipment Operator: Naima Faith MD Neutrophil (Seg) 69 % High 36-65 [facility] Comment on above: Performed By: #### C DP, CP, TROPI, BNP #### [address] [place], [place] [phone] [employer] Operator: Naima Faith MD Erythrocyte distribution width (RBC) [Ratio] 18.5 % High 11.8-14.4 [facility] Comment on above: Performed By: #### C DP, CP, TROPI, BNP #### [address] [place], [facility]83 [employer] Operator: Naima Faith MD Hematocrit (Bld) [Volume fraction] 45.6 % Normal 40.7-50.3 [facility] Comment on above: Performed By: #### C DP, CP, TROPI, BNP #### [address] [place], [place] [phone] [employer] Operator: Naima Faith MD Hemoglobin (Bld) [Mass/Vol] 12.7 g/dL Low 13.0-17.0 [facility] Comment on above: Performed By: #### C DP, CP, TROPI, BNP #### [facility] [address] [place], [place] [address] [employer] Operator: Naima Faith MD MCH (RBC) [Entitic mass] 25.0 pg Low 25.2-33.5 [facility] Comment on above: Performed By: #### C DP, CP, TROPI, BNP #### [address] [place] [address] [employer] Operator: Naima Faith MD MCHC (RBC) [Mass/Vol] 27.9 g/dL Low 28.4-34.8 [facility] Comment on above: Performed By: #### C DP, CP, TROPI, BNP #### [address] [place] [address] [employer] Equipment Operator: Naima Faith MD MCV (RBC) [Entitic vol] 89.9 fL Normal 82.6-102.9 [facility] Comment on above: Performed By: #### C DP, CP, TROPI, BNP #### [address] [place] [address] [employer] Operator: Naima Faith MD NRBC Automated 0.0 per 100 WBC Normal 0.0 [facility] Comment on above: Performed By: #### C DP, CP, TROPI, BNP #### [address] [place], [place] [address] [employer] Operator: Naima Faith MD Platelet mean volume (Bld) [Entitic vol] 10.7 fL Normal 8.1-13.5 [facility] Comment on above: Performed By: #### C DP, CP, TROPI, BNP #### [address] [place], [facility]83 [employer] Operator: Naima Faith MD Platelets (Bld) [#/Vol] 151 10*3/uL Normal 138-453 [facility] Comment on above: Performed By: #### C DP, CP, TROPI, BNP #### [facility] [address] [place], [facility]83 [employer] Equipment Operator: Naima Faith MD RBC (Bld) [#/Vol] 5.07 10*6/uL Normal 4.21-5.77 [facility] Comment on above: Performed By: #### C DP, CP, TROPI, BNP #### [facility] [address] [place], [facility]83 [employer] Equipment Operator: Naima Faith MD WBC (Bld) [#/Vol] 6.0 10*3/uL Normal 3.5-11.3 [facility] Comment on above: Performed By: #### C DP, CP, TROPI, BNP #### [facility] [address] [place] [address] Dr. [place], [facility]83 [employer] Equipment Operator: Naima Faith MD Arterial Blood Gaseson 02-14 Ethan Test YES Normal [facility] Comment on above: Performed By: #### C DP, CP, TROPI, BNP #### [facility] [address] [place] [address] Dr. [place], [facility]61 ( [employer] Operator: Naima Faith MD Body Temp. 37.0 [facility] Comment on above: Performed By: #### C DP, CP, TROPI, BNP #### [facility] [address] [place], [facility]47 ( [employer] Equipment Operator: Naima Faith MD FIO2 32 Normal [facility] Comment on above: Performed By: #### C DP, CP, TROPI, BNP #### [facility] [address] [place], [facility]83 [employer] Equipment Operator: Naima Faith MD HCO3 (Bld) [Moles/Vol] 39.0 mmol/L High 22-26 [facility] Comment on above: Performed By: #### C DP, CP, TROPI, BNP #### [facility] [address] [place], [place] [phone] [employer] Equipment Operator: Naima Faith MD O2 Device/Flow/% BIPAP Normal [facility] Comment on above: Performed By: #### C DP, CP, TROPI, BNP #### [facility] [address] [place], [place] [phone] [employer] Operator: Naima Faith MD Oxygen (Bld) [Partial pressure] 129.5 mm[Hg] High 80.0-100.0 [facility] Comment on above: Performed By: #### C DP, CP, TROPI, BNP #### [address] [place], [place] [phone] [employer] Operator: Naima Faith MD Oxygen saturation in Blood 98.3 % High 95-98 [facility] Comment on above: Performed By: #### C DP, CP, TROPI, BNP #### [address] [place], [place] [phone] [employer] Equipment Operator: Naima Faith MD pCO2 74.2 mmHg Critically high 35-45 [facility] Comment on above: Performed By: #### C DP, CP, TROPI, BNP #### [address] [place], [place] [phone] [employer] Operator: Naima Faith MD pCO2 Adj'd for Temp 74.2 Critically high 35.0-45.0 [facility] Comment on above: Performed By: #### C DP, CP, TROPI, BNP #### [address] [place], [place] [phone] [employer] Operator: Naima Faith MD pH (Bld) 7.339 [pH] Low 7.35-7.45 [facility] Comment on above: Performed By: #### C DP, CP, TROPI, BNP #### [address] [place], [place] [id number] [employer] Equipment Operator: Naima Faith MD pH Adjst'd for Temp. 7.339 Low 7.350-7.450 [facility] Comment on above: Performed By: #### C DP, CP, TROPI, BNP #### [facility] [address] [place] [address] Dr. [place], [place] [phone] [employer] Equipment Operator: Naima Faith MD pO2 Adjst'd for Temp 129.5 mmHg High 80.0-100.0 [facility] Comment on above: Performed By: #### C DP, CP, TROPI, BNP #### [facility] [address] [place] [address] [address] [place], [place] 557[address] [employer] Operator: Naima Faith MD Positive Base Excess 9.8 mmol/L High 0.0-2.0 [facility] Comment on above: Performed By: #### C DP, CP, TROPI, BNP #### [facility] [address] [place] [address] [place]. [place], [place] [phone] [employer] Equipment Operator: Naima Faith MD Site Drawn Right Radial Artery Normal [facility] Comment on above: Performed By: #### C DP, CP, TROPI, BNP #### [address] [place] [address] [employer] Equipment Operator: Naima Faith MD Text for Respiratory Called to RN on 02/14/2025 at 06:07 Normal [facility] Comment on above: Performed By: #### C DP, CP, TROPI, BNP #### [facility] [address] [place] [address] [place] [address] [employer] Equipment Operator: Naima Faith MD Basic Metab w/rfx MGon 02-14 Anion gap [Moles/Vol] 6 mmol/L Low 9-16 [facility] Comment on above: Performed By: #### C DP, BMPX #### [facility] [address] [place] [address] [place] [address] [employer] Equipment Operator: Naima Faith MD BUN/CRE Ratio 32 High 9-20 [facility] Comment on above: Performed By: #### C DP, BMPX #### [facility] [address] [place] [address] [employer] M[employer] Equipment Operator: Naima Faith MD Calcium [Mass/Vol] 9.0 mg/dL Normal 8.6-10.4 [facility] Comment on above: Performed By: #### C DP, BMPX #### [facility] [address] [place] [address] [employer] M[employer] Equipment Operator: Naima Faith MD Chloride [Moles/Vol] 96 mmol/L Low 98-107 [facility] Comment on above: Performed By: #### C DP, BMPX #### [facility] [address] [place] [address] [employer] M[employer] Equipment Operator: Naima Faith MD CO2 [Moles/Vol] 38 mmol/L High 20-31 [facility] Comment on above: Performed By: #### C DP, BMPX #### [facility] [address] [place] [address] [employer] Equipment Operator: Naima Faith MD Creatinine [Mass/Vol] 0.5 mg/dL Low 0.70-1.20 [facility] Comment on above: Performed By: #### C DP, BMPX #### [facility] [address] [place] [address] [employer] Equipment Operator: Naima Faith MD GFR/1.73 sq M.predicted among non-blacks MDRD (S/P/Bld) [Vol rate/Area] mL/min/{1.73_m2} Normal >60 [facility] Comment on above: Result Comment: These results [...] Performed By: #### C DP, BMPX #### [facility] [address] [place] [address] [place] [address] [employer] Operator: Naima Faith MD Glucose [Mass/Vol] 109 mg/dL High 74-99 [facility] Comment on above: Performed By: #### C DP, BMPX #### [address] [place], [place] [phone] [employer] Operator: Naima Faith MD Potassium [Moles/Vol] 4.6 mmol/L Normal 3.7-5.3 [facility] Comment on above: Result Comment: Spec imen hemolysis has exceeded the interference as defined by Gold. Value may be falsely increased. Suggest recollection if clinically indicated. Performed By: #### C DP, BMPX #### [address] [place], [place] [phone] [employer] Operator: Naima Faith MD Sodium [Moles/Vol] 140 mmol/L Normal 136-145 [facility] Comment on above: Performed By: #### C DP, BMPX #### [address] [place] [address] [employer] Equipment Operator: Naima Faith MD Urea nitrogen [Mass/Vol] 16 mg/dL Normal 8-23 [facility] Comment on above: Performed By: #### C DP, BMPX #### [address] [place] [address] [employer] Operator: Naima Faith MD Basic Metabolic Panel w/ Ref kwabena to MGon 02-14-2025 Anion gap [Moles/Vol] 6 mmol/L Low 9 - 16 mmol/L [facility] Calcium [Mass/Vol] 9 mg/dL 8.6 - 10. 4 mg/dL [facility] Chloride [Moles/Vol] 96 mmol/L Low 98 - 10 7 mmol/L [facility] CO2 [Moles/Vol] 38 mmol/L High 20 - 31 mmol/L [facility] Creatinine [Mass/Vol] 0.5 mg/dL Low 0.70 - 1.20 mg/dL [facility] Est, Glom Filt Rate - PINF [facility] Glucose [Mass/Vol] 109 mg/dL High 74 - 99 mg/dL [facility] Interpretation and review of laboratory results Abnormal [facility] Potassium [Moles/Vol] 4.6 mmol/L 3.7 - 5.3 mmol/L [facility] Sodium [Moles/Vol] 140 mmol/L 136 - 145 mmol/L [facility] Urea nitrogen [Mass/Vol] 16 mg/dL 8 - 23 mg/dL [facility] Urea nitrogen/Creatinine [Mass ratio] 32 mg/mg High 9 - 20 [facility] Blood Gas, Arterialon 2024 Arterial patency Wrist artery --pre arterial puncture YES [facility] Body site Right Radial Artery [facility] HCO3 (Bld) [Moles/Vol] 39 mmol/L High 22 - 26 mmol/L [facility] Interpretation and review of laboratory results Abnormal [facility] Oxygen gas flow Oxygen delivery system BIPAP [facility] Oxygen/Inspired gas Respiratory system --on ventilator 32 [facility] pCO2, Art, Temp Adj 74.2 Critically high 35.0 - 45.0 [facility] pCO2, Arterial 74.2 Critically high [facility] pH, Art, Temp Adj 7.339 Low 7.350 - 7.450 [facility] pH, Arterial 7.339 Low 7.35 - 7.45 [facility] pO2, Art, Temp Adj 129.5 High [facility] pO2, Arterial 129.5 High [facility] Positive Base Excess, Art 9.8 mmol/L High 0.0 - 2.0 mmol/L [facility] CBC auto differentialon 05-0 Basophils (Bld) [#/Vol] 0 10*3/uL [facility] Basophils/100 WBC (Bld) 0 % 0 - 2 % [facility] Eosinophils (Bld) [#/Vol] 0.12 10*3/uL [facility] Eosinophils/100 WBC (Bld) 2 % 1 - 4 % [facility] Erythrocyte distribution width (RBC) [Ratio] 18.7 % High 11.8 - 14.4 % [facility] Hematocrit (Bld) [Volume fraction] 48.3 % 40.7 - 50.3 % [facility] Hemoglobin (Bld) [Mass/Vol] 13.5 g/dL 13.0 - 17.0 g/dL [facility] Immature granulocytes (Bld) [#/Vol] 0.06 10*3/uL [facility] Immature granulocytes/100 WBC (Bld) 1 % High 0 [facility] Interpretation and review of laboratory results Abnormal [facility] Lymphocytes/100 WBC (Bld) 21 % Low 24 - 43 % [facility] Lymphocytes/100 WBC (Bld) 1.24 % [facility] MCH (RBC) [Entitic mass] 24.7 pg Low 25.2 - 33.5 pg [facility] [facility] MCHC (RBC) [Mass/Vol] 28 g/dL Low 28.4 - 34.8 g/dL [facility] MCV (RBC) [Entitic vol] 88.5 fL 82.6 - 102.9 fL [facility] Monocytes/100 WBC (Bld) 7 % 3 - 12 % [facility] Monocytes/100 WBC (Bld) 0.41 % [facility] Morphology Gustavo (Bld) [Interp] Normal [facility] Neutrophils/100 WBC (Bld) 69 % High 36 - 65 % [facility] Nucleated RBC/100 WBC (Bld) [Ratio] 0 % 0.0 per 100 WBC [facility] Platelet mean volume (Bld) [Entitic vol] 10.2 fL 8.1 - 13.5 fL [facility] Platelets (Bld) [#/Vol] 135 10*3/uL Low [facility] RBC (Bld) [#/Vol] 5.46 10*6/uL 4.21 - 5.7 7 m/uL [facility] Segmented neutrophils/100 WBC (Bld) 4.07 % [facility] WBC other (Bld) [#/Vol] 5.9 [facility] CBC with Diffon 02-14-2025 Abs. Basophil 0.00 k/uL Normal 0.0-0.2 [facility] Comment on above: Performed By: #### C DP, BMPX #### [facility] [address] [place] [address] [employer] Operator: Naima Faith MD Abs.Imm.Granulocyte 0.06 k/uL Normal 0.00-0.30 [facility] Comment on above: Performed By: #### C DP, BMPX #### [address] [place], [facility]83 [employer] Operator: Naima Faith MD Abs.Neutrophil (Seg) 4.07 k/uL Normal 1.50-8.10 [facility] Comment on above: Performed By: #### C DP, BMPX #### [address] [place], [place] [id number] [employer] Operator: Naima Faith MD Basophils/100 WBC (Bld) 0 % Normal 0-2 [facility] Comment on above: Performed By: #### C DP, BMPX #### [facility] [address] [place] [address] [address] [place], [facility]83 [employer] Operator: Naima Faith MD Eosinophils (Bld) [#/Vol] 0.12 10*3/uL Normal 0.00-0.44 [facility] Comment on above: Performed By: #### C DP, BMPX #### [address] [place], [place] [id number] [employer] Operator: Naima Faith MD Eosinophils/100 WBC (Bld) 2 % Normal 1-4 [facility] Comment on above: Performed By: #### C DP, BMPX #### [facility] [address] [place], [place] [id number] [employer] Operator: Naima Faith MD Immature granulocytes/100 WBC (Bld) 1 % High 0 [facility] Comment on above: Performed By: #### C DP, BMPX #### [facility] [address] [place], [facility]83 [employer] Operator: Naima Faith MD Lymphocytes (Bld) [#/Vol] 1.24 10*3/uL Normal 1.10-3.70 [facility] Comment on above: Performed By: #### C DP, BMPX #### [facility] [address] [place] [address] [employer] Operator: Naima Faith MD Lymphocytes/100 WBC (Bld) 21 % Low 24-43 [facility] Comment on above: Performed By: #### C DP, BMPX #### [facility] [address] [place] [address] Dr[address] [place], [place] [id number] [employer] Operator: Naima Faith MD Monocytes (Bld) [#/Vol] 0.41 10*3/uL Normal 0.10-1.20 [facility] Comment on above: Performed By: #### C DP, BMPX #### [facility] [address] [place], [facility]83 [employer] Operator: Naima Faith MD Monocytes/100 WBC (Bld) 7 % Normal 3-12 [facility] Comment on above: Performed By: #### C DP, BMPX #### [facility] [address] [place] [address] [employer] Operator: Naima Faith MD Morphology Gustavo (Bld) [Interp] Normal Normal [facility] Comment on above: Performed By: #### C DP, BMPX #### [facility] [address] [place], [place] [phone] [employer] Operator: Naima Faith MD Neutrophil (Seg) 69 % High 36-65 [facility] Comment on above: Performed By: #### C DP, BMPX #### [facility] [address] [place], [place] [phone] [employer] Operator: Naima Faith MD Erythrocyte distribution width (RBC) [Ratio] 18.7 % High 11.8-14.4 [facility] Comment on above: Performed By: #### C DP, BMPX #### [facility] [address] [place], [place] [phone] [employer] Operator: Naima Faith MD Hematocrit (Bld) [Volume fraction] 48.3 % Normal 40.7-50.3 [facility] Comment on above: Performed By: #### C DP, BMPX #### [address] [place], [place] [phone] [employer] Operator: Naima Faith MD Hemoglobin (Bld) [Mass/Vol] 13.5 g/dL Normal 13.0-17.0 [facility] Comment on above: Performed By: #### C DP, BMPX #### [address] [place], [place] [phone] [employer] Operator: Naima Faith MD MCH (RBC) [Entitic mass] 24.7 pg Low 25.2-33.5 [facility] Comment on above: Performed By: #### C DP, BMPX #### [facility] [address] [place] [address] Dr. [place], [place] [phone] [employer] Operator: Naima Faith MD MCHC (RBC) [Mass/Vol] 28.0 g/dL Low 28.4-34.8 [facility] Comment on above: Performed By: #### C DP, BMPX #### [facility] [address] [place] [address] [employer] Operator: Naima Faith MD MCV (RBC) [Entitic vol] 88.5 fL Normal 82.6-102.9 [facility] Comment on above: Performed By: #### C DP, BMPX #### [address] [place], [place] [phone] [employer] Operator: Naima Faith MD NRBC Automated 0.0 per 100 WBC Normal 0.0 [facility] Comment on above: Performed By: #### C DP, BMPX #### [address] [place], [place] [phone] [employer] Operator: Naima Faith MD Platelet mean volume (Bld) [Entitic vol] 10.2 fL Normal 8.1-13.5 [facility] Comment on above: Performed By: #### C DP, BMPX #### [address] [place], [place] [phone] [employer] Operator: Naima Faith MD Platelets (Bld) [#/Vol] 135 10*3/uL Low 138-453 [facility] Comment on above: Performed By: #### C DP, BMPX #### [address] [place], [place] [phone] [employer] Operator: Naima Faith MD RBC (Bld) [#/Vol] 5.46 10*6/uL Normal 4.21-5.77 [facility] Comment on above: Performed By: #### C DP, BMPX #### [address] [place] [address] [employer] Operator: Naima Faith MD WBC (Bld) [#/Vol] 5.9 10*3/uL Normal 3.5-11.3 [facility] Comment on above: Performed By: #### C DP, BMPX #### [address] [place] [address] [employer] Operator: Naima Faith MD EKG Rhythm Stripon [facility] Jean Paul Delgadillo [facility] Arterial Blood Gaseson 02-13 Ethan Test YES [facility] Comment on above: Performed By: #### C DP, CP, TROPI, BNP #### [facility] [address] [place], [place] [phone] [employer] Operator: Naima Faith MD Body Temp. 37.0 [facility] Comment on above: Performed By: #### C DP, CP, TROPI, BNP #### [facility] [address] [place], [place] 457[address]83 [employer] Operator: Naima Faith MD FIO2 24 [facility] Comment on above: Performed By: #### C DP, CP, TROPI, BNP #### [facility] [address] [place], [place] [phone] [employer] Operator: Naima Faith MD HCO3 (Bld) [Moles/Vol] 39.5 mmol/L High 22-26 [facility] Comment on above: Performed By: #### C DP, CP, TROPI, BNP #### [facility] [address] [place], [place] [phone] [employer] Operator: Naima Faith MD O2 Device/Flow/% Cannula [facility] Comment on above: Performed By: #### C DP, CP, TROPI, BNP #### [facility] [address] [place] [address] [employer] Operator: Naima Faith MD Oxygen (Bld) [Partial pressure] 63.4 mm[Hg] Low 80.0-100.0 [facility] Comment on above: Performed By: #### C DP, CP, TROPI, BNP #### [facility] [address] [place], [place] [phone] [employer] Operator: Naima Faith MD Oxygen saturation in Blood 90.5 % Low 95-98 [facility] Comment on above: Performed By: #### C DP, CP, TROPI, BNP #### [address] [place], [place] 1793783 [employer] Operator: Naima Faith MD pCO2 71.6 mmHg Critically high 35-45 [facility] Comment on above: Performed By: #### C DP, CP, TROPI, BNP #### [address] [place] [address] [employer] Operator: Naima Faith MD pCO2 Adj'd for Temp 71.6 Critically high 35.0-45.0 [facility] Comment on above: Performed By: #### C DP, CP, TROPI, BNP #### [address] [place], [place] 6201083 [employer] Operator: Naima Faith MD pH (Bld) 7.359 [pH] Normal 7.35-7.45 [facility] Comment on above: Performed By: #### C DP, CP, TROPI, BNP #### [address] [place], [place] [phone] [employer] Operator: Naima Faith MD pH Adjst'd for Temp. 7.359 Normal 7.350-7.450 [facility] Comment on above: Performed By: #### C DP, CP, TROPI, BNP #### [address] [place], [place] 7150483 [employer] Operator: Naima Faith MD pO2 Adjst'd for Temp 63.4 mmHg Low 80.0-100.0 [facility] Comment on above: Performed By: #### C DP, CP, TROPI, BNP #### [address] [place] [address] [employer] Operator: Naima Faith MD Positive Base Excess 10.6 mmol/L High 0.0-2.0 [facility] Comment on above: Performed By: #### C DP, CP, TROPI, BNP #### [facility] [address] [place], [place] [phone] [employer] Operator: Naima Faith MD Site Drawn Right Radial Artery [facility] Comment on above: Performed By: #### C DP, CP, TROPI, BNP #### [facility] [address] [place], [place] 1019383 [employer] Operator: Naima Faith MD Text for Respiratory Called to PROVIDER on 02/13/2025 at 10:14 [facility] Comment on above: Performed By: #### C DP, CP, TROPI, BNP #### [address] [place] [address] [employer] Operator: Naima Faith MD Basic Metab w/rfx MGon 02-13 Anion gap [Moles/Vol] 7 mmol/L Low 9-16 [facility] Comment on above: Performed By: #### C DP, CP, TROPI, BNP #### [facility] [address] [place] [address] Dr[address] [place], [place] [phone] [employer] Operator: Naima Faith MD BUN/CRE Ratio 28 High 9-20 [facility] Comment on above: Performed By: #### C DP, CP, TROPI, BNP #### [address] [place] [address] [employer] Operator: Naima Faith MD Calcium [Mass/Vol] 9.1 mg/dL Normal 8.6-10.4 [facility] Comment on above: Performed By: #### C DP, CP, TROPI, BNP #### [facility] [address] [place] [address] [employer] Operator: Naima Faith MD Chloride [Moles/Vol] 96 mmol/L Low 98-107 [facility] Comment on above: Performed By: #### C DP, CP, TROPI, BNP #### [facility] [address] [place] [address] Dr[address] [place], [place] [phone] [employer] Operator: Naima Faith MD CO2 [Moles/Vol] 36 mmol/L High 20-31 [facility] Comment on above: Performed By: #### C DP, CP, TROPI, BNP #### [facility] [address] [place], [place] [phone] [employer] Operator: Naima Faith MD Creatinine [Mass/Vol] 0.5 mg/dL Low 0.70-1.20 [facility] Comment on above: Performed By: #### C DP, CP, TROPI, BNP #### [address] [place] [address] [employer] Operator: Naima Faith MD GFR/1.73 sq M.predicted among non-blacks MDRD (S/P/Bld) [Vol rate/Area] mL/min/{1.73_m2} Normal >60 [facility] Comment on above: Result Comment: These results [...] #### C DP, CP, TROPI, BNP #### [address] [place] [address] [employer] Operator: Naima Faith MD Glucose [Mass/Vol] 117 mg/dL High 74-99 [facility] Comment on above: Performed By: #### C DP, CP, TROPI, BNP #### [facility] [address] [place] [address] [employer] Operator: Naima Faith MD Potassium [Moles/Vol] 4.4 mmol/L Normal 3.7-5.3 [facility] Comment on above: Performed By: #### C DP, CP, TROPI, BNP #### [facility] [address] [place] [address] [employer] Operator: Naima Faith MD Sodium [Moles/Vol] 139 mmol/L Normal 136-145 [facility] Comment on above: Performed By: #### C DP, CP, TROPI, BNP #### [facility] [address] [place] [address] [employer] Operator: Naima Faith MD Urea nitrogen [Mass/Vol] 14 mg/dL Normal 8-23 [facility] Comment on above: Performed By: #### C DP, CP, TROPI, BNP #### [facility] [address] [place] [address] [employer] Operator: Naima Faith MD Basic Metabolic Panel w/ Ref kwabena to MGon 02-13-2025 Anion gap [Moles/Vol] 7 mmol/L Low 9 - 16 mmol/L [facility] Calcium [Mass/Vol] 9.1 mg/dL 8.6 - 10. 4 mg/dL [facility] Chloride [Moles/Vol] 96 mmol/L Low 98 - 10 7 mmol/L [facility] CO2 [Moles/Vol] 36 mmol/L High 20 - 31 mmol/L [facility] Creatinine [Mass/Vol] 0.5 mg/dL Low 0.70 - 1.20 mg/dL [facility] Est, Glom Filt Rate - PINF [facility] Glucose [Mass/Vol] 117 mg/dL High 74 - 99 mg/dL [facility] Interpretation and review of laboratory results Abnormal [facility] Potassium [Moles/Vol] 4.4 mmol/L 3.7 - 5.3 mmol/L [facility] Sodium [Moles/Vol] 139 mmol/L 136 - 145 mmol/L [facility] Urea nitrogen [Mass/Vol] 14 mg/dL 8 - 23 mg/dL [facility] Urea nitrogen/Creatinine [Mass ratio] 28 mg/mg High 9 - 20 [facility] Blood Gas, Arterialon 2024 Arterial patency Wrist artery --pre arterial puncture YES [facility] Body site Right Radial Artery [facility] HCO3 (Bld) [Moles/Vol] 39.5 mmol/L High 22 - 26 mmol/L [facility] Interpretation and review of laboratory results Abnormal [facility] Oxygen gas flow Oxygen delivery system Cannula [facility] Oxygen saturation in Blood 90.5 % Low 95 - 98 % [facility] Oxygen/Inspired gas Respiratory system --on ventilator 24 [facility] pCO2, Art, Temp Adj 71.6 Critically high 35.0 - 45.0 [facility] pCO2, Arterial 71.6 Critically high [facility] pH, Art, Temp Adj 7.359 7.350 - 7.450 [facility] pH, Arterial 7.359 7.35 - 7.45 [facility] pO2, Art, Temp Adj 63.4 Low [facility] pO2, Arterial 63.4 Low [facility] Positive Base Excess, Art 10.6 mmol/L High 0.0 - 2.0 mmol/L [facility] Text for Respiratory Called to PROVIDER on 02/13/2025 at 10:14 [facility] CBC auto differentialon Basophils (Bld) [#/Vol] 0.07 10*3/uL [facility] Basophils/100 WBC (Bld) 1 % 0 - 2 % [facility] Eosinophils (Bld) [#/Vol] 0.13 10*3/uL [facility] Eosinophils/100 WBC (Bld) 2 % 1 - 4 % [facility] Erythrocyte distribution width (RBC) [Ratio] 18.1 % High 11.8 - 14.4 % [facility] Hematocrit (Bld) [Volume fraction] 49.6 % 40.7 - 50.3 % [facility] Hemoglobin (Bld) [Mass/Vol] 14 g/dL 13.0 - 17.0 g/dL [facility] Immature granulocytes (Bld) [#/Vol] 0.07 10*3/uL [facility] Immature granulocytes/100 WBC (Bld) 1 % High 0 [facility] Interpretation and review of laboratory results Abnormal [facility] Lymphocytes/100 WBC (Bld) 28 % 24 - 43 % [facility] Lymphocytes/100 WBC (Bld) 1.85 % [facility] MCH (RBC) [Entitic mass] 25 pg Low 25.2 - 33.5 pg [facility] MCHC (RBC) [Mass/Vol] 28.2 g/dL Low 28.4 - 34.8 g/dL [facility] MCV (RBC) [Entitic vol] 88.7 fL 82.6 - 102.9 fL [facility] Monocytes/100 WBC (Bld) 7 % 3 - 12 % [facility] Monocytes/100 WBC (Bld) 0.46 % [facility] Morphology Gustavo (Bld) [Interp] HYPOCHROMIA PRESENT [facility] Neutrophils/100 WBC (Bld) 61 % 36 - 65 % [facility] Nucleated RBC/100 WBC (Bld) [Ratio] 0 % 0.0 per 100 WBC [facility] Platelet mean volume (Bld) [Entitic vol] 10.1 fL 8.1 - 13.5 fL [facility] Platelets (Bld) [#/Vol] 144 10*3/uL [facility] RBC (Bld) [#/Vol] 5.59 10*6/uL 4.21 - 5.7 7 m/uL [facility] Segmented neutrophils/100 WBC (Bld) 4.02 % [facility] WBC other (Bld) [#/Vol] 6.6 [facility] CBC with Diffon 02-13-2025 Abs. Basophil 0.07 k/uL Normal 0.0-0.2 [facility] Comment on above: Performed By: #### C DP, CP, TROPI, BNP #### [facility] [address] [place] [address] [employer] Operator: Naima Faith MD Abs.Imm.Granulocyte 0.07 k/uL Normal 0.00-0.30 [facility] Comment on above: Performed By: #### C DP, CP, TROPI, BNP #### [address] [place] [address] [employer] Operator: Naima Faith MD Abs.Neutrophil (Seg) 4.02 k/uL Normal 1.50-8.10 [facility] Comment on above: Performed By: #### C DP, CP, TROPI, BNP #### [address] [place] [address] [employer] Operator: Naima Faith MD Basophils/100 WBC (Bld) 1 % Normal 0-2 [facility] Comment on above: Performed By: #### C DP, CP, TROPI, BNP #### [address] [place], [place] [address] [employer] Operator: Naima Faith MD Eosinophils (Bld) [#/Vol] 0.13 10*3/uL Normal 0.00-0.44 [facility] Comment on above: Performed By: #### C DP, CP, TROPI, BNP #### [address] [place] [address] [employer] Operator: Naima Faith MD Eosinophils/100 WBC (Bld) 2 % Normal 1-4 [facility] Comment on above: Performed By: #### C DP, CP, TROPI, BNP #### [address] [place] [address] [employer] Operator: Naima aFith MD Immature granulocytes/100 WBC (Bld) 1 % High 0 [facility] Comment on above: Performed By: #### C DP, CP, TROPI, BNP #### [address] [place], [place] 9786983 [employer] Operator: Naima Faith MD Lymphocytes (Bld) [#/Vol] 1.85 10*3/uL Normal 1.10-3.70 [facility] Comment on above: Performed By: #### C DP, CP, TROPI, BNP #### [facility] [address] [place] [address] [employer] Operator: Naima Faith MD Lymphocytes/100 WBC (Bld) 28 % Normal 24-43 [facility] Comment on above: Performed By: #### C DP, CP, TROPI, BNP #### [facility] [address] [place] [address] [employer] Operator: Naima Faith MD Monocytes (Bld) [#/Vol] 0.46 10*3/uL Normal 0.10-1.20 [facility] Comment on above: Performed By: #### C DP, CP, TROPI, BNP #### [address] [place] [address] [employer] Operator: Naima Faith MD Monocytes/100 WBC (Bld) 7 % Normal 3-12 [facility] Comment on above: Performed By: #### C DP, CP, TROPI, BNP #### [address] [place] [address] [employer] Operator: Naima Faith MD Morphology Gustavo (Bld) [Interp] HYPOCHROMIA Normal [facility] Comment on above: Result Comment: PRES ENT Performed By: #### C DP, CP, TROPI, BNP #### [facility] [address] [place] [address] [employer] Operator: Naima Faith MD Neutrophil (Seg) 61 % Normal 36-65 [facility] Comment on above: Performed By: #### C DP, CP, TROPI, BNP #### [facility] [address] [place] [address] [employer] Operator: Naima Faith MD Erythrocyte distribution width (RBC) [Ratio] 18.1 % High 11.8-14.4 [facility] Comment on above: Performed By: #### C DP, CP, TROPI, BNP #### [address] [place] [id number] [employer] Operator: Naima Faith MD Hematocrit (Bld) [Volume fraction] 49.6 % Normal 40.7-50.3 [facility] Comment on above: Performed By: #### C DP, CP, TROPI, BNP #### [address] [place] [phone] [employer] Operator: Naima Faith MD Hemoglobin (Bld) [Mass/Vol] 14.0 g/dL Normal 13.0-17.0 [facility] Comment on above: Performed By: #### C DP, CP, TROPI, BNP #### [address] [place] [address] [employer] Operator: Naima Faith MD MCH (RBC) [Entitic mass] 25.0 pg Low 25.2-33.5 [facility] Comment on above: Performed By: #### C DP, CP, TROPI, BNP #### [address] [place] [id number] [employer] Operator: Naima Faith MD MCHC (RBC) [Mass/Vol] 28.2 g/dL Low 28.4-34.8 [facility] Comment on above: Performed By: #### C DP, CP, TROPI, BNP #### [address] [place] [phone] [employer] Operator: Naima Faith MD MCV (RBC) [Entitic vol] 88.7 fL Normal 82.6-102.9 [facility] Comment on above: Performed By: #### C DP, CP, TROPI, BNP #### [address] [place] [id number] [employer] Operator: Naima Faith MD NRBC Automated 0.0 per 100 WBC Normal 0.0 [facility] Comment on above: Performed By: #### C DP, CP, TROPI, BNP #### [facility] [address] [place] [id number] [employer] Operator: Naima Faith MD Platelet mean volume (Bld) [Entitic vol] 10.1 fL Normal 8.1-13.5 [facility] Comment on above: Performed By: #### C DP, CP, TROPI, BNP #### [address] [place] [address] [employer] Operator: Naima Faith MD Platelets (Bld) [#/Vol] 144 10*3/uL Normal 138-453 [facility] Comment on above: Performed By: #### C DP, CP, TROPI, BNP #### [address] [place], [place] [address] [employer] Operator: Naima Faith MD RBC (Bld) [#/Vol] 5.59 10*6/uL Normal 4.21-5.77 [facility] Comment on above: Performed By: #### C DP, CP, TROPI, BNP #### [address] [place], [facility]83 [employer] Operator: Naima Faith MD WBC (Bld) [#/Vol] 6.6 10*3/uL Normal 3.5-11.3 [facility] Comment on above: Performed By: #### C DP, CP, TROPI, BNP #### [address] [place], [facility]83 [employer] Equipment Operator: Naima Faith MD CT CHEST PULMONARY EMBOLISM [...] Gretchen Shaw MD 02/13/25 Final result Normal [facility] MHPN RIS CONSOLIDATED PN RIS CONSOLIDATED [facility] CT CHEST PULMONARY EMBOLISM W CONTRASTOrdered By: Gretchen Shaw on 02-13-2025 [facility] Work Phone: EKG Rhythm Stripon [facility] Rad - CT Reporton 02-13-2025 Rad - CT Report [id number] Normal [facility] Arterial Blood Gaseson 02-12 Ethan Test YES Normal [facility] Comment on above: Performed By: #### C DP, CP, TROPI, BNP #### [facility] [address] [place], [place] [id number] [employer] Operator: Naima Faith MD Body Temp. 37.0 [facility] Comment on above: Performed By: #### C DP, CP, TROPI, BNP #### [facility] [address] [place], [facility]83 [employer] Equipment Operator: Naima Faith MD FIO2 34 [facility] Comment on above: Performed By: #### C DP, CP, TROPI, BNP #### [address] [place], [facility]83 [employer] Operator: Naima Faith MD HCO3 (Bld) [Moles/Vol] 34.1 mmol/L High 22-26 [facility] Comment on above: Performed By: #### C DP, CP, TROPI, BNP #### [address] [place], [facility]83 [employer] Equipment Operator: Naima Faith MD O2 Device/Flow/% HEATED HIGH FLOW [facility] Comment on above: Performed By: #### C DP, CP, TROPI, BNP #### [address] [place], [facility]83 [employer] Operator: Naima Faith MD Oxygen (Bld) [Partial pressure] 80.8 mm[Hg] Normal 80.0-100.0 [facility] Comment on above: Performed By: #### C DP, CP, TROPI, BNP #### [facility] [address] [place] [address] Dr. [place], [facility]83 [employer] Operator: Naima Faith MD Oxygen saturation in Blood 94.9 % Low 95-98 [facility] Comment on above: Performed By: #### C DP, CP, TROPI, BNP #### [address] [place], [facility]83 [employer] Operator: Naima Faith MD pCO2 65.4 mmHg Critically high 35-45 [facility] Comment on above: Performed By: #### C DP, CP, TROPI, BNP #### [address] [place] [address] [employer] Operator: Naima Faith MD pCO2 Adj'd for Temp 65.4 Critically high 35.0-45.0 [facility] Comment on above: Performed By: #### C DP, CP, TROPI, BNP #### [facility] [address] [place] [address] Dr. [place], [place] [id number] [employer] Operator: Naima Faith MD pH (Bld) 7.335 [pH] Low 7.35-7.45 [facility] Comment on above: Performed By: #### C DP, CP, TROPI, BNP #### [address] [place], [place] [id number] [employer] Operator: Naima Faith MD pH Adjst'd for Temp. 7.335 Low 7.350-7.450 [facility] Comment on above: Performed By: #### C DP, CP, TROPI, BNP #### [address] [place], [place] [id number] [employer] Operator: Naima Faith MD pO2 Adjst'd for Temp 80.8 mmHg Normal 80.0-100.0 [facility] Comment on above: Performed By: #### C DP, CP, TROPI, BNP #### [facility] [address] [place] [address] Dr. [place], [place] [phone] [employer] Operator: Naima Faith MD Positive Base Excess 5.8 mmol/L High 0.0-2.0 [facility] Comment on above: Performed By: #### C DP, CP, TROPI, BNP #### [address] [place], [place] [phone] [employer] Operator: Naima Faith MD Site Drawn Right Brachial Artery Normal [facility] Comment on above: Performed By: #### C DP, CP, TROPI, BNP #### [facility] [address] [place] [address] [place] [address] [employer] Operator: Naima Faith MD Text for Respiratory Called to RN on 02/12/2025 at 07:24 Normal [facility] Comment on above: Performed By: #### C DP, CP, TROPI, BNP #### [facility] [address] [place] [address] [place] [address] [employer] Operator: Naima Faith MD Basic Metab w/rfx MGon 02-12 Anion gap [Moles/Vol] 8 mmol/L Low 9-16 [facility] Comment on above: Performed By: #### C DP, CP, TROPI, BNP #### [facility] [address] [place] [address] Dr. [place], [place] [phone] [employer] Operator: Naima Faith MD BUN/CRE Ratio 30 High 9-20 [facility] Comment on above: Performed By: #### C DP, CP, TROPI, BNP #### [address] [place], [place] [id number] [employer] Operator: Naima Fatih MD Calcium [Mass/Vol] 9.0 mg/dL Normal 8.6-10.4 [facility] Comment on above: Performed By: #### C DP, CP, TROPI, BNP #### [facility] [address] [place] [address] Dr. [place], [place] [id number] [employer] Operator: Naima Faith MD Chloride [Moles/Vol] 96 mmol/L Low 98-107 [facility] Comment on above: Performed By: #### C DP, CP, TROPI, BNP #### [facility] [address] [place] [address] [place] [address] [employer] Operator: Naima Faith MD CO2 [Moles/Vol] 37 mmol/L High 20-31 [facility] Comment on above: Performed By: #### C DP, CP, TROPI, BNP #### [facility] [address] [place] [address] [employer] Operator: Naima Faith MD Creatinine [Mass/Vol] 0.5 mg/dL Low 0.70-1.20 [facility] Comment on above: Performed By: #### C DP, CP, TROPI, BNP #### [facility] [address] [place] [address] [employer] Operator: Naima Faith MD GFR/1.73 sq M.predicted among non-blacks MDRD (S/P/Bld) [Vol rate/Area] mL/min/{1.73_m2} Normal >60 [facility] Comment on above: Result Comment: These results [...] #### C DP, CP, TROPI, BNP #### [facility] [address] [place] [address] [employer] Operator: Naima Faith MD Glucose [Mass/Vol] 121 mg/dL High 74-99 [facility] Comment on above: Performed By: #### C DP, CP, TROPI, BNP #### [facility] [address] [place] [address] [employer] Operator: Naima Faith MD Potassium [Moles/Vol] 4.2 mmol/L Normal 3.7-5.3 [facility] Comment on above: Performed By: #### C DP, CP, TROPI, BNP #### [facility] [address] [place] [address] [employer] Operator: Naima Faith MD Sodium [Moles/Vol] 141 mmol/L Normal 136-145 [facility] Comment on above: Performed By: #### C DP, RYAN, TROPI, BNP #### [facility] [address] [place], [place] [phone] [employer] Operator: Naima Faith MD Urea nitrogen [Mass/Vol] 15 mg/dL Normal 8-23 [facility] Comment on above: Performed By: #### C CARLOS, RYAN, TROPI, BNP #### [facility] [address] [place] [address] [employer] Operator: Naima Faith MD Basic Metabolic Panel w/ Ref kwabena to MGon 02-12-2025 Anion gap [Moles/Vol] 8 mmol/L Low 9 - 16 mmol/L [facility] Calcium [Mass/Vol] 9 mg/dL 8.6 - 10. 4 mg/dL [facility] Chloride [Moles/Vol] 96 mmol/L Low 98 - 10 7 mmol/L [facility] CO2 [Moles/Vol] 37 mmol/L High 20 - 31 mmol/L [facility] Creatinine [Mass/Vol] 0.5 mg/dL Low 0.70 - 1.20 mg/dL [facility] Est, Glom Filt Rate - PINF [facility] Glucose [Mass/Vol] 121 mg/dL High 74 - 99 mg/dL [facility] Interpretation and review of laboratory results Abnormal [facility] Potassium [Moles/Vol] 4.2 mmol/L 3.7 - 5.3 mmol/L [facility] Sodium [Moles/Vol] 141 mmol/L 136 - 145 mmol/L [facility] Urea nitrogen [Mass/Vol] 15 mg/dL 8 - 23 mg/dL [facility] Urea nitrogen/Creatinine [Mass ratio] 30 mg/mg High 9 - 20 [facility] Blood Gas, Arterialon 2024 Arterial patency Wrist artery --pre arterial puncture YES [facility] Body site Right Brachial Artery [facility] Interpretation and review of laboratory results Abnormal [facility] Oxygen gas flow Oxygen delivery system HEATED HIGH FLOW [facility] Oxygen/Inspired gas Respiratory system --on ventilator 34 [facility] pCO2, Art, Temp Adj 65.4 Critically high 35.0 - 45.0 [facility] pCO2, Arterial 65.4 Critically high [facility] pH, Art, Temp Adj 7.335 Low 7.350 - 7.450 [facility] pH, Arterial 7.335 Low 7.35 - 7.45 [facility] pO2, Art, Temp Adj 80.8 [facility] pO2, Arterial 80.8 [facility] Positive Base Excess, Art 5.8 mmol/L High 0.0 - 2.0 mmol/L [facility] CBC auto differentialon 3 0 Basophils (Bld) [#/Vol] 0.06 10*3/uL [facility] Basophils/100 WBC (Bld) 1 % 0 - 2 % [facility] Eosinophils (Bld) [#/Vol] 0.13 10*3/uL [facility] Eosinophils/100 WBC (Bld) 2 % 1 - 4 % [facility] Erythrocyte distribution width (RBC) [Ratio] 18 % High 11.8 - 14.4 % [facility] Hematocrit (Bld) [Volume fraction] 45.9 % 40.7 - 50.3 % [facility] Hemoglobin (Bld) [Mass/Vol] 12.9 g/dL Low 13.0 - 17.0 g/dL [facility] Immature granulocytes (Bld) [#/Vol] 0.06 10*3/uL [facility] Immature granulocytes/100 WBC (Bld) 1 % High 0 [facility] Interpretation and review of laboratory results Abnormal [facility] Lymphocytes/100 WBC (Bld) 25 % 24 - 43 % [facility] Lymphocytes/100 WBC (Bld) 1.6 % [facility] MCH (RBC) [Entitic mass] 25 pg Low 25.2 - 33.5 pg [facility] MCHC (RBC) [Mass/Vol] 28.1 g/dL Low 28.4 - 34.8 g/dL [facility] MCV (RBC) [Entitic vol] 89.1 fL 82.6 - 102.9 fL [facility] Monocytes/100 WBC (Bld) 8 % 3 - 12 % [facility] Monocytes/100 WBC (Bld) 0.51 % [facility] Morphology Gustavo (Bld) [Interp] HYPOCHROMIA PRESENT [facility] Neutrophils/100 WBC (Bld) 63 % 36 - 65 % [facility] Nucleated RBC/100 WBC (Bld) [Ratio] 0 % 0.0 per 100 WBC [facility] Platelet mean volume (Bld) [Entitic vol] 10.6 fL 8.1 - 13.5 fL [facility] Platelets (Bld) [#/Vol] 161 10*3/uL [facility] RBC (Bld) [#/Vol] 5.15 10*6/uL 4.21 - 5.7 7 m/uL [facility] Segmented neutrophils/100 WBC (Bld) 4.04 % [facility] WBC other (Bld) [#/Vol] 6.4 [facility] CBC with Diffon 02-12-2025 Abs. Basophil 0.06 k/uL Normal 0.00-0.20 [facility] Comment on above: Performed By: #### C RYAN GONZALEZ, TROPI, BNP #### [facility] [address] [place] [address] Dr. [place], [facility]83 [employer] Operator: Naima Faith MD Abs.Imm.Granulocyte 0.06 k/uL Normal 0.00-0.30 [facility] Comment on above: Performed By: #### C RYAN GONZALEZ, TROPI, BNP #### [facility] [address] [place] [address] [place] [address] [employer] Operator: Naima Faith MD Abs.Neutrophil (Seg) 4.04 k/uL Normal 1.50-8.10 [facility] Comment on above: Performed By: #### C DP, CP, TROPI, BNP #### [facility] [address] [place] [address] [employer] Operator: Naima Faith MD Basophils/100 WBC (Bld) 1 % Normal 0-2 [facility] Comment on above: Performed By: #### C DP, CP, TROPI, BNP #### [facility] [address] [place] [address] [employer] Operator: Naima Faith MD Eosinophils (Bld) [#/Vol] 0.13 10*3/uL Normal 0.00-0.44 [facility] Comment on above: Performed By: #### C DP, CP, TROPI, BNP #### [address] [place] [address] [employer] Operator: Naima Faith MD Eosinophils/100 WBC (Bld) 2 % Normal 1-4 [facility] Comment on above: Performed By: #### C DP, CP, TROPI, BNP #### [address] [place] [address] [employer] Operator: Naima Faith MD Immature granulocytes/100 WBC (Bld) 1 % High 0 [facility] Comment on above: Performed By: #### C DP, CP, TROPI, BNP #### [address] [place] [address] [employer] Operator: Naima Faith MD Lymphocytes (Bld) [#/Vol] 1.60 10*3/uL Normal 1.10-3.70 [facility] Comment on above: Performed By: #### C DP, CP, TROPI, BNP #### [facility] [address] [place] [address] [employer] Operator: Naima Faith MD Lymphocytes/100 WBC (Bld) 25 % Normal 24-43 [facility] Comment on above: Performed By: #### C DP, CP, TROPI, BNP #### [facility] [address] [place] [address] [employer] Operator: Naima Faith MD Monocytes (Bld) [#/Vol] 0.51 10*3/uL Normal 0.10-1.20 [facility] Comment on above: Performed By: #### C DP, CP, TROPI, BNP #### [address] [place], [place] [address] [employer] Operator: Naima Faith MD Monocytes/100 WBC (Bld) 8 % Normal 3-12 [facility] Comment on above: Performed By: #### C DP, CP, TROPI, BNP #### [address] [place] [address] [employer] Operator: Naima Faith MD Morphology Gustavo (Bld) [Interp] HYPOCHROMIA Normal [facility] Comment on above: Result Comment: PRES ENT Performed By: #### C DP, CP, TROPI, BNP #### [address] [place], [facility]83 [employer] Operator: Naima Faith MD Neutrophil (Seg) 63 % Normal 36-65 [facility] Comment on above: Performed By: #### C DP, CP, TROPI, BNP #### [address] [place], [place] [address] [employer] Operator: Naima Faith MD Erythrocyte distribution width (RBC) [Ratio] 18.0 % High 11.8-14.4 [facility] Comment on above: Performed By: #### C DP, CP, TROPI, BNP #### [address] [place], [facility]83 [employer] Operator: Naima Faith MD Hematocrit (Bld) [Volume fraction] 45.9 % Normal 40.7-50.3 [facility] Comment on above: Performed By: #### C DP, CP, TROPI, BNP #### [address] [place], [facility]83 [employer] Operator: Naima Faith MD Hemoglobin (Bld) [Mass/Vol] 12.9 g/dL Low 13.0-17.0 [facility] Comment on above: Performed By: #### C DP, CP, TROPI, BNP #### [address] [place], [place] [address] [employer] Operator: Naima Faith MD MCH (RBC) [Entitic mass] 25.0 pg Low 25.2-33.5 [facility] Comment on above: Performed By: #### C DP, CP, TROPI, BNP #### [address] [place] [id number] [employer] Operator: Naima Faith MD MCHC (RBC) [Mass/Vol] 28.1 g/dL Low 28.4-34.8 [facility] Comment on above: Performed By: #### C DP, CP, TROPI, BNP #### [address] [place], [facility]83 [employer] Operator: Naima Faith MD MCV (RBC) [Entitic vol] 89.1 fL Normal 82.6-102.9 [facility] Comment on above: Performed By: #### C DP, CP, TROPI, BNP #### [address] [place], [facility]83 [employer] Operator: Naima Faith MD NRBC Automated 0.0 per 100 WBC Normal 0.0 [facility] Comment on above: Performed By: #### C DP, CP, TROPI, BNP #### [address] [place] [id number] [employer] Operator: Naima Faith MD Platelet mean volume (Bld) [Entitic vol] 10.6 fL Normal 8.1-13.5 [facility] Comment on above: Performed By: #### C DP, CP, TROPI, BNP #### [facility] [address] [place], [place] [phone] [employer] Operator: Naima Faith MD Platelets (Bld) [#/Vol] 161 10*3/uL Normal 138-453 [facility] Comment on above: Performed By: #### C DP, CP, TROPI, BNP #### [facility] [address] [place], [place] [phone] [employer] Operator: Naima Faith MD RBC (Bld) [#/Vol] 5.15 10*6/uL Normal 4.21-5.77 [facility] Comment on above: Performed By: #### C DP, CP, TROPI, BNP #### [facility] [address] [place], [place] [phone] [employer] Operator: Naima Faith MD WBC (Bld) [#/Vol] 6.4 10*3/uL Normal 3.5-11.3 [facility] Comment on above: Performed By: #### C DP, CP, TROPI, BNP #### [facility] [address] [place], [place] [phone] [employer] Operator: Naima Faith MD EKG 12 [place] 02-12-2025 Atrial Rate 70 BPM [facility] P [place] 44 degrees [facility] P-R Interval 240 ms [facility] Q-T Interval 420 ms [facility] QRS Duration 152 ms [facility] QTc Calculation (Bazett) 453 ms [facility] R [place] -87 degrees [facility] T [place] 3 degrees [facility] Ventricular Rate 70 BPM [facility] RAD[facility]Y [facility] EKG Rhythm Stripon [facility] Arterial Blood Gaseson 02-11 Ethan Test NOT APPLICABLE Normal [facility] Comment on above: Performed By: #### C DP, CP, TROPI, BNP #### [facility] [address] [place], [place] [phone] [employer] Equipment Operator: Naima Faith MD Body Temp. 37.0 [facility] Comment on above: Performed By: #### C DP, CP, TROPI, BNP #### [facility] [address] [place], [place] [phone] [employer] Operator: Naima Faith MD FIO2 23 [facility] Comment on above: Performed By: #### C DP, CP, TROPI, BNP #### [address] [place], [place] [phone] [employer] Operator: Naima Faith MD HCO3 (Bld) [Moles/Vol] 34.5 mmol/L High 22-26 [facility] Comment on above: Performed By: #### C DP, CP, TROPI, BNP #### [facility] [address] [place] [address] Dr. [place], [place] [phone] [employer] Operator: Naima Faith MD O2 Device/Flow/% Cann[facility] Comment on above: Performed By: #### C DP, CP, TROPI, BNP #### [address] [place], [place] 0106583 [employer] Operator: Naima Faith MD Oxygen (Bld) [Partial pressure] 73.1 mm[Hg] Low 80.0-100.0 [facility] Comment on above: Performed By: #### C DP, CP, TROPI, BNP #### [facility] [address] [place] [address] Dr. [place], [place] [phone] [employer] Operator: Naima Faith MD Oxygen saturation in Blood 93.4 % Low 95-98 [facility] Comment on above: Performed By: #### C DP, CP, TROPI, BNP #### [address] [place] 8608383 [employer] Equipment Operator: Naima Faith MD pCO2 64.9 mmHg Critically high 35-45 [facility] Comment on above: Performed By: #### C DP, CP, TROPI, BNP #### [facility] [address] [place], [place] 2138883 [employer] Equipment Operator: Naima Faith MD pCO2 Adj'd for Temp 64.9 Critically high 35.0-45.0 [facility] Comment on above: Performed By: #### C DP, CP, TROPI, BNP #### [address] [place], [place] 9856483 [employer] Operator: Naima Faith MD pH (Bld) 7.343 [pH] Low 7.35-7.45 [facility] Comment on above: Performed By: #### C DP, CP, TROPI, BNP #### [address] [place], [place] 7618383 [employer] Operator: Naima Faith MD pH Adjst'd for Temp. 7.343 Low 7.350-7.450 [facility] Comment on above: Performed By: #### C DP, CP, TROPI, BNP #### [address] [place], [place] 7758783 [employer] Operator: Naima Faith MD pO2 Adjst'd for Temp 73.1 mmHg Low 80.0-100.0 [facility] Comment on above: Performed By: #### C DP, CP, TROPI, BNP #### [address] [place], [place] 7134083 [employer] Operator: Naima Faith MD Positive Base Excess 6.3 mmol/L High 0.0-2.0 [facility] Comment on above: Performed By: #### C DP, CP, TROPI, BNP #### [address] [place], [place] [phone] [employer] Equipment Operator: Naima Faith MD Set Rate 1 [facility] Comment on above: Performed By: #### C DP, CP, TROPI, BNP #### [facility] [address] [place] [address] [employer] Operator: Naima Faith MD Site Drawn Right Radial Artery [facility] Comment on above: Performed By: #### C DP, CP, TROPI, BNP #### [facility] [address] [place] [address] [employer] Equipment Operator: Naima Faith MD Text for Respiratory Called to RN on 02/11/2025 at 12:02 [facility] Comment on above: Performed By: #### C DP, CP, TROPI, BNP #### [facility] [address] [place] [address] [place] [address] [employer] Operator: Naima Faith MD Basic Metab w/rfx MGon 02-11 Anion gap [Moles/Vol] 5 mmol/L Low 9-16 [facility] Comment on above: Performed By: #### C DP, CP, TROPI, BNP #### [address] [place] [address] [employer] Operator: Naima Faith MD BUN/CRE Ratio 35 High 9-20 [facility] Comment on above: Performed By: #### C DP, CP, TROPI, BNP #### [facility] [address] [place] [address] [employer] Equipment Operator: Naima Faith MD Calcium [Mass/Vol] 8.7 mg/dL Normal 8.6-10.4 [facility] Comment on above: Performed By: #### C DP, CP, TROPI, BNP #### [facility] [address] [place] [address] [place] [address] [employer] Operator: Naima Faith MD Chloride [Moles/Vol] 96 mmol/L Low 98-107 [facility] Comment on above: Performed By: #### C DP, CP, TROPI, BNP #### [facility] [address] [place], [place] [phone] [employer] Operator: Naima Faith MD CO2 [Moles/Vol] 39 mmol/L High 20-31 [facility] Comment on above: Performed By: #### C DP, CP, TROPI, BNP #### [facility] [address] [place], [place] 9502883 [employer] Operator: Naima Faith MD Creatinine [Mass/Vol] 0.4 mg/dL Low 0.70-1.20 [facility] Comment on above: Performed By: #### C DP, CP, TROPI, BNP #### [facility] [address] [place], [place] [id number] [employer] Operator: Naima Faith MD GFR/1.73 sq M.predicted among non-blacks MDRD (S/P/Bld) [Vol rate/Area] mL/min/{1.73_m2} Normal >60 [facility] Comment on above: Result Comment: These results [...] #### C DP, CP, TROPI, BNP #### [facility] [address] [place], [place] [phone] [employer] Operator: Naima Faith MD Glucose [Mass/Vol] 107 mg/dL High 74-99 [facility] Comment on above: Performed By: #### C DP, CP, TROPI, BNP #### [facility] [address] [place], [place] [phone] [employer] Operator: Naima Faith MD Potassium [Moles/Vol] 3.9 mmol/L Normal 3.7-5.3 [facility] Comment on above: Performed By: #### C DP, CP, TROPI, BNP #### [facility] [address] [place] [address] [employer] Operator: Naima Faith MD Sodium [Moles/Vol] 140 mmol/L Normal 136-145 [facility] Comment on above: Performed By: #### C DP, CP, TROPI, BNP #### [facility] [address] [place] [address] [employer] Operator: Naima Faith MD Urea nitrogen [Mass/Vol] 14 mg/dL Normal 8-23 [facility] Comment on above: Performed By: #### C CARLOS CP, TROPI, BNP #### [facility] [address] [place], [place] [address] [employer] Operator: Naima Faith MD Basic Metabolic Panel w/ Ref kwabena to MGon 02-11-2025 Anion gap [Moles/Vol] 5 mmol/L Low 9 - 16 mmol/L [facility] Calcium [Mass/Vol] 8.7 mg/dL 8.6 - 10. 4 mg/dL [facility] Chloride [Moles/Vol] 96 mmol/L Low 98 - 10 7 mmol/L [facility] CO2 [Moles/Vol] 39 mmol/L High 20 - 31 mmol/L [facility] Creatinine [Mass/Vol] 0.4 mg/dL Low 0.70 - 1.20 mg/dL [facility] Est, Glom Filt Rate - PINF [facility] Glucose [Mass/Vol] 107 mg/dL High 74 - 99 mg/dL [facility] Interpretation and review of laboratory results Abnormal [facility] Potassium [Moles/Vol] 3.9 mmol/L 3.7 - 5.3 mmol/L [facility] Sodium [Moles/Vol] 140 mmol/L 136 - 145 mmol/L [facility] Urea nitrogen [Mass/Vol] 14 mg/dL 8 - 23 mg/dL [facility] Urea nitrogen/Creatinine [Mass ratio] 35 mg/mg High 9 - 20 [facility] Blood Gas, Arterialon 2024 Arterial patency Wrist artery --pre arterial puncture NOT APPLICABLE [facility] Body site Right Radial Artery [facility] HCO3 (Bld) [Moles/Vol] 34.5 mmol/L High 22 - 26 mmol/L [facility] Interpretation and review of laboratory results Abnormal [facility] Oxygen gas flow Oxygen delivery system Cannula [facility] Oxygen gas flow setting Oxymiser 1 [facility] Oxygen saturation in Blood 93.4 % Low 95 - 98 % [facility] Oxygen/Inspired gas Respiratory system --on ventilator 23 [facility] pCO2, Art, Temp Adj 64.9 Critically high 35.0 - 45.0 [facility] pCO2, Arterial 64.9 Critically high [facility] pH, Art, Temp Adj 7.343 Low 7.350 - 7.450 [facility] pH, Arterial 7.343 Low 7.35 - 7.45 [facility] pO2, Art, Temp Adj 73.1 Low [facility] pO2, Arterial 73.1 Low [facility] Positive Base Excess, Art 6.3 mmol/L High 0.0 - 2.0 mmol/L [facility] Text for Respiratory Called to RN on 02/11/2025 at 12:02 [facility] Blood Gas, Venouson 02-12-20 25 Arterial patency Wrist artery --pre arterial puncture NOT APPLICABLE [facility] HCO3 (Bld) [Moles/Vol] 41.4 mmol/L High 24.0 - 30.0 mmol/L [facility] Interpretation and review of laboratory results Abnormal [facility] Oxygen gas flow Oxygen delivery system Cannula [facility] Oxygen gas flow setting Oxymiser 1 [facility] Oxygen saturation in Blood 59.9 % Low 60.0 - 85.0 % [facility] Oxygen/Inspired gas Respiratory system --on ventilator 23 [facility] pCO2, Galo 82 Critically high [facility] pCO2, Galo, Temp Adj 82 High [facility] pH, Galo 7.321 7.32 - 7.42 Bon [facility] pH, Galo, Temp Adj 7.321 7.320 - 7.[address] [facility] PO2, Galo 35.[address] [facility] pO2, Galo, Temp Adj 35.3 Bon Se [facility] Positive Base Excess, Galo 11.3 mmol/L High 0.0 - 2.0 mmol/L [facility] Text for Respiratory Called to RN on 02/11/2025 at 09:07 [facility] Arterial patency Wrist artery --pre arterial puncture NOT APPLICABLE [facility] HCO3 (Bld) [Moles/Vol] 39.8 mmol/L High 24.0 - 30.0 mmol/L [facility] Interpretation and review of laboratory results Abnormal [facility] Oxygen gas flow Oxygen delivery system BIPAP [facility] Oxygen saturation in Blood 96.2 % High 60.0 - 85.0 % [facility] Oxygen/Inspired gas Respiratory system --on ventilator 28 [facility] pCO2, Galo 76.1 Critically high Bon [facility] pCO2, Galo, Temp Adj 76.1 High [facility] pH, Galo 7.336 7.32 - 7.[address] [facility] pH, Galo, Temp Adj 7.336 7.320 - 7.[address] [facility] PO2, Galo 92.[address] [facility] pO2, Galo, Temp Adj 92.2 High Bon [facility] Positive Base Excess, Galo 10.4 mmol/L High 0.0 - 2.0 mmol/L [facility] Text for Respiratory Called to RN on 02/11/2025 at 05:22 [facility] CBC auto differentialon 01-15 Basophils (Bld) [#/Vol] 0 10*3/uL [facility] Basophils/100 WBC (Bld) 0 % 0 - 2 % [facility] Eosinophils (Bld) [#/Vol] 0.06 10*3/uL [facility] Eosinophils/100 WBC (Bld) 1 % 1 - 4 % [facility] Erythrocyte distribution width (RBC) [Ratio] 17.6 % High 11.8 - 14.4 % [facility] Hematocrit (Bld) [Volume fraction] 45.7 % 40.7 - 50.3 % [facility] Hemoglobin (Bld) [Mass/Vol] 12.8 g/dL Low 13.0 - 17.0 g/dL [facility] Immature granulocytes (Bld) [#/Vol] 0.06 10*3/uL [facility] Immature granulocytes/100 WBC (Bld) 1 % High 0 [facility] Interpretation and review of laboratory results Abnormal [facility] Lymphocytes/100 WBC (Bld) 24 % 24 - 43 % [facility] Lymphocytes/100 WBC (Bld) 1.54 % [facility] MCH (RBC) [Entitic mass] 24.8 pg Low 25.2 - 33.5 pg [facility] MCHC (RBC) [Mass/Vol] 28 g/dL Low 28.4 - 34.8 g/dL [facility] MCV (RBC) [Entitic vol] 88.4 fL 82.6 - 102.[address] [facility] Monocytes/100 WBC (Bld) 8 % 3 - 12 % [facility] Monocytes/100 WBC (Bld) 0.51 % [facility] Morphology Gustavo (Bld) [Interp] HYPOCHROMIA PRESENT [facility] Neutrophils/100 WBC (Bld) 66 % High 36 - 65 % [facility] Nucleated RBC/100 WBC (Bld) [Ratio] 0 % 0.0 per 100 WBC [facility] Platelet mean volume (Bld) [Entitic vol] 10.1 fL 8.1 - 13.5 fL [facility] Platelets (Bld) [#/Vol] 166 10*3/uL [facility] RBC (Bld) [#/Vol] 5.17 10*6/uL 4.21 - 5.7 7 m/uL [facility] Segmented neutrophils/100 WBC (Bld) 4.23 % [facility] WBC other (Bld) [#/Vol] 6.4 [facility] CBC with Diffon 02-11-2025 Abs. Basophil 0.00 k/uL Normal 0.0-0.2 [facility] Comment on above: Performed By: #### C DP, CP, TROPI, BNP #### [facility] [address] [place] [address] [employer] Operator: Naima Faith MD Abs.Imm.Granulocyte 0.06 k/uL Normal 0.00-0.30 [facility] Comment on above: Performed By: #### C DP, CP, TROPI, BNP #### [address] [address] [employer] Operator: Naima Faith MD Abs.Neutrophil (Seg) 4.23 k/uL Normal 1.50-8.10 [facility] Comment on above: Performed By: #### C DP, CP, TROPI, BNP #### [address] [place], [place] [address] [employer] Operator: Naima Faith MD Basophils/100 WBC (Bld) 0 % Normal 0-2 [facility] Comment on above: Performed By: #### C DP, CP, TROPI, BNP #### [address] [place], [place] [address] [employer] Operator: Naima Faith MD Eosinophils (Bld) [#/Vol] 0.06 10*3/uL Normal 0.00-0.44 [facility] Comment on above: Performed By: #### C DP, CP, TROPI, BNP #### [facility] [address] [place], [facility] [employer] Operator: Naima Faith MD Eosinophils/100 WBC (Bld) 1 % Normal 1-4 [facility] Comment on above: Performed By: #### C DP, CP, TROPI, BNP #### [facility] [address] [place], [place] [address] [employer] Operator: Naima Faith MD Immature granulocytes/100 WBC (Bld) 1 % High 0 [facility] Comment on above: Performed By: #### C DP, CP, TROPI, BNP #### [facility] [address] [place], [place] [address] [employer] Operator: Naima Faith MD Lymphocytes (Bld) [#/Vol] 1.54 10*3/uL Normal 1.10-3.70 [facility] Comment on above: Performed By: #### C DP, CP, TROPI, BNP #### [address] [place] [address] [employer] Operator: Naima Faith MD Lymphocytes/100 WBC (Bld) 24 % Normal 24-43 [facility] Comment on above: Performed By: #### C DP, CP, TROPI, BNP #### [address] [place], [place] [address] [employer] Operator: Naima Faith MD Monocytes (Bld) [#/Vol] 0.51 10*3/uL Normal 0.10-1.20 [facility] Comment on above: Performed By: #### C DP, CP, TROPI, BNP #### [address] [place], [place] [address] [employer] Operator: Naima Faith MD Monocytes/100 WBC (Bld) 8 % Normal 3-12 [facility] Comment on above: Performed By: #### C DP, CP, TROPI, BNP #### [facility] [address] [place], [place] [address] [employer] Operator: Naima Faith MD Morphology Gustavo (Bld) [Interp] HYPOCHROMIA Normal [facility] Comment on above: Result Comment: PRES ENT Performed By: #### C DP, CP, TROPI, BNP #### [facility] [address] [place] [address] [employer] Operator: Naima Faith MD Neutrophil (Seg) 66 % High 36-65 [facility] Comment on above: Performed By: #### C DP, CP, TROPI, BNP #### [facility] [address] [place], [facility] [employer] Operator: Naima Faith MD Erythrocyte distribution width (RBC) [Ratio] 17.6 % High 11.8-14.4 [facility] Comment on above: Performed By: #### C DP, CP, TROPI, BNP #### [address] [place], [place] [id number] [employer] Operator: Naima Faith MD Hematocrit (Bld) [Volume fraction] 45.7 % Normal 40.7-50.3 [facility] Comment on above: Performed By: #### C DP, CP, TROPI, BNP #### [address] [place], [place] [id number] [employer] Operator: Naima Faith MD Hemoglobin (Bld) [Mass/Vol] 12.8 g/dL Low 13.0-17.0 [facility] Comment on above: Performed By: #### C DP, CP, TROPI, BNP #### [address] [place], [facility] [employer] Operator: Naima Faith MD MCH (RBC) [Entitic mass] 24.8 pg Low 25.2-33.5 [facility] Comment on above: Performed By: #### C DP, CP, TROPI, BNP #### [address] [place], [place] [id number] [employer] Operator: Naima Faith MD MCHC (RBC) [Mass/Vol] 28.0 g/dL Low 28.4-34.8 [facility] Comment on above: Performed By: #### C DP, CP, TROPI, BNP #### [address] [place], [facility] [employer] Operator: Naima Faith MD MCV (RBC) [Entitic vol] 88.4 fL Normal 82.6-102.9 [facility] Comment on above: Performed By: #### C DP, CP, TROPI, BNP #### [address] [place], [place] [address] [employer] Operator: Naima Faith MD NRBC Automated 0.0 per 100 WBC Normal 0.0 [facility] Comment on above: Performed By: #### C DP, CP, TROPI, BNP #### [address] [place], [facility]83 [employer] Operator: Naima Faith MD Platelet mean volume (Bld) [Entitic vol] 10.1 fL Normal 8.1-13.5 [facility] Comment on above: Performed By: #### C DP, CP, TROPI, BNP #### [address] [place], [place] [address] [employer] Operator: Naima Faith MD Platelets (Bld) [#/Vol] 166 10*3/uL Normal 138-453 [facility] Comment on above: Performed By: #### C DP, CP, TROPI, BNP #### [address] [place], [place] [address] [employer] Operator: Naima Faith MD RBC (Bld) [#/Vol] 5.17 10*6/uL Normal 4.21-5.77 [facility] Comment on above: Performed By: #### C DP, CP, TROPI, BNP #### [address] [place], [place] [id number] [employer] Operator: Naima Faith MD WBC (Bld) [#/Vol] 6.4 10*3/uL Normal 3.5-11.3 [facility] Comment on above: Performed By: #### C DP, CP, TROPI, BNP #### [facility] [address] [place] [address] [employer] Operator: Naima Faith MD EKG 12 [place] 02-11-2025 Atrial Rate 78 BPM [facility] P [place] 27 degrees [facility] P-R Interval 228 ms [facility] Q-T Interval 418 ms [facility] QRS Duration 146 ms [facility] QTc Calculation (Bazett) 476 ms [facility] R [place] 269 degrees [facility] T [place] -16 degrees [facility] Ventricular Rate 78 BPM [facility] RADIOLOGY [facility] EKG Rhythm Stripon 5 [facility] LAB [facility] Outside Recordson 02-11-2025 Outside Records [id number] 22 [id number] [facility] - Other Radiology Report on 02-11-2025 Rad - Other Radiology Report [id number] [facility] Viral [facility] 5 Adenovirus Not detected Normal [facility] Comment on above: Performed By: #### C DP, CP, TROPI, BNP #### [facility] [address] [place], [place] [phone] [employer] Operator: MD Percy Tee.parapertussis Not detected Normal [facility] Comment on above: Performed By: #### C DP, CP, TROPI, BNP #### [facility] [address] [place] [address] [employer] Operator: Naima Sturtz, MD Bordetella pertussis Not detected Normal [facility] Comment on above: Performed By: #### C DP, CP, TROPI, BNP #### [address] [place] [address] [employer] Operator: Naima Faith MD Chlamyd.pneumoniae Not detected [facility] Comment on above: Performed By: #### C DP, CP, TROPI, BNP #### [address] [place] [address] [employer] Operator: Naima Faith MD Coronavirus 229E Not detected [facility] Comment on above: Performed By: #### C DP, CP, TROPI, BNP #### [address] [place] [address] [employer] Operator: Naima Faith MD Coronavirus HKU1 Not detected [facility] Comment on above: Performed By: #### C DP, CP, TROPI, BNP #### [address] [place] [address] [employer] Operator: Naima Faith MD Coronavirus NL63 Not detected [facility] Comment on above: Performed By: #### C DP, CP, TROPI, BNP #### [address] [place] [address] [employer] Operator: Naima Faith MD Coronavirus OC43 Not detected [facility] Comment on above: Performed By: #### C DP, CP, TROPI, BNP #### [address] [place] [address] [employer] Operator: Naima Faith MD Human Metapneumo Not detected [facility] Comment on above: Performed By: #### C DP, CP, TROPI, BNP #### [address] [place] [address] [employer] Operator: Naima Faith MD Influenza A Not detected Normal [facility] Comment on above: Performed By: #### C DP, CP, TROPI, BNP #### [address] [place] [address] [employer] Operator: Naiam Faith MD Influenza B Not detected Normal [facility] Comment on above: Performed By: #### C DP, CP, TROPI, BNP #### [address] [place] [address] [employer] Operator: Naima Faith MD Mycoplas.pneumoniae Not detected [facility] Comment on above: Result Comment: Perf ormed by multiplexed nucleic acid assay. Performed By: #### C DP, CP, TROPI, BNP #### [address] [place], [place] [phone] [employer] Operator: Naima Faith MD Parainfluenza 1 Not detected [facility] Comment on above: Performed By: #### C DP, CP, TROPI, BNP #### [address] [place] [address] [employer] Operator: Naima Faith MD Parainfluenza 2 Not detected [facility] Comment on above: Performed By: #### C DP, CP, TROPI, BNP #### [address] [place] [address] [employer] Operator: Naima Faith MD Parainfluenza 3 Not detected [facility] Comment on above: Performed By: #### C DP, CP, TROPI, BNP #### [address] [place] [address] [employer] Operator: Naima Faith MD Parainfluenza 4 Not detected [facility] Comment on above: Performed By: #### C DP, CP, TROPI, BNP #### [facility] [address] [place] [address] [place] [address] [employer] Operator: Naima Faith MD Resp Syncytial Virus Not detected Normal [facility] Comment on above: Performed By: #### C DP, CP, TROPI, BNP #### [facility] [address] [place] [address] [place] [address] [employer] Operator: Naima Faith MD Rhino/Enterovirus Not detected Normal [facility] Comment on above: Performed By: #### C DP, CP, TROPI, BNP #### [facility] [address] [place] [address] [place] [address] [employer] Operator: Naima Faith MD SARS-CoV-2 (COVID-19) RNA ZACHARIAH+probe Ql (Unsp spec) Not detected Normal [facility] Comment on above: Performed By: #### C DP, CP, TROPI, BNP #### [address] [place] [address] [employer] Operator: Naima Faith MD Respiratory Panel, Molecular , with COVID-19 (Restricted: peds pts or suitable admitted adults)on 02-11-2025 Adenovirus DNA ZACHARIAH+non-probe Ql (Nph) Not detected Not Detected [facility] B. parapertussis [id number] DNA ZACHARIAH+non-probe Ql (Nph) Not detected Not Detected [facility] B. pertussis DNA ZACHARIAH+probe Ql (Unsp spec) Not detected Not Detected [facility] C. pneumoniae DNA ZACHARIAH+non-probe Ql (Nph) Not detected Not Detected [facility] FLUAV RNA ZACHARIAH+non-probe Ql (Nph) Not detected Not Detected [facility] FLUBV RNA ZACHARIAH+non-probe Ql (Nph) Not detected Not Detected [facility] HCoV 229E RNA ZACHARIAH+non-probe Ql (Nph) Not detected Not Detected [facility] HCoV HKU1 RNA ZACHARIAH+non-probe Ql (Nph) Not detected Not Detected [facility] HCoV NL63 RNA ZACHARIAH+non-probe Ql (Nph) Not detected Not Detected [facility] HCoV OC43 RNA ZACHARIAH+non-probe Ql (Nph) Not detected Not Detected [facility] hMPV RNA ZACHARIAH+non-probe Ql (Nph) Not detected Not Detected [facility] M. pneumoniae DNA ZACHARIAH+non-probe Ql (Nph) Not detected Not Detected [facility] Parainfluenza virus 1 RNA ZACHARIAH+non-probe Ql (Nph) Not detected Not Detected [facility] Parainfluenza virus 2 RNA ZACHARIAH+non-probe Ql (Nph) Not detected Not Detected [facility] Parainfluenza virus 3 RNA ZACHARIAH+non-probe Ql (Nph) Not detected Not Detected [facility] Parainfluenza virus 4 RNA ZACHARIAH+non-probe Ql (Nph) Not detected Not Detected [facility] Rhinovirus+Enteroviru s RNA ZACHARIAH+non-probe Ql (Nph) Not detected Not Detected [facility] RSV RNA ZACHARIAH+non-probe Ql (Nph) Not detected Not Detected [facility] SARS-CoV-2 (COVID-19) RNA ZACHARIAH+non-probe Ql (Nph) Not detected Not Detected [facility] Specimen Description .NASOPHARYNGEAL SWAB [facility] Venous Blood Gaseson 025 Ethan Test NOT APPLICABLE [facility] Comment on above: Performed By: #### C DP, CP, TROPI, BNP #### [facility] [address] [place], [facility] [employer] Operator: Naima Faith MD Body Temp. 37.0 [facility] Comment on above: Performed By: #### C DP, CP, TROPI, BNP #### [facility] [address] [place] [address] [employer] Equipment Operator: Naima Faith MD [facility] 23 [facility] Comment on above: Performed By: #### C DP, CP, TROPI, BNP #### [facility] [address] [place] [address] Dr. [place], [place] [id number] [employer] Operator: Naima Faith MD HCO3 (Bld) [Moles/Vol] 41.4 mmol/L High 24.0-30.0 [facility] Comment on above: Performed By: #### C DP, CP, TROPI, BNP #### [address] [place], [place] [id number] [employer] Operator: Naima Faith MD O2 Device/Flow/% Cannula Normal [facility] Comment on above: Performed By: #### C DP, CP, TROPI, BNP #### [address] [place], [place] [id number] [employer] Operator: Naima Faith MD Oxygen saturation in Blood 59.9 % Low 60.0-85.0 [facility] Comment on above: Performed By: #### C DP, CP, TROPI, BNP #### [address] [place], [place] [id number] [employer] Operator: Naima Faith MD pCO2 82.0 mm Hg Critically high 39-55 [facility] Comment on above: Performed By: #### C DP, CP, TROPI, BNP #### [address] [place], [place] [id number] [employer] Operator: Naima Faith MD Pco2 Adj'd for Temp. 82.0 mmHg High 39.0-55.0 [facility] Comment on above: Performed By: #### C DP, CP, TROPI, BNP #### [address] [place], [place] [id number] [employer] Operator: Naima Faith MD pH (Bld) 7.321 [pH] Normal 7.32-7.42 [facility] Comment on above: Performed By: #### C DP, CP, TROPI, BNP #### [address] [place] [id number] [employer] Operator: Naima Faith MD pH Adjst'd for Temp. 7.321 Normal 7.320-7.420 [facility] Comment on above: Performed By: #### C DP, CP, TROPI, BNP #### [address] [place], [place] [id number] [employer] Operator: Naima Faith MD pO2 35.3 mm Hg Normal 30.0-50.0 [facility] Comment on above: Performed By: #### C DP, CP, TROPI, BNP #### [address] [place], [place] [phone] [employer] Operator: Naima Faith MD pO2 Adj'd for Temp. 35.3 mmHg Normal 30.0-50.0 [facility] Comment on above: Performed By: #### C DP, CP, TROPI, BNP #### [address] [place], [place] [id number] [employer] Operator: Naima Faith MD Positive Base Excess 11.3 mmol/L High 0.0-2.0 [facility] Comment on above: Performed By: #### C DP, CP, TROPI, BNP #### [address] [place], [place] [phone] [employer] Operator: Naima Faith MD Set Rate 1 [facility] Comment on above: Performed By: #### C DP, CP, TROPI, BNP #### [address] [place], [place] [address]283 [employer] Operator: Naima Faith MD Text for Respiratory Called to RN on 02/11/2025 at 09:07 [facility] Comment on above: Performed By: #### C DP, CP, TROPI, BNP #### [address] [place], [place] [id number] [employer] Operator: Naima Faith MD Ethan Test NOT APPLICABLE [facility] Comment on above: Performed By: #### C DP, CP, TROPI, BNP #### [facility] [address] [place], [place] [id number] [employer] Operator: Naima Faith MD Body Temp. 37.0 [facility] Comment on above: Performed By: #### C DP, CP, TROPI, BNP #### [facility] [address] [place], [facility]83 [employer] Operator: Naima Faith MD FIO2 28 [facility] Comment on above: Performed By: #### C DP, CP, TROPI, BNP #### [address] [place], [facility]83 [employer] Operator: Naima Faith MD HCO3 (Bld) [Moles/Vol] 39.8 mmol/L High 24.0-30.0 [facility] Comment on above: Performed By: #### C DP, CP, TROPI, BNP #### [address] [place], [facility]83 [employer] Operator: Naima Faith MD O2 Device/Flow/% BIPAP [facility] Comment on above: Performed By: #### C DP, CP, TROPI, BNP #### [address] [place], [facility]83 [employer] Operator: Naima Faith MD Oxygen saturation in Blood 96.2 % High 60.0-85.0 [facility] Comment on above: Performed By: #### C DP, CP, TROPI, BNP #### [address] [place], [facility]83 [employer] Operator: Naima Faith MD pCO2 76.1 mm Hg Critically high 39-55 [facility] Comment on above: Performed By: #### C DP, CP, TROPI, BNP #### [address] [place], [facility]83 [employer] Operator: Naima Faith MD Pco2 Adj'd for Temp. 76.1 mmHg High 39.0-55.0 [facility] Comment on above: Performed By: #### C DP, CP, TROPI, BNP #### [facility] [address] [place] [address] [address] [place], [place] [id number] [employer] Operator: Naima Faith MD pH (Bld) 7.336 [pH] Normal 7.32-7.42 [facility] Comment on above: Performed By: #### C DP, CP, TROPI, BNP #### [address] [place], [place] [id number] [employer] Operator: Naima Faith MD pH Adjst'd for Temp. 7.336 Normal 7.320-7.420 [facility] Comment on above: Performed By: #### C DP, CP, TROPI, BNP #### [address] [place], [place] [id number] [employer] Operator: Naima Faith MD pO2 92.2 mm Hg High 30.0-50.0 [facility] Comment on above: Performed By: #### C DP, CP, TROPI, BNP #### [address] [place], [place] [id number] [employer] Operator: Naima Faith MD pO2 Adj'd for Temp. 92.2 mmHg High 30.0-50.0 [facility] Comment on above: Performed By: #### C DP, CP, TROPI, BNP #### [address] [place], [place] [id number] [employer] Operator: Naima Faith MD Positive Base Excess 10.4 mmol/L High 0.0-2.0 [facility] Comment on above: Performed By: #### C DP, CP, TROPI, BNP #### [address] [place] [id number] [employer] Operator: Naima Faith MD Text for Respiratory Called to RN on 02/11/2025 at 05:22 [facility] Comment on above: Performed By: #### C DP, CP, TROPI, BNP #### [facility] [address] [place] [address] [employer] Operator: Naima Faith MD Arterial Blood Gaseson 02-10 Ethan Test YES [facility] Comment on above: Performed By: #### C DP, CP, TROPI, BNP #### [facility] [address] [place] [address] [employer] Operator: Naima Faith MD Body Temp. 37.0 [facility] Comment on above: Performed By: #### C DP, CP, TROPI, BNP #### [facility] [address] [place] [address] [employer] Operator: Naima Faith MD FIO2 28 [facility] Comment on above: Performed By: #### C DP, CP, TROPI, BNP #### [facility] [address] [place] [address] [employer] Operator: Naima Faith MD HCO3 (Bld) [Moles/Vol] 43.4 mmol/L High 22-26 [facility] Comment on above: Performed By: #### C DP, CP, TROPI, BNP #### [facility] [address] [place] [address] [employer] Operator: Naima Faith MD O2 Device/Flow/% Cannula [facility] Comment on above: Performed By: #### C DP, CP, TROPI, BNP #### [facility] [address] [place] [address] [employer] Operator: Naima Faith MD Oxygen (Bld) [Partial pressure] 66.6 mm[Hg] Low 80.0-100.0 [facility] Comment on above: Performed By: #### C DP, CP, TROPI, BNP #### [facility] [address] [place], [facility]83 [employer] Operator: Naima Faith MD Oxygen saturation in Blood 92.2 % Low 95-98 [facility] Comment on above: Performed By: #### C DP, CP, TROPI, BNP #### [address] [place], [facility]83 [employer] Operator: Naima Faith MD pCO2 73.5 mmHg Critically high 35-45 [facility] Comment on above: Performed By: #### C DP, CP, TROPI, BNP #### [address] [place], [facility]83 [employer] Operator: Naima Faith MD pCO2 Adj'd for Temp 73.5 Critically high 35.0-45.0 [facility] Comment on above: Performed By: #### C DP, CP, TROPI, BNP #### [address] [place], [facility]83 [employer] Operator: Naima Faith MD pH (Bld) 7.389 [pH] Normal 7.35-7.45 [facility] Comment on above: Performed By: #### C DP, CP, TROPI, BNP #### [address] [place], [place] [address] [employer] Operator: Naima Faith MD pH Adjst'd for Temp. 7.389 Normal 7.350-7.450 [facility] Comment on above: Performed By: #### C DP, CP, TROPI, BNP #### [address] [place], [place] [id number] [employer] Operator: Naima Faith MD pO2 Adjst'd for Temp 66.6 mmHg Low 80.0-100.0 [facility] Comment on above: Performed By: #### C DP, CP, TROPI, BNP #### [facility] [address] [place] [address] [employer] Operator: Naima Faith MD Positive Base Excess 14.4 mmol/L High 0.0-2.0 [facility] Comment on above: Performed By: #### C DP, CP, TROPI, BNP #### [facility] [address] [place] [address] [employer] Operator: Naima Faith MD Site Drawn Left Brachial Artery [facility] Comment on above: Performed By: #### C DP, CP, TROPI, BNP #### [facility] [address] [place] [address] [employer] Operator: Naima Faith MD Text for Respiratory Called to PROVIDER on 02/10/2025 at 21:02 [facility] Comment on above: Performed By: #### C DP, CP, TROPI, BNP #### [address] [place] [address] [employer] Operator: Naima Faith MD Blood Gas, Arterialon 2024 Arterial patency Wrist artery --pre arterial puncture YES [facility] Body site Left Brachial Artery [facility] HCO3 (Bld) [Moles/Vol] 43.4 mmol/L High 22 - 26 mmol/L [facility] Interpretation and review of laboratory results Abnormal [facility] Oxygen gas flow Oxygen delivery system Cannula [facility] Oxygen saturation in Blood 92.2 % Low 95 - 98 % [facility] Oxygen/Inspired gas Respiratory system --on ventilator 28 [facility] pCO2, Art, Temp Adj 73.5 Critically high 35.0 - 45.0 [facility] pCO2, Arterial 73.5 Critically high [facility] pH, Art, Temp Adj 7.389 7.350 - 7.450 [facility] pH, Arterial 7.389 7.35 - 7.45 [facility] pO2, Art, Temp Adj 66.6 Low Bon [facility] pO2, Arterial 66.6 Low [facility] Positive Base Excess, Art 14.4 mmol/L High 0.0 - 2.0 mmol/L [facility] Text for Respiratory Called to PROVIDER on 02/10/2025 at 21:02 [facility] Blood Gas, Venouson 02-11-20 25 Arterial patency Wrist artery --pre arterial puncture NO [facility] HCO3 (Bld) [Moles/Vol] 38.2 mmol/L High 24.0 - 30.0 mmol/L [facility] Interpretation and review of laboratory results Abnormal [facility] Oxygen gas flow Oxygen delivery system BIPAP [facility] Oxygen saturation in Blood 74 % 60.0 - 85.0 % [facility] Oxygen/Inspired gas Respiratory system --on ventilator 28 [facility] pCO2, Galo 62 Critically high Bon [facility] pCO2, Galo, Temp Adj 62 High Bon S [facility] pH, Galo 7.408 7.32 - 7.42 [facility] pH, Galo, Temp Adj 7.408 7.320 - 7.[address] [facility] PO2, Galo 40.[address] [facility] pO2, [place], Temp Adj 40.2 [facility] Positive Base Excess, Galo 10.8 mmol/L High 0.0 - 2.0 mmol/L [facility] Text for Respiratory Called to PROVIDER on 02/10/2025 at 23:07 [facility] Arterial patency Wrist artery --pre arterial puncture NOT APPLICABLE [facility] HCO3 (Bld) [Moles/Vol] 40.5 mmol/L High 24.0 - 30.0 mmol/L [facility] Interpretation and review of laboratory results Abnormal [facility] Oxygen saturation in Blood 43.3 % Low 60.0 - 85.0 % [facility] Oxygen/Inspired gas Respiratory system --on ventilator [address] [facility] pCO2, Galo 72 Critically high [facility] [employer] pCO2, [place]o, Temp Adj 72 High [facility] pH, Galo 7.368 7.32 - 7.42 [facility] pH, Galo, Temp Adj 7.368 7.320 - 7.420 [facility] PO2, Galo 26 Low [facility] pO2, [place], Temp Adj 26 Low [facility] Positive Base Excess, Galo 11.7 mmol/L High 0.0 - 2.0 mmol/L [facility] Text for Respiratory Called to PROVIDER on 02/10/2025 at 16:28 [facility] Brain Natri. Peptideon 02-10 Natriuretic peptide B (Bld) [Mass/Vol] 147 pg/mL High 0-125 [facility] Comment on above: Performed By: #### C DP, CP, TROPI, BNP #### [facility] [address] [place] [address] [employer] Operator: Naima Faith MD Brain Natriuretic Peptideon 02-10-2025 Natriuretic peptide B (Bld) [Mass/Vol] 147 pg/mL High 0 - 125 pg/mL [facility] CBC with Auto Differentialon 02-10-2025 Basophils (Bld) [#/Vol] 0 10*3/uL [facility] Erythrocyte distribution width (RBC) [Ratio] 18.2 % High 11.8 - 14.4 % [facility] Hematocrit (Bld) [Volume fraction] 53 % High 40.7 - 50.3 % [facility] Hemoglobin (Bld) [Mass/Vol] 14.6 g/dL 13.0 - 17.0 g/dL [facility] Immature granulocytes (Bld) [#/Vol] 0.07 10*3/uL [facility] Interpretation and review of laboratory results Abnormal [facility] Lymphocytes/100 WBC (Bld) 1.28 % [facility] MCH (RBC) [Entitic mass] 24.6 pg Low 25.2 - 33.5 pg [facility] MCHC (RBC) [Mass/Vol] 27.5 g/dL Low 28.4 - 34.8 g/dL [facility] MCV (RBC) [Entitic vol] 89.2 fL 82.6 - 102.9 fL [facility] Monocytes/100 WBC (Bld) 0.5 % [facility] Morphology Gustavo (Bld) [Interp] HYPOCHROMIA PRESENT [facility] Neutrophils/100 WBC (Bld) 73 % High 36 - 65 % [facility] Nucleated RBC/100 WBC (Bld) [Ratio] 0 % 0.0 per 100 WBC [facility] Platelet mean volume (Bld) [Entitic vol] 9.4 fL 8.1 - 13.5 fL [facility] Platelets (Bld) [#/Vol] 162 10*3/uL [facility] RBC (Bld) [#/Vol] 5.94 10*6/uL High 4.21 - 5.7 7 m/uL [facility] Segmented neutrophils/100 WBC (Bld) 5.18 % [facility] WBC other (Bld) [#/Vol] 7.1 [facility] CBC with Diffon 02-10-2025 Abs. Basophil 0.00 k/uL Normal 0.00-0.20 [facility] Comment on above: Performed By: #### C DP, CP, TROPI, BNP #### [address] [place] [address] [employer] Operator: Naima Faith MD Abs.Imm.Granulocyte 0.07 k/uL Normal 0.00-0.30 [facility] Comment on above: Performed By: #### C DP, CP, TROPI, BNP #### [address] [place], [place] [id number] [employer] Operator: Naima Faith MD Abs.Neutrophil (Seg) 5.18 k/uL Normal 1.50-8.10 [facility] Comment on above: Performed By: #### C DP, CP, TROPI, BNP #### [address] [place], [place] [id number] [employer] Operator: Naima Faith MD Basophils/100 WBC (Bld) 0 % Normal 0-2 [facility] Comment on above: Performed By: #### C DP, CP, TROPI, BNP #### [address] [place] [id number] [employer] Operator: Naima Faith MD Eosinophils (Bld) [#/Vol] 0.07 10*3/uL Normal 0.00-0.44 [facility] Comment on above: Performed By: #### C DP, CP, TROPI, BNP #### [address] [place] [id number] [employer] Operator: Naima Faith MD Eosinophils/100 WBC (Bld) 1 % Normal 1-4 [facility] Comment on above: Performed By: #### C DP, CP, TROPI, BNP #### [address] [place] [id number] [employer] Operator: Naima Faith MD Immature granulocytes/100 WBC (Bld) 1 % High 0 [facility] Comment on above: Performed By: #### C DP, CP, TROPI, BNP #### [address] [place] [id number] [employer] Operator: Naima Faith MD Lymphocytes (Bld) [#/Vol] 1.28 10*3/uL Normal 1.10-3.70 [facility] Comment on above: Performed By: #### C DP, CP, TROPI, BNP #### [address] [place], [facility]83 [employer] Operator: Naima Faith MD Lymphocytes/100 WBC (Bld) 18 % Low 24-43 [facility] Comment on above: Performed By: #### C DP, CP, TROPI, BNP #### [address] [place], [place] [phone] [employer] Operator: Naima Faith MD Monocytes (Bld) [#/Vol] 0.50 10*3/uL Normal 0.10-1.20 [facility] Comment on above: Performed By: #### C DP, CP, TROPI, BNP #### [address] [place], [place] [phone] [employer] Operator: Naima Faith MD Monocytes/100 WBC (Bld) 7 % Normal 3-12 [facility] Comment on above: Performed By: #### C DP, CP, TROPI, BNP #### [address] [place], [place] 9373883 [employer] Operator: Naima Faith MD Morphology Gustavo (Bld) [Interp] HYPOCHROMIA Normal [facility] Comment on above: Result Comment: PRES ENT Performed By: #### C DP, CP, TROPI, BNP #### [address] [place], [place] 7761083 [employer] Operator: Naima Faith MD Neutrophil (Seg) 73 % High 36-65 [facility] Comment on above: Performed By: #### C DP, CP, TROPI, BNP #### [address] [place], [place] 0331983 [employer] Operator: Naima Faith MD Erythrocyte distribution width (RBC) [Ratio] 18.2 % High 11.8-14.4 [facility] Comment on above: Performed By: #### C DP, CP, TROPI, BNP #### [address] [place] [address] [employer] Operator: Naima Faith MD Hematocrit (Bld) [Volume fraction] 53.0 % High 40.7-50.3 [facility] Comment on above: Performed By: #### C DP, CP, TROPI, BNP #### [address] [place], [place] [phone] [employer] Operator: Naima Faith MD Hemoglobin (Bld) [Mass/Vol] 14.6 g/dL Normal 13.0-17.0 [facility] Comment on above: Performed By: #### C DP, CP, TROPI, BNP #### [address] [place] [address] [employer] Operator: Naima Faith MD MCH (RBC) [Entitic mass] 24.6 pg Low 25.2-33.5 [facility] Comment on above: Performed By: #### C DP, CP, TROPI, BNP #### [address] [place] [id number] [employer] Operator: Naima Faith MD MCHC (RBC) [Mass/Vol] 27.5 g/dL Low 28.4-34.8 [facility] Comment on above: Performed By: #### C DP, CP, TROPI, BNP #### [address] [place] [address] [employer] Operator: Naima Faith MD MCV (RBC) [Entitic vol] 89.2 fL Normal 82.6-102.9 [facility] Comment on above: Performed By: #### C DP, CP, TROPI, BNP #### [address] [place] [id number] [employer] Operator: Naima Faith MD NRBC Automated 0.0 per 100 WBC Normal 0.0 [facility] Comment on above: Performed By: #### C DP, CP, TROPI, BNP #### [address] [place] [phone] [employer] Operator: Naima Faith MD Platelet mean volume (Bld) [Entitic vol] 9.4 fL Normal 8.1-13.5 [facility] Comment on above: Performed By: #### C DP, CP, TROPI, BNP #### [address] [place] [address] [employer] Operator: Naima Faith MD Platelets (Bld) [#/Vol] 162 10*3/uL Normal 138-453 [facility] Comment on above: Performed By: #### C DP, CP, TROPI, BNP #### [address] [place] [address] [employer] Operator: Naima Faith MD RBC (Bld) [#/Vol] 5.94 10*6/uL High 4.21-5.77 [facility] Comment on above: Performed By: #### C DP, CP, TROPI, BNP #### [address] [place], [place] [phone] [employer] Operator: Naima Faith MD WBC (Bld) [#/Vol] 7.1 10*3/uL Normal 3.5-11.3 [facility] Comment on above: Performed By: #### C DP, CP, TROPI, BNP #### [address] [place], [facility]83 [employer] Operator: Naima Faith MD CT CHEST PULMONARY EMBOLISM W CONTRASTon 02-10-2025 Radiology Study observation (narrative) Jean Paul Delgadillo [facility] Comp Metabolic Profon 2024 Albumin [Mass/Vol] 4.3 g/dL Normal 3.5-5.2 [facility] Comment on above: Performed By: #### C DP, CP, TROPI, BNP #### [address] [place], [facility] ( [employer] Operator: Naima Faith MD Albumin/Glob Ratio 1.8 Normal 1.0-2.5 [facility] Comment on above: Performed By: #### C DP, CP, TROPI, BNP #### [address] [place] [address] [employer] Operator: Naima Faith MD Alkaline Phos 96 U/L Normal 40-129 [facility] Comment on above: Performed By: #### C DP, CP, TROPI, BNP #### [address] [place] [address] [place], [place] [phone] [employer] Operator: Naima Faith MD ALT [Catalytic activity/Vol] 21 U/L Normal 10-50 [facility] Comment on above: Performed By: #### C DP, CP, TROPI, BNP #### [facility] [address] [place], [place] [phone] [employer] Operator: Naima Faith MD Anion gap [Moles/Vol] 8 mmol/L Low 9-16 [facility] Comment on above: Performed By: #### C DP, CP, TROPI, BNP #### [address] [place], [place] 1299683 [employer] Operator: Naima Faith MD AST [Catalytic activity/Vol] 24 U/L Normal 10-50 [facility] Comment on above: Performed By: #### C DP, CP, TROPI, BNP #### [facility] [address] [place] [address] Dr[place], [place] [phone] [employer] Operator: Naima Faith MD Bilirubin [Mass/Vol] 0.7 mg/dL Normal 0.00-1.20 [facility] Comment on above: Performed By: #### C DP, CP, TROPI, BNP #### [address] [place], [place] 2114383 [employer] Operator: Naima Faith MD BUN/CRE Ratio 28 High 9-20 [facility] Comment on above: Performed By: #### C DP, CP, TROPI, BNP #### [facility] [address] [place] [address] Dr. [place], [place] [phone] [employer] Operator: Naima Faith MD Calcium [Mass/Vol] 9.5 mg/dL Normal 8.6-10.4 [facility] Comment on above: Performed By: #### C DP, CP, TROPI, BNP #### [facility] [address] [place] [address] Dr[address] [place], [place] [phone] [employer] Operator: Naima Faith MD Chloride [Moles/Vol] 91 mmol/L Low 98-107 [facility] Comment on above: Performed By: #### C DP, CP, TROPI, BNP #### [facility] [address] [place] [address] [employer] Operator: Naima Faith MD CO2 [Moles/Vol] 41 mmol/L Critically high 20-31 [facility] Comment on above: Performed By: #### C DP, CP, TROPI, BNP #### [facility] [address] [place] [address] [employer] Operator: Naima Faith MD Creatinine [Mass/Vol] 0.5 mg/dL Low 0.70-1.20 [facility] Comment on above: Performed By: #### C DP, CP, TROPI, BNP #### [facility] [address] [place] [address] [employer] Operator: Naima Faith MD GFR/1.73 sq M.predicted among non-blacks MDRD (S/P/Bld) [Vol rate/Area] mL/min/{1.73_m2} Normal >60 [facility] Comment on above: Result Comment: These results [...] #### C DP, CP, TROPI, BNP #### [facility] [address] [place] [address] [employer] Operator: Naima Faith MD Glucose [Mass/Vol] 182 mg/dL High 74-99 [facility] Comment on above: Performed By: #### C DP, CP, TROPI, BNP #### [facility] [address] [place] [address] [place] [address] [employer] Operator: Naima Faith MD Potassium [Moles/Vol] 4.6 mmol/L Normal 3.7-5.3 [facility] Comment on above: Performed By: #### C DP, CP, TROPI, BNP #### [address] [place] [address] [employer] Operator: Naima Faith MD Protein [Mass/Vol] 6.7 g/dL Normal 6.6-8.7 [facility] Comment on above: Performed By: #### C DP, CP, TROPI, BNP #### [address] [place] [address] [employer] Operator: Naima Faith MD Sodium [Moles/Vol] 140 mmol/L Normal 136-145 [facility] Comment on above: Performed By: #### C DP, CP, TROPI, BNP #### [address] [place] [address] [employer] Operator: Naima Faith MD Urea nitrogen [Mass/Vol] 14 mg/dL Normal 8-23 [facility] Comment on above: Performed By: #### C DP, CP, TROPI, BNP #### [address] [place] [address] [employer] Operator: Naima Faith MD Comprehensive Metabolic Pane [facility] 02-10-2025 Albumin [Mass/Vol] 4.3 g/dL 3.5 - 5.2 g/dL [facility] Albumin/Globulin [Mass ratio] 1.8 {ratio} 1.0 - 2.5 [facility] ALP [Catalytic activity/Vol] 96 U/L 40 - 129 U/L [facility] ALT [Catalytic activity/Vol] 21 U/L 10 - 50 U/L [facility] Anion gap [Moles/Vol] 8 mmol/L Low 9 - 16 mmol/L [facility] AST [Catalytic activity/Vol] 24 U/L 10 - 50 U/L [facility] Bilirubin [Mass/Vol] 0.7 mg/dL 0.00 - 1.20 mg/dL [facility] Calcium [Mass/Vol] 9.5 mg/dL 8.6 - 10. 4 mg/dL [facility] [facility] Chloride [Moles/Vol] 91 mmol/L Low 98 - 10 7 mmol/L [facility] CO2 [Moles/Vol] 41 mmol/L Critically high 20 - 31 mmol/L [facility] Creatinine [Mass/Vol] 0.5 mg/dL Low 0.70 - 1.20 mg/dL [facility] Est, Glom Filt Rate - PINF [facility] Glucose [Mass/Vol] 182 mg/dL High 74 - 99 mg/dL [facility] Potassium [Moles/Vol] 4.6 mmol/L 3.7 - 5.3 mmol/L [facility] Protein [Mass/Vol] 6.7 g/dL 6.6 - 8.7 g/dL [facility] Sodium [Moles/Vol] 140 mmol/L 136 - 145 mmol/L [facility] Urea nitrogen [Mass/Vol] 14 mg/dL 8 - 23 mg/dL [facility] Urea nitrogen/Creatinine [Mass ratio] 28 mg/mg High 9 - 20 [facility] D-Dimer Teston 02-10-2025 D-Dimer Test 0.35 ug/mL FEU Normal 0.00-0.59 [facility] Comment on above: Result Comment: When [...] DVT. Performed By: #### D ADAM #### [facility] [address] [place] [address] [place] [address] [employer] M[employer] Equipment Operator: Naima Faith MD D-Dimer, Quantitativeon 01-15 Fibrin D-dimer FEU (PPP) [Mass/Vol] 0.35 [facility] No Panel Informationon 02-10 Interpretation and review of laboratory results Abnormal [facility] Portable XR Chest AP single viewon 02-10-2025 MHPN RIS CONSOLIDATED PN RIS CONSOLIDATED [facility] Radiology Study observation (narrative) [facility] Portable XR Chest AP single viewOrdered By: Rayray Mares on 02-10-2025 [facility] Work Phone: Resp Viral Panelon Source: .NASOPHARYNGEAL SWAB Normal [facility] Comment on above: Performed By: #### C DP, CP, TROPI, BNP #### [address] [place] [address] [employer] Operator: Naima Faith MD Troponinon 02-10-2025 Interpretation and review of laboratory results Abnormal [facility] Troponin I.cardiac High sensitivity method [Mass/Vol] 131 ng/L Critically high 0 - 22 ng/L [facility] Troponin, High Sens 131 ng/L Critically high 0-22 [facility] Comment on above: Result Comment: High Sensitivity Troponin values cannot be compared with other Troponin methodologies. Performed By: #### C DP, CP, TROPI, BNP #### [facility] [address] [place] [address] [employer] Operator: Naima Faith MD Troponin I.cardiac High sensitivity method [Mass/Vol] 149 ng/L Critically high 0 - 22 ng/L Jean Paul Delgadillo [facility] Troponin, High Sens 149 ng/L Critically high 0-22 [facility] Comment on above: Result Comment: High Sensitivity Troponin values cannot be compared with other Troponin methodologies. Performed By: #### C DP, CP, TROPI, BNP #### [facility] [address] [place], [place] [id number] [employer] Operator: Naima Faith MD Venous Blood Gaseson 025 Ethan Test NO [facility] Comment on above: Performed By: #### C DP, CP, TROPI, BNP #### [address] [place], [place] [id number] [employer] Operator: Naima Faith MD Body Temp. 37.0 [facility] Comment on above: Performed By: #### C DP, CP, TROPI, BNP #### [address] [place], [place] [id number] [employer] Operator: Naima Faith MD [facility] 28 [facility] Comment on above: Performed By: #### C DP, CP, TROPI, BNP #### [facility] [address] [place] [address] [address] [place], [place] [id number] [employer] Operator: Naima Faith MD HCO3 (Bld) [Moles/Vol] 38.2 mmol/L High 24.0-30.0 [facility] Comment on above: Performed By: #### C DP, CP, TROPI, BNP #### [facility] [address] [place] [address] [employer] Molding Equipment Operator: Naima Faith MD O2 Device/Flow/% BIPAP [facility] Comment on above: Performed By: #### C DP, CP, TROPI, BNP #### [address] [place], [place] [id number] [employer] Operator: Naima Faith MD Oxygen saturation in Blood 74.0 % Normal 60.0-85.0 [facility] Comment on above: Performed By: #### C DP, CP, TROPI, BNP #### [address] [place], [place] [phone] [employer] Operator: Naima Faith MD pCO2 62.0 mm Hg Critically high 39-55 [facility] Comment on above: Performed By: #### C DP, CP, TROPI, BNP #### [address] [place], [place] [phone] [employer] Operator: Naima Faith MD Pco2 Adj'd for Temp. 62.0 mmHg High 39.0-55.0 [facility] Comment on above: Performed By: #### C DP, CP, TROPI, BNP #### [address] [place], [place] [phone] [employer] Equipment Operator: Naima Faith MD pH (Bld) 7.408 [pH] Normal 7.32-7.42 [facility] Comment on above: Performed By: #### C DP, CP, TROPI, BNP #### [address] [place], [place] [phone] [employer] Equipment Operator: Naima Faith MD pH Adjst'd for Temp. 7.408 Normal 7.320-7.420 [facility] Comment on above: Performed By: #### C DP, CP, TROPI, BNP #### [address] [place], [place] [phone] [employer] Operator: Naima Faith MD pO2 40.2 mm Hg Normal 30.0-50.0 [facility] Comment on above: Performed By: #### C DP, CP, TROPI, BNP #### [address] [place] [address] L[employer] M[employer] Equipment Operator: Naima Faith MD pO2 Adj'd for Temp. 40.2 mmHg Normal 30.0-50.0 [facility] Comment on above: Performed By: #### C DP, CP, TROPI, BNP #### [facility] [address] [place], [facility]83 [employer] Operator: Naima Faith MD Positive Base Excess 10.8 mmol/L High 0.0-2.0 [facility] Comment on above: Performed By: #### C DP, CP, TROPI, BNP #### [address] [place] [id number] [employer] M[employer] Equipment Operator: Naima Faith MD Text for Respiratory Called to PROVIDER on 02/10/2025 at 23:07 [facility] Comment on above: Performed By: #### C DP, CP, TROPI, BNP #### [address] [place], [facility]83 L[employer] M[employer] Equipment Operator: Naima Faith MD Ethan Test NOT APPLICABLE [facility] Comment on above: Performed By: #### V BG #### [address] [place], [facility]83 L[employer] M[employer] Equipment Operator: aNima Faith MD Body Temp. 37.0 [facility] Comment on above: Performed By: #### V BG #### [facility] [address] [place], [facility] L[employer] Molding Equipment Operator: Naima Faith MD FIO2 21 [facility] Comment on above: Performed By: #### V BG #### [facility] [address] [place], [place] [id number] [employer] M[employer] Equipment Operator: Naima Faith MD HCO3 (Bld) [Moles/Vol] 40.5 mmol/L High 24.0-30.0 [facility] Comment on above: Performed By: #### V BG #### [facility] [address] [place], [place] [id number] [employer] M[employer] Equipment Operator: Naima Faith MD Oxygen saturation in Blood 43.3 % Low 60.0-85.0 [facility] Comment on above: Performed By: #### V BG #### [facility] [address] [place], [place] [phone] L[employer] M[employer] Equipment Operator: Naima Faith MD pCO2 72.0 mm Hg Critically high 39-55 [facility] Comment on above: Performed By: #### V BG #### [facility] [address] [place] [address] L[employer] Molding Equipment Operator: Naima Faith MD Pco2 Adj'd for Temp. 72.0 mmHg High 39.0-55.0 [facility] Comment on above: Performed By: #### V BG #### [facility] [address] [place], [place] [phone] [employer] Equipment Operator: Naima Faith MD pH (Bld) 7.368 [pH] Normal 7.32-7.42 [facility] Comment on above: Performed By: #### V BG #### [address] [place], [place] [phone] [employer] M[employer] Equipment Operator: Naima Faith MD pH Adjst'd for Temp. 7.368 Normal 7.320-7.420 [facility] Comment on above: Performed By: #### V BG #### [facility] [address] [place], [place] [phone] L[employer] M[employer] Equipment Operator: Naima Faith MD pO2 26.0 mm Hg Low 30.0-50.0 [facility] Comment on above: Performed By: #### V BG #### [facility] [address] [place] [address] L[employer] Molding Equipment Operator: Naima Faith MD pO2 Adj'd for Temp. 26.0 mmHg Low 30.0-50.0 [facility] Comment on above: Performed By: #### V BG #### [facility] [address] [place] [address] L[employer] Molding Equipment Operator: Naima Faith MD Positive Base Excess 11.7 mmol/L High 0.0-2.0 [facility] Comment on above: Performed By: #### V BG #### [facility] [address] [place], [place] [phone] [employer] M[employer] Equipment Operator: Naima Faith MD Text for Respiratory Called to PROVIDER on 02/10/2025 at 16:28 Normal [facility] Comment on above: Performed By: #### V BG #### [facility] [address] [place] [address] L[employer] Molding Equipment Operator: Naima Faith MD XR CHEST PORTABLEon 02-11-20 [...] - Fax (authorizing provider) Final result Normal [facility] Lab - Other Lab [facility] Lab - Other Lab Results [id number] .00OTGTIFF Normal [facility] Cardiac echo study Procedure Ordered By: Jaciel Sparrow on 12-16-2024 Aortic Sinus Valsalva 3.3 cm [employer] Phone: Aortic Sinus Valsalva Index 1.59 cm/m2 [employer] Phone: AV Area by Peak Velocity 0.7 cm2 [employer] Phone: AV Area by VTI 0.7 cm2 [employer] Phone: AV Cusp Mmode 0.8 cm [employer] Work Phone: AV Mean Gradient 37 mmHg [employer] Work Phone: AV Mean Velocity 2.9 m/s [employer] Work Phone: AV Peak Gradient 63 mmHg [employer] Work Phone: AV Peak Velocity 4.0 m/s [employer] Work Phone: AV Velocity Ratio 0.18 [facility] [employer] Phone: AV VTI 105.0 cm [employer] Phone: LATOYA/BSA Peak Velocity 0.3 cm2/m2 [employer] Phone: LATOYA/BSA VTI 0.3 cm2/m2 [employer] Phone: Body surface area Derived from formula 2.11 m2 [employer] Phone: E/E' Lateral 8.01 [employer] Phone: EF 3D 56 % [employer] Phone: EF Physician 60 % [employer] Phone: Fractional Shortening 2D 28 % 28 - 44 % [employer] Phone: Interpretation and review of laboratory results Abnormal [employer] Phone: IVSd 1.1 cm Abnormal 0.6 - 1.0 cm [employer] Phone: LV E' Lateral Velocity 7.62 cm/s [employer] Phone: LV EDV A4C 86 mL [employer] Phone: LV EDV Index A4C 41 mL/m2 [employer] Work Phone: LV Ejection Fraction A4C 56 % [employer] Phone: LV ESV A4C 38 mL [employer] Work Phone: LV ESV Index A4C 18 mL/m2 [facility] [employer] Phone: LV Mass 2D 173.6 g 88 - 224 g [employer] Phone: LV Mass 2D Index 83.5 g/m2 49 - 115 g/m2 [employer] Work Phone: LV RWT Ratio 0.56 [employer] Phone: LVIDd 4.3 cm 4.2 - 5.9 cm [employer] Phone: LVIDd Index 2.07 cm/m2 [employer] Phone: LVIDs 3.1 cm [employer] Phone: LVIDs Index 1.49 cm/m2 [employer] Phone: LVOT Area 3.1 cm2 [employer] Phone: LVOT Diameter 2.0 cm [employer] Phone: LVOT Mean Gradient 1 mmHg [employer] Work Phone: LVOT Peak Gradient 2 mmHg [employer] Work Phone: LVOT Peak Velocity 0.7 m/s [employer] Phone: LVOT Stroke Volume Index 24.3 mL/m2 [employer] Phone: LVOT SV 50.6 ml [employer] Phone: LVOT VTI 16.1 cm [employer] Phone: LVOT:AV VTI Index 0.15 [employer] Phone: LVPWd 1.2 cm Abnormal 0.6 - 1.0 cm [employer] Work Phone: MV A Velocity 0.74 m/s [employer] Work Phone: MV E Velocity 0.61 m/s [employer] Work Phone: MV E Wave Deceleration Time 209.0 ms [employer] Work Phone: MV E/A 0.82 [employer] Work Phone: PV Max Velocity 0.9 m/s Jean Paul Henryou [employer] Work Phone: PV Peak Gradient 3 mmHg Jean Paul Henryo [employer] Work Phone: [employer] Phone: Cardiac echo study Procedure on 12-16-2024 [...] quality: technically difficult. No contrast was given. [facility] Radiology Study observation (narrative) [facility] Outside Recordson 10-03-2024 Outside Records [id number]. [facility] - Other Lab Results [id number]. [facility] 07-23-2024 Outside Records [id number] [facility] Patient Provided Health Data on 04-26-2024 Patient Provided Health Data [id number] [facility] B-Type Natriuretic Peptideon 06-20-2023 Natriuretic peptide B (Bld) [Mass/Vol] 14.0 pg/mL Normal 5-100 [facility] Comment on above: Result Comment: PERF ORMED BY: [place] [address] PATHOLOGIST RESEARCH EXECUTIVE LUIS KHANNA M.D. Performed By: #### P TT, BNP, BMP, PT, HS TROP, HEPATIC, CK, CBC #### [address] Basic Metabolic Panelon Anion gap [Moles/Vol] 11.4 mmol/L Normal 6.0-15.0 [facility] Comment on above: Performed By: #### P TT, BNP, BMP, PT, HS TROP, HEPATIC, CK, CBC #### [place] [address] Calcium [Mass/Vol] 9.3 mg/dL Normal 8.6-10.3 [facility] Comment on above: Performed By: #### P TT, BNP, BMP, PT, HS TROP, HEPATIC, CK, CBC #### [place] [address] Chloride [Moles/Vol] 97 mmol/L Low 98-107 [facility] Comment on above: Performed By: #### P TT, BNP, BMP, PT, HS TROP, HEPATIC, CK, CBC #### [address] CO2 [Moles/Vol] 35.5 mmol/L High 21.0-31.0 [facility] Comment on above: Performed By: #### P TT, BNP, BMP, PT, HS TROP, HEPATIC, CK, CBC #### [address] Creatinine [Mass/Vol] 0.46 mg/dL Low 0.70-1.30 [facility] Comment on above: Performed By: #### P TT, BNP, BMP, PT, HS TROP, HEPATIC, CK, CBC #### [address] Creatinine Clr Calc Pharmacy 95.70 [facility] Comment on above: Result Comment: PERF ORMED BY: [place] [address] PATHOLOGIST RESEARCH EXECUTIVE LUIS KHANNA M.D. Performed By: #### P TT, BNP, BMP, PT, HS TROP, HEPATIC, CK, CBC #### [address] GFR/1.73 sq M.predicted MDRD (S/P/Bld) [Vol rate/Area] mL/min/{1.73_m2} [facility] Comment on above: Performed By: #### P TT, BNP, BMP, PT, HS TROP, HEPATIC, CK, CBC #### [place] [id number] [place] Glucose [Mass/Vol] 225 mg/dL High 70-100 [facility] Comment on above: Result Comment: Formerly named [facility] Glucose Reference Range is dependent on time and content of last meal. Glucose of more than 200 mg/dL in a nonstressed, ambulatory subject supports the diagnosis of Diabetes Mellitus. ADA recommended reference range Performed By: #### P TT, BNP, BMP, PT, HS TROP, HEPATIC, CK, CBC #### [address] Potassium [Moles/Vol] 3.9 mmol/L Normal 3.5-5.1 [facility] Comment on above: Performed By: #### P TT, BNP, BMP, PT, HS TROP, HEPATIC, CK, CBC #### [address] Sodium [Moles/Vol] 140 mmol/L Normal 136-145 [facility] Comment on above: Performed By: #### P TT, BNP, BMP, PT, HS TROP, HEPATIC, CK, CBC #### [address] Urea nitrogen [Mass/Vol] 15 mg/dL Normal 7-25 [facility] Comment on above: Performed By: #### P TT, BNP, BMP, PT, HS TROP, HEPATIC, CK, CBC #### [address] Complete Blood Count Auto Di ffon 06-20-2023 Basophils (Bld) [#/Vol] 0.1 10*3/uL Normal 0.0-0.2 [facility] Comment on above: Result Comment: PERF ORMED BY: [place] [address] PATHOLOGIST RESEARCH EXECUTIVE LUIS KHANNA M.D. Performed By: #### P TT, BNP, BMP, PT, HS TROP, HEPATIC, CK, CBC #### [address] Basophils/100 WBC (Bld) 0.6 % Normal . [facility] Comment on above: Performed By: #### P TT, BNP, BMP, PT, HS TROP, HEPATIC, CK, CBC #### [address] Eosinophils (Bld) [#/Vol] 0.1 10*3/uL Normal 0.0-0.45 [facility] Comment on above: Performed By: #### P TT, BNP, BMP, PT, HS TROP, HEPATIC, CK, CBC #### [address] Eosinophils/100 WBC (Bld) 0.7 % Normal . [facility] Comment on above: Performed By: #### P TT, BNP, BMP, PT, HS TROP, HEPATIC, CK, CBC #### [address] Erythrocyte distribution width (RBC) [Ratio] 15.7 % High 12.0-14.8 [facility] Comment on above: Performed By: #### P TT, BNP, BMP, PT, HS TROP, HEPATIC, CK, CBC #### [address] Hematocrit (Bld) [Volume fraction] 44.3 % Normal 38.8-50.0 [facility] Comment on above: Performed By: #### P TT, BNP, BMP, PT, HS TROP, HEPATIC, CK, CBC #### [address] Hemoglobin (Bld) [Mass/Vol] 14.2 g/dL Normal 13.0-17.0 [facility] Comment on above: Performed By: #### P TT, BNP, BMP, PT, HS TROP, HEPATIC, CK, CBC #### [address] Lymphocytes (Bld) [#/Vol] 1.5 10*3/uL Normal 1.00-4.8 [facility] Comment on above: Performed By: #### P TT, BNP, BMP, PT, HS TROP, HEPATIC, CK, CBC #### [address] Lymphocytes/100 WBC (Bld) 15.8 % Normal . [facility] Comment on above: Performed By: #### P TT, BNP, BMP, PT, HS TROP, HEPATIC, CK, CBC #### [address] MCH (RBC) [Entitic mass] 30.2 pg Normal 27.5-35.2 [facility] Comment on above: Performed By: #### P TT, BNP, BMP, PT, HS TROP, HEPATIC, CK, CBC #### [address] MCV (RBC) [Entitic vol] 94.3 fL Normal 83.5-101 [facility] Comment on above: Performed By: #### P TT, BNP, BMP, PT, HS TROP, HEPATIC, CK, CBC #### [address] Mean Corpuscular HGB Conc 32.1 g/dL Low 32.5-35.6 [facility] Comment on above: Performed By: #### P TT, BNP, BMP, PT, HS TROP, HEPATIC, CK, CBC #### [address] Monocytes (Bld) [#/Vol] 0.6 10*3/uL Normal 0.0-0.8 [facility] Comment on above: Performed By: #### P TT, BNP, BMP, PT, HS TROP, HEPATIC, CK, CBC #### [address] Monocytes/100 WBC (Bld) 18.00 % Normal 0.00-20.00 [facility] Comment on above: Performed By: #### P TT, BNP, BMP, PT, HS TROP, HEPATIC, CK, CBC #### [address] Monocytes/100 WBC (Bld) 6.2 % Normal . [facility] Comment on above: Performed By: #### P TT, BNP, BMP, PT, HS TROP, HEPATIC, CK, CBC #### [address] [place] [address] [place] Neutrophils (Bld) [#/Vol] 7.1 10*3/uL Normal 1.8-7.7 [facility] Comment on above: Performed By: #### P TT, BNP, BMP, PT, HS TROP, HEPATIC, CK, CBC #### [place] [address] Neutrophils/100 WBC (Bld) 76.7 % Normal . [facility] Comment on above: Performed By: #### P TT, BNP, BMP, PT, HS TROP, HEPATIC, CK, CBC #### [place] [address] NRBC% 0.1 /100{WBC} Normal 0-0.5 [facility] Comment on above: Performed By: #### P TT, BNP, BMP, PT, HS TROP, HEPATIC, CK, CBC #### [address] Platelet mean volume (Bld) [Entitic vol] 8.4 fL Normal 6.6-10.1 [facility] Comment on above: Performed By: #### P TT, BNP, BMP, PT, HS TROP, HEPATIC, CK, CBC #### [address] Platelets (Bld) [#/Vol] 260 10*3/uL Normal 150-450 [facility] Comment on above: Performed By: #### P TT, BNP, BMP, PT, HS TROP, HEPATIC, CK, CBC #### [address] RBC (Bld) [#/Vol] 4.70 10*6/uL Normal 3.90-5.60 [facility] Comment on above: Performed By: #### P TT, BNP, BMP, PT, HS TROP, HEPATIC, CK, CBC #### [address] WBC (Bld) [#/Vol] 9.3 10*3/uL Normal 4.1-10.5 [facility] Comment on above: Performed By: #### P TT, BNP, BMP, PT, HS TROP, HEPATIC, CK, CBC #### [facility] [address] [place] [address] Creatine Kinaseon 06-20-2023 CK [Catalytic activity/Vol] 76 U/L Normal 30-223 [facility] Comment on above: Performed By: #### P TT, BNP, BMP, PT, HS TROP, HEPATIC, CK, CBC #### [facility] [address] ECG 12 lead ECGon 06-20-2023 ECG 12 lead ECG [facility] [place] [address] [place] [address] Electrocardiograph Report Signed Patient: Evgeny Delgado MR#: [id number] : 1955 Acct:[id number] Age/Sex: 68 / M ADM Date: 06/20/23 Loc: ER Room: Type: [facility] ER Attending Dr: Ordering Provider: Triston Perez [...] ECGs available Confirmed by Triston Perez DO ([id number]) on 06/20/2023 6:51:22 PM Referred By: Electronically Signed By:Triston Perez DO Transcribed By: MUS Signed By Triston Perez DO 3 [phone] [facility] Hepatic Panelon 06-20-2023 Albumin [Mass/Vol] 3.8 g/dL Normal 3.5-5.7 [facility] Comment on above: Performed By: #### P TT, BNP, BMP, PT, HS TROP, HEPATIC, CK, CBC #### [place] [address] Albumin/Globulin [Mass ratio] 1.4 {ratio} Normal [facility] Comment on above: Performed By: #### P TT, BNP, BMP, PT, HS TROP, HEPATIC, CK, CBC #### [address] ALP [Catalytic activity/Vol] 84 U/L Normal 34-104 [facility] Comment on above: Performed By: #### P TT, BNP, BMP, PT, HS TROP, HEPATIC, CK, CBC #### [address] ALT [Catalytic activity/Vol] 21 U/L Normal 7-52 [facility] Comment on above: Performed By: #### P TT, BNP, BMP, PT, HS TROP, HEPATIC, CK, CBC #### [address] AST [Catalytic activity/Vol] 20 U/L Normal 13-39 [facility] Comment on above: Performed By: #### P TT, BNP, BMP, PT, HS TROP, HEPATIC, CK, CBC #### [address] Bilirubin [Mass/Vol] 0.7 mg/dL Normal 0.3-1.0 [facility] Comment on above: Performed By: #### P TT, BNP, BMP, PT, HS TROP, HEPATIC, CK, CBC #### [address] Bilirubin,Indirect 0.5 mg/dL Normal [facility] Comment on above: Performed By: #### P TT, BNP, BMP, PT, HS TROP, HEPATIC, CK, CBC #### [address] Bilirubin.indirect [Mass/Vol] 0.20 mg/dL High 0.03-0.18 [facility] Comment on above: Performed By: #### P TT, BNP, BMP, PT, HS TROP, HEPATIC, CK, CBC #### [place] [address] Globulin (S) [Mass/Vol] 2.7 g/dL Normal [facility] Comment on above: Performed By: #### P TT, BNP, BMP, PT, HS TROP, HEPATIC, CK, CBC #### [place] [address] Protein [Mass/Vol] 6.5 g/dL Normal 6.4-8.9 [facility] Comment on above: Performed By: #### P TT, BNP, BMP, PT, HS TROP, HEPATIC, CK, CBC #### [address] Partial Thromboplastin Timeo n 06-20-2023 aPTT Coag (Bld) [Time] 28.3 s Normal 25.1-36.5 [facility] Comment on above: Result Comment: PERF ORMED BY: [place] [address] PATHOLOGIST RESEARCH EXECUTIVE LUIS KHANNA M.D. Performed By: #### P TT, BNP, BMP, PT, HS TROP, HEPATIC, CK, CBC #### [address] Prothrombin Time INRon 06-20 INR Coag (PPP) [Relative time] 1.0 {INR} Normal [facility] Comment on above: Result Comment: INR [...] PT, HS TROP, HEPATIC, CK, CBC #### [address] PT Coag (PPP) [Time] 11.9 s Normal 9.0-12.9 [facility] Comment on above: Performed By: #### P TT, BNP, BMP, PT, HS TROP, HEPATIC, CK, CBC #### [facility] [address] Troponin I High Sensitivityo n 06-20-2023 Troponin I High Sensitivity 6.9 pg/mL Normal 0.0-20.0 [facility] Comment on above: Result Comment: PERF ORMED BY: [place] [address] PATHOLOGIST RESEARCH EXECUTIVE LUIS KHANNA M.D. Performed By: #### P TT, BNP, BMP, PT, HS TROP, HEPATIC, CK, CBC #### [facility] [address] [place] [address] XR chest 1V portableon 06-20 XR chest 1V portable [place] [facility] [place] [address] [place] [address] XRay Report Signed Patient: Evgeny Delgado MR#: [id number] : 1955 Acct:[id number] Age/Sex: 68 / M ADM Date: 06/20/23 [...] Manuel Jr., D.OIndy06/20/2023 5:23 PM Dictation Location: [place] [address] Transcribed By: [facility] 06/20/231722 Dictated By: Quinn Manuel Jr, DO 06/20/231721 Signed By: 06/20/231722 Normal [facility] PULMONARY FUNCTIONon 023 PULMONARY FUNCTION [address] [place] [address] PULMONARY FUNCTION PATIENT NAME: EVGENY DELGADO : 1955 MED REC NO: [id number] ROOM: 2007 ACCOUNT NO: [id number] ADMIT DATE: 04/09/2023 PROVIDER: Sumanth Perkins DATE [...] is 1.64 liters. SUMANTH PERKINS /[email or web address] Doc#: [id number] CC: Normal [facility] Basic Metab w/rfx MGon 04-20 Anion gap [Moles/Vol] 10 mmol/L Normal 9-17 [facility] Comment on above: Performed By: #### Cooper ADAM, HEPXA #### [facility] [address] [place] [address] [phone] [employer] Operator: Reggie Chavez MD Calcium [Mass/Vol] 9.0 mg/dL Normal 8.6-10.4 [facility] Comment on above: Performed By: #### D ADAM, HEPXA #### [facility] [address] [place] [address] [employer] Equipment Operator: Reggie Chavez MD Chloride [Moles/Vol] 93 mmol/L Low 98-107 [facility] Comment on above: Performed By: #### D ADAM, HEPXA #### [facility] [address] [place] [address] [phone] [employer] Operator: Reggie Chavez MD CO2 [Moles/Vol] 30 mmol/L Normal 20-31 [facility] Comment on above: Performed By: #### Cooper ADAM, HEPXA #### [facility] [address] [place] [address] [phone] [employer] Operator: Reggie Chavez MD Creatinine [Mass/Vol] 0.45 mg/dL Low 0.70-1.20 [facility] Comment on above: Performed By: #### Cooper ADAM, HEPXA #### [facility] [address] [place] [address] [employer] Operator: Reggie Chavez MD GFR/1.73 sq M.predicted among non-blacks MDRD (S/P/Bld) [Vol rate/Area] mL/min/{1.73_m2} Normal >60 [facility] Comment on above: Result Comment: These [...] Performed By: #### Cooper ADAM, HEPXA #### [facility] [address] [place] [address] [phone] [employer] Operator: Reggie Chavez MD Glucose [Mass/Vol] 161 mg/dL High 70-99 [facility] Comment on above: Performed By: #### Cooper ADAM, HEPXA #### [facility] [address] [place] [address] [employer] Operator: Reggie Chavez MD Potassium [Moles/Vol] 5.5 mmol/L High 3.7-5.3 [facility] Comment on above: Result Comment: SPEC IMEN MODERATELY HEMOLYZED, RESULTS MAY BE ADVERSELY AFFECTED Performed By: #### Cooper ADAM, HEPXA #### [facility] [address] [place] [address] [employer] Operator: Reggie Chavez MD Sodium [Moles/Vol] 133 mmol/L Low 135-144 [facility] Comment on above: Performed By: #### D ADAM, HEPXA #### [address] [address] [employer] Operator: Reggie Chavez MD Urea nitrogen [Mass/Vol] 20 mg/dL Normal 8-23 [facility] Comment on above: Performed By: #### D ADAM, HEPXA #### [address] [address] [employer] Operator: Reggie Chavez MD CBC with Diffon 04-20-2023 Abs. Basophil 0.04 k/uL Normal 0.00-0.20 [facility] Comment on above: Performed By: #### Cooper ADAM, HEPXA #### [address] [address] [employer] Operator: Reggie Chavez MD Abs.Imm.Granulocyte 0.12 k/uL Normal 0.00-0.30 [facility] Comment on above: Performed By: #### D ADAM, HEPXA #### [address] [address] [employer] Operator: Reggie Chavez MD Abs.Neutrophil (Seg) 6.32 k/uL Normal 1.50-8.10 [facility] Comment on above: Performed By: #### D ADAM, HEPXA #### [address] [address] [employer] Operator: Reggie Chavez MD Basophils/100 WBC (Bld) 0 % Normal 0-2 [facility] Comment on above: Performed By: #### D ADAM, HEPXA #### [address] [address] [employer] Operator: Reggie Chavez MD Eosinophils (Bld) [#/Vol] 0.13 10*3/uL Normal 0.00-0.44 [facility] Comment on above: Performed By: #### D ADAM, HEPXA #### [facility] [address] [place] [address] [employer] Operator: Reggie Chavez MD Eosinophils/100 WBC (Bld) 1 % Normal 1-4 [facility] Comment on above: Performed By: #### D ADAM, HEPXA #### [facility] [address] [place] [address] [employer] Operator: Reggie Chavez MD Erythrocyte distribution width (RBC) [Ratio] 13.4 % Normal 11.8-14.4 [facility] Comment on above: Performed By: #### D ADAM, HEPXA #### [address] [address] [employer] Operator: Reggie Chavez MD Hematocrit (Bld) [Volume fraction] 38.6 % Low 40.7-50.3 [facility] Comment on above: Performed By: #### D ADAM, HEPXA #### [address] [address] [employer] Operator: Reggie Chavez MD Hemoglobin (Bld) [Mass/Vol] 12.8 g/dL Low 13.0-17.0 [facility] Comment on above: Performed By: #### D ADAM, HEPXA #### [facility] [address] [place] [address] [employer] Operator: Reggie Chavez MD Immature granulocytes/100 WBC (Bld) 1 % High 0 [facility] Comment on above: Performed By: #### D ADAM, HEPXA #### [facility] [address] [place] [address] L[employer] Operator: Reggie Chavez MD Lymphocytes (Bld) [#/Vol] 1.66 10*3/uL Normal 1.10-3.70 [facility] Comment on above: Performed By: #### D ADAM, HEPXA #### [address] [address] [employer] Operator: Reggie Chavez MD Lymphocytes/100 WBC (Bld) 18 % Low 24-43 [facility] Comment on above: Performed By: #### D ADAM, HEPXA #### [address] [address] [employer] Operator: Reggie Chavez MD MCH (RBC) [Entitic mass] 33.0 pg Normal 25.2-33.5 [facility] Comment on above: Performed By: #### Cooper ADAM, HEPXA #### [address] [address] [employer] Operator: Reggie Chavez MD MCHC (RBC) [Mass/Vol] 33.2 g/dL Normal 28.4-34.8 [facility] Comment on above: Performed By: #### Cooper ADAM, HEPXA #### [address] [address] [employer] Operator: Reggie Chavez MD MCV (RBC) [Entitic vol] 99.5 fL Normal 82.6-102.9 [facility] Comment on above: Performed By: #### Cooper ADAM, HEPXA #### [address] [address] [employer] Operator: Reggie Chavez MD Monocytes (Bld) [#/Vol] 0.73 10*3/uL Normal 0.10-1.20 [facility] Comment on above: Performed By: #### D ADAM, HEPXA #### [address] [address] [employer] Operator: Reggie Chavez MD Monocytes/100 WBC (Bld) 8 % Normal 3-12 [facility] Comment on above: Performed By: #### D ADAM, HEPXA #### [address] [address] [employer] Operator: Reggie Chavez MD Neutrophil (Seg) 70 % High 36-65 [facility] Comment on above: Performed By: #### D ADAM, HEPXA #### [address] [address] [employer] Operator: Reggie Chavez MD NRBC Automated 0.0 per 100 WBC Normal 0.0 [facility] Comment on above: Performed By: #### D ADAM, HEPXA #### [address] [address] [employer] Operator: Reggie Chavez MD Platelet mean volume (Bld) [Entitic vol] 11.1 fL Normal 8.1-13.5 [facility] Comment on above: Performed By: #### D ADAM, HEPXA #### [address] [address] [employer] Operator: Reggie Chavez MD Platelets (Bld) [#/Vol] 192 10*3/uL Normal 138-453 [facility] Comment on above: Performed By: #### Cooper ADAM, HEPXA #### [address] [address] [employer] Operator: Reggie Chavez MD RBC (Bld) [#/Vol] 3.88 10*6/uL Low 4.21-5.77 [facility] Comment on above: Performed By: #### D ADAM, HEPXA #### [address] [address] [employer] Operator: Reggie Chavez MD WBC (Bld) [#/Vol] 9.0 10*3/uL Normal 3.5-11.3 [facility] Comment on above: Performed By: #### D ADAM, HEPXA #### [facility] [address] [place] [address] [employer] Equipment Operator: Reggie Chavez MD K (Potassium)/rfx MGon 04-20 Potassium [Moles/Vol] 4.5 mmol/L Normal 3.7-5.3 [facility] Comment on above: Performed By: #### R EJEC #### [facility] [address] [place] [address] [employer] Operator: Reggie Chavez MD Basic Metab w/rfx MGon 04-19 Anion gap [Moles/Vol] 13 mmol/L Normal 9-17 [facility] Comment on above: Performed By: #### U JV, UAX #### [address] [address] [employer] Equipment Operator: Reggie Chavez MD Calcium [Mass/Vol] 9.5 mg/dL Normal 8.6-10.4 [facility] Comment on above: Performed By: #### U JV, UAX #### [address] [address] [employer] Equipment Operator: Reggie Chavez MD Chloride [Moles/Vol] 93 mmol/L Low 98-107 [facility] Comment on above: Performed By: #### U JV, UAX #### [facility] [address] [place] [address] [employer] Equipment Operator: Reggie Chavez MD CO2 [Moles/Vol] 29 mmol/L Normal 20-31 [facility] Comment on above: Performed By: #### U JV, UAX #### [facility] [address] [place] [address] [employer] Operator: Reggie Chavez MD Creatinine [Mass/Vol] 0.51 mg/dL Low 0.70-1.20 [facility] Comment on above: Performed By: #### U JV, UAX #### [facility] [address] [place] [address] [employer] Operator: Reggie Chavez MD GFR/1.73 sq M.predicted among non-blacks MDRD (S/P/Bld) [Vol rate/Area] mL/min/{1.73_m2} Normal >60 [facility] Comment on above: Result Comment: These [...] Performed By: #### U JV, UAX #### [address] [address] L[employer] Equipment Operator: Reggie Chavez MD Glucose [Mass/Vol] 225 mg/dL High 70-99 [facility] Comment on above: Performed By: #### U JV, UAX #### [address] [address] L[employer] Operator: Reggie Chavez MD Potassium [Moles/Vol] 4.4 mmol/L Normal 3.7-5.3 [facility] Comment on above: Performed By: #### U JV, UAX #### [facility] [address] [place] [address] L[employer] Equipment Operator: Reggie Chavez MD Sodium [Moles/Vol] 135 mmol/L Normal 135-144 [facility] Comment on above: Performed By: #### U JV, UAX #### [facility] [address] [place] [address] L[employer] Operator: Reggie Chavez MD Urea nitrogen [Mass/Vol] 17 mg/dL Normal 8-23 [facility] Comment on above: Performed By: #### U JV, UAX #### [facility] [place] [address] [employer] Equipment Operator: Reggie Chavez MD FL ESOPHAGRAMon 04-19-2023 FL ESOPHAGRAM EXAMINATION: DOUBLE CONTRAST ESOPHAGRAM 04/19/2023 1:52 pm TECHNIQUE: Double contrast esophagram was performed with barium and air contrast. FLUOROSCOPY DOSE AND TYPE: Radiation Exposure Index: DAP [id number], COMPARISON: None HISTORY: ORDERING SYSTEM PROVIDED HISTORY: [...] Charly Johnson MD 04/19/23 Final result Normal [facility] XR CHEST PORTABLEon 04-19-20 XR CHEST [...] Venancio Barcenas MD 04/19/23 Final result Normal [facility] Troponinon 04-18-2023 Troponin, High Sens 147 ng/L Critically high 0-22 [facility] Comment on above: Result Comment: High Sensitivity Troponin values cannot be compared with other Troponin methodologies. Previous Alert Value Reported Performed By: #### R EJEC #### [address] [address] [employer] Equipment Operator: Reggie Chavez MD UA w/Reflex Cultureon 2022 Bilirubin, SemiQt,Ur Negative Normal NEG [facility] Comment on above: Performed By: #### U JV, UAX #### [address] [address] [employer] Equipment Operator: Reggie Chavez MD Blood, Urine Negative Normal NEG [facility] Comment on above: Performed By: #### U JV, UAX #### [facility] [address] [place] [address] L[employer] Equipment Operator: Reggie Chavez MD Clarity (U) Clear Normal CLEAR [facility] Comment on above: Performed By: #### U JV, UAX #### [facility] [address] [place] [address] [employer] Operator: Reggie Chavez MD Color (U) Yellow Normal YEL [facility] Comment on above: Performed By: #### U JV, UAX #### [facility] [address] [place] [address] L[employer] Equipment Operator: Reggie Chavez MD Comment Microscopic exam not performed based on chemical results unless requested in Normal [facility] Comment on above: Result Comment: orig inal order. Performed By: #### U JV, UAX #### [facility] [address] [place] [address] L[employer] Equipment Operator: Reggie Chavez MD Glucose Ql (U) Negative Normal NEG [facility] Comment on above: Performed By: #### U JV, UAX #### [facility] [address] [place] [address] L[employer] Equipment Operator: Reggie Chavez MD Ketones Ql (U) Negative Normal NEG [facility] Comment on above: Performed By: #### U JV, UAX #### [address] [address] [employer] Operator: Reggie Chavez MD Leukocyte esterase Test strip Ql (U) Negative Normal NEG [facility] Comment on above: Performed By: #### U JV, UAX #### [address] [address] [employer] Operator: Reggie Chavez MD Nitrite,Ur Negative Normal NEG [facility] Comment on above: Performed By: #### U JV, UAX #### [address] [address] [employer] Equipment Operator: Reggie Chavez MD PH,Ur 7.0 Normal 5.0-8.0 [facility] Comment on above: Performed By: #### U JV, UAX #### [address] [address] [employer] Operator: Reggie Chavez MD Protein Ql (U) Negative Normal NEG [facility] Comment on above: Performed By: #### U JV, UAX #### [address] [address] L[employer] Operator: Reggie Chavez MD Spec. [place],Ur 1.010 Normal 1.005-1.030 [facility] Comment on above: Performed By: #### U JV, UAX #### [address] [address] [employer] Equipment Operator: Reggie Chavez MD Urobilinogen,Ur Normal Normal NORM [facility] Comment on above: Performed By: #### U JV, UAX #### [address] [address] [employer] Operator: Reggie Chavez MD Urinalysis,Microon 3 Casts 0 TO 2 HYALINE Normal 0-8 [facility] Comment on above: Result Comment: Refe rence range defined for non-centrifuged specimen. Performed By: #### U JV, UAX #### [address] [address] [employer] Operator: Reggie Chavez MD Epithelial cells LM Ql (Urine sed) None Normal 0-5 [facility] Comment on above: Performed By: #### U JV, UAX #### [address] [address] [employer] Equipment Operator: Reggie Chavez MD Urine RBC's 0 TO 2 Normal 0-4 [facility] Comment on above: Result Comment: Refe rence range defined for non-centrifuged specimen. Performed By: #### U JV, UAX #### [address] [address] [employer] Equipment Operator: Reggie Chavez MD Urine WBC's None Normal 0-5 [facility] Comment on above: Performed By: #### U JV, UAX #### [address] [address] L[employer] Equipment Operator: Reggie Chavez MD Basic Metabolic Profon 04-17 Anion gap [Moles/Vol] 12 mmol/L Normal 9-17 [facility] Comment on above: Performed By: #### Cooper MEDINA HEPXA #### [address] [address] [employer] Equipment Operator: Reggie Chavez MD Calcium [Mass/Vol] 9.2 mg/dL Normal 8.6-10.4 [facility] Comment on above: Performed By: #### Cooper MEDINA HEPXA #### [address] [address] L[employer] Equipment Operator: Reggie Chavez MD Chloride [Moles/Vol] 97 mmol/L Low 98-107 [facility] Comment on above: Performed By: #### Cooper MEDINA HEPXA #### [facility] [place] [address] L[employer] Equipment Operator: Reggie Chavez MD CO2 [Moles/Vol] 29 mmol/L Normal 20-31 [facility] Comment on above: Performed By: #### Cooper MEDINA, HEPXA #### [facility] [address] [place] [address] L[employer] Equipment Operator: Reggie Chavez MD Creatinine [Mass/Vol] 0.47 mg/dL Low 0.70-1.20 [facility] Comment on above: Performed By: #### Cooper MEDINA HEPXA #### [facility] [address] [place] [address] L[employer] Equipment Operator: Reggie Chavez MD GFR/1.73 sq M.predicted among non-blacks MDRD (S/P/Bld) [Vol rate/Area] mL/min/{1.73_m2} Normal >60 [facility] Comment on above: Result Comment: These [...] Performed By: #### Cooper MEDINA HEPXA #### [facility] [address] [place] [address] L[employer] Equipment Operator: Reggie Chavez MD Glucose [Mass/Vol] 136 mg/dL High 70-99 [facility] Comment on above: Performed By: #### Cooper MEDINA HEPXA #### [facility] [address] [place] [address] L[employer] Equipment Operator: Reggie Chavez MD Potassium [Moles/Vol] 4.8 mmol/L Normal 3.7-5.3 [facility] Comment on above: Performed By: #### D ADAM, HEPXA #### [facility] [address] [place] [address] L[employer] Equipment Operator: Reggie Chavez MD Sodium [Moles/Vol] 138 mmol/L Normal 135-144 [facility] Comment on above: Performed By: #### D ADAM, HEPXA #### [address] [address] [employer] Operator: Reggie Chavez MD Urea nitrogen [Mass/Vol] 16 mg/dL Normal 8-23 [facility] Comment on above: Performed By: #### D ADAM, HEPXA #### [facility] [address] [place] [address] L[employer] Equipment Operator: Reggie Chavez MD CBC with Diffon 04-17-2023 Abs. Basophil 0.04 k/uL Normal 0.00-0.20 [facility] Comment on above: Performed By: #### D ADAM, HEPXA #### [address] [address] L[employer] M[employer] Equipment Operator: Reggie Chavez MD Abs.Imm.Granulocyte 0.10 k/uL Normal 0.00-0.30 [facility] Comment on above: Performed By: #### Cooper ADAM, HEPXA #### [address] [address] L[employer] M[employer] Equipment Operator: Reggie Chavez MD Abs.Neutrophil (Seg) 4.20 k/uL Normal 1.50-8.10 [facility] Comment on above: Performed By: #### D ADAM, HEPXA #### [facility] [address] [place] [address] L[employer] Equipment Operator: Reggie Chavez MD Basophils/100 WBC (Bld) 1 % Normal 0-2 [facility] Comment on above: Performed By: #### D ADAM, HEPXA #### [facility] [address] [place] [address] L[employer] Equipment Operator: Reggie Chavez MD Eosinophils (Bld) [#/Vol] 0.12 10*3/uL Normal 0.00-0.44 [facility] Comment on above: Performed By: #### D ADAM, HEPXA #### [facility] [address] [place] [address] L[employer] Equipment Operator: Reggie Chavez MD Eosinophils/100 WBC (Bld) 2 % Normal 1-4 [facility] Comment on above: Performed By: #### D ADAM, HEPXA #### [address] [address] [employer] Equipment Operator: Reggie Chavez MD Erythrocyte distribution width (RBC) [Ratio] 13.2 % Normal 11.8-14.4 [facility] Comment on above: Performed By: #### D ADAM, HEPXA #### [address] [address] [employer] Equipment Operator: Reggie Chavez MD Hematocrit (Bld) [Volume fraction] 42.0 % Normal 40.7-50.3 [facility] Comment on above: Performed By: #### D ADAM, HEPXA #### [facility] [address] [place] [address] L[employer] Equipment Operator: Reggie Chavez MD Hemoglobin (Bld) [Mass/Vol] 12.9 g/dL Low 13.0-17.0 [facility] Comment on above: Performed By: #### D ADAM, HEPXA #### [address] [address] L[employer] Equipment Operator: Reggie Chavez MD Immature granulocytes/100 WBC (Bld) 2 % High 0 [facility] Comment on above: Performed By: #### D ADAM, HEPXA #### [facility] [address] [place] [address] L[employer] Equipment Operator: Reggie Chavez MD Lymphocytes (Bld) [#/Vol] 1.46 10*3/uL Normal 1.10-3.70 [facility] Comment on above: Performed By: #### Cooper ADAM, HEPXA #### [facility] [place] [address] [employer] Equipment Operator: Reggie Chavez MD Lymphocytes/100 WBC (Bld) 23 % Low 24-43 [facility] Comment on above: Performed By: #### D ADAM, HEPXA #### [facility] [address] [place] [address] L[employer] Equipment Operator: Reggie Chavez MD MCH (RBC) [Entitic mass] 33.2 pg Normal 25.2-33.5 [facility] Comment on above: Performed By: #### Cooper ADAM, HEPXA #### [address] [address] [employer] Equipment Operator: Reggie Chavez MD MCHC (RBC) [Mass/Vol] 30.7 g/dL Normal 28.4-34.8 [facility] Comment on above: Performed By: #### Cooper ADAM, HEPXA #### [address] [address] [employer] Equipment Operator: Reggie Chavez MD MCV (RBC) [Entitic vol] 108.0 fL High 82.6-102.9 [facility] Comment on above: Performed By: #### Cooper ADAM, HEPXA #### [facility] [address] [place] [address] L[employer] Equipment Operator: Reggie Chavez MD Monocytes (Bld) [#/Vol] 0.43 10*3/uL Normal 0.10-1.20 [facility] Comment on above: Performed By: #### Cooper ADAM, HEPXA #### [address] [address] L[employer] Equipment Operator: Reggie Chavez MD Monocytes/100 WBC (Bld) 7 % Normal 3-12 [facility] Comment on above: Performed By: #### Cooper ADAM, HEPXA #### [address] [address] [employer] Equipment Operator: Reggie Chavez MD Neutrophil (Seg) 65 % Normal 36-65 [facility] Comment on above: Performed By: #### D ADAM, HEPXA #### [address] [address] [employer] Equipment Operator: Reggie Chavez MD NRBC Automated 0.0 per 100 WBC Normal 0.0 [facility] Comment on above: Performed By: #### Cooper ADAM, HEPXA #### [address] [address] [employer] Equipment Operator: Reggie Chavez MD Platelet mean volume (Bld) [Entitic vol] 10.4 fL Normal 8.1-13.5 [facility] Comment on above: Performed By: #### Cooper ADAM, HEPXA #### [address] [address] [employer] Equipment Operator: Reggie Chavez MD Platelets (Bld) [#/Vol] 185 10*3/uL Normal 138-453 [facility] Comment on above: Performed By: #### Cooper ADAM, HEPXA #### [address] [address] [employer] Equipment Operator: Reggie Chavez MD RBC (Bld) [#/Vol] 3.89 10*6/uL Low 4.21-5.77 [facility] Comment on above: Performed By: #### D ADAM, HEPXA #### [address] [address] [employer] Equipment Operator: Reggie Chavez MD RBC morphology finding Nom (Bld) MACROCYTOSIS PRESENT Normal [facility] Comment on above: Performed By: #### D ADAM HEPXA #### [facility] [address] [place] [address] [employer] Equipment Operator: Reggie Chavez MD WBC (Bld) [#/Vol] 6.4 10*3/uL Normal 3.5-11.3 [facility] Comment on above: Performed By: #### Cooper MEDINA HEPXA #### [facility] [address] [place] [address] L[employer] M[employer] Equipment Operator: Reggie Chavez MD K (Potassium)on 04-17-2023 Potassium [Moles/Vol] 4.8 mmol/L Normal 3.7-5.3 [facility] Comment on above: Performed By: #### R EJEC #### [address] [address] [employer] Operator: Reggie Chavez MD Magnesiumon 04-17-2023 Magnesium [Mass/Vol] 1.6 mg/dL Normal 1.6-2.6 [facility] Comment on above: Performed By: #### R EJEC #### [facility] [address] [place] [address] [employer] Operator: Reggie Chavez MD Magnesium [Mass/Vol] 1.7 mg/dL Normal 1.6-2.6 [facility] Comment on above: Performed By: #### Cooper MEDINA HEPXA #### [facility] [address] [place] [address] [employer] Operator: Reggie Chavez MD Thyroid Stim. Horm.on 2022 Thyroid Stim. Horm. 1.83 uIU/mL Normal 0.30-5.00 [facility] Comment on above: Performed By: #### R EJEC #### [facility] [address] [place] [address] [employer] Operator: Reggie Chavez MD Troponinon 07-03-2023 Troponin, High Sens 146 ng/L Critically high 0-22 [facility] Comment on above: Result Comment: High Sensitivity Troponin values cannot be compared with other Troponin methodologies. Performed By: #### R EJEC #### [address] [address] [employer] Operator: Reggie Chavez MD Basic Metabolic Profon 04-15 Anion gap [Moles/Vol] 8 mmol/L Low 9-17 [facility] Comment on above: Performed By: #### B C #### [address] [address] [employer] Operator: Reggie Chavez MD Calcium [Mass/Vol] 9.3 mg/dL Normal 8.6-10.4 [facility] Comment on above: Performed By: #### B C #### [address] [address] [employer] Operator: Reggie Chavez MD Chloride [Moles/Vol] 95 mmol/L Low 98-107 [facility] Comment on above: Performed By: #### B C #### [address] [address] [employer] Operator: Reggie Chavez MD CO2 [Moles/Vol] 34 mmol/L High 20-31 [facility] Comment on above: Performed By: #### B C #### [address] [address] [employer] Operator: Reggie Chavez MD Creatinine [Mass/Vol] 0.40 mg/dL Low 0.70-1.20 [facility] Comment on above: Performed By: #### B C #### [address] [address] [employer] Operator: Reggie Chavez MD GFR/1.73 sq M.predicted among non-blacks MDRD (S/P/Bld) [Vol rate/Area] mL/min/{1.73_m2} Normal >60 [facility] Comment on above: Result Comment: These [...] secretion. Performed By: #### B C #### [address] [address] [employer] Operator: Reggie Chavez MD Glucose [Mass/Vol] 141 mg/dL High 70-99 [facility] Comment on above: Performed By: #### B C #### [address] [address] [employer] Operator: Reggie Chavez MD Potassium [Moles/Vol] 4.7 mmol/L Normal 3.7-5.3 [facility] Comment on above: Performed By: #### B C #### [address] [address] [employer] Operator: Reggie Chavez MD Sodium [Moles/Vol] 137 mmol/L Normal 135-144 [facility] Comment on above: Performed By: #### B C #### [address] [address] [employer] Operator: Reggie Chavez MD Urea nitrogen [Mass/Vol] 18 mg/dL Normal 8-23 [facility] Comment on above: Performed By: #### B C #### [address] [address] [employer] Operator: Reggie Chavez MD CBC with Diffon 04-15-2023 Abs. Basophil <0.03 Normal 0.00-0.20 [facility] Comment on above: Performed By: #### B C #### [address] [place] [address] [employer] Operator: Reggie Chavez MD Abs.Imm.Granulocyte 0.08 k/uL Normal 0.00-0.30 [facility] Comment on above: Performed By: #### B C #### [address] [address] [employer] Operator: Reggie Chavez MD Abs.Neutrophil (Seg) 4.31 k/uL Normal 1.50-8.10 [facility] Comment on above: Performed By: #### B C #### [address] [address] [employer] Operator: Reggie Chavez MD Basophils/100 WBC (Bld) 0 % Normal 0-2 [facility] Comment on above: Performed By: #### B C #### [place] [address] [employer] Operator: Reggie Chavez MD Eosinophils (Bld) [#/Vol] 0.09 10*3/uL Normal 0.00-0.44 [facility] Comment on above: Performed By: #### B C #### [address] [address] [employer] Operator: Reggie Chavez MD Eosinophils/100 WBC (Bld) 1 % Normal 1-4 [facility] Comment on above: Performed By: #### B C #### [address] [address] [employer] Operator: Reggie Chavez MD Erythrocyte distribution width (RBC) [Ratio] 13.0 % Normal 11.8-14.4 [facility] Comment on above: Performed By: #### B C #### [address] [address] [employer] Operator: Reggie Chavez MD Hematocrit (Bld) [Volume fraction] 41.5 % Normal 40.7-50.3 [facility] Comment on above: Performed By: #### B C #### [address] [address] [employer] Operator: Reggie Chavez MD Hemoglobin (Bld) [Mass/Vol] 13.1 g/dL Normal 13.0-17.0 [facility] Comment on above: Performed By: #### B C #### [address] [address] [employer] Operator: Reggie Chavez MD Immature granulocytes/100 WBC (Bld) 1 % High 0 [facility] Comment on above: Performed By: #### B C #### [address] [address] [employer] Operator: Reggie Chavez MD Lymphocytes (Bld) [#/Vol] 1.41 10*3/uL Normal 1.10-3.70 [facility] Comment on above: Performed By: #### B C #### [address] [address] [employer] Operator: Reggie Chavez MD Lymphocytes/100 WBC (Bld) 22 % Low 24-43 [facility] Comment on above: Performed By: #### B C #### [address] [address] [employer] Operator: Reggie Chavez MD MCH (RBC) [Entitic mass] 33.2 pg Normal 25.2-33.5 [facility] Comment on above: Performed By: #### B C #### [place] [address] [employer] Operator: Reggie Chavez MD MCHC (RBC) [Mass/Vol] 31.6 g/dL Normal 28.4-34.8 [facility] Comment on above: Performed By: #### B C #### [address] [address] [employer] Operator: Reggie Chavez MD MCV (RBC) [Entitic vol] 105.1 fL High 82.6-102.9 [facility] Comment on above: Performed By: #### B C #### [address] [address] [employer] Operator: Reggie Chavez MD Monocytes (Bld) [#/Vol] 0.41 10*3/uL Normal 0.10-1.20 [facility] Comment on above: Performed By: #### B C #### [place] [address] [employer] Operator: Reggie Chavez MD Monocytes/100 WBC (Bld) 7 % Normal 3-12 [facility] Comment on above: Performed By: #### B C #### [place] [address] [employer] Operator: Reggie Chavez MD Neutrophil (Seg) 69 % High 36-65 [facility] Comment on above: Performed By: #### B C #### [address] [address] [employer] Operator: Reggie Chavez MD NRBC Automated 0.0 per 100 WBC Normal 0.0 [facility] Comment on above: Performed By: #### B C #### [place] [address] [employer] Operator: Reggie Chavez MD Platelet mean volume (Bld) [Entitic vol] 10.3 fL Normal 8.1-13.5 [facility] Comment on above: Performed By: #### B C #### [place] [address] [employer] Operator: Reggie Chavez MD Platelets (Bld) [#/Vol] 191 10*3/uL Normal 138-453 [facility] Comment on above: Performed By: #### B C #### [address] [address] [employer] Operator: Reggie Chavez MD RBC (Bld) [#/Vol] 3.95 10*6/uL Low 4.21-5.77 [facility] Comment on above: Performed By: #### B C #### [address] [address] [employer] Operator: Reggie Chavez MD RBC morphology finding Nom (Bld) MACROCYTOSIS PRESENT Normal [facility] Comment on above: Performed By: #### B C #### [address] [address] [employer] Operator: Reggie Chavez MD WBC (Bld) [#/Vol] 6.3 10*3/uL Normal 3.5-11.3 [facility] Comment on above: Performed By: #### B C #### [address] [address] [employer] Operator: Reggie Chavez MD Magnesiumon 04-15-2023 Magnesium [Mass/Vol] 1.8 mg/dL Normal 1.6-2.6 [facility] Comment on above: Performed By: #### B C #### [address] [address] [employer] Operator: Reggie Chavez MD Cult,Bloodon 04-14-2023 Cult,Blood Specimen Description .BLOOD Special Requests RT FOREARM 10 ML Culture NO GROWTH 5 DAYS Report Status FINAL 04/14/2023 [facility] Comment on above: Performed By: #### R EJEC #### [address] [address] [employer] Equipment Operator: Reggie Chavez MD Cult,Blood Specimen Description .BLOOD Special Requests LEFT WRIST 10 ML Culture NO GROWTH 5 DAYS Report Status FINAL 04/14/2023 Normal [facility] Comment on above: Performed By: #### B C #### [address] [address] [employer] Operator: Reggie Chavez MD FL MODIFIED BARIUM SWALLOW W VIDEOon 04-14-2023 [place] MODIFIED BARIUM SWALLOW W VIDEO EXAMINATION: MODIFIED BARIUM SWALLOW WAS PERFORMED IN CONJUNCTION WITH SPEECH PATHOLOGY SERVICES TECHNIQUE: Under fluoroscopic evaluation cineradiography/videor adiography recordings were performed in conjunction with the speech-language pathologist (FARE COLLECTOR). Various liquid, solid and/or semi-solid barium preparations were used to assess swallowing function. FLUOROSCOPY DOSE AND TYPE: Radiation Exposure Index: DAP [id number], COMPARISON: None HISTORY: ORDERING SYSTEM PROVIDED HISTORY: [...] Charly Johnson MD 04/14/23 Final result Normal [facility] Basic Metabolic Profon 04-13 Anion gap [Moles/Vol] 9 mmol/L Normal 9-17 [facility] Comment on above: Performed By: #### V BG #### [address] [address] [employer] Operator: Reggie Chavez MD Calcium [Mass/Vol] 9.2 mg/dL Normal 8.6-10.4 [facility] Comment on above: Performed By: #### V BG #### [address] [address] [employer] Operator: Reggie Chavez MD Chloride [Moles/Vol] 95 mmol/L Low 98-107 [facility] Comment on above: Performed By: #### V BG #### [address] [address] [employer] Operator: Reggie Chavez MD CO2 [Moles/Vol] 30 mmol/L Normal 20-31 [facility] Comment on above: Performed By: #### V BG #### [facility] [address] [place] [address] [employer] Operator: Reggie Chavez MD Creatinine [Mass/Vol] 0.43 mg/dL Low 0.70-1.20 [facility] Comment on above: Performed By: #### V BG #### [address] [address] [employer] Operator: Reggie Chavez MD GFR/1.73 sq M.predicted among non-blacks MDRD (S/P/Bld) [Vol rate/Area] mL/min/{1.73_m2} Normal >60 [facility] Comment on above: Result Comment: These [...] secretion. Performed By: #### V BG #### [address] [address] [employer] Operator: Reggie Chavez MD Glucose [Mass/Vol] 139 mg/dL High 70-99 [facility] Comment on above: Performed By: #### V BG #### [facility] [address] [place] [address] [employer] Operator: Reggie Chavez MD Potassium [Moles/Vol] 4.6 mmol/L Normal 3.7-5.3 [facility] Comment on above: Performed By: #### V BG #### [facility] [address] [place] [address] [employer] Operator: Reggie Chavez MD Sodium [Moles/Vol] 134 mmol/L Low 135-144 [facility] Comment on above: Performed By: #### V BG #### [place] [address] [employer] Operator: Reggie Chavez MD Urea nitrogen [Mass/Vol] 32 mg/dL High 8-23 [facility] Comment on above: Performed By: #### V BG #### [place] [address] [employer] Operator: Reggie Chavez MD CBC with Diffon 04-13-2023 Abs. Basophil 0.03 k/uL Normal 0.00-0.20 [facility] Comment on above: Performed By: #### V BG #### [place] [address] [employer] Operator: Reggie Chavez MD Abs.Imm.Granulocyte 0.07 k/uL Normal 0.00-0.30 [facility] Comment on above: Performed By: #### V BG #### [place] [address] [employer] Operator: Reggie Chavez MD Abs.Neutrophil (Seg) 5.52 k/uL Normal 1.50-8.10 [facility] Comment on above: Performed By: #### V BG #### [place] [address] [employer] Operator: Reggie Chavez MD Basophils/100 WBC (Bld) 0 % Normal 0-2 [facility] Comment on above: Performed By: #### V BG #### [place] [address] [employer] Operator: Reggie Chavez MD Eosinophils (Bld) [#/Vol] 0.12 10*3/uL Normal 0.00-0.44 [facility] Comment on above: Performed By: #### V BG #### [address] [address] [employer] Operator: Reggie Chavez MD Eosinophils/100 WBC (Bld) 2 % Normal 1-4 [facility] Comment on above: Performed By: #### V BG #### [address] [address] [employer] Operator: Reggie Chavez MD Erythrocyte distribution width (RBC) [Ratio] 13.2 % Normal 11.8-14.4 [facility] Comment on above: Performed By: #### V BG #### [address] [address] [employer] Operator: Reggie Chavez MD Hematocrit (Bld) [Volume fraction] 43.3 % Normal 40.7-50.3 [facility] Comment on above: Performed By: #### V BG #### [address] [address] [employer] Operator: Reggie Chavez MD Hemoglobin (Bld) [Mass/Vol] 13.5 g/dL Normal 13.0-17.0 [facility] Comment on above: Performed By: #### V BG #### [address] [address] [employer] Operator: Reggie Chavez MD Immature granulocytes/100 WBC (Bld) 1 % High 0 [facility] Comment on above: Performed By: #### V BG #### [address] [address] [employer] Operator: Reggie Chavez MD Lymphocytes (Bld) [#/Vol] 1.67 10*3/uL Normal 1.10-3.70 [facility] Comment on above: Performed By: #### V BG #### [address] [address] [employer] Operator: Reggie Chavez MD Lymphocytes/100 WBC (Bld) 21 % Low 24-43 [facility] Comment on above: Performed By: #### V BG #### [place] [address] [employer] Operator: Reggie Chavez MD MCH (RBC) [Entitic mass] 32.8 pg Normal 25.2-33.5 [facility] Comment on above: Performed By: #### V BG #### [place] [address] [employer] Operator: Reggie Chavez MD MCHC (RBC) [Mass/Vol] 31.2 g/dL Normal 28.4-34.8 [facility] Comment on above: Performed By: #### V BG #### [place] [address] [employer] Operator: Reggie Chavez MD MCV (RBC) [Entitic vol] 105.4 fL High 82.6-102.9 [facility] Comment on above: Performed By: #### V BG #### [place] [address] [employer] Operator: Reggie Chavez MD Monocytes (Bld) [#/Vol] 0.46 10*3/uL Normal 0.10-1.20 [facility] Comment on above: Performed By: #### V BG #### [place] [address] [employer] Equipment Operator: Reggie Chavez MD Monocytes/100 WBC (Bld) 6 % Normal 3-12 [facility] Comment on above: Performed By: #### V BG #### [place] [address] [employer] Equipment Operator: Reggie Chavez MD Neutrophil (Seg) 70 % High 36-65 [facility] Comment on above: Performed By: #### V BG #### [address] [address] [employer] Equipment Operator: Reggie Chavez MD NRBC Automated 0.0 per 100 WBC Normal 0.0 [facility] Comment on above: Performed By: #### V BG #### [address] [address] [employer] Operator: Reggie Chavez MD Platelet mean volume (Bld) [Entitic vol] 10.6 fL Normal 8.1-13.5 [facility] Comment on above: Performed By: #### V BG #### [address] [address] [employer] Operator: Reggie Chavez MD Platelets (Bld) [#/Vol] 189 10*3/uL Normal 138-453 [facility] Comment on above: Performed By: #### V BG #### [address] [address] [employer] Operator: Reggie Chavez MD RBC (Bld) [#/Vol] 4.11 10*6/uL Low 4.21-5.77 [facility] Comment on above: Performed By: #### V BG #### [address] [address] [employer] Equipment Operator: Reggie Chavez MD RBC morphology finding Nom (Bld) MACROCYTOSIS PRESENT Normal [facility] Comment on above: Performed By: #### V BG #### [address] [address] [employer] Operator: Reggie Chavez MD WBC (Bld) [#/Vol] 7.9 10*3/uL Normal 3.5-11.3 [facility] Comment on above: Performed By: #### V BG #### [address] [address] [employer] Equipment Operator: Reggie Chavez MD Magnesiumon 04-13-2023 Magnesium [Mass/Vol] 1.9 mg/dL Normal 1.6-2.6 [facility] Comment on above: Performed By: #### V BG #### [facility] [address] [place] [address] [employer] Equipment Operator: Reggie Chavez MD Basic Metabolic Profon 04-12 Anion gap [Moles/Vol] 9 mmol/L Normal 9-17 [facility] Comment on above: Performed By: #### U JV, UAX #### [facility] [address] [place] [address] [employer] Operator: Reggie Chavez MD Calcium [Mass/Vol] 9.5 mg/dL Normal 8.6-10.4 [facility] Comment on above: Performed By: #### U JV, UAX #### [facility] [address] [place] [address] [employer] Equipment Operator: Reggie Chavez MD Chloride [Moles/Vol] 93 mmol/L Low 98-107 [facility] Comment on above: Performed By: #### U JV, UAX #### [facility] [address] [place] [address] [employer] Equipment Operator: Reggie Chavez MD CO2 [Moles/Vol] 36 mmol/L High 20-31 [facility] Comment on above: Performed By: #### U JV, UAX #### [facility] [address] [place] [address] [employer] Equipment Operator: Reggie Chavez MD Creatinine [Mass/Vol] 0.61 mg/dL Low 0.70-1.20 [facility] Comment on above: Performed By: #### U JV, UAX #### [facility] [address] [place] [address] [employer] Operator: Reggie Chavez MD GFR/1.73 sq M.predicted among non-blacks MDRD (S/P/Bld) [Vol rate/Area] mL/min/{1.73_m2} Normal >60 [facility] Comment on above: Result Comment: These [...] Performed By: #### U JV, UAX #### [facility] [address] [place] [address] [employer] Equipment Operator: Reggie Chavez MD Glucose [Mass/Vol] 132 mg/dL High 70-99 [facility] Comment on above: Performed By: #### U JV, UAX #### [address] [address] [employer] Equipment Operator: Reggie Chavez MD Potassium [Moles/Vol] 4.4 mmol/L Normal 3.7-5.3 [facility] Comment on above: Performed By: #### U JV, UAX #### [address] [address] [employer] Equipment Operator: Reggie Chavez MD Sodium [Moles/Vol] 138 mmol/L Normal 135-144 [facility] Comment on above: Performed By: #### U JV, UAX #### [facility] [address] [place] [address] [employer] Equipment Operator: Reggie Chavez MD Urea nitrogen [Mass/Vol] 31 mg/dL High 8-23 [facility] Comment on above: Performed By: #### U JV, UAX #### [address] [address] [employer] Equipment Operator: Reggie Chavez MD CBC with Diffon 04-12-2023 Abs. Basophil 0.03 k/uL Normal 0.00-0.20 [facility] Comment on above: Performed By: #### U JV, UAX #### [address] [address] [employer] Equipment Operator: Reggie Chavez MD Abs.Imm.Granulocyte 0.09 k/uL Normal 0.00-0.30 [facility] Comment on above: Performed By: #### U JV, UAX #### [place] [address] [employer] Equipment Operator: Reggie Chavez MD Abs.Neutrophil (Seg) 6.42 k/uL Normal 1.50-8.10 [facility] Comment on above: Performed By: #### U JV, UAX #### [place] [address] [employer] Equipment Operator: Reggie Chavez MD Basophils/100 WBC (Bld) 0 % Normal 0-2 [facility] Comment on above: Performed By: #### U JV, UAX #### [place] [address] [employer] Operator: Reggie Chavez MD Eosinophils (Bld) [#/Vol] 0.14 10*3/uL Normal 0.00-0.44 [facility] Comment on above: Performed By: #### U JV, UAX #### [place] [address] [employer] Equipment Operator: Reggie Chavez MD Eosinophils/100 WBC (Bld) 2 % Normal 1-4 [facility] Comment on above: Performed By: #### U JV, UAX #### [place] [address] [employer] Equipment Operator: Reggie Chavez MD Erythrocyte distribution width (RBC) [Ratio] 13.2 % Normal 11.8-14.4 [facility] Comment on above: Performed By: #### U JV, UAX #### [address] [address] [employer] Equipment Operator: Reggie Chavez MD Hematocrit (Bld) [Volume fraction] 44.7 % Normal 40.7-50.3 [facility] Comment on above: Performed By: #### U JV, UAX #### [address] [address] [employer] Operator: Reggie Chavez MD Hemoglobin (Bld) [Mass/Vol] 14.0 g/dL Normal 13.0-17.0 [facility] Comment on above: Performed By: #### U JV, UAX #### [address] [address] [employer] Equipment Operator: Reggie Chavez MD Immature granulocytes/100 WBC (Bld) 1 % High 0 [facility] Comment on above: Performed By: #### U JV, UAX #### [address] [address] [employer] Equipment Operator: Reggie Chavez MD Lymphocytes (Bld) [#/Vol] 1.49 10*3/uL Normal 1.10-3.70 [facility] Comment on above: Performed By: #### U JV, UAX #### [address] [address] [employer] Equipment Operator: Reggie Chavez MD Lymphocytes/100 WBC (Bld) 17 % Low 24-43 [facility] Comment on above: Performed By: #### U JV, UAX #### [address] [address] [employer] Equipment Operator: Reggie Chavez MD MCH (RBC) [Entitic mass] 32.9 pg Normal 25.2-33.5 [facility] Comment on above: Performed By: #### U JV, UAX #### [address] [address] [employer] Operator: Reggie Chavez MD MCHC (RBC) [Mass/Vol] 31.3 g/dL Normal 28.4-34.8 [facility] Comment on above: Performed By: #### U JV, UAX #### [address] [address] [employer] Equipment Operator: Reggie Chavez MD MCV (RBC) [Entitic vol] 105.2 fL High 82.6-102.9 [facility] Comment on above: Performed By: #### U JV, UAX #### [address] [address] [employer] Operator: Reggie Chavez MD Monocytes (Bld) [#/Vol] 0.58 10*3/uL Normal 0.10-1.20 [facility] Comment on above: Performed By: #### U JV, UAX #### [address] [address] [employer] Equipment Operator: Reggie Chavez MD Monocytes/100 WBC (Bld) 7 % Normal 3-12 [facility] Comment on above: Performed By: #### U JV, UAX #### [address] [address] [employer] Operator: Reggie Chavez MD Neutrophil (Seg) 73 % High 36-65 [facility] Comment on above: Performed By: #### U JV, UAX #### [address] [address] [employer] Operator: Reggie Chavez MD NRBC Automated 0.0 per 100 WBC Normal 0.0 [facility] Comment on above: Performed By: #### U JV, UAX #### [address] [address] [employer] Operator: Reggie Chavez MD Platelet mean volume (Bld) [Entitic vol] 10.3 fL Normal 8.1-13.5 [facility] Comment on above: Performed By: #### U JV, UAX #### [address] [address] [employer] Operator: Reggie Chavez MD Platelets (Bld) [#/Vol] 186 10*3/uL Normal 138-453 [facility] Comment on above: Performed By: #### U JV, UAX #### [address] [address] [employer] Operator: Reggie Chavez MD RBC (Bld) [#/Vol] 4.25 10*6/uL Normal 4.21-5.77 [facility] Comment on above: Performed By: #### U JV, UAX #### [address] [address] [employer] Operator: Reggie Chavez MD RBC morphology finding Nom (Bld) MACROCYTOSIS PRESENT Normal [facility] Comment on above: Performed By: #### U JV, UAX #### [address] [address] [employer] Operator: Reggie Chavez MD WBC (Bld) [#/Vol] 8.8 10*3/uL Normal 3.5-11.3 [facility] Comment on above: Performed By: #### U JV, UAX #### [address] [address] [employer] Operator: Reggie Chavez MD Magnesiumon 04-12-2023 Magnesium [Mass/Vol] 2.1 mg/dL Normal 1.6-2.6 [facility] Comment on above: Performed By: #### U JV, UAX #### [facility] [address] [place] [address] [employer] Operator: Reggie Chavez MD Basic Metabolic Profon 04-11 Anion gap [Moles/Vol] 9 mmol/L Normal 9-17 [facility] Comment on above: Performed By: #### U JV, UAX #### [facility] [address] [place] [address] [employer] Operator: Reggie Chavez MD Calcium [Mass/Vol] 9.5 mg/dL Normal 8.6-10.4 [facility] Comment on above: Performed By: #### U JV, UAX #### [facility] [address] [place] [address] [employer] Operator: Reggie Chavez MD Chloride [Moles/Vol] 95 mmol/L Low 98-107 [facility] Comment on above: Performed By: #### U JV, UAX #### [facility] [address] [place] [address] [employer] Operator: Reggie Chavez MD CO2 [Moles/Vol] 34 mmol/L High 20-31 [facility] Comment on above: Performed By: #### U JV, UAX #### [facility] [address] [place] [address] [employer] Operator: Reggie Chavez MD Creatinine [Mass/Vol] 0.47 mg/dL Low 0.70-1.20 [facility] Comment on above: Performed By: #### U JV, UAX #### [address] [address] [employer] Operator: Reggie Chavez MD GFR/1.73 sq M.predicted among non-blacks MDRD (S/P/Bld) [Vol rate/Area] mL/min/{1.73_m2} Normal >60 [facility] Comment on above: Result Comment: These [...] Performed By: #### U JV, UAX #### [address] [address] [employer] Operator: Reggie Chavez MD Glucose [Mass/Vol] 210 mg/dL High 70-99 [facility] Comment on above: Performed By: #### U JV, UAX #### [place] [address] [employer] Operator: Reggie Chavez MD Potassium [Moles/Vol] 4.1 mmol/L Normal 3.7-5.3 [facility] Comment on above: Performed By: #### U JV, UAX #### [place] [address] [employer] Operator: Reggie Chavez MD Sodium [Moles/Vol] 138 mmol/L Normal 135-144 [facility] Comment on above: Performed By: #### U JV, UAX #### [place] [address] [employer] Operator: Reggie Chavez MD Urea nitrogen [Mass/Vol] 23 mg/dL Normal 8-23 [facility] Comment on above: Performed By: #### U JV, UAX #### [place] [address] [employer] Operator: Reggie Chavez MD CBC with Diffon 04-11-2023 Abs. Basophil <0.03 Normal 0.00-0.20 [facility] Comment on above: Performed By: #### U JV, UAX #### [place] [address] [employer] Operator: Reggie Chavez MD Abs.Imm.Granulocyte 0.08 k/uL Normal 0.00-0.30 [facility] Comment on above: Performed By: #### U JV, UAX #### [address] [address] [employer] Operator: Reggie Chavez MD Abs.Neutrophil (Seg) 9.24 k/uL High 1.50-8.10 [facility] Comment on above: Performed By: #### U JV, UAX #### [address] [address] [employer] Operator: Reggie Chavez MD Basophils/100 WBC (Bld) 0 % Normal 0-2 [facility] Comment on above: Performed By: #### U JV, UAX #### [address] [address] [employer] Operator: Reggie Chavez MD Eosinophils (Bld) [#/Vol] 0.08 10*3/uL Normal 0.00-0.44 [facility] Comment on above: Performed By: #### U JV, UAX #### [address] [address] [employer] Operator: Reggie Chavez MD Eosinophils/100 WBC (Bld) 1 % Normal 1-4 [facility] Comment on above: Performed By: #### U JV, UAX #### [address] [address] [employer] Operator: Reggie Chavez MD Erythrocyte distribution width (RBC) [Ratio] 13.3 % Normal 11.8-14.4 [facility] Comment on above: Performed By: #### U JV, UAX #### [address] [address] [employer] Operator: Reggie Chavez MD Hematocrit (Bld) [Volume fraction] 43.7 % Normal 40.7-50.3 [facility] Comment on above: Performed By: #### U JV, UAX #### [address] [address] [employer] Operator: Reggie Chavez MD Hemoglobin (Bld) [Mass/Vol] 13.7 g/dL Normal 13.0-17.0 [facility] Comment on above: Performed By: #### U JV, UAX #### [address] [address] [employer] Operator: Reggie Chavez MD Immature granulocytes/100 WBC (Bld) 1 % High 0 [facility] Comment on above: Performed By: #### U JV, UAX #### [address] [address] [employer] Operator: Reggie Chavez MD Lymphocytes (Bld) [#/Vol] 1.17 10*3/uL Normal 1.10-3.70 [facility] Comment on above: Performed By: #### U JV, UAX #### [address] [address] [employer] Operator: Reggie Chavez MD Lymphocytes/100 WBC (Bld) 11 % Low 24-43 [facility] Comment on above: Performed By: #### U JV, UAX #### [address] [address] [employer] Operator: Reggie Chavez MD MCH (RBC) [Entitic mass] 32.5 pg Normal 25.2-33.5 [facility] Comment on above: Performed By: #### U JV, UAX #### [address] [address] [employer] Operator: Reggie Chavez MD MCHC (RBC) [Mass/Vol] 31.4 g/dL Normal 28.4-34.8 [facility] Comment on above: Performed By: #### U JV, UAX #### [address] [address] [employer] Operator: Reggie Chavez MD MCV (RBC) [Entitic vol] 103.8 fL High 82.6-102.9 [facility] Comment on above: Performed By: #### U JV, UAX #### [address] [address] [employer] Operator: Reggie Chavez MD Monocytes (Bld) [#/Vol] 0.58 10*3/uL Normal 0.10-1.20 [facility] Comment on above: Performed By: #### U JV, UAX #### [address] [address] [employer] Operator: Reggie Chavez MD Monocytes/100 WBC (Bld) 5 % Normal 3-12 [facility] Comment on above: Performed By: #### U JV, UAX #### [address] [address] [employer] Operator: Reggie Chavez MD Neutrophil (Seg) 82 % High 36-65 [facility] Comment on above: Performed By: #### U JV, UAX #### [address] [address] [employer] Operator: Reggie Chavez MD NRBC Automated 0.0 per 100 WBC Normal 0.0 [facility] Comment on above: Performed By: #### U JV, UAX #### [address] [address] [employer] Operator: Reggie Chavez MD Platelet mean volume (Bld) [Entitic vol] 10.4 fL Normal 8.1-13.5 [facility] Comment on above: Performed By: #### U JV, UAX #### [address] [address] [employer] Operator: Reggie Chavez MD Platelets (Bld) [#/Vol] 217 10*3/uL Normal 138-453 [facility] Comment on above: Performed By: #### U JV, UAX #### [facility] [address] [place] [address] [employer] Operator: Reggie Chavez MD RBC (Bld) [#/Vol] 4.21 10*6/uL Normal 4.21-5.77 [facility] Comment on above: Performed By: #### U JV, UAX #### [facility] [address] [place] [address] [employer] Operator: Reggie Chavez MD RBC morphology finding Nom (Bld) MACROCYTOSIS PRESENT Normal [facility] Comment on above: Performed By: #### U JV, UAX #### [facility] [address] [place] [address] [employer] Operator: Reggie Chavez MD WBC (Bld) [#/Vol] 11.2 10*3/uL Normal 3.5-11.3 [facility] Comment on above: Performed By: #### U JV, UAX #### [facility] [address] [place] [address] [employer] Operator: Reggie Chavez MD Magnesiumon 04-11-2023 Magnesium [Mass/Vol] 1.7 mg/dL Normal 1.6-2.6 [facility] Comment on above: Performed By: #### U JV, UAX #### [address] [address] [employer] Operator: Reggie Chavez MD CBCon 04-10-2023 Erythrocyte distribution width (RBC) [Ratio] 13.2 % Normal 11.8-14.4 [facility] Comment on above: Performed By: #### V BG #### [address] [address] [employer] Operator: Reggie Chavez MD Hematocrit (Bld) [Volume fraction] 44.6 % Normal 40.7-50.3 [facility] Comment on above: Performed By: #### V BG #### [address] [address] [employer] Operator: Reggie Chavez MD Hemoglobin (Bld) [Mass/Vol] 14.1 g/dL Normal 13.0-17.0 [facility] Comment on above: Performed By: #### V BG #### [address] [address] [employer] Operator: Reggie Chavez MD MCH (RBC) [Entitic mass] 32.9 pg Normal 25.2-33.5 [facility] Comment on above: Performed By: #### V BG #### [address] [address] [employer] Operator: Reggie Chavez MD MCHC (RBC) [Mass/Vol] 31.6 g/dL Normal 28.4-34.8 [facility] Comment on above: Performed By: #### V BG #### [address] [address] [employer] Operator: Reggie Chavez MD MCV (RBC) [Entitic vol] 104.0 fL High 82.6-102.9 [facility] Comment on above: Performed By: #### V BG #### [address] [address] [employer] Operator: Reggie Chavez MD NRBC Automated 0.0 per 100 WBC Normal 0.0 [facility] Comment on above: Performed By: #### V BG #### [address] [address] [employer] Operator: Reggie Chavez MD Platelet mean volume (Bld) [Entitic vol] 10.1 fL Normal 8.1-13.5 [facility] Comment on above: Performed By: #### V BG #### [address] [address] [employer] Operator: Reggie Chavez MD Platelets (Bld) [#/Vol] 198 10*3/uL Normal 138-453 [facility] Comment on above: Performed By: #### V BG #### [address] [address] [employer] Operator: Reggie Chavez MD RBC (Bld) [#/Vol] 4.29 10*6/uL Normal 4.21-5.77 [facility] Comment on above: Performed By: #### V BG #### [address] [address] [employer] Operator: Reggie Chavez MD WBC (Bld) [#/Vol] 8.1 10*3/uL Normal 3.5-11.3 [facility] Comment on above: Performed By: #### V BG #### [address] [address] [employer] Operator: Reggie Chavez MD Comp Metabolic Pr/rfx MGon 0 - Albumin [Mass/Vol] 3.3 g/dL Low 3.5-5.2 [facility] Comment on above: Performed By: #### V BG #### [address] [address] [employer] Operator: Reggie Chavez MD Albumin/Glob Ratio 1.1 Normal 1.0-2.5 [facility] Comment on above: Performed By: #### V BG #### [address] [address] [employer] Operator: Reggie Chavez MD Alkaline Phos 103 U/L Normal 40-129 [facility] Comment on above: Performed By: #### V BG #### [address] [address] [employer] Operator: Reggie Chavez MD ALT [Catalytic activity/Vol] 22 U/L Normal 5-41 [facility] Comment on above: Performed By: #### V BG #### [facility] [address] [place] [address] [employer] Operator: Reggie Chavez MD Anion gap [Moles/Vol] 6 mmol/L Low 9-17 [facility] Comment on above: Performed By: #### V BG #### [address] [address] [employer] Operator: Reggie Chavez MD AST [Catalytic activity/Vol] 18 U/L Normal <40 [facility] Comment on above: Performed By: #### V BG #### [address] [address] [employer] Operator: Reggie Chavez MD Bilirubin [Mass/Vol] 0.5 mg/dL Normal 0.3-1.2 [facility] Comment on above: Performed By: #### V BG #### [address] [address] [employer] Operator: Reggie Chavez MD Calcium [Mass/Vol] 9.3 mg/dL Normal 8.6-10.4 [facility] Comment on above: Performed By: #### V BG #### [address] [address] [employer] Operator: Reggie Chavez MD Chloride [Moles/Vol] 94 mmol/L Low 98-107 [facility] Comment on above: Performed By: #### V BG #### [address] [address] [employer] Operator: Reggie Chavez MD CO2 [Moles/Vol] 40 mmol/L High 20-31 [facility] Comment on above: Performed By: #### V BG #### [address] [address] [employer] Operator: Reggie Chavez MD Creatinine [Mass/Vol] 0.62 mg/dL Low 0.70-1.20 [facility] Comment on above: Performed By: #### V BG #### [place] [address] [employer] Operator: Reggie Chavez MD GFR/1.73 sq M.predicted among non-blacks MDRD (S/P/Bld) [Vol rate/Area] mL/min/{1.73_m2} Normal >60 [facility] Comment on above: Result Comment: These [...] secretion. Performed By: #### V BG #### [place] [address] [employer] Operator: Reggie Chavez MD Glucose [Mass/Vol] 135 mg/dL High 70-99 [facility] Comment on above: Performed By: #### V BG #### [address] [address] [employer] Operator: Reggie Chavez MD Potassium [Moles/Vol] 4.2 mmol/L Normal 3.7-5.3 [facility] Comment on above: Performed By: #### V BG #### [facility] [address] [place] [address] [employer] Operator: Reggie Chavez MD Protein [Mass/Vol] 6.2 g/dL Low 6.4-8.3 [facility] Comment on above: Performed By: #### V BG #### [address] [address] [employer] Operator: Reggie Chavez MD Sodium [Moles/Vol] 140 mmol/L Normal 135-144 [facility] Comment on above: Performed By: #### V BG #### [address] [address] [employer] Operator: Reggie Chavez MD Urea nitrogen [Mass/Vol] 27 mg/dL High 8- [facility] Comment on above: Performed By: #### V BG #### [address] [address] [employer] Operator: Reggie Chavez MD Magnesiumon 04-10-2023 Magnesium [Mass/Vol] 1.6 mg/dL Normal 1.6-2.6 [facility] Comment on above: Performed By: #### V BG #### [address] [address] [employer] Operator: Reggie Chavez MD Troponinon 04-10-2023 Troponin, High Sens 133 ng/L Critically high 0-22 [facility] Comment on above: Result Comment: High Sensitivity Troponin values cannot be compared with other Troponin methodologies. Previous Alert Value Reported Performed By: #### D ADAM, HEPXA #### [address] [address] [employer] Operator: Reggie Chavez MD Venous Blood Gaseson 023 Body Temp. 37.0 Normal [facility] Comment on above: Performed By: #### V BG #### [address] [address] [employer] Operator: Reggie Chavez MD Carboxy Hgb 0.0 % Normal 0-5 [facility] Comment on above: Result Comment: Reference Range: Non-Smokers 0-2% Average Smoker 2-4% Heavy Smoker <10% Performed By: #### V BG #### [address] [address] [employer] Operator: Reggie Chavez MD FIO2 INFORMATION NOT PROVIDED Normal [facility] Comment on above: Performed By: #### V BG #### [facility] [address] [place] [address] [employer] Operator: Reggie Chavez MD HCO3 (Bld) [Moles/Vol] 38.8 mmol/L High 24-30 [facility] Comment on above: Performed By: #### V BG #### [address] [address] [employer] Operator: Reggie Chavez MD Oxygen saturation in Blood 62.6 % Normal 60.0-85.0 [facility] Comment on above: Performed By: #### V BG #### [facility] [address] [place] [address] [employer] Operator: Reggie Chavez MD pCO2 71.1 mm Hg High 39-55 [facility] Comment on above: Performed By: #### V BG #### [address] [address] [employer] Operator: Reggie Chavez MD pH (Bld) 7.355 [pH] Normal 7.320-7.420 [facility] Comment on above: Performed By: #### V BG #### [address] [address] [employer] Operator: Reggie Chavez MD pO2 33.4 mm Hg Normal 30-50 [facility] Comment on above: Performed By: #### V BG #### [address] [address] [employer] Operator: Reggie Chavez MD Positive Base Excess 10.2 mmol/L High 0.0-2.0 [facility] Comment on above: Performed By: #### V BG #### [facility] [address] [place] [address] [employer] Operator: Reggie Chavez MD Vitamin D 25 OHon 04-10-2023 Vitamin D 25 OH 36.7 ng/mL Normal >29.9 [facility] Comment on above: Result Comment: Reference Range: Vitamin D status Range Deficiency <20 ng/mL Mild Deficiency 20-30 ng/mL Sufficiency 30-100 ng/mL Toxicity >100 ng/mL Performed By: #### V BG #### [address] [address] [employer] Operator: Reggie Chavez MD Brain Natri. Peptideon 04-09 Natriuretic peptide B (Bld) [Mass/Vol] 76 pg/mL Normal <300 [facility] Comment on above: Result Comment: An age-independent cutoff point of 300 pg/ml has a 98% negative predictive value excluding acute heart failure. Performed By: #### D ADAM, HEPXA #### [address] [address] [employer] Operator: Reggie Chavez MD CBC with Diffon 04-09-2023 Abs. Basophil 0.03 k/uL Normal 0.00-0.20 [facility] Comment on above: Performed By: #### H EPXA #### [address] [address] [employer] Operator: Reggie Chavez MD Abs.Imm.Granulocyte 0.10 k/uL Normal 0.00-0.30 [facility] Comment on above: Performed By: #### H EPXA #### [address] [address] [employer] Operator: Reggie Chavez MD Abs.Neutrophil (Seg) 7.68 k/uL Normal 1.50-8.10 [facility] Comment on above: Performed By: #### H EPXA #### [address] [address] [employer] Operator: Reggie Chavez MD Basophils/100 WBC (Bld) 0 % Normal 0-2 [facility] Comment on above: Performed By: #### H EPXA #### [address] [address] [employer] Operator: Reggie Chavez MD Eosinophils (Bld) [#/Vol] 0.10 10*3/uL Normal 0.00-0.44 [facility] Comment on above: Performed By: #### H EPXA #### [address] [address] [employer] Operator: Reggie Chavez MD Eosinophils/100 WBC (Bld) 1 % Normal 1-4 [facility] Comment on above: Performed By: #### H EPXA #### [address] [address] [employer] Operator: Reggie Chavez MD Erythrocyte distribution width (RBC) [Ratio] 13.2 % Normal 11.8-14.4 [facility] Comment on above: Performed By: #### H EPXA #### [place] [address] [employer] Operator: Reggie Chavez MD Hematocrit (Bld) [Volume fraction] 48.3 % Normal 40.7-50.3 [facility] Comment on above: Performed By: #### H EPXA #### [address] [address] [employer] Operator: Reggie Chavez MD Hemoglobin (Bld) [Mass/Vol] 15.6 g/dL Normal 13.0-17.0 [facility] Comment on above: Performed By: #### H EPXA #### [address] [address] [employer] Operator: Reggie Chavez MD Immature granulocytes/100 WBC (Bld) 1 % High 0 [facility] Comment on above: Performed By: #### H EPXA #### [address] [address] [employer] Operator: Reggie Chavez MD Lymphocytes (Bld) [#/Vol] 1.95 10*3/uL Normal 1.10-3.70 [facility] Comment on above: Performed By: #### H EPXA #### [address] [address] [employer] Operator: Reggie Chavez MD Lymphocytes/100 WBC (Bld) 19 % Low 24-43 [facility] Comment on above: Performed By: #### H EPXA #### [place] [address] [employer] Operator: Reggie Chavez MD MCH (RBC) [Entitic mass] 33.0 pg Normal 25.2-33.5 [facility] Comment on above: Performed By: #### H EPXA #### [place] [address] [employer] Operator: Reggie Chavez MD MCHC (RBC) [Mass/Vol] 32.3 g/dL Normal 28.4-34.8 [facility] Comment on above: Performed By: #### H EPXA #### [place] [address] [employer] Operator: Reggie Chavez MD MCV (RBC) [Entitic vol] 102.1 fL Normal 82.6-102.9 [facility] Comment on above: Performed By: #### H EPXA #### [place] [address] [employer] Operator: Reggie Chavez MD Monocytes (Bld) [#/Vol] 0.61 10*3/uL Normal 0.10-1.20 [facility] Comment on above: Performed By: #### H EPXA #### [place] [address] [employer] Operator: Reggie Chavez MD Monocytes/100 WBC (Bld) 6 % Normal 3-12 [facility] Comment on above: Performed By: #### H EPXA #### [address] [address] [employer] Operator: Reggie Chavez MD Neutrophil (Seg) 73 % High 36-65 [facility] Comment on above: Performed By: #### H EPXA #### [address] [address] [employer] Operator: Reggie Chavez MD NRBC Automated 0.0 per 100 WBC Normal 0.0 [facility] Comment on above: Performed By: #### H EPXA #### [address] [address] [employer] Operator: Reggie Chavez MD Platelet mean volume (Bld) [Entitic vol] 10.6 fL Normal 8.1-13.5 [facility] Comment on above: Performed By: #### H EPXA #### [address] [address] [employer] Operator: Reggie Chavez MD Platelets (Bld) [#/Vol] 214 10*3/uL Normal 138-453 [facility] Comment on above: Performed By: #### H EPXA #### [address] [address] [employer] Operator: Reggie Chavez MD RBC (Bld) [#/Vol] 4.73 10*6/uL Normal 4.21-5.77 [facility] Comment on above: Performed By: #### H EPXA #### [address] [address] [employer] Operator: Reggie Chavez MD WBC (Bld) [#/Vol] 10.5 10*3/uL Normal 3.5-11.3 [facility] Comment on above: Performed By: #### H EPXA #### [address] [address] [employer] Operator: Reggie Chavez MD Comp Metabolic Profon 2022 Albumin [Mass/Vol] 3.8 g/dL Normal 3.5-5.2 [facility] Comment on above: Performed By: #### Cooper ADAM, HEPXA #### [address] [address] [employer] Operator: Reggie Chavez MD Albumin/Glob Ratio 1.2 Normal 1.0-2.5 [facility] Comment on above: Performed By: #### Cooper ADAM, HEPXA #### [facility] [address] [place] [address] [employer] Operator: Reggie Chavez MD Alkaline Phos 117 U/L Normal 40-129 [facility] Comment on above: Performed By: #### Cooper KWANE, HEPXA #### [address] [address] [employer] Operator: Reggie Chavez MD ALT [Catalytic activity/Vol] 27 U/L Normal 5-41 [facility] Comment on above: Performed By: #### Cooper MEDINA, HEPXA #### [address] [address] [employer] Operator: Reggie Chavez MD Anion gap [Moles/Vol] 11 mmol/L Normal 9-17 [facility] Comment on above: Performed By: #### Cooper ADAM, HEPXA #### [facility] [address] [place] [address] [employer] Operator: Reggie Chavez MD AST [Catalytic activity/Vol] 22 U/L Normal <40 [facility] Comment on above: Performed By: #### D ADAM, HEPXA #### [address] [address] [employer] Operator: Reggie Chavez MD Bilirubin [Mass/Vol] 0.6 mg/dL Normal 0.3-1.2 [facility] Comment on above: Performed By: #### D ADAM, HEPXA #### [facility] [address] [place] [address] [employer] Operator: Reggie Chavez MD Calcium [Mass/Vol] 9.7 mg/dL Normal 8.6-10.4 [facility] Comment on above: Performed By: #### D ADAM, HEPXA #### [facility] [address] [place] [address] [employer] Operator: Reggie Chavez MD Chloride [Moles/Vol] 92 mmol/L Low 98-107 [facility] Comment on above: Performed By: #### D ADAM, HEPXA #### [facility] [address] [place] [address] [employer] Operator: Reggie Chavez MD CO2 [Moles/Vol] 35 mmol/L High 20-31 [facility] Comment on above: Performed By: #### D ADAM, HEPXA #### [facility] [address] [place] [address] [employer] Operator: Reggie Chavez MD Creatinine [Mass/Vol] 0.55 mg/dL Low 0.70-1.20 [facility] Comment on above: Performed By: #### D ADAM, HEPXA #### [address] [address] [employer] Operator: Reggie Chavez MD GFR/1.73 sq M.predicted among non-blacks MDRD (S/P/Bld) [Vol rate/Area] mL/min/{1.73_m2} Normal >60 [facility] Comment on above: Result Comment: These [...] Performed By: #### Cooper MEDINA, HEPXA #### [facility] [address] [place] [address] [employer] Equipment Operator: Reggie Chavez MD Glucose [Mass/Vol] 141 mg/dL High 70-99 [facility] Comment on above: Performed By: #### D ADAM, HEPXA #### [facility] [address] [place] [address] [employer] Equipment Operator: Reggie Chavez MD Potassium [Moles/Vol] 4.1 mmol/L Normal 3.7-5.3 [facility] Comment on above: Performed By: #### Cooper MEDINA, HEPXA #### [facility] [address] [place] [address] L[employer] M[employer] Equipment Operator: Reggie Chavez MD Protein [Mass/Vol] 7.0 g/dL Normal 6.4-8.3 [facility] Comment on above: Performed By: #### Cooper MEDINA, HEPXA #### [facility] [address] [place] [address] Lens M[employer] Equipment Operator: Reggie Chavez MD Sodium [Moles/Vol] 138 mmol/L Normal 135-144 [facility] Comment on above: Performed By: #### Cooper MEDINA, HEPXA #### [facility] [address] [place] [address] L[employer] M[employer] Equipment Operator: Reggie Chavez MD Urea nitrogen [Mass/Vol] 33 mg/dL High 8-23 [facility] Comment on above: Performed By: #### Cooper MEDINA, HEPXA #### [facility] [address] [place] [address] [employer] Equipment Operator: Reggie Chavez MD Lactate, Sepsison 04-09-2023 Lactic Acid,Sep Wbld 2.1 mmol/L High 0.5-1.9 [facility] Comment on above: Performed By: #### V BG #### [address] [address] L[employer] M[employer] Equipment Operator: Reggie Chavez MD Lactic Acid,Sep Wbld 2.5 mmol/L High 0.5-1.9 [facility] Comment on above: Performed By: #### H EPXA #### [address] [address] L[employer] Equipment Operator: Reggie Chavez MD Magnesiumon 04-09-2023 Magnesium [Mass/Vol] 1.5 mg/dL Low 1.6-2.6 [facility] Comment on above: Performed By: #### U JV, UAX #### [address] [address] L[employer] M[employer] Equipment Operator: Reggie Chavez MD Specimen Rejectionon 088 Reason for rejection Unable to perform testing: Specimen contaminated. Normal [facility] Comment on above: Performed By: #### R EJEC #### [address] [address] L[employer] M[employer] Equipment Operator: Reggie Chavez MD Source of sample .BLOOD Normal [facility] Comment on above: Performed By: #### R EJEC #### [address] [address] L[employer] M[employer] Equipment Operator: Reggie Chavez MD Test ordered BNP, CP, TROPI Normal [facility] Comment on above: Performed By: #### R EJEC #### [address] [address] L[employer] M[employer] Equipment Operator: Reggie Chavez MD Reason for rejection Unable to perform testing: Specimen hemolyzed. [facility] Comment on above: Performed By: #### H EPXA #### [address] [address] L[employer] M[employer] Equipment Operator: Reggie Chavez MD Source of sample .BLOOD Normal [facility] Comment on above: Performed By: #### H EPXA #### [facility] [address] [place] [address] L[employer] M[employer] Equipment Operator: Reggie Chavez MD Test ordered BNP,CP,TROPI Normal [facility] Comment on above: Performed By: #### H EPXA #### [address] [address] L[employer] M[employer] Equipment Operator: Reggie Chavez MD Troponinon 4 Troponin, High Sens 148 ng/L Critically high 0-22 [facility] Comment on above: Result Comment: High Sensitivity Troponin values cannot be compared with other Troponin methodologies. Previous Alert Value Reported Performed By: #### U JV, UAX #### [address] [address] L[employer] Equipment Operator: Reggie Chavez MD Troponin, High Sens 155 ng/L Critically high 0-22 [facility] Comment on above: Result Comment: High Sensitivity Troponin values cannot be compared with other Troponin methodologies. Performed By: #### D ADAM, HEPXA #### [address] [address] L[employer] M[employer] Equipment Operator: Reggie Chavez MD UA w/Reflex Cultureon 8 Bilirubin, SemiQt,Ur Negative Normal NEG [facility] Comment on above: Performed By: #### U JV, UAX #### [facility] [address] [place] [address] L[employer] M[employer] Equipment Operator: Reggie Chavez MD Blood, Urine Negative Normal NEG [facility] Comment on above: Performed By: #### U JV, UAX #### [facility] [address] [place] [address] L[employer] M[employer] Equipment Operator: Reggie Chavez MD Clarity (U) Clear Normal CLEAR [facility] Comment on above: Performed By: #### U JV, UAX #### [facility] [address] [place] [address] L[employer] M[employer] Equipment Operator: Reggie Chavez MD Color (U) Yellow Normal YEL [facility] Comment on above: Performed By: #### U JV, UAX #### [facility] [address] [place] [address] L[employer] M[employer] Equipment Operator: Reggie Chavez MD Comment Microscopic exam not performed based on chemical results unless requested in Normal [facility] Comment on above: Result Comment: orig inal order. Performed By: #### U JV, UAX #### [facility] [address] [place] [address] L[employer] Equipment Operator: Reggie Chavez MD Glucose Ql (U) Negative Normal NEG [facility] Comment on above: Performed By: #### U JV, UAX #### [address] [address] L[employer] M[employer] Equipment Operator: Reggie Chavez MD Ketones Ql (U) Negative Normal NEG [facility] Comment on above: Performed By: #### U JV, UAX #### [address] [address] L[employer] Equipment Operator: Reggie Chavez MD Leukocyte esterase Test strip Ql (U) Negative Normal NEG [facility] Comment on above: Performed By: #### U JV, UAX #### [address] [address] L[employer] M[employer] Equipment Operator: Reggie Chavez MD Nitrite,Ur Negative Normal NEG [facility] Comment on above: Performed By: #### U JV, UAX #### [address] [address] L[employer] M[employer] Equipment Operator: Reggie Chavez MD PH,Ur 5.5 Normal 5.0-8.0 [facility] Comment on above: Performed By: #### U JV, UAX #### [facility] [address] [place] [address] L[employer] M[employer] Equipment Operator: Reggie Chavez MD Protein Ql (U) Negative Normal NEG [facility] Comment on above: Performed By: #### U JV, UAX #### [facility] [address] [place] [address] L[employer] M[employer] Equipment Operator: Reggie Chavez MD Spec. [place],Ur 1.014 Normal 1.005-1.030 [facility] Comment on above: Performed By: #### U JV, UAX #### [facility] [address] [place] [address] L[employer] M[employer] Equipment Operator: Reggie Chavez MD Urobilinogen,Ur Normal Normal NORM [facility] Comment on above: Performed By: #### U JV, UAX #### [address] [address] L[employer] M[employer] Equipment Operator: Reggie Chavez MD XR CHEST (2 VW)on [...] Fred Mcgovern MD 04/09/23 Final result Normal [facility] Basic Metab w/rfx MGon 04-08 Anion gap [Moles/Vol] 11 mmol/L Normal 9-17 [facility] Comment on above: Performed By: #### H EPXA #### [address] [address] L[employer] Equipment Operator: Reggie Chavez MD Calcium [Mass/Vol] 9.2 mg/dL Normal 8.6-10.4 [facility] Comment on above: Performed By: #### H EPXA #### [facility] [address] [place] [address] L[employer] M[employer] Equipment Operator: Reggie Chavez MD Chloride [Moles/Vol] 97 mmol/L Low 98-107 [facility] Comment on above: Performed By: #### H EPXA #### [facility] [address] [place] [address] L[employer] M[employer] Equipment Operator: Reggie Chavez MD CO2 [Moles/Vol] 30 mmol/L Normal 20-31 [facility] Comment on above: Performed By: #### H EPXA #### [address] [address] L[employer] Equipment Operator: Reggie Chavez MD Creatinine [Mass/Vol] 0.58 mg/dL Low 0.70-1.20 [facility] Comment on above: Performed By: #### H EPXA #### [address] [address] L[employer] M[employer] Equipment Operator: Reggie Chavez MD GFR/1.73 sq M.predicted among non-blacks MDRD (S/P/Bld) [Vol rate/Area] mL/min/{1.73_m2} Normal >60 [facility] Comment on above: Result Comment: These [...] secretion. Performed By: #### H EPXA #### [address] [address] L[employer] M[employer] Equipment Operator: Reggie Chavez MD Glucose [Mass/Vol] 165 mg/dL High 70-99 [facility] Comment on above: Performed By: #### H EPXA #### [facility] [address] [place] [address] L[employer] M[employer] Equipment Operator: Reggie Chavez MD Potassium [Moles/Vol] 4.3 mmol/L Normal 3.7-5.3 [facility] Comment on above: Performed By: #### H EPXA #### [address] [address] L[employer] M[employer] Equipment Operator: Reggie Chavez MD Sodium [Moles/Vol] 138 mmol/L Normal 135-144 [facility] Comment on above: Performed By: #### H EPXA #### [address] [address] L[employer] M[employer] Equipment Operator: Reggie Chavez MD Urea nitrogen [Mass/Vol] 30 mg/dL High - [facility] Comment on above: Performed By: #### H EPXA #### [address] [address] L[employer] M[employer] Equipment Operator: Reggie Chavez MD Hemoglobin A1Con 04-08-2023 Glucose [Mass/Vol] 171 mg/dL Normal [facility] Comment on above: Result Comment: The ADA and AACC recommend providing the estimated average glucose result to permit better patient understanding of their HBA1c result. Performed By: #### H EPXA #### [address] [address] L[employer] Equipment Operator: Reggie Chavez MD HbA1c (Bld) [Mass fraction] 7.6 % High 4.0-6.0 [facility] Comment on above: Performed By: #### H EPXA #### [facility] [address] [place] [address] L[employer] Equipment Operator: Reggie Chavez MD CBCon 04-07-2023 Erythrocyte distribution width (RBC) [Ratio] 13.2 % Normal 11.8-14.4 [facility] Comment on above: Performed By: #### H EPXA #### [address] [address] L[employer] Equipment Operator: Reggie Chavez MD Hematocrit (Bld) [Volume fraction] 47.5 % Normal 40.7-50.3 [facility] Comment on above: Performed By: #### H EPXA #### [address] [address] L[employer] M[employer] Equipment Operator: Reggie Chaevz MD Hemoglobin (Bld) [Mass/Vol] 14.4 g/dL Normal 13.0-17.0 [facility] Comment on above: Performed By: #### H EPXA #### [address] [address] L[employer] M[employer] Equipment Operator: Reggie Chavez MD MCH (RBC) [Entitic mass] 33.1 pg Normal 25.2-33.5 [facility] Comment on above: Performed By: #### H EPXA #### [address] [address] L[employer] M[employer] Equipment Operator: Reggie Chavez MD MCHC (RBC) [Mass/Vol] 30.3 g/dL Normal 28.4-34.8 [facility] Comment on above: Performed By: #### H EPXA #### [address] [address] L[employer] M[employer] Equipment Operator: Reggie Chavez MD MCV (RBC) [Entitic vol] 109.2 fL High 82.6-102.9 [facility] Comment on above: Performed By: #### H EPXA #### [address] [address] L[employer] M[employer] Equipment Operator: Reggie Chavez MD NRBC Automated 0.0 per 100 WBC Normal 0.0 [facility] Comment on above: Performed By: #### H EPXA #### [address] [address] L[employer] M[employer] Equipment Operator: Reggie Chavez MD Platelet mean volume (Bld) [Entitic vol] 10.0 fL Normal 8.1-13.5 [facility] Comment on above: Performed By: #### H EPXA #### [address] [address] L[employer] M[employer] Equipment Operator: Reggie Chavez MD Platelets (Bld) [#/Vol] 202 10*3/uL Normal 138-453 [facility] Comment on above: Performed By: #### H EPXA #### [address] [address] L[employer] M[employer] Equipment Operator: Reggie Chavez MD RBC (Bld) [#/Vol] 4.35 10*6/uL Normal 4.21-5.77 [facility] Comment on above: Performed By: #### H EPXA #### [address] [address] L[employer] Equipment Operator: Reggie Chavez MD WBC (Bld) [#/Vol] 8.5 10*3/uL Normal 3.5-11.3 [facility] Comment on above: Performed By: #### H EPXA #### [address] [address] L[employer] M[employer] Equipment Operator: Reggie Chavez MD Creatine Kinaseon 04-07-2023 CK [Catalytic activity/Vol] 69 U/L Normal 39-308 [facility] Comment on above: Performed By: #### H EPXA #### [address] [address] L[employer] M[employer] Equipment Operator: Reggie Chavez MD D-Dimer Teston 04-07-2023 D-Dimer Test 0.27 ug/mL FEU Normal 0.00-0.57 [facility] Comment on above: Result Comment: [...] Performed By: #### D ADAM, HEPXA #### [facility] [address] [place] [address] [phone] L[employer] M[employer] Equipment Operator: Reggie Chavez MD Hemoglobin A1Con 04-07-2023 Glucose [Mass/Vol] 180 mg/dL Normal [facility] Comment on above: Result Comment: The ADA and AACC recommend providing the estimated average glucose result to permit better patient understanding of their HBA1c result. Performed By: #### R EJEC #### [facility] [address] [place] [address] [phone] L[employer] M[employer] Equipment Operator: Reggie Chavez MD HbA1c (Bld) [Mass fraction] 7.9 % High 4.0-6.0 [facility] Comment on above: Performed By: #### R EJEC #### [employer] [facility] [address] [place] [address] L[employer] M[employer] Equipment Operator: Reggie Chavez MD Heparin Anti-Xaon 04-07-2023 Heparin Anti-Xa <0.10 Normal [facility] Comment on above: Performed By: #### D ADAM, HEPXA #### [address] [address] L[employer] M[employer] Equipment Operator: Reggie Chavez MD Heparin Anti-Xa 0.60 IU/L Normal [facility] Comment on above: Performed By: #### U JV, UAX #### [address] [address] L[employer] M[employer] Equipment Operator: Reggie Chavez MD Heparin Anti-Xa 0.29 IU/L Normal [facility] Comment on above: Performed By: #### H EPXA #### [address] [address] L[employer] M[employer] Equipment Operator: Reggie Chavez MD CBCon 04-06-2023 Erythrocyte distribution width (RBC) [Ratio] 13.3 % Normal 11.8-14.4 [facility] Comment on above: Performed By: #### V BG #### [address] [address] L[employer] M[employer] Equipment Operator: Reggie Chavez MD Hematocrit (Bld) [Volume fraction] 44.8 % Normal 40.7-50.3 [facility] Comment on above: Performed By: #### V BG #### [address] [address] L[employer] M[employer] Equipment Operator: Reggie Chavez MD Hemoglobin (Bld) [Mass/Vol] 14.2 g/dL Normal 13.0-17.0 [facility] Comment on above: Performed By: #### V BG #### [address] [address] L[employer] M[employer] Equipment Operator: Reggie Chavez MD MCH (RBC) [Entitic mass] 32.5 pg Normal 25.2-33.5 [facility] Comment on above: Performed By: #### V BG #### [address] [address] L[employer] M[employer] Equipment Operator: Reggie Chavez MD MCHC (RBC) [Mass/Vol] 31.7 g/dL Normal 28.4-34.8 [facility] Comment on above: Performed By: #### V BG #### [address] [address] L[employer] M[employer] Equipment Operator: Reggie Chavez MD MCV (RBC) [Entitic vol] 102.5 fL Normal 82.6-102.9 [facility] Comment on above: Performed By: #### V BG #### [address] [address] L[employer] M[employer] Equipment Operator: Reggie Chavez MD NRBC Automated 0.0 per 100 WBC Normal 0.0 [facility] Comment on above: Performed By: #### V BG #### [address] [address] L[employer] M[employer] Equipment Operator: Reggie Chavez MD Platelet mean volume (Bld) [Entitic vol] 10.3 fL Normal 8.1-13.5 [facility] Comment on above: Performed By: #### V BG #### [address] [address] L[employer] M[employer] Equipment Operator: Reggie Chavez MD Platelets (Bld) [#/Vol] 188 10*3/uL Normal 138-453 [facility] Comment on above: Performed By: #### V BG #### [address] [address] L[employer] M[employer] Equipment Operator: Reggie Chavez MD RBC (Bld) [#/Vol] 4.37 10*6/uL Normal 4.21-5.77 [facility] Comment on above: Performed By: #### V BG #### [address] [address] L[employer] M[employer] Equipment Operator: Reggie Chavez MD WBC (Bld) [#/Vol] 8.1 10*3/uL Normal 3.5-11.3 [facility] Comment on above: Performed By: #### V BG #### [address] [address] L[employer] M[employer] Equipment Operator: Reggie Chavez MD Erythrocyte distribution width (RBC) [Ratio] 13.2 % Normal 11.8-14.4 [facility] Comment on above: Performed By: #### R EJEC #### [address] [address] L[employer] M[employer] Equipment Operator: Reggie Chavez MD Hematocrit (Bld) [Volume fraction] 47.4 % Normal 40.7-50.3 [facility] Comment on above: Performed By: #### R EJEC #### [address] [address] L[employer] M[employer] Equipment Operator: Reggie Chavez MD Hemoglobin (Bld) [Mass/Vol] 15.0 g/dL Normal 13.0-17.0 [facility] Comment on above: Performed By: #### R EJEC #### [address] [address] L[employer] M[employer] Equipment Operator: Reggie Chavez MD MCH (RBC) [Entitic mass] 32.7 pg Normal 25.2-33.5 [facility] Comment on above: Performed By: #### R EJEC #### [address] [address] L[employer] M[employer] Equipment Operator: Reggie Chavez MD MCHC (RBC) [Mass/Vol] 31.6 g/dL Normal 28.4-34.8 [facility] Comment on above: Performed By: #### R EJEC #### [address] [address] L[employer] M[employer] Equipment Operator: Reggie Chavez MD MCV (RBC) [Entitic vol] 103.3 fL High 82.6-102.9 [facility] Comment on above: Performed By: #### R EJEC #### [address] [address] L[employer] M[employer] Equipment Operator: Reggie Chavez MD NRBC Automated 0.0 per 100 WBC Normal 0.0 [facility] Comment on above: Performed By: #### R EJEC #### [address] [address] L[employer] M[employer] Equipment Operator: Reggie Chavez MD Platelet mean volume (Bld) [Entitic vol] 10.4 fL Normal 8.1-13.5 [facility] Comment on above: Performed By: #### R EJEC #### [address] [address] L[employer] M[employer] Equipment Operator: Reggie Chavez MD Platelets (Bld) [#/Vol] 211 10*3/uL Normal 138-453 [facility] Comment on above: Performed By: #### R EJEC #### [address] [address] L[employer] M[employer] Equipment Operator: Reggie Chavez MD RBC (Bld) [#/Vol] 4.59 10*6/uL Normal 4.21-5.77 [facility] Comment on above: Performed By: #### R EJEC #### [address] [address] L[employer] M[employer] Equipment Operator: Reggie Chavez MD WBC (Bld) [#/Vol] 8.7 10*3/uL Normal 3.5-11.3 [facility] Comment on above: Performed By: #### R EJEC #### [address] [address] L[employer] M[employer] Equipment Operator: Reggie Chavez MD Comp Metabolic Pr/rfx MGon 0 04-06-2023 Albumin [Mass/Vol] 3.7 g/dL Normal 3.5-5.2 [facility] Comment on above: Performed By: #### C MPX #### [address] [address] L[employer] M[employer] Equipment Operator: Reggie Chavez MD Albumin/Glob Ratio 1.2 Normal 1.0-2.5 [facility] Comment on above: Performed By: #### C MPX #### [address] [address] L[employer] Equipment Operator: Reggie Chavez MD Alkaline Phos 107 U/L Normal 40-129 [facility] Comment on above: Performed By: #### C MPX #### [address] [address] L[employer] M[employer] Equipment Operator: Reggie Chavez MD ALT [Catalytic activity/Vol] 22 U/L Normal 5-41 [facility] Comment on above: Performed By: #### C MPX #### [address] [address] L[employer] M[employer] Equipment Operator: Reggie Chavez MD Bilirubin [Mass/Vol] 0.5 mg/dL Normal 0.3-1.2 [facility] Comment on above: Performed By: #### C MPX #### [address] [address] L[employer] M[employer] Equipment Operator: Reggie Chavez MD Protein [Mass/Vol] 6.8 g/dL Normal 6.4-8.3 [facility] Comment on above: Performed By: #### C MPX #### [address] [address] L[employer] M[employer] Equipment Operator: Reggie Chavez MD Anion gap [Moles/Vol] 12 mmol/L Normal 9-17 [facility] Comment on above: Performed By: #### C MPX #### [address] [address] L[employer] M[employer] Equipment Operator: Reggie Chavez MD AST [Catalytic activity/Vol] 24 U/L Normal <40 [facility] Comment on above: Performed By: #### C MPX #### [address] [address] L[employer] M[employer] Equipment Operator: Reggie Chavez MD Calcium [Mass/Vol] 8.9 mg/dL Normal 8.6-10.4 [facility] Comment on above: Performed By: #### C MPX #### [address] [address] L[employer] M[employer] Equipment Operator: Reggie Chavez MD Chloride [Moles/Vol] 98 mmol/L Normal 98-107 [facility] Comment on above: Performed By: #### C MPX #### [address] [address] L[employer] M[employer] Equipment Operator: Reggie Chavez MD CO2 [Moles/Vol] 30 mmol/L Normal 20-31 [facility] Comment on above: Performed By: #### C MPX #### [address] [address] L[employer] Equipment Operator: Reggie Chavez MD Creatinine [Mass/Vol] 0.34 mg/dL Low 0.70-1.20 [facility] Comment on above: Performed By: #### C MPX #### [address] [address] L[employer] M[employer] Equipment Operator: Reggie Chavez MD GFR/1.73 sq M.predicted among non-blacks MDRD (S/P/Bld) [Vol rate/Area] mL/min/{1.73_m2} Normal >60 [facility] Comment on above: Result Comment: These [...] secretion. Performed By: #### C MPX #### [address] [address] L[employer] Equipment Operator: Reggie Chavez MD Glucose [Mass/Vol] 215 mg/dL High 70-99 [facility] Comment on above: Performed By: #### C MPX #### [address] [address] L[employer] M[employer] Equipment Operator: Reggie Chavez MD Potassium [Moles/Vol] 4.0 mmol/L Normal 3.7-5.3 [facility] Comment on above: Result Comment: SPEC IMEN SLIGHTLY HEMOLYZED, RESULTS MAY BE ADVERSELY AFFECTED. Performed By: #### C MPX #### [address] [address] L[employer] Equipment Operator: Reggie Chavez MD Sodium [Moles/Vol] 140 mmol/L Normal 135-144 [facility] Comment on above: Performed By: #### C MPX #### [address] [address] L[employer] Equipment Operator: Reggie Chavez MD Urea nitrogen [Mass/Vol] 18 mg/dL Normal 8-23 [facility] Comment on above: Performed By: #### C MPX #### [address] [address] L[employer] M[employer] Equipment Operator: Reggie Chavez MD Heparin Anti-Xaon 04-06-2023 Heparin Anti-Xa 0.36 IU/L Normal [facility] Comment on above: Performed By: #### D ADAM, HEPXA #### [address] [address] L[employer] M[employer] Equipment Operator: Reggie Chavez MD Heparin Anti-Xa 0.46 IU/L Normal [facility] Comment on above: Performed By: #### U JV, UAX #### [address] [place] [address] [employer] Equipment Operator: Reggie Chavez MD Lactic Acidon 04-06-2023 Lactic Acid,Whole Bl 1.0 mmol/L Normal 0.7-2.1 [facility] Comment on above: Performed By: #### H EPXA #### [facility] [place] [address] [employer] M[employer] Equipment Operator: Reggie Chavez MD Phosphorus, Inorg.on 023 Phosphorus, Inorg. 3.2 mg/dL Normal 2.5-4.5 [facility] Comment on above: Performed By: #### H EPXA #### [facility] [place] [address] [employer] Equipment Operator: Reggie Chavez MD Procalcitoninon 04-06-2023 Procalcitonin 0.06 ng/mL Normal <0.09 [facility] Comment on above: Result Comment: Suspected [...] entered into the Change in Procalcitonin Calculator ([email or web address]) to determine the patient's Mortality Risk Prognosis In healthy neonates, plasma Procalcitonin (PCT) concentrations increase gradually after , reaching peak values at about 24 hours of age then decrease to normal values below 0.5 ng/mL by 48-72 hours of age. Performed By: #### R EJEC #### [facility] [address] [place] [address] L[employer] Equipment Operator: Reggie Chavez MD Resp Viral Panelon 3 Adenovirus Not detected Normal [facility] Comment on above: Performed By: #### U JV, UAX #### [facility] [address] [place] [address] L[employer] M[employer] Equipment Operator: MD Percy Anderson.parapertussis Not detected Normal [facility] Comment on above: Performed By: #### U JV, UAX #### [facility] [address] [place] [address] [employer] Equipment Operator: Reggie Chavez MD Bordetella pertussis Not detected Normal [facility] Comment on above: Performed By: #### U JV, UAX #### [facility] [facility] [address] [place] [address]663 [employer] Equipment Operator: Reggie Chavez MD Chlamyd.pneumoniae Not detected Normal [facility] Comment on above: Performed By: #### U JV, UAX #### [facility] [address] [place] [address]397 [employer] Equipment Operator: Reggie Chavez MD Coronavirus 229E Not detected Normal [facility] Comment on above: Performed By: #### U JV, UAX #### [facility] [address] [place] [address] 48731 [employer] Equipment Operator: Reggie Chavez MD Coronavirus HKU1 Not detected Normal [facility] Comment on above: Performed By: #### U JV, UAX #### [facility] [address] [place] [address] 47938 L[employer] M[employer] Equipment Operator: Reggie Chavez MD Coronavirus NL63 Not detected [facility] Comment on above: Performed By: #### U JV, UAX #### [facility] [address] [place] [address]62 [employer] Equipment Operator: Reggie Chavez MD Coronavirus OC43 Not detected Normal [facility] Comment on above: Performed By: #### U JV, UAX #### [facility] [address] [place] [address] 27616 [employer] Equipment Operator: Reggie Chavez MD Human Metapneumo Not detected Normal [facility] Comment on above: Performed By: #### U JV, UAX #### [facility] [address] [place] [address] 49140 [employer] Equipment Operator: Reggie Chavez MD Influenza A Not detected [facility] Comment on above: Performed By: #### U JV, UAX #### [facility] [address] [place] [address] 10997 [employer] Equipment Operator: Reggie Chavez MD Influenza B Not detected Normal [facility] Comment on above: Performed By: #### U JV, UAX #### [facility] [address] [place] [address] 26513 [employer] Equipment Operator: Reggie Chavez MD Mycoplas.pneumoniae Not detected Normal [facility] Comment on above: Result Comment: Perf ormed by multiplexed nucleic acid assay. Performed By: #### U JV, UAX #### [facility] [address] [place] [address] 47796 L[employer] Equipment Operator: Reggie Chavez MD Parainfluenza 1 Not detected Normal [facility] Comment on above: Performed By: #### U JV, UAX #### [facility] [address] [place] [address] 18847 L[employer] M[employer] Equipment Operator: Reggie Chavez MD Parainfluenza 2 Not detected Normal [facility] Comment on above: Performed By: #### U JV, UAX #### [facility] [address] [place] [address] 66644 L[employer] M[employer] Equipment Operator: Reggie Chavez MD Parainfluenza 3 Not detected Normal [facility] Comment on above: Performed By: #### U JV, UAX #### [facility] [address] [place] [address] 85950 L[employer] M[employer] Equipment Operator: Reggie Chavez MD Parainfluenza 4 Not detected Normal [facility] Comment on above: Performed By: #### U JV, UAX #### [address] [address] [employer] Equipment Operator: Reggie Chavez MD Resp Syncytial Virus Not detected Normal [facility] Comment on above: Performed By: #### U JV, UAX #### [address] [address] [employer] Equipment Operator: Reggie Chavez MD Rhino/Enterovirus Detected Abnormal [facility] Comment on above: Performed By: #### U JV, UAX #### [address] [address] L[employer] Equipment Operator: Reggie Chavez MD SARS-CoV-2 (COVID-19) RNA ZACHARIAH+probe Ql (Unsp spec) Not detected Normal [facility] Comment on above: Performed By: #### U JV, UAX #### [address] [address] [employer] Equipment Operator: Reggie Chavez MD TSH w/reflex to FT4on 2022 Thyroid Stim. Horm. 2.31 uIU/mL Normal 0.30-5.00 [facility] Comment on above: Performed By: #### H EPXA #### [address] [address] [employer] Equipment Operator: Reggie Chavez MD APTTon 04-05-2023 aPTT Coag (Bld) [Time] 27.1 s Normal 23.0-36.5 [facility] Comment on above: Result Comment: IV Heparin Therapy Range: 66.0-92.0 sec Performed By: #### B C #### [address] [address] L[employer] Equipment Operator: Reggie Chavez MD Basic Metabolic Profon 04-05 Anion gap [Moles/Vol] 15 mmol/L Normal 9-17 [facility] Comment on above: Performed By: #### U JV, UAX #### [facility] [address] [place] [address] 24705 L[employer] M[employer] Equipment Operator: Reggie Chavez MD Calcium [Mass/Vol] 9.5 mg/dL Normal 8.6-10.4 [facility] Comment on above: Performed By: #### U JV, UAX #### [facility] [address] [place] [address] 24561 L[employer] Equipment Operator: Reggie Chavez MD Chloride [Moles/Vol] 95 mmol/L Low 98-107 [facility] Comment on above: Performed By: #### U JV, UAX #### [facility] [address] [place] [address] 09579 L[employer] Equipment Operator: Reggie Chavez MD CO2 [Moles/Vol] 31 mmol/L Normal 20-31 [facility] Comment on above: Performed By: #### U JV, UAX #### [facility] [address] [place] [address] 55114 L[employer] M[employer] Equipment Operator: Reggie Chavez MD Creatinine [Mass/Vol] 0.53 mg/dL Low 0.70-1.20 [facility] Comment on above: Performed By: #### U JV, UAX #### [facility] [address] [place] [address] 97728 [employer] Operator: Reggie Chavez MD GFR/1.73 sq M.predicted among non-blacks MDRD (S/P/Bld) [Vol rate/Area] mL/min/{1.73_m2} Normal >60 [facility] Comment on above: Result Comment: These [...] Performed By: #### U JV, UAX #### [facility] [address] [place] [address] 39192 L[employer] Equipment Operator: Reggie Chavez MD Glucose [Mass/Vol] 203 mg/dL High 70-99 [facility] Comment on above: Performed By: #### U JV, UAX #### [facility] [address] [place] [address] 57123 L[employer] M[employer] Equipment Operator: Reggie Chavez MD Potassium [Moles/Vol] 4.4 mmol/L Normal 3.7-5.3 [facility] Comment on above: Performed By: #### U JV, UAX #### [facility] [address] [place] [address] 81463 L[employer] M[employer] Equipment Operator: Reggie Chavez MD Sodium [Moles/Vol] 141 mmol/L Normal 135-144 [facility] Comment on above: Performed By: #### U JV, UAX #### [facility] [address] [place] [address] 85051 L[employer] Equipment Operator: Reggie Chavez MD Urea nitrogen [Mass/Vol] 24 mg/dL High 8-23 [facility] Comment on above: Performed By: #### U JV, UAX #### [facility] [address] [place] [address] 14026 L[employer] Equipment Operator: Reggie Chavez MD Brain Natri. Peptideon 06-21 -2023 Natriuretic peptide B (Bld) [Mass/Vol] 143 pg/mL Normal <300 [facility] Comment on above: Result Comment: An age-independent cutoff point of 300 pg/ml has a 98% negative predictive value excluding acute heart failure. Performed By: #### U JV, UAX #### [address] [address] L[employer] Equipment Operator: Reggie Chavez MD CBC with Diffon 04-05-2023 Abs. Basophil 0.03 k/uL Normal 0.00-0.20 [facility] Comment on above: Performed By: #### U JV, UAX #### [address] [address] L[employer] M[employer] Equipment Operator: Reggie Chavez MD Abs.Imm.Granulocyte 0.06 k/uL Normal 0.00-0.30 [facility] Comment on above: Performed By: #### U JV, UAX #### [facility] [address] [place] [address] 59447 L[employer] Equipment Operator: Reggie Chavez MD Abs.Neutrophil (Seg) 6.08 k/uL Normal 1.50-8.10 [facility] Comment on above: Performed By: #### U JV, UAX #### [facility] [address] [place] [address] 72143 L[employer] Equipment Operator: Reggie Chavez MD Basophils/100 WBC (Bld) 0 % Normal 0-2 [facility] Comment on above: Performed By: #### U JV, UAX #### [facility] [address] [place] [address] 84222 L[employer] Equipment Operator: Reggie Chavez MD Eosinophils (Bld) [#/Vol] 0.12 10*3/uL Normal 0.00-0.44 [facility] Comment on above: Performed By: #### U JV, UAX #### [facility] [address] [place] [address] 92116 L[employer] Equipment Operator: Reggie Chavez MD Eosinophils/100 WBC (Bld) 1 % Normal 1-4 [facility] Comment on above: Performed By: #### U JV, UAX #### [address] [address] L[employer] Equipment Operator: Reggie Chavez MD Erythrocyte distribution width (RBC) [Ratio] 13.2 % Normal 11.8-14.4 [facility] Comment on above: Performed By: #### U JV, UAX #### [facility] [address] [place] [address] 03127 L[employer] Equipment Operator: Reggie Chavez MD Hematocrit (Bld) [Volume fraction] 48.0 % Normal 40.7-50.3 [facility] Comment on above: Performed By: #### U JV, UAX #### [address] [address] L[employer] Equipment Operator: Reggie Chavez MD Hemoglobin (Bld) [Mass/Vol] 15.4 g/dL Normal 13.0-17.0 [facility] Comment on above: Performed By: #### U JV, UAX #### [address] [address] L[employer] M[employer] Equipment Operator: Reggie Chavez MD Immature granulocytes/100 WBC (Bld) 1 % High 0 [facility] Comment on above: Performed By: #### U JV, UAX #### [address] [address] L[employer] M[employer] Equipment Operator: Reggie Chavez MD Lymphocytes (Bld) [#/Vol] 1.53 10*3/uL Normal 1.10-3.70 [facility] Comment on above: Performed By: #### U JV, UAX #### [facility] [address] [place] [address] 46598 L[employer] M[employer] Equipment Operator: Reggie Chavez MD Lymphocytes/100 WBC (Bld) 18 % Low 24-43 [facility] Comment on above: Performed By: #### U JV, UAX #### [address] [address] L[employer] Molding Equipment Operator: Reggie Chavez MD MCH (RBC) [Entitic mass] 33.2 pg Normal 25.2-33.5 [facility] Comment on above: Performed By: #### U JV, UAX #### [place] [address] [employer] Equipment Operator: Reggie Chavez MD MCHC (RBC) [Mass/Vol] 32.1 g/dL Normal 28.4-34.8 [facility] Comment on above: Performed By: #### U JV, UAX #### [place] [address] [employer] M[employer] Equipment Operator: Reggie Chavez MD MCV (RBC) [Entitic vol] 103.4 fL High 82.6-102.9 [facility] Comment on above: Performed By: #### U JV, UAX #### [place] [address] [employer] Equipment Operator: Reggie Chavez MD Monocytes (Bld) [#/Vol] 0.65 10*3/uL Normal 0.10-1.20 [facility] Comment on above: Performed By: #### U JV, UAX #### [place] [address] [employer] Equipment Operator: Reggie Chavez MD Monocytes/100 WBC (Bld) 8 % Normal 3-12 [facility] Comment on above: Performed By: #### U JV, UAX #### [place] [address] [employer] M[employer] Equipment Operator: Reggie Chavez MD Neutrophil (Seg) 72 % High 36-65 [facility] Comment on above: Performed By: #### U JV, UAX #### [address] [address] L[employer] M[employer] Equipment Operator: Reggie Chavez MD NRBC Automated 0.0 per 100 WBC Normal 0.0 [facility] Comment on above: Performed By: #### U JV, UAX #### [address] [address] L[employer] M[employer] Equipment Operator: Reggie Chavez MD Platelet mean volume (Bld) [Entitic vol] 10.3 fL Normal 8.1-13.5 [facility] Comment on above: Performed By: #### U JV, UAX #### [address] [address] L[employer] M[employer] Equipment Operator: Reggie Chavez MD Platelets (Bld) [#/Vol] 219 10*3/uL Normal 138-453 [facility] Comment on above: Performed By: #### U JV, UAX #### [address] [address] L[employer] M[employer] Equipment Operator: Reggie Chavez MD RBC (Bld) [#/Vol] 4.64 10*6/uL Normal 4.21-5.77 [facility] Comment on above: Performed By: #### U JV, UAX #### [address] [address] L[employer] Molding Equipment Operator: Reggie Chavez MD RBC morphology finding Nom (Bld) MACROCYTOSIS PRESENT Normal [facility] Comment on above: Performed By: #### U JV, UAX #### [address] [address] L[employer] M[employer] Equipment Operator: Reggie Chavez MD WBC (Bld) [#/Vol] 8.5 10*3/uL Normal 3.5-11.3 [facility] Comment on above: Performed By: #### U JV, UAX #### [facility] [address] [place] [address] 21416 Lens M[employer] Equipment Operator: Reggie Chavez MD Heparin Anti-Xaon 04-05-2023 Heparin Anti-Xa <0.10 Normal [facility] Comment on above: Performed By: #### B C #### [address] [address] L[employer] M[employer] Equipment Operator: Reggie Chavez MD Magnesiumon 04-05-2023 Magnesium [Mass/Vol] 1.1 mg/dL Low 1.6-2.6 [facility] Comment on above: Performed By: #### B C #### [address] [address] L[employer] M[employer] Equipment Operator: Reggie Chavez MD PTon 04-05-2023 INR Coag (PPP) [Relative time] 1.0 {INR} Normal [facility] Comment on above: Result Comment: Therapeutic Range: Moderate Anticoagulant Intensity: INR = 2.0-3.0 High Anticoagulant Intensity: INR = 2.5-3.5 Performed By: #### B C #### [address] [address] L[employer] Equipment Operator: Reggie Chavez MD PT Coag (PPP) [Time] 12.9 s Normal 11.7-14.9 [facility] Comment on above: Performed By: #### B C #### [address] [address] L[employer] M[employer] Equipment Operator: Reggie Chavez MD Resp Viral Panelon 3 Source: .NASOPHARYNGEAL SWAB Normal [facility] Comment on above: Performed By: #### U JV, UAX #### [address] [address] L[employer] M[employer] Equipment Operator: Reggie Chavez MD Troponinon 04-05-2023 Troponin, High Sens 110 ng/L Critically high 0-22 [facility] Comment on above: Result Comment: High Sensitivity Troponin values cannot be compared with other Troponin methodologies. Performed By: #### V BG #### [facility] [address] [place] [address] L[employer] M[employer] Equipment Operator: Reggie Chavez MD Troponin, High Sens 122 ng/L Critically high 0-22 [facility] Comment on above: Result Comment: High Sensitivity Troponin values cannot be compared with other Troponin methodologies. Performed By: #### B C #### [address] [place] [address] L[employer] M[employer] Equipment Operator: Reggie Chavez MD XR CHEST PORTABLEon 04-05-20 XR CHEST PORTABLE EXAMINATION: ONE XRAY VIEW OF THE CHEST 04/05/2023 7:20 pm COMPARISON: None. HISTORY: Acute cough and shortness of breath. FINDINGS: Normal cardiomediastinal silhouette. Mild bibasilar atelectasis. No significant pleural effusion. No pneumothorax. IMPRESSION: Mild bibasilar atelectasis. Interpreted by: Glenna Bethea MD Signed by: Glenna Bethea MD 04/05/23 Final result Normal [facility] Orders Onlyon 03-20-2023 Orders Only [id number] Evgeny Delgado 1955 M Date Provider Department Center 03/20/2023 [facility] CARD ND HeartVAS Family History Problem Relation Age of Onset Other Father Family Status - Relation Status Age at Father Normal [facility] CBC AUTO DIFFon 02-27-2023 BASO # 0.0 103/ul Normal 0.0-0.1 [facility] Comment on above: Performed By: #### P OCGLUC #### [facility] [address] [address] [address] Raymond Walsh Basophils/100 WBC (Bld) 0.4 % Normal 0.2-2.0 [facility] Comment on above: Performed By: #### P OCGLUC #### [facility] [address] [place] [address] Dr. Raymond Walsh EO # 0.2 103/ul Normal 0.0-0.7 [facility] Comment on above: Performed By: #### P OCGLUC #### [facility] [address] [address] [address] Raymond Walsh Eosinophils/100 WBC (Bld) 1.7 % Normal 0.9-7.0 [facility] Comment on above: Performed By: #### P OCGLUC #### [facility] [address] [address] [address] Raymond Walsh Erythrocyte distribution width (RBC) [Ratio] 14.6 % Normal 11.0-15.0 [facility] Comment on above: Performed By: #### P OCGLUC #### [facility] [address] [address] [address] Raymond Walsh Hematocrit (Bld) [Volume fraction] 49.5 % Normal 42.0-54.0 [facility] Comment on above: Performed By: #### P OCGLUC #### [facility] [address] [place] [address] Dr. Raymond Walsh Hemoglobin (Bld) [Mass/Vol] 15.9 g/dL Normal 14.0-18.0 [facility] Comment on above: Performed By: #### P OCGLUC #### [facility] [address] [address] [address] Raymond Walsh IG # 0.06 10e3/ul Critically high 0.00-0.03 [facility] Comment on above: Performed By: #### P OCGLUC #### [facility] [address] [address] [address] Raymond Walsh IG % 0.6 % Critically high 0.0-0.5 [facility] Comment on above: Performed By: #### P OCGLUC #### [facility] [address] [place] [address] Dr. Raymond Walsh LYMPH # 1.8 103/ul Normal 1.2-3.8 [facility] Comment on above: Performed By: #### P OCGLUC #### [facility] [address] [address] [address] Raymond Walsh Lymphocytes/100 WBC (Bld) 18.8 % Critically low 20.5-60.0 [facility] Comment on above: Performed By: #### P OCGLUC #### [facility] [address] [address] [address] Raymond Walsh MANUAL DIFF REQ NO Normal [facility] Comment on above: Performed By: #### P OCGLUC #### [facility] [address] [address] [address] Raymond Walsh MCH (RBC) [Entitic mass] 32.3 pg Normal 25.9-34.0 [facility] Comment on above: Performed By: #### P OCGLUC #### [facility] [address] [address] [address] Raymond Walsh MCHC (RBC) [Mass/Vol] 32.1 g/dL Normal 29.9-35.2 [facility] Comment on above: Performed By: #### P OCGLUC #### [facility] [address] [place] [address] Dr. Raymond Walsh MCV (RBC) [Entitic vol] 100.6 fL Critically high 80.0-94.0 [facility] Comment on above: Performed By: #### P OCGLUC #### [facility] [address] [place] [address] Dr. Raymond Walsh MONO # 0.5 103/ul Normal 0.3-0.8 [facility] Comment on above: Performed By: #### P OCGLUC #### [facility] [address] [place] [address] Dr. Raymond Walsh Monocytes/100 WBC (Bld) 5.5 % Normal 1.7-12.0 [facility] Comment on above: Performed By: #### P OCGLUC #### [facility] [address] [place] [address] Dr. Raymond Walsh NEUT # 7.0 103/ul Critically high 1.4-6.5 [facility] Comment on above: Performed By: #### P OCGLUC #### [facility] [address] [place] [address] Dr. Raymond Walsh Neutrophils/100 WBC (Bld) 73.0 % Normal 43.0-75.0 [facility] Comment on above: Performed By: #### P OCGLUC #### [facility] [address] [address] [address] Raymond Walsh Platelet mean volume (Bld) [Entitic vol] 10.0 fL Normal 9.5-13.5 [facility] Comment on above: Performed By: #### P OCGLUC #### [facility] [address] [address] [address] Raymond Walsh PLT 201 103/ul Normal 150-450 [facility] Comment on above: Performed By: #### P OCGLUC #### [facility] [address] [address] [address] Raymond Walsh RBC 4.92 106/ul Normal 4.70-6.10 [facility] Comment on above: Performed By: #### P OCGLUC #### [facility] [address] [address] [address] Raymond Walsh WBC 9.6 103/ul Normal 4.0-11.0 [facility] Comment on above: Performed By: #### P OCGLUC #### [facility] [address] [address] [address] Raymond Walsh Office Visiton 02-27-2023 Follow-up visit [id number] Evgeny Delgado 1955 M Date Provider Department Center 02/27/[address] [facility] Family History Problem Relation Age of Onset Other Father Family Status - Relation Status Age at Father Level of Service:87875 [place] OFFICE/OUTPATIENT ESTABLISHED HIGH MDM 40-54 MIN Reason for Visit and Comments: Coronary Artery Disease [187] Congestive Heart Failure [127] Valve Disorder [3372] Normal [facility] PROF CHEM 8 (BAS METB)on Anion gap [Moles/Vol] 11.0 mmol/L Normal [facility] Comment on above: Performed By: #### C BC #### [facility] [address] [address] [address] Raymond Walsh Calcium [Mass/Vol] 9.6 mg/dL Normal 8.5-10.1 [facility] Comment on above: Performed By: #### C BC #### [facility] [address] [address] [address] Raymond Walsh Chloride [Moles/Vol] 100 mmol/L Normal 98-107 [facility] Comment on above: Performed By: #### C BC #### [facility] [address] [address] [address] Raymond Walsh CO2 [Moles/Vol] 36.4 mmol/L Critically high 21.0-32.0 [facility] Comment on above: Performed By: #### C BC #### [facility] [address] [address] [address] Raymond Walsh Creatinine [Mass/Vol] 0.66 mg/dL Critically low 0.70-1.30 [facility] Comment on above: Performed By: #### C BC #### [facility] [address] [place] [address] Dr. Raymond Walsh EGFR-AF AZERBAIJANI >60 Normal >=60 [facility] Comment on above: Performed By: #### C BC #### [facility] [address] [place] [address] Dr. Raymond Walsh EGFR-NON AF AZERBAIJANI >60 Normal >=60 [facility] Comment on above: Performed By: #### C BC #### [facility] [address] [place] [address] Dr. Raymond Walsh Glucose [Mass/Vol] 160 mg/dL Critically high 74-106 [facility] Comment on above: Performed By: #### C BC #### [facility] [address] [place] [address] Dr. Raymond Walsh Potassium [Moles/Vol] 4.4 mmol/L Normal 3.5-5.1 [facility] Comment on above: Performed By: #### C BC #### [facility] [address] [place] [address] Dr. Raymond Walsh Sodium [Moles/Vol] 143 mmol/L Normal 136-145 [facility] Comment on above: Performed By: #### C BC #### [facility] [address] [place] [address] Dr. Raymond Walsh Urea nitrogen [Mass/Vol] 23.0 mg/dL Critically high 7.0-18.0 [facility] Comment on above: Performed By: #### C BC #### [facility] [address] [address] [address] Raymond Walsh Urea nitrogen/Creatinine [Mass ratio] 34.8 mg/mg Normal [facility] Comment on above: Performed By: #### C BC #### [facility] [address] [address] [address] Raymond Walsh GLYCOHEMOGLOBIN A1Con 2022 ADA RECOMMENDATION SEE BELOW Normal [facility] Comment on above: Result Comment: ADA RECOMMENDED LIMIT 4.0 - 6.0 ADA THERAPEUTIC TARGET < 7.0 ACTION SUGGESTED > 7.0 Performed By: #### C MP, BNP #### [facility] [address] [place] [address] Dr. Raymond Walsh Glucose [Mass/Vol] 174 mg/dL Normal [facility] Comment on above: Performed By: #### C MP, BNP #### [facility] [address] [place] [address] Dr. Raymond Walsh HbA1c (Bld) [Mass fraction] 7.7 % Critically high 4.5-6.2 [facility] Comment on above: Performed By: #### C MP, BNP #### [facility] [address] [place] [address] Dr. Raymond Walsh ECHOCARDIO M/2D COMPLETEon 0 01-18-2023 ECHOCARDIO M/2D COMPLETE Patient: EVGENY DELGADO Exam Date: 01/18/2023 : 1955 Gender:M Ordering : STEPHEN KENNEDY [facility] Admission #: [id number] Family : DR MARCO BOSCH M.D. Order #: [id number] CLICK HERE TO VIEW EXAM ECHOCARDIOGRAM REPORT [...] Christopher Carreon M.D. on 01/19/2023 at 18:52 [facility] Office Visiton 12-21-2022 Follow-up visit [id number] Azael Delgadoall 1955 M Date Provider Department Center 12/21/2022 STEPHEN EWING Family History Problem Relation Age of Onset Other Father Family Status - Relation Status Age at Father Level of Service:43175 [place] OFFICE/OUTPATIENT ESTABLISHED MOD MDM 30-39 MIN Reason for Visit and Comments: Coronary Artery Disease [187] Congestive Heart Failure [127] Hypertension [447304] Valve Disorder [3372] [facility] Orders Onlyon 12-21-2022 Orders Only [id number] Evgeny Delgado 1955 M Date Provider Department Center 12/21/2022 NITA BULL Family History Problem Relation Age of Onset Other Father Family Status - Relation Status Age at Father [facility] Follow-Upon 09-01-2022 Follow-Up [id number] Azael Delgadoall 1955 M Date Provider Department Center 09/01/2022 STEPHEN EWING Family History Problem Relation Age of Onset Other Father Family Status - Relation Status Age at Father Level of Service:90709 [place] OFFICE/OUTPATIENT ESTABLISHED MOD MDM 30-39 MIN Reason for Visit and Comments: Congestive Heart Failure [127] Normal [facility] DSon 08-08-2022 DS Admission Admitted 08/08/2022 [...] PROCEDURE: 08/08/2022 PERFORMING PHYSICIAN: Dr. Mohan Cam CLOTH EDGE SINGER: None INDICATIONS FOR PROCEDURE: 1. History of [...] type 2, hypertension was recently admitted to [facility] for heart failure symptoms. He was [...] Time Provider Department Center 08/08/2022 6:05 PM [facility] CV EKG/HOLTER ROOM [facility] HEART [place] HeartVAS 09/01/2022 1:40 PM Stephen Kennedy NP CARD [facility] Test Results Pending At Discharge Normal [facility] CBC AUTO DIFFon 08-05-2022 BASO # 0.0 103/ul Normal 0.0-0.1 [facility] Comment on above: Performed By: #### C BC #### [facility] [address] [address] [address] Raymond Walsh Basophils/100 WBC (Bld) 0.4 % Normal 0.2-2.0 [facility] Comment on above: Performed By: #### C BC #### [facility] [address] [address] [address] Raymond Walsh EO # 0.2 103/ul Normal 0.0-0.7 [facility] Comment on above: Performed By: #### C BC #### [facility] [address] [address] [address] Raymond Walsh Eosinophils/100 WBC (Bld) 1.6 % Normal 0.9-7.0 [facility] Comment on above: Performed By: #### C BC #### [facility] [address] [address] [address] Raymond Walsh Erythrocyte distribution width (RBC) [Ratio] 18.1 % Critically high 11.0-15.0 [facility] Comment on above: Performed By: #### C BC #### [facility] [address] [place] [address] Dr. Raymond Walsh Hematocrit (Bld) [Volume fraction] 43.3 % Normal 42.0-54.0 [facility] Comment on above: Performed By: #### C BC #### [facility] [address] [place] [address] Dr. Raymond Walsh Hemoglobin (Bld) [Mass/Vol] 13.4 g/dL Critically low 14.0-18.0 [facility] Comment on above: Performed By: #### C BC #### [facility] [address] [place] [address] Dr. Raymond Walsh IG # 0.06 10e3/ul Critically high 0.00-0.03 [facility] Comment on above: Performed By: #### C BC #### [facility] [address] [place] [address] Dr. Raymond Walsh IG % 0.7 % Critically high 0.0-0.5 [facility] Comment on above: Performed By: #### C BC #### [facility] [address] [place] [address] Dr. Raymond Walsh LYMPH # 1.7 103/ul Normal 1.2-3.8 [facility] Comment on above: Performed By: #### C BC #### [facility] [address] [place] [address] Dr. Raymond Walsh Lymphocytes/100 WBC (Bld) 18.6 % Critically low 20.5-60.0 [facility] Comment on above: Performed By: #### C BC #### [facility] [address] [place] [address] Dr. Raymond Walsh MANUAL DIFF REQ NO Normal [facility] Comment on above: Performed By: #### C BC #### [facility] [address] [place] [address] Dr. Raymond Walsh MCH (RBC) [Entitic mass] 30.9 pg Normal 25.9-34.0 [facility] Comment on above: Performed By: #### C BC #### [facility] [address] [place] [address] Dr. Raymond Walsh MCHC (RBC) [Mass/Vol] 30.9 g/dL Normal 29.9-35.2 [facility] Comment on above: Performed By: #### C BC #### [facility] [address] [place] [address] Dr. Raymond Walsh MCV (RBC) [Entitic vol] 99.8 fL Critically high 80.0-94.0 [facility] Comment on above: Performed By: #### C BC #### [facility] [address] [place] [address] Dr. Raymond Walsh MONO # 0.6 103/ul Normal 0.3-0.8 [facility] Comment on above: Performed By: #### C BC #### [facility] [address] [place] [address] Dr. Raymond Walsh Monocytes/100 WBC (Bld) 6.1 % Normal 1.7-12.0 [facility] Comment on above: Performed By: #### C BC #### [facility] [address] [place] [address] Dr. Raymond Walsh NEUT # 6.6 103/ul Critically high 1.4-6.5 [facility] Comment on above: Performed By: #### C BC #### [facility] [address] [place] [address] Dr. Raymond Walsh Neutrophils/100 WBC (Bld) 72.6 % Normal 43.0-75.0 [facility] Comment on above: Performed By: #### C BC #### [facility] [address] [place] [address] Dr. Raymond Walsh Platelet mean volume (Bld) [Entitic vol] 10.2 fL Normal 9.5-13.5 [facility] Comment on above: Performed By: #### C BC #### [facility] [address] [address] [address] Raymond Walsh PLT 232 103/ul Normal 150-450 [facility] Comment on above: Performed By: #### C BC #### [facility] [address] [place] [address] Dr. Raymond Walsh RBC 4.34 106/ul Critically low 4.70-6.10 [facility] Comment on above: Performed By: #### C BC #### [facility] [address] [place] [address] Dr. Raymond Walsh WBC 9.1 103/ul Normal 4.0-11.0 [facility] Comment on above: Performed By: #### C BC #### [facility] [address] [place] [address] Dr. Raymond Walsh [facility] SARS-CoV-2 (COVID-19) RNA ZACHARIAH+probe Ql (Unsp spec) Not detected Normal NOT DETECTED [facility] Comment on above: Result Comment: This test is not yet approved or cleared by the [place] FDA. When there are no FDA-approved or cleared tests available, and other criteria are met, FDA can make tests available under an emergency access mechanism called an Emergency Use Authorization (EUA). The EUA for this test is supported by the [employer] Operator of Health and Human Service's (HHS's) declaration [...] SARS-CoV-2. Performed By: #### C VDTBH #### [facility] [address] [place] [address] Dr. Raymond Walsh PROF CHEM 8 (BAS METB)on Anion gap [Moles/Vol] 9.7 mmol/L Normal [facility] Comment on above: Performed By: #### C VDTBH #### [facility] [address] [place] [address] Dr. Raymond Walsh Calcium [Mass/Vol] 9.1 mg/dL Normal 8.5-10.1 [facility] Comment on above: Performed By: #### C VDTBH #### [facility] [address] [place] [address] Dr. Raymond Walsh Chloride [Moles/Vol] 101 mmol/L Normal 98-107 [facility] Comment on above: Performed By: #### C VDTBH #### [facility] [address] [place] [address] Dr. Raymond Walsh CO2 [Moles/Vol] 34.0 mmol/L Critically high 21.0-32.0 [facility] Comment on above: Performed By: #### C VDTBH #### [facility] [address] [place] [address] Dr. Raymond Walsh Creatinine [Mass/Vol] 0.56 mg/dL Critically low 0.70-1.30 [facility] Comment on above: Performed By: #### C VDTBH #### [facility] [address] [place] [address] Dr. Raymond Walsh EGFR-AF AZERBAIJANI >60 Normal >=60 [facility] Comment on above: Performed By: #### C VDTBH #### [facility] [address] [place] [address] Dr. Raymond Walsh EGFR-NON AF AZERBAIJANI >60 Normal >=60 [facility] Comment on above: Performed By: #### C VDTBH #### [facility] [address] [address] [address] Raymond Walsh Glucose [Mass/Vol] 165 mg/dL Critically high 74-106 [facility] Comment on above: Performed By: #### C VDTBH #### [facility] [address] [address] [address] Raymond Walsh Potassium [Moles/Vol] 4.7 mmol/L Normal 3.5-5.1 [facility] Comment on above: Performed By: #### C VDTBH #### [facility] [address] [address] [address] Raymond Walsh Sodium [Moles/Vol] 140 mmol/L Normal 136-145 [facility] Comment on above: Performed By: #### C VDTBH #### [facility] [address] [address] [address] Raymond Walsh Urea nitrogen [Mass/Vol] 15.0 mg/dL Normal 7.0-18.0 [facility] Comment on above: Performed By: #### C VDTBH #### [facility] [address] [address] [address] Raymond Walsh Urea nitrogen/Creatinine [Mass ratio] 26.8 mg/mg Normal [facility] Comment on above: Performed By: #### C VDTBH #### [facility] [address] [address] [address] Raymond Walsh PROTIMEon 08-05-2022 INR Coag (PPP) [Relative time] 1.02 {INR} Normal [facility] Comment on above: Performed By: #### P OCGLUC #### [facility] [address] [address] [address] Raymond Walsh INR GUIDELINES SEE BELOW Normal [facility] Comment on above: Result Comment: EDUARDO RED INR: 2.0 - 3.0 CONDITIONS NOT LISTED BELOW 2.5 - 3.5 FOR PROSTHETIC HEART VALVE REPLACEMENT 2.5 - 3.5 RECURRENT THROMBOSIS Performed By: #### P OCGLUC #### [facility] [address] [place] [address] Dr. Raymond Walsh PT Coag (PPP) [Time] 11.0 s Normal 9.0-11.6 [facility] Comment on above: Performed By: #### P OCGLUC #### [facility] [address] [place] [address] Dr. Raymond Walsh Orders Onlyon 08-04-2022 Orders Only [id number] Evgeny Delgado 1955 M Date Provider Department Center 08/04/2022 Black-KVNG TELLO [facility] C Family History Problem Relation Age of Onset Other Father Family Status - Relation Status Age at Father Normal [facility] Orders Onlyon 08-03-2022 Orders Only [id number] Evgeny Delgado 1955 M Date Provider Department Center 08/03/2022 BRADY MARTINEZ [facility] C Family History Problem Relation Age of Onset Other Father Family Status - Relation Status Age at Father Normal [facility] Orders Onlyon 07-29-2022 Orders Only [id number] Evgeny Delgado 1955 M Date Provider Department Center 07/29/2022 EVELIN VALDEZ [facility] C Family History Problem Relation Age of Onset Other Father Family Status - Relation Status Age at Father Normal [facility] Office Visiton 07-05-2022 Follow-up visit [id number] Evgeny Delgado 1955 M Date Provider Department Center 07/05/[address] [facility] Family History Problem Relation Age of Onset Other Father Family Status - Relation Status Age at Father Level of Service:86559 [place] OFFICE/OUTPATIENT NEW HIGH MDM 60-74 MINUTES Normal [facility] BNPon 06-27-2022 Natriuretic peptide B (Bld) [Mass/Vol] 219.0 pg/mL Normal <=900.0 [facility] Comment on above: Performed By: #### C MP, BNP #### [facility] [address] [place] [address] Dr. Raymond Walsh CBC AUTO DIFFon 06-27-2022 BASO # 0.0 103/ul Normal 0.0-0.1 [facility] Comment on above: Performed By: #### S PUTGS #### [facility] [address] [place] [address] Dr. Raymond Walsh Basophils/100 WBC (Bld) 0.4 % Normal 0.2-2.0 [facility] Comment on above: Performed By: #### S PUTGS #### [facility] [address] [place] [address] Dr. Raymond Walsh EO # 0.1 103/ul Normal 0.0-0.7 [facility] Comment on above: Performed By: #### S PUTGS #### [facility] [address] [place] [address] Dr. Raymond Walsh Eosinophils/100 WBC (Bld) 1.1 % Normal 0.9-7.0 [facility] Comment on above: Performed By: #### S PUTGS #### [facility] [address] [place] [address] Dr. Raymond Walsh Erythrocyte distribution width (RBC) [Ratio] 15.3 % Critically high 11.0-15.0 [facility] Comment on above: Performed By: #### S PUTGS #### [facility] [address] [place] [address] Dr. Raymond Walsh Hematocrit (Bld) [Volume fraction] 44.4 % Normal 42.0-54.0 [facility] Comment on above: Performed By: #### S PUTGS #### [facility] [address] [place] [address] Dr. Raymond Walsh Hemoglobin (Bld) [Mass/Vol] 14.2 g/dL Normal 14.0-18.0 [facility] Comment on above: Performed By: #### S PUTGS #### [facility] [address] [place] [address] Dr. Raymond Walsh IG # 0.24 10e3/ul Critically high 0.00-0.03 [facility] Comment on above: Performed By: #### S PUTGS #### [facility] [address] [place] [address] Dr. Raymond Walsh IG % 2.5 % Critically high 0.0-0.5 [facility] Comment on above: Performed By: #### S PUTGS #### [facility] [address] [place] [address] Dr. Raymond Walsh LYMPH # 2.7 103/ul Normal 1.2-3.8 [facility] Comment on above: Performed By: #### S PUTGS #### [facility] [address] [place] [address] Dr. Raymond Walsh Lymphocytes/100 WBC (Bld) 27.4 % Normal 20.5-60.0 [facility] Comment on above: Performed By: #### S PUTGS #### [facility] [address] [place] [address] Dr. Raymond Walsh MANUAL DIFF REQ NO Normal [facility] Comment on above: Performed By: #### S PUTGS #### [facility] [address] [place] [address] Dr. Raymond Walsh MCH (RBC) [Entitic mass] 30.8 pg Normal 25.9-34.0 [facility] Comment on above: Performed By: #### S PUTGS #### [facility] [address] [place] [address] Dr. Raymond Walsh MCHC (RBC) [Mass/Vol] 32.0 g/dL Normal 29.9-35.2 [facility] Comment on above: Performed By: #### S PUTGS #### [facility] [address] [place] [address] Dr. Raymond Walsh MCV (RBC) [Entitic vol] 96.3 fL Critically high 80.0-94.0 [facility] Comment on above: Performed By: #### S PUTGS #### [facility] [address] [place] [address] Dr. Raymond Walsh MONO # 0.7 103/ul Normal 0.3-0.8 [facility] Comment on above: Performed By: #### S PUTGS #### [facility] [address] [place] [address] Dr. Raymond Walsh Monocytes/100 WBC (Bld) 6.9 % Normal 1.7-12.0 [facility] Comment on above: Performed By: #### S PUTGS #### [facility] [address] [place] [address] Dr. Raymond Walsh NEUT # 6.0 103/ul Normal 1.4-6.5 [facility] Comment on above: Performed By: #### S PUTGS #### [facility] [address] [place] [address] Dr. Raymond Walsh Neutrophils/100 WBC (Bld) 61.7 % Normal 43.0-75.0 [facility] Comment on above: Performed By: #### S PUTGS #### [facility] [address] [place] [address] Dr. Raymond Walsh Platelet mean volume (Bld) [Entitic vol] 9.8 fL Normal 9.5-13.5 [facility] Comment on above: Performed By: #### S PUTGS #### [facility] [address] [place] [address] Dr. Raymond Walsh PLT 221 103/ul Normal 150-450 [facility] Comment on above: Performed By: #### S PUTGS #### [facility] [address] [place] [address] Dr. Raymond Walsh RBC 4.61 106/ul Critically low 4.70-6.10 [facility] Comment on above: Performed By: #### S PUTGS #### [facility] [address] [place] [address] Dr. Raymond Walsh WBC 9.7 103/ul Normal 4.0-11.0 [facility] Comment on above: Performed By: #### S PUTGS #### [facility] [address] [place] [address] HEAD WO CONon [...] by: JULIOCESAR EUBANKS Date: 2022-06-27 09:48 Normal [facility] POINT OF CARE GLUCOSEon 06-16 Glucose [Mass/Vol] 225 mg/dL Critically high 74-106 [facility] Comment on above: Performed By: #### C MP, BNP #### [facility] [address] [place] [address] Dr. Raymond aWlsh Glucose [Mass/Vol] 84 mg/dL Normal 74-106 [facility] Comment on above: Performed By: #### P OCGLUC #### [facility] [address] [address] [address] Raymond Walsh PROF 14(COMP METB)on 022 Albumin [Mass/Vol] 3.2 g/dL Critically low 3.4-5.0 [facility] Comment on above: Performed By: #### C MP, BNP #### [facility] [address] [place] [address] Dr. Raymond Walsh Albumin/Globulin [Mass ratio] 1.0 {ratio} Normal [facility] Comment on above: Performed By: #### C MP, BNP #### [facility] [address] [address] [address] Raymond Walsh ALP [Catalytic activity/Vol] 105 U/L Normal 46-116 [facility] Comment on above: Performed By: #### C MP, BNP #### [facility] [address] [address] [address] Raymond Walsh ALT [Catalytic activity/Vol] 56 U/L Normal 16-63 [facility] Comment on above: Performed By: #### C MP, BNP #### [facility] [address] [address] [address] Raymond Walsh Anion gap [Moles/Vol] 8.4 mmol/L Normal [facility] Comment on above: Performed By: #### C MP, BNP #### [facility] [address] [address] [address] Raymond Walsh AST [Catalytic activity/Vol] 25 U/L Normal 15-37 [facility] Comment on above: Performed By: #### C MP, BNP #### [facility] [address] [address] [address] Raymond Walsh Bilirubin [Mass/Vol] 0.5 mg/dL Normal 0.2-1.0 [facility] Comment on above: Performed By: #### C MP, BNP #### [facility] [address] [address] [address] Raymond Walsh Calcium [Mass/Vol] 9.3 mg/dL Normal 8.5-10.1 [facility] Comment on above: Performed By: #### C MP, BNP #### [facility] [address] [address] [address] Raymond Walsh Chloride [Moles/Vol] 97 mmol/L Critically low 98-107 [facility] Comment on above: Performed By: #### C MP, BNP #### [facility] [address] [address] [address] Raymond Walsh CO2 [Moles/Vol] 33.1 mmol/L Critically high 21.0-32.0 [facility] Comment on above: Performed By: #### C MP, BNP #### [facility] [address] [address] [address] Raymond Walsh Creatinine [Mass/Vol] 0.80 mg/dL Normal 0.70-1.30 [facility] Comment on above: Performed By: #### C MP, BNP #### [facility] [address] [address] [address] Raymond Walsh EGFR-AF AZERBAIJANI >60 Normal >=60 [facility] Comment on above: Performed By: #### C MP, BNP #### [facility] [address] [address] [address] Raymond Walsh EGFR-NON AF AZERBAIJANI >60 Normal >=60 [facility] Comment on above: Performed By: #### C MP, BNP #### [facility] [address] [address] [address] Raymond Walsh Globulin (S) [Mass/Vol] 3.3 g/dL Normal [facility] Comment on above: Performed By: #### C MP, BNP #### [facility] [address] [address] [address] Raymond Walsh Glucose [Mass/Vol] 98 mg/dL Normal 74-106 [facility] Comment on above: Performed By: #### C MP, BNP #### [facility] [address] [address] [address] Raymond Walsh Potassium [Moles/Vol] 4.5 mmol/L Normal 3.5-5.1 [facility] Comment on above: Performed By: #### C MP, BNP #### [facility] [address] [address] [address] Raymond Walsh Protein [Mass/Vol] 6.5 g/dL Normal 6.4-8.2 [facility] Comment on above: Performed By: #### C MP, BNP #### [facility] [address] [address] [address] Raymond Walsh Sodium [Moles/Vol] 134 mmol/L Critically low 136-145 [facility] Comment on above: Performed By: #### C MP, BNP #### [facility] [address] [address] [address] Raymond Walsh Urea nitrogen [Mass/Vol] 42.0 mg/dL Critically high 7.0-18.0 [facility] Comment on above: Performed By: #### C MP, BNP #### [facility] [address] [address] [address] Raymond Walsh Urea nitrogen/Creatinine [Mass ratio] 52.5 mg/mg Normal [facility] Comment on above: Performed By: #### C MP, BNP #### [facility] [address] [place] [address] Dr. Raymond Walsh BNPon 06-26-2022 Natriuretic peptide B (Bld) [Mass/Vol] 550.0 pg/mL Normal <=900.0 [facility] Comment on above: Performed By: #### C MP, BNP #### [facility] [address] [place] [address] Dr. Raymond Walsh Natriuretic peptide B (Bld) [Mass/Vol] 508.0 pg/mL Normal <=900.0 [facility] Comment on above: Performed By: #### S PUTGS #### [facility] [address] [place] [address] Dr. Raymond Walsh CARDIAC FABIAN 3-6on 2 CK [Catalytic activity/Vol] 138 U/L Normal 39-308 [facility] Comment on above: Performed By: #### P OCGLUC #### [facility] [address] [place] [address] Dr. Raymond Walsh CK.MB [Mass/Vol] 7.50 ng/mL Critically high <=3.60 [facility] Comment on above: Performed By: #### P OCGLUC #### [facility] [address] [place] [address] Dr. Raymond Walsh HSTROP 12.6 pg/mL Normal 4.0-76.1 [facility] Comment on above: Result Comment: CUT- OFF POINTS HAVE BEEN ESTABLISHED BASED ON THE FOURTH UNIVERSAL DEFINITIONS OF MYOCARDIAL INFARCTION. THE UPPER REFERENCE LIMIT (URL) OF TROPONIN, DEFINED THE 99TH PERCENTILE OF cTnI DISTRIBUTION IN A REFERENCE POPULATION, HAS BEEN CONFIRMED THE DECISION THRESHOLD FOR RI DIAGNOSIS. Performed By: #### P OCGLUC #### [facility] [address] [place] [address] Dr. Raymond Walsh CK [Catalytic activity/Vol] 124 U/L Normal 39-308 [facility] Comment on above: Performed By: #### P OCGLUC #### [facility] [address] [place] [address] Dr. Raymond Walsh CK.MB [Mass/Vol] 7.35 ng/mL Critically high <=3.60 [facility] Comment on above: Performed By: #### P OCGLUC #### [facility] [address] [place] [address] Dr. Raymond Walsh HSTROP 11.8 pg/mL Normal 4.0-76.1 [facility] Comment on above: Result Comment: CUT- OFF POINTS HAVE BEEN ESTABLISHED BASED ON THE FOURTH UNIVERSAL DEFINITIONS OF MYOCARDIAL INFARCTION. THE UPPER REFERENCE LIMIT (URL) OF TROPONIN, DEFINED THE 99TH PERCENTILE OF cTnI DISTRIBUTION IN A REFERENCE POPULATION, HAS BEEN CONFIRMED THE DECISION THRESHOLD FOR RI DIAGNOSIS. Performed By: #### P OCGLUC #### [facility] [address] [place] [address] Dr. Raymond Walsh CBC AUTO DIFFon 06-26-2022 BASO # 0.1 103/ul Normal 0.0-0.1 [facility] Comment on above: Performed By: #### C MP, BNP #### [facility] [address] [place] [address] Dr. Raymond Walsh Basophils/100 WBC (Bld) 0.4 % Normal 0.2-2.0 [facility] Comment on above: Performed By: #### C MP, BNP #### [facility] [address] [place] [address] Dr. Raymond Walsh EO # 0.0 103/ul Normal 0.0-0.7 [facility] Comment on above: Performed By: #### C MP, BNP #### [facility] [address] [place] [address] Dr. Raymond Walsh Eosinophils/100 WBC (Bld) 0.1 % Critically low 0.9-7.0 [facility] Comment on above: Performed By: #### C MP, BNP #### [facility] [address] [place] [address] Dr. Raymond Walsh Erythrocyte distribution width (RBC) [Ratio] 15.2 % Critically high 11.0-15.0 [facility] Comment on above: Performed By: #### C MP, BNP #### [facility] [address] [place] [address] Dr. Raymond Walsh Hematocrit (Bld) [Volume fraction] 51.6 % Normal 42.0-54.0 [facility] Comment on above: Performed By: #### C MP, BNP #### [facility] [address] [place] [address] Dr. Raymond Walsh Hemoglobin (Bld) [Mass/Vol] 16.7 g/dL Normal 14.0-18.0 [facility] Comment on above: Performed By: #### C MP, BNP #### [facility] [address] [address] [address] Raymond Walsh IG # 0.41 10e3/ul Critically high 0.00-0.03 [facility] Comment on above: Performed By: #### C MP, BNP #### [facility] [address] [address] [address] Raymond Walsh IG % 2.9 % Critically high 0.0-0.5 [facility] Comment on above: Performed By: #### C MP, BNP #### [facility] [address] [place] [address] Dr. Raymond Walsh LYMPH # 2.3 103/ul Normal 1.2-3.8 [facility] Comment on above: Performed By: #### C MP, BNP #### [facility] [address] [address] [address] Raymond Walsh Lymphocytes/100 WBC (Bld) 16.1 % Critically low 20.5-60.0 [facility] Comment on above: Performed By: #### C MP, BNP #### [facility] [address] [address] [address] Raymond Walsh MANUAL DIFF REQ NO Normal [facility] Comment on above: Performed By: #### C MP, BNP #### [facility] [address] [address] [address] Raymond Walsh MCH (RBC) [Entitic mass] 30.4 pg Normal 25.9-34.0 [facility] Comment on above: Performed By: #### C MP, BNP #### [facility] [address] [place] [address] Dr. Raymond Walsh MCHC (RBC) [Mass/Vol] 32.4 g/dL Normal 29.9-35.2 [facility] Comment on above: Performed By: #### C MP, BNP #### [facility] [address] [place] [address] Dr. Raymond Walsh MCV (RBC) [Entitic vol] 93.8 fL Normal 80.0-94.0 [facility] Comment on above: Performed By: #### C MP, BNP #### [facility] [address] [place] [address] Dr. Raymond Walsh MONO # 1.1 103/ul Critically high 0.3-0.8 [facility] Comment on above: Performed By: #### C MP, BNP #### [facility] [address] [place] [address] Dr. Raymond Walsh Monocytes/100 WBC (Bld) 7.5 % Normal 1.7-12.0 [facility] Comment on above: Performed By: #### C MP, BNP #### [facility] [address] [place] [address] Dr. Raymond Walsh NEUT # 10.3 103/ul Critically high 1.4-6.5 [facility] Comment on above: Performed By: #### C MP, BNP #### [facility] [address] [place] [address] Dr. Raymond Walsh Neutrophils/100 WBC (Bld) 73.0 % Normal 43.0-75.0 [facility] Comment on above: Performed By: #### C MP, BNP #### [facility] [address] [place] [address] Dr. Raymond Walsh Platelet mean volume (Bld) [Entitic vol] 9.8 fL Normal 9.5-13.5 [facility] Comment on above: Performed By: #### C MP, BNP #### [facility] [address] [place] [address] Dr. Raymond Walsh PLT 273 103/ul Normal 150-450 [facility] Comment on above: Performed By: #### C MP, BNP #### [facility] [address] [address] [address] Raymond Walsh RBC 5.50 106/ul Normal 4.70-6.10 [facility] Comment on above: Performed By: #### C MP, BNP #### [facility] [address] [address] [address] Raymond Walsh WBC 14.1 103/ul Critically high 4.0-11.0 [facility] Comment on above: Performed By: #### C MP, BNP #### [facility] [address] [address] [address] Raymond Walsh BASO # 0.0 103/ul Normal 0.0-0.1 [facility] Comment on above: Performed By: #### C MP, BNP #### [facility] [address] [place] [address] Dr. Raymond Walsh Basophils/100 WBC (Bld) 0.2 % Normal 0.2-2.0 [facility] Comment on above: Performed By: #### C MP, BNP #### [facility] [address] [place] [address] Dr. Raymond Walsh EO # 0.0 103/ul Normal 0.0-0.7 [facility] Comment on above: Performed By: #### C MP, BNP #### [facility] [address] [place] [address] Dr. Raymond Walsh Eosinophils/100 WBC (Bld) 0.0 % Critically low 0.9-7.0 [facility] Comment on above: Performed By: #### C MP, BNP #### [facility] [address] [place] [address] Dr. Raymond Walsh Erythrocyte distribution width (RBC) [Ratio] 15.3 % Critically high 11.0-15.0 [facility] Comment on above: Performed By: #### C MP, BNP #### [facility] [address] [place] [address] Dr. Raymond Walsh Hematocrit (Bld) [Volume fraction] 49.6 % Normal 42.0-54.0 [facility] Comment on above: Performed By: #### C MP, BNP #### [facility] [address] [address] [address] Raymond Walsh Hemoglobin (Bld) [Mass/Vol] 16.4 g/dL Normal 14.0-18.0 [facility] Comment on above: Performed By: #### C MP, BNP #### [facility] [address] [address] [address] Raymond Walsh IG # 0.23 10e3/ul Critically high 0.00-0.03 [facility] Comment on above: Performed By: #### C MP, BNP #### [facility] [address] [place] [address] Dr. Raymond Walsh IG % 1.8 % Critically high 0.0-0.5 [facility] Comment on above: Performed By: #### C MP, BNP #### [facility] [address] [place] [address] Dr. Raymond Walsh LYMPH # 1.2 103/ul Normal 1.2-3.8 [facility] Comment on above: Performed By: #### C MP, BNP #### [facility] [address] [place] [address] Dr. Raymond Walsh Lymphocytes/100 WBC (Bld) 9.0 % Critically low 20.5-60.0 [facility] Comment on above: Performed By: #### C MP, BNP #### [facility] [address] [place] [address] Dr. Raymond Walsh MANUAL DIFF REQ NO Normal [facility] Comment on above: Performed By: #### C MP, BNP #### [facility] [address] [place] [address] Dr. Raymond Walsh MCH (RBC) [Entitic mass] 30.4 pg Normal 25.9-34.0 [facility] Comment on above: Performed By: #### C MP, BNP #### [facility] [address] [place] [address] Dr. Raymond Walsh MCHC (RBC) [Mass/Vol] 33.1 g/dL Normal 29.9-35.2 [facility] Comment on above: Performed By: #### C MP, BNP #### [facility] [address] [address] [address] Raymond Walsh MCV (RBC) [Entitic vol] 91.9 fL Normal 80.0-94.0 [facility] Comment on above: Performed By: #### C MP, BNP #### [facility] [address] [place] [address] Dr. Raymond Walsh MONO # 0.3 103/ul Normal 0.3-0.8 [facility] Comment on above: Performed By: #### C MP, BNP #### [facility] [address] [place] [address] Dr. Raymond Walsh Monocytes/100 WBC (Bld) 2.5 % Normal 1.7-12.0 [facility] Comment on above: Performed By: #### C MP, BNP #### [facility] [address] [place] [address] Dr. Raymond Walsh NEUT # 11.3 103/ul Critically high 1.4-6.5 [facility] Comment on above: Performed By: #### C MP, BNP #### [facility] [address] [place] [address] Dr. Raymond Walsh Neutrophils/100 WBC (Bld) 86.5 % Critically high 43.0-75.0 [facility] Comment on above: Performed By: #### C MP, BNP #### [facility] [address] [place] [address] Dr. Raymond Walsh Platelet mean volume (Bld) [Entitic vol] 9.7 fL Normal 9.5-13.5 [facility] Comment on above: Performed By: #### C MP, BNP #### [facility] [address] [place] [address] Dr. Raymond Walsh PLT 278 103/ul Normal 150-450 [facility] Comment on above: Performed By: #### C MP, BNP #### [facility] [address] [place] [address] Dr. Raymond Walsh RBC 5.40 106/ul Normal 4.70-6.10 [facility] Comment on above: Performed By: #### C MP, BNP #### [facility] [address] [address] [address] Raymond Walsh WBC 13.0 103/ul Critically high 4.0-11.0 [facility] Comment on above: Performed By: #### C MP, BNP #### [facility] [address] [address] [address] Raymond Walsh CULTURE SPUTUMon 06-26-2022 CULTURE SPUTUM Culture Observations : NORMAL RESPIRATORY GEOVANNA. Normal [facility] Comment on above: Performed By: #### P OCGLUC #### [facility] [address] [address] [address] Raymond Walsh CULTURE URINEon 06-26-2022 CULTURE URINE Culture Observations : NO GROWTH. Normal [facility] Comment on above: Performed By: #### P OCGLUC #### [facility] [address] [address] [address] Raymond Walsh [facility] SARS-CoV-2 (COVID-19) RNA ZACHARIAH+probe Ql (Unsp spec) Not detected Normal NOT DETECTED [facility] Comment on above: Result Comment: When diagnostic [...] for this test is supported by the [employer] Operator of Health and Human Service's declaration that [...] Performed By: #### C MP, BNP #### [facility] [address] [address] [address] Raymond AGUILAR URINE PROFILEon 2 Bilirubin Ql (U) Negative Normal NEGATIVE [facility] Comment on above: Performed By: #### S PUTGS #### [facility] [address] [place] [address] Dr. Raymond Walsh Clarity (U) CLEAR Normal CLEAR [facility] Comment on above: Performed By: #### S PUTGS #### [facility] [address] [place] [address] Dr. Raymond Walsh Color (U) YELLOW Normal YELLOW [facility] Comment on above: Performed By: #### S PUTGS #### [facility] [address] [place] [address] Dr. Raymond ALVAREZ A micrscopic examination will be performed if indicated. Normal [facility] Comment on above: Performed By: #### S PUTGS #### [facility] [address] [place] [address] Dr. Raymond Walsh Glucose Ql (U) Negative Normal NEGATIVE [facility] Comment on above: Performed By: #### S PUTGS #### [facility] [address] [place] [address] Dr. Raymond Walsh Hemoglobin Ql (U) Negative Normal NEGATIVE [facility] Comment on above: Performed By: #### S PUTGS #### [facility] [address] [place] [address] Dr. Raymond Walsh Ketones Ql (U) 15 mg/dl Abnormal NEGATIVE [facility] Comment on above: Performed By: #### S PUTGS #### [facility] [address] [place] [address] Dr. Raymond Walsh LEUKOCYTES Negative Normal NEGATIVE [facility] Comment on above: Performed By: #### S PUTGS #### [facility] [address] [place] [address] Dr. Raymond Walsh Nitrite Ql (U) Negative Normal NEGATIVE [facility] Comment on above: Performed By: #### S PUTGS #### [facility] [address] [place] [address] Dr. Raymond Walsh pH (U) 8.0 [pH] Normal 5-9 [facility] Comment on above: Performed By: #### S PUTGS #### [facility] [address] [place] [address] Dr. Raymond Walsh SPEC GRAVITY 1.015 Normal 1.005-<=1.02 5 [facility] Comment on above: Performed By: #### S PUTGS #### [facility] [address] [place] [address] Dr. Raymond Walsh UA PROTEIN Negative Normal NEGATIVE/ TRACE [facility] Comment on above: Performed By: #### S PUTGS #### [facility] [address] [place] [address] Dr. Raymond Walsh UR MICRO IND NOT INDICATED Normal [facility] Comment on above: Performed By: #### S PUTGS #### [facility] [address] [place] [address] Dr. Raymond Walsh Urobilinogen Qn (U) 4 {Flower'U}/dL Abnormal 0.2 - 1.0 [facility] Comment on above: Performed By: #### S PUTGS #### [facility] [address] [place] [address] Dr. Raymond Walsh LACTATE/LACTIC ACIDon 2021 Lactate [Moles/Vol] 1.8 mmol/L Normal 0.4-1.9 [facility] Comment on above: Performed By: #### C BC #### [facility] [address] [place] [address] Dr. Raymond Walsh POINT OF CARE GLUCOSEon 06-16 Glucose [Mass/Vol] 180 mg/dL Critically high 74-106 [facility] Comment on above: Performed By: #### C MP, BNP #### [facility] [address] [place] [address] Dr. Raymond Walsh Glucose [Mass/Vol] 184 mg/dL Critically high 74-106 [facility] Comment on above: Performed By: #### P OCGLUC #### [facility] [address] [place] [address] Dr. Raymond Walsh Glucose [Mass/Vol] 132 mg/dL Critically high 74-106 [facility] Comment on above: Performed By: #### C MP, BNP #### [facility] [address] [place] [address] Dr. Raymond Walsh PROF 14(COMP METB)on 022 Albumin [Mass/Vol] 3.9 g/dL Normal 3.4-5.0 [facility] Comment on above: Performed By: #### C MP, BNP #### [facility] [address] [place] [address] Dr. Raymond Walsh Albumin/Globulin [Mass ratio] 0.9 {ratio} Normal [facility] Comment on above: Performed By: #### C MP, BNP #### [facility] [address] [place] [address] Dr. Raymond Walsh ALP [Catalytic activity/Vol] 127 U/L Critically high 46-116 [facility] Comment on above: Performed By: #### C MP, BNP #### [facility] [address] [place] [address] Dr. Raymond Walsh ALT [Catalytic activity/Vol] 66 U/L Critically high 16-63 [facility] Comment on above: Performed By: #### C MP, BNP #### [facility] [address] [place] [address] Dr. Raymond Walsh Anion gap [Moles/Vol] 13.5 mmol/L Normal [facility] Comment on above: Performed By: #### C MP, BNP #### [facility] [address] [place] [address] Dr. Raymond Walsh AST [Catalytic activity/Vol] 33 U/L Normal 15-37 [facility] Comment on above: Performed By: #### C MP, BNP #### [facility] [address] [place] [address] Dr. Raymond Walsh Bilirubin [Mass/Vol] 0.6 mg/dL Normal 0.2-1.0 [facility] Comment on above: Performed By: #### C MP, BNP #### [facility] [address] [place] [address] Dr. Raymond Walsh Calcium [Mass/Vol] 10.5 mg/dL Critically high 8.5-10.1 [facility] Comment on above: Performed By: #### C MP, BNP #### [facility] [address] [place] [address] Dr. Raymond Walsh Chloride [Moles/Vol] 91 mmol/L Critically low 98-107 [facility] Comment on above: Performed By: #### C MP, BNP #### [facility] [address] [place] [address] Dr. Raymond Walsh CO2 [Moles/Vol] 34.8 mmol/L Critically high 21.0-32.0 [facility] Comment on above: Performed By: #### C MP, BNP #### [facility] [address] [place] [address] Dr. Raymond Walsh Creatinine [Mass/Vol] 1.17 mg/dL Normal 0.70-1.30 [facility] Comment on above: Performed By: #### C MP, BNP #### [facility] [address] [place] [address] Dr. Raymond Walsh EGFR-AF AZERBAIJANI >60 Normal >=60 [facility] Comment on above: Performed By: #### C MP, BNP #### [facility] [address] [place] [address] Dr. Raymond Walsh EGFR-NON AF AZERBAIJANI >60 Normal >=60 [facility] Comment on above: Performed By: #### C MP, BNP #### [facility] [address] [place] [address] Dr. Raymond Walsh Globulin (S) [Mass/Vol] 4.3 g/dL Normal [facility] Comment on above: Performed By: #### C MP, BNP #### [facility] [address] [place] [address] Dr. Raymond Walsh Glucose [Mass/Vol] 88 mg/dL Normal 74-106 [facility] Comment on above: Performed By: #### C MP, BNP #### [facility] [address] [place] [address] Dr. Raymond Walsh Potassium [Moles/Vol] 5.3 mmol/L Critically high 3.5-5.1 [facility] Comment on above: Performed By: #### C MP, BNP #### [facility] [address] [place] [address] Dr. Raymond Walsh Protein [Mass/Vol] 8.2 g/dL Normal 6.4-8.2 [facility] Comment on above: Performed By: #### C MP, BNP #### [facility] [address] [place] [address] Dr. Raymond Walsh Sodium [Moles/Vol] 134 mmol/L Critically low 136-145 [facility] Comment on above: Performed By: #### C MP, BNP #### [facility] [address] [place] [address] Dr. Raymond Walsh Urea nitrogen [Mass/Vol] 60.0 mg/dL Critically high 7.0-18.0 [facility] Comment on above: Performed By: #### C MP, BNP #### [facility] [address] [place] [address] Dr. Raymond Walsh Urea nitrogen/Creatinine [Mass ratio] 51.3 mg/mg Normal [facility] Comment on above: Performed By: #### C MP, BNP #### [facility] [address] [place] [address] Dr. Raymond Walsh Albumin [Mass/Vol] 3.9 g/dL Normal 3.4-5.0 [facility] Comment on above: Performed By: #### C VDTBH #### [facility] [address] [place] [address] Dr. Raymond Walsh Albumin/Globulin [Mass ratio] 1.0 {ratio} Normal [facility] Comment on above: Performed By: #### C VDTBH #### [facility] [address] [place] [address] Dr. Raymond Walsh ALP [Catalytic activity/Vol] 129 U/L Critically high 46-116 [facility] Comment on above: Performed By: #### C VDTBH #### [facility] [address] [place] [address] Dr. Raymond Walsh ALT [Catalytic activity/Vol] 66 U/L Critically high 16-63 [facility] Comment on above: Performed By: #### C VDTBH #### [facility] [address] [address] [address] Raymond Walsh Anion gap [Moles/Vol] 14.7 mmol/L Normal Th e [facility] Comment on above: Performed By: #### C VDTBH #### [facility] [address] [address] [address] Raymond Walsh AST [Catalytic activity/Vol] 30 U/L Normal 15-37 [facility] Comment on above: Performed By: #### C VDTBH #### [facility] [address] [place] [address] Dr. Raymond Walsh Bilirubin [Mass/Vol] 0.7 mg/dL Normal 0.2-1.0 [facility] Comment on above: Performed By: #### C VDTBH #### [facility] [address] [place] [address] Dr. Raymond Walsh Calcium [Mass/Vol] 10.2 mg/dL Critically high 8.5-10.1 [facility] Comment on above: Performed By: #### C VDTBH #### [facility] [address] [place] [address] Dr. Raymond Walsh Chloride [Moles/Vol] 87 mmol/L Critically low 98-107 [facility] Comment on above: Performed By: #### C VDTBH #### [facility] [address] [place] [address] Dr. Ramyond Walsh CO2 [Moles/Vol] 31.3 mmol/L Normal 21.0-32.0 [facility] Comment on above: Performed By: #### C VDTBH #### [facility] [address] [place] [address] Dr. Raymond Walsh Creatinine [Mass/Vol] 1.40 mg/dL Critically high 0.70-1.30 [facility] Comment on above: Performed By: #### C VDTBH #### [facility] [address] [address] [address] Raymond Walsh EGFR-AF AZERBAIJANI >60 Normal >=60 [facility] Comment on above: Performed By: #### C VDTBH #### [facility] [address] [address] [address] Raymond Walsh EGFR-NON AF AZERBAIJANI 51 mL/min/1.73m2 Critically low >=60 [facility] Comment on above: Performed By: #### C VDTBH #### [facility] [address] [address] [address] Raymond Walsh Globulin (S) [Mass/Vol] 4.1 g/dL Normal [facility] Comment on above: Performed By: #### C VDTBH #### [facility] [address] [place] [address] Dr. Raymond Walsh Glucose [Mass/Vol] 284 mg/dL Critically high 74-106 [facility] Comment on above: Performed By: #### C VDTBH #### [facility] [address] [address] [address] Raymond Walsh Potassium [Moles/Vol] 6.0 mmol/L Critically high 3.5-5.1 [facility] Comment on above: Performed By: #### C VDTBH #### [facility] [address] [place] [address] Dr. Raymond Walsh Protein [Mass/Vol] 8.0 g/dL Normal 6.4-8.2 [facility] Comment on above: Performed By: #### C VDTBH #### [facility] [address] [place] [address] Dr. Raymond Walsh Sodium [Moles/Vol] 127 mmol/L Critically low 136-145 [facility] Comment on above: Performed By: #### C VDTBH #### [facility] [address] [place] [address] Dr. Raymond Walsh Urea nitrogen [Mass/Vol] 60.0 mg/dL Critically high 7.0-18.0 [facility] Comment on above: Performed By: #### C VDTBH #### [facility] [address] [address] [address] Raymond Walsh Urea nitrogen/Creatinine [Mass ratio] 42.9 mg/mg Normal [facility] Comment on above: Performed By: #### C VDTBH #### [facility] [address] [address] [address] Raymond Walsh SPUTUM GRAM STAINon 06-26-20 COMMENTS Normal [facility] Comment on above: Performed By: #### S PUTGS #### [facility] [address] [address] [address] Raymond Walsh DIPHTHEROIDS Normal [facility] Comment on above: Performed By: #### S PUTGS #### [facility] [address] [address] [address] Raymond Walsh EPITHELIALS <25 [facility] Comment on above: Performed By: #### S PUTGS #### [facility] [address] [address] [address] Raymond Walsh FUNGAL ELEMENTS Normal [facility] Comment on above: Performed By: #### S PUTGS #### [facility] [address] [address] [address] Raymond Walsh GRAM NEG BACILLI Normal [facility] Comment on above: Performed By: #### S PUTGS #### [facility] [address] [address] [address] Raymond Walsh GRAM NEG DIPPLOCOCCI Normal [facility] Comment on above: Performed By: #### S PUTGS #### [facility] [address] [address] [address] Raymond Walsh GRAM POS BACILLI Normal [facility] Comment on above: Performed By: #### S PUTGS #### [facility] [address] [address] [address] Raymond Walsh GRAM POSITIVE COCCI MANY Normal [facility] Comment on above: Performed By: #### S PUTGS #### [facility] [address] [address] [address] Raymond Walsh WBC (Bld) [#/Vol] 10*3/uL Normal [facility] Comment on above: Performed By: #### S PUTGS #### [facility] [address] [address] [address] Raymond Walsh XR CHEST 1 Von [...] by: GUERITA MAJOR Date: 2022-06-25 23:21 Normal [facility] Abstracton 06-22-2022 Abstract [id number] Evgeny Delgado 1955 M Date Provider Department Center 06/22/[address] [facility] Family History Problem Relation Age of Onset Other Father Family Status - Relation Status Age at Father Normal [facility] XR CHEST 2 Von 06-22-2022 XR [...] by: NAIMA VANEGAS Date: 2022-06-22 18:32 Normal [facility] PROF CHEM 8 (BAS METB)on Anion gap [Moles/Vol] 12.1 mmol/L Normal [facility] Comment on above: Performed By: #### P OCGLUC #### [facility] [address] [address] [address] Raymond Walsh Calcium [Mass/Vol] 9.9 mg/dL Normal 8.5-10.1 [facility] Comment on above: Performed By: #### P OCGLUC #### [facility] [address] [address] [address] Raymond Walsh Chloride [Moles/Vol] 90 mmol/L Critically low 98-107 [facility] Comment on above: Performed By: #### P OCGLUC #### [facility] [address] [address] [address] Raymond Walsh CO2 [Moles/Vol] 37.6 mmol/L Critically high 21.0-32.0 [facility] Comment on above: Performed By: #### P OCGLUC #### [facility] [address] [address] [address] Raymond Walsh Creatinine [Mass/Vol] 1.19 mg/dL Normal 0.70-1.30 [facility] Comment on above: Performed By: #### P OCGLUC #### [facility] [address] [address] [address] Raymond Walsh EGFR-AF AZERBAIJANI >60 Normal >=60 [facility] Comment on above: Performed By: #### P OCGLUC #### [facility] [address] [address] [address] Raymond Walsh EGFR-NON AF AZERBAIJANI >60 Normal >=60 [facility] Comment on above: Performed By: #### P OCGLUC #### [facility] [address] [address] [address] Raymond Walsh Glucose [Mass/Vol] 141 mg/dL Critically high 74-106 [facility] Comment on above: Performed By: #### P OCGLUC #### [facility] [address] [address] [address] Raymond Walsh Potassium [Moles/Vol] 4.7 mmol/L Normal 3.5-5.1 [facility] Comment on above: Performed By: #### P OCGLUC #### [facility] [address] [address] [address] Raymond Walsh Sodium [Moles/Vol] 135 mmol/L Critically low 136-145 [facility] Comment on above: Performed By: #### P OCGLUC #### [facility] [address] [address] [address] Raymond Walsh Urea nitrogen [Mass/Vol] 41.0 mg/dL Critically high 7.0-18.0 [facility] Comment on above: Performed By: #### P OCGLUC #### [facility] [address] [address] [address] Raymond Walsh Urea nitrogen/Creatinine [Mass ratio] 34.5 mg/mg Normal [facility] Comment on above: Performed By: #### P OCGLUC #### [facility] [address] [address] [address] Raymond Walsh BASIC METABOLIC PANELon 05-16 Calcium [Mass/Vol] 8.6 mg/dL Normal 8.6-10.3 [facility] Comment on above: Order Comment: No: D o not add to previous draw Performed By: #### 5 0608 #### [facility] [address] [place] [address], [place] Chloride [Moles/Vol] 89 mmol/L Low 98-107 [facility] Comment on above: Order Comment: No: D o not add to previous draw Performed By: #### 5 0608 #### [facility] [address] [place] [address], [place] CO2 [Moles/Vol] 42 mmol/L High 21-31 [facility] Comment on above: Order Comment: No: D o not add to previous draw Performed By: #### 5 0608 #### [facility] [address] [place] [address], [place] Creatinine [Mass/Vol] 0.66 mg/dL Low 0.70-1.30 [facility] Comment on above: Order Comment: No: D o not add to previous draw Performed By: #### 5 0608 #### [facility] [address] [place] [address], [place] GFR/1.73 sq M.predicted among non-blacks MDRD (S/P/Bld) [Vol rate/Area] mL/min/{1.73_m2} Normal >60 [facility] Comment on above: Order Comment: No: D o not add to previous draw Result Comment: [facility]'s estimated glomerular filtration rate (eGFR) will [...] By: #### 5 0608 #### [facility] [address] [facility] [place] [address], [facility] Glucose [Mass/Vol] 116 mg/dL High 70-100 [facility] Comment on above: Order Comment: No: D o not add to previous draw Performed By: #### 5 0608 #### [facility] [address] [facility] [place] [address], [facility] Potassium [Moles/Vol] 4.0 mmol/L Normal 3.5-5.1 [facility] Comment on above: Order Comment: No: D o not add to previous draw Performed By: #### 5 0608 #### [facility] [address] [place] [address], [place] Sodium [Moles/Vol] 136 mmol/L Normal 136-145 [facility] Comment on above: Order Comment: No: D o not add to previous draw Performed By: #### 5 0608 #### [facility] [address] [place] [address], [facility] Urea nitrogen [Mass/Vol] 33 mg/dL High 7-25 [facility] Comment on above: Order Comment: No: D o not add to previous draw Performed By: #### 5 0608 #### [facility] [address] [place] [address], [facility] CBC COMPLETE BLOOD COUNTon 0 05-26-2022 Erythrocyte distribution width (RBC) [Ratio] 14.5 % Normal 11.5-15.0 [facility] Comment on above: Order Comment: If no t done in ED No: Do not add to previous draw Performed By: #### 4 [id number], 56789 #### [facility] [address] [place] [address], [facility] Hematocrit (Bld) [Volume fraction] 47.7 % Normal 39.0-50.0 [facility] Comment on above: Order Comment: If no t done in ED No: Do not add to previous draw Performed By: #### 4 [id number], 70571 #### [facility] [address] [place] [address], [facility] Hemoglobin (Bld) [Mass/Vol] 14.3 g/dL Normal 13.0-17.0 [facility] Comment on above: Order Comment: If no t done in ED No: Do not add to previous draw Performed By: #### 4 [id number], 06555 #### [facility] [address] [place] [address], [facility] MCH (RBC) [Entitic mass] 29.5 pg Normal 27.0-33.0 [facility] Comment on above: Order Comment: If no t done in ED No: Do not add to previous draw Performed By: #### 4 4394, 79505 #### [facility] [address] [place] [address], [place] MCHC (RBC) [Mass/Vol] 30.0 g/dL Low 32.0-35.0 [facility] Comment on above: Order Comment: If no t done in ED No: Do not add to previous draw Performed By: #### 4 4396, 99076 #### [facility] [address] [place] [address], [facility] MCV (RBC) [Entitic vol] 98.6 fL High 82.0-98.0 [facility] Comment on above: Order Comment: If no t done in ED No: Do not add to previous draw Performed By: #### 4 4396, 61786 #### [facility] [address] [place] [id number], [facility] Nucleated RBC/100 WBC (Bld) [Ratio] 0 % Normal 0-0 [facility] Comment on above: Order Comment: If no t done in ED No: Do not add to previous draw Performed By: #### 4 [id number], 39967 #### [facility] [address] [facility] [place] [address], [facility] PLAT CNT 185 10*3/uL Normal 150-400 [facility] Comment on above: Order Comment: If no t done in ED No: Do not add to previous draw Performed By: #### 4 [id number], 17326 #### [facility] [address] [place] [address], [facility] RBC (Bld) [#/Vol] 4.84 10*6/uL Normal 4.20-5.70 The [facility] Comment on above: Order Comment: If no t done in ED No: Do not add to previous draw Performed By: #### 4 [id number], 21522 #### [facility] [address] [facility] [place] [address], [facility] WBC (Bld) [#/Vol] 9.31 10*3/uL Normal 4.00-10.60 The [facility] Comment on above: Order Comment: If no t done in ED No: Do not add to previous draw Performed By: #### 4 4396, 37062 #### [facility] [address] [place] [id number], [facility] POC GLUCOSE LABon 05-26-2022 Glucose [Mass/Vol] 155 mg/dL High 70-100 [facility] Comment on above: Performed By: #### 0 0071 #### [facility] [address] [place] [address], [place] Glucose [Mass/Vol] 221 mg/dL High 70-100 [facility] Comment on above: Performed By: #### 4 4396, 78099 #### [facility] [address] [place] [address], [place] Glucose [Mass/Vol] 118 mg/dL High 70-100 [facility] Comment on above: Performed By: #### 8 5499 ####[facility] [facility] [place] [address], [facility] BASIC METABOLIC PANELon 08- Calcium [Mass/Vol] 8.7 mg/dL Normal 8.6-10.3 [facility] Comment on above: Order Comment: This order is a replacement of the rejected order with accession number [id number]. Performed By: #### 0 0071 #### [facility] [address] [place] [address], [place] Chloride [Moles/Vol] 89 mmol/L Low 98-107 [facility] Comment on above: Order Comment: This order is a replacement of the rejected order with accession number [id number]. Performed By: #### 0 0071 #### [facility] [address] [place] [address], [place] CO2 [Moles/Vol] 43 mmol/L High 21-[address] [facility] Comment on above: Order Comment: This order is a replacement of the rejected order with accession number [id number]. Performed By: #### 0 0071 #### [facility] [address] [place] [address], [place] Creatinine [Mass/Vol] 0.55 mg/dL Low 0.70-1.30 [facility] Comment on above: Order Comment: This order is a replacement of the rejected order with accession number [id number]. Performed By: #### 0 0071 #### [facility] [address] [place] [address], [facility] GFR/1.73 sq M.predicted among non-blacks MDRD (S/P/Bld) [Vol rate/Area] mL/min/{1.73_m2} Normal >60 [facility] Comment on above: Order Comment: This order is a replacement of the rejected order with accession number [id number]. Result Comment: [facility]'s estimated glomerular filtration rate (eGFR) will [...] By: #### 0 0071 #### [facility] [address] [facility] [place] [address], [facility] Glucose [Mass/Vol] 117 mg/dL High 70-100 [facility] Comment on above: Order Comment: This order is a replacement of the rejected order with accession number [id number]. Performed By: #### 0 0071 #### [facility] [address] [place] [address], [facility] Potassium [Moles/Vol] 4.2 mmol/L Normal 3.5-5.1 [facility] Comment on above: Order Comment: This order is a replacement of the rejected order with accession number [id number]. Performed By: #### 0 0071 #### [facility] [address] [id number], [facility] Sodium [Moles/Vol] 137 mmol/L Normal 136-145 [facility] Comment on above: Order Comment: This order is a replacement of the rejected order with accession number [id number]. Performed By: #### 0 0071 #### [facility] [address] [place] [address], [facility] Urea nitrogen [Mass/Vol] 24 mg/dL Normal 7-25 [facility] Comment on above: Order Comment: This order is a replacement of the rejected order with accession number [id number]. Performed By: #### 0 0071 #### [facility] [address] [place] [address], [facility] CBC COMPLETE BLOOD COUNTon 0 05-25-2022 Erythrocyte distribution width (RBC) [Ratio] 14.4 % Normal 11.5-15.0 [facility] Comment on above: Order Comment: If no t done in ED No: Do not add to previous draw Performed By: #### 4 5878, 31679 #### [facility] [address] [place] [address], [facility] Hematocrit (Bld) [Volume fraction] 48.5 % Normal 39.0-50.0 [facility] Comment on above: Order Comment: If no t done in ED No: Do not add to previous draw Performed By: #### 4 6232, 94897 #### [facility] [address] [place] [address], [place] Hemoglobin (Bld) [Mass/Vol] 14.4 g/dL Normal 13.0-17.0 [facility] Comment on above: Order Comment: If no t done in ED No: Do not add to previous draw Performed By: #### 4 9945, 28618 #### [facility] [address] [place] [address], [place] MCH (RBC) [Entitic mass] 29.5 pg Normal 27.0-33.0 [facility] Comment on above: Order Comment: If no t done in ED No: Do not add to previous draw Performed By: #### 4 2251, 13741 #### [facility] [address] [place] [address], [place] MCHC (RBC) [Mass/Vol] 29.7 g/dL Low 32.0-35.0 [facility] Comment on above: Order Comment: If no t done in ED No: Do not add to previous draw Performed By: #### 4 4396, 44845 #### [facility] [address] [place] [id number], [facility] MCV (RBC) [Entitic vol] 99.4 fL High 82.0-98.0 [facility] Comment on above: Order Comment: If no t done in ED No: Do not add to previous draw Performed By: #### 4 4396, 25457 #### [facility] [address] [place] [address], [facility] Nucleated RBC/100 WBC (Bld) [Ratio] 0 % Normal 0-0 [facility] Comment on above: Order Comment: If no t done in ED No: Do not add to previous draw Performed By: #### 4 4396, 63978 #### [facility] [address] [place] [address], [facility] PLAT CNT 190 10*3/uL Normal 150-400 The [facility] Comment on above: Order Comment: If no t done in ED No: Do not add to previous draw Performed By: #### 4 4396, 86191 #### [facility] [address] [place] [address], [facility] RBC (Bld) [#/Vol] 4.88 10*6/uL Normal 4.20-5.70 The [facility] Comment on above: Order Comment: If no t done in ED No: Do not add to previous draw Performed By: #### 4 4396, 11783 #### [facility] [address] [place] [id number], [place] WBC (Bld) [#/Vol] 9.95 10*3/uL Normal 4.00-10.60 The [facility] Comment on above: Order Comment: If no t done in ED No: Do not add to previous draw Performed By: #### 4 4396, 59520 #### [facility] [address] [place] [address], [facility] Cardiovascular Lab Reporton 05-25-2022 Cardiovascular Lab Report [facility] MR #: [id number] Department of Physician: Seun Lowe M.D. Division of Service Date: 05/24/2022 Cardiology Birthdate: 1955 Adult Cardiovascular Room #: 3AB [id number] Services [facility] [address] [place], [place] [address] Cardiovascular Laboratory Report FINAL IMPRESSION: 1. Wzol-vb-alixwqis three-vessel coronary artery disease. 2. Mildly reduced [...] right common femoral artery was obtained. A 6-Micronesian 11 cm sheath was inserted without difficulty. Angiography via the inner cannula of the sheaths had been performed prior to upsizing. This was repeated over the vein. A 6-Micronesian 11 cm sheath was advanced in. A [...] Gracia M.D. Date Trans: 05/25/2022 03:41 A/mmo [id number] cc: Chirag Rags[place] [facility] [address] George Nieto M.D. [address] [place] [id number] Normal [facility] POC GLUCOSE LABon 05-25-2022 Glucose [Mass/Vol] 185 mg/dL High 70-100 [facility] Comment on above: Performed By: #### 8 5499 ####[facility] [place] [address], [place] Glucose [Mass/Vol] 184 mg/dL High 70-100 [facility] Comment on above: Performed By: #### 5 0608 #### [facility] [address] [place] [address], [place] Glucose [Mass/Vol] 171 mg/dL High 70-100 [facility] Comment on above: Performed By: #### 8 5499 ####[facility] [facility] [place] [address], [place] Glucose [Mass/Vol] 123 mg/dL High 70-100 [facility] Comment on above: Performed By: #### 0 0071 #### [facility] [address] [place] [address], [place] BASIC METABOLIC PANELon Calcium [Mass/Vol] 9.0 mg/dL Normal 8.6-10.3 [facility] Comment on above: Order Comment: No: D o not add to previous draw Performed By: #### 0 0071, 28830 #### [facility] [address] [place] [address], [place] Chloride [Moles/Vol] 90 mmol/L Low 98-107 [facility] Comment on above: Order Comment: No: D o not add to previous draw Performed By: #### 0 0071, 42131 #### [facility] [address] [place] [address], [facility] CO2 [Moles/Vol] 43 mmol/L High 21-31 [facility] Comment on above: Order Comment: No: D o not add to previous draw Performed By: #### 0 0071, 78306 #### [facility] [address] [place] [address], [facility] Creatinine [Mass/Vol] 0.51 mg/dL Low 0.70-1.30 [facility] Comment on above: Order Comment: No: D o not add to previous draw Performed By: #### 0 0071, 63327 #### [facility] [address] [place] [address], [facility] GFR/1.73 sq M.predicted among non-blacks MDRD (S/P/Bld) [Vol rate/Area] mL/min/{1.73_m2} Normal >60 [facility] Comment on above: Order Comment: No: D o not add to previous draw Result Comment: [facility]'s estimated glomerular filtration rate (eGFR) will [...] of individuals. Performed By: #### 0 0071, 30255 #### [facility] [address] [place] [address], [facility] Glucose [Mass/Vol] 104 mg/dL High 70-100 [facility] Comment on above: Order Comment: No: D o not add to previous draw Performed By: #### 0 0071, 96072 #### [facility] [address] Potassium [Moles/Vol] 4.3 mmol/L Normal 3.5-5.1 [facility] Comment on above: Order Comment: No: D o not add to previous draw Performed By: #### 0 0071, 51979 #### [facility] [address] [place] [address], [facility] Sodium [Moles/Vol] 139 mmol/L Normal 136-145 [facility] Comment on above: Order Comment: No: D o not add to previous draw Performed By: #### 0 0071, 74923 #### [facility] [address] Urea nitrogen [Mass/Vol] 28 mg/dL High 7-25 [facility] Comment on above: Order Comment: No: D o not add to previous draw Performed By: #### 0 0071, [id number] #### [facility] [address] [place] [address], [facility] CBC W/DIFFon 05-24-2022 ABS IMM GRANS 0.1 10*3/uL Normal 0.0-0.2 The [facility] Comment on above: Order Comment: No: D o not add to previous draw Performed By: #### 5 3 #### [facility] [address] [facility] [place] [address], [facility] ABS NEUTROPHILS 6.9 10*3/uL Normal 1.6-7.6 The [facility] Comment on above: Order Comment: No: D o not add to previous draw Performed By: #### 5 0103 #### [facility] [address] [facility] [place] [address], [facility] Basophils (Bld) [#/Vol] 0.0 10*3/uL Normal 0.0-0.2 [facility] Comment on above: Order Comment: No: D o not add to previous draw Performed By: #### 5 0103 #### [facility] [address] [place] [address], [facility] Basophils/100 WBC (Bld) 0.4 % Normal 0.0-1.0 [facility] Comment on above: Order Comment: No: D o not add to previous draw Performed By: #### 5 0103 #### [facility] [address] [place] [address], [facility] Eosinophils (Bld) [#/Vol] 0.2 10*3/uL Normal 0.0-0.5 [facility] Comment on above: Order Comment: No: D o not add to previous draw Performed By: #### 5 3 #### [facility] [address] [place] [address], [facility] Eosinophils/100 WBC (Bld) 1.6 % Normal 0.0-6.0 [facility] Comment on above: Order Comment: No: D o not add to previous draw Performed By: #### 5 3 #### [facility] [address] [place] [address], [facility] Erythrocyte distribution width (RBC) [Ratio] 14.8 % Normal 11.5-15.0 [facility] Comment on above: Order Comment: No: D o not add to previous draw Performed By: #### 5 3 #### [facility] [address] [place] [address], [facility] Hematocrit (Bld) [Volume fraction] 48.9 % Normal 39.0-50.0 [facility] Comment on above: Order Comment: No: D o not add to previous draw Performed By: #### 5 0103 #### [facility] [address] [place] [address], [facility] Hemoglobin (Bld) [Mass/Vol] 14.6 g/dL Normal 13.0-17.0 [facility] Comment on above: Order Comment: No: D o not add to previous draw Performed By: #### 5 3 #### [facility] [address] [place] [address], [facility] IMMATURE GRANS 0.5 % Normal 0.0-1.0 [facility] Comment on above: Order Comment: No: D o not add to previous draw Performed By: #### 5 0103 #### [facility] [address] [place] [id number], [facility] Lymphocytes (Bld) [#/Vol] 1.5 10*3/uL Normal 1.2-4.0 [facility] Comment on above: Order Comment: No: D o not add to previous draw Performed By: #### 5 0103 #### [facility] [address] [facility] [place] [address], [facility] Lymphocytes/100 WBC (Bld) 16.2 % Low 20.0-45.0 [facility] Comment on above: Order Comment: No: D o not add to previous draw Performed By: #### 5 0103 #### [facility] [address] [facility] [place] [address], [facility] MCH (RBC) [Entitic mass] 29.4 pg Normal 27.0-33.0 [facility] Comment on above: Order Comment: No: D o not add to previous draw Performed By: #### 5 0103 #### [facility] [address] [facility] [place] [id number], [facility] MCHC (RBC) [Mass/Vol] 29.9 g/dL Low 32.0-35.0 [facility] Comment on above: Order Comment: No: D o not add to previous draw Performed By: #### 5 0103 #### [facility] [address] [place] [address], [facility] MCV (RBC) [Entitic vol] 98.4 fL High 82.0-98.0 [facility] Comment on above: Order Comment: No: D o not add to previous draw Performed By: #### 5 0103 #### [facility] [address] [place] [address], [facility] Monocytes (Bld) [#/Vol] 0.7 10*3/uL Normal 0.1-1.0 [facility] Comment on above: Order Comment: No: D o not add to previous draw Performed By: #### 5 0103 #### [facility] [address] [place] [address], [facility] MONOS 7.6 % Normal 5.0-12.0 [facility] Comment on above: Order Comment: No: D o not add to previous draw Performed By: #### 5 0103 #### [facility] [address] [place] [id number], [facility] Neutrophils/100 WBC (Bld) 73.7 % High 40.0-72.0 [facility] Comment on above: Order Comment: No: D o not add to previous draw Performed By: #### 5 0103 #### [facility] [address] [place] [id number], [facility] Nucleated RBC/100 WBC (Bld) [Ratio] 0 % Normal 0-0 [facility] Comment on above: Order Comment: No: D o not add to previous draw Performed By: #### 5 0103 #### [facility] [address] [place] [address], [place] PLAT CNT 184 10*3/uL Normal 150-400 The [facility] [place] Comment on above: Order Comment: No: D o not add to previous draw Performed By: #### 5 0103 #### [facility] [address] [place] [address], [place] RBC (Bld) [#/Vol] 4.97 10*6/uL Normal 4.20-5.70 The [facility] Comment on above: Order Comment: No: D o not add to previous draw Performed By: #### 5 0103 #### [facility] [address] [place] [address], [facility] WBC (Bld) [#/Vol] 9.37 10*3/uL Normal 4.00-10.60 [facility] Comment on above: Order Comment: No: D o not add to previous draw Performed By: #### 5 0103 #### [facility] [address] [place] [address], [facility] MAGNESIUM BLOODon 05-24-2022 Magnesium [Mass/Vol] 1.8 mg/dL Low 1.9-2.7 [facility] Comment on above: Performed By: #### 0 0071, [id number] #### [facility] [address] [place] [address], [facility] POC GLUCOSE LABon 05-24-2022 Glucose [Mass/Vol] 156 mg/dL High 70-100 [facility] Comment on above: Performed By: #### 0 0071 #### [facility] [address] [facility] [place] [address], [facility] Glucose [Mass/Vol] 158 mg/dL High 70-100 [facility] Comment on above: Performed By: #### 0 0071 #### [facility] [address] [place] [address], [facility] Glucose [Mass/Vol] 92 mg/dL Normal 70-100 [facility] Comment on above: Performed By: #### 0 0071 #### [facility] [address] [place] [address], [facility] Glucose [Mass/Vol] 107 mg/dL High 70-100 [facility] Comment on above: Performed By: #### 0 0071 #### [facility] [address] [place] [address], [facility] BASIC METABOLIC PANELon Calcium [Mass/Vol] 9.8 mg/dL Normal 8.6-10.3 [facility] Comment on above: Order Comment: No: D o not add to previous draw Performed By: #### 0 0071, 90751 #### [facility] [address] [place] [address], [facility] Chloride [Moles/Vol] 89 mmol/L Low 98-107 [facility] Comment on above: Order Comment: No: D o not add to previous draw Performed By: #### 0 0071, 62936 #### [facility] [address] [place] [address], [facility] CO2 [Moles/Vol] 42 mmol/L High 21-[address] [facility] Comment on above: Order Comment: No: D o not add to previous draw Performed By: #### 0 0071, 69545 #### [facility] [address] [place] [address], [facility] Creatinine [Mass/Vol] 0.55 mg/dL Low 0.70-1.30 [facility] Comment on above: Order Comment: No: D o not add to previous draw Performed By: #### 0 0071, 19238 #### [facility] [address] [place] [address], [facility] GFR/1.73 sq M.predicted among non-blacks MDRD (S/P/Bld) [Vol rate/Area] mL/min/{1.73_m2} Normal >60 [facility] Comment on above: Order Comment: No: D o not add to previous draw Result Comment: [facility]'s estimated glomerular filtration rate (eGFR) will [...] of individuals. Performed By: #### 0 0071, 18300 #### [facility] [address] [place] [address], [facility] Glucose [Mass/Vol] 132 mg/dL High 70-100 [facility] Comment on above: Order Comment: No: D o not add to previous draw Performed By: #### 0 0071, 88124 #### [facility] [address] [place] [address], [facility] Potassium [Moles/Vol] 4.4 mmol/L Normal 3.5-5.1 [facility] Comment on above: Order Comment: No: D o not add to previous draw Performed By: #### 0 0071, 48674 #### [facility] [address] [place] [address], [facility] Sodium [Moles/Vol] 139 mmol/L Normal 136-145 [facility] Comment on above: Order Comment: No: D o not add to previous draw Performed By: #### 0 0071, 47705 #### [facility] [address] [place] [address], [facility] Urea nitrogen [Mass/Vol] 24 mg/dL Normal 7-25 [facility] Comment on above: Order Comment: No: D o not add to previous draw Performed By: #### 0 0071, 00081 #### [facility] [address] [facility] [place] [address], [facility] CBC W/DIFFon 05-23-2022 ABS IMM GRANS 0.1 10*3/uL Normal 0.0-0.2 The [facility] Comment on above: Order Comment: No: D o not add to previous draw Performed By: #### 5 0608 #### [facility] [address] [place] [address], [facility] ABS NEUTROPHILS 7.8 10*3/uL High 1.6-7.6 [facility] Comment on above: Order Comment: No: D o not add to previous draw Performed By: #### 5 0608 #### [facility] [address] [place] [address], [facility] Basophils (Bld) [#/Vol] 0.1 10*3/uL Normal 0.0-0.2 [facility] Comment on above: Order Comment: No: D o not add to previous draw Performed By: #### 5 0608 #### [facility] [address] [place] [address], [facility] Basophils/100 WBC (Bld) 0.5 % Normal 0.0-1.0 [facility] Comment on above: Order Comment: No: D o not add to previous draw Performed By: #### 5 0608 #### [facility] [address] [place] [address], [facility] Eosinophils (Bld) [#/Vol] 0.2 10*3/uL Normal 0.0-0.5 [facility] Comment on above: Order Comment: No: D o not add to previous draw Performed By: #### 5 0608 #### [facility] [address] [place] [address], [facility] Eosinophils/100 WBC (Bld) 1.5 % Normal 0.0-6.0 [facility] Comment on above: Order Comment: No: D o not add to previous draw Performed By: #### 5 0608 #### [facility] [address] [facility] [place] [address], [facility] Erythrocyte distribution width (RBC) [Ratio] 14.7 % Normal 11.5-15.0 [facility] Comment on above: Order Comment: No: D o not add to previous draw Performed By: #### 5 0608 #### [facility] [address] [place] [address], [facility] Hematocrit (Bld) [Volume fraction] 54.3 % High 39.0-50.0 [facility] Comment on above: Order Comment: No: D o not add to previous draw Performed By: #### 5 0608 #### [facility] [address] [place] [address], [facility] Hemoglobin (Bld) [Mass/Vol] 15.9 g/dL Normal 13.0-17.0 [facility] Comment on above: Order Comment: No: D o not add to previous draw Performed By: #### 5 0608 #### [facility] [address] [place] [id number], [facility] IMMATURE GRANS 0.6 % Normal 0.0-1.0 The [facility] Comment on above: Order Comment: No: D o not add to previous draw Performed By: #### 5 0608 #### [facility] [address] [facility] [place] [address], [facility] Lymphocytes (Bld) [#/Vol] 2.1 10*3/uL Normal 1.2-4.0 [facility] Comment on above: Order Comment: No: D o not add to previous draw Performed By: #### 5 0608 #### [facility] [address] [facility] [place] [address], [facility] Lymphocytes/100 WBC (Bld) 18.7 % Low 20.0-45.0 [facility] Comment on above: Order Comment: No: D o not add to previous draw Performed By: #### 5 0608 #### [facility] [address] [facility] [place] [address], [facility] MCH (RBC) [Entitic mass] 29.2 pg Normal 27.0-33.0 [facility] Comment on above: Order Comment: No: D o not add to previous draw Performed By: #### 5 0608 #### [facility] [address] [place] [address], [facility] MCHC (RBC) [Mass/Vol] 29.3 g/dL Low 32.0-35.0 [facility] Comment on above: Order Comment: No: D o not add to previous draw Performed By: #### 5 0608 #### [facility] [address] [place] [id number], [facility] MCV (RBC) [Entitic vol] 99.6 fL High 82.0-98.0 [facility] Comment on above: Order Comment: No: D o not add to previous draw Performed By: #### 5 0608 #### [facility] [address] [place] [address], [facility] Monocytes (Bld) [#/Vol] 0.9 10*3/uL Normal 0.1-1.0 [facility] Comment on above: Order Comment: No: D o not add to previous draw Performed By: #### 5 0608 #### [facility] [address] [place] [id number], [facility] MONOS 7.7 % Normal 5.0-12.0 [facility] Comment on above: Order Comment: No: D o not add to previous draw Performed By: #### 5 0608 #### [facility] [address] [place] [id number], [facility] Neutrophils/100 WBC (Bld) 71.0 % Normal 40.0-72.0 [facility] Comment on above: Order Comment: No: D o not add to previous draw Performed By: #### 5 0608 #### [facility] [address] [place] [id number], [facility] Nucleated RBC/100 WBC (Bld) [Ratio] 0 % Normal 0-0 [facility] Comment on above: Order Comment: No: D o not add to previous draw Performed By: #### 5 0608 #### [facility] [address] [place] [id number], [place] PLAT CNT 209 10*3/uL Normal 150-400 The [facility] [place] Comment on above: Order Comment: No: D o not add to previous draw Performed By: #### 5 0608 #### [facility] [address] [place] [address], [place] RBC (Bld) [#/Vol] 5.45 10*6/uL Normal 4.20-5.70 [facility] Comment on above: Order Comment: No: D o not add to previous draw Performed By: #### 5 0608 #### [facility] [address] [place] [address], [place] WBC (Bld) [#/Vol] 10.99 10*3/uL High 4.00-10.60 [facility] Comment on above: Order Comment: No: D o not add to previous draw Performed By: #### 5 0608 #### [facility] [address] [place] [address], [place] MAGNESIUM BLOODon 05-23-2022 Magnesium [Mass/Vol] 1.4 mg/dL Low 1.9-2.7 [facility] Comment on above: Order Comment: No: D o not add to previous draw Performed By: #### 0 0071, 23367 #### [facility] [address] [place] [address], [place] POC GLUCOSE LABon 05-23-2022 Glucose [Mass/Vol] 180 mg/dL High 70-100 [facility] Comment on above: Performed By: #### 8 5499 ####[facility] [place] [address], [place] Glucose [Mass/Vol] 125 mg/dL High 70-100 [facility] Comment on above: Performed By: #### 0 0071 #### [facility] [address] [place] [address], [place] Glucose [Mass/Vol] 142 mg/dL High 70-100 [facility] Comment on above: Performed By: #### 8 5499 ####[facility] [place] [address], [place] Glucose [Mass/Vol] 123 mg/dL High 70-100 [facility] Comment on above: Performed By: #### 8 5499 ####[facility] [place] [address], [facility] BASIC METABOLIC PANELon 08-0 Calcium [Mass/Vol] 9.1 mg/dL Normal 8.6-10.3 [facility] Comment on above: Order Comment: No: D o not add to previous draw Performed By: #### 5 0608 #### [facility] [address] [place] [address], [facility] Chloride [Moles/Vol] 94 mmol/L Low 98-107 [facility] Comment on above: Order Comment: No: D o not add to previous draw Performed By: #### 5 0608 #### [facility] [address] [place] [address], [facility] CO2 [Moles/Vol] 37 mmol/L High 21-[address] [facility] Comment on above: Order Comment: No: D o not add to previous draw Performed By: #### 5 0608 #### [facility] [address] [place] [address], [facility] Creatinine [Mass/Vol] 0.52 mg/dL Low 0.70-1.30 [facility] Comment on above: Order Comment: No: D o not add to previous draw Performed By: #### 5 0608 #### [facility] [address] [facility] [place] [address], [facility] GFR/1.73 sq M.predicted among non-blacks MDRD (S/P/Bld) [Vol rate/Area] mL/min/{1.73_m2} Normal >60 [facility] Comment on above: Order Comment: No: D o not add to previous draw Result Comment: [facility]'s estimated glomerular filtration rate (eGFR) will [...] By: #### 5 0608 #### [facility] [address] [place] [address], [facility] Glucose [Mass/Vol] 132 mg/dL High 70-100 [facility] Comment on above: Order Comment: No: D o not add to previous draw Performed By: #### 5 0608 #### [facility] [address] [place] [address], [facility] Potassium [Moles/Vol] 4.8 mmol/L Normal 3.5-5.1 [facility] Comment on above: Order Comment: No: D o not add to previous draw Performed By: #### 5 0608 #### [facility] [address] [place] [address], [facility] Sodium [Moles/Vol] 137 mmol/L Normal 136-145 [facility] Comment on above: Order Comment: No: D o not add to previous draw Performed By: #### 5 0608 #### [facility] [address] [place] [address], [facility] Urea nitrogen [Mass/Vol] 19 mg/dL Normal 7-25 [facility] Comment on above: Order Comment: No: D o not add to previous draw Performed By: #### 5 0608 #### [facility] [address] [place] [address], [facility] CBC COMPLETE BLOOD COUNTon 0 05-22-2022 Erythrocyte distribution width (RBC) [Ratio] 14.8 % Normal 11.5-15.0 [facility] Comment on above: Order Comment: No: D o not add to previous draw Performed By: #### 5 0608 #### [facility] [address] Hematocrit (Bld) [Volume fraction] 48.5 % Normal 39.0-50.0 [facility] Comment on above: Order Comment: No: D o not add to previous draw Performed By: #### 5 0608 #### [facility] [address] [place] [address], [facility] Hemoglobin (Bld) [Mass/Vol] 14.5 g/dL Normal 13.0-17.0 [facility] Comment on above: Order Comment: No: D o not add to previous draw Performed By: #### 5 0608 #### [facility] [address] MCH (RBC) [Entitic mass] 30.0 pg Normal 27.0-33.0 [facility] Comment on above: Order Comment: No: D o not add to previous draw Performed By: #### 5 0608 #### [facility] [address] [facility] [address] MCHC (RBC) [Mass/Vol] 29.9 g/dL Low 32.0-35.0 [facility] Comment on above: Order Comment: No: D o not add to previous draw Performed By: #### 5 0608 #### [facility] [address] [place] [address], [facility] MCV (RBC) [Entitic vol] 100.2 fL High 82.0-98.0 [facility] Comment on above: Order Comment: No: D o not add to previous draw Performed By: #### 5 0608 #### [facility] [address] [place] [address], [facility] Nucleated RBC/100 WBC (Bld) [Ratio] 0 % Normal 0-0 [facility] Comment on above: Order Comment: No: D o not add to previous draw Performed By: #### [id number] #### [facility] [address] PLAT CNT 161 10*3/uL Normal 150-400 The [facility] [place] Comment on above: Order Comment: No: D o not add to previous draw Performed By: #### 5 0608 #### [facility] [address] [place] [address], [facility] RBC (Bld) [#/Vol] 4.84 10*6/uL Normal 4.20-5.70 The [facility] Comment on above: Order Comment: No: D o not add to previous draw Performed By: #### 5 [id number] #### [facility] [address] [place] [address], [facility] WBC (Bld) [#/Vol] 7.91 10*3/uL Normal 4.00-10.60 The [facility] Comment on above: Order Comment: No: D o not add to previous draw Performed By: #### 5 [id number] #### [facility] [address] LIPID PROFILEon 05-22-2022 Cholesterol [Mass/Vol] 118 mg/dL Low 120-200 [facility] Comment on above: Order Comment: No: D o not add to previous draw Result Comment: CHOL ESTEROL REFERENCE RANGE: 20 YEARS AND OLDER CARDIOVASCULAR RISK Less than 200 mg/dl Low Risk 200 to 239 mg/dl Borderline Risk 240 mg/dl and greater High Risk Performed By: #### 5 [id number] #### [facility] [address] Cholesterol in HDL [Mass/Vol] 35 mg/dL Normal 23-92 The [facility] Comment on above: Order Comment: No: D o not add to previous draw Result Comment: Slig ht variation in normal range could be due to gender and/or age. HDL CHOLESTEROL REFERENCE RANGE: 20 years and older Cardiovascular Risk > or =60 mg/dL Desirable 40 TO 59 mg/dL Low Risk <40 mg/dL High Risk Performed By: #### 5 [id number] #### [facility] [address] [place] [address], [facility] Cholesterol in LDL [Mass/Vol] 50 mg/dL Normal 0-130 The [facility] Comment on above: Order Comment: No: D o not add to previous draw Result Comment: LDL IS A CALCULATION LDL IS ONLY VALID IF THE TRIG IS LESS THAN 400. Performed By: #### 5 [id number] #### [facility] [address] [place] [address], [facility] Cholesterol.total/Cho lesterol in HDL [Mass ratio] 3.4 {ratio} Normal .0-4.5 The [facility] Comment on above: Order Comment: No: D o not add to previous draw Performed By: #### 5 [id number] #### [facility] [address] [facility] [place] [address], [facility] NON-HDL CHOLESTEROL 83 mg/dL Normal The [facility] Comment on above: Order Comment: No: D o not add to previous draw Performed By: #### 5 [id number] #### [facility] [address] [facility] [place] [address], [facility] Triglyceride [Mass/Vol] 164 mg/dL High 40-149 The [facility] Comment on above: Order Comment: No: D o not add to previous draw Result Comment: TRIG LYCERIDE REFERENCE RANGE: 20 YEARS AND OLDER CARDIOVASCULAR RISK LESS THAN 150 mg/dl LOW RISK 150 TO 199 mg/dl BORDERLINE RISK 200 mg/dl AND GREATER HIGH RISK Performed By: #### 5 [id number] #### [facility] [address] [facility] [place] [address], [facility] VLDL CHOL 33 mg/dL Normal 0-40 The [facility] Comment on above: Order Comment: No: D o not add to previous draw Performed By: #### 5 [id number] #### [facility] [address] [place] [address], [facility] MAGNESIUM BLOODon 05-22-2022 Magnesium [Mass/Vol] 1.2 mg/dL Critically low 1.9-2.7 The [facility] Comment on above: Order Comment: No: D o not add to previous draw Performed By: #### 5 [id number] #### [facility] [address] [place] [address], [place] PHOSPHORUS BLOODon 2 Phosphate [Mass/Vol] 3.4 mg/dL Normal 2.5-5.0 The [facility] Comment on above: Order Comment: No: D o not add to previous draw Performed By: #### 5 [id number] #### [facility] [address] [place] [address], [place] POC GLUCOSE LABon 05-22-2022 Glucose [Mass/Vol] 240 mg/dL High 70-100 [facility] Comment on above: Performed By: #### 0 0071 #### [facility] [address] [place] [address], [place] Glucose [Mass/Vol] 153 mg/dL High 70-100 [facility] Comment on above: Performed By: #### [id number] ####[facility] [place] [address], [place] Glucose [Mass/Vol] 214 mg/dL High 70-100 [facility] Comment on above: Performed By: #### 0 0071 #### [facility] [address] [place] [address], [place] Glucose [Mass/Vol] 136 mg/dL High 70-100 [facility] Comment on above: Performed By: #### 8 [id number] ####[facility] [place] [address], [place] BNP (B-TYPE NATRIURETIC PEPT JAI)on 05-21-2022 Natriuretic peptide B (Bld) [Mass/Vol] 52 pg/mL Normal 0-100 The [facility] Comment on above: Order Comment: No: D o not add to previous draw Result Comment: Give n the appropriate clinical setting a BNP result of >100 pg/mL indicates congestive heart failure. Performed By: #### 5 [id number] #### [facility] [address] [place] [address], [facility] CBC AUTO DIFFon 05-21-2022 BASO # 0.0 103/ul Normal 0.0-0.1 [facility] Comment on above: Performed By: #### P OCGLUC #### [facility] [address] [address] [address] Raymond Walsh Basophils/100 WBC (Bld) 0.4 % Normal 0.2-2.0 [facility] Comment on above: Performed By: #### P OCGLUC #### [facility] [address] [address] [address] Raymond Walsh EO # 0.1 103/ul Normal 0.0-0.7 [facility] Comment on above: Performed By: #### P OCGLUC #### [facility] [address] [address] [address] Raymond Walsh Eosinophils/100 WBC (Bld) 1.5 % Normal 0.9-7.0 [facility] Comment on above: Performed By: #### P OCGLUC #### [facility] [address] [address] [address] Raymond Walsh Erythrocyte distribution width (RBC) [Ratio] 14.6 % Normal 11.0-15.0 [facility] Comment on above: Performed By: #### P OCGLUC #### [facility] [address] [address] [address] Raymond Walsh Hematocrit (Bld) [Volume fraction] 47.6 % Normal 42.0-54.0 [facility] Comment on above: Performed By: #### P OCGLUC #### [facility] [address] [address] [address] Raymond Walsh Hemoglobin (Bld) [Mass/Vol] 14.2 g/dL Normal 14.0-18.0 [facility] Comment on above: Performed By: #### P OCGLUC #### [facility] [address] [address] [address] Raymond Walsh IG # 0.05 10e3/ul Critically high 0.00-0.03 [facility] Comment on above: Performed By: #### P OCGLUC #### [facility] [address] [address] [address] Raymond Walsh IG % 0.6 % Critically high 0.0-0.5 [facility] Comment on above: Performed By: #### P OCGLUC #### [facility] [address] [address] [address] Raymond Walsh LYMPH # 1.6 103/ul Normal 1.2-3.8 [facility] Comment on above: Performed By: #### P OCGLUC #### [facility] [address] [address] [address] Raymond Walsh Lymphocytes/100 WBC (Bld) 19.9 % Critically low 20.5-60.0 [facility] Comment on above: Performed By: #### P OCGLUC #### [facility] [address] [address] [address] Raymond Walsh MANUAL DIFF REQ NO Normal [facility] Comment on above: Performed By: #### P OCGLUC #### [facility] [address] [address] [address] Raymond Walsh MCH (RBC) [Entitic mass] 29.6 pg Normal 25.9-34.0 [facility] Comment on above: Performed By: #### P OCGLUC #### [facility] [address] [address] [address] Raymond Walsh MCHC (RBC) [Mass/Vol] 29.8 g/dL Critically low 29.9-35.2 [facility] Comment on above: Performed By: #### P OCGLUC #### [facility] [address] [address] [address] Raymond Walsh MCV (RBC) [Entitic vol] 99.4 fL Critically high 80.0-94.0 [facility] Comment on above: Performed By: #### P OCGLUC #### [facility] [address] [address] [address] Raymond Walsh MONO # 0.7 103/ul Normal 0.3-0.8 [facility] Comment on above: Performed By: #### P OCGLUC #### [facility] [address] [address] [address] Raymond Walsh Monocytes/100 WBC (Bld) 8.1 % Normal 1.7-12.0 [facility] Comment on above: Performed By: #### P OCGLUC #### [facility] [address] [address] [address] Raymond Walsh NEUT # 5.6 103/ul Normal 1.4-6.5 [facility] Comment on above: Performed By: #### P OCGLUC #### [facility] [address] [place] [address] Dr. Raymond Walsh Neutrophils/100 WBC (Bld) 69.5 % Normal 43.0-75.0 [facility] Comment on above: Performed By: #### P OCGLUC #### [facility] [address] [place] [address] Dr. Raymond Walsh Platelet mean volume (Bld) [Entitic vol] 10.5 fL Normal 9.5-13.5 [facility] Comment on above: Performed By: #### P OCGLUC #### [facility] [address] [place] [address] Dr. Raymond Walsh PLT 173 103/ul Normal 150-450 The [facility] Comment on above: Performed By: #### P OCGLUC #### [facility] [address] [place] [address] Dr. Raymond Walsh RBC 4.79 106/ul Normal 4.70-6.10 The [facility] Comment on above: Performed By: #### P OCGLUC #### [facility] [address] [place] [address] Dr. Raymond Walsh WBC 8.0 103/ul Normal 4.0-11.0 The [facility] Comment on above: Performed By: #### P OCGLUC #### [facility] [address] [place] [address] Dr. Raymond Walsh FREE T4on 05-21-2022 Free T4 [Mass/Vol] 1.01 ng/dL Normal 0.71-1.85 [facility] Comment on above: Order Comment: If no t done in ED No: Do not add to previous draw Performed By: #### 4 [id number], [id number] #### [facility] [address] [place] [address], [place] HEMOGLOBIN A1Con 05-21-2022 Glucose [Moles/Vol] 194 mmol/L Normal The [facility] Comment on above: Order Comment: If no t done in EDNo: Do not add to previous draw Performed By: #### [id number], [id number] ####[facility] [place] [address], [facility] HbA1c (Bld) [Mass fraction] 8.4 % High 4.0-6.0 The [facility] Comment on above: Order Comment: If no t done in EDNo: Do not add to previous draw Performed By: #### 8 [id number], [id number] ####[facility] [place] [address], [facility] POC GLUCOSE LABon 05-21-2022 Glucose [Mass/Vol] 194 mg/dL High 70-100 [facility] Comment on above: Performed By: #### 8 [id number] ####[facility] [place] [address], [place] Glucose [Mass/Vol] 142 mg/dL High 70-100 [facility] Comment on above: Performed By: #### 0 0071 #### [facility] [address] [place] [address], [place] POC SARS COV2 ANTIGEN NEGATI VEon 05-21-2022 POC SARS COV2 ANTIGEN NEG Negative Normal NEGATIVE [facility] Comment on above: Result Comment: Nega [...] antigen from SARS-CoV-2 in direct nasopharyngeal swab (DRESS DRAPER) specimens from individuals who are suspected of [...] Accreditation. Performed By: #### 5 [id number] #### [address] [place] [address], [facility] PROF 14(COMP METB)on 022 Albumin [Mass/Vol] 3.0 g/dL Critically low 3.4-5.0 Th [facility] Comment on above: Performed By: #### C VDTBH #### [facility] [address] [place] [address] Dr. Raymond Walsh Albumin/Globulin [Mass ratio] 0.9 {ratio} Normal [facility] Comment on above: Performed By: #### C VDTBH #### [facility] [address] [place] [address] Dr. Raymond Walsh ALP [Catalytic activity/Vol] 77 U/L Normal 46-116 [facility] Comment on above: Performed By: #### C VDTBH #### [facility] [address] [place] [address] Dr. Raymond Walsh ALT [Catalytic activity/Vol] 21 U/L Normal 16-63 [facility] Comment on above: Performed By: #### C VDTBH #### [facility] [address] [place] [address] Dr. Raymond Walsh Anion gap [Moles/Vol] 7.4 mmol/L Normal [facility] Comment on above: Performed By: #### C VDTBH #### [facility] [address] [place] [address] Dr. Raymond Walsh AST [Catalytic activity/Vol] 15 U/L Normal 15-37 [facility] Comment on above: Performed By: #### C VDTBH #### [facility] [address] [place] [address] Dr. Raymond Walsh Bilirubin [Mass/Vol] 0.6 mg/dL Normal 0.2-1.0 [facility] Comment on above: Performed By: #### C VDTBH #### [facility] [address] [place] [address] Dr. Raymond Walsh Calcium [Mass/Vol] 9.1 mg/dL Normal 8.5-10.1 [facility] Comment on above: Performed By: #### C VDTBH #### [facility] [address] [place] [address] Dr. Raymond Walsh Chloride [Moles/Vol] 100 mmol/L Normal 98-107 [facility] Comment on above: Performed By: #### C VDTBH #### [facility] [address] [place] [address] Dr. Raymond Walsh CO2 [Moles/Vol] 39.5 mmol/L Critically high 21.0-32.0 [facility] Comment on above: Performed By: #### C VDTBH #### [facility] [address] [place] [address] Dr. Raymond Walsh Creatinine [Mass/Vol] 0.55 mg/dL Critically low 0.70-1.30 The [facility] Comment on above: Performed By: #### C VDTBH #### [facility] [address] [place] [address] Dr. Raymond Walsh EGFR-AF AZERBAIJANI >60 Normal >=60 [facility] Comment on above: Performed By: #### C VDTBH #### [facility] [address] [place] [address] Dr. Raymond Walsh EGFR-NON AF AZERBAIJANI >60 Normal >=60 [facility] Comment on above: Performed By: #### C VDTBH #### [facility] [address] [place] [address] Dr. Raymond Walsh Globulin (S) [Mass/Vol] 3.2 g/dL Normal [facility] Comment on above: Performed By: #### C VDTBH #### [facility] [address] [place] [address] Dr. Raymond Walsh Glucose [Mass/Vol] 110 mg/dL Critically high 74-106 [facility] Comment on above: Performed By: #### C VDTBH #### [facility] [address] [place] [address] Dr. Raymond Walsh Potassium [Moles/Vol] 4.9 mmol/L Normal 3.5-5.1 [facility] Comment on above: Performed By: #### C VDTBH #### [facility] [address] [place] [address] Dr. Raymond Walsh Protein [Mass/Vol] 6.2 g/dL Critically low 6.4-8.2 Th [facility] Comment on above: Performed By: #### C VDTBH #### [facility] [address] [place] [address] Dr. Raymond Walsh Sodium [Moles/Vol] 142 mmol/L Normal 136-145 [facility] Comment on above: Performed By: #### C VDTBH #### [facility] [address] [place] [address] Dr. Raymond Walsh Urea nitrogen [Mass/Vol] 25.0 mg/dL Critically high 7.0-18.0 [facility] Comment on above: Performed By: #### C VDTBH #### [facility] [address] [place] [address] Dr. Raymond Walsh Urea nitrogen/Creatinine [Mass ratio] 45.5 mg/mg Normal [facility] Comment on above: Performed By: #### C VDTBH #### [facility] [address] [place] [address] Dr. Raymond Walsh TSH3on 05-21-2022 TSH 3RD GENERATION 2.89 uIU/mL Normal 0.34-5.60 The [facility] Comment on above: Order Comment: If no t done in ED No: Do not add to previous draw Performed By: #### 4 [id number], [id number] #### [facility] [address] [place] [address], [facility] CBC AUTO DIFFon 05-20-2022 BASO # 0.0 103/ul Normal 0.0-0.1 [facility] Comment on above: Performed By: #### S PUTGS #### [facility] [address] [address] [address] Raymond Walsh Basophils/100 WBC (Bld) 0.2 % Normal 0.2-2.0 [facility] Comment on above: Performed By: #### S PUTGS #### [facility] [address] [address] [address] Raymond Walsh EO # 0.2 103/ul Normal 0.0-0.7 [facility] Comment on above: Performed By: #### S PUTGS #### [facility] [address] [address] [address] Raymond Walsh Eosinophils/100 WBC (Bld) 1.5 % Normal 0.9-7.0 The [facility] Comment on above: Performed By: #### S PUTGS #### [facility] [address] [address] [address] Raymond Walsh Erythrocyte distribution width (RBC) [Ratio] 14.8 % Normal 11.0-15.0 [facility] Comment on above: Performed By: #### S PUTGS #### [facility] [address] [address] [address] Raymond Walsh Hematocrit (Bld) [Volume fraction] 46.5 % Normal 42.0-54.0 [facility] Comment on above: Performed By: #### S PUTGS #### [facility] [address] [address] [address] Raymond Walsh Hemoglobin (Bld) [Mass/Vol] 13.9 g/dL Critically low 14.0-18.0 [facility] Comment on above: Performed By: #### S PUTGS #### [facility] [address] [address] [address] Raymond Walsh IG # 0.05 10e3/ul Critically high 0.00-0.03 [facility] Comment on above: Performed By: #### S PUTGS #### [facility] [address] [address] [address] Raymond Walsh IG % 0.5 % Normal 0.0-0.5 [facility] Comment on above: Performed By: #### S PUTGS #### [facility] [address] [address] [address] Raymond Walsh LYMPH # 1.6 103/ul Normal 1.2-3.8 [facility] Comment on above: Performed By: #### S PUTGS #### [facility] [address] [place] [address] Dr. Raymond Walsh Lymphocytes/100 WBC (Bld) 16.5 % Critically low 20.5-60.0 [facility] Comment on above: Performed By: #### S PUTGS #### [facility] [address] [address] [address] Raymond Walsh MANUAL DIFF REQ NO Normal [facility] Comment on above: Performed By: #### S PUTGS #### [facility] [address] [address] [address] Raymond Walsh MCH (RBC) [Entitic mass] 29.6 pg Normal 25.9-34.0 [facility] Comment on above: Performed By: #### S PUTGS #### [facility] [address] [address] [address] Raymond Walsh MCHC (RBC) [Mass/Vol] 29.9 g/dL Normal 29.9-35.2 [facility] Comment on above: Performed By: #### S PUTGS #### [facility] [address] [address] [address] Raymond Walsh MCV (RBC) [Entitic vol] 99.1 fL Critically high 80.0-94.0 [facility] Comment on above: Performed By: #### S PUTGS #### [facility] [address] [address] [address] Raymond Walsh MONO # 0.7 103/ul Normal 0.3-0.8 The [facility] Comment on above: Performed By: #### S PUTGS #### [facility] [address] [address] [address] Raymond Walsh Monocytes/100 WBC (Bld) 6.9 % Normal 1.7-12.0 [facility] Comment on above: Performed By: #### S PUTGS #### [facility] [address] [address] [address] Raymond Walsh NEUT # 7.2 103/ul Critically high 1.4-6.5 The [facility] Comment on above: Performed By: #### S PUTGS #### [facility] [address] [place] [address] Dr. Raymond Waslh Neutrophils/100 WBC (Bld) 74.4 % Normal 43.0-75.0 [facility] Comment on above: Performed By: #### S PUTGS #### [facility] [address] [place] [address] Dr. Raymond Walsh Platelet mean volume (Bld) [Entitic vol] 10.2 fL Normal 9.5-13.5 [facility] Comment on above: Performed By: #### S PUTGS #### [facility] [address] [address] [address] Raymond Walsh PLT 170 103/ul Normal 150-450 The [facility] Comment on above: Performed By: #### S PUTGS #### [facility] [address] [address] [address] Raymond Walsh RBC 4.69 106/ul Critically low 4.70-6.10 The [facility] Comment on above: Performed By: #### S PUTGS #### [facility] [address] [address] [address] Raymond Walsh WBC 9.7 103/ul Normal 4.0-11.0 The [facility] Comment on above: Performed By: #### S PUTGS #### [facility] [address] [address] [address] Raymond Walsh LAB TESTINGon 05-20-2022 RECV HEADER SEE SCANNED REPORT I N [facility] Comment on above: Performed By: #### C BC #### [facility] [address] [address] [address] Raymond Walsh REV FROM REF LAB 05/20/22 [facility] Comment on above: Performed By: #### C BC #### [facility] [address] [address] [address] Raymond Walsh SENT TO REF LAB 05/20/22 [facility] Comment on above: Performed By: #### C BC #### [facility] [address] [address] [address] Raymond Walsh No Panel InformationOrdered By: George Nieto on 05-20-2022 D-Dimer Quantitative (PE/DVT) < 200 ng/mL 0-243 [facility] Comment on above: The reference range [...] Glucose [Mass/Vol] 238 mg/dL Critically high 74-106 [facility] Comment on above: Performed By: #### P OCGLUC #### [facility] [address] [place] [address] Dr. Raymond Walsh Glucose [Mass/Vol] 125 mg/dL Critically high 74-106 [facility] Comment on above: Performed By: #### C MP, BNP #### [facility] [address] [place] [address] Dr. Raymond Walsh Glucose [Mass/Vol] 184 mg/dL Critically high 74-106 [facility] Comment on above: Performed By: #### P OCGLUC #### [facility] [address] [place] [address] Dr. Raymond Walsh Glucose [Mass/Vol] 108 mg/dL Critically high 74-106 [facility] Comment on above: Performed By: #### P OCGLUC #### [facility] [address] [place] [address] Dr. Raymond Walsh Glucose [Mass/Vol] 58 mg/dL Critically low 74-106 [facility] Comment on above: Performed By: #### S PUTGS #### [facility] [address] [place] [address] Dr. Raymond Walsh PROF 14(COMP METB)on 022 Albumin [Mass/Vol] 2.9 g/dL Critically low 3.4-5.0 Th [facility] Comment on above: Performed By: #### C MP #### [facility] [address] [place] [address] Dr. Raymond Walsh Albumin/Globulin [Mass ratio] 0.9 {ratio} Normal [facility] Comment on above: Performed By: #### C MP #### [facility] [address] [place] [address] Dr. Raymond Walsh ALP [Catalytic activity/Vol] 76 U/L Normal 46-116 [facility] Comment on above: Performed By: #### C MP #### [facility] [address] [place] [address] Dr. Raymond Walsh ALT [Catalytic activity/Vol] 17 U/L Normal 16-63 [facility] Comment on above: Performed By: #### C MP #### [facility] [address] [place] [address] Dr. Raymond Walsh Anion gap [Moles/Vol] 6.1 mmol/L Normal [facility] Comment on above: Performed By: #### C MP #### [facility] [address] [place] [address] Dr. Raymond Walsh AST [Catalytic activity/Vol] 15 U/L Normal 15-37 [facility] Comment on above: Performed By: #### C MP #### [facility] [address] [address] [address] Raymond Walsh Bilirubin [Mass/Vol] 0.6 mg/dL Normal 0.2-1.0 [facility] Comment on above: Performed By: #### C MP #### [facility] [address] [address] [address] Raymond Walsh Calcium [Mass/Vol] 9.3 mg/dL Normal 8.5-10.1 [facility] Comment on above: Performed By: #### C MP #### [facility] [address] [place] [address] Dr. Raymond Walsh Chloride [Moles/Vol] 99 mmol/L Normal 98-107 [facility] Comment on above: Performed By: #### C MP #### [facility] [address] [place] [address] Dr. Raymond Walsh CO2 [Moles/Vol] 36.4 mmol/L Critically high 21.0-32.0 [facility] Comment on above: Performed By: #### C MP #### [facility] [address] [place] [address] Dr. Raymond Walsh Creatinine [Mass/Vol] 0.61 mg/dL Critically low 0.70-1.30 [facility] Comment on above: Performed By: #### C MP #### [facility] [address] [place] [address] Dr. Raymond Walsh EGFR-AF AZERBAIJANI >60 Normal >=60 [facility] Comment on above: Performed By: #### C MP #### [facility] [address] [place] [address] Dr. Raymond Walsh EGFR-NON AF AZERBAIJANI >60 Normal >=60 [facility] Comment on above: Performed By: #### C MP #### [facility] [address] [place] [address] Dr. Raymond Walsh Globulin (S) [Mass/Vol] 3.1 g/dL Normal [facility] Comment on above: Performed By: #### C MP #### [facility] [address] [address] [address] Raymond Walsh Glucose [Mass/Vol] 62 mg/dL Critically low 74-106 [facility] Comment on above: Performed By: #### C MP #### [facility] [address] [address] [address] Raymond Walsh Potassium [Moles/Vol] 4.5 mmol/L Normal 3.5-5.1 [facility] Comment on above: Performed By: #### C MP #### [facility] [address] [address] [address] Raymond Walsh Protein [Mass/Vol] 6.0 g/dL Critically low 6.4-8.2 [facility] Comment on above: Performed By: #### C MP #### [facility] [address] [address] [address] Raymond Walsh Sodium [Moles/Vol] 137 mmol/L Normal 136-145 [facility] Comment on above: Performed By: #### C MP #### [facility] [address] [address] [address] Raymond Walsh Urea nitrogen [Mass/Vol] 34.0 mg/dL Critically high 7.0-18.0 [facility] Comment on above: Performed By: #### C MP #### [facility] [address] [address] [address] Raymond Walsh Urea nitrogen/Creatinine [Mass ratio] 55.7 mg/mg Normal [facility] Comment on above: Performed By: #### C MP #### [facility] [address] [address] [address] Raymond Walsh XR CHEST 2 Von [...] MARCO CHA Date: 2022-05-20 09:59 Normal [facility] BNPon 05-19-2022 Natriuretic peptide B (Bld) [Mass/Vol] 485.0 pg/mL Normal <=900.0 [facility] Comment on above: Performed By: #### S PUTGS #### [facility] [address] [place] [address] Dr. Raymond Walsh CBC AUTO DIFFon 05-19-2022 BASO # 0.0 103/ul Normal 0.0-0.1 [facility] Comment on above: Performed By: #### C BC #### [facility] [address] [place] [address] Dr. Raymond Walsh Basophils/100 WBC (Bld) 0.3 % Normal 0.2-2.0 [facility] Comment on above: Performed By: #### C BC #### [facility] [address] [place] [address] Dr. Raymond Walsh EO # 0.2 103/ul Normal 0.0-0.7 [facility] Comment on above: Performed By: #### C BC #### [facility] [address] [place] [address] Dr. Raymond Walsh Eosinophils/100 WBC (Bld) 1.6 % Normal 0.9-7.0 [facility] Comment on above: Performed By: #### C BC #### [facility] [address] [place] [address] Dr. Raymond Walsh Erythrocyte distribution width (RBC) [Ratio] 14.7 % Normal 11.0-15.0 [facility] Comment on above: Performed By: #### C BC #### [facility] [address] [place] [address] Dr. Raymond Walsh Hematocrit (Bld) [Volume fraction] 53.6 % Normal 42.0-54.0 [facility] Comment on above: Performed By: #### C BC #### [facility] [address] [address] [address] Raymond Walsh Hemoglobin (Bld) [Mass/Vol] 15.4 g/dL Normal 14.0-18.0 [facility] Comment on above: Performed By: #### C BC #### [facility] [address] [address] [address] Raymond Walsh IG # 0.07 10e3/ul Critically high 0.00-0.03 [facility] Comment on above: Performed By: #### C BC #### [facility] [address] [address] [address] Raymond Walsh IG % 0.6 % Critically high 0.0-0.5 [facility] Comment on above: Performed By: #### C BC #### [facility] [address] [place] [address] Dr. Raymond Walsh LYMPH # 1.5 103/ul Normal 1.2-3.8 [facility] Comment on above: Performed By: #### C BC #### [facility] [address] [place] [address] Dr. Raymond Walsh Lymphocytes/100 WBC (Bld) 13.9 % Critically low 20.5-60.0 [facility] Comment on above: Performed By: #### C BC #### [facility] [address] [place] [address] Dr. Raymond Walsh MANUAL DIFF REQ NO Normal [facility] Comment on above: Performed By: #### C BC #### [facility] [address] [address] [address] Raymond Walsh MCH (RBC) [Entitic mass] 29.4 pg Normal 25.9-34.0 [facility] Comment on above: Performed By: #### C BC #### [facility] [address] [place] [address] Dr. Raymond Walsh MCHC (RBC) [Mass/Vol] 28.7 g/dL Critically low 29.9-35.2 [facility] Comment on above: Performed By: #### C BC #### [facility] [id number] Raymond Walsh MCV (RBC) [Entitic vol] 102.3 fL Critically high 80.0-94.0 [facility] Comment on above: Performed By: #### C BC #### [facility] [address] [address] [address] Raymond Walsh MONO # 0.8 103/ul Normal 0.3-0.8 [facility] Comment on above: Performed By: #### C BC #### [facility] [address] [address] [address] Raymond Walsh Monocytes/100 WBC (Bld) 6.9 % Normal 1.7-12.0 [facility] Comment on above: Performed By: #### C BC #### [facility] [address] [place] [address] Dr. Raymond Walsh NEUT # 8.4 103/ul Critically high 1.4-6.5 [facility] Comment on above: Performed By: #### C BC #### [facility] [address] [place] [address] Dr. Raymond Walsh Neutrophils/100 WBC (Bld) 76.7 % Critically high 43.0-75.0 [facility] Comment on above: Performed By: #### C BC #### [facility] [address] [place] [address] Dr. Raymond Walsh Platelet mean volume (Bld) [Entitic vol] 10.3 fL Normal 9.5-13.5 [facility] Comment on above: Performed By: #### C BC #### [facility] [address] [place] [address] Dr. Raymond Walsh PLT 206 103/ul Normal 150-450 [facility] Comment on above: Performed By: #### C BC #### [facility] [address] [place] [address] Dr. Raymond Walsh RBC 5.24 106/ul Normal 4.70-6.10 [facility] Comment on above: Performed By: #### C BC #### [facility] [address] [place] [address] Dr. Raymond Walsh WBC 11.0 103/ul Normal 4.0-11.0 [facility] Comment on above: Performed By: #### C BC #### [facility] [address] [place] [address] Dr. Raymond Walsh POINT OF CARE GLUCOSEon 08 Glucose [Mass/Vol] 127 mg/dL Critically high 74-106 [facility] Comment on above: Performed By: #### S PUTGS #### [facility] [address] [place] [address] Dr. Raymond Walsh Glucose [Mass/Vol] 89 mg/dL Normal 74-106 [facility] Comment on above: Performed By: #### C VDTBH #### [facility] [address] [place] [address] Dr. Raymond Walsh Glucose [Mass/Vol] 171 mg/dL Critically high 74-106 [facility] Comment on above: Performed By: #### C MP, BNP #### [facility] [address] [place] [address] Dr. Raymond Walsh PROF 14(COMP METB)on 022 Albumin [Mass/Vol] 3.3 g/dL Critically low 3.4-5.0 [facility] Comment on above: Performed By: #### S PUTGS #### [facility] [address] [place] [address] Dr. Raymond Walsh Albumin/Globulin [Mass ratio] 0.9 {ratio} Normal [facility] Comment on above: Performed By: #### S PUTGS #### [facility] [address] [place] [address] Dr. Raymond Walsh ALP [Catalytic activity/Vol] 80 U/L Normal 46-116 [facility] Comment on above: Performed By: #### S PUTGS #### [facility] [address] [place] [address] Dr. Raymond Walsh ALT [Catalytic activity/Vol] 25 U/L Normal 16-63 [facility] Comment on above: Performed By: #### S PUTGS #### [facility] [address] [address] [address] Raymond Walsh Anion gap [Moles/Vol] 6.0 mmol/L Normal [facility] Comment on above: Performed By: #### S PUTGS #### [facility] [address] [address] [address] Raymond Walsh AST [Catalytic activity/Vol] 17 U/L Normal 15-37 [facility] Comment on above: Performed By: #### S PUTGS #### [facility] [address] [address] [address] Raymond Walsh Bilirubin [Mass/Vol] 0.5 mg/dL Normal 0.2-1.0 [facility] Comment on above: Performed By: #### S PUTGS #### [facility] [address] [place] [address] Dr. Raymond Walsh Calcium [Mass/Vol] 9.3 mg/dL Normal 8.5-10.1 [facility] Comment on above: Performed By: #### S PUTGS #### [facility] [address] [place] [address] Dr. Raymond Walsh Chloride [Moles/Vol] 97 mmol/L Critically low 98-107 [facility] Comment on above: Performed By: #### S PUTGS #### [facility] [address] [place] [address] Dr. Raymond Walsh CO2 [Moles/Vol] 42.0 mmol/L Critically high 21.0-32.0 [facility] Comment on above: Performed By: #### S PUTGS #### [facility] [address] [place] [address] Dr. Raymond Walsh Creatinine [Mass/Vol] 0.88 mg/dL Normal 0.70-1.30 [facility] Comment on above: Performed By: #### S PUTGS #### [facility] [address] [place] [address] Dr. Raymond Walsh EGFR-AF AZERBAIJANI >60 Normal >=60 [facility] Comment on above: Performed By: #### S PUTGS #### [facility] [address] [place] [address] Dr. Raymond Walsh EGFR-NON AF AZERBAIJANI >60 Normal >=60 [facility] Comment on above: Performed By: #### S PUTGS #### [facility] [address] [place] [address] Dr. Raymond Walsh Globulin (S) [Mass/Vol] 3.6 g/dL Normal [facility] Comment on above: Performed By: #### S PUTGS #### [facility] [address] [address] [address] Raymond Walsh Glucose [Mass/Vol] 107 mg/dL Critically high 74-106 [facility] Comment on above: Performed By: #### S PUTGS #### [facility] [address] [place] [address] Dr. Raymond Walsh Potassium [Moles/Vol] 5.0 mmol/L Normal 3.5-5.1 [facility] Comment on above: Performed By: #### S PUTGS #### [facility] [address] [place] [address] Dr. Raymond Walsh Protein [Mass/Vol] 6.9 g/dL Normal 6.4-8.2 [facility] Comment on above: Performed By: #### S PUTGS #### [facility] [address] [place] [address] Dr. Raymond Walsh Sodium [Moles/Vol] 140 mmol/L Normal 136-145 [facility] Comment on above: Performed By: #### S PUTGS #### [facility] [address] [address] [address] Raymond Walsh Urea nitrogen [Mass/Vol] 41.0 mg/dL Critically high 7.0-18.0 [facility] Comment on above: Performed By: #### S PUTGS #### [facility] [address] [place] [address] Dr. Raymond Waslh Urea nitrogen/Creatinine [Mass ratio] 46.6 mg/mg Normal [facility] Comment on above: Performed By: #### S PUTGS #### [facility] [address] [place] [address] Dr. Raymond Walsh CBC AUTO DIFFon 05-18-2022 BASO # 0.0 103/ul Normal 0.0-0.1 [facility] Comment on above: Performed By: #### C BC #### [facility] [address] [address] [address] Raymond Walsh Basophils/100 WBC (Bld) 0.4 % Normal 0.2-2.0 [facility] Comment on above: Performed By: #### C BC #### [facility] [address] [address] [address] Raymond Walsh EO # 0.2 103/ul Normal 0.0-0.7 [facility] Comment on above: Performed By: #### C BC #### [facility] [address] [place] [address] Dr. Raymond Walsh Eosinophils/100 WBC (Bld) 1.6 % Normal 0.9-7.0 [facility] Comment on above: Performed By: #### C BC #### [facility] [address] [place] [address] Dr. Raymond Walsh Erythrocyte distribution width (RBC) [Ratio] 15.3 % Critically high 11.0-15.0 [facility] Comment on above: Performed By: #### C BC #### [facility] [address] [place] [address] Dr. Raymond Walsh Hematocrit (Bld) [Volume fraction] 56.1 % Critically high 42.0-54.0 [facility] Comment on above: Performed By: #### C BC #### [facility] [address] [place] [address] Dr. Raymond Walsh Hemoglobin (Bld) [Mass/Vol] 16.4 g/dL Normal 14.0-18.0 [facility] Comment on above: Performed By: #### C BC #### [facility] [address] [place] [address] Dr. Raymond Walsh IG # 0.06 10e3/ul Critically high 0.00-0.03 [facility] Comment on above: Performed By: #### C BC #### [facility] [address] [place] [address] Dr. Raymond Walsh IG % 0.6 % Critically high 0.0-0.5 [facility] Comment on above: Performed By: #### C BC #### [facility] [address] [place] [address] Dr. Raymond Walsh LYMPH # 1.8 103/ul Normal 1.2-3.8 [facility] Comment on above: Performed By: #### C BC #### [facility] [address] [place] [address] Dr. Raymond Walsh Lymphocytes/100 WBC (Bld) 16.3 % Critically low 20.5-60.0 [facility] Comment on above: Performed By: #### C BC #### [facility] [address] [place] [address] Dr. Raymond Walsh MANUAL DIFF REQ NO Normal [facility] Comment on above: Performed By: #### C BC #### [facility] [address] [place] [address] Dr. Raymond Walsh MCH (RBC) [Entitic mass] 29.3 pg Normal 25.9-34.0 [facility] Comment on above: Performed By: #### C BC #### [facility] [address] [place] [address] Dr. Raymond Walsh MCHC (RBC) [Mass/Vol] 29.2 g/dL Critically low 29.9-35.2 [facility] Comment on above: Performed By: #### C BC #### [facility] [address] [place] [address] Dr. Raymond Walsh MCV (RBC) [Entitic vol] 100.4 fL Critically high 80.0-94.0 [facility] Comment on above: Performed By: #### C BC #### [facility] [address] [place] [address] Dr. Raymond Walsh MONO # 0.7 103/ul Normal 0.3-0.8 [facility] Comment on above: Performed By: #### C BC #### [facility] [address] [place] [address] Dr. Raymond Walsh Monocytes/100 WBC (Bld) 6.3 % Normal 1.7-12.0 [facility] Comment on above: Performed By: #### C BC #### [facility] [address] [place] [address] Dr. Raymond Walsh NEUT # 8.1 103/ul Critically high 1.4-6.5 [facility] Comment on above: Performed By: #### C BC #### [facility] [address] [place] [address] Dr. Raymond Walsh Neutrophils/100 WBC (Bld) 74.8 % Normal 43.0-75.0 [facility] Comment on above: Performed By: #### C BC #### [facility] [address] [place] [address] Dr. Raymond Walsh Platelet mean volume (Bld) [Entitic vol] 10.3 fL Normal 9.5-13.5 [facility] Comment on above: Performed By: #### C BC #### [facility] [address] [place] [address] Dr. Raymond Walsh PLT 216 103/ul Normal 150-450 [facility] Comment on above: Performed By: #### C BC #### [facility] [address] [place] [address] Dr. Raymond Walsh RBC 5.59 106/ul Normal 4.70-6.10 [facility] Comment on above: Performed By: #### C BC #### [facility] [address] [place] [address] Dr. Raymond Walsh WBC 10.8 103/ul Normal 4.0-11.0 [facility] Comment on above: Performed By: #### C BC #### [facility] [address] [place] [address] Dr. Raymond Walsh ECHOCARDIO M/2D COMPLETEon 0 05-18-2022 ECHOCARDIO M/2D COMPLETE Patient: EVGENY DELGADO Exam Date: 05/18/2022 : 1955 Gender:M Ordering : DR GEORGE NIETO . Admission #: [id number] Family : Order #: [id number] CLICK HERE TO VIEW EXAM ECHOCARDIOGRAM REPORT [...] Carreon M.D. on 05/18/2022 at 17:09 Normal [facility] FREE T3on 05-18-2022 FREE T3 2.21 pg/mlL Normal 2.18-3.98 [facility] Comment on above: Performed By: #### C [facility] #### [facility] [address] [place] [address] Dr. Raymond Walsh FREE T4on 05-18-2022 Free T4 [Mass/Vol] 1.10 ng/dL Normal 0.76-1.46 [facility] Comment on above: Performed By: #### C VDTBH #### [facility] [address] [address] [address] Raymond Walsh LIPID PROFILEon 05-18-2022 CHOL-HDL RATIO NORM SEE BELOW Normal [facility] Comment on above: Result Comment: 3.3 - 4.4 LOW RISK 4.4 - 7.1 AVERAGE RISK 7.1 - 11.0 MODERATE RISK >11.0 HIGH RISK Performed By: #### C MP, BNP #### [facility] [address] [address] [address] Raymond Walsh Cholesterol [Mass/Vol] 154 mg/dL Normal <=200 [facility] Comment on above: Performed By: #### C MP, BNP #### [facility] [address] [address] [address] Raymond Walsh Cholesterol in HDL [Mass/Vol] 48 mg/dL Normal 40-60 [facility] Comment on above: Performed By: #### C MP, BNP #### [facility] [address] [address] [address] Raymond Walsh Cholesterol in LDL [Mass/Vol] 55.6 mg/dL Normal [facility] Comment on above: Performed By: #### C MP, BNP #### [facility] [address] [address] [address] Raymond Walsh Cholesterol.total/Cho lesterol in HDL [Mass ratio] 3.2 {ratio} Normal [facility] Comment on above: Performed By: #### C MP, BNP #### [facility] [address] [address] [address] Raymond Walsh HDL NORMAL > or = 60 mg/dl - LO W CARDIOVASCULAR RISK <40 mg/dl - HIGH CARDIOVASCULAR RISK Normal [facility] Comment on above: Performed By: #### C MP, BNP #### [facility] [address] [address] [address] Raymond Walsh LDL CALC NORMAL SEE BELOW Normal [facility] Comment on above: Result Comment: <100 mg/dl OPTIMAL 100 - 129 mg/dl NEAR OR ABOVE OPTIMAL 130 - 159 mg/dl BORDERLINE HIGH 160 - 189 mg/dl HIGH >190 mg/dl VERY HIGH Performed By: #### C MP, BNP #### [facility] [address] [address] [address] Raymond Walsh Triglyceride [Mass/Vol] 252 mg/dL Critically high <=150 [facility] Comment on above: Performed By: #### C MP, BNP #### [facility] [address] [place] [address] Dr. Raymond Walsh VLDL CALC 50.4 mg/dL Normal [facility] Comment on above: Performed By: #### C MP, BNP #### [facility] [address] [address] [address] Raymond Walsh MAGNESIUMon 05-18-2022 Magnesium [Mass/Vol] 1.4 mg/dL Critically low 1.8-2.4 [facility] Comment on above: Performed By: #### C MP, BNP #### [facility] [address] [place] [address] Dr. Raymond Walsh POINT OF CARE GLUCOSEon Glucose [Mass/Vol] 152 mg/dL Critically high [address] [place] [address] Comment on above: Performed By: #### C MP, BNP #### [facility] [address] [place] [address] Dr. Raymond Walsh Glucose [Mass/Vol] 140 mg/dL Critically high [address] [place] [address] Comment on above: Performed By: #### S PUTGS #### [facility] [address] [place] [address] Dr. Raymond Walsh Glucose [Mass/Vol] 190 mg/dL Critically high -106 [facility] Comment on above: Performed By: #### C MP, BNP #### [facility] [address] [place] [address] Dr. Raymond Walsh Glucose [Mass/Vol] 146 mg/dL Critically high [address] [place] [address] Comment on above: Performed By: #### P OCGLUC #### [facility] [address] [place] [address] Dr. Raymond Walsh Glucose [Mass/Vol] 145 mg/dL Critically high [facility]106 [facility] Comment on above: Performed By: #### P OCGLUC #### [facility] [address] [place] [address] Dr. Raymond Walsh PROF 14(COMP METB)on 022 Albumin [Mass/Vol] 3.7 g/dL Normal 3.4-5.0 [facility] Comment on above: Performed By: #### C BC #### [facility] [address] [place] [address] Dr. Raymond Walsh Albumin/Globulin [Mass ratio] 1.1 {ratio} Normal [facility] Comment on above: Performed By: #### C BC #### [facility] [address] [place] [address] Dr. Raymond Walsh ALP [Catalytic activity/Vol] 90 U/L Normal 46-116 [facility] Comment on above: Performed By: #### C BC #### [facility] [address] [place] [address] Dr. Raymond Walsh ALT [Catalytic activity/Vol] 25 U/L Normal 16-63 [facility] Comment on above: Performed By: #### C BC #### [facility] [address] [place] [address] Dr. Raymond Walsh Anion gap [Moles/Vol] 10.7 mmol/L Normal [facility] Comment on above: Performed By: #### C BC #### [facility] [address] [place] [address] Dr. Raymond Walsh AST [Catalytic activity/Vol] 20 U/L Normal 15-37 [facility] Comment on above: Performed By: #### C BC #### [facility] [address] [place] [address] Dr. Raymond Walsh Bilirubin [Mass/Vol] 0.5 mg/dL Normal 0.2-1.0 [facility] Comment on above: Performed By: #### C BC #### [facility] [address] [place] [address] Dr. Raymond Walsh Calcium [Mass/Vol] 9.4 mg/dL Normal 8.5-10.1 [facility] Comment on above: Performed By: #### C BC #### [facility] [address] [address] [address] Raymond Walsh Chloride [Moles/Vol] 99 mmol/L Normal 98-107 [facility] Comment on above: Performed By: #### C BC #### [facility] [address] [address] [address] Raymond Walsh CO2 [Moles/Vol] 39.2 mmol/L Critically high 21.0-32.0 [facility] Comment on above: Performed By: #### C BC #### [facility] [address] [address] [address] Raymond Walsh Creatinine [Mass/Vol] 0.63 mg/dL Critically low 0.70-1.30 [facility] Comment on above: Performed By: #### C BC #### [facility] [address] [place] [address] Dr. Raymond Walsh EGFR-AF AZERBAIJANI >60 Normal >=60 [facility] Comment on above: Performed By: #### C BC #### [facility] [address] [place] [address] Dr. Raymond Walsh EGFR-NON AF AZERBAIJANI >60 Normal >=60 [facility] Comment on above: Performed By: #### C BC #### [facility] [address] [place] [address] Dr. Raymond Walsh Globulin (S) [Mass/Vol] 3.4 g/dL Normal [facility] Comment on above: Performed By: #### C BC #### [facility] [address] [place] [address] Dr. Raymond Walsh Glucose [Mass/Vol] 171 mg/dL Critically high 74-106 [facility] Comment on above: Performed By: #### C BC #### [facility] [address] [place] [address] Dr. Raymond Walsh Potassium [Moles/Vol] 4.9 mmol/L Normal 3.5-5.1 [facility] Comment on above: Performed By: #### C BC #### [facility] [address] [place] [address] Dr. Raymond Walsh Protein [Mass/Vol] 7.1 g/dL Normal 6.4-8.2 [facility] Comment on above: Performed By: #### C BC #### [facility] [address] [place] [address] Dr. Raymond Walsh Sodium [Moles/Vol] 144 mmol/L Normal 136-145 [facility] Comment on above: Performed By: #### C BC #### [facility] [address] [place] [address] Dr. Raymond Walsh Urea nitrogen [Mass/Vol] 25.0 mg/dL Critically high 7.0-18.0 [facility] Comment on above: Performed By: #### C BC #### [facility] [address] [place] [address] Dr. Raymond Walsh Urea nitrogen/Creatinine [Mass ratio] 39.7 mg/mg Normal [facility] Comment on above: Performed By: #### C BC #### [facility] [address] [place] [address] Dr. Raymond Walsh TSHon 05-18-2022 TSH 4.933 uIU/mL Critically high 0.358-3.740 [facility] Comment on above: Performed By: #### C VDTBH #### [facility] [address] [place] [address] Dr. Raymond Walsh BNPon 05-17-2022 Natriuretic peptide B (Bld) [Mass/Vol] 1307.0 pg/mL Critically high <=900.0 [facility] Comment on above: Performed By: #### C VDTBH #### [facility] [address] [place] [address] Dr. Raymond Walsh CBC AUTO DIFFon 05-17-2022 BASO # 0.0 103/ul Normal 0.0-0.1 [facility] Comment on above: Performed By: #### P OCGLUC #### [facility] [address] [place] [address] Dr. Raymond Walsh Basophils/100 WBC (Bld) 0.4 % Normal 0.2-2.0 [facility] Comment on above: Performed By: #### P OCGLUC #### [facility] [address] [address] [address] Raymond Walsh EO # 0.1 103/ul Normal 0.0-0.7 [facility] Comment on above: Performed By: #### P OCGLUC #### [facility] [address] [place] [address] Dr. Raymond Walsh Eosinophils/100 WBC (Bld) 1.0 % Normal 0.9-7.0 [facility] Comment on above: Performed By: #### P OCGLUC #### [facility] [address] [place] [address] Dr. Raymond Walsh Erythrocyte distribution width (RBC) [Ratio] 15.1 % Critically high 11.0-15.0 [facility] Comment on above: Performed By: #### P OCGLUC #### [facility] [address] [place] [address] Dr. Raymond Walsh Hematocrit (Bld) [Volume fraction] 52.0 % Normal 42.0-54.0 [facility] Comment on above: Performed By: #### P OCGLUC #### [facility] [address] [place] [address] Dr. Raymond Walsh Hemoglobin (Bld) [Mass/Vol] 15.4 g/dL Normal 14.0-18.0 [facility] Comment on above: Performed By: #### P OCGLUC #### [facility] [address] [place] [address] Dr. Raymond Walsh IG # 0.07 10e3/ul Critically high 0.00-0.03 [facility] Comment on above: Performed By: #### P OCGLUC #### [facility] [address] [place] [address] Dr. Raymond Walsh IG % 0.6 % Critically high 0.0-0.5 [facility] Comment on above: Performed By: #### P OCGLUC #### [facility] [address] [place] [address] Dr. Raymond Walsh LYMPH # 1.5 103/ul Normal 1.2-3.8 [facility] Comment on above: Performed By: #### P OCGLUC #### [facility] [address] [address] [address] Raymond Walsh Lymphocytes/100 WBC (Bld) 14.0 % Critically low 20.5-60.0 [facility] Comment on above: Performed By: #### P OCGLUC #### [facility] [address] [address] [address] Raymond Walsh MANUAL DIFF REQ NO Normal [facility] Comment on above: Performed By: #### P OCGLUC #### [facility] [address] [address] [address] Raymond Walsh MCH (RBC) [Entitic mass] 29.2 pg Normal 25.9-34.0 [facility] Comment on above: Performed By: #### P OCGLUC #### [facility] [address] [place] [address] Dr. Raymond Walsh MCHC (RBC) [Mass/Vol] 29.6 g/dL Critically low 29.9-35.2 [facility] Comment on above: Performed By: #### P OCGLUC #### [facility] [address] [place] [address] Dr. Raymond Walsh MCV (RBC) [Entitic vol] 98.7 fL Critically high 80.0-94.0 [facility] Comment on above: Performed By: #### P OCGLUC #### [facility] [address] [place] [address] Dr. Raymond Walsh MONO # 0.8 103/ul Normal 0.3-0.8 [facility] Comment on above: Performed By: #### P OCGLUC #### [facility] [address] [place] [address] Dr. Raymond Walsh Monocytes/100 WBC (Bld) 6.9 % Normal 1.7-12.0 [facility] Comment on above: Performed By: #### P OCGLUC #### [facility] [address] [place] [address] Dr. Raymond Walsh NEUT # 8.4 103/ul Critically high 1.4-6.5 [facility] Comment on above: Performed By: #### P OCGLUC #### [facility] [address] [place] [address] Dr. Raymond Walsh Neutrophils/100 WBC (Bld) 77.1 % Critically high 43.0-75.0 [facility] Comment on above: Performed By: #### P OCGLUC #### [facility] [address] [place] [address] Dr. Raymond Walsh Platelet mean volume (Bld) [Entitic vol] 10.4 fL Normal 9.5-13.5 [facility] Comment on above: Performed By: #### P OCGLUC #### [facility] [address] [place] [address] Dr. Raymond Walsh PLT 219 103/ul Normal 150-450 [facility] Comment on above: Performed By: #### P OCGLUC #### [facility] [address] [place] [address] Dr. Raymond Walsh RBC 5.27 106/ul Normal 4.70-6.10 [facility] Comment on above: Performed By: #### P OCGLUC #### [facility] [address] [place] [address] Dr. Raymond Walsh Covid-19 PCR ([facility])on SARS-CoV-2 (COVID-19) RNA ZACHARIAH+probe Ql (Unsp spec) Not detected Normal NOT DETECTED [facility] Comment on above: Result Comment: When diagnostic [...] for this test is supported by the [employer] Test [employer] Operator of Health and Human Service's declaration that [...] used). Performed By: #### P OCGLUC #### [facility] [address] [place] [address] Dr. Ryamond Walsh POINT OF CARE GLUCOSEon 08 Glucose [Mass/Vol] 148 mg/dL Critically high 74-106 [facility] Comment on above: Performed By: #### C MP, BNP #### [facility] [address] [address] [address] Raymond Walsh PROF CHEM 8 (BAS METB)on Anion gap [Moles/Vol] 11.0 mmol/L Normal [facility] Comment on above: Performed By: #### C VDTBH #### [facility] [address] [address] [address] Raymond Walsh Calcium [Mass/Vol] 9.5 mg/dL Normal 8.5-10.1 [facility] Comment on above: Performed By: #### C VDTBH #### [facility] [address] [address] [address] Raymond Walsh Chloride [Moles/Vol] 100 mmol/L Normal 98-107 [facility] Comment on above: Performed By: #### C VDTBH #### [facility] [address] [address] [address] Raymond Walsh CO2 [Moles/Vol] 35.5 mmol/L Critically high 21.0-32.0 [facility] Comment on above: Performed By: #### C VDTBH #### [facility] [address] [address] [address] Raymond Walsh Creatinine [Mass/Vol] 0.76 mg/dL Normal 0.70-1.30 [facility] Comment on above: Performed By: #### C VDTBH #### [facility] [address] [place] [address] Dr. Raymond Walsh EGFR-AF AZERBAIJANI >60 Normal >=60 [facility] Comment on above: Performed By: #### C VDTBH #### [facility] [address] [address] [address] Raymond Walsh EGFR-NON AF AZERBAIJANI >60 Normal >=60 [facility] Comment on above: Performed By: #### C VDTBH #### [facility] [address] [address] [address] Raymond Walsh Glucose [Mass/Vol] 187 mg/dL Critically high 74-106 [facility] Comment on above: Performed By: #### C VDTBH #### [facility] [address] [address] [address] Raymond Walsh Potassium [Moles/Vol] 4.5 mmol/L Normal 3.5-5.1 [facility] Comment on above: Performed By: #### C VDTBH #### [facility] [address] [address] [address] Raymond Walsh Sodium [Moles/Vol] 142 mmol/L Normal 136-145 [facility] Comment on above: Performed By: #### C VDTBH #### [facility] [address] [address] [address] Raymond Walsh Urea nitrogen [Mass/Vol] 26.0 mg/dL Critically high 7.0-18.0 [facility] Comment on above: Performed By: #### C VDTBH #### [facility] [address] [address] [address] Raymond Walsh Urea nitrogen/Creatinine [Mass ratio] 34.2 mg/mg Normal [facility] Comment on above: Performed By: #### C VDTBH #### [facility] [address] [address] [address] Raymond Walsh TROPONIN, HIGH SENSITIVITYon 05-17-2022 HSTROP 38.5 pg/mL Normal 4.0-76.1 [facility] Comment on above: Result Comment: CUT- OFF POINTS HAVE BEEN ESTABLISHED BASED ON THE FOURTH UNIVERSAL DEFINITIONS OF MYOCARDIAL INFARCTION. THE UPPER REFERENCE LIMIT (URL) OF TROPONIN, DEFINED THE 99TH PERCENTILE OF cTnI DISTRIBUTION IN A REFERENCE POPULATION, HAS BEEN CONFIRMED THE DECISION THRESHOLD FOR RI DIAGNOSIS. Performed By: #### C VDTB #### [facility] [address] [address] [address] Raymond Walsh XR CHEST 1 Von [...] by: DEVYN AGUILAR Date: 2022-05-17 16:46 Normal [facility] POTASSIUMon 05-10-2022 Potassium [Moles/Vol] 4.6 mmol/L Normal 3.5-5.1 [facility] Comment on above: Performed By: #### S PUTGS #### [facility] [address] [address] [address] Raymond Walsh GLYCOHEMOGLOBIN A1Con 2021 ADA RECOMMENDATION SEE BELOW Normal [facility] Comment on above: Result Comment: ADA RECOMMENDED LIMIT 4.0 - 6.0 ADA THERAPEUTIC TARGET < 7.0 ACTION SUGGESTED > 7.0 Performed By: #### C MP, BNP #### [facility] [address] [address] [address] Raymond Walsh Glucose [Mass/Vol] 180 mg/dL Normal [facility] Comment on above: Performed By: #### C MP, BNP #### [facility] [address] [address] [address] Raymond Walsh HbA1c (Bld) [Mass fraction] 7.9 % Critically high 4.5-6.2 [facility] Comment on above: Performed By: #### C MP, BNP #### [facility] [address] [address] [address] Raymond Walsh LIPID PROFILEon 04-21-2022 CHOL-HDL RATIO NORM SEE BELOW Normal [facility] Comment on above: Result Comment: 3.3 - 4.4 LOW RISK 4.4 - 7.1 AVERAGE RISK 7.1 - 11.0 MODERATE RISK >11.0 HIGH RISK Performed By: #### C MP, BNP #### [facility] [address] [address] [address] Raymond Walsh Cholesterol [Mass/Vol] 144 mg/dL Normal <=200 [facility] Comment on above: Performed By: #### C MP, BNP #### [facility] [address] [address] [address] Raymond Walsh Cholesterol in HDL [Mass/Vol] 46 mg/dL Normal 40-60 [facility] Comment on above: Performed By: #### C MP, BNP #### [facility] [address] [address] [address] Raymond Walsh Cholesterol in LDL [Mass/Vol] 69.0 mg/dL Normal [facility] Comment on above: Performed By: #### C MP, BNP #### [facility] [address] [address] [address] Raymond Walsh Cholesterol.total/Cho lesterol in HDL [Mass ratio] 3.1 {ratio} Normal [facility] Comment on above: Performed By: #### C MP, BNP #### [facility] [address] [place] [address] Dr. Raymond Walsh HDL NORMAL > or = 60 mg/dl - LO W CARDIOVASCULAR RISK <40 mg/dl - HIGH CARDIOVASCULAR RISK Normal [facility] Comment on above: Performed By: #### C MP, BNP #### [facility] [address] [address] [address] Raymond Walsh LDL CALC NORMAL SEE BELOW Normal [facility] Comment on above: Result Comment: <100 mg/dl OPTIMAL 100 - 129 mg/dl NEAR OR ABOVE OPTIMAL 130 - 159 mg/dl BORDERLINE HIGH 160 - 189 mg/dl HIGH >190 mg/dl VERY HIGH Performed By: #### C MP, BNP #### [facility] [address] [address] [address] Raymond Walsh Triglyceride [Mass/Vol] 145 mg/dL Normal <=150 [facility] Comment on above: Performed By: #### C MP, BNP #### [facility] [address] [address] [address] Raymond Walsh VLDL CALC 29.0 mg/dL Normal [facility] Comment on above: Performed By: #### C MP, BNP #### [facility] [address] [address] [address] Raymond Walsh PROF 14(COMP METB)on 022 Albumin [Mass/Vol] 3.5 g/dL Normal 3.4-5.0 [facility] Comment on above: Performed By: #### C MP, BNP #### [facility] [address] [address] [address] Raymond Walsh Albumin/Globulin [Mass ratio] 0.9 {ratio} Normal [facility] Comment on above: Performed By: #### C MP, BNP #### [facility] [address] [place] [address] Dr. Raymond Walsh ALP [Catalytic activity/Vol] 84 U/L Normal 46-116 [facility] Comment on above: Performed By: #### C MP, BNP #### [facility] [address] [address] [address] Raymond Walsh ALT [Catalytic activity/Vol] 27 U/L Normal 16-63 [facility] Comment on above: Performed By: #### C MP, BNP #### [facility] [address] [address] [address] Raymond Walsh Anion gap [Moles/Vol] 8.1 mmol/L Normal [facility] Comment on above: Performed By: #### C MP, BNP #### [facility] [address] [place] [address] Dr. Raymond Walsh AST [Catalytic activity/Vol] 31 U/L Normal 15-37 [facility] Comment on above: Performed By: #### C MP, BNP #### [facility] [address] [address] [address] Raymond Walsh Bilirubin [Mass/Vol] 0.8 mg/dL Normal 0.2-1.0 [facility] Comment on above: Performed By: #### C MP, BNP #### [facility] [address] [address] [address] Raymond Walsh Calcium [Mass/Vol] 9.6 mg/dL Normal 8.5-10.1 [facility] Comment on above: Performed By: #### C MP, BNP #### [facility] [address] [address] [address] Raymond Walsh Chloride [Moles/Vol] 99 mmol/L Normal 98-107 [facility] Comment on above: Performed By: #### C MP, BNP #### [facility] [address] [address] [address] Raymond Walsh CO2 [Moles/Vol] 35.7 mmol/L Critically high 21.0-32.0 [facility] Comment on above: Performed By: #### C MP, BNP #### [facility] [address] [place] [address] Dr. Raymond Walsh Creatinine [Mass/Vol] 0.49 mg/dL Critically low 0.70-1.30 [facility] Comment on above: Performed By: #### C MP, BNP #### [facility] [address] [place] [address] Dr. Raymond Walsh EGFR-AF AZERBAIJANI >60 Normal >=60 [facility] Comment on above: Performed By: #### C MP, BNP #### [facility] [address] [place] [address] Dr. Raymond Walsh EGFR-NON AF AZERBAIJANI >60 Normal >=60 [facility] Comment on above: Performed By: #### C MP, BNP #### [facility] [address] [place] [address] Dr. Raymond Walsh Globulin (S) [Mass/Vol] 3.9 g/dL Normal [facility] Comment on above: Performed By: #### C MP, BNP #### [facility] [address] [address] [address] Raymond Walsh Glucose [Mass/Vol] 173 mg/dL Critically high 74-106 [facility] Comment on above: Performed By: #### C MP, BNP #### [facility] [address] [address] [address] Raymond Walsh Potassium [Moles/Vol] 5.8 mmol/L Critically high 3.5-5.1 [facility] Comment on above: Performed By: #### C MP, BNP #### [facility] [address] [address] [address] Raymond Walsh Protein [Mass/Vol] 7.4 g/dL Normal 6.4-8.2 [facility] Comment on above: Performed By: #### C MP, BNP #### [facility] [address] [address] [address] Raymond Walsh Sodium [Moles/Vol] 137 mmol/L Normal 136-145 [facility] Comment on above: Performed By: #### C MP, BNP #### [facility] [address] [address] [address] Raymond Walsh Urea nitrogen [Mass/Vol] 19.0 mg/dL Critically high 7.0-18.0 [facility] Comment on above: Performed By: #### C MP, BNP #### [facility] [address] [address] [address] Raymond Walsh Urea nitrogen/Creatinine [Mass ratio] 38.8 mg/mg Normal [facility] Comment on above: Performed By: #### C MP, BNP #### [facility] [address] [address] [address] Raymond Walsh Vital Signs Date Time Vital Sign Value Performing Clinician Twila atkinson 02-28-2025 12:00-0400 Body temperature 98.29 [degF] Sony French MD Work Phone: [facility] 02-28-2025 12:00-0400 Diastolic blood pressure 69 mm[Hg] Sony French MD Work Phone: [facility] 02-28-2025 12:00-0400 Heart rate 76 /min Sony French MD Work Phone: [facility] 02-28-2025 12:00-0400 Respiratory rate 16 /min Sony French MD Work Phone: [facility] [employer] 02-28-2025 12:00-0400 SaO2% (BldA) [Mass fraction] 96 % Sony French MD Work Phone: [facility] [employer] 02-28-2025 12:00-0400 Systolic blood pressure 108 mm[Hg] [facility] 02-28-2025 05:16-0400 Body mass index (BMI) [Ratio] 30.63 kg/m2 Sony French MD [facility] 02-28-2025 05:16-0400 Body weight 94.12 kg Sony French MD [facility] 02-20-2025 05:36-0400 Body temperature 37 Sony French MD [facility] 2025 06:42-0400 Body temperature 37 Sony French MD Work Phone[facility] 02-18-2025 12:35-0400 Body height 175.3 cm Sony French MD Work [facility] [place] 02-18-2025 05:52-0400 Body temperature 37 Sony French MD Work [facility] 02-17-2025 15:10-0400 Body temperature 37 Sony French MD Work Phone: [facility] [employer] 02-16-2025 06:19-0400 Body temperature 37 Sony French MD Work Phone: [facility] [employer] 02-15-2025 06:37-0400 Body temperature 37 Sony French MD Work Phone: [facility] [employer] 02-14-2025 06:11-0400 Body temperature 37 Sony French MD Work Phone: [facility] [employer] 02-13-2025 10:16-0400 Body temperature 37 Sony French MD Work Phone: [facility] [employer] 02-12-2025 07:26-0400 Body temperature 37 Sony French MD Work Phone: [facility] [employer] 02-11-2025 12:03-0400 Body temperature 37 Sony French MD Work Phone: [facility] [employer] 02-11-2025 09:08-0400 Body temperature 37 Sony French MD Work Phone: [facility] [employer] 02-11-2025 05:22-0400 Body temperature 37 Sony French MD Work Phone: [facility] [employer] 02-10-2025 23:07-0400 Body temperature 37 Sony French MD Work Phone: [facility] [employer] 02-10-2025 21:02-0400 Body temperature 37 Sony rFench MD Work Phone: [facility] [employer] 02-10-2025 16:28-0400 Body temperature 37 Sony French MD Work Phone: [facility] [employer] 12-16-2024 15:17-0500 Body height 177.8 cm Fabian Root MD Work Phone: [facility] [employer] 12-16-2024 15:17-0500 Body mass index (BMI) [Ratio] 28.55 kg/m2 Fabian Root MD Work Phone: [facility] [employer] 12-16-2024 15:17-0500 Body weight 90.27 kg Fabian Roto MD Work Phone: [facility] [employer] 12-16-2024 15:17-0500 Diastolic blood pressure 80 mm[Hg] Fabian Root MD Work Phone: [facility] 12-16-2024 15:17-0500 Systolic blood pressure 128 mm[Hg] Fabian Root MD Work Phone: [facility] Encounters Encounter Date Encounter Type Care Provider Facility Start: 03-20-2025 ambulatory Marco Bosch Facili ty:[facility] Start: 02-20-2025 End: 02-20-2025 ambulatory Marco Bosch [facility] Start: 02-10-2025 End: 02-28-2025 Evaluation and management of inpatient Sony French MD Work Phone: [facility] Start: 12-16-2024 End: 12-18-2024 ambulatory F[facility]IAN ROOT [facility] Start: 12-16-2024 End: 12-18-2024 Subsequent hospital visit by physician Fabian Root MD Work Phone: [facility] Comment on above: Heart murmur [...] 06-20-2023 Emergency department patient visit Marco Bosch Facility:[facility] Start: 04-26-2023 End: 04-27-2023 ambulatory MARCO [facility] Start: 04-26-2023 End: 04-26-2023 ambulatory MARCO [facility] Start: 04-09-2023 End: 04-20-2023 Evaluation and management of inpatient MARCO [facility] Start: 04-05-2023 End: 04-08-2023 ambulatory JULIET ROMAN [facility] Start: 02-27-2023 End: 02-28-[address] MARCO BOSCH Facility:[facility] Start: 02-09-2023 End: 02-10-[address] MARCO BOSCH Facility:[facility] Start: 01-18-2023 End: 01-19-[address] MARCO BOSCH Facility:[facility] Start: 12-21-2022 End: 12-21-2022 ambulatory [facility] Start: 09-01-2022 ambulatory [facility] Start: 08-10-2022 Encounter for preprocedural laboratory examination [facility] Start: 08-08-2022 ambulatory [facility] Start: 08-08-2022 End: 08-08-2022 ambulatory [facility] Start: 08-05-2022 End: 08-06-[address] MARCO BOSCH Facility:[facility] Start: 08-05-2022 End: 08-06-2022 Encounter for preprocedural laboratory examination DR MARCO BOSCH Facility:[facility] Start: 07-05-2022 End: 07-05-2022 ambulatory [facility] Start: 06-26-2022 End: 06-27-[address] MARCO BOSCH Facility:[facility] Start: 06-22-2022 End: 06-23-[address] MARCO BOSCH Facility:[facility] Start: 05-30-2022 End: 05-31-[address] MARCO BOSCH Facility:[facility] Start: 05-21-2022 End: 05-26-2022 Evaluation and management of inpatient PAYAL ARMIJOUR Facility:[facility] Start: 05-20-2022 End: 05-20-2022 Departed Referred DO Marco Bosch Work Phone: [facility] [place] Start: 05-19-2022 End: 05-21-2022 Evaluation and management of inpatient DR MARCO BOSCH Facility:[facility] Start: 05-10-2022 End: 07-27-[address] MARCO BOSCH Facility:[facility] Start: 04-21-2022 End: 04-22-[address] MARCO BOSCH Facility:[facility] Start: 02-09-2022 End: 02-09-2022 ambulatory Ebonie Keyes LORENA.FORESTRY WORKER Work Phone: Telemedicine Comment on above: URI, acute (Primary Dx) Start: 02-09-2022 End: 02-09-2022 Telemedicine consultation with patient Ebonie Keyes MEDICAL ASSISTING INSTRUCTOR.FORESTRY WORKER Work Phone: [facility] Procedures Date Procedure Procedure Detail Performing Clinician Start: 02-20-2025 BLOOD GAS, ARTERIAL Mar k Den Avery MD Work Phone: Start: 2025 BLOOD GAS, ARTERIAL Chr matt Milligan MD Work Phone: Start: 2025 BASIC METABOLIC PANE L W/ REFLEX TO MG FOR LOW K Jillian Johnson MEDICAL ASSISTING INSTRUCTOR - FORESTRY WORKER Work Phone: Start: 2025 Blood count complete auto&auto difrntl wbc Jillian Johnson MEDICAL ASSISTING INSTRUCTOR - FORESTRY WORKER Work Phone: Start: 02-18-2025 BLOOD GAS, ARTERIAL [...] TO MG FOR LOW K Jillian Johnson MEDICAL ASSISTING INSTRUCTOR - FORESTRY WORKER Work Phone: Start: 02-15-2025 Blood count complete auto&auto difrntl wbc Jillian Johnson MEDICAL ASSISTING INSTRUCTOR - FORESTRY WORKER Work Phone: Start: 02-14-2025 BASIC METABOLIC PANE L W/ REFLEX TO MG FOR LOW K Jillian Crystalter MEDICAL ASSISTING INSTRUCTOR - FORESTRY WORKER Work Phone: Start: 02-14-2025 Blood count complete auto&auto difrntl wbc [facility]ian [facility] Work Phone: Start: 02-14-2025 BLOOD GAS, ARTERIAL Chr dontatopher Cooper Milligan MD Work Phone: Start: 02-14-2025 Rhythm ecg 1-3 leads w/interpretation & report Unknown Provider Result Start: 02-13-2025 End: 02-13-2025 Rhythm ecg 1-3 leads w/interpretation & report Unknown Provider Result Start: 02-13-2025 BLOOD GAS, ARTERIAL Chr matt Milligan MD Work Phone: Start: 02-13-2025 HOME O2 EVAL (DESATU RATION SCREEN) Jillian PlascenciaVikySan [facility] Work Phone: Start: 02-13-2025 BASIC METABOLIC PANE L W/ REFLEX TO MG FOR LOW K Jillian PlascenciaVikySan [facility]aquin [facility] Work Phone: Start: 02-13-2025 Blood count complete auto&auto difrntl wbc [facility]ian [facility] Work Phone: Start: 02-13-2025 PULMONARY FUNCTION T EST REPORT Ty Russell MD Work Phone: Start: 02-12-2025 PULSE OXIMETRY, OVERNIGHT Jillian [facility]enciaV[facility]UC[facility] Work Phone: Start: 02-12-2025 BLOOD GAS, ARTERIAL Chr matt Milligan MD Work Phone: Start: 02-12-2025 End: 02-12-2025 Ecg routine ecg w/least 12 lds i&r only Silvia Fletcher MEDICAL ASSISTING INSTRUCTOR - [facility] Work Phone: Start: 02-12-2025 BASIC METABOLIC PANE L W/ REFLEX TO MG FOR LOW K Jillian Alcaraz [facility] MEDICAL ASSISTING INSTRUCTOR - [facility] Work Phone: Start: 02-12-2025 Blood count complete auto&auto difrntl wbc Jillian [facility]car[facility] Work Phone: Start: 02-12-2025 Rhythm [...] TO MG FOR LOW K Jillian Alcaraz [facility] Work Phone: Start: 02-11-2025 Blood count complete auto&auto difrntl wbc Jillian Alcaraz [facility] Work Phone: Start: 02-11-2025 Rhythm [...] DTaP/Tdap/Td vaccine (2 - Td or Tdap) [facility] Start: 09-07-2030 Urine microalbumin profile DTAP,TDAP,TD (2 - Td or Tdap) [facility] Start: 09-07-2030 [facility] Start: 2026 [facility] Start: 04-08-2025 End: 04-08-2025 ambulatory [place] [employer] [facility] [place] Start: 04-08-2025 End: 04-08-2025 Patient encounter procedure 04/08/2025 2:00 PM EDT Office Visit [facility] [employer] [facility] [place] [address] [place] [id number] Fabian Root MD [facility] [address] [place] [employer] Raiza Schmitt Comment on above: 6 [place] Start: 06-16-2024 COVID-19 Vaccine () COVID-19 Vaccine () [employer] Start: 06-16-2024 [facility] Start: 04-22-2024 PROSTATE CANCER SCREENING DISCUSSION PROSTATE CANCER SCREENING DISCUSSION [facility] Start: 04-20-2024 GFR test (Diabetes, CKD 3-4, OR last GFR 15-59) GFR test (Diabetes, CKD 3-4, OR last GFR 15-59) [facility] [employer] Start: 04-06-2024 Hemoglobin A1c measurement [facility] Start: 09-11-2023 Annual Wellness Visi t (Medicare) Annual Wellness Visit (Medicare) [facility] Start: 09-11-2023 [facility] Start: 06-16-2022 Influenza vaccination INFLUENZ A (Season Ended) [facility] Start: 10-16-2021 ADVANCE DIRECTIVE DISCUSSION ADVANCE DIRECTIVE DISCUSSION [facility] Start: 02-20-2020 PNEUMOVAX AGE 65 AND OVER WITH 5YR LOOKBACK (#1) PNEUMOVAX AGE 65 AND OVER WITH 5YR LOOKBACK (#1) [facility] Start: 07-24-2017 Shingles vaccine (2 of 3) Shingles vaccine (2 of 3) [facility] [employer] Start: 07-24-2017 SHINGRIX VACCINE (2 of 3) SHINGRIX VACCINE (2 of 3) [facility] Start: 07-24-2017 [facility] Start: 02-20-2000 COLOGUARD (FIT-DNA) COLOGUARD (FIT-D NA) [facility] Start: 02-20-2000 Colonoscopy COLONOSCOPY [facility] Start: 02-20-2000 COLORECTAL CANCER SCREENING COLORECTAL CANCER SCREENING [facility] Start: 02-20-[address] COLONOGRAPHY [facility] Start: 02-20-2000 FECAL OCCULT BLOOD FECAL OCCULT BLOO D [facility] Start: 02-20-2000 Screening for malign ant neoplasm of colon [facility] Start: 02-20-2000 SIGMOIDOSCOPY SIGMOIDOSCOPY [facility] Start: 1973 ANNUAL PCP TEAM MOBILE PRACTICE LEAD SAWYER DISEASE VISIT ANNUAL PCP TEAM CHRONIC DISEASE VISIT [facility] Start: 1973 BP CONTROLLED (<130/80) BP CONTROLLE D (<130/80) [facility] Start: 1973 Glaucoma screening [facility] Start: 1973 Hepatitis B surface antibody level LDL CHOLESTEROL [facility] Start: 1973 HEPATITIS C SCREENING HEPATITIS C SC REENING [facility] Start: 1973 [facility] Start: 1973 Urine screening for protein [facility] Start: 1967 Adult depression screening assessment DEPRESSION SCREENING [facility] Start: 1967 Depression Screen Depression Screen [facility] Start: 1967 [facility] Start: 1965 3 comp foot exam completed DIABETIC FOOT EXAM [facility] Start: 1965 Diabetic foot examination [facility] Start: 1965 Hepatitis B screening URINE ALBUMIN:CREATININE RATIO [facility] Start: 1965 Hepatitis C antibody , confirmatory test DILATED RETINAL EXAM [facility] Start: 1965 Lipid panel [facility] Start: 02-20-1960 Hemoglobin A1c/Hemoglobin.total in Blood HBA1C [facility] End: 03-01-2025 Basic metabolic 2000 panel - Serum or Plasma [facility] End: 02-14-2025 Blood Gas, Arterial [facility] End: 03-01-2025 CBC W Auto Differential panel - Blood [facility] [employer] [facility] Continuous positive airway pressure ventilation treatment [facility] Nasal Cannula Oxygen [facility] Oxygen therapy [Mini mum Data Set] [facility] Positive Expiratory Pressure Therapy [facility] Vibratory Airway Clearance [facility] Immunizations Immunization Date Immunization Notes Care Provider Norma michelle 09-29-2021 COVID-19 vaccine, ag e 12+ yr (PFIZER-BIONTECH - PURPLE TOP) Ebonie Keyes APRN.FORESTRY WORKER Work Phone: [facility] Work Phone: 01-07-2021 COVID-19 vaccine, ag e 12+ yr (PFIZER-BIONTECH - PURPLE TOP) Ebonie Keyes APRN.FORESTRY WORKER Work Phone: [facility] Work Phone: 12-17-2020 COVID-19 vaccine, ag e 12+ yr (PFIZER-BIONTECH - PURPLE TOP) Ebonie Digennaro MEDICAL ASSISTING INSTRUCTOR.[facility] Work Phone: [facility] Work Phone: 09-07-2020 influenza, injectabl e, quadrivalent, contains preservative Ebonie Digennaro MEDICAL ASSISTING INSTRUCTOR.[facility] Work Phone: [facility] Work Phone: 09-07-2020 tetanus toxoid, redu manuel diphtheria toxoid, and acellular pertussis vaccine, adsorbed Ebonie Digennaro MEDICAL ASSISTING INSTRUCTOR.[facility] Work Phone: [facility] Work Phone: 08-07-2019 influenza, injectabl e, quadrivalent, preservative free Ebonie Digennaro MEDICAL ASSISTING INSTRUCTOR.[facility] Work Phone: [facility] Work Phone: 08-27-2018 influenza, injectabl e, quadrivalent, preservative free Ebonie Digennaro MEDICAL ASSISTING INSTRUCTOR.[facility] Work Phone: [facility] Work Phone: 08-21-2017 influenza, injectabl e, quadrivalent, preservative free Ebonie Digennaro MEDICAL ASSISTING INSTRUCTOR.[facility] Work Phone: [facility] Work Phone: 05-29-2017 zoster vaccine, live Ebonie D igennaro MEDICAL ASSISTING INSTRUCTOR.[facility] Work Phone: [facility] Work Phone: 08-15-2016 influenza, injectabl e, quadrivalent, preservative free Ebonie Digennaro MEDICAL ASSISTING INSTRUCTOR.[facility] Work Phone: [facility] Work Phone: 09-15-2015 influenza, seasonal, injectable, preservative free Ebonie Digennaro MEDICAL ASSISTING INSTRUCTOR.[facility] Work Phone: [facility] Work Phone: 09-15-2015 pneumococcal conjuga te vaccine, 13 valent Ebonie Digennaro MEDICAL ASSISTING INSTRUCTOR.[facility] Work Phone: [facility] Work Phone: 07-16-2014 influenza virus vacc ine, unspecified formulation Ebonie Digennaro MEDICAL ASSISTING INSTRUCTOR.[facility] Work Phone: [facility] Work Phone: 07-31-2012 influenza virus vacc ine, unspecified formulation Ebonie Digennaro MEDICAL ASSISTING INSTRUCTOR.FORESTRY WORKER Work Phone: [facility] Work Phone: 07-07-2009 influenza virus vacc ine, unspecified formulation Ebonie Digennaro MEDICAL ASSISTING INSTRUCTOR.FORESTRY WORKER Work Phone: [facility] Work Phone: 08-26-2008 influenza virus vacc ine, unspecified formulation Ebonie Digennaro MEDICAL ASSISTING INSTRUCTOR.[facility] Work Phone: [facility] Work Phone: 08-26-2008 pneumococcal polysaccharide vaccine, 23 valent Ebonie Digennaro MEDICAL ASSISTING INSTRUCTOR.[facility] Work Phone: [facility] Work Phone: 08-17-1999 pneumococcal conjuga te vaccine, 7 valent Ebonie Digennaro MEDICAL ASSISTING INSTRUCTOR.[facility] Work Phone: [facility] Work Phone: Payers Date Payer Category Payer Self-pay 2023 Unknown [id number] 2018 Unknown MMO MMO [employer]PER[employer] PLUS [id number] 2018-Present [phone] [address] [place] [address] O [id number] 1959 Medicare [id number] 1959 Unknown [id number] 1955 Unknown [id number] 2..840.1.327557.3.579.2.718 1955 Unknown [id number] .840.1.343436.3.579.2.718 1955 Unknown [id number] 2.16.840.1.891915.3.579.2.718 1955 Unknown [id number] 2.16.840.1.582416.3.579.2.71 1955 Unknown [id number] 2.16.840.1.446550.3.579.2. 1955 Unknown [id number] 2.16.840.1.393270.3.579.2.71 1955 Unknown [id number] 2.16.840.1.588905.3.579.2.71 1955 Unknown [id number] 2.16.840.1.457989.3.579.2.647 1955 Unknown [id number] 2.16.840.1.045893.3.579.2.59 1955 Unknown [id number] 2.16.840.1.460965.3.579.2.59 1955 Unknown [id number] 2.16.840.1.657987.3.579.2.59 1955 Unknown [id number] 2.16.840.1.391782.3.579.2.593 1955 Unknown [id number] 2.16.840.1.472362.3.579.2.59 1955 Unknown [id number] 2.16.840.1.392465.3.579.2.593 1955 Unknown [id number] 2.16.840.1.531210.3.579.2.59 1955 Unknown [id number] 2.16.840.1.675140.3.579.2.593 1955 Unknown [id number] 2.16.840.1.197951.3.579.2.59 1955 Unknown [id number] 2.16.840.1.897360.3.579.2.593 1955 Unknown [id number] 2.16.840.1.162539.3.579.2.175 1955 Unknown [id number] 2.16.840.1.988168.3.579.2.175 1955 Unknown [id number] 2.16.840.1.423274.3.579.2.175 1955 Unknown [id number] 2.16.840.1.512742.3.579.2.175 1955 Unknown [id number] 2.16.840.1.358841.3.579.2.173 1955 Unknown [id number] 2.16.840.1.707183.3.579.2.173 Unknown [id number] 2.16.840.1.538588.3.579.2.531 Social History Date Type Detail Facility [facility] Start: 1955 Sex Assigned At Not on file [facility] Start: 1955 Sex Assigned At Male F [facility] Start: 04-06-2023 Tobacco smoking stat [facility] Never smoked tobacco [employer] Work Phone: Start: 04-06-2023 Tobacco use and exposure Smokeless tobacco non-user [employer] Start: 09-17-2024 End: 2025 Alcoholic beverage intake Lifetime non-drinker (finding) [employer] Start: 09-17-2024 End: 02-11-2025 History of Social function [employer] Start: 09-17-2024 End: 02-11-2025 Tobacco use panel [employer] Read-Only, Retired: Physical Abuse Denies [employer] Has the electric, [employer], [employer], or water [employer] threatened to shut off services in your home in past 12Mo No [employer] How often to you hav e a drink containing alcohol? Never [facility] [employer] (I/We) worried wheth er (my/our) food would run out before (I/we) got money to buy more. Never true Jean Paul Delgadillo [employer] Start: 06-24-2022 Sex Male (finding) [facility] [employer] Functional Status Date Assessment Result Facility [facility] [employer] Clinical Notes 12-20-2021 to 02-28-2025 Drea Huff RN - 02/28/2025 6:43 PM EDSilvia Clay, PHILLY - 02/28/2025 2:43 PM [place] AUTOMOTIVE ELECTRICIAN HELPER - 02/28/2025 1:[address], [...] belonging are with patient. Physical Therapy Facility/Department: [facility] Daily Treatment Note NAME: Evgeny [...] loss Fluid Accumulation: Moderate to Severe Extremities Melt House Centrifugal Operator Strength: Not Performed Nutrition Assessment: Continued limited [...] Measures: Height: 175.3 cm (5' 9.02 ) [place] Body Weight (IBW): 160 lbs (73 kg) [...] Used for Energy Requirements: Current Energy (kcal/day): 3883-9138 (18-22kcal/kg) Weight Used for Protein Requirements: [place] Protein (g/day): 87-102 (1.2-1.4 g/kg) Method Used [...] current diet [address], [place] Contact: [phone] RESPIRATORY ASSESSMENT PROTOCOL Patient Name: Evgeny Delgado [...] Value Date/Time PHART 7.368 02/20/2025 05:32 AM [id number] 64.6 02/20/2025 05:32 AM PO2ART 88.0 02/20/2025 05:32 AM [id number] 96.2 02/20/2025 05:32 AM [id number] 36.3 02/20/2025 05:32 AM PBEA 8.4 02/20/2025 [...] ____Yes ____No ____Patient Refused Physical Therapy Facility/Department: [facility] Daily Treatment Note NAME: Evgeny [...] from the original note were not included. MEDICAL ASSISTING INSTRUCTOR - Progress Note Patient - Evgeny Delgado [...] Date 02/28/25 0000 - 02/28/25 2359 Shift [id number] 1411-6422 24 Hour Total INTAKE P.O. 300 300 [...] I did call and spoke with his Medical Technologist Clinical, Dr Church at [facility] and discussed his case on 02/17/2025. Likely [...] I/O Daily Weight Nutritional Supplements as tolerated Fagot Maker consult initiated MALNUTRITION ASSESSMENT AND PLAN The [...] Accumulation Location: Extremities (02/11/25823) Acute Illness - Melt House Centrifugal Operator Strength: Not Performed (02/11/25823) Acute Illness - [...] SATISFY MIPS PERFORMANCE] LORENA Brown CNP , LORENA-DRESS DRAPER-C 02/28/2025 9:16 AM FACE TO FACE: Patient qualified for home O2. Discussed with patient the medical necessity of home O2. Patient voiced understanding and agreement. LORENA Brown CNP, LORENA, DRESS DRAPER-C 02/28/2025, 9:16 AM This patient has Chronic [...] PM EDT Arleth Milligan M.D. Internal Medicine PA/DRESS DRAPER Attestation Note Patient: Evgeny Delgado Date of Admission: 02/10/2025 4:04 PM Date of Evaluation: 02/28/2025 I personally evaluated and examined the patient [id number] in conjunction with the PA/DRESS DRAPER and agree with the management and dispostition of the patient. Please see the PA/DRESS DRAPER's note for full details. My jeffries findings [...] Well developed, well nourished with no malnutrition Fagot Maker consult appreciated Monitor daily weights Monitor daily I/O's Medication monitoring / High risk medications: none Disposition: Discharge plan is pending availability of NIV delivery Per SS not a candidate for LTAC or [facility] SHARED APC VISIT, PHYSICIAN ATTESTATION: [id number] I personally performed a substantive part of [...] LEVY Drummond MD, M.D. 02/28/2025 2:22 PM Architect Manager to bedside to complete morning assessment. Upon entry to room, pt alert up to chair, respirations even while on 2L nasal cannula. Vitals obtained and assessment completed, see flow sheet for details. Pt denies needs from copy writer at this time. Call light in reach. [...] Value Date/Time PHART 7.368 02/20/2025 05:32 AM [id number] 64.6 02/20/2025 05:32 AM PO2ART 88.0 02/20/2025 05:32 AM [id number] 96.2 02/20/2025 05:32 AM RHA2OZB 36.3 02/20/2025 05:32 AM PBEA 8.4 02/20/2025 [...] ____Yes ____No ____Patient Refused Occupational Therapy Facility/Department: [facility] Daily Treatment Note NAME: Evgeny [...] 33 Jesenia Medina OT Physical Therapy Facility/Department: [facility] Daily Treatment Note NAME: Evgeny [...] Minutes 25 Silvia Stearns PTA Cosigned by oRb Rojas PT at 02/27/2025 12:28 PM EDT Images from the original note were not included. MEDICAL ASSISTING INSTRUCTOR - Progress Note Patient - Evgeny Delgado [...] Date 02/27/25 0000 - 02/27/25 2359 Shift [id number] 2949-4528 [id number] 24 Hour Total INTAKE P.O. 100 100 [...] I did call and spoke with his Medical Technologist Clinical, Dr Church at [facility] and discussed his case on 02/17/2025. Likely [...] I/O Daily Weight Nutritional Supplements as tolerated Fagot Maker consult initiated MALNUTRITION ASSESSMENT AND PLAN The [...] Accumulation Location: Extremities (02/11/25823) Acute Illness - Melt House Centrifugal Operator Strength: Not Performed (02/11/25823) Acute Illness - [...] SATISFY MIPS PERFORMANCE] LORENA Brown CNP , LORENA-DRESS DRAPER-C 02/27/2025 8:35 AM FACE TO FACE: Patient qualified for home O2. Discussed with patient the medical necessity of home O2. Patient voiced understanding and agreement. LORENA Brown CNP, LORENA, DRESS DRAPER-C 02/27/2025, 8:35 AM This patient has Chronic [...] PM EDT Arleth Milligan M.D. Internal Medicine PA/DRESS DRAPER Attestation Note Patient: Evgeny Delgado Date of Admission: 02/10/2025 4:04 PM Date of Evaluation: 02/27/2025 I personally evaluated and examined the patient [id number] in conjunction with the PA/DRESS DRAPER and agree with the management and dispostition of the patient. Please see the PA/DRESS DRAPER's note for full details. My jeffries findings [...] Well developed, well nourished with no malnutrition Fagot Maker consult appreciated Monitor daily weights Monitor daily I/O's Medication monitoring / High risk medications: none Disposition: Discharge plan is pending availability of NIV delivery Per SS not a candidate for LTAC or [facility] SHARED APC VISIT, PHYSICIAN ATTESTATION: [id number] I personally performed a substantive part of [...] Destiny 02/27/2025 4:54 PM Physical Therapy Facility/Department: [facility] Daily Treatment Note NAME: Evgeny [...] chronic respiratory failure with hypoxia and hypercapnia ([facility]) [J96.21, J96.22] Medical History: Past Medical History: Diagnosis Date Aortic stenosis CHF (congestive heart failure) ([facility]) Diabetes mellitus ([facility]) FSHD (facioscapulohumeral muscular dystrophy) ([facility]) HFrEF (heart failure with reduced ejection fraction) ([facility]) HLD (hyperlipidemia) HTN (hypertension) Nonischemic cardiomyopathy ([facility]) PATIENT ASSESSMENT LABORATORY DATA Hematology: Lab Results Component Value Date/Time WBC 7.0 2025 05:45 AM RBC 4.84 2025 05:45 AM HGB 12.1 2025 05:45 AM HCT 43.5 2025 05:45 AM PLT 154 2025 05:45 AM Chemistry: Lab Results Component Value Date/Time PHART 7.368 02/20/2025 05:32 AM REO5QJL 64.6 02/20/2025 05:32 AM PO2ART 88.0 02/20/2025 05:32 AM P5XQJKLH 96.2 02/20/2025 05:32 AM VXL2YTO 36.3 02/20/2025 05:32 AM PBEA 8.4 02/20/2025 [...] ____Yes ____No ____Patient Refused Physical Therapy Facility/Department: [facility] Daily Treatment Note NAME: Evgeny [...] 02/26/2025 4:07 PM EDT Physical Therapy Facility/Department: [facility] Daily Treatment Note NAME: Evgeny [...] 0947 Time Out 1028 Minutes 41 Silvia Steanrs PTA Cosigned by Lee Andrews PT at 02/26/2025 12:54 PM EDT Images from the original note were not included. MEDICAL ASSISTING INSTRUCTOR - Progress Note Patient - Evgeny Delgado [...] Date 02/26/25 0000 - 02/26/25 2359 Shift [id number] 1341-8524 5428-3514 24 Hour Total INTAKE P.O. 240 240 [...] I did call and spoke with his Medical Technologist Clinical, Dr Church at [facility] and discussed his case on 02/17/2025. Likely [...] I/O Daily Weight Nutritional Supplements as tolerated Fagot Maker consult initiated MALNUTRITION ASSESSMENT AND PLAN The [...] Accumulation Location: Extremities (02/11/25823) Acute Illness - Melt House Centrifugal Operator Strength: Not Performed (02/11/25823) Acute Illness - [...] understanding and agreement. LORENA Brown CNP, LORENA DRESS DRAPER-C 02/26/2025, 9:17 AM This patient has Chronic [...] PM EDT Arleth Milligan M.D. Internal Medicine PA/DRESS DRAPER Attestation Note Patient: Evgeny Delgado Date of Admission: 02/10/2025 4:04 PM Date of Evaluation: 02/26/2025 I personally evaluated and examined the patient [id number] in conjunction with the PA/DRESS DRAPER and agree with the management and dispostition of the patient. Please see the PA/DRESS DRAPER's note for full details. My jeffries findings [...] Well developed, well nourished with no malnutrition Fagot Maker consult appreciated Monitor daily weights Monitor daily I/O's Medication monitoring / High risk medications: none Disposition: Discharge plan is pending availability of NIV delivery Per SS not a candidate for LTAC or [facility] SHARED APC VISIT, PHYSICIAN ATTESTATION: [id number] I personally performed a substantive part of [...] he doesn't want pill until 2200 after copy writer pulled medications, scanned and opened them, copy writer placed medications in locked drawer until ready [...] Date Aortic stenosis CHF (congestive heart failure) ([facility]) Diabetes mellitus (HCC) FSHD (facioscapulohumeral muscular dystrophy) (HCC) HFrEF (heart failure with reduced ejection fraction) ([facility]) HLD (hyperlipidemia) HTN (hypertension) Nonischemic cardiomyopathy ([facility]) PATIENT ASSESSMENT LABORATORY DATA Hematology: Lab Results Component Value Date/Time WBC 7.0 2025 05:45 AM RBC 4.84 2025 05:45 AM HGB 12.1 2025 05:45 AM HCT 43.5 2025 05:45 AM PLT 154 2025 05:45 AM Chemistry: Lab Results Component Value Date/Time PHART 7.368 02/20/2025 05:32 AM MUB3LMS 64.6 02/20/2025 05:32 AM PO2ART 88.0 02/20/2025 05:32 AM C7FUHCYE 96.2 02/20/2025 05:32 AM RFP8MSU 36.3 02/20/2025 05:32 AM PBEA 8.4 02/20/2025 [...] ____Yes ____No ____Patient Refused Physical Therapy Facility/Department: [facility] Daily Treatment Note NAME: Evgeny [...] 02/27/2025 8:21 AM EDT Physical Therapy Facility/Department: [facility] Daily Treatment Note NAME: Evgeny [...] 02/25/2025 11:27 AM EDT Occupational Therapy Facility/Department: [facility] Daily Treatment Note NAME: Evgeny [...] Yessy CHAVEZ 02/25/2025 Cosigned by Fauzia Mejia OTR/nAahi at 02/25/2025 12:46 PM EDT Comprehensive Nutrition [...] Measures: Height: 175.3 cm (5' 9.02 ) [place] Body Weight (IBW): 160 lbs (73 kg) [...] Used for Energy Requirements: Current Energy (kcal/day): 0401-1239 (18-22kcal/kg) Weight Used for Protein Requirements: [place] Protein (g/day): 87-102 (1.2-1.4 g/kg) Method Used [...] current diet Flex Andrews RD, LD Contact: [phone] Images from the original note were not included. MEDICAL ASSISTING INSTRUCTOR - Progress Note Patient - Evgeny Delgado [...] Date 02/25/25 0000 - 02/25/25 2359 Shift [id number] 8897-1660 5141-5588 24 Hour Total INTAKE P.O. 350 350 [...] I did call and spoke with his Medical Technologist Clinical, Dr Church at [facility] and discussed his case on 02/17/2025. Likely [...] I/O Daily Weight Nutritional Supplements as tolerated Fagot Maker consult initiated MALNUTRITION ASSESSMENT AND PLAN The [...] Accumulation Location: Extremities (02/11/25823) Acute Illness - Melt House Centrifugal Operator Strength: Not Performed (02/11/25823) Acute Illness - Malnutrition Score: 7 (02/11/25823) Malnutrition Status: No malnutrition (02/11/25823) I agree with the dietitian's malnutrition assessment. Medical Nutrition Therapy: continue current nutrition therapy [facility] Prophylaxis: DVT: Lovenox Stress Ulcer: PPI [...] understanding and agreement. LORENA Brown CNP, LORENA DRESS DRAPER-C 02/25/2025, 8:12 AM This patient has Chronic [...] PM EDT Arleth Milligan M.D. Internal Medicine PA/DRESS DRAPER Attestation Note Patient: Evgeny Delgado Date of Admission: 02/10/2025 4:04 PM Date of Evaluation: 02/25/2025 I personally evaluated and examined the patient [id number] in conjunction with the PA/DRESS DRAPER and agree with the management and dispostition of the patient. Please see the PA/DRESS DRAPER's note for full details. My jeffries findings [...] Well developed, well nourished with no malnutrition Fagot Maker consult appreciated Monitor daily weights Monitor daily I/O's Medication monitoring / High risk medications: none Disposition: Discharge plan is pending availability of NIV delivery Discussed LTAC vs [facility] until Trilogy NIV machine can be approved SHARED APC VISIT, PHYSICIAN ATTESTATION: [id number] I personally performed a substantive part of [...] interpretation discussed with LEVY Drummond MD , M.Coopre. 02/25/2025 5:04 PM Architect Manager to bedside to complete morning assessment. Upon entry to room, pt sitting up In chair, respirations even and unlabored while on room air. Vitals obtained and assessment completed, see flow sheet for details. Pt denies needs from copy writer at this time. Call light in reach. Chair alarm active. Care ongoing. Images from the original note were not included. MEDICAL ASSISTING INSTRUCTOR - Progress Note Patient - Evgeny Delgado Date of Admission - 02/10/2025 4:04 PM Date of Evaluation - 02/24/2025 Hospital Day - 14 SUBJECTIVE: The Evgeny Delgado is a 70 y.o. male sitting up in chair on 2L of oxygen. No distress or complaints. Continues to await equipment for home. He has been updated by social worker delinquency prevention on what is occurring as far as [...] Date 02/24/25 0000 - 02/24/25 2359 Shift [phone] 7660-0082 7867-8214 24 Hour Total INTAKE P.O. 171 888 3336 Shift Total(mL/kg) 425(4.7) 600(6.6) 1025(11.3) OUTPUT Urine(mL/kg/hr) [...] I did call and spoke with his Medical Technologist Clinical, Dr Church at [facility] and discussed his case on 02/17/2025. Likely [...] I/O Daily Weight Nutritional Supplements as tolerated Fagot Maker consult initiated MALNUTRITION ASSESSMENT AND PLAN The [...] Accumulation Location: Extremities (02/11/25823) Acute Illness - Melt House Centrifugal Operator Strength: Not Performed (02/11/25823) Acute Illness - [...] have personally evaluated and examined the patient [id number] in conjunction with the nurse practitioner. I agree with management and disposition of the patient. Examined and Reviewed plan of care with DRESS DRAPER. Directions and discussion about care and plans. [...] patient. Electronically signed by Fabian Avery MD Occupational Therapy Facility/Department: [facility] Rehabilitation Occupational Therapy Daily Treatment Note Date: 02/24/25 Patient Name: Evgeny Delgado Room: 0328/0328-01 Account: [id number] : 1955 (70 y.o.) Gender: male Past Medical History: has a past medical history of Aortic stenosis, CHF (congestive heart failure) ([facility]), Diabetes mellitus (HCC), FSHD (facioscapulohumeral muscular dystrophy) ([facility]), HFrEF (heart failure with reduced ejection fraction) ([facility]), HLD (hyperlipidemia), HTN (hypertension), and Nonischemic cardiomyopathy ([facility]). Past Surgical History: has a past surgical [...] 28 Jesenia Medina OT Physical Therapy Facility/Department: [facility] Daily Treatment Note NAME: Evgeny [...] Date Aortic stenosis CHF (congestive heart failure) ([facility]) Diabetes mellitus (HCC) FSHD (facioscapulohumeral muscular dystrophy) ([facility]) HFrEF (heart failure with reduced ejection fraction) ([facility]) HLD (hyperlipidemia) HTN (hypertension) Nonischemic cardiomyopathy ([facility]) PATIENT ASSESSMENT LABORATORY DATA Hematology: Lab Results Component Value Date/Time WBC 7.0 2025 05:45 AM RBC 4.84 2025 05:45 AM HGB 12.1 2025 05:45 AM HCT 43.5 2025 05:45 AM PLT 154 2025 05:45 AM Chemistry: Lab Results Component Value Date/Time PHART 7.368 02/20/2025 05:32 AM QIA3UXS 64.6 02/20/2025 05:32 AM PO2ART 88.0 02/20/2025 05:32 AM [id number] 96.2 02/20/2025 05:32 AM AXK8JSL 36.3 02/20/2025 05:32 AM PBEA 8.4 02/20/2025 [...] ____Yes ____No ____Patient Refused Physical Therapy Facility/Department: [facility] Daily Treatment Note NAME: Evgeny [...] shoe and AFO braces) Interventions: Verbal cues Speed/Idane: Slow Step Length: Left shortened;Right shortened Swing [...] transfers independently in order to return to [facility] Short Term Goal 4: Patient will ambulate [...] Andrews PT at 02/24/2025 10:38 AM EDT Architect Manager to bedside to complete morning assessment. Upon entry to room, pt sitting up chair, respirations even and labored while on 2L of O2 via nasal cannula. Vitals obtained and assessment completed, see flow sheet for details. Pt denies needs from copy writer at this time. Call light in reach. Chair alarm active. Care ongoing. Occupational Therapy Facility/Department: [facility] Daily Treatment Note NAME: Evgeny [...] fxl tasks. Pt completed 1# free weight [id number] x all planes. RBs as needed due [...] 02/25/2025 12:46 PM EDT Physical Therapy Facility/Department: [facility] Daily Treatment Note NAME: Evgeny [...] Intake/Output Summary (Last 24 hours) at 02/23/2025 0887 Last data filed at 02/23/2025 0509 Gross [...] Acute respiratory failure with hypoxia and hypercapnia ([facility]) Active Problems: Nonrheumatic aortic valve stenosis Muscular dystrophies ([facility]) Type 2 diabetes mellitus, without long-term current use of insulin ([facility]) Chronic diastolic heart failure ([facility]) Resolved Problems: * No resolved hospital problems. * Patient Active Problem List Diagnosis Date Noted Dyspnea 04/10/2023 Nonrheumatic aortic valve stenosis 04/10/2023 Acute on chronic respiratory failure with hypoxia and hypercapnia ([facility]) 02/10/2025 Chronic diastolic heart failure ([facility]) 05/16/2023 Chronic respiratory failure ([facility]) 04/26/2023 Type 2 diabetes mellitus, without long-term current use of insulin ([facility]) 04/20/2023 Dysphagia 04/19/2023 Acute respiratory failure with hypoxia and hypercapnia ([facility]) 04/11/2023 HFrEF (heart failure with reduced ejection fraction) ([facility]) 04/11/2023 Closed wedge compression fracture of T7 vertebra ([facility]) 04/11/2023 Muscular dystrophies ([facility]) 04/11/2023 NSTEMI (non-ST elevated myocardial infarction) (HCC) [...] within reach. Care ongoing. Occupational Therapy Facility/Department: [facility] Daily Treatment Note NAME: Evgeny [...] 02/25/2025 12:46 PM EDT Physical Therapy Facility/Department: [facility] Daily Treatment Note NAME: Evgeny [...] Intake/Output Summary (Last 24 hours) at 02/22/2025 0680 Last data filed at 02/22/2025 0524 Gross [...] Acute respiratory failure with hypoxia and hypercapnia ([facility]) 04/11/2023 HFrEF (heart failure with reduced ejection fraction) ([facility]) 04/11/2023 Closed wedge compression fracture of T7 vertebra ([facility]) 04/11/2023 Muscular dystrophies ([facility]) 04/11/2023 NSTEMI (non-ST elevated myocardial infarction) ([facility]) 04/05/2023 PLAN: Continue BiPAP at night. Working [...] Assessment: (P) Calm Intervention: (P) Discussed belief system/faith practices/logan, Discussed illness injury and it s impact Outcome: (P) Encouraged, Engaged in conversation Physical Therapy Facility/Department: [facility] Daily Treatment Note NAME: Evgeny [...] 02/21/2025 3:13 PM EDT Occupational Therapy Facility/Department: [facility] Daily Treatment Note NAME: Evgeny [...] 02/21/2025 12:54 PM EDT Physical Therapy Facility/Department: [facility] Daily Treatment Note NAME: Evgeny [...] from the original note were not included. MEDICAL ASSISTING INSTRUCTOR - Progress Note Patient - Evgeny Delgado [...] Date 02/21/25 0000 - 02/21/25 2359 Shift [id number] 4272-9617 3338-5550 24 Hour Total INTAKE P.O. 50 50 [...] I did call and spoke with his Medical Technologist Clinical, Dr Church at [facility] and discussed his case on 02/17/2025. Likely [...] I/O Daily Weight Nutritional Supplements as tolerated Fagot Maker consult initiated MALNUTRITION ASSESSMENT AND PLAN The [...] Accumulation Location: Extremities (02/11/25823) Acute Illness - Melt House Centrifugal Operator Strength: Not Performed (02/11/25823) Acute Illness - Malnutrition Score: 7 (02/11/25823) Malnutrition Status: No malnutrition (02/11/25823) I agree with the dietitian's malnutrition assessment. Medical Nutrition Therapy: continue current nutrition therapy [facility] Prophylaxis: DVT: Lovenox Stress Ulcer: PPI [...] Jillian Lissa LORENA Johnson - LEVY , MEDICAL ASSISTING INSTRUCTOR-DRESS DRAPER-C 02/21/2025 7:31 AM FACE TO FACE: Patient qualified for home O2. Discussed with patient the medical necessity of home O2. Patient voiced understanding and agreement. Jillian Lissa LORENA Johnson CNP, MEDICAL ASSISTING INSTRUCTOR, DRESS DRAPER-C 02/21/2025, 7:31 AM This patient has Chronic [...] have personally evaluated and examined the patient [id number] in conjunction with the nurse practitioner. I agree with management and disposition of the patient. Examined and Reviewed plan of care with DRESS DRAPER. Directions and discussion about care and plans. [...] bedside with the patient. Electronically signed by aFbian Avery MD Architect Manager to bedside to complete morning assessment. Upon entry to room, pt alert up, respirations even while on 2L nasal cannula. Vitals obtained and assessment completed, see flow sheet for details. Pt denies needs from copy writer at this time. Call light in reach. [...] Date Aortic stenosis CHF (congestive heart failure) ([facility]) Diabetes mellitus (HCC) FSHD (facioscapulohumeral muscular dystrophy) ([facility]) HFrEF (heart failure with reduced ejection fraction) ([facility]) HLD (hyperlipidemia) HTN (hypertension) Nonischemic cardiomyopathy ([facility]) PATIENT ASSESSMENT LABORATORY DATA Hematology: Lab Results Component Value Date/Time WBC 7.0 2025 05:45 AM RBC 4.84 2025 05:45 AM HGB 12.1 2025 05:45 AM HCT 43.5 2025 05:45 AM PLT 154 2025 05:45 AM Chemistry: Lab Results Component Value Date/Time PHART 7.368 02/20/2025 05:32 AM YWX7JRJ 64.6 02/20/2025 05:32 AM PO2ART 88.0 02/20/2025 05:32 AM D0DODUQR 96.2 02/20/2025 05:32 AM BQT9NGV 36.3 02/20/2025 05:32 AM PBEA 8.4 02/20/2025 [...] ____Yes ____No ____Patient Refused Physical Therapy Facility/Department: [facility] Daily Treatment Note NAME: Evgeny [...] to leave IV out. Occupational Therapy Facility/Department: [facility] Daily Treatment Note NAME: Evgeny [...] 02/21/2025 12:54 PM EDT Physical Therapy Facility/Department: [facility] Daily Treatment Note NAME: Evgeny [...] SUP/Mod I. Gait with 4WW, SUP/Mod I [id number] with no noted LOB. Reclined and seated [...] from the original note were not included. MEDICAL ASSISTING INSTRUCTOR - Progress Note Patient - Evgeny Delgado [...] Date 02/20/25 0000 - 02/20/25 2359 Shift [phone] 1652-4755 0457-6200 24 Hour Total INTAKE P.O. 100 100 [...] I did call and spoke with his Medical Technologist Clinical, Dr Church at [facility] and discussed his case on 02/17/2025. Likely [...] I/O Daily Weight Nutritional Supplements as tolerated Fagot Maker consult initiated MALNUTRITION ASSESSMENT AND PLAN The [...] Accumulation Location: Extremities (02/11/25823) Acute Illness - Melt House Centrifugal Operator Strength: Not Performed (02/11/25823) Acute Illness - [...] SATISFY MIPS PERFORMANCE] LORENA Brown CNP , LORENA-DRESS DRAPER-C 02/20/2025 7:33 AM FACE TO FACE: Patient qualified for home O2. Discussed with patient the medical necessity of home O2. Patient voiced understanding and agreement. LORENA Brown CNP, LORENA, DRESS DRAPER-C 02/20/2025, 7:33 AM This patient has Chronic [...] have personally evaluated and examined the patient [id number] in conjunction with the nurse practitioner. I agree with management and disposition of the patient. Examined and Reviewed plan of care with DRESS DRAPER. Directions and discussion about care and plans. [...] Call light in reach. Physical Therapy Facility/Department: [facility] Daily Treatment Note NAME: Evgeny [...] 2025 3:24 PM EDT Occupational Therapy Facility/Department: [facility] Daily Treatment Note NAME: Evgeny [...] from the original note were not included. MEDICAL ASSISTING INSTRUCTOR - Progress Note Patient - Evgeny Delgado [...] Date 02/19/25 0000 - 02/19/25 2359 Shift [id number] [phone] 24 Hour Total INTAKE Shift Total(mL/kg) OUTPUT [...] I did call and spoke with his Medical Technologist Clinical, Dr Church at [facility] and discussed his case on 02/17/2025. Likely [...] I/O Daily Weight Nutritional Supplements as tolerated Fagot Maker consult initiated MALNUTRITION ASSESSMENT AND PLAN The [...] Accumulation Location: Extremities (02/11/25823) Acute Illness - Melt House Centrifugal Operator Strength: Not Performed (02/11/25823) Acute Illness - [...] Full Code Disposition: Discharge plan is home [facility] Advanced Care Planning documentation: [x] I have [...] PM EDT Arleth Milligan M.D. Internal Medicine PA/DRESS DRAPER Attestation Note Patient: Evgeny Delgado Date of Admission: 02/10/2025 4:04 PM Date of Evaluation: 2025 I personally evaluated and examined the patient [id number] in conjunction with the PA/DRESS DRAPER and agree with the management and dispostition of the patient. Please see the PA/DRESS DRAPER's note for full details. My jeffries findings [...] (Restricted: peds pts or suitable admitted adults) [[id number]] Collected: 02/10/25 1853 Order Status: Completed Specimen: [...] Well developed, well nourished with no malnutrition Fagot Maker consult appreciated Monitor daily weights Monitor daily I/O's Medication monitoring / High risk medications: none Disposition: Discharge plan is pending availability of NIV delivery SHARED APC VISIT, PHYSICIAN ATTESTATION: [id number] I personally performed a substantive part of [...] M.D. 2025 8:32 PM Physical Therapy Facility/Department: [facility] Daily Treatment Note NAME: Evgeny [...] patient was located at Facility (Appt Department): [facility] [address] [place] [address] Loc: [phone] The provider was located at Facility (Login Dept): [facility] [address] [place] [address] Yes, I confirm. Total time spent on this encounter: Not billed by time --Ronn Cheek MD on 02/18/2025 at 5:25 PM An electronic signature was used to authenticate this note. SUBJECTIVE CHIEF COMPLAINT/REASON FOR CONSULT:Shortness of Breath (Patient presents to the emergency department with complaint of increasing shortness of breath. Patient reports that he recently returned from [place] and has not felt right since. He [...] near his home . After return from [place] has been feeling worse , SATs at [...] the following organ systems is limited: Vitals/Constitutional/EENT/Resp/CV /GI//MS/Neuro/Skin/Rhzb-Aryjt-Oe m. SYSTEMIC EXAMINATION: General appearance - [] [...] [Urine:4925] Date 02/18/25 - 02/18/25 2359 Shift 1603-5769 0576-5522 8640-0866 24 Hour Total INTAKE P.O.(mL/kg/hr) 600(0.8) 600 Shift Total(mL/kg) 600(6.6) 600(6.6) OUTPUT Urine(mL/kg/hr) 800(1.1) 1900(2.6) 2700 Shift Total(mL/kg) 800(8.8) 1900(20.9) 2700(29.7) Weight (kg) 90.9 90.9 90.9 90.9 LABORATORY RESULTS: BLOOD GASES: No results for input(s): POCPH , POCPCO2 , POCPO2 , POCHCO3 , UHPO9PTH in the last 72 hours. COMPLETE BLOOD [...] extrapolated by contextual diversion. Physical Therapy Facility/Department: [facility] Daily Treatment Note NAME: Evgeny [...] Ankle Foot Orthotics Left Lower Extremity Brace: [place] Foot Orthotics Subjective Subjective Subjective: Pt. up [...] loss Fluid Accumulation: Moderate to Severe Extremities Melt House Centrifugal Operator Strength: Not Performed Nutrition Assessment: Continued limited [...] Measures: Height: 175.3 cm (5' 9.02 ) [place] Body Weight (IBW): 160 lbs (73 kg) [...] results for input(s): LABALBU , LABA1C , S2LDSAJ , FT4 , TSH , AST , ALT , LDH , GGT , ALKPHOS , BILITOT , AMMONIA , AMYLASE , LIPASE , LACTATE , CHOL , TRIG , HDL , LDLDIRECT , BNP , TROPONINI , CKTOTAL in the last 72 hours. Invalid input(s): PROT , F9DTILP , LDLCALC , LABVLDL Estimated Daily Nutrient Needs: Energy Requirements Based On: Kcal/kg Weight Used for Energy Requirements: Current Energy (kcal/day): 7569-8222 (18-22kcal/kg) Weight Used for Protein Requirements: [place] Protein (g/day): 87-102 (1.2-1.4 g/kg) Method Used [...] Planning: Continue current diet Janey Brink Contact: [phone], LD at 02/18/2025 1:10 PM EDT RESPIRATORY ASSESSMENT PROTOCOL Patient Name: Evgeny Delgado Room#: 0328/0328-01 : 1955 Admitting diagnosis: Acute on chronic respiratory failure with hypoxia and hypercapnia (HCC) [J96.21, J96.22] Medical History: Past Medical History: Diagnosis Date Aortic stenosis CHF (congestive heart failure) ([facility]) Diabetes mellitus (HCC) FSHD (facioscapulohumeral muscular dystrophy) (HCC) HFrEF (heart failure with reduced ejection fraction) ([facility]) HLD (hyperlipidemia) HTN (hypertension) Nonischemic cardiomyopathy ([facility]) PATIENT ASSESSMENT LABORATORY DATA Hematology: Lab Results Component Value Date/Time WBC 6.0 02/15/2025 06:00 AM RBC 5.07 02/15/2025 06:00 AM HGB 12.7 02/15/2025 06:00 AM HCT 45.6 02/15/2025 06:00 AM PLT 151 02/15/2025 06:00 AM Chemistry: Lab Results Component Value Date/Time PHART 7.348 02/18/2025 05:45 AM MWB8NWH 72.7 02/18/2025 05:45 AM PO2ART 93.7 02/18/2025 05:45 AM S1HDITII 96.5 02/18/2025 05:45 AM LCP6FUG 39.1 02/18/2025 05:45 AM PBEA 10.1 02/18/2025 [...] ____Yes ____No ____Patient Refused Occupational Therapy Facility/Department: [facility] Daily Treatment Note NAME: Evgeny [...] 02/18/2025 2:40 PM EDT Physical Therapy Facility/Department: [facility] Daily Treatment Note NAME: Evgeny Delagdo : 1955 Date of Service: 02/18/2025 Discharge [...] Ankle Foot Orthotics Left Lower Extremity Brace: [facility] Subjective Subjective Subjective: Pt. up [...] from the original note were not included. MEDICAL ASSISTING INSTRUCTOR - Progress Note Patient - Evgeny Delgado [...] Date 02/18/25 0000 - 02/18/25 2359 Shift [id number] [id number] 24 Hour Total INTAKE P.O. 360 360 [...] I did call and spoke with his Medical Technologist Clinical, Dr Church at [facility] and discussed his case on 02/17/2025. Likely [...] I/O Daily Weight Nutritional Supplements as tolerated Fagot Maker consult initiated MALNUTRITION ASSESSMENT AND PLAN The [...] Accumulation Location: Extremities (02/11/25823) Acute Illness - Melt House Centrifugal Operator Strength: Not Performed (02/11/25823) Acute Illness - [...] the patient's medical record. [DOES NOT SATISFY [facility] PERFORMANCE] LORENA Brown CNP , LORENA-DRESS DRAPER-C 02/18/2025 9:04 AM FACE TO FACE: Patient qualified for home O2. Discussed with patient the medical necessity of home O2. Patient voiced understanding and agreement. LORENA Brown CNP, LORENA, DRESS DRAPER-C 02/18/2025, 9:04 AM This patient has Chronic [...] PM EDT Arleth Milligan M.D. Internal Medicine PA/DRESS DRAPER Attestation Note Patient: Evgeny Delgado Date of Admission: 02/10/2025 4:04 PM Date of Evaluation: 02/18/2025 I personally evaluated and examined the patient [id number] in conjunction with the PA/DRESS DRAPER and agree with the management and dispostition of the patient. Please see the PA/DRESS DRAPER's note for full details. My jeffries findings [...] (Restricted: peds pts or suitable admitted adults) [[id number]] Collected: 02/10/25 8516 Order Status: Completed Specimen: Nasopharyngeal Swab Updated: [...] Well developed, well nourished with no malnutrition Fagot Maker consult appreciated Monitor daily weights Monitor daily I/O's Medication monitoring / High risk medications: none Disposition: Discharge plan is pending availability of NIV delivery SHARED APC VISIT, PHYSICIAN ATTESTATION: [id number] I personally performed a substantive part of [...] chronic respiratory failure with hypoxia and hypercapnia ([facility]) [J96.21, J96.22] Medical History: Past Medical History: Diagnosis Date Aortic stenosis CHF (congestive heart failure) ([facility]) Diabetes mellitus ([facility]) FSHD (facioscapulohumeral muscular dystrophy) ([facility]) HFrEF (heart failure with reduced ejection fraction) ([facility]) HLD (hyperlipidemia) HTN (hypertension) Nonischemic cardiomyopathy ([facility]) PATIENT ASSESSMENT LABORATORY DATA Hematology: Lab Results Component Value Date/Time WBC 6.0 02/15/2025 06:00 AM RBC 5.07 02/15/2025 06:00 AM HGB 12.7 02/15/2025 06:00 AM HCT 45.6 02/15/2025 06:00 AM PLT 151 02/15/2025 06:00 AM Chemistry: Lab Results Component Value Date/Time PHART 7.548 02/17/2025 03:08 PM ODR2VIO 32.1 02/17/2025 03:08 PM PO2ART 86.4 02/17/2025 03:08 PM F0ZJQUAY 97.6 02/17/2025 03:08 PM AGH2TRJ 27.3 02/17/2025 03:08 PM PBEA 5.4 02/17/2025 [...] ____Yes ____No ____Patient Refused Physical Therapy Facility/Department: [facility] Daily Treatment Note NAME: Evgeny [...] visit. Assessment Assessment: Transfers:SBA. Pt ambulated 80ftx, 21gcp33 with 4WW and SBA for safety. Slow [...] 02/27/2025 7:42 AM EDT Occupational Therapy Facility/Department: [facility] Daily Treatment Note NAME: Evgeny [...] Palliative Care Inpatient Patient: Evgeny Delgado Room: [address] [place] [address] Reason For Consult Goals of care evaluation Distress management Guidance and support Facilitate communications Assistance in coordinating care Code Status: DNR-CCA Impression: Evgeny Delgado is a 69 y.o. year old male has a past medical history of Aortic stenosis, CHF (congestive heart failure) ([facility]), Diabetes mellitus ([facility]), FSHD (facioscapulohumeral muscular dystrophy) ([facility]), HFrEF (heart failure with reduced ejection fraction) ([facility]), HLD (hyperlipidemia), HTN (hypertension), and Nonischemic cardiomyopathy ([facility]).. Currently hospitalized for the management of Respiratory [...] List Diagnosis NSTEMI (non-ST elevated myocardial infarction) ([facility]) Dyspnea Nonrheumatic aortic valve stenosis Acute respiratory failure with hypoxia and hypercapnia ([facility]) HFrEF (heart failure with reduced ejection fraction) ([facility]) Closed wedge compression fracture of T7 vertebra ([facility]) Muscular dystrophies ([facility]) Dysphagia Type 2 diabetes mellitus, without long-term current use of insulin ([facility]) Chronic respiratory failure ([facility]) Chronic diastolic heart failure ([facility]) Acute on chronic respiratory failure with hypoxia and hypercapnia ([facility]) Palliative Interaction: Evgeny is resting in the chair. Family member at bedside. Architect Manager present when FORESTRY WORKER discuss that current treatment is not improving blood gasses and the plan to change settings and recheck gasses in a few hours. Evgeny states that he does not want a ventilator at this time. He would like to continue with the current treatment plan and prays that his gasses will improve and he will be able to go home soon. Goals/Plan of care Validating patient/family distress Continued communication updates Palliative care office: [phone] Patient placed on BIPAP 12/6 28% per order. Patient only getting return Vt of 100-200s. Increased IPAP to 16, Vt now 400-500s. Patient appears anxious but says he is comfortable. [facility] Cardiopulmonary Services [address] [place] [address] Name: Evgeny Delgado : 1955 Diagnisis: Acute [...] SpO2 was 91 %. Physical Therapy Facility/Department: [facility] Daily Treatment Note NAME: Evgeny [...] Andrews PT at 02/17/2025 12:31 PM EDT MEDICAL ASSISTING INSTRUCTOR - Progress Note Patient - Evgeny Delgado [...] I did call and spoke with his Medical Technologist Clinical, Dr Church at [facility] and discussed his case. Likely related to [...] I/O Daily Weight Nutritional Supplements as tolerated Fagot Maker consult initiated MALNUTRITION ASSESSMENT AND PLAN The [...] Accumulation Location: Extremities (02/11/25823) Acute Illness - Melt House Centrifugal Operator Strength: Not Performed (02/11/25823) Acute Illness - [...] Full Code Disposition: Discharge plan is home [facility] Advanced Care Planning documentation: [x] I have [...] the patient's medical record. [DOES NOT SATISFY [facility] PERFORMANCE] Jillian Johnson APRN - LEVY , LORENA-DRESS DRAPER-C 02/17/2025 8:16 AM FACE TO FACE: Patient qualified for home O2. Discussed with patient the medical necessity of home O2. Patient voiced understanding and agreement. LORENA Brown CNP, LORENA, DRESS DRAPER-C 02/17/2025, 8:16 AM This patient has Chronic [...] PM EDT Arleth Milligan M.D. Internal Medicine PA/DRESS DRAPER Attestation Note Patient: Evgeny Delgado Date of Admission: 02/10/2025 4:04 PM Date of Evaluation: 02/17/2025 I personally evaluated and examined the patient [id number] in conjunction with the PA/DRESS DRAPER and agree with the management and dispostition of the patient. Please see the PA/DRESS DRAPER's note for full details. My jeffries findings [...] (Restricted: peds pts or suitable admitted adults) [[id number]] Collected: 02/10/25 6803 Order Status: Completed Specimen: Nasopharyngeal Swab Updated: [...] Well developed, well nourished with no malnutrition Fagot Maker consult appreciated Monitor daily weights Monitor daily I/O's Medication monitoring / High risk medications: none Disposition: Discharge plan is pending availability of NIV delivery SHARED APC VISIT, PHYSICIAN ATTESTATION: [id number] I personally performed a substantive part of [...] Date Aortic stenosis CHF (congestive heart failure) ([facility]) Diabetes mellitus (HCC) FSHD (facioscapulohumeral muscular dystrophy) (HCC) HFrEF (heart failure with reduced ejection fraction) ([facility]) HLD (hyperlipidemia) HTN (hypertension) Nonischemic cardiomyopathy ([facility]) PATIENT ASSESSMENT LABORATORY DATA Hematology: Lab Results Component Value Date/Time WBC 6.0 02/15/2025 06:00 AM RBC 5.07 02/15/2025 06:00 AM HGB 12.7 02/15/2025 06:00 AM HCT 45.6 02/15/2025 06:00 AM PLT 151 02/15/2025 06:00 AM Chemistry: Lab Results Component Value Date/Time PHART 7.304 02/16/2025 06:15 AM KMD5GST 81.3 02/16/2025 06:15 AM PO2ART 64.9 02/16/2025 06:15 AM O9HCRVER 89.6 02/16/2025 06:15 AM DHN8AKE 39.5 02/16/2025 06:15 AM PBEA 9.4 02/16/2025 [...] [] Thoracic or upper abdominal [] T [facility] 02-28-2025 Hospital Discharge instructions Beti Atkinson RN [...] most local grocery stores, pharmacies, and chain [employer]stores. If you have any questions about your diet or nutrition, call the hospital and ask for the dietitian. Regular diet The following attachments cannot be sent through Care Everywhere.Respiratory Failure: General Info (Finnish)documented in this encounter [facility] 02-28-2025 Hospital course Narrative Discharge Summary Evgeny [...] Patient had went on a trip to [place] and not felt well patient found that he was hypoxic. He states that his son has oxygen at home so he had been using it. He reported it did help some but not a lot. He denied chest pain or swelling. He denied palpitations. He denied abdominal pain including nausea vomiting diarrhea. Patient stated that he does follow with pulmonology in [place]. He reported a few years back he [...] him today. He will follow-up with his shallot cleaner as well as primary care. Consultants: Dr. [...] chronic respiratory failure with hypoxia and hypercapnia ([facility]) 02/10/2025 Chronic diastolic heart failure ([facility]) 05/16/2023 Chronic respiratory failure ([facility]) 04/26/2023 Type 2 diabetes mellitus, without long-term current use of insulin ([facility]) 04/20/2023 Dysphagia 04/19/2023 Acute respiratory failure with hypoxia and hypercapnia ([facility]) 04/11/2023 HFrEF (heart failure with reduced ejection fraction) ([facility]) 04/11/2023 Closed wedge compression fracture of T7 vertebra ([facility]) 04/11/2023 Muscular dystrophies ([facility]) 04/11/2023 NSTEMI (non-ST elevated myocardial infarction) ([facility]) 04/05/2023 Discharge Medications: Medication List START taking [...] Your Medications These medications were sent to [id number] - [place], [place] - [address] - P [phone] - F [phone] [place] [address] albuterol (2.5 MG/3ML) 0.083% nebulizer solution cetirizine [...] applicable) NORA/ARB in CHF: NA Statin in RI: NA ASA in RI: NA Statin in CVA: NA Antiplatelet in CVA: NA Total time spent on discharge services: 45 minutes Including the following activities: Evaluation and Management of patient Discussion with patient and/or surrogate about current care plan Coordination with Case Management and/or Wool Shearing Supervisor Coordination of care with Consultants (if applicable) Coordination of care with Receiving Facility Physician (if applicable) Completion of DME forms (if applicable) Preparation of Discharge Summary Preparation of Medication Reconciliation Preparation of Discharge Prescriptions Signed: LORENA Brown CNP, LORENA, DRESS DRAPER-C 02/28/2025, 1:44 PM Please note that this chart was generated using voice recognition REMOTV dictation software. Although every effort was made to ensure the accuracy of this automated healthcare advisory services manager, some errors in healthcare advisory services manager may have occurred. Cosigned by Arleth Milligan MD at 02/28/2025 2:26 PM EDT Associated attestation - Arleth Milligan MD - 02/28/2025 2:26 PM EDT Arleth Milligan M.D. Internal Medicine PA/DRESS DRAPER Discharge Summary Attestation Patient: Evgeny Delgado I personally evaluated and examined the patient [id number] in conjunction with the PA/DRESS DRAPER and agree with the management and dispostition of the patient. Please see the PA/DRESS DRAPER's note for full details. My jeffries findings [...] care plan Coordination with Case Management and/or Wool Shearing Supervisor Coordination of care with Consultants (if applicable) Coordination of care with Receiving Facility Physician (if applicable) Completion of DME forms (if applicable) Preparation of Discharge Summary Preparation of Medication Reconciliation Preparation of Discharge Prescriptions Arleth Milligan MD , M.D. 02/28/2025 2:26 PM documented in this encounter [facility] 12-25-2024 Note - From: Day Yi RN ([facility] ([facility] [place] To: Marco Bosch DO; Sent: 12/25/2024 14:41:17 [...] 3 Substitutions Allowed Route To Pharmacy - [id number] Signed by Marco Bosch DO 12/25/2024 14:47:00 EDT From: Marco Bosch DO To: [facility] ([facility]); Sent: 12/25/2024 14:48:23 EDT Subject: RE: Med [...] months we can capture this. reminder placed [facility] 12-05-2024 Note - From: Day Yi RN ([facility] ([facility] [place] To: Marco Bosch DO; Sent: 12/05/2024 07:28:55 EST Subject: FW: Medication Management Due Date/Time: 12/06/2024 02:57:00 EST Caller Name: EVGENY DELGADO; Caller Number: , Duy Patient matched by Day Yi RN on 12/05/2024 07:28:43 EST -------- From: [facility] To: Marco Bosch DO Sent: December 05, 2024 1:57:33 AM HOUSE CALLS NURSE Subject: Medication Management Due: December 06, 2024 12:11:25 AM HOUSE CALLS NURSE On Hold Pending Signature Drug: pantoprazole (pantoprazole [...] Pharmacy: -------- From: Marco Bosch DO To: [facility] Sent: 12/05/2024 07:31:56 EST Subject: [...] 3 Substitutions Allowed Route To Pharmacy - [facility] Approved with modifications: tamsulosin (Tamsulosin HCl Oral Capsule 0.4 MG) TAKE 2 CAPSULES EVERY DAY Qty: 180 cap(s) Days Supply: 90 Refills: 3 Substitutions Allowed Route To Pharmacy - [facility] Delivery [facility] 11-04-2024 Note - From: Day Yi RN ([facility] ([facility])) To: Marco Bosch DO; Sent: 11/04/2024 [...] by Marco Bosch DO 11/04/2024 13:45:00 EST [facility] 10-21-2024 Note - From: Day Yi RN ([facility] ([facility])) To: Marco Bosch DO; Sent: 10/21/2024 13:56:17 EST Subject: Med Management Caller Name: EVGENY DELGADO; Caller Number: , Caller is: ( X ) Patient ( ) Mother ( ) Father ( ) Pharmacy ( ) Other: Pharmacy to route Rx to: [facility] Patient's Provider: Reviewed Allergies: ( ) Yes ( ) No Pharmacy: [facility] Comments: 1. Name of Medication: METOPROLOL SUCCINATE [...] 3 Substitutions Allowed Route To Pharmacy - [facility] Delivery Signed by Marco Bosch DO 10/21/2024 14:15:00 EST [facility] 09-23-2024 Note - From: Day Yi RN ([facility] ([facility])) To: Shannon Brambila CNP; Sent: 09/23/2024 07:31:21 EST Subject: FW: Medication Management Due Date/Time: 09/23/2024 02:45:00 EST Caller Name: EVGENY DELGADO; Caller Number: , Patient matched by Day Yi RN on 09/23/2024 07:31:09 EST -------- From: [facility] To: Marco Bosch DO Sent: September 21, 2024 1:45:16 AM HOUSE CALLS NURSE Subject: Medication Management Due: September 22, 2024 12:30:42 AM HOUSE CALLS NURSE On Hold Pending Signature Drug: furosemide (furosemide 20 mg oral tablet), TAKE 1 TABLET EVERY DAY Quantity: 90 tab(s) Days Supply: 0 Refills: 3 Substitutions Allowed Notes from Pharmacy: Dispensed Drug: furosemide (furosemide 20 mg oral tablet), TAKE 1 TABLET EVERY DAY Quantity: 90 tab(s) Days Supply: 90 Refills: 3 Substitutions Allowed Notes from Pharmacy: -------- From: Shannon Brambila APRN, CNP To: [facility] Mail Delivery Sent: 09/23/2024 10:46:53 EST Subject: FW: Medication Management Submitted: Complete:furosemide (furosemide 20 mg oral tablet) Signed by Shannon Brambila APRN, CNP 09/23/2024 10:46:00 EST Approved with modifications: furosemide (Furosemide Oral Tablet 20 MG) TAKE 1 TABLET EVERY DAY Qty: 90 tab(s) Days Supply: 90 Refills: 3 Substitutions Allowed Route To Pharmacy - [facility] Mail Delivery Signed by Shannon Brambila APRN, CNP [facility] 08-15-2024 Note - From: Day Yi RN ([facility] ([facility]) To: Marco Bosch DO; Sent: 08/15/2024 08:09:15 EDT Subject: FW: Medication Management Due Date/Time: 08/16/2024 08:05:00 EDT Caller Name: EVGENY DELGADO; Caller Number: , -------- From: [id number] To: Marco Bosch DO Sent: August [...] 3 Substitutions Allowed Route To Pharmacy - [facility] Signed by Marco Bosch DO 08/15/2024 08:17:00 EDT [facility] 07-24-2024 Note Entered by Day Yi RN on July 24, 2024 07:40:33 EDT From: Day Yi RN To: [facility] Sent: 07/24/2024 07:40:33 EDT Subject: Medication Management Submitted: Complete:dapagliflozin (Farxiga 10 mg oral tablet) Signed by Day Yi RN 07/24/2024 07:40:00 EDT Approved with modifications: dapagliflozin (FARXIGA TABS 10MG) TAKE 1 TABLET DAILY Qty: 90 tab(s) Days Supply: 0 Refills: 3 Substitutions Allowed Route To Pharmacy - [facility] Signed by Day Yi RN -------- From: [facility] To: Marco Bosch DO Sent: [...] 3 Substitutions Allowed Notes from Pharmacy: -------- [facility] 07-08-2024 Note - From: Day Yi RN ([facility] ([facility])) To: Marco Bosch DO; Sent: 07/08/2024 07:40:12 EDT Subject: FW: Medication Management Due Date/Time: 07/09/2024 02:08:00 EDT Caller Name: EVGENY DELGADON; Caller Number: Lizet , Duy -------- From: [facility] To: Marco Bosch DO Sent: [...] Pharmacy: -------- From: Marco Bosch DO To: [facility] Sent: 07/08/2024 07:53:52 EDT Subject: FW: Medication Management Submitted: Complete:citalopram (CeleXA 20 mg oral tablet) Signed by Marco Bosch DO 07/08/2024 07:53:00 EDT Approved with modifications: citalopram (CITALOPRAM HYDROBROMIDE TABS 20MG) TAKE 1 TABLET DAILY Qty: 90 tab(s) Days Supply: 0 Refills: 3 Substitutions Allowed Route To Pharmacy - [facility] 06-13-2024 Note - From: Day Yi RN ([facility] ([facility])) To: Marco Bosch DO; Sent: 06/13/2024 13:13:32 EDT Subject: Med Management Caller Name: EVGENY DELGADO; Caller Number: H , M Caller is: ( ) Patient ( ) Mother ( ) Father ( X ) Pharmacy ( ) Other: Pharmacy to route Rx to: [facility] Patient's Provider: Reviewed Allergies: ( ) Yes ( ) No Pharmacy: [facility] Comments: 1. Name of Medication: ATORVASTATIN [...] tab(s) Refills: 3 Substitutions Allowed Route To [facility] Mail Delivery Signed by Marco Bosch DO 06/13/2024 13:30:00 EDT [facility] 06-03-2024 Note - From: Day Yi RN ([facility] ([facility])) To: Marco Bosch DO; Sent: 06/03/2024 07:33:36 EDT Subject: FW: Medication Management Due Date/Time: 06/04/2024 02:14:00 EDT Caller Name: EVGENY DELGADO; Caller Number: , -------- From: [facility] To: Marco Bosch DO Sent: [...] Pharmacy: -------- From: Marco Bosch DO To: [facility] Sent: 06/03/2024 07:35:36 EDT Subject: FW: Medication Management Submitted: Complete:midodrine (midodrine 10 mg oral tablet) Signed by Marco Bosch DO 06/03/2024 07:35:00 EDT Approved with modifications: midodrine (MIDODRINE HCL TABS 10MG) TAKE 1 TABLET THREE TIMES A DAY Qty: 270 tab(s) Days Supply: 0 Refills: 3 Substitutions Allowed Route To Pharmacy - [facility] 04-23-2024 Note - From: Day Yi RN ([facility] ([facility] To: Marco Bosch DO; Sent: 04/23/2024 09:57:04 [...] 3 Substitutions Allowed Route To Pharmacy - [facility] Signed by Marco Bosch DO 04/23/2024 10:05:00 EDT [facility] 04-15-2024 Note - From: Day Yi RN ([facility] ([facility])) To: Marco Bosch DO; Sent: 04/15/2024 [...] Pharmacy: -------- From: Marco Bosch DO To: [facility] Sent: 04/15/2024 07:28:35 EDT Subject: FW: Medication Management Submitted: Complete:allopurinol (allopurinol 300 mg oral tablet) Signed by Marco Bosch DO 04/15/2024 07:28:00 EDT Approved with modifications: allopurinol (ALLOPURINOL TABS 300MG) TAKE 1 TABLET DAILY Qty: 90 tab(s) Days Supply: 0 Refills: 3 Substitutions Allowed Route To Pharmacy - [facility] 04-04-2024 Note - From: Silvia Khan MA ([facility] ([facility])) To: Marco Bosch DO; Sent: 04/04/2024 12:55:17 EDT Subject: FW: Medication Management Due Date/Time: 04/05/2024 12:03:00 EDT Caller Name: EVGENY DELGADO; Caller Number: , -------- From: [id number] To: Marco Bosch DO Sent: April [...] Pharmacy: -------- From: Marco Bosch DO To: [facility] Sent: 04/04/2024 12:56:44 EDT Subject: FW: Medication Management Submitted: Complete:sacubitril-valsartan (Entresto 24 mg-26 mg oral tablet) Signed by Marco Bosch DO 04/04/2024 12:56:00 EDT Approved with modifications: sacubitril-valsartan (Entresto 24 mg-26 mg tablet) TAKE 1/2 (ONE-HALF) OF A TABLET BY MOUTH TWICE DAILY Qty: 90 tab(s) Days Supply: 90 Refills: 3 Substitutions Allowed Route To Pharmacy - [facility] 02-27-2023 Note [place] [facility] - [facility] Subjective Evgeny Delgado is [...] Acute renal insufficiency Back pain CAD in [place] artery CHF (congestive heart failure) (CMS/HCC) Constipation COVID Dependent edema Diplopia Elevated PSA Erectile dysfunction Facioscapulohumeral muscular dystrophy (CMS/HCC) Gastroesophageal reflux disease Hyperkalemia Hyperlipidemia Hyponatremia Kidney stone 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 exterminator helper termite (current) use of oral hypoglycemic drugs exterminator helper termite current use of therapeutic drug Muscular dystrophy [...] been having significant shortness of breath on mtiv-rv-ivubisag exertion. NYHA class II-III. He has no [...] EC tablet, Take (more content not included)... [facility] 12-21-2022 Note Cardiovascular Medic [facility] SUBJECTIVE Chief Complaint Patient presents with [...] Acute renal insufficiency Back pain CAD in navajo artery CHF (congestive heart failure) ([facility]/HCC) Constipation COVID Dependent edema Diplopia Elevated PSA Erectile dysfunction Facioscapulohumeral muscular dystrophy ([facility]/HCC) Gastroesophageal reflux disease Hyperkalemia Hyperlipidemia Hyponatremia Kidney stone care home (current) use of aspirin exterminator helper termite (current) use of oral hypoglycemic drugs care home current use of therapeutic drug Muscular dystrophy ([facility]/HCC) Personal history of nicotine dependence Physical deconditioning Prostate cancer ([facility]/HCC) Pure hypercholesterolemia, unspecified Shortness of breath Transient cerebral ischemic attack, unspecified Past Medical History: Diagnosis Date Cancer ([facility]/HCC) CHF (congestive heart failure) ([facility]) Coronary artery disease Diabetes mellitus ([facility]/HCC) Heart valve disease Hyperlipidemia Hypertension Nonischemic cardiomyopathy ([facility]/HCC) Family History Problem Relation Name Age of [...] Behavior: Behavior normal (more content not included)... [facility] 12-21-2022 Note Patient here for 3 [...] All other systems reviewed and are negative. [facility] 09-01-2022 Note Subjective Evgeny Delgado is [...] -We discussed cardiac (more content not included)... [facility] 09-01-2022 Note Patient here for fol low up EP study. Review of Systems Musculoskeletal: Positive for back pain and muscle weakness. All other systems reviewed and are negative. [facility] 08-08-2022 Note COMPREHENSIVE EP VEL DY PROCEDURE NOTE DATE OF PROCEDURE: 08/08/2022 PERFORMING PHYSICIAN: Dr. Mohan Cam CLOTH EDGE SINGER: None INDICATIONS FOR PROCEDURE: 1. History of [...] type 2, hypertension was recently admitted to [facility] for heart failure symptoms. He was [...] as needed. Mohan Cam MD Cardiac Electrophysiology [facility] 08-08-2022 Note Patient: Evgeny bob Procedure Information Date/Time: 08/08/22 1330 Procedure: Electrophysiology procedure - non sustained VT Location: [facility] HOUSEHOLD APPLIANCE ASSEMBLER 1 / [facility] (Cath) Providers: Mohan Cam MD Clinical information reviewed: Physical Exam Airway Mallampati: II TM distance: >3 FB Neck ROM: full Cardiovascular Dental Pulmonary Abdominal Anesthesia Plan ASA 2 CSE Anesthetic plan and risks discussed with patient. Use of blood products discussed with patient who. Additional Equipment Requests [facility] 08-08-2022 Note [place] Cardiology Consul t Note Reason for Consultation: NSVT HPI: Evgeny Delgado is a 67 y.o. year old with past medical history of Facioscapulohumeral muscular dystrophy, nonischemic cardiomyopathy on a recent echo, bicuspid aortic valve, diabetes mellitus type 2, hypertension was recently admitted to [facility] for heart failure symptoms. He was [...] Labs: @LABRESULTS@ EKG: (more content not included)... [facility] 07-05-2022 Note ND Cardiology Consul t Note Reason for Consultation: NSVT HPI: Evgeny Delgado is a 67 y.o. year old with past medical history of Facioscapulohumeral muscular dystrophy, nonischemic cardiomyopathy on a recent echo, bicuspid aortic valve, diabetes mellitus type 2, hypertension was recently admitted to [facility] for heart failure symptoms. He was [...] heard Diastolic Mu (more content not included)... [facility] 05-26-2022 Note MR#: [id number] [facility] Pt. Name: Evgeny Delgado Admitted: 05/21/2022 [...] a 67-year-old male. He presented initially to [facility] with complaints of increased lower extremity swelling [...] fraction as per the echocardiogram done at [facility] showing an EF of 40 to 45%. [...] Gamble MD Date Trans: 05/26/2022 07:35 P/tonio [id number] cc: Chirag Ragsdale [address] [facility] [address] George Nieto M.D. [address] [place] [address], [facility] A [facility] [address] [facility] 02-09-2022 Note HNO ID: [id number] Author: Ebonie Keyes APRN.FORESTRY WORKER Service: ? Author Type: Nurse Practitioner Type: Progress Notes Filed: 02/09/2022 2:12 PM Note Text: Telemedicine Visit - Distance Health Virtual Visit Note Patient seen on [employer] Online platform. Location of [place]: [place] History of Present Illness Evgeny Delgado is [...] help in providing you the best care. [facility] 02-09-2022 Instructions Ebonie Keyes APRN.CNP - 02/09/2022 2:11 PM EDT Images from the original note were not included. Adult Sinusitis Patient Education What is Sinusitis? Sinusitis [pjky-hgp-qaxd-tis] is inflammation of the sinuses or swelling [...] help. You may be instructed to take szfb-xvc-bsbixdp medications for symptoms. including fever reducers acetaminophen or ibuprofen, nasal saline spray, cough and cold preparations and decongestants as prescribed by the physician, nurse practitioner or physician family medicine physician assistant. Self-Care and Prevention: Rest Fluids for [...] while you are sick so you don't cone picker a different virus, or infect others. [...] per day. The below information is from prescribersletter.Fabric Engine: Antibiotics Will rarely help an upper respiratory infections. Antibiotics lead to more resistant infections that are harder to treat. There is little to no benefit to taking antibiotics for most acute upper respiratory tract infections. documented in this encounter [facility] 02-09-2022 History of Present illness Narrative Telemedicine Visit - Distance Health Virtual Visit Note Patient seen on [employer] Online platform. [place] History of Present Illness Evgeny Delgado is [...] the best care. documented in this encounter [facility] 12-20-2021 Note HNO ID: [id number] Author: Jeanetet Abdul APRN.CNP Service: ? Author Type: Nurse Practitioner Type: Progress Notes Filed: 12/20/2021 7:01 PM Note Text: Telemedicine Visit - Distance Health Virtual Visit Note Patient seen on [employer] Online platform. Location [place] History of Present Illness Evgeny Delgado is [...] MG TABLET - BENZONATATE 100 MG CAPSULE -[email or web address] [email or web address]/pat ient-resources/antibiotics/. This link shares information about when antibiotics may help and when they may not. - Red flags discussed for need for in person care - All questions answered Jeanette Abdul APRN.FORESTRY WORKER If you let us know who your [...] would like to continue care with a [facility] Primary Care physician, please ask your provider to place a Establish Primary Care order. Use iVilka to manage your care, wherever you are, 08/05, on your mobile device or computer. iVilka connects you to [employer] so you can access all your health information in one place and also schedule and request vir (more content not included)... [facility] Evaluation note Diagnosis URI, acute- Primary Acute upper respiratory infections of unspecified site documented in this encounter [facility] noteNo assessment information availableCent[place] Work Phone: Evaluation note* Diagnosis Heart murmur Undiagnosed cardiac murmurs documented in this encounter [facility] note* Diagnosis Acute respiratory failure with hypoxia [...] Aortic valve disorders documented in this encounter [facility] Purpose Family History No Family History [...] Documents on File Type Date Recorded Patient Coagulating Drying Supervisor Expl anation ACP-Do Not Resuscitate 02/11/2025 12:32 PM DNR-CCA ACP-Advance Directive 02/11/2025 12:30 PM Health Care Power of Adult Care Provider Date Activated Date Inactivated Comments 02/11/2025 12:33 [...] murmur Procedures Echo (TTE) complete (PRN contrast/bubble/strain/3D) GA ECHO TTHRC R-T 2D W/WOM-MODE COMPL SPEC&COLR D GA TTE W OR WO URBANO PINTO Mark F, MD [address] [place] [id number] Referral ID Status Reason Start Date Expiration Date Visits Re quested Visits Authorized [id number] Closed 12/16/2024 12/16/2025 1 1 Additional Source Comments Source Comments (unrecognize d section and content) In the event this informatio n is protected by the Federal Confidentiality of Alcohol and Drug Abuse Patient Records regulations: The Federal rules restrict any use of the information to criminally investigate or prosecute any alcohol or drug abuse patient.[facility] Reason for Visit (unrecogniz ed section and content) Reason Comments Upper Respiratory Infection Specialty Diagnoses / Procedures Referred By Contac t Referred To Contact Diagnoses Heart murmur Procedures Echo (TTE) complete (PRN contrast/bubble/strain/3D) GA ECHO TTHRC R-T 2D W/WOM-MODE COMPL SPEC&COLR D GA TTE W OR WO URBANO PINTO Mark F, MD [address] [facility] [place] [id number] Referral ID Status Reason Start Date Expiration Date Visits Re quested Visits Authorized [id number] Closed 12/16/2024 12/16/2025 1 1 Reason Comments Shortness of Breath Patient presents to the emergency department with complaint of increasing shortness of breath. Patient reports that he recently returned from [place] and has not felt right since. He has been checking his Spo2 levels at home with the lowest being in the 70's Has been using oxygen which has been making him feel better. Specialty Diagnoses / Procedures Referred By Wiliam hayden Referred To Contact Diagnoses Acute on chronic respiratory failure with hypoxia and hypercapnia (HCC) Arleth Milligan MD [address] [place] [address] Phone: tel: fax: [facility] [address] [place] [address] Referral ID Status Reason Start Date Expiration Date Visits Re quested Visits Authorized [id number] 1 1 (unrecognized sect ion and content) No Status Records FoundNo Status Records FoundNo Status Records FoundNo Status Records FoundNo Status Records FoundNo Status Records FoundNo Status Records FoundNo Status Records Found INFORMATION SOURCE (unrecogn ized section and content) DATE CREATED AUTHOR 02/12/2022 [facility] DATE CREATED AUTHOR AUTHOR'S ORGANIZ ATION 06/08/2022 [facility] DATE CREATED AUTHOR AUTHOR'S ORGANIZ ATION 03/01/2023 [facility] DATE CREATED AUTHOR AUTHOR'S ORGANIZ ATION 03/27/2023 [facility] DATE CREATED AUTHOR AUTHOR'S ORGANIZ ATION 05/02/2023 [facility] DATE CREATED AUTHOR AUTHOR'S ORGANIZ ATION 07/03/2023 [facility] DATE CREATED AUTHOR AUTHOR'S ORGANIZ ATION 03/05/2025 [facility] DATE CREATED AUTHOR AUTHOR'S ORGANIZ ATION 03/22/2025 [facility] Care Teams (unrecognized sec tion and content) Team Status: Inactive Member Role Status Dates Marco Bosch DO Primary Care Provider Active George Nieto MD Attending Provider Active Team Status: Active Member Role Status Dates Marco Bosch DO Primary Care Provider Active Vest Front Presser Relationship Specialty Start Date End Date Marco Bosch MD [address] [place] [address] PCP - General 04/05/23 Vest Front Presser Relationship Specialty [place] [address] [place] [id number] PCP - General 04/05/23 Goals (unrecognized section [...] Protocol 0522 (Given - Provider: Robert Reagan AUTOMOTIVE ELECTRICIAN HELPER)1115 (Given - Provider: Duane Aldana AUTOMOTIVE ELECTRICIAN HELPER)1622 (Given - Provider: Duane Aldana AUTOMOTIVE ELECTRICIAN HELPER)2108 (Given - Provider: Valencia Olson [facility]) 0610 (Given - Provider: Duane Aldana AUTOMOTIVE ELECTRICIAN HELPER)1124 (Given - Provider: Duane Aldana AUTOMOTIVE ELECTRICIAN HELPER)170 (Not Given - Provider: Karyn Patel [facility] - Reason: Patient not available - Comment: patient in the restroom at this time)2027 (Given - Provider: Shannon Oconnor AUTOMOTIVE ELECTRICIAN HELPER) 0555 (Given - Provider: Shannon Oconnor AUTOMOTIVE ELECTRICIAN HELPER)1030 (Given - Provider: Liliane Rod AUTOMOTIVE ELECTRICIAN HELPER) ipratropium 0.5 mg-albuterol 2.5 mg (DUONEB) nebulizer [...] Newsome RN) 08 (Given - Provider: Flory Ibarar)2156 (Given - Provider: Eliza Perez, MELISSA) 09 [...] BE BASED ON THE PRIMARY CLINICAL RECORDS. [facility]. provides no warranty or guarantee of the accuracy or completeness of information in this document.
[2025-04-04] MEDS: AZTREONAM 2,000 MG in 0.9 % SODIUM CHLORIDE 100 ML 100 MG IV ×3 (05:16→20:01)
[2025-04-04 06:09] LABS: Basophils Percent Auto 0.5 % (0.2-2.0); Eosinophils Absolute Auto 0.1 10^3/uL (0.0-0.7); Hematocrit 44.6 % (42.0-54.0); Hemoglobin 13.4 g/dL (14.0-18.0); Immature Granulocytes Abs Auto 0.02 10^3/uL (0.00-0.03); Immature Granulocytes Pct Auto 0.3 % (0.0-0.5); Lymphocytes Absolute Auto 0.8 10^3/uL (1.2-3.8); Lymphocytes Percent Auto 10.4 % (20.5-60.0); Mean Corpuscular Hemoglobin 27.2 pg (25.9-34.0); Mean Corpuscular Volume 90.5 fL (80.0-94.0); Monocytes Absolute Auto 0.7 10^3/uL (0.3-0.8); Monocytes Percent Auto 9.1 % (1.7-12.0); Neutrophils Percent Auto 78.7 % (43.0-75.0); Platelet Count 145 10^3/uL (150-450); Red Blood Count 4.93 10^6/uL (4.70-6.10); White Blood Count 7.7 10^3/uL (4.0-11.0)
[2025-04-04 06:24] LABS: Alanine Aminotransferase 34 U/L (16-63); Albumin Level 3.5 g/dL (3.4-5.0); Alkaline Phosphatase 107 U/L (46-116); Anion Gap 13.3; Aspartate Amino Transferase 29 U/L (15-37); BUN Creatinine Ratio 41.5; Bilirubin Total 0.8 mg/dL (0.2-1.0); Carbon Dioxide 32.5 mmol/L (21.0-32.0); Chloride 100 mmol/L (98-107); Estimated GFR (African America >60 (>=60 mL/min/1.73m^2); Estimated GFR (Non-African Ame >60 (>=60 mL/min/1.73m^2); Globulin 3.4 g/dL; Glucose 136 mg/dL (74-106); Magnesium 1.7 mg/dL (1.8-2.4); Potassium 3.8 mmol/L (3.5-5.1); Sodium 142 mmol/L (136-145); Total Protein 6.9 g/dL (6.4-8.2)
--- NOTE | 2025-04-04 07:01 | P.HP_ITS ---
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 Opioid HPI Opioid Management Most Recent Pain and Opioid Data: Last Pain Assessment Today, 04:00 Last ORT Total Score 0 Today, 03:38 Last ORT Risk Category Low Risk Today, 03:38 Review of Systems ROS Status of ROS 10 or more systems reviewed and unremark able except as noted in history and below PFSH [facility] Medical History (Updated 04/04/25 @ 08:18 by Lucien Winkler MD) 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 removal of thyroid gland ?E89.2 - Postprocedural hypoparathyroidism (ICD-10) H/O nephrolithotomy with removal of calculi ?Z98.890 - Other specified postprocedural states (ICD-10) ?Z87.442 - Personal history of urinary calculi (ICD-10) Kidney stones ?N20.0 - Calculus of kidney (ICD-10) CHF (congestive heart failure) ?I50.9 - Heart failure, unspecified (ICD-10) Diaphragm dysfunction ?J98.6 - Disorders of diaphragm (ICD-10) Diabetes ?E11.9 - Type 2 diabetes mellitus without complications (ICD-10) Social History (Updated 04/04/25 @ 03:44 by Sasha Abdi RN) Within the past year, how often did you have a drink containing alcohol: never Within the past year, how often did you have six or more drinks on one occasion: never Score interpretation: A score less than 4 is consistent with normal alcohol consumption. Smoking status: Former smoker Second hand tobacco smoke exposure: No Non-prescribed substance use: denies use Previous occupational history: retired Known occupational exposures/hazards: No Highest level of school completed/degree received: high school graduate Do you want help with school or training: No Are you now , , , , never or living with a partner: In a typical week, how many times do you talk on the telephone with family, friends, or neighbors: 3 or more times per week How often do you get together with friends or relatives: once per week How often do you attend mu-ism or samaritan services: 4 or more times per year Do you belong to any clubs or organizations such as mu-ism groups unions, fraternal or athletic groups, or school groups: yes Total score: 4 Score interpretation: A score of greater than or equal to 2 indicates the lowest level of social isolation. Little interest or pleasure in doing things: not at all Feeling down, depressed, or hopeless: not at all Feel stressed/tense/nervous/anxious/difficulty sleeping: not at all Due to disability, difficulty making decisions: No Meds Home Medications and Allergies Home Medications ?Medication ?Instructions ?Recorded ?Confirmed ?Type allopurinol 300 mg tablet 300 mg PO .once daily 04/03/25 History aspirin 81 mg tablet,delayed 81 mg PO DAILY 04/03/23 0 04/03/25 History release atorvastatin 40 mg tablet 40 mg PO DAILY 04/03/2303/16 History doxycycline hyclate 100 mg capsule 100 mg PO BID 04/0304/03/25 History furosemide 20 mg tablet 20 mg PO DAILY 04/03/2303/16 History glyburide micronized 3 mg tablet mg 04/03/23 History Held on 04/03/25. Instructions: Doctor's Order sacubitril 24 mg-valsartan 26 mg 0.5 tab PO BID 04/04/25 History tablet (Entresto) alprazolam 0.5 mg tablet 0.25 mg PO BEDTIME 04/03/25 04/03/25 History cetirizine 10 mg tablet 10 mg PO DAILY 04/03/2503/16 History glipizide 2.5 mg tablet, extended 2.5 mg PO DAILY 03/1604/03/25 History release 24 hr ipratropium 0.5 mg-albuterol 3 mg 3 ml inhalation Q8H 04/03/25 04/03/25 History (2.5 mg base)/3 mL nebulization soln ipratropium bromide 21 mcg (0.03 2 spray intranasal BI D 04/03/25 04/03/25 History %) nasal spray metoprolol succinate 25 mg 25 mg PO DAILY 04/03/25 History tablet,extended release 24 hr midodrine 10 mg tablet 10 mg PO TID 04/03/25 History pantoprazole 40 mg tablet,delayed 40 mg PO DAILY 04/0304/03/25 History release tamsulosin 0.4 mg capsule 0.8 mg PO DAILY 04/03/25 History trazodone 50 mg tablet 50 mg PO BEDTIME 04/03/25 History citalopram 20 mg tablet 20 mg PO DAILY 04/04/2503/17 History Allergies Allergy/AdvReac Type Severity Reaction Status Date / Time acetaminophen (From Vicodin) Allergy Mild Hives Verified 04/03/25 21:52 oseltamivir (From Tamiflu) Allergy Mild SOB Verified 04/03/25 21:52 oxycodone Allergy Mild Hives Verified 04/03/25 21:52 Cephalosporins Allergy SOB Verified 04/03/25 21:52 ciprofloxacin (From Cipro) Allergy Hives Verified 04/03/25 21:52 hydrocodone (From Vicodin) Allergy Hives Verified 04/03/25 21:52 levofloxacin Allergy Hives Verified 04/03/25 21:52 Penicillins Allergy Hives Verified 04/03/25 21:52 sitagliptin (From Januvia) Allergy SOB Verified 04/03/25 21:52 loracarbef (From Lorabid) AdvReac Intermediate Rash Verified 04/03/25 21:52 Exam Constitutional Vital Signs, click to edit/add: Last Vital Signs Temp 99.6 F 04/04/25 03:53 Pulse 93 H 04/04/25 06:00 Resp 18 04/04/25 04:06 BP 144/83 H 04/04/25 03:53 Pulse Ox 92 L 04/04/25 04:06 O2 Del Method Nasal Cannula 04/04/25 04:06 O2 Flow Rate 2 04/04/25 03:53 FiO2 2 04/04/25 04:06 Documenting provider has reviewed patient's vital signs: yes Common normals: apparent distress (Moderate respiratory distress with conversational dyspnea) Respiratory Common normals: no retractions; abnormal respiratory effort and not clear to ascultation bilaterally Auscultation: rales (Bases) and rhonchi Extremity Common normals: abnormal to inspection (2-3+ edema) Results Labs Labs: Short CBC 04/03/25 04/04/25 Range/Units 22:45 05:57 WBC 6.4 7.7 (4.0-11.0) 10^3/uL Hgb 14.4 13.4 L (14.0-18.0) g/dL Hct 48.3 44.6 (42.0-54.0) % Plt Count 164 145 L (150-450) 10^3/uL BMP 04/03/25 04/04/25 22:45 05:57 Sodium 142 142 Potassium 4.3 3.8 Chloride 100 100 Carbon Dioxide 37.5 H 32.5 H BUN 18.0 17.0 Creatinine 0.55 L 0.41 L Glucose 160 H 136 H Calcium 9.3 9.0 Liver Function 04/04/25 Range/Units 05:57 Total Bilirubin 0.8 (0.2-1.0) mg/dL AST 29 (15-37) U/L ALT 34 (16-63) U/L Alkaline Phosphatase 107 (46-116) U/L Albumin 3.5 (3.4-5.0) g/dL Assessment and Plan Assessment and Plan (1) Muscular dystrophy: (2) Left lower lobe pneumonia: (3) Acute dyspnea: (4) CHF (congestive heart failure): (5) Diaphragm dysfunction: (6) Diabetes: (7) Sleep apnea: (8) Chronic hypoxic respiratory failure: (9) Aortic stenosis: (10) Thrombocytopenia: (11) Fluid overload: (12) Hypomagnesemia: Plan Admission findings: Sinus tachycardia, relative hypoxia with O2 sat of 91% on his 2 L, normally upper 90s, white blood cell count normal but with left shift consistent with a bacterial process, chest x-ray clear but exam consistent with bilateral pneumonia Bilateral pneumonia causing acute exacerbation of chronic hypoxic respiratory failure, acute hypoxia with O2 sat of only 91% on his 2 L complicated by his diaphragm paralysis-aerosol treatments will increase to every 6, every 3 as needed try vest treatments and try saline and Mucinex aerosols, add steroids, maintain current antibiotics with patient with severe long list of antibiotic allergies, sputum culture collected, repeat chest x-ray, consider CTA Thrombocytopenia-monitor daily Hypomagnesemia-supplement 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 Inpatient status
[2025-04-04 07:35] LABS: Lactate/Lactic Acid 1.8 mmol/L (0.4-2.0)
--- NOTE | 2025-04-04 07:46 | XR_ITS ---
The [address] [address] Patient Name: EVGENY DELGADO MRN: [id number] date: 1955 Sex: M Assigned Patient Location: [place] Current Patient Location: [place] Accession/Order Number: [id number] Exam Date: 04/04/2025 09:00 Report Date: 04/04/2025 09:11 At the request of: MAIK ORANTES MD Procedure: XR chest 2V PA AND LATERAL CHEST: CLINICAL HISTORY: Shortness of breath COMPARISON: 04/03/[address] 02/10/2025 There is continued elevation of the right hemidiaphragm with adjacent atelectasis and/or scarring. There is also minimal scarring or atelectasis at the left base.. There is no developing consolidation, effusion or pneumothorax. The cardiac, hilar and mediastinal silhouettes are within normal limits. There is no vascular congestion. The visualized bony thorax is intact. In plate spurring is seen at the spine. XR/XR chest 2V IMPRESSION: NO ACUTE CARDIOPULMONARY ABNORMALITY. Impression dictated by: Lisa Anderson M.D. 04/04/2025 9:11 AM Dictation Location: [place] [address] Electronically authenticated by: [id number] Y Date: 04/04/2025 09:11
[2025-04-04] MEDS: glipiZIDE 2.5 MG TAB.ER.24 PO (09:53)
[2025-04-04] MEDS: ENOXAPARIN SODIUM 40 MG/0.4 ML SYRINGE SUBQ (09:53)
[2025-04-04] MEDS: METHYLPREDNISOLONE SOD SUCC PF 125 MG/2 ML VIAL IVP (09:53)
[2025-04-04] MEDS: BENZONATATE 100 MG CAPSULE 200 MG PO ×3 (09:54→21:15)
[2025-04-04] MEDS: ACETAMINOPHEN 500 MG TABLET 1000 MG PO ×3 (09:54→23:51)
[2025-04-04] MEDS: ALLOPURINOL 300 MG TABLET PO (09:54)
[2025-04-04] MEDS: ATORVASTATIN CALCIUM 40 MG TABLET PO (09:55)
[2025-04-04] MEDS: METOPROLOL SUCCINATE 25 MG TAB.ER.24H PO (09:55)
[2025-04-04] MEDS: SACUBITRIL/VALSARTAN 24 MG-26 MG TABLET 1 TAB PO ×2 (09:55→21:16)
[2025-04-04] MEDS: CETIRIZINE HCL 10 MG TABLET PO (09:55)
[2025-04-04] MEDS: TAMSULOSIN HCL 0.4 MG CAPSULE 0.8 MG PO (09:55)
[2025-04-04] MEDS: ASPIRIN 81 MG TABLET.DR PO (09:55)
[2025-04-04] MEDS: ACETYLCYSTEINE 400 MG/4 ML VIAL 200 MG IH ×2 (11:02→22:24)
[2025-04-04] MEDS: GUAIFENESIN 600 MG TAB.ER.12H 1200 MG PO ×2 (11:34→21:16)
[2025-04-04] MEDS: PANTOPRAZOLE SODIUM 40 MG TABLET.DR PO (11:34)
[2025-04-04] MEDS: FUROSEMIDE 40 MG/4 ML VIAL IVP ×2 (11:34→21:16)
[2025-04-04] MEDS: MAGNESIUM OXIDE 400 MG TABLET PO ×2 (11:34→21:16)
[2025-04-04] MEDS: CITALOPRAM HYDROBROMIDE 20 MG TABLET PO (11:39)
[2025-04-04] MEDS: MIDODRINE HCL 5 MG TABLET 10 MG PO ×2 (11:42→16:30)
[2025-04-04 11:44] LABS: Glucometer 128 mg/dL (74-106)
[2025-04-04] MEDS: METHYLPREDNISOLONE SOD SUCC PF 125 MG/2 ML VIAL 60 MG IVP ×2 (14:06→21:16)
--- NOTE | 2025-04-04 15:01 | CM.NOTE ---
Discussed with pt about recommendation for PT and OT for skilled therapy. Pt and both refuse skilled or HH services at this time. Discussed home safety, both deny any discharge needs at this time.
[2025-04-04 16:13] LABS: Glucometer 288 mg/dL (74-106)
[2025-04-04] MEDS: INSULIN ASPART 300 UNIT/3 ML PEN SUBQ ×2 (16:30→21:20)
[2025-04-04] MEDS: SODIUM CHLORIDE 3% INHALATION 15 ML NEB 3 ML IH (17:10)
[2025-04-04] MEDS: BENZOCAINE/MENTHOL 1 LOZENGE BOX PO (18:24)
[2025-04-04] MEDS: ALPRAZOLAM 0.25 MG TABLET PO (21:16)
[2025-04-04] MEDS: TRAZODONE HCL 50 MG TABLET PO (21:16)
[2025-04-04 21:25] LABS: Glucometer 221 mg/dL (74-106)
[2025-04-04] MEDS: AZITHROMYCIN 500 MG in 0.9 % SODIUM CHLORIDE 250 ML 200 MG IV (23:42)
[2025-04-05] VITALS (9 sets, daily range): BP systolic 96–116; BP diastolic 59–70; PULSE 56–101; TEMP 36.4–37; O2SAT 90–95
[2025-04-05] MEDS: METHYLPREDNISOLONE SOD SUCC PF 125 MG/2 ML VIAL 60 MG IVP ×3 (03:28→17:19)
[2025-04-05] MEDS: AZTREONAM 2,000 MG in 0.9 % SODIUM CHLORIDE 100 ML 100 MG IV ×3 (03:29→21:46)
[2025-04-05] MEDS: BENZONATATE 100 MG CAPSULE 200 MG PO ×3 (05:04→21:48)
[2025-04-05] MEDS: SODIUM CHLORIDE 3% INHALATION 15 ML NEB 3 ML IH ×2 (05:36→18:01)
[2025-04-05] MEDS: IPRATROPIUM/ALBUTEROL SULFATE 3 ML AMPUL.NEB IH (05:36)
[2025-04-05 06:15] LABS: Basophils Percent Auto 0.1 % (0.2-2.0); Hematocrit 43.9 % (42.0-54.0); Hemoglobin 13.5 g/dL (14.0-18.0); Immature Granulocytes Abs Auto 0.04 10^3/uL (0.00-0.03); Immature Granulocytes Pct Auto 0.5 % (0.0-0.5); Lymphocytes Percent Auto 12.5 % (20.5-60.0); Mean Corpuscular HGB Conc 30.8 g/dL (29.9-35.2); Mean Corpuscular Hemoglobin 27.6 pg (25.9-34.0); Mean Corpuscular Volume 89.8 fL (80.0-94.0); Mean Platelet Volume 10.2 fL (9.5-13.5); Monocytes Absolute Auto 0.2 10^3/uL (0.3-0.8); Monocytes Percent Auto 2.3 % (1.7-12.0); Neutrophils Absolute Auto 6.7 10^3/uL (1.4-6.5); Neutrophils Percent Auto 84.6 % (43.0-75.0); Platelet Count 150 10^3/uL (150-450); Red Cell Distribution Width 22.1 % (11.0-15.0)
[2025-04-05 06:32] LABS: Red Blood Count 4.89 10^6/uL (4.70-6.10)
[2025-04-05 06:36] LABS: Alanine Aminotransferase 37 U/L (16-63); Albumin Globulin Ratio 0.8; Alkaline Phosphatase 97 U/L (46-116); Anion Gap 8.3; Aspartate Amino Transferase 43 U/L (15-37); BUN Creatinine Ratio 54.7; Bilirubin Total 0.7 mg/dL (0.2-1.0); Calcium 8.7 mg/dL (8.5-10.1); Carbon Dioxide 37.2 mmol/L (21.0-32.0); Chloride 100 mmol/L (98-107); Estimated GFR (African America >60 (>=60 mL/min/1.73m^2); Estimated GFR (Non-African Ame >60 (>=60 mL/min/1.73m^2); Globulin 3.8 g/dL; Glucose 191 mg/dL (74-106); Magnesium 1.9 mg/dL (1.8-2.4); Potassium 4.5 mmol/L (3.5-5.1); Sodium 141 mmol/L (136-145); Total Protein 6.8 g/dL (6.4-8.2)
--- NOTE | 2025-04-05 08:01 | P.PN_ITS ---
Progress Note: Subjective Subjective Interval history: She appears much improved from previous day, cough much improved, respiratory distress and conversational dyspnea also improved Exam Constitutional Vital Signs, click to edit/add: Last Vital Signs Temp 97.6 F 04/05/25 03:36 Pulse 61 04/05/25 05:36 Resp 20 04/05/25 05:36 BP 96/59 04/05/25 03:36 Pulse Ox 93 L 04/05/25 05:36 O2 Del Method Nasal Cannula 04/05/25 05:36 O2 Flow Rate 2 04/05/25 05:36 FiO2 2 04/04/25 04:06 Documenting provider has reviewed patient's vital signs: yes Common normals: apparent distress (Much improved with just mild conversational dyspnea) Chest Common normals: inspection of chest normal Respiratory Common normals: abnormal respiratory effort (Mild conversational dyspnea) Auscultation: rhonchi, wheezes and diminished lung sounds (Very poor air exchange) Cardio Common normals: regular rate and regular rhythm GI Common normals: negative for Normal to inspection, nondistended, normoactive bowel sounds present (Obese) Progress Note: Objective Labs Labs: Short CBC 04/05/25 Range/Units 05:56 WBC 8.0 (4.0-11.0) 10^3/uL Hgb 13.5 L (14.0-18.0) g/dL Hct 43.9 (42.0-54.0) % Plt Count 150 (150-450) 10^3/uL BMP 04/05/25 05:56 Sodium 141 Potassium 4.5 Chloride 100 Carbon Dioxide 37.2 H BUN 29.0 H Creatinine 0.53 L Glucose 191 H Calcium 8.7 Liver Function 04/05/25 Range/Units 05:56 Total Bilirubin 0.7 (0.2-1.0) mg/dL AST 43 H (15-37) U/L ALT 37 (16-63) U/L Alkaline Phosphatase 97 (46-116) U/L Albumin 3.0 L (3.4-5.0) g/dL Progress Note: A&P Assessment and Plan (1) Muscular dystrophy: (2) Left lower lobe pneumonia: (3) Acute dyspnea: (4) CHF (congestive heart failure): (5) Diaphragm dysfunction: (6) Diabetes: (7) Sleep apnea: (8) Chronic hypoxic respiratory failure: (9) Aortic stenosis: (10) Thrombocytopenia: (11) Fluid overload: (12) Hypomagnesemia: Plan Admission findings: Sinus tachycardia, relative hypoxia with O2 sat of 91% on his 2 L, normally upper 90s, white blood cell count normal but with left shift consistent with a bacterial process, chest x-ray clear but exam consistent with bilateral pneumonia Bilateral pneumonia causing acute exacerbation of chronic hypoxic respiratory failure, acute hypoxia with O2 sat of only 91% on his 2 L complicated by his diaphragm paralysis-medications extensively adjusted yesterday and is improved today, maintain current antibiotics appreciate input from pulmonology Thrombocytopenia-improving Hypomagnesemia-stable after supplementation 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 Inpatient status ?
--- NOTE | 2025-04-05 09:33 | PT.DAILY ---
Physical Therapy Daily Note PT Daily Note/Assess Start: 04/05/25 09:20 Freq: Status: Active Protocol: Document 04/05/25 09:20 [id number] (Rec: 04/05/25 09:33 [id number]) Physical Therapy Daily Note/Assessment Time In/Time Out Time In 08:28 Time Out 08:52 Pain In Pain Level 8 Pain Out Pain Level 8 Subjective Subjective Patient received seated in chair and agreeable to participate with PT. Requests to not wear AFO's this date. Patient has slip resistant socks on. States his pain is due to a sore throat from coughing. Patient on 2L O2, SPO2 level 88% prior to treatment. Therapeutic Exercise Time Therapeutic Exercise 8 Minutes (minutes) Therapeutic Exercise 1 Units Therapeutic Exercise Treatment Therapeutic Exercise SPO2 prior to ther ex 92% Patient performed seated RUBEN Treatment LE ther ex to improve strength for gait and ADL's @ 10 reps for: LAQ's, marching, MRE hip ABD/ADD. Standing RUBEN LE ther ex at 4WW w/ CGA +1 for marching x 15 reps, hip flexion/ABD/extension x 10 reps. SPO2 after ther ex @ 84%. Therapeutic Activity Time Therapeutic Activity 16 Minutes (minutes) Therapeutic Activity 1 Units Therapeutic Activity Treatment Chair Transfer Standby Assistance,Contact Guard Assist Ability Therapeutic Activity SPO2 prior to walking @ 88%. Sit to stand to 4WW is Comments SBA to CGA +1. Patient places 1 UE on 4WW and the other on chair arm rest. Patient ambulated 84 feet x 1 with 4WW w/ CGA +1, MIN A +1 for O2 line management. Stand to sit CGA +1. Patient with SOB and required 2-3 minutes to recover. SPO2 post ambulation 92%. Post ambulation patient performed ther ex. Patient seated in chair at bedside, tray with breakfast placed in front of patient and CBWR. All needs met. Total Physical Therapy Time Total Therapy 24 Minutes Total Physical 2 Therapy Units Summary Daily Note Summary Patient with SOB post exertion with ther ex and ambulation requiring seated therapeutic rest break for recovery. Demonstrates increased ambulation distance this date. Patient would benefit from physical therapy upon D/C to address functional deficits and return to PLOF.
[2025-04-05] MEDS: TAMSULOSIN HCL 0.4 MG CAPSULE 0.8 MG PO (10:16)
[2025-04-05] MEDS: ALLOPURINOL 300 MG TABLET PO (10:16)
[2025-04-05] MEDS: ATORVASTATIN CALCIUM 40 MG TABLET PO (10:16)
[2025-04-05] MEDS: SACUBITRIL/VALSARTAN 24 MG-26 MG TABLET 1 TAB PO ×2 (10:16→21:47)
[2025-04-05] MEDS: glipiZIDE 2.5 MG TAB.ER.24 PO (10:16)
[2025-04-05] MEDS: GUAIFENESIN 600 MG TAB.ER.12H 1200 MG PO ×2 (10:17→21:47)
[2025-04-05] MEDS: METOPROLOL SUCCINATE 25 MG TAB.ER.24H PO (10:17)
[2025-04-05] MEDS: CETIRIZINE HCL 10 MG TABLET PO (10:17)
[2025-04-05] MEDS: ASPIRIN 81 MG TABLET.DR PO (10:18)
[2025-04-05] MEDS: ENOXAPARIN SODIUM 40 MG/0.4 ML SYRINGE SUBQ (10:18)
[2025-04-05] MEDS: CITALOPRAM HYDROBROMIDE 20 MG TABLET PO (10:18)
[2025-04-05] MEDS: MIDODRINE HCL 5 MG TABLET 10 MG PO ×2 (10:18→17:19)
[2025-04-05] MEDS: PANTOPRAZOLE SODIUM 40 MG TABLET.DR PO (10:19)
[2025-04-05] MEDS: MAGNESIUM OXIDE 400 MG TABLET PO ×2 (10:19→21:47)
[2025-04-05] MEDS: FUROSEMIDE 40 MG/4 ML VIAL IVP (10:19)
[2025-04-05] MEDS: BENZOCAINE/MENTHOL 1 LOZENGE BOX PO ×3 (10:21→22:02)
[2025-04-05] MEDS: ACETYLCYSTEINE 400 MG/4 ML VIAL 200 MG IH ×2 (11:28→23:17)
[2025-04-05] MEDS: IPRATROPIUM BROMIDE 0.5 MG/2.5 ML VIAL.NEB IH ×3 (11:31→23:17)
[2025-04-05] MEDS: LEVALBUTEROL HCL 0.63 MG/3 ML VIAL.NEB IH ×3 (11:31→23:17)
--- NOTE | 2025-04-05 12:11 | PM.PLCN ---
History of Present Illness History of Present Illness Consult date: 04/05/25 Requesting physician: Lucien Winkler Reason for consult: dyspnea Chief complaint: CONGESTION, CLINICAL PNEUMONIA, FAILED OUTPATIENT Narrative: 70yo male, well known to me, presented to [facility] with respiratory distress. His had a URI and the patient contracted it. He failed outpatient doxycycline and did not respond. On presentation, he was in respiratory distress and admitted to the hospital. His breathing was labored for a day after, but has felt slightly improved overnight. Still has difficulty expectorating. Pleuritic pain has improved. 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 gland ?E89.2 - Postprocedural hypoparathyroidism (ICD-10) H/O nephrolithotomy with removal of calculi ?Z98.890 - Other specified postprocedural states (ICD-10) ?Z87.442 - Personal history of urinary calculi (ICD-10) Kidney stones ?N20.0 - Calculus of kidney (ICD-10) CHF (congestive heart failure) ?I50.9 - Heart failure, unspecified (ICD-10) Diaphragm dysfunction ?J98.6 - Disorders of diaphragm (ICD-10) Diabetes ?E11.9 - Type 2 diabetes mellitus without complications (ICD-10) Social History (Updated 04/04/25 @ 03:44 by Sasha Abdi RN) Within the past year, how often did you have a drink containing alcohol: never Within the past year, how often did you have six or more drinks on one occasion: never Score interpretation: A score less than 4 is consistent with normal alcohol consumption. Smoking status: Former smoker Second hand tobacco smoke exposure: No Non-prescribed substance use: denies use Previous occupational history: retired Known occupational exposures/hazards: No Highest level of school completed/degree received: high school graduate Do you want help with school or training: No Are you now , , , , never or living with a partner: In a typical week, how many times do you talk on the telephone with family, friends, or neighbors: 3 or more times per week How often do you get together with friends or relatives: once per week How often do you attend gnosticism or mormonism services: 4 or more times per year Do you belong to any clubs or organizations such as gnosticism groups unions, fraternal or athletic groups, or school groups: yes Total score: 4 Score interpretation: A score of greater than or equal to 2 indicates the lowest level of social isolation. Little interest or pleasure in doing things: not at all Feeling down, depressed, or hopeless: not at all Feel stressed/tense/nervous/anxious/difficulty sleeping: not at all Due to disability, difficulty making decisions: No Meds Home Medications and Allergies Home Medications ?Medication ?Instructions ?Recorded ?Confirmed ?Type allopurinol 300 mg tablet 300 mg PO .once daily 04/03/23 04/03/25 History aspirin 81 mg tablet,delayed 81 mg PO DAILY 04/03/23 04/03/25 History release atorvastatin 40 mg tablet 40 mg PO DAILY 04/03/23 04/03/25 History doxycycline hyclate 100 mg capsule 100 mg PO BID 04/03/23 04/03/25 History furosemide 20 mg tablet 20 mg PO DAILY 04/03/23 04/03/25 History sacubitril 24 mg-valsartan 26 mg 0.5 tab PO BID 04/03/23 04/04/25 History tablet (Entresto) alprazolam 0.5 mg tablet 0.25 mg PO BEDTIME 04/03/25 04/03/25 History cetirizine 10 mg tablet 10 mg PO DAILY 04/03/25 04/03/25 History glipizide 2.5 mg tablet, extended 2.5 mg PO DAILY 04/03/25 04/03/25 History release 24 hr ipratropium 0.5 mg-albuterol 3 mg 3 ml inhalation Q8H 04/03/25 04/03/25 History (2.5 mg base)/3 mL nebulization soln ipratropium bromide 21 mcg (0.03 2 spray intranasal BID 04/03/25 04/03/25 History %) nasal spray metoprolol succinate 25 mg 25 mg PO DAILY 04/03/25 04/03/25 History tablet,extended release 24 hr midodrine 10 mg tablet 10 mg PO TIDWM 04/03/25 04/04/25 History pantoprazole 40 mg tablet,delayed 40 mg PO DAILY 04/03/25 04/03/25 History release tamsulosin 0.4 mg capsule 0.8 mg PO DAILY 04/03/25 04/03/25 History trazodone 50 mg tablet 50 mg PO BEDTIME 04/03/25 04/03/25 History albuterol sulfate 2.5 mg/3 mL 2.5 mg inhalation Q4H PRN 04/04/25 04/04/25 History (0.083 %) solution for nebulization shortness of breath or wheezing citalopram 20 mg tablet 20 mg PO DAILY 04/04/25 04/04/25 History Allergies Allergy/AdvReac Type Severity Reaction Status Date / Time acetaminophen (From Vicodin) Allergy Mild Hives Verified 04/03/25 21:52 oseltamivir (From Tamiflu) Allergy Mild SOB Verified 04/03/25 21:52 oxycodone Allergy Mild Hives Verified 04/03/25 21:52 Cephalosporins Allergy SOB Verified 04/03/25 21:52 ciprofloxacin (From Cipro) Allergy Hives Verified 04/03/25 21:52 hydrocodone (From Vicodin) Allergy Hives Verified 04/03/25 21:52 levofloxacin Allergy Hives Verified 04/03/25 21:52 Penicillins Allergy Hives Verified 04/03/25 21:52 sitagliptin (From Januvia) Allergy SOB Verified 04/03/25 21:52 loracarbef (From Lorabid) AdvReac Intermediate Rash Verified 04/03/25 21:52 Exam Narrative Exam Narrative: Constitutional: In no respiratory distress ENT: Wearing nasal cannula. No candidiasis Neck: Supple Chest: Thoracic kyphosis Lungs: Diminished breath sounds, less air movement on the right. Rhonchi, some of which clear with alvarenga cough. Expiratory wheezes. CV: Mild tachycardia, regular rhythm Abdomen: Soft Extremities: 1+ BLE edema. Neuro: No fasciculations Psych: Appropriate affect Constitutional Vital Signs, click to edit/add: Last Vital Signs Temp 97.7 F 04/05/25 08:00 Pulse 85 04/05/25 08:00 Resp 20 04/05/25 08:00 BP 107/65 04/05/25 08:00 Pulse Ox 91 L 04/05/25 08:00 O2 Del Method Nasal Cannula 04/05/25 08:00 O2 Flow Rate 2 04/05/25 08:00 FiO2 2 04/04/25 04:06 Results Laboratory Findings Abnormal lab findings: Abnormal Labs 04/03/25 04/04/25 04/04/25 22:45 05:57 11:42 Hgb 13.4 L MCHC 29.8 L RDW 22.0 H 22.0 H Plt Count 145 L Neut % (Auto) 77.0 H 78.7 H Lymph % (Auto) 10.7 L 10.4 L Eos % (Auto) Baso % (Auto) Neut # (Auto) Lymph # (Auto) 0.7 L 0.8 L [place] # (Auto) Abs Immat Gran (auto) 0.06 H Imm/Tot Granulo (auto) 0.9 H Carbon Dioxide 37.5 H 32.5 H BUN Creatinine 0.55 L 0.41 L Glucose 160 H 136 H Magnesium 1.7 L AST C-Reactive Protein 1.57 H Albumin POC Glucose 128 H 04/04/25 04/04/25 04/05/25 16:11 21:19 05:56 Hgb 13.5 L MCHC RDW 22.1 H Plt Count Neut % (Auto) 84.6 H Lymph % (Auto) 12.5 L Eos % (Auto) 0.0 L Baso % (Auto) 0.1 L Neut # (Auto) 6.7 H Lymph # (Auto) 1.0 L [place] # (Auto) 0.2 L Abs Immat Gran (auto) 0.04 H Imm/Tot Granulo (auto) Carbon Dioxide 37.2 H BUN 29.0 H Creatinine 0.53 L Glucose 191 H Magnesium AST 43 H C-Reactive Protein Albumin 3.0 L POC Glucose 288 H 221 H Assessment and Plan Assessment and Plan (1) Pneumonia: Assessment and Plan: 1. Pneumonia. Working diagnosis. Suspect primary viral, cannot R/O secondary bacterial. Given his severe pulmonary disease, err to overtreat opposed to undertreat. He is clinically responding to the current therapy. Continue it for now. 2. Acute exacerbation of COPD. Has underlying mucopurulent bronchitis, compounded by underlying restrictive lung disease. Continue bronchodilators, steroids. 3. Chronic hypercapnic respiratory failure. Currently on BiPAP used as a NIV. Concerned that BiPAP may not be sufficient enough and he may still be hypercapnic. Was to have outpatient ABG - will order inpatient ABG on RA to assess. If pCO2 >55 despite using BiPAP, it will be deemed a failure and he will need more advanced NIV such as AVAPS-AE. 4. Restrictive lung disease. Secondary to multiple issues including fasciohumeroscapular dystrophy, paralyzed right hemidiaphragm, and thoracic kyphosis. Patient is on a pulmonary toilet which should continue here, including PEP and vest. Hypertonic saline (3%) and Mucomyst were added - though even if they loose secretions, he may not have enough strength to expectorate. 5. Chronic hypoxic respiratory failure. Goal SpO2 88-92% to avoid hyperoxic-induced hypercapnia. 6. Acute on chronic systolic CHF. Continue with diuresis. Qualifiers: Pneumonia type: due to unspecified organism Laterality: unspecified laterality Lung location: unspecified part of lung Qualified Code(s): J18.9 - Pneumonia, unspecified organism
[2025-04-05 12:52] LABS: pH ABG 7.404 (7.350-7.450)
[2025-04-05 12:53] LABS: Allen Test POSITIVE (POSITIVE); Base Excess ABG 9.2 mmol/L (-2.0-2.0); HCO3 ABG 33.9 mmol/L (22.0-26.0); O2 Mode ROOM AIR; Oxygen Saturation ABG 80.5 %; Puncture Site L RAD
[2025-04-05 12:54] LABS: ABG PCO2 54.4 mmHg (35.0-45.0)
[2025-04-05 12:55] LABS: PO2 ABG 46.1 mmHg (80.0-100.0)
[2025-04-05] MEDS: ACETAMINOPHEN 500 MG TABLET 1000 MG PO (15:57)
[2025-04-05] MEDS: INSULIN ASPART 300 UNIT/3 ML PEN SUBQ ×2 (16:35→21:50)
[2025-04-05 16:40] LABS: Glucometer 247 mg/dL (74-106)
[2025-04-05 19:51] LABS: Glucometer 209 mg/dL (74-106)
[2025-04-05] MEDS: TRAZODONE HCL 50 MG TABLET PO (21:47)
[2025-04-05] MEDS: ALPRAZOLAM 0.25 MG TABLET PO (21:48)
[2025-04-05] MEDS: AZITHROMYCIN 500 MG in 0.9 % SODIUM CHLORIDE 250 ML 250 MG IV (23:07)
[2025-04-06] VITALS (9 sets, daily range): BP systolic 109–129; BP diastolic 68–78; PULSE 60–98; TEMP 36.4–37; O2SAT 90–95
[2025-04-06] MEDS: METHYLPREDNISOLONE SOD SUCC PF 125 MG/2 ML VIAL 60 MG IVP ×3 (01:31→21:30)
[2025-04-06] MEDS: IPRATROPIUM BROMIDE 0.5 MG/2.5 ML VIAL.NEB IH ×4 (05:11→23:34)
[2025-04-06] MEDS: LEVALBUTEROL HCL 0.63 MG/3 ML VIAL.NEB IH ×4 (05:11→23:34)
[2025-04-06] MEDS: SODIUM CHLORIDE 3% INHALATION 15 ML NEB 3 ML IH ×2 (05:11→17:28)
[2025-04-06] MEDS: AZTREONAM 2,000 MG in 0.9 % SODIUM CHLORIDE 100 ML 100 MG IV ×3 (05:42→20:49)
[2025-04-06] MEDS: BENZONATATE 100 MG CAPSULE 200 MG PO ×3 (05:42→21:30)
[2025-04-06 05:54] LABS: Hematocrit 45.3 % (42.0-54.0); Hemoglobin 13.8 g/dL (14.0-18.0); Immature Granulocytes Abs Auto 0.05 10^3/uL (0.00-0.03); Immature Granulocytes Pct Auto 0.6 % (0.0-0.5); Lymphocytes Absolute Auto 0.9 10^3/uL (1.2-3.8); Lymphocytes Percent Auto 10.5 % (20.5-60.0); Mean Corpuscular HGB Conc 30.5 g/dL (29.9-35.2); Mean Corpuscular Hemoglobin 27.3 pg (25.9-34.0); Mean Corpuscular Volume 89.5 fL (80.0-94.0); Mean Platelet Volume 9.9 fL (9.5-13.5); Monocytes Absolute Auto 0.2 10^3/uL (0.3-0.8); Monocytes Percent Auto 2.3 % (1.7-12.0); Neutrophils Absolute Auto 7.7 10^3/uL (1.4-6.5); Neutrophils Percent Auto 86.6 % (43.0-75.0); Platelet Count 145 10^3/uL (150-450); Red Blood Count 5.06 10^6/uL (4.70-6.10); Red Cell Distribution Width 22.3 % (11.0-15.0); White Blood Count 8.9 10^3/uL (4.0-11.0)
[2025-04-06 06:15] LABS: Alanine Aminotransferase 31 U/L (16-63); Albumin Globulin Ratio 0.8; Alkaline Phosphatase 88 U/L (46-116); Anion Gap 10.7; Aspartate Amino Transferase 25 U/L (15-37); BUN Creatinine Ratio 80.9; Bilirubin Total 0.5 mg/dL (0.2-1.0); Calcium 8.7 mg/dL (8.5-10.1); Chloride 101 mmol/L (98-107); Estimated GFR (African America >60 (>=60 mL/min/1.73m^2); Estimated GFR (Non-African Ame >60 (>=60 mL/min/1.73m^2); Globulin 3.6 g/dL; Glucose 172 mg/dL (74-106); Potassium 3.7 mmol/L (3.5-5.1); Sodium 142 mmol/L (136-145); Total Protein 6.6 g/dL (6.4-8.2)
--- NOTE | 2025-04-06 07:20 | P.PN_ITS ---
Progress Note: Subjective Subjective Interval history: He appears much improved from previous day again, still with dyspnea with any activity though Exam Constitutional Vital Signs, click to edit/add: Last Vital Signs Temp 97.5 F L 04/06/25 03:06 Pulse 72 04/06/25 05:11 Resp 20 04/06/25 05:11 BP 109/68 04/06/25 03:06 Pulse Ox 92 L 04/06/25 05:11 O2 Del Method Nasal Cannula 04/06/25 05:11 O2 Flow Rate 2 04/06/25 05:11 FiO2 2 04/04/25 04:06 Documenting provider has reviewed patient's vital signs: yes Common normals: apparent distress (Much improved with just mild conversational dyspnea) Chest Common normals: inspection of chest normal Respiratory Common normals: abnormal respiratory effort (Minimal conversational dyspnea improved) Auscultation: rhonchi, wheezes and diminished lung sounds (Somewhat better air exchange today) Cardio Common normals: regular rate and regular rhythm GI Common normals: negative for Normal to inspection, nondistended, normoactive bowel sounds present (Obese) Progress Note: Objective Labs Labs: Short CBC 04/06/25 Range/Units 05:42 WBC 8.9 (4.0-11.0) 10^3/uL Hgb 13.8 L (14.0-18.0) g/dL Hct 45.3 (42.0-54.0) % Plt Count 145 L (150-450) 10^3/uL BMP 04/06/25 05:42 Sodium 142 Potassium 3.7 Chloride 101 Carbon Dioxide 34.0 H BUN 38.0 H Creatinine 0.47 L Glucose 172 H Calcium 8.7 Liver Function 04/06/25 Range/Units 05:42 Total Bilirubin 0.5 (0.2-1.0) mg/dL AST 25 (15-37) U/L ALT 31 (16-63) U/L Alkaline Phosphatase 88 (46-116) U/L Albumin 3.0 L (3.4-5.0) g/dL Progress Note: A&P Assessment and Plan (1) Muscular dystrophy: (2) Left lower lobe pneumonia: (3) Acute dyspnea: (4) CHF (congestive heart failure): (5) Diaphragm dysfunction: (6) Diabetes: (7) Sleep apnea: (8) Chronic hypoxic respiratory failure: (9) Aortic stenosis: (10) Thrombocytopenia: (11) Fluid overload: (12) Hypomagnesemia: Plan Admission findings: Sinus tachycardia, relative hypoxia with O2 sat of 91% on his 2 L, normally upper 90s, white blood cell count normal but with left shift consistent with a bacterial process, chest x-ray clear but exam consistent with bilateral pneumonia Bilateral pneumonia causing acute exacerbation of chronic hypoxic respiratory failure, acute hypoxia with O2 sat of only 91% on his 2 L complicated by his diaphragm paralysis-continue current treatment plan is overall he is improving, repeat chest x-ray in a.m., clinically still with bilateral pneumonia Thrombocytopenia-Down somewhat today Hypomagnesemia-stable after supplementation 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 Inpatient status ?
[2025-04-06] MEDS: glipiZIDE 2.5 MG TAB.ER.24 PO (08:13)
[2025-04-06] MEDS: CETIRIZINE HCL 10 MG TABLET PO (08:13)
[2025-04-06] MEDS: CITALOPRAM HYDROBROMIDE 20 MG TABLET PO (08:13)
[2025-04-06] MEDS: ASPIRIN 81 MG TABLET.DR PO (08:13)
[2025-04-06] MEDS: SACUBITRIL/VALSARTAN 24 MG-26 MG TABLET 1 TAB PO ×2 (08:13→21:29)
[2025-04-06] MEDS: METOPROLOL SUCCINATE 25 MG TAB.ER.24H PO (08:14)
[2025-04-06] MEDS: FUROSEMIDE 20 MG TABLET PO (08:14)
[2025-04-06] MEDS: GUAIFENESIN 600 MG TAB.ER.12H 1200 MG PO ×2 (08:14→21:30)
[2025-04-06] MEDS: MIDODRINE HCL 5 MG TABLET 10 MG PO ×2 (08:14→12:00)
[2025-04-06] MEDS: PANTOPRAZOLE SODIUM 40 MG TABLET.DR PO (08:14)
[2025-04-06] MEDS: ALLOPURINOL 300 MG TABLET PO (08:14)
[2025-04-06] MEDS: TAMSULOSIN HCL 0.4 MG CAPSULE 0.8 MG PO (08:14)
[2025-04-06] MEDS: MAGNESIUM OXIDE 400 MG TABLET PO ×2 (08:14→21:30)
[2025-04-06] MEDS: ATORVASTATIN CALCIUM 40 MG TABLET PO (08:14)
[2025-04-06] MEDS: ENOXAPARIN SODIUM 40 MG/0.4 ML SYRINGE SUBQ (08:14)
[2025-04-06] MEDS: ACETYLCYSTEINE 400 MG/4 ML VIAL 200 MG IH ×2 (10:36→23:34)
[2025-04-06] MEDS: BENZOCAINE/MENTHOL 1 LOZENGE BOX PO (11:59)
[2025-04-06] MEDS: INSULIN ASPART 300 UNIT/3 ML PEN SUBQ ×2 (12:00→21:31)
[2025-04-06 12:18] LABS: Glucometer 214 mg/dL (74-106)
[2025-04-06 17:47] LABS: Glucometer 171 mg/dL (74-106)
[2025-04-06 19:45] LABS: Glucometer 235 mg/dL (74-106)
[2025-04-06] MEDS: ACETAMINOPHEN 500 MG TABLET 1000 MG PO (19:57)
[2025-04-06] MEDS: AZITHROMYCIN 500 MG in 0.9 % SODIUM CHLORIDE 250 ML 250 MG IV (23:34)
[2025-04-06] MEDS: ALPRAZOLAM 0.25 MG TABLET PO (23:34)
[2025-04-06] MEDS: TRAZODONE HCL 50 MG TABLET PO (23:34)
[2025-04-07] VITALS (10 sets, daily range): BP systolic 106–125; BP diastolic 64–79; PULSE 57–85; TEMP 36.4–36.8; O2SAT 90–97
[2025-04-07] MEDS: AZTREONAM 2,000 MG in 0.9 % SODIUM CHLORIDE 100 ML 100 MG IV ×3 (04:47→21:20)
[2025-04-07] MEDS: SODIUM CHLORIDE 3% INHALATION 15 ML NEB 3 ML IH ×2 (04:54→16:43)
[2025-04-07] MEDS: IPRATROPIUM BROMIDE 0.5 MG/2.5 ML VIAL.NEB IH ×4 (04:54→23:12)
[2025-04-07] MEDS: LEVALBUTEROL HCL 0.63 MG/3 ML VIAL.NEB IH ×4 (04:54→23:12)
[2025-04-07] MEDS: BENZONATATE 100 MG CAPSULE 200 MG PO ×3 (05:00→21:36)
--- NOTE | 2025-04-07 06:00 | XR_ITS ---
The [address] [address] Patient Name: EVGENY DELGADO MRN: [id number] date: 1955 Sex: M Assigned Patient Location: [place] Current Patient Location: [place] Accession/Order Number: [id number] Exam Date: 04/07/2025 11:25 Report Date: 04/07/2025 11:32 At the request of: MAIK ORANTES MD Procedure: XR chest 2V AP ERECT AND LATERAL CHEST: CLINICAL HISTORY: Follow-up pneumonia COMPARISON: 04/04/[address] 02/10/2025 There is continued elevation of the right hemidiaphragm. There is no developing consolidation, effusion or pneumothorax. The cardiac, hilar and mediastinal silhouettes are stable. There is no vascular congestion. The visualized bony structures are osteopenic. A similar midthoracic compression deformity is seen. There is also minor degenerative change. XR/XR chest 2V IMPRESSION: NO ACUTE CARDIOPULMONARY ABNORMALITY. Impression dictated by: Lisa Anderson M.D. 04/07/2025 11:32 AM Dictation Location: [place] [address] Electronically authenticated by: [id number] Y Date: 04/07/2025 11:32
--- NOTE | 2025-04-07 07:43 | P.PN_ITS ---
Progress Note: Subjective Subjective Interval history: He appears much improved from previous day again, still with dyspnea with any activity though Exam Constitutional Vital Signs, click to edit/add: Last Vital Signs Temp 97.6 F 04/07/25 04:46 Pulse 77 04/07/25 04:54 Resp 20 04/07/25 04:54 BP 115/66 04/07/25 04:46 Pulse Ox 95 04/07/25 04:54 O2 Del Method Nasal Cannula 04/07/25 04:54 O2 Flow Rate 2 04/07/25 04:54 FiO2 2 04/04/25 04:06 Progress Note: A&P Assessment and Plan (1) Muscular dystrophy: (2) Left lower lobe pneumonia: (3) Acute dyspnea: (4) CHF (congestive heart failure): (5) Diaphragm dysfunction: (6) Diabetes: (7) Sleep apnea: (8) Chronic hypoxic respiratory failure: (9) Aortic stenosis: (10) Thrombocytopenia: (11) Fluid overload: (12) Hypomagnesemia: Plan Admission findings: Sinus tachycardia, relative hypoxia with O2 sat of 91% on his 2 L, normally upper 90s, white blood cell count normal but with left shift consistent with a bacterial process, chest x-ray clear but exam consistent with bilateral pneumonia Bilateral pneumonia causing acute exacerbation of chronic hypoxic respiratory failure, acute hypoxia with O2 sat of only 91% on his 2 L complicated by his diaphragm paralysis-continue current treatment plan is overall he is improving, repeat chest x-ray in a.m., clinically still with bilateral pneumonia Thrombocytopenia-Down somewhat today Hypomagnesemia-stable after supplementation 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 Inpatient status ?
[2025-04-07 07:59] LABS: Glucometer 228 mg/dL (74-106)
[2025-04-07 07:59] LABS: Basophils Percent Auto 0.1 % (0.2-2.0); Hemoglobin 14.5 g/dL (14.0-18.0); Immature Granulocytes Abs Auto 0.03 10^3/uL (0.00-0.03); Immature Granulocytes Pct Auto 0.4 % (0.0-0.5); Lymphocytes Absolute Auto 0.7 10^3/uL (1.2-3.8); Lymphocytes Percent Auto 10.2 % (20.5-60.0); Mean Corpuscular HGB Conc 30.9 g/dL (29.9-35.2); Mean Corpuscular Hemoglobin 27.7 pg (25.9-34.0); Mean Corpuscular Volume 89.9 fL (80.0-94.0); Monocytes Absolute Auto 0.3 10^3/uL (0.3-0.8); Monocytes Percent Auto 3.6 % (1.7-12.0); Neutrophils Absolute Auto 5.9 10^3/uL (1.4-6.5); Neutrophils Percent Auto 85.7 % (43.0-75.0); Platelet Count 145 10^3/uL (150-450); Red Blood Count 5.23 10^6/uL (4.70-6.10); Red Cell Distribution Width 21.9 % (11.0-15.0); White Blood Count 6.9 10^3/uL (4.0-11.0)
--- NOTE | 2025-04-07 08:22 | P.PN_ITS ---
Progress Note: Subjective Subjective Interval history: Improved breathing less cough this morning Exam Constitutional Vital Signs, click to edit/add: Last Vital Signs Temp 97.6 F 04/07/25 04:46 Pulse 77 04/07/25 04:54 Resp 20 04/07/25 04:54 BP 115/66 04/07/25 04:46 Pulse Ox 95 04/07/25 04:54 O2 Del Method Nasal Cannula 04/07/25 04:54 O2 Flow Rate 2 04/07/25 04:54 FiO2 2 04/04/25 04:06 Documenting provider has reviewed patient's vital signs: yes Common normals: no apparent distress (Conversational dyspnea essentially resolved) Chest Common normals: inspection of chest normal Respiratory Common normals: abnormal respiratory effort (Minimal conversational dyspnea improved) Auscultation: rhonchi (More pronounced this morning but better air exchange), wheezes and diminished lung sounds (Much better air exchange today) Cardio Common normals: regular rate and regular rhythm GI Common normals: negative for Normal to inspection, nondistended, normoactive bowel sounds present (Obese) Progress Note: Objective Labs Labs: Short CBC 04/07/25 Range/Units 07:52 WBC 6.9 (4.0-11.0) 10^3/uL Hgb 14.5 (14.0-18.0) g/dL Hct 47.0 (42.0-54.0) % Plt Count 145 L (150-450) 10^3/uL Progress Note: A&P Assessment and Plan (1) Muscular dystrophy: (2) Left lower lobe pneumonia: (3) Acute dyspnea: (4) CHF (congestive heart failure): (5) Diaphragm dysfunction: (6) Diabetes: (7) Sleep apnea: (8) Chronic hypoxic respiratory failure: (9) Aortic stenosis: (10) Thrombocytopenia: (11) Fluid overload: (12) Hypomagnesemia: Plan Admission findings: Sinus tachycardia, relative hypoxia with O2 sat of 91% on his 2 L, normally upper 90s, white blood cell count normal but with left shift consistent with a bacterial process, chest x-ray clear but exam consistent with bilateral pneumonia Bilateral pneumonia causing acute exacerbation of chronic hypoxic respiratory failure, acute hypoxia with O2 sat of only 91% on his 2 L complicated by his diaphragm paralysis-6 pending, appears to finally turned the corner today, maintain current treatment plan but will wean steroids today, if improved tomorrow he can be discharged to home Thrombocytopenia-stable Hypomagnesemia-stable after supplementation Chronic combined congestive heart failure with fluid overload -repeating labs today Diabetes mellitus-insulin sliding scale, maintain Sleep apnea-can use home machine Admission status: Patient with a history of failed treatments for pneumonia, increasing hypoxic, moderate respiratory distress, medically necessary treatment will span 2 midnights. Inpatient status ?
[2025-04-07 08:30] LABS: Anion Gap 9.4; BUN Creatinine Ratio 63.5; Calcium 8.5 mg/dL (8.5-10.1); Carbon Dioxide 34.5 mmol/L (21.0-32.0); Chloride 104 mmol/L (98-107); Estimated GFR (African America >60 (>=60 mL/min/1.73m^2); Estimated GFR (Non-African Ame >60 (>=60 mL/min/1.73m^2); Glucose 201 mg/dL (74-106); Magnesium 2.1 mg/dL (1.8-2.4); Potassium 3.9 mmol/L (3.5-5.1); Sodium 144 mmol/L (136-145); Troponin I High Sensitivity 6.6 pg/mL (4.0-76.1)
[2025-04-07] MEDS: MIDODRINE HCL 5 MG TABLET 10 MG PO ×3 (08:30→16:55)
[2025-04-07] MEDS: ENOXAPARIN SODIUM 40 MG/0.4 ML SYRINGE SUBQ (08:30)
[2025-04-07] MEDS: TAMSULOSIN HCL 0.4 MG CAPSULE 0.8 MG PO (08:30)
[2025-04-07] MEDS: ALLOPURINOL 300 MG TABLET PO (08:30)
[2025-04-07] MEDS: GUAIFENESIN 600 MG TAB.ER.12H 1200 MG PO ×2 (08:30→21:36)
[2025-04-07] MEDS: PREDNISONE 20 MG TABLET 40 MG PO (08:30)
[2025-04-07] MEDS: CITALOPRAM HYDROBROMIDE 20 MG TABLET PO (08:30)
[2025-04-07] MEDS: METOPROLOL SUCCINATE 25 MG TAB.ER.24H PO (08:30)
[2025-04-07] MEDS: SACUBITRIL/VALSARTAN 24 MG-26 MG TABLET 1 TAB PO ×2 (08:30→21:36)
[2025-04-07] MEDS: FUROSEMIDE 20 MG TABLET PO (08:31)
[2025-04-07] MEDS: ATORVASTATIN CALCIUM 40 MG TABLET PO (08:31)
[2025-04-07] MEDS: CETIRIZINE HCL 10 MG TABLET PO (08:31)
[2025-04-07] MEDS: PANTOPRAZOLE SODIUM 40 MG TABLET.DR PO (08:31)
[2025-04-07] MEDS: MAGNESIUM OXIDE 400 MG TABLET PO ×2 (08:31→21:37)
[2025-04-07] MEDS: glipiZIDE 2.5 MG TAB.ER.24 PO (08:31)
[2025-04-07] MEDS: ASPIRIN 81 MG TABLET.DR PO (08:31)
[2025-04-07] MEDS: INSULIN ASPART 300 UNIT/3 ML PEN SUBQ ×4 (08:32→22:34)
--- NOTE | 2025-04-07 08:56 | P.PLPN_ITS ---
Progress Note: A&P Assessment and Plan (1) Pneumonia: Assessment and Plan: 1. Pneumonia. No identified agent. Clinically improving. 2. Acute exacerbation of COPD. More air movement today with resolution of wheezes. Having tremors with Xopenex but not with DuoNeb at home - suspect associated with nebulizer administration/technique - it is administered over a longer period of time inpatient, which then allows more absorption which leads to increased side effects. They are tolerable, so I would recommend continuing with current treatment rather than cutting to half-dose Xopenex unless the side effects become intollerable. He denies issues at home with DuoNeb, so I do not feel there is a compelling reason to change to Xopenex + Atrovent at home. 3. Chronic hypercapnic respiratory failure. ABG 04/05/2025 noted pCO2 54.4 . . . . . unable to round up to 55 which is the cutoff. BiPAP appears to be sufficient for him for now. Can recheck ABG again in the future outpatient. 4. Restrictive lung disease. Secondary to multiple issues including fasciohumeroscapular dystrophy, paralyzed right hemidiaphragm, and thoracic kyphosis. More air movement today - continue aggressive pulmonary toilet. No changes today - continue current plan. 5. Chronic hypoxic respiratory failure. Goal SpO2 88-92% to avoid hyperoxic- induced hypercapnia. 6. Acute on chronic systolic CHF. Qualifiers: Laterality: unspecified laterality Lung location: unspecified part of lung Pneumonia type: due to unspecified organism Qualified Code(s): J18.9 - Pneumonia, unspecified organism Subjective Subjective Interval history: He feels better overall, but still complains of PELLETIER. Cough more productive now. Denies fevers, chills, sweats. Admits to tremors from Xopenex - he does not get them at home with DuoNeb. Reviewed with him ABG results from 04/05/2025. Exam Narrative Exam Narrative: Constitutional: In no respiratory distress. Sitting up in chair ENT: Wearing nasal cannula. Upper dentures. No candidiasis. Neck: Supple Chest: Thoracic kyphosis Lungs: More air movement today, wheezes have resolved. Diminished right base. Diffuse rhonchi. CV: RRR Abdomen: Soft Extremities: Resolving BLE edema. Neuro: No fasciculations Psych: Appropriate affect Constitutional Vital Signs, click to edit/add: Last Vital Signs Temp 97.6 F 04/07/25 04:46 Pulse 77 04/07/25 04:54 Resp 20 04/07/25 04:54 BP 115/66 04/07/25 04:46 Pulse Ox 95 04/07/25 04:54 O2 Del Method Nasal Cannula 04/07/25 04:54 O2 Flow Rate 2 04/07/25 04:54 FiO2 2 04/04/25 04:06
--- NOTE | 2025-04-07 09:28 | SWNOTE1 ---
I met with pt in room to discuss PT/OT recommendation snf or home health. Pt voiced he would not like to go to a nursing facility or have home health come in. Pt also voiced he would be interested in outpatient therapy if he felt like he needed it. I advised pt if he goes home and feels like he needs home health or outpatient therapy that his PCP would be able to set that up. Pt voiced understanding. Pt also voiced he was trying to get set up with pulmonary rehab. SW will check with case management about pulmonary rehab services.
--- NOTE | 2025-04-07 10:03 | REH.PTDLY ---
Physical Therapy Daily Note PT Daily Note/Assess Start: 04/05/25 09:20 Freq: Status: Active Protocol: Document 04/07/25 09:57 KSTEINLE (Rec: 04/07/25 10:03 KSTEINLE No Response) Physical Therapy Daily Note/Assessment Time In 09:25 Time Out 09:45 Subjective Pt just finishing eating breakfast. Willing to work with therapy. Still feel like he has a sore throat. Denies pain elsewhere. Therapeutic Exercise 5 Minutes (minutes) Therapeutic Exercise 0 Units Therapeutic Exercise Instructed in B LE seated exs 15x ea for improved Treatment mobility and strength. Pt performed marching, hip abd step outs and LAQ. Pt reports he performs these often at home and also performs exs in recliner with legs elevated. Therapeutic Activity 12 Minutes (minutes) Therapeutic Activity 1 Units Therapeutic Activity SpO2 at 93% prior to gait training. Pt needs assistance Comments to don and doff socks and AFOs today. Requires Min A with sit to stand transfers out of chair. Pt reports his chair at home is higher than this. Gait training with pt's personal 4 WW CGA for 70 feet with 2 L of O2. Pt needs standing rest break to focus on breathing and then ambulates another 70 feet. Cues when returning to chair to reach back for safety. SpO2 at 89% and then rises to 92% within 2 mins. Total Therapy 17 Minutes Total Physical 1 Therapy Units Daily Note Summary Progressed gait distance today with fair tolerance, pt needs a standing rest break with cues for deep breathing. Longest distance pt has ambulated since being in hospital. Pt fatigued post rx.
[2025-04-07 11:07] LABS: Glucometer 245 mg/dL (74-106)
[2025-04-07] MEDS: ACETYLCYSTEINE 400 MG/4 ML VIAL 200 MG IH ×2 (11:09→23:13)
[2025-04-07] MEDS: 0.9 % SODIUM CHLORIDE 250 ML 10 ML IV (11:54)
--- NOTE | 2025-04-07 13:16 | CM.NOTE ---
Discussed with pt about Muscular dystrophy and underlying lung issues. Pt does see skill training program coordinator (Lynnette), pt plan is to continue to follow Dr. Church. Pt already has discussed with Dr. Church pulmonary rehab, pt is in the process with setting this up as outpatient. Pt denies any questions or concerns.
[2025-04-07 15:40] LABS: Glucometer 270 mg/dL (74-106)
[2025-04-07] MEDS: FLUCONAZOLE 100 MG TABLET PO (16:56)
[2025-04-07 18:34] LABS: Glucometer 199 mg/dL (74-106)
[2025-04-07 21:44] LABS: Glucometer 176 mg/dL (74-106)
[2025-04-07] MEDS: ACETAMINOPHEN 500 MG TABLET 1000 MG PO (22:36)
[2025-04-07] MEDS: BENZOCAINE/MENTHOL 1 LOZENGE BOX PO (22:37)
[2025-04-07] MEDS: ALPRAZOLAM 0.25 MG TABLET PO (23:26)
[2025-04-07] MEDS: TRAZODONE HCL 50 MG TABLET PO (23:26)
[2025-04-07] MEDS: AZITHROMYCIN 500 MG in 0.9 % SODIUM CHLORIDE 250 ML 250 MG IV (23:26)
[2025-04-08] VITALS: BP 109/69; PULSE 75; TEMP 36.2; O2SAT 94
[2025-04-08 00:37] VITALS: O2SAT 92
[2025-04-08 04:00] VITALS: BP 117/72; PULSE 54; TEMP 36.3; O2SAT 93
[2025-04-08] MEDS: AZTREONAM 2,000 MG in 0.9 % SODIUM CHLORIDE 100 ML 100 MG IV ×2 (04:34→12:13)
[2025-04-08 05:12] VITALS: PULSE 54; O2SAT 95
[2025-04-08] MEDS: SODIUM CHLORIDE 3% INHALATION 15 ML NEB 3 ML IH (05:12)
[2025-04-08] MEDS: LEVALBUTEROL HCL 0.63 MG/3 ML VIAL.NEB IH ×2 (05:12→11:14)
[2025-04-08] MEDS: IPRATROPIUM BROMIDE 0.5 MG/2.5 ML VIAL.NEB IH ×2 (05:12→11:14)
[2025-04-08] MEDS: BENZONATATE 100 MG CAPSULE 200 MG PO ×2 (05:38→13:56)
[2025-04-08 06:26] LABS: Basophils Percent Auto 0.1 % (0.2-2.0); Eosinophils Percent Auto 0.3 % (0.9-7.0); Hematocrit 44.8 % (42.0-54.0); Hemoglobin 13.9 g/dL (14.0-18.0); Immature Granulocytes Abs Auto 0.07 10^3/uL (0.00-0.03); Lymphocytes Absolute Auto 1.6 10^3/uL (1.2-3.8); Lymphocytes Percent Auto 23.2 % (20.5-60.0); Mean Corpuscular Hemoglobin 27.9 pg (25.9-34.0); Mean Platelet Volume 10.2 fL (9.5-13.5); Monocytes Absolute Auto 0.6 10^3/uL (0.3-0.8); Monocytes Percent Auto 9.1 % (1.7-12.0); Neutrophils Absolute Auto 4.6 10^3/uL (1.4-6.5); Neutrophils Percent Auto 66.3 % (43.0-75.0); Platelet Count 141 10^3/uL (150-450); Red Blood Count 4.98 10^6/uL (4.70-6.10); Red Cell Distribution Width 21.7 % (11.0-15.0); White Blood Count 6.9 10^3/uL (4.0-11.0)
[2025-04-08 06:40] LABS: Anion Gap 6.2; BUN Creatinine Ratio 44.8; Calcium 8.4 mg/dL (8.5-10.1); Carbon Dioxide 35.5 mmol/L (21.0-32.0); Chloride 103 mmol/L (98-107); Estimated GFR (African America >60 (>=60 mL/min/1.73m^2); Estimated GFR (Non-African Ame >60 (>=60 mL/min/1.73m^2); Glucose 126 mg/dL (74-106); Potassium 3.7 mmol/L (3.5-5.1); Sodium 141 mmol/L (136-145)
--- NOTE | 2025-04-08 07:29 | P.DS_ITS ---
DS: Providers Provider Date of admission: 04/04/25 07:46 Primary care physician: Lucien Winkler MD Consults: 04/04/25 06:48 Consult to Pharmacy Routine Consulting Provider: Reason for consultation: Please Hibbs me when Med Rec is Updated Has provider been notified: No Occupational Therapy Eval and Treat Routine Reason for consultation: Only if needed for Rehab Has provider been notified: No Physical Therapy Eval and Treat Routine Reason for consultation: Eval and Treat Has provider been notified: No DS: Diagnosis Discharge Diagnosis (1) Pneumonia: Qualifiers: Laterality: unspecified laterality Lung location: unspecified part of lung Pneumonia type: due to unspecified organism Qualified Code(s): J18.9 - Pneumonia, unspecified organism Plan Admission findings: Sinus tachycardia, relative hypoxia with O2 sat of 91% on his 2 L, normally upper 90s, white blood cell count normal but with left shift consistent with a bacterial process, chest x-ray clear but exam consistent with bilateral pneumonia Bilateral pneumonia causing acute exacerbation of chronic hypoxic respiratory failure, acute hypoxia with O2 sat of only 91% on his 2 L complicated by his diaphragm paralysis-6 pending, appears to finally turned the corner today, maintain current treatment plan but will wean steroids today, if improved tomorrow he can be discharged to home Thrombocytopenia-stable Hypomagnesemia-stable after supplementation Chronic combined congestive heart failure with fluid overload -repeating labs today Diabetes mellitus-insulin sliding scale, maintain Sleep apnea-can use home machine Admission status: Patient with a history of failed treatments for pneumonia, increasing hypoxic, moderate respiratory distress, medically necessary treatment will span 2 midnights. Inpatient status ? ? DS: Summary Hospital Course Hospital Course: Pt with long hx Pulmonary obsstruction present to ER with incraseing [place], mild CHF, clinical pneumonia despite CXRm treated with diuretics, steroids, ab, frequent aeresols, Vst therapy. Pt slow to improve but did make naomi progress each day. Still with some [place] but much imp[roved from admission. Discused with pulmonology, no further addistion themykeIndy Casillas d/c to home to see his PCP and Dr Church in next week - medications see list Time Spent with Patient Time attestation: Total time spent providing and/or coordinating discharge services: Exam Constitutional Vital Signs, click to edit/add: Last Vital Signs Temp 97.3 F L 04/08/25 04:00 Pulse 54 L 04/08/25 05:12 Resp 20 04/08/25 05:12 BP 117/72 04/08/25 04:00 Pulse Ox 95 04/08/25 05:12 O2 Del Method Home BIPAP / CPAP 04/08/25 05:12 O2 Flow Rate 2 04/08/25 05:12 FiO2 2 04/04/25 04:06 Documenting provider has reviewed patient's vital signs: yes Common normals: no apparent distress (Conversational dyspnea essentially resolved) Chest Common normals: inspection of chest normal Respiratory Common normals: abnormal respiratory effort (Minimal conversational dyspnea improved) Auscultation: rhonchi (More pronounced this morning but better air exchange) and diminished lung sounds (Much better air exchange today) Cardio Common normals: regular rate and regular rhythm GI Common normals: negative for Normal to inspection, nondistended, normoactive bowel sounds present (Obese) DS: Data Data Completed and Pending Labs on day of discharge: Labs from last 24 hours 04/08/25 04/07/25 04/07/25 06:00 21:42 18:23 WBC 6.9 RBC 4.98 Hgb 13.9 L Hct 44.8 MCV 90.0 MCH 27.9 MCHC 31.0 RDW 21.7 H Plt Count 141 L MPV 10.2 Neut % (Auto) 66.3 Lymph % (Auto) 23.2 [place] % (Auto) 9.1 Eos % (Auto) 0.3 L Baso % (Auto) 0.1 L Neut # (Auto) 4.6 Lymph # (Auto) 1.6 [place] # (Auto) 0.6 Eos # (Auto) 0.0 Baso # (Auto) 0.0 Abs Immat Gran (auto) 0.07 H Imm/Tot Granulo (auto) 1.0 H Sodium 141 Potassium 3.7 Chloride 103 Carbon Dioxide 35.5 H Anion Gap 6.2 BUN 26.0 H Creatinine 0.58 L Est GFR ( Amer) >60 Est GFR (Non-Af Amer) >60 BUN/Creatinine Ratio 44.8 Glucose 126 H Calcium 8.4 L Magnesium Troponin I High Sens NT-Pro-B Natriuret Pep POC Glucose 176 H 199 H 04/07/25 04/07/25 04/07/25 15:38 11:03 07:52 WBC 6.9 RBC 5.23 Hgb 14.5 Hct 47.0 MCV 89.9 MCH 27.7 MCHC 30.9 RDW 21.9 H Plt Count 145 L MPV 10.0 Neut % (Auto) 85.7 H Lymph % (Auto) 10.2 L [place] % (Auto) 3.6 Eos % (Auto) 0.0 L Baso % (Auto) 0.1 L Neut # (Auto) 5.9 Lymph # (Auto) 0.7 L [place] # (Auto) 0.3 Eos # (Auto) 0.0 Baso # (Auto) 0.0 Abs Immat Gran (auto) 0.03 Imm/Tot Granulo (auto) 0.4 Sodium 144 Potassium 3.9 Chloride 104 Carbon Dioxide 34.5 H Anion Gap 9.4 BUN 33.0 H Creatinine 0.52 L Est GFR ( Amer) >60 Est GFR (Non-Af Amer) >60 BUN/Creatinine Ratio 63.5 Glucose 201 H Calcium 8.5 Magnesium 2.1 Troponin I High Sens 6.6 NT-Pro-B Natriuret Pep 195.0 POC Glucose 270 H 245 H 04/07/25 07:48 WBC RBC Hgb Hct MCV MCH MCHC RDW Plt Count MPV Neut % (Auto) Lymph % (Auto) [place] % (Auto) Eos % (Auto) Baso % (Auto) Neut # (Auto) Lymph # (Auto) [place] # (Auto) Eos # (Auto) Baso # (Auto) Abs Immat Gran (auto) Imm/Tot Granulo (auto) Sodium Potassium Chloride Carbon Dioxide Anion Gap BUN Creatinine Est GFR ( Amer) Est GFR (Non-Af Amer) BUN/Creatinine Ratio Glucose Calcium Magnesium Troponin I High Sens NT-Pro-B Natriuret Pep POC Glucose 228 H Discharge Plan Discharge Disposition: Home, Self-Care Condition: Fair Discharge Medications: New Entresto 24-26 mg Tablet 1 tab PO BID Qty: 60 11RF azithromycin 500 mg tablet 500 mg PO DAILY 3 Days Qty: 3 0RF prednisone 10 mg tablet 30 mg PO DAILY Qty: 20 0RF Rx Instructions: 3/day for 3 days, 2/day for 3 days, 1/day for 3 days, 1/2 /day for 4 days fluconazole [Diflucan] 100 mg tablet 100 mg PO DAILY Qty: 10 0RF Continued atorvastatin 40 mg tablet 40 mg PO DAILY doxycycline hyclate 100 mg capsule 100 mg PO BID Patient Comments: 04/01/25-04/10/25 aspirin 81 mg tablet,delayed release (DR/EC) 81 mg PO DAILY allopurinol 300 mg tablet 300 mg PO .once daily furosemide 20 mg tablet 20 mg PO DAILY Entresto 24-26 mg tablet 0.5 tab PO BID alprazolam 0.5 mg tablet 0.25 mg PO BEDTIME metoprolol succinate 25 mg tablet extended release 24 hr 25 mg PO DAILY midodrine 10 mg tablet 10 mg PO TIDWM glipizide 2.5 mg tablet extended release 24hr 2.5 mg PO DAILY ipratropium bromide 21 mcg (0.03 %) spray,non-aerosol 2 spray INTRANASAL BID ipratropium-albuterol 0.5 mg-3 mg(2.5 mg base)/3 mL solution for nebulization 3 ml INHALATION Q8H pantoprazole 40 mg tablet,delayed release (DR/EC) 40 mg PO DAILY tamsulosin 0.4 mg capsule 0.8 mg PO DAILY trazodone 50 mg tablet 50 mg PO BEDTIME cetirizine 10 mg tablet 10 mg PO DAILY citalopram 20 mg tablet 20 mg PO DAILY albuterol sulfate 2.5 mg /3 mL (0.083 %) solution for nebulization 2.5 mg inhalation Q4H PRN (Reason: shortness of breath or wheezing) Activity: increase activity as tolerated and wear oxygen at all times Diet: regular diet Print Language: Swedish Patient Instructions: Pneumonia (DC) Forms: Portal Instructions Follow Up Appointments: April 15 @ 10:15am with Dr. Winkler [phone] Keep scheduled appt. with Dr. Church for next week.
[2025-04-08] MEDS: FLUCONAZOLE 100 MG TABLET PO (08:43)
[2025-04-08] MEDS: MIDODRINE HCL 5 MG TABLET 10 MG PO ×2 (08:43→12:13)
[2025-04-08] MEDS: TAMSULOSIN HCL 0.4 MG CAPSULE 0.8 MG PO (08:44)
[2025-04-08] MEDS: glipiZIDE 2.5 MG TAB.ER.24 PO (08:44)
[2025-04-08] MEDS: MAGNESIUM OXIDE 400 MG TABLET PO (08:44)
[2025-04-08] MEDS: PREDNISONE 20 MG TABLET 40 MG PO (08:44)
[2025-04-08] MEDS: GUAIFENESIN 600 MG TAB.ER.12H 1200 MG PO (08:44)
[2025-04-08] MEDS: PANTOPRAZOLE SODIUM 40 MG TABLET.DR PO (08:44)
[2025-04-08] MEDS: ALLOPURINOL 300 MG TABLET PO (08:45)
[2025-04-08] MEDS: ATORVASTATIN CALCIUM 40 MG TABLET PO (08:45)
[2025-04-08] MEDS: ASPIRIN 81 MG TABLET.DR PO (08:45)
[2025-04-08] MEDS: SACUBITRIL/VALSARTAN 24 MG-26 MG TABLET 1 TAB PO (08:45)
[2025-04-08] MEDS: CETIRIZINE HCL 10 MG TABLET PO (08:45)
[2025-04-08] MEDS: METOPROLOL SUCCINATE 25 MG TAB.ER.24H PO (08:45)
[2025-04-08] MEDS: ENOXAPARIN SODIUM 40 MG/0.4 ML SYRINGE SUBQ (08:45)
[2025-04-08] MEDS: CITALOPRAM HYDROBROMIDE 20 MG TABLET PO (08:45)
[2025-04-08] MEDS: FUROSEMIDE 20 MG TABLET PO (08:45)
[2025-04-08 08:52] VITALS: BP 118/76; PULSE 81; TEMP 36.6; O2SAT 95
--- NOTE | 2025-04-08 10:56 | REH.PTDLY ---
Physical Therapy Daily Note PT Daily Note/Assess Start: 04/05/25 09:20 Freq: Status: Active Protocol: Document 04/08/25 10:30 SAM (Rec: 04/08/25 10:55 KSTEINJESSI [id number]) Physical Therapy Daily Note/Assessment Time In 10:13 Time Out 10:29 Subjective Pt reports being tired today. Plan is to be DC to home today pt states. Therapeutic Exercise 9 Minutes (minutes) Therapeutic Exercise 1 Units Therapeutic Exercise Instructed in B LE seated exs 10-15x ea with LAQ, Treatment marching, hip abd, and hip add squeezes. Standing exs 10x ea with squats and marching, pt becoming fatigued with standing exs. Therapeutic Activity 7 Minutes (minutes) Therapeutic Activity 0 Units Therapeutic Activity Sit to stand transfers with pt using 1 hand on chair Comments and 1 hand on locked 4 WW, CGA. Pt unable to push off with both hands from chair due to low chair height. Pt has higher chairs at home he states. Gait training with 2 L of O2 60 feet with pt request to stay in room today. Pt fatigues easily today, SpO2 stays at 93% during entire rx. Total Therapy 16 Minutes Total Physical 1 Therapy Units Daily Note Summary Pt more tired today limiting gait, SpO2 maintains at 93 % during rx which is improved from previous day. Pt is planning on going home later today.
[2025-04-08] MEDS: ACETYLCYSTEINE 400 MG/4 ML VIAL 200 MG IH (11:14)
[2025-04-08] MEDS: INSULIN ASPART 300 UNIT/3 ML PEN SUBQ (12:14)
[2025-04-08 12:23] LABS: Glucometer 203 mg/dL (74-106)
--- NOTE | 2025-04-09 13:32 | CM.DCFOLLOWU ---
Person spoke with:patient How are you feeling?well How is your pain?none Did you understand your discharge instructions?yes Do you have any questions about your discharge instructions? no Were you given any prescriptions at discharge?yes Were you able to get your prescriptions filled?yes Do you understand how to take your medications as ordered? yes Do you have any questions about your follow up appointment and do you plan to keep your follow up appointment? no questions, reviewed follow ups Is there anything else that you would like to discuss?no Questions/Comments/Concerns/Other:none
== END 2025-04-08 15:44 | disposition home or self-care (01) | DRG 193 ==
LOC: ER 04-04 01:46 → MS 04-04 03:32
PROVIDERS: Internal Medicine; Registered Nurse; Admitting Provider Family Medicine; Emergency Provider Emergency Medicine; PCP Family Medicine; Visit Provider Family Medicine
DX: J18.9 Pneumonia, unspecified organism (principal); J96.21 Acute and chronic respiratory failure with hypoxia; I50.42 Chronic combined systolic (congestive) and diastolic (congestive) heart failure; J44.0 Chronic obstructive pulmonary disease with (acute) lower respiratory infection; J44.1 Chronic obstructive pulmonary disease with (acute) exacerbation; J96.12 Chronic respiratory failure with hypercapnia; J98.6 Disorders of diaphragm; D69.6 Thrombocytopenia, unspecified; E83.42 Hypomagnesemia; E11.9 Type 2 diabetes mellitus without complications; G47.30 Sleep apnea, unspecified; G71.00 Muscular dystrophy, unspecified; I35.0 Nonrheumatic aortic (valve) stenosis; E87.70 Fluid overload, unspecified; E66.9 Obesity, unspecified; E89.2 Postprocedural hypoparathyroidism; Z87.442 Personal history of urinary calculi; Z87.891 Personal history of nicotine dependence; Z79.82 Long term (current) use of aspirin; Z79.84 Long term (current) use of oral hypoglycemic drugs; Z79.899 Other long term (current) drug therapy; Z87.01 Personal history of pneumonia (recurrent); Z99.81 Dependence on supplemental oxygen; J98.4 Other disorders of lung
CPT/HCPCS: 36415; 71046; 80048; 80053; 82375; 82805; 82948; 83050; 83605; 83735; 83880; 84484; 85025; 86140; 87070; 87205; 87804; 87811; 94640; 94667; 94668; 94761; 96365; 96366; 97110; 97162; 97165; 97530; 97535; 99285; J0456; J0457; J1650; J1938; J2919; J7512

== ENCOUNTER 2025-06-04 06:57 | Outpatient (RCR) | payer MEDICARE, SELFPAY ==
--- NOTE | 2025-04-23 13:18 | CR1_ITS ---
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 Electronically Signed On 04-28-2025 18:02:29 EDT by Nelson Church
--- NOTE | 2025-04-28 10:48 | CR1_ITS ---
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 He becomes easily fatigued. Recommend further tailoring the patient's program in order to account for these conditions. Electronically Signed On 04-28-2025 18:05:30 EDT by Nelson Church
--- NOTE | 2025-05-19 08:46 | CR1_ITS ---
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 Interpretive Statements Patient may continue cardiac rehab as outlined in the treatment plan. Electronically Signed On 05-23-2025 10:25:27 EDT by CHRISTOPHER LÓPEZ M.D.
--- NOTE | 2025-06-11 09:12 | PC.NURSE ---
Hayes had a heart cath last week, and is planned to have a TAVR and possibly more intervention in the near future. At this time we are discharging him from pulmonary and will readmit him when he is cleared to return as a cardiac rehab patient
== END 2025-06-11 09:14 | disposition home or self-care (01) ==
LOC: CR 06:57
PROVIDERS: PCP Family Medicine; Visit Provider Internal Medicine
DX: J41.1 Mucopurulent chronic bronchitis (principal); J98.4 Other disorders of lung; J96.12 Chronic respiratory failure with hypercapnia; J96.11 Chronic respiratory failure with hypoxia; J98.6 Disorders of diaphragm; G71.02 Facioscapulohumeral muscular dystrophy
CPT/HCPCS: 93798; G0239